=== PATIENT | female | born 1970 | race Caucasian/White ===

== ENCOUNTER 2023-02-22 14:06 | Outpatient (CLI) | payer BC, SELFPAY ==
[2023-02-22 14:36] LABS: PHA INR Fingerstick 6.2 (0.9-1.1)
== END 2023-02-22 14:38 ==
LOC: ACC 14:08
PROVIDERS: PCP Emergency Medicine; Visit Provider Emergency Medicine
DX: Z51.81 Encounter for therapeutic drug level monitoring (principal); Z79.01 Long term (current) use of anticoagulants; Z95.2 Presence of prosthetic heart valve
CPT/HCPCS: 85610; G0463

== ENCOUNTER 2023-03-03 15:40 | Outpatient (CLI) | payer BC, SELFPAY ==
[2023-03-03 16:12] LABS: PHA INR Fingerstick 2.3 (0.9-1.1)
== END 2023-03-03 16:17 ==
LOC: ACC 15:41
PROVIDERS: PCP Emergency Medicine; Visit Provider Emergency Medicine
DX: Z79.01 Long term (current) use of anticoagulants (principal)
CPT/HCPCS: 85610; 99211; G0463

== ENCOUNTER 2023-03-04 02:46 | Inpatient (IN) | payer BC, SELFPAY ==
[2023-03-04] VITALS (7 sets, daily range): BP systolic 122–154; BP diastolic 76–105; PULSE 87–100; RESP 14–18; TEMP 36.4–37; O2SAT 97–100; BMI 36.1; BMI 28.3
--- NOTE | 2023-03-04 03:06 | XR_ITS ---
PROCEDURE INFORMATION: Exam: XR Chest Exam date and time: 03/04/2023 3:16 AM Age: 52 years old Clinical indication: Shortness of breath; Prior surgery; Surgery date: 6+ months; Surgery type: Open heart/defibrillator; Additional info: SOA, volume overload TECHNIQUE: Imaging protocol: Radiologic exam of the chest. Views: 1 view. COMPARISON: No relevant prior studies available. FINDINGS: Tubes, catheters and devices: Left-sided single lead AICD. Overlying monitoring leads. Lungs: Lungs clear. Pleural spaces: No pleural thickening. Heart/Mediastinum: Valvular annuloplasty ring. Cardiac silhouette prominent but probably within normal range given the radiographic projection. Bones/joints: Sternotomy wires. Bony demineralization. IMPRESSION: No acute findings.
--- NOTE | 2023-03-04 03:17 | ECG_ITS ---
APPROVED REPORT Exam: Resting ECG HR:87 bpm ECG Measurements Heart Rate 87 AXES CA 156 P 70 QRSd 126 QRS 28 QT 393 T 83 QTc 438 Conclusion SINUS RHYTHM Incomplete LBBB Late R wave progression ABNORMAL ECG UNCONFIRMED REPORT Electronically signed by : Tommy John MD 03/04/2023 06:38:04
[2023-03-04 03:27] LABS: Basophils # 0.1 K/mm3 (0-0.2); Basophils % 0.6 % (0.1-2.0); Eosinophils # 0.1 K/mm3 (0.0-0.4); Eosinophils % 1.3 % (0.1-12.0); Hematocrit 37.2 % (37.0-47.0); Hemoglobin 11.7 g/dL (12.2-16.2); Mean Corpuscular HGB Conc 31.5 g/dL (31.8-35.4); Mean Corpuscular Hemoglobin 27.4 pg (27.0-31.2); Mean Corpuscular Volume 87.2 fl (81-99); Mean Platelet Volume 10.1 fl (7.4-10.4); Monocytes # 0.5 K/mm3 (0.1-1.0); Monocytes % 4.8 % (1.7-9.3); Neutrophils # 7.8 K/mm3 (1.8-7.8); Neutrophils % 82.4 % (37.0-80.0); Platelet Count 224 K/mm3 (142-424); Red Blood Count 4.26 M/mm3 (4.20-5.40); Red Cell Distribution Width 20.4 % (11.5-17.5); White Blood Count 9.4 K/mm3 (4.8-10.8)
[2023-03-04 03:32] LABS: Alanine Aminotransferase 87 U/L (12-78); Albumin Level 3.5 g/dl (3.5-5.0); Albumin/Globulin Ratio 1.1 (1.1-1.8); Alkaline Phosphatase 141 U/L (38-126); Anion Gap 17.3 mEq/L (5-15); Aspartate Amino Transferase 133 U/L (14-36); Bilirubin,Total 1.5 mg/dl (0.2-1.3); Blood Urea Nitrogen 77 mg/dl (7-17); Carbon Dioxide 24 mmol/L (22.0-30.0); Chloride 94 mmol/L (98-107); Creatinine Clearance Estimated 26 mL/min (50-200); Estimated Glomerular Filt Rate 12 ml/min (>60); GFR (African American) 14 ML/MIN (>60); Globulin 3.2 g/dL (1.3-3.2); Glucose 126 mg/dl (74-100); Potassium 5.3 mmoL/L (3.5-5.1); Prothrombin Time 18.7 seconds (10.1-12.5); Sodium 130 mmol/L (136-145); Total Protein,Serum 6.7 g/dl (6.3-8.2)
--- NOTE | 2023-03-04 03:32 | HMH.EDGENADL ---
Discharge Plan Disposition Chief Complaint: Shortness of Breath/Dyspnea Discharge ED Provider: Danial Wolf General Adult HPI General Chief complaint: Shortness of Breath/Dyspnea Stated complaint: soa, swollen Time Seen by Provider: 03/04/23 02:50 Mode of Arrival: Wheelchair Source of Information: Patient Limitations: No Limitations Description of Symptoms (Recalled from ER Triage Doc. by RN): pt reports feeling like she can not breathe. pt c/o shortness of breathe due to her CHF and kidney failure. pt reports that she is unable to sleep and just cant take it anymore. History of Present Illness HPI narrative: 52-year-old female history of COPD, ESRD, CHF with reported ejection fraction 20%, prior mechanical mitral valve replacement on warfarin presents with worsening shortness of breath and edema. Patient reports she was seen at [place] 1 week ago and diagnosed with a right-sided pneumonia for which she has been taking doxycycline as prescribed. Patient had a right upper extremity AV fistula procedure on Wednesday at [facility]. She is unsure what her baseline creatinine is. She reports that she has had tens of pounds of weight gain over the last week. She is still having urine output. Denies fevers chills or chest pain. Has been taking Bumex as prescribed. Related Data Home Medications Medication Instructions Recorded Confirmed albuterol sulfate 90 mcg/actuation inhalation 02/17/23 03/03/23 aerosol inhaler (Ventolin HFA) amiodarone 200 mg tablet 200 mg PO 02/17/23 03/03/23 aspirin 81 mg tablet,delayed 81 mg PO 02/17/23 03/03/23 release atorvastatin 40 mg tablet 40 mg PO 02/17/23 03/03/23 bumetanide 1 mg tablet 1 mg PO 02/17/23 03/03/23 fluticasone propionate 50 intranasal 02/17/23 03/03/23 mcg/actuation nasal spray,suspension metolazone 2.5 mg tablet 2.5 mg PO 02/17/23 03/03/23 metoprolol succinate 25 mg mg PO 02/17/23 03/03/23 tablet,extended release 24 hr pantoprazole 40 mg tablet,delayed mg PO 02/17/23 03/03/23 release ropinirole 4 mg tablet 4 mg PO 02/17/23 03/03/23 spironolactone 25 mg tablet 25 mg PO 02/17/23 03/03/23 trazodone 150 mg tablet 150 mg PO 02/17/23 03/03/23 warfarin 5 mg tablet 5 mg PO 02/17/23 03/03/23 bumetanide 2 mg tablet 2 mg PO .COMPLEX 03/03/23 03/03/23 doxycycline hyclate 100 mg capsule 100 mg PO BID 03/03/23 03/03/23 hydrocodone 5 mg-acetaminophen 325 1 tab PO Q8H 03/03/23 03/03/23 mg tablet magnesium oxide 400 mg (241.3 mg 400 mg PO DAILY 03/03/23 03/03/23 magnesium) tablet potassium chloride 20 mEq 20 meq PO DAILY PRN 03/03/23 03/03/23 tablet,extended release(part/cryst) spironolactone 50 mg tablet 50 mg PO DAILY 03/03/23 03/03/23 Previous Rx's Medication Instructions Recorded enoxaparin 80 mg/0.8 mL 75 mg (0.75 mL) SQ BID 4 days #6 mL 02/17/23 subcutaneous syringe (Lovenox) Allergies Allergy/AdvReac Type Severity Reaction Status Date / Time Codeine Allergy Unknown Uncoded 02/17/23 14:44 [facility] Disclaimer: The information contained in this section may have been updated after the patient was seen, as this information can be updated by other users. Medical History Asthma COPD (chronic obstructive pulmonary disease) Disorder of kidney Heart disease Restless leg syndrome Surgical History H/O: hysterectomy History of cardiac defibrillator placement History of open heart surgery pt has had 2 of these - 2020 Mechanical heart valve present Social History Smoking Status: Former smoker alcohol intake: never substance use type: marijuana current occupational status: employed Travel in the last 8 weeks: None ROS Obtained: Yes All systems reviewed & no additional complaints except as documented Physical Exam General General appearance: alert and in no apparent distress Head He
--- NOTE | 2023-03-04 03:37 | PC.NURSE ---
Critical lab results call to Dr. Wolf by lab staff. Critical result repeated back for confirmation
[2023-03-04 03:41] LABS: NT Pro Brain Natriuretic Pep. > 30000 pg/mL (0-125)
--- NOTE | 2023-03-04 03:42 | PC.NURSE ---
ED doctor on phone with hospitalist at this time
--- NOTE | 2023-03-04 03:43 | PC.NURSE ---
on phone with hospitalist
--- NOTE | 2023-03-04 05:09 | CA_ITS ---
APPROVED REPORT EXAM: Comprehensive 2D, Doppler, and color-flow Echocardiogram [facility] Consultant: Heather Sanchez CRT Ht: 5 ft 6 in Wt: 224lbs BSA: 2.10 BP: 126/95 mmHg Indications: COPD, Shortness of Breath, Peripheral Edema, Aug 2019 mv repair,October 2019 MVR, AICD 2020. ESRD, marijuana use, gained 10 lb in a week, EF 20% per pt on prev echo 2D Dimensions LVOT 1.95 cm (M/F) 1.5-2.5 LA Volume 75.90 mL LA Volume Index 36.14 mL/m2 (M/F) 16-34 M-Mode Dimensions RVDd 2.13 cm (0.9-2.6) LA Diam 5.09 cm (1.9-4.0) LVDd 6.57 cm (3.5-5.7) Ao Diam 3.77 cm (2.0-3.7) LVDs 5.92 cm (3.5-5.7) IVSd 1.71 cm (0.6-1.1) PWd 0.91 cm (0.6-1.1) EF (Teich) 21.10% FS 9.90% EDV (Teich) 221.30 mL TAPSE 1.13 (<1.7) ESV (Teich) 174.60 mL LV Diastology E Decel Time 150.00 (160-240 msec) E/A Ratio 2.6 MED E' 3.40 (< 7 cm/sec) MED A' 7.30 cm/s E'/MED E' Ratio 42.15 (>14) LAT E' 3.90 (<10 cm/sec) LAT A' 5.10 cm/s E/LAT E' Ratio 36.74 (>14) Aortic Valve AI PHT 570.00 ms AO Peak GR. 4.90 mmHg Mitral Valve MV E Max Sebastien. 143.00 (40-130 cm/s) MV A Velocity 55.00 (40-130 cm/s) E/A Ratio 2.63 MV Decel. Time 150.00 (160-240 ms) MV Mean Gr. 6.10 (<2mmHg) MV PHT 44.00 ms Pulmonary Valve PV Peak Velocity 197.00 (50-150 cm/s) Tricuspid Valve TR P. Velocity 315.00 cm/s RAP Estimate 10.00 mmHg RVSP 49.80 mmHg Left Ventricle Left ventricle is severely dilated. Left ventricular systolic function is severely decreased. There is normal left ventricular wall thickness. There is severe global hypokinesis present. There is grade III diastolic dysfunction. LVEF is 15-20%. Right Ventricle Right ventricle is mildly dilated. Right ventricle is mildly hypokinetic. There is a device lead in the RV. Atria Left atrium is mildly dilated. The right atrium size is mildly dilated. There is no Doppler evidence of interatrial shunt. Aortic Valve The aortic valve is normal in structure. There is no aortic valvular stenosis. No aortic regurgitation is present. Mitral Valve s/p mechanical mitral valve replacement. The mechanical valve is well-seated. The leaflets of the MV are difficult to visualize due to significant artifact, cannot conclusively evaluate leaflet mobility or thrombi/masses. There is mild mitral stenosis (mean MV gradient 6 mmHg at HR=90 bpm). Max E velocity 1.5 m/s. PHT=65 ms. Trace mitral regurgitation. Tricuspid Valve The tricuspid valve leaflets are thin and pliable. Mild tricuspid regurgitation. RVSP is 50-55 mmHg. Pulmonic Valve The pulmonary valve is normal in structure. Mild pulmonic regurgitation. Great Vessels The aortic root is normal in size. The ascending aorta is not wel visualized. The IVC is normal size but < 50% with respirophasic variation. RA pressure is estimated at 8 mmHg. Pericardium There is no pericardial effusion. Other Information Study Quality: Fair Conclusion Severe reduction in LV systolic function (LVEF 15%) Grade III diastolic dysfunction. Mild RV dilation with mild reduction in RV function. s/p mechanical MVR, difficult to evaluate MVR leaflet mobility or r/o masses or thrombi due to artifact. Mild MS. Trace MR. Mild TR Elevated RVSP 50-55 mmHg. Electronically signed by : Uzma Orellana, 03/04/2023 19:21:28
--- NOTE | 2023-03-04 05:13 | EXP.HP ---
History of Present Illness *Admission Date: 03/04/23 *Reason for visit:: chf exacerbation *History of present illness: 52 year old female presented to the ED for c/o lower extremity edema PMHX of COPD, ESRD, CHF with reported ejection fraction 20%, prior mechanical mitral valve replacement on warfarin presents with worsening shortness of breath and edema. Patient reports she was seen at [facility] 1 week ago and diagnosed with a right-sided pneumonia for which she has been taking doxycycline as prescribed. Patient had a right upper extremity AV fistula procedure on Wednesday at [facility]. Pt currently does not do dialysis. She states fistula was placed incase dialysis needed to be started. Creatinine is 4 upon admission. Pt states that is normal for [place] [address]. She is still having urine output with px bumex. Is to see Dr. Irizarry this morning for outpatient visit. She received 80 of lasix in the ED and had over 400 mL output. The ED physician spoke with the hospitalist team for further medical management. The patient was admitted to the medical floor in no acute distress. She has + 3 pitting edema. She has an echo pending and will have cardiology consult placed. [facility] Disclaimer: The information contained in this section may have been updated after the patient was seen, as this information can be updated by other users. Medical History Asthma COPD (chronic obstructive pulmonary disease) Disorder of kidney Heart disease Restless leg syndrome Surgical History H/O: hysterectomy History of cardiac defibrillator placement History of open heart surgery pt has had 2 of these - 2020 Mechanical heart valve present Social History (Updated 03/04/23 @ 05:34 by Zaira Woodward RN) Smoking Status: Former smoker alcohol intake: never substance use type: marijuana current occupational status: employed Travel in the last 8 weeks: None Review of Systems *Cardiovascular Cardiovascular: Reports system reviewed and no additional complaints, except as documented and Reports leg edema *Respiratory Respiratory: Reports system reviewed and no additional complaints, except as documented *Gastrointestinal Gastrointestinal: Reports system reviewed and no additional complaints, except as documented *Genitourinary Genitourinary: Reports system reviewed and no additional complaints, except as documented *Musculoskeletal Musculoskeletal: Reports limited range of motion and Reports myalgias *Neurologic Neurologic: Reports system reviewed and no additional complaints, except as documented Meds Home Medications and Allergies Home Medications Medication Instructions Recorded Confirmed Type albuterol sulfate 90 mcg/actuation 1 puff inhalation Q4-6H PRN 02/17/23 03/04/23 History aerosol inhaler (Ventolin HFA) Shortness Of Breath Or Wheezing amiodarone 200 mg tablet 200 mg PO DAILY Heart Rhythm 02/17/23 03/04/23 History aspirin 81 mg tablet,delayed 81 mg PO DAILY Blood Thinner 02/17/23 03/04/23 History release atorvastatin 40 mg tablet 40 mg PO DAILY Cholesterol 02/17/23 03/04/23 History fluticasone propionate 50 1 spray intranasal DAILY Allergies 02/17/23 03/04/23 History mcg/actuation nasal spray,suspension metolazone 2.5 mg tablet 2.5 mg PO DAILY Fluid / Swelling 02/17/23 03/04/23 History metoprolol succinate 25 mg 12.5 mg PO DAILY Heart Rate 02/17/23 03/04/23 History tablet,extended release 24 hr pantoprazole 40 mg tablet,delayed 40 mg PO DAILY Acid Reflux 02/17/23 03/04/23 History release ropinirole 4 mg tablet 4 mg PO HS Restless Leg Syndrome 02/17/23 03/04/23 History trazodone 150 mg tablet 150 mg PO HS Sleep 02/17/23 03/04/23 History warfarin 5 mg tablet 2.5 mg PO MOWEFR Blood 02/17/23 03/04/23 History Thinner/Mechanical Valve bumetanide 2 mg tablet 2 mg PO .COMPLEX Fluid / Swelling 08
--- NOTE | 2023-03-04 05:38 | PC.NURSE ---
Pt states she is unsure of her home medications and dosages, family member in room states he will go get home med list that is at their home this am.
--- NOTE | 2023-03-04 07:46 | HMH.PHAINT1 ---
Pharmacy Intervention Comments: Medication history complete, medications were verified with fill history. - Kelly Reese, PharmD candidate 2023
[2023-03-04 09:29] LABS: Chloride 93 mmol/L (98-107); Potassium 4.6 mmoL/L (3.5-5.1); Sodium 128 mmol/L (136-145)
[2023-03-04 09:32] LABS: Anion Gap 23.6 mEq/L (5-15); Blood Urea Nitrogen 78 mg/dl (7-17); Calcium 8.9 mg/dl (8.4-10.2); Carbon Dioxide 16 mmol/L (22.0-30.0); Creatinine Clearance Estimated 20 mL/min (50-200); Estimated Glomerular Filt Rate 11 ml/min (>60); GFR (African American) 14 ML/MIN (>60); Glucose 171 mg/dl (74-100)
[2023-03-04 10:08] LABS: NT Pro Brain Natriuretic Pep. 47100 pg/mL (0-125)
--- NOTE | 2023-03-04 10:22 | PC.NURSE ---
Medical records requested from [facility]
--- NOTE | 2023-03-04 10:38 | CA_ITS ---
FINAL REPORT CLINICAL HISTORY: S/P AV FISTULA PLACEMENT RUE WEDNESDAY,BRUISING AND PAIN RUE,PT HAS REDUCED EF COMPARISON: None FINDINGS: Spectral and Doppler waveform evaluations of the right arm was performed. Spectral analysis was performed. There is diminished flow within the fistula concerning for partial or complete thrombus. There is visualized thrombus within the fistula. IMPRESSION: Findings concerning for partial or complete thrombus with partly visualized thrombus within the fistula. Angiography recommended for further evaluation. Reviewed, Interpreted and Dictated by Lucio Fairchild MD Transcribed by Viry Hernandez Authenticated and [facility]
--- NOTE | 2023-03-04 10:59 | EXP.CARD.CON ---
History of Present Illness History of Present Illness Consult date: 03/04/23 Requesting physician: Nolan Colon Consult reason: shortness of breath Chief complaint: Volume overload, chf, esrd History of present illness: 52 year old female with past medical hx of of COPD, CAD, ESRD, HFrEF of 20%, prior mechanical mitral valve replacement on warfarin presented to [facility] hospital with complaint of with worsening shortness of breath and edema. Patient reports she was seen at [place] 1 week ago and diagnosed with a right-sided pneumonia for which she has been taking doxycycline as prescribed. Patient had a right upper extremity AV fistula procedure on Wednesday at [place]. Pt currently does not do dialysis. She states fistula was placed incase dialysis needed to be started. Creatinine is 4 upon admission. Pt states that is normal for [place] [address]. She is still having urine output with px bumex. Is to see Dr. Irizarry this morning for outpatient visit. She received 80 of lasix in the ED and had over 400 mL output. The ED physician spoke with the hospitalist team for further medical management. [facility] Disclaimer: The information contained in this section may have been updated after the patient was seen, as this information can be updated by other users. Medical History Asthma COPD (chronic obstructive pulmonary disease) Disorder of kidney Heart disease Restless leg syndrome Surgical History H/O: hysterectomy History of cardiac defibrillator placement History of open heart surgery pt has had 2 of these - 2020 Mechanical heart valve present Social History (Updated 03/04/23 @ 05:34 by Zaira Woodward RN) Smoking Status: Former smoker alcohol intake: never substance use type: marijuana current occupational status: employed Travel in the last 8 weeks: None Review of Systems Review of Systems Review of systems:: pertinent systems reviewed and negative unless documented below *Cardiovascular Cardiovascular: Reports dyspnea *Respiratory Respiratory: Reports dyspnea *Musculoskeletal Comments: weakness *Neurologic Neurologic: Reports system reviewed and no additional complaints, except as documented Exam Data for Last 24 hours Vital signs and Labs for Last 24 Hours: Temp Pulse Resp BP Pulse Ox O2 Del Method 98.4 F 94 H 18 154/100 H 98 Room Air 03/04/23 08:00 03/04/23 08:00 03/04/23 08:00 03/04/23 08:00 03/04/23 08:00 03/04/23 10:01 Laboratory Results - last 24 hr 03/04/23 03:02: WBC 9.4, RBC 4.26, Hgb 11.7 L, Hct 37.2, MCV 87.2, MCH 27.4, MCHC 31.5 L, RDW 20.4 H, Plt Count 224, MPV 10.1, Neut % (Auto) 82.4 H, Lymph % (Auto) 11.0, Cavalier % (Auto) 4.8, Eos % (Auto) 1.3, Baso % (Auto) 0.6, Neut # (Auto) 7.8, Lymph # (Auto) 1.0, Cavalier # (Auto) 0.5, Eos # (Auto) 0.1, Baso # (Auto) 0.1, PT 18.7 H, INR 1.80 H, Sodium 130 L, Potassium 5.3 H, Chloride 94 L, Carbon Dioxide 24, Anion Gap 17.3 H, BUN 77 H, Creatinine 4.00 H, Estimated Creat Clear 26, Estimated GFR 12 L*, Est GFR ( Amer) 14 L*, Glucose 126 H, Calcium 9.0, Total Bilirubin 1.5 H, AST 133 H, ALT 87 H, Alkaline Phosphatase 141 H, NT-Pro-B Natriuret Pep > 27724 H, Total Protein 6.7, Albumin 3.5, Globulin 3.2, Albumin/Globulin Ratio 1.1 03/04/23 08:55: Sodium 128 L, Potassium 4.6, Chloride 93 L, Carbon Dioxide 16 L, Anion Gap 23.6 H, BUN 78 H, Creatinine 4.10 H, Estimated Creat Clear 20, Estimated GFR 11 L*, Est GFR ( Amer) 14 L*, Glucose 171 H D, Calcium 8.9, NT-Pro-B Natriuret Pep 66608 H I & O for Last 24 hours: Intake & Output 03/01/23 03/02/23 03/03/23 03/04/23 23:59 23:59 23:59 23:59 Weight 176 lb 5 oz Constitutional Constitutional: no acute distress *Routine Respiratory Exam Respiratory: Present CTA bilaterally and symmetric chest movement *Routine Cardiovascular Exam Cardiovascular: Present RRR, N
[2023-03-04 11:42] LABS: Basophils % 0.4 % (0.1-2.0); Eosinophils # 0.1 K/mm3 (0.0-0.4); Eosinophils % 0.7 % (0.1-12.0); Hemoglobin 12.3 g/dL (12.2-16.2); Lymphocytes # 0.8 K/mm3 (0.7-4.5); Lymphocytes % 8.3 % (10-50); Mean Corpuscular HGB Conc 32.3 g/dL (31.8-35.4); Mean Corpuscular Hemoglobin 28.6 pg (27.0-31.2); Mean Corpuscular Volume 88.5 fl (81-99); Mean Platelet Volume 8.8 fl (7.4-10.4); Monocytes # 0.6 K/mm3 (0.1-1.0); Monocytes % 5.8 % (1.7-9.3); Neutrophils # 8.3 K/mm3 (1.8-7.8); Platelet Count 190 K/mm3 (142-424); Red Blood Count 4.29 M/mm3 (4.20-5.40); White Blood Count 9.8 K/mm3 (4.8-10.8)
[2023-03-04 11:45] LABS: MANUAL DIFFERENTIAL MANUAL DIFFERENTIAL (MANUAL DIFF)
[2023-03-04 12:03] LABS: Lymphocytes % 12 % (10-50); Monocytes % 1 % (2-9); Neutrophils % 87 % (42-76); Platelet Estimate Normal; RBC Morphology Normal; Total Cells Counted 100
--- NOTE | 2023-03-04 16:04 | EXP.DC.SUM ---
General Admission date:: 03/04/23 Discharge date: 03/04/23 HPI HPI HPI: 52 year old female presented to the ED for c/o lower extremity edema PMHX of COPD, ESRD, CHF with reported ejection fraction 20%, prior mechanical mitral valve replacement on warfarin presents with worsening shortness of breath and edema. Patient reports she was seen at [place] 1 week ago and diagnosed with a right-sided pneumonia for which she has been taking doxycycline as prescribed. Patient had a right upper extremity AV fistula procedure on Wednesday at [place]. Pt currently does not do dialysis. She states fistula was placed incase dialysis needed to be started. Creatinine is 4 upon admission. Pt states that is normal for [place] [address]. She is still having urine output with px bumex. Is to see Dr. Irizarry this morning for outpatient visit. She received 80 of lasix in the ED and had over 400 mL output. The ED physician spoke with the hospitalist team for further medical management. The patient was admitted to the medical floor in no acute distress. She has + 3 pitting edema. She has an echo pending and will have cardiology consult placed. Hospital Course Hospital Course Hospital Course: 52 year old female presented to the ED for c/o lower extremity edema. Patient reports she was seen at [place] 1 week ago and diagnosed with a right-sided pneumonia for which she has been taking doxycycline as prescribed. Patient had a right upper extremity AV fistula procedure on Wednesday at [place]. Pt currently does not do dialysis. She states fistula was placed incase dialysis needed to be started. Creatinine is 4 upon admission. Pt states that is normal for [place] [address]. She is still having urine output with px bumex. Was initiated on diuresis during admission. Had good response with over 800 cc of output. Subjectively feeling somewhat better. Ultrasound of right upper extremity performed showing thrombus in cephalic vein. Concern for thrombosis of AV fistula. Given complexity of patient's medical condition including her heart failure, mechanical valve, thrombosed AV fistula, volume overload, renal failure, [facility] was contacted for assistance in care and transfer. Patient graciously excepted. Will be transferred for further management. Problems addressed as follows: Acute on chronic HFrEF NYHA III Hx of MVR on Coumadin Moderate TR Grade III Diastolic Dysfunction -Presented with dyspnea on exertion and orthopnea. BNP severely elevated at 47,000. Found to have 3+ pitting edema on exam. Started on IV Lasix with 80 mg IV once followed by 40 mg twice daily. Patient had greater than 800 cc of urine output since admission. Echo obtained from [facility] as well as performed again at our institution. EF 15%. Preliminary at our facility showing EF approximately the same. Official read still pending. No comment at this time of thrombus on mechanical mitral valve. Cardiology was consulted and assisted with care during admission. Strict I's and O's monitored. No IVA or ARB at this time for blood pressure due to end-stage renal disease. Was started on isosorbide dinitrate 20 mg 3 times a day and hydralazine 25 mg 3 times a day for her hypertension. Her Aldactone is on hold due to her hyperkalemia. Jardiance is contraindicated due to her end-stage renal disease. Additionally held her beta-evan due to acute CHF exacerbation. Coumadin was resumed at 5 mg with 1 dose given. Initiated on Lovenox 80 mg x 1. INR this morning of 1.8. Hx of CAD -Reports history of stents, awaiting medical records from [facility]. EKG normal sinus rhythm with incomplete left bundle branch block. No chest pain. Continued aspirin 81 mg daily. Beta-evan and statin on hold. ESRD Hyperkalemia Hyponatremia -Fistula placed on Wednesday by Dr. Arrington at [place]. Not currently receiving dialysis. Right upper extremity AV fistula is warm and firm. Concern for
--- NOTE | 2023-03-04 16:45 | PC.NURSE ---
[facility] called and the stated they would return my phone call to get report on Corrie Stiles.
--- NOTE | 2023-03-04 17:32 | PC.NURSE ---
report called to Danyelle Velasquez RN [facility].
[2023-03-04 17:34] LABS: Chloride 91 mmol/L (98-107); Sodium 132 mmol/L (136-145)
[2023-03-04 17:37] LABS: Calcium 9.5 mg/dl (8.4-10.2); Carbon Dioxide 25 mmol/L (22.0-30.0); Creatinine Clearance Estimated 19 mL/min (50-200); Estimated Glomerular Filt Rate 11 ml/min (>60); GFR (African American) 13 ML/MIN (>60); Glucose 86 mg/dl (74-100)
[2023-03-04 17:51] LABS: Blood Urea Nitrogen 80 mg/dl (7-17)
== END 2023-03-04 18:40 | disposition short-term general hospital (02) | DRG 291 ==
LOC: ER 02:59 → 2ND 04:09
PROVIDERS: Nurse Practitioner Critical Care Medicine; Admitting Provider Internal Medicine Adolescent Medicine; Emergency Provider Emergency Medicine; PCP Emergency Medicine; Visit Provider Internal Medicine Adolescent Medicine
DX: I50.43 Acute on chronic combined systolic (congestive) and diastolic (congestive) heart failure (principal); N18.6 End stage renal disease; T82.868A Thrombosis due to vascular prosthetic devices, implants and grafts, initial encounter; J44.9 Chronic obstructive pulmonary disease, unspecified; Z79.01 Long term (current) use of anticoagulants; Z95.2 Presence of prosthetic heart valve; Z79.899 Other long term (current) drug therapy; I13.2 Hypertensive heart and chronic kidney disease with heart failure and with stage 5 chronic kidney disease, or end stage renal disease; E87.5 Hyperkalemia; Z95.810 Presence of automatic (implantable) cardiac defibrillator; Z87.891 Personal history of nicotine dependence; Y83.1 Surgical operation with implant of artificial internal device as the cause of abnormal reaction of the patient, or of later complication, without mention of misadventure at the time of the procedure; Z95.1 Presence of aortocoronary bypass graft
CPT/HCPCS: 36415; 71045; 80048; 80053; 83880; 85007; 85025; 85610; 93005; 93306; 93931; 99211; 99291; G0463

== ENCOUNTER → 2023-03-16 16:10 | Outpatient (CLI) | payer BC, SELFPAY ==
[2023-03-16 17:35] LABS: Iron 39 ug/dL (37-170)
[2023-03-16 17:46] LABS: Total Iron Binding Capacity 386 ug/dL (265-497)
[2023-03-16 17:47] LABS: NT Pro Brain Natriuretic Pep. 27800 pg/mL (0-125)
[2023-03-16 18:08] LABS: Thyroid Stimulating Hormone 8.54 uIU/mL (0.465-4.68)
[2023-03-16 18:12] LABS: Ferritin 28.1 ng/ml (11.1-264)
[2023-03-17 15:14] LABS: Free T4 (Free Thyroxine) 2.26 ng/dl (0.78-2.19)
[2023-03-18 10:44] LABS: HBsAg Screen Negative (Negative); HCV Ab Non Reactive (Non Reactive); HIV Screen 4th Generation wRfx Non Reactive (Non Reactive); Hep A Ab, IGM Negative (Negative); Hep B Core Ab, IgM Negative (Negative)
[2023-03-18 12:14] LABS: Anti-Centromere B Antibodies <0.2 AI (0.0-0.9); Anti-DNA (DS) Ab Qn 1 IU/mL (0-9); Anti-Jo-1 <0.2 AI (0.0-0.9); Anti-Smith Antibody <0.2 AI (0.0-0.9); Antichromatin Antibodies <0.2 AI (0.0-0.9); Antiscleroderma-70 Antibodies <0.2 AI (0.0-0.9); RNP Antibodies <0.2 AI (0.0-0.9); Sjogren's Anti-SS-A <0.2 AI (0.0-0.9); Sjogren's Anti-SS-B <0.2 AI (0.0-0.9)
== END ==
PROVIDERS: Nurse Practitioner; PCP Emergency Medicine; Visit Provider Internal Medicine
DX: I25.10 Atherosclerotic heart disease of native coronary artery without angina pectoris (principal); I11.0 Hypertensive heart disease with heart failure; I50.20 Unspecified systolic (congestive) heart failure; E78.5 Hyperlipidemia, unspecified; J44.9 Chronic obstructive pulmonary disease, unspecified; N18.6 End stage renal disease; D50.9 Iron deficiency anemia, unspecified; R79.89 Other specified abnormal findings of blood chemistry; Z11.4 Encounter for screening for human immunodeficiency virus [HIV]
CPT/HCPCS: 36415; 80074; 82728; 83540; 83550; 83880; 84439; 84443; 86225; 86235; 86703; G0432

== ENCOUNTER → 2023-03-22 10:56 | Outpatient (CLI) | payer BC, SELFPAY ==
[2023-03-22 11:33] LABS: Basophils % 0.2 % (0.1-2.0); Eosinophils # 0.2 K/mm3 (0.0-0.4); Eosinophils % 1.9 % (0.1-12.0); Hematocrit 35.1 % (37.0-47.0); Hemoglobin 10.6 g/dL (12.2-16.2); Lymphocytes # 0.7 K/mm3 (0.7-4.5); Lymphocytes % 8.4 % (10-50); Mean Corpuscular HGB Conc 30.1 g/dL (31.8-35.4); Mean Corpuscular Hemoglobin 25.8 pg (27.0-31.2); Mean Corpuscular Volume 85.7 fl (81-99); Mean Platelet Volume 10.1 fl (7.4-10.4); Monocytes # 0.3 K/mm3 (0.1-1.0); Monocytes % 3.9 % (1.7-9.3); Neutrophils # 7.3 K/mm3 (1.8-7.8); Neutrophils % 85.6 % (37.0-80.0); Platelet Count 160 K/mm3 (142-424); Red Blood Count 4.09 M/mm3 (4.20-5.40); Red Cell Distribution Width 20.4 % (11.5-17.5); White Blood Count 8.5 K/mm3 (4.8-10.8)
[2023-03-22 11:51] LABS: Alanine Aminotransferase 20 U/L (12-78); Albumin Level 3.2 g/dl (3.5-5.0); Alkaline Phosphatase 115 U/L (38-126); Anion Gap 13.4 mEq/L (5-15); Aspartate Amino Transferase 26 U/L (14-36); Bilirubin,Direct 0.6 mg/dl (0.0-0.4); Bilirubin,Indirect 0.8 mg/dL (0.0-0.9); Bilirubin,Total 1.4 mg/dl (0.2-1.3); Bilirubin,Unconjugated 0.8 mg/dL (0.0-1.1); Blood Urea Nitrogen 57 mg/dl (7-17); Calcium 8.1 mg/dl (8.4-10.2); Carbon Dioxide 31 mmol/L (22.0-30.0); Chloride 92 mmol/L (98-107); Chol/HDL Ratio 2.2 (1-3.5); Cholesterol 138 mg/dl (140-200); Estimated Glomerular Filt Rate 16 ml/min (>60); GFR (African American) 20 ML/MIN (>60); Glucose 97 mg/dl (74-100); HDL Cholesterol 64 mg/dl (40-60); Magnesium 1.3 mg/dl (1.6-2.3); Sodium 134 mmol/L (136-145); Total Protein,Serum 6.1 g/dl (6.3-8.2); Triglycerides 83 mg/dl (30-150); VLDL Cholesterol 17 mg/dL (0-40)
[2023-03-22 11:59] LABS: MANUAL DIFFERENTIAL MANUAL DIFFERENTIAL (MANUAL DIFF)
[2023-03-22 12:01] LABS: Potassium 2.4 mmoL/L (3.5-5.1)
[2023-03-22 12:02] LABS: Direct LDL Cholesterol 54.73 mg/dL (100-129)
[2023-03-22 12:07] LABS: Free T4 (Free Thyroxine) 1.81 ng/dl (0.78-2.19)
[2023-03-22 12:22] LABS: Thyroid Stimulating Hormone 9.07 uIU/mL (0.465-4.68)
[2023-03-22 16:00] LABS: Hypochromasia 1+; Lymphocytes % 5 % (10-50); Monocytes % 1 % (2-9); Neutrophils % 94 % (42-76); Platelet Estimate Normal; Total Cells Counted 100
== END ==
PROVIDERS: PCP Emergency Medicine; Visit Provider Internal Medicine
DX: I25.10 Atherosclerotic heart disease of native coronary artery without angina pectoris (principal); I10 Essential (primary) hypertension; I50.20 Unspecified systolic (congestive) heart failure; E78.5 Hyperlipidemia, unspecified; J44.9 Chronic obstructive pulmonary disease, unspecified; N18.6 End stage renal disease; Z95.2 Presence of prosthetic heart valve; Z95.810 Presence of automatic (implantable) cardiac defibrillator
CPT/HCPCS: 36415; 80048; 80061; 80076; 83735; 84439; 84443; 85007; 85025

== ENCOUNTER 2025-04-11 10:33 | Outpatient (CLI) | payer MEDICARE, SELFPAY ==
--- OUTSIDE RECORDS SUMMARY | 2025-02-23 07:51 | XMS_ITS | Encounter Summary ---
Author Organization Healthcare Address [address] [id number] Care Team Providers Care Can Filling And Closing Machine Tender Name Role Phone Az David MD Primary Care Provider + [phone] Reason for Referral * Consultation (Routine) - Authorized Specialty Diagnoses / Procedures Referred By Contac t Referred To Contact Pharmacy / Cardiology Diagnoses Acute decompensated heart failure Jocy Kennedy APRN, DNP [address] [place] [address] Phone: tel: fax: [facility] [address] [facility] [address] [place] [address] Phone: tel: fax: Referral ID Status Reason Start Date Expiration Date Visits Requested Visits Authorized [id number] Authorized Specialty Services Required 03/06/2025 09/05/2026 1 1 Reason for Visit * Reason Comments Shortness of Breath * Auth/Cert (Routine) Specialty Diagnoses / Procedures Referred By Contac t Referred To Contact Diagnoses Acute on chronic diastolic heart failure ESRD needing dialysis ([facility]/HCC) Acute decompensated heart failure Oneal Green MD [address] [place] [address] Phone: tel: fax: [facility] [address] [place] [address] Phone: tel: Referral ID Status Reason Start Date Expiration Date Visits Re quested Visits Authorized [id number] 1 1 Encounter Details Date Type Department Care Team (Latest Contact Info) Description 02/23/2025 7:51 AM EDT - 03/01/2025 4:36 PM EDT Hospital Encounter [facility] [address] [place] [address] German Richardson MD [address] [place] [address] Oneal Green MD [address] [place] [address] Nancy Brambila MD [address] [place] [address] ESRD needing dialysis ([facility]) (Primary Dx); Acute on chronic diastolic heart failure ([facility]); Acute decompensated heart failure ([facility]) Discharge Disposition: Home or Self Care Social History Tobacco Use Types Packs/Day Years Used Date Smoking Tobacco: Former Cigarettes Q uit: 2020 Smokeless Tobacco: Never Alcohol Use Standard Drinks/Week Comments Not Currently 0 (1 standard drink = 0.6 oz pur e alcohol) Overall Financial Resource Strain (CARDIA) Answe r Date Recorded How hard is it for you to pa y for the very basics like food, housing, medical care, and heating? Somewhat hard 11/16/2024 PHQ-2 Answer Date Recorded Patient Health Questionnaire-2 Score 0 02/01/2025 PHQ-9 Answer Date Recorded Patient Health Questionnaire-9 Score 5 06/15/2024 Humiliation, Afraid, Rape, and Kick questionnair e Answer Date Recorded Within the last year, have y ou been afraid of your partner or ex-partner? No 02/26/2025 Within the last year, have y ou been humiliated or emotionally abused in other ways by your partner or ex-partner? No Within the last year, have y ou been kicked, hit, slapped, or otherwise physically hurt by your partner or ex-partner? No 02/26/2025 Within the last year, have y ou been raped or forced to have any kind of sexual activity by your partner or ex-partner? No 02/26/2025 Hunger Vital Sign Answer Date Recorded Within the past 12 months, y ou worried that your food would run out before you got the money to buy more. Sometimes true Within the past 12 months, t he food you bought just didn't last and you didn't have money to get more. Sometimes true PRAPARE - Transportation Answer Date Re corded In the past 12 months, has l ack of transportation kept you from medical appointments or from getting medications? No 02/09 In the past 12 months, has l ack of transportation kept you from meetings, work, or from getting things needed for daily living? No 02/26/2025 Housing Stability Vital Sign Answer [place] e Recorded In the last 12 months, was t here a time when you were not able to pay the mortgage or rent on time? No 02/26/2025 In the past 12 months, how m any times have you moved where you were living? 0 02/26/2025 At any time in the past 12 m [facility], were you homeless or living in a [place] facility (including now)? No 02/26/2025 CAGE ASSESSMENT Answer Date Recorded Cage unable to access Not on file 03/23/2023 Cage max number of drinks Not on file 2022 Cage Beverages a week Not on file 03/23/2023 Have you ever felt you should CUT down on your d rinking? 0 03/23/2023 Have you been ANNOYED by people criticizing your drinking? 0 03/23/2023 Have you felt GUILTY about your drinking? 0 03/23/2023 Have you had a drink first t mohamud in the morning ([employer]) to steady your nerves or to get rid of a hangover? 0 03/23/2023 CAGE Questionnaire Score 0 023 Utilities Answer Date Recorded In the past 12 months has th e electric, gas, oil, or water company threatened to shut off services in your home? No 02/26/2025 Comments No Sex and Gender Information Value Date Recorded Sex Assigned at Not on file Legal Sex Female 8:12 PM EDT Gender Identity Not on file Sexual Orientation Not on file documented as of this encounter Last Filed Vital Signs Vital Sign Reading Time Taken Comments Blood Pressure 104/69 03/01/2025 4:08 PM EDT Pulse 80 03/01/2025 4:08 PM EDT Temperature 36.5 C (97.7 F) 03/01/2025 4:08 PM EDT Respiratory Rate 21 03/01/2025 4:08 PM EDT Oxygen Saturation 96% 03/01/2025 4:08 PM EDT Inhaled Oxygen Concentration - - Weight 76.5 kg (168 lb 10.4 oz) 025 11:43 AM EDT Height 167.6 cm (5' 5.98 ) 02/23/2025 1 0:29 PM EDT Body Mass Index 27.23 02/23/2025 10:29 PM EDT documented in this encounter Functional Status * Does this person have serious difficulty walking or climbing stairs? Answer Date of Assessment Author No 07/15/2023 4:16 PM EST * Calculated C-SSRS Risk Score (Lifetime/Recent) Answer Date of Assessment Author No Risk Indicated 02/28/2025 8:01 PM EDT Roman Tamez RN * Question Answer Date of Assessment Author 1. Wish to be (Past 1 Month) No 025 8:01 PM EDT Roman Tamez RN 2. Non-Specific Active Suici leidy Thoughts (Past 1 Month) No 02/28/2025 8:01 PM EDT Henrik Tamez RN 6. Suicidal Behavior (Lifetime) No 8:01 PM EDT Roman Tamez RN documented as of this encounter Medications at Time of Discharge Acetaminophen Extra Strength 500 MG tablet Take 1 tablet by mouth every 6 hours as needed. 08/25/2022 aMILoride (Midamor) 5 MG tablet Take 1 tablet (5 mg) by mouth 1 (one) time each day. 30 tablet 1 05/29/2024 Aspirin Low Dose 81 MG EC tablet Take 1 tablet by mouth daily. 02/10/2023 atorvastatin (Lipitor) 40 MG tablet Take 1 tablet (40 mg) by mouth every night. 30 tablet 3 05/29/2024 bumetanide (Bumex) 1 MG tablet Take 3 tablets by mouth 2 times a day. Please take 3 mg twice daily on your NON dialysis days (Wednesday/ y/Wednesday/ y) 180 tablet 11 03/01/2025 calcitriol (Rocaltrol) 0.5 MCG capsule Take 1 capsule by mouth 3 times a week. cetirizine (ZyrTEC) 10 MG tablet Take 1 tablet (10 mg) by mouth every night. 30 tablet 11 04/07/2023 fluticasone (Flonase) 50 MCG/ACT nasal spray Administer 2 sprays into each nostril daily as needed for allergies. iron sucrose 200 mg in sodium chloride 0.9 % 90 mL IVPB Infuse 200 mg into a venous catheter. 10/26/2024 magnesium oxide (Mag-Ox) 400 (240 Mg) MG tablet Take 1 tablet by mouth daily. 30 tablet 11 03/02/2025 methIMAzole (Tapazole) 10 MG tablet Take 1 tablet (10 mg) by mouth 1 (one) time each day. 30 tablet 06/06/2024 metoprolol succinate XL (Toprol-XL) 50 MG 24 hr tablet Take 1 tablet by mouth 2 times a day. Do not crush or chew. 60 tablet 11 03/01/2025 pantoprazole (Protonix) 40 MG EC tablet Take 1 tablet by mouth daily before breakfast. Do not crush, chew, or split. polyethylene glycol (Miralax) 17 g packet Take 17 g by mouth 2 times a day. 180 packet 3 11/24/2024 senna (Senokot) 8.6 MG tablet Take 2 tablets by mouth nightly. 180 tablet 3 11/24/2024 sodium bicarbonate 650 MG tablet Take 2 tablets (1,300 mg) by mouth 1 (one) time each day. 30 tablet 3 05/30/2024 Velphoro 500 MG chewable tablet Chew 1 tablet 3 (three) times a day. 04/20/2024 warfarin (Coumadin) 4 MG tablet Take 1 tablet by mouth daily. Please take 4 mg every day starting Wednesday03/02/2025 30 tablet 11 03/01/2025 08/21/202 6 isosorbide-hydrAL AZINE (BiDil) 20-37.5 MG tablet Take 1 tablet by mouth 3 times a day. 90 tablet 03/01/2025 5 potassium chloride CR (Klor-Con M20) 20 MEQ ER tablet Take 1 tablet by mouth daily as needed (take with bumex on NON dialysis days). Do not crush or chew. Please only take on Wednesday/ /Wednesday/Wednesday on your NON Dialysis days 30 tablet 03/01/2025 5 documented as of this encounter Miscellaneous Notes * Discharge Summary - Jocy Kennedy APRN, DNP - 03/01/2025 4:17 PM EDT Hospitalization Admit Date/Time: 02/23/2025 7:51 AM Admitting Attending: Oneal Green Discharge Date: 03/01/2025 Discharge Attending Physician: Nancy Brambila MD PCP name and Address: Az David MD (Inactive) [address] [place] [address] / [address] [address] Referring provider name and address: No referring provider defined for this encounter. Chief Concern, Brief History of Present Illness Awais Smith is a 54 y.o. female with a PMH to include: HFrEF s/t NICM, severe MR s/p MV repair(2019), followed by mechanical MV replacement (2019), CAD s/p RUBEN to LAD (2020), ICD in place (2020), PAF, and ESRD previously on PD recently transitioned to iHD. Patient presents to ED today 02/23/25 for OBRIEN, shortness of breath, and orthopnea. Patient was recently admitted 11/15-11/24 for progressively worsening abdominal pain in setting of herPD catheter being non-functional for 4-[address] scans demonstrated multiple intra-abdominal and pelvic abscesses for which she completed a 14 day course of antibiotics. Nephrology was consulted in setting of non functioning PD catheter it was subsequently removed and an tunneled HD catheter was placed. Patient was set up with iHD chair prior to discharge. Also notable during hospitalization waspatients subtherapeutic INR for which she was briefly on a heparin gtt to bridge warfarin. Patient was seen in clinic on 7/24 by Hollie Rodriguez APRN. Patient reported OBRIEN and LE edema with weight gain every few months. She did not note shortness of breath but did express concern about abdominal swelling. At time of clinci vist patient reports that her iHD sessions had been stopped early the day before s/t cramping.. Patient presented to the ED today after 2-3 weeks of progressive shortness of breath, dyspnea on exertion, abdominal swelling. Patient reports that her worsening symptomology correlates with decreased fluid removal during iHD session. Patient was getting 3L fluid removal in beginning of her iHD session; however 3 weeks ago she started to experience cramping that limited toleration of more than 2L. Patient was set to get iHD today however she chose to present to the ED instead due to her symptoms. Patient denies missing any dialysis sessions. She denies fever, chill, chest/abdominal pain. She denies any recent sick contacts. Notable labs on admission: Na 133, Scr 2.94, nt probnp 41K. Patient will admitted to [facility] for further workup and evaluation. -sob, obrien, dyspneic with convo, worsening orthpopnea -about 2-3 week ago bad cramping so decrease fluid removal from 3L to 2L. That's around the time symptoms worsened -tried to increase removal on Wednesday but cramping was too bad. Never had issues with bp -supposed to have hd today but symptoms worse so cam to ed - no cp/bp, no issues with bm, no fever chills -2mg bid on non hd days - Patient switched to regular home iHD schedule of MWF and will take po diuretic on her NON Dialysis days. Hospital Course Inpatient Plan: Ms. Smith is sitting up in bed. ORA. Tolerating HD. Denies any issues overnight. Continues to report improvement in symptomology, she denies shortness of breath, OBRIEN; resolved conversational dyspnea. INR 2.7; remains on warfarin with heparin gtt bridge now off. Patient is agreeable to go home - She is scheduled to have iHD on MWF - which is her home regimen. Order sent to re-refer to coumadin clinic. Patient INR goal 2.5-3.5, for valve, currently on 4 mg daily. Patient will be called with appointment. Acute on Chronic HFrEF s/t NICM NYHA IV Stage C -Significantly fluid volume overloaded -Home GDMT: toprol 100mg BID -Bumex 2mg BID daily though patient reports she is only taking it on non HD days -No IVA/ARB/ARNI/SGLT2i s/t ESRD -Bidil 20mg-37.5 2 pills TID -RIA- LVED 20-25%, RV dilated, RVSF moderately reduced, no thrombus seen, mechanical MV well seated, echogenic mass extending along the MV prosthetic ring, small mobile echogenic are consistent with thrombus, mild TR, trace HI, -TTE 02/01/25- no mass or thrombus seen, LVEF 22%, global hypokinesis of LV, RV dilated, RVSF reduced, LV size severely increased, trace AR, mechanical MV well seated, MR present, severe TR, mild HI, LVIDd 5.8 -Patient is not a candidate for renal txp as her heart function is too poor. Nor is she a dual organ heart/kidney txp candidate as she has has 2 prior sternotomies as well as compliance issues -NT probnp 41K on admission -Patient received 1mg IV bumex in ED Plan: -Toprol started at 25mg BID (home dose 100mg BID); increased to 50mg BID today -Bidil not on formulary- started isordil 20mg TID, and hydralazine 37.5mg TID -TTE- LV severely dilated, LVEF 23%, RV moderately dilated, RVSF reduced, RVSP moderately elevated,mild AR, mechanical MV well seated, MR severely cannot be assessed, Severe TR, mild HI, LVIDd 6.6 -2mg IV BID bumex on nondialysis days - currently scheduled for [facility] but on wednesday inpatient but changed to Wednesday, , Wednesday, Wednesday on dc -Patient has a Wednesday, Wednesday, Wednesday chair outpatient for HD; but will be getting HD Wednesday, , Wednesday inpatient (placed back on home schedule when discharged) ESRD -Was on PD but developed abscess -Transitioned to HD -Per patient she has not missed any iHD appointments -Was getting 3L removed at [facility] HD however patient reports that she was nolonger tolerating that (she was having ramping) so fluid removal was decreased to 2L -She started having increase fluid retention right after fluid removal was reduced -Bumex 2mg 2mg BID non HD days -No IVA/ARB/ARNI/SGLT2i s/t ESRD Plan: -Nephrology consulted -[facility] dialysis -Avoid nephrotoxic medications -Renally dose medications -Resumed sodium bicarb and calcitrol -Low phos diet for hyperphosphatemia; patient does not appear to be on phos binder at home -Received HD on Wednesday and Wednesday -Patient has a Wednesday, Wednesday, Wednesday chair outpatient for HD; but will be getting HD Wednesday, , Wednesday inpatient -return to [facility] outpatient Severe MR -S/p MV repair (2019) followed by mechanical valve replacement (2019) -Well seated per RIA 05/2024 -Mitral valve thrombus note on RIA 05/2024 -Supposed to be anticoagulated on warfarin. Referral has been sent to [facility] whohave been trying to contact patient for multiple months with no response. Therefore, patient has not had any recent INRs drawn outpatient -Patient does report current warfarin use; stating she is on 4mg daily Plan: -INR 1.3 on admission; goal 2.5-3.5 d/t Mechanical valve -Started warfarin at 4mg -Full dose heparin gtt started CAD -S/P RUBEN to LAD (2020) -ASA and statin resumed PAF -S/p BiV ICD with AV yared ablation with MD Ramirez 05/2024 -H/O amio thyrotoxicosis -Follow with MD Ramirez Plan: -Toprol started at 25mg BID (home dose 100mg BID) HTN HLD -Statin resumed -Bidil not on formulary- started hydralazine 37.5mg TID and isosorbide 20mg TID Hyperthyroidism -In the setting of amiodarone thyrotoxicosis -Continue home methimazole Hypocalcemia Hypokalemia Hypomagnesemia -Replace as needed -Amiloride for hypokalemia Dispo plan: pending FEN: reg cardiac 2g NA, 1800 FR low phos Ppx: warfarin, PPI The above plan of care was discussed in detail with the attending, MD Brambila. Surgeries and Procedures Procedures performed in this encounter Procedures POC Ultrasound - Bedside Medication List .. acetaminophen 500 MG tablet Commonly known as: Tylenol Take 1 tablet by mouth every 6 hours as needed. aMILoride 5 MG tablet Commonly known as: Midamor Take 1 tablet (5 mg) by mouth 1 (one) time each day. Aspirin Low Dose 81 MG EC tablet Generic drug: aspirin Take 1 tablet by mouth daily. atorvastatin 40 MG tablet Commonly known as: Lipitor Take 1 tablet (40 mg) by mouth every night. bumetanide 1 MG tablet Commonly known as: Bumex Take 3 tablets by mouth 2 times a day. Please take 3 mg twice daily on your NON dialysis days (Wednesday//Wednesday/Wednesday) calcitriol 0.5 MCG capsule Commonly known as: Rocaltrol Take 1 capsule by mouth 3 times a week. cetirizine 10 MG tablet Commonly known as: ZyrTEC Take 1 tablet (10 mg) by mouth every night. fluticasone 50 MCG/ACT nasal spray Commonly known as: Flonase Administer 2 sprays into each nostril daily as needed for allergies. iron sucrose 200 mg in sodium chloride 0.9 % 90 mL IVPB Infuse 200 mg into a venous catheter. isosorbide-hydrALAZINE 20-37.5 MG tablet Commonly known as: BiDil Take 1 tablet by mouth 3 times a day. magnesium oxide 400 (240 Mg) MG tablet Commonly known as: Mag-Ox Take 1 tablet by mouth daily. Start taking on: March 02, 2025 methIMAzole 10 MG tablet Commonly known as: Tapazole Take 1 tablet (10 mg) by mouth 1 (one) time each day. metoprolol succinate XL 50 MG 24 hr tablet Commonly known as: Toprol-XL Take 1 tablet by mouth 2 times a day. Do not crush or chew. pantoprazole 40 MG EC tablet Commonly known as: Protonix Take 1 tablet by mouth daily before breakfast. Do not crush, chew, or split. potassium chloride CR 20 MEQ ER tablet Commonly known as: Klor-Con M20 Take 1 tablet by mouth daily as needed (take with bumex on NON dialysis days). Do not crush or chew. Please only take on Wednesday//Wednesday/Wednesday on your NON Dialysis days senna 8.6 MG tablet Commonly known as: Senokot Take 2 tablets by mouth nightly. sodium bicarbonate 650 MG tablet Take 2 tablets (1,300 mg) by mouth 1 (one) time each day. Velphoro 500 MG chewable tablet Generic drug: Sucroferric Oxyhydroxide Chew 1 tablet 3 (three) times a day. warfarin 4 MG tablet Commonly known as: Coumadin Take 1 tablet by mouth daily. Please take 4 mg every day starting Wednesday03/02/2025 . polyethylene glycol 17 g packet Commonly known as: Miralax Take 17 g by mouth 2 times a day. Where to Get Your Medications These medications were sent to [facility] [place], [place] - [address] [facility] [address] bumetanide 1 MG tablet isosorbide-hydrALAZINE 20-37.5 MG tablet magnesium oxide 400 (240 Mg) MG tablet metoprolol succinate XL 50 MG 24 hr tablet potassium chloride CR 20 MEQ ER tablet warfarin 4 MG tablet Discharge Diagnosis Medical Problems Active and Resolved Hospital Problems Hospital * (Principal) Acute decompensated heart failure (CMS/HCC) Post Discharge Instructions Detailed Instruction Provided to Patient Outpatient Follow-Up Future Appointments Date Time Provider Department Center 03/08/2025 3:20 PM Lenore Cosme MD [facility] 08/02/2025 1:40 PM Lenore Cosme MD [facility] Test Results Pending At Discharge none, patient will need labs at her next clinic visit on 03/08 Pertinent Physical Exam At Time of Discharge Constitutional: Appearance: Normal appearance. Resting in bed HENT: Head: Normocephalic and atraumatic. Neck: none Cardiovascular: Rate and Rhythm: Normal rate and paced rhythm. Heart sounds: Normal heart sounds. Edema: none Pulmonary: Effort: Pulmonary effort is normal (improved from yesterday). ORA Breath sounds: Normal breath sounds. Abdominal: General: Abdomen is rounded. Palpations: Abdomen is firm. NT, no guarding or rigidity Skin: General: Skin is warm and dry. Right chest tunneled dialysis catheter Neurological: General: No focal deficit present. Mental Status: The patient is alert and oriented to person, place, and time. Psychiatric: Mood and Affect: Mood normal. Behavior: Behavior normal. Discharge Disposition/Condition Disposition: Home with Home Health Condition: Stable (s/sx potential problems absent or manageable) I spent >30 minutes of patient care and instruction time in preparation for this discharge. * Progress Notes - Kaesy Carnes, PharmD - 03/01/2025 2:05 PM EDT Antithrombosis Monitoring: Warfarin Awais Smith is a 54 y.o. female who has been continued on warfarin. Warfarin Indication & Goal Anticoagulation Indication/Goal Warfarin Indication: Mechanical mitral valve;Atrial fibrillation Reason DOAC not prescribed: Other ( Comment) Other Reason: mechanical valve Duration of Anticoagulation: Indefinite Target INR: 2.5-3.5 Warfarin Prior to Admission: Yes Prior to Admission Daily Warfarin Regimen: 4 mg daily per patient but last filled 3 mg daily #30 in11/2024 Prior to Admission Weekly Warfarin Dose: 28 mg (reported) Assessment Warfarin Drug Interactions Inhibitors of Warfarin Metabolism: HMG Co-A Inhibitors (Statins);Other (comment) Other Inhibitor: Methimazole Increased Bleeding Risk: Unfractionated Heparin Interacting medications started/stopped in past 72 hours?: No Any warfarin reversal given?: No Anticoagulation Assessment Warfarin Sensitivity Risk Factors: Acute decompensated heart failure;Chronic liver, renal, or thyroid disease;Drug interaction: Inhibitors of warfarin metabolism Warfarin Sensitivity Score: High (1 or more Warfarin Sensitivity Risk Factors) Nutritional Intake: Normal PO Intake Today's INR : Therapeutic;Trending up Warfarin INR & Dose Trends Date INR Warfarin Dose (mg) Comments 02/23 1.3 4 mg Full dose heparin bridge protocol 02/24 1.5 4 mg Full dose heparin bridge protocol 02/25 1.6 5 mg Full dose heparin bridge protocol 02/26 1.8 5 mg Full dose heparin bridge protocol 02/27 2.1 5 mg Full dose heparin bridge protocol 02/28 2.3 5 mg Full dose heparin bridge protocol 03/01 3.4 HOLD UFH gtt discontinued Plan Anticoagulation Plan Warfarin Pharmacist Managed?: Yes Warfarin Plan: Hold Specify Warfarin Dose: Hold today [facility] Warfarin Dosing Protocol Followed?: No Reason for Protocol Departure: CA4 service Bridging Agent in Conjunction With Warfarin? : No INR Monitoring Frequency: Monitor INR daily Patient Education : Complete and documented Transitions of Care Outpatient provider managing warfarin after [facility] discharge: Plan to referr to [facility] Recommended date for outpatient INR assessment: 03/05/25 Will continue to follow patient's clinical progress daily. Kasey Carnes, PharmD, [facility] Cardiology Clinical Pharmacist, Heart Failure Contact: [employer] * Progress Notes - Tamara Rose MD - 03/01/2025 9:29 AM EDT Nephrology Progress Note Patient: Awais Smith Admit Date: 02/23/2025 Reason for Consult: ESRD on dialysis Subjective Patient seen and examined. Reviewed interval events, flowsheets, labs and notes. Patient seen this morning, resting comfortably in bed while receiving hemodialysis. Had no complaints. Looking forward to going home today. Objective Visit Vitals BP 112/74 Pulse 80 Temp 36.3 ??C (97.4 ??F) (Oral) Resp 16 Ht 1.676 m (5' 5.98 ) Wt 81.1 kg (178 lb 12.7 oz) SpO2 99% BMI 28.87 kg/m?? OB Status Hysterectomy Smoking Status Former BSA 1.94 m?? Temp: [36.2 ??C (97.2 ??F)-36.7 ??C (98.1 ??F)] 36.3 ??C (97.4 ??F) Heart Rate: [78-80] 80 Resp: [14-24] 16 BP: (95-119)/(57-78) 112/74 Physical Exam: GEN: Alert and oriented, no acute distress EYES: Clear conjunctivae bilaterally, EOMI NECK: Supple, trachea midline CV: Normal rate PULM: Nml resp rate, no resp distress SKIN: Warm and dry, no rashes NEURO: A&OX3, no gross focal deficit PSYCH: Normal mood and affect Access: [facility] Problem List Principal Problem: Acute decompensated heart failure (CMS/HCC) Medications: Current Medications: Current Scheduled Medications[1] Current Continuous Medications[2] Laboratory: LAB RESULTS Renal Panel: Lab Results Component Value Date NA 136 03/01/2025 K 4.3 03/01/2025 CL 99 03/01/2025 CO2 22 03/01/2025 BUN 41 (H) 03/01/2025 CREATININE 3.84 (H) 03/01/2025 EGFR 13.3 03/01/2025 CA ORDERED ERRONEOUSLY BY LAB. [facility]. 09/03/2017 PHOS 5.2 (H) 03/01/2025 ALBUMIN 3.6 02/23/2025 MBD: Lab Results Component Value Date PTH 553 (H) 03/24/2023 CA ORDERED ERRONEOUSLY BY LAB. [facility]. 09/03/2017 CALCIUM 9.0 03/01/2025 PHOS 5.2 (H) 03/01/2025 MG 1.9 03/01/2025 VITAMIN D 25 Lab Results Component Value Date VITD25 27.8 03/24/2023 PTHRP No results found for: PLASMA Urine studies: Lab Results Component Value Date CREATUR 45 11/18/2024 CBC: Lab Results Component Value Date WBC 5.65 03/01/2025 RBC 3.41 (L) 03/01/2025 HGB 10.1 (L) 03/01/2025 HCT 32.6 (L) 03/01/2025 PLT 166 03/01/2025 MCV 96 03/01/2025 MCH 29.6 03/01/2025 MCHC 31.0 03/01/2025 RDW 17.7 (H) 03/01/2025 NRBC 0.0 03/01/2025 Iron studies: Lab Results Component Value Date FERRITIN 81 03/24/2023 IRON 32 03/24/2023 TIBC 319 03/24/2023 Impression & Plan: 54 y.o. female with a historyof HFrEF due to NICM, severe MR s/p MV repair (2019) followed by mechanical MV replacement (2019) on warfarin, CAD s/p RUBEN to LAD (2020), ICD-in place (2020), PAF and ESRD on home HD. Patient presents to [facility] on 02/23/2025 w/ worsening shortness of breath. Nephrology consulted for ESRD management. #ESRD on HD Outpatient HD: - Outpatient Behavior Management Specialist: Dr. Hawkins - Residual renal functions: yes - EDW 74.5kg (02/21/25) - Access: [facility] - MWF HD . [facility] Assessment and Plan: #Metabolic acidosis #Hypokalemia #Hyperphosphatemia #Hypervolemia in renal insufficiency #Disorders of electrolytes #constipation #intraabdominal abscess?/fluid collections #Acute on Chronic HFrEF EF 22% #Non-ischemic cardiomyopathy #A flutter #Mechanical Mitral valve on Warfarin - Continue TTS HD while inpt (okay for her to resume MWF HD when she dc's). - She is still above her EDW of 74.5kg, will attempt 3L UF today - Okay to continue home Bumex 2mg BID on non-HD days - Home phos binder is Velphoro (not on hospital formulary), can continue Renvela 800 mg TID while inpatient but on discharge can resume her home phos binder. - Continue home NaHCO3 650mg BID - Recommend low phos diet - Please follow strict I/O's - Continue counseling regarding dietary restrictions. Dialysis Medications sodium citrate anticoagulant 4 % flush 6 mL 6 mL, Intracatheter, Every visit, As needed alteplase (Cathflo Activase) injection 4 mg 4 mg, Intracatheter, Every visit, As needed Dialysis Treatment Hemodialysis inpatient 3 hr (180 min); Revaclear 400; 36; 3; 2.5; 138; 35; 2-3; Remove UF as tolerated; 300-400; 2X Blood Flow Rate; Adult; HD Catheter; Right Once Every visit, Once Duration of Treatment: 3 hr (180 min) Dialyzer: Revaclear 400 Dialysate Temperature (Centigrade): 36 Dialysate: Potassium (mEq/L): 3 Dialysate: Calcium (mEq/L): 2.5 Dialysate: Sodium (mEq/L): 138 Dialysate: Bicarb (mEq/L): 35 Net fluid removal (Ultrafiltration) (L): 2-3 As tolerated: Remove UF as tolerated BFR (mL/min): 300-400 Dialysate Flow Rate (mL/min): 2X Blood Flow Rate Tubing: Adult Access Site: HD Catheter Location: Right Nursing general assessments and interventions Every visit, Once Labs Hepatitis B Surface Antibody, Quantitative Every 28 days, Once [facility] Immediate Hepatitis panel, acute Every 28 days, Once Release to patient in MyChart: Immediate Nephrology will continue to follow. Please call or page with any questions. Tamara Rose MD Nephrology/Critical Care Medicine Fellow Pager: [phone] [1] aMILoride, 5 mg, Oral, Daily aspirin, 81 mg, Oral, Daily atorvastatin, 40 mg, Oral, Nightly bumetanide, 2 mg, Oral, 2 times per day on Wednesday calcitriol, 0.5 mcg, Oral, Once per day on Wednesday cetirizine, 10 mg, Oral, Nightly hydrALAZINE, 37.5 mg, Oral, q8h JOANIE isosorbide dinitrate, 20 mg, Oral, q8h JOANIE magnesium oxide, 400 mg, Oral, Daily methIMAzole, 10 mg, Oral, Daily metoprolol succinate XL, 50 mg, Oral, BID pantoprazole, 40 mg, Oral, Daily before breakfast sevelamer carbonate, 800 mg, Oral, TID with meals sodium bicarbonate, 1,300 mg, Oral, Daily sodium chloride, 10 mL, Intravenous, q12h warfarin (Coumadin) intermittent dosing, 1 each, Oral, See admin instructions [2] heparin - COM Adult Full Dose Protocol - MAR calculator by anti-Xa, 0-35 Units/kg/hr, Last Rate: 22 Units/kg/hr (03/01/25 0516) Cosigned by Duane Li MD at 03/01/2025 12:04 PM EDT Associated attestation - Duane Li MD - 03/01/2025 12:04 PM EDT I saw and evaluated the patient with the resident/fellow. I discussed the case with the resident/fellow and agree with the findings and plan as documented. Patient seen and examined during hemodialysis. Tolerating dialysis well. No complaints from patientor concerns from dialysis staff. See dialysis flowsheet for further details. * Care Plan - Roman Tamez RN - 02/28/2025 9:59 PM EDT Problem: Hemodialysis Goal: Safe, Effective Therapy Delivery Outcome: Ongoing, Progressing Goal: Effective Tissue Perfusion Outcome: Met Goal: Absence of Infection Signs and Symptoms Outcome: Ongoing, Progressing Problem: Adult Inpatient Plan of Care Goal: Plan of Care Review Outcome: Ongoing, Progressing Flowsheets Taken 02/28/2025 1020 by Felicitas Weber RN Progress: improving Taken 02/26/2025 1134 by Dena Tolbert RN Plan of Care Reviewed With: patient Taken 02/24/2025 2249 by René Zapata RN Outcome Evaluation: pt to have adequate ventilation and limit fluid intake to minimize overload Goal: Patient-Specific Goal (Individualized) Outcome: Ongoing, Progressing Flowsheets (Taken 02/28/20252000) Patient/Family-Specific Goals (Include Timeframe): Patient will report pain less than 6 this shift Individualized Care Needs: I&O measurement Anxieties, Fears or Concerns: INR Goal: Absence of Hospital-Acquired Illness or Injury Outcome: Ongoing, Progressing Goal: Optimal Comfort and Wellbeing Outcome: Ongoing, Progressing Problem: Fall Injury Risk Goal: Absence of Fall and Fall-Related Injury Outcome: Ongoing, Progressing Problem: Heart Failure Goal: Optimal Coping Outcome: Met Goal: Optimal Cardiac Output and Blood Flow Outcome: Met Goal: Stable Heart Rate and Rhythm Outcome: Met Goal: Fluid and Electrolyte Balance Outcome: Met Goal: Optimal Functional Ability Outcome: Met Goal: Improved Oral Intake Outcome: Met Goal: Effective Oxygenation and Ventilation Outcome: Met Goal: Effective Breathing Pattern During Sleep Outcome: Met * Consults - Svitlana Hazel RD - 02/28/2025 4:21 PM EDTAssociated Order(s): IP CONSULT TO NUTRITION SERVICES Nutrition Education Consult Met with pt to provide HF nutrition teaching, per consult: 2 gram Na, 1800 mL fluid per day, or as otherwise instructed by MD/team. Pt is a chronic dialysis patient as well. Pt had fair base knowledge of low sodium meal planning, was receptive to discussion. Discussed food/beverage selection, cooking/preparation techniques, label reading, and proper portioning. Pt reported that her serum potassium is typically low, and that her dialysis team is always encouraging her to eat high potassium foods. Answered pt's questions and provided NCM's HF handouts, Sodium tear sheet, and RD contact information for further questions, should they arise. Pt verbalized understanding with teach back. Svitlana Hazel RD * Progress Notes - Jocy Kennedy, MICHAEL, DNP - 02/28/2025 4:11 PM EDT Images from the original note were not included. Subjective: Ms. Smith is sitting up in bed. ORA. HD tomorrow. Denies any issues overnight. Continues to report improvement in symptomology, she denies shortness of breath, OBRIEN; resolved conversational dyspnea. INR 2.3; remains on warfarin with heparin gtt bridge. Will repeat INR this evening. Review of symptoms Constitutional: Negative for decreased appetite and + weight gain. Cardiovascular: Negative for chest pain, +dyspnea on exertion, +leg swelling, near-syncope, +orthopnea, palpitations, +paroxysmal nocturnal dyspnea and syncope. Respiratory: Negative for cough, +shortness of breath and sleep disturbances due to breathing. Gastrointestinal: Negative for bloating. 02/27/2025 11:30 PM 02/28/2025 4:08 AM 02/28/2025 5:34 AM 02/28/2025 5:35 AM 02/28/2025 8:17 AM 02/28/2025 11:54 AM 02/28/2025 3:19 PM Vitals Systolic 103 118 109 109 93 102 95 Diastolic 64 72 64 64 60 61 57 Heart Rate 80 80 80 80 80 80 79 Temp 36.7 C 36.4 C 36.7 C 36.6 C 36.2 C Resp 17 Weight (kg) 80.6 kg BMI 28.69 kg/m2 BSA (m2) 1.94 m2 Physical Exam Constitutional: Appearance: Normal appearance. Resting in bed HENT: Head: Normocephalic and atraumatic. Neck: none Cardiovascular: Rate and Rhythm: Normal rate and paced rhythm. Heart sounds: Normal heart sounds. Edema: none Pulmonary: Effort: Pulmonary effort is normal (improved from yesterday). ORA Breath sounds: Normal breath sounds. Abdominal: General: Abdomen is rounded. Palpations: Abdomen is firm. NT, no guarding or rigidity Skin: General: Skin is warm and dry. Right chest tunneled dialysis catheter Neurological: General: No focal deficit present. Mental Status: The patient is alert and oriented to person, place, and time. Psychiatric: Mood and Affect: Mood normal. Behavior: Behavior normal. Cardiac Testing -RIA- LVED 20-25%, RV dilated, RVSF moderately reduced, no thrombus seen, mechanical MV well seated, echogenic mass extending along the MV prosthetic ring, small mobile echogenic are consistent with thrombus, mild TR, trace HI, -TTE 02/01/25- no mass or thrombus seen, LVEF 22%, global hypokinesis of LV, RV dilated, RVSF reduced, LV size severely increased, trace AR, mechanical MV well seated, MR present, severe TR, mild HI, LVIDd 5.8 -TTE02/24/25- LV severely dilated, LVEF 23%, RV moderately dilated, RVSF reduced, RVSP moderately elevated, mild AR, mechanical MV well seated, MR severely cannot be assessed, Severe TR, mild HI, LVIDd 6.6 Imaging Echo, Adult Transthoracic Complete Result Date: 02/24/2025 Left Ventricle: The left ventricular systolic function is severely reduced. The LVEF as measured bybiplane volume is 23%. Right Ventricle: The right ventricle is moderately dilated. The right ventricular systolic function is reduced. There is regional wall motion abnormalities. There is right ventricular free wall akinesis. There is right ventricular apical akinesis. The estimated right ventricular systolic pressure is 51 mmHg. Right ventricular systolic pressure is moderately elevated (50-70mmHg). Mitral Valve: There is a bileaflet mechanical mitral valve (35/25 mm ON-X) that is well seated. The mean mitral valve pressure gradient is estimated to be 4 mmHg at a heart rate of 78 bpm. The gradient is normal for this prosthetic valve. Tricuspid Valve: There is severe tricuspid regurgitation. There is systolic flow reversal of the hepatic veins consistent with significant tricuspid valve regurgitation. Pericardium: No pericardial effusion. Compared to the most recently available prior study, and allowing for differences in image quality and technique, there is no significant interval c hange noted. Echo, Adult Transthoracic Complete Result Date: 02/01/2025 Left Ventricle: The left ventricle is dilated. There is eccentric hypertrophy. No left ventricular mass or thrombus is seen. The LVEF as measured by biplane volume is 22%. The calculated cardiac index based on LVOT Doppler technique is normal. Unable to assess diastolic function due to mitral valvesurgery. There is global hypokinesis of the left ventricle. See diagram below for wall motion findings. Right Ventricle: The right ventricle is dilated. A catheter/lead is present in the right ventricle. The right ventricular systolic function is reduced. Mitral Valve: There is a bileaflet mechanical mitral valve (35/25 mm ON-X) that is well seated. Mitral regurgitation is present; however, its se verity cannot be assessed due to shielding from the prosthesis. There is no mitral stenosis. The mean mitral valve pressure gradient is estimated to be 5 mmHg at a heart rate of 80 bpm. Tricuspid Valve: There is severe tricuspid regurgitation. IVC/SVC: Based on the IVC size and respiratory variation, the estimated right atrial pressure is 15mmHg. Compared to the most recently available prior study, and allowing for differences in image quality and technique, there is no significant interval change noted. Echo, Adult Transthoracic (TTE) Limited Result Date: 05/25/2024 Compared to the most recently available prior study, and allowing for differences in image quality and technique, there is no significant interval change noted. Echo, Adult Transthoracic Complete Result Date: 04/24/2024 Left Ventricle: Based on the linear dimension and/or 2D volumes, the left ventricle is severely dilated in size. There is severe eccentric hypertrophy. The left ventricular systolic function is severely reduced. The LVEF as measured by biplane volume is 21%. Unable to assess diastolic function due to mitral valve surgery. There is global hypokinesis of the left ventricle. Right Ventricle: The right ventricle is mildly dilated. The right ventricular systolic function is mildly reduced. Right ventricular systolic pressure is moderately elevated (50-70mmHg). The estimated right ventricular systolic pressure is 56 mmHg. Mitral Valve: There is a bileaflet mechanical mitral valve (35/25 mm On-X) that is well seated. Mitral regurgitation is present; however, its severity cannot be assessed due to shielding from the prosthesis. The mean mitral valve pressure gradient is estimated to be 14 mmHg at a heart rate of 84 bpm. The gradient is abnormally high for this prosthetic valve due to combination of regurgitation and stenosis. Tricuspid Valve: There is moderate tricuspid regurgitation. Compared to the most recently available prior study, and allowing for differences in image quality and technique, LV systolic function is worse. The mechanical mitral mean gradient is now significantly elevated. Labs Lab Results Component Value Date HGB 10.2 (L) 02/28/2025 HCT 32.5 (L) 02/28/2025 PLT 171 02/28/2025 CHOL ORDERED ERRONEOUSLY BY LAB. [facility]. 09/03/2017 TRIG ORDERED ERRONEOUSLY BY LAB. [facility]. 09/03/2017 HDL ORDERED ERRONEOUSLY BY LAB. [facility]. 09/03/2017 LDLCALC ORDERED ERRONEOUSLY BY LAB. [facility]. 09/03/2017 ALT 12 02/23/2025 AST 18 02/23/2025 NA 134 (L) 02/28/2025 K 3.8 02/28/2025 CREATININE 3.10 (H) 02/28/2025 BUN 34 (H) 02/28/2025 CO2 24 02/28/2025 TSH 18.70 (H) 11/16/2024 INR 2.3 (H) 02/28/2025 HGBA1C 6.2 (H) 03/23/2023 Assessment and Plan Acute on Chronic HFrEF s/t NICM NYHA IV Stage C -Significantly fluid volume overloaded -Home GDMT: toprol 100mg BID -Bumex 2mg BID daily though patient reports she is only taking it on non HD days -No IVA/ARB/ARNI/SGLT2i s/t ESRD -Bidil 20mg-37.5 2 pills TID -RIA- LVED 20-25%, RV dilated, RVSF moderately reduced, no thrombus seen, mechanical MV well seated, echogenic mass extending along the MV prosthetic ring, small mobile echogenic are consistent with thrombus, mild TR, trace HI, -TTE 02/01/25- no mass or thrombus seen, LVEF 22%, global hypokinesis of LV, RV dilated, RVSF reduced, LV size severely increased, trace AR, mechanical MV well seated, MR present, severe TR, mild HI, LVIDd 5.8 -Patient is not a candidate for renal txp as her heart function is too poor. Nor is she a dual organ heart/kidney txp candidate as she has has 2 prior sternotomies as well as compliance issues -NT probnp 41K on admission -Patient received 1mg IV bumex in ED Plan: -Toprol started at 25mg BID (home dose 100mg BID); increased to 50mg BID today -Bidil not on formulary- started isordil 20mg TID, and hydralazine 37.5mg TID -TTE- LV severely dilated, LVEF 23%, RV moderately dilated, RVSF reduced, RVSP moderately elevated,mild AR, mechanical MV well seated, MR severely cannot be assessed, Severe TR, mild HI, LVIDd 6.6 -2mg IV BID bumex on nondialysis days - [facility] [place] [facility] [place] but will needto be changed to Wednesday, , Wednesday, Wednesday on dc -Patient has a Wednesday, Wednesday, Wednesday chair outpatient for HD; but will be getting HD Wednesday, , Wednesday inpatient ESRD -Was on PD but developed abscess -Transitioned to HD -Per patient she has not missed any iHD appointments -Was getting 3L removed at [facility] HD however patient reports that she was nolonger tolerating that (she was having ramping) so fluid removal was decreased to 2L -She started having increase fluid retention right after fluid removal was reduced -Bumex 2mg 2mg BID non HD days -No IVA/ARB/ARNI/SGLT2i s/t ESRD Plan: -Nephrology consulted -[facility] dialysis -Avoid nephrotoxic medications -Renally dose medications -Resumed sodium bicarb and calcitrol -Low phos diet for hyperphosphatemia; patient does not appear to be on phos binder at home -Received HD on Wednesday and Wednesday -Patient has a Wednesday, Wednesday, Wednesday chair outpatient for HD; but will be getting HD Wednesday, , Wednesday inpatient Severe MR -S/p MV repair (2019) followed by mechanical valve replacement (2019) -Well seated per RIA 05/2024 -Mitral valve thrombus note on RIA 05/2024 -Supposed to be anticoagulated on warfarin. Referral has been sent to [facility] whohave been trying to contact patient for multiple months with no response. Therefore, patient has not had any recent INRs drawn outpatient -Patient does report current warfarin use; stating she is on 4mg daily Plan: -INR 1.3 on admission; goal 2.5-3.5 d/t Mechanical valve -Started warfarin at 4mg -Full dose heparin gtt started CAD -S/P RUBEN to LAD (2020) -ASA and statin resumed PAF -S/p BiV ICD with AV yared ablation with MD Raimrez 05/2024 -H/O amio thyrotoxicosis -Follow with MD Ramirez Plan: -Toprol started at 25mg BID (home dose 100mg BID) HTN HLD -Statin resumed -Bidil not on formulary- started hydralazine 37.5mg TID and isosorbide 20mg TID Hyperthyroidism -In the setting of amiodarone thyrotoxicosis -Continue home methimazole Hypocalcemia Hypokalemia Hypomagnesemia -Replace as needed -Amiloride for hypokalemia Dispo plan: pending FEN: reg cardiac 2g NA, 1800 FR low phos Ppx: warfarin, PPI The above plan of care was discussed in detail with the attending, MD Brambila. Jocy Kennedy APRN, DNP * Progress Notes - Kasey Carnes, PharmD - 02/28/2025 11:44 AM EDT Antithrombosis Monitoring: Warfarin Awais Smith is a 54 y.o. female who has been continued on warfarin. Warfarin Indication & Goal Anticoagulation Indication/Goal Warfarin Indication: Mechanical mitral valve;Atrial fibrillation Reason DOAC not prescribed: Other ( Comment) Other Reason: mechanical valve Duration of Anticoagulation: Indefinite Target INR: 2.5-3.5 Warfarin Prior to Admission: Yes Prior to Admission Daily Warfarin Regimen: 4 mg daily per patient but last filled 3 mg daily #30 in11/2024 Prior to Admission Weekly Warfarin Dose: 28 mg (reported) Assessment Warfarin Drug Interactions Inhibitors of Warfarin Metabolism: HMG Co-A Inhibitors (Statins);Other (comment) Other Inhibitor: methimazole Increased Bleeding Risk: Unfractionated Heparin Interacting medications started/stopped in past 72 hours?: No Any warfarin reversal given?: No Anticoagulation Assessment Warfarin Sensitivity Risk Factors: Acute decompensated heart failure;Chronic liver, renal, or thyroid disease;Drug interaction: Inhibitors of warfarin metabolism Warfarin Sensitivity Score: High (1 or more Warfarin Sensitivity Risk Factors) Nutritional Intake: Normal PO Intake Today's INR : Subtherapeutic Warfarin INR & Dose Trends Date INR Warfarin Dose (mg) Comments 02/23 1.3 4 mg Full dose heparin bridge protocol 02/24 1.5 4 mg Full dose heparin bridge protocol 02/25 1.6 5 mg Full dose heparin bridge protocol 02/26 1.8 5 mg Full dose heparin bridge protocol 02/27 2.1 5 mg Full dose heparin bridge protocol 02/28 2.3 5 mg Full dose heparin bridge protocol Plan Anticoagulation Plan Warfarin Pharmacist Managed?: Yes Warfarin Plan: Continue current dose Specify Warfarin Dose: 5 mg po daily [facility] Warfarin Dosing Protocol Followed?: No Reason for Protocol Departure: CA4 patient Bridging Agent in Conjunction With Warfarin? : Yes Ordered Agents: Unfractionated heparin INR Monitoring Frequency: Monitor INR daily Patient Education : Incomplete Transitions of Care Outpatient provider managing warfarin after [facility] discharge: [facility], will need new referral Recommended date for outpatient INR assessment: TBD Will continue to follow patient's clinical progress daily. Kasey Carnes, JackD, [facility] Cardiology Clinical Pharmacist, Heart Failure Contact: [place] [employer] * Care Plan - Felicitas Weber RN - 02/28/2025 10:21 AM EDT Problem: Hemodialysis Goal: Safe, Effective Therapy Delivery Outcome: Ongoing, Progressing Intervention: Optimize Device Care and Function Flowsheets (Taken 02/26/20252238 by Crystal Durán) Medication Review/Management: medications reviewed Goal: Effective Tissue Perfusion Outcome: Ongoing, Progressing Intervention: Optimize Blood Flow Flowsheets (Taken 02/27/2025 1709) Stabilization Measures: verbal stimulation provided Goal: Absence of Infection Signs and Symptoms Outcome: Ongoing, Progressing Intervention: Prevent or Manage Infection Flowsheets Taken 02/28/2025 1020 by Felicitas Weber RN Fever Reduction/Comfort Measures: lightweight bedding lightweight clothing Taken 02/26/20252238 by Crystal Durán Infection Prevention: environmental surveillance performed hand hygiene promoted rest/sleep promoted single patient room provided Problem: Adult Inpatient Plan of Care Goal: Plan of Care Review Outcome: Ongoing, Progressing Flowsheets Taken 02/28/2025 1020 by Felicitas Weber RN Progress: improving Taken 02/26/2025 1134 by Didi, Dena E, RN Plan of Care Reviewed With: patient Goal: Patient-Specific Goal (Individualized) Outcome: Ongoing, Progressing Goal: Absence of Hospital-Acquired Illness or Injury Outcome: Ongoing, Progressing Goal: Optimal Comfort and Wellbeing Outcome: Ongoing, Progressing Problem: Fall Injury Risk Goal: Absence of Fall and Fall-Related Injury Outcome: Ongoing, Progressing Problem: Heart Failure Goal: Optimal Coping Outcome: Ongoing, Progressing Goal: Optimal Cardiac Output and Blood Flow Outcome: Ongoing, Progressing Goal: Stable Heart Rate and Rhythm Outcome: Ongoing, Progressing Goal: Fluid and Electrolyte Balance Outcome: Ongoing, Progressing Goal: Optimal Functional Ability Outcome: Ongoing, Progressing Goal: Improved Oral Intake Outcome: Ongoing, Progressing Goal: Effective Oxygenation and Ventilation Outcome: Ongoing, Progressing Goal: Effective Breathing Pattern During Sleep Outcome: Ongoing, Progressing * Progress Notes - Kita Restrepo - 02/28/2025 10:20 AM EDT Physical Therapy Evaluation Patient Name: Awais Smith Today's Date: 02/28/2025 PT Discharge Recommendations: Home Equipment Recommended: None History Awais Smith is 54 y.o. female admitted 02/23/2025 for work-up of Acute decompensated heart failure ([facility]). Problem List Active Hospital Problems Diagnosis Date Noted Acute decompensated heart failure (CMS/HCC) 02/23/2025 Procedures Past Medical History Patient has a past medical history of CHF (congestive heart failure) (CMS/[facility]), Chronic kidney disease, COPD (chronic obstructive pulmonary disease) (CMS/[facility]), Coronary artery disease, ESRD (end stage renal disease) (CMS/[facility]), Hyperlipidemia, Hypertension, and Myocardial infarction (CMS/[facility]). Past Surgical History Patient has a past surgical history that includes Mitral valve replacement; Cardiac defibrillator placement; Hysterectomy; AV fistula placement (Right); Coronary angioplasty; Cardiac catheterization;Coronary stent placement; Cardiac valve replacement; and Insert / replace / remove pacemaker. Precautions Subjective Pt states being bored in her room. Participants in Care Family/Caregiver Present: No Presentation Pre-Session: Supine, Head of bed elevated, Lines intact Post-Session: Supine, Head of bed elevated, Lines intact Home Living/Set-up Lives With: Spouse (16 y/o grandson) Home Adaptive Equipment: None Home Layout: One level (ramp to enter) Prior Level of Function Receives Help From: No assist required prior to admission Level of Mobility: Ambulatory- community (x2 months prior to admission, since that time pt has [facility] amb) Mobility [place]: Independent gait without device History of Falls: No ADL Performance: Independent Patient/Family Goals Patient states she wants to be able to walk up the [place] on her [place]. Objective Vital Signs Pre-Session During- and/or Post-Session Heart Rate (BPM) 81 81 O2 Saturation (%) 98 96 Blood Pressure (mmHg) Resp Rate (BPM) Pain Pt states no complaints of pain throughout session. Delirium Screening RASS: Alert and calm Confusion Assessment Method-ICU (CAM-ICU/PCAM-ICU) Feature 3: Altered Level of Consciousness: Negative Cognition Overall Cognitive Status: Within Functional Limits Arousal/Alertness: Appropriate responses to stimuli Orientation Level: Oriented X4 Single Step Commands: Consistently Multi-Step Commands: Consistently Method of Communication: Verbal Right Upper Extremity Examination RUE Assessment: Within Functional Limits Manual Muscle Testing - RUE: Within functional limits Sensation Light Touch: Right Upper Extremity: Intact Left Upper Extremity Examination LUE ROM Assessment LUE Assessment: Within Functional Limits Manual Muscle Testing - LUE Manual Muscle Testing - LUE: Within functional limits Sensation Light Touch: Left Upper Extremity: Intact Right Lower Extremity Examination RLE ROM Assessment RLE Assessment: Within Functional Limits Sensation Light Touch: Right Lower Extremity: Intact Left Lower Extremity Examination LLE Assessment: Within Functional Limits Sensation Light Touch: Left Lower Extremity: Intact Bed Mobility Bed Mobility Exam: Supine to Sit Level of [place]: Independent Bed Mobility Exam: Sit to Supine Level of [place]: Independent Transfers Transfer Exam: Sit to stand Level of [place]: Independent Transfer Exam: Stand to Sit Level of [place]: Independent Ambulation Device: No device Assistance: Standby assist Distance : x400 feet Balance Postural Appearance Posture: Within Functional Limits Static Sitting Balance Static Sitting-Level of Assistance: Independent Dynamic Sitting Balance Level of Assistance: Independent Static Standing Balance Static Standing-Level of Assistance: Independent Dynamic Standing Balance Dynamic Standing Level of Assistance: Independent Standardized Assessments [facility] 6-Clicks Mobility Assessment Difficulty patient has turning over in bed (including adjusting bedclothes, sheets, and blankets)?:None Difficulty patient has sitting down on and standing up from a chair with arms (wheelchair, bedside commode, etc.)?: None Difficulty patient has moving from lying on back to sitting on the side of the bed?: None How much help does the patient need moving to and from a bed to a chair (including a wheelchair)?: None How much help does the patient need to walk in hospital room?: None How much help does the patient need climbing 3-5 steps with a railing?: A little [facility] 6-Clicks Mobility Assessment Total : 23 No data recorded Assessment Impairments: Decreased endurance, ventilation, and/or gas exchange, Decreased strength, Impaired gait dynamics/performance Participation Restrictions: Community leisure Activity Tolerance: Tolerates 10 - 20 min activity with multiple rests Evaluation/Treatment Tolerance: Patient limited by fatigue Rehab Potential: Good, to achieve stated therapy goals Eval Complexity History Profile: 1 - 2 personal factors and/or comorbidities Clinical Presentation: Evolving clinical presentation with changing characteristics Clinical Decision Making: Moderate complexity PT Recommendations Discharge Destination: Home Discharge Equipment: None Plan Planned PT Interventions Balance training, Strengthening, Stretching, Gait training PT Frequency 2 - 5 times per week PT Duration 2 weeks Goals PT GOAL DETAILS Time Frame PT Goal 1: Pt will be complaint with HEP and walking program 2 weeks PT Goal 2: Pt will walk 800 feet without a rest break or use of an assistive device 2 weeks PT Goal 3: Pt will have 4/5 hip flexion MMT 2 weeks Written by Kita Restrepo on 02/28/25 at 3:40 PM. Cosigned by Kraig Olea at 02/28/2025 4:02 PM EDT Associated attestation - Kraig Olea - 02/28/2025 4:02 PM EDT As the supervising therapist, I was present during the entire PT treatment and have reviewed and agree with this document written by the student therapist for this patient on this date/time. Lucio Olea, PT * Progress Notes - Tamara Rose MD - 02/28/2025 9:30 AM EDT Nephrology Progress Note Patient: Awais Smith Admit Date: 02/23/2025 Reason for Consult: ESRD on dialysis Subjective Patient seen and examined. Reviewed interval events, flowsheets, labs and notes. Patient seen this morning, sitting in bed and eating breakfast. Reports she feels much better and she is no longer having any issues with shortness of air. Hoping to go home today or tomorrow. Tolerated HD yesterday with 2 L UF. Objective Visit Vitals BP 93/60 Pulse 80 Temp 36.7 ??C (98.1 ??F) Resp 17 Ht 1.676 m (5' 5.98 ) Wt 80.6 kg (177 lb 11.1 oz) SpO2 95% BMI 28.69 kg/m?? OB Status Hysterectomy Smoking Status Former BSA 1.94 m?? Temp: [36.2 ??C (97.2 ??F)-36.7 ??C (98.1 ??F)] 36.7 ??C (98.1 ??F) Heart Rate: [80-83] 80 Resp: [16-18] 17 BP: (93-118)/(56-81) 93/60 Physical Exam: GEN: Alert and oriented, no acute distress EYES: Clear conjunctivae bilaterally, EOMI NECK: Supple, trachea midline CV: Normal rate PULM: Nml resp rate, no resp distress SKIN: Warm and dry, no rashes NEURO: A&OX3, no gross focal deficit PSYCH: Normal mood and affect Access: [facility] Problem List Principal Problem: Acute decompensated heart failure ([facility]) Medications: Current Medications: Current Scheduled Medications[1] Current Continuous Medications[2] Laboratory: LAB RESULTS Renal Panel: Lab Results Component Value Date NA 134 (L) 02/28/2025 K 3.8 02/28/2025 CL 96 (L) 02/28/2025 CO2 24 02/28/2025 BUN 34 (H) 02/28/2025 CREATININE 3.10 (H) 02/28/2025 EGFR 17.3 02/28/2025 CA ORDERED ERRONEOUSLY BY LAB. CREDITED. 09/03/2017 PHOS 4.3 02/28/2025 ALBUMIN 3.6 02/23/2025 MBD: Lab Results Component Value Date PTH 553 (H) 03/24/2023 CA ORDERED ERRONEOUSLY BY LAB. CREDITED. 09/03/2017 CALCIUM 8.5 (L) 02/28/2025 PHOS 4.3 02/28/2025 MG 1.8 (L) 02/28/2025 VITAMIN D 25 Lab Results Component Value Date VITD25 27.8 03/24/2023 PTHRP No results found for: PLASMA Urine studies: Lab Results Component Value Date CREATUR 45 11/18/2024 CBC: Lab Results Component Value Date WBC 6.26 02/28/2025 RBC 3.44 (L) 02/28/2025 HGB 10.2 (L) 02/28/2025 HCT 32.5 (L) 02/28/2025 PLT 171 02/28/2025 MCV 95 02/28/2025 MCH 29.7 02/28/2025 MCHC 31.4 02/28/2025 RDW 18.0 (H) 02/28/2025 NRBC 0.0 02/28/2025 Iron studies: Lab Results Component Value Date FERRITIN 81 03/24/2023 IRON 32 03/24/2023 TIBC 319 03/24/2023 Impression & Plan: 54 y.o. female with a historyof HFrEF due to NICM, severe MR s/p MV repair (2019) followed by mechanical MV replacement (2019) on warfarin, CAD s/p RUBEN to LAD (2020), ICD-in place (2020), PAF and ESRD on home HD. Patient presents to [facility] on 02/23/2025 w/ worsening shortness of breath. Nephrology consulted for ESRD management. #ESRD on HD Outpatient HD: - Outpatient Behavior Management Specialist: Dr. Hawkins - Residual renal functions: yes - Access: [facility] - MWF HD . [facility] Assessment and Plan: #Metabolic acidosis #Hypokalemia #Hyperphosphatemia #Hypervolemia in renal insufficiency #Disorders of electrolytes #constipation #intraabdominal abscess?/fluid collections #Acute on Chronic HFrEF EF 22% #Non-ischemic cardiomyopathy #A flutter #Mechanical Mitral valve on Warfarin - Continue TTS HD while inpt (okay for her to resume MWF HD when she dc's). - Okay to continue home Bumex 2mg BID on non-HD days - Continue home phos binders - Recommend low phos diet - Please follow strict I/O's - Continue counseling regarding dietary restrictions. Nephrology will continue to follow. Please call or page with any questions. Tamara Rose MD Nephrology/Critical Care Medicine Fellow Pager: [phone] [1] aMILoride, 5 mg, Oral, Daily aspirin, 81 mg, Oral, Daily atorvastatin, 40 mg, Oral, Nightly bumetanide, 2 mg, Oral, 2 times per day on Wednesday calcitriol, 0.5 mcg, Oral, Once per day on Wednesday cetirizine, 10 mg, Oral, Nightly hydrALAZINE, 37.5 mg, Oral, q8h JOANIE isosorbide dinitrate, 20 mg, Oral, q8h JOANIE magnesium oxide, 400 mg, Oral, Daily methIMAzole, 10 mg, Oral, Daily metoprolol succinate XL, 50 mg, Oral, BID pantoprazole, 40 mg, Oral, Daily before breakfast sevelamer carbonate, 800 mg, Oral, TID with meals sodium bicarbonate, 1,300 mg, Oral, Daily sodium chloride, 10 mL, Intravenous, q12h warfarin, 5 mg, Oral, Daily [2] heparin - COM Adult Full Dose Protocol - MAR calculator by anti-Xa, 0-35 Units/kg/hr, Last Rate: 22 Units/kg/hr (02/27/252219) Cosigned by Duane Li MD at 02/28/2025 10:14 AM EDT Associated attestation - Duane Li MD - 02/28/2025 10:14 AM EDT I saw and evaluated the patient with the resident/fellow. I discussed the case with the resident/fellow and agree with the findings and plan as documented. * Care Plan - Roman Tamez RN - 02/27/2025 11:01 PM EDT Problem: Hemodialysis Goal: Safe, Effective Therapy Delivery Outcome: Ongoing, Progressing Goal: Effective Tissue Perfusion Outcome: Ongoing, Progressing Goal: Absence of Infection Signs and Symptoms Outcome: Ongoing, Progressing Problem: Adult Inpatient Plan of Care Goal: Plan of Care Review Outcome: Ongoing, Progressing Flowsheets Taken 02/26/20252238 by Crystal Durán Progress: improving Taken 02/26/2025 1134 by Dena Tolbert RN Plan of Care Reviewed With: patient Taken 02/24/20252248 by René Zapata RN Outcome Evaluation: pt to have adequate ventilation and limit fluid intake to minimize overload Goal: Patient-Specific Goal (Individualized) Outcome: Ongoing, Progressing Flowsheets (Taken 02/27/20252000) Patient/Family-Specific Goals (Include Timeframe): Patient will remain free of falls/injury this shift Individualized Care Needs: CHG Anxieties, Fears or Concerns: INR Goal: Absence of Hospital-Acquired Illness or Injury Outcome: Ongoing, Progressing Goal: Optimal Comfort and Wellbeing Outcome: Ongoing, Progressing Problem: Fall Injury Risk Goal: Absence of Fall and Fall-Related Injury Outcome: Ongoing, Progressing Problem: Heart Failure Goal: Optimal Coping Outcome: Ongoing, Progressing Goal: Optimal Cardiac Output and Blood Flow Outcome: Ongoing, Progressing Goal: Stable Heart Rate and Rhythm Outcome: Ongoing, Progressing Goal: Fluid and Electrolyte Balance Outcome: Ongoing, Progressing Goal: Optimal Functional Ability Outcome: Ongoing, Progressing Goal: Improved Oral Intake Outcome: Ongoing, Progressing Goal: Effective Oxygenation and Ventilation Outcome: Ongoing, Progressing Goal: Effective Breathing Pattern During Sleep Outcome: Ongoing, Progressing * Care Plan - Felicitas Weber RN - 02/27/2025 5:11 PM EDT Problem: Hemodialysis Goal: Safe, Effective Therapy Delivery Outcome: Ongoing, Progressing Intervention: Optimize Device Care and Function Flowsheets (Taken 02/26/20252238 by Crystal Durán) Medication Review/Management: medications reviewed Goal: Effective Tissue Perfusion Outcome: Ongoing, Progressing Intervention: Optimize Blood Flow Flowsheets (Taken 02/27/2025 170) Stabilization Measures: verbal stimulation provided Goal: Absence of Infection Signs and Symptoms Outcome: Ongoing, Progressing Intervention: Prevent or Manage Infection Flowsheets Taken 02/26/20252238 by Crystal Durán Infection Prevention: environmental surveillance performed hand hygiene promoted rest/sleep promoted single patient room provided Taken 02/26/2025 1134 by Dena Tolbert RN Infection Management: aseptic technique maintained Problem: Adult Inpatient Plan of Care Goal: Plan of Care Review Outcome: Ongoing, Progressing Flowsheets Taken 02/26/20252238 by Crystal Durán Progress: improving Taken 02/26/2025 1134 by Dena Tolbert RN Plan of Care Reviewed With: patient Goal: Patient-Specific Goal (Individualized) Outcome: Ongoing, Progressing Flowsheets (Taken 02/27/2025 1704) Patient/Family-Specific Goals (Include Timeframe): Patient's antiXa will remain therapeutic throughout this shift. Individualized Care Needs: heparin drip Anxieties, Fears or Concerns: none Goal: Absence of Hospital-Acquired Illness or Injury Outcome: Ongoing, Progressing Intervention: Identify and Manage Fall Risk Flowsheets (Taken 02/27/2025 0600 by Crystal Durán) Safety Promotion/Fall Prevention: activity supervised assistive device/personal items within reach clutter-free environment maintained lighting adjusted nonskid shoes/slippers when out of bed room organization consistent safety round/check completed Intervention: Prevent Skin Injury Flowsheets (Taken 02/23/20252238 by Crystal Durán) Skin Protection: incontinence pads utilized pulse oximeter probe site changed Intervention: Prevent and Manage VTE (Venous Thromboembolism) Risk Flowsheets (Taken 02/27/2025 1505) VTE Prevention/Management: medication Intervention: Prevent Infection Flowsheets (Taken 02/26/20252238 by Crystal Durán) Infection Prevention: environmental surveillance performed hand hygiene promoted rest/sleep promoted single patient room provided Goal: Optimal Comfort and Wellbeing Outcome: Ongoing, Progressing Intervention: Provide Person-Centered Care Flowsheets (Taken 02/26/20252238 by Crystal Durán) Trust Relationship/Rapport: care explained emotional support provided empathic listening provided questions answered questions encouraged thoughts/feelings acknowledged reassurance provided Problem: Fall Injury Risk Goal: Absence of Fall and Fall-Related Injury Outcome: Ongoing, Progressing Intervention: Identify and Manage Contributors Flowsheets Taken 02/26/20252238 by Crystal Durán Medication Review/Management: medications reviewed Taken 02/25/20252231 by Crystal Durán Self-Care Promotion: independence encouraged BADL personal objects within reach Intervention: Promote Injury-Free Environment Flowsheets (Taken 02/27/2025 0600 by Crystal Durán) Safety Promotion/Fall Prevention: activity supervised assistive device/personal items within reach clutter-free environment maintained lighting adjusted nonskid shoes/slippers when out of bed room organization consistent safety round/check completed Problem: Heart Failure Goal: Optimal Coping Outcome: Ongoing, Progressing Intervention: Support Psychosocial Response Flowsheets (Taken 02/26/20252238 by Crystal Durán) Supportive Measures: active listening utilized decision-making supported relaxation techniques promoted verbalization of feelings encouraged self-care encouraged Goal: Optimal Cardiac Output and Blood Flow Outcome: Ongoing, Progressing Intervention: Optimize Cardiac Output Flowsheets Taken 02/27/20251708 by Felicitas Weber RN Stabilization Measures: verbal stimulation provided Taken 02/26/20252238 by Crystal Durán Environmental Support: calm environment promoted caregiver consistency promoted rest periods encouraged environmental consistency promoted Goal: Stable Heart Rate and Rhythm Outcome: Ongoing, Progressing Intervention: Monitor and Manage Cardiac Rhythm Effect Flowsheets (Taken 02/27/20251708) Dysrhythmia Management: (telemetry monitoring) other (see comments) Goal: Fluid and Electrolyte Balance Outcome: Ongoing, Progressing Intervention: Monitor and Manage Fluid and Electrolyte Balance Flowsheets (Taken 02/26/20252238 by Crystal Durán) Fluid/Electrolyte Management: fluids adjusted Goal: Optimal Functional Ability Outcome: Ongoing, Progressing Intervention: Optimize Functional Ability Flowsheets (Taken 02/25/20252231 by Crystal Durán) Self-Care Promotion: independence encouraged BADL personal objects within reach Goal: Improved Oral Intake Outcome: Ongoing, Progressing Intervention: Promote and Optimize Nutrition Intake Flowsheets (Taken 02/25/20252231 by Crystal Durán) Oral Nutrition Promotion: rest periods promoted social interaction promoted Goal: Effective Oxygenation and Ventilation Outcome: Ongoing, Progressing Intervention: Promote Airway Secretion Clearance Flowsheets (Taken 02/25/20252231 by Crystal Durán) Breathing Techniques/Airway Clearance: deep/controlled cough encouraged Intervention: Optimize Oxygenation and Ventilation Flowsheets (Taken 02/25/20252231 by Crystal Durán) Airway/Ventilation Management: oxygen therapy provided position adjusted Goal: Effective Breathing Pattern During Sleep Outcome: Ongoing, Progressing Intervention: Monitor and Manage Obstructive Sleep Apnea Flowsheets (Taken 02/26/20252238 by Crystal Durán) Medication Review/Management: medications reviewed * Progress Notes - Kasey Carnes, PharmD - 02/27/2025 3:51 PM EDT Antithrombosis Monitoring: Warfarin Awais Smith is a 54 y.o. female who has been continued on warfarin. Warfarin Indication & Goal Anticoagulation Indication/Goal Warfarin Indication: Mechanical mitral valve;Atrial fibrillation Reason DOAC not prescribed: Other ( Comment) Other Reason: mechanical valve Duration of Anticoagulation: Indefinite Target INR: 2.5-3.5 Warfarin Prior to Admission: Yes Prior to Admission Daily Warfarin Regimen: 4 mg daily per patient but last filled 3 mg daily #30 in11/2024 Prior to Admission Weekly Warfarin Dose: 28 mg (reported) Assessment Warfarin Drug Interactions Inhibitors of Warfarin Metabolism: HMG Co-A Inhibitors (Statins);Other (comment) Other Inhibitor: methimazole Increased Bleeding Risk: Unfractionated Heparin Interacting medications started/stopped in past 72 hours?: No Any warfarin reversal given?: No Anticoagulation Assessment Warfarin Sensitivity Risk Factors: Acute decompensated heart failure;Chronic liver, renal, or thyroid disease;Drug interaction: Inhibitors of warfarin metabolism Warfarin Sensitivity Score: High (1 or more Warfarin Sensitivity Risk Factors) Nutritional Intake: Normal PO Intake Today's INR : Subtherapeutic Warfarin INR & Dose Trends Date INR Warfarin Dose (mg) Comments 02/23 1.3 4 mg Full dose heparin bridge protocol 02/24 1.5 4 mg Full dose heparin bridge protocol 02/25 1.6 5 mg Full dose heparin bridge protocol 02/26 1.8 5 mg Full dose heparin bridge protocol 02/27 2.1 5 mg Full dose heparin bridge protocol Plan Anticoagulation Plan Warfarin Pharmacist Managed?: Yes Warfarin Plan: Continue current dose Specify Warfarin Dose: 5mg po daily [facility] Warfarin Dosing Protocol Followed?: No Reason for Protocol Departure: VAD Bridging Agent in Conjunction With Warfarin? : Yes Ordered Agents: Unfractionated heparin INR Monitoring Frequency: Monitor INR daily Patient Education : Incomplete Transitions of Care Outpatient provider managing warfarin after [facility] discharge: [facility], will need new referral Recommended date for outpatient INR assessment: TBD Will continue to follow patient's clinical progress daily. Kasey Carnes, PharmD, [facility] Cardiology Clinical Pharmacist, Heart Failure Contact: Epic Chat * Progress Notes - Ro Toro, NET APPLICATION ARCHITECT, DNP - 02/27/2025 11:57 AM EDT Subjective: Ms. Smith is sitting up in bed. ORA. Currently receiving HD. Denies any issues overnight. Continues to report improvement in symptomology, she denies shortness of breath, OBRIEN; resolved conversational dyspnea. Documented 775ml uop yesterday, Scr 4.29. INR 2.1; remains on warfarin with heparin gttbridge. Review of symptoms Constitutional: Negative for decreased appetite and + weight gain. Cardiovascular: Negative for chest pain, +dyspnea on exertion, +leg swelling, near-syncope, +orthopnea, palpitations, +paroxysmal nocturnal dyspnea and syncope. Respiratory: Negative for cough, +shortness of breath and sleep disturbances due to breathing. Gastrointestinal: Negative for bloating. 02/27/2025 8:05 AM 02/27/2025 8:31 AM 02/27/2025 8:46 AM 02/27/2025 9:16 AM 02/27/2025 9:46 AM 02/27/2025 10:16 AM 02/27/2025 10:46 AM Vitals Systolic 106 97 106 109 112 111 104 Diastolic 66 64 64 68 68 66 68 Heart Rate 80 82 78 82 82 81 81 Temp 36.3 C 36.4 C Resp 16 16 Physical Exam Constitutional: Appearance: Normal appearance. Resting in bed HENT: Head: Normocephalic and atraumatic. Neck: none Cardiovascular: Rate and Rhythm: Normal rate and paced rhythm. Heart sounds: Normal heart sounds. Edema: none Pulmonary: Effort: Pulmonary effort is normal (improved from yesterday). ORA Breath sounds: Normal breath sounds. Abdominal: General: Abdomen is rounded. Palpations: Abdomen is firm. NT, no guarding or rigidity Skin: General: Skin is warm and dry. Right chest tunneled dialysis catheter Neurological: General: No focal deficit present. Mental Status: The patient is alert and oriented to person, place, and time. Psychiatric: Mood and Affect: Mood normal. Behavior: Behavior normal. Cardiac Testing -RIA- LVED 20-25%, RV dilated, RVSF moderately reduced, no thrombus seen, mechanical MV well seated, echogenic mass extending along the MV prosthetic ring, small mobile echogenic are consistent with thrombus, mild TR, trace HI, -TTE 02/01/25- no mass or thrombus seen, LVEF 22%, global hypokinesis of LV, RV dilated, RVSF reduced, LV size severely increased, trace AR, mechanical MV well seated, MR present, severe TR, mild HI, LVIDd 5.8 -TTE02/24/25- LV severely dilated, LVEF 23%, RV moderately dilated, RVSF reduced, RVSP moderately elevated, mild AR, mechanical MV well seated, MR severely cannot be assessed, Severe TR, mild HI, LVIDd 6.6 Imaging Echo, Adult Transthoracic Complete Result Date: 02/24/2025 Left Ventricle: The left ventricular systolic function is severely reduced. The LVEF as measured bybiplane volume is 23%. Right Ventricle: The right ventricle is moderately dilated. The right ventricular systolic function is reduced. There is regional wall motion abnormalities. There is right ventricular free wall akinesis. There is right ventricular apical akinesis. The estimated right ventricular systolic pressure is 51 mmHg. Right ventricular systolic pressure is moderately elevated (50-70mmHg). Mitral Valve: There is a bileaflet mechanical mitral valve (35/25 mm ON-X) that is well seated. The mean mitral valve pressure gradient is estimated to be 4 mmHg at a heart rate of 78 bpm. The gradient is normal for this prosthetic valve. Tricuspid Valve: There is severe tricuspid regurgitation. There is systolic flow reversal of the hepatic veins consistent with significant tricuspid valve regurgitation. Pericardium: No pericardial effusion. Compared to the most recently available prior study, and allowing for differences in image quality and technique, there is no significant interval c hange noted. Echo, Adult Transthoracic Complete Result Date: 02/01/2025 Left Ventricle: The left ventricle is dilated. There is eccentric hypertrophy. No left ventricular mass or thrombus is seen. The LVEF as measured by biplane volume is 22%. The calculated cardiac index based on LVOT Doppler technique is normal. Unable to assess diastolic function due to mitral valvesurgery. There is global hypokinesis of the left ventricle. See diagram below for wall motion findings. Right Ventricle: The right ventricle is dilated. A catheter/lead is present in the right ventricle. The right ventricular systolic function is reduced. Mitral Valve: There is a bileaflet mechanical mitral valve (35/25 mm ON-X) that is well seated. Mitral regurgitation is present; however, its se verity cannot be assessed due to shielding from the prosthesis. There is no mitral stenosis. The mean mitral valve pressure gradient is estimated to be 5 mmHg at a heart rate of 80 bpm. Tricuspid Valve: There is severe tricuspid regurgitation. IVC/SVC: Based on the IVC size and respiratory variation, the estimated right atrial pressure is 15mmHg. Compared to the most recently available prior study, and allowing for differences in image quality and technique, there is no significant interval change noted. Echo, Adult Transthoracic (TTE) Limited Result Date: 05/25/2024 Compared to the most recently available prior study, and allowing for differences in image quality and technique, there is no significant interval change noted. Echo, Adult Transthoracic Complete Result Date: 04/24/2024 Left Ventricle: Based on the linear dimension and/or 2D volumes, the left ventricle is severely dilated in size. There is severe eccentric hypertrophy. The left ventricular systolic function is severely reduced. The LVEF as measured by biplane volume is 21%. Unable to assess diastolic function due to mitral valve surgery. There is global hypokinesis of the left ventricle. Right Ventricle: The right ventricle is mildly dilated. The right ventricular systolic function is mildly reduced. Right ventricular systolic pressure is moderately elevated (50-70mmHg). The estimated right ventricular systolic pressure is 56 mmHg. Mitral Valve: There is a bileaflet mechanical mitral valve (35/25 mm On-X) that is well seated. Mitral regurgitation is present; however, its severity cannot be assessed due to shielding from the prosthesis. The mean mitral valve pressure gradient is estimated to be 14 mmHg at a heart rate of 84 bpm. The gradient is abnormally high for this prosthetic valve due to combination of regurgitation and stenosis. Tricuspid Valve: There is moderate tricuspid regurgitation. Compared to the most recently available prior study, and allowing for differences in image quality and technique, LV systolic function is worse. The mechanical mitral mean gradient is now significantly elevated. Labs Lab Results Component Value Date HGB 10.4 (L) 02/27/2025 HCT 33.4 (L) 02/27/2025 PLT 166 02/27/2025 CHOL ORDERED ERRONEOUSLY BY LAB. CRED[facility]. 09/03/2017 TRIG ORDERED ERRONEOUSLY BY LAB. [facility]. 09/03/2017 HDL ORDERED ERRONEOUSLY BY LAB. [facility]. 09/03/2017 LDLCALC ORDERED ERRONEOUSLY BY LAB. [facility]. 09/03/2017 ALT 12 02/23/2025 AST 18 02/23/2025 NA 136 02/27/2025 K 4.4 02/27/2025 CREATININE 4.29 (H) 02/27/2025 BUN 53 (H) 02/27/2025 CO2 19 (L) 02/27/2025 TSH 18.70 (H) 11/16/2024 INR 2.1 (H) 02/27/2025 HGBA1C 6.2 (H) 03/23/2023 Assessment and Plan Acute on Chronic HFrEF s/t NICM NYHA IV Stage C -Significantly fluid volume overloaded -Home GDMT: toprol 100mg BID -Bumex 2mg BID daily though patient reports she is only taking it on non HD days -No IVA/ARB/ARNI/SGLT2i s/t ESRD -Bidil 20mg-37.5 2 pills TID -RIA- LVED 20-25%, RV dilated, RVSF moderately reduced, no thrombus seen, mechanical MV well seated, echogenic mass extending along the MV prosthetic ring, small mobile echogenic are consistent with thrombus, mild TR, trace HI, -TTE 02/01/25- no mass or thrombus seen, LVEF 22%, global hypokinesis of LV, RV dilated, RVSF reduced, LV size severely increased, trace AR, mechanical MV well seated, MR present, severe TR, mild HI, LVIDd 5.8 -Patient is not a candidate for renal txp as her heart function is too poor. Nor is she a dual organ heart/kidney txp candidate as she has has 2 prior sternotomies as well as compliance issues -NT probnp 41K on admission -Patient received 1mg IV bumex in ED Plan: -Toprol started at 25mg BID (home dose 100mg BID); increased to 50mg BID today -Bidil not on formulary- started isordil 20mg TID, and hydralazine 37.5mg TID -TTE- LV severely dilated, LVEF 23%, RV moderately dilated, RVSF reduced, RVSP moderately elevated,mild AR, mechanical MV well seated, MR severely cannot be assessed, Severe TR, mild HI, LVIDd 6.6 -2mg IV BID bumex on nondialysis days - currently scheduled [place] [facility] [place] but will needto be changed to Wednesday, , Wednesday, Wednesday on dc -Patient has a Wednesday, Wednesday, Wednesday chair outpatient for HD; but will be getting HD Wednesday, , Wednesday inpatient ESRD -Was on PD but developed abscess -Transitioned to HD -Per patient she has not missed any iHD appointments -Was getting 3L removed at [facility] HD however patient reports that she was nolonger tolerating that (she was having ramping) so fluid removal was decreased to 2L -She started having increase fluid retention right after fluid removal was reduced -Bumex 2mg 2mg BID non HD days -No IVA/ARB/ARNI/SGLT2i s/t ESRD Plan: -Nephrology consulted -[facility] dialysis -Avoid nephrotoxic medications -Renally dose medications -Resumed sodium bicarb and calcitrol -Low phos diet for hyperphosphatemia; patient does not appear to be on phos binder at home -Received HD on Wednesday and Wednesday -Patient has a Wednesday, Wednesday, Wednesday chair outpatient for HD; but will be getting HD Wednesday, , Wednesday inpatient Severe MR -S/p MV repair (2019) followed by mechanical valve replacement (2019) -Well seated per RIA 05/2024 -Mitral valve thrombus note on RIA 05/2024 -Supposed to be anticoagulated on warfarin. Referral has been sent to [facility] whohave been trying to contact patient for multiple months with no response. Therefore, patient has not had any recent INRs drawn outpatient -Patient does report current warfarin use; stating she is on 4mg daily Plan: -INR 1.3 on admission; goal 2.5-3.5 d/t Mechanical valve -Started warfarin at 4mg -Full dose heparin gtt started CAD -S/P RUBEN to LAD (2020) -ASA and statin resumed PAF -S/p BiV ICD with AV yared ablation with MD Ramirez 05/2024 -H/O amio thyrotoxicosis -Follow with MD Ramirez Plan: -Toprol started at 25mg BID (home dose 100mg BID) HTN HLD -Statin resumed -Bidil not on formulary- started hydralazine 37.5mg TID and isosorbide 20mg TID Hyperthyroidism -In the setting of amiodarone thyrotoxicosis -Continue home methimazole Hypocalcemia Hypokalemia Hypomagnesemia -Replace as needed -Amiloride for hypokalemia Dispo plan: pending FEN: reg cardiac 2g NA, 1800 FR low phos Ppx: warfarin, PPI The above plan of care was discussed in detail with the attending, MD Brambila. Ro Toro APRN, DNP * Progress Notes - Tamara Rose MD - 02/27/2025 10:21 AM EDT Nephrology Progress Note Patient: Awais Smith Admit Date: 02/23/2025 Reason for Consult: ESRD on dialysis Subjective Patient seen and examined. Reviewed interval events, flowsheets, labs and notes. Patient seen this morning, resting comfortably in bed reports she feels better. Urine output yesterday was 1.1 L and she was net-808 this is with Bumex 2 mg given once. She is on room air. Objective Visit Vitals BP 112/68 Pulse 82 Temp 36.4 ??C (97.6 ??F) (Oral) Resp 16 Ht 1.676 m (5' 5.98 ) Wt 80.1 kg (176 lb 9.4 oz) SpO2 96% BMI 28.52 kg/m?? OB Status Hysterectomy Smoking Status Former BSA 1.93 m?? Temp: [35.8 ??C (96.5 ??F)-36.7 ??C (98 ??F)] 36.4 ??C (97.6 ??F) Heart Rate: [78-87] 82 Resp: [13-30] 16 BP: (97-123)/(64-78) 112/68 Physical Exam: GEN: Alert and oriented, no acute distress EYES: Clear conjunctivae bilaterally, EOMI NECK: Supple, trachea midline CV: Normal rate PULM: Nml resp rate, no resp distress SKIN: Warm and dry, no rashes NEURO: A&OX3, no gross focal deficit PSYCH: Normal mood and affect Access: [facility] Problem List Principal Problem: Acute decompensated heart failure (CMS/HCC) Medications: Current Medications: Current Scheduled Medications[1] Current Continuous Medications[2] Laboratory: LAB RESULTS Renal Panel: Lab Results Component Value Date NA 136 02/27/2025 K 4.4 02/27/2025 CL 99 02/27/2025 CO2 19 (L) 02/27/2025 BUN 53 (H) 02/27/2025 CREATININE 4.29 (H) 02/27/2025 EGFR 11.7 02/27/2025 CA ORDERED ERRONEOUSLY BY LAB. CREDITED. 09/03/2017 PHOS 6.6 (H) 02/27/2025 ALBUMIN 3.6 02/23/2025 MBD: Lab Results Component Value Date PTH 553 (H) 03/24/2023 CA ORDERED ERRONEOUSLY BY LAB. CRED[facility]. 09/03/2017 CALCIUM 8.9 02/27/2025 PHOS 6.6 (H) 02/27/2025 MG 2.1 02/27/2025 VITAMIN D 25 Lab Results Component Value Date VITD25 27.8 03/24/2023 PTHRP No results found for: PLASMA Urine studies: Lab Results Component Value Date CREATUR 45 11/18/2024 CBC: Lab Results Component Value Date WBC 6.63 02/27/2025 RBC 3.51 (L) 02/27/2025 HGB 10.4 (L) 02/27/2025 HCT 33.4 (L) 02/27/2025 PLT 166 02/27/2025 MCV 95 02/27/2025 MCH 29.6 02/27/2025 MCHC 31.1 02/27/2025 RDW 17.9 (H) 02/27/2025 NRBC 0.0 02/27/2025 Iron studies: Lab Results Component Value Date FERRITIN 81 03/24/2023 IRON 32 03/24/2023 TIBC 319 03/24/2023 Impression & Plan: 54 y.o. female with a historyof HFrEF due to NICM, severe MR s/p MV repair (2019) followed by mechanical MV replacement (2019) on warfarin, CAD s/p RUBEN to LAD (2020), ICD-in place (2020), PAF and ESRD on home HD. Patient presents to [facility] on 02/23/2025 w/ worsening shortness of breath. Nephrology consulted for ESRD management. #ESRD on HD Outpatient HD: - Outpatient Behavior Management Specialist: Dr. Hawkins - Residual renal functions: yes - Access: [facility] - MWF [facility] . [facility] Assessment and Plan: #Metabolic acidosis #Hypokalemia #Hyperphosphatemia #Hypervolemia in renal insufficiency #Disorders of electrolytes #constipation #intraabdominal abscess?/fluid collections #Acute on Chronic HFrEF EF 22% #Non-ischemic cardiomyopathy #A flutter #Mechanical Mitral valve on Warfarin - HD today, will plan to continue TTS HD while inpt (okay for her to resume MWF HD when she dc's). - Okay to continue home Bumex 2mg BID - Continue home phos binders - Recommend low phos diet - Please follow strict I/O's - Continue counseling regarding dietary restrictions. Dialysis Medications sodium citrate anticoagulant 4 % flush 6 mL 6 mL, Intracatheter, Every visit, As needed alteplase (Cathflo Activase) injection 4 mg 4 mg, Intracatheter, Every visit, As needed Dialysis Treatment Hemodialysis inpatient 3 hr (180 min); Revaclear 400; 36; 3; 2.5; 138; 35; 1-2; Remove UF as tolerated; 300-400; 2X Blood Flow Rate; Adult; HD Catheter; Right Once Every visit, Once Duration of Treatment: 3 hr (180 min) Dialyzer: Revaclear 400 Dialysate Temperature (Centigrade): 36 Dialysate: Potassium (mEq/L): 3 Dialysate: Calcium (mEq/L): 2.5 Dialysate: Sodium (mEq/L): 138 Dialysate: Bicarb (mEq/L): 35 Net fluid removal (Ultrafiltration) (L): 1-2 As tolerated: Remove UF as tolerated BFR (mL/min): 300-400 Dialysate Flow Rate (mL/min): 2X Blood Flow Rate Tubing: Adult Access Site: HD Catheter Location: Right Nursing general assessments and interventions Every visit, Once Labs Hepatitis B Surface Antibody, Quantitative Every 28 days, [facility] Hepatitis panel, acute Every 28 days, Once [facility] Nephrology will continue to follow. Please call or page with any questions. Tamara Rose MD Nephrology/Critical Care Medicine Fellow Pager: [phone] [1] aMILoride, 5 mg, Oral, Daily aspirin, 81 mg, Oral, Daily atorvastatin, 40 mg, Oral, Nightly bumetanide, 2 mg, Oral, 2 times per day on Wednesday calcitriol, 0.5 mcg, Oral, Once per day on Wednesday cetirizine, 10 mg, Oral, Nightly hydrALAZINE, 37.5 mg, Oral, q8h JOANIE isosorbide dinitrate, 20 mg, Oral, q8h JOANIE magnesium oxide, 400 mg, Oral, Daily methIMAzole, 10 mg, Oral, Daily metoprolol succinate XL, 50 mg, Oral, BID mupirocin, 1 Application, Each Nostril, BID pantoprazole, 40 mg, Oral, Daily before breakfast sodium bicarbonate, 1,300 mg, Oral, Daily sodium chloride, 10 mL, Intravenous, q12h warfarin, 5 mg, Oral, Daily [2] heparin - COM Adult Full Dose Protocol - MAR calculator by anti-Xa, 0-35 Units/kg/hr, Last Rate: 22 Units/kg/hr (02/27/25 0800) Cosigned by Duane Li MD at 02/28/2025 10:12 AM EDT Associated attestation - Duane Li MD - 02/28/2025 10:12 AM EDT I saw and evaluated the patient with the resident/fellow. I discussed the case with the resident/fellow and agree with the findings and plan as documented. * Care Plan - Crystal Durán - 02/26/2025 10:42 PM EDT Problem: Hemodialysis Goal: Safe, Effective Therapy Delivery Outcome: Ongoing, Progressing Goal: Effective Tissue Perfusion Outcome: Ongoing, Progressing Goal: Absence of Infection Signs and Symptoms Outcome: Ongoing, Progressing Problem: Adult Inpatient Plan of Care Goal: Plan of Care Review Outcome: Ongoing, Progressing Flowsheets Taken 02/26/20252238 by Crystal Durán Progress: improving Taken 02/26/2025 1134 by Dena Tolbert RN Plan of Care Reviewed With: patient Goal: Patient-Specific Goal (Individualized) Outcome: Ongoing, Progressing Flowsheets (Taken 02/26/20252022) Patient/Family-Specific Goals (Include Timeframe): Heparin level will remain therapeutic throughoutthis shift Individualized Care Needs: Heparin drip Anxieties, Fears or Concerns: none stated Goal: Absence of Hospital-Acquired Illness or Injury Outcome: Ongoing, Progressing Intervention: Identify and Manage Fall Risk Flowsheets (Taken 02/26/20252199) Safety Promotion/Fall Prevention: activity supervised assistive device/personal items within reach clutter-free environment maintained lighting adjusted nonskid shoes/slippers when out of bed room organization consistent safety round/check completed Intervention: Prevent Skin Injury Flowsheets Taken 02/26/20252199 Body Position: supine, legs elevated Taken 02/23/20252238 Skin Protection: incontinence pads utilized pulse oximeter probe site changed Intervention: Prevent and Manage VTE (Venous Thromboembolism) Risk Flowsheets (Taken 02/26/20252199) VTE Prevention/Management: SCDs (sequential compression devices) off previous patient education reinforced Intervention: Prevent Infection Flowsheets (Taken 02/26/20252238) Infection Prevention: environmental surveillance performed hand hygiene promoted rest/sleep promoted single patient room provided Goal: Optimal Comfort and Wellbeing Outcome: Ongoing, Progressing Intervention: Monitor Pain and Promote Comfort Flowsheets (Taken 02/26/20252238) Pain Management Interventions: medication (see MAR) care clustered emotional support rest quiet environment facilitated Intervention: Provide Person-Centered Care Flowsheets (Taken 02/26/20252238) Trust Relationship/Rapport: care explained emotional support provided empathic listening provided questions answered questions encouraged thoughts/feelings acknowledged reassurance provided Problem: Fall Injury Risk Goal: Absence of Fall and Fall-Related Injury Outcome: Ongoing, Progressing Intervention: Identify and Manage Contributors Flowsheets Taken 02/26/20252238 Medication Review/Management: medications reviewed Taken 02/25/20252231 Self-Care Promotion: independence encouraged BADL personal objects within reach Intervention: Promote Injury-Free Environment Flowsheets (Taken 02/26/20252199) Safety Promotion/Fall Prevention: activity supervised assistive device/personal items within reach clutter-free environment maintained lighting adjusted nonskid shoes/slippers when out of bed room organization consistent safety round/check completed Problem: Heart Failure Goal: Optimal Coping Outcome: Ongoing, Progressing Intervention: Support Psychosocial Response Flowsheets Taken 02/26/20252238 Supportive Measures: active listening utilized decision-making supported relaxation techniques promoted verbalization of feelings encouraged self-care encouraged Taken 02/25/20252231 Life Transition/Adjustment: decision-making facilitated Family/Support System Care: self-care encouraged support provided Goal: Optimal Cardiac Output and Blood Flow Outcome: Ongoing, Progressing Intervention: Optimize Cardiac Output Flowsheets (Taken 02/26/20252238) Stabilization Measures: legs elevated Environmental Support: calm environment promoted caregiver consistency promoted rest periods encouraged environmental consistency promoted Goal: Stable Heart Rate and Rhythm Outcome: Ongoing, Progressing Intervention: Monitor and Manage Cardiac Rhythm Effect Flowsheets (Taken 02/26/2025 1134 by Dena Tolbert RN) Dysrhythmia Management: other (see comments) Goal: Fluid and Electrolyte Balance Outcome: Ongoing, Progressing Intervention: Monitor and Manage Fluid and Electrolyte Balance Flowsheets (Taken 02/26/20252238) Fluid/Electrolyte Management: fluids adjusted Goal: Optimal Functional Ability Outcome: Ongoing, Progressing Intervention: Optimize Functional Ability Flowsheets Taken 02/26/20252199 Activity Management: activity adjusted per tolerance Taken 02/25/20252231 Self-Care Promotion: independence encouraged BADL personal objects within reach Goal: Improved Oral Intake Outcome: Ongoing, Progressing Intervention: Promote and Optimize Nutrition Intake Flowsheets Taken 02/26/20252238 Nutrition Interventions: food preferences provided Taken 02/25/20252231 Oral Nutrition Promotion: rest periods promoted social interaction promoted Goal: Effective Oxygenation and Ventilation Outcome: Ongoing, Progressing Intervention: Promote Airway Secretion Clearance Flowsheets Taken 02/26/20252199 Activity Management: activity adjusted per tolerance Taken 02/26/20251999 Cough And Deep Breathing: done independently per patient Taken 02/25/20252231 Breathing Techniques/Airway Clearance: deep/controlled cough encouraged Intervention: Optimize Oxygenation and Ventilation Flowsheets Taken 02/26/20252199 Head of Bed (HOB) Positioning: HOB lowered Taken 02/25/20252 Airway/Ventilation Management: oxygen therapy provided position adjusted Goal: Effective Breathing Pattern During Sleep Outcome: Ongoing, Progressing Intervention: Monitor and Manage Obstructive Sleep Apnea Flowsheets (Taken 02/26/2025 223) Medication Review/Management: medications reviewed * Progress Notes - Kasey Carnes, PharmD - 02/26/2025 4:00 PM EDT Antithrombosis Monitoring: Warfarin Awais Smith is a 54 y.o. female who has been continued on warfarin. Warfarin Indication & Goal Anticoagulation Indication/Goal Warfarin Indication: Mechanical mitral valve;Atrial fibrillation Reason DOAC not prescribed: Other ( Comment) Other Reason: mechanical valve Duration of Anticoagulation: Indefinite Target INR: 2.5-3.5 Warfarin Prior to Admission: Yes Prior to Admission Daily Warfarin Regimen: 4 mg daily per patient but last filled 3 mg daily #30 in11/2024 Prior to Admission Weekly Warfarin Dose: 28 mg (reported) Assessment Warfarin Drug Interactions Inhibitors of Warfarin Metabolism: HMG Co-A Inhibitors (Statins);Other (comment) Other Inhibitor: methimazole Increased Bleeding Risk: Unfractionated Heparin Interacting medications started/stopped in past 72 hours?: Yes Medication started/stopped in past 72 hours: Heparin full dose protocol Any warfarin reversal given?: No Anticoagulation Assessment Warfarin Sensitivity Risk Factors: Acute decompensated heart failure;Chronic liver, renal, or thyroid disease;Drug interaction: Inhibitors of warfarin metabolism Warfarin Sensitivity Score: High (1 or more Warfarin Sensitivity Risk Factors) Nutritional Intake: Normal PO Intake Today's INR : Subtherapeutic Warfarin INR & Dose Trends Date INR Warfarin Dose (mg) Comments 02/23 1.3 4 mg Full dose heparin bridge protocol 02/24 1.5 4 mg Full dose heparin bridge protocol 02/25 1.6 5 mg Full dose heparin bridge protocol 02/26 1.8 5 mg Full dose heparin bridge protocol Plan Anticoagulation Plan Warfarin Pharmacist Managed?: Yes Warfarin Plan: Continue current dose Specify Warfarin Dose: 5 mg po daily [facility] Warfarin Dosing Protocol Followed?: No Reason for Protocol Departure: VAD Bridging Agent in Conjunction With Warfarin? : Yes Ordered Agents: Unfractionated heparin INR Monitoring Frequency: Monitor INR daily Patient Education : Incomplete Transitions of Care Outpatient provider managing warfarin after [facility] discharge: [facility], will need new referral Recommended date for outpatient INR assessment: TBD Will continue to follow patient's clinical progress daily. Kasey Carnes PharmD, [facility] Cardiology Clinical Pharmacist, Heart Failure Contact: [facility] Chat * Progress Notes - Yg Henderson RN - 02/26/2025 11:54 AM EDT Case Management Adult Initial Progress Note Awais Smith 54 y.o. female CSN: [id number] Admission: 02/23/2025 7:51 AM Primary Problem: Acute decompensated heart failure (CMS/HCC) [employer] Blind Mechanic reviewed chart and spoke with patient to complete this Initial Case Management Assessment. PCP: Az David MD (Inactive) Emergency Contact: Extended Emergency Contact Information Primary Emergency Contact: BuchananZoë Mobile Relation: Mother Preferred language: Kiswahili Filler Operator needed? No Secondary Emergency Contact: Bola Smith Mobile Relation: Spouse Insurance: Primary Visit Coverage Payer Plan Sponsor Code Group Number Group Name [employer] GOLD PLUS [id number] Primary Visit Coverage Subscriber Subscriber ID Subscriber Name Subscriber SSN Subscriber Address [id number] AWAIS SMITH [id number] [place] [id number] Patient information: Primary Caregiver: Self Support System: Immediate family Daily Living Activities: Functional Status: Independent Living Arrangements: Family Type of Residence: Private residence, Single Level [address] [facility] [address] Smoker in the Home?: Yes Current DME: Equipment Currently Used at Home: none Anticipated Discharge Date: tbd Patient's Discharge Goal: return home Assistance Available at Discharge: self, family Discharge Transport: family Follow Up Transport: family Home Health / Home Infusion / Outpatient Dialysis Services: [facility]-- 12-3 for dialysis Additional Comments: Discussed poc with pt. Daughter will provide transport at time of d/c. Following for cm d/c needs. Yg Henderson RN Case Campus President 4 * Care Plan - Dena Tolbert RN - 02/26/2025 11:37 AM EDT Problem: Hemodialysis Goal: Safe, Effective Therapy Delivery Outcome: Ongoing, Progressing Intervention: Optimize Device Care and Function Flowsheets (Taken 02/26/2025 1134) Medication Review/Management: medications reviewed Goal: Effective Tissue Perfusion Outcome: Ongoing, Progressing Goal: Absence of Infection Signs and Symptoms Outcome: Ongoing, Progressing Intervention: Prevent or Manage Infection Flowsheets (Taken 02/26/2025 1134) Infection Management: aseptic technique maintained Infection Prevention: environmental surveillance performed hand hygiene promoted Problem: Adult Inpatient Plan of Care Goal: Plan of Care Review 02/26/2025 1137 by Dena Tolbert RN Outcome: Ongoing, Progressing 02/26/2025 1134 by Dena Tolbert RN Flowsheets (Taken 02/26/2025 1134) Progress: improving Plan of Care Reviewed With: patient Goal: Patient-Specific Goal (Individualized) 02/26/2025 1137 by Dena Tolbert RN Outcome: Ongoing, Progressing 02/26/2025 1134 by Dena Tolbert RN Flowsheets (Taken 02/26/2025 0800) Patient/Family-Specific Goals (Include Timeframe): Heparin level will remain therapeutic throughoutthis shift. Individualized Care Needs: Heparin Drip Anxieties, Fears or Concerns: None stated Goal: Absence of Hospital-Acquired Illness or Injury Outcome: Ongoing, Progressing Intervention: Identify and Manage Fall Risk Flowsheets (Taken 02/26/2025 1134) Safety Promotion/Fall Prevention: activity supervised Intervention: Prevent Infection Flowsheets (Taken 02/26/2025 1134) Infection Prevention: environmental surveillance performed hand hygiene promoted Goal: Optimal Comfort and Wellbeing Outcome: Ongoing, Progressing Intervention: Provide Person-Centered Care Flowsheets (Taken 02/26/2025 1134) Trust Relationship/Rapport: care explained emotional support provided Problem: Fall Injury Risk Goal: Absence of Fall and Fall-Related Injury Outcome: Ongoing, Progressing Intervention: Identify and Manage Contributors Flowsheets (Taken 02/26/2025 1134) Medication Review/Management: medications reviewed Intervention: Promote Injury-Free Environment Flowsheets (Taken 02/26/2025 1134) Safety Promotion/Fall Prevention: activity supervised Problem: Heart Failure Goal: Optimal Coping Outcome: Ongoing, Progressing Intervention: Support Psychosocial Response Flowsheets (Taken 02/26/2025 1134) Supportive Measures: active listening utilized counseling provided decision-making supported Goal: Optimal Cardiac Output and Blood Flow Outcome: Ongoing, Progressing Intervention: Optimize Cardiac Output Flowsheets (Taken 02/26/2025 1134) Environmental Support: calm environment promoted Goal: Stable Heart Rate and Rhythm Outcome: Ongoing, Progressing Intervention: Monitor and Manage Cardiac Rhythm Effect Flowsheets (Taken 02/26/2025 1134) Dysrhythmia Management: other (see comments) Note: Monitored via tele Goal: Fluid and Electrolyte Balance Outcome: Ongoing, Progressing Intervention: Monitor and Manage Fluid and Electrolyte Balance Flowsheets (Taken 02/26/2025 1134) Fluid/Electrolyte Management: fluids adjusted Goal: Optimal Functional Ability Outcome: Ongoing, Progressing Intervention: Optimize Functional Ability Flowsheets (Taken 02/26/2025 1000) Activity Management: ambulated to bathroom back to bed Goal: Improved Oral Intake Outcome: Ongoing, Progressing Intervention: Promote and Optimize Nutrition Intake Flowsheets (Taken 02/26/2025 1134) Nutrition Interventions: food preferences provided Goal: Effective Oxygenation and Ventilation Outcome: Ongoing, Progressing Intervention: Promote Airway Secretion Clearance Flowsheets (Taken 02/26/2025 1000) Activity Management: ambulated to bathroom back to bed Goal: Effective Breathing Pattern During Sleep Outcome: Ongoing, Progressing Intervention: Monitor and Manage Obstructive Sleep Apnea Flowsheets (Taken 02/26/2025 1134) Medication Review/Management: medications reviewed * Progress Notes - Tamara Rose MD - 02/26/2025 11:03 AM EDT Nephrology Progress Note Patient: Awais Smith Admit Date: 02/23/2025 Reason for Consult: ESRD on dialysis Subjective Patient seen and examined. Reviewed interval events, flowsheets, labs and notes. Patient seen this morning, resting comfortably in bed reports she feels better. Urine output yesterday was 1.1 L and she was net-808 this is with Bumex 2 mg given once. She is on room air. Objective Visit Vitals BP 109/69 Pulse 80 Temp 36.4 ??C (97.5 ??F) (Oral) Resp 16 Ht 1.676 m (5' 5.98 ) Wt 80.1 kg (176 lb 9.4 oz) SpO2 97% BMI 28.52 kg/m?? OB Status Hysterectomy Smoking Status Former BSA 1.93 m?? Temp: [36.4 ??C (97.5 ??F)-37.1 ??C (98.8 ??F)] 36.4 ??C (97.5 ??F) Heart Rate: [79-81] 80 Resp: [15-23] 16 BP: (106-130)/(57-76) 109/69 Physical Exam: GEN: Alert and oriented, no acute distress HENT: Normocephalic, atraumatic, moist mucus membranes EYES: Clear conjunctivae bilaterally, EOMI NECK: Supple, trachea midline CV: Normal rate GI: Soft, nontender, non-distended, BS + EXT: + 1 + edema SKIN: Warm and dry, no rashes NEURO: A&OX3, moving all 4 extremities spontaneously, no gross focal deficit PSYCH: Normal mood and affect Access: [facility] Problem List Principal Problem: Acute decompensated heart failure ([facility]) Medications: Current Medications: Current Scheduled Medications[1] Current Continuous Medications[2] Laboratory: LAB RESULTS Renal Panel: Lab Results Component Value Date NA 135 (L) 02/26/2025 K 4.0 02/26/2025 CL 101 02/26/2025 CO2 19 (L) 02/26/2025 BUN 41 (H) 02/26/2025 CREATININE 3.78 (H) 02/26/2025 EGFR 13.6 02/26/2025 CA ORDERED ERRONEOUSLY BY LAB. [facility]. 09/03/2017 PHOS 5.4 (H) 02/26/2025 ALBUMIN 3.6 02/23/2025 MBD: Lab Results Component Value Date PTH 553 (H) 03/24/2023 CA ORDERED ERRONEOUSLY BY LAB. [facility]. 09/03/2017 CALCIUM 8.2 (L) 02/26/2025 PHOS 5.4 (H) 02/26/2025 MG 1.5 (L) 02/26/2025 VITAMIN D 25 Lab Results Component Value Date VITD25 27.8 03/24/2023 PTHRP No results found for: PLASMA Urine studies: Lab Results Component Value Date CREATUR 45 11/18/2024 CBC: Lab Results Component Value Date WBC 7.41 02/26/2025 RBC 3.32 (L) 02/26/2025 HGB 9.9 (L) 02/26/2025 HCT 31.2 (L) 02/26/2025 PLT 145 (L) 02/26/2025 MCV 94 02/26/2025 MCH 29.8 02/26/2025 MCHC 31.7 02/26/2025 RDW 18.1 (H) 02/26/2025 NRBC 0.0 02/26/2025 Iron studies: Lab Results Component Value Date FERRITIN 81 03/24/2023 IRON 32 03/24/2023 TIBC 319 03/24/2023 Impression & Plan: 54 y.o. female with a historyof HFrEF due to NICM, severe MR s/p MV repair (2019) followed by mechanical MV replacement (2019) on warfarin, CAD s/p RUBEN to LAD (2020), ICD-in place (2020), PAF and ESRD on home HD. Patient presents to [facility] on 02/23/2025 w/ worsening shortness of breath. Nephrology consulted for ESRD management. #ESRD on HD Outpatient HD: - Outpatient Behavior Management Specialist: Dr. Hawkins - Residual renal functions: yes - Access: [facility] - MWF HD . [facility] Assessment and Plan: #Metabolic acidosis #Hypokalemia #Hyperphosphatemia #Hypervolemia in renal insufficiency #Disorders of electrolytes #constipation #intraabdominal abscess?/fluid collections #Acute on Chronic HFrEF EF 22% #Non-ischemic cardiomyopathy #A flutter #Mechanical Mitral valve on Warfarin - No indication for HD today, will plan to continue TTS HD while inpt (okay for her to resume MWF HD when she dc's). - Okay to continue home Bumex 2mg BID - Continue home phos binders - Recommend low phos diet - Please follow strict I/O's - Avoid potential nephrotoxins, including NSAIDs, IV contrast - Continue counseling regarding dietary restrictions. Nephrology will continue to follow. Please call or page with any questions. Duane Li MD Nephrology [1] aMILoride, 5 mg, Oral, Daily aspirin, 81 mg, Oral, Daily atorvastatin, 40 mg, Oral, Nightly bumetanide, 2 mg, Oral, 2 times per day on Wednesday calcitriol, 0.5 mcg, Oral, Once per day on Wednesday cetirizine, 10 mg, Oral, Nightly hydrALAZINE, 37.5 mg, Oral, q8h JOANIE isosorbide dinitrate, 20 mg, Oral, q8h JOANIE magnesium oxide, 400 mg, Oral, Daily magnesium sulfate, 2 g, Intravenous, Once methIMAzole, 10 mg, Oral, Daily metoprolol succinate XL, 25 mg, Oral, BID mupirocin, 1 Application, Each Nostril, BID pantoprazole, 40 mg, Oral, Daily before breakfast sodium bicarbonate, 1,300 mg, Oral, Daily sodium chloride, 10 mL, Intravenous, q12h warfarin, 5 mg, Oral, Daily [2] heparin - COM Adult Full Dose Protocol - MAR calculator by anti-Xa, 0-35 Units/kg/hr, Last Rate: 22 Units/kg/hr (02/26/25 1000) Cosigned by Duane Li MD at 02/26/2025 2:18 PM EDT Associated attestation - Duane Li MD - 02/26/2025 2:18 PM EDT I saw and evaluated the patient. I discussed the case with the resident/fellow and agree with the findings and plan as documented. * Progress Notes - Ro Toro, MICHAEL, DNP - 02/26/2025 9:27 AM EDT Subjective: Ms. Smith is sitting up in bed. ORA. Denies any issues overnight. Patient reports that she feelsbetter daily. She denies shortness of breath, chest pain, abdominal pain, fever/chills. She did nothave HD yesterday. Patient received 1x dose IV bumex 2mg yesterday, documented 1.3L uop yesterday, NN 780ml; Scr 3.78. She will not receive HD today, plan is for tomorrow. Will order bumex po 2mg BID today. INR 1.8, she remains on warfarin and heparin gtt to get to INR goal of 2.5-3.5. increase metop to 50mg bid. Review of symptoms Constitutional: Negative for decreased appetite and + weight gain. Cardiovascular: Negative for chest pain, +dyspnea on exertion, +leg swelling, near-syncope, +orthopnea, palpitations, +paroxysmal nocturnal dyspnea and syncope. Respiratory: Negative for cough, +shortness of breath and sleep disturbances due to breathing. Gastrointestinal: Negative for bloating. 02/25/2025 11:54 PM 02/26/2025 12:00 AM 02/26/2025 3:34 AM 02/26/2025 4:00 AM 02/26/2025 5:00 AM 02/26/2025 7:48 AM 02/26/2025 8:14 AM Vitals Systolic 110 124 108 109 Diastolic 57 74 63 69 Heart Rate 80 80 79 80 81 80 80 Temp 36.8 C 36.4 C 36.4 C Resp 18 15 23 16 Weight (kg) 80.1 kg BMI 28.52 kg/m2 BSA (m2) 1.93 m2 Physical Exam Constitutional: Appearance: Normal appearance. Resting in bed HENT: Head: Normocephalic and atraumatic. Neck: + JVD (improved) Cardiovascular: Rate and Rhythm: Normal rate and paced rhythm. Heart sounds: Normal heart sounds. Edema: trace Pulmonary: Effort: Pulmonary effort is normal (improved from yesterday). ORA Breath sounds: Normal breath sounds. Abdominal: General: Abdomen is rounded. Palpations: Abdomen is firm. NT, no guarding or rigidity Skin: General: Skin is warm and dry. Right chest tunneled dialysis catheter Neurological: General: No focal deficit present. Mental Status: The patient is alert and oriented to person, place, and time. Psychiatric: Mood and Affect: Mood normal. Behavior: Behavior normal. Cardiac Testing -RIA- LVED 20-25%, RV dilated, RVSF moderately reduced, no thrombus seen, mechanical MV well seated, echogenic mass extending along the MV prosthetic ring, small mobile echogenic are consistent with thrombus, mild TR, trace HI, -TTE 02/01/25- no mass or thrombus seen, LVEF 22%, global hypokinesis of LV, RV dilated, RVSF reduced, LV size severely increased, trace AR, mechanical MV well seated, MR present, severe TR, mild HI, LVIDd 5.8 -TTE02/24/25- LV severely dilated, LVEF 23%, RV moderately dilated, RVSF reduced, RVSP moderately elevated, mild AR, mechanical MV well seated, MR severely cannot be assessed, Severe TR, mild HI, LVIDd 6.6 Imaging Echo, Adult Transthoracic Complete Result Date: 02/24/2025 Left Ventricle: The left ventricular systolic function is severely reduced. The LVEF as measured bybiplane volume is 23%. Right Ventricle: The right ventricle is moderately dilated. The right ventricular systolic function is reduced. There is regional wall motion abnormalities. There is right ventricular free wall akinesis. There is right ventricular apical akinesis. The estimated right ventricular systolic pressure is 51 mmHg. Right ventricular systolic pressure is moderately elevated (50-70mmHg). Mitral Valve: There is a bileaflet mechanical mitral valve (35/25 mm ON-X) that is well seated. The mean mitral valve pressure gradient is estimated to be 4 mmHg at a heart rate of 78 bpm. The gradient is normal for this prosthetic valve. Tricuspid Valve: There is severe tricuspid regurgitation. There is systolic flow reversal of the hepatic veins consistent with significant tricuspid valve regurgitation. Pericardium: No pericardial effusion. Compared to the most recently available prior study, and allowing for differences in image quality and technique, there is no significant interval change noted. Echo, Adult Transthoracic Complete Result Date: 02/01/2025 Left Ventricle: The left ventricle is dilated. There is eccentric hypertrophy. No left ventricular mass or thrombus is seen. The LVEF as measured by biplane volume is 22%. The calculated cardiac index based on LVOT Doppler technique is normal. Unable to assess diastolic function due to mitral valvesurgery. There is global hypokinesis of the left ventricle. See diagram below for wall motion findings. Right Ventricle: The right ventricle is dilated. A catheter/lead is present in the right ventricle. The right ventricular systolic function is reduced. Mitral Valve: There is a bileaflet mechanical mitral valve (35/25 mm ON-X) that is well seated. Mitral regurgitation is present; however, its se verity cannot be assessed due to shielding from the prosthesis. There is no mitral stenosis. The mean mitral valve pressure gradient is estimated to be 5 mmHg at a heart rate of 80 bpm. Tricuspid Valve: There is severe tricuspid regurgitation. IVC/SVC: Based on the IVC size and respiratory variation, the estimated right atrial pressure is 15mmHg. Compared to the most recently available prior study, and allowing for differences in image quality and technique, there is no significant interval change noted. Echo, Adult Transthoracic (TTE) Limited Result Date: 05/25/2024 Compared to the most recently available prior study, and allowing for differences in image quality and technique, there is no significant interval change noted. Echo, Adult Transthoracic Complete Result Date: 04/24/2024 Left Ventricle: Based on the linear dimension and/or 2D volumes, the left ventricle is severely dilated in size. There is severe eccentric hypertrophy. The left ventricular systolic function is severely reduced. The LVEF as measured by biplane volume is 21%. Unable to assess diastolic function due to mitral valve surgery. There is global hypokinesis of the left ventricle. Right Ventricle: The right ventricle is mildly dilated. The right ventricular systolic function is mildly reduced. Right ventricular systolic pressure is moderately elevated (50-70mmHg). The estimated right ventricular systolic pressure is 56 mmHg. Mitral Valve: There is a bileaflet mechanical mitral valve (35/25 mm On-X) that is well seated. Mitral regurgitation is present; however, its severity cannot be assessed due to shielding from the prosthesis. The mean mitral valve pressure gradient is estimated to be 14 mmHg at a heart rate of 84 bpm. The gradient is abnormally high for this prosthetic valve due to combination of regurgitation and stenosis. Tricuspid Valve: There is moderate tricuspid regurgitation. Compared to the most recently available prior study, and allowing for differences in image quality and technique, LV systolic function is worse. The mechanical mitral mean gradient is now significantly elevated. Labs Lab Results Component Value Date HGB 9.9 (L) 02/26/2025 HCT 31.2 (L) 02/26/2025 PLT 145 (L) 02/26/2025 CHOL ORDERED ERRONEOUSLY BY LAB. [facility]. 09/03/2017 TRIG ORDERED ERRONEOUSLY BY LAB. [facility]. 09/03/2017 HDL ORDERED ERRONEOUSLY BY LAB. [facility]. 09/03/2017 LDLCALC ORDERED ERRONEOUSLY BY LAB. [facility]. 09/03/2017 ALT 12 02/23/2025 AST 18 02/23/2025 NA 135 (L) 02/26/2025 K 4.0 02/26/2025 CREATININE 3.78 (H) 02/26/2025 BUN 41 (H) 02/26/2025 CO2 19 (L) 02/26/2025 TSH 18.70 (H) 11/16/2024 INR 1.8 (H) 02/26/2025 HGBA1C 6.2 (H) 03/23/2023 Assessment and Plan Acute on Chronic HFrEF s/t NICM NYHA IV Stage C -Significantly fluid volume overloaded -Home GDMT: toprol 100mg BID -Bumex 2mg BID daily though patient reports she is only taking it on non HD days -No IVA/ARB/ARNI/SGLT2i s/t ESRD -Bidil 20mg-37.5 2 pills TID -RIA- LVED 20-25%, RV dilated, RVSF moderately reduced, no thrombus seen, mechanical MV well seated, echogenic mass extending along the MV prosthetic ring, small mobile echogenic are consistent with thrombus, mild TR, trace HI, -TTE 02/01/25- no mass or thrombus seen, LVEF 22%, global hypokinesis of LV, RV dilated, RVSF reduced, LV size severely increased, trace AR, mechanical MV well seated, MR present, severe TR, mild HI, LVIDd 5.8 -Patient is not a candidate for renal txp as her heart function is too poor. Nor is she a dual organ heart/kidney txp candidate as she has has 2 prior sternotomies as well as compliance issues -NT probnp 41K on admission -Patient received 1mg IV bumex in ED Plan: -Toprol started at 25mg BID (home dose 100mg BID); increased to 50mg BID today -Bidil not on formulary- started isordil 20mg TID, and hydralazine 37.5mg TID -TTE- LV severely dilated, LVEF 23%, RV moderately dilated, RVSF reduced, RVSP moderately elevated,mild AR, mechanical MV well seated, MR severely cannot be assessed, Severe TR, mild HI, LVIDd 6.6 -2mg IV BID bumex on nondialysis days - [facility] scheduled [facility] [place] but will needto be changed to Wednesday, , Wednesday, Wednesday on dc -Patient has a Wednesday, Wednesday, Wednesday chair outpatient for HD; but will be getting HD Wednesday, , Wednesday inpatient ESRD -Was on PD but developed abscess -Transitioned to HD -Per patient she has not missed any iHD appointments -Was getting 3L removed at [facility] HD however patient reports that she was nolonger tolerating that (she was having ramping) so fluid removal was decreased to 2L -She started having increase fluid retention right after fluid removal was reduced -Bumex 2mg 2mg BID non HD days -No IVA/ARB/ARNI/SGLT2i s/t ESRD Plan: -Nephrology consulted -[facility] dialysis -Avoid nephrotoxic medications -Renally dose medications -Resumed sodium bicarb and calcitrol -Low phos diet for hyperphosphatemia; patient does not appear to be on phos binder at home -Received HD on Wednesday and Wednesday -Patient has a Wednesday, Wednesday, Wednesday chair outpatient for HD; but will be getting HD Wednesday, , Wednesday inpatient Severe MR -S/p MV repair (2019) followed by mechanical valve replacement (2019) -Well seated per RIA 05/2024 -Mitral valve thrombus note on RIA 05/2024 -Supposed to be anticoagulated on warfarin. Referral has been sent to [facility] whohave been trying to contact patient for multiple months with no response. Therefore, patient has not had any recent INRs drawn outpatient -Patient does report current warfarin use; stating she is on 4mg daily Plan: -INR 1.3 on admission; goal 2.5-3.5 d/t Mechanical valve -Started warfarin at 4mg -Full dose heparin gtt started CAD -S/P RUBEN to LAD (2020) -ASA and statin resumed PAF -S/p BiV ICD with AV yared ablation with MD Ramirez 05/2024 -H/O amio thyrotoxicosis -Follow with MD Ramirez Plan: -Toprol started at 25mg BID (home dose 100mg BID) HTN HLD -Statin resumed -Bidil not on formulary- started hydralazine 37.5mg TID and isosorbide 20mg TID Hyperthyroidism -In the setting of amiodarone thyrotoxicosis -Continue home methimazole Hypocalcemia Hypokalemia Hypomagnesemia -Replace as needed -Amiloride for hypokalemia Dispo plan: pending FEN: reg cardiac 2g NA, 1800 FR low phos Ppx: warfarin, PPI The above plan of care was discussed in detail with the attending, MD Brambila. Ro Toro APRN, DNP * Care Plan - Crystal Durán - 02/25/2025 10:35 PM EDT Problem: Hemodialysis Goal: Safe, Effective Therapy Delivery Outcome: Ongoing, Progressing Goal: Effective Tissue Perfusion Outcome: Ongoing, Progressing Goal: Absence of Infection Signs and Symptoms Outcome: Ongoing, Progressing Problem: Adult Inpatient Plan of Care Goal: Plan of Care Review Outcome: Ongoing, Progressing Flowsheets (Taken 02/25/20252231) Progress: improving Plan of Care Reviewed With: patient Goal: Patient-Specific Goal (Individualized) Outcome: Ongoing, Progressing Flowsheets (Taken 02/25/20251999) Patient/Family-Specific Goals (Include Timeframe): Pt will remain free from falls or injury during this shift Individualized Care Needs: safety Anxieties, Fears or Concerns: none stated Goal: Absence of Hospital-Acquired Illness or Injury Outcome: Ongoing, Progressing Intervention: Identify and Manage Fall Risk Flowsheets (Taken 02/25/20251999) Safety Promotion/Fall Prevention: activity supervised assistive device/personal items within reach clutter-free environment maintained lighting adjusted nonskid shoes/slippers when out of bed room organization consistent safety round/check completed Intervention: Prevent Skin Injury Flowsheets Taken 02/25/20252157 by Porsha Townsend Body Position: weight shifting Taken 02/23/20252238 by Crystal Durán Skin Protection: incontinence pads utilized pulse oximeter probe site changed Intervention: Prevent and Manage VTE (Venous Thromboembolism) Risk Flowsheets (Taken 02/25/20251999) VTE Prevention/Management: SCDs (sequential compression devices) off Intervention: Prevent Infection Flowsheets (Taken 02/25/20252231) Infection Prevention: cohorting utilized environmental surveillance performed hand hygiene promoted rest/sleep promoted single patient room provided Goal: Optimal Comfort and Wellbeing Outcome: Ongoing, Progressing Intervention: Monitor Pain and Promote Comfort Flowsheets (Taken 02/23/20252238) Pain Management Interventions: care clustered rest quiet environment facilitated medication offered but refused emotional support Intervention: Provide Person-Centered Care Flowsheets (Taken 02/23/20252238) Trust Relationship/Rapport: care explained choices provided emotional support provided questions encouraged thoughts/feelings acknowledged empathic listening provided reassurance provided questions answered Problem: Fall Injury Risk Goal: Absence of Fall and Fall-Related Injury Outcome: Ongoing, Progressing Intervention: Identify and Manage Contributors Flowsheets (Taken 02/25/20252231) Medication Review/Management: medications reviewed Self-Care Promotion: independence encouraged BADL personal objects within reach Intervention: Promote Injury-Free Environment Flowsheets (Taken 02/25/20251999) Safety Promotion/Fall Prevention: activity supervised assistive device/personal items within reach clutter-free environment maintained lighting adjusted nonskid shoes/slippers when out of bed room organization consistent safety round/check completed Problem: Heart Failure Goal: Optimal Coping Outcome: Ongoing, Progressing Intervention: Support Psychosocial Response Flowsheets (Taken 02/25/20252231) Life Transition/Adjustment: decision-making facilitated Supportive Measures: active listening utilized decision-making supported positive reinforcement provided self-care encouraged verbalization of feelings encouraged Family/Support System Care: self-care encouraged support provided Goal: Optimal Cardiac Output and Blood Flow Outcome: Ongoing, Progressing Intervention: Optimize Cardiac Output Flowsheets (Taken 02/25/20252231) Stabilization Measures: legs elevated Environmental Support: calm environment promoted caregiver consistency promoted comfort object encouraged distractions minimized environmental consistency promoted rest periods encouraged personal routine supported Goal: Stable Heart Rate and Rhythm Outcome: Ongoing, Progressing Intervention: Monitor and Manage Cardiac Rhythm Effect Flowsheets (Taken 02/25/20252231) Dysrhythmia Management: (monitored) -- Goal: Fluid and Electrolyte Balance Outcome: Ongoing, Progressing Intervention: Monitor and Manage Fluid and Electrolyte Balance Flowsheets (Taken 02/25/20252231) Fluid/Electrolyte Management: fluids restricted Goal: Optimal Functional Ability Outcome: Ongoing, Progressing Intervention: Optimize Functional Ability Flowsheets Taken 02/25/20252231 Self-Care Promotion: independence encouraged BADL personal objects within reach Taken 02/25/20251999 Activity Management: activity adjusted per tolerance Goal: Improved Oral Intake Outcome: Ongoing, Progressing Intervention: Promote and Optimize Nutrition Intake Flowsheets (Taken 02/25/20252231) Oral Nutrition Promotion: rest periods promoted social interaction promoted Nutrition Interventions: food preferences provided Goal: Effective Oxygenation and Ventilation Outcome: Ongoing, Progressing Intervention: Promote Airway Secretion Clearance Flowsheets Taken 02/25/20252231 Breathing Techniques/Airway Clearance: deep/controlled cough encouraged Taken 02/25/20251999 Activity Management: activity adjusted per tolerance Cough And Deep Breathing: done independently per patient Intervention: Optimize Oxygenation and Ventilation Flowsheets (Taken 02/25/20252231) Airway/Ventilation Management: oxygen therapy provided position adjusted Head of Bed (HOB) Positioning: HOB elevated Goal: Effective Breathing Pattern During Sleep Outcome: Ongoing, Progressing Intervention: Monitor and Manage Obstructive Sleep Apnea Flowsheets (Taken 02/25/20252231) Medication Review/Management: medications reviewed * Progress Notes - Kinga Bolton, PharmD - 02/25/2025 3:38 PM EDT Antithrombosis Monitoring: Warfarin Awais Smith is a 54 y.o. female who has been continued on warfarin. Warfarin Indication & Goal Anticoagulation Indication/Goal Warfarin Indication: Mechanical mitral valve;Atrial fibrillation Reason DOAC not prescribed: Other ( Comment) Other Reason: mechanical valve Duration of Anticoagulation: Indefinite Target INR: 2.5-3.5 Warfarin Prior to Admission: Yes Prior to Admission Daily Warfarin Regimen: 4 mg daily per patient but last filled 3 mg daily #30 Prior to Admission Weekly Warfarin Dose: 28 mg (reported) Assessment Warfarin Drug Interactions Inhibitors of Warfarin Metabolism: HMG Co-A Inhibitors (Statins) Inducers of Warfarin Metabolism: Other (comment) Other Inducer: methimazole Increased Bleeding Risk: Aspirin;Unfractionated Heparin Interacting medications started/stopped in past 72 hours?: Yes Medication started/stopped in past 72 hours: Heparin drip full dose protocol started 02/23 Any warfarin reversal given?: No Anticoagulation Assessment Warfarin Sensitivity Risk Factors: Chronic liver, renal, or thyroid disease;Drug interaction: Inhibitors of warfarin metabolism Warfarin Sensitivity Score: High (1 or more Warfarin Sensitivity Risk Factors) Nutritional Intake: Normal PO Intake Today's INR : Subtherapeutic;Trending up Warfarin INR & Dose Trends Date INR Warfarin Dose (mg) Comments 02/23 1.3 4 mg Full dose heparin bridge protocol 02/24 1.5 4 mg Full dose heparin bridge protocol 02/25 1.6 5 mg Full dose heparin bridge protocol Plan Anticoagulation Plan Warfarin Pharmacist Managed?: Yes Warfarin Plan: Increase dose Specify Warfarin Dose: 5 mg [facility] Warfarin Dosing Protocol Followed?: Yes Bridging Agent in Conjunction With Warfarin? : Yes Ordered Agents: Unfractionated heparin Bridging Agent Dose: Full dose heparin protocol Goal PTT/anti-Xa: anti-Xa 0.3-0.7 INR Monitoring Frequency: Monitor INR daily Patient Education : Incomplete Transitions of Care Outpatient provider managing warfarin after [facility] discharge: [facility], will need new referral Recommended date for outpatient INR assessment: TBD Will continue to follow patient's clinical progress daily. Kinga Bolton, PharmD, BCPS, BCCP Cardiology Clinical Pharmacist Contact: [employer] * Progress Notes - Ro Toro, NET APPLICATION ARCHITECT, LOLY - 02/25/2025 12:02 PM EDT Subjective: Ms. Smith is sitting up in bed. Family at bedside. ORA. Denies any issues overnight. Patient reports that she can carry a conversation without struggling to breath, she reports significant improvement in shortness of breath with exertion. HD yesterday with 2.3L FR, NN 1.7L; Scr 3.13. Will continued bumex 2mg IV BID on non dialysis days. INR 1.6; continue warfarin and heparin gtt. Review of symptoms Constitutional: Negative for decreased appetite and + weight gain. Cardiovascular: Negative for chest pain, +dyspnea on exertion, +leg swelling, near-syncope, +orthopnea, palpitations, +paroxysmal nocturnal dyspnea and syncope. Respiratory: Negative for cough, +shortness of breath and sleep disturbances due to breathing. Gastrointestinal: Negative for bloating. 02/24/2025 7:47 PM 02/24/2025 11:17 PM 02/25/2025 12:00 AM 02/25/2025 4:15 AM 02/25/2025 5:55 AM 02/25/2025 7:21 AM 02/25/2025 11:14 AM Vitals Systolic 120 108 113 119 109 118 Diastolic 71 63 71 82 67 75 Heart Rate 80 80 80 80 80 80 Temp 36.7 C 36.6 C 36.3 C 36.4 C 36.6 C Resp 18 18 16 12 Weight (kg) 78.3 kg BMI 27.88 kg/m2 BSA (m2) 1.91 m2 Physical Exam Constitutional: Appearance: Normal appearance. Resting in bed HENT: Head: Normocephalic and atraumatic. Neck: + JVD (improved) Cardiovascular: Rate and Rhythm: Normal rate and paced rhythm. Heart sounds: Normal heart sounds. Edema: trace Pulmonary: Effort: Pulmonary effort is normal (improved from yesterday). ORA Breath sounds: Normal breath sounds. Abdominal: General: Abdomen is rounded. Palpations: Abdomen is firm. NT, no guarding or rigidity Skin: General: Skin is warm and dry. Right chest tunneled dialysis catheter Neurological: General: No focal deficit present. Mental Status: The patient is alert and oriented to person, place, and time. Psychiatric: Mood and Affect: Mood normal. Behavior: Behavior normal. Cardiac Testing -RIA- LVED 20-25%, RV dilated, RVSF moderately reduced, no thrombus seen, mechanical MV well seated, echogenic mass extending along the MV prosthetic ring, small mobile echogenic are consistent with thrombus, mild TR, trace HI, -TTE 02/01/25- no mass or thrombus seen, LVEF 22%, global hypokinesis of LV, RV dilated, RVSF reduced, LV size severely increased, trace AR, mechanical MV well seated, MR present, severe TR, mild HI, LVIDd 5.8 -TTE02/24/25- LV severely dilated, LVEF 23%, RV moderately dilated, RVSF reduced, RVSP moderately elevated, mild AR, mechanical MV well seated, MR severely cannot be assessed, Severe TR, mild HI, LVIDd 6.6 Imaging Echo, Adult Transthoracic Complete Result Date: 02/24/2025 Left Ventricle: The left ventricular systolic function is severely reduced. The LVEF as measured bybiplane volume is 23%. Right Ventricle: The right ventricle is moderately dilated. The right ventricular systolic function is reduced. There is regional wall motion abnormalities. There is right ventricular free wall akinesis. There is right ventricular apical akinesis. The estimated right ventricular systolic pressure is 51 mmHg. Right ventricular systolic pressure is moderately elevated (50-70mmHg). Mitral Valve: There is a bileaflet mechanical mitral valve (35/25 mm ON-X) that is well seated. The mean mitral valve pressure gradient is estimated to be 4 mmHg at a heart rate of 78 bpm. The gradient is normal for this prosthetic valve. Tricuspid Valve: There is severe tricuspid regurgitation. There is systolic flow reversal of the hepatic veins consistent with significant tricuspid valve regurgitation. Pericardium: No pericardial effusion. Compared to the most recently available prior study, and allowing for differences in image quality and technique, there is no significant interval c hange noted. Echo, Adult Transthoracic Complete Result Date: 02/01/2025 Left Ventricle: The left ventricle is dilated. There is eccentric hypertrophy. No left ventricular mass or thrombus is seen. The LVEF as measured by biplane volume is 22%. The calculated cardiac index based on LVOT Doppler technique is normal. Unable to assess diastolic function due to mitral valvesurgery. There is global hypokinesis of the left ventricle. See diagram below for wall motion findings. Right Ventricle: The right ventricle is dilated. A catheter/lead is present in the right ventricle. The right ventricular systolic function is reduced. Mitral Valve: There is a bileaflet mechanical mitral valve (35/25 mm ON-X) that is well seated. Mitral regurgitation is present; however, its se verity cannot be assessed due to shielding from the prosthesis. There is no mitral stenosis. The mean mitral valve pressure gradient is estimated to be 5 mmHg at a heart rate of 80 bpm. Tricuspid Valve: There is severe tricuspid regurgitation. IVC/SVC: Based on the IVC size and respiratory variation, the estimated right atrial pressure is 15mmHg. Compared to the most recently available prior study, and allowing for differences in image quality and technique, there is no significant interval change noted. Echo, Adult Transthoracic (TTE) Limited Result Date: 05/25/2024 Compared to the most recently available prior study, and allowing for differences in image quality and technique, there is no significant interval change noted. Echo, Adult Transthoracic Complete Result Date: 04/24/2024 Left Ventricle: Based on the linear dimension and/or 2D volumes, the left ventricle is severely dilated in size. There is severe eccentric hypertrophy. The left ventricular systolic function is severely reduced. The LVEF as measured by biplane volume is 21%. Unable to assess diastolic function due to mitral valve surgery. There is global hypokinesis of the left ventricle. Right Ventricle: The right ventricle is mildly dilated. The right ventricular systolic function is mildly reduced. Right ventricular systolic pressure is moderately elevated (50-70mmHg). The estimated right ventricular systolic pressure is 56 mmHg. Mitral Valve: There is a bileaflet mechanical mitral valve (35/25 mm On-X) that is well seated. Mitral regurgitation is present; however, its severity cannot be assessed due to shielding from the prosthesis. The mean mitral valve pressure gradient is estimated to be 14 mmHg at a heart rate of 84 bpm. The gradient is abnormally high for this prosthetic valve due to combination of regurgitation and stenosis. Tricuspid Valve: There is moderate tricuspid regurgitation. Compared to the most recently available prior study, and allowing for differences in image quality and technique, LV systolic function is worse. The mechanical mitral mean gradient is now significantly elevated. Labs Lab Results Component Value Date HGB 10.0 (L) 02/25/2025 HCT 32.7 (L) 02/25/2025 PLT 134 (L) 02/25/2025 CHOL ORDERED ERRONEOUSLY BY LAB. [facility]. 09/03/2017 TRIG ORDERED ERRONEOUSLY BY LAB. [facility]. 09/03/2017 HDL ORDERED ERRONEOUSLY BY LAB. [facility]. 09/03/2017 LDLCALC ORDERED ERRONEOUSLY BY LAB. [facility]. 09/03/2017 ALT 12 02/23/2025 AST 18 02/23/2025 NA 135 (L) 02/25/2025 K 3.8 02/25/2025 CREATININE 3.13 (H) 02/25/2025 BUN 32 (H) 02/25/2025 CO2 21 (L) 02/25/2025 TSH 18.70 (H) 11/16/2024 INR 1.6 (H) 02/25/2025 HGBA1C 6.2 (H) 03/23/2023 Assessment and Plan Acute on Chronic HFrEF s/t NICM NYHA IV Stage C -Significantly fluid volume overloaded -Home GDMT: toprol 100mg BID -Bumex 2mg BID daily though patient reports she is only taking it on non HD days -No IVA/ARB/ARNI/SGLT2i s/t ESRD -Bidil 20mg-37.5 2 pills TID -RIA- LVED 20-25%, RV dilated, RVSF moderately reduced, no thrombus seen, mechanical MV well seated, echogenic mass extending along the MV prosthetic ring, small mobile echogenic are consistent with thrombus, mild TR, trace HI, -TTE 02/01/25- no mass or thrombus seen, LVEF 22%, global hypokinesis of LV, RV dilated, RVSF reduced, LV size severely increased, trace AR, mechanical MV well seated, MR present, severe TR, mild HI, LVIDd 5.8 -Patient is not a candidate for renal txp as her heart function is too poor. Nor is she a dual organ heart/kidney txp candidate as she has has 2 prior sternotomies as well as compliance issues -NT probnp 41K on admission -Patient received 1mg IV bumex in ED Plan: -Toprol started at 25mg BID (home dose 100mg BID) -Bidil not on formulary- started isordil 20mg TID, and hydralazine 37.5mg TID -TTE- LV severely dilated, LVEF 23%, RV moderately dilated, RVSF reduced, RVSP moderately elevated,mild AR, mechanical MV well seated, MR severely cannot be assessed, Severe TR, mild HI, LVIDd 6.6 -2mg IV BID bumex on nondialysis days (not currently scheduled as unsure of when she will have dialysis next) ESRD -Was on PD but developed abscess -Transitioned to HD -Per patient she has not missed any iHD appointments -Was getting 3L removed at [facility] HD however patient reports that she was nolonger tolerating that (she was having ramping) so fluid removal was decreased to 2L -She started having increase fluid retention right after fluid removal was reduced -Bumex 2mg 2mg BID non HD days -No IVA/ARB/ARNI/SGLT2i s/t ESRD Plan: -Nephrology consulted -[facility] dialysis -Avoid nephrotoxic medications -Renally dose medications -Resumed sodium bicarb and calcitrol -Low phos diet for hyperphosphatemia; patient does not appear to be on phos binder at home -Received HD on Wednesday and wednesday Severe MR -S/p MV repair (2019) followed by mechanical valve replacement (2019) -Well seated per RIA 05/2024 -Mitral valve thrombus note on RIA 05/2024 -Supposed to be anticoagulated on warfarin. Referral has been sent to [facility] whohave been trying to contact patient for multiple months with no response. 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 Ro Toro APRN, DNP * Care Plan - Shanika De Leon RN - 02/25/2025 9:57 AM EDT Problem: Hemodialysis Goal: Safe, Effective Therapy Delivery Outcome: Ongoing, Progressing Goal: Effective Tissue Perfusion Outcome: Ongoing, Progressing Goal: Absence of Infection Signs and Symptoms Outcome: Ongoing, Progressing Problem: Adult Inpatient Plan of Care Goal: Plan of Care Review Outcome: Ongoing, Progressing Flowsheets (Taken 02/24/2025 0866 by René Zapata RN) Progress: improving Outcome Evaluation: pt to have adequate ventilation and limit fluid intake to minimize overload Plan of Care Reviewed With: patient caregiver Goal: Patient-Specific Goal (Individualized) Outcome: Ongoing, Progressing Flowsheets (Taken 02/24/20251999 by René Zapata, RN) Patient/Family-Specific Goals (Include Timeframe): to be comfortable in bed within 12 hours Individualized Care Needs: restrict sodim , monitor resp cardiac functions Anxieties, Fears or Concerns: none Goal: Absence of Hospital-Acquired Illness or Injury Outcome: Ongoing, Progressing Intervention: Identify and Manage Fall Risk Flowsheets (Taken 02/25/2025 08) Safety Promotion/Fall Prevention: activity supervised lighting adjusted nonskid shoes/slippers when out of bed safety round/check completed assistive device/personal items within reach clutter-free environment maintained fall prevention program maintained mobility aid in reach room organization consistent Intervention: Prevent Skin Injury Flowsheets Taken 02/25/2025799 by Shanika De Leon RN Body Position: weight shifting Taken 02/23/20252238 by Crystal Durán Skin Protection: incontinence pads utilized pulse oximeter probe site changed Intervention: Prevent and Manage VTE (Venous Thromboembolism) Risk Flowsheets (Taken 02/25/2025 08) VTE Prevention/Management: SCDs (sequential compression devices) off Intervention: Prevent Infection Flowsheets (Taken 02/24/20252257 by René Zapata, CROW) Infection Prevention: cohorting utilized environmental surveillance performed hand hygiene promoted Goal: Optimal Comfort and Wellbeing Outcome: Ongoing, Progressing Intervention: Monitor Pain and Promote Comfort Flowsheets (Taken 02/23/20252238 by Crystal Durán) Pain Management Interventions: care clustered rest quiet environment facilitated medication offered but refused emotional support Intervention: Provide Person-Centered Care Flowsheets (Taken 02/23/20252238 by Crystal Durán) Trust Relationship/Rapport: care explained choices provided emotional support provided questions encouraged thoughts/feelings acknowledged empathic listening provided reassurance provided questions answered Problem: Fall Injury Risk Goal: Absence of Fall and Fall-Related Injury Outcome: Ongoing, Progressing Intervention: Identify and Manage Contributors Flowsheets (Taken 02/24/20252257 by René Zapata, CROW) Medication Review/Management: medications reviewed Self-Care Promotion: independence encouraged BADL personal objects within reach BADL personal routines maintained Intervention: Promote Injury-Free Environment Flowsheets (Taken 02/25/2025 08) Safety Promotion/Fall Prevention: activity supervised lighting adjusted nonskid shoes/slippers when out of bed safety round/check completed assistive device/personal items within reach clutter-free environment maintained fall prevention program maintained mobility aid in reach room organization consistent Problem: Heart Failure Goal: Optimal Coping Outcome: Ongoing, Progressing Intervention: Support Psychosocial Response Flowsheets (Taken 02/24/20252257 by René Zapata RN) Supportive Measures: active listening utilized self-responsibility promoted Family/Support System Care: involvement promoted Goal: Optimal Cardiac Output and Blood Flow Outcome: Ongoing, Progressing Goal: Stable Heart Rate and Rhythm Outcome: Ongoing, Progressing Goal: Fluid and Electrolyte Balance Outcome: Ongoing, Progressing Intervention: Monitor and Manage Fluid and Electrolyte Balance Flowsheets (Taken 02/24/20252257 by René Zapata RN) Fluid/Electrolyte Management: oral rehydration therapy initiated Goal: Optimal Functional Ability Outcome: Ongoing, Progressing Intervention: Optimize Functional Ability Flowsheets Taken 02/25/2025799 by Loida Fraire Activity Management: activity adjusted per tolerance Taken 02/24/20252257 by René Zapata RN Self-Care Promotion: independence encouraged [facility] personal objects within [facility] personal routines maintained Goal: Improved Oral Intake Outcome: Ongoing, Progressing Goal: Effective Oxygenation and Ventilation Outcome: Ongoing, Progressing Intervention: Promote Airway Secretion Clearance Flowsheets Taken 02/25/2025 08 by Loida Fraire Activity Management: activity adjusted per tolerance Taken 02/25/2025799 by Shanika De Leon RN Cough And Deep Breathing: done independently per patient Intervention: Optimize Oxygenation and Ventilation Flowsheets (Taken 02/25/2025799 by Loida Fraire) Head of Bed (HOB) Positioning: HOB elevated Goal: Effective Breathing Pattern During Sleep Outcome: Ongoing, Progressing * Care Plan - René Zapata RN - 02/24/2025 11:03 PM EDT Problem: Adult Inpatient Plan of Care Goal: Plan of Care Review Flowsheets (Taken 02/24/20252248) Progress: improving Outcome Evaluation: pt to have adequate ventilation and limit fluid intake to minimize overload Plan of Care Reviewed With: patient caregiver Goal: Patient-Specific Goal (Individualized) Outcome: Ongoing, Progressing Flowsheets (Taken 02/24/20251999) Patient/Family-Specific Goals (Include Timeframe): to be comfortable in bed within 12 hours Individualized Care Needs: restrict sodim , monitor resp cardiac functions Anxieties, Fears or Concerns: none Goal: Absence of Hospital-Acquired Illness or Injury Outcome: Ongoing, Progressing Intervention: Identify and Manage Fall Risk Flowsheets (Taken 02/24/20252257) Safety Promotion/Fall Prevention: activity supervised clutter-free environment maintained Intervention: Prevent Skin Injury Flowsheets (Taken 02/24/20252257) Body Position: weight shifting Note: Self turning Intervention: Prevent and Manage VTE (Venous Thromboembolism) Risk Flowsheets (Taken 02/24/20251999) VTE Prevention/Management: SCDs (sequential compression devices) on Intervention: Prevent Infection Flowsheets (Taken 02/24/20252257) Infection Prevention: cohorting utilized environmental surveillance performed hand hygiene promoted Goal: Optimal Comfort and Wellbeing Outcome: Ongoing, Progressing Problem: Adult Inpatient Plan of Care Goal: Patient-Specific Goal (Individualized) Outcome: Ongoing, Progressing Flowsheets (Taken 02/24/20251999) Patient/Family-Specific Goals (Include Timeframe): to be comfortable in bed within 12 hours Individualized Care Needs: restrict sodim , monitor resp cardiac functions Anxieties, Fears or Concerns: none Problem: Adult Inpatient Plan of Care Goal: Absence of Hospital-Acquired Illness or Injury Outcome: Ongoing, Progressing Intervention: Identify and Manage Fall Risk Flowsheets (Taken 02/24/20252257) Safety Promotion/Fall Prevention: activity supervised clutter-free environment maintained Intervention: Prevent Skin Injury Flowsheets (Taken 02/24/20252257) Body Position: weight shifting Note: Self turning Intervention: Prevent and Manage VTE (Venous Thromboembolism) Risk Flowsheets (Taken 02/24/20251999) VTE Prevention/Management: SCDs (sequential compression devices) on Intervention: Prevent Infection Flowsheets (Taken 02/24/20252257) Infection Prevention: cohorting utilized environmental surveillance performed hand hygiene promoted Problem: Adult Inpatient Plan of Care Goal: Absence of Hospital-Acquired Illness or Injury Intervention: Prevent Skin Injury Flowsheets (Taken 02/24/20252257) Body Position: weight shifting Note: Self turning Problem: Adult Inpatient Plan of Care Goal: Absence of Hospital-Acquired Illness or Injury Intervention: Identify and Manage Fall Risk Flowsheets (Taken 02/24/20252257) Safety Promotion/Fall Prevention: activity supervised clutter-free environment maintained Problem: Adult Inpatient Plan of Care Goal: Absence of Hospital-Acquired Illness or Injury Intervention: Prevent Skin Injury Flowsheets (Taken 02/24/20252257) Body Position: weight shifting Note: Self turning Problem: Adult Inpatient Plan of Care Goal: Absence of Hospital-Acquired Illness or Injury Intervention: Prevent Skin Injury Flowsheets (Taken 02/24/20252257) Body Position: weight shifting Note: Self turning Problem: Adult Inpatient Plan of Care Goal: Absence of Hospital-Acquired Illness or Injury Intervention: Prevent and Manage VTE (Venous Thromboembolism) Risk Flowsheets (Taken 02/24/20251999) VTE Prevention/Management: SCDs (sequential compression devices) on Problem: Adult Inpatient Plan of Care Goal: Absence of Hospital-Acquired Illness or Injury Intervention: Prevent Infection Flowsheets (Taken 02/24/20252257) Infection Prevention: cohorting utilized environmental surveillance performed hand hygiene promoted Problem: Fall Injury Risk Goal: Absence of Fall and Fall-Related Injury Outcome: Ongoing, Progressing Intervention: Identify and Manage Contributors Flowsheets (Taken 02/24/20252257) Medication Review/Management: medications reviewed Self-Care Promotion: independence encouraged BADL personal objects within reach BADL personal routines maintained Problem: Heart Failure Goal: Optimal Coping Outcome: Ongoing, Progressing Intervention: Support Psychosocial Response Flowsheets (Taken 02/24/20252257) Supportive Measures: active listening utilized self-responsibility promoted Family/Support System Care: involvement promoted Goal: Optimal Cardiac Output and Blood Flow Outcome: Ongoing, Progressing Goal: Stable Heart Rate and Rhythm Outcome: Ongoing, Progressing Intervention: Monitor and Manage Cardiac Rhythm Effect Note: Monitor the cardiac activities, rhythm Goal: Fluid and Electrolyte Balance Outcome: Ongoing, Progressing Intervention: Monitor and Manage Fluid and Electrolyte Balance Flowsheets (Taken 02/24/20252257) Fluid/Electrolyte Management: oral rehydration therapy initiated Goal: Optimal Functional Ability Outcome: Ongoing, Progressing Intervention: Optimize Functional Ability Flowsheets (Taken 02/24/20252257) Self-Care Promotion: independence encouraged BADL personal objects within reach BADL personal routines maintained Goal: Improved Oral Intake Outcome: Ongoing, Progressing Goal: Effective Oxygenation and Ventilation Outcome: Ongoing, Progressing Intervention: Optimize Oxygenation and Ventilation Flowsheets (Taken 02/24/20252257) Head of Bed (HOB) Positioning: HOB at 30-45 degrees Goal: Effective Breathing Pattern During Sleep Outcome: Ongoing, Progressing Intervention: Monitor and Manage Obstructive Sleep Apnea Flowsheets (Taken 02/24/20252257) Medication Review/Management: medications reviewed Note: Administer oxygen 2l/ min Monitor spo2 Regular auscaltation Problem: Hemodialysis Goal: Safe, Effective Therapy Delivery Outcome: Ongoing, Progressing Goal: Effective Tissue Perfusion Outcome: Ongoing, Progressing Goal: Absence of Infection Signs and Symptoms Outcome: Ongoing, Progressing * Progress Notes - Tesha Carballo PharmD - 02/24/2025 3:34 PM EDT Antithrombosis Monitoring: Warfarin Awais Smith is a 54 y.o. female who has been continued on warfarin. Warfarin Indication & Goal Anticoagulation Indication/Goal Warfarin Indication: Mechanical mitral valve;Atrial fibrillation Reason DOAC not prescribed: Other ( Comment) Other Reason: mechanical valve Duration of Anticoagulation: Indefinite Target INR: 2.5-3.5 Warfarin Prior to Admission: Yes Prior to Admission Daily Warfarin Regimen: 4 mg daily per patient but last filled warfarin 3 mg daily #30 in 11/2024 Prior to Admission Weekly Warfarin Dose: 28 mg Assessment Warfarin Drug Interactions Inhibitors of Warfarin Metabolism: HMG Co-A Inhibitors (Statins) Inducers of Warfarin Metabolism: Other (comment) Other Inducer: Methimazole Increased Bleeding Risk: Aspirin;Unfractionated Heparin Interacting medications started/stopped in past 72 hours?: Yes Medication started/stopped in past 72 hours: Heparin drip full dose protocol started 02/23 Any warfarin reversal given?: No Anticoagulation Assessment Warfarin Sensitivity Risk Factors: Chronic liver, renal, or thyroid disease;Drug interaction: Inhibitors of warfarin metabolism Warfarin Sensitivity Score: High (1 or more Warfarin Sensitivity Risk Factors) Nutritional Intake: Not Documented Today's INR : Subtherapeutic Warfarin INR & Dose Trends Date INR Warfarin Dose (mg) Comments 02/23 1.3 4 mg Full dose heparin bridge protocol 02/24 1.5 4 mg Full dose heparin bridge protocol Plan Anticoagulation Plan Warfarin Pharmacist Managed?: Yes Warfarin Plan: Continue current dose Specify Warfarin Dose: 4 mg [facility] Warfarin Dosing Protocol Followed?: Yes Bridging Agent in Conjunction With Warfarin? : Yes Ordered Agents: Unfractionated heparin Bridging Agent Dose: Full dose heparin protocol Goal PTT/anti-Xa: anti-Xa 0.3-0.7 INR Monitoring Frequency: Monitor INR daily Patient Education : Incomplete Transitions of Care Outpatient provider managing warfarin after [facility] discharge: [facility], will need new referral Recommended date for outpatient INR assessment: TBD Will continue to follow patient's clinical progress daily. Tesha Carballo PharmD, [facility] Card[facility] Clinical Pharmacist Available via secure chat * Care Plan - Shanika De Leon RN - 02/24/2025 3:30 PM EDT Problem: Hemodialysis Goal: Safe, Effective Therapy Delivery Outcome: Ongoing, Progressing Goal: Effective Tissue Perfusion Outcome: Ongoing, Progressing Goal: Absence of Infection Signs and Symptoms Outcome: Ongoing, Progressing Problem: Adult Inpatient Plan of Care Goal: Plan of Care Review Outcome: Ongoing, Progressing Flowsheets (Taken 02/23/20252238 by Crystal Durán) Progress: no change Plan of Care Reviewed With: patient Goal: Patient-Specific Goal (Individualized) Outcome: Ongoing, Progressing Flowsheets (Taken 02/23/20251999 by Crystal Durán) Patient/Family-Specific Goals (Include Timeframe): Pt will be free from falls or injury during thisshift Individualized Care Needs: safety Anxieties, Fears or Concerns: none expressed Goal: Absence of Hospital-Acquired Illness or Injury Outcome: Ongoing, Progressing Intervention: Identify and Manage Fall Risk Flowsheets (Taken 02/24/2025 1200) Safety Promotion/Fall Prevention: activity supervised assistive device/personal items within reach clutter-free environment maintained fall prevention program maintained lighting adjusted mobility aid in reach nonskid shoes/slippers when out of bed room organization consistent safety round/check completed Intervention: Prevent Skin Injury Flowsheets Taken 02/24/2025 1200 by Shanika De Leon RN Body Position: weight shifting Taken 02/23/20252238 by Crystal Durán Skin Protection: incontinence pads utilized pulse oximeter probe site changed Intervention: Prevent and Manage VTE (Venous Thromboembolism) Risk Flowsheets (Taken 02/24/2025 1200) VTE Prevention/Management: SCDs (sequential compression devices) on Intervention: Prevent Infection Flowsheets (Taken 02/23/20252238 by Crystal Durán) Infection Prevention: environmental surveillance performed hand hygiene promoted rest/sleep promoted single patient room provided Goal: Optimal Comfort and Wellbeing Outcome: Ongoing, Progressing Intervention: Monitor Pain and Promote Comfort Flowsheets (Taken 02/23/20252238 by Crystal Durán) Pain Management Interventions: care clustered rest quiet environment facilitated medication offered but refused emotional support Intervention: Provide Person-Centered Care Flowsheets (Taken 02/23/20252238 by Crystal Durán) Trust Relationship/Rapport: care explained choices provided emotional support provided questions encouraged thoughts/feelings acknowledged empathic listening provided reassurance provided questions answered * Progress Notes - Ro Toro APRN, LOLY - 02/24/2025 1:31 PM EDT Images from the original note were not included. Subjective: Ms. Smith is sitting up in bed. Family at bedside. 2LNC. Still reports shortness of breath though states its improved since admission yesterday. She had HD session last night, 2.3L removed; she made 400ml urine. Patient given 2mg IV bumex this AM, will hold PM dose in setting of another HD session today. Scr 2.27 this morning. Hydralazine 37.5mg and Isordil 20mg TID order for HTN. ECHO pendingto evaluate EF and evaluate for clot in setting of subtherapeutic INR (1.5 today) with mechanical valve. Heparin gtt and warfarin continued. Review of symptoms Constitutional: Negative for decreased appetite and + weight gain. Cardiovascular: Negative for chest pain, +dyspnea on exertion, +leg swelling, near-syncope, +orthopnea, palpitations, +paroxysmal nocturnal dyspnea and syncope. Respiratory: Negative for cough, +shortness of breath and sleep disturbances due to breathing. Gastrointestinal: Negative for bloating. 02/23/2025 10:29 PM 02/23/2025 11:49 PM 02/24/2025 12:00 AM 02/24/2025 4:00 AM 02/24/2025 5:05 AM 02/24/2025 8:23 AM 02/24/2025 12:04 PM Vitals Systolic 150 148 152 137 Diastolic 102 103 103 84 Heart Rate 80 81 81 81 80 Temp 36.4 C 36.7 C 36.7 C 36.3 C Resp 19 22 16 18 20 Height (cm) 167.6 cm Weight (kg) 79.3 kg BMI 27.59 kg/m2 28.23 kg/m2 BSA (m2) 1.9 m2 1.92 m2 Physical Exam Constitutional: Appearance: Normal appearance. Resting in bed HENT: Head: Normocephalic and atraumatic. Neck: + JVD Cardiovascular: Rate and Rhythm: Normal rate and paced rhythm. Heart sounds: Normal heart sounds. Edema: trace Pulmonary: Effort: Pulmonary effort is labored (improved from yesterday). 2LNC Breath sounds: Normal breath sounds. Abdominal: General: Abdomen is rounded. Palpations: Abdomen is firm. NT, no guarding or rigidity Skin: General: Skin is warm and dry. Right chest tunneled dialysis catheter Neurological: General: No focal deficit present. Mental Status: The patient is alert and oriented to person, place, and time. Psychiatric: Mood and Affect: Mood normal. Behavior: Behavior normal. Cardiac Testing -RIA- LVED 20-25%, RV dilated, RVSF moderately reduced, no thrombus seen, mechanical MV well seated, echogenic mass extending along the MV prosthetic ring, small mobile echogenic are consistent with thrombus, mild TR, trace HI, -TTE 02/01/25- no mass or thrombus seen, LVEF 22%, global hypokinesis of LV, RV dilated, RVSF reduced, LV size severely increased, trace AR, mechanical MV well seated, MR present, severe TR, mild HI, LVIDd 5.8 -TTE02/24/25- LV severely dilated, LVEF 23%, RV moderately dilated, RVSF reduced, RVSP moderately elevated, mild AR, mechanical MV well seated, MR severely cannot be assessed, Severe TR, mild HI, LVIDd 6.6 Imaging Echo, Adult Transthoracic Complete Result Date: 02/24/2025 Left Ventricle: The left ventricular systolic function is severely reduced. The LVEF as measured bybiplane volume is 23%. Right Ventricle: The right ventricle is moderately dilated. The right ventricular systolic function is reduced. There is regional wall motion abnormalities. There is right ventricular free wall akinesis. There is right ventricular apical akinesis. The estimated right ventricular systolic pressure is 51 mmHg. Right ventricular systolic pressure is moderately elevated (50-70mmHg). Mitral Valve: There is a bileaflet mechanical mitral valve (35/25 mm ON-X) that is well seated. The mean mitral valve pressure gradient is estimated to be 4 mmHg at a heart rate of 78 bpm. The gradient is normal for this prosthetic valve. Tricuspid Valve: There is severe tricuspid regurgitation. There is systolic flow reversal of the hepatic veins consistent with significant tricuspid valve regurgitation. Pericardium: No pericardial effusion. Compared to the most recently available prior study, and allowing for differences in image quality and technique, there is no significant interval c hange noted. Echo, Adult Transthoracic Complete Result Date: 02/01/2025 Left Ventricle: The left ventricle is dilated. There is eccentric hypertrophy. No left ventricular mass or thrombus is seen. The LVEF as measured by biplane volume is 22%. The calculated cardiac index based on LVOT Doppler technique is normal. Unable to assess diastolic function due to mitral valvesurgery. There is global hypokinesis of the left ventricle. See diagram below for wall motion findings. Right Ventricle: The right ventricle is dilated. A catheter/lead is present in the right ventricle. The right ventricular systolic function is reduced. Mitral Valve: There is a bileaflet mechanical mitral valve (35/25 mm ON-X) that is well seated. Mitral regurgitation is present; however, its se verity cannot be assessed due to shielding from the prosthesis. There is no mitral stenosis. The mean mitral valve pressure gradient is estimated to be 5 mmHg at a heart rate of 80 bpm. Tricuspid Valve: There is severe tricuspid regurgitation. IVC/SVC: Based on the IVC size and respiratory variation, the estimated right atrial pressure is 15mmHg. Compared to the most recently available prior study, and allowing for differences in image quality and technique, there is no significant interval change noted. Echo, Adult Transthoracic (TTE) Limited Result Date: 05/25/2024 Compared to the most recently available prior study, and allowing for differences in image quality and technique, there is no significant interval change noted. Echo, Adult Transthoracic Complete Result Date: 04/24/2024 Left Ventricle: Based on the linear dimension and/or 2D volumes, the left ventricle is severely dilated in size. There is severe eccentric hypertrophy. The left ventricular systolic function is severely reduced. The LVEF as measured by biplane volume is 21%. Unable to assess diastolic function due to mitral valve surgery. There is global hypokinesis of the left ventricle. Right Ventricle: The right ventricle is mildly dilated. The right ventricular systolic function is mildly reduced. Right ventricular systolic pressure is moderately elevated (50-70mmHg). The estimated right ventricular systolic pressure is 56 mmHg. Mitral Valve: There is a bileaflet mechanical mitral valve (35/25 mm On-X) that is well seated. Mitral regurgitation is present; however, its severity cannot be assessed due to shielding from the prosthesis. The mean mitral valve pressure gradient is estimated to be 14 mmHg at a heart rate of 84 bpm. The gradient is abnormally high for this prosthetic valve due to combination of regurgitation and stenosis. Tricuspid Valve: There is moderate tricuspid regurgitation. Compared to the most recently available prior study, and allowing for differences in image quality and technique, LV systolic function is worse. The mechanical mitral mean gradient is now significantly elevated. Labs Lab Results Component Value Date HGB 11.2 02/24/2025 HCT 35.6 02/24/2025 PLT 131 (L) 02/24/2025 CHOL ORDERED ERRONEOUSLY BY [facility]. [facility]. 09/03/2017 TRIG ORDERED ERRONEOUSLY BY [facility]. [facility]. 09/03/2017 HDL ORDERED ERRONEOUSLY BY [facility]. [facility]. 09/03/2017 LDLCALC ORDERED ERRONEOUSLY BY [facility]. [facility]. 09/03/2017 ALT 12 02/23/2025 AST 18 02/23/2025 NA 131 (L) 02/24/2025 K 3.3 (L) 02/24/2025 CREATININE 2.27 (H) 02/24/2025 BUN 21 02/24/2025 CO2 22 02/24/2025 TSH 18.70 (H) 11/16/2024 INR 1.5 (H) 02/24/2025 HGBA1C 6.2 (H) 03/23/2023 Assessment and Plan Acute on Chronic HFrEF s/t NICM NYHA IV Stage C -Significantly fluid volume overloaded -Home GDMT: toprol 100mg BID -Bumex 2mg BID daily though patient reports she is only taking it on non HD days -No IVA/ARB/ARNI/SGLT2i s/t ESRD -Bidil 20mg-37.5 2 pills TID -RIA- LVED 20-25%, RV dilated, RVSF moderately reduced, no thrombus seen, mechanical MV well seated, echogenic mass extending along the MV prosthetic ring, small mobile echogenic are consistent with thrombus, mild TR, trace HI, -TTE 02/01/25- no mass or thrombus seen, LVEF 22%, global hypokinesis of LV, RV dilated, RVSF reduced, LV size severely increased, trace AR, mechanical MV well seated, MR present, severe TR, mild HI, LVIDd 5.8 -Patient is not a candidate for renal txp as her heart function is too poor. Nor is she a dual organ heart/kidney txp candidate as she has has 2 prior sternotomies as well as compliance issues -NT probnp 41K on admission -Patient received 1mg IV bumex in ED Plan: -Toprol started at 25mg BID (home dose 100mg BID) -Bidil not on formulary- started isordil 20mg TID, and hydralazine 37.5mg TID -TTE- LV severely dilated, LVEF 23%, RV moderately dilated, RVSF reduced, RVSP moderately elevated,mild AR, mechanical MV well seated, MR severely cannot be assessed, Severe TR, mild HI, LVIDd 6.6 ESRD -Was on PD but developed abscess -Transitioned to HD -Per patient she has not missed any iHD appointments -Was getting 3L removed at [facility] HD however patient reports that she was nolonger tolerating that (she was having ramping) so fluid removal was decreased to 2L -She started having increase fluid retention right after fluid removal was reduced -Bumex 2mg 2mg BID non HD days -No IVA/ARB/ARNI/SGLT2i s/t ESRD Plan: -Nephrology consulted -[facility] dialysis -Avoid nephrotoxic medications -Renally dose medications -Resumed sodium bicarb and calcitrol -Low phos diet for hyperphosphatemia; patient does not appear to be on phos binder at home -Received HD on Wednesday and will receive it again today Severe MR -S/p MV repair (2019) followed by mechanical valve replacement (2019) -Well seated per RIA 05/2024 -Mitral valve thrombus note on RIA 05/2024 -Supposed to be anticoagulated on warfarin. Referral has been sent to [facility] whohave been trying to contact patient for multiple months with no response. 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 Ro Toro APRN, DNP * Progress Notes - Duane Li MD - 02/24/2025 12:19 PM EDT Nephrology Progress Note Patient: Awais Smith Admit Date: 02/23/2025 Reason for Consult: ESRD on dialysis Subjective Patient seen and examined. Reviewed interval events, flowsheets, labs and notes. Family at bedside today. Patient complaining of Shortness of breath/smothering. Objective Visit Vitals BP 137/84 Pulse 80 Temp 36.3 ??C (97.3 ??F) Resp 20 Ht 1.676 m (5' 5.98 ) Wt 79.3 kg (174 lb 13.2 oz) SpO2 99% BMI 28.23 kg/m?? OB Status Hysterectomy Smoking Status Former BSA 1.92 m?? Temp: [36.3 ??C (97.3 ??F)-36.7 ??C (98.1 ??F)] 36.3 ??C (97.3 ??F) Heart Rate: [80-83] 80 Resp: [16-30] 20 BP: (137-177)/(84-112) 137/84 Physical Exam: GEN: Alert and oriented, no acute distress HENT: Normocephalic, atraumatic, moist mucus membranes EYES: Clear conjunctivae bilaterally, EOMI NECK: Supple, trachea midline CV: Normal rate GI: Soft, nontender, non-distended, BS + EXT: + 1 + edema SKIN: Warm and dry, no rashes NEURO: A&OX3, moving all 4 extremities spontaneously, no gross focal deficit PSYCH: Normal mood and affect Access: [facility] Problem List Principal Problem: Acute decompensated heart failure (CMS/HCC) Medications: Current Medications: Current Scheduled Medications[1] Current Continuous Medications[2] Laboratory: LAB RESULTS Renal Panel: Lab Results Component Value Date NA 131 (L) 02/24/2025 K 3.3 (L) 02/24/2025 CL 95 (L) 02/24/2025 CO2 22 02/24/2025 BUN 21 02/24/2025 CREATININE 2.27 (H) 02/24/2025 EGFR 25.1 02/24/2025 CA ORDERED ERRONEOUSLY BY [facility]. [facility]. 09/03/2017 PHOS 4.4 02/24/2025 ALBUMIN 3.6 02/23/2025 MBD: Lab Results Component Value Date PTH 553 (H) 03/24/2023 CA ORDERED ERRONEOUSLY BY [facility]. [facility]. 09/03/2017 CALCIUM 8.8 (L) 02/24/2025 PHOS 4.4 02/24/2025 MG 1.8 (L) 02/24/2025 VITAMIN D 25 Lab Results Component Value Date VITD25 27.8 03/24/2023 PTHRP No results found for: PLASMA Urine studies: Lab Results Component Value Date CREATUR 45 11/18/2024 CBC: Lab Results Component Value Date WBC 7.30 02/24/2025 RBC 3.77 (L) 02/24/2025 HGB 11.2 02/24/2025 HCT 35.6 02/24/2025 PLT 131 (L) 02/24/2025 MCV 94 02/24/2025 MCH 29.7 02/24/2025 MCHC 31.5 02/24/2025 RDW 18.2 (H) 02/24/2025 NRBC 0.0 02/24/2025 Iron studies: Lab Results Component Value Date FERRITIN 81 03/24/2023 IRON 32 03/24/2023 TIBC 319 03/24/2023 Impression & Plan: 54 y.o. female with a historyof HFrEF due to NICM, severe MR s/p MV repair (2019) followed by mechanical MV replacement (2019) on warfarin, CAD s/p RUBEN to LAD (2020), ICD-in place (2020), PAF and ESRD on home HD. Patient presents to [facility] on 02/23/2025 w/ worsening shortness of breath. Nephrology consulted for ESRD management. #ESRD on HD Outpatient HD: - Outpatient Behavior Management Specialist: Dr. Hawkins - Residual renal functions: yes - Access: [facility] HD . [facility] Assessment and Plan: #Metabolic acidosis #Hypokalemia #Hyperphosphatemia #Hypervolemia in renal insufficiency #Disorders of electrolytes #constipation #intraabdominal abscess?/fluid collections #Acute on Chronic HFrEF EF 22% #Non-ischemic cardiomyopathy #A flutter #Mechanical Mitral valve on Warfarin - ISOLATED ULTRAFILTRATION 2-3 L today. - Check Serum Phos levels prior to resuming phos binders. - Recommend low phos diet - Please follow strict I/O's - Avoid potential nephrotoxins, including NSAIDs, IV contrast - Continue counseling regarding dietary restrictions. Nephrology will continue to follow. Please call or page with any questions. Duane Li MD Nephrology [1] aMILoride, 5 mg, Oral, Daily aspirin, 81 mg, Oral, Daily atorvastatin, 40 mg, Oral, Nightly calcitriol, 0.5 mcg, Oral, Once per day on Wednesday cetirizine, 10 mg, Oral, Nightly hydrALAZINE, 37.5 mg, Oral, q8h JOANIE isosorbide dinitrate, 20 mg, Oral, q8h JOANIE methIMAzole, 10 mg, Oral, Daily metoprolol succinate XL, 25 mg, Oral, BID mupirocin, 1 Application, Each Nostril, BID pantoprazole, 40 mg, Oral, Daily before breakfast sodium bicarbonate, 1,300 mg, Oral, Daily sodium chloride, 10 mL, Intravenous, q12h warfarin, 4 mg, Oral, Daily [2] heparin - COM Adult Full Dose Protocol - MAR calculator by anti-Xa, 0-35 Units/kg/hr, Last Rate: 20 Units/kg/hr (02/24/25 1056) * Care Plan - Luis Armando Crystal M - 02/23/2025 10:41 PM EDT Problem: Hemodialysis Goal: Safe, Effective Therapy Delivery Outcome: Ongoing, Progressing Goal: Effective Tissue Perfusion Outcome: Ongoing, Progressing Goal: Absence of Infection Signs and Symptoms Outcome: Ongoing, Progressing Problem: Adult Inpatient Plan of Care Goal: Plan of Care Review Outcome: Ongoing, Progressing Flowsheets (Taken 02/23/20252238) Progress: no change Plan of Care Reviewed With: patient Goal: Patient-Specific Goal (Individualized) Outcome: Ongoing, Progressing Flowsheets (Taken 02/23/20251999) Patient/Family-Specific Goals (Include Timeframe): Pt will be free from falls or injury during thisshift Individualized Care Needs: safety Anxieties, Fears or Concerns: none expressed Goal: Absence of Hospital-Acquired Illness or Injury Outcome: Ongoing, Progressing Intervention: Identify and Manage Fall Risk Flowsheets (Taken 02/23/20252238) Safety Promotion/Fall Prevention: activity supervised assistive device/personal items within reach clutter-free environment maintained fall prevention program maintained lighting adjusted nonskid shoes/slippers when out of bed room organization consistent safety round/check completed Intervention: Prevent Skin Injury Flowsheets Taken 02/23/20252238 Skin Protection: incontinence pads utilized pulse oximeter probe site changed Taken 02/23/20252199 Body Position: side-lying Intervention: Prevent and Manage VTE (Venous Thromboembolism) Risk Flowsheets (Taken 02/23/20252199) VTE Prevention/Management: SCDs (sequential compression devices) off Intervention: Prevent Infection Flowsheets (Taken 02/23/20252238) Infection Prevention: environmental surveillance performed hand hygiene promoted rest/sleep promoted single patient room provided Goal: Optimal Comfort and Wellbeing Outcome: Ongoing, Progressing Intervention: Monitor Pain and Promote Comfort Flowsheets (Taken 02/23/20252238) Pain Management Interventions: care clustered rest quiet environment facilitated medication offered but refused emotional support Intervention: Provide Person-Centered Care Flowsheets (Taken 02/23/20252238) Trust Relationship/Rapport: care explained choices provided emotional support provided questions encouraged thoughts/feelings acknowledged empathic listening provided reassurance provided questions answered * Nursing Note - Felicitas Weber RN - 02/23/2025 7:47 PM EDT Patient arrived to room 681 at 1828. Patient is stable and is requesting a dinner tray. Patient's call light is within reach. * Progress Notes - Corinne Oliva, PharmD - 02/23/2025 3:28 PM EDT Antithrombosis Monitoring: Warfarin Awais Smith is a 54 y.o. female who has been continued on warfarin. Warfarin Indication & Goal Anticoagulation Indication/Goal Warfarin Indication: Mechanical mitral valve;Atrial fibrillation Duration of Anticoagulation: Indefinite Target INR: 2.5-3.5 Warfarin Prior to Admission: Yes Prior to Admission Daily Warfarin Regimen: 4 mg daily per patient but last filled warfarin 3 mg daily #30 in 11/2024 Prior to Admission Weekly Warfarin Dose: 28 mg Assessment Warfarin Drug Interactions Inhibitors of Warfarin Metabolism: HMG Co-A Inhibitors (Statins) Inducers of Warfarin Metabolism: Other (comment) Other Inducer: Methimazole Increased Bleeding Risk: Aspirin;Unfractionated Heparin Interacting medications started/stopped in past 72 hours?: Yes Medication started/stopped in past 72 hours: Heparin drip full dose protocol started 02/23 Any warfarin reversal given?: No Anticoagulation Assessment Warfarin Sensitivity Risk Factors: Chronic liver, renal, or thyroid disease;Drug interaction: Inhibitors of warfarin metabolism Warfarin Sensitivity Score: High (1 or more Warfarin Sensitivity Risk Factors) Nutritional Intake: Not Documented Today's INR : Subtherapeutic Warfarin INR & Dose Trends Date INR Warfarin Dose (mg) Comments 02/23 1.3 4 mg Full dose heparin bridge protocol Plan Anticoagulation Plan Warfarin Pharmacist Managed?: Yes Warfarin Plan: Continue current dose Specify Warfarin Dose: 4 mg Bridging Agent in Conjunction With Warfarin? : Yes Ordered Agents: Unfractionated heparin Bridging Agent Dose: Full dose heparin protocol Goal PTT/anti-Xa: anti-Xa 0.30-0.70 INR Monitoring Frequency: Monitor INR daily Patient Education : Incomplete Transitions of Care Outpatient provider managing warfarin after [facility] discharge: Anticoagulation Clinic, will need new referral Recommended date for outpatient INR assessment: To be determined Will continue to follow patient's clinical progress daily. Corinne Oliva, PharmD Transplant Clinical Pharmacist * Consults - Svitlana Hazel RD - 02/23/2025 3:10 PM EDT Received HF nutrition education consult while pt being assessed/treated in ED. Will follow for TTF and will offer instruction when appropriate. Svitlana Hazel RD * H&P - Ro Toro APRN, DNP - 02/23/2025 1:47 PM EDT Advanced Heart Failure Admission Chief Complaint Patient presents with Shortness of Breath Awais Smith is a 54 y.o. female with a PMH to include: HFrEF s/t NICM, severe MR s/p MV repair(2019), followed by mechanical MV replacement (2019), CAD s/p RUBEN to LAD (2020), ICD in place (2020), PAF, and ESRD previously on PD recently transitioned to iHD. Patient presents to ED today 02/23/25 for OBRIEN, shortness of breath, and orthopnea. Patient was recently admitted 11/15-11/24 for progressively worsening abdominal pain in setting of herPD catheter being non-functional for 4-[address] scans demonstrated multiple intra-abdominal and pelvic abscesses for which she completed a 14 day course of antibiotics. Nephrology was consulted in setting of non functioning PD catheter it was subsequently removed and an tunneled HD catheter was placed. Patient was set up with iHD chair prior to discharge. Also notable during hospitalization waspatients subtherapeutic INR for which she was briefly on a heparin gtt to bridge warfarin. Patient was seen in clinic on 02/01 by Hollie Rodriguez APRN. Patient reported OBRIEN and LE edema with weight gain every few months. She did not note shortness of breath but did express concern about abdominal swelling. At time of clinci vist patient reports that her iHD sessions had been stopped early the day before s/t cramping.. Patient presented to the ED today after 2-3 weeks of progressive shortness of breath, dyspnea on exertion, abdominal swelling. Patient reports that her worsening symptomology correlates with decreased fluid removal during iHD session. Patient was getting 3L fluid removal in beginning of her iHD session; however 3 weeks ago she started to experience cramping that limited toleration of more than 2L. Patient was set to get iHD today however she chose to present to the ED instead due to her symptoms. Patient denies missing any dialysis sessions. She denies fever, chill, chest/abdominal pain. She denies any recent sick contacts. Notable labs on admission: Na 133, Scr 2.94, nt probnp 41K. Patient will admitted to [facility] for further workup and evaluation. Review of symptoms Constitutional: Negative for decreased appetite and + weight gain. Denies any fever, chills, or sweats Cardiovascular: Negative for chest pain, + dyspnea on exertion, leg swelling, near-syncope, + orthopnea, palpitations, +paroxysmal nocturnal dyspnea and syncope. Respiratory: Negative for cough, +shortness of breath and sleep disturbances due to breathing. Gastrointestinal: + bloating. : denies dysuria Skin: denies rash or lesions MSK: denies any joint pain Psych: denies depression or anxiety Endo: denies any heat or cold intolerance Neuro: denies any MCELROY, visual changes, or motor changes Hematology: denies any bleeding 14 Point ROS reviewed and is otherwise negative except as per HPI. Past Medical History Past Medical History[1] Surgical History Surgical History[2] Family History family history includes Kidney cancer in her mother; Kidney disease in her brother. Social History reports that she quit smoking about 5 years ago. Her smoking use included cigarettes. She has neverused smokeless tobacco. She reports that she does not currently use alcohol. She reports that she does not currently use drugs after having used the following drugs: Marijuana. Medications Current Medications[3] Physical Exam Constitutional: Appearance: ill appearing, sitting up in bed HENT: Head: Normocephalic and atraumatic. Neck: + JVD Cardiovascular: Rate and Rhythm: Normal rate and paced rhythm. Heart sounds: Normal heart sounds. Pulmonary: Effort: labored breathing; 2LNC Breath sounds: rhonchi, diminished in the based Abdominal: General: Abdomen is rounded/bloated Palpations: Abdomen is firm, non-tender, no guarding or rigidity Extremities: Trace Skin: General: Skin is warm and dry. Neurological: General: No focal deficit present. Mental Status: The patient is alert and oriented to person, place, and time. Psychiatric: Mood and Affect: Mood normal. Behavior: Behavior normal. Visit Vitals BP (!) 158/105 Pulse 80 Temp 36.6 ??C (97.8 ??F) Wt 77.5 kg (170 lb 13.7 oz) SpO2 99% BMI 27.58 kg/m?? Imaging Echo, Adult Transthoracic Complete Result Date: 02/01/2025 Left Ventricle: The left ventricle is dilated. There is eccentric hypertrophy. No left ventricular mass or thrombus is seen. The LVEF as measured by biplane volume is 22%. The calculated cardiac index based on LVOT Doppler technique is normal. Unable to assess diastolic function due to mitral valvesurgery. There is global hypokinesis of the left ventricle. See diagram below for wall motion findings. Right Ventricle: The right ventricle is dilated. A catheter/lead is present in the right ventricle. The right ventricular systolic function is reduced. Mitral Valve: There is a bileaflet mechanical mitral valve (35/25 mm ON-X) that is well seated. Mitral regurgitation is present; however, its se verity cannot be assessed due to shielding from the prosthesis. There is no mitral stenosis. The mean mitral valve pressure gradient is estimated to be 5 mmHg at a heart rate of 80 bpm. Tricuspid Valve: There is severe tricuspid regurgitation. IVC/SVC: Based on the IVC size and respiratory variation, the estimated right atrial pressure is 15mmHg. Compared to the most recently available prior study, and allowing for differences in image quality and technique, there is no significant interval change noted. Echo, Adult Transthoracic (TTE) Limited Result Date: 05/25/2024 Compared to the most recently available prior study, and allowing for differences in image quality and technique, there is no significant interval change noted. Echo, Adult Transthoracic Complete Result Date: 04/24/2024 Left Ventricle: Based on the linear dimension and/or 2D volumes, the left ventricle is severely dilated in size. There is severe eccentric hypertrophy. The left ventricular systolic function is severely reduced. The LVEF as measured by biplane volume is 21%. Unable to assess diastolic function due to mitral valve surgery. There is global hypokinesis of the left ventricle. Right Ventricle: The right ventricle is mildly dilated. The right ventricular systolic function is mildly reduced. Right ventricular systolic pressure is moderately elevated (50-70mmHg). The estimated right ventricular systolic pressure is 56 mmHg. Mitral Valve: There is a bileaflet mechanical mitral valve (35/25 mm On-X) that is well seated. Mitral regurgitation is present; however, its severity cannot be assessed due to shielding from the prosthesis. The mean mitral valve pressure gradient is estimated to be 14 mmHg at a heart rate of 84 bpm. The gradient is abnormally high for this prosthetic valve due to combination of regurgitation and stenosis. Tricuspid Valve: There is moderate tricuspid regurgitation. Compared to the most recently available prior study, and allowing for differences in image quality and technique, LV systolic function is worse. The mechanical mitral mean gradient is now significantly elevated. Labs Lab Results Component Value Date HGB 11.2 02/23/2025 HCT 35.8 02/23/2025 PLT 124 (L) 02/23/2025 CHOL ORDERED ERRONEOUSLY BY LAB. [facility]. 09/03/2017 TRIG ORDERED ERRONEOUSLY BY [facility]. [facility]. 09/03/2017 HDL ORDERED ERRONEOUSLY BY LAB. [facility]. 09/03/2017 LDLCALC ORDERED ERRONEOUSLY BY LAB. [facility]. 09/03/2017 ALT 12 02/23/2025 AST 18 02/23/2025 NA 133 (L) 02/23/2025 K 3.3 (L) 02/23/2025 CREATININE 2.94 (H) 02/23/2025 BUN 32 (H) 02/23/2025 CO2 16 (L) 02/23/2025 TSH 18.70 (H) 11/16/2024 INR 2.9 (H) 11/24/2024 HGBA1C 6.2 (H) 03/23/2023 Assessment and Plan Acute on Chronic HFrEF s/t NICM NYHA IV Stage C -Significantly fluid volume overloaded -Home GDMT: toprol 100mg BID -Bumex 2mg BID daily though patient reports she is only taking it on non HD days -No IVA/ARB/ARNI/SGLT2i s/t ESRD -Bidil 20mg-37.5 2 pills TID -RIA- LVED 20-25%, RV dilated, RVSF moderately reduced, no thrombus seen, mechanical MV well seated, echogenic mass extending along the MV prosthetic ring, small mobile echogenic are consistent with thrombus, mild TR, trace HI, -TTE 02/01/25- no mass or thrombus seen, LVEF 22%, global hypokinesis of LV, RV dilated, RVSF reduced, LV size severely increased, trace AR, mechanical MV well seated, MR present, severe TR, mild HI, LVIDd 5.8 -Patient is not a candidate for renal txp as her heart function is too poor. Nor is she a dual organ heart/kidney txp candidate as she has has 2 prior sternotomies as well as compliance issues -NT probnp 41K on admission -Patient received 1mg IV bumex in ED Plan: -Toprol held -Bidil held while inpatient because not on formulary- will start hydral and isosorbide if BP remains high post iHD -Stat ECHO ordered to evaluate EF and evaluate for clot 2/2 INR 1.3 on admission ESRD -Was on PD but developed abscess -Transitioned to HD -Per patient she has not missed any iHD appointments -Was getting 3L removed at [facility] HD however patient reports that she was nolonger tolerating that (she was having ramping) so fluid removal was decreased to 2L -She started having increase fluid retention right after fluid removal was reduced -Bumex 2mg 2mg BID daily though patient reports she is only taking it on non HD days -No IVA/ARB/ARNI/SGLT2i s/t ESRD Plan: -Nephrology consulted -[facility] dialysis -Avoid nephrotoxic medications -Renally dose medications -Resumed sodium bicarb and calcitrol -Low phos diet for hyperphosphatemia; patient does not appear to be on phos binder at home Severe MR -S/p MV repair (2019) followed by mechanical valve replacement (2019) -Well seated per RIA 05/2024 -Mitral valve thrombus note on RIA 05/2024 -Supposed to be anticoagulated on warfarin. Referral has been sent to [facility] whohave been trying to contact patient for multiple months with no response. Therefore, patient has not had any recent INRs drawn outpatient -Patient does report current warfarin use; stating she is on 4mg daily Plan: -INR 1.3 on admission -Started warfarin at 4mg -Full dose heparin gtt started CAD -S/P RUBEN to LAD (2020) -ASA and statin resumed PAF -S/p BiV ICD with AV yared ablation with MD Ramirez 05/2024 -H/O amio thyrotoxicosis -Follow with MD Ramirez Plan: -Toprol held at this time HTN HLD -Statin resumed -Bidil held at this time Hyperthyroidism -In the setting of amiodarone thyrotoxicosis -Continue home methimazole Hypocalcemia Hypokalemia Hypomagnesemia -Replace as needed -Amiloride for hypokalemia The following cardiovascular risk factors and co-morbidities complicates the management of these conditions: Fluid & Electrolyte Disorders - needs improvement with the following disturbances: volume overload, hyponatremia, hypokalemia, hypomagnesemia, and hyperphosphatemia Coagulation Defect - with a last coagulation profile of: INR: 2.9, Xa: 0.31, PLT: 124 Chronic Kidney Disease (CKD) - needs further observation with a last eGFR of: 18.4mL/min/1.73 sq meters Calcium Disorder - needs improvement with last calcium of: 8.7g/dL Dispo plan: pending FEN: reg cardiac 2g NA, 1800 FR low phos Ppx: warfarin, PPI Patient was seen and assessed in collaboration with Dr. Green who agrees with the above plan of care. Ro Toro APRN, DNP [1] Past Medical History: Diagnosis Date CHF (congestive heart failure) ([facility]/HCC) Chronic kidney disease COPD (chronic obstructive pulmonary disease) (CMS/HCC) Coronary artery disease ESRD (end stage renal disease) (CMS/HCC) Hyperlipidemia Hypertension Myocardial infarction ([facility]/HCC) [2] Past Surgical History: Procedure Laterality Date AV FISTULA PLACEMENT Right CARDIAC CATHETERIZATION CARDIAC DEFIBRILLATOR PLACEMENT CARDIAC VALVE REPLACEMENT CORONARY ANGIOPLASTY CORONARY STENT PLACEMENT HYSTERECTOMY INSERT / REPLACE / REMOVE PACEMAKER MITRAL VALVE REPLACEMENT [3] Current Facility-Administered Medications Medication Dose Route Frequency Provider Last Rate Last Admin aMILoride (Midamor) tablet 5 mg 5 mg Oral Daily Ro Toro APRN, DNP aspirin chewable tablet 81 mg 81 mg Oral Daily Ro Toro APRN, DNP atorvastatin (Lipitor) tablet 40 mg 40 mg Oral Nightly Ro Toro APRN, DNP calcitriol (Rocaltrol) capsule 0.5 mcg 0.5 mcg Oral Once per day on Wednesday Ro Toro APRN, DNP cetirizine (ZyrTEC) tablet 10 mg 10 mg Oral Nightly Ro Toro APRN, DNP fluticasone (Flonase) nasal spray 2 spray 2 spray Each Nostril Daily PRN oR Toro APRN, DNP methIMAzole (Tapazole) tablet 10 mg 10 mg Oral Daily Ro Toro APRN, DNP [START ON 02/24/2025] pantoprazole (Protonix) EC tablet 40 mg 40 mg Oral Daily before breakfast Ro Toro APRN, DNP sodium bicarbonate tablet 1,300 mg 1,300 mg Oral Daily Ro Toro APRN, DNP sodium chloride 0.9 % flush 10 mL 10 mL Intravenous q12h Ro Toro APRN, DNP And sodium chloride 0.9 % flush 10 mL 10 mL Intravenous PRN Ro Toro APRN, DNP Current Outpatient Medications Medication Sig Dispense Refill Acetaminophen Extra Strength 500 MG tablet Take 1 tablet by mouth every 6 hours as needed. aMILoride (Midamor) 5 MG tablet Take 1 tablet (5 mg) by mouth 1 (one) time each day. 30 tablet 1 Aspirin Low Dose 81 MG EC tablet Take 1 tablet by mouth daily. atorvastatin (Lipitor) 40 MG tablet Take 1 tablet (40 mg) by mouth every night. 30 tablet 3 bumetanide (Bumex) 2 MG tablet Take 1 tablet by mouth 2 times a day. calcitriol (Rocaltrol) 0.5 MCG capsule Take 1 capsule by mouth 3 times a week. cetirizine (ZyrTEC) 10 MG tablet Take 1 tablet (10 mg) by mouth every night. 30 tablet 11 fluticasone (Flonase) 50 MCG/ACT nasal spray Administer 2 sprays into each nostril daily as needed for allergies. iron sucrose 200 mg in sodium chloride 0.9 % 90 mL IVPB Infuse 200 mg into a venous catheter. isosorbide-hydrALAZINE (BiDil) 20-37.5 MG tablet Take 1 tablet by mouth in the morning and 1 tabletin the evening and 1 tablet before bedtime. 90 tablet 11 methIMAzole (Tapazole) 10 MG tablet Take 1 tablet (10 mg) by mouth 1 (one) time each day. 30 tablet0 metoprolol succinate XL (Toprol-XL) 100 MG 24 hr tablet Take 1 tablet (100 mg) by mouth 2 (two) times a day. Do not crush or chew. 60 tablet 3 pantoprazole (Protonix) 40 MG EC tablet Take 1 tablet by mouth daily before breakfast. Do not crush, chew, or split. polyethylene glycol (Miralax) 17 g packet Take 17 g by mouth 2 times a day. 180 packet 3 potassium chloride CR (Klor-Con M20) 20 MEQ ER tablet Take 2 tablets by mouth 2 times a day. Do notcrush or chew. 120 tablet 1 senna (Senokot) 8.6 MG tablet Take 2 tablets by mouth nightly. 180 tablet 3 sodium bicarbonate 650 MG tablet Take 2 tablets (1,300 mg) by mouth 1 (one) time each day. 30 tablet 3 Velphoro 500 MG chewable tablet Chew 1 tablet 3 (three) times a day. warfarin (Coumadin) 3 MG tablet Take 1 tablet by mouth daily. Please take 3mg every day EXCEPT Mondays where you will take 1.5mg only (half tablet) 30 tablet 11 * Hospital Course - Ro Toro APRN, DNP - 02/23/2025 1:16 PM EDT -sob, obrien, dyspneic with convo, worsening orthpopnea -about 2-3 week ago bad cramping so decrease fluid removal from 3L to 2L. That's around the time symptoms worsened -tried to increase removal on Wednesday but cramping was too bad. Never had issues with bp -supposed to have hd today but symptoms worse so cam to ed - no cp/bp, no issues with bm, no fever chills -2mg bid on non hd days - * Consults - Mirtha Garcia MD - 02/23/2025 12:45 PM EDTAssociated Order(s): IP CONSULT TO NEPHROLOGY Nephrology Dialysis Consult Note Patient: Awais Smith Admit Date: 02/23/2025 Date of Consult: 02/23/2025 Time of Consult: 12:45 PM Requesting Attending: German Richardson MD Reason for Consult: ESRD management HPI: 54 y.o. female with a historyof HFrEF due to NICM, severe MR s/p MV repair (2019) followed by mechanical MV replacement (2019) on warfarin, CAD s/p RUBEN to LAD (2020), ICD-in place (2020), PAF and ESRD on home HD. Patient presents to [facility] on 02/23/2025 w/ worsening shortness of breath. Nephrology consulted for ESRD management. Patient has been drinking fluids in excess of 64 oz per day along with eating a lot of burgers. She's not able to maintain a low salt, fluid restricted diet at home thus far. ROS: ROS was obtained in 14 points and is negative except otherwise as noted in the HPI. History: Past Medical History[1] Problem List[2] Surgical History[3] Family History[4] Social History Socioeconomic History Marital status: Spouse name: Not on file Number of children: Not on file Years of education: Not on file Highest education level: Not on file Occupational History Not on file Tobacco Use Smoking status: Former Current packs/day: 0.00 Types: Cigarettes Quit date: 2019 Years since quittin.6 Smokeless tobacco: Never Vaping Use Vaping status: Never Used Substance and Sexual Activity Alcohol use: Not Currently Drug use: Not Currently Types: Marijuana Sexual activity: Not on file Other Topics Concern Not on file Social History Narrative Not on file Social Drivers of Health Financial Resource Strain: Medium Risk (11/16/2024) Overall Financial Resource Strain (CARDIA) Difficulty of Paying Living Expenses: Somewhat hard Food Insecurity: Food Insecurity Present (11/29/2024) Hunger Vital Sign Worried About Running Out of Food in the Last Year: Sometimes true Ran Out of Food in the Last Year: Sometimes true Transportation Needs: No Transportation Needs (11/29/2024) PRAPARE - Transportation Lack of Transportation (Medical): No Lack of Transportation (Non-Medical): No Physical Activity: Not on file Stress: Not on file Social Connections: Low Risk (07/30/2023) Received from [employer] ([place], [place], [place], [place]) Family and Community Support Help with Day to Day Activities: Not on file Feeling Lonely or Isolated: Not on file Intimate Partner Violence: Not At Risk (11/16/2024) Humiliation, Afraid, Rape, and Kick questionnaire Fear of Current or Ex-Partner: No Emotionally Abused: No Physically Abused: No Sexually Abused: No Housing Stability: Low Risk (11/29/2024) Housing Stability Vital Sign Unable to Pay for Housing in the Last Year: No Number of Times Moved in the Last Year: 0 Homeless in the Last Year: No Allergies[5] Medications: Home Medications: Current Medications[6] Current Medications: Current Scheduled Medications[7] Current Continuous Medications[8] Physical Exam: Visit Vitals BP (!) 158/105 Pulse 80 Temp 36.6 ??C (97.8 ??F) Resp (!) 35 Wt 77.5 kg (170 lb 13.7 oz) SpO2 99% BMI 27.58 kg/m?? OB Status Hysterectomy Smoking Status Former BSA 1.9 m?? Constitutional: No acute distress, well-nourished Respiratory: No Resp distress noted. Lungs CTAB Cardiovascular: Regular rate, JVD Gastrointestinal: Soft, non-tender, non-distended Ext: Trace LE edema Neurologic: Alert and oriented Access: RIJ tunneled dialys catheter Laboratory: CBC: Results from last 7 days Lab Units 02/23/25 1015 WBC 10*3/uL 8.53 HEMOGLOBIN g/dL 11.2 HEMATOCRIT % 35.8 PLATELETS 10*3/uL 124* CMP: Results from last 7 days Lab Units 02/23/25 1015 SODIUM mmol/L 133* POTASSIUM mmol/L 3.3* CHLORIDE mmol/L 101 CO2 mmol/L 16* BUN mg/dL 32* CREATININE mg/dL 2.94* CALCIUM mg/dL 8.7* BILIRUBIN TOTAL mg/dL 1.1 ALKALINE PHOSPHATASE U/L 106* ALT U/L 12 AST U/L 18 GLUCOSE mg/dL 100* Impression & Plan: 54 y.o. female with a historyof HFrEF due to NICM, severe MR s/p MV repair (2019) followed by mechanical MV replacement (2019) on warfarin, CAD s/p RUBEN to LAD (2020), ICD-in place (2020), PAF and ESRD on home HD. Patient presents to [facility] on 02/23/2025 w/ worsening shortness of breath. Nephrology consulted for ESRD management. #ESRD on HD Outpatient HD: - Outpatient Behavior Management Specialist: Dr. Hawkins - Residual renal functions: yes - Access: [facility] HD . [facility] Assessment and Plan: #Metabolic acidosis #Hypokalemia #Hyperphosphatemia #Hypervolemia in renal insufficiency #Disorders of electrolytes #constipation #intraabdominal abscess?/fluid collections #Acute on Chronic HFrEF EF 22% #Non-ischemic cardiomyopathy #A flutter #Mechanical Mitral valve on Warfarin - 3hrs, BFR 300-400 mL/min, DFR 600-800 mL/min, 3.5K, 2.5Ca, 35HCO3, 136Na, UF 1.5-2L - Check Serum Phos levels prior to resuming phos binders. - Recommend low phos diet - Please follow strict I/O's - Avoid potential nephrotoxins, including NSAIDs, IV contrast - Continue counseling regarding dietary restrictions. Nephrology will continue to follow. Please call or page with any questions. Mirtha Garcia MD. FACP. Nephrology and Critical Care Medicine Fellow Pager: [phone] or [employer] secure chat [1] Past Medical History: Diagnosis Date CHF (congestive heart failure) ([facility]/HCC) Chronic kidney disease COPD (chronic obstructive pulmonary disease) ([facility]/HCC) Coronary artery disease ESRD (end stage renal disease) ([facility]) Hyperlipidemia Hypertension Myocardial infarction ([facility]) [2] Patient Active Problem List Diagnosis ESRD needing dialysis ([facility]) H/O mitral valve replacement Hyperchylomicronemia Essential hypertension NICM (nonischemic cardiomyopathy) ([facility]/HCC) ICD (implantable cardioverter-defibrillator) in place HFrEF (heart failure with reduced ejection fraction) ([facility]) Chronic anticoagulation Persistent atrial fibrillation ([facility]/HCC) track watchman (current) use of anticoagulants Acute on chronic systolic heart failure (CMS/HCC) Anaphylactic reaction due to adverse effect of correct drug or medicament properly administered, initial encounter Anemia, chronic disease Basal cell carcinoma of nose Chronic obstructive pulmonary disease ([facility]/HCC) CKD (chronic kidney disease) Dependence on renal dialysis ([facility]) Diverticulosis of large intestine without perforation or abscess without bleeding Elevated serum creatinine Elevated troponin Gastroesophageal reflux disease Hypertensive heart and chronic kidney disease with heart failure and with stage 5 chronic kidney disease, or end stage renal disease ([facility]/HCC) Hypervolemia associated with renal insufficiency Hypokalemia Intracardiac thrombosis, not elsewhere classified Iron deficiency anemia, unspecified NSTEMI (non-ST elevated myocardial infarction) ([facility]) Other disorders of phosphorus metabolism Proteinuria, unspecified RLS (restless legs syndrome) Secondary hyperparathyroidism of renal origin ([facility]) Shortness of breath Stage 3b chronic kidney disease ([facility]) Unspecified atrial flutter ([facility]) Unspecified protein-calorie malnutrition ([facility]) Intra-abdominal infection [3] Past Surgical History: Procedure Laterality Date AV FISTULA PLACEMENT Right CARDIAC CATHETERIZATION CARDIAC DEFIBRILLATOR PLACEMENT CARDIAC VALVE REPLACEMENT CORONARY ANGIOPLASTY CORONARY STENT PLACEMENT HYSTERECTOMY INSERT / REPLACE / REMOVE PACEMAKER MITRAL VALVE REPLACEMENT [4] Family History Problem Relation Name Age of Onset Kidney cancer Mother Kidney disease Brother [5] Allergies Allergen Reactions Chlorhexidine Hives Codeine Hives and Unknown - Patient states they do not know rxn details [6] No current facility-administered medications for this encounter. Current Outpatient Medications: Acetaminophen Extra Strength 500 MG tablet, Take 1 tablet by mouth every 6 hours as needed., Disp: , Rfl: aMILoride (Midamor) 5 MG tablet, Take 1 tablet (5 mg) by mouth 1 (one) time each day., Disp: 30 tablet, Rfl: 1 Aspirin Low Dose 81 MG EC tablet, Take 1 tablet by mouth daily., Disp: , Rfl: atorvastatin (Lipitor) 40 MG tablet, Take 1 tablet (40 mg) by mouth every night., Disp: 30 tablet, Rfl: 3 bumetanide (Bumex) 2 MG tablet, Take 1 tablet by mouth 2 times a day., Disp: , Rfl: calcitriol (Rocaltrol) 0.5 MCG capsule, Take 1 capsule by mouth 3 times a week., Disp: , Rfl: cetirizine (ZyrTEC) 10 MG tablet, Take 1 tablet (10 mg) by mouth every night., Disp: 30 tablet, Rfl: 11 fluticasone (Flonase) 50 MCG/ACT nasal spray, Administer 2 sprays into each nostril daily as neededfor allergies., Disp: , Rfl: iron sucrose 200 mg in sodium chloride 0.9 % 90 mL IVPB, Infuse 200 mg into a venous catheter., Disp: , Rfl: isosorbide-hydrALAZINE (BiDil) 20-37.5 MG tablet, Take 1 tablet by mouth in the morning and 1 tablet in the evening and 1 tablet before bedtime., Disp: 90 tablet, Rfl: 11 methIMAzole (Tapazole) 10 MG tablet, Take 1 tablet (10 mg) by mouth 1 (one) time each day., Disp: 30 tablet, Rfl: 0 metoprolol succinate XL (Toprol-XL) 100 MG 24 hr tablet, Take 1 tablet (100 mg) by mouth 2 (two) times a day. Do not crush or chew., Disp: 60 tablet, Rfl: 3 pantoprazole (Protonix) 40 MG EC tablet, Take 1 tablet by mouth daily before breakfast. Do not crush, chew, or split., Disp: , Rfl: polyethylene glycol (Miralax) 17 g packet, Take 17 g by mouth 2 times a day., Disp: 180 packet, Rfl: 3 potassium chloride CR (Klor-Con M20) 20 MEQ ER tablet, Take 2 tablets by mouth 2 times a day. Do not crush or chew., Disp: 120 tablet, Rfl: 1 senna (Senokot) 8.6 MG tablet, Take 2 tablets by mouth nightly., Disp: 180 tablet, Rfl: 3 sodium bicarbonate 650 MG tablet, Take 2 tablets (1,300 mg) by mouth 1 (one) time each day., Disp: 30 tablet, Rfl: 3 Velphoro 500 MG chewable tablet, Chew 1 tablet 3 (three) times a day., Disp: , Rfl: warfarin (Coumadin) 3 MG tablet, Take 1 tablet by mouth daily. Please take 3mg every day EXCEPT Mondays where you will take 1.5mg only (half tablet), Disp: 30 tablet, Rfl: 11 [7] [8] Cosigned by Duane Li MD at 02/24/2025 9:20 AM EDT Associated attestation - Duane Li MD - 02/24/2025 9:20 AM EDT I saw and evaluated the patient with the resident/fellow. I discussed the case with the resident/fellow and agree with the findings and plan as documented. * ED Procedure Note - Loida Chirinos MD - 02/23/2025 7:42 AM EDTAssociated Order(s): POC Ultrasound - Bedside Procedure Reason: SOB POC Ultrasound - Bedside Performed by: Loida Chirinos MD Authorized by: German Richardson MD Procedure specific details: Limited Cardiac Ultrasound A focused ultrasound of the heart was performed to evaluate for pericardial effusion, tamponade, severe hypovolemia, or gross abnormalities of cardiac anatomy or function in this patient. The ultrasound was performed with the following indications, as noted in the H&P: Dyspnea Identified structures: The pericardial sac, myocardium, and 4 chambers were identified using the following views: Parasternal long axis and Parasternal short axis Findings Exam of the above structures revealed the following findings: Pericardial Effusion: Absent Pericardial tamponade: absent Visual estimation of LV function: Severely depressed Visual estimation of RV size: less than 1:1 RV/LV ratio Other: B-lines visualized in bilateral lungs Impression: Diminished LV function The images were Saved in [employer] - E. The study was technically adequate. Comments: B-lines visualized in bilateral lungs, could be suggestive of CHF exacerbation Loida Chirinos MD Resident 02/23/25 1114 Cosigned by German Richardson MD at 02/25/2025 7:04 AM EDT Associated attestation - German Richardson MD - 02/25/2025 7:04 AM EDT Ultrasound images not reviewed by attending; ultrasound not billable. * Care Plan - Jane Macias RN - 02/23/2025 7:42 AM EDT Problem: Hemodialysis Goal: Safe, Effective Therapy Delivery Outcome: Ongoing, Progressing Goal: Effective Tissue Perfusion Outcome: Ongoing, Progressing Goal: Absence of Infection Signs and Symptoms Outcome: Ongoing, Progressing Problem: Adult Inpatient Plan of Care Goal: Plan of Care Review Outcome: Ongoing, Progressing Goal: Patient-Specific Goal (Individualized) Outcome: Ongoing, Progressing Flowsheets (Taken 02/23/2025 1017) Patient/Family-Specific Goals (Include Timeframe): Patient will remain free from falls during hospitalization, with safety measures in place and verbalization of understanding fall prevention strategies within 72 hours. Individualized Care Needs: Patient requires fall prevention strategies including frequent rounding,assistance with ambulation, clear pathways, and education on use of call light and mobility aids toreduce risk of injury due to impaired mobility and/or medications. Anxieties, Fears or Concerns: none specified Goal: Absence of Hospital-Acquired Illness or Injury Outcome: Ongoing, Progressing Goal: Optimal Comfort and Wellbeing Outcome: Ongoing, Progressing * ED Provider Notes - Pao Chacon MD - 02/23/2025 7:42 AM EDT - HPI Chief Complaint Patient presents with ??? Shortness of Breath HPI Patient is a 54 yo F with HFrEF due to NICM, severe MR s/p MV repair (2019) followed by mechanical MV replacement (2019), CAD s/p RUBEN to LAD (2020), ICD-in place (2020), PAF and ESRD on home PD. She is presenting to the ED due to acute on chronic dyspnea and tachypnea for the past couple weeks. Shestates she had planned to get outpatient paracentesis but could not tolerate her symptoms any longer. She had previously been undergoing home peritoneal dialysis but was hospitalized in November due to anabscess and had her catheter removed. She has since been going to clinic for dialysis Mon, Wed, Fri, and was scheduled to go today but her symptoms were intolerable. Denies chest pain, n/v, abdominalpain. Patient History Past Medical History[1] Surgical History[2] Family History[3] Social History[4] Allergies: Allergies[5] Physical Exam ED Triage Vitals [02/23/25 0750] Temp Heart Rate Resp BP 36.6 ??C (97.8 ??F) 83 21 (!) 144/98 SpO2 Temp src Heart Rate Source Patient Position 99 % -- -- -- BP Location FiO2 (%) -- -- Physical Exam Vitals and nursing note reviewed. Constitutional: General: She is not in acute distress. Appearance: She is well-developed. HENT: Head: Normocephalic and atraumatic. Eyes: Conjunctiva/sclera: Conjunctivae normal. Cardiovascular: Rate and Rhythm: Normal rate and regular rhythm. Heart sounds: No murmur heard. Pulmonary: Effort: Tachypnea present. Breath sounds: Decreased breath sounds present. Abdominal: Palpations: Abdomen is soft. Tenderness: There is no abdominal tenderness. Musculoskeletal: General: No swelling. Cervical back: Neck supple. Skin: General: Skin is warm and dry. Capillary Refill: Capillary refill takes less than 2 seconds. Neurological: Mental Status: She is alert. Psychiatric: Mood and Affect: Mood normal. No data recorded ED Course & MDM - Assessment: 54 y.o. female presents to ED with complaint of acute on chronic dyspnea and tachypnea for the pastcouple weeks. She was supposed to get dialysis today around lunch time. It should be noted that thechronic conditions includes HFrEF due to NICM, severe MR s/p MV repair (2019) followed by mechanical MV replacement (2019), CAD s/p RUBEN to LAD (2020), ICD-in place (2020), PAF and ESRD on home PD, which currently is not at goal therapy. This complicates the clinical picture because it Comorbidities: may be exacerbating symptoms and complicates the clinical workup Differential Diagnosis: CHF exacerbation, COPD exacerbation, PE, asthma In order to fully explore the differential diagnosis the following treatments and tests were ordered: All Other Orders Ordered Status Ordering Provider 02/23/25 1114 POC Ultrasound - Bedside Once Comments: This order was created via procedure documentation Preliminary result LOIDA CHIRINOS 02/23/25 1112 Once Comments: This order was created via procedure documentation Canceled LOIDA CHIRINOS 02/23/25 1001 Blood gas panel, venous STAT Final result PAO CHACON 02/23/25 1001 CBC w/diff STAT Final result PAO CHACON 02/23/25 1001 CMP STAT Final result PAO CHACON 02/23/25 1001 XR Chest 2 Views Once In process PAO CHACON 02/23/25 1001 Magnesium STAT Final result PAO CHACON 02/23/25 1001 Phosphorus STAT Final result PAO CHACON 02/23/25 1001 Procalcitonin STAT Final result PAO CHACON 02/23/25 1001 BNP STAT Final result PAO CHACON 02/23/25 0749 EKG now - STAT (adult) Once Preliminary result NANCY NGUYEN ED Course as of 02/23/25 1557 WedFeb 23, 2025 0914 Vitals upon arrival with BP of 144/98, heart rate of 83, normal respiratory rate and O2 saturation on room air. Afebrile. [JG] 1316 Potassium(!): 3.3 [JG] 1316 Sodium(!): 133 [JG] 1316 Creatinine(!): 2.94 At baseline [JG] 1317 N-Terminal, PROBNP, Plasma(!): 41,068 Acute on chronic elevation [JG] 1317 pH, Venous(!): 7.44 Metabolic alkalosis [JG] ED Course User Index [JG] Pao Chacon MD Clinical Impressions as of 02/23/25 1557 Acute on chronic diastolic heart failure (CMS/HCC) Social Determinates of Health Risks (including Economic Stability, Education and level of understanding, Healthcare access and quality and concerning social factors): None identified on this visit This patient is a 54 yo f with complex cardiac medical history and ESRD on dialysis is presenting due to acute on chronic SOB and tachypnea. She has been saturating 99% since arrival, but has increased WOB. She was scheduled to get dialysis today around lunch time. POC US did not show a large pocket for para. CT PE showed Ultimately, this patient was Was admitted (Admission) There were no encounter diagnoses.. Patient believed to require admission for the listed diagnoses. The Cardiology service was consulted for admission and was agreeable to admit to Acute Floor (Med/Surg). ED Prescriptions None I Dr. Chacon saw and evaluated the patient with the medical student. I discussed the case with the medical student and agree with the findings and plan as documented. I personally performed the Exam and Medical Decision Making. - [1] Past Medical History: Diagnosis Date ??? CHF (congestive heart failure) ([facility]) ??? Chronic kidney disease ??? COPD (chronic obstructive pulmonary disease) (CMS/[facility]) ??? Coronary artery disease ??? ESRD (end stage renal disease) ([facility]) ??? Hyperlipidemia ??? Hypertension ??? Myocardial infarction ([facility]) [2] Past Surgical History: Procedure Laterality Date ??? AV FISTULA PLACEMENT Right ??? CARDIAC CATHETERIZATION ??? CARDIAC DEFIBRILLATOR PLACEMENT ??? CARDIAC VALVE REPLACEMENT ??? CORONARY ANGIOPLASTY ??? CORONARY STENT PLACEMENT ??? HYSTERECTOMY ??? INSERT / REPLACE / REMOVE PACEMAKER ??? MITRAL VALVE REPLACEMENT [3] Family History Problem Relation Name Age of Onset ??? Kidney cancer Mother ??? Kidney disease Brother [4] Tobacco Use ??? Smoking status: Former Current packs/day: 0.00 Types: Cigarettes Quit date: 2020 Years since quittin.6 ??? Smokeless tobacco: Never Vaping Use ??? Vaping status: Never Used Substance Use Topics ??? Alcohol use: Not Currently ??? Drug use: Not Currently Types: Marijuana [5] Allergies Allergen Reactions ??? Chlorhexidine Hives ??? Codeine Hives and Unknown - Patient states they do not know rxn details Pao Chacon MD Resident 02/23/25 9597 Cosigned by German Richardson MD at 02/25/2025 7:05 AM EDT Associated attestation - German Richardson MD - 02/25/2025 7:05 AM EDT IGerman MD, personally verified the history, examined the patient, discussed with the student and resident and performed the medical decision making. I agree with the documentation and plan of care. * ED Triage Notes - Doreen Mcfadden RN - 02/23/2025 7:42 AM EDT Patient has a hx of CKD and CHF, presents today with increase shortness of air , concerns for a CHFexacerbation and also states that she needs a para. documented in this encounter Plan of Treatment Upcoming Encounters Date Type Department Care Team (Late st Contact Info) Description 05/24/2025 1:40 PM EST Office Visit [facility] [address] [address] Lenore Cosme MD [address] [place] [address] 08/02/2025 1:40 PM EST Office Visit [facility] [address] [address] Lenore Cosme MD [address] [place] [address] Scheduled Referrals Name Type Priority Associated Diagnoses Orde r Schedule Discharge Ambulatory referral to Anticoagulation - Warfarin Monitoring Outpatient Referral Routine Acute decompensated heart failure (CMS/HCC) Ordered: 03/06/2025 documented as of this encounter Procedures Procedure Name Priority Date/Time Associated Diagnosis Comments US ABDOMEN FOCUSED REGION STAT 03/01/2025 1:22 PM EDT HEMODIALYSIS INPATIENT Routine 7:34 AM EDT ESRD needing dialysis (CMS/[facility]) PROTHROMBIN TIME(PT) / INR Routine 03/01/2025 3:27 AM EDT ANTI XA LEVEL UNFRACTIONATED HEPARIN Routine 03/01/2025 3:27 AM EDT CBC W/O DIFFERENTIAL Routine 03/01/2025 3:27 AM EDT PHOSPHORUS, PLASMA Routine 03/01/2025 3: 27 AM EDT MAGNESIUM, PLASMA Routine 03/01/2025 3:2 7 AM EDT BASIC METABOLIC PANEL, PLASMA Routine 03/01/2025 3:27 AM EDT PROTHROMBIN TIME(PT) / INR Routine 02/28/2025 4:45 PM EDT OXYGEN THERAPY Routine 02/28/2025 8:00 AM EDT PROTHROMBIN TIME(PT) / INR Routine 02/28/2025 3:52 AM EDT ANTI XA LEVEL UNFRACTIONATED HEPARIN Timed 02/28/2025 3:52 AM EDT CBC W/O DIFFERENTIAL Routine 02/28/2025 3:52 AM EDT PHOSPHORUS, PLASMA Routine 02/28/2025 3: 52 AM EDT MAGNESIUM, PLASMA Routine 02/28/2025 3:5 2 AM EDT BASIC METABOLIC PANEL, PLASMA Routine 02/28/2025 3:52 AM EDT OXYGEN THERAPY Routine 02/27/2025 8:00 PM EDT HEMODIALYSIS INPATIENT Routine 8:50 AM EDT OXYGEN THERAPY Routine 02/27/2025 8:00 AM EDT PROTHROMBIN TIME(PT) / INR Routine 02/27/2025 3:11 AM EDT ANTI XA LEVEL UNFRACTIONATED HEPARIN Timed 02/27/2025 3:11 AM EDT CBC W/O DIFFERENTIAL Routine 02/27/2025 3:11 AM EDT PHOSPHORUS, PLASMA Routine 02/27/2025 3: 11 AM EDT MAGNESIUM, PLASMA Routine 02/27/2025 3:1 1 AM EDT BASIC METABOLIC PANEL, PLASMA Routine 02/27/2025 3:11 AM EDT OXYGEN THERAPY Routine 02/26/2025 8:00 PM EDT ANTI XA LEVEL UNFRACTIONATED HEPARIN Pending Discharge 02/26/2025 8:46 AM EDT OXYGEN THERAPY Routine 02/26/2025 8:00 AM EDT PROTHROMBIN TIME(PT) / INR Routine 02/26/2025 1:59 AM EDT ANTI XA LEVEL UNFRACTIONATED HEPARIN Routine 02/26/2025 1:59 AM EDT CBC W/O DIFFERENTIAL Routine 02/26/2025 1:59 AM EDT PHOSPHORUS, PLASMA Routine 02/26/2025 1: 59 AM EDT MAGNESIUM, PLASMA Routine 02/26/2025 1:5 9 AM EDT BASIC METABOLIC PANEL, PLASMA Routine 02/26/2025 1:59 AM EDT OXYGEN THERAPY Routine 02/25/2025 8:00 PM EDT ANTI XA LEVEL UNFRACTIONATED HEPARIN Routine 02/25/2025 6:57 PM EDT OXYGEN THERAPY Routine 02/25/2025 8:00 AM EDT ANTI XA LEVEL UNFRACTIONATED HEPARIN Routine 02/25/2025 6:08 AM EDT EXTRA TUBE LAVENDER TOP Routine 02/25/2025 4:45 AM EDT EXTRA TUBES Routine 02/25/2025 4:45 AM EDT PROTHROMBIN TIME(PT) / INR Routine 02/25/2025 4:09 AM EDT CBC W/O DIFFERENTIAL Routine 02/25/2025 4:09 AM EDT PHOSPHORUS, PLASMA Routine 02/25/2025 4: 09 AM EDT MAGNESIUM, PLASMA Routine 02/25/2025 4:0 9 AM EDT BASIC METABOLIC PANEL, PLASMA Routine 02/25/2025 4:09 AM EDT OXYGEN THERAPY Routine 02/24/2025 8:00 PM EDT PHOSPHORUS, PLASMA Routine 02/24/2025 6: 49 PM EDT MAGNESIUM, PLASMA Routine 02/24/2025 6:4 9 PM EDT BASIC METABOLIC PANEL, PLASMA Routine 02/24/2025 6:49 PM EDT HEPATITIS B SURFACE ANTIBODY, QUANTITATIVE Routine 02/24/2025 3:55 PM EDT HEPATITIS B SURFACE ANTIGEN Routine 02/24/2025 3:55 PM EDT ANTI XA LEVEL UNFRACTIONATED HEPARIN Timed 02/24/2025 3:55 PM EDT [facility] DIALYSIS ULTRAFILTRATION ORDER Routine 02/24/2025 1:21 PM EDT ECHO, ADULT TRANSTHORACIC COMPLETE STAT 02/24/2025 10:25 AM EDT OXYGEN THERAPY Routine 02/24/2025 8:00 AM EDT PROTHROMBIN TIME(PT) / INR Add-On 02/24/2025 7:27 AM EDT ANTI XA LEVEL UNFRACTIONATED HEPARIN Timed 02/24/2025 7:27 AM EDT CBC W/O DIFFERENTIAL Routine 02/24/2025 7:27 AM EDT PHOSPHORUS, PLASMA Routine 02/24/2025 7: 27 AM EDT MAGNESIUM, PLASMA Routine 02/24/2025 7:2 7 AM EDT BASIC METABOLIC PANEL, PLASMA Routine 02/24/2025 7:27 AM EDT ANTI XA LEVEL UNFRACTIONATED HEPARIN Timed 02/24/2025 12:55 AM EDT OXYGEN THERAPY Routine 02/23/2025 8:00 PM EDT PROTHROMBIN TIME(PT) / INR STAT 02/23/2025 7:28 PM EDT ANTI XA LEVEL UNFRACTIONATED HEPARIN Timed 02/23/2025 7:28 PM EDT CBC W/O DIFFERENTIAL STAT 02/23/2025 7:28 PM EDT PHOSPHORUS, PLASMA Routine 02/23/2025 7: 28 PM EDT MAGNESIUM, PLASMA Routine 02/23/2025 7:2 8 PM EDT BASIC METABOLIC PANEL, PLASMA Routine 02/23/2025 7:28 PM EDT HEMODIALYSIS INPATIENT Routine 3:07 PM EDT PROTHROMBIN TIME(PT) / INR STAT 02/23/2025 2:10 PM EDT OXYGEN THERAPY Routine 02/23/2025 1:11 PM EDT OXYGEN THERAPY Routine 02/23/2025 1:11 PM EDT OXYGEN THERAPY Routine 02/23/2025 1:11 PM EDT XR CHEST 2 VIEWS STAT 02/23/2025 10:44 AM EDT PROCALCITONIN, PLASMA STAT 02/23/2025 10:15 AM EDT N-TERMINAL PROBNP, PLASMA STAT 02/23/2025 10:15 AM EDT CBC WITH AUTO DIFFERENTIAL STAT 02/23/2025 10:15 AM EDT PHOSPHORUS, PLASMA STAT 02/23/2025 10:15 AM EDT MAGNESIUM, PLASMA STAT 02/23/2025 10:15 AM EDT BLOOD GAS PANEL, VENOUS STAT 02/23/2025 10:15 AM EDT COMPREHENSIVE METABOLIC PANEL, PLASMA STAT 02/23/2025 10:15 AM EDT ECG ADULT STAT 02/23/2025 7:56 AM EDT [facility] ED POCUS PROCDOC Routine 02/23/2025 7:42 AM EDT documented in this encounter Results * US Abdomen Focused Region Other (03/01/2025 1:22 PM EDT) Anatomical Region Laterality Modality Abdomen Ultrasound Impressions 03/01/2025 5:22 PM EDT Minimal ascites is seen in the right abdomen. CRITICAL RESULT: No. COMMUNICATION: Per this written report. By electronically signing this report, I, the attending physician, attest that I have personally reviewed the images/data for the above examination(s) and agree with the final edited report. Drafted by Kishore Reyes MD on 03/01/2025 2:29 PM Final report signed by Renetta Rodriguez MD on 03/01/2025 5:22 PM Narrative 03/01/2025 5:22 PM EDT CLINICAL INDICATION: ascites TECHNIQUE: Multiplanar static and cine salamanca scale ultrasound images of the abdomen were obtained, accompanied by selective color Doppler ultrasound images. COMPARISON: CT abdomen and pelvis 02/02/2025 FINDINGS: Grayscale: Free Fluid: Minimal volume ascites is seen in the right flank region and right lower quadrant. The left ovary is incidentally visualized in the left lower quadrant. Procedure Note Renetta Rodriguez MD - 03/01/2025 CLINICAL INDICATION: ascites TECHNIQUE: Multiplanar static and cine salamanca scale ultrasound images of the abdomenwere obtained, accompanied by selective color Doppler ultrasound images. COMPARISON: CT abdomen and pelvis 02/02/2025 FINDINGS: Grayscale: Free Fluid: Minimal volume ascites is seen in the right flank region andright lower quadrant. The left ovary is incidentally visualized in theleft lower quadrant. IMPRESSION: Minimal ascites is seen in the right abdomen. CRITICAL RESULT: No. COMMUNICATION: Per this written report. By electronically signing this report, I, the attending physician, attestthat I have personally reviewed the images/data for the aboveexamination(s) and agree with the final edited report. Drafted by Kishore Reyes MD on 03/01/2025 2:29 PM Final report signed by Renetta Rodriguez MD on 03/01/2025 5:22 PM us Jocy Kennedy APRN, DNP IMG US PROCEDURES Final Re sult * (ABNORMAL) Prothrombin Time/INR (03/01/2025 3:27 AM EDT) Prothrombin Time 34.8(H) 12.0 - 14.3 sec LAB COAGULATION METHOD 03/01/2025 3:49 AM EDT [facility] INR 3.4(H) 0.9 - 1.1 LAB COAGULATION METHOD 03/01/2025 3:49 AM EDT [facility] Blood Venous blood specimen / Unknown Venipuncture / Unknown 03/01/2025 3:27 AM EDT 03/01/2025 3:31 AM EDT Narrative [facility] - 03/01/2025 3:49 AM EDT OPTIMAL INR RANGES FOR PATIENT ON ORAL ANTICOAGULANT THERAPY Prevention of venous thromboembolism INR 2.0 to 3.0 In patients with heart disease: Atrial fibrillation INR 2.0 to 3.0 Valvular heart disease INR 2.0 to 3.0 Tissue heart valves INR 2.0 to 3.0 Mechanical prosthetic valves INR 2.5 to 3.5 Prevention of recurrent IA INR 2.5 to 3.5 us Ro Toro APRN, DNP LAB BLOOD ORDERABLES Fi nal Result [facility] [address] [place] [address] * (ABNORMAL) CBC W/O Differential (03/01/2025 3:27 AM EDT) WBC Count 5.65 3.70 - 10.30 10*3/uL LAB HEMATOLOGY METHOD 03/01/2025 3:39 AM EDT [facility] RBC Count 3.41(L) 3.90 - 5.20 10*6/uL LAB HEMATOLOGY METHOD 03/01/2025 3:39 AM EDT [facility] HGB 10.1(L) 11.2 - 15.7 g/dL LAB HEMATOLOGY METHOD 03/01/2025 3:39 AM EDT [facility] HCT 32.6(L) 34.0 - 45.0 % LAB HEMATOLOGY METHOD 03/01/2025 3:39 AM EDT [facility] Platelet Count 166 155 - 369 10*3/uL LAB HEMATOLOGY METHOD 03/01/2025 3:39 AM EDT [facility] MCV 96 79 - 98 fL LAB HEMATOLOGY METHOD 03/01/2025 3:39 AM EDT [facility] MCH 29.6 26.0 - 32.0 pg LAB HEMATOLOGY METHOD 03/01/2025 3:39 AM EDT [facility] MCHC 31.0 30.7 - 35.5 g/dL LAB HEMATOLOGY METHOD 03/01/2025 3:39 AM EDT [facility] RDW 17.7(H) 11.5 - 14.5 % LAB HEMATOLOGY METHOD 03/01/2025 3:39 AM EDT [facility] MPV 11.8 8.8 - 12.5 fL LAB HEMATOLOGY METHOD 03/01/2025 3:39 AM EDT [facility] nRBC 0.0 <=0.0 per 100 WBCs LAB HEMATOLOGY METHOD 03/01/2025 3:39 AM EDT [facility] Blood Venous blood specimen / Unknown Venipuncture / Unknown 03/01/2025 3:27 AM EDT 03/01/2025 3:31 AM EDT us Ro Toro NET APPLICATION ARCHITECT, DNP LAB BLOOD ORDERABLES Fi nal Result [facility] [address] [place] [address] * (ABNORMAL) Phosphorus (03/01/2025 3:27 AM EDT) Phosphorus, Plasma 5.2(H) 2.5 - 4.5 mg/dL 03/01/2025 4:00 AM EDT [facility] Blood Venous blood specimen / Unknown Venipuncture / Unknown 03/01/2025 3:27 AM EDT 03/01/2025 3:31 AM EDT us Ro Toro APRN, DNP LAB BLOOD ORDERABLES Fi nal Result Performing Organization Address City/[facility] Co de Phone Number [facility] [address] [place] [address] * Magnesium (03/01/2025 3:27 AM EDT) Magnesium, Plasma 1.9 1.9 - 2.4 mg/dL 03/01/2025 4:00 AM EDT [facility] Blood Venous blood specimen / Unknown Venipuncture / Unknown 03/01/2025 3:27 AM EDT 03/01/2025 3:31 AM EDT us Ro Toro APRN, DNP LAB BLOOD ORDERABLES Fi nal Result Performing Organization Address [facility] de Phone Number [facility] [address] [place] [address] * (ABNORMAL) Basic metabolic panel (03/01/2025 3:27 AM EDT) Glucose, Plasma 103(H) 74 - 99 mg/dL 03/01/2025 4:00 AM EDT [facility] BUN, Plasma 41(H) 7 - 21 mg/dL 03/01/2025 4:00 AM EDT [facility] Creatinine, Plasma 3.84(H) 0.60 - 1.10 mg/dL 03/01/2025 4:00 AM EDT [facility] BUN/Creatinine Ratio 11 03/01/2025 4:00 AM EDT [facility] Sodium, Plasma 136 136 - 145 mmol/L 03/01/2025 4:00 AM EDT [facility] Potassium, Plasma 4.3 3.6 - 4.9 mmol/L 03/01/2025 4:00 AM EDT [facility] Chloride, Plasma 99 97 - 107 mmol/L 03/01/2025 4:00 AM EDT [facility] CO2, Plasma 22 22 - 29 mmol/L 03/01/2025 4:00 AM EDT [facility] Anion Gap 15 6 - 16 mmol/L 03/01/2025 4:00 AM EDT [facility] Total Calcium, Plasma 9.0 8.9 - 10.2 mg/dL 03/01/2025 4:00 AM EDT [facility] eGFRcr 13.3 mL/min/1.7 3m*2 03/01/2025 4:00 AM EDT [facility] Comment:Reported eGFRcr in m L/min/1.73m2 is based the CKD-EPI 2020 equation that does not use a race coefficient. Blood Venous blood specimen / Unknown Venipuncture / Unknown 03/01/2025 3:27 AM EDT 03/01/2025 3:31 AM EDT us Ro Toro NET APPLICATION ARCHITECT, DNP LAB BLOOD ORDERABLES Fi nal Result [facility] [address] [place] [address] * Anti Xa Level Unfractionated Heparin (03/01/2025 3:27 AM EDT) Anti Xa Level Unfractionated Heparin 0.36 <1.00 IU/mL LAB COAGULATION METHOD 03/01/2025 3:49 AM EDT [facility] Blood Venous blood specimen / Unknown Venipuncture / Unknown 03/01/2025 3:27 AM EDT 03/01/2025 3:31 AM EDT Narrative [facility] [facility] 03/01/2025 3:49 AM EDT Therapeutic Range: UFH Full Dose and ACS/IA protocols*: 0.30 - 0.70 IU/mL UFH Low Dose protocol*: 0.25 - 0.50 IU/mL UFH prophylaxis: Not established us Nancy Brambila MD LAB BLOOD ORDERABLES Final Result [facility] [address] [place] [address] * (ABNORMAL) Protime-INR (02/28/2025 4:45 PM EDT) Prothrombin Time 28.7(H) 12.0 - 14.3 sec LAB COAGULATION METHOD 02/28/2025 5:38 PM EDT [facility] INR 2.7(H) 0.9 - 1.1 LAB COAGULATION METHOD 02/28/2025 5:38 PM EDT [facility] Blood Venous blood specimen / Unknown Venipuncture / Unknown 02/28/2025 4:45 PM EDT 02/28/2025 5:15 PM EDT Narrative [facility] - 02/28/2025 5:38 PM EDT OPTIMAL INR RANGES FOR PATIENT ON ORAL ANTICOAGULANT THERAPY Prevention of venous thromboembolism INR 2.0 to 3.0 In patients with heart disease: Atrial fibrillation INR 2.0 to 3.0 Valvular heart disease INR 2.0 to 3.0 Tissue heart valves INR 2.0 to 3.0 Mechanical prosthetic valves INR 2.5 to 3.5 Prevention of recurrent IA INR 2.5 to 3.5 Jocy Kennedy APRN, DNP LAB BLOOD ORDERABLES Final Result Performing Organization Address City/[facility]/ZIP Co de Phone Number [facility] [address] [place] [address] * (ABNORMAL) Prothrombin Time/INR (02/28/2025 3:52 AM EDT) Prothrombin Time 25.1(H) 12.0 - 14.3 sec LAB COAGULATION METHOD 02/28/2025 4:29 AM EDT [facility] INR 2.3(H) 0.9 - 1.1 LAB COAGULATION METHOD 02/28/2025 4:29 AM EDT [facility] Blood Venous blood specimen / Unknown Venipuncture / Unknown 02/28/2025 3:52 AM EDT 02/28/2025 4:05 AM EDT Narrative [facility] - 02/28/2025 4:29 AM EDT OPTIMAL INR RANGES FOR PATIENT ON ORAL ANTICOAGULANT THERAPY Prevention of venous thromboembolism INR 2.0 to 3.0 In patients with heart disease: Atrial fibrillation INR 2.0 to 3.0 Valvular heart disease INR 2.0 to 3.0 Tissue heart valves INR 2.0 to 3.0 Mechanical prosthetic valves INR 2.5 to 3.5 Prevention of recurrent IA INR 2.5 to 3.5 us Ro Toro NET APPLICATION ARCHITECT, DNP LAB BLOOD ORDERABLES Fi nal Result [facility] [address] [place] [address] * (ABNORMAL) CBC W/O Differential (02/28/2025 3:52 AM EDT) Pathologist [facility] WBC Count 6.26 3.70 - 10.30 10*3/uL LAB HEMATOLOGY METHOD 02/28/2025 4:17 AM EDT [facility] RBC Count 3.44(L) 3.90 - 5.20 10*6/uL LAB HEMATOLOGY METHOD 02/28/2025 4:17 AM EDT [facility] HGB 10.2(L) 11.2 - 15.7 g/dL LAB HEMATOLOGY METHOD 02/28/2025 4:17 AM EDT [facility] HCT 32.5(L) 34.0 - 45.0 % LAB HEMATOLOGY METHOD 02/28/2025 4:17 AM EDT [facility] Platelet Count 171 155 - 369 10*3/uL LAB HEMATOLOGY METHOD 02/28/2025 4:17 AM EDT [facility] MCV 95 79 - 98 fL LAB HEMATOLOGY METHOD 02/28/2025 4:17 AM EDT [facility] MCH 29.7 26.0 - 32.0 pg LAB HEMATOLOGY METHOD 02/28/2025 4:17 AM EDT [facility] MCHC 31.4 30.7 - 35.5 g/dL LAB HEMATOLOGY METHOD 02/28/2025 4:17 AM EDT [facility] RDW 18.0(H) 11.5 - 14.5 % LAB HEMATOLOGY METHOD 02/28/2025 4:17 AM EDT [facility] MPV 12.6(H) 8.8 - 12.5 fL LAB HEMATOLOGY METHOD 02/28/2025 4:17 AM EDT [facility] nRBC 0.0 <=0.0 per 100 WBCs LAB HEMATOLOGY METHOD 02/28/2025 4:17 AM EDT [facility] Blood Venous blood specimen / Unknown Venipuncture / Unknown 02/28/2025 3:52 AM EDT 02/28/2025 4:08 AM EDT us Ro Toro APRN, LOLY LAB BLOOD ORDERABLES Fi nal Result Performing Organization Address City/[facility]/ZIP Co de Phone Number [facility] [address] [place] [address] * Phosphorus (02/28/2025 3:52 AM EDT) Phosphorus, Plasma 4.3 2.5 - 4.5 mg/dL 02/28/2025 4:38 AM EDT [facility] Blood Venous blood specimen / Unknown Venipuncture / Unknown 02/28/2025 3:52 AM EDT 02/28/2025 4:05 AM EDT us Ro Toro APRN, LOLY LAB BLOOD ORDERABLES Fi nal Result Performing Organization Address City/[facility]/[place] [address] * (ABNORMAL) Magnesium (02/28/2025 3:52 AM EDT) Magnesium, Plasma 1.8(L) 1.9 - 2.4 mg/dL 02/28/2025 4:38 AM EDT [facility] Blood Venous blood specimen / Unknown Venipuncture / Unknown 02/28/2025 3:52 AM EDT 02/28/2025 4:05 AM EDT us Ro Toro APRN, DNP LAB BLOOD ORDERABLES Fi nal Result Performing Organization Address City/[facility]/ZIP Co de Phone Number [facility] [address] [place] [address] * (ABNORMAL) Basic metabolic panel (02/28/2025 3:52 AM EDT) Glucose, Plasma 110(H) 74 - 99 mg/dL 02/28/2025 4:38 AM EDT [facility] BUN, Plasma 34(H) 7 - 21 mg/dL 02/28/2025 4:38 AM EDT [facility] Creatinine, Plasma 3.10(H) 0.60 - 1.10 mg/dL 02/28/2025 4:38 AM EDT [facility] BUN/Creatinine Ratio 11 02/28/2025 4:38 AM EDT [facility] Sodium, Plasma 134(L) 136 - 145 mmol/L 02/28/2025 4:38 AM EDT [facility] Potassium, Plasma 3.8 3.6 - 4.9 mmol/L 02/28/2025 4:38 AM EDT [facility] Chloride, Plasma 96(L) 97 - 107 mmol/L 02/28/2025 4:38 AM EDT [facility] CO2, Plasma 24 22 - 29 mmol/L 02/28/2025 4:38 AM EDT [facility] Anion Gap 14 6 - 16 mmol/L 02/28/2025 4:38 AM EDT [facility] Total Calcium, Plasma 8.5(L) 8.9 - 10.2 mg/dL 02/28/2025 4:38 AM EDT [facility] eGFRcr 17.3 mL/min/1.7 3m*2 02/28/2025 4:38 AM EDT [facility] Comment:Reported eGFRcr in m L/min/1.73m2 is based the CKD-EPI 2020 equation that does not use a race coefficient. Blood Venous blood specimen / Unknown Venipuncture / Unknown 02/28/2025 3:52 AM EDT 02/28/2025 4:05 AM EDT us Ro Toro NET APPLICATION ARCHITECT, DNP LAB BLOOD ORDERABLES Fi nal Result [facility] [address] [place] [address] * Anti Xa Level Unfractionated Heparin - Heparin Drip Titration (02/28/2025 3:52 AM EDT) Anti Xa Level Unfractionated Heparin 0.32 <1.00 IU/mL LAB COAGULATION METHOD 02/28/2025 4:29 AM EDT [facility] Blood Venous blood specimen / Unknown Venipuncture / Unknown 02/28/2025 3:52 AM EDT 02/28/2025 4:05 AM EDT Narrative [facility] - 02/28/2025 4:29 AM EDT Therapeutic Range: UFH Full Dose and ACS/IA protocols*: 0.30 - 0.70 IU/mL UFH Low Dose protocol*: 0.25 - 0.50 IU/mL UFH prophylaxis: Not established us Oneal Green MD LAB BLOOD ORDERABLES Final Res ult Performing Organization Address [facility] de Phone Number [facility] [address] [place] [address] * Anti Xa Level Unfractionated Heparin - Heparin Drip Titration (02/27/2025 3:11 AM EDT) Anti Xa Level Unfractionated Heparin 0.35 <1.00 IU/mL LAB COAGULATION METHOD 02/27/2025 3:44 AM EDT [facility] Blood Venous blood specimen / Unknown Venipuncture / Unknown 02/27/2025 3:11 AM EDT 02/27/2025 3:17 AM EDT Narrative [facility] - 02/27/2025 3:44 AM EDT Therapeutic Range: UFH Full Dose and ACS/IA protocols*: 0.30 - 0.70 IU/mL UFH Low Dose protocol*: 0.25 - 0.50 IU/mL UFH prophylaxis: Not established us Oneal Green MD LAB BLOOD ORDERABLES Final Res ult Performing Organization Address City/[facility]/ZIP Co de Phone Number [facility] [address] [place] [address] * (ABNORMAL) Prothrombin Time/INR (02/27/2025 3:11 AM EDT) Prothrombin Time 23.8(H) 12.0 - 14.3 sec LAB COAGULATION METHOD 02/27/2025 3:44 AM EDT [facility] INR 2.1(H) 0.9 - 1.1 LAB COAGULATION METHOD 02/27/2025 3:44 AM EDT [facility] Blood Venous blood specimen / Unknown Venipuncture / Unknown 02/27/2025 3:11 AM EDT 02/27/2025 3:17 AM EDT Narrative [facility] - 02/27/2025 3:44 AM EDT OPTIMAL INR RANGES FOR PATIENT ON ORAL ANTICOAGULANT THERAPY Prevention of venous thromboembolism INR 2.0 to 3.0 In patients with heart disease: Atrial fibrillation INR 2.0 to 3.0 Valvular heart disease INR 2.0 to 3.0 Tissue heart valves INR 2.0 to 3.0 Mechanical prosthetic valves INR 2.5 to 3.5 Prevention of recurrent IA INR 2.5 to 3.5 us Ro Toro NET APPLICATION ARCHITECT, DNP LAB BLOOD ORDERABLES Fi nal Result [facility] [address] [place] [address] * (ABNORMAL) CBC W/O Differential (02/27/2025 3:11 AM EDT) Pathologist [facility] WBC Count 6.63 3.70 - 10.30 10*3/uL LAB HEMATOLOGY METHOD 02/27/2025 3:30 AM EDT [facility] RBC Count 3.51(L) 3.90 - 5.20 10*6/uL LAB HEMATOLOGY METHOD 02/27/2025 3:30 AM EDT [facility] HGB 10.4(L) 11.2 - 15.7 g/dL LAB HEMATOLOGY METHOD 02/27/2025 3:30 AM EDT [facility] HCT 33.4(L) 34.0 - 45.0 % LAB HEMATOLOGY METHOD 02/27/2025 3:30 AM EDT [facility] Platelet Count 166 155 - 369 10*3/uL LAB HEMATOLOGY METHOD 02/27/2025 3:30 AM EDT [facility] MCV 95 79 - 98 fL LAB HEMATOLOGY METHOD 02/27/2025 3:30 AM EDT [facility] MCH 29.6 26.0 - 32.0 pg LAB HEMATOLOGY METHOD 02/27/2025 3:30 AM EDT [facility] MCHC 31.1 30.7 - 35.5 g/dL LAB HEMATOLOGY METHOD 02/27/2025 3:30 AM EDT [facility] RDW 17.9(H) 11.5 - 14.5 % LAB HEMATOLOGY METHOD 02/27/2025 3:30 AM EDT [facility] MPV 12.7(H) 8.8 - 12.5 fL LAB HEMATOLOGY METHOD 02/27/2025 3:30 AM EDT [facility] nRBC 0.0 <=0.0 per 100 WBCs LAB HEMATOLOGY METHOD 02/27/2025 3:30 AM EDT [facility] Blood Venous blood specimen / Unknown Venipuncture / Unknown 02/27/2025 3:11 AM EDT 02/27/2025 3:17 AM EDT us Ro Toro APRN, DNP LAB BLOOD ORDERABLES Fi nal Result Performing Organization Address City/[facility]/ZIP Co de Phone Number [facility] [address] [place] [address] * (ABNORMAL) Phosphorus (02/27/2025 3:11 AM EDT) Phosphorus, Plasma 6.6(H) 2.5 - 4.5 mg/dL 02/27/2025 3:46 AM EDT [facility] Blood Venous blood specimen / Unknown Venipuncture / Unknown 02/27/2025 3:11 AM EDT 02/27/2025 3:17 AM EDT us Ro Toro APRN, DNP LAB BLOOD ORDERABLES Fi nal Result [facility] [address] [place] [address] * Magnesium (02/27/2025 3:11 AM EDT) Magnesium, Plasma 2.1 1.9 - 2.4 mg/dL 02/27/2025 3:46 AM EDT [facility] Blood Venous blood specimen / Unknown Venipuncture / Unknown 02/27/2025 3:11 AM EDT 02/27/2025 3:17 AM EDT us Ro Toro NET APPLICATION ARCHITECT, DNP LAB BLOOD ORDERABLES Fi nal Result [facility] [address] [place] [address] * (ABNORMAL) Basic metabolic panel (02/27/2025 3:11 AM EDT) Glucose, Plasma 109(H) 74 - 99 mg/dL 02/27/2025 3:46 AM EDT [facility] BUN, Plasma 53(H) 7 - 21 mg/dL 02/27/2025 3:46 AM EDT [facility] Creatinine, Plasma 4.29(H) 0.60 - 1.10 mg/dL 02/27/2025 3:46 AM EDT [facility] BUN/Creatinine Ratio 12 02/27/2025 3:46 AM EDT [facility] Sodium, Plasma 136 136 - 145 mmol/L 02/27/2025 3:46 AM EDT [facility] Potassium, Plasma 4.4 3.6 - 4.9 mmol/L 02/27/2025 3:46 AM EDT [facility] Chloride, Plasma 99 97 - 107 mmol/L 02/27/2025 3:46 AM EDT [facility] CO2, Plasma 19(L) 22 - 29 mmol/L 02/27/2025 3:46 AM EDT [facility] Anion Gap 18(H) 6 - 16 mmol/L 02/27/2025 3:46 AM EDT [facility] Total Calcium, Plasma 8.9 8.9 - 10.2 mg/dL 02/27/2025 3:46 AM EDT [facility] eGFRcr 11.7 mL/min/1.7 3m*2 02/27/2025 3:46 AM EDT [facility] Comment:Reported eGFRcr in m L/min/1.73m2 is based the CKD-EPI 2020 equation that does not use a race coefficient. Blood Venous blood specimen / Unknown Venipuncture / Unknown 02/27/2025 3:11 AM EDT 02/27/2025 3:17 AM EDT us Ro Toro NET APPLICATION ARCHITECT, DNP LAB BLOOD ORDERABLES Fi nal Result Performing Organization Address City/[facility]/ZIP Co de Phone Number [facility] [address] [place] [address] * Anti Xa Level Unfractionated Heparin - Heparin Drip Titration (02/26/2025 8:46 AM EDT) Anti Xa Level Unfractionated Heparin 0.44 <1.00 IU/mL LAB COAGULATION METHOD 02/26/2025 9:23 AM EDT [facility] Blood Venous blood specimen / Unknown Venipuncture / Unknown 02/26/2025 8:46 AM EDT 02/26/2025 9:01 AM EDT Narrative [facility] - 02/26/2025 9:23 AM EDT Therapeutic Range: UFH Full Dose and ACS/IA protocols*: 0.30 - 0.70 IU/mL UFH Low Dose protocol*: 0.25 - 0.50 IU/mL UFH prophylaxis: Not established us Oneal Green MD LAB BLOOD ORDERABLES Final Res ult [facility] [address] [place] [address] * Anti Xa Level Unfractionated Heparin (02/26/2025 1:59 AM EDT) Anti Xa Level Unfractionated Heparin 0.33 <1.00 IU/mL LAB COAGULATION METHOD 02/26/2025 2:21 AM EDT [facility] Blood Venous blood specimen / Unknown Venipuncture / Unknown 02/26/2025 1:59 AM EDT 02/26/2025 2:03 AM EDT Narrative [facility] - 02/26/2025 2:21 AM EDT Therapeutic Range: UFH Full Dose and ACS/IA protocols*: 0.30 - 0.70 IU/mL UFH Low Dose protocol*: 0.25 - 0.50 IU/mL UFH prophylaxis: Not established us Oneal Green MD LAB BLOOD ORDERABLES Final Res ult Performing Organization Address [facility] Co de Phone Number [facility] [address] [place] [address] * (ABNORMAL) Prothrombin Time/INR (02/26/2025 1:59 AM EDT) Prothrombin Time 20.9(H) 12.0 - 14.3 sec LAB COAGULATION METHOD 02/26/2025 2:21 AM EDT [facility] INR 1.8(H) 0.9 - 1.1 LAB COAGULATION METHOD 02/26/2025 2:21 AM EDT [facility] Blood Venous blood specimen / Unknown Venipuncture / Unknown 02/26/2025 1:59 AM EDT 02/26/2025 2:03 AM EDT Narrative [facility] - 02/26/2025 2:21 AM EDT OPTIMAL INR RANGES FOR PATIENT ON ORAL ANTICOAGULANT THERAPY Prevention of venous thromboembolism INR 2.0 to 3.0 In patients with heart disease: Atrial fibrillation INR 2.0 to 3.0 Valvular heart disease INR 2.0 to 3.0 Tissue heart valves INR 2.0 to 3.0 Mechanical prosthetic valves INR 2.5 to 3.5 Prevention of recurrent IA INR 2.5 to 3.5 us Ro Toro NET APPLICATION ARCHITECT, DNP LAB BLOOD ORDERABLES Fi nal Result Performing Organization Address [facility] Co de Phone Number [facility] [address] [place] [address] * (ABNORMAL) CBC W/O Differential (02/26/2025 1:59 AM EDT) WBC Count 7.41 3.70 - 10.30 10*3/uL LAB HEMATOLOGY METHOD 02/26/2025 2:11 AM EDT [facility] RBC Count 3.32(L) 3.90 - 5.20 10*6/uL LAB HEMATOLOGY METHOD 02/26/2025 2:11 AM EDT [facility] HGB 9.9(L) 11.2 - 15.7 g/dL LAB HEMATOLOGY METHOD 02/26/2025 2:11 AM EDT [facility] HCT 31.2(L) 34.0 - 45.0 % LAB HEMATOLOGY METHOD 02/26/2025 2:11 AM EDT [facility] Platelet Count 145(L) 155 - 369 10*3/uL LAB HEMATOLOGY METHOD 02/26/2025 2:11 AM EDT [facility] MCV 94 79 - 98 fL LAB HEMATOLOGY METHOD 02/26/2025 2:11 AM EDT [facility] MCH 29.8 26.0 - 32.0 pg LAB HEMATOLOGY METHOD 02/26/2025 2:11 AM EDT [facility] MCHC 31.7 30.7 - 35.5 g/dL LAB HEMATOLOGY METHOD 02/26/2025 2:11 AM EDT [facility] RDW 18.1(H) 11.5 - 14.5 % LAB HEMATOLOGY METHOD 02/26/2025 2:11 AM EDT [facility] MPV 12.2 8.8 - 12.5 fL LAB HEMATOLOGY METHOD 02/26/2025 2:11 AM EDT [facility] nRBC 0.0 <=0.0 per 100 WBCs LAB HEMATOLOGY METHOD 02/26/2025 2:11 AM EDT [facility] Blood Venous blood specimen / Unknown Venipuncture / Unknown 02/26/2025 1:59 AM EDT 02/26/2025 2:03 AM EDT us Ro Toro NET APPLICATION ARCHITECT, DNP LAB BLOOD ORDERABLES Fi nal Result [facility] [address] [place] [address] * (ABNORMAL) Phosphorus (02/26/2025 1:59 AM EDT) Pathologist [facility] Phosphorus, Plasma 5.4(H) 2.5 - 4.5 mg/dL 02/26/2025 2:31 AM EDT [facility] Blood Venous blood specimen / Unknown Venipuncture / Unknown 02/26/2025 1:59 AM EDT 02/26/2025 2:03 AM EDT us Ro Toro APRN, LOLY LAB BLOOD ORDERABLES Fi nal Result Performing Organization Address [facility] Co de Phone Number [facility] [address] [place] [address] * (ABNORMAL) Magnesium (02/26/2025 1:59 AM EDT) Magnesium, Plasma 1.5(L) 1.9 - 2.4 mg/dL 02/26/2025 2:31 AM EDT [facility] Blood Venous blood specimen / Unknown Venipuncture / Unknown 02/26/2025 1:59 AM EDT 02/26/2025 2:03 AM EDT us Ro Toro APRN, LOLY LAB BLOOD ORDERABLES Fi nal Result Performing Organization Address [facility] Phone Number [facility] [address] [place] [address] * (ABNORMAL) Basic metabolic panel (02/26/2025 1:59 AM EDT) Glucose, Plasma 107(H) 74 - 99 mg/dL 02/26/2025 2:31 AM EDT [facility] BUN, Plasma 41(H) 7 - 21 mg/dL 02/26/2025 2:31 AM EDT [facility] Creatinine, Plasma 3.78(H) 0.60 - 1.10 mg/dL 02/26/2025 2:31 AM EDT [facility] BUN/Creatinine Ratio 11 02/26/2025 2:31 AM EDT [facility] Sodium, Plasma 135(L) 136 - 145 mmol/L 02/26/2025 2:31 AM EDT [facility] Potassium, Plasma 4.0 3.6 - 4.9 mmol/L 02/26/2025 2:31 AM EDT [facility] Chloride, Plasma 101 97 - 107 mmol/L 02/26/2025 2:31 AM EDT [facility] CO2, Plasma 19(L) 22 - 29 mmol/L 02/26/2025 2:31 AM EDT [facility] Anion Gap 15 6 - 16 mmol/L 02/26/2025 2:31 AM EDT [facility] Total Calcium, Plasma 8.2(L) 8.9 - 10.2 mg/dL 02/26/2025 2:31 AM EDT [facility] eGFRcr 13.6 mL/min/1.7 3m*2 02/26/2025 2:31 AM EDT [facility] Comment:Reported eGFRcr in m L/min/1.73m2 is based the CKD-EPI 2020 equation that does not use a race coefficient. Blood Venous blood specimen / Unknown Venipuncture / Unknown 02/26/2025 1:59 AM EDT 02/26/2025 2:03 AM EDT us Ro Toro APRN, LOLY LAB BLOOD ORDERABLES Fi nal Result Performing Organization Address [facility] Co de Phone Number [facility] [address] [place] [address] * Anti Xa Level Unfractionated Heparin (02/25/2025 6:57 PM EDT) Anti Xa Level Unfractionated Heparin 0.27 <1.00 IU/mL LAB COAGULATION METHOD 02/25/2025 7:37 PM EDT [facility] Blood Venous blood specimen / Unknown Venipuncture / Unknown 02/25/2025 6:57 PM EDT 02/25/2025 7:05 PM EDT Narrative [facility] - 02/25/2025 7:37 PM EDT Therapeutic Range: UFH Full Dose and ACS/IA protocols*: 0.30 - 0.70 IU/mL UFH Low Dose protocol*: 0.25 - 0.50 IU/mL UFH prophylaxis: Not established us Oneal Green MD LAB BLOOD ORDERABLES Final Res ult Performing Organization Address City/[facility]/ZIP Co de Phone Number [facility] [address] [place] [address] * Anti Xa Level Unfractionated Heparin (02/25/2025 6:08 AM EDT) Anti Xa Level Unfractionated Heparin 0.29 <1.00 IU/mL LAB COAGULATION METHOD 02/25/2025 6:39 AM EDT [facility] Blood Venous blood specimen / Unknown Venipuncture / Unknown 02/25/2025 6:08 AM EDT 02/25/2025 6:14 AM EDT Narrative [facility] - 02/25/2025 6:39 AM EDT Therapeutic Range: UFH Full Dose and ACS/IA protocols*: 0.30 - 0.70 IU/mL UFH Low Dose protocol*: 0.25 - 0.50 IU/mL UFH prophylaxis: Not established us Oneal Green MD LAB BLOOD ORDERABLES Final Res ult Performing Organization Address [facility]/ZIP Co de Phone Number [facility] [address] [place] [address] * Lavender Top (02/25/2025 4:45 AM EDT) Extra Hold for add-ons 02/25/2025 7:01 AM EDT [facility] Comment:Auto resulted. Blood Venous blood specimen / Unknown 02/25/2025 4:45 AM EDT 02/25/2025 4:45 AM EDT us Oneal Green MD LAB BLOOD ORDERABLES Final Res ult [facility] [address] [place] [address] * (ABNORMAL) Protime-INR (02/25/2025 4:09 AM EDT) Prothrombin Time 19.8(H) 12.0 - 14.3 sec LAB COAGULATION METHOD 02/25/2025 5:06 AM EDT [facility] INR 1.6(H) 0.9 - 1.1 LAB COAGULATION METHOD 02/25/2025 5:06 AM EDT [facility] Blood Venous blood specimen / Unknown Venipuncture / Unknown 02/25/2025 4:09 AM EDT 02/25/2025 4:46 AM EDT Narrative [facility] - 02/25/2025 5:06 AM EDT OPTIMAL INR RANGES FOR PATIENT ON ORAL ANTICOAGULANT THERAPY Prevention of venous thromboembolism INR 2.0 to 3.0 In patients with heart disease: Atrial fibrillation INR 2.0 to 3.0 Valvular heart disease INR 2.0 to 3.0 Tissue heart valves INR 2.0 to 3.0 Mechanical prosthetic valves INR 2.5 to 3.5 Prevention of recurrent IA INR 2.5 to 3.5 us Ro Toro NET APPLICATION ARCHITECT, DNP LAB BLOOD ORDERABLES Fi nal Result [facility] [address] [place] [address] * (ABNORMAL) CBC W/O Differential (02/25/2025 4:09 AM EDT) WBC Count 6.69 3.70 - 10.30 10*3/uL LAB HEMATOLOGY METHOD 02/25/2025 4:56 AM EDT [facility] RBC Count 3.41(L) 3.90 - 5.20 10*6/uL LAB HEMATOLOGY METHOD 02/25/2025 4:56 AM EDT [facility] HGB 10.0(L) 11.2 - 15.7 g/dL LAB HEMATOLOGY METHOD 02/25/2025 4:56 AM EDT [facility] HCT 32.7(L) 34.0 - 45.0 % LAB HEMATOLOGY METHOD 02/25/2025 4:56 AM EDT [facility] Platelet Count 134(L) 155 - 369 10*3/uL LAB HEMATOLOGY METHOD 02/25/2025 4:56 AM EDT [facility] MCV 96 79 - 98 fL LAB HEMATOLOGY METHOD 02/25/2025 4:56 AM EDT [facility] MCH 29.3 26.0 - 32.0 pg LAB HEMATOLOGY METHOD 02/25/2025 4:56 AM EDT [facility] MCHC 30.6(L) 30.7 - 35.5 g/dL LAB HEMATOLOGY METHOD 02/25/2025 4:56 AM EDT [facility] RDW 18.2(H) 11.5 - 14.5 % LAB HEMATOLOGY METHOD 02/25/2025 4:56 AM EDT [facility] MPV 12.9(H) 8.8 - 12.5 fL LAB HEMATOLOGY METHOD 02/25/2025 4:56 AM EDT [facility] nRBC 0.0 <=0.0 per 100 WBCs LAB HEMATOLOGY METHOD 02/25/2025 4:56 AM EDT [facility] Blood Venous blood specimen / Unknown Venipuncture / Unknown 02/25/2025 4:09 AM EDT 02/25/2025 4:48 AM EDT us Ro Toro APRN, DNP LAB BLOOD ORDERABLES Fi nal Result Performing Organization Address [facility]/ZIP Co de Phone Number [facility] [address] [place] [address] * Phosphorus (02/25/2025 4:09 AM EDT) Phosphorus, Plasma 4.2 2.5 - 4.5 mg/dL 02/25/2025 5:14 AM EDT [facility] Blood Venous blood specimen / Unknown Venipuncture / Unknown 02/25/2025 4:09 AM EDT 02/25/2025 4:45 AM EDT us Ro Toro APRN, DNP LAB BLOOD ORDERABLES Fi nal Result Performing Organization Address City/[facility]/ZIP Co de Phone Number [facility] [address] [place] [address] * (ABNORMAL) Magnesium (02/25/2025 4:09 AM EDT) Magnesium, Plasma 1.6(L) 1.9 - 2.4 mg/dL 02/25/2025 5:14 AM EDT [facility] Blood Venous blood specimen / Unknown Venipuncture / Unknown 02/25/2025 4:09 AM EDT 02/25/2025 4:45 AM EDT us Ro Toro NET APPLICATION ARCHITECT, DNP LAB BLOOD ORDERABLES Fi nal Result [facility] [address] [place] [address] * (ABNORMAL) Basic metabolic panel (02/25/2025 4:09 AM EDT) Glucose, Plasma 102(H) 74 - 99 mg/dL 02/25/2025 5:13 AM EDT [facility] BUN, Plasma 32(H) 7 - 21 mg/dL 02/25/2025 5:13 AM EDT [facility] Creatinine, Plasma 3.13(H) 0.60 - 1.10 mg/dL 02/25/2025 5:13 AM EDT [facility] BUN/Creatinine Ratio 10 02/25/2025 5:13 AM EDT [facility] Sodium, Plasma 135(L) 136 - 145 mmol/L 02/25/2025 5:13 AM EDT [facility] Potassium, Plasma 3.8 3.6 - 4.9 mmol/L 02/25/2025 5:13 AM EDT [facility] Chloride, Plasma 100 97 - 107 mmol/L 02/25/2025 5:13 AM EDT [facility] CO2, Plasma 21(L) 22 - 29 mmol/L 02/25/2025 5:13 AM EDT [facility] Anion Gap 14 6 - 16 mmol/L 02/25/2025 5:13 AM EDT [facility] Total Calcium, Plasma 8.2(L) 8.9 - 10.2 mg/dL 02/25/2025 5:13 AM EDT [facility] eGFRcr 17.1 mL/min/1.7 3m*2 02/25/2025 5:13 AM EDT [facility] Comment:Reported eGFRcr in m L/min/1.73m2 is based the CKD-EPI 2020 equation that does not use a race coefficient. Blood Venous blood specimen / Unknown Venipuncture / Unknown 02/25/2025 4:09 AM EDT 02/25/2025 4:45 AM EDT us Ro Toro APRN, LOLY LAB BLOOD ORDERABLES Fi nal Result Performing Organization Address City/[facility]/ZIP Co de Phone Number [facility] [address] [place] [address] * Phosphorus (02/24/2025 6:49 PM EDT) Phosphorus, Plasma 3.9 2.5 - 4.5 mg/dL 02/24/2025 7:21 PM EDT [facility] Blood Venous blood specimen / Unknown Venipuncture / Unknown 02/24/2025 6:49 PM EDT 02/24/2025 6:51 PM EDT us Ro Toro APRN, LOLY LAB BLOOD ORDERABLES Fi nal Result Performing Organization Address [facility] Co de Phone Number [facility] [address] [place] [address] * (ABNORMAL) Magnesium (02/24/2025 6:49 PM EDT) [facility] Magnesium, Plasma 1.6(L) 1.9 - 2.4 mg/dL 02/24/2025 7:21 PM EDT [facility] Blood Venous blood specimen / Unknown Venipuncture / Unknown 02/24/2025 6:49 PM EDT 02/24/2025 6:51 PM EDT us Ro Toro APRN, LOLY LAB BLOOD ORDERABLES Fi nal Result Performing Organization Address City/[facility]/ZIP Co de Phone Number [facility] [address] [place] [address] * (ABNORMAL) Basic metabolic panel (02/24/2025 6:49 PM EDT) Glucose, Plasma 131(H) 74 - 99 mg/dL 02/24/2025 7:21 PM EDT [facility] BUN, Plasma 27(H) 7 - 21 mg/dL 02/24/2025 7:21 PM EDT [facility] Creatinine, Plasma 2.67(H) 0.60 - 1.10 mg/dL 02/24/2025 7:21 PM EDT [facility] BUN/Creatinine Ratio 10 02/24/2025 7:21 PM EDT [facility] Sodium, Plasma 135(L) 136 - 145 mmol/L 02/24/2025 7:21 PM EDT [facility] Potassium, Plasma 4.1 3.6 - 4.9 mmol/L 02/24/2025 7:21 PM EDT [facility] Comment:Hemolyzed, result ma y be falsely increased. Chloride, Plasma 100 97 - 107 mmol/L 02/24/2025 7:21 PM EDT [facility] CO2, Plasma 21(L) 22 - 29 mmol/L 02/24/2025 7:21 PM EDT [facility] Anion Gap 14 6 - 16 mmol/L 02/24/2025 7:21 PM EDT [facility] Total Calcium, Plasma 8.0(L) 8.9 - 10.2 mg/dL 02/24/2025 7:21 PM EDT [facility] eGFRcr 20.6 mL/min/1.7 3m*2 02/24/2025 7:21 PM EDT [facility] Comment:Reported eGFRcr in m L/min/1.73m2 is based the CKD-EPI 2020 equation that does not use a race coefficient. Blood Venous blood specimen / Unknown Venipuncture / Unknown 02/24/2025 6:49 PM EDT 02/24/2025 6:51 PM EDT us Ro Toro NET APPLICATION ARCHITECT, DNP LAB BLOOD ORDERABLES Fi nal Result [facility] [address] [place] [address] * (ABNORMAL) Hepatitis B Surface Antibody, Quantitative (02/24/2025 3:55 PM EDT) Hepatitis B Surface Antibody, Quantitative 238.80(H) NonReacti ve: <8, Grayzone: 8 - <12, Reactive: >= 12 mIU/mL 02/24/2025 5:32 PM EDT [facility] Comment: Reactive. Individual is considered immune to HBV infection. Blood Venous blood specimen / Unknown Venipuncture / Unknown 02/24/2025 3:55 PM EDT 02/24/2025 4:24 PM EDT us Oneal Green MD LAB BLOOD ORDERABLES Final Res ult Performing Organization Address [facility]/ZIP Co de Phone Number [facility] [address] [place] [address] * Hepatitis B Surface Antigen (02/24/2025 3:55 PM EDT) Hepatitis B Surf Antigen Negative Negative 02/24/2025 6:34 PM EDT [facility] Blood Venous blood specimen / Unknown Venipuncture / Unknown 02/24/2025 3:55 PM EDT 02/24/2025 4:24 PM EDT us Oneal Green MD LAB BLOOD ORDERABLES Final Res ult Performing Organization Address [facility] de Phone Number [facility] [address] [place] [address] * Anti Xa Level Unfractionated Heparin - Heparin Drip Titration (02/24/2025 3:55 PM EDT) Anti Xa Level Unfractionated Heparin 0.33 <1.00 IU/mL LAB COAGULATION METHOD 02/24/2025 4:53 PM EDT [facility] Blood Venous blood specimen / Unknown Venipuncture / Unknown 02/24/2025 3:55 PM EDT 02/24/2025 4:24 PM EDT Narrative [facility] - 02/24/2025 4:53 PM EDT Therapeutic Range: UFH Full Dose and ACS/IA protocols*: 0.30 - 0.70 IU/mL UFH Low Dose protocol*: 0.25 - 0.50 IU/mL UFH prophylaxis: Not established us Oneal Green MD LAB BLOOD ORDERABLES Final Res ult Performing Organization Address [facility] Co de Phone Number [facility] [address] [place] [address] * ECHO, ADULT TRANSTHORACIC COMPLETE (02/24/2025 10:25 AM EDT) BSA 1.89 m2 LOGAN ISCV Height 167.6 LOGAN ISCV Weight 78.9 LOGAN ISCV TR Vmax 298.0 cm/s LOGAN ISCV TR Max PG 36 mmHG LOGAN ISCV MV V2 VTI 29.0 cm LOGAN ISCV MV MG 4 mmHg LOGAN ISCV MV V2 max 191.3 cm/s LOGAN ISCV MV max PG 15 mmHg LOGAN ISCV RVSP 51 mmHg LOGAN ISCV RAP systole 15 mmHg LOGAN ISCV LV EDV(MOD-4ch) 304 mL LOGAN ISCV LV ESV(MOD4ch) 252 mL LOGAN ISCV EF(MOD-sp4) 17 % LOGAN ISCV TAPSE 15 mm LOGAN ISCV LV EDV(MOD-2ch) 270 mL LOGAN ISCV EDV(MOD-bp) 287 mL LOGAN ISCV LV ESV(MOD2ch) 190 mL LOGAN ISCV EF(MOD-sp2) 30 % LOGAN ISCV ESV(MOD-bp) 221 mL LOGAN ISCV EF(MOD-bp) 23 % LOGAN ISCV LVLs ap2 9.9 mm LOGAN ISCV LVIDd 66 mm LOGAN ISCV IVSd 11 mm LOGAN ISCV LVPWd 11 mm LOGAN ISCV LV MASS(C)D 328 g LOGAN ISCV [facility] CV ECHO LV MASS INDEX 173 g/m2 LOGAN ISCV LV RWT 0.33 mm LOGAN ISCV LVIDs 56 mm LOGAN ISCV Ao Root Diam 32 mm LOGAN ISCV RV base 48 mm LOGAN ISCV IVC Max Size 20 mm LOGAN ISCV Anatomical Region Laterality Modality Echocardiography Narrative 02/24/2025 11:03 AM EDT Left Ventricle: The left ventricular systolic function is severely reduced. The LVEF as measured by biplane volume is 23%. Right Ventricle: The right ventricle is moderately dilated. The right ventricular systolic function is reduced. There is regional wall motion abnormalities. There is right ventricular free wall akinesis. There is right ventricular apical akinesis. The estimated right ventricular systolic pressure is 51 mmHg. Right ventricular systolic pressure is moderately elevated (50-70mmHg). Mitral Valve: There is a bileaflet mechanical mitral valve (35/25 mm ON-X) that is well seated. The mean mitral valve pressure gradient is estimated to be 4 mmHg at a heart rate of 78 bpm. The gradient is normal for this prosthetic valve. Tricuspid Valve: There is severe tricuspid regurgitation. There is systolic flow reversal of the hepatic veins consistent with significant tricuspid valve regurgitation. Pericardium: No pericardial effusion. Compared to the most recently available prior study, and allowing for differences in image quality and technique, there is no significant interval change noted. Left Ventricle Based on the linear dimension and/or 2D volumes, the left ventricle is severely dilated in size. There is eccentric hypertrophy. No left ventricular mass or thrombus is seen. The left ventricular systolic function is severely reduced. The LVEF as measured by biplane volume is 23%. See diagram below for wall motion findings. Right Ventricle The right ventricle is moderately dilated. A catheter/lead is present in the right ventricle. The right ventricular systolic function is reduced. There is regional wall motion abnormalities. There is right ventricular free wall akinesis. There is right ventricular apical akinesis. The estimated right ventricular systolic pressure is 51 mmHg. Right ventricular systolic pressure is moderately elevated (50-70mmHg). Right Atrium There is a catheter/lead present in the right atrium. IVC/SVC Based on the IVC size and respiratory variation, the estimated right atrial pressure is 15mmHg. 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 Mitral regurgitation is present; however, its severity cannot be assessed due to shielding from the prosthesis. The mean mitral valve pressure gradient is estimated to be 4 mmHg at a heart rate of 78 bpm. The gradient is normal for this prosthetic valve. Tricuspid Valve There is malcoaptation of the tricuspid valve leaflets due to annular dilation. There is severe tricuspid regurgitation. There is systolic flow reversal of the hepatic veins consistent with significant tricuspid valve regurgitation. There is no tricuspid stenosis. Aortic Valve The aortic valve appears to be trileaflet. There is mild aortic valve regurgitation. There is no hemodynamically significant valvular aortic stenosis. Pulmonic Valve The pulmonic valve is grossly normal. There is mild pulmonic regurgitation. There is no pulmonic stenosis. Pericardium No pericardial effusion. Great Vessels The aortic root is normal in size. The sinus of Valsalva (aortic root) diameter is 32 mm by leading edge to leading edge method. Study Details A limited transthoracic echocardiogram using limited 2D, color flow Doppler and limited spectral Doppler imaging was performed. During the study the apical, parasternal and subcostal view was captured. Overall the study quality was adequate. Heart rate was normal. Height: 167.6 cm. Weight: 78.9 kg. BSA: 1.89 m2. The heart rhythm during this exam was most suggestive of a sinus rhythm. Unable to use Definity due to lack of IV access. Only line present had heparin running in it. Study Recommendation Compared to the most recently available prior study, and allowing for differences in image quality and technique, there is no significant interval change noted. Wall Scoring Baseline Score Index: 2.35 The following segments are akinetic: mid anterior, mid anteroseptal, mid inferoseptal, apical anterior, apical septal, apical inferior, apical lateral and apex. The following segments are hypokinetic: basal anterior, basal anteroseptal, basal inferoseptal, basal inferior, mid inferior, mid inferolateral and mid anterolateral. All other segments are normal. us Ro Toro APRN, DNP CV ECHO PROCEDURES Soraya l Result * (ABNORMAL) Protime-INR (02/24/2025 7:27 AM EDT) Pathologist [facility] Prothrombin Time 18.3(H) 12.0 - 14.3 sec LAB COAGULATION METHOD 02/24/2025 8:46 AM EDT [facility] INR 1.5(H) 0.9 - 1.1 LAB COAGULATION METHOD 02/24/2025 8:46 AM EDT [facility] Blood Venous blood specimen / Unknown Venipuncture / Unknown 02/24/2025 7:27 AM EDT 02/24/2025 7:38 AM EDT Narrative [facility] - 02/24/2025 8:46 AM EDT OPTIMAL INR RANGES FOR PATIENT ON ORAL ANTICOAGULANT THERAPY Prevention of venous thromboembolism INR 2.0 to 3.0 In patients with heart disease: Atrial fibrillation INR 2.0 to 3.0 Valvular heart disease INR 2.0 to 3.0 Tissue heart valves INR 2.0 to 3.0 Mechanical prosthetic valves INR 2.5 to 3.5 Prevention of recurrent IA INR 2.5 to 3.5 us Ro Toro APRN, DNP LAB BLOOD ORDERABLES Fi nal Result Performing Organization Address City/State/[facility] Co de Phone Number [facility] [address] [place] [address] * Anti Xa Level Unfractionated Heparin - Heparin Drip Titration (02/24/2025 7:27 AM EDT) Pathologist [facility] Anti Xa Level Unfractionated Heparin 0.47 <1.00 IU/mL LAB COAGULATION METHOD 02/24/2025 8:02 AM EDT [facility] Blood Venous blood specimen / Unknown Venipuncture / Unknown 02/24/2025 7:27 AM EDT 02/24/2025 7:38 AM EDT Narrative [facility] - 02/24/2025 8:02 AM EDT Therapeutic Range: UFH Full Dose and ACS/IA protocols*: 0.30 - 0.70 IU/mL UFH Low Dose protocol*: 0.25 - 0.50 IU/mL UFH prophylaxis: Not established Ro Toro NET APPLICATION ARCHITECT, DNP LAB BLOOD ORDERABLES Fi nal Result Performing Organization Address [facility] Co de Phone Number [facility] [address] [place] [address] * (ABNORMAL) CBC W/O Differential (02/24/2025 7:27 AM EDT) Pathologist [facility] WBC Count 7.30 3.70 - 10.30 10*3/uL LAB HEMATOLOGY METHOD 02/24/2025 7:45 AM EDT [facility] RBC Count 3.77(L) 3.90 - 5.20 10*6/uL LAB HEMATOLOGY METHOD 02/24/2025 7:45 AM EDT [facility] HGB 11.2 11.2 - 15.7 g/dL LAB HEMATOLOGY METHOD 02/24/2025 7:45 AM EDT [facility] HCT 35.6 34.0 - 45.0 % LAB HEMATOLOGY METHOD 02/24/2025 7:45 AM EDT [facility] Platelet Count 131(L) 155 - 369 10*3/uL LAB HEMATOLOGY METHOD 02/24/2025 7:45 AM EDT [facility] MCV 94 79 - 98 fL LAB HEMATOLOGY METHOD 02/24/2025 7:45 AM EDT [facility] MCH 29.7 26.0 - 32.0 pg LAB HEMATOLOGY METHOD 02/24/2025 7:45 AM EDT [facility] MCHC 31.5 30.7 - 35.5 g/dL LAB HEMATOLOGY METHOD 02/24/2025 7:45 AM EDT [facility] RDW 18.2(H) 11.5 - 14.5 % LAB HEMATOLOGY METHOD 02/24/2025 7:45 AM EDT [facility] MPV 12.3 8.8 - 12.5 fL LAB HEMATOLOGY METHOD 02/24/2025 7:45 AM EDT [facility] nRBC 0.0 <=0.0 per 100 WBCs LAB HEMATOLOGY METHOD 02/24/2025 7:45 AM EDT [facility] Blood Venous blood specimen / Unknown Venipuncture / Unknown 02/24/2025 7:27 AM EDT 02/24/2025 7:38 AM EDT Oneal Green MD LAB BLOOD ORDERABLES Final Res ult [facility] [address] [place] [address] * Phosphorus (02/24/2025 7:27 AM EDT) Phosphorus, Plasma 4.4 2.5 - 4.5 mg/dL 02/24/2025 8:06 AM EDT [facility] Blood Venous blood specimen / Unknown Venipuncture / Unknown 02/24/2025 7:27 AM EDT 02/24/2025 7:38 AM EDT us Oneal Green MD LAB BLOOD ORDERABLES Final Res ult [facility] [address] [place] [address] * (ABNORMAL) Magnesium (02/24/2025 7:27 AM EDT) Magnesium, Plasma 1.8(L) 1.9 - 2.4 mg/dL 02/24/2025 8:06 AM EDT [facility] Blood Venous blood specimen / Unknown Venipuncture / Unknown 02/24/2025 7:27 AM EDT 02/24/2025 7:38 AM EDT us Oneal Green MD LAB BLOOD ORDERABLES Final Res ult [facility] [address] [place] [address] * (ABNORMAL) Basic metabolic panel (02/24/2025 7:27 AM EDT) Glucose, Plasma 127(H) 74 - 99 mg/dL 02/24/2025 8:06 AM EDT [facility] BUN, Plasma 21 7 - 21 mg/dL 02/24/2025 8:06 AM EDT [facility] Creatinine, Plasma 2.27(H) 0.60 - 1.10 mg/dL 02/24/2025 8:06 AM EDT [facility] BUN/Creatinine Ratio 9 02/24/2025 8:06 AM EDT [facility] Sodium, Plasma 131(L) 136 - 145 mmol/L 02/24/2025 8:06 AM EDT [facility] Potassium, Plasma 3.3(L) 3.6 - 4.9 mmol/L 02/24/2025 8:06 AM EDT [facility] Chloride, Plasma 95(L) 97 - 107 mmol/L 02/24/2025 8:06 AM EDT [facility] CO2, Plasma 22 22 - 29 mmol/L 02/24/2025 8:06 AM EDT [facility] Anion Gap 14 6 - 16 mmol/L 02/24/2025 8:06 AM EDT [facility] Total Calcium, Plasma 8.8(L) 8.9 - 10.2 mg/dL 02/24/2025 8:06 AM EDT [facility] eGFRcr 25.1 mL/min/1.7 3m*2 02/24/2025 8:06 AM EDT [facility] Comment:Reported eGFRcr in m L/min/1.73m2 is based the CKD-EPI 2020 equation that does not use a race coefficient. Blood Venous blood specimen / Unknown Venipuncture / Unknown 02/24/2025 7:27 AM EDT 02/24/2025 7:38 AM EDT us Oneal Green MD LAB BLOOD ORDERABLES Final Res ult Performing Organization Address [facility]/ZIP Co de Phone Number [facility] [address] [place] [address] * Anti Xa Level Unfractionated Heparin - Heparin Drip Titration (02/24/2025 12:55 AM EDT) Anti Xa Level Unfractionated Heparin <0.11 <1.00 IU/mL LAB COAGULATION METHOD 02/24/2025 1:38 AM EDT [facility] Blood Venous blood specimen / Unknown Venipuncture / Unknown 02/24/2025 12:55 AM EDT 02/24/2025 1:08 AM EDT Narrative [facility] - 02/24/2025 1:38 AM EDT Therapeutic Range: UFH Full Dose and ACS/IA protocols*: 0.30 - 0.70 IU/mL UFH Low Dose protocol*: 0.25 - 0.50 IU/mL UFH prophylaxis: Not established us Ro Toro APRN, LOLY LAB BLOOD ORDERABLES Fi nal Result Performing Organization Address [facility] Co de Phone Number [facility] [address] [place] [address] * Phosphorus (02/23/2025 7:28 PM EDT) Phosphorus, Plasma 3.0 2.5 - 4.5 mg/dL 02/23/2025 8:27 PM EDT [facility] Blood Venous blood specimen / Unknown Venipuncture / Unknown 02/23/2025 7:28 PM EDT 02/23/2025 7:37 PM EDT us Ro Toro APRN, DNP LAB BLOOD ORDERABLES Fi nal Result Performing Organization Address City/[facility]/ZIP Co de Phone Number [facility] [address] [place] [address] * (ABNORMAL) Magnesium (02/23/2025 7:28 PM EDT) Magnesium, Plasma 1.7(L) 1.9 - 2.4 mg/dL 02/23/2025 8:27 PM EDT [facility] Blood Venous blood specimen / Unknown Venipuncture / Unknown 02/23/2025 7:28 PM EDT 02/23/2025 7:37 PM EDT us Ro Toro NET APPLICATION ARCHITECT, DNP LAB BLOOD ORDERABLES Fi nal Result [facility] [address] [place] [address] * (ABNORMAL) Basic metabolic panel (02/23/2025 7:28 PM EDT) Glucose, Plasma 84 74 - 99 mg/dL 02/23/2025 8:27 PM EDT [facility] BUN, Plasma 15 7 - 21 mg/dL 02/23/2025 8:27 PM EDT [facility] Creatinine, Plasma 1.72(H) 0.60 - 1.10 mg/dL 02/23/2025 8:27 PM EDT [facility] BUN/Creatinine Ratio 9 02/23/2025 8:27 PM EDT [facility] Sodium, Plasma 134(L) 136 - 145 mmol/L 02/23/2025 8:27 PM EDT [facility] Potassium, Plasma 3.3(L) 3.6 - 4.9 mmol/L 02/23/2025 8:27 PM EDT [facility] Chloride, Plasma 97 97 - 107 mmol/L 02/23/2025 8:27 PM EDT [facility] CO2, Plasma 21(L) 22 - 29 mmol/L 02/23/2025 8:27 PM EDT [facility] Anion Gap 16 6 - 16 mmol/L 02/23/2025 8:27 PM EDT [facility] Total Calcium, Plasma 8.9 8.9 - 10.2 mg/dL 02/23/2025 8:27 PM EDT [facility] eGFRcr 35.0 mL/min/1.7 3m*2 02/23/2025 8:27 PM EDT [facility] Comment:Reported eGFRcr in m L/min/1.73m2 is based the CKD-EPI 2020 equation that does not use a race coefficient. Blood Venous blood specimen / Unknown Venipuncture / Unknown 02/23/2025 7:28 PM EDT 02/23/2025 7:37 PM EDT us Ro Toro APRN, LOLY LAB BLOOD ORDERABLES Fi nal Result Performing Organization Address [facility] Co de Phone Number [facility] [address] [place] [address] * (ABNORMAL) Protime-INR (02/23/2025 7:28 PM EDT) Prothrombin Time 15.9(H) 12.0 - 14.3 sec LAB COAGULATION METHOD 02/23/2025 8:11 PM EDT [facility] INR 1.3(H) 0.9 - 1.1 LAB COAGULATION METHOD 02/23/2025 8:11 PM EDT [facility] Blood Venous blood specimen / Unknown Venipuncture / Unknown 02/23/2025 7:28 PM EDT 02/23/2025 7:38 PM EDT Narrative [facility] - 02/23/2025 8:11 PM EDT OPTIMAL INR RANGES FOR PATIENT ON ORAL ANTICOAGULANT THERAPY Prevention of venous thromboembolism INR 2.0 to 3.0 In patients with heart disease: Atrial fibrillation INR 2.0 to 3.0 Valvular heart disease INR 2.0 to 3.0 Tissue heart valves INR 2.0 to 3.0 Mechanical prosthetic valves INR 2.5 to 3.5 Prevention of recurrent IA INR 2.5 to 3.5 us Ro Toro APRN, LOLY LAB BLOOD ORDERABLES Fi nal Result Performing Organization Address City/[facility] Co de Phone Number [facility] [address] [place] [address] * (ABNORMAL) CBC W/O Differential - Baseline (02/23/2025 7:28 PM EDT) WBC Count 8.11 3.70 - 10.30 10*3/uL LAB HEMATOLOGY METHOD 02/23/2025 7:50 PM EDT [facility] RBC Count 4.02 3.90 - 5.20 10*6/uL LAB HEMATOLOGY METHOD 02/23/2025 7:50 PM EDT [facility] HGB 11.7 11.2 - 15.7 g/dL LAB HEMATOLOGY METHOD 02/23/2025 7:50 PM EDT [facility] HCT 37.5 34.0 - 45.0 % LAB HEMATOLOGY METHOD 02/23/2025 7:50 PM EDT [facility] Platelet Count 124(L) 155 - 369 10*3/uL LAB HEMATOLOGY METHOD 02/23/2025 7:50 PM EDT [facility] MCV 93 79 - 98 fL LAB HEMATOLOGY METHOD 02/23/2025 7:50 PM EDT [facility] MCH 29.1 26.0 - 32.0 pg LAB HEMATOLOGY METHOD 02/23/2025 7:50 PM EDT [facility] MCHC 31.2 30.7 - 35.5 g/dL LAB HEMATOLOGY METHOD 02/23/2025 7:50 PM EDT [facility] RDW 18.5(H) 11.5 - 14.5 % LAB HEMATOLOGY METHOD 02/23/2025 7:50 PM EDT [facility] MPV 12.3 8.8 - 12.5 fL LAB HEMATOLOGY METHOD 02/23/2025 7:50 PM EDT [facility] nRBC 0.0 <=0.0 per 100 WBCs LAB HEMATOLOGY METHOD 02/23/2025 7:50 PM EDT [facility] Blood Venous blood specimen / Unknown Venipuncture / Unknown 02/23/2025 7:28 PM EDT 02/23/2025 7:41 PM EDT us Ro Toro NET APPLICATION ARCHITECT, DNP LAB BLOOD ORDERABLES Fi nal Result [facility] [address] [place] [address] * Anti Xa Level Unfractionated Heparin - Baseline (02/23/2025 7:28 PM EDT) Anti Xa Level Unfractionated Heparin <0.11 <1.00 IU/mL LAB COAGULATION METHOD 02/23/2025 8:11 PM EDT [facility] Blood Venous blood specimen / Unknown Venipuncture / Unknown 02/23/2025 7:28 PM EDT 02/23/2025 7:38 PM EDT Narrative [facility] - 02/23/2025 8:11 PM EDT Therapeutic Range: UFH Full Dose and ACS/IA protocols*: 0.30 - 0.70 IU/mL UFH Low Dose protocol*: 0.25 - 0.50 IU/mL UFH prophylaxis: Not established us Ro Toro APRN, DNP LAB BLOOD ORDERABLES Fi nal Result Performing Organization Address City/[facility] de Phone Number [facility] [address] [place] [address] * (ABNORMAL) Protime-INR (02/23/2025 2:10 PM EDT) Prothrombin Time 16.1(H) 12.0 - 14.3 sec 02/23/2025 3:05 PM EDT [facility] INR 1.3(H) 0.9 - 1.1 02/23/2025 3:05 PM EDT [facility] Blood Venous blood specimen / Unknown Venipuncture / Unknown 02/23/2025 2:10 PM EDT 02/23/2025 2:13 PM EDT Narrative [facility] - 02/23/2025 3:05 PM EDT OPTIMAL INR RANGES FOR PATIENT ON ORAL ANTICOAGULANT THERAPY Prevention of venous thromboembolism INR 2.0 to 3.0 In patients with heart disease: Atrial fibrillation INR 2.0 to 3.0 Valvular heart disease INR 2.0 to 3.0 Tissue heart valves INR 2.0 to 3.0 Mechanical prosthetic valves INR 2.5 to 3.5 Prevention of recurrent IA INR 2.5 to 3.5 us Ro Toro APRN, DNP LAB BLOOD ORDERABLES Fi nal Result [facility] [address] [place] [address] * XR Chest 2 Views (02/23/2025 10:44 AM EDT) Anatomical Region Laterality Modality Chest Computed Radiogr aphy Impressions 02/23/2025 11:57 AM EDT Lower lobe predominant airspace and interstitial opacities could relate to mild pulmonary edema. Mild cardiomegaly. CRITICAL RESULT: No. COMMUNICATION: Per this written report. By electronically signing this report, I, the attending physician, attest that I have personally reviewed the images/data for the above examination(s) and agree with the final edited report. Drafted by Juno Helton MD on 02/23/2025 10:58 AM Final report signed by Rosey Sofia MD on 02/23/2025 11:57 AM Narrative 02/23/2025 11:57 AM EDT CLINICAL INDICATION: HFrEF TECHNIQUE: XR CHEST 2 VIEWS COMPARISON: Chest radiograph May 2024 FINDINGS: Mild cardiomegaly is similar to comparison. Left chest wall Port-A-Cath with dual cardiac leads project in similar position to comparison. Mitral valve replacement. Median sternotomy wires are intact. Calcific atherosclerosis of the thoracic aorta. Right chest wall central venous access catheter terminates in the right atrium. Right lower lobe hazy airspace and interstitial opacities. No pneumothorax. No acute osseous findings. Degenerative changes of bilateral shoulders. Procedure Note Rosey Sofia MD - 02/23/2025 CLINICAL INDICATION: HFrEF TECHNIQUE: XR CHEST 2 VIEWS COMPARISON: Chest radiograph May 2024 FINDINGS: Mild cardiomegaly is similar to comparison. Left chest wall [id number] dual cardiac leads project in similar position to comparison. Mitralvalve replacement. Median sternotomy wires are intact. Calcificatherosclerosis of the thoracic aorta. Right chest wall central venousaccess catheter terminates in the right atrium. Right lower lobe hazyairspace and interstitial opacities. No pneumothorax. No acute osseousfindings. Degenerative changes of bilateral shoulders. IMPRESSION: Lower lobe predominant airspace and interstitial opacities could relate tomild pulmonary edema. Mild cardiomegaly. CRITICAL RESULT: No. COMMUNICATION: Per this written report. By electronically signing this report, I, the attending physician, attclydeat I have personally reviewed the images/data for the aboveexamination(s) and agree with the final edited report. Drafted by Juno Helton MD on 02/23/2025 10:58 AM Final report signed by Rosey Sofia MD on 02/23/2025 11:57 AM German Richardson MD IMG XR PROCEDURES Final Resul t * (ABNORMAL) Blood gas panel, venous (02/23/2025 10:15 AM EDT) pH, Venous 7.44(H) 7.32 - 7.43 LAB HEMATOLOGY METHOD 02/23/2025 10:24 AM EDT [facility] pCO2, Venous 27(L) 37 - 52 mmHg LAB HEMATOLOGY METHOD 02/23/2025 10:24 AM EDT [facility] pO2, Venous 69(H) 25 - 40 mmHg LAB HEMATOLOGY METHOD 02/23/2025 10:24 AM EDT [facility] SO2, Measured, Venous 95(H) 65 - 80 % LAB HEMATOLOGY METHOD 02/23/2025 10:24 AM EDT [facility] Base Excess, Venous -4.2(L) -2.0 - 3.0 mmol/L LAB HEMATOLOGY METHOD 02/23/2025 10:24 AM EDT [facility] Bicarbonate, Calculated, Venous 19(L) 22 - 26 mmol/L LAB HEMATOLOGY METHOD 02/23/2025 10:24 AM EDT [facility] Hematocrit, Whole Blood 35.2 34.0 - 45.0 % LAB HEMATOLOGY METHOD 02/23/2025 10:24 AM EDT [facility] Sodium, Whole Blood 134(L) 136 - 145 mmol/L LAB HEMATOLOGY METHOD 02/23/2025 10:24 AM EDT [facility] Potassium, Whole Blood 3.2(L) 3.6 - 4.9 mmol/L LAB HEMATOLOGY METHOD 02/23/2025 10:24 AM EDT [facility] Chloride, Whole Blood 103 97 - 107 mmol/L LAB HEMATOLOGY METHOD 02/23/2025 10:24 AM EDT [facility] Glucose, Whole Blood 101(H) 74 - 99 mg/dL LAB HEMATOLOGY METHOD 02/23/2025 10:24 AM EDT [facility] Lactate, Venous, Whole Blood 1.3 0.5 - 2.2 mmol/L LAB HEMATOLOGY METHOD 02/23/2025 10:24 AM EDT [facility] Ionized Calcium, Whole Blood 4.2(L) 4.6 - 5.1 mg/dL LAB HEMATOLOGY METHOD 02/23/2025 10:24 AM EDT [facility] Blood Venous blood specimen / Unknown Venipuncture / Unknown 02/23/2025 10:15 AM EDT 02/23/2025 10:19 AM EDT German Richardson MD LAB BLOOD ORDERABLES Final Re sult Performing Organization Address [facility] Co de Phone Number [facility] [address] [place] [address] * (ABNORMAL) BNP (02/23/2025 10:15 AM EDT) N-Terminal, PROBNP, Plasma 41,068(H) 0 - 899 pg/mL 02/23/2025 11:04 AM EDT [facility] Blood Venous blood specimen / Unknown Venipuncture / Unknown 02/23/2025 10:15 AM EDT 02/23/2025 10:19 AM EDT German Richardson MD LAB BLOOD ORDERABLES Final Re sult Performing Organization Address [facility]/ZIP Co de Phone Number [facility] [address] [place] [address] * (ABNORMAL) Procalcitonin (02/23/2025 10:15 AM EDT) Procalcitonin, Plasma 0.33(H) <0.09 ng/mL 02/23/2025 11:04 AM EDT [facility] Blood Venous blood specimen / Unknown Venipuncture / Unknown 02/23/2025 10:15 AM EDT 02/23/2025 10:19 AM EDT Narrative [facility] - 02/23/2025 11:04 AM EDT Procalcitonin concentrations in healthy individuals are <0.09 ng/mL. Published data support the following interpretive risk assessment: An elevated procalcitonin result does not always indicate sepsis. Various non-infectious conditions are known to increase procalcitonin. Results should be considered in the context of clinical symptoms and other laboratory tests. Procalcitonin >2.0 ng/mL: Concentrations >2.0 ng/mL on the first day of ICU admission are associated with a higher risk of progression to severe sepsis and/or septic shock. The change in PCT over time may help predict 28 day mortality risk. Please consult [email or web address] for more information. Test performed at [facility], [facility]. German Richardson MD LAB BLOOD ORDERABLES Final Re sult Performing Organization Address [facility] Co de Phone Number [facility] [address] [place] [address] * (ABNORMAL) Phosphorus (02/23/2025 10:15 AM EDT) Phosphorus, Plasma 5.4(H) 2.5 - 4.5 mg/dL 02/23/2025 11:04 AM EDT [facility] Blood Venous blood specimen / Unknown Venipuncture / Unknown 02/23/2025 10:15 AM EDT 02/23/2025 10:19 AM EDT German Richardson MD LAB BLOOD ORDERABLES Final Re sult Performing Organization Address [facility] Co de Phone Number [facility] [address] [place] [address] * (ABNORMAL) Magnesium (02/23/2025 10:15 AM EDT) Magnesium, Plasma 1.7(L) 1.9 - 2.4 mg/dL 02/23/2025 11:04 AM EDT [facility] Blood Venous blood specimen / Unknown Venipuncture / Unknown 02/23/2025 10:15 AM EDT 02/23/2025 10:19 AM EDT us German Richardson MD LAB BLOOD ORDERABLES Final Re sult [facility] [address] [place] [address] * (ABNORMAL) CMP (02/23/2025 10:15 AM EDT) Glucose, Plasma 100(H) 74 - 99 mg/dL 02/23/2025 11:04 AM EDT [facility] BUN, Plasma 32(H) 7 - 21 mg/dL 02/23/2025 11:04 AM EDT [facility] Creatinine, Plasma 2.94(H) 0.60 - 1.10 mg/dL 02/23/2025 11:04 AM EDT [facility] BUN/Creatinine Ratio 11 02/23/2025 11:04 AM EDT [facility] Sodium, Plasma 133(L) 136 - 145 mmol/L 02/23/2025 11:04 AM EDT [facility] Potassium, Plasma 3.3(L) 3.6 - 4.9 mmol/L 02/23/2025 11:04 AM EDT [facility] Chloride, Plasma 101 97 - 107 mmol/L 02/23/2025 11:04 AM EDT [facility] CO2, Plasma 16(L) 22 - 29 mmol/L 02/23/2025 11:04 AM EDT [facility] Anion Gap 16 6 - 16 mmol/L 02/23/2025 11:04 AM EDT [facility] Total Calcium, Plasma 8.7(L) 8.9 - 10.2 mg/dL 02/23/2025 11:04 AM EDT [facility] Total Protein 6.5 6.3 - 7.9 g/dL 02/23/2025 11:04 AM EDT [facility] Albumin, Plasma 3.6 3.5 - 5.2 g/dL 02/23/2025 11:04 AM EDT [facility] AST, Plasma 18 10 - 35 U/L 02/23/2025 11:04 AM EDT [facility] ALT, Plasma 12 10 - 35 U/L 02/23/2025 11:04 AM EDT [facility] Alkaline Phosphatase, Plasma 106(H) 35 - 104 U/L 02/23/2025 11:04 AM EDT [facility] Total Bilirubin, Plasma 1.1 0.2 - 1.1 mg/dL 02/23/2025 11:04 AM EDT [facility] eGFRcr 18.4 mL/min/1.7 3m*2 02/23/2025 11:04 AM EDT [facility] Comment:Reported eGFRcr in m L/min/1.73m2 is based the CKD-EPI 2020 equation that does not use a race coefficient. Blood Venous blood specimen / Unknown Venipuncture / Unknown 02/23/2025 10:15 AM EDT 02/23/2025 10:19 AM EDT us German Richardson MD LAB BLOOD ORDERABLES Final Re sult [facility] [address] [place] [address] * (ABNORMAL) CBC w/diff (02/23/2025 10:15 AM EDT) WBC Count 8.53 3.70 - 10.30 10*3/uL LAB HEMATOLOGY METHOD 02/23/2025 10:25 AM EDT [facility] RBC Count 3.83(L) 3.90 - 5.20 10*6/uL LAB HEMATOLOGY METHOD 02/23/2025 10:25 AM EDT [facility] HGB 11.2 11.2 - 15.7 g/dL LAB HEMATOLOGY METHOD 02/23/2025 10:25 AM EDT [facility] HCT 35.8 34.0 - 45.0 % LAB HEMATOLOGY METHOD 02/23/2025 10:25 AM EDT [facility] Platelet Count 124(L) 155 - 369 10*3/uL LAB HEMATOLOGY METHOD 02/23/2025 10:25 AM EDT [facility] MCV 94 79 - 98 fL LAB HEMATOLOGY METHOD 02/23/2025 10:25 AM EDT [facility] MCH 29.2 26.0 - 32.0 pg LAB HEMATOLOGY METHOD 02/23/2025 10:25 AM EDT [facility] MCHC 31.3 30.7 - 35.5 g/dL LAB HEMATOLOGY METHOD 02/23/2025 10:25 AM EDT [facility] RDW 18.4(H) 11.5 - 14.5 % LAB HEMATOLOGY METHOD 02/23/2025 10:25 AM EDT [facility] MPV 11.8 8.8 - 12.5 fL LAB HEMATOLOGY METHOD 02/23/2025 10:25 AM EDT [facility] nRBC 0.0 <=0.0 per 100 WBCs LAB HEMATOLOGY METHOD 02/23/2025 10:25 AM EDT [facility] Differential Type Automated LAB HEMATOLOGY METHOD 02/23/2025 10:25 AM EDT [facility] Neutrophils % 88 % LAB HEMATOLOGY METHOD 02/23/2025 10:25 AM EDT [facility] Lymphocytes % 6 % LAB HEMATOLOGY METHOD 02/23/2025 10:25 AM EDT [facility] Monocytes % 5 % LAB HEMATOLOGY METHOD 02/23/2025 10:25 AM EDT [facility] Eosinophils % 1 % LAB HEMATOLOGY METHOD 02/23/2025 10:25 AM EDT [facility] Basophils % 0 % LAB HEMATOLOGY METHOD 02/23/2025 10:25 AM EDT [facility] Immature Granulocytes % 0 % LAB HEMATOLOGY METHOD 02/23/2025 10:25 AM EDT [facility] Neutrophils Absolute 7.50(H) 1.60 - 6.10 10*3/uL LAB HEMATOLOGY METHOD 02/23/2025 10:25 AM EDT [facility] Lymphocytes Absolute 0.51(L) 1.20 - 3.90 10*3/uL LAB HEMATOLOGY METHOD 02/23/2025 10:25 AM EDT [facility] Monocytes Absolute 0.42 0.30 - 0.90 10*3/uL LAB HEMATOLOGY METHOD 02/23/2025 10:25 AM EDT [facility] Eosinophils Absolute 0.04 0.00 - 0.50 10*3/uL LAB HEMATOLOGY METHOD 02/23/2025 10:25 AM EDT [facility] Basophils Absolute 0.03 0.00 - 0.10 10*3/uL LAB HEMATOLOGY METHOD 02/23/2025 10:25 AM EDT [facility] Immature Granulocytes Absolute 0.03 0.00 - 0.06 10*3/uL LAB HEMATOLOGY METHOD 02/23/2025 10:25 AM EDT [facility] Blood Venous blood specimen / Unknown Venipuncture / Unknown 02/23/2025 10:15 AM EDT 02/23/2025 10:19 AM EDT Narrative [facility] - 02/23/2025 10:25 AM EDT Therapeutic decision making should be based on absolute values, rather than percentages. us German Richardson MD LAB BLOOD ORDERABLES Final Re sult [facility] [address] [place] [address] * EKG now - STAT (adult) (02/23/2025 7:56 AM EDT) EKG DIAGNOSIS CLASS Abnormal MUSE ECG Ventricular Rate 80 BPM MUSE ECG Atrial Rate 79 BPM MUSE ECG QRSD Interval 160 ms MUSE ECG QT Interval 482 ms MUSE ECG QTC Interval 555 ms MUSE ECG R Naylor 178 degrees MUSE ECG T Wave Naylor 4 degrees MUSE ECG Diagnosis Ventricular-pace d rhythm MUSE ECG Diagnosis Biventricular pacemaker detected MUSE ECG Diagnosis Abnormal ECG MUSE ECG Diagnosis MUSE ECG Diagnosis Confirmed by Mj Sheffield ([id number]) on 02/23/2025 11:38:11 AM MUSE ECG 02/23/2025 7:56 AM EDT 02/23/2025 11:38 AM EDT us German Richardson MD ECG ORDERABLES Final Result MUSE ECG * [facility] ED POCUS PROCDOC (02/23/2025 7:42 AM EDT) Narrative German Richardson MD - 02/23/2025 7:42 AM EDT German Richardson MD 02/25/2025 7:04 AM POC Ultrasound - Bedside Performed by: Loida Chirinos MD Authorized by: German Richardson MD Procedure specific details: Limited Cardiac Ultrasound A focused ultrasound of the heart was performed to evaluate for pericardial effusion, tamponade, severe hypovolemia, or gross abnormalities of cardiac anatomy or function in this patient. The ultrasound was performed with the following indications, as noted in the H&P: Dyspnea Identified structures: The pericardial sac, myocardium, and 4 chambers were identified using the following views: Parasternal long axis and Parasternal short axis Findings Exam of the above structures revealed the following findings: Pericardial Effusion: Absent Pericardial tamponade: absent Visual estimation of LV function: Severely depressed Visual estimation of RV size: less than 1:1 RV/LV ratio Other: B-lines visualized in bilateral lungs Impression: Diminished LV function The images were Saved in [employer]. The study was technically adequate. Comments: B-lines visualized in bilateral lungs, could be suggestive of CHF exacerbation us German Richardson MD IN CLINIC/BEDSIDE ORDERABLES Final Result documented in this encounter Visit Diagnoses Diagnosis Acute decompensated heart failure- Primary ESRD needing dialysis ([facility]) Acute on chronic diastolic heart failure Acute decompensated heart failure documented in this encounter Admitting Diagnoses Diagnosis Acute decompensated heart failure documented in this encounter Administered Medications Inactive Administered Medications - up to 3 most recent administrations Medication Order MAR Action Action Date Dose Rate Site aMILoride (Midamor) tablet 5 mg 5 mg, Oral, Daily, First dose on Wed02/23/25 at 1350, Until Discontinued, Routine Given 03/01/2025 11:57 AM EDT 5 mg Given 02/28/2025 8:38 AM EDT 5 mg Given 02/27/2025 1:02 PM EDT 5 mg aspirin chewable tablet 81 mg 81 mg, Oral, Daily, First dose on Wed02/23/25 at 1350, Until Discontinued Given 03/01/2025 11:56 AM EDT 81 mg Given 02/28/2025 8:38 AM EDT 81 mg Given 02/27/2025 1:00 PM EDT 81 mg atorvastatin (Lipitor) tablet 40 mg 40 mg, Oral, Nightly, First dose on Wed02/23/25 at 2100, Until Discontinued, Routine Given 02/28/2025 8:38 PM EDT 40 mg Given 02/27/2025 8:56 PM EDT 40 mg Given 02/26/2025 8:15 PM EDT 40 mg bumetanide (Bumex) injection 1 mg 1 mg, Intravenous, Once, 1 dose, On Wed02/23/25 at 1155, Routine Given 02/23/2025 12:11 PM EDT 1 mg bumetanide (Bumex) injection 2 mg 2 mg, Intravenous, Once, 1 dose, On 02/24/25 at 1015, Routine Given 02/24/2025 10:43 AM EDT 2 mg bumetanide (Bumex) injection 2 mg 2 mg, Intravenous, Once, 1 dose, On 02/25/25 at 1430, Routine Given 02/25/2025 1:52 PM EDT 2 mg bumetanide (Bumex) tablet 2 mg 2 mg, Oral, User specified (2 times per day on Wednesday), First dose on Wed02/26/25 at 1000, Until Discontinued, Routine Given 02/28/2025 2:41 PM EDT 2 mg Given 02/28/2025 8:38 AM EDT 2 mg Given 02/26/2025 3:02 PM EDT 2 mg calcitriol (Rocaltrol) capsule 0.5 mcg 0.5 mcg, Oral, 3 times weekly (Once per day on Wednesday), First dose on Wed02/23/25 at 1350, Until Discontinued, Routine Given 02/28/2025 8:38 AM EDT 0.5 mcg Given 02/26/2025 8:15 AM EDT 0.5 mcg Given 02/23/2025 8:28 PM EDT 0.5 mcg cetirizine (ZyrTEC) tablet 10 mg 10 mg, Oral, Nightly, First dose on Wed02/23/25 at 2100, Until Discontinued, Routine Given 02/28/2025 8:37 PM EDT 10 mg Given 02/27/2025 8:56 PM EDT 10 mg Given 02/26/2025 8:15 PM EDT 10 mg heparin (porcine) - [facility] Adult Full Dose Protocol - SEP Re-bolus Calculator injection 0-4,700 Units 0-4,700 Units (rounded from 0-4,650 Units = 0-60 Units/kg 77.5 kg), Intravenous, Every 6 hours PRN, Starting on Wed02/23/25 at 2118, Until Wed03/01/25 at 1047, Routine, other, Anti-Xa Level Given 02/25/2025 8:05 PM EDT 2,300 Units Given 02/24/2025 1:52 AM EDT 4,700 Units heparin (porcine) injection 6,000 Units 6,000 Units (rounded from 6,200 Units = 80 Units/kg 77.5 kg), Intravenous, Once, 1 dose, On Wed02/23/25 at 1525, Routine Given 02/23/2025 7:39 PM EDT 6,000 Units heparin 25,000 units/250 mL (100 unit/mL) infusion - Adult Full Dose Protocol 0-35 Units/kg/hr 77.5 kg (0-27.125 mL/hr, rounded to 0-27.1 mL/hr), Intravenous, Titrated, Starting on Wed02/23/25 at 1525, Until Marisa 03/01/25 at 1047, Routine New Bag 03/01/2025 5:16 AM EDT 22 Units/kg/hr 17.1 mL/hr New Bag 02/28/2025 1:13 PM EDT 22 Units/kg/hr 17.1 mL/h r New Bag 02/27/2025 10:20 PM EDT 22 Units/kg/hr 17.1 mL/ hr hydrALAZINE (Apresoline) tablet 37.5 mg 37.5 mg, Oral, Every 8 hours scheduled, First dose on 02/24/25 at 0915, Until Discontinued, Routine Given 03/01/2025 2:04 PM EDT 37.5 mg Given 03/01/2025 5:15 AM EDT 37.5 mg Given 02/28/2025 10:59 PM EDT 37.5 mg isosorbide dinitrate (Isordil) tablet 20 mg 20 mg, Oral, Every 8 hours scheduled, First dose on 02/24/25 at 0915, Until Discontinued, Routine Given 03/01/2025 2:04 PM EDT 20 mg Given 03/01/2025 5:15 AM EDT 20 mg Given 02/28/2025 9:26 PM EDT 20 mg magnesium oxide (Mag-Ox) tablet 400 mg 400 mg, Oral, Daily, First dose on 02/26/25 at 0900, Until Discontinued, Routine Given 03/01/2025 11:5 6 AM EDT 400 mg Given 02/28/2025 8:39 AM EDT 400 mg Given 02/27/2025 1:00 PM EDT 400 mg magnesium sulfate IVPB 2 g 2 g, Intravenous, Once, 1 dose, On Wed02/26/25 at 0830, Routine Rate/Dose Verify 02/26/2025 11:00 AM EDT 25 mL/hr Rate/Dose Verify 02/26/2025 10:00 AM EDT 25 mL/ hr New Bag 02/26/2025 9:41 AM EDT 2 g 25 mL/hr methIMAzole (Tapazole) tablet 10 mg 10 mg, Oral, Daily, First dose on Wed02/23/25 at 1350, Until Discontinued, Routine Given 03/01/2025 11:57 AM EDT 10 mg Given 02/28/2025 8:38 AM EDT 10 mg Given 02/27/2025 1:02 PM EDT 10 mg methocarbamol (Robaxin) tablet 500 mg 500 mg, Oral, Once, 1 dose, On Wed02/26/25 at 2130, Routine Given 02/26/2025 9:19 PM EDT 500 mg metoprolol succinate XL (Toprol-XL) 24 hr tablet 25 mg 25 mg, Oral, 2 times daily, First dose on Wed02/24/25 at 1100, Until Discontinued, Routine Given 02/26/2025 8:14 AM EDT 25 mg Given 02/25/2025 8:45 PM EDT 25 mg Given 02/25/2025 8:36 AM EDT 25 mg metoprolol succinate XL (Toprol-XL) 24 hr tablet 50 mg 50 mg, Oral, 2 times daily, First dose (after last modification) on Wed02/26/25 at 2100, Until Discontinued, Routine Given 03/01/2025 11:57 AM EDT 50 mg Given 02/28/2025 8:38 PM EDT 50 mg Given 02/28/2025 8:38 AM EDT 50 mg mupirocin (Bactroban) 2 % ointment 1 Application Each Nostril, 2 times daily, 10 doses, First dose on Wed02/23/25 at 2100, Last dose on Wed02/28/25 at 0900, Routine Given 02/28/2025 8:39 AM EDT 1 Application Given 02/27/2025 8:55 PM EDT 1 Application Given 02/27/2025 1:00 PM EDT 1 Application pantoprazole (Protonix) EC tablet 40 mg 40 mg, Oral, Daily before breakfast, First dose on Wed02/24/25 at 0730, Until Discontinued, Routine Given 03/01/2025 11:57 AM EDT 40 mg Given 02/28/2025 8:38 AM EDT 40 mg Given 02/27/2025 1:00 PM EDT 40 mg potassium chloride CR (Klor-Con) ER tablet 40 mEq 40 mEq, Oral, Once, 1 dose, On Wed02/24/25 at 1100, Routine Given 02/24/2025 10:43 AM EDT 40 mEq prochlorperazine (Compazine) injection 2.5 mg 2.5 mg, Intravenous, Every 6 hours PRN, Starting on Wed02/26/25 at 1018, Until Wed03/01/25 at 1836, Routine, nausea, vomiting prochlorperazine (Compazine) injection 5 mg 5 mg, Intramuscular, Every 6 hours PRN, Starting on Wed02/26/25 at 1018, Until Wed03/01/25 at 1836, Routine, nausea, vomiting prochlorperazine (Compazine) suppository 25 mg 25 mg, Rectal, Every 12 hours PRN, Starting on Wed02/26/25 at 1018, Until Wed03/01/25 at 1836, Routine, nausea, vomiting prochlorperazine (Compazine) tablet 5 mg 5 mg, Oral, Every 6 hours PRN, Starting on Wed02/26/25 at 1018, Until Wed03/01/25 at 1836, Routine, nausea, vomiting sevelamer carbonate (Renvela) tablet 800 mg 800 mg, Oral, 3 times daily with meals, First dose on Wed02/27/25 at 1300, Until Discontinued, RoutineIndications:ESRD on Dialysis,Hyperphosphatemia Given 03/01/2025 11:59 AM EDT 800 mg Given 02/28/2025 5:22 PM EDT 800 mg Given 02/28/2025 12:27 PM EDT 800 mg sodium bicarbonate tablet 1,300 mg 1,300 mg, Oral, Daily, First dose on Wed02/23/25 at 1350, Until Discontinued, Routine Given 03/01/2025 11:56 AM EDT 1,300 mg Given 02/28/2025 8:38 AM EDT 1,300 mg Given 02/27/2025 1:00 PM EDT 1,300 mg sodium chloride 0.9 % flush 10 mL 10 mL, Intravenous, Every 12 hours, First dose on Wed02/23/25 at 1315, Until Discontinued, Routine Given 03/01/2025 1:01 PM EDT 10 mL Given 02/28/2025 1:04 PM EDT 10 mL Given 02/27/2025 1:02 PM EDT 10 mL sodium chloride 0.9 % flush 10 mL 10 mL, Intravenous, As needed, Starting on Wed02/23/25 at 1309, Until Wed03/01/25 at 1836, Routine, line care sodium citrate anticoagulant 4 % flush 6 mL 6 mL, Intracatheter, As needed, Starting on Wed02/24/25 at 1321, Until 02/24/25 at 1756, STAT, Dialysis, line care, Line care for occlusion DIALYSIS NURSE ONLY Given 02/24/2025 3:55 PM EDT 6 mL sodium citrate anticoagulant 4 % flush 6 mL 6 mL, Intracatheter, As needed, Starting on Wed02/27/25 at 0850, Until Wed02/27/25 at 1215, STAT, Dialysis, line care, Line care for occlusion DIALYSIS NURSE ONLY Given 02/27/2025 11:19 AM EDT 6 mL sodium citrate anticoagulant 4 % flush 6 mL 6 mL, Intracatheter, As needed, Starting on Wed03/01/25 at 0734, Until Wed03/01/25 at 1115, Routine, Dialysis, line care, Line care for occlusion DIALYSIS NURSE ONLYIndications:ESRD needing dialysis ([facility]) Given 03/01/2025 11:00 AM EDT 6 mL warfarin (Coumadin) intermittent dosing 1 each Oral, See admin instructions, Starting on Wed03/01/25 at 0916, Until Wed03/01/25 at 1836, Routine warfarin (Coumadin) tablet 4 mg 4 mg, Oral, Daily, First dose on Wed02/23/25 at 1700, Until Discontinued, Routine Given 02/24/2025 5:18 PM EDT 4 mg Given 02/23/2025 7:18 PM EDT 4 mg warfarin (Coumadin) tablet 5 mg 5 mg, Oral, Daily, First dose (after last modification) on Wed02/25/25 at 1700, Until Discontinued, Routine Given 02/28/2025 5:22 PM EDT 5 mg Given 02/27/2025 5:25 PM EDT 5 mg Given 02/26/2025 4:48 PM EDT 5 mg documented in this encounter Active and Recently Administered Medications Times are shown in EDT. Scheduled Medication Order 02/27/2025 02/28/2025 03/01/2025 aMILoride (Midamor) tablet 5 mg 5 mg, Oral, Daily, First dose on Wed02/23/25 at 1350, Until Discontinued, Routine 1302 (Given - Provider: Felicitas Webre RN) 0838 (Given - Provider: Felicitas Weber RN) 1157 (Given - Provider: Amber Manning RN) aspirin chewable tablet 81 mg 81 mg, Oral, Daily, First dose on Wed02/23/25 at 1350, Until Discontinued 1300 (Given - Provider: Felicitas Weber RN) 0838 (Given - Provider: Felicitas Weber RN) 1156 (Given - Provider: Amber Manning, CROW) atorvastatin (Lipitor) tablet 40 mg 40 mg, Oral, Nightly, First dose on Wed02/23/25 at 2100, Until Discontinued, Routine 2055 (Given - Provider: Roman Tamez RN) 2037 (Given - Provider: Roman Tamez RN) bumetanide (Bumex) tablet 2 mg 2 mg, Oral, User specified (2 times per day on Wednesday), First dose on Wed02/26/25 at 1000, Until Discontinued, Routine 0838 (Given - Provider: Felicitas Weber RN)1441 (Given - Provider: Felicitas Weber RN) calcitriol (Rocaltrol) capsule 0.5 mcg 0.5 mcg, Oral, 3 times weekly (Once per day on Wednesday), First dose on Wed02/23/25 at 1350, Until Discontinued, Routine 0838 (Given - Provider: Felicitas Weber RN) cetirizine (ZyrTEC) tablet 10 mg 10 mg, Oral, Nightly, First dose on Wed02/23/25 at 2100, Until Discontinued, Routine 2055 (Given - Provider: Roman Tamez RN) 2036 (Given - Provider: Roman Tamez RN) hydrALAZINE (Apresoline) tablet 37.5 mg 37.5 mg, Oral, Every 8 hours scheduled, First dose on Wed02/24/25 at 0915, Until Discontinued, Routine 0622 (Given - Provider: Crystal Durán)1434 (Given - Provider: Felicitas Weber RN)2100 (Given - Provider: Roman Tamez RN) 0534 (Given - Provider: Roman Tamez RN)1440 (Given - Provider: Felicitas Weber RN)2259 (Given - Provider: Roman Tamez RN) 0515 (Given - Provider: Roman Tamez RN)1404 (Given - Provider: Amber Manning RN) isosorbide dinitrate (Isordil) tablet 20 mg 20 mg, Oral, Every 8 hours scheduled, First dose on 02/24/25 at 0915, Until Discontinued, Routine 0622 (Given - Provider: Crystal Durán)1434 (Given - Provider: Felicitas Weber RN)2100 (Given - Provider: Roman Tamez RN) 0534 (Given - Provider: Roman Tamez RN)1441 (Given - Provider: Felicitas Weber RN)2126 (Given - Provider: Roman Tamez RN) 0515 (Given - Provider: Roman Tamez RN)1404 (Given - Provider: Amber Manning RN) magnesium oxide (Mag-Ox) tablet 400 mg 400 mg, Oral, Daily, First dose on Wed02/26/25 at 0900, Until Discontinued, Routine 1300 (Given - Provider: Felicitas Weber RN) 0839 (Given - Provider: Felicitas Weber RN) 1156 (Given - Provider: Amber Manning RN) methIMAzole (Tapazole) tablet 10 mg 10 mg, Oral, Daily, First dose on Wed02/23/25 at 1350, Until Discontinued, Routine 1302 (Given - Provider: Felicitas Weber RN) 0838 (Given - Provider: Felicitas Weber RN) 1157 (Given - Provider: Amber Manning, CROW) metoprolol succinate XL (Toprol-XL) 24 hr tablet 50 mg 50 mg, Oral, 2 times daily, First dose (after last modification) on Wed02/26/25 at 2100, Until Discontinued, Routine 1300 (Given - Provider: Felicitas Weber RN)2055 (Given - Provider: Roman Tamez RN) 0838 (Given - Provider: Felicitas Weber RN)203 (Given - Provider: Roman Tamez RN) 1157 (Given - Provider: Amber Manning, CROW) mupirocin (Bactroban) 2 % ointment 1 Application (COMPLETED) Each Nostril, 2 times daily, 10 doses, First dose on Wed02/23/25 at 2100, Last dose on Wed02/28/25 at 0900, Routine 1300 (Given - Provider: Felicitas Weber RN)205 (Given - Provider: Roman Tamez RN) 0839 (Given - Provider: Felicitas Weber RN) pantoprazole (Protonix) EC tablet 40 mg 40 mg, Oral, Daily before breakfast, First dose on Wed02/24/25 at 0730, Until Discontinued, Routine 1300 (Given - Provider: Felicitas Weber RN) 0838 (Given - Provider: Felicitas Weber RN) 1157 (Given - Provider: Amber Manning, CROW) sevelamer carbonate (Renvela) tablet 800 mg 800 mg, Oral, 3 times daily with meals, First dose on Wed02/27/25 at 1300, Until Discontinued, Routine 1300 (Given - Provider: Felicitas Weber RN)1725 (Given - Provider: Felicitas Weber RN) 0839 (Given - Provider: Felicitas Weber RN)1227 (Given - Provider: Felicitas Weber, CROW)1722 (Given - Provider: Felicitas Weber RN) 0800 (Not Given - Provider: Amber Manning RN - Reason: Patient in procedure)1159 (Given - Provider: Amber Manning, CROW)1730 (Canceled Entry - Provider: Automatic Discharge Provider - Comment: Automatically canceled at discontinue of medication order) sodium bicarbonate tablet 1,300 mg 1,300 mg, Oral, Daily, First dose on Wed02/23/25 at 1350, Until Discontinued, Routine 1300 (Given - Provider: Felicitas Weber RN) 0838 (Given - Provider: Felicitas Weber RN) 1156 (Given - Provider: Amber Manning RN) sodium chloride 0.9 % flush 10 mL(Linked Group 1) 10 mL, Intravenous, Every 12 hours, First dose on Wed02/23/25 at 1315, Until Discontinued, Routine 0024 (Given - Provider: Crystal Durán)1302 (Given - Provider: Felicitas Weber RN) 0115 (Canceled Entry - Provider: Roman Tamez RN)1304 (Given - Provider: Felicitas Weber RN) 0115 (Canceled Entry - Provider: Roman Tamez RN)1301 (Given - Provider: Amber Manning RN) warfarin (Coumadin) intermittent dosing 1 each Oral, See admin instructions, Starting on Wed03/01/25 at 0916, Until Wed03/01/25 at 1836, Routine warfarin (Coumadin) tablet 5 mg (CANCELED) 5 mg, Oral, Daily, First dose (after last modification) on Wed02/25/25 at 1700, Until Discontinued, Routine 1725 (Given - Provider: Felicitas Weber RN) 1722 (Given - Provider: Felicitas Weber RN) Continuous Medication Order 02/27/2025 02/28/2025 03/01/2025 heparin 25,000 units/250 mL (100 unit/mL) infusion - Adult Full Dose Protocol (CANCELED) 0-35 Units/kg/hr 77.5 kg (0-27.125 mL/hr, rounded to 0-27.1 mL/hr), Intravenous, Titrated, Starting on Wed02/23/25 at 1525, Until Wed03/01/25 at 1047, Routine 0000 (Rate/Dose Verify - Provider: Crystal Durán)0100 (Rate/Dose Verify - Provider: Crystal Durán)0200 (Rate/Dose Verify - Provider: Crystal Durán)0300 (Rate/Dose Verify - Provider: Crystal Durán)0318 (Canceled Entry - Provider: Crystal Durán)0400 (Rate/Dose Verify - Provider: Crystal Durán)0500 (Rate/Dose Verify - Provider: Crystal Durán)0600 (Rate/Dose Verify - Provider: Crystal Durán)0708 (New Bag - Provider: Crystal Durán)0709 (Handoff - Provider: Crystal Durán)0800 (Rate/Dose Verify - Provider: Felicitas Weber RN)1300 (Rate/Dose Verify - Provider: Felicitas Weber RN)1849 (Handoff - Provider: Roman Tamez RN)2220 (New Bag - Provider: Roman Tamez RN) 0706 (Handoff - Provider: Roman Tamez RN)1313 (New Bag - Provider: Thuy Buchanan)1904 (Handoff - Provider: Felicitas Weber RN) 0516 (New Bag - Provider: Roman Tamez RN)0719 (Handoff - Provider: Roman Tamez RN) PRN Medication Order 02/27/2025 02/28/2025 03/01/2025 fluticasone (Flonase) nasal spray 2 spray 2 spray, Each Nostril, Daily PRN, Starting on Wed02/23/25 at 1325, Until Wed03/01/25 at 1836, Routine, allergies prochlorperazine (Compazine) injection 2.5 mg(Linked Group 2) 2.5 mg, Intravenous, Every 6 hours PRN, Starting on Wed02/26/25 at 1018, Until Wed03/01/25 at 1836, Routine, nausea, vomiting prochlorperazine (Compazine) injection 5 mg(Linked Group 2) 5 mg, Intramuscular, Every 6 hours PRN, Starting on Wed02/26/25 at 1018, Until Wed03/01/25 at 1836, Routine, nausea, vomiting prochlorperazine (Compazine) suppository 25 mg(Linked Group 2) 25 mg, Rectal, Every 12 hours PRN, Starting on Wed02/26/25 at 1018, Until Wed03/01/25 at 1836, Routine, nausea, vomiting prochlorperazine (Compazine) tablet 5 mg(Linked Group 2) 5 mg, Oral, Every 6 hours PRN, Starting on Wed02/26/25 at 1018, Until Wed03/01/25 at 1836, Routine, nausea, vomiting sodium chloride 0.9 % flush 10 mL(Linked Group 1) 10 mL, Intravenous, As needed, Starting on Wed02/23/25 at 1309, Until Wed03/01/25 at 1836, Routine, line care sodium citrate anticoagulant 4 % flush 6 mL (CANCELED) 6 mL, Intracatheter, As needed, Starting on Wed02/27/25 at 0850, Until Wed02/27/25 at 1215, STAT, Dialysis, line care, Line care for occlusion DIALYSIS NURSE ONLY 1119 (Given - Provider: Sonia Lucas RN) sodium citrate anticoagulant 4 % flush 6 mL (CANCELED) 6 mL, Intracatheter, As needed, Starting on Wed03/01/25 at 0734, Until Wed03/01/25 at 1115, Routine, Dialysis, line care, Line care for occlusion DIALYSIS NURSE ONLY 1100 (Given - Provid er: Juan Grayson RN) Linked Groups Order Group 1: Insert peripheral IV (COMPLETED) Once, On Wed02/23/25 at 1310, For 1 occurrence And Saline lock IV (COMPLETED) Once, On Wed02/23/25 at 1310, For 1 occurrence And sodium chloride 0.9 % flush 10 mLJump to med 10 mL, Intravenous, Every 12 hours, First dose on Wed02/23/25 at 1315, Until Discontinued, Routine And sodium chloride 0.9 % flush 10 mLJump to med 10 mL, Intravenous, As needed, Starting on Wed02/23/25 at 1309, Until Wed03/01/25 at 1836, Routine, line care Group 2: prochlorperazine (Compazine) tablet 5 mgJump to med 5 mg, Oral, Every 6 hours PRN, Starting on Wed02/26/25 at 1018, Until 03/01/25 at 1836, Routine, nausea, vomiting Or prochlorperazine (Compazine) suppository 25 mgJump to med 25 mg, Rectal, Every 12 hours PRN, Starting on Wed02/26/25 at 1018, Until Marisa 03/01/25 at 1836, Routine, nausea, vomiting Or prochlorperazine (Compazine) injection 2.5 mgJump to med 2.5 mg, Intravenous, Every 6 hours PRN, Starting on Wed02/26/25 at 1018, Until Marisa 03/01/25 at 1836, Routine, nausea, vomiting Or prochlorperazine (Compazine) injection 5 mgJump to med 5 mg, Intramuscular, Every 6 hours PRN, Starting on Wed02/26/25 at 1018, Until Marisa 03/01/25 at 1836, Routine, nausea, vomiting documented in this encounter Additional Health Concerns Assessment Noted Time PHQ-9 Depression Total Score: 5 06/15/20 2:55 PM EST A fall risk assessment has been complete d for the patient 02/01/2025 2:01 PM EDT A Body Mass Index follow-up plan has been documented for the patient 03/01/2025 4:12 PM EDT documented as of this encounter Care Teams Can Filling And Closing Machine Tender Relationship Specialty Start Date End Date Az David MD [address] [phone] PCP - General 03/22/23 documented as of this encounter
--- OUTSIDE RECORDS SUMMARY | 2025-03-08 15:20 | XMS_ITS | Encounter Summary ---
Author Organization Healthcare Address [address] [place] [address] Care Team Providers Care Decision Science Analyst Name Role Phone Az David MD Primary Care Provider + [phone] Reason for Referral * Consultation (Routine) - Authorized Specialty Diagnoses / Procedures Referred By Adalgisa hutchins Referred To Contact Diagnoses NICM (nonischemic cardiomyopathy) (CMS/HCC) Hollie Arroyo APRN [address] [place] [address] Phone: tel: fax: Referral ID Status Reason Start Date Expiration Date V isits Requested Visits Authorized [id number] Authorized 03/08/2025 09/07/2026 1 1 Encounter Details Date Type Department Care Team (Late st Contact Info) Description 03/08/2025 3:20 PM EDT Office Visit [facility] Jorge A [address] [facility] [place] [address] Lenore Cosme MD [address] [place] [address] NICM (nonischemic cardiomyopathy) (CMS/HCC) (Primary Dx) Social History Tobacco Use Types Packs/Day Years Used Date Smoking Tobacco: Former Cigarettes Q uit: 2020 Smokeless Tobacco: Never Tobacco Cessation:Counseling Given: Not Answered Alcohol Use Standard Drinks/Week Comments Not Currently [...] any time in the past 12 m [facility], were you homeless or living in a usp (including now)? 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 0 03/23/2023 CAGE Questionnaire Score 0 023 Utilities Answer Date Recorded In the past 12 months has th demandmart, gas, oil, or water company threatened to shut off services in your home? No 02/26/2025 Comments No Sex and Gender Information Value Date Recorded Sex Assigned at Not on file Legal Sex Female 8:12 PM EDT Gender Identity Not on file Sexual Orientation Not on file documented as of this encounter Last Filed Vital Signs Vital Sign Reading Time Taken Comments Blood Pressure 151/99 03/08/2025 4:07 PM EDT rep eat bp Pulse 80 03/08/2025 4:07 PM EDT Temperature - - Respiratory Rate - - Oxygen Saturation 98% 03/08/2025 4:07 PM EDT Inhaled Oxygen Concentration - - Weight 80.6 kg (177 lb 11.1 oz) 03/08/2025 3:59 PM EDT Height 167.6 cm (5' 6 ) 03/08/2025 3:59 PM EDT Body Mass Index 28.68 03/08/2025 3:59 PM EDT documented in this encounter Functional Status * Does this person have serious difficulty walking or climbing stairs? Answer Date of Assessment Author No 07/15/2023 4:16 PM EST * Over the past 2 weeks, how often have you been bothered by any of the following problems? Question Answer Date of Assessment Author Little interest or pleasure in doing things Not at all 03/08/2025 4:06 PM EDT Zaira Hogue, SUPERVISOR PHOTOENGRAVING * Question Answer Date of Assessment Author Trouble falling or staying asleep, or sleeping too much Not at all 03/08/2025 4:06 PM EDZaira Mirza CNA Feeling tired or having little energy Not at all 03/08/2025 4:06 PM EDT Zaira Hogue CNA Poor appetite or overeating Not at all 03/08/2025 4: 06 PM SONDRAT Zaira Hogue CNA Feeling bad about yourself - or that you are a failure or have let yourself or your family down Not at all 03/08/2025 4:06 PM EDT Zaira Hogue CNA Trouble concentrating on things, such as reading the newspaper or watching television Not at all 03/08/2025 4:06 PM EDT Zaira Hogue CNA Moving or speaking so slowly that other people could have noticed? Or the opposite - being so fidgety or restless that you have been moving around a lot more than usual. Not at all 03/08/2025 4:06 PM EDT Zaira Hogue CNA Thoughts that you would be better off or hurting yourself in some way Not at all 03/08/2025 4:06 PM SONDRAT Zaira Hogue CNA * How difficult have these problems made it for you to do your work, take care of things at home, or get along with other people? Answer Date of Assessment Author Not difficult at all 03/08/2025 4:06 PM EDT Zaira Spring CNA documented as of this encounter Miscellaneous Notes * Patient Instructions - Anh Murray RN - 03/08/2025 3:20 PM EDT Please call Anh at [phone] with any questions or concerns. Please double your bidil and please call if using Metolazone does not help with your swelling. We will keep your upcoming appointment. * Progress Notes - Hollie Arroyo, MOTION STUDY ANALYST - 03/08/2025 3:20 PM EDT Images from the original note were not included. Advanced Heart Failure Follow Up Corrie Stiles is a 54 y.o. female who presents for hospital discharge follow- up of HFrEF due to NICM. Prior Cardiac and Medical History The patient's past cardiac and medical history is notable for HFrEF due to NICM, severe MR s/p MV repair (2019) followed by mechanical MV replacement (2019), CAD s/p RUBEN to LAD (2020), ICD-in place (2020), PAF and ESRD transitioned from PD to HD. PD was discontinued due to abscess. During her initial visit in the heart failure clinic, Ms. Stiles was markedly volume overloaded and was directly admitted to CA4 service. She was diuresed and initiated on HD and medical therapy was optimized with significant improvement in functional status. With optimization of medical therapy,LV size had improved (30-35%). During re-evaluation for potential renal transplant candidacy she was found to have abnormal function of mechanical mitral valve with elevated gradients, MR, severely reduced LVEF at ~20% and new development of RV dilation/dysfunction, mod TR and PH. A RIA was scheduled for better visualization of her mitral valve but prior to this she began having worsening dyspneachest pressure. She presented to the ED 05/24/2024 and was admitted for chronic HF exacerbation in the setting of uncontrolled a-fib/flutter with rates as high as 140 bpm. A TTE was performed with hopes of DCCV however a thrombus was visualized on her mitral valve and the procedure ws aborted. Prior to her admission she mentioned not being able to tolerate her medications including her warfarin secondary to nausea. She remained in atrial fibrillation with RVR despite beta evan therapy. EP evaluated her and decided to pursue BIV upgrade and AV yared ablation, Interval She presented to ED 02/23/25 for BARNES, shortness of breath, and orthopnea . Prior to admission HD stopped early due to cramping. worsening symptoms with decreased fluid removal during iHD session. Patient was getting 3L fluid removal in beginning of her iHD session; however she started to experience cramping that limited toleration of more than 2L. -Patient has a Wednesday, Wednesday, Wednesday chair outpatient for HD . Since her discharge she feels like she is still retaining fluid and is not getting enough off with dialysis.. she is taking po diuretics, Bumex 3mg bID on non dialysis days. 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 Her labs are followed closely by nephrology., k 4.3 at discharge. Potassium supplement was d/c'd by dialysis clinic. Denies chest pain, palpitations, lightheadedness, dizziness, syncope, and orthopnea. Follows with the coumadin clinic Review of symptoms 14 Point ROS reviewed and is otherwise [...] Medications Current Medications[3] Physical Exam Constitutional: Appearance: Normal appearance. Cardiovascular: Rate and Rhythm: Normal rate and regular rhythm. Heart sounds: +MVR click Neck: + JVD Pulmonary: Effort: Pulmonary effort is normal. Breath sounds: Normal breath sounds. Abdominal: Palpations: Abdomen is distended Skin: General: Skin is warm and dry. Neurological: General: No focal deficit present. Mental Status: Alert and oriented to person, place, and time. Psychiatric: Mood and Affect: Mood normal. Behavior: Behavior normal. Extremities: tr edema Fistula in RUE, no thrill or bruit noted Has HD port in R CW Visit Vitals BP (!) 151/99 Comment: repeat bp Pulse 80 Ht 1.676 m (5' 6 ) Wt 80.6 kg (177 lb 11.1 oz) SpO2 98% BMI 28.68 kg/m?? DIAGNOSTIC STUDIES - EKG (04/16/2023): NSR, nonspecific TWI Echocardiograms TTE 02/01/25 Left Ventricle: The left ventricle is dilated. There is eccentric hypertrophy. No leftventricular mass or thrombus is seen. The LVEF as measured by biplane volume is 22%. The calculatedcardiac index based on LVOT Doppler technique is normal. Unable to assess diastolic function due tomitral valve surgery. There is global hypokinesis of the left ventricle. See diagram below for wallmotion findings. Right Ventricle: The right ventricle is dilated. A catheter/lead is present in the right ventricle.The right ventricular systolic function is reduced. Mitral [...] Tricuspid Valve: There is severe tricuspid regurgitation. - RIA (May 2024): LVEF 20-25%, Dilated RV. Moderately reduced RV function. Echogenic mass extending along the mitral valve prosthetic ring consistent with a thrombus. - TTE (Sep 2023): LVEDD 5.5 cm, LVEF 30-35%, RV: Normal size, normal function, tilting disc mechanical MV valve with 3 mmHg gradient, mild TR - TTE (March 2023): LVEDD 6.7 cm, LVEF <20%, RV: Moderately dilated, moderately reduced function, unable to assess MR due to mechanical valve, severe TR - TTE (January 2023): LVEDD 6.9 cm, LVEF 15-20%, RV: Mildly dilated with reduced systolic function , bileaflet, tilting-disc MVR with normal leaflet motion and moderate pannus formation. Peak PG 18 mmHg; Mean PG 8 mmHg. Inflow velocity is elevated suggesting possible significant regurgitation and/or stenosis, severe TR -TTE (04/24/24): Cardiac catheterizations - [facility] (02/2021): LMCA: LAD: mild plaque proximal LAD, severe fibrous mid LAD (90% stenosis). Tx w/ 3.5 x 28 Xience RUBEN LCx: No angiographic atherosclerosis RCA: Mild luminal irregularities only Labs Lab Results Component Value Date HGB 10.1 (L) 03/01/2025 HCT 32.6 (L) 03/01/2025 PLT 166 03/01/2025 CHOL ORDERED ERRONEOUSLY BY LAB. [facility]. 09/03/2017 TRIG ORDERED ERRONEOUSLY BY LAB. [facility]. 09/03/2017 HDL ORDERED ERRONEOUSLY BY LAB. [facility]. 09/03/2017 LDLCALC ORDERED ERRONEOUSLY BY LAB. [facility]. 09/03/2017 ALT 12 02/23/2025 AST 18 02/23/2025 NA 136 03/01/2025 K 4.3 03/01/2025 CREATININE 3.84 (H) 03/01/2025 BUN 41 (H) 03/01/2025 CO2 22 03/01/2025 TSH 18.70 (H) 11/16/2024 INR 2.20 (A) 03/08/2025 HGBA1C 6.2 (H) 03/23/2023 BNP 41,068 (H) 02/23/2025 Assessment and Plan HFrEF due to NICM -NYHA Class II -appears compensated on exam, but has some excess volume , continue with the bUmex 3mg BID and HD MWF -s/p ICD (2020), upgrade to BIV ICD 05/2024 -GDMT: toprol 100 mg BID -No IVA/ARB/ARNI/SGLT2 d/t ESRD -Will increase Bidil 20-37.5 mg 2 pills TID, add Metolazone 5 mg tonight and on days when abdomen is distended and shortness of breath increased. Aware to not take on dialysis days. -re-evaluation of LVEF 20%. RVEF depressed , severe TR , needs to be diuresed more efficiently but not tolerating due to cramping Severe MR -s/p MV repair (2019) followed by mechanical MV replacement (2019) -well seated per RIA 05/2024 -mitral valve thrombus noted on RIA 05/2024 -anticoagulated on warfarin, following with [facility], Advised re the importance ofclose follow up of her INR. -denies s/s of bleeding CAD -s/p RUBEN to LAD (2020) -denies recurrent angina -on ASA and statin PAF -s/p BiV ICD with AV yared ablation with 05/2024 -h/o amiodarone thyrotoxicosis -following with Dr. Ramirez, still having afib noted on device but BiV pacing is > 92% ESRD on HD now as she developed an abscess with the PD A total time of 40 minutes was spent by MD and CASSIDY addressing the current illness, reviewing records (prior imaging, lab work, etc), and formulating a plan. The patient is agreeable to the plan and all pertinent questions were answered. Patient was seen and assessed in collaboration with Dr. Cosme who agrees with the above plan of care. Previously Dr Cosme discussed with Mrs Stiles she is not a candidate for renal Txp as her heart function is too poor. Nor for H/K transplant, she has had 2 sternotomies, as well as some compliance issues. She stated she understood. Follow up in 6 months Hollie Arroyo, MOTION STUDY ANALYST 03/08/25 [1] Past Medical History: Diagnosis Date CHF (congestive heart failure) ([facility]) Chronic kidney disease COPD (chronic obstructive pulmonary disease) (CMS/HCC) Coronary artery disease ESRD (end stage renal disease) ([facility]) Hyperlipidemia Hypertension Myocardial infarction ([facility]) [2] Past Surgical History: Procedure Laterality Date AV FISTULA PLACEMENT Right CARDIAC CATHETERIZATION CARDIAC DEFIBRILLATOR PLACEMENT CARDIAC VALVE REPLACEMENT CORONARY ANGIOPLASTY CORONARY STENT PLACEMENT HYSTERECTOMY INSERT / REPLACE / REMOVE PACEMAKER MITRAL VALVE REPLACEMENT [3] Current Outpatient Medications Medication Sig Dispense Refill [...] every night. 30 tablet 3 bumetanide (Bumex) 1 MG tablet Take 3 tablets by mouth 2 times a day. Please take 3 mg twice daily on your NON dialysis days (Wednesday//Wednesday/Wednesday) 180 tablet 11 calcitriol (Rocaltrol) 0.5 MCG capsule Take 1 [...] mouth 3 times a day. 90 tablet 11 magnesium oxide (Mag-Ox) 400 (240 Mg) MG tablet Take 1 tablet by mouth daily. 30 tablet 11 methIMAzole (Tapazole) 10 MG tablet Take 1 tablet (10 mg) by mouth 1 (one) time each day. 30 tablet0 metoprolol succinate XL (Toprol-XL) 50 MG 24 hr tablet Take 1 tablet by mouth 2 times a day. Do notcrush or chew. 60 tablet 11 pantoprazole (Protonix) 40 MG EC tablet Take 1 tablet by mouth daily before breakfast. Do not crush, chew, or split. potassium chloride CR (Klor-Con M20) 20 MEQ ER tablet Take 1 tablet by mouth daily as needed (take with bumex on NON dialysis days). Do not crush or chew. Please only take on Wednesday//Wednesday/Wednesday on your NON Dialysis days 30 tablet 11 senna (Senokot) 8.6 MG tablet Take 2 tablets by mouth nightly. 180 tablet 3 sodium bicarbonate 650 MG tablet Take 2 tablets (1,300 mg) by mouth 1 (one) time each day. 30 tablet 3 Velphoro 500 MG chewable tablet Chew 1 tablet 3 (three) times a day. warfarin (Coumadin) 4 MG tablet Take 1 tablet by mouth daily. Please take 4 mg every day starting Wednesday03/02/2025 30 tablet 11 polyethylene glycol (Miralax) 17 g packet Take 17 g by mouth 2 times a day. (Patient not taking: Reported on 03/08/2025) 180 packet 3 No current facility-administered medications for this visit. documented in this encounter Plan of Treatment Upcoming Encounters Date Type Department Care Team (Late st Contact Info) Description 05/24/2025 1:40 PM EST Office Visit [facility] [place] [address] [facility] [id number] Lenore Cosme MD [address] [place] [address] 08/02/2025 1:40 PM EST Office Visit [facility] [place] [address] [facility] [phone] Lenore Cosme MD [address] [place] [address] Scheduled Referrals Name Type Priority Associated Diagnoses Order Schedule Follow Up Cardiology Outpatient Referral Routine NICM (nonischemic cardiomyopathy) (CMS/HCC) Expected: 06/08/2025, Expires: 09/08/2026 documented as of this encounter Visit Diagnoses Diagnosis NICM (nonischemic cardiomyopathy) (CMS/HCC)- Primary documented in this encounter Additional Health Concerns Assessment Noted Time PHQ-9 Depression Total Score: 5 06/15/20 24 2:55 PM EST A fall risk assessment has been complete d for the patient 03/08/2025 4:06 PM EDT A Body Mass Index follow-up plan has been documented for the patient 03/08/2025 4:53 PM EDT documented as of this encounter Care Teams Decision Science Analyst Relationship Specialty Start Date End Date Az David MD [address] [place] [address] PCP - General 03/22/23 documented as of this encounter
--- OUTSIDE RECORDS SUMMARY | 2025-03-14 11:00 | XMS_ITS | Encounter Summary ---
Author Organization [employer] ([place], [place], [place], [place]) Address [address] [place] [address] Care Team Providers Care Data Librarian Name Role Phone MonroeFélix APRN Primary Care Provider [phone] Reason for Visit * Reason Comments Establish Care Consult abdominal di alysis was removed due to abscess Encounter Details Date Type Department Care Team (Late st Contact Info) Description 03/14/2025 11:00 AM EDT Office Visit [facility] [address] [place] [address] [place], [place] [address] [place] [address] [place] [address] [address] [place] [address] ESRF (end stage renal failure) (HCC) (Primary Dx); Cardiomyopathy, dilated (HCC) Social History Tobacco Use Types Packs/Day Years Used Date Smoking Tobacco: Former Cigarettes Q uit: 08/29/2019 Smokeless Tobacco: Never Alcohol Use Standard Drinks/Week Comments Never 0 (1 standard drink = 0.6 oz pur e alcohol) PRAPARE - Transportation Answer Date Re corded In the past 12 months, has l ack of transportation kept you from medical appointments or from getting medications? No 03/05/2023 Lack of Transportation (Non-Medical) Not on file 03/05/2023 Family and Community Support Answer [place] e Recorded Help with Day to Day Activities Not on file 07/30/2023 Feeling Lonely or Isolated Not on file 07/30 Educational Attainment Answer Date Josias rded Speak language other than Kuwaiti at home Not on file 07/30/2023 Want help with school or training Not on file 07/30/2023 Substance Use Answer Date Recorded Used prescription meds for non-medical reasons N ot on file 07/30/2023 Used illegal drugs past 12 months Not on file 07/30/2023 Comments Unknown Sex and Gender Information Value Date Recorded Sex Assigned at Not on file Legal Sex Female 6:53 PM CDT Gender Identity Not on file Sexual Orientation Not on file documented as of this encounter Last Filed Vital Signs Vital Sign Reading Time Taken Comments Blood Pressure 125/66 03/14/2025 11:24 AM EDT Pulse 81 03/14/2025 11:24 AM EDT Temperature - - Respiratory Rate - - Oxygen Saturation 95% 03/14/2025 11:24 AM EDT Inhaled Oxygen Concentration - - Weight 74.8 kg (165 lb) 03/14/2025 11:24 AM EDT Height 167.6 cm (5' 6 ) 03/14/2025 11:24 AM EDT Body Mass Index 26.63 03/14/2025 11:24 AM EDT documented in this encounter Progress Notes * Bill Graham MD - 03/14/2025 11:00 AM EDT Subjective: No chief complaint on file. Corrie Stiles is a 54 y.o. female referred by nephrology for PD catheter placement. Was previously on peritoneal dialysis for 2 years but developed extensive intra-abdominal abscess patient intermittently requiring removal of her catheter and extensive antibiotic therapy. Currently on hemod ialysis through right chest wall catheter. Prior failed AV fistulas. Review of Systems Constitutional: Positive for fatigue. Respiratory: Positive for shortness of breath. \ Objective: BP 125/66 (BP Location: Right arm, Patient Position: Sitting, Cuff Size: Adult) Pulse 81 Ht 1.676 m (5' 6 ) Wt 74.8 kg (165 lb) SpO2 95% BMI 26.63 kg/m?? Physical Exam Abdomen soft. [place] for a lap band situated in the right upper abdominal wall. Scarring from prior PD catheter in the left lateral abdominal wall. Assessment: Assessment 1. ESRF (end stage renal failure) (HCC) 2. Cardiomyopathy, dilated (HCC) Patient referred for placement of a PD catheter. I reviewed records from [facility]. A few months ago she had multiple intra-abdominal abscesses related to her prior PD catheter whichwas subsequently removed. A follow-up CT scan in January showed some resolution of this process. Will need to repeat a CT scan for further evaluation, but it seems unlikely that she will have a peritoneal cavity suitable for peritoneal dialysis given the degree of infection she had just a few months ago. She also has a significant cardiomyopathy with an EF of only 20%. Plan: Will arrange for an outpatient CT of the abdomen and pelvis with oral contrast only. After review of outside records, it seems unlikely she will be a suitable candidate for peritoneal dialysis in the near future. documented in this encounter Plan of Treatment Upcoming Encounters Date Type Department Care Team (Late st Contact Info) Description 04/12/2025 7:30 AM EDT Hospital Encounter [facility] Operating Room [address] [place] [address] Bill Graham MD [address] [place] [address] [address] 04/12/2025 7:30 AM EDT Anesthesia Event [facility] Operating Room 1 [place] [address] Lucio Szymanski MD [address] [place] [address] 04/12/2025 7:30 AM EDT - 04/12/2025 8:55 AM EDT Surgery [facility] Operating Room 1 [place] [address] Bill Graham MD [address] [place] [address] [address] (LAPAROSCOPIC PERITONEAL DIALYSIS CATHETER INSERTION) Scheduled Procedures Name Priority Associated Diagnoses Date/Ti me LAPAROSCOPY, WITH PERITONEAL DIALYSIS CATHETER INSERTION Chronic kidney disease, stage V (HCC) 04/12/2025 7:30 AM EDT documented as of this encounter Visit Diagnoses Diagnosis ESRF (end stage renal failure) (HCC)- Primary End stage renal disease Cardiomyopathy, dilated (HCC) Chronic kidney disease, stage V (HCC) Chronic kidney disease, Stage V documented in this encounter Care Teams Data Librarian Relationship Specialty Start Date End Date Félix Monroe, GLAZE MIXER [address] [place] [address] PCP - General Nurse Practitioner 08/25/22 documented as of this encounter
--- OUTSIDE RECORDS SUMMARY | 2025-03-20 07:44 | XMS_ITS | Encounter Summary ---
Author Organization Healthcare Address [address] [place] [address] Care Team Providers Care Retail Route Supervisor Name Role Phone Az David MD Primary Care Provider [phone] Encounter Details Date Type Department Care Team (Latest Contact Info) Description 03/20/2025 7:44 AM EDT - 03/20/2025 11:59 PM EDT Hospital Encounter [facility] [address] [place] [address] Biventricular ICD (implantable cardioverter-defibril lator) in place Discharge Disposition: Home or Self Care Social [...] any time in the past 12 m [facility], were you homeless or living in a care home (including now)? 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 Answer Date of Assessment Author No 07/15/2023 4:16 PM EST documented as of this encounter Medications at [...] dialysis days (Wednesday/ y/Wednesday/ y) 180 tablet 03/01/2025 calcitriol (Rocaltrol) 0.5 MCG capsule Take [...] 200 mg into a venous catheter. 10/26/2024 isosorbide-hydrAL AZINE (BiDil) 20-37.5 MG tablet Take 2 tablets by mouth 3 times a day. 180 tablet 03/08/2025 magnesium oxide (Mag-Ox) 400 (240 Mg) MG tablet Take 1 tablet by mouth daily. 30 tablet 11 03/02/2025 metOLazone (Zaroxolyn) 5 MG tablet Take 1 tablet by mouth as needed (for increased weight, abdominal swelling, on non dialysis days). 20 tablet 03/08/2025 metoprolol succinate XL (Toprol-XL) 50 MG 24 [...] day starting Wednesday03/02/2025 30 tablet 11 03/01/2025 6 documented as of this encounter Plan of Treatment Upcoming Encounters Date Type Department Care Team (Late st Contact Info) Description 05/24/2025 1:40 PM EST Office Visit [facility] [address] [address] Lenore Cosme MD [address] [place] [phone] 08/02/2025 1:40 PM EST Office Visit [facility] [address] [address] Lenore Cosme MD [address] [place] [id number] documented as of this encounter Procedures Procedure Name Priority Date/Time Associated Diagnosis Comments CARDIAC DEVICE CHECK - REMOTE - ICD Routine 03/20/2025 7:46 AM EDT Biventricular ICD (implantable cardioverter-defibr illator) in place documented in this encounter Results * CARDIAC DEVICE CHECK - REMOTE - ICD (03/20/2025 7:46 AM EDT) Anatomical Region Laterality Modality Other Narrative 03/20/2025 12:30 PM EDT [facility] - [facility] Remote CIED Report Name: Corrie Stiles Date: 03/20/2025 : 1970 Age: 54 y.o. Viewing Cardiology Provider: Connor Iverson APRN, DNP Reporting period: Reporting period is the last 91 days, with at least 30 days of remote monitoring. Interim reports, if any, reviewed and addressed previously; see remote alert entries for more details. 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 See full report in media Pacing Percentage: RA 0 % RV 93 % BIV 93 % Battery: ANTHONY Presenting rhythm: AF with BiV pacing. Known AF, on Warfarin. Evaluation: Demonstrates appropriate sensing: Yes Demonstrates pacing capture: Yes Arrhythmias: No new arrhythmia of significance since last CIED evaluation. Summary: CIED functioning as expected, with given programming and data. See full report in Media. Marilyn Pedro Pablo Iverson APRN CV IMPLANTABLE CARDIAC DEV ICE PROCEDURES Final Result documented in this encounter Visit Diagnoses Diagnosis Biventricular ICD (implantable cardioverter-defibrillator) in place documented in this encounter Additional Health Concerns Assessment Noted Time PHQ-9 Depression Total Score: 5 06/15/20 24 2:55 PM EST A fall risk assessment has been complete d for the patient 03/08/2025 4:06 PM EDT A Body Mass Index follow-up plan has been documented for the patient 03/20/2025 11:26 AM EDT documented as of this encounter Care Teams Retail Route Supervisor Relationship Specialty Start Date End Date Az David MD [address] [place] [address] PCP - General 03/22/23 documented as of this encounter
--- OUTSIDE RECORDS SUMMARY | 2025-03-20 13:37 | XMS_ITS | Encounter Summary ---
Author Organization [employer] ([place], [place], [place], [place]) Address [address] [place] [address] Care Team Providers Care Industrial Pharmacist Name Role Phone Félix Monroe APRN Primary Care Provider [phone] Reason for Referral * CAT Scan (Routine) - Closed Specialty Diagnoses / Procedures Referred By Contac t Referred To Contact Radiology Diagnoses Other infectious disease Procedures CT ABDOMEN/PELVIS WITHOUT IV CONTRAST Standard Protocol Bill Graham MD [address] [place] [address] [place] [address] Phone: tel: fax: [facility] [address] [place] [address] [address] Phone: tel: fax: Referral ID Status Reason Start Date Expiration Date Visits Re quested Visits Authorized [id number] Closed 03/19/2025 03/19/2026 1 1 Reason for Visit * CAT Scan (Routine) - Closed Specialty Diagnoses / Procedures Referred By Contac t Referred To Contact Radiology Diagnoses Other infectious disease Procedures CT ABDOMEN/PELVIS WITHOUT IV CONTRAST Standard Protocol Bill Graham MD [address] [place] [address] [address] [place] [address] Phone: tel: fax: [facility] [address] [place] [address] [address] Phone: tel: fax: Referral ID Status Reason Start Date Expiration Date Visits Re quested Visits Authorized [id number] Closed 03/19/2025 03/19/2026 1 1 Encounter Details Date Type Department Care Team (Late st Contact Info) Description 03/20/2025 1:37 PM EDT - 03/20/2025 11:59 PM EDT Hospital Encounter [facility] [address] [facility] [address] [place] [address] Bill Graham MD [address] [facility] [address] [place] [address] Other infectious disease Discharge Disposition: Home or Self Care Social [...] Date Josias rded Speak language other than Gabonese at home Not on file 07/30/2023 Want [...] on file documented as of this encounter Medications at Time of Discharge acetaminophen (TYLENOL) 500 MG tablet Take 2 tablets (1,000 mg total) by mouth every 6 (six) hours as needed for pain or fever. albuterol HFA (VENTOLIN HFA) 90 mcg/actuation inhaler Inhale 2 puffs by mouth every 6 (six) hours as needed for wheezing. 06/25/2022 aMILoride (MIDAMOR) 5 MG tablet Take 1 tablet (5 mg total) by mouth daily. aspirin 81 MG EC tablet Take 1 tablet (81 mg total) by mouth daily. atorvastatin (LIPITOR) 40 MG tablet Take 1 tablet (40 mg total) by mouth nightly. bumetanide (BUMEX) 1 MG tablet Take 1 tablet (1 mg total) by mouth daily as needed (edema). 02/27/2023 calcitRIOL (ROCALTROL) 0.5 MCG capsule Take 1 capsule (0.5 mcg total) by mouth 3 (three) times a week WED/WED/WED. cetirizine (ZyrTEC) 10 MG tablet Take 1 tablet (10 mg total) by mouth daily. fluticasone propionate (FLONASE) 50 mcg/actuation nasal spray Administer 2 sprays into affected nostril(s) daily as needed for rhinitis. 06/25/2022 iron sucrose complex (IRON SUCROSE IV) Infuse 200 mg into a venous catheter Wed//Wed during dialysis. isosorbide-hydrala zine (BIDIL) 20-37.5 mg per tablet Take 1 tablet by mouth 3 (three) times daily. magnesium oxide (MAG-OX) 400 mg (241.3 mg magnesium) tablet Take 1 tablet (400 mg total) by mouth 2 (two) times daily F/u with nephrology for refills. 60 tablet 02/27/2023 metOLazone (ZAROXOLYN) 5 MG tablet Take 1 tablet (5 mg total) by mouth daily as needed ///Wednesday. metoprolol succinate (TOPROL-XL) 50 MG 24 hr tablet Take 1 tablet (50 mg total) by mouth 2 (two) times daily. pantoprazole (PROTONIX) 40 MG tablet Take 1 tablet (40 mg total) by mouth Daily (0600). rOPINIRole (REQUIP) 4 MG tablet Take 1 tablet (4 mg total) by mouth nightly. 07/23/2022 sodium bicarbonate 650 mg tablet Take 2 tablets (1,300 mg total) by mouth 2 (two) times daily. sucroferric oxyhydroxide (Velphoro) 500 mg chewable tablet Take 1 tablet (500 mg total) by mouth 3 (three) times daily as needed. warfarin (COUMADIN) 4 MG tablet Take 1 tablet (4 mg total) by mouth daily. methIMAzole (TAPAZOLE) 10 MG tablet Take 1 tablet (10 mg total) by mouth daily. 5 sennosides (SENOKOT) 8.6 mg tablet Take 2 tablets (17.2 mg total) by mouth nightly. 5 documented as of this encounter Plan of Treatment Upcoming Encounters Date Type Department Care Team (Late st Contact Info) Description 04/12/2025 7:30 AM EDT Hospital Encounter [facility] Operating Room [address] [place] [address] Bill Graham MD [address] [place] [address] 04/12/2025 7:30 AM EDT Anesthesia Event [facility] Operating Room [address] [place] [address] Lucio Szymanski MD [address] [place] [address] 04/12/2025 7:30 AM EDT - 04/12/2025 8:55 AM EDT Surgery [facility] Operating Room [address] [place] [address] Bill rGaham MD [address] [place] [address] (LAPAROSCOPIC PERITONEAL DIALYSIS CATHETER INSERTION) Scheduled Procedures Name Priority Associated Diagnoses Date/Ti me LAPAROSCOPY, WITH PERITONEAL DIALYSIS CATHETER INSERTION Chronic kidney disease, stage V (HCC) 04/12/2025 7:30 AM EDT documented as of this encounter Procedures Procedure Name Priority Date/Time Associated Diagnosis Comments CT ABDOMEN/PELVIS WITHOUT IV CONTRAST Routine 03/20/2025 2:29 PM EDT Other infectious disease documented in this encounter Results * CT ABDOMEN/PELVIS WITHOUT IV CONTRAST Standard Protocol (03/20/2025 2:29 PM EDT) Anatomical Region Laterality Modality Abdomen, Pelvis Computed Tomogra phy (CT) 03/20/2025 3:28 PM EDT Impressions 03/20/2025 4:34 PM EDT 1. No evidence of intra-abdominal or abdominal wall abscess. 2. Left lower quadrant mass, probably corresponding to the ovary. Follow-up ultrasound or contrast-enhanced CT is recommended. Images reviewed, interpreted, and dictated by Dr. Ramy Andino. Transcribed by Chauncey Cosby PA-C. Narrative 03/20/2025 4:[address] SCAN OF ABDOMEN AND PELVIS WITHOUT CONTRAST HISTORY: Abdominal abscess. PROCEDURE: Axial images were obtained from the lung bases to the pubic symphysis by computed tomography. This study was performed with techniques to keep radiation doses as low as reasonably achievable, (ALARA). Individualized dose reduction techniques using automated exposure control or adjustment of mA and/or kV according to the patient size were employed. FINDINGS: ABDOMEN: The lung bases are clear. The heart size is normal. The limited noncontrast images of the liver are normal. There are postoperative changes of gastric banding surgery. There is no bowel obstruction. The spleen is normal. No adrenal masses are seen. There is severe calcific plaque disease of the aorta and branch vessels. There is no significant free fluid or adenopathy. There is no nephrolithiasis or hydronephrosis. There are no fluid collections of the abdominal manzo, as described on outside CT reports. PELVIS: The appendix is not identified. There is a low-density mass in the left adnexa adjacent to the sigmoid colon. This is best seen on axial images 75 through 77. This is likely corresponding to an enlarged left ovary, measuring up to 41 x 25 mm. The patient is status post hysterectomy. The urinary bladder is unremarkable. There is no significant fluid or adenopathy. Procedure Note Ramy Andino MD - 03/20/2025 CT SCAN OF ABDOMEN AND PELVIS WITHOUT CONTRAST HISTORY: Abdominal abscess. PROCEDURE: Axial images were obtained from the lung bases to the pubic symphysis by computed tomography. This study was performed with techniques to keep radiation doses as low as reasonably achievable, (ALARA). Individualized dose reduction techniques using automated exposure control or adjustment of mA and/or kV according to the patient size were employed. FINDINGS: ABDOMEN: The lung bases are clear. The heart size is normal. The limited noncontrast images of the liver are normal. There are postoperative changes of gastric banding surgery. There is no bowel obstruction. The spleen is normal. No adrenal masses are seen. There is severe calcific plaque disease of the aorta and branch vessels. There is no significant free fluid or adenopathy. There is no nephrolithiasis or hydronephrosis. There are no fluid collections of the abdominal manzo, as described on outside CT reports. PELVIS: The appendix is not identified. There is a low-density mass in the left adnexa adjacent to the sigmoid colon. This is best seen on axial images 75 through 77. This is likely corresponding to an enlarged left ovary, measuring up to 41 x 25 mm. The patient is status post hysterectomy. The urinary bladder is unremarkable. There is no significant fluid or adenopathy. IMPRESSION: 1. No evidence of intra-abdominal or abdominal wall abscess. 2. Left lower quadrant mass, probably corresponding to the ovary. Follow-up ultrasound or contrast-enhanced CT is recommended. Images reviewed, interpreted, and dictated by Dr. Ramy Andino. Transcribed by Chauncey Cosby PA-C. Bill Graham MD [facility] ORDERABLES Final Result documented in this encounter Visit Diagnoses Diagnosis Other infectious disease Chronic kidney disease, stage V (HCC) Chronic kidney disease, Stage V documented in this encounter Care Teams Industrial Pharmacist Relationship Specialty Start Date End Date Félix Monroe, COMMERCIAL PEST CONTROL TECHNICIAN [address] [place] [address] PCP - General Nurse Practitioner 08/25/22 documented as of this encounter
--- OUTSIDE RECORDS SUMMARY | 2025-03-30 08:48 | XMS_ITS | Encounter Summary ---
Author Organization [facility] ([place], [place], [place], [place]) Address [address] [place] [address] Care Team Providers Care Change Coordinator Name Role Phone Félix Monroe APRN Primary Care Provider [phone] Reason for Referral * Diagnostic X-Ray (Routine) - New Request Specialty Diagnoses / Procedures Referred By Adalgisa hutchins Referred To Contact Radiology Diagnoses Preop testing Procedures X-ray chest PA and lateral Bill Graham MD [address] [place] [address] [address] [place] [address] Phone: tel: fax: Referral ID Status Reason Start Date Expiration Date V isits Requested Visits Authorized [id number] New Request 03/30/2025 03/30/2026 1 1 Reason for Visit * Auth/Cert (Routine) Specialty Diagnoses / Procedures Referred By Adalgisa hutchins Referred To Contact Diagnoses Chronic kidney disease, stage V (HCC) Chronic kidney disease, stage V (HCC) Procedures HI LAPS INSERTION TUNNELED INTRAPERITONEAL CATHETER LAPAROSCOPY, WITH PERITONEAL DIALYSIS [place] [address] [place] [address] [address] [place] [address] Phone: tel: fax: Referral ID Status Reason Start Date Expiration Date Visits Re quested Visits Authorized [id number] 03/29/2025 1 1 Encounter Details Date Type Department Care Team (Late st Contact Info) Description 03/30/2025 8:48 AM EDT - 03/30/2025 11:14 AM EDT Hospital Encounter [facility] Preadmission Testing [address] [place] [address] Bill Graham MD [address] [place] [address] [address] [place] [address] Preoperative evaluation to rule out surgical contraindication (Primary Dx); Preop testing Discharge Disposition: Home or Self Care Anesthesia Record Procedure Summary Procedure Name Responsible Anesthesiologist Anesthesia Start Time Anesthesia Stop Time (LAPAROSCOPIC PERITONEAL DIALYSIS CATHETER INSERTION) (Abdomen) Events No events on file. Meds * Agents No agents on file. * Blood No blood administrations on file. Lines, Drains, and Airways Type Details Placement Removal Wound 03/01/23; 1055; Inci aldair; Arm; Right 03/01/23 1055 by Gerri Amador RN Pacemaker / AICD (Jun 2021 (per patie nt)); ICD; Left; Subclavian 03/01/23 1206 by Kita Henao RN documented in this encounter Social History Tobacco Use Types Packs/Day Years Used Date Smoking Tobacco: Former Cigarettes Q uit: 08/29/2019 Smokeless Tobacco: Never Tobacco Cessation:Counseling Given: Not Answered Alcohol Use Standard Drinks/Week Comments Never 0 [...] Date Josias rded Speak language other than Mosotho at home Not on file 07/30/2023 Want help with school or training Not on file 07/30/2023 Substance Use Answer Date Recorded Used prescription meds for non-medical reasons N ot on file 07/30/2023 Used illegal drugs past 12 months Not on file 07/30/2023 Comments No Sex and Gender Information Value Date Recorded Sex Assigned at Not on file Legal Sex Female 6:53 PM CDT Gender Identity Not on file Sexual Orientation Not on file documented as of this encounter Last Filed Vital Signs Vital Sign Reading Time Taken Comments Blood Pressure 116/84 03/30/2025 9:39 AM EDT Pulse 79 03/30/2025 9:39 AM EDT Temperature 36.5 C (97.7 F) 03/30/2025 9:39 AM EDT Respiratory Rate 20 03/30/2025 9:39 AM EDT Oxygen Saturation 98% 03/30/2025 9:39 AM EDT Inhaled Oxygen Concentration - - Weight 72.4 kg (159 lb 9.6 oz) 03/30/2025 9:39 A M EDT Height 167.6 cm (5' 6 ) 03/30/2025 9:39 AM EDT Body Mass Index 25.76 03/30/2025 9:39 AM EDT documented in this encounter Discharge Instructions * Discharge Instructions* Noemi Pearce RN - 03/29/2025 4:30 PM EDT Please arrive to the hospital on: 04-12-25 Please arrive by: To be notified Please bring Albuterol Inhaler to the hospital on day of surgery Day of Surgery Instructions: Please arrive at the hospital on time. If you are unable to arrive at your designated time, call the Outpatient Surgery Department at [phone] or ext [phone] Arrive at the hospital at your designated time, and park in the main visitor parking area. GO TO ADMITTING TO REGISTER FOR SURGERY. You will be notified by outpatient surgery staff, the afternoon before surgery, regarding the time of your arrival the morning of surgery. If you have any questions, please call the above phone number. If you are going home the same day as your surgery, you MUST have a responsible adult over the age of [address] you home, and REMAIN with you 24 hours after surgery. PLEASE NOTE: If you do not have a responsible adult with you the day of surgery, your surgery may be cancelled. DO NOT EAT OR DRINK ANYTHING AFTER MIDNIGHT: the night before your surgery unless otherwise indicated. This includes water, coffee, gum, mints, tobacco, etc. You may brush your teeth the morning of surgery. Try not to smoke for 2 weeks prior to surgery. DO NOT chew tobacco or use any form of tobacco 24 hours before surgery. DO NOT drink alcohol or take illicit drugs 24 hours before surgery. On the day of surgery, please take only the medications you are instructed to take. Please bring inhalers with you on the day of surgery. Please DO NOT take any NSAIDS (Ibuprofen, Blood thinners, Aspirin, Motrin, Aleve, Celebrex, etc) unless approved by your physician. DO NOT wear any jewelry (including rings and body piercings), hair pins, makeup or nail yi on fingers or toes on the day of surgery. If you wear contact lenses, please bring a case and solution to put them in. If you wear glasses orhearing aids, please bring a case to put those in. DIABETICS: please check your blood sugar the morning of surgery. Follow instructions given to you by the nurse. If your blood sugar is high, do what you would normally do. If you are admitted, please leave belongings in the car and have family bring them to your room later. Leave valuables such as money, credit cards or jewelry at home. Please contact your surgeon for any physical changes such as cold, flu, fever, or if you're unable to come for surgery. If you suspect you may be , please notify your physician. Bring a copy of any healthcare directives, and legal documents such as a living will, healthcare surrogate, power of automatic i threading machine feeder, or legal guardianship verification to the hospital on the day of surgery. GENERAL INSTRUCTIONS FOR POST OP CARE: -For the next 24 hours: Have a responsible adult (over the age of 18) with you for your safety and protection Do NOT drive, work around machines, or use any type of power equipment Do NOT smoke Do NOT drink alcohol or while on pain medication Do NOT make any important decisions, or sign any important paperwork -After surgery, you may have a sore throat, muscle aches, dizziness, and feel tired or sleepy - You may resume medications unless directed not to by your doctor. - Your first meal after surgery should be light, and gradually increase your diet to what is normalfor you. In case of nausea, avoid solid food and take only clear liquids as tolerated. - After surgery, please plan to spend a quiet, relaxed evening at home. Resume your normal activityas prescribed by your doctor, and as tolerated. * Attachments The following attachments cannot be sent through Care Everywhere. * General Anesthesia Adult (Mosotho) documented in this encounter Medications at Time of Discharge [...] by mouth 3 (three) times a week MON/WED/WED. cetirizine (ZyrTEC) 10 MG tablet Take 1 tablet (10 mg total) by mouth daily. fluticasone propionate (FLONASE) 50 mcg/actuation nasal spray Administer 2 sprays into affected nostril(s) daily as needed for rhinitis. 06/25/2022 iron sucrose complex (IRON SUCROSE IV) Infuse 200 mg into a venous catheter Wed/Weds/Wed during dialysis. isosorbide-hydrala zine (BIDIL) 20-37.5 mg [...] (40 mg total) by mouth Daily (0600). potassium chloride (KLOR-CON) 20 MEQ tablet Take 1 tablet (20 mEq total) by mouth daily ///Wednesday. rOPINIRole (REQUIP) 4 MG tablet Take 1 [...] tablet (4 mg total) by mouth daily. documented as of this encounter H&P Notes * Lynn Leblanc PA-C - 03/30/2025 9:00 AM EDTSummary: MALIA CC: Renal failure History Of Present Illness Corrie Stiles is a 54 y.o. female presenting for perioperative clearance for laparoscopic peritoneal dialysis catheter insertion with Dr. Graham in setting of CKD stage V/ESRD. Patient is currently on hemodialysis that she does at home Wednesday. Previously she had a peritoneal catheter that had complications with intra-abdominal and pelvic abscesses in November 2024. She transitioned to hemodialysis at that time via tunneled dialysis catheter. Pertinent history: CAD s/p RUBEN to LAD in 2020 PAF HFrEF s/t NICM s/p ICD 2020 VHD and long-term anticoagulation-s/p MV replacement (2019) on Coumadin -pt follows with cardiology at Prior complications with peritoneal catheter -History of multiple IA and pelvic abscesses in November 2024 received 14 days of antibiotics. Patient had tunnel catheter placed at that time. She has been doing home hemodialysis Wednesday and Wednesday. Pertinent negatives: no hx of PE or DVT. No personal or family hx of malignant hyperthermia. No difficult intubation. Past Medical History She has a past medical history of AICD (automatic cardioverter/defibrillator) present, Arrhythmia, Basal cell carcinoma of nose, Cardiomyopathy (HCC), CHF (congestive heart failure) (), Chronic anticoagulation, CKD (chronic kidney disease- not on dialysis, COPD (chronic obstructive pulmonary disease) (), Edema, Fluid overload, GERD (gastroesophageal reflux disease), H/O mitral valve replacement with mechanical valve (2019), Heart murmur, Hyperchylomicronemia, Hypertension, Hypertensive heart and chronic kidney disease without heart failure, with stage 5 chronic kidney disease, or end stage renal disease (), Hypervolemia associated with renal insufficiency, Hypokalemia, Migraines, My ocardial infarction (), NICM (nonischemic cardiomyopathy) ([facility]), RENETTA (obstructive sleep apnea) no cpap, Persistent atrial fibrillation (), repair cystocele, Restless leg syndrome, RLS (restlesslegs syndrome), Shortness of breath, TIA (transient ischemic attack), and Valvular heart disease. She has no past medical history of Type II diabetes mellitus ([facility]). Surgical History She has a past surgical history that includes Mitral valve replacement; Mitral valve repair; Hysterectomy; Bladder suspension; Repair knee ligament (Right); Knee arthroscopy; Laparoscopic gastric banding; Cardiac defibrillator placement; Coronary angioplasty with stent; TRANSPOSITION,VEIN (Right, 09/07/2022); CREATION,A-V FISTULA (Right, 02/26/2023); CREATION,A-V FISTULA (Right, 03/01/2023); and Cardiac pacemaker placement. Social History She reports that she quit smoking about 5 years ago. Her smoking use included cigarettes. She has never used smokeless tobacco. She reports current drug use. Frequency: 3.00 times per week. Drug: Marijuana. She reports that she does not drink alcohol. Family History Her family history includes Kidney cancer in her mother; Kidney disease in her brother. Allergies Codeine Medications Current Outpatient Medications Medication Instructions acetaminophen (TYLENOL) 1,000 mg, Every 6 hours PRN albuterol HFA (VENTOLIN HFA) 90 mcg/actuation inhaler 2 puffs, Every 6 hours PRN aMILoride (MIDAMOR) 5 mg, Daily aspirin 81 mg, Daily atorvastatin (LIPITOR) 40 mg, Every Night bumetanide (BUMEX) 1 mg, oral, Daily as needed calcitRIOL (ROCALTROL) 0.5 mcg, MWF cetirizine (ZYRTEC) 10 mg, Daily fluticasone propionate (FLONASE) 50 mcg/actuation nasal spray 2 sprays, Daily as needed iron sucrose complex (IRON SUCROSE IV) 200 mg isosorbide-hydralazine (BIDIL) 20-37.5 mg per tablet 1 tablet, 3 times daily magnesium oxide (MAG-OX) 400 mg, oral, 2 times daily, F/u with nephrology for refills metOLazone (ZAROXOLYN) 5 mg, Daily as needed metoprolol succinate (TOPROL-XL) 50 mg, 2 times daily pantoprazole (PROTONIX) 40 mg, Daily (0600) potassium chloride (KLOR-CON) 20 MEQ tablet 20 mEq, Daily rOPINIRole (REQUIP) 4 mg, Every Night sodium bicarbonate 1,300 mg, 2 times daily Velphoro 500 mg, 3 times daily PRN warfarin (COUMADIN) 4 mg, Daily@1600 Review of Systems 14 point ROS completed and non-contributory except as listed above Physical Exam Blood pressure 116/84, pulse 79, temperature 97.7 ??F (36.5 ??C), resp. rate 20, height 1.676 m (5'6 ), weight 72.4 kg (159 lb 9.6 oz), SpO2 98%. GEN: Alert, awake, NAD HEENT: NCAT, no icterus, no thrush, nares patent, CV: S1S2, no murmur. No LE edema Resp: CTAB, NL Abd: Soft, NT, ND +BS Skin: right lateral lower leg, dark area that looks like skin tear with mild redness and warmth around site Ext: No LE edema. No joint edema, erythema. Neuro: A&O x 3, CN grossly intact Diagnostic Results Hospital Outpatient Visit on 03/30/2025 Component Date Value Ref Range Status WBC 03/30/2025 8.1 4.0 - 10.0 K/??L Final RBC 03/30/2025 3.94 3.93 - 5.22 M/??L Final Hemoglobin 03/30/2025 11.3 11.2 - 15.7 GM/DL Final Hematocrit 03/30/2025 34.9 34.1 - 44.9 % Final MCV 03/30/2025 89 79 - 95 fL Final MCH 03/30/2025 28.7 25.6 - 32.2 pg Final MCHC 03/30/2025 32.4 32.2 - 35.5 GM/DL Final RDW 03/30/2025 17.2 (H) 11.7 - 14.4 % Final Platelets 03/30/2025 234 140 - 375 K/CU MM Final MPV 03/30/2025 11.4 9.4 - 12.3 fL Final aPTT 03/30/2025 42.6 (H) 22.0 - 32.0 seconds Final Protime 03/30/2025 14.0 (H) 9.0 - 12.0 seconds Final INR 03/30/2025 1.28 (H) 0.80 - 1.10 Final Sodium 03/30/2025 134 (L) 136 - 145 meq/L Final Potassium 03/30/2025 3.7 3.4 - 5.1 meq/L Final CO2 03/30/2025 20 (L) 22 - 29 meq/L Final Chloride 03/30/2025 99 98 - 112 meq/L Final Glucose 03/30/2025 94 74 - 100 mg/dL Final BUN 03/30/2025 51.1 (H) 9.8 - 20.1 mg/dL Final Creatinine 03/30/2025 3.61 (H) 0.57 - 1.11 mg/dL Final BUN/Creatinine 03/30/2025 14 8 - 20 Final Calcium 03/30/2025 9.2 8.4 - 10.2 mg/dL Final Anion Gap 03/30/2025 19 (H) 4 - 12 Final eGFR (mL/min/1.73m2) 03/30/2025 14 (L) >=60 mL/min/1.73m2 Final Osmolality Calc 03/30/2025 281.7 mOsm/kg Final VENTRICULAR RATE EKG/MIN 03/30/2025 80 BPM Incomplete ATRIAL RATE (MCT) 03/30/2025 340 BPM Incomplete QRS-INTERVAL (MSEC) 03/30/2025 156 ms Incomplete QT Interval 03/30/2025 498 ms Incomplete QTC Interval 03/30/2025 574 ms Incomplete R AXIS (MCT) 03/30/2025 130 degrees Incomplete T Wave [place] 03/30/2025 29 degrees Incomplete [place] Diagnosis 03/30/2025 Incomplete Value:Ventricular-paced rhythm Biventricular pacemaker detected Abnormal ECG When compared with ECG of 12-MAR-2023 09:42, Electronic ventricular pacemaker has replaced Sinus rhythm CXR 03/30/25 FINDINGS: The heart is mildly enlarged. The mediastinum is unremarkable . The lungs are clear . There is no pneumothorax . The osseous structures are unremarkable . There is a dialysis catheter with the tip in the right atrium. There is a left subclavian biventricular pacer noted. IMPRESSION: No acute cardiopulmonary process . Echo 02/24/25 from Left Ventricle: The left ventricular systolic function [...] there is no significant interval change noted. Assessment & Plan Principal Problem: Preoperative evaluation to rule out surgical contraindication Active Problems: Decompensated heart failure (HCC) Chronic anticoagulation Anemia, chronic disease Chronic obstructive pulmonary disease (HCC) Coronary artery disease involving qagan tayagungin coronary artery Gastroesophageal reflux disease History of obstructive sleep apnea Mixed hyperlipidemia S/P MVR (mitral valve replacement) Hypertension Presence of cardiac defibrillator ESRD (end stage renal disease) (HCC) Cardiomyopathy (HCC) Chronic kidney disease, stage V (HCC) Preop evaluation: Patient underwent preoperative laboratory workup and diagnostic studies as above.Continue home meds per PCP recommendations. Medication preop holds reviewed with pt by nursing. Mitral valve replacement - On Coumadin, hold parameters per cardiology Right lateral lower leg small lesion -pt has seen PCP and has been placed on Bactrim and Keflex. She doesn't know how long area has beenthere or if injury occurred. Does have some burning and pain. Recommended continuing abx as orderedby PCP office. If worsens or fails to improve she needs to f/u with PCP and may need further workup, pt voiced understanding. Anesthesia to see patient today. Proceed with surgery as scheduled on 04/12/[address] Graham. documented in this encounter Procedure Notes * Noemi Pearce RN - 03/30/2025 9:00 AM EDT Spoke to [place] with [employer] and he stated that magnet placement will deactivate icd function but keep pacing. Magnet removal will return icd function. Dr Szymanski with anesthesia notified. documented in this encounter Plan of Treatment Upcoming Encounters Date Type Department Care Team (Late st Contact Info) Description 04/12/2025 7:30 AM EDT Hospital Encounter [facility] Operating Room [address] [place] [address] Bill Graham MD [address] [place] [address] [address] [place] [id number] 04/12/2025 7:30 AM EDT Anesthesia Event [facility] Operating Room [address] [place] [address] Lucio Szymanski MD [address] [place] [id number] 04/12/2025 7:30 AM EDT - 04/12/2025 8:55 AM EDT Surgery [facility] Operating Room 1 [place] [id number] Bill Graham MD [address] [facility] [address] [place] [address] (LAPAROSCOPIC PERITONEAL DIALYSIS CATHETER INSERTION) Scheduled Procedures Name Priority Associated Diagnoses Date/Ti me LAPAROSCOPY, WITH PERITONEAL DIALYSIS CATHETER INSERTION Chronic kidney disease, stage V (HCC) 04/12/2025 7:30 AM EDT documented as of this encounter Procedures Procedure Name Priority Date/Time Associated Diagnosis Comments CBC HEMOGRAM (SJ-BKR) STAT 03/30/2025 10:29 AM EDT Preop testing PT/INR, PTT STAT 03/30/2025 10:29 AM EDT Preop testing BASIC METABOLIC PANEL STAT 03/30/2025 10:29 AM EDT Preop testing [id number] 12-LEAD Routine 03/30/2025 9:20 AM EDT Preop testing documented in this encounter Results * X-ray chest PA and lateral (03/30/2025 11:25 AM EDT) Anatomical Region Laterality Modality Chest X-Ray 03/30/2025 12:4 2 PM EDT Impressions 03/30/2025 12:53 PM EDT No acute cardiopulmonary process . Images reviewed, interpreted, and dictated by Dr. Lucio Fairchild. Transcribed by Adelaida Sparrow PA-C. Narrative 03/30/2025 12:53 PM EDT TWO VIEW CHEST 03/30/2025 11:25 AM HISTORY: Preoperative evaluation. COMPARISON: 03/12/2023. FINDINGS: The heart is mildly enlarged. The mediastinum is unremarkable . The lungs are clear . There is no pneumothorax . The osseous structures are unremarkable . There is a dialysis catheter with the tip in the right atrium. There is a left subclavian biventricular pacer noted. Procedure Note Lucio Fairchild MD - 03/30/2025 TWO VIEW CHEST 03/30/2025 11:25 AM HISTORY: Preoperative evaluation. COMPARISON: 03/12/2023. FINDINGS: The heart is mildly enlarged. The mediastinum is unremarkable . The lungs are clear . There is no pneumothorax . The osseous structures are unremarkable . There is a dialysis catheter with the tip in the right atrium. There is a left subclavian biventricular pacer noted. IMPRESSION: No acute cardiopulmonary process . Images reviewed, interpreted, and dictated by Dr. Lucio Fairchild. Transcribed by Adelaida Sparrow PA-C. Bill Graham MD IMG DIAGNOSTIC IMAGING ORDERABLE S Final Result * (ABNORMAL) Basic Metabolic Panel (03/30/2025 10:29 AM EDT) Sodium 134(L) 136 - 145 meq/L 03/30/2025 11:16 AM [facility] Potassium 3.7 3.4 - 5.1 meq/L 03/30/2025 11:16 AM [facility] CO2 20(L) 22 - 29 meq/L 03/30/2025 11:16 AM [facility] Chloride 99 98 - 112 meq/L 03/30/2025 11:16 AM [facility] Glucose 94 74 - 100 mg/dL 03/30/2025 11:16 AM [facility] BUN 51.1(H) 9.8 - 20.1 mg/dL 03/30/2025 11:16 AM [facility] Creatinine 3.61(H) 0.57 - 1.11 mg/dL 03/30/2025 11:16 AM [facility] BUN/Creatinine 14 8 - 20 03/30/2025 11:16 AM [facility] Calcium 9.2 8.4 - 10.2 mg/dL 03/30/2025 11:16 AM [facility] Anion Gap 19(H) 4 - 12 03/30/2025 11:16 AM [facility] eGFR (mL/min/1.73m2) 14(L) >=60 mL/min/1.7 3m2 03/30/2025 11:16 AM [facility] Comment:ESTIMATED GFR IS NOT ACCURATE CREATININE CLEARANCE IN PREDICTING GLOMERULAR FILTRATION RATE. ESTIMATED GFR IS NOT APPLICABLE FOR DIALYSIS PATIENTS. Osmolality Calc 281.7 mOsm/kg 11:16 AM EDT [facility] Blood Venipuncture / Unknown 03/30/2025 10:29 AM EDT 03/30/2025 10:46 AM EDT us Bill Graham MD LAB BLOOD ORDERABLES Final Resul t Performing Organization Address [facility] de Phone Number [facility] [address] [phone] * (ABNORMAL) PT/INR, PTT (03/30/2025 10:29 AM EDT) aPTT 42.6(H) 22.0 - 32.0 seconds 03/30/2025 11:02 AM EDT [facility] Protime 14.0(H) 9.0 - 12.0 seconds 03/30/2025 11:02 AM EDT [facility] INR 1.28(H) 0.80 - 1.10 03/30/2025 11:02 AM EDT [facility] Blood Venipuncture / Unknown 03/30/2025 10:29 AM EDT 03/30/2025 10:46 AM EDT us Bill Graham MD LAB BLOOD ORDERABLES Final Resul t Performing Organization Address [facility] de Phone Number [facility] [address] [phone] * (ABNORMAL) CBC - Hemogram (SJ-BKR) (03/30/2025 10:29 AM EDT) WBC 8.1 4.0 - 10.0 K/ L 03/30/2025 10:50 AM EDT [facility] RBC 3.94 3.93 - 5.22 M/ L 03/30/2025 10:50 AM EDT [facility] Hemoglobin 11.3 11.2 - 15.7 GM/DL 03/30/2025 10:50 AM EDT [facility] Hematocrit 34.9 34.1 - 44.9 % 03/30/2025 10:50 AM EDT [facility] MCV 89 79 - 95 fL 03/30/2025 10:50 AM EDT [facility] MCH 28.7 25.6 - 32.2 pg 03/30/2025 10:50 AM EDT [facility] MCHC 32.4 32.2 - 35.5 GM/DL 03/30/2025 10:50 AM EDT [facility] RDW 17.2(H) 11.7 - 14.4 % 03/30/2025 10:50 AM EDT [facility] Platelets 234 140 - 375 K/CU MM 03/30/2025 10:50 AM EDT [facility] MPV 11.4 9.4 - 12.3 fL 03/30/2025 10:50 AM EDT [facility] Blood Venipuncture / Unknown 03/30/2025 10:29 AM EDT 03/30/2025 10:46 AM EDT us Bill Graham MD LAB BLOOD ORDERABLES Final Resul t [facility] [address] [place] [address] * ECG 12 lead (03/30/2025 9:20 AM EDT) VENTRICULAR RATE EKG/MIN 80 BPM GE MUSE ATRIAL RATE (MCT) 340 BPM GE MUSE QRS-INTERVAL (MSEC) 156 ms GE MUSE QT Interval 498 ms GE MUSE QTC Interval 574 ms GE MUSE R AXIS (MCT) 130 degrees GE MUSE T Wave [place] 29 degrees GE MUSE [place] Diagnosis Ventricular-pa ashley rhythm Abnormal ECG When compared with ECG of 12-MAR-2023 09:42, Electronic ventricular pacemaker has replaced Sinus rhythm Confirmed by Carlos Castillo ([id number]) on 03/30/2025 8:54:44 PM GE MUSE 03/30/2025 9:20 AM EDT 03/30/2025 8:54 PM EDT us Bill Graham MD ECG ORDERABLES Final Result BERNA CHAWLA documented in this encounter Visit Diagnoses Diagnosis Preoperative evaluation to rule out surgical contraindication- Primary Preoperative evaluation to rule out surgical contraindication Preop testing Unspecified pre-operative examination Chronic kidney disease, stage V (HCC) Chronic kidney disease, Stage V Anemia, chronic disease Anemia of other chronic disease Cardiomyopathy (HCC) Other primary cardiomyopathies Chronic anticoagulation Encounter for long-term (current) use of anticoagulants Chronic obstructive pulmonary disease (HCC) Coronary artery disease involving qagan tayagungin coronary artery Decompensated heart failure (HCC) ESRD (end stage renal disease) (HCC) End stage renal disease Gastroesophageal reflux disease Esophageal reflux H/O mitral valve repair Hypertension Unspecified essential hypertension History of obstructive sleep apnea Mixed hyperlipidemia Presence of cardiac defibrillator S/P MVR (mitral valve replacement) Heart valve replaced by other means Preop testing Unspecified pre-operative examination Chronic kidney disease, stage V (HCC) Chronic kidney disease, Stage V documented in this encounter Care Teams Change Coordinator Relationship Specialty Start Date End Date Félix Monroe, NATURAL REMEDY CONSULTANT [address] [place] [address] PCP - General Nurse Practitioner 08/25/22 documented as of this encounter
--- OUTSIDE RECORDS SUMMARY | 2025-03-30 11:15 | XMS_ITS | Encounter Summary ---
Author Organization [employer] ([place], [place], [place], [place]) Address [address] [place] [address] Care Team Providers Care Senior Electrical Engineer Name Role Phone Félix Monroe APRN Primary Care Provider [phone] Reason for Referral * Diagnostic X-Ray (Routine) - New Request Specialty Diagnoses / Procedures Referred By Adalgisa hutchins Referred To Contact Radiology Diagnoses Preop testing Procedures X-ray chest PA and lateral Bill Graham MD [address] [place] [address] [address] [place] [address] Phone: tel: fax: Referral ID Status Reason Start Date Expiration Date V isits Requested Visits Authorized [id number] New Request 03/30/2025 03/30/2026 1 1 Reason for Visit * Auth/Cert (Routine) Specialty Diagnoses / Procedures Referred By Adalgisa hutchins Referred To Contact Diagnoses Chronic kidney disease, stage V (HCC) Chronic kidney disease, stage V (HCC) Procedures [place] LAPS INSERTION TUNNELED INTRAPERITONEAL CATHETER LAPAROSCOPY, WITH PERITONEAL DIALYSIS [place] [address] [place] [address] [address] [place] [address] Phone: tel: fax: Referral ID Status Reason Start Date Expiration Date Visits Re quested Visits Authorized [id number] 03/29/2025 1 1 Encounter Details Date Type Department Care Team (Late st Contact Info) Description 03/30/2025 11:15 AM EDT - 03/30/2025 11:59 PM EDT Hospital Encounter [facility] [address] [place] [address] Bill Graham MD [address] [place] [address] [address] [place] [id number] Preop testing Discharge Disposition: Home or Self Care Social [...] Date Josias rded Speak language other than Italian at home Not on file 07/30/2023 Want [...] mouth daily. documented as of this encounter Plan of Treatment Upcoming Encounters Date Type Department Care Team (Late st Contact Info) Description 04/12/2025 7:30 AM EDT Hospital Encounter [facility] Operating Room [address] [place] [address] [place] [address] [place] [address] [address] [place] [id number] 04/12/2025 7:30 AM EDT Anesthesia Event [facility] Operating Room [address] [place] [address] Lucio Szymanski MD [address] [place] [phone] 04/12/2025 7:30 AM EDT - 04/12/2025 8:55 AM EDT Surgery [facility] Operating Room [address] [place] [address] Bill Graham MD [address] [place] [address] [address] [place] [id number] (LAPAROSCOPIC PERITONEAL DIALYSIS CATHETER INSERTION) Scheduled Procedures Name Priority Associated Diagnoses Date/Ti me LAPAROSCOPY, WITH PERITONEAL DIALYSIS CATHETER INSERTION Chronic kidney disease, stage V (HCC) 04/12/2025 7:30 AM EDT documented as of this encounter Procedures Procedure Name Priority Date/Time Associated Diagnosis Comments XR CHEST PA AND LATERAL Routine 03/30/2025 11:25 AM EDT Preop testing documented in this [...] IMG DIAGNOSTIC IMAGING ORDERABLE S Final Result documented in this encounter Visit Diagnoses Diagnosis Preop testing Unspecified pre-operative examination Chronic kidney disease, stage V (HCC) Chronic kidney disease, Stage V documented in this encounter Care Teams Senior Electrical Engineer Relationship Specialty Start Date End Date Félix Monroe, PLATFORM MATERIAL HANDLER MANAGER [address] [address] PCP - General Nurse Practitioner 08/25/22 documented as of this encounter
--- NOTE | 2025-04-11 10:34 | XR_ITS ---
FINAL REPORT CLINICAL HISTORY: pain/swelling COMPARISON: None FINDINGS: Two views of the right tibia and fibula were obtained. There is no acute fracture or dislocation. The joint spaces are intact. There is no soft tissue abnormality. IMPRESSION: No acute bony abnormality. Reviewed, Interpreted and Dictated by Lucio Fairchild MD Transcribed by Chapis Godoy Authenticated and [facility]
--- OUTSIDE RECORDS SUMMARY | 2025-04-11 10:59 | XMS_ITS | Encounter Summary ---
Author Organization [employer] ([place], [place], [place], [place]) Address [address] [address] Care Team Providers Care Metallurgical Engineering Technician Name Role Phone Félix Monroe APRN Primary Care Provider [phone] Encounter Details Date Type Department Care Team (Late st Contact Info) Description 09/01/2019 Transcribed Document [facility] [place] [address] [place] [address] ProviderMaria Esther MD [address] [place], [place] [address] Social History Tobacco Use Types Packs/Day Years Used Date Smoking Tobacco: Never Assessed Comments Unknown Sex and Gender Information Value Date Recorded Sex Assigned at Not on file Legal Sex Female 6:53 PM CDT Gender Identity Not on file Sexual Orientation Not on file documented as of this encounter Miscellaneous Notes * Cerner Conversion Note - Maria Esther Reyes MD - 09/01/2019 11:38 AM FEEDER TENDER Patient: CORRIE SMITH Age: 49 years Sex: Female : 1970 Associated Diagnoses: Chronic renal failure, stage 4 (severe); COPD (chronic obstructive pulmonary disease); History of Pulmonary edema; Chronic systolic, valvular congestive heart failure, NYHA class 3; Systemic hypertension; GERD (gastroesophageal reflux disease); Nicotine dependence with withdrawal; Severe mitral insufficiency; History of Obesity S/P Laparoscopic gastric banding; RLS (restless legs syndrome); Thrombocytopenia; History of TIA (transient ischemic attack) Author: SHANNAN CASTILLO PA Basic Information This 49-year-old female has been admitted for severe mitral regurgitation with congestive heart failure, requiring hospitalization. She gradually deteriorated and has had class III congestive heart failure in spite of medical management. She is put forth at this time for mitral valve repair. She has known normal coronary arteries with a right-dominant system. 08/29/19: 1. Mitral valve repair using a 28 mm CG annuloplasty band. 2. Ligation and excision of left atrial appendage. 3. Intraoperative transesophageal echocardiography. 08/30/19: POD#1 The pt is OOB in a chair, she complains of incisional pain. She is paced at 90 and C.I. is 2.0 but SBP 160s. C.I. drops with decrease in HR. 08/31/19: POD#2 The pt is OOB in a chair. She is off cardene. She is paced at 90 and C.I. tolerated turning rate down to 80. C.I. is maintaining at 2.9 09/01/19 POD #3 stable, without without SOB or other complaints O2???5 L, PW/paced???80 as backup NSR???80 Health Status Allergies: Allergies (1) Active Reaction codeine Weltatum Physical Examination Intake and Output 24 hour intake: Total 1,347 ml 24 hour output: Urinary catheter 1,285 ml, Total 1,295 ml ERWIN 10ml / 24 hours General: Alert and oriented, No acute distress. HENT: Normocephalic. Neck: Supple. Respiratory: Respirations are non-labored. Breath sounds: Diminished. Cardiovascular: Normal rate, Regular rhythm, No edema, Paced at 80. Integumentary: Warm, Dry, [place], Aquacel dressing is C/D/I. Neurologic: Alert, Oriented. Psychiatric: Cooperative, Appropriate mood & affect. Review / Management Results review: SEP 01 04:51 136 104 H 25 / 104 3.5 29 H 1.90 \ SEP 01 04:51 \ L 8.8 / 9.9 L 100 / L 26.8 \ Blood Gases (Current Encounter/Past 24 Hours) No Blood Gas Results Found (Past 24 Hours) Coagulation Results (Current Encounter/Past 24 Hours) PT 48.3 Second(s) [place] 09/01/2019 05:59 INR 4.6 [place] 09/01/2019 05:59 . Impression and Plan Plan: 08/30/19 POD#1 Daily PT/INR Coumadin 5mg PO Daily MT D/C without any immediate complications Probable D/C Mediastinal ERWIN tomorrow. Improvement in right apical ptx when ERWIN returned to wall suction Paced 90 C.I. 2.0 D/C NG 08/31/19 POD#2 INR 1.6 Paced 80 C.I. >2.9 ERWIN drain D/C without any immediate complications and the pt tolerated well [facility] 09/01/19 NSR???80, PW/paced 80 backup INR???4.6 today up from 1.6 yesterday, with Coumadin 5 mg Hold Coumadin today, come back in at lower dose Nephrology: CKD4 Cr- 1.9, probably her baseline O2???5 L weaning EF 50-55% per echo 07/21/19 DVT Prophylaxis: SCDs, Coumadin Diagnosis Chronic renal failure, stage 4 (severe) - Pre-Op Diagnosis, Medical. COPD (chronic obstructive pulmonary disease) - Pre-Op Diagnosis, Medical. History of Pulmonary edema - Pre-Op Diagnosis, Medical. Chronic systolic, valvular congestive heart failure, NYHA class 3 - Pre-Op Diagnosis, Medical. Systemic hypertension - Pre-Op Diagnosis, Medical. GERD (gastroesophageal reflux disease) - Pre-Op Diagnosis, Medical. Nicotine dependence with withdrawal - Pre-Op Diagnosis, Medical. Severe mitral insufficiency - Discharge, Medical. Severe mitral insufficiency - Admitting, Medical. History of Obesity S/P Laparoscopic gastric banding - Pre-Op Diagnosis, Medical. RLS (restless legs syndrome) - Pre-Op Diagnosis, Medical. Thrombocytopenia - Pre-Op Diagnosis, Medical. History of TIA (transient ischemic attack) - Pre-Op Diagnosis, Medical. documented in this encounter Plan of Treatment Upcoming Encounters Date Type Department Care Team (Late st Contact Info) Description 04/12/2025 7:30 AM EDT Hospital Encounter [facility] Operating Room 1 [place] [address] Bill Graham MD [address] [place] [address] [address] [place], [place] [id number] 04/12/2025 7:30 AM EDT Anesthesia Event [facility] Operating Room [address] [place] [id number] Lucio Szymanski MD [address] [place] [address] 04/12/2025 7:30 AM EDT - 04/12/2025 8:55 AM EDT Surgery [facility] Operating Room [address] [place] [address] Bill Graham MD [address] [facility] [address] [place], [place] [id number] (LAPAROSCOPIC PERITONEAL DIALYSIS CATHETER INSERTION) Scheduled Procedures Name Priority Associated Diagnoses Date/Ti me LAPAROSCOPY, WITH PERITONEAL DIALYSIS CATHETER INSERTION Chronic kidney disease, stage V (HCC) 04/12/2025 7:30 AM EDT documented as of this encounter Visit Diagnoses Not on filedocumented in this encounter Care Teams Metallurgical Engineering Technician Relationship Specialty Start Date End Date Félix Monroe, CREDIT UNION TELLER [address] [facility] [address] [place] [address] PCP - General Nurse Practitioner 08/25/22 documented as of this encounter
--- OUTSIDE RECORDS SUMMARY | 2025-04-11 10:59 | XMS_ITS | Encounter Summary ---
Author Organization [employer] ([place], [place], [place], [place]) Address [address] [place] [address] Care Team Providers Care Hat Mender Name Role Phone Félix Monroe APRN Primary Care Provider [phone] Encounter Details Date Type Department Care Team (Late st Contact Info) Description 08/31/2019 Transcribed Document [facility] [place] Medicine [facility] [place] [address] ProviderMaria Esther MD [address] [place], [place] [phone] Social History Tobacco Use Types Packs/Day Years Used Date Smoking Tobacco: Never Assessed Comments Unknown Sex and Gender Information Value Date Recorded Sex Assigned at Not on file Legal Sex Female 6:53 PM CDT Gender Identity Not on file Sexual Orientation Not on file documented as of this encounter Miscellaneous Notes * Cerner Conversion Note - Maria Esther Reyes MD - 08/31/2019 9:01 AM ADHESIVE BANDAGE MACHINE OPERATOR Patient: CORRIE SMITH Age: 49 years Sex: [...] History of TIA (transient ischemic attack) Author: TARSHA CALVILLO PA Basic Information This 49-year-old female has [...] to 80. C.I. is maintaining at 2.9 Health Status Allergies: Allergies (1) Active Reaction codeine Nickie Physical Examination Intake and Output 24 hour intake: Total 1347 ml 24 hour output: Urinary catheter 1285 ml, Total 1295 ml ERWIN 10ml / 24 hours VS/Measurements Vital Measurements 08/31/2019 8:53 EST Oxygen Saturation 89 % LOW Oxygen Therapy Mode Nasal cannula Oxygen Flow Rate 6 Liter/Min 08/31/2019 7:00 EST Systolic Blood Pressure 106 mmHg Diastolic Blood Pressure 73 mmHg Mean Arterial Pressure (MAP)-BMDI 86 Systolic BP, Arterial Line 1 124 mmHg Diastolic BP, Arterial Line 1 64 mmHg Mean Arterial Pressure, Line 1 84 mmHg Heart Rate Monitored 91 bpm Oxygen Saturation 98 % Oxygen Therapy Mode High flow nasal cannula Oxygen Flow Rate 6 Liter/Min 08/31/2019 5:00 EST Temperature, Celsius 37.3 Deg C Clinical Temperature, F 99.1 Deg F General: Alert and oriented, No acute distress. HENT: Normocephalic. Neck: Supple. Respiratory: Respirations are non-labored. Breath sounds: Diminished. Cardiovascular: Normal rate, Regular rhythm, No edema, Paced at 80. Integumentary: Warm, Dry, [place], Aquacel dressing is C/D/I. Neurologic: Alert, Oriented. Psychiatric: Cooperative, Appropriate mood & affect. Review / Management Results review: AUG 31 04:23 L 135 106 H 23 / H 129 3.8 24 H 1.80 \ AUG 31 04:23 \ L 8.7 / H 11.4 L 97 / L 26.7 \ Blood Gases (Current Encounter/Past 24 Hours) No Blood Gas Results Found (Past 24 Hours) Coagulation Results (Current Encounter/Past 24 Hours) PT 16.8 Second(s) [place] 08/31/2019 04:58 INR 1.6 [place] 08/31/2019 04:58 . Impression and Plan Plan: 08/30/19 POD#1 Daily PT/INR Coumadin 5mg PO Daily MT D/C without any immediate complications Probable D/C Mediastinal ERWIN tomorrow. Improvement in right apical ptx when ERWIN returned to wall suction Paced 90 C.I. 2.0 D/C NG 08/31/19 POD#2 INR 1.6 Paced 80 C.I. >2.9 ERWIN drain D/C without any immediate complications and the pt tolerated well Transfer to [facility] EF 50-55% per echo 07/21/19 DVT Prophylaxis: [...] Description 04/12/2025 7:30 AM EDT Hospital Encounter [facility] Operating Room 1 [place] [address] Bill Graham MD [address] [facility] [address] [place] [address] 04/12/2025 7:30 AM EDT Anesthesia Event [facility] Operating Room 1 [place] [phone] Lucio Szymanski MD [address] [place] [address] 04/12/2025 7:30 AM EDT - 04/12/2025 8:55 AM EDT Surgery [facility] Operating Room [address] [place] [phone] Bill Graham MD [address] [facility] [address] [place] [address] (LAPAROSCOPIC PERITONEAL DIALYSIS CATHETER INSERTION) Scheduled Procedures Name Priority Associated Diagnoses Date/Ti me LAPAROSCOPY, WITH PERITONEAL DIALYSIS CATHETER INSERTION Chronic kidney disease, stage V (HCC) 04/12/2025 7:30 AM EDT documented as of this encounter Visit Diagnoses Not on filedocumented in this encounter Care Teams Hat Mender Relationship Specialty Start Date End Date Félix Monroe, COMPLIANCE OFFICER [address] [facility] [address] [place] [address] PCP - General Nurse Practitioner 08/25/22 documented as of this encounter
--- OUTSIDE RECORDS SUMMARY | 2025-04-11 10:59 | XMS_ITS | Encounter Summary ---
Author Organization [employer] ([place], [place], [place], [place]) Address [address] [place] [address] Care Team Providers Care Cement Tile Maker Name Role Phone Monroe Félix Francisco RODRIGUEZ Primary Care Provider [phone] Encounter Details Date Type Department Care Team (Late st Contact Info) Description 08/31/2019 Transcribed Document [facility] Family Medicine [address] [place] [address] ProviderMaria Esther MD [address] [place], [place] [id number] Social History Tobacco Use Types Packs/Day Years Used Date Smoking Tobacco: Never Assessed Comments Unknown Sex and Gender Information Value Date Recorded Sex Assigned at Not on file Legal Sex Female 6:53 PM CDT Gender Identity Not on file Sexual Orientation Not on file documented as of this encounter Miscellaneous Notes * Cerner Conversion Note - Maria Esther Reyes MD - 08/31/2019 9:03 AM MASTER BLACK BELT Patient: CORRIE SMITH Age: 49 Years Sex: Female : 1970 Subjective She is feeling much better. She is no longer on a Cardene drip. She is breathing comfortably. She is sitting up in a chair. She reports that she is using her incentive spirometer and drinking nutritional health supplements. She denies fever, sweats, chills, worsening shortness of breath. Her chest pain is controlled with when necessary medicines. She is doing much better. Vital Signs HR: 91(Monitored) RR: 18 BP: 106/73 BP: 124/64(Line) SpO2: 89% Oxygen Settings (Last) Oxygen Therapy Mode: Nasal cannula (08/31/19 08:53:00) Oxygen Flow Rate: 6 Liter/Min (08/31/19 08:53:00) Intake & Output Totals Last 24 Hours (7a-7a) Input Total: 1347.73 mL Output Total: 1295 mL Balance: 52.73 mL Physical Exam Gen.: Alert, chronically ill-appearing, sitting up in a chair, conversant no acute distress HEENT: No temporal wasting, no scleral icterus, no conjunctival erythema, edentulous Neck: Supple no masses, left IJ Portia-Siddharth catheter Cardiovascular: Normal S1-S2, regular rhythm, normal rate no rub no gallop, midline sternotomy incision with dressing in place Pulmonary: Clear to auscultation bilaterally coarse breath sounds, oxygen per nasal cannula Gastrointestinal: Abdomen is soft, nontender, nondistended, no guarding Genitourinary: No CVA tenderness Musculoskeletal poor muscle tone, no lower extremity edema Neuro/psych: Mood and affect are appropriate, thoughts are fluent, moves all extremities spontaneously, no focal deficits Skin: No lesions, rashes or ecchymoses, I did not examine the sacral area Assessment and plan: Acute kidney injury on chronic kidney disease stage IV Valvular heart disease status post cardiovascular surgery Hypertension Tobacco use disorder Acute kidney injury on chronic kidney disease stage IV: She has good urine output and her serum creatinine is improving after fluid resuscitation and valvular heart surgery. She is seeming dynamically stable. Her blood pressure is mildly elevated and she is not on vasopressors or antihypertensive IV medications. She is tolerating oral nutrition. She seems to be globally improving. -From a nephrology standpoint she is okay to leave the critical care setting. I'm reassured that her clearance is stabilized and I do not think she will require dialysis. Valvular heart disease: Plans per cardiovascular surgery. I'm reassured by her hemodynamic stability. She is currently on spironolactone, amlodipine, carvedilol and furosemide. She does not have edema. I'm reassured by her improved blood pressure control. -If her blood pressure remains elevated, consider hydralazine and long-acting nitrate. Tobacco use disorder: She is receiving supplemental nicotine. She reports that she will be smoke free after this intervention. From a nephrology standpoint she is okay to leave the ICU. We will continue to monitor her clearance, urine output, electrolytes. I'm reassured by her global improvement. Mendoza Gallardo M.D. Nephrology Partner with , Dr. Pantoja and Dr. Lopez Note dictated with Corepair recognition system Medications acetaminophen-HYDROcodone 325 mg-5 mg oral tablet, 2 Tab, Oral, Q4H, PRN albumin human 5% intravenous solution, 12.5 Gram= 250 mL, IV Piggyback, Q1H, PRN amLODIPine, 10 mg= 1 Tab, Oral, Daily ascorbic acid, 500 mg= 1 Tab, Oral, BID aspirin, 81 mg= 1 Tab, Oral, Daily Bactroban 2% nasal ointment, 1 Application, Nostrils Both, BID calcium gluconate carvedilol, 25 mg= 1 Tab, Oral, BID Coumadin, 5 mg= 1 Tab, Oral, Daily dexmedetomidine injection 400 mcg + NaCl 0.9% for drip 100 mL Dextrose, 25 Gram= 50 mL, IV Push, 1-Time, PRN Dextrose 5% with 0.2% NaCl intravenous solution 1,000 mL, 1000 mL, IntraVENous DuoNeb 0.5 mg-2.5 mg/3 mL inhalation solution, 3 mL, Nebulized Inhalation , RT_Q4H, PRN fluocinonide 0.05% topical cream, 1 Application, Topical, QID, PRN Lactated Ringers Injection intravenous solution 1,000 mL, 1000 mL, IntraVENous Lasix, 40 mg= 1 Tab, Oral, Daily lidocaine 1% preservative-free injectable solution, 0.5 mL, IntraDermal, 1-Time magnesium sulfate + Dextrose 5% in Water intravenous solution 50 mL Milk of Magnesia 8% oral suspension, 30 mL, Oral, Q8H, PRN morphine, 2 mg= 1 mL, IV Push, Q10Min, PRN niCARdipine injection 25 mg + Sodium Chloride 0.9% intravenous solution 250 mL nicotine 21 mg/24 hr transdermal film, extended release, 1 Patch, TransDermal, Daily Normal Saline Flush, 10 mL, IV Push, See Comment, PRN Normal Saline Flush, 10 mL, IV Push, See Comment, PRN Normal Saline Flush, 10 mL, IV Push, Q12H oxyCODONE, 5 mg= 1 Tab, Oral, Q6H, PRN potassium chloride 10 mEq/50 mL intravenous solution, 10 mEq= 50 mL, IV Piggyback, Q1H, PRN Protonix, 40 mg= 1 Tab, Oral, Daily Reglan, 5 mg= 1 mL, IV Push, Q6H, PRN Requip, 1 mg= 1 Tab, Oral, At Bedtime Senokot, 17.2 mg= 2 Tab, Oral, BID sodium bicarbonate 50 mEq per amp (adult), 50 mEq= 50 mL, IV Push, 1-Time, PRN sodium bicarbonate 50 mEq per amp (adult), 100 mEq= 100 mL, IV Push, 1-Time, PRN spironolactone, 25 mg= 1 Tab, Oral, Daily Tylenol, 650 mg= 2 Tab, Oral, Q6H, PRN Tylenol, 650 mg= 2 Tab, Oral, Q4H, PRN Zofran, 4 mg= 2 mL, IV Push, Q4H, PRN Lab Results Test Name Test Result Date/Time Sodium Level 135 mmol/L (Low) 08/31/2019 04:23 EST Potassium Level 3.8 mmol/L 08/31/2019 04:23 EST Potassium Level 4.3 mmol/L 08/30/2019 16:59 EST Chloride Level 106 mmol/L 08/31/2019 04:23 EST Carbon Dioxide Level 24 mmol/L 08/31/2019 04:23 EST Anion Gap 9 08/31/2019 04:23 EST Glucose Level 129 mg/dL (High) 08/31/2019 04:23 EST Blood Urea Nitrogen 23 mg/dL (High) 08/31/2019 04:23 EST Creatinine Level 1.80 mg/dL (High) 08/31/2019 04:23 EST eGFR 36 mL/min/1.73m2 (Low) 08/31/2019 04:23 EST eGFR NonAfrican 30 mL/min/1.73m2 (Low) 08/31/2019 04:23 EST Bun/Creatinine 12.8 08/31/2019 04:23 EST Calcium Level 8.3 mg/dL (Low) 08/31/2019 04:23 EST Device Comment 1 Protocols Followed 08/31/2019 05:12 EST Device Comment 1 Protocols Followed 08/31/2019 00:18 EST Device Comment 1 Protocols Followed 08/30/2019 20:49 EST Device Comment 1 Protocols Followed 08/30/2019 11:43 EST Glucose POC2 129 mg/dL (High) 08/31/2019 05:12 EST Glucose POC2 142 mg/dL (High) 08/31/2019 00:18 EST Glucose POC2 119 mg/dL (High) 08/30/2019 20:49 EST Glucose POC2 149 mg/dL (High) 08/30/2019 11:43 EST WBC 11.4 K/uL (High) 08/31/2019 04:23 EST WBC 21.9 K/uL (High) 08/30/2019 16:59 EST RBC 2.89 Million/uL (Low) 08/31/2019 04:23 EST RBC 3.36 Million/uL (Low) 08/30/2019 16:59 EST Hgb 8.7 g/dL (Low) 08/31/2019 04:23 EST Hgb 10.5 g/dL (Low) 08/30/2019 16:59 EST Hct 26.7 % (Low) 08/31/2019 04:23 EST Hct 30.8 % (Low) 08/30/2019 16:59 EST MCV 92.4 fL 08/31/2019 04:23 EST MCV 91.7 fL 08/30/2019 16:59 EST MCH 30.1 pg 08/31/2019 04:23 EST MCH 31.3 pg 08/30/2019 16:59 EST MCHC 32.6 Gram/dL 08/31/2019 04:23 EST MCHC 34.1 Gram/dL 08/30/2019 16:59 EST Platelet Count 97 K/uL (Low) 08/31/2019 04:23 EST Platelet Count 133 K/uL (Low) 08/30/2019 16:59 EST MPV 14.1 fL (High) 08/31/2019 04:23 EST MPV 13.7 fL (High) 08/30/2019 16:59 EST RDW 14.4 % 08/31/2019 04:23 EST RDW 14.3 % 08/30/2019 16:59 EST Neut % 85.5 % (High) 08/31/2019 04:23 EST Neut # 9.73 K/uL (High) 08/31/2019 04:23 EST Lymph % 7.2 % (Low) 08/31/2019 04:23 EST Lymph # 0.82 x10(3)/uL (Low) 08/31/2019 04:23 EST Cherokee % 6.4 % 08/31/2019 04:23 EST Cherokee # 0.73 K/uL 08/31/2019 04:23 EST Eos % 0.3 % 08/31/2019 04:23 EST Eos # 0.03 x10(3)/uL 08/31/2019 04:23 EST Baso % 0.2 % 08/31/2019 04:23 EST Baso # 0.02 x10(3)/uL 08/31/2019 04:23 EST RBC Morphology Abnormal 08/31/2019 04:23 EST Anisocytosis 1+ (Abnormal) 08/31/2019 04:[address] Estimate Decreased (Abnormal) 08/31/2019 04:23 EST Slide Review Technologist 08/31/2019 04:23 EST Slide Review No 08/30/2019 16:59 EST IG# 0.05 x10(3)/uL 08/31/2019 04:23 EST IG% 0.40 % 08/31/2019 04:23 EST PT 16.8 Second(s) (High) 08/31/2019 04:23 EST PT 11.9 Second(s) 08/30/2019 11:43 EST INR 1.6 (High) 08/31/2019 04:23 EST INR 1.1 08/30/2019 11:43 EST Electronically signed by [facility], [facility] Conversion Exterior Interior Specialist Cerner at 10/28/2022 7:09 PM CDT documented in this encounter Plan of Treatment Upcoming Encounters Date Type Department Care Team (Late st Contact Info) Description 04/12/2025 7:30 AM EDT Hospital Encounter [facility] Operating Room [address] [place] [address] Bill Graham MD [address] [place] [address] [address] [place] [address] 04/12/2025 7:30 AM EDT Anesthesia Event [facility] Operating Room [address] [place] [address] Lucio Szymanski MD [address] [place] [address] 04/12/2025 7:30 AM EDT - 04/12/2025 8:55 AM EDT Surgery [facility] Operating Room [address] [place] [address] Bill Graham MD [address] [facility] [address] [place] [address] (LAPAROSCOPIC PERITONEAL DIALYSIS CATHETER INSERTION) Scheduled Procedures Name Priority Associated Diagnoses Date/Ti me LAPAROSCOPY, WITH PERITONEAL DIALYSIS CATHETER INSERTION Chronic kidney disease, stage V (HCC) 04/12/2025 7:30 AM EDT documented as of this encounter Visit Diagnoses Not on filedocumented in this encounter Care Teams Cement Tile Maker Relationship Specialty Start Date End Date Félix Monroe, HOUSING INSTALLER [address] [facility] [address] [place] [address] PCP - General Nurse Practitioner 08/25/22 documented as of this encounter
--- OUTSIDE RECORDS SUMMARY | 2025-04-11 10:59 | XMS_ITS | Encounter Summary ---
Author Organization [employer] ([place], [place], [place], [place]) Address [address] [address] Care Team Providers Care School Child Care Attendant Name Role Phone Fer Félix Francisco RODRIGUEZ Primary Care Provider [phone] Encounter Details Date Type Department Care Team (Late st Contact Info) Description 08/30/2019 Transcribed Document [facility] [place] [address] [place] [address] ProviderMaria Esther MD [address], [place] [address] Social History Tobacco Use Types Packs/Day Years Used Date Smoking Tobacco: Never Assessed Comments Unknown Sex and Gender Information Value Date Recorded Sex Assigned at Not on file Legal Sex Female 6:53 PM CDT Gender Identity Not on file Sexual Orientation Not on file documented as of this encounter Miscellaneous Notes * Cerner Conversion Note - Maria Esther Reyes MD - 08/30/2019 12:38 PM SUPERVISOR GRINDING On Going Discharge Planning Entered On: 08/30/2019 12:41 EST Performed On: 08/30/2019 12:38 EST by SIMRAN RANDALL, RN-Senior Production SupervisorRam Press Operator Progress Note Discharge Arrangements : Patient Post-Acute Information Patient Name: CORRIE SMITH Gender: Female : [birth year] Age: 49 Years No Post-Acute Placement(s) Listed No Post-Acute Service(s) Listed No [place] Referral(s) Listed Discharge Options Discussed with Patient : Discharge transportation, DME, Home Health, Outpatient services Barriers to Discharge Identified : Clinical Condition of Patient Barriers to Discharge Unresolved : Clinical Condition of Patient Patient Offered Choice/Affiliations Explained : Yes List/Info Provided Pt/Fam/Support Person : Other: OP Cardiac Rehab SIMRAN RANDALL, RN-Senior Production Supervisor - 08/30/2019 12:38 EST Narrative Progress Note Narrative Progress Note : CM met w/pt and mother @ BS. NGT, MVR POD 2. for PCP ref - pt would like Dr Zelaya for PCP in [facility] Historical Progress Note : CM note 08/29/19 Day 1 - Mitral Valve Repair Hx Htn, Mitral Insufficiency, Pul Edema, RENETTA, COPD, Tobacco Use Moderate Readmission Risk CTS/PT Pt on vent; spouse Bola @ bedside. 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 OP Cardiac Rehab discussed and he says he knows she needs it but it will be up to her to do it. SIMRAN RANDALL RN-Senior Production Supervisor - 08/30/19 12:38:15 OP Cardiac Rehab referral placed to [facility]; DCP - likely home with spouse pending therapy recommendation. ZAINA GUERRERO Rn-Senior Production Supervisor - 08/29/19 15:30:00 SIMRAN RANDALL RN-Senior Production Supervisor - 08/30/2019 12:38 EST documented in this encounter Plan of Treatment Upcoming Encounters Date Type Department Care Team (Late st Contact Info) Description 04/12/2025 7:30 AM EDT Hospital Encounter [facility] Operating Room [address] [place] [id number] [place] [address] [place] [address] [address] [place] [address] 04/12/2025 7:30 AM EDT Anesthesia Event [facility] Operating Room [address] [place] [phone] Lucio Szymanski MD [address] [place], [place] [id number] 04/12/2025 7:30 AM EDT - 04/12/2025 8:55 AM EDT Surgery [facility] Operating Room [address] [place] [id number] Bill Graham MD [address] [facility] [address] [place] [address] (LAPAROSCOPIC PERITONEAL DIALYSIS CATHETER INSERTION) Scheduled Procedures Name Priority Associated Diagnoses Date/Ti me LAPAROSCOPY, WITH PERITONEAL DIALYSIS CATHETER INSERTION Chronic kidney disease, stage V (HCC) 04/12/2025 7:30 AM EDT documented as of this encounter Visit Diagnoses Not on filedocumented in this encounter Care Teams School Child Care Attendant Relationship Specialty Start Date End Date Félix Monroe, WINE MERCHANT [address] [facility] [address] [place] [address] PCP - General Nurse Practitioner 08/25/22 documented as of this encounter
--- OUTSIDE RECORDS SUMMARY | 2025-04-11 10:59 | XMS_ITS | Clinical Summary ---
Author Organization [facility] Address [address] [place] [address] Care Team Providers Care Career Development Specialist Name Role Phone Az David MD Primary Care Provider [phone] Allergies Active Allergy Reactions Criticality Noted Date Comments Codeine Hives Low 02/18/2021 Medications carvedilol (COREG) 12.5 MG tablet Take 1 tablet by mouth 2 (Two) Times a Day With Meals for 60 days. 60 tablet 1 06/22/2022 Active warfarin (Coumadin) 5 MG tablet Start 03/23/21: Take 1 tablet by mouth Daily. 30 tablet 06/22/2022 Active midodrine (PROAMATINE) 5 MG tablet Take 1 tablet by mouth Every 8 (Eight) Hours As Needed (low bp systolic <100) for up to 60 days. 30 tablet 1 06/22/2022 Active atorvastatin (LIPITOR) 40 MG tablet Take 1 tablet by mouth Every Night. 90 tablet 1 06/25/2022 Active albuterol sulfate HFA 108 (90 Base) MCG/ACT inhaler Inhale 2 puffs Every 4 (Four) Hours As Needed for Wheezing. 18 g 5 06/25/2022 Active Enoxaparin Sodium (LOVENOX) 80 MG/0.8ML solution prefilled syringe syringe 08/25/2022 Act tianna amiodarone (PACERONE) 200 MG tablet Take 1 tablet by mouth Daily. Active bumetanide (BUMEX) 2 MG tablet Take 1 tablet by mouth 2 (Two) Times a Week for 60 days. 8 tablet 5 11/26/2022 Active potassium chloride 10 MEQ CR tablet TAKE ONE TABLET BY MOUTH 2 TIMES A DAY 30 tablet 11/30/2022 Active metOLazone (ZAROXOLYN) 2.5 MG tablet TAKE ONE TABLET BY MOUTH EVERY DAY 30 tablet 2 03/16/2023 Active rOPINIRole (REQUIP) 4 MG tablet TAKE ONE TABLET BY MOUTH EVERY NIGHT AT BEDTIME 30 tablet 5 03/16/2023 Active fluticasone (FLONASE) 50 MCG/ACT nasal spray USE 2 SPRAYS IN EACH NOSTRIL EVERY DAY 16 g 5 03/16/2023 Active pantoprazole (PROTONIX) 40 MG EC tablet TAKE ONE TABLET BY MOUTH EVERY DAY 30 tablet 5 03/16/2023 Active traZODone (DESYREL) 150 MG tablet TAKE ONE TABLET BY MOUTH EVERY NIGHT AT BEDTIME NEEDED FOR SLEEP 30 tablet 5 03/16/2023 Active spironolactone (ALDACTONE) 25 MG tablet TAKE ONE TABLET BY MOUTH EVERY DAY 30 tablet 2 03/16/2023 Active Active Problems Problem Noted Date Diagnosed Date Acute on chronic systolic congestive heart failu re 06/18/2022 Acute on chronic HFrEF (hear t failure with reduced ejection fraction) 06/17/2022 Hypokalemia 06/17/2022 Elevated serum creatinine 06/17/2022 Elevated troponin 06/17/2022 Cardiomyopathy, dilated 06/03/2021 COPD (chronic obstructive pulmonary disease) 04/2021 Stage 3b chronic kidney disease 03/19/2021 Essential hypertension 03/19/2021 Mixed hyperlipidemia 03/19/2021 RLS (restless legs syndrome) 03/19/2021 Coronary artery disease (stent to LAD 02/18/21) 0 03/19/2021 Anemia, chronic disease 03/19/2021 NSTEMI (non-ST elevated myocardial infarction) 0 02/18/2021 S/P MVR (mitral valve replacement) 07/12/2019 Resolved Problems Problem Noted Date Diagnosed Date Resolved Date Anticoagulated on Coumadin 06/25/2022 0 09/01/2024 Pseudoaneurysm 03/19/2021 03/21/2021 Immunizations Immunization Administration Dates Next Due COVID-19 (MODERNA) 1st,2nd,3 rd Dose Monovalent 12/10/2020,10/10/2020,09/09/2020 COVID-19 (MODERNA) Monovalen t Original Booster 07/11/2021,10/25/2020,09/27/2020 Fluzone (or Fluarix & Flulav al for VFC) >6mos 09/04/2019 Family History Medical History Relation Name Comments Other Father Jc Buchanan Sepsis Heart attack Maternal Grandfather Elvin Stover Stroke Maternal Grandfather Elvin Stover Cancer Maternal Grandmother Haydee Stover liver cancer Liver cancer Maternal Grandmother Haydee Stover COPD Mother Zoë Buhcanan Copd Kidney cancer Mother Zoë Buchanan Kidney disease Mother Zoë Buchanan Breast cancer Neg Hx Ovarian cancer Neg Hx Relation Name Status Comments Brother 1 Alive Brother 2 Alive Brother 3 Father Jc Buchanan Maternal Grandfather Elvin Stover Maternal Grandmother Haydee Stover Mother Zoë Buchanan Alive Social History Tobacco Use Types Packs/Day Years Used Date Smoking Tobacco: Former Cigarettes 2 30 0 08/29/1989 - 08/29/2019 Smokeless Tobacco: Never Tobacco Cessation:Counseling Given: Not Answered Alcohol Use Standard Drinks/Week Comments Never 0 (1 standard drink = 0.6 oz pur e alcohol) AUDIT-C Answer Date Recorded Q1: How often do you have a drink containing alcohol? Never 06/18/2022 Q2: How many drinks containi ng alcohol do you have on a typical day when you are drinking? Patient does not drink Q3: How often do you have si x or more drinks on one occasion? Never 06/18/2022 PHQ-2 Answer Date Recorded Retired PHQ-9: Brief Depression Severity Measure Score 0 10/15/2022 Abuse Screen Answer Date Recorded Feels Unsafe at Home or Work/School no 06/18/2022 Feels Threatened by Someone no 02/2022 Does Anyone Try to Keep You From Having Contact with Others or Doing Things Outside Your Home? no 06/18/2022 Physical Signs of Abuse Present no 06/18/2022 Housing Stability Answer Date Recorded Current Living Arrangements home 02/2022 Potentially Unsafe Housing Conditions Not on yesenia e 06/18/2022 Disabilities Answer Date Recorded Difficulty Concentrating, Remembering or Making Decisions no 06/18/2022 Difficulty Managing Errands Independently no 06/18/2022 PHQ-2 Answer Date Recorded Retired PHQ-9: Brief Depression Severity Measure Score 0 10/15/2022 Comments No Sex and Gender Information Value Date Recorded Sex Assigned at Not on file Legal Sex Female 11:57 AM EDT Gender Identity Not on file Sexual Orientation Not on file Last Filed Vital Signs Vital Sign Reading Time Taken Comments Blood Pressure 118/76 10/15/2022 10:40 AM EDT Pulse 68 10/15/2022 10:40 AM EDT Temperature 36.9 C (98.5 F) 10/15/2022 10:40 AM EDT Respiratory Rate 16 06/22/2022 11:20 AM EST Oxygen Saturation 99% 10/15/2022 10:40 AM EDT Inhaled Oxygen Concentration - - Weight 65.8 kg (145 lb) 10/15/2022 10:40 AM EDT Height 167.6 cm (5' 6 ) 10/15/2022 10:40 AM EDT Body Mass Index 23.4 10/15/2022 10:40 AM EDT Plan of Treatment Health Maintenance Due Date Last Done Comments Annual Gynecologic Pelvic an d Breast Exam 1970 TDAP/TD VACCINES (1 - Tdap) 1989 COLON CANCER SCREENING 5 YEA R SIGMOIDOSCOPY [address] COLONOGRAPHY 2015 FECAL OCCULT BLOOD TEST 2015 FIT Testing (1 year) 2015 ZOSTER VACCINE (1 of 2) 2020 ANNUAL WELLNESS VISIT 02/21/2021 LIPID PANEL 02/19/2022 02/19/2021 MAMMOGRAM 10/01/2024 10/01/2022, 09/10, 10/01/2022, Additional history exists INFLUENZA VACCINE 02/09/2025 04/23/2023, 09/04/2019 COLOGUARD 06/30/2025 06/30/2022 COLORECTAL CANCER SCREENING 06/30/2025 LUNG CANCER SCREENING Discontinued 10/13/2019 Pneumococcal Vaccine 50+ Completed 03/23/2023 HEPATITIS C SCREENING Completed 11/15/2024 , 04/16/2023, 04/06/2023 Medical Devices Implanted Type Area Sheet Rock Taper Helper Device Identifier Shelf Expiration Date Model / Serial / Lot Icd Acticor 7 Vrt Dx - [id number] - [id number] Implanted:Qty: 1 on 06/30/2021 by Wili Alba MD at [facility] ICD [employer] 03/11/2023 [id number] / [id number] / Ld Icd Plexa Promri Sgl Coil S Dx 65/15 - [id number] - [id number] Implanted:Qty: 1 on 06/30/2021 by Wili Alba MD at [facility] Lead [employer] 04/10/2022 [id number] / [id number] / [id number] Stnt Xience Deb Everolimus Jake 3.5x28mm - [id number] Implanted:Qty: 1 on 02/18/[address] MD at [facility] [employer] 06/25/2021 [id number] / / [id number] Procedures Procedure Name Priority Date/Time Associated Diagnosis Comments MAMMO OUTSIDE FILMS Routine 10/01/2022 2 :12 PM EDT H/O mammogram COLOGUARD Routine 06/30/2022 10:30 PM EST Screening for colon cancer LIPID PANEL Routine 02/19/2021 4:06 AM EDT from Last 3 Months or Most Recently Relevant to Health Maintenance Results * MAMMO Outside Films (10/01/2022 2:12 PM EDT) Narrative SYSTEMGENERATED, DOCUMENTATION - 10/01/2022 2:12 PM EDT This procedure was auto-finalized with no dictation required. Félix Monroe APRN IMG MAMMOGRAPHY ORDERABL ES Final Result * Cologuard - Stool, Per Rectum (06/30/2022 10:30 PM EST) Cologuard Negative Negative 07/16/2022 12:40 AM EST [facility] (CLIA #:[id number]) Comment: NEGATIVE TEST RESULT. A negative Cologuard result indicates a low likelihood that a colorectal cancer (CRC) or advanced adenoma (adenomatous polyps with more advanced pre-malignant features) is present. The chance that a person with a negative Cologuard test has a colorectal cancer is less than 1 in 1500 (negative predictive value >99.9%) or has an advanced adenoma is less than 5.3% (negative predictive value 94.7%). These data are based on a prospective cross-sectional study of 10,000 individuals at average risk for colorectal cancer who were screened with both Cologuard and colonoscopy. (Aleksandr Johnsno et al, N Engl J Med 2014;370(14):6786-0382) The normal value (reference range) for this assay is negative. COLOGUARD RE-SCREENING RECOMMENDATION: Periodic colorectal cancer screening is an important part of preventive healthcare for asymptomatic individuals at average risk for colorectal cancer. Following a negative Cologuard result, the [place] [employer] and U.S. Multi-Society Task Force screening guidelines recommend a Cologuard re-screening interval of 3 years. References: [place] [employer] Guideline for Colorectal Cancer Screening: https://www.cancer.org/cancer/lgwuo-iwutbw-jzjcdd/ilookojvr-jboydadnc-itoqvxj/ac s-rec ommendations.html.; Jonathan DK, Pily CR, Tami GuzmanK, Colorectal Cancer Screening: Recommendations for Physicians and Patients from the U.S. Multi-Society Task Force on Colorectal Cancer Screening , Am J Gastroenterology 2017; 112:2694-8350. TEST DESCRIPTION: Composite algorithmic analysis of stool DNA-biomarkers with hemoglobin immunoassay. Quantitative values of individual biomarkers are not reportable and are not associated with individual biomarker result reference ranges. Cologuard is intended for colorectal cancer screening of adults of either sex, 45 years or older, who are at average-risk for colorectal cancer (CRC). Cologuard has been approved for use by the U.S. FDA. The performance of Cologuard was established in a cross sectional study of average-risk adults aged 50-84. Cologuard performance in patients ages 45 to 49 years was estimated by sub-group analysis of near-age groups. Colonoscopies performed for a positive result may find as the most clinically significant lesion: colorectal cancer [4.0%], advanced adenoma (including sessile serrated polyps greater than or equal to 1cm diameter) [20%] or non- advanced adenoma [31%]; or no colorectal neoplasia [45%]. These estimates are derived from a prospective cross-sectional screening study of 10,000 individuals at average risk for colorectal cancer who were screened with both Cologuard and colonoscopy. (Aleksandr Lazar al, N Engl J Med 2014;370(14):0341-2601.) Cologuard may produce a false negative or false positive result (no colorectal cancer or precancerous polyp present at colonoscopy follow up). A negative Cologuard test result does not guarantee the absence of CRC or advanced adenoma (pre-cancer). The current Cologuard screening interval is every 3 years. ([place] [employer] and U.S. Multi-Society Task Force). Cologuard performance data in a 10,000 patient pivotal study using colonoscopy as the reference method can be accessed at the following location: www.Linekong.Findersfee/results. Additional description of the Cologuard test process, warnings and precautions can be found at [email or web address] Networkrd.com. Stool specimen (specimen) Specimen from rectum / Unknown 06/30/2022 10:30 PM EST 07/02/2022 12:43 PM EST Félix Monroe APRN BODY FLUIDS AND STOOLS O RDERABLES Final Result [facility] (CLIA #:[id number]) [address] [place] [address], * Lipid Panel (02/19/2021 4:06 AM EDT) Total Cholesterol 146 0 - 200 mg/dL 02/19/2021 4:42 AM EDT [facility] Triglycerides 76 0 - 150 mg/dL 02/19/2021 4:42 AM EDT [facility] HDL Cholesterol 55 40 - 60 mg/dL 02/19/2021 4:42 AM EDT [facility] LDL Cholesterol 76 0 - 100 mg/dL 02/19/2021 4:42 AM EDT [facility] VLDL Cholesterol 15 5 - 40 mg/dL 02/19/2021 4:42 AM EDT [facility] LDL/HDL Ratio 1.38 02/19/2021 4:42 AM EDT [facility] Blood Line / Unknown 02/19/2021 4: 06 AM EDT 02/19/2021 4:16 AM EDT Narrative [facility] - 02/19/2021 4:42 AM EDT Cholesterol Reference Ranges (U.S. Department of Health and Human Services ATP III Classifications) Desirable <200 mg/dL Borderline High 200-239 mg/dL High Risk >240 mg/dL Triglyceride Reference Ranges (U.S. Department of Health and Human Services ATP III Classifications) Normal <150 mg/dL Borderline High 150-199 mg/dL High 200-499 mg/dL Very High >500 mg/dL HDL Reference Ranges (U.S. Department of Health and Human Services ATP III Classifcations) Low <40 mg/dl (major risk factor for CHD) High >60 mg/dl ('negative' risk factor for CHD) LDL Reference Ranges (U.S. Department of Health and Human Services ATP III Classifcations) Optimal <100 mg/dL Near Optimal 100-129 mg/dL Borderline High 130-159 mg/dL High 160-189 mg/dL Very High >189 mg/dL Noah St MD LAB BLOOD ORDERABLES Final Res ult [facility]
[address] [place] [address], from Last 3 Months or Most Recently Relevant to Health Maintenance Insurance MEDICARE A & B Advance Directives * CPR (Attempt to Resuscitate) (Latest Code Status on File) Date Activated Date Inactivated Comments 06/18/2022 12:10 AM 06/22/2022 4:23 PM Question Answer Comments Code Status (Patient has no pulse and is not breathing): CPR (Attempt to Resuscitate) Medical Interventions (Patie nt has pulse or is breathing): Full Support Care Teams Career Development Specialist Relationship Specialty Start Date End Date Az David MD [address] [phone] PCP - General Emergency Medicine 11/28/24
--- OUTSIDE RECORDS SUMMARY | 2025-04-11 10:59 | XMS_ITS | Encounter Summary ---
Author Organization [employer] ([place], [place], [place], [place]) Address [address] [place] [address] Care Team Providers Care Screen Tacker Name Role Phone Félix Monroe APRN Primary Care Provider [phone] Encounter Details Date Type Department Care Team (Late st Contact Info) Description 08/30/2019 Transcribed Document [facility] [place] [address] ProviderMaria Esther MD [address] [place], [place] [id number] Social History Tobacco Use Types Packs/Day Years Used Date Smoking Tobacco: Never Assessed Comments Unknown Sex and Gender Information Value Date Recorded Sex Assigned at Not on file Legal Sex Female 6:53 PM CDT Gender Identity Not on file Sexual Orientation Not on file documented as of this encounter Miscellaneous Notes * Cerner Conversion Note - Maria Esther Reyes MD - 08/30/2019 12:01 PM ACCESS SERVICES REPRESENTATIVE Patient: CORRIE SMITH Age: 49 Years Sex: Female : 1970 Chief Complaint Valvular heart surgery Reason for Consultation CKD stage 4 History of Present Illness Ms. Smith is a 49-year-old woman with a past medical history significant for mitral valve disease, hypertension and chronic kidney disease stage IV who is well-known to me from previous hospitalization in outpatient nephrology follow-up. She is undergone valvular heart surgery. Her baseline serum creatinine is approximately 2.1 mg/dL. In the immediate perioperative period, her serum creatinine was initially 2.6 g/dL. However, with postoperative medical management her creatinine has improved down to 2.1 mg which is her baseline. She is interested in smoking cessation. Currently, she is receiving a Cardene drip for blood pressure control. Her postoperative course has been otherwise uncomplicated. She is breathing comfortably. She denies fever, sweats, chills, nausea or vomiting. She has a poor appetite but she denies abdominal pain or diarrhea. She is tolerating some oral nutrition. She reports that her postoperative pain is well-controlled on her current pain medicines. She has no new or worsening physical complaints. Review of Systems A 10 point review of systems was collected and was negative except as mentioned in history of present illness Vital Signs Oxygen Settings (Last) Oxygen Therapy Mode: High flow nasal cannula (08/30/19 08:00:00) Oxygen Flow Rate: 8 Liter/Min (08/30/19 08:00:00) Physical Exam Gen.: Alert, no acute distress, conversant, thin, chronically ill-appearing HEENT: No temporal wasting, no scleral icterus, no conjunctival erythema Neck: Supple no masses Cardiovascular: Dressing over midline sternotomy incision, Normal S1-S2, regular rhythm, normal rate no rub no gallop Pulmonary: Clear to auscultation bilaterally no wheezes or rhonchi, fair air movement, on oxygen per nasal cannula, chest tube in place Gastrointestinal: Abdomen is soft, nontender, nondistended, no guarding Genitourinary: Allison catheter draining clear fabiana urine Musculoskeletal fair muscle tone no significant lower extremity edema Neuro/psych: Mood and affect are appropriate, thoughts are fluent, moves all extremities spontaneously, no focal deficits Skin: No lesions, rashes or ecchymoses, I did not examine the sacral area Assessment/Plan Chronic kidney disease stage IV Valvular heart disease, status post surgery Hypertension Tobacco use disorder Chronic kidney disease stage IV: Her clearance has returned to her previous baseline. She has some postoperative hypertension which is being managed with a Cardene infusion. She has good urine output. Her volume status is stable. She has a poor appetite but she is tolerating oral nutrition. -We will continue to monitor her clearance, urine output, electrolytes and the metabolic sequelae of chronic kidney disease. I'm reassured that she is recovering very well from her cardiovascular surgery Hypertension: She does not seem volume overloaded. She continues to have a [place] catheter. I'll defer to cardiology/cardiac vascular surgery/critical care for adjustments to her antihypertensive medication regimen. I recommend avoiding IVA inhibitor/ARB until she has clinically stabilized. Tobacco use disorder: I have reminded the patient that she must quit using tobacco. She reports that she is energetic and smoking cessation. Mendoza Gallardo M.D. Nephrology Partner with , Dr. Pantoja and Dr. Lopez Note dictated with XTWIP recognition system Problem List/Past Medical History Ongoing CHF, acute on chronic COPD (chronic obstructive pulmonary disease) GERD - Gastro-esophageal reflux disease H/O: TIA History of obstructive sleep apnea HTN - Hypertension Mitral regurgitation NSTEMI, initial episode of care Prolonged QT interval Pulmonary edema Restless legs syndrome RF - Renal failure, Stage 4 Sleep apnea-before weight loss surgery Procedure/Surgical History FLUOROSCOPY OF LEFT HEART USING LOW OSMOLAR CONTRAST (07/21/2019), FLUOROSCOPY OF MULT COR ART USING L OSM CONTRAST (07/21/2019), MEASURE CARDIAC SAMPL & PRESSURE, BILATERAL, PERC (07/21/2019), ULTRASONOGRAPHY OF HEART WITH AORTA (07/21/2019), lap band (2008), ACL Repair right and left knees, bladder tack/sling, hysterectomy. SN - Proc - Procedure: Mitral Valve Repair (08/29/19 10:35:25) Medications Inpatient acetaminophen-HYDROcodone 325 mg-5 mg oral tablet, 2 Tab, Oral, Q4H, PRN albumin human 5% intravenous solution, 12.5 Gram= 250 mL, IV Piggyback, Q1H, PRN amLODIPine, 10 mg= 1 Tab, Oral, Daily ascorbic acid, 500 mg= 1 Tab, Oral, BID aspirin, 81 mg= 1 Tab, Oral, Daily Bactroban 2% nasal ointment, 1 Application, Nostrils Both, BID calcium gluconate Coumadin, 5 mg= 1 Tab, Oral, Daily dexmedetomidine injection 400 mcg + NaCl 0.9% for drip 100 mL Dextrose, 25 Gram= 50 mL, IV Push, 1-Time, PRN Dextrose 5% with 0.2% NaCl intravenous solution 1,000 mL, 1000 mL, IntraVENous DuoNeb 0.5 mg-2.5 mg/3 mL inhalation solution, 3 mL, Nebulized Inhalation , RT_Q4H, PRN fluocinonide 0.05% topical cream, 1 Application, Topical, QID, PRN Insulin regular injection 100 Units + Sodium Chloride 0.9% intravenous solution 100 mL Lactated Ringers Injection intravenous solution 1,000 mL, [...] Sodium Chloride 0.9% intravenous solution 250 mL nitroglycerin injection 25 mg + D5W Premix Diluent for Drip 250 mL Nitrostat, 0.4 mg= 1 Tab, SubLINgual, Q5Min, PRN Normal Saline Flush, 10 mL, IV [...] 650 mg= 2 Tab, Oral, Q6H, PRN Zofran, 4 mg= 2 mL, IV Push, Q4H, PRN Home amLODIPine, 10 mg, Oral, Daily aspirin 81 mg oral delayed release tablet, 81 mg= 1 Tab, Oral, Daily carvedilol, 25 mg, Oral, BID isosorbide mononitrate, 20 mg, Oral, BID nicotine 21 mg/24 hr transdermal film, extended release, 1 Patch, TransDermal, Daily pantoprazole, 40 mg, Oral, Daily Requip 1 mg oral tablet, Oral, At Bedtime Tylenol 325 mg oral tablet, 650 mg= 2 Tab, Oral, Q4H, PRN Allergies codeine (Nausea, Hives, Welts) Social History Alcohol Alcohol Use History Yes. Date/Time of Last Drink: once a year. Substance Abuse Drug Use Hx: Yes. Use in Last 12 Months: Yes. Marijuana/Hashish Recreational Drug Type. Frequency: Daily. Years of Use: 30. Drug Route: Inhaled. Tobacco 10 or more cigarettes (1/2 pack or more)/day in last 30 days Smoking Status. Smokeless tobacco user within last 30 days Smokeless Tobacco Status. Years of Use: 30. Packs/Tins Daily: 2. Last Used: . Years of Use: 30. Second Hand Smoke Exposure: Yes. 10 or more cigarettes (1/2 pack or more)/day in last 30 days Smoking Status. Never Smokeless Tobacco Status. Family History No known family history of kidney disease, kidney transplant or dialysis. Family history is otherwise noncontributory. Diagnostic Results Chest x-ray report reviewed: FINDINGS: A portable view of the chest was obtained. Comparison is made to a prior exam dated 08/29/2019. The endotracheal tube has been removed. There is no other change in support tubes or lines. The patient is status post median sternotomy. Mild cardiomegaly is noted. There has been interval worsening of right basilar opacity and a right pleural effusion. There is likely a very small right pneumothorax, improved from prior. IMPRESSION: 1. Improved right pneumothorax. 2. Worsening right basilar opacity and effusion. Lab Results Test Name Test Result Date/Time pH Art 7.39 08/29/2019 14:58 EST pCO2 Art 39.6 mmHg 08/29/2019 14:58 EST pO2 Art 119.0 mmHg (High) 08/29/2019 14:58 EST HCO3 Art 24.2 mmol/L 08/29/2019 14:58 EST BE Art -0.6 mmol/L 08/29/2019 14:58 EST sO2 Art 99.0 % 08/29/2019 14:58 EST tHb Art 9.1 Gram/dL (Low) 08/29/2019 14:58 EST FHHb <2.4 % 08/29/2019 14:58 EST ctO2 12.6 mmol/L 08/29/2019 14:58 EST FIO2 Art 50 08/29/2019 14:58 EST Delivery Device Type Art Ventilator 08/29/2019 14:58 EST Temperature, F Art 98.6 Deg F 08/29/2019 14:58 EST Art Blood Gas (ABG) Site Arterial Line 08/29/2019 14:58 EST Acceptable Ilir's Test Art Non-Applicable 08/29/2019 14:58 EST Ventilator Mode Art Spontaneous 08/29/2019 14:58 EST Respiratory Rate Art 22.0 08/29/2019 14:58 EST CPAP/PEEP Art 5.0 cmH2O 08/29/2019 14:58 EST Pressure Support Art 8.0 cmH2O 08/29/2019 14:58 EST ABG Num of Draw Attempts 1 08/29/2019 14:58 EST Sodium Level 138 mmol/L 08/30/2019 03:30 EST Potassium Level 3.8 mmol/L 08/30/2019 03:30 EST Potassium Level 3.9 mmol/L 08/29/2019 21:58 EST Potassium Level 4.2 mmol/L 08/29/2019 15:54 EST Chloride Level 109 mmol/L 08/30/2019 03:30 EST Carbon Dioxide Level 25 mmol/L 08/30/2019 03:30 EST Anion Gap 8 (Low) 08/30/2019 03:30 EST Glucose Level 132 mg/dL (High) 08/30/2019 03:30 EST Blood Urea Nitrogen 24 mg/dL (High) 08/30/2019 03:30 EST Creatinine Level 2.10 mg/dL (High) 08/30/2019 03:30 EST eGFR 30 mL/min/1.73m2 (Low) 08/30/2019 03:30 EST eGFR NonAfrican 25 mL/min/1.73m2 (Low) 08/30/2019 03:30 EST Bun/Creatinine 11.4 08/30/2019 03:30 EST Calcium Level 8.8 mg/dL 08/30/2019 03:30 EST Protein Total 5.9 Gram/dL (Low) 08/30/2019 03:30 EST Albumin Level 3.2 Gram/dL (Low) 08/30/2019 03:30 EST Globulin 2.7 Gram/dL 08/30/2019 03:30 EST A/G Ratio 1.2 08/30/2019 03:30 EST Bilirubin Total 0.4 mg/dL 08/30/2019 03:30 EST Bilirubin Direct 0.2 mg/dL 08/30/2019 03:30 EST Alk Phos 78 Units/Liter 08/30/2019 03:30 EST AST 81 Units/Liter (High) 08/30/2019 03:30 EST ALT 26 Units/Liter 08/30/2019 03:30 EST Magnesium Level 2.9 mg/dL (High) 08/30/2019 03:30 EST Device Comment 1 Protocols Followed 08/30/2019 11:43 EST Device Comment 1 Protocols Followed 08/30/2019 06:26 EST Device Comment 1 Protocols Followed 08/30/2019 02:03 EST Device Comment 1 Protocols Followed 08/30/2019 00:17 EST Glucose POC2 149 mg/dL (High) 08/30/2019 11:43 EST Glucose POC2 121 mg/dL (High) 08/30/2019 06:26 EST Glucose POC2 140 mg/dL (High) 08/30/2019 04:03 EST Glucose POC2 138 mg/dL (High) 08/30/2019 02:03 EST Glucose POC2 117 mg/dL (High) 08/30/2019 00:17 EST Glucose POC2 137 mg/dL (High) 08/29/2019 21:57 EST Glucose POC2 147 mg/dL (High) 08/29/2019 21:09 EST Glucose POC2 151 mg/dL (High) 08/29/2019 20:05 EST Glucose POC2 154 mg/dL (High) 08/29/2019 19:02 EST Glucose POC2 147 mg/dL (High) 08/29/2019 18:14 EST Glucose POC2 157 mg/dL (High) 08/29/2019 17:14 EST Glucose POC2 152 mg/dL (High) 08/29/2019 15:53 EST Glucose POC2 133 mg/dL (High) 08/29/2019 14:57 EST Glucose POC2 102 mg/dL 08/29/2019 13:51 EST Glucose POC2 122 mg/dL (High) 08/29/2019 12:58 EST Glucose POC2 145 mg/dL (High) 08/29/2019 12:11 EST WBC 14.9 K/uL (High) 08/30/2019 03:30 EST WBC 13.4 K/uL (High) 08/29/2019 21:58 EST WBC 14.1 K/uL (High) 08/29/2019 15:54 EST RBC 3.24 Million/uL (Low) 08/30/2019 03:30 EST RBC 3.13 Million/uL (Low) 08/29/2019 21:58 EST RBC 2.85 Million/uL (Low) 08/29/2019 15:54 EST Hgb 9.9 g/dL (Low) 08/30/2019 03:30 EST Hgb 9.5 g/dL (Low) 08/29/2019 21:58 EST Hgb 8.7 g/dL (Low) 08/29/2019 15:54 EST Hct 29.9 % (Low) 08/30/2019 03:30 EST Hct 28.9 % (Low) 08/29/2019 21:58 EST Hct 26.0 % (Low) 08/29/2019 15:54 EST MCV 92.3 fL 08/30/2019 03:30 EST MCV 92.3 fL 08/29/2019 21:58 EST MCV 91.2 fL 08/29/2019 15:54 EST MCH 30.6 pg 08/30/2019 03:30 EST MCH 30.4 pg 08/29/2019 21:58 EST MCH 30.5 pg 08/29/2019 15:54 EST MCHC 33.1 Gram/dL 08/30/2019 03:30 EST MCHC 32.9 Gram/dL 08/29/2019 21:58 EST MCHC 33.5 Gram/dL 08/29/2019 15:54 EST Platelet Count 103 K/uL (Low) 08/30/2019 03:30 EST Platelet Count 103 K/uL (Low) 08/29/2019 21:58 EST Platelet Count 118 K/uL (Low) 08/29/2019 15:54 EST MPV 13.6 fL (High) 08/30/2019 03:30 EST MPV 13.1 fL (High) 08/29/2019 21:58 EST MPV 13.2 fL (High) 08/29/2019 15:54 EST RDW 13.8 % 08/30/2019 03:30 EST RDW 13.6 % 08/29/2019 21:58 EST RDW 13.6 % 08/29/2019 15:54 EST Neut % 89.0 % (High) 08/30/2019 03:30 EST Neut # 13.28 K/uL (High) 08/30/2019 03:30 EST Lymph % 5.6 % (Low) 08/30/2019 03:30 EST Lymph # 0.83 x10(3)/uL (Low) 08/30/2019 03:30 EST [place] % 4.7 % 08/30/2019 03:30 EST [place] # 0.70 K/uL 08/30/2019 03:30 EST Eos % 0.0 % 08/30/2019 03:30 EST Eos # 0.00 x10(3)/uL 08/30/2019 03:30 EST Baso % 0.1 % 08/30/2019 03:30 EST Baso # 0.02 x10(3)/uL 08/30/2019 03:30 EST Slide Review No 08/30/2019 03:30 EST Slide Review No 08/29/2019 21:58 EST Slide Review No 08/29/2019 15:54 EST IG# 0.09 x10(3)/uL (High) 08/30/2019 03:30 EST IG% 0.60 % 08/30/2019 03:30 EST Electronically signed by Nir, [facility] Conversion Bank Note Designer Cerner at 10/28/2022 7:19 PM CDT documented in this encounter Plan of Treatment Upcoming Encounters Date Type Department Care Team (Late st Contact Info) Description 04/12/2025 7:30 AM EDT Hospital Encounter [facility] Operating Room [address] [place] [id number] Bill Graham MD [address] [place], [place] [id number] 04/12/2025 7:30 AM EDT Anesthesia Event [facility] Operating Room [address] [place] [address] Lucio Szymanski MD [address] [place] [address] 04/12/2025 7:30 AM EDT - 04/12/2025 8:[address] [facility] Operating Room 1 [place] [address] Bill Graham MD [address] [place] [address] (LAPAROSCOPIC PERITONEAL DIALYSIS CATHETER INSERTION) Scheduled Procedures Name Priority Associated Diagnoses Date/Ti me LAPAROSCOPY, WITH PERITONEAL DIALYSIS CATHETER INSERTION Chronic kidney disease, stage V (HCC) 04/12/2025 7:30 AM EDT documented as of this encounter Visit Diagnoses Not on filedocumented in this encounter Care Teams Screen Tacker Relationship Specialty Start Date End Date Félix Monroe, POULTRY HATCHERY MANAGER [address] [facility] [address] [place] [address] PCP - General Nurse Practitioner 08/25/22 documented as of this encounter
--- OUTSIDE RECORDS SUMMARY | 2025-04-11 10:59 | XMS_ITS | Encounter Summary ---
Author Organization [employer] ([place], [place], [place], [place]) Address [address] [place] [address] Care Team Providers Care Bilingual Receptionist Name Role Phone Monroe Félixterence Singh APRN Primary Care Provider [phone] Encounter Details Date Type Department Care Team (Late st Contact Info) Description 08/30/2019 Transcribed Document [facility] [place] Family Medicine [address] [place] [address] ProviderMaria Esther MD [address] [place], [place] [address] Social History Tobacco Use Types Packs/Day Years Used Date Smoking Tobacco: Never Assessed Comments Unknown Sex and Gender Information Value Date Recorded Sex Assigned at Not on file Legal Sex Female 6:53 PM CDT Gender Identity Not on file Sexual Orientation Not on file documented as of this encounter Miscellaneous Notes * Cerner Conversion Note - Maria Esther Reyes MD - 08/30/2019 3:39 PM DOOR OPENER DATE OF SERVICE: 08/28/2019 RACE: . HEIGHT: 66 inches. WEIGHT: 130 pounds. Body mass index 20.94. SPIROMETRY: FVC is 2.82 L, 74% predicted, impaired. FEV1 is 1.81 L, 60% predicted, impaired. FEV1/FVC 64% predicted, correlates with obstructive pattern. FEF 25%-75% is 36% predicted, impaired, suggestive of mid flow obstruction. Peak flow meter, PEF is 263 L, 62% predicted, impaired. LUNG VOLUMES/PLETHYSMOGRAPHY: The test was not done. DIFFUSION CAPACITY: DLCO adjusted is 16.6 L, 70% predicted, mildly impaired. Flow volume curve was done, showed reproducible shape with accepted criteria. The curve is showing early scoping suggestive of obstructive pattern. Overall, pulmonary function test shows: 1-Moderate obstructive pattern. 2-Bronchodilator test was not done. 3-Lung volume test was not done. 4-Mild impaired DLCO. /[id number] di MD Young MA/AQ / MA / MODL /[id number] Electronically signed by Nir, [facility] Conversion Industrial Green Systems Designer Cerner at 10/28/2022 7:13 PM CDT documented in this encounter Plan of Treatment Upcoming Encounters Date Type Department Care Team (Late st Contact Info) Description 04/12/2025 7:30 AM EDT Hospital Encounter [facility] Operating Room [address] [place] [address] Bill Graham MD [address] [place] [address] 04/12/2025 7:30 AM EDT Anesthesia Event [facility] Operating Room [address] [place] [address] Lucio Szymanski MD [address] [place] [address] 04/12/2025 7:30 AM EDT - 04/12/2025 8:55 AM EDT Surgery [facility] Operating Room [address] [place] [address] Bill Graham MD [address] [place] [address] (LAPAROSCOPIC PERITONEAL DIALYSIS CATHETER INSERTION) Scheduled Procedures Name Priority Associated Diagnoses Date/Ti me LAPAROSCOPY, WITH PERITONEAL DIALYSIS CATHETER INSERTION Chronic kidney disease, stage V (HCC) 04/12/2025 7:30 AM EDT documented as of this encounter Visit Diagnoses Not on filedocumented in this encounter Care Teams Bilingual Receptionist Relationship Specialty Start Date End Date Félix Monroe, OYSTER BUYER [address] [facility] [address] [place] [address] PCP - General Nurse Practitioner 08/25/22 documented as of this encounter
--- OUTSIDE RECORDS SUMMARY | 2025-04-11 10:59 | XMS_ITS | Encounter Summary ---
Author Organization [employer] ([place], [place], [place], [place]) Address [address] [address] Care Team Providers Care Inside Sales Manager Name Role Phone Félix Monroe APRN Primary Care Provider [phone] Encounter Details Date Type Department Care Team (Late st Contact Info) Description 08/31/2019 Transcribed Document [facility] [place] [address] [place] [address] ProviderMaria Esther MD [address] [place] [address] Social History Tobacco Use Types Packs/Day Years Used Date Smoking Tobacco: Never Assessed Comments Unknown Sex and Gender Information Value Date Recorded Sex Assigned at Not on file Legal Sex Female 6:53 PM CDT Gender Identity Not on file Sexual Orientation Not on file documented as of this encounter Miscellaneous Notes * Cerner Conversion Note - Historical ProviderMD - 08/31/2019 5:00 PM TAX EXAMINER Chart Check - Review Order Profile Entered On: 08/31/2019 14:12 EST Performed On: 08/31/2019 15:00 EST by GRECIA FOLEY RN Chart Check Powerplans Initiated/Discontinued as Appropriate : Yes All Active Orders Reviewed : Yes GRECIA FOLEY RN - 08/31/2019 14:12 EST Electronically signed by Evaristo Loyola Conversion Transportation Project Manager Cerner at 10/28/2022 7:20 PM CDT documented in this encounter Plan of Treatment Upcoming Encounters Date Type Department Care Team (Late st Contact Info) Description 04/12/2025 7:30 AM EDT Hospital Encounter [facility] Operating Room [address] [place] [address] Bill Graham MD [address] [facility] [address] [place] [address] 04/12/2025 7:30 AM EDT Anesthesia Event [facility] Operating Room [address] [place] [address] Lucio Szymanski MD [address] [place] [address] 04/12/2025 7:30 AM EDT - 04/12/2025 8:55 AM EDT Surgery [facility] Operating Room [address] [place] [address] Bill Graham MD [address] [facility] [address] [place] [phone] (LAPAROSCOPIC PERITONEAL DIALYSIS CATHETER INSERTION) Scheduled Procedures Name Priority Associated Diagnoses Date/Ti me LAPAROSCOPY, WITH PERITONEAL DIALYSIS CATHETER INSERTION Chronic kidney disease, stage V (HCC) 04/12/2025 7:30 AM EDT documented as of this encounter Visit Diagnoses Not on filedocumented in this encounter Care Teams Inside Sales Manager Relationship Specialty Start Date End Date Félix Monroe, MEDICAL TRANSCRIBER [address] [facility] [address] [place] [address] PCP - General Nurse Practitioner 08/25/22 documented as of this encounter
--- OUTSIDE RECORDS SUMMARY | 2025-04-11 10:59 | XMS_ITS | Encounter Summary ---
Author Organization [employer] ([place], [place], [place], [place]) Address [address] [place] [address] Care Team Providers Care Bobbin Washer Name Role Phone eFr Félix Singh MICHAEL Primary Care Provider [phone] Encounter Details Date Type Department Care Team (Late st Contact Info) Description 09/01/2019 Transcribed Document [facility] [place] Family Medicine [address] [place] [address] ProviderMaria Esther MD [address] [place] [address] Social History Tobacco Use Types Packs/Day Years Used Date Smoking Tobacco: Never Assessed Comments Unknown Sex and Gender Information Value Date Recorded Sex Assigned at Not on file Legal Sex Female 6:53 PM CDT Gender Identity Not on file Sexual Orientation Not on file documented as of this encounter Miscellaneous Notes * Cerner Conversion Note - Historical ProviderMD - 09/01/2019 2:00 AM PRODUCT MARKETING DIRECTOR All Around Presser Details Entered On: 09/01/2019 7:46 EST Performed On: 09/01/2019 2:00 EST by Latia Gonzalez RN Order Details Transport Mode Order Detail : Wheelchair Isolation Precautions Order Detail : Standard Precautions Order Detail : 0 IV Order Detail : 1 Oxygen Order Detail : 1 Nurse Collect Order Detail : 0 Lift/Transfer : Minimal Central Line Order Detail : No Room Service : Appropriate Arterial Line : No Latia Gonzalez RN - 09/01/2019 7:46 EST documented in this encounter Plan of Treatment Upcoming Encounters Date Type Department Care Team (Late st Contact Info) Description 04/12/2025 7:30 AM EDT Hospital Encounter [facility] [place] Operating Room [address] [place] [address] Bill Graham MD [address] [facility] [address] [place] [address] 04/12/2025 7:30 AM EDT Anesthesia Event [facility] [place] Operating Room [address] [place] [address] Lucio Szymanski MD [address] [place] [address] 04/12/2025 7:30 AM EDT - 04/12/2025 8:[address] [facility] [place] Operating Room [address] [place] [address] [place] [address] [place] [address] [address] [place] [address] (LAPAROSCOPIC PERITONEAL DIALYSIS CATHETER INSERTION) Scheduled Procedures Name Priority Associated Diagnoses Date/Ti me LAPAROSCOPY, WITH PERITONEAL DIALYSIS CATHETER INSERTION Chronic kidney disease, stage V (HCC) 04/12/2025 7:30 AM EDT documented as of this encounter Visit Diagnoses Not on filedocumented in this encounter Care Teams Bobbin Washer Relationship Specialty Start Date End Date Félix Monroe, GUN WELDER [address] [facility] [address] [place] [address] PCP - General Nurse Practitioner 08/25/22 documented as of this encounter
--- OUTSIDE RECORDS SUMMARY | 2025-04-11 10:59 | XMS_ITS | Encounter Summary ---
Author Organization [employer] ([place], [place], [place], [place]) Address [address] [place] [address] Care Team Providers Care Machine Stapler Name Role Phone Fer Félix Francisco RODRIGUEZ Primary Care Provider [phone] Encounter Details Date Type Department Care Team (Late st Contact Info) Description 08/30/[address] [facility] Family Medicine [address] [place] [address] ProviderMaria Esther MD [address], [place] [id number] Social History Tobacco Use Types Packs/Day Years Used Date Smoking Tobacco: Never Assessed Comments Unknown Sex and Gender Information Value Date Recorded Sex Assigned at Not on file Legal Sex Female 6:53 PM CDT Gender Identity Not on file Sexual Orientation Not on file documented as of this encounter Miscellaneous Notes * Cerner Conversion Note - Maria Esther Reyes MD - 08/30/2019 12:37 PM TECHNICAL SOLUTIONS DIRECTOR On Going Discharge Planning Entered On: 08/30/2019 12:38 EST Performed On: 08/30/2019 12:37 EST by SIMRAN RANDALL, RN-Position Classification SpecialistBeam Worker Progress Note Discharge Arrangements : Patient Post-Acute [...] Person : Other: OP Cardiac Rehab SIMRAN RANDALL RN-Position Classification Specialist - 08/30/2019 12:37 EST Narrative Progress Note Narrative Progress Note : CM note 08/29/19 Day 1 - Mitral Valve Repair Hx Htn, Mitral Insufficiency, Pul Edema, RENETTA, COPD, Tobacco Use Moderate Readmission Risk CTS/PT Pt on vent; spouse Bola @ bedside. 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 OP Cardiac Rehab discussed and he says he knows she needs it but it will be up to her to do it. Historical Progress Note : OP Cardiac Rehab referral placed to [facility]; DCP - likely home with spouse pending therapy recommendation. ZAINA GUERRERO Rn-Position Classification Specialist - 08/29/19 15:30:00 SIMRAN RANDALL RN-Position Classification Specialist - 08/30/2019 12:37 EST Electronically signed by [facility] Conversion Tailor Women'S Garment Alteration Cerner at 10/28/2022 7:17 PM CDT documented in this encounter Plan of Treatment Upcoming Encounters Date Type Department Care Team (Late st Contact Info) Description 04/12/2025 7:30 AM EDT Hospital Encounter [facility] Operating Room 1 [place] [address] Bill Graham MD [address] [place] [address] [address] 04/12/2025 7:30 AM EDT Anesthesia Event [facility] Operating Room 1 [place] [address] Lucio Szymanski MD [address] [place] [address] 04/12/2025 7:30 AM EDT - 04/12/2025 8:55 AM EDT Surgery [facility] Operating Room 1 [place] [address] Bill Graham MD [address] [facility] [address] [place] [address] (LAPAROSCOPIC PERITONEAL DIALYSIS CATHETER INSERTION) Scheduled Procedures Name Priority Associated Diagnoses Date/Ti me LAPAROSCOPY, WITH PERITONEAL DIALYSIS CATHETER INSERTION Chronic kidney disease, stage V (HCC) 04/12/2025 7:30 AM EDT documented as of this encounter Visit Diagnoses Not on filedocumented in this encounter Care Teams Machine Stapler Relationship Specialty Start Date End Date Félix Monroe, VIDEO CAMERA OPERATOR [address] [facility] [address] [place] [address] PCP - General Nurse Practitioner 08/25/22 documented as of this encounter
--- OUTSIDE RECORDS SUMMARY | 2025-04-11 10:59 | XMS_ITS | Encounter Summary ---
Author Organization [employer] ([place], [place], [place], [place]) Address [address] [address] Care Team Providers Care Flatwork Tier Name Role Phone Fer Félix Singh APRN Primary Care Provider [phone] Encounter Details Date Type Department Care Team (Late st Contact Info) Description 08/30/2019 Transcribed Document [facility] Family Medicine [address] [place] [address] ProviderMaria Esther MD [address] [place], [place] [address] Social History Tobacco Use Types Packs/Day Years Used Date Smoking Tobacco: Never Assessed Comments Unknown Sex and Gender Information Value Date Recorded Sex Assigned at Not on file Legal Sex Female 6:53 PM CDT Gender Identity Not on file Sexual Orientation Not on file documented as of this encounter Miscellaneous Notes * Cerner Conversion Note - Maria Esther Reyes MD - 08/30/2019 9:05 AM AUXILIARY EQUIPMENT TENDER UM Authorization Entered On: 08/30/2019 9:06 EST Performed On: 08/30/2019 9:05 EST by JESSICA FAGAN RN Primary Insurance Authorization Authorization and Policy Numbers : Insurance 1 Health Plan: [employer] Policy Number: [id number] Authorization Number: [id number] Insurance Primary Name : Osvaldo SIDDIQI [id number] Authorization Status-Primary : Admit approved Reference Number-Primary : [id number] Authorization Number-Primary : auth pending per [facility] notes Number of Days Authorized-Primary : 6 Day(s) Authorized Service Begin Date-Primary : 08/29/2019 EST Authorized Service End Date-Primary : 09/04/2019 EST Authorization Comments-Primary : IP auth from 08/29 to 09/04 noted on availity Historical Authorization Comments-Primary : No Authorization Comments Found JESSICA FAGAN, RN - 08/30/2019 9:05 EST Electronically signed by [facility] Conversion Barrel Burner Cerner at 10/28/2022 7:21 PM CDT documented in this encounter Plan of Treatment Upcoming Encounters Date Type Department Care Team (Late st Contact Info) Description 04/12/2025 7:30 AM EDT Hospital Encounter [facility] Operating Room 1 [place] [address] [place] [address] [place] [address] [place] [address] 04/12/2025 7:30 AM EDT Anesthesia Event [facility] Operating Room 1 [place] [address] Lucio Szymanski MD [address] [place] [address] 04/12/2025 7:30 AM EDT - 04/12/2025 8:55 AM EDT Surgery [facility] Operating Room 1 [place] [address] Bill Graham MD [address] [place] [address] [address] (LAPAROSCOPIC PERITONEAL DIALYSIS CATHETER INSERTION) Scheduled Procedures Name Priority Associated Diagnoses Date/Ti me LAPAROSCOPY, WITH PERITONEAL DIALYSIS CATHETER INSERTION Chronic kidney disease, stage V (HCC) 04/12/2025 7:30 AM EDT documented as of this encounter Visit Diagnoses Not on filedocumented in this encounter Care Teams Flatwork Tier Relationship Specialty Start Date End Date Félix Monroe, FINGER GRIP MACHINE OPERATOR [address] [facility] [address] [place] [address] PCP - General Nurse Practitioner 08/25/22 documented as of this encounter
--- OUTSIDE RECORDS SUMMARY | 2025-04-11 10:59 | XMS_ITS | Encounter Summary ---
Author Organization [employer] ([place], [place], [place], [place]) Address [address] [place] [address] Care Team Providers Care Senior Dynamics Crm Developer Name Role Phone Fer Félix Francisco RODRIGUEZ Primary Care Provider [phone] Encounter Details Date Type Department Care Team (Late st Contact Info) Description 08/31/2019 Transcribed Document [facility] Family Medicine [address] [place] [address] ProviderMaria Esther MD [address] [place], [place] [address] Social History Tobacco Use Types Packs/Day Years Used Date Smoking Tobacco: Never Assessed Comments Unknown Sex and Gender Information Value Date Recorded Sex Assigned at Not on file Legal Sex Female 6:53 PM CDT Gender Identity Not on file Sexual Orientation Not on file documented as of this encounter Miscellaneous Notes * Cerner Conversion Note - Maria Esther Reyes MD - 08/31/2019 10:46 AM ELECTRONIC TEST TECHNICIAN On Going Discharge Planning Entered On: 08/31/2019 10:48 EST Performed On: 08/31/2019 10:46 EST by ZAINA GUERRERO Rn-Tube BlowerDividend Clerk Progress Note Discharge Arrangements : Patient Post-Acute [...] Pt/Fam/Support Person : Other: OP Cardiac Rehab Is the Patient Meeting Medical Necessity : Yes ZAINA GUERRERO Rn-Tube Blower - 08/31/2019 10:46 EST Narrative Progress Note Narrative Progress Note : Day 3/POD 3 Mitral Repair; 02=6L/91%; ERWIN d/c; INR 1.6; paced; on transfer to [facility], DCP: monitor for home oxygen need; home with spouse. Historical Progress Note : Message sent to PCP finder re: Pt request for PCP ref. pt's Mother, oZë Buchanan - [phone] @ BS SIMRAN RANDALL RN-Tube Blower - 08/30/19 12:50:38 CM met w/pt and mother @ BS. NGT, MVR POD 2. for PCP ref - pt would like Dr Zelaya for PCP in [facility] SIMRAN RANDALL RN-Tube Blower - 08/30/19 12:41:58 CM note 08/29/19 Day 1 - Mitral Valve Repair Hx Htn, Mitral Insufficiency, Pul Edema, RENETTA, COPD, Tobacco Use Moderate Readmission Risk CTS/PT Pt on vent; spouse Bola @ bedside. 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 OP Cardiac Rehab discussed and he says he knows she needs it but it will be up to her to do it. SIMRAN RANDALL RN-Tube Blower - 08/30/19 12:38:15 OP Cardiac Rehab referral placed to [facility]; DCP - likely home with spouse pending therapy recommendation. ZAINA GUERRERO Rn-Tube Blower - 08/29/19 15:30:00 ZAINA GUERRERO Rn-Tube Blower - 08/31/2019 10:46 EST documented in this encounter Plan of Treatment Upcoming Encounters Date Type Department Care Team (Late st Contact Info) Description 04/12/2025 7:30 AM EDT Hospital Encounter [facility] Operating Room 1 [place] [address] Bill Graham MD [address] [facility] [address] [place] [address] 04/12/2025 7:30 AM EDT Anesthesia Event [facility] Operating Room 1 [place] [address] Lucio Szymanski MD [address] [place] [address] 04/12/2025 7:30 AM EDT - 04/12/2025 8:55 AM EDT Surgery [facility] Operating Room 1 [place] [address] Bill Graham MD [address] [facility] [place] [address] (LAPAROSCOPIC PERITONEAL DIALYSIS CATHETER INSERTION) Scheduled Procedures Name Priority Associated Diagnoses Date/Ti me LAPAROSCOPY, WITH PERITONEAL DIALYSIS CATHETER INSERTION Chronic kidney disease, stage V (HCC) 04/12/2025 7:30 AM EDT documented as of this encounter Visit Diagnoses Not on filedocumented in this encounter Care Teams Senior Dynamics Crm Developer Relationship Specialty Start Date End Date Félix Monroe, KISS MACHINE OPERATOR [address] [facility] [address] [place] [address] PCP - General Nurse Practitioner 08/25/22 documented as of this encounter
--- OUTSIDE RECORDS SUMMARY | 2025-04-11 10:59 | XMS_ITS | Encounter Summary ---
Author Organization [employer] ([place], [place], [place], [place]) Address [address] [address] Care Team Providers Care Bar Machine Operator Multiple Spindle Name Role Phone Félix Monroe APRN Primary Care Provider [phone] Encounter Details Date Type Department Care Team (Late st Contact Info) Description 08/31/2019 Transcribed Document [facility] Family Medicine [address] [place] [address] ProviderMaria Esther MD [address] [place] [address] Social History Tobacco Use Types Packs/Day Years Used Date Smoking Tobacco: Never Assessed Comments Unknown Sex and Gender Information Value Date Recorded Sex Assigned at Not on file Legal Sex Female 6:53 PM CDT Gender Identity Not on file Sexual Orientation Not on file documented as of this encounter Miscellaneous Notes * Cerner Conversion Note - Maria Esther ProviderMD - 08/31/2019 8:29 AM PUNCH OUT CREW MEMBER Attempt to Treat, PT Entered On: 08/31/2019 8:30 EST Performed On: 08/31/2019 8:29 EST by MARKUS CARR, PT Attempt to Treat Unable to Treat Due To : Patient Refusal Inability to Treat Comment : Pt refusing PT at this time due to pain. RN and family present in room. We will check back as able. MARKUS CARR, PT - 08/31/2019 8:29 EST Electronically signed by [facility] Conversion Field Sampling Technician Cerner at 10/28/2022 7:12 PM CDT documented in this encounter Plan of Treatment Upcoming Encounters Date Type Department Care Team (Late st Contact Info) Description 04/12/2025 7:30 AM EDT Hospital Encounter [facility] Operating Room 1 [place] [address] [place] [address] [place] [address] [address] [place] [address] 04/12/2025 7:30 AM EDT Anesthesia Event [facility] Operating Room 1 [place] [address] Lucio Szymanski MD [address] [place] [address] 04/12/2025 7:30 AM EDT - 04/12/2025 8:55 AM EDT Surgery [facility] Operating Room [address] [place] [address] [place] [address] [place] [address] [address] [place] [address] (LAPAROSCOPIC PERITONEAL DIALYSIS CATHETER INSERTION) Scheduled Procedures Name Priority Associated Diagnoses Date/Ti me LAPAROSCOPY, WITH PERITONEAL DIALYSIS CATHETER INSERTION Chronic kidney disease, stage V (HCC) 04/12/2025 7:30 AM EDT documented as of this encounter Visit Diagnoses Not on filedocumented in this encounter Care Teams Bar Machine Operator Multiple Spindle Relationship Specialty Start Date End Date Félix Monroe, MEAT GRINDER [address] [facility] [address] [place] [address] PCP - General Nurse Practitioner 08/25/22 documented as of this encounter
--- OUTSIDE RECORDS SUMMARY | 2025-04-11 11:00 | XMS_ITS | Encounter Summary ---
Author Organization [employer] ([place], [place], [place], [place]) Address [address] [place] [address] Care Team Providers Care Advertisement Distributor Name Role Phone Félix Monroe APRN Primary Care Provider [phone] Encounter Details Date Type Department Care Team (Late st Contact Info) Description 07/21/2019 Transcribed Document [facility] Family Medicine [address] [place] [address] ProviderMaria Esther MD [address] [place] [address] Social History Tobacco Use Types Packs/Day Years Used Date Smoking Tobacco: Never Assessed Comments Unknown Sex and Gender Information Value Date Recorded Sex Assigned at Not on file Legal Sex Female 6:53 PM CDT Gender Identity Not on file Sexual Orientation Not on file documented as of this encounter Miscellaneous Notes * Cerner Conversion Note - Maria Esther Reyes MD - 07/21/2019 8:38 AM TITLE DEPARTMENT MANAGER Patient: [facility]: [id number] Age: 49 years Sex: Female : 1970 Associated Diagnoses: None Author: GILES BLAS MD-INT Basic Information SUBJECTIVE: Patient is seen and evaluated Review of Systems Constitutional: No fever, No chills. Eye: No recent visual problem, No icterus, No blurring, No visual disturbances. Ear/Nose/Mouth/Throat: No decreased hearing, No sore throat. Respiratory: No shortness of breath, No cough. Cardiovascular: No chest pain, No palpitations, No syncope. Gastrointestinal: No nausea, No vomiting, No hematemesis. Genitourinary: No dysuria, No hematuria. Hematology/Lymphatics: No bleeding tendency, No swollen lymph glands. Endocrine: No cold intolerance, No heat intolerance. Musculoskeletal: No joint pain, No muscle pain. Integumentary: No rash, No pruritus, No breakdown. Neurologic: No confusion, No numbness. Psychiatric: No depression, Not delusional. Health Status Allergies: Allergic Reactions (Selected) Severity Not Documented Codeine- No reactions were documented., No qualifying data available Current medications: (Selected) Inpatient Medications Ordered Ativan: 0.5 mg, Oral, Q6H, PRN: Anxiety Core.25 mg, Oral, BID MiraLax: 17 Gram, Oral, Daily, PRN: Constipation Nitrostat: 0.4 mg, SubLINgual, Q5Min, PRN: Chest Pain Tylenol: 650 mg, Oral, Q4H, PRN: Fever amLODIPine: 10 mg, Oral, Daily aspirin: 81 mg, Oral, Daily bumetanide: 1 mg, IV Push, Daily cloNIDine: 0.1 mg, Oral, Q3H, PRN: Hypertension heparin injection 25,000 Units + NaCl 0.45% Premix Diluent 250 mL: Titrate, IntraVENous hydrALAZINE: 10 mg, IV Push, Q2H, PRN: Hypertension influenza virus vaccine, inactivated: 0.5 mL, IntraMuscular, [id number] nicotine 21 mg/24 hr transdermal film, extended release: 1 Patch, TransDermal, Daily, Medications (13) Active Scheduled: (6) amLODIPine 10 mg tab 10 mg 1 Tab, Oral, Daily aspirin EC 81 mg tab 81 mg 1 Tab, Oral, Daily bumetanide 1 mg/4 mL inj 1 mg 4 mL, IV Push, Daily carvedilol 6.25 mg tab 6.25 mg 1 Tab, Oral, BID influenza vaccine, quadrivalent 0.5 mL, IntraMuscular, [id number] nicotine 21 mg/24 hr patch 1 Patch, TransDermal, Daily Continuous: (1) heparin/NaCl 0.45% 25,000 Units + Premix Diluent NaCl 0.45% 250 mL 250 mL, IntraVENous PRN: (6) acetaminophen 325 mg tab 650 mg 2 Tab, Oral, Q4H cloNIDine 0.1 mg tab 0.1 mg 1 Tab, Oral, Q3H hydrALAZINE 20 mg/1 mL inj 10 mg 0.5 mL, IV Push, Q2H LORazepam 0.5 mg tab 0.5 mg 1 Tab, Oral, Q6H nitroglycerin 0.4 mg tab # 25 btl 0.4 mg 1 Tab, SubLINgual, Q5Min polyethylene glycol 3350 pwd 17 g pkt 17 Gram 1 Packet, Oral, Daily Problem list: Medical HTN - Hypertension / SNOMED CT [id number] / Confirmed, Active Problems (2) COPD (chronic obstructive pulmonary disease) HTN - Hypertension OBJECTIVE: Physical Examination VS/Measurements Vitals Signs (last 24 hrs) Last Charted Minimum Maximum Temp 97.8 (JUL 21:16) 97.8 (JUL 21:16) 97.7 (JUL 20:12) Apical HR 75 (JUL 21:57) 75 (JUL 21:57) 75 (JUL 21:57) Mon HR 72 (JUL 21:) 72 (JUL 21:) 82 (JUL 21 02:30) Resp Rate 20 (JUL 21:) 17 (JUL 20 21:12) H 35 (JUL 21 05:40) SBP H 182 (JUL 21:) H 154 (JUL 20:12) H 191 (JUL 21 05:46) DBP H 125 (JUL 21:15) H 98 (JUL 21 04:00) H 132 (JUL 21:46) MAP 145 (JUL 21:) 101 (JUL 21 00:00) 158 (JUL 21:46) SpO2 100 (JUL 21:) L 92 (JUL 21 00:00) 100 (JUL 21:) General: Alert and oriented, No acute distress. Eye: Extraocular movements are intact, Normal conjunctiva. Sclera: Not icteric. HENT: Normocephalic, Normal hearing, Oral mucosa is moist. Neck: Supple, Non-tender, No jugular venous distention, No lymphadenopathy. Respiratory: Lungs are clear to auscultation, Respirations are non-labored, Breath sounds are equal, Symmetrical chest wall expansion. Cardiovascular: Normal rate, Regular rhythm, No murmur, No gallop, Good pulses equal in all extremities, No edema. Gastrointestinal: Soft, Non-tender, Non-distended, Normal bowel sounds, No organomegaly. Genitourinary: No costovertebral angle tenderness. Lymphatics: No lymphadenopathy neck, axilla, groin. Musculoskeletal: Normal range of motion, Normal strength, No tenderness, No swelling, No deformity. Integumentary: Warm, [place], Moist, No rash. Neurologic: Alert, Oriented, Normal sensory, Normal motor function, No focal deficits, Cranial Nerves II-XII are grossly intact, Normal deep tendon reflexes. Psychiatric: Cooperative, Appropriate mood & affect, Normal judgment. Review / Management Results review: Labs (Last four charted values) WBC 8.9 (JUL 21) 9.0 (JUL 20) HB L 10.6 (JUL 21) L 10.8 (JUL 20) HCT L 31.4 (JUL 21) L 32.5 (JUL 20) Plt L 142 (JUL 21) L 148 (JUL 20) Na 141 (JUL 21) 140 (JUL 20) K L 3.2 (JUL 21) C 2.8 (JUL 20) Cl 107 (JUL 21) 104 (JUL 20) CO2 28 (JUL 21) 29 (JUL 20) BUN H 23 (JUL 21) H 24 (JUL 20) Cr H 2.00 (JUL 21) H 2.00 (JUL 20) Glu R H 110 (JUL 21) H 118 (JUL 20) Ca 8.5 (JUL 21) 8.8 (JUL 20) PT 10.7 (JUL 20) INR 1.0 (JUL 20) AST 12 (JUL 21) 13 (JUL 20) ALT L 12 (JUL 21) 13 (JUL 20) ALK P 81 (JUL 21) 80 (JUL 20) T Bili 0.6 (JUL 21) 0.4 (JUL 20) PTN L 6.1 (JUL 21) L 6.3 (JUL 20) ALB L 2.8 (JUL 21) L 2.9 (JUL 20) Troponin H 0.064 (JUL 21) H 0.082 (JUL 20) , JUL 21 01:22 141 107 H 23 / H 110 L 3.2 28 H 2.00 \ JUL 21 01:22 \ L 10.6 / 8.9 L 142 / L 31.4 \, Radiology Results (Last 48 hours) [id number] -- 2019 19:20 CR Chest 1 Vw Portable (2019 20:30) Result: Study: Chest single viewCLINICAL HISTORY: Leaking heart valve, CHFCOMPARISON: None availableDescription: Heart size is within normal limits with mild venouscongestion. Interstitial prominence suggesting mild edema. There is noairspace consolidation or effusion.IMPRESSION: Venous congestion with mild interstitial edema . Impression and Plan Severe MR - patient reports history of valvular disease in the past ( leaky valve ), and has had 2 prior admissions for CHF over past 15 years. She has been off ACEi and BB for past 3-4 months due to lack of insurance. - proBNP 12,183 - repeat echo in the AM - start lasix 40mg iv daily - cardiology and CT surgery consulted NSTEMI - trop elevated at 0.08, cannot exclude type 1 NSTEMI. Continue to trend cardiac enzymes, will continue heparin gtt - echo in the AM - cardiology consulted - given aspirin and brilinta in ED - restart coreg Acute pulmonary edema, 2/2 severe MR Hypokalemia, K 2.8 - replete Acute kidney injury, likely prerenal. Unknown baseline Cr. - avoid nephrotoxic agents, trend renal indices - may need nephrology evaluation if plans for [facility] - check FEUrea, renal ultrasound Anemia, Hgb 10.8 - normocytic, normochromic Thrombocytopenia - Plt 148, continue to monitor while on antiplatelets and heparin gtt Prolonged QTc - 554 - avoid QT-prolonging medications Tobacco abuse, cigarettes - tobacco cessation counseling - placed on nicotine patch GI prophylaxis: Placed on Protonix DVT prophylaxis: Placed on Heparin drip and Sequential compression device Code status: Full code Time spent: 36 minutes documented in this encounter Plan of Treatment Upcoming Encounters Date Type Department Care Team (Late st Contact Info) Description 04/12/2025 7:30 AM EDT Hospital Encounter [facility] Operating Room 1 [place] [address] Bill Graham MD [address] [place] [address] [address] [place] [address] 04/12/2025 7:30 AM EDT Anesthesia Event [facility] Operating Room 1 [place] [address] Lucio Szymanski MD [address] [place] [address] 04/12/2025 7:30 AM EDT - 04/12/2025 8:55 AM EDT Surgery [facility] Operating Room 1 [place] [address] Bill Graham MD [address] [facility] [address] [place], [place] [id number] (LAPAROSCOPIC PERITONEAL DIALYSIS CATHETER INSERTION) Scheduled Procedures Name Priority Associated Diagnoses Date/Ti me LAPAROSCOPY, WITH PERITONEAL DIALYSIS CATHETER INSERTION Chronic kidney disease, stage V (HCC) 04/12/2025 7:30 AM EDT documented as of this encounter Visit Diagnoses Not on filedocumented in this encounter Care Teams Advertisement Distributor Relationship Specialty Start Date End Date Félix Monroe, BOG CUTTER [address] [facility] [address] [place] [address] PCP - General Nurse Practitioner 08/25/22 documented as of this encounter
--- OUTSIDE RECORDS SUMMARY | 2025-04-11 11:00 | XMS_ITS | Encounter Summary ---
Author Organization [employer] ([place], [place], [place], [place]) Address [address] [address] Care Team Providers Care Armored Car Guard Name Role Phone Fer Félix Singh MICHAEL Primary Care Provider [phone] Encounter Details Date Type Department Care Team (Late st Contact Info) Description 09/03/2019 Transcribed Document [facility] [place] Family Medicine [address] [place] [address] ProviderMaria Esther MD [address] [place] [address] Social History Tobacco Use Types Packs/Day Years Used Date Smoking Tobacco: Never Assessed Comments Unknown Sex and Gender Information Value Date Recorded Sex Assigned at Not on file Legal Sex Female 6:53 PM CDT Gender Identity Not on file Sexual Orientation Not on file documented as of this encounter Miscellaneous Notes * Cerner Conversion Note - Historical ProviderMD - 09/03/2019 4:00 AM SASH CLAMP OPERATOR Height and Weight, Routine Entered On: 09/03/2019 4:21 EST Performed On: 09/03/2019 4:00 EST by [facility]ili [facility] Height and Weight, Routine Routine Weight Source : Bed scale Routine Weight Entry Format : [place] Routine Weight, Pounds : 139 lb Routine Weight, Ounces : 4 oz Routine Weight Calculation : 63.3 kg Height Source : Measured Height Entry Format : [place] Height, Feet : 0 ft Height, Inches : 65 Inch Clinical Height : 165.1 cm Body Surface Area (BSA), Routine : 1.7 m2 Body Mass Index (BMI), Routine : 23.22 kg/m2 Wili Cabrera Care Asst-Health Unit Coord - 09/03/2019 4:20 EST documented in this encounter Plan of Treatment Upcoming Encounters Date Type Department Care Team (Late st Contact Info) Description 04/12/2025 7:30 AM EDT Hospital Encounter [facility] Operating Room 1 [place] [address] [place] [address] [place] [address] [address] [place] [address] 04/12/2025 7:30 AM EDT Anesthesia Event [facility] Operating Room 1 [place] [address] Lucio Szymanski MD [address] [place] [address] 04/12/2025 7:30 AM EDT - 04/12/2025 8:55 AM EDT Surgery [facility] Operating Room 1 [place] [address] Bill Graham MD [address] [place] [address] (LAPAROSCOPIC PERITONEAL DIALYSIS CATHETER INSERTION) Scheduled Procedures Name Priority Associated Diagnoses Date/Ti me LAPAROSCOPY, WITH PERITONEAL DIALYSIS CATHETER INSERTION Chronic kidney disease, stage V (HCC) 04/12/2025 7:30 AM EDT documented as of this encounter Visit Diagnoses Not on filedocumented in this encounter Care Teams Armored Car Guard Relationship Specialty Start Date End Date Félix [place], REFRIGERATOR ROOM CLERK [address] [facility] [address] [place], [place] [id number] PCP - General Nurse Practitioner 08/25/22 documented as of this encounter
--- OUTSIDE RECORDS SUMMARY | 2025-04-11 11:00 | XMS_ITS | Encounter Summary ---
Author Organization [employer] ([place], [place], [place], [place]) Address [address] [place] [address] Care Team Providers Care Overhauler Helper Name Role Phone [place] Francisco RODRIGUEZ Primary Care Provider [phone] Encounter Details Date Type Department Care Team (Late st Contact Info) Description 07/21/2019 Transcribed Document [facility] [place] [address] [place] [address] ProviderMaria [place] MD [address] [place], [place] [id number] Social History Tobacco Use Types Packs/Day Years Used Date Smoking Tobacco: Never Assessed Comments Unknown Sex and Gender Information Value Date Recorded Sex Assigned at Not on file Legal Sex Female 6:53 PM CDT Gender Identity Not on file Sexual Orientation Not on file documented as of this encounter Miscellaneous Notes * Cerner Conversion Note - Maria Esther Reyes MD - 07/21/2019 6:34 PM POLICE JUSTICE Patient: [facility]E [facility]: [id number] Age: 49 Years Sex: Female : 1970 Reason for Consultation Severe MR History of Present Illness Corrie mSith is a 49-year-old female with a known history of valvular heart disease, congestive heart failure, and tobacco abuse. She has had 2 hospital admissions for CHF over the past 15 years. She recently presented to [facility] with worsening shortness of breath. She stopped taking her cardiac medication 4 months ago he lost her insurance. At the ER at [facility] she had a transthoracic echocardiogram showed severe MR. She also had an elevated pro BNP of 31,000 as well as an elevated troponin at 0.85. The patient was given a loading dose of aspirin and Brilinta, given nitroglycerin and intravenous Lasix, and was started on a heparin drip and then was transferred to [facility] Dr. Alesha Emery has been asked to evaluate this lady for mitral valve surgery. Review of Systems Constitutional: Denies fevers, chills, night sweats Eye: Denies vision problems, HEENT: Denies sore throat or nasal congestion Respiratory: Admits to shortness of breath, orthopnea, BARNES Cardiovascular: Denies Chest pain, admits to PND, BARNES Gastrointestinal: Denies nausea, vomiting, diarrhea, constipation, hematochezia or melena Genitourinary: Denies dysuria Endocrine: Denies diabetes or thyroid problems Musculoskeletal: Denies joint pain Integumentary: Denies rash or itching Neurologic: Denies strokes or seizures Vital Signs T: 36.4 ??C TMIN: 36.3 ??C TMAX: 36.6 ??C HR: 70(Monitored) RR: 20 BP: 142/98 SpO2: 100% HT: 167.64 cm WT: 61.96 kg BMI: 21.4 Oxygen Settings (Last) Oxygen Therapy Mode: Room air (07/21/19 09:00:00) Oxygen Flow Rate: 2 Liter/Min (07/21/19 06:15:00) Physical Exam General: Well-developed well-nourished female in no acute distress Eye: PERRL, EOMI, normal conjunctiva HENT: Normocephalic, atraumatic Neck: Supple, no adenopathy, no carotid bruits no vein distention. Lungs: bilateral crackles, no wheezing Heart: Regular rhythm without gallops. There is a grade 3/6 systolic ejection murmur loudest at the apex Abdomen: Soft, non-tender, non-distended, normal bowel sounds Skin: warm, dry and pink, no rashes or lesions Neurologic: Alert and oriented, no focal deficits Assessment/Plan 49-year-old female with known history for valvular heart disease, and congestive heart failure. Transthoracic echocardiogram on 07/21/19 (today) showed an ejection fraction of 50-55%, thickening of the mitral valve leaflets appearance of rheumatic actual disease. Severe mitral regurgitation. Severely dilated left atrium. Normal 3 cusp aortic valve, and normal tricuspid valve. She had a loading dose of Brilinta at [facility]. She has not undergone coronary angiography. She will need mitral valve repair versus replacement, timing by Dr. Alesha Emery. Creatinine is 2.0. Renal is seeing Nonrheumatic mitral valve disorder, unspecified, Nonrheumatic mitral valve disorder, unspecified VTE Prophylaxis - Medical Sequential Compression Device Start: 07/20/19 20:54:00 EST, Bilateral, Length: Knee High, While patient is in bed, Continuous Order (MIKAYLA THOMAS) Provider Information Primary Care Physician - BRENT, NO PRIM Attending Physician - KISHORE IVAN, Admitting Physician - KISHORE IVAN, Consulting Physician - ALESHA EMERY MD-CAT (call in am)- Severe MR, pulmonary edema Consulting Physician - MARILUZ SHEPHERD MD-CAR - NSTEMI, ?acute MR/CHF Consulting Physician - SHAWANDA LUIS MD-NEP - RENAL FAILURE, PULMONARY EDEMA Consulting Physician - YVETTE PRATT MD-CAR Referring Physician - BRENT, NO PRIM Problem List/Past Medical History Ongoing COPD (chronic obstructive pulmonary disease) HTN - Hypertension Historical No qualifying data Medications Inpatient amLODIPine, 10 mg= 1 Tab, Oral, Daily aspirin, 81 mg= 1 Tab, Oral, Daily Ativan, 0.5 mg= 1 Tab, Oral, Q6H, PRN bumetanide, 1 mg= 1 Tab, Oral, Daily cloNIDine, 0.1 mg= 1 Tab, Oral, Q3H, PRN Coreg, 25 mg= 1 Tab, Oral, BID heparin injection 25,000 Units + NaCl 0.45% Premix Diluent 250 mL hydrALAZINE, 10 mg= 0.5 mL, IV Push, Q2H, PRN Imdur, 15 mg= 0.5 Tab, Oral, Daily MiraLax, 17 Gram= 1 Packet, Oral, Daily, PRN nicotine 21 mg/24 hr transdermal film, extended release, 1 Patch, TransDermal, Daily Protonix, 40 mg= 1 Tab, Oral, Daily Tylenol, 650 mg= 2 Tab, Oral, Q4H, PRN Home No active home medications Allergies codeine Social History Alcohol Alcohol Use History Yes. Date/Time of Last Drink: once a year. Substance Abuse Drug Use Hx: Yes. Use in Last 12 Months: Yes. Tobacco Years of Use: 30. Second Hand Smoke Exposure: Yes. 10 or more cigarettes (1/2 pack or more)/day in last 30 days Smoking Status. Never Smokeless Tobacco Status. Family History There has history of heart murmur has leaky valve Lab Results Test Name Test Result Date/Time Sodium Level 141 mmol/L 07/21/2019 01:22 EST Sodium Level 140 mmol/L 2019 19:48 EST Potassium Level 3.2 mmol/L (Low) 07/21/2019 01:22 EST Potassium Level 2.8 mmol/L (Critical) 2019 19:48 EST Chloride Level 107 mmol/L 07/21/2019 01:22 EST Chloride Level 104 mmol/L 2019 19:48 EST Carbon Dioxide Level 28 mmol/L 07/21/2019 01:22 EST Carbon Dioxide Level 29 mmol/L 2019 19:48 EST Anion Gap 9 07/21/2019 01:22 EST Anion Gap 10 2019 19:48 EST Glucose Level 110 mg/dL (High) 07/21/2019 01:22 EST Glucose Level 118 mg/dL (High) 2019 19:48 EST Blood Urea Nitrogen 23 mg/dL (High) 07/21/2019 01:22 EST Blood Urea Nitrogen 24 mg/dL (High) 2019 19:48 EST Creatinine Level 2.00 mg/dL (High) 07/21/2019 01:22 EST Creatinine Level 2.00 mg/dL (High) 2019 19:48 EST eGFR 32 mL/min/1.73m2 (Low) 07/21/2019 01:22 EST eGFR 32 mL/min/1.73m2 (Low) 2019 19:48 EST eGFR NonAfrican 26 mL/min/1.73m2 (Low) 07/21/2019 01:22 EST eGFR NonAfrican 26 mL/min/1.73m2 (Low) 2019 19:48 EST Bun/Creatinine 11.5 07/21/2019 01:22 EST Bun/Creatinine 12.0 2019 19:48 EST Calcium Level 8.5 mg/dL 07/21/2019 01:22 EST Calcium Level 8.8 mg/dL 2019 19:48 EST Protein Total 6.1 Gram/dL (Low) 07/21/2019 01:22 EST Protein Total 6.3 Gram/dL (Low) 2019 19:48 EST Albumin Level 2.8 Gram/dL (Low) 07/21/2019 01:22 EST Albumin Level 2.9 Gram/dL (Low) 2019 19:48 EST Globulin 3.3 Gram/dL 07/21/2019 01:22 EST Globulin 3.4 Gram/dL 2019 19:48 EST A/G Ratio 0.8 (Low) 07/21/2019 01:22 EST A/G Ratio 0.9 (Low) 2019 19:48 EST Bilirubin Total 0.6 mg/dL 07/21/2019 01:22 EST Bilirubin Total 0.4 mg/dL 2019 19:48 EST Alk Phos 81 Units/Liter 07/21/2019 01:22 EST Alk Phos 80 Units/Liter 2019 19:48 EST AST 12 Units/Liter 07/21/2019 01:22 EST AST 13 Units/Liter 2019 19:48 EST ALT 12 Units/Liter (Low) 07/21/2019 01:22 EST ALT 13 Units/Liter 2019 19:48 EST Magnesium Level 1.9 mg/dL 07/21/2019 01:22 EST Hgb A1C 5.5 % 07/21/2019 01:22 EST eAVG Glucose 111 mg/dL 07/21/2019 01:22 EST Creatinine Urine Random 31 mg/dL 07/21/2019 00:41 EST Urea Nitrogen Urine Random 206 mg/dL 07/21/2019 00:41 EST Troponin I Ultra 0.038 ng/mL 07/21/2019 12:04 EST Troponin I Ultra 0.064 ng/mL (High) 07/21/2019 01:22 EST Troponin I Ultra 0.082 ng/mL (High) 2019 19:48 EST ProBNP 20694 pg/mL (High) 2019 19:48 EST WBC 8.9 K/uL 07/21/2019 01:22 EST WBC 9.0 K/uL 2019 19:48 EST RBC 3.50 Million/uL (Low) 07/21/2019 01:22 EST RBC 3.56 Million/uL (Low) 2019 19:48 EST Hgb 10.6 g/dL (Low) 07/21/2019 01:22 EST Hgb 10.8 g/dL (Low) 2019 19:48 EST Hct 31.4 % (Low) 07/21/2019 01:22 EST Hct 32.5 % (Low) 2019 19:48 EST MCV 89.7 fL 07/21/2019 01:22 EST MCV 91.3 fL 2019 19:48 EST MCH 30.3 pg 07/21/2019 01:22 EST MCH 30.3 pg 2019 19:48 EST MCHC 33.8 Gram/dL 07/21/2019 01:22 EST MCHC 33.2 Gram/dL 2019 19:48 EST Platelet Count 142 K/uL (Low) 07/21/2019 01:22 EST Platelet Count 148 K/uL (Low) 2019 19:48 EST MPV 12.6 fL (High) 07/21/2019 01:22 EST MPV 12.9 fL (High) 2019 19:48 EST RDW 12.8 % 07/21/2019 01:22 EST RDW 12.7 % 2019 19:48 EST Neut % 72.0 % (High) 07/21/2019 01:22 EST Neut % 74.7 % (High) 2019 19:48 EST Neut # 6.43 K/uL (High) 07/21/2019 01:22 EST Neut # 6.68 K/uL (High) 2019 19:48 EST Lymph % 20.0 % 07/21/2019 01:22 EST Lymph % 18.1 % (Low) 2019 19:48 EST Lymph # 1.78 x10(3)/uL 07/21/2019 01:22 EST Lymph # 1.62 x10(3)/uL 2019 19:48 EST Valley % 5.2 % 07/21/2019 01:22 EST Valley % 5.0 % 2019 19:48 EST Valley # 0.46 K/uL 07/21/2019 01:22 EST Valley # 0.45 K/uL 2019 19:48 EST Eos % 1.9 % 07/21/2019 01:22 EST Eos % 1.6 % 2019 19:48 EST Eos # 0.17 x10(3)/uL 07/21/2019 01:22 EST Eos # 0.14 x10(3)/uL 2019 19:48 EST Baso % 0.6 % 07/21/2019 01:22 EST Baso % 0.4 % 2019 19:48 EST Baso # 0.05 x10(3)/uL 07/21/2019 01:22 EST Baso # 0.04 x10(3)/uL 2019 19:48 EST Slide Review No 07/21/2019 01:22 EST Slide Review No 2019 19:48 EST IG# 0.03 x10(3)/uL 07/21/2019 01:22 EST IG# 0.02 x10(3)/uL 2019 19:48 EST IG% 0.30 % 07/21/2019 01:22 EST IG% 0.20 % 2019 19:48 EST PT 10.7 Second(s) 2019 19:48 EST INR 1.0 2019 19:48 EST PTT Heparin 72.0 Second(s) 07/21/2019 17:45 EST PTT Heparin 61.3 Second(s) 07/21/2019 11:39 EST PTT Heparin 104.1 Second(s) (Critical) 07/21/2019 05:29 EST PTT Heparin 42.0 Second(s) (Low) 2019 19:54 EST TSH 1.010 mcInt Units/mL 2019 19:48 EST Electronically signed by [facility] Conversion Dredge Mechanic Cerner at 10/28/2022 7:05 PM CDT documented in this encounter Plan of Treatment Upcoming Encounters Date Type Department Care Team (Late st Contact Info) Description 04/12/2025 7:30 AM EDT Hospital Encounter [facility] Operating Room 1 [place] [address] Bill Graham MD [address] [place] [address] [address] [place] [address] 04/12/2025 7:30 AM EDT Anesthesia Event [facility] Operating Room 1 [place] [address] Lucio Szymanski MD [address] [place] [address] 04/12/2025 7:30 AM EDT - 04/12/2025 8:55 AM EDT Surgery [facility] Operating Room 1 [place] [address] Bill Graham MD [address] [facility] [address] [place] [address] (LAPAROSCOPIC PERITONEAL DIALYSIS CATHETER INSERTION) Scheduled Procedures Name Priority Associated Diagnoses Date/Ti me LAPAROSCOPY, WITH PERITONEAL DIALYSIS CATHETER INSERTION Chronic kidney disease, stage V (HCC) 04/12/2025 7:30 AM EDT documented as of this encounter Visit Diagnoses Not on filedocumented in this encounter Care Teams Overhauler Helper Relationship Specialty Start Date End Date Félix [place], GRINDER GEAR [address] [facility] [address] [place] [address] PCP - General Nurse Practitioner 08/25/22 documented as of this encounter
--- OUTSIDE RECORDS SUMMARY | 2025-04-11 11:00 | XMS_ITS | Encounter Summary ---
Author Organization [employer] ([place], [place], [place], [place]) Address [address] [address] Care Team Providers Care Leather Production Artisan Name Role Phone Félix [place] APRN Primary Care Provider [phone] Encounter Details Date Type Department Care Team (Late st Contact Info) Description 09/02/2019 Transcribed Document [facility] [place] Family Medicine [address] [place] [address] ProviderMaria [place] MD [address] [place] [address] Social History Tobacco Use Types Packs/Day Years Used Date Smoking Tobacco: Never Assessed Comments Unknown Sex and Gender Information Value Date Recorded Sex Assigned at Not on file Legal Sex Female 6:53 PM CDT Gender Identity Not on file Sexual Orientation Not on file documented as of this encounter Miscellaneous Notes * Cerner Conversion Note - Maria Esther Reyes MD - 09/02/2019 10:58 AM TOE PUNCHER Patient: CORRIE [place] Age: 49 years Sex: [...] to 80. C.I. is maintaining at 2.9 2 POD #3 stable, without without SOB or other complaints O2???5 L, PW/paced???80 as backup NSR???80 2 POD #4 steady progress, without SOB or other complaints O2???off, NSR???67 PW???intact/disconnected Health Status Allergies: Allergies (1) Active Reaction gerald Fu Physical Examination Intake and Output 24 hour intake: Total 1,347 ml 24 hour output: Urinary catheter 1,285 ml, Total 1,295 ml ERWIN 10ml / 24 hours General: Alert and oriented, No acute distress. HENT: Normocephalic. Neck: Supple. Respiratory: Respirations are non-labored. Breath sounds: Diminished. Cardiovascular: Normal rate, Regular rhythm, No edema, Paced at 80. Integumentary: Warm, Dry, Gays, Aquacel dressing is C/D/I. Neurologic: Alert, Oriented. Psychiatric: Cooperative, Appropriate mood & affect. Review / Management Results review: SEP 02 04:32 136 103 H 24 / 103 3.6 30 H 2.00 \ SEP 02 04:32 \ L 9.4 / 10.0 L 148 / L 29.5 \ Blood Gases (Current Encounter/Past 24 Hours) No Blood Gas Results Found (Past 24 Hours) Coagulation Results (Current Encounter/Past 24 Hours) PT 71.0 Second(s) HI 09/02/2019 06:02 INR 6.8 CRIT 09/02/2019 06:02 . Labs (Last four charted values) WBC 10.0 (FEB 22) 9.9 (FEB 21) H 11.4 (FEB 20) H 21.9 (FEB 19) HB L 9.4 (FEB 22) L 8.8 (FEB 21) L 8.7 (FEB 20) L 10.5 (FEB 19) HCT L 29.5 (FEB 22) L 26.8 (FEB 21) L 26.7 (FEB 20) L 30.8 (FEB 19) Plt L 148 (FEB 22) L 100 (FEB 21) L 97 (FEB 20) L 133 (FEB 19) Na 136 (FEB 22) 136 (FEB 21) L 135 (FEB 20) 138 (FEB 19) K 3.6 (FEB 22) 3.5 (FEB 21) 3.8 (FEB 20) 4.3 (FEB 19) Cl 103 (FEB 22) 104 (FEB 21) 106 (FEB 20) 109 (FEB 19) CO2 30 (FEB 22) 29 (FEB 21) 24 (FEB 20) 25 (FEB 19) BUN H 24 (FEB 22) H 25 (FEB 21) H 23 (FEB 20) H 24 (FEB 19) Cr H 2.00 (FEB 22) H 1.90 (FEB 21) H 1.80 (FEB 20) H 2.10 (FEB 19) Glu R 103 (FEB 22) 104 (FEB 21) H 129 (FEB 20) H 132 (FEB 19) Ca 9.1 (FEB 22) 8.7 (FEB 21) L 8.3 (FEB 20) 8.8 (FEB 19) PT H 71.0 (FEB 22) H 48.3 (FEB 21) H 16.8 (FEB 20) 11.9 (FEB 19) INR C 6.8 (FEB 22) H 4.6 (FEB 21) H 1.6 (FEB 20) 1.1 (FEB 19) PTT 31.7 (AUG 29) H 34.8 (AUG 28) AST H 81 (AUG 30) 10 (AUG 28) ALT 26 (AUG 30) 14 (AUG 28) ALK P 78 (AUG 30) 78 (AUG 28) T Bili 0.4 (AUG 30) 0.7 (AUG 28) PTN L 5.9 (AUG 30) 7.3 (AUG 28) ALB L 3.2 (AUG 30) 3.5 (AUG 28) Radiology Results (Last 48 hours) [id number] -- 08/29/2019 07:08 CR Chest 1 Vw Portable (09/01/2019 07:08) Result: PORTABLE CHEST 09/01/2019 4:00 AM HISTORY: Pneumothorax.COMPARISON: 1 day prior.FINDINGS: The heart is stable in size. The patient is status post mediansternotomy. The [place]-Siddharth catheter has been removed. There has been nochange in bibasilar opacities or pleural effusions. The osseousstructures are unremarkable . IMPRESSION: Stable bibasilar opacities and pleural effusions.Images reviewed, interpreted, and dictated by Dr. Corie Moncada.Transcribed by Chauncey Cosby PA-C.I have personally viewed, interpreted and dictated the examination. Ihave read and agree with the above final transcribed report. CR Chest 1 Vw Portable (09/02/2019 08:19) Result: PORTABLE CHEST SINGLE VIEWHISTORY: Shortness of breath. Pneumothorax. COMPARISON: One day earlier.FINDINGS: Bilateral pulmonary opacities are again seen compatible withatelectasis and effusions. The lungs hughes are unchanged. There is nopneumothorax. The cardiac silhouette is stable. Patient is status post mitral valve replacement. IMPRESSION: No significant change. Impression and Plan Plan: 08/30/19 POD#1 Daily PT/INR Coumadin 5mg PO Daily MT D/C without any immediate complications Probable D/C Mediastinal ERWIN tomorrow. Improvement in right apical ptx when ERWIN returned to wall suction Paced 90 C.I. 2.0 D/C NG 08/31/19 POD#2 INR 1.6 Paced 80 C.I. >2.9 ERWIN drain D/C without any immediate complications and the pt tolerated well Transfer to [facility] 09/01/19 NSR???80, PW/paced 80 backup INR???4.6 today up from 1.6 yesterday, with Coumadin 5 mg Hold Coumadin today, come back in at lower dose Nephrology: CKD4 Cr- 1.9, probably her baseline O2???5 L weaning 09/02/19 NSR???67 PW??? INTACT INR???6.8 up from or 4.6 D/C Coumadin, not a home med Nephrology:CKD4 Cr- 2.0 O2???off EF 50-55% per echo 07/21/19 DVT Prophylaxis: [...] (transient ischemic attack) - Pre-Op Diagnosis, Medical. Electronically signed by Evaristo Loyola Conversion Traffic And Transport Planner Cerner at 10/28/2022 7:21 PM CDT documented in this encounter Plan of Treatment Upcoming Encounters Date Type Department Care Team (Late st Contact Info) Description 04/12/2025 7:30 AM EDT Hospital Encounter [facility] Operating Room 1 [place] [phone] [place] [address] [place] [address] [address] [place] [address] 04/12/2025 7:30 AM EDT Anesthesia Event [facility] Operating Room 1 [place] [phone] Lucio Szymanski MD [address] [place] [address] 04/12/2025 7:30 AM EDT - 04/12/2025 8:55 AM EDT Surgery [facility] Operating Room 1 [place] [id number] Bill Graham MD [address] [facility] [address] [place] [address] (LAPAROSCOPIC PERITONEAL DIALYSIS CATHETER INSERTION) Scheduled Procedures Name Priority Associated Diagnoses Date/Ti me LAPAROSCOPY, WITH PERITONEAL DIALYSIS CATHETER INSERTION Chronic kidney disease, stage V (HCC) 04/12/2025 7:30 AM EDT documented as of this encounter Visit Diagnoses Not on filedocumented in this encounter Care Teams Leather Production Artisan Relationship Specialty Start Date End Date Félix [place], LITIGATION LEGAL SECRETARY [address] [facility] [address] [place] [address] PCP - General Nurse Practitioner 08/25/22 documented as of this encounter
--- OUTSIDE RECORDS SUMMARY | 2025-04-11 11:00 | XMS_ITS | Encounter Summary ---
Author Organization [employer] ([place], [place], [place], [place]) Address [address] [address] Care Team Providers Care Lens Coating Technician Name Role Phone Félix Monroe APRN Primary Care Provider [phone] Encounter Details Date Type Department Care Team (Late st Contact Info) Description 07/22/2019 Transcribed Document [facility] Radiology 1 [place] [address] Radha Villa MD [address] [place] [address] [place] [address] Social History Tobacco Use Types Packs/Day Years Used Date Smoking Tobacco: Never Assessed Comments Unknown Sex and Gender Information Value Date Recorded Sex Assigned at Not on file Legal Sex Female 6:53 PM CDT Gender Identity Not on file Sexual Orientation Not on file documented as of this encounter Miscellaneous Notes * Cerner Conversion Note - Radha Villa MD - 07/22/2019 10:01 PM EST Patient: CORRIE SMITH Age: 49 years Sex: Female : 1970 Associated Diagnoses: None Author: RADHA VILLA MD-[facility] NEPHROLOGY PROGRESS NOTE SUBJECTIVE ,seen earlier today. sitting up at edge of the bed. no c/o. no sob. BP acceptable. Good UOP per pt MEDICATIONS Medications by Classification Cardiovascular isosorbide mononitrate (Imdur) - 15 mg, Oral, ER Tab, Daily, Routine carvedilol (Coreg) - 25 mg, Oral, Tab, BID, Routine amLODIPine - 10 mg, Oral, Tab, Daily, Routine cloNIDine - 0.1 mg, Oral, Tab, Q3H, PRN for Hypertension, Routine GI pantoprazole (Protonix) - 40 mg, Oral, EC Tab, Daily, Routine polyethylene glycol 3350 (MiraLax) - 17 Gram, Oral, Powder, Daily, PRN for Constipation, Routine Pain Meds aspirin - 81 mg, Oral, EC Tab, Daily, Routine acetaminophen (Tylenol) - 650 mg, Oral, Tab, Q4H, PRN for Fever, Routine Sedatives LORazepam (Ativan) - 0.5 mg, Oral, Tab, Q6H, PRN for Anxiety, Routine Other nicotine (nicotine 21 mg/24 hr transdermal film, extended re - 1 Patch, TransDermal, Patch, Daily, Routine Undefined Medications bumetanide - 1 mg, Oral, Tab, Daily, Routine heparin 25,000 Units + NaCl 0.45% Premix Diluent 250 mL (hep - 250 mL, Bag Volume (mL) = 250, IntraVENous hydrALAZINE - 10 mg, IV Push, Inj, Q2H, PRN for Hypertension, Routine OBJECTIVE: GENERAL: awake, in no distress VITAL SIGNS Vitals Signs (last 24 hrs) Last Charted Minimum Maximum Temp 98 (JUL 22:38) 97.9 (JUL 22 17:47) 98 (JUL 22:38) Mon HR 76 (JUL 22:) 61 (JUL 22 02:24) 80 (JUL 22 10:05) Resp Rate 20 (JUL 22:) 20 (JUL 21 22:00) 20 (JUL 21 22:00) SBP H 154 (JUL 22:) 119 (JUL 22 10:05) H 155 (JUL 21 22:29) DBP H 102 (JUL 22:) 80 (JUL 22 14:24) H 102 (JUL 22:) MAP 117 (JUL 22:) 95 (JUL 22 14:24) 117 (JUL 22:38) SpO2 97 (JUL 22:) L 93 (JUL 22 02:24) 97 (JUL 22:38) Intake & Output Totals Last 24 Hours (7a-7a) Intake (4 Events) Medications (104 mL) Oral Intake (200 mL) Output (3 Events) Urine Voided (Volume) (1500 mL) Input Total: 304 mL Output Total: 1500 mL Balance: -1196 mL Intake & Output Totals Last 24 Hours (7a-7a) Intake (4 Events) Medications (104 mL) Oral Intake (200 mL) Output (3 Events) Urine Voided (Volume) (1500 mL) Input Total: 304 mL Output Total: 1500 mL Balance: -1196 mL HEENT: normocephalic atraumatic without lesions. EYES: PERRLA, EOMI NECK: Supple, no JVD, no bruit, no LN enlargement, no masses CHEST: diminished air entery. No crackles HEART: S1, S2 heard, no gallop or rub ABDOMEN: soft non-tender. No organomegally. +ve bowel sounds EXTREMETIES: no edema. No tender calves. Peripheral pulses not felt SKIN: no rash, no ulcers. Warm and dry NEUROLOGIC: awake. No focal weakness LABORATORY JUL 22 03:25 139 103 H 26 / H 111 L 2.9 31 H 2.10 \ JUL 22 03:25 \ 11.4 / 6.3 L 155 / 34.1 \ ASSESSMENT /PLAN 1.LETY: possibly related to attempts to diurese to control bp and CHF symptoms 2. Hypertension: variable control 3. Hypokalemia. there is concern for hyperaldosternoism (primary) Spironolactone held after first dose yesterday. Observe for now. It appears she will need significant dose of KCL to replace her potassium. 4. CHF: related severe Mitral Valve disease. For possible Angiogram Wednesday. Switched to PO Bumex and spironolactone held to avoid worsening renal functions. We'll follow and hold on diuretics Wednesday AM documented in this encounter Plan of Treatment Upcoming Encounters Date Type Department Care Team (Late st Contact Info) Description 04/12/2025 7:30 AM EDT Hospital Encounter [facility] Operating Room 1 [place] [address] Bill Graham MD [address] [facility] [address] [place] [address] 04/12/2025 7:30 AM EDT Anesthesia Event [facility] Operating Room 1 [place] [address] Lucio Szymanski MD [address] [place] [address] 04/12/2025 7:30 AM EDT - 04/12/2025 8:55 AM EDT Surgery [facility] Operating Room 1 [place] [address] Bill Graham MD [address] [facility] [address] [place] [address] (LAPAROSCOPIC PERITONEAL DIALYSIS CATHETER INSERTION) Scheduled Procedures Name Priority Associated Diagnoses Date/Ti me LAPAROSCOPY, WITH PERITONEAL DIALYSIS CATHETER INSERTION Chronic kidney disease, stage V (HCC) 04/12/2025 7:30 AM EDT documented as of this encounter Visit Diagnoses Not on filedocumented in this encounter Care Teams Lens Coating Technician Relationship Specialty Start Date End Date Félix Monroe, PAIRER ODDS [address] [facility] [address] [place] [address] PCP - General Nurse Practitioner 08/25/22 documented as of this encounter
--- OUTSIDE RECORDS SUMMARY | 2025-04-11 11:00 | XMS_ITS | Encounter Summary ---
Author Organization [employer] ([place], [place], [place], [place]) Address [address] [address] Care Team Providers Care Fashion Styling Intern Name Role Phone Félix Monroe APRN Primary Care Provider [phone] Encounter Details Date Type Department Care Team (Late st Contact Info) Description 07/22/2019 Transcribed Document [facility] Family Medicine [address] [place] [address] ProviderMaria Esther MD [address] [place] [address] Social History Tobacco Use Types Packs/Day Years Used Date Smoking Tobacco: Never Assessed Comments Unknown Sex and Gender Information Value Date Recorded Sex Assigned at Not on file Legal Sex Female 6:53 PM CDT Gender Identity Not on file Sexual Orientation Not on file documented as of this encounter Miscellaneous Notes * Cerner Conversion Note - Maria Esther ProviderMD - 07/22/2019 1:34 PM CONSULTING ENGINEER UM Authorization Entered On: 07/22/2019 13:34 EST Performed On: 07/22/2019 13:34 EST by ALETHEA MEYERS Rn-Utilization Review Primary Insurance Authorization Authorization and Policy Numbers : Insurance 1 Health Plan: SELF PAY Policy Number: Authorization Number: Insurance Primary Name : SELF PAY Authorization Comments-Primary : SELF PAY Historical Authorization Comments-Primary : No Authorization Comments Found ALETHEA MEYERS Rn-Utilization Review - 07/22/2019 13:34 EST documented in this encounter Plan of Treatment Upcoming Encounters Date Type Department Care Team (Late st Contact Info) Description 04/12/2025 7:30 AM EDT Hospital Encounter [facility] Operating Room 1 [place] [address] Bill Graham MD [address] [facility] [address] [place] [address] 04/12/2025 7:30 AM EDT Anesthesia Event [facility] Operating Room 1 [place] [address] Lucio Szymanski MD [address] [place] [address] 04/12/2025 7:30 AM EDT - 04/12/2025 8:55 AM EDT Surgery [facility] Operating Room 1 [place] [address] [place] [address] [place] [address] [address] [place] [address] (LAPAROSCOPIC PERITONEAL DIALYSIS CATHETER INSERTION) Scheduled Procedures Name Priority Associated Diagnoses Date/Ti me LAPAROSCOPY, WITH PERITONEAL DIALYSIS CATHETER INSERTION Chronic kidney disease, stage V (HCC) 04/12/2025 7:30 AM EDT documented as of this encounter Visit Diagnoses Not on filedocumented in this encounter Care Teams Fashion Styling Intern Relationship Specialty Start Date End Date Félix Monroe, ASSOCIATE JAVA DEVELOPER [address] [facility] [address] [place] [address] PCP - General Nurse Practitioner 08/25/22 documented as of this encounter
--- OUTSIDE RECORDS SUMMARY | 2025-04-11 11:00 | XMS_ITS | Encounter Summary ---
Author Organization [employer] Address [address] [place] [address] Care Team Providers Care Feature Writer Name Role Phone Az David MD Primary Care Provider [phone] Reason for Visit * Reason Comments Med Refill Encounter Details Date Type Department Care Team (Late st Contact Info) Description 03/18/2023 Refill [facility] [address] [address] Félix Monroe, MICHAEL [address] [facility] [address] [place] [address] Social History Tobacco Use Types Packs/Day Years Used Date Smoking Tobacco: Former Cigarettes 2 30 0 08/29/1989 - 08/29/2019 Smokeless Tobacco: Never Alcohol Use Standard [...] on file documented as of this encounter Plan of Treatment Not on file documented as of this encounter Visit Diagnoses Not on filedocumented in this encounter Care Teams Feature Writer Relationship Specialty Start Date End Date Az David MD [address] [place] [address] PCP - General Emergency Medicine 11/28/24 documented as of this encounter
--- OUTSIDE RECORDS SUMMARY | 2025-04-11 11:00 | XMS_ITS | Encounter Summary ---
Author Organization [employer] ([place], [place], [place], [place]) Address [address] [address] Care Team Providers Care Certified Hand Therapist Name Role Phone Félix Monroe APRN Primary Care Provider [phone] Encounter Details Date Type Department Care Team (Late st Contact Info) Description 09/01/2019 Transcribed Document [facility] [address] [place] [address] ProviderMaria Esther MD [address] [place] [address] Social History Tobacco Use Types Packs/Day Years Used Date Smoking Tobacco: Never Assessed Comments Unknown Sex and Gender Information Value Date Recorded Sex Assigned at Not on file Legal Sex Female 6:53 PM CDT Gender Identity Not on file Sexual Orientation Not on file documented as of this encounter Miscellaneous Notes * Cerner Conversion Note - Historical ProviderMD - 09/01/2019 5:00 PM GLOBAL SOURCING MANAGER Chart Check - Review Order Profile Entered On: 09/01/2019 17:18 EST Performed On: 09/01/2019 17:00 EST by GRECIA FOLEY RN Chart Check Powerplans Initiated/Discontinued as Appropriate : Yes All Active Orders Reviewed : Yes GRECIA FOLEY RN - 09/01/2019 17:18 EST documented in this encounter Plan of Treatment Upcoming Encounters Date Type Department Care Team (Late st Contact Info) Description 04/12/2025 7:30 AM EDT Hospital Encounter [facility] Operating Room 1 [place] [address] Bill Graham MD [address] [facility] [address] [place] [address] 04/12/2025 7:30 AM EDT Anesthesia Event [facility] Operating Room 1 [place] [address] Lucio Szymanski MD [address] [place] [address] 04/12/2025 7:30 AM EDT - 04/12/2025 8:55 AM EDT Surgery [facility] Operating Room 1 [place] [address] Bill Graham MD [address] [facility] [address] [place] [address] (LAPAROSCOPIC PERITONEAL DIALYSIS CATHETER INSERTION) Scheduled Procedures Name Priority Associated Diagnoses Date/Ti me LAPAROSCOPY, WITH PERITONEAL DIALYSIS CATHETER INSERTION Chronic kidney disease, stage V (HCC) 04/12/2025 7:30 AM EDT documented as of this encounter Visit Diagnoses Not on filedocumented in this encounter Care Teams Certified Hand Therapist Relationship Specialty Start Date End Date Félix Monroe, COILED COIL INSPECTOR [address] [facility] [address] [place] [address] PCP - General Nurse Practitioner 08/25/22 documented as of this encounter
--- OUTSIDE RECORDS SUMMARY | 2025-04-11 11:00 | XMS_ITS | Encounter Summary ---
Author Organization [facility] ([place], [place], [place], [place]) Address [address] [place] [address] Care Team Providers Care Quality Assurance Auditor Name Role Phone Félix Monroe APRN Primary Care Provider Encounter Details Date Type Department Care Team (Late st Contact Info) Description 07/21/2019 Transcribed Document [facility] Family Medicine [address] [place] [address] ProviderMaria Esther MD [address] [place], [place] [address] Social History Tobacco Use Types Packs/Day Years Used Date Smoking Tobacco: Never Assessed Comments Unknown Sex and Gender Information Value Date Recorded Sex Assigned at Not on file Legal Sex Female 6:53 PM CDT Gender Identity Not on file Sexual Orientation Not on file documented as of this encounter Miscellaneous Notes * Cerner Conversion Note - Maria Esther ProviderMD - 07/21/2019 8:34 AM ASSET PROTECTION SPECIALIST Consult Phone Call Documentation Entered On: 07/21/2019 8:49 EST Performed On: 07/21/2019 8:34 EST by Garth Townsend Care Asst-Health Unit Coord Phone Call for Consults Consult Phone Call/Page Attempt : First call Consult Reason : renal failure, pulmonary edema Physician Requesting Consult : MIKAYLA THOMAS DO Physician Requested for Consult : SHAWANDA LUIS MD-NEP Provider Service Notified Name : Nephrology Date and Time Call Returned : 07/21/2019 8:49 EST Garth Townsend Care Asst-Health Unit Coord - 07/21/2019 8:46 EST Electronically signed by Nir [facility] Conversion Nougat Candy Maker Helper Cerner at 10/28/2022 7:00 PM CDT documented in this encounter Plan of Treatment Upcoming Encounters Date Type Department Care Team (Late st Contact Info) Description 04/12/2025 7:30 AM EDT Hospital Encounter [facility] Operating Room 1 [place] [address] [place] [address] [place] [address] [address] [place] [address] 04/12/2025 7:30 AM EDT Anesthesia Event [facility] Operating Room 1 [place] [address] Lucio Szymanski MD [address] [place] [address] 04/12/2025 7:30 AM EDT - 04/12/2025 8:55 AM EDT Surgery [facility] Operating Room 1 [place] [address] [place] [address] [place] [address] [address] [place] [address] (LAPAROSCOPIC PERITONEAL DIALYSIS CATHETER INSERTION) Scheduled Procedures Name Priority Associated Diagnoses Date/Ti me LAPAROSCOPY, WITH PERITONEAL DIALYSIS CATHETER INSERTION Chronic kidney disease, stage V (HCC) 04/12/2025 7:30 AM EDT documented as of this encounter Visit Diagnoses Not on filedocumented in this encounter Care Teams Quality Assurance Auditor Relationship Specialty Start Date End Date Félix Monroe, ELEVATOR REPAIRER APPRENTICE [address] [facility] [address] [place] [address] PCP - General Nurse Practitioner 08/25/22 documented as of this encounter
--- OUTSIDE RECORDS SUMMARY | 2025-04-11 11:00 | XMS_ITS | Encounter Summary ---
Author Organization [employer] ([place], [place], [place], [place]) Address [address] [place] [address] Care Team Providers Care Principal Data Architect Name Role Phone Félix Monroe APRN Primary Care Provider [phone] Encounter Details Date Type Department Care Team (Late st Contact Info) Description 09/03/2019 Transcribed Document [facility] [place] [address] [place] [address] ProviderMaria Esther MD [address] [place] [address] Social History Tobacco Use Types Packs/Day Years Used Date Smoking Tobacco: Never Assessed Comments Unknown Sex and Gender Information Value Date Recorded Sex Assigned at Not on file Legal Sex Female 6:53 PM CDT Gender Identity Not on file Sexual Orientation Not on file documented as of this encounter Miscellaneous Notes * Cerner Conversion Note - Historical ProviderMD - 09/03/2019 2:42 PM NO BAKE MOLDER Attempt to Treat, PT Entered On: 09/03/2019 14:43 EST Performed On: 09/03/2019 14:42 EST by GILDARDO BUNDY, PT Attempt to Treat Unable to Treat Due To : Patient Refusal Inability to Treat Comment : Patient refused P.T. Patient stated she ambulated with family. Notification : GILDARDO Bentley, PT - 09/03/2019 14:42 EST Electronically signed by Nir [facility] Conversion [address] Supervisor Cerner at 10/28/2022 7:02 PM CDT documented in this encounter Plan of Treatment Upcoming Encounters Date Type Department Care Team (Late st Contact Info) Description 04/12/2025 7:30 AM EDT Hospital Encounter [facility] Operating Room 1 [place] [address] Bill Graham MD [address] [facility] [address] [place] [address] 04/12/2025 7:30 AM EDT Anesthesia Event [facility] Operating Room 1 [place] [address] Lucio Szymanski MD [address] [place] [address] 04/12/2025 7:30 AM EDT - 04/12/2025 8:55 AM EDT Surgery [facility] Operating Room 1 [place] [address] [place] [address] [place] [address] [address] [place] [address] (LAPAROSCOPIC PERITONEAL DIALYSIS CATHETER INSERTION) Scheduled Procedures Name Priority Associated Diagnoses Date/Ti me LAPAROSCOPY, WITH PERITONEAL DIALYSIS CATHETER INSERTION Chronic kidney disease, stage V (HCC) 04/12/2025 7:30 AM EDT documented as of this encounter Visit Diagnoses Not on filedocumented in this encounter Care Teams Principal Data Architect Relationship Specialty Start Date End Date Félix Monroe, SHIPFITTER APPRENTICE [address] [facility] [address] [place] [address] PCP - General Nurse Practitioner 08/25/22 documented as of this encounter
--- OUTSIDE RECORDS SUMMARY | 2025-04-11 11:00 | XMS_ITS | Encounter Summary ---
Author Organization [employer] ([place], [place], [place], [place]) Address [address] [place] [address] Care Team Providers Care Websphere Commerce Architect Name Role Phone Félix Monroe APRN Primary Care Provider [phone] Encounter Details Date Type Department Care Team (Late st Contact Info) Description 09/03/2019 Transcribed Document [facility] Family Medicine [address] [place] [address] ProviderMaria Esther MD [address] [place] [address] Social History Tobacco Use Types Packs/Day Years Used Date Smoking Tobacco: Never Assessed Comments Unknown Sex and Gender Information Value Date Recorded Sex Assigned at Not on file Legal Sex Female 6:53 PM CDT Gender Identity Not on file Sexual Orientation Not on file documented as of this encounter Miscellaneous Notes * Cerner Conversion Note - Maria Esther Reyes MD - 09/03/2019 10:14 AM SENIOR HRIS ANALYST Patient: CORRIE SMITH Age: 49 years Sex: [...] SOB or other complaints O2???off, NSR???67 PW???intact/disconnected 2 POD #5 steady progress, without SOB or other complaints, NSR???71 PW???INTACT Health Status Allergies: Allergies (1) Active Reaction codecharles Fu Physical Examination Intake and Output 24 hour intake: Total 1,347 ml 24 hour output: Urinary catheter 1,285 ml, Total 1,295 ml ERWIN 10ml / 24 hours General: Alert and oriented, No acute distress. HENT: Normocephalic. Neck: Supple. Respiratory: Respirations are non-labored. Breath sounds: Diminished. Cardiovascular: Normal rate, Regular rhythm, No edema, Paced at 80. Integumentary: Warm, Dry, [place], Aquacel dressing is C/D/I. Neurologic: Alert, Oriented. Psychiatric: Cooperative, Appropriate mood & affect. Review / Management Results review: SEP 03 04:38 L 134 L 100 H 23 / 101 3.6 32 H 2.00 \ SEP 03 04:38 \ L 9.3 / 9.2 178 / L 28.2 \ Blood Gases (Current Encounter/Past 24 Hours) No Blood Gas Results Found (Past 24 Hours) Coagulation Results (Current Encounter/Past 24 Hours) PT 71.6 Second(s) HI 09/03/2019 05:16 INR 6.8 CRIT 09/03/2019 05:16 . Labs (Last four charted values) WBC 9.2 (FEB 23) 10.0 (FEB 22) 9.9 (FEB 21) H 11.4 (FEB 20) HB L 9.3 (FEB 23) L 9.4 (FEB 22) L 8.8 (FEB 21) L 8.7 (FEB 20) HCT L 28.2 (FEB 23) L 29.5 (FEB 22) L 26.8 (FEB 21) L 26.7 (FEB 20) Plt 178 (FEB 23) L 148 (FEB 22) L 100 (FEB 21) L 97 (FEB 20) Na L 134 (FEB 23) 136 (FEB 22) 136 (FEB 21) L 135 (FEB 20) K 3.6 (FEB 23) 3.6 (FEB 22) 3.5 (FEB 21) 3.8 (FEB 20) Cl L 100 (FEB 23) 103 (FEB 22) 104 (FEB 21) 106 (FEB 20) CO2 32 (FEB 23) 30 (FEB 22) 29 (FEB 21) 24 (FEB 20) BUN H 23 (FEB 23) H 24 (FEB 22) H 25 (FEB 21) H 23 (FEB 20) Cr H 2.00 (FEB 23) H 2.00 (FEB 22) H 1.90 (FEB 21) H 1.80 (FEB 20) Glu R 101 (FEB 23) 103 (FEB 22) 104 (FEB 21) H 129 (FEB 20) Ca 8.6 (FEB 23) 9.1 (FEB 22) 8.7 (FEB 21) L 8.3 (FEB 20) PT H 71.6 (FEB 23) H 71.0 (FEB 22) H 48.3 (FEB 21) H 16.8 (FEB 20) INR C 6.8 (SEP 03) C 6.8 (SEP 02) H 4.6 (SEP 01) H 1.6 (AUG 31) PTT 31.7 (AUG 29) H 34.8 (AUG 28) AST H 81 (AUG 30) 10 (AUG 28) ALT 26 (AUG 30) 14 (AUG 28) ALK P 78 (AUG 30) 78 (AUG 28) T Bili 0.4 (AUG 30) 0.7 (AUG 28) PTN L 5.9 (AUG 30) 7.3 (AUG 28) ALB L 3.2 (AUG 30) 3.5 (AUG 28) Radiology Results (Last 48 hours) [id number] -- 08/29/2019 07:08 CR Chest 1 Vw Portable (09/02/2019 08:19) Result: PORTABLE CHEST SINGLE VIEWHISTORY: Shortness of breath. Pneumothorax. COMPARISON: One day earlier.FINDINGS: Bilateral pulmonary opacities are again seen compatible withatelectasis and effusions. The lungs hughes are unchanged. There is nopneumothorax. The cardiac silhouette is stable. Patient is status post mitral valve replacement. IMPRESSION: No significant change. CR Chest 1 Vw Portable (09/03/2019 07:28) Result: PORTABLE CHEST SINGLE VIEWHISTORY: Shortness of breath. Pneumothorax. COMPARISON: One day earlier.FINDINGS: Right basilar airspace opacities are seen compatible witheffusions and atelectasis. Left basilar atelectasis has improved. There is no pneumothorax. The cardiac silhouette is stable. Patient is status post mitral valve replacement. IMPRESSION: 1. No evidence of pneumothorax.2. Stable moderate right basilar atelectasis and effusion with improvedleft lower lobe atelectasis. Impression and Plan Plan: 08/30/19 POD#1 Daily PT/INR Coumadin 5mg PO Daily MT D/C without any immediate complications Probable D/C Mediastinal ERWIN tomorrow. Improvement in right apical ptx when ERWIN returned to wall suction Paced 90 C.I. 2.0 D/C NG 08/31/19 POD#2 INR 1.6 Paced 80 C.I. >2.9 ERWIN drain D/C without any immediate complications and the pt tolerated well Transfer to [facility] 09/01/19 NSR???80, PW/paced 80 backup INR???4.6 today up from 1.6 yesterday, with Coumadin 5 mg Hold Coumadin today, come back in at lower dose Nephrology: CKD4 Cr- 1.9, probably her baseline O2???5 L weaning 09/02/19 NSR???67 PW??? INTACT INR???6.8 up from or 4.6 D/C Coumadin, not a home med Nephrology:CKD4 Cr- 2.0 O2???off 09/03/19 NSR???71 PW???INTACT INR???6.8 yesterday 6.8 No Coumadin at discharge per Dr. Valdez Nephrology CKD4 Cr- 2.0 EF 50-55% per echo 07/21/19 DVT Prophylaxis: [...] Description 04/12/2025 7:30 AM EDT Hospital Encounter [facility] Operating Room 1 [place] [address] [place] [address] [place] [address] [place] [address] 04/12/2025 7:30 AM EDT Anesthesia Event [facility] Operating Room 1 [place] [address] Lucio Szymanski MD [address] [place] [address] 04/12/2025 7:30 AM EDT - 04/12/2025 8:55 AM EDT Surgery [facility] Operating Room 1 [place] [address] [place] [address] [place] [address] [address] [place] [address] [id number] (LAPAROSCOPIC PERITONEAL DIALYSIS CATHETER INSERTION) Scheduled Procedures Name Priority Associated Diagnoses Date/Ti me LAPAROSCOPY, WITH PERITONEAL DIALYSIS CATHETER INSERTION Chronic kidney disease, stage V (HCC) 04/12/2025 7:30 AM EDT documented as of this encounter Visit Diagnoses Not on filedocumented in this encounter Care Teams Websphere Commerce Architect Relationship Specialty Start Date End Date Félix Monroe, WALLPAPER EMBOSSER HELPER [address] [facility] [address] [place] [address] PCP - General Nurse Practitioner 08/25/22 documented as of this encounter
--- OUTSIDE RECORDS SUMMARY | 2025-04-11 11:00 | XMS_ITS | Encounter Summary ---
Author Organization [employer] ([place], [place], [place], [place]) Address [address] [address] Care Team Providers Care Log Hauler Name Role Phone Félix Monroe APRN Primary Care Provider [phone] Encounter Details Date Type Department Care Team (Late st Contact Info) Description 09/03/2019 Transcribed Document [facility] Family Medicine [address] [place] [address] ProviderMaria Esther MD [address] [place] [address] Social History Tobacco Use Types Packs/Day Years Used Date Smoking Tobacco: Never Assessed Comments Unknown Sex and Gender Information Value Date Recorded Sex Assigned at Not on file Legal Sex Female 6:53 PM CDT Gender Identity Not on file Sexual Orientation Not on file documented as of this encounter Miscellaneous Notes * Cerner Conversion Note - Historical ProviderMD - 09/03/2019 5:00 AM AVIATION MECHANIC Chart Check - Review Order Profile Entered On: 09/03/2019 6:59 EST Performed On: 09/03/2019 5:00 EST by Latia Gonzalez RN Chart Check All Active Orders Reviewed : Yes Latia Gonzalez RN - 09/03/2019 6:59 EST Electronically signed by Evaristo Loyola Conversion Supervisor Agricultural Education Cerner at 10/28/2022 7:11 PM CDT documented in this encounter Plan of Treatment Upcoming Encounters Date Type Department Care Team (Late st Contact Info) Description 04/12/2025 7:30 AM EDT Hospital Encounter [facility] Operating Room 1 [place] [address] Bill Graham MD [address] [facility] [address] [place] [address] 04/12/2025 7:30 AM EDT Anesthesia Event [facility] Operating Room 1 [place] [address] Lucio Szymanski MD [address] [place] [address] 04/12/2025 7:30 AM EDT - 04/12/2025 8:[address] [facility] Operating Room 1 [place] [address] Bill Graham MD [address] [facility] [address] [place] [address] (LAPAROSCOPIC PERITONEAL DIALYSIS CATHETER INSERTION) Scheduled Procedures Name Priority Associated Diagnoses Date/Ti me LAPAROSCOPY, WITH PERITONEAL DIALYSIS CATHETER INSERTION Chronic kidney disease, stage V (HCC) 04/12/2025 7:30 AM EDT documented as of this encounter Visit Diagnoses Not on filedocumented in this encounter Care Teams Log Hauler Relationship Specialty Start Date End Date Félix Monroe, FINISH REPAIR WORKER [address] [facility] [address] [place] [address] PCP - General Nurse Practitioner 08/25/22 documented as of this encounter
--- OUTSIDE RECORDS SUMMARY | 2025-04-11 11:00 | XMS_ITS | Encounter Summary ---
Author Organization [employer] ([place], [place], [place], [place]) Address [address] [place] [address] Care Team Providers Care Community Midwife Name Role Phone Félix Monroe APRN Primary Care Provider [phone] Encounter Details Date Type Department Care Team (Late st Contact Info) Description 07/22/2019 Transcribed Document [facility] [place] [facility] Medicine [address] [place] [address] ProviderMaria Esther MD [address] [place] [address] Social History Tobacco Use Types Packs/Day Years Used Date Smoking Tobacco: Never Assessed Comments Unknown Sex and Gender Information Value Date Recorded Sex Assigned at Not on file Legal Sex Female 6:53 PM CDT Gender Identity Not on file Sexual Orientation Not on file documented as of this encounter Miscellaneous Notes * Cerner Conversion Note - Maria Esther Reyes MD - 07/22/2019 11:18 AM DOG CONTROL OFFICER Patient: CORRIE SMITH [facility]: [id number] Age: 49 years Sex: Female : 1970 [...] Ativan: 0.5 mg, Oral, Q6H, PRN: Anxiety Core mg, Oral, BID Imdur: 15 mg, Oral, Daily MiraLax: 17 Gram, Oral, Daily, PRN: Constipation Protonix: 40 mg, Oral, Daily Tylenol: 650 mg, Oral, Q4H, PRN: Fever amLODIPine: 10 mg, Oral, Daily aspirin: 81 mg, Oral, Daily bumetanide: 1 mg, Oral, Daily cloNIDine: 0.1 mg, Oral, Q3H, PRN: Hypertension heparin injection 25,000 Units + NaCl 0.45% Premix Diluent 250 mL: Titrate, IntraVENous hydrALAZINE: 10 mg, IV Push, Q2H, PRN: Hypertension nicotine 21 mg/24 hr transdermal film, extended release: 1 Patch, TransDermal, Daily Pending Complete influenza virus vaccine, inactivated: 0.5 mL, IntraMuscular, [id number], Medications (13) Active Scheduled: (7) amLODIPine 10 mg tab 10 mg 1 Tab, Oral, Daily aspirin EC 81 mg tab 81 mg 1 Tab, Oral, Daily bumetanide 1 mg tab 1 mg 1 Tab, Oral, Daily carvedilol 25 mg tab 25 mg 1 Tab, Oral, BID isosorbide MONOnitrate ER 30 mg tab 15 mg 0.5 Tab, Oral, Daily nicotine 21 mg/24 hr patch 1 Patch, TransDermal, Daily pantoprazole EC 40 mg tab 40 mg 1 Tab, Oral, Daily Continuous: (1) heparin/NaCl 0.45% 25,000 Units + Premix Diluent NaCl 0.45% 250 mL 250 mL, IntraVENous PRN: (5) acetaminophen 325 mg tab 650 mg 2 Tab, Oral, Q4H cloNIDine 0.1 mg tab 0.1 mg 1 Tab, Oral, Q3H hydrALAZINE 20 mg/1 mL inj 10 mg 0.5 mL, IV Push, Q2H LORazepam 0.5 mg tab 0.5 mg 1 Tab, Oral, Q6H polyethylene glycol 3350 pwd 17 g pkt 17 Gram 1 Packet, Oral, Daily Problem list: Medical HTN - Hypertension / SNOMED CT [id number] / Confirmed, Active Problems (2) COPD (chronic obstructive pulmonary disease) HTN - Hypertension OBJECTIVE: Physical Examination VS/Measurements Vitals Signs (last 24 hrs) Last Charted Minimum Maximum Temp 97.9 (JUL 22:) 97.9 (JUL 22:) 97.4 (JUL 21:) Apical HR 80 (JUL 21:55) 80 (JUL 21:55) 80 (JUL 21:55) Mon HR 80 (JUL 22:) 61 (JUL 22:24) 80 (JUL 22:) Resp Rate 20 (JUL 22 06:37) 20 (JUL 21:) 20 (JUL 21:) SBP 119 (JUL 22:) 119 (JUL 22:) H 159 (JUL 21 13:26) DBP 88 (JUL 22:) 88 (JUL 22:) H 102 (JUL 21:) MAP 100 (JUL 22:) 100 (JUL 22:) 121 (JUL 21:) SpO2 95 (JUL 22 09:00) L 93 (JUL 22:24) 95 (JUL 22:) General: Alert and oriented, No acute distress. [...] tenderness, No swelling, No deformity. Integumentary: Warm, [place], Moist, No rash. Neurologic: Alert, Oriented, Normal sensory, Normal motor function, No focal deficits, Cranial Nerves II-XII are grossly intact, Normal deep tendon reflexes. Psychiatric: Cooperative, Appropriate mood & affect, Normal judgment. Review / Management Results review: Labs (Last four charted values) WBC 6.3 (JUL 22) 8.9 (JUL 21) 9.0 (JUL 20) HB 11.4 (JUL 22) L 10.6 (JUL 21) L 10.8 (JUL 20) HCT 34.1 (JUL 22) L 31.4 (JUL 21) L 32.5 (JUL 20) Plt L 155 (JUL 22) L 142 (JUL 21) L 148 (JUL 20) Na 139 (JUL 22) 141 (JUL 21) 140 (JUL 20) K L 2.9 (JUL 22) L 3.2 (JUL 21) C 2.8 (JUL 20) Cl 103 (JUL 22) 107 (JUL 21) 104 (JUL 20) CO2 31 (JUL 22) 28 (JUL 21) 29 (JUL 20) BUN H 26 (JUL 22) H 23 (JUL 21) H 24 (JUL 20) Cr H 2.10 (JUL 22) H 2.00 (JUL 21) H 2.00 (JUL 20) Glu R H 111 (JUL 22) H 110 (JUL 21) H 118 (JUL 20) Ca 8.8 (JUL 22) 8.5 (JUL 21) 8.8 (JUL 20) PT [...] (JUL 21) L 2.9 (JUL 20) Troponin 0.038 (JUL 21) H 0.064 (JUL 21) H 0.082 (JUL 20) , JUL 22 03:25 139 103 H 26 / H 111 L 2.9 31 H 2.10 \ JUL 22 03:25 \ 11.4 / 6.3 L 155 / 34.1 \, Radiology Results (Last 48 hours) [id number] -- 2019 19:20 CR Chest 1 Vw Portable (2019 20:30) Result: Study: Chest single viewCLINICAL HISTORY: Leaking heart valve, CHFCOMPARISON: None availableDescription: Heart size is within normal limits with mild venouscongestion. Interstitial prominence suggesting mild edema. There is noairspace consolidation or effusion.IMPRESSION: Venous congestion with mild interstitial edema US Renal Comp (07/21/2019 10:56) Result: ULTRASOUND KIDNEYSHISTORY: Acute renal failure.PROCEDURE: Multiple sonographic images of the kidneys were obtained inthe longitudinal and transverse planes.COMPARISON: None.FINDINGS: The right kidney measures 9.8 cm in pole to pole length. There is no hydronephrosis, mass or stone. Cortical echogenicity andcortical thickness are within normal limits.The left kidney measures 9.2 cm in pole to pole length. There is nohydronephrosis, mass or stone. Cortical echogenicity and corticalthickness are within normal limits.IMPRESSION: Morphologically normal kidneys bilaterally. . Impression and Plan Severe MR - [...] may need nephrology evaluation if plans for [facility] - check FEUrea, renal ultrasound [...] Sequential compression device Code status: Full code PLAN: Mitral valve replacement hopefully Wednesday or Wednesday by Dr. Valdez. (Got Brilinta at [facility] >2 days ago) Creatinine 2.2 (2.0 yesterday) nephrology is following Potassium 2.9, I replaced Time spent: 35 minutes Electronically signed by Hilario Loyola Conversion Television Production Technician Cerner at 10/28/2022 7:26 PM CDT documented in this encounter Plan of Treatment Upcoming Encounters Date Type Department Care Team (Late st Contact Info) Description 04/12/2025 7:30 AM EDT Hospital Encounter [facility] Operating Room 1 [place] [address] Bill Graham MD [address] [place] [address] [address] 04/12/2025 7:30 AM EDT Anesthesia Event [facility] Operating Room 1 [place] [address] Lucio Szymanski MD [address] [place] [address] 04/12/2025 7:30 AM EDT - 04/12/2025 8:55 AM EDT Surgery [facility] Operating Room 1 [place] [address] Bill Graham MD [address] [place] [address] [address] (LAPAROSCOPIC PERITONEAL DIALYSIS CATHETER INSERTION) Scheduled Procedures Name Priority Associated Diagnoses Date/Ti me LAPAROSCOPY, WITH PERITONEAL DIALYSIS CATHETER INSERTION Chronic kidney disease, stage V (HCC) 04/12/2025 7:30 AM EDT documented as of this encounter Visit Diagnoses Not on filedocumented in this encounter Care Teams Community Midwife Relationship Specialty Start Date End Date Ramos Monroeie S, CLAY CASTER [address] [facility] [address] [place], [place] [id number] PCP - General Nurse Practitioner 08/25/22 documented as of this encounter
--- OUTSIDE RECORDS SUMMARY | 2025-04-11 11:00 | XMS_ITS | Encounter Summary ---
Author Organization [employer] ([place], [place], [place], [place]) Address [address] [place] [address] Care Team Providers Care Stain Applicator Name Role Phone Félix Monroe APRN Primary Care Provider Encounter Details Date Type Department Care Team (Late st Contact Info) Description 09/03/2019 Transcribed Document [facility] Radiology 1 [place] [address] Radha Villa MD [address] [place] [address] [place] [address] Social History Tobacco Use Types Packs/Day Years Used Date Smoking Tobacco: Never Assessed Comments Unknown Sex and Gender Information Value Date Recorded Sex Assigned at Not on file Legal Sex Female 6:53 PM CDT Gender Identity Not on file Sexual Orientation Not on file documented as of this encounter Miscellaneous Notes * Cerner Conversion Note - Radha Villa MD - 09/03/2019 5:20 PM EST Patient: CORRIE SMITH Age: 49 years Sex: Female : 1970 Associated Diagnoses: None Author: RADHA VILLA MD-[facility] NEPHROLOGY PROGRESS NOTE SUBJECTIVE ,no c/o. Hoping to go home soon MEDICATIONS Medications by Classification Cardiovascular carvedilol - 25 mg, Oral, Tab, BID, Routine amLODIPine - 10 mg, Oral, Tab, Daily, Routine furosemide (Lasix) - 40 mg, Oral, Tab, Daily, Routine spironolactone - 25 mg, Oral, Tab, Daily, Routine Respiratory albuterol-ipratropium (DuoNeb 0.5 mg-2.5 mg/3 mL inhalation - 3 mL, Nebulized Inhalation, Inh, RT_Q4H, PRN for Shortness of Breath, Routine GI ondansetron (Zofran) - 4 mg, IV Push, Inj, Q4H, PRN for Nausea, Routine pantoprazole (Protonix) - 40 mg, Oral, EC Tab, Daily, Routine magnesium hydroxide (Milk of Magnesia 8% oral suspension) - 30 mL, Oral, Liquid, Q8H, PRN for Constipation, Routine sodium bicarbonate (sodium bicarbonate 50 mEq per amp (adult - 50 mEq, IV Push, Inj, 1-Time, PRN for Other (See Comment), Routine sodium bicarbonate (sodium bicarbonate 50 mEq per amp (adult - 100 mEq, IV Push, Inj, 1-Time, PRN for Other (See Comment), Routine bisacodyl - 10 mg, Oral, EC Tab, At Bedtime, Routine bisacodyl (Dulcolax Laxative) - 10 mg, Rectal, Supp, 1-Time, PRN for Constipation, Routine docusate (Colace) - 100 mg, Oral, Cap, BID, Routine lactulose - 20 Gram, Oral, Liquid, 1-Time, NOW magnesium sulfate + Dextrose 5% in Water intravenous solutio - 1 Gram 2 mL, IV Piggyback, 1-Time, Administer over 1 Hour(s), PRN for Other (See Comment), Routine senna (Senokot) - 17.2 mg, Oral, Tab, BID, Routine metoclopramide (Reglan) - 5 mg, IV Push, Inj, Q6H, PRN for Nausea/Vomiting, Routine Neuro magnesium sulfate + Dextrose 5% in Water intravenous solutio - 1 Gram 2 mL, IV Piggyback, 1-Time, Administer over 1 Hour(s), PRN for Other (See Comment), Routine *Duplicate* rOPINIRole (Requip) - 1 mg, Oral, Tab, At Bedtime, Routine Pain Meds acetaminophen-hydrocodone (acetaminophen-HYDROcodone 325 mg- - 2 Tab, Oral, Tab, Q4H, PRN for Pain (Moderate 4-6), Routine aspirin - 81 mg, Oral, EC Tab, Daily, Routine acetaminophen (Tylenol) - 650 mg, Oral, Tab, Q4H, PRN for Fever, Routine Topical fluocinonide topical (fluocinonide 0.05% topical cream) - 1 Application, Topical, Cream, QID, PRN for Other (See Comment), Routine Vitamins ascorbic acid - 500 mg, Oral, Tab, BID, order duration: 10 Time(s), Routine calcium gluconate - 1 Gram 10 mL, IV Piggyback, 1-Time, Administer over 60 Minute(s), PRN for Other (See Comment), Routine magnesium sulfate + Dextrose 5% in Water intravenous solutio - 1 Gram 2 mL, IV Piggyback, 1-Time, Administer over 1 Hour(s), PRN for Other (See Comment), Routine *Duplicate* potassium chloride (potassium chloride 10 mEq/50 mL intraven - 10 mEq 50 mL, IV Piggyback, Inj, Q1H, Administer over 1 Hour(s), PRN for Other (See Comment), Routine sodium chloride (Normal Saline Flush) - 10 mL, IV Push, Inj, See Comment, PRN for IV Use, Routine sodium chloride (Normal Saline Flush) - 10 mL, IV Push, Inj, Q8H, Routine sodium chloride (Normal Saline Flush) - 10 mL, IV Push, Inj, See Comment, PRN for Other (See Comment), Routine Other albumin human (albumin human 5% intravenous solution) - 12.5 Gram 250 mL, IV Piggyback, Inj, Q1H, Administer over 1 Hour(s), PRN for Hypotension, Routine nicotine (nicotine 21 mg/24 hr transdermal film, extended re - 1 Patch, TransDermal, Patch, Daily, Routine OBJECTIVE: GENERAL: awake, in no distress VITAL SIGNS Vitals Signs (last 24 hrs) Last Charted Minimum Maximum Temp 99.1 (SEP 03 09:49) 98.9 (SEP 03 06:26) 99.2 (SEP 02 22:29) Mon HR 71 (SEP 03 09:49) 66 (SEP 03 02:26) 74 (SEP 02 22:29) Resp Rate 18 (SEP 03 06:26) 18 (SEP 02 22:29) 18 (SEP 02 22:29) SBP 110 (SEP 03 09:49) 106 (SEP 03 02:26) H 142 (SEP 02:29) DBP 79 (SEP 03 09:49) 68 (SEP 03 02:26) 90 (SEP 02 22:29) MAP 89 (SEP 03 09:49) 78 (SEP 03 02:) 105 (SEP 02 22:29) SpO2 L 90 (SEP 03:) L 90 (SEP 03 02:) 97 (SEP 02 22:35) Intake & Output Totals Last 24 Hours (7a-7a) Intake (4 Events) Medications (10 mL) Oral Intake (960 mL) Output (2 Events) Urine Voided (Volume) (1500 mL) Input Total: 970 mL Output Total: 1500 mL Balance: -530 mL Intake & Output Totals Last 24 Hours (7a-7a) Intake (4 Events) Medications (10 mL) Oral Intake (960 mL) Output (2 Events) Urine Voided (Volume) (1500 mL) Input Total: 970 mL Output Total: 1500 mL Balance: -530 mL HEENT: normocephalic atraumatic without lesions. EYES: [...] dry NEUROLOGIC: awake. No focal weakness LABORATORY SEP 03 04:38 L 134 L 100 H 23 / 101 3.6 32 H 2.00 \ SEP 03 04:38 \ L 9.3 / 9.2 178 / L 28.2 \ ASSESSMENT /PLAN 1.LETY: renal functions improved. Cr close to baseline. She appears a little vol depleted. We'll hold diuretics tomorrow 2. Hypertension: we'll controlled. +BP on low side. we'll dcrease Amlodipine 3. Anemia. Stable Hgb documented in this encounter Plan of Treatment Upcoming Encounters Date Type Department Care Team (Late st Contact Info) Description 04/12/2025 7:30 AM EDT Hospital Encounter [facility] Operating Room 1 [place] [address] [place] [address] [place] [address] [address] [place] [address] 04/12/2025 7:30 AM EDT Anesthesia Event [facility] Operating Room 1 [place] [address] Lucio Szymanski MD [address] [place] [address] 04/12/2025 7:30 AM EDT - 04/12/2025 8:55 AM EDT Surgery [facility] Operating Room 1 [place] [address] Bill Graham MD [address] [place] [address] (LAPAROSCOPIC PERITONEAL DIALYSIS CATHETER INSERTION) Scheduled Procedures Name Priority Associated Diagnoses Date/Ti me LAPAROSCOPY, WITH PERITONEAL DIALYSIS CATHETER INSERTION Chronic kidney disease, stage V (HCC) 04/12/2025 7:30 AM EDT documented as of this encounter Visit Diagnoses Not on filedocumented in this encounter Care Teams Stain Applicator Relationship Specialty Start Date End Date Félix Monroe, BUNGHOLE BORER [address] [facility] [address] [place] [address] PCP - General Nurse Practitioner 08/25/22 documented as of this encounter
--- OUTSIDE RECORDS SUMMARY | 2025-04-11 11:00 | XMS_ITS | Encounter Summary ---
Author Organization [employer] ([place], [place], [place], [place]) Address [address] [address] Care Team Providers Care Metal Or Wood Blocker Name Role Phone Fer Félix Singh MICHAEL Primary Care Provider [phone] Encounter Details Date Type Department Care Team (Late st Contact Info) Description 07/21/2019 Transcribed Document [facility] [place] [address] [place] [address] ProviderMaria Esther MD [address] [place], [place] [phone] Social History Tobacco Use Types Packs/Day Years Used Date Smoking Tobacco: Never Assessed Comments Unknown Sex and Gender Information Value Date Recorded Sex Assigned at Not on file Legal Sex Female 6:53 PM CDT Gender Identity Not on file Sexual Orientation Not on file documented as of this encounter Miscellaneous Notes * Cerner Conversion Note - Historical ProviderMD - 07/21/2019 9:02 AM DIRECTOR MARKETING ANALYTICS Patient: CORRIE SMITH [facility]: [id number] Age: 49 years Sex: Female : 1970 Associated Diagnoses: None Author: SHAWANDA LUIS MD-NEP Consult noted, chart reviewed, full note to follow, thank you. documented in this encounter Plan of Treatment Upcoming Encounters Date Type Department Care Team (Late st Contact Info) Description 04/12/2025 7:30 AM EDT Hospital Encounter [facility] Operating Room 1 [place] [address] Bill Graham MD [address] [facility] [address] [place] [address] 04/12/2025 7:30 AM EDT Anesthesia Event [facility] Operating Room 1 [place] [address] Lucio Szymanski MD [address] [place] [address] 04/12/2025 7:30 AM EDT - 04/12/2025 8:[address] [facility] Operating Room 1 [place] [address] Bill Graham MD [address] [facility] [address] [place] [address] (LAPAROSCOPIC PERITONEAL DIALYSIS CATHETER INSERTION) Scheduled Procedures Name Priority Associated Diagnoses Date/Ti me LAPAROSCOPY, WITH PERITONEAL DIALYSIS CATHETER INSERTION Chronic kidney disease, stage V (HCC) 04/12/2025 7:30 AM EDT documented as of this encounter Visit Diagnoses Not on filedocumented in this encounter Care Teams Metal Or Wood Blocker Relationship Specialty Start Date End Date Félix Monroe, PUMPER GAUGER [address] [facility] [address] [place] [address] PCP - General Nurse Practitioner 08/25/22 documented as of this encounter
--- OUTSIDE RECORDS SUMMARY | 2025-04-11 11:00 | XMS_ITS | Encounter Summary ---
Author Organization [employer] ([place], [place], [place], [place]) Address [address] [place] [address] Care Team Providers Care Chiseler Head Name Role Phone Fer Félix Singh APRN Primary Care Provider [phone] Encounter Details Date Type Department Care Team (Late st Contact Info) Description 2019 Transcribed Document [facility] [place] Family Medicine [address] [place] [address] ProviderMaria Esther MD [address] [place] [id number] Social History Tobacco Use Types Packs/Day Years Used Date Smoking Tobacco: Never Assessed Comments Unknown Sex and Gender Information Value Date Recorded Sex Assigned at Not on file Legal Sex Female 6:53 PM CDT Gender Identity Not on file Sexual Orientation Not on file documented as of this encounter Miscellaneous Notes * Cerner Conversion Note - Maria Esther ProviderMD - 2019 10:29 PM WEB PAGE DEVELOPER Height and Weight, Clinical Dosing Entered On: 2019 22:29 EST Performed On: 2019 22:29 EST by Regina Moran RN-Resource Height and Weight, Clinical Dosing Height Source : Chart Height Entry Format : [place] Height, Feet : 5 ft(Converted to: 152 cm, 60 Inch) Height, Inches : 6 Inch(Converted to: 0 ft 6 Inch, 15.24 cm) Clinical Height : 167.64 cm Weight Source : Standing scale Weight Entry Format : [place] Clinical Dosing Weight : 60.11 kg Weight, Pounds : 132 lb Weight, Ounces : 4 oz Body Surface Area (BSA) : 1.68 m2 Body Mass Index : 21.4 kg/m2 [place] Body Weight : 59 kg Regina Moran RN-Resource - 2019 22:29 EST documented in this encounter Plan of Treatment Upcoming Encounters Date Type Department Care Team (Late st Contact Info) Description 04/12/2025 7:30 AM EDT Hospital Encounter [facility] Operating Room 1 [place] [address] Bill Graham MD [address] [place] [address] 04/12/2025 7:30 AM EDT Anesthesia Event [facility] Operating Room 1 [place] [address] Lucio Szymanski MD [address] [place] [address] 04/12/2025 7:30 AM EDT - 04/12/2025 8:55 AM EDT Surgery [facility] Operating Room 1 [place] [address] Bill Graham MD [address] [place] [address] (LAPAROSCOPIC PERITONEAL DIALYSIS CATHETER INSERTION) Scheduled Procedures Name Priority Associated Diagnoses Date/Ti me LAPAROSCOPY, WITH PERITONEAL DIALYSIS CATHETER INSERTION Chronic kidney disease, stage V (HCC) 04/12/2025 7:30 AM EDT documented as of this encounter Visit Diagnoses Not on filedocumented in this encounter Care Teams Chiseler Head Relationship Specialty Start Date End Date Félix Monroe, SOLE CONDITIONER [address] [facility] [address] [place] [address] PCP - General Nurse Practitioner 08/25/22 documented as of this encounter
--- OUTSIDE RECORDS SUMMARY | 2025-04-11 11:00 | XMS_ITS | Encounter Summary ---
Author Organization [employer] ([place], [place], [place], [place]) Address [address] [place] [address] Care Team Providers Care Facilities Locator Name Role Phone Félix Monroe APRN Primary Care Provider [phone] Encounter Details Date Type Department Care Team (Late st Contact Info) Description 08/30/2019 Transcribed Document [facility] Family Medicine [facility] [place] [address] ProviderMaria Esther MD [address] [place], [place] [id number] Social History Tobacco Use Types Packs/Day Years Used Date Smoking Tobacco: Never Assessed Comments Unknown Sex and Gender Information Value Date Recorded Sex Assigned at Not on file Legal Sex Female 6:53 PM CDT Gender Identity Not on file Sexual Orientation Not on file documented as of this encounter Miscellaneous Notes * Cerner Conversion Note - Maria Esther Reyes MD - 08/30/2019 9:39 AM DIRECTOR EQUIPMENT Patient: CORRIE SMITH Age: 49 years Sex: [...] 160s. C.I. drops with decrease in HR. Health Status Allergies: Allergies (1) Active Reaction codeine Welts Physical Examination Intake and Output 24 hour intake: Total 6241 ml 24 hour output: Urinary catheter 2249 ml, Total 2444 ml MT 40ml and Mediastinal ERWIN 15ml / 12 hours VS/Measurements Vital Measurements 08/30/2019 8:00 EST Oxygen Saturation 96 % Oxygen Therapy Mode High flow nasal cannula Oxygen Flow Rate 8 Liter/Min 08/30/2019 6:00 EST Systolic Blood Pressure 133 mmHg Diastolic Blood Pressure 90 mmHg Mean Arterial Pressure (MAP)-BMDI 107 Systolic BP, Arterial Line 1 143 mmHg HI Diastolic BP, Arterial Line 1 79 mmHg Mean Arterial Pressure, Line 1 100 mmHg Temperature, Celsius 36.6 Deg C Clinical Temperature, F 97.9 Deg F Heart Rate Monitored 91 bpm General: Alert and oriented, No acute distress. HENT: Normocephalic. Neck: Supple. Respiratory: Respirations are non-labored. Breath sounds: Diminished. Cardiovascular: Normal rate, Regular rhythm, No edema, Paced at 90. Integumentary: Warm, Dry, [place], Aquacel dressing is C/D/I. Neurologic: Alert, Oriented. Psychiatric: Cooperative, Appropriate mood & affect. Review / Management Results review: AUG 30 03:30 138 109 H 24 / H 132 3.8 25 H 2.10 \ AUG 30 03:30 \ L 9.9 / H 14.9 L 103 / L 29.9 \ Blood Gases (Current Encounter/Past 24 Hours) pH Art 7.39 08/29/2019 15:02 pCO2 Art 39.6 08/29/2019 15:02 pO2 Art 119.0 HI 08/29/2019 22:06 HCO3 Art 24.2 08/29/2019 15:02 BE Art -.6 08/29/2019 15:02 sO2 Art 99.0 08/29/2019 15:02 tHb Art 9.1 LOW 08/29/2019 22:06 FHHb <2.4 NA 08/29/2019 15:02 ctO2 12.6 NA 08/29/2019 15:02 FIO2 Art 50 NA 08/29/2019 15:02 Delivery Device Type Art Ventilator NA 08/29/2019 15:02 Temperature, F Art 98.6 NA 08/29/2019 15:02 Art Blood Gas (ABG) Site Arterial Line NA 08/29/2019 15:02 Acceptable Ilir's Test Art Non-Applicable NA 08/29/2019 15:02 Ventilator Mode Art Spontaneous NA 08/29/2019 15:02 Tidal Volume Set Art 500.0 NA 08/29/2019 11:24 Set Rate Art 14.0 NA 08/29/2019 11:24 Respiratory Rate Art 22.0 NA 08/29/2019 15:02 CPAP/PEEP Art 5.0 NA 08/29/2019 15:02 Pressure Support Art 8.0 NA 08/29/2019 15:02 pH Art POC 7.467 AK 08/29/2019 22:06 pCO2 Art POC 37.0 08/29/2019 11:01 pO2 Art POC 223.0 AK 08/29/2019 22:06 HCO3 Art POC 26.8 AK 08/29/2019 22:06 tCO2 Art POC 28.0 AK 08/29/2019 22:06 BE Art POC 3.0 08/29/2019 11:01 sO2 Art POC >99.9 AK 08/29/2019 22:06 ABG Num of Draw Attempts 1 NA 08/29/2019 15:02 Coagulation Results (Current Encounter/Past 24 Hours) PT 12.8 Second(s) AK 08/29/2019 11:53 PTT 31.7 Second(s) 08/29/2019 11:53 INR 1.2 AK 08/29/2019 11:53 . Impression and Plan Plan: 08/30/19 POD#1 Daily PT/INR Coumadin 5mg PO Daily MT D/C without any immediate complications Probable D/C Mediastinal ERWIN tomorrow. Improvement in right apical ptx when ERWIN returned to wall suction Paced 90 C.I. 2.0 D/C NG EF 50-55% per echo 07/21/19 DVT Prophylaxis: [...] Description 04/12/2025 7:30 AM EDT Hospital Encounter [facility] Operating Room [address] [place] [phone] Bill Graham MD [address] [place] [address] 04/12/2025 7:30 AM EDT Anesthesia Event [facility] Operating Room [address] [place] [address] Lucio Szymanski MD [address] [place] [address] 04/12/2025 7:30 AM EDT - 04/12/2025 8:55 AM EDT Surgery [facility] Operating Room 1 [place] [address] Bill Graham MD [address] [place] [address] (LAPAROSCOPIC PERITONEAL DIALYSIS CATHETER INSERTION) Scheduled Procedures Name Priority Associated Diagnoses Date/Ti me LAPAROSCOPY, WITH PERITONEAL DIALYSIS CATHETER INSERTION Chronic kidney disease, stage V (HCC) 04/12/2025 7:30 AM EDT documented as of this encounter Visit Diagnoses Not on filedocumented in this encounter Care Teams Facilities Locator Relationship Specialty Start Date End Date Félix Monroe, STEEL FITTER [address] [facility] [address] [place] [address] PCP - General Nurse Practitioner 08/25/22 documented as of this encounter
--- OUTSIDE RECORDS SUMMARY | 2025-04-11 11:00 | XMS_ITS | Encounter Summary ---
Author Organization [employer] ([place], [place], [place], [place]) Address [address] [address] Care Team Providers Care Manager Client Service Name Role Phone Félix Monroe APRN Primary Care Provider [phone] Encounter Details Date Type Department Care Team (Late st Contact Info) Description 07/22/2019 Transcribed Document [facility] [place] Family Medicine [address] [place] [address] ProviderMaria Esther MD [address] [place] [address] Social History Tobacco Use Types Packs/Day Years Used Date Smoking Tobacco: Never Assessed Comments Unknown Sex and Gender Information Value Date Recorded Sex Assigned at Not on file Legal Sex Female 6:53 PM CDT Gender Identity Not on file Sexual Orientation Not on file documented as of this encounter Miscellaneous Notes * Cerner Conversion Note - Maria Esther ProviderMD - 07/22/2019 7:43 AM CARE CLINICIAN Initial Discharge Planning Entered On: 07/22/2019 7:47 EST Performed On: 07/22/2019 7:43 EST by KAREL CAMPBELL RN-Logistics Program Manager Initial Assessment I Previously Documented Living Environment : No qualifying data available. Living Situation : Home Patient Lives With : Spouse Emergency Contact #1 : Bola Stiles Emergency Contact #1 Phone Number : Emergency Contact #1 Relationship : [phone] Emergency Contact #2 : - Emergency Contact #2 Phone Number : - Emergency Contact #2 Relationship : - KAREL CAMPBELL RN-Logistics Program Manager - 07/22/2019 7:43 EST Initial Assessment II Sensory and Motor Deficits : None Current Home Treatments and Equipment : None KAREL CAMPBELL RN-Logistics Program Manager - 07/22/2019 7:43 EST Narrative Note Narrative Note : CM reviewed chart. CM round with MD and RN. CM met pt and pt spouse Bola [phone]. CM introduced self and explained role of cm. Pt states she lives at home with family. Stated she is independent with ADLs and talkes care of her own needs. Pt stated that unfortunately she did not have health insurance the past couple of mths. Denies DME of HH. Denies need for HH. Pt stated her DCP is to discharge home with spouse when medically ready. Pt had Echo. HX CHF and leaky valve. CM will continue to follow for d/c needs. KAREL CAMPBELL RN-Logistics Program Manager - 07/22/2019 7:43 EST documented in this encounter Plan of Treatment Upcoming Encounters Date Type Department Care Team (Late st Contact Info) Description 04/12/2025 7:30 AM EDT Hospital Encounter [facility] Operating Room 1 [place] [phone] Bill Graham MD [address] [place] [address] 04/12/2025 7:30 AM EDT Anesthesia Event [facility] Operating Room 1 [place] [address] Lucio Szymanski MD [address] [place] [address] 04/12/2025 7:30 AM EDT - 04/12/2025 8:55 AM EDT Surgery [facility] Operating Room [address] [place] [address] Bill Graham MD [address] [place] [address]312 (LAPAROSCOPIC PERITONEAL DIALYSIS CATHETER INSERTION) Scheduled Procedures Name Priority Associated Diagnoses Date/Ti me LAPAROSCOPY, WITH PERITONEAL DIALYSIS CATHETER INSERTION Chronic kidney disease, stage V (HCC) 04/12/2025 7:30 AM EDT documented as of this encounter Visit Diagnoses Not on filedocumented in this encounter Care Teams Manager Client Service Relationship Specialty Start Date End Date Félix Monroe, PEDIATRIC SPEECH LANGUAGE PATHOLOGIST [address] [place] [address] PCP - General Nurse Practitioner 08/25/22 documented as of this encounter
--- OUTSIDE RECORDS SUMMARY | 2025-04-11 11:00 | XMS_ITS | Clinical Summary ---
Author Organization [facility] Address [address] [place] [address] Care Team Providers Care Mop Man Name Role Phone Rodri Hazel MD Primary Care Provider Social History Tobacco Use Types Packs/Day Years Used Date Smoking Tobacco: Never Assessed Comments Unknown Sex and Gender Information Value Date Recorded Sex Assigned at Not on file Legal Sex Female 4:38 PM EST Gender Identity Not on file Sexual Orientation Not on file Plan of Treatment Health Maintenance Due Date Last Done Comments Breast Cancer Screening 1970 CT Colonography 1970 Colonoscopy 1970 Colorectal Cancer Screening 1970 FIT-DNA 1970 FIT 1970 FOBT 1970 Sigmoidoscopy 1970 Hepatitis B (HepB) Vaccine ( 1 of 3 - 19+ 3-dose series) 1989 Tdap/Td Vaccine >11 yo (1 - Tdap) 1989 Cervical Cancer Screening 1991 Pneumococcal Vaccines >50 yo (1 of 1 - PCV) 2020 Shingles (Shingrix) (1 of 2) 2020 Annual SDOH Screening 07/12/2024 Influenza Vaccine (#1) 2025 RSV 50+ and (1 - 1 -dose 75+ series) 2045 Haemophilus Influenzae Type B (Hib) Vaccine Aged Out No longer eligible b ased on patient's age to complete this topic Hepatitis A (HepA) Vaccine Aged Out N o longer eligible based on patient's age to complete this topic Meningococcal ACWY Aged Out No longer eligible based on patient's age to complete this topic Polio (IPV) Aged Out No longer eligi ble based on patient's age to complete this topic Rotavirus (RV) Vaccine Aged Out No lo nger eligible based on patient's age to complete this topic Care Teams Mop Man Relationship Specialty Start Date End Date Rodri Hazel MD [address] [place] [address] PCP - General 02/15/09
--- OUTSIDE RECORDS SUMMARY | 2025-04-11 11:00 | XMS_ITS | Encounter Summary ---
Author Organization [employer] ([place], [place], [place], [place]) Address [address] [address] Care Team Providers Care Aerospace Engineer Name Role Phone Félix Monroe APRN Primary Care Provider Encounter Details Date Type Department Care Team (Late st Contact Info) Description 07/22/2019 Transcribed Document [facility] [place] [address] [place] [address] ProviderMaria Esther MD [address] [place] [address] Social History Tobacco Use Types Packs/Day Years Used Date Smoking Tobacco: Never Assessed Comments Unknown Sex and Gender Information Value Date Recorded Sex Assigned at Not on file Legal Sex Female 6:53 PM CDT Gender Identity Not on file Sexual Orientation Not on file documented as of this encounter Miscellaneous Notes * Cerner Conversion Note - Historical ProviderMD - 07/22/2019 5:00 PM BARREL RIFLER HOOK Chart Check - Review Order Profile Entered On: 07/22/2019 16:53 EST Performed On: 07/22/2019 17:00 EST by DAYSI PACHECO RN Chart Check All Active Orders Reviewed : Yes DAYSI PACHECO RN - 07/22/2019 16:52 EST documented in this encounter Plan of Treatment Upcoming Encounters Date Type Department Care Team (Late st Contact Info) Description 04/12/2025 7:30 AM EDT Hospital Encounter [facility] Operating Room 1 [place] [address] Bill Graham MD [address] [facility] [address] [place] [address] 04/12/2025 7:30 AM EDT Anesthesia Event [facility] Operating Room 1 [place] [address] Lucio Szymanski MD [address] [place] [address] 04/12/2025 7:30 AM EDT - 04/12/2025 8:55 AM EDT Surgery [facility] Operating Room 1 [place] [address] Bill Graham MD [address] [facility] [address] [place] [address] (LAPAROSCOPIC PERITONEAL DIALYSIS CATHETER INSERTION) Scheduled Procedures Name Priority Associated Diagnoses Date/Ti me LAPAROSCOPY, WITH PERITONEAL DIALYSIS CATHETER INSERTION Chronic kidney disease, stage V (HCC) 04/12/2025 7:30 AM EDT documented as of this encounter Visit Diagnoses Not on filedocumented in this encounter Care Teams Aerospace Engineer Relationship Specialty Start Date End Date Félix Monroe, BILINGUAL SECRETARY [address] [facility] [address] [place] [address] PCP - General Nurse Practitioner 08/25/22 documented as of this encounter
--- OUTSIDE RECORDS SUMMARY | 2025-04-11 11:00 | XMS_ITS | Encounter Summary ---
Author Organization [employer] ([place], [place], [place], [place]) Address [address] [place] [address] Care Team Providers Care Leather Shaver Name Role Phone Félix Monroe APRN Primary Care Provider [phone] Encounter Details Date Type Department Care Team (Late st Contact Info) Description 09/02/2019 Transcribed Document [facility] [place] [address] [place] [address] ProviderMaria Esther MD [address] [place] [address] Social History Tobacco Use Types Packs/Day Years Used Date Smoking Tobacco: Never Assessed Comments Unknown Sex and Gender Information Value Date Recorded Sex Assigned at Not on file Legal Sex Female 6:53 PM CDT Gender Identity Not on file Sexual Orientation Not on file documented as of this encounter Miscellaneous Notes * Cerner Conversion Note - Historical ProviderMD - 09/02/2019 5:00 AM CHILD DAY CARE TEACHER Chart Check - Review Order Profile Entered On: 09/02/2019 6:46 EST Performed On: 09/02/2019 5:00 EST by Latia Gonzalez RN Chart Check All Active Orders Reviewed : Yes Latia Gonzalez RN - 09/02/2019 6:46 EST documented in this encounter Plan of Treatment Upcoming Encounters Date Type Department Care Team (Late st Contact Info) Description 04/12/2025 7:30 AM EDT Hospital Encounter [facility] Operating Room 1 [place] [address] Bill Graham MD [address] [facility] [address] [place] [address] 04/12/2025 7:30 AM EDT Anesthesia Event [facility] Operating Room 1 [place] [address] Lucio Szymanski MD [address] [place] [address] 04/12/2025 7:30 AM EDT - 04/12/2025 8:55 AM EDT Surgery [facility] Operating Room 1 [place] [address] Bill Graham MD [address] [facility] [address] [place] [address] (LAPAROSCOPIC PERITONEAL DIALYSIS CATHETER INSERTION) Scheduled Procedures Name Priority Associated Diagnoses Date/Ti me LAPAROSCOPY, WITH PERITONEAL DIALYSIS CATHETER INSERTION Chronic kidney disease, stage V (HCC) 04/12/2025 7:30 AM EDT documented as of this encounter Visit Diagnoses Not on filedocumented in this encounter Care Teams Leather Shaver Relationship Specialty Start Date End Date Félix Monroe, WELFARE SUPERVISOR [address] [facility] [address] [place] [address] PCP - General Nurse Practitioner 08/25/22 documented as of this encounter
--- OUTSIDE RECORDS SUMMARY | 2025-04-11 11:00 | XMS_ITS | Encounter Summary ---
Author Organization [employer] ([place], [place], [place], [place]) Address [address] [address] Care Team Providers Care Content Architect Name Role Phone Félix Monroe APRN Primary Care Provider [phone] Encounter Details Date Type Department Care Team (Late st Contact Info) Description 09/03/2019 Transcribed Document [facility] [place] [address] [place] [address] ProviderMaria Esther MD [address] [place] [address] Social History Tobacco Use Types Packs/Day Years Used Date Smoking Tobacco: Never Assessed Comments Unknown Sex and Gender Information Value Date Recorded Sex Assigned at Not on file Legal Sex Female 6:53 PM CDT Gender Identity Not on file Sexual Orientation Not on file documented as of this encounter Miscellaneous Notes * Cerner Conversion Note - Historical ProviderMD - 09/03/2019 5:00 PM DISPATCHER AUTOMOBILE RENTAL Chart Check - Review Order Profile Entered On: 09/03/2019 12:50 EST Performed On: 09/03/2019 13:00 EST by GRECIA FOLEY RN Chart Check Powerplans Initiated/Discontinued as Appropriate : Yes All Active Orders Reviewed : Yes GRECIA FOLEY RN - 09/03/2019 12:50 EST documented in this encounter Plan of Treatment Upcoming Encounters Date Type Department Care Team (Late st Contact Info) Description 04/12/2025 7:30 AM EDT Hospital Encounter [facility] Operating Room [address] [place] [address] Bill Graham MD [address] [facility] [address] [place] [address] 04/12/2025 7:30 AM EDT Anesthesia Event [facility] Operating Room 1 [place] [address] Lucio Szymanski MD [address] [place] [address] 04/12/2025 7:30 AM EDT - 04/12/2025 8:55 AM EDT Surgery [facility] Operating Room [address] [place] [address] Bill Graham MD [address] [facility] [address] [place] [address] (LAPAROSCOPIC PERITONEAL DIALYSIS CATHETER INSERTION) Scheduled Procedures Name Priority Associated Diagnoses Date/Ti me LAPAROSCOPY, WITH PERITONEAL DIALYSIS CATHETER INSERTION Chronic kidney disease, stage V (HCC) 04/12/2025 7:30 AM EDT documented as of this encounter Visit Diagnoses Not on filedocumented in this encounter Care Teams Content Architect Relationship Specialty Start Date End Date Félix Monroe, TREASURY ASSISTANT [address] [facility] [address] [place] [address] PCP - General Nurse Practitioner 08/25/22 documented as of this encounter
--- OUTSIDE RECORDS SUMMARY | 2025-04-11 11:00 | XMS_ITS | Encounter Summary ---
Author Organization [id number] ([place], [place], [place], [place]) Address [address] [place] [address] Care Team Providers Care Business Area Manager Name Role Phone Fer Félix Singh MICHAEL Primary Care Provider [phone] Encounter Details Date Type Department Care Team (Late st Contact Info) Description 09/02/2019 Transcribed Document [facility] [place] [address] [place] [address] ProviderMaria Esther MD [address] [place] [address] Social History Tobacco Use Types Packs/Day Years Used Date Smoking Tobacco: Never Assessed Comments Unknown Sex and Gender Information Value Date Recorded Sex Assigned at Not on file Legal Sex Female 6:53 PM CDT Gender Identity Not on file Sexual Orientation Not on file documented as of this encounter Miscellaneous Notes * Cerner Conversion Note - Historical ProviderMD - 09/02/2019 2:00 AM RADIUS GRINDER Panel Lay Up Worker Details Entered On: 09/02/2019 2:20 EST Performed On: 09/02/2019 2:00 EST by Latia Gonzalez RN Order Details Transport Mode Order Detail : Wheelchair Isolation Precautions Order Detail : Standard Precautions Order Detail : 0 IV Order Detail : 1 Oxygen Order Detail : 1 Nurse Collect Order Detail : 0 Lift/Transfer : Independent Central Line Order Detail : No Room Service : Appropriate Arterial Line : No Latia Gonzalez RN - 09/02/2019 2:19 EST documented in this encounter Plan of Treatment Upcoming Encounters Date Type Department Care Team (Late st Contact Info) Description 04/12/2025 7:30 AM EDT Hospital Encounter [facility] Operating Room 1 [place] [address] Bill Graham MD [address] [facility] [address] [place] [address] 04/12/2025 7:30 AM EDT Anesthesia Event [facility] Operating Room 1 [place] [address] Lucio Szymanski MD [address] [place] [address] 04/12/2025 7:30 AM EDT - 04/12/2025 8:55 AM EDT Surgery [facility] Operating Room [address] [place] [address] [place] [address] [place] [address] [address] [place] [address] (LAPAROSCOPIC PERITONEAL DIALYSIS CATHETER INSERTION) Scheduled Procedures Name Priority Associated Diagnoses Date/Ti me LAPAROSCOPY, WITH PERITONEAL DIALYSIS CATHETER INSERTION Chronic kidney disease, stage V (HCC) 04/12/2025 7:30 AM EDT documented as of this encounter Visit Diagnoses Not on filedocumented in this encounter Care Teams Business Area Manager Relationship Specialty Start Date End Date Félix Monroe, SOLAR PHOTOVOLTAIC INSTALLER [address] [facility] [address] [place] [address] PCP - General Nurse Practitioner 08/25/22 documented as of this encounter
--- OUTSIDE RECORDS SUMMARY | 2025-04-11 11:00 | XMS_ITS | Encounter Summary ---
Author Organization [employer] ([place], [place], [place], [place]) Address [address] [address] Care Team Providers Care Electroneurodiagnostic Technologist Name Role Phone Fer Félix Francisco RODRIGUEZ Primary Care Provider Encounter Details Date Type Department Care Team (Late st Contact Info) Description 09/01/2019 Transcribed Document [facility] [place] Family Medicine [address] [place] [address] ProviderMaria Esther MD [address] [place], [place] [address] Social History Tobacco Use Types Packs/Day Years Used Date Smoking Tobacco: Never Assessed Comments Unknown Sex and Gender Information Value Date Recorded Sex Assigned at Not on file Legal Sex Female 6:53 PM CDT Gender Identity Not on file Sexual Orientation Not on file documented as of this encounter Miscellaneous Notes * Cerner Conversion Note - Maria Esther ProviderMD - 09/01/2019 5:40 PM MANAGER BANK On Going Discharge Planning Entered On: 09/01/2019 17:41 EST Performed On: 09/01/2019 17:40 EST by Yolanda Ramsey, RN-Swim CoachTrack Inspecting Supervisor Progress Note Discharge Arrangements : Patient Post-Acute Information Patient Name: CORRIE SMITH Gender: Female : [birth year] Age: 49 Years No Post-Acute Placement(s) Listed No Post-Acute Service(s) Listed No [place] Referral(s) Listed Yolanda Ramsey, RN-Swim Coach - 09/01/2019 17:42 EST Discharge Options Discussed with Patient : Discharge transportation, DME, Home Health, Outpatient services Barriers to Discharge Identified : Clinical Condition of Patient Barriers to Discharge Unresolved : Clinical Condition of Patient Patient Offered Choice/Affiliations Explained : Yes List/Info Provided Pt/Fam/Support Person : Other: OP Cardiac Rehab Is the Patient Meeting Medical Necessity : Yes Did you Attend Multidisciplinary Rounds? : Yes Yolanda Ramsey RN-Swim Coach - 09/01/2019 17:40 EST Narrative Progress Note Narrative Progress Note : Patient is a high readmission risk. ELOS: 6 days HD#3 POD#3 MVR; telemetry NSR, PW/Temp Pacer, INR 4.6 - Hold Coumadin, CKD4 cr 1.9, O2 sat 96% on 5 liters. DCP: Anticipate patient will discharge home with family. Monitor for home Oxygen needs. CM will continue to follow. Historical Progress Note : Day 3/POD 3 Mitral Repair; 02=6L/91%; ERWIN d/c; INR 1.6; paced; on transfer to [facility], DCP: monitor for home oxygen need; home with spouse. ZAINA GUERRERO Rn-Swim Coach - 08/31/19 10:48:17 Message sent to PCP finder re: Pt request for PCP ref. pt's Mother, Zoë Buchanan - [phone] @ BS SIMRAN RANDALL RN-Swim Coach - 08/30/19 12:50:38 CM met w/pt and mother @ BS. NGT, MVR POD 2. for PCP ref - pt would like Dr Zelaya for PCP in [facility] SIMRAN RANDALL RN-Swim Coach - 08/30/19 12:41:58 CM note 08/29/19 Day 1 - Mitral Valve Repair Hx Htn, Mitral Insufficiency, Pul Edema, RENETTA, COPD, Tobacco Use Moderate Readmission Risk CTS/PT Pt on vent; spouse Bola @ bedside. 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 OP Cardiac Rehab discussed and he says he knows she needs it but it will be up to her to do it. SIMRAN RANDALL, RN-Swim Coach - 08/30/19 12:38:15 OP Cardiac Rehab referral placed to [facility]; DCP - likely home with spouse pending therapy recommendation. ZAINA GUERRERO, Rn-Swim Coach - 08/29/19 15:30:00 Yolanda Ramsey RN-Swim Coach - 09/01/2019 17:42 EST Electronically signed by [facility], [facility] Conversion Geology Professor Cerner at 10/28/2022 7:05 PM CDT documented in this encounter Plan of Treatment Upcoming Encounters Date Type Department Care Team (Late st Contact Info) Description 04/12/2025 7:30 AM EDT Hospital Encounter [facility] Operating Room [address] [place] [address] Bill Graham MD [address] [place] [address] [address] 04/12/2025 7:30 AM EDT Anesthesia Event [facility] Operating Room [address] [place] [address] Lucio Szymanski MD [address] [place] [address] 04/12/2025 7:30 AM EDT - 04/12/2025 8:55 AM EDT Surgery [facility] Operating Room [address] [place] [address] Bill Graham MD [address] [place] [address] [address] (LAPAROSCOPIC PERITONEAL DIALYSIS CATHETER INSERTION) Scheduled Procedures Name Priority Associated Diagnoses Date/Ti me LAPAROSCOPY, WITH PERITONEAL DIALYSIS CATHETER INSERTION Chronic kidney disease, stage V (HCC) 04/12/2025 7:30 AM EDT documented as of this encounter Visit Diagnoses Not on filedocumented in this encounter Care Teams Electroneurodiagnostic Technologist Relationship Specialty Start Date End Date Félix Monroe, WILLOW MACHINE TENDER [address] [facility] [address] [place] [address] PCP - General Nurse Practitioner 08/25/22 documented as of this encounter
--- OUTSIDE RECORDS SUMMARY | 2025-04-11 11:00 | XMS_ITS | Encounter Summary ---
Author Organization [employer] ([place], [place], [place], [place]) Address [address] [place] [address] Care Team Providers Care Family Law Attorney Name Role Phone Fer Félix Francisco RODRIGUEZ Primary Care Provider [phone] Encounter Details Date Type Department Care Team (Late st Contact Info) Description 08/30/2019 Transcribed Document [facility] Family Medicine [address] [place] [address] ProviderMaria Esther MD [address] [place] [address] Social History Tobacco Use Types Packs/Day Years Used Date Smoking Tobacco: Never Assessed Comments Unknown Sex and Gender Information Value Date Recorded Sex Assigned at Not on file Legal Sex Female 6:53 PM CDT Gender Identity Not on file Sexual Orientation Not on file documented as of this encounter Miscellaneous Notes * Cerner Conversion Note - Maria Esther ProviderMD - 08/30/2019 9:47 AM FIELD ORGANIZER Consult Phone Call Documentation Entered On: 08/30/2019 12:14 EST Performed On: 08/30/2019 9:47 EST by [facility] Coord Phone Call for Consults Consult Phone Call/Page Attempt : First call Consult Reason : s/p mv repair Physician Requested for Consult : SHAWANDA LUIS MD-NEP Provider Service Notified Name : Nephrology Physician Covering for Consult : SHAWANDA LUIS MD-NEP Date and Time Call Returned : 08/29/2019 12:13 EST Consult, Additional Information : spoke to Mahi Morgan, [facility] Coord - 08/30/2019 12:13 EST documented in this encounter Plan of Treatment Upcoming Encounters Date Type Department Care Team (Late st Contact Info) Description 04/12/2025 7:30 AM EDT Hospital Encounter [facility] Operating Room 1 [place] [address] [place] [address] [place] [address] [address] [place] [address] 04/12/2025 7:30 AM EDT Anesthesia Event [facility] Operating Room 1 [place] [address] Lucio Szymanski MD [address] [place] [address] 04/12/2025 7:30 AM EDT - 04/12/2025 8:55 AM EDT Surgery [facility] Operating Room 1 [place] [address] [place] [address] [place] [address] [address] (LAPAROSCOPIC PERITONEAL DIALYSIS CATHETER INSERTION) Scheduled Procedures Name Priority Associated Diagnoses Date/Ti me LAPAROSCOPY, WITH PERITONEAL DIALYSIS CATHETER INSERTION Chronic kidney disease, stage V (HCC) 04/12/2025 7:30 AM EDT documented as of this encounter Visit Diagnoses Not on filedocumented in this encounter Care Teams Family Law Attorney Relationship Specialty Start Date End Date Félix Monroe, PIPE TESTER [address] [facility] [address] [place] [address] PCP - General Nurse Practitioner 08/25/22 documented as of this encounter
--- OUTSIDE RECORDS SUMMARY | 2025-04-11 11:00 | XMS_ITS | Encounter Summary ---
Author Organization [employer] ([place], [place], [place], [place]) Address [address] [address] Care Team Providers Care Press Tender Incendiary Grenade Name Role Phone MonroeRamosie Francisco RODRIGUEZ Primary Care Provider [phone] Encounter Details Date Type Department Care Team (Late st Contact Info) Description 09/01/2019 Transcribed Document [facility] [place] Family Medicine [address] [place] [address] ProviderMaria Esther MD [address] [place], [place] [address] Social History Tobacco Use Types Packs/Day Years Used Date Smoking Tobacco: Never Assessed Comments Unknown Sex and Gender Information Value Date Recorded Sex Assigned at Not on file Legal Sex Female 6:53 PM CDT Gender Identity Not on file Sexual Orientation Not on file documented as of this encounter Miscellaneous Notes * Cerner Conversion Note - Maria Esther Reyes MD - 09/01/2019 5:22 PM ENGINE BUILDUP MECHANIC Patient: CORRIE SMITH Age: 49 Years Sex: Female : 1970 Subjective She is feeling much better. She reports good appetite. She denies fever, sweats, chills, nausea or vomiting. Her breathing is comfortable. She does not have uncontrolled pain. She denies cough. She is in good spirits. Vital Signs T: 36.9 ??C TMIN: 36.7 ??C TMAX: 37.3 ??C HR: 66(Monitored) RR: 18 BP: 108/73 SpO2: 96% Oxygen Settings (Last) Oxygen Therapy Mode: Nasal cannula (09/01/19 20:11:00) Oxygen Flow Rate: 3 Liter/Min (09/01/19 20:11:00) Intake & Output Totals Last 24 Hours (7a-7a) Input Total: 171.83 mL Output Total: 2350 mL Balance: -2178.17 mL Physical Exam General: Alert, Thin, chronically ill-appearing, conversant Cardiovascular: S1-S2, regular rhythm, normal rate, Midline sternotomy incision with dressing in place Pulmonary: Lungs clear to auscultation bilaterally, no wheezes rales or rhonchi, On oxygen per nasal cannula Gastrointestinal: Abdomen is soft, nontender, no guarding, nondistended Genitourinary: No CVA tenderness Musculoskeletal:Poor muscle tone, no lower extremity edema Neuro/psych: Moves all extremities spontaneously, alert and oriented, thoughts are fluent and appropriate Skin: No lesions, rashes or ecchymoses Assessment and plan: Acute kidney injury on chronic kidney disease stage IV Mitral valve disease, status post surgery Tobacco use disorder Acute kidney injury on chronic kidney disease stage IV: Her serum creatinine has plateaued at 1.8-1.9 mg/dL. I think this is near her previous baseline. She is feeling better. It's possible that if her valvular heart surgery improve her cardiac output that her renal perfusion may continue to improve. However, her clearance has been previously stable preoperatively. -I have challenged the patient to have good nutrition. I'm reassured that her urine output is excellent. She does not seem volume overloaded. I do not think she needs aggressive diuresis.She is currently on furosemide and spironolactone. -We will continue to monitor her clearance, urine output and electrolytes. I'm reassured by her clinical stability. She has routine outpatient nephrology clinic follow-up already arranged. Mendoza Gallardo MD -Nephrology Note dictated with [employer] voice recognition system Partner with Dr. Howell, Dr. Pantoja and Dr. Muniz Medications acetaminophen-HYDROcodone 325 mg-5 mg oral tablet, 2 Tab, Oral, Q4H, PRN albumin human 5% intravenous solution, 12.5 Gram= 250 mL, IV Piggyback, Q1H, PRN amLODIPine, 10 mg= 1 Tab, Oral, Daily ascorbic acid, 500 mg= 1 Tab, Oral, BID aspirin, 81 mg= 1 Tab, Oral, Daily bisacodyl, 10 mg= 2 Tab, Oral, At Bedtime calcium gluconate carvedilol, 25 mg= 1 Tab, Oral, BID Colace, 100 mg= 1 Cap, Oral, BID Dulcolax Laxative, 10 mg= 1 Supp, Rectal, 1-Time, PRN DuoNeb 0.5 mg-2.5 mg/3 mL inhalation solution, 3 mL, Nebulized Inhalation , RT_Q4H, PRN fluocinonide 0.05% topical cream, 1 Application, Topical, QID, PRN Lasix, 40 mg= 1 Tab, Oral, Daily magnesium sulfate + Dextrose 5% in Water intravenous solution 50 mL Milk of Magnesia 8% oral suspension, 30 mL, Oral, Q8H, PRN nicotine 21 mg/24 hr transdermal film, extended release, 1 Patch, TransDermal, Daily Normal Saline Flush, 10 mL, IV Push, Q8H Normal Saline Flush, 10 mL, IV Push, See Comment, PRN Normal Saline Flush, 10 mL, IV Push, See Comment, PRN potassium chloride 10 mEq/50 mL intravenous [...] Test Name Test Result Date/Time Sodium Level 136 mmol/L 09/01/2019 04:51 EST Potassium Level 3.5 mmol/L 09/01/2019 04:51 EST Chloride Level 104 mmol/L 09/01/2019 04:51 EST Carbon Dioxide Level 29 mmol/L 09/01/2019 04:51 EST Anion Gap 6 (Low) 09/01/2019 04:51 EST Glucose Level 104 mg/dL 09/01/2019 04:51 EST Blood Urea Nitrogen 25 mg/dL (High) 09/01/2019 04:51 EST Creatinine Level 1.90 mg/dL (High) 09/01/2019 04:51 EST eGFR 34 mL/min/1.73m2 (Low) 09/01/2019 04:51 EST eGFR NonAfrican 28 mL/min/1.73m2 (Low) 09/01/2019 04:51 EST Bun/Creatinine 13.2 09/01/2019 04:51 EST Calcium Level 8.7 mg/dL 09/01/2019 04:51 EST Device Comment 1 Notified Nurse RBV 09/01/2019 20:39 EST Device Comment 1 Notified MD RBV 09/01/2019 05:19 EST Glucose POC2 102 mg/dL 09/01/2019 20:39 EST Glucose POC2 109 mg/dL 09/01/2019 05:19 EST WBC 9.9 K/uL 09/01/2019 04:51 EST RBC 2.89 Million/uL (Low) 09/01/2019 04:51 EST Hgb 8.8 g/dL (Low) 09/01/2019 04:51 EST Hct 26.8 % (Low) 09/01/2019 04:51 EST MCV 92.7 fL 09/01/2019 04:51 EST MCH 30.4 pg 09/01/2019 04:51 EST MCHC 32.8 Gram/dL 09/01/2019 04:51 EST Platelet Count 100 K/uL (Low) 09/01/2019 04:51 EST MPV 13.4 fL (High) 09/01/2019 04:51 EST RDW 14.6 % 09/01/2019 04:51 EST Neut % 77.9 % (High) 09/01/2019 04:51 EST Neut # 7.74 K/uL (High) 09/01/2019 04:51 EST Lymph % 12.5 % (Low) 09/01/2019 04:51 EST Lymph # 1.24 x10(3)/uL 09/01/2019 04:51 EST [place] % 7.5 % 09/01/2019 04:51 EST [place] # 0.74 K/uL 09/01/2019 04:51 EST Eos % 1.5 % 09/01/2019 04:51 EST Eos # 0.15 x10(3)/uL 09/01/2019 04:51 EST Baso % 0.2 % 09/01/2019 04:51 EST Baso # 0.02 x10(3)/uL 09/01/2019 04:51 EST Slide Review No 09/01/2019 04:51 EST IG# 0.04 x10(3)/uL 09/01/2019 04:51 EST IG% 0.40 % 09/01/2019 04:51 EST PT 48.3 Second(s) (High) 09/01/2019 05:30 EST INR 4.6 (High) 09/01/2019 05:30 EST Electronically signed by [facility], [facility] Conversion Clinical Statistics Manager Cerner at 10/28/2022 7:05 PM CDT documented in this encounter Plan of Treatment Upcoming Encounters Date Type Department Care Team (Late st Contact Info) Description 04/12/2025 7:30 AM EDT Hospital Encounter [facility] Operating Room 1 [place] [address] Bill Graham MD [address] [place] [address] [address] 04/12/2025 7:30 AM EDT Anesthesia Event [facility] Operating Room 1 [place] [address] Lucio Szymanski MD [address] [place] [address] 04/12/2025 7:30 AM EDT - 04/12/2025 8:55 AM EDT Surgery [facility] Operating Room 1 [place] [address] Bill Graham MD [address] [place] [address] (LAPAROSCOPIC PERITONEAL DIALYSIS CATHETER INSERTION) Scheduled Procedures Name Priority Associated Diagnoses Date/Ti me LAPAROSCOPY, WITH PERITONEAL DIALYSIS CATHETER INSERTION Chronic kidney disease, stage V (HCC) 04/12/2025 7:30 AM EDT documented as of this encounter Visit Diagnoses Not on filedocumented in this encounter Care Teams Press Tender Incendiary Grenade Relationship Specialty Start Date End Date Félix Monroe, APPRAISER TIMBER [address] [facility] [address] [place] [address] PCP - General Nurse Practitioner 08/25/22 documented as of this encounter
--- OUTSIDE RECORDS SUMMARY | 2025-04-11 11:00 | XMS_ITS | Encounter Summary ---
Author Organization [employer] ([place], [place], [place], [place]) Address [address] [address] Care Team Providers Care Supervisor Taping Name Role Phone Monroe Félix Francisco RODRIGUEZ Primary Care Provider [phone] Encounter Details Date Type Department Care Team (Late st Contact Info) Description 07/22/2019 Transcribed Document [facility] [place] Family Medicine [address] [place] [address] ProviderMaria Esther MD [address] [place] [address] Social History Tobacco Use Types Packs/Day Years Used Date Smoking Tobacco: Never Assessed Comments Unknown Sex and Gender Information Value Date Recorded Sex Assigned at Not on file Legal Sex Female 6:53 PM CDT Gender Identity Not on file Sexual Orientation Not on file documented as of this encounter Miscellaneous Notes * Cerner Conversion Note - Maria Esther Reyes MD - 07/22/2019 10:58 AM DOG LICENSE OFFICER SUPERVISOR Patient: [facility]: [id number] Age: 49 years Sex: Female : 1970 Associated Diagnoses: None Author: SABRINA CONLEY PA Basic Information Corrie Smith is a 49-year-old female with a known history of valvular heart disease, congestive heart failure, and tobacco abuse. She has had 2 hospital admissions for CHF over the past 15 years. She recently presented to [facility] with worsening shortness of breath. She stopped taking her cardiac medication 4 months ago when she lost her insurance. At [facility] she had a transthoracic echocardiogram which showed severe MR. She also had an elevated pro BNP of 31,000 as well as an elevated troponin at 0.85. The patient was given a loading dose of aspirin and Brilinta, given nitroglycerin and intravenous Lasix, and was started on a heparin drip and then was transferred to [facility]. Dr. Александр Valdez has been asked to evaluate this lady for mitral valve surgery. Physical Examination General: Alert and oriented. Respiratory: Lungs are clear to auscultation. Cardiovascular: Normal rate, Regular rhythm, No gallop, Good pulses equal in all extremities, No edema, 3/6 systolic ejection murmur loudest at the apex. Review / Management Results review: JUL 22 03:25 139 103 H 26 / H 111 L 2.9 31 H 2.10 \ JUL 22 03:25 \ 11.4 / 6.3 L 155 / 34.1 \. Chest x-ray results Casting Wheel Operator Helper: Reveals a Normal sinus rhythm. Impression and Plan 07/21/19 Mitral valve replacement hopefully Wednesday or Wednesday by Dr. Valdez. (Got Brilinta at [facility] >2 days ago) Creatinine 2.2 (2.0 yesterday) renal following Potassium 2.9, getting replacement Diagnosis documented in this encounter Plan of Treatment Upcoming Encounters Date Type Department Care Team (Late st Contact Info) Description 04/12/2025 7:30 AM EDT Hospital Encounter [facility] Operating Room 1 [place] [address] [place] [address] [place] [address] [address] [place] [address] 04/12/2025 7:30 AM EDT Anesthesia Event [facility] Operating Room 1 [place] [address] Lucio Szymanski MD [address] [place] [address] 04/12/2025 7:30 AM EDT - 04/12/2025 8:55 AM EDT Surgery [facility] Operating Room 1 [place] [address] [place] [address] [place] [address] [address] [place] [address] (LAPAROSCOPIC PERITONEAL DIALYSIS CATHETER INSERTION) Scheduled Procedures Name Priority Associated Diagnoses Date/Ti me LAPAROSCOPY, WITH PERITONEAL DIALYSIS CATHETER INSERTION Chronic kidney disease, stage V (HCC) 04/12/2025 7:30 AM EDT documented as of this encounter Visit Diagnoses Not on filedocumented in this encounter Care Teams Supervisor Taping Relationship Specialty Start Date End Date Félix Monroe, SCANNER OPERATOR [address] [facility] [address] [place] [address] PCP - General Nurse Practitioner 08/25/22 documented as of this encounter
--- OUTSIDE RECORDS SUMMARY | 2025-04-11 11:00 | XMS_ITS | Encounter Summary ---
Author Organization [employer] ([place], [place], [place], [place]) Address [address] [address] Care Team Providers Care Toy Parts Former Supervisor Name Role Phone Fer Félix Francisco RODRIGUEZ Primary Care Provider [phone] Encounter Details Date Type Department Care Team (Late st Contact Info) Description 07/22/2019 Transcribed Document [facility] [place] Family Medicine [address] [place] [address] ProviderMaria Esther MD [address] [place] [address] Social History Tobacco Use Types Packs/Day Years Used Date Smoking Tobacco: Never Assessed Comments Unknown Sex and Gender Information Value Date Recorded Sex Assigned at Not on file Legal Sex Female 6:53 PM CDT Gender Identity Not on file Sexual Orientation Not on file documented as of this encounter Miscellaneous Notes * Cerner Conversion Note - Historical ProviderMD - 07/22/2019 4:00 AM FOLDER HAND Height and Weight, Routine Entered On: 07/22/2019 5:21 EST Performed On: 07/22/2019 4:00 EST by [facility]ili Cabrera [facility] Height and Weight, Routine Routine Weight Source : Bed scale Routine Weight Entry Format : [place] Routine Weight, Pounds : 131 lb Routine Weight, Ounces : 7 oz Routine Weight Calculation : 59.74 kg Height Source : Chart Height Entry Format : [place] Height, Feet : 5 ft Height, Inches : 6 Inch Clinical Height : 167.64 cm Body Surface Area (BSA), Routine : 1.67 m2 Body Mass Index (BMI), Routine : 21.26 kg/m2 Wili Cabrera Care Asst-Health Unit Coord - 07/22/2019 5:21 EST documented in this encounter Plan of Treatment Upcoming Encounters Date Type Department Care Team (Late st Contact Info) Description 04/12/2025 7:30 AM EDT Hospital Encounter [facility] Operating Room 1 [place] [address] [place] [address] [place] [address] [address] [place] [address] 04/12/2025 7:30 AM EDT Anesthesia Event [facility] Operating Room 1 [place] [address] Lucio Szymanski MD [address] [place] [address] 04/12/2025 7:30 AM EDT - 04/12/2025 8:55 AM EDT Surgery [facility] Operating Room 1 [place] [address] Bill Graham MD [address] [place] [address] (LAPAROSCOPIC PERITONEAL DIALYSIS CATHETER INSERTION) Scheduled Procedures Name Priority Associated Diagnoses Date/Ti me LAPAROSCOPY, WITH PERITONEAL DIALYSIS CATHETER INSERTION Chronic kidney disease, stage V (HCC) 04/12/2025 7:30 AM EDT documented as of this encounter Visit Diagnoses Not on filedocumented in this encounter Care Teams Toy Parts Former Supervisor Relationship Specialty Start Date End Date Félix Monroe, PIPEMAN [address] [facility] [address] [place], [place] [id number] PCP - General Nurse Practitioner 08/25/22 documented as of this encounter
--- OUTSIDE RECORDS SUMMARY | 2025-04-11 11:00 | XMS_ITS | Encounter Summary ---
Author Organization [employer] ([place], [place], [place], [place]) Address [address] [place] [address] Care Team Providers Care Cyber Systems Engineer Name Role Phone Monroe Félix Francisco RODRIGUEZ Primary Care Provider [phone] Encounter Details Date Type Department Care Team (Late st Contact Info) Description 07/21/2019 Transcribed Document [facility] Family Medicine [address] [place] [address] ProviderMaria Esther MD [address], [place] [id number] Social History Tobacco Use Types Packs/Day Years Used Date Smoking Tobacco: Never Assessed Comments Unknown Sex and Gender Information Value Date Recorded Sex Assigned at Not on file Legal Sex Female 6:53 PM CDT Gender Identity Not on file Sexual Orientation Not on file documented as of this encounter Miscellaneous Notes * Cerner Conversion Note - Maria Esther Reyes MD - 07/21/2019 12:29 PM AQUARIUM SPECIALIST Patient: CORRIE SMITH [facility]: [id number] Age: 49 years Sex: Female : 1970 Associated Diagnoses: None Author: SHAWANDA LUIS MD-NEP Basic Information Time Seen: Date & Time 07/21/2019 12:29:00. Source of history: Nurse, Medical personnel, Medical record, Patient. History limitation: None. History of Present Illness [ Corrie Smith is a 49-year-old female with a history of valvular heart disease, congestive heart failure, and tobacco abuse presented to [facility] with a 2-month history of worsening shortness of breath. Patient reports that over the past 15 years she has had 2 admissions for decompensated heart failure, during which time she has been told that she had a leaky valve. She most recently was hospitalized but 7 years ago. She had been on lisinopril, Coreg, simvastatin, and a low-dose aspirin, but she stopped taking these about 4 months ago when she lost her insurance. She reports that since around , she has been having worsening shortness of breath, particularly dyspnea on exertion. She reports orthopnea, sleeping with 4-5 pillows at night, as well as intermittent paroxysmal nocturnal dyspnea for the last 3 nights. The PND prompted her to come to the ER for evaluation. At the ER at [facility], she had a chest x-ray which showed mild CHF. A CTA of her chest demonstrated pulmonary edema consistent with heart failure. She had a bedside echo done by the ED physician, which showed a mildly reduced ejection fraction and findings concerning for mitral regurgitation. Cardiology was consulted, formal echocardiogram was done, which did show severe mitral regurgitation per report. I am unable to pull up the echo that was sent on the disc at this time. She also reportedly had a normal left ventricular ejection fraction. She was found to have an elevated pro BNP of 31,000 as well as an elevated troponin at 0.85. The patient was given a loading dose of aspirin and Brilinta, given nitroglycerin and intravenous Lasix, was started on a heparin drip, and was transferred to our facility for higher level of care. ] Dr Cooney As above patient has a history of chronic kidney disease, she was told to 3 months ago that her kidney functions are low. Over the last 3 months patient is having problems taking her medications due to lack of insurance. She has a long history of hypertension and valvular heart disease. She did receive a CT angiography before her transfer to our facility. Her serum creatinine was elevated and I was asked to see her in consultation. She admits to taking ibuprofen as needed every now and then. She denies any urinary symptoms no hematuria or passing kidney stones. She stopped taking her IVA inhibitor's and beta blockers over the last 3 month period Review of Systems ROS reviewed as documented in chart Health Status Allergies: Allergic Reactions (Selected) Severity [...] 10 mg, IV Push, Q2H, PRN: Hypertension magnesium sulfate: 1 Gram, 100 mL, 100 mL/Hr, IV Piggyback, 1-Time nicotine 21 mg/24 hr transdermal film, extended release: 1 Patch, TransDermal, Daily spironolactone: 50 mg, Oral, Daily Pending Complete influenza virus vaccine, inactivated: 0.5 mL, IntraMuscular, [id number], Medications (15) Active Scheduled: (9) amLODIPine 10 mg tab 10 mg 1 Tab, Oral, Daily aspirin EC 81 mg tab 81 mg 1 Tab, Oral, Daily bumetanide 1 mg/4 mL inj 1 mg 4 mL, IV Push, Daily carvedilol 25 mg tab 25 mg 1 Tab, Oral, BID isosorbide MONOnitrate ER 30 mg tab 15 mg 0.5 Tab, Oral, Daily magnesium sulfate 1 Gram 100 mL, IV Piggyback, 1-Time nicotine 21 mg/24 hr patch 1 Patch, TransDermal, Daily pantoprazole EC 40 mg tab 40 mg 1 Tab, Oral, Daily spironolactone 25 mg tab 50 mg 2 Tab, Oral, Daily Continuous: (1) heparin/NaCl 0.45% [...] Medical HTN - Hypertension / SNOMED CT [id number] / Confirmed, Active Problems (2) COPD (chronic obstructive pulmonary disease) HTN - Hypertension Histories Past Medical History: Active HTN - Hypertension ([id number]) Family History: No family history items have been selected or recorded. Procedure history: No active procedure history items have been selected or recorded. Social History Social & Psychosocial Habits Alcohol 2019 Alcohol Use History, Social Habits Yes Date/Time of Last Drink once a year Substance Abuse 2019 Recreational Drug Use History Yes Recreational Drug Use Last 12 Months Yes Tobacco 2019 Smoking Status 10 or more cigarettes (1/ Smokeless Tobacco Status Never 2019 Years of Tobacco Use 30 Second Hand Smoke Exposure Yes . Physical Examination VS/Measurements Vitals Signs (last 24 hrs) Last Charted Minimum Maximum Temp 97.4 (JUL 21:) 97.4 (JUL 21) 97.7 (JUL 20:12) Apical HR 80 (JUL 21 11:55) 75 (JUL 21 06:57) 80 (JUL 21 11:55) Mon HR 83 (JUL 21:) 72 (JUL 21:15) 83 (JUL 21:) Resp Rate 20 (JUL 21) 17 (JUL 20 21:12) H 35 (JUL 21 05:40) SBP H 189 (JUL 21:) H 154 (JUL 20:12) H 191 (JUL 21 05:46) DBP H 113 (JUL 21:) H 98 (JUL 21 04:00) H 132 (JUL 21 05:46) MAP 133 (JUL 21:) 101 (JUL 21 00:00) 158 (JUL 21 05:46) SpO2 100 (JUL 21:15) L 92 (JUL 21 00:00) 100 (JUL 21:15) General: Alert and oriented, No acute distress. Eye: Normal conjunctiva, Vision unchanged. HENT: Normocephalic, Normal hearing. Neck: Supple, Non-tender, No carotid bruit, No jugular venous distention, No lymphadenopathy, No thyromegaly. Respiratory: Lungs are clear to auscultation, Respirations are non-labored, Breath sounds are equal, Symmetrical chest wall expansion, No chest wall tenderness. Cardiovascular: No gallop. Gastrointestinal: Soft, Non-tender, Non-distended, Normal bowel sounds, No organomegaly. Lymphatics: No lymphadenopathy neck, axilla, groin. Musculoskeletal: No swelling. Neurologic: Alert, Oriented, No focal deficits, Cranial Nerves II-XII are grossly intact. Cognition and Speech: Oriented, Speech clear and coherent, Functional cognition intact. Psychiatric: Cooperative, Appropriate mood & affect, Normal judgment, Non-suicidal. Review / Management Results review: Labs (Last [...] 0.064 (JUL 21) H 0.082 (JUL 20) . Radiology Results (Last 48 hours) [id number] -- 2019 19:20 CR Chest 1 Vw [...] within normal limits.IMPRESSION: Morphologically normal kidneys bilaterally. Impression and Plan 1. Chronic kidney disease stage III most probably secondary to hypertensive nephrosclerosis, baseline serum creatinine is not known to me. 2. Risk of contrast-induced nephropathy, serum creatinine plateaued at 2 mg/dL today, we will continue watching. 3. Severe mitral regurgitation, cardiology consultation is appreciated. 4. Severe hypertension with hypokalemia, I will check the aldosterone level and PRA ratio to rule out primary hyperaldosteronism, patient would benefit from spironolactone therapy. Blood pressure is uncontrolled and will need to restart the IVA inhibitor's when her serum creatinine is stable. documented in this encounter Plan of Treatment Upcoming Encounters Date Type Department Care Team (Late st Contact Info) Description 04/12/2025 7:30 AM EDT Hospital Encounter [facility] Operating Room [address] [place] [id number] [place] [address] [place] [address] [address] [place] [id number] 04/12/2025 7:30 AM EDT Anesthesia Event [facility] Operating [address] [place] [phone] Lucio Szymanski MD [address] [place] [id number] 04/12/2025 7:30 AM EDT - 04/12/2025 8:55 AM EDT Surgery [facility] Operating [address] [place] [address] Bill Graham MD [address] [facility] [address] [place] [address] (LAPAROSCOPIC PERITONEAL DIALYSIS CATHETER INSERTION) Scheduled Procedures Name Priority Associated Diagnoses Date/Ti me LAPAROSCOPY, WITH PERITONEAL DIALYSIS CATHETER INSERTION Chronic kidney disease, stage V (HCC) 04/12/2025 7:30 AM EDT documented as of this encounter Visit Diagnoses Not on filedocumented in this encounter Care Teams Cyber Systems Engineer Relationship Specialty Start Date End Date Félix Monroe, CITY COUNCILMAN [address] [facility] [address] [place] [address] PCP - General Nurse Practitioner 08/25/22 documented as of this encounter
--- OUTSIDE RECORDS SUMMARY | 2025-04-11 11:00 | XMS_ITS | Encounter Summary ---
Author Organization [facility] ([place], [place], [place], [place]) Address [address] [address] Care Team Providers Care Animal Rides Manager Name Role Phone Monroe Félix Francisco RODRIGUEZ Primary Care Provider [phone] Encounter Details Date Type Department Care Team (Late st Contact Info) Description 09/04/2019 Transcribed Document [facility] Family Medicine [address] [place] [address] ProviderMaria Esther MD [address], [place] [id number] Social History Tobacco Use Types Packs/Day Years Used Date Smoking Tobacco: Never Assessed Comments Unknown Sex and Gender Information Value Date Recorded Sex Assigned at Not on file Legal Sex Female 6:53 PM CDT Gender Identity Not on file Sexual Orientation Not on file documented as of this encounter Miscellaneous Notes * Cerner Conversion Note - Maria Esther Reyes MD - 09/04/2019 12:41 PM DETENTION ATTENDANT Patient Education Materials Follows: Steps to Quit Smoking Smoking tobacco can be bad for your health. It can also affect almost every organ in your body. Smoking puts you and people around you at risk for many serious long-lasting (chronic) diseases. Quitting smoking is hard, but it is one of the best things that you can do for your health. It is never too late to quit. What are the benefits of quitting smoking? When you quit smoking, you lower your risk for getting serious diseases and conditions. They can include: ??? Lung cancer or lung disease. ??? Heart disease. ??? Stroke. ??? Heart attack. ??? Not being able to have children (infertility). ??? Weak bones (osteoporosis) and broken bones (fractures). If you have coughing, wheezing, and shortness of breath, those symptoms may get better when you quit. You may also get sick less often. If you are , quitting smoking can help to lower your chances of having a baby of low weight. What can I do to help me quit smoking? Talk with your doctor about what can help you quit smoking. Some things you can do (strategies) include: ??? Quitting smoking totally, instead of slowly cutting back how much you smoke over a period of time. ??? Going to in-person counseling. You are more likely to quit if you go to many counseling sessions. ??? Using resources and support systems, such as: ? Online chats with a counselor. ? Phone quitlines. ? Printed self-help materials. ? Support groups or group counseling. ? Text messaging programs. ? Mobile phone apps or applications. ??? Taking medicines. Some of these medicines may have nicotine in them. If you are or , do not take any medicines to quit smoking unless your doctor says it is okay. Talk with your doctor about counseling or other things that can help you. Talk with your doctor about using more than one strategy at the same time, such as taking medicines while you are also going to in-person counseling. This can help make quitting easier. What things can I do to make it easier to quit? Quitting smoking might feel very hard at first, but there is a lot that you can do to make it easier. Take these steps: ??? Talk to your family and friends. Ask them to support and encourage you. ??? Call phone quitlines, reach out to support groups, or work with a counselor. ??? Ask people who smoke to not smoke around you. ??? Avoid places that make you want (trigger) to smoke, such as: ? Bars. ? Parties. ? Smoke-break areas at work. ??? Spend time with people who do not smoke. ??? Lower the stress in your life. Stress can make you want to smoke. Try these things to help your stress: ? Getting regular exercise. ? Deep-breathing exercises. ? Yoga. ? Meditating. ? Doing a body scan. To do this, close your eyes, focus on one area of your body at a time from head to toe, and notice which parts of your body are tense. Try to relax the muscles in those areas. ??? Download or buy apps on your mobile phone or tablet that can help you stick to your quit plan. There are many free apps, such as QuitGuide from the CDC (Centers for Disease Control and Prevention). You can find more support from smokefree.gov and other websites. This information is not intended to replace advice given to you by your health care provider. Make sure you discuss any questions you have with your health care provider. Document Released: 04/24/2010 Document Revised: 02/23/2017 Document Reviewed: 11/12/2015 [employer] Interactive Patient Education ? 2019 [employer]. Smoking Hazards Smoking cigarettes is extremely bad for your health. Tobacco smoke has over 200 known poisons in it. It contains the poisonous gases nitrogen oxide and carbon monoxide. There are over 60 chemicals in tobacco smoke that cause cancer. Some of the chemicals found in cigarette smoke include: ??? Cyanide. ? Benzene. ? Formaldehyde. ? Methanol (wood alcohol). ? Acetylene (fuel used in welding torches). ? Ammonia. ? Even smoking lightly shortens your life expectancy by several years. You can greatly reduce the risk of medical problems for you and your family by stopping now. Smoking is the most preventable cause of and disease in our society. Within days of quitting smoking, your circulation improves, you decrease the risk of having a heart attack, and your lung capacity improves. There may be some increased phlegm in the first few days after quitting, and it may take months for your lungs to clear up completely. Quitting for 10 years reduces your risk of developing lung cancer to almost that of a nonsmoker. WHAT ARE THE RISKS OF SMOKING? Cigarette smokers have an increased risk of many serious medical problems, including: ??? Lung cancer. ? Lung disease (such as pneumonia, bronchitis, and emphysema). ? Heart attack and chest pain due to the heart not getting enough oxygen (angina). ? Heart disease and peripheral blood vessel disease. ? Hypertension. ? Stroke. ? Oral cancer (cancer of the lip, mouth, or voice box). ? Bladder cancer. ? Pancreatic cancer. ? Cervical cancer. ? complications, including premature . ? Stillbirths and smaller babies, defects, and genetic damage to sperm. ? Early menopause. ? Lower estrogen level for women. ? Infertility. ? Facial wrinkles. ? Blindness. ? Increased risk of broken bones (fractures). ? Senile dementia. ? Stomach ulcers and internal bleeding. ? Delayed wound healing and increased risk of complications during surgery. Because of secondhand smoke exposure, children of smokers have an increased risk of the following: ??? Sudden infant syndrome (SIDS). ? Respiratory infections. ? Lung cancer. ? Heart disease. ? Ear infections. ? WHY IS SMOKING ADDICTIVE? Nicotine is the chemical agent in tobacco that is capable of causing addiction or dependence. When you smoke and inhale, nicotine is absorbed rapidly into the bloodstream through your lungs. Both inhaled and noninhaled nicotine may be addictive. WHAT ARE THE BENEFITS OF QUITTING? There are many health benefits to quitting smoking. Some are: ??? The likelihood of developing cancer and heart disease decreases. Health improvements are seen almost immediately. ? Blood pressure, pulse rate, and breathing patterns start returning to normal soon after quitting. ? People who quit may see an improvement in their overall quality of life. ? HOW DO YOU QUIT SMOKING? Smoking is an addiction with both physical and psychological effects, and longtime habits can be hard to change. Your health care provider can recommend: ??? Programs and community resources, which may include group support, education, or therapy. ??? Replacement products, such as patches, gum, and nasal sprays. Use these products only as directed. Do not replace cigarette smoking with electronic cigarettes (commonly called e-cigarettes). The safety of e-cigarettes is unknown, and some may contain harmful chemicals. FOR MORE INFORMATION ??? [place] [employer]: www.lung.org ??? [place] [employer]: www.cancer.org This information is not intended to replace advice given to you by your health care provider. Make sure you discuss any questions you have with your health care provider. Document Released: 08/05/2005 Document Revised: 10/19/2016 Document Reviewed: 12/18/2013 [employer] Interactive Patient Education ? 2017 [employer] Inc. Preventing Constipation After Surgery Constipation is a common problem after surgery. Many things can make constipation more likely after a surgery, including: ??? Certain medicines, especially numbing medicines (anesthetics) and very strong pain medicines called opioids. ??? Feeling stressed because of the surgery. ??? Eating different foods than normal. ??? Being less active. Symptoms of constipation include: ??? Having fewer than three bowel movements a week. ??? Straining to have a bowel movement. ??? Having hard, dry, or zhtlkd-[id number] stools. ??? Feeling full or bloated. ??? Having pain in the lower abdomen. ??? Not feeling relief after having a bowel movement. You can take steps to help prevent constipation after surgery. Follow these instructions at home: Eating and drinking ??? Eat foods that have a lot of fiber in them. These include fresh fruits and vegetables, whole grains, and beans. ??? Limit foods that are high in fat and processed sugars, such as fried and sweet foods. These include portuguese fries, hamburgers, cookies, and candy. ??? Take a fiber supplement as told by your health care provider. If you are not taking a fiber supplement and you think you are not getting enough fiber from foods, talk to your health care provider about adding a fiber supplement to your diet. ??? Drink enough fluid to keep your urine pale yellow. ??? Drink clear fluids, especially water. Avoid drinking alcohol, caffeine, and soda. These can make constipation worse. Activity ??? After surgery, return to your normal activities slowly, or when your health care provider says it is okay. ??? Start walking as soon as you can. Try to go a little farther each day. ??? Once your health care provider approves, do some sort of regular exercise. This helps prevent constipation. Bowel movements ??? Go to the restroom when you have the urge to go. Do not hold it in. ??? Try drinking something hot to get a bowel movement started. ??? Keep track of how often you use the restroom. Medicine ??? Take rjhh-ice-svpgkqx and prescription medicines only as told by your health care provider. ??? Talk to your health care provider about medicines that may help prevent constipation, particularly if you have a history of constipation. Your health care provider may suggest a stool softener, laxative, or fiber supplement. ??? Do not take any medicines without talking to your health care provider first. Contact a health care provider if: ??? You used stool softeners or laxatives and still have not had a bowel movement within 24?48 hours after using them. ??? You have not had a bowel movement in 3 days. ??? You have a fever. Get help right away if: ??? Your constipation lasts for more than 4 days or gets worse. ??? You have bright red blood in your stool. ??? You have pain in the abdomen or rectum. ??? You have very bad cramping. ??? You have thin, pencil-like stools. ??? You have unexplained weight loss. Summary ??? Constipation is a common problem after surgery. Many things can make constipation more likely after a surgery, including certain medicines, eating different foods than normal, and being less active. ??? Symptoms of constipation include having fewer than three bowel movements a week, straining to have a bowel movement, pain in the lower abdomen, and feeling full or bloated. ??? A diet rich in high-fiber foods, fluids, physical activity, and medicines, such as stool softeners and laxatives, can help prevent constipation. This information is not intended to replace advice given to you by your health care provider. Make sure you discuss any questions you have with your health care provider. Document Released: 10/23/2013 Document Revised: 09/27/2017 Document Reviewed: 09/27/2017 [employer] Interactive Patient Education ? 2019 [employer] Inc. Incentive Spirometer An incentive spirometer is a tool that measures how well you are filling your lungs with each breath. This tool can help keep your lungs clear and active. Taking long, deep breaths may help reverse or decrease the chance of developing breathing (pulmonary) problems, especially infection, following: ??? Surgery of the chest or abdomen. ??? Surgery if you have a history of smoking or a lung problem. ??? A long period of time when you are unable to move or be active. If the spirometer includes an indicator to show your best effort, your health care provider or respiratory therapist will help you set a goal. Keep a log of your progress if directed by your health care provider. What are the risks? Breathing too quickly may cause dizziness or cause you to pass out. Take your time so you do not get dizzy or lightheaded. ??? If you are in pain, you may need to take or ask for pain medicine before doing incentive spirometry. It is harder to take a deep breath if you are having pain. How to use your incentive spirometer 1. Sit on the edge of your bed if possible, or sit up as far as you can in bed or on a chair. 2. Hold the incentive spirometer in an upright position. 3. Breathe out normally. 4. Place the mouthpiece in your mouth and seal your lips tightly around it. 5. Breathe in slowly and as deeply as possible, raising the piston or the ball toward the top of the column. 6. Hold your breath for 3?5 seconds or for as long as possible. Allow the piston or ball to fall to the bottom of the column. 7. Remove the mouthpiece from your mouth and breathe out normally. 8. The spirometer may include an indicator to show your best effort. Use the indicator as a goal to work toward during each repetition. 9. Rest for a few seconds and repeat this at least 10 times, every 1?2 hours when you are awake. Take your time and take a few normal breaths between deep breaths. Breathing too quickly may cause dizziness or cause you to pass out. Take your time so you do not get dizzy or lightheaded. 10. After each set of 10 deep breaths, practice coughing to be sure your lungs are clear. If you had a surgical cut (incision) made during surgery, support your incision when coughing by placing a pillow or rolled-up towel firmly against it. Once you are able to get out of bed, walk around indoors and cough well. You may stop using the incentive spirometer when instructed by your health care provider. Contact a health care provider if: ??? You are having difficulty using the spirometer. ??? You have trouble using the spirometer as often as instructed. ??? Your pain medicine is not giving enough relief while using the spirometer. ??? You have a fever. ??? You develop shortness of breath. Get help right away if: ??? You develop a cough with bloody sputum. ??? You develop worsening pain, redness, or discharge at or near the incision site. This information is not intended to replace advice given to you by your health care provider. Make sure you discuss any questions you have with your health care provider. Document Released: 11/08/2007 Document Revised: 03/22/2017 Document Reviewed: 02/04/2015 [employer] Interactive Patient Education ? 2018 [employer] Inc. How to Take Your Blood Pressure You can take your blood pressure at home with a machine. You may need to check your blood pressure at home: ??? To check if you have high blood pressure (hypertension). ??? To check your blood pressure over time. ??? To make sure your blood pressure medicine is working. Supplies needed: You will need a blood pressure machine, or monitor. You can buy one at a [employer] or online. When choosing one: ??? Choose one with an arm cuff. ??? Choose one that wraps around your upper arm. Only one finger should fit between your arm and the cuff. ??? Do not choose one that measures your blood pressure from your wrist or finger. Your doctor can suggest a monitor. How to prepare Avoid these things for 30 minutes before checking your blood pressure: ??? Drinking caffeine. ??? Drinking alcohol. ??? Eating. ??? Smoking. ??? Exercising. Five minutes before checking your blood pressure: ??? Pee. ??? Sit in a dining chair. Avoid sitting in a soft couch or armchair. ??? Be quiet. Do not talk. How to take your blood pressure Follow the instructions that came with your machine. If you have a digital blood pressure monitor, these may be the instructions: 1. Sit up straight. 2. Place your feet on the floor. Do not cross your ankles or legs. 3. Rest your left arm at the level of your heart. You may rest it on a table, desk, or chair. 4. Pull up your shirt sleeve. 5. Wrap the blood pressure cuff around the upper part of your left arm. The cuff should be 1 inch (2.5 cm) above your elbow. It is best to wrap the cuff around bare skin. 6. Fit the cuff snugly around your arm. You should be able to place only one finger between the cuff and your arm. 7. Put the cord inside the groove of your elbow. 8. Press the power button. 9. Sit quietly while the cuff fills with air and loses air. 10. Write down the numbers on the screen. 11. Wait 2?3 minutes and then repeat steps 1?10. What do the numbers mean? Two numbers make up your blood pressure. The first number is called systolic pressure. The second is called diastolic pressure. An example of a blood pressure reading is 120 over 80 (or 120/80). If you are an adult and do not have a medical condition, use this guide to find out if your blood pressure is normal: Normal ??? First number: below 120. ??? Second number: below 80. Elevated ??? First number: 120?129. ??? Second number: below 80. Hypertension stage 1 ??? First number: 130?139. ??? Second number: 80?89. Hypertension stage 2 ??? First number: 140 or above. ??? Second number: 90 or above. Your blood pressure is above normal even if only the top or bottom number is above normal. Follow these instructions at home: ??? Check your blood pressure as often as your doctor tells you to. ??? Take your monitor to your next doctor's appointment. Your doctor will: ? Make sure you are using it correctly. ? Make sure it is working right. ??? Make sure you understand what your blood pressure numbers should be. ??? Tell your doctor if your medicines are causing side effects. Contact a doctor if: ??? Your blood pressure keeps being high. Get help right away if: ??? Your first blood pressure number is higher than 180. ??? Your second blood pressure number is higher than 120. This information is not intended to replace advice given to you by your health care provider. Make sure you discuss any questions you have with your health care provider. Document Released: 06/10/2009 Document Revised: 05/26/2017 Document Reviewed: 12/04/2016 [email or web address] Interactive Patient Education ? 2019 [employer] How to Take a Pulse Your pulse is the increase in pressure inside the blood vessels that carry blood from your heart to the rest of your body (arteries). Every time your heart beats, you can feel your pulse in an artery near the surface of your skin. You can easily feel your pulse in the artery in your wrist (radial artery) and in the artery in your neck (carotid artery). Taking your pulse can tell you how fast your heart is beating and whether it has a normal rhythm. You can also tell whether your heart is beating strongly or weakly. What you need to know about pulse rates Your pulse is the same as your heart rate. Both are measured in beats per minute (bpm). A normal resting heart rate varies depending on a person's age. ??? Infants under 1 year of age: Normal heart rate of 100?160 bpm. ??? Children 1?2 years of age: Normal heart rate of 90?150 bpm. ??? Children 2?5 years of age: Normal heart rate of 80?140 bpm. ??? Children 6?12 years of age: Normal heart rate of 70?120 bpm. ??? Everyone over 12 years of age: Normal heart rate of 60?100 bpm. There can be a lot of variation in your pulse. It can be different depending on the time of day or the amount of exercise that you get. It changes with your fitness level. Many things can change the speed and regularity of your pulse. These include: ??? Exercise. ??? Fever. ??? Stress. ??? Heart problems. ??? Poor circulation. ??? Medicines. How to take your pulse To take your pulse, all you need is a digital stopwatch or a clock or watch that has a second hand. The best time to measure your resting pulse is in the morning before you start moving around. Take it as soon as you wake up or after resting for about 10 minutes. There are no firm rules about how often to check your pulse. In general, it is a good idea to check your pulse at least once a month. Measuring your pulse is a good way to check your heart health. Checking your pulse before and after exercise can tell you if you are getting the right amount of exercise. This is called finding your target heart rate. Your target heart rate depends on your age, fitness, and health. Ask your health care provider what would be a safe target heart rate for you during exercise. Radial Pulse To check the pulse in your radial artery: 1. Turn one hand palm-up and relax your arm. 2. Place the first two fingers of your other hand gently over your wrist, just below the base of your thumb. 3. Place your fingertips just inside the bone that runs along the outside of your arm. 4. Slowly increase pressure until you feel a pulsing beneath your fingers. You may need to move your fingers slightly. 5. Do not press too hard. Too much pressure may cut off blood supply. 6. Count how many pulse beats you feel in 1 minute. Or, count how many pulse beats you feel in 30 seconds and double that number. 7. Pay attention to the rhythm of the pulse. It should be steady and even. Carotid Pulse To check the pulse in your carotid artery: 1. Place two fingers just to one side of your Melo?s apple so that you feel a pulsing beneath your fingers. 2. Do not press too hard. Too much pressure may cut off blood supply and can make you dizzy. 3. Count how many pulse beats you feel in 1 minute. Or, count how many pulse beats you feel in 30 seconds and double that number. 4. Pay attention to the rhythm of the pulse. It should be steady and even. Contact a health care provider if: ??? Your pulse is too slow or too fast. ??? Your pulse is weak or hard to find. ??? You have skipped beats or extra beats. ??? Your pulse has an irregular rhythm. ??? You have an abnormal pulse along with dizziness, fatigue, or shortness of breath. This information is not intended to replace advice given to you by your health care provider. Make sure you discuss any questions you have with your health care provider. Document Released: 01/02/2004 Document Revised: 01/15/2017 Document Reviewed: 12/01/2016 [employer] Interactive Patient Education ? 2019 [employer] Inc[employer] Fluid Restriction With some health conditions, you must restrict your fluid intake. This means that you need to limit the amount of fluid that you drink each day (fluid restriction). When you have a fluid restriction, you must carefully measure and keep track of the amount of fluid that you drink. Your health care provider will identify the specific amount of fluid you are allowed each day (fluid allowance). This amount may depend on several things, such as: ??? How well your kidneys function. ??? How much fluid you are keeping (retaining) in your body tissues. ??? Your blood pressure. ??? Your heart function. ??? Your blood sodium level. What is my plan? Your health care provider recommends that you limit your fluid intake to per day. What counts toward my fluid intake? Your fluid intake includes all liquids that you drink, as well as any foods that become liquid at room temperature. The following are examples of some fluids that you will have to restrict: ??? Tea, coffee, soda, lemonade, milk, water, juice, sports drinks, and nutritional supplement beverages. ??? Alcoholic beverages. ??? Cream. ??? Gravy. ??? Ice cubes. ??? Soup and broth. The following are examples of foods that become liquid at room temperature. These foods will also count toward your fluid intake. ??? Ice cream and ice milk. ??? Frozen yogurt and sherbet. ??? Frozen ice pops. ??? Flavored gelatin. How do I keep track of my fluid intake? Each morning, fill a jug with the amount of water that is equal to your daily fluid allowance. You can use this water as a guideline for fluid allowance. Each time you take in any form of fluid (including ice cubes and foods that become liquid at room temperature), pour an equal amount of water out of the container. This helps you to see how much fluid you are taking in. It also helps you to see how much more fluid you can take in during the rest of the day. The following conversions may also be helpful in measuring your fluid intake: ??? 1 cup equals 8 oz (240 mL). ? cup equals 6 oz (180 mL). ? cup equals 5? oz (160 mL). ? cup equals 4 oz (120 mL). ? cup equals 2? oz (80 mL). ? cup equals 2 oz (60 mL). ??? 2 Tbsp equals 1 oz (30 mL). What are tips for following this plan? General instructions ??? Make sure that you stay within your recommended fluid allowance each day. Always measure and keep track of your fluids (including ice cubes and foods that become liquid at room temperature). ??? Use small cups and glasses and learn to sip fluids slowly. ??? Try frozen fruits between meals, such as grapes or strawberries. These can satisfy thirst without adding to your fluid intake. ??? Swallow your pills along with meals or soft foods such as applesauce or mashed potatoes, instead of with liquids. Doing this helps you to save your fluid allowance for something that you enjoy. Weigh yourself each day Weigh yourself every day. Keeping track of your daily weight can help you and your health care provider to notice as soon as possible if you are retaining too much fluid in your body. ??? Follow this sequence every mornin. Urinate. 2. Weigh yourself. 3. Eat breakfast. ??? Wear the same amount of clothing each time you weigh yourself. ??? Write down your daily weight. Give this weight record to your health care provider. If your weight is going up, you may be retaining too much fluid. Every 1 lb (0.45 kg) of body weight that you gain is a sign that your body is retaining 2 cups (480 mL) of fluid. Manage your thirst ??? Add lemon juice or a slice of fresh lemon to water or ice. Doing this helps to satisfy your thirst. ??? Freeze fruit juice or water in an ice cube tray. Use this as part of your fluid allowance. These cubes are useful for quenching your thirst. Before you freeze the juice or water, measure how much liquid you use to fill a cube section of the ice tray. Subtract this amount from your day's allowance each time you consume a frozen cube. ??? Avoid salty (high-sodium) foods. These foods make you thirsty and make it more difficult to stay within your daily fluid allowance. ??? Keep the temperature in your home at a cooler level. ??? Keep the air in your home as humid as possible. Dry air increases thirst. ??? Avoid being out in the hot sun, which can cause you to sweat and become thirsty. ??? To help avoid dry mouth, brush your teeth often or rinse out your mouth with mouthwash. Lemon wedges, hard sour candies, chewing gum, or breath spray may also help to moisten your mouth. What are some signs that I may be taking in too much fluid? You may be taking in too much fluid if: ??? Your weight increases. Contact your health care provider if you gain weight rapidly. ??? Your face, hands, legs, feet, and abdomen start to swell. ??? You have trouble breathing. Summary ??? With some health conditions, you must limit (restrict) your fluid intake. This means that you need to limit the amount of fluid you drink each day (fluid restriction). Your health care provider will identify the specific amount of fluid that you are allowed each day. ??? When you have a fluid restriction, you must carefully measure and keep track of the amount of fluid that you drink. ??? Your fluid intake includes all liquids that you drink, as well as any foods that become liquid at room temperature (such as ice cream and gelatin). ??? You may be taking in too much fluid if your weight increases, your body starts to swell, or you have trouble breathing. This information is not intended to replace advice given to you by your health care provider. Make sure you discuss any questions you have with your health care provider. Document Released: 04/24/2008 Document Revised: 03/02/2018 Document Reviewed: 03/02/2018 [employer] Interactive Patient Education ? 2019 [employer] Fall Prevention in the Home Introduction Falls can cause injuries. They can happen to people of all ages. There are many things you can do to make your home safe and to help prevent falls. What can I do on the outside of my home? Regularly fix the edges of walkways and driveways and fix any cracks. ??? Remove anything that might make you trip as you walk through a door, such as a raised step or threshold. ??? Trim any bushes or trees on the path to your home. ??? Use bright outdoor lighting. ??? Clear any walking paths of anything that might make someone trip, such as rocks or tools. ??? Regularly check to see if handrails are loose or broken. Make sure that both sides of any steps have handrails. ??? Any raised decks and porches should have guardrails on the edges. ??? Have any leaves, snow, or ice cleared regularly. ??? Use sand or salt on walking paths during winter. ??? Clean up any spills in your garage right away. This includes oil or grease spills. What can I do in the bathroom? Use night lights. ??? Install grab bars by the toilet and in the tub and shower. Do not use towel bars as grab bars. ??? Use non-skid mats or decals in the tub or shower. ??? If you need to sit down in the shower, use a plastic, non-slip stool. ??? Keep the floor dry. Clean up any water that spills on the floor as soon as it happens. ??? Remove soap buildup in the tub or shower regularly. ??? Attach bath mats securely with double-sided non-slip rug tape. ??? Do nothave throw rugs and other things on the floor that can make you trip. What can I do in the bedroom? Use night lights. ??? Make sure that you have a light by your bed that is easy to reach. ??? Do notuse any sheets or blankets that are too big for your bed. They should not hang down onto the floor. ??? Have a firm chair that has side arms. You can use this for support while you get dressed. ??? Do nothave throw rugs and other things on the floor that can make you trip. What can I do in the kitchen? Clean up any spills right away. ??? Avoid walking on wet floors. ??? Keep items that you use a lot in [id number]-kqsij places. ??? If you need to reach something above you, use a strong step stool that has a grab bar. ??? Keep electrical cords out of the way. ??? Do notuse floor stateless or wax that makes floors slippery. If you must use wax, use non-skid floor wax. ??? Do nothave throw rugs and other things on the floor that can make you trip. What can I do with my stairs? Do notleave any items on the stairs. ??? Make sure that there are handrails on both sides of the stairs and use them. Fix handrails that are broken or loose. Make sure that handrails are as long as the stairways. ??? Check any carpeting to make sure that it is firmly attached to the stairs. Fix any carpet that is loose or worn. ??? Avoid having throw rugs at the top or bottom of the stairs. If you do have throw rugs, attach them to the floor with carpet tape. ??? Make sure that you have a light switch at the top of the stairs and the bottom of the stairs. If you do not have them, ask someone to add them for you. What else can I do to help prevent falls? Wear shoes that:? Do nothave high heels. ? Have rubber bottoms. ? Are comfortable and fit you well. ? Are closed at the toe. Do not wear sandals. ??? If you use a stepladder:? Make sure that it is fully opened. Do not climb a closed stepladder. ? Make sure that both sides of the stepladder are locked into place. ? Ask someone to hold it for you, if possible. ??? Clearly cathie and make sure that you can see:? Any grab bars or handrails. ? First and last steps. ? Where the edge of each step is. ??? Use tools that help you move around (mobility aids) if they are needed. These include:? Canes. ? Walkers. ? Scooters. ? Crutches. ??? Turn on the lights when you go into a dark area. Replace any light bulbs as soon as they burn out. ??? Set up your furniture so you have a clear path. Avoid moving your furniture around. ??? If any of your floors are uneven, fix them. ??? If there are any pets around you, be aware of where they are. ??? Review your medicines with your doctor. Some medicines can make you feel dizzy. This can increase your chance of falling. Ask your doctor what other things that you can do to help prevent falls. This information is not intended to replace advice given to you by your health care provider. Make sure you discuss any questions you have with your health care provider. Document Released: 04/24/2010 Document Revised: 12/03/2016 Document Reviewed: 08/02/2015 ? 2017 [employer] Daily Weight Record It is important to weigh yourself daily. Keep this daily weight chart near your scale. Weigh yourself each morning at the same time. Weigh yourself without shoes, and wear the same amount of clothing each day. Compare today's weight to yesterday's weight. Bring this form with you to your follow-up appointments. Call your health care provider if you have concerns about your weight, including rapid weight gain or rapid weight loss. Date: Weight: Date: Weight: Date: Weight: Date: Weight: Date: Weight: Date: Weight: Date: Weight: Date: Weight: Date: Weight: Date: Weight: Date: Weight: Date: Weight: Date: Weight: Date: Weight: Date: Weight: Date: Weight: Date: Weight: Date: Weight: Date: Weight: Date: Weight: Date: Weight: Date: Weight: Date: Weight: Date: Weight: Date: Weight: Date: Weight: Date: Weight: Date: Weight: Date: Weight: Date: Weight: Date: Weight: Date: Weight: Date: Weight: Date: Weight: Date: Weight: Date: Weight: Date: Weight: Date: Weight: Date: Weight: Date: Weight: Date: Weight: Date: Weight: Date: Weight: Date: Weight: Date: Weight: Date: Weight: Date: Weight: Date: Weight: Date: Weight: Date: Weight: This information is not intended to replace advice given to you by your health care provider. Make sure you discuss any questions you have with your health care provider. Document Released: 09/09/2007 Document Revised: 06/11/2017 Document Reviewed: 01/25/2015 [employer] Interactive Patient Education ? 2019 [employer] Diabetes Mellitus and Sick Day Management Blood sugar (glucose) can be difficult to control when you are sick. Common illnesses that can cause problems for people with diabetes (diabetes mellitus) include colds, fever, flu (influenza), nausea, vomiting, and diarrhea. These illnesses can cause stress and loss of body fluids (dehydration), and those issues can cause blood glucose levels to increase. Because of this, it is very important to take your insulin and diabetes medicines and eat some form of carbohydrate when you are sick. You should make a plan for days when you are sick (sick day plan) as part of your diabetes management plan. You and your health care provider should make this plan in advance. The following guidelines are intended to help you manage an illness that lasts for about 24 hours or less. Your health care provider may also give you more specific instructions. What do I need to do to manage my blood glucose? Check your blood glucose every 2?4 hours, or as often as told by your health care provider. ??? Know your sick day treatment goals. Your target blood glucose levels may be different when you are sick. ??? If you use insulin, take your usual dose. ? If your blood glucose continues to be too high, you may need to take an additional insulin dose as told by your health care provider. ??? If you use oral diabetes medicine, you may need to stop taking it if you are not able to eat or drink normally. Ask your health care provider about whether you need to stop taking these medicines while you are sick. ??? If you use injectable hormone medicines other than insulin to control your diabetes, ask your health care provider about whether you need to stop taking these medicines while you are sick. What else can I do to manage my diabetes when I am sick? Check your ketones ??? If you have type 1 diabetes, check your urine ketones every 4 hours. ??? If you have type 2 diabetes, check your urine ketones as often as told by your health care provider. Drink fluids ??? Drink enough fluid to keep your urine clear or pale yellow. This is especially important if you have a fever, vomiting, or diarrhea. Those symptoms can lead to dehydration. ??? Follow any instructions from your health care provider about beverages to avoid. ? Do not drink alcohol, caffeine, or drinks that contain a lot of sugar. Take medicines as directed ??? Dozh-trtq-fhi-counter and prescription medicines only as told by your health care provider. ??? Check medicine labels for added sugars. Some medicines may contain sugar or types of sugars that can raise your blood glucose level. What foods can I eat when I am sick? You need to eat some form of carbohydrates when you are sick. You should eat 45?50 grams (45?50 g) of carbohydrates every 3?4 hours until you feel better. All of the food choices below contain about 15 g of carbohydrates. Plan ahead and keep some of these foods around so you have them if you get sick. ??? 4?6 oz (120?177 mL) carbonated beverage that contains sugar, such as regular (not diet) soda. You may be able to drink carbonated beverages more easily if you open the beverage and let it sit at room temperature for a few minutes before drinking. ? of a twin frozen ice pop. ??? 4 oz (120 g) regular gelatin. ??? 4 oz (120 mL) fruit juice. ??? 4 oz (120 g) ice cream or frozen yogurt. ??? 2 oz (60 g) sherbet. ??? 8 oz (240 mL) clear broth or soup. ??? 4 oz (120 g) regular custard. ??? 4 oz (120 g) regular pudding. ??? 8 oz (240 g) plain yogurt. ??? 1 slice bread or toast. ??? 6 saltine crackers. ??? 5 vanilla wafers. Questions to ask your health care provider Consider asking the following questions so you know what to do on days when you are sick: ??? Should I adjust my diabetes medicines? How often do I need to check my blood glucose? What supplies do I need to manage my diabetes at home when I am sick? What number can I call if I have questions? What foods and drinks should I avoid? Contact a health care provider if: ??? You develop symptoms of diabetic ketoacidosis, such as: ? Fatigue. ? Weight loss. ? Excessive thirst. ? Light-headedness. ? Fruity or sweet-smelling breath. ? Excessive urination. ? Vision changes. ? Confusion or irritability. ? Nausea. ? Vomiting. ? Rapid breathing. ? Pain in the abdomen. ? Feeling flushed. ??? You are unable to drink fluids without vomiting. ??? You have any of the following for more than 6 hours: ? Nausea. ? Vomiting. ? Diarrhea. ??? Your blood glucose is at or above 240 mg/dL (13.3 mmol/L), even after you take an additional insulin dose. ??? You have a change in how you think, feel, or act (mental status). ??? You develop another serious illness. ??? You have been sick or have had a fever for 2 days or longer and you are not getting better. Get help right away if: ??? Your blood glucose is lower than 54 mg/dL (3.0 mmol/L). ??? You have difficulty breathing. ??? You have moderate or high ketone levels in your urine. ??? You used emergency glucagon to treat low blood glucose. Summary ??? Blood sugar (glucose) can be difficult to control when you are sick. Common illnesses that can cause problems for people with diabetes (diabetes mellitus) include colds, fever, flu (influenza), nausea, vomiting, and diarrhea. ??? Illnesses can cause stress and loss of body fluids (dehydration), and those issues can cause blood glucose levels to increase. ??? Make a plan for days when you are sick (sick day plan) as part of your diabetes management plan. You and your health care provider should make this plan in advance. ??? It is very important to take your insulin and diabetes medicines and to eat some form of carbohydrate when you are sick. ??? Contact your health care provider if have problems managing your blood glucose levels when you are sick, or if you have been sick or had a fever for 2 days or longer and are not getting better. This information is not intended to replace advice given to you by your health care provider. Make sure you discuss any questions you have with your health care provider. Document Released: 06/30/2004 Document Revised: 03/26/2017 Document Reviewed: 03/26/2017 [employer] Interactive Patient Education ? 2019 [employer]. Atrial Fibrillation Atrial fibrillation is a type of heartbeat that is irregular or fast (rapid). If you have this condition, your heart keeps quivering in a weird (chaotic) way. This condition can make it so your heart cannot pump blood normally. Having this condition gives a person more risk for stroke, heart failure, and other heart problems. There are different types of atrial fibrillation. Talk with your doctor to learn about the type that you have. Follow these instructions at home: ??? Take rhdm-mwl-escwnkn and prescription medicines only as told by your doctor. ??? If your doctor prescribed a blood-thinning medicine, take it exactly as told. Taking too much of it can cause bleeding. If you do not take enough of it, you will not have the protection that you need against stroke and other problems. ??? Do not use any tobacco products. These include cigarettes, chewing tobacco, and e-cigarettes. If you need help quitting, ask your doctor. ??? If you have apnea (obstructive sleep apnea), manage it as told by your doctor. ??? Do not drink alcohol. ??? Do not drink beverages that have caffeine. These include coffee, soda, and tea. ??? Maintain a healthy weight. Do not use diet pills unless your doctor says they are safe for you. Diet pills may make heart problems worse. ??? Follow diet instructions as told by your doctor. ??? Exercise regularly as told by your doctor. ??? Keep all follow-up visits as told by your doctor. This is important. Contact a doctor if: ??? You notice a change in the speed, rhythm, or strength of your heartbeat. ??? You are taking a blood-thinning medicine and you notice more bruising. ??? You get tired more easily when you move or exercise. Get help right away if: ??? You have pain in your chest or your belly (abdomen). ??? You have sweating or weakness. ??? You feel sick to your stomach (nauseous). ??? You notice blood in your throw up (vomit), poop (stool), or pee (urine). ??? You are short of breath. ??? You suddenly have swollen feet and ankles. ??? You feel dizzy. ??? Your suddenly get weak or numb in your face, arms, or legs, especially if it happens on one side of your body. ??? You have trouble talking, trouble understanding, or both. ??? Your face or your eyelid droops on one side. These symptoms may be an emergency. Do not wait to see if the symptoms will go away. Get medical help right away. Call your local emergency services (911 in the [place] Do not drive yourself to the hospital. This information is not intended to replace advice given to you by your health care provider. Make sure you discuss any questions you have with your health care provider. Document Released: 04/06/2009 Document Revised: 12/03/2016 Document Reviewed: 10/23/2015 [email or web address] Interactive Patient Education ? 2019 [employer] Aortic Valve Replacement, Care After Refer to this sheet in the next few weeks. These instructions provide you with information about caring for yourself after your procedure. Your health care provider may also give you more specific instructions. Your treatment has been planned according to current medical practices, but problems sometimes occur. Call your health care provider if you have any problems or questions after your procedure. What can I expect after the procedure? After the procedure, it is common to have: ??? Pain around your incision area. ??? A small amount of blood or clear fluid coming from your incision. Follow these instructions at home: Eating and drinking ??? Follow instructions from your health care provider about eating or drinking restrictions. ? Limit alcohol intake to no more than 1 drink per day for non women and 2 drinks per day for men. One drink equals 12 oz of beer, 5 oz of wine, or 1? oz of hard liquor. ? Limit how much caffeine you drink. Caffeine can affect your heart's rate and rhythm. ??? Drink enough fluid to keep your urine clear or pale yellow. ??? Eat a heart-healthy diet. This should include plenty of fresh fruits and vegetables. If you eat meat, it should be lean cuts. Avoid foods that are: ? High in salt, saturated fat, or sugar. ? Canned or highly processed. ? Fried. Activity ??? Return to your normal activities as told by your health care provider. Ask your health care provider what activities are safe for you. ??? Exercise regularly once you have recovered, as told by your health care provider. ??? Avoid sitting for more than 2 hours at a time without moving. Get up and move around at least once every 1?2 hours. This helps to prevent blood clots in the legs. ??? Do not lift anything that is heavier than 10 lb (4.5 kg) until your health care provider approves. ??? Avoid pushing or pulling things with your arms until your health care provider approves. This includes pulling on handrails to help you climb stairs. Incision care ??? Follow instructions from your health care provider about how to take care of your incision. Make sure you: ? Wash your hands with soap and water before you change your bandage (dressing). If soap and water are not available, use hand sack filler. ? Change your dressing as told by your health care provider. ? Leave stitches (sutures), skin glue, or adhesive strips in place. These skin closures may need to stay in place for 2 weeks or longer. If adhesive strip edges start to loosen and curl up, you may trim the loose edges. Do not remove adhesive strips completely unless your health care provider tells you to do that. ??? Check your incision area every day for signs of infection. Check for: ? More redness, swelling, or pain. ? More fluid or blood. ? Warmth. ? Pus or a bad smell. Medicines ??? Take tbwk-voz-cebsadn and prescription medicines only as told by your health care provider. ??? If you were prescribed an antibiotic medicine, take it as told by your health care provider. Do not stop taking the antibiotic even if you start to feel better. Travel ??? Avoid airplane travel for as long as told by your health care provider. ??? When you travel, bring a list of your medicines and a record of your medical history with you. Carry your medicines with you. Driving ??? Ask your health care provider when it is safe for you to drive. Do not drive until your health care provider approves. ??? Do not drive or operate heavy machinery while taking prescription pain medicine. Lifestyle ??? Do not use any tobacco products, such as cigarettes, chewing tobacco, or e-cigarettes. If you need help quitting, ask your health care provider. ??? Resume sexual activity as told by your health care provider. Do not use medicines for erectile dysfunction unless your health care provider approves, if this applies. ??? Work with your health care provider to keep your blood pressure and cholesterol under control, and to manage any other heart conditions that you have. ??? Maintain a healthy weight. General instructions ??? Do not take baths, swim, or use a hot tub until your health care provider approves. ??? Do not strain to have a bowel movement. ??? Avoid crossing your legs while sitting down. ??? Check your temperature every day for a fever. A fever may be a sign of infection. ??? If you are a woman and you plan to become , talk with your health care provider before you become . ??? Wear compression stockings if your health care provider instructs you to do this. These stockings help to prevent blood clots and reduce swelling in your legs. ??? Tell all health care providers who care for you that you have an artificial (prosthetic) aortic valve. If you have or have had heart disease or endocarditis, tell all health care providers about these conditions as well. ??? Keep all follow-up visits as told by your health care provider. This is important. Contact a health care provider if: ??? You develop a skin rash. ??? You experience sudden, unexplained changes in your weight. ??? You have more redness, swelling, or pain around your incision. ??? You have more fluid or blood coming from your incision. ??? Your incision feels warm to the touch. ??? You have pus or a bad smell coming from your incision. ??? You have a fever. Get help right away if: ??? You develop chest pain that is different from the pain coming from your incision. ??? You develop shortness of breath or difficulty breathing. ??? You start to feel light-headed. These symptoms may represent a serious problem that is an emergency. Do not wait to see if the symptoms will go away. Get medical help right away. Call your local emergency services (911 in the [place] Do not drive yourself to the hospital. This information is not intended to replace advice given to you by your health care provider. Make sure you discuss any questions you have with your health care provider. Document Released: 01/14/2006 Document Revised: 10/28/2017 Document Reviewed: 05/31/2016 [employer] Interactive Patient Education ? 2019 [employer] Aortic Valve Replacement, Care After Refer to this sheet in the next few weeks. These instructions provide you with information about caring for yourself after your procedure. Your health care provider may also give you more specific instructions. Your treatment has been planned according to current medical practices, but problems sometimes occur. Call your health care provider if you have any problems or questions after your procedure. What can I expect after the procedure? After the procedure, it is common to have: ??? Pain around your incision area. ??? A small amount of blood or clear fluid coming from your incision. Follow these instructions at home: Eating and drinking ??? Follow instructions from your health care provider about eating or drinking restrictions. ? Limit alcohol intake to no more than 1 drink per day for non women and 2 drinks per day for men. One drink equals 12 oz of beer, 5 oz of wine, or 1? oz of hard liquor. ? Limit how much caffeine you drink. Caffeine can affect your heart's rate and rhythm. ??? Drink enough fluid to keep your urine clear or pale yellow. ??? Eat a heart-healthy diet. This should include plenty of fresh fruits and vegetables. If you eat meat, it should be lean cuts. Avoid foods that are: ? High in salt, saturated fat, or sugar. ? Canned or highly processed. ? Fried. Activity ??? Return to your normal activities as told by your health care provider. Ask your health care provider what activities are safe for you. ??? Exercise regularly once you have recovered, as told by your health care provider. ??? Avoid sitting for more than 2 hours at a time without moving. Get up and move around at least once every 1?2 hours. This helps to prevent blood clots in the legs. ??? Do not lift anything that is heavier than 10 lb (4.5 kg) until your health care provider approves. ??? Avoid pushing or pulling things with your arms until your health care provider approves. This includes pulling on handrails to help you climb stairs. Incision care ??? Follow instructions from your health care provider about how to take care of your incision. Make sure you: ? Wash your hands with soap and water before you change your bandage (dressing). If soap and water are not available, use hand sack filler. ? Change your dressing as told by your health care provider. ? Leave stitches (sutures), skin glue, or adhesive strips in place. These skin closures may need to stay in place for 2 weeks or longer. If adhesive strip edges start to loosen and curl up, you may trim the loose edges. Do not remove adhesive strips completely unless your health care provider tells you to do that. ??? Check your incision area every day for signs of infection. Check for: ? More redness, swelling, or pain. ? More fluid or blood. ? Warmth. ? Pus or a bad smell. Medicines ??? Take irjv-mdz-hqbckuq and prescription medicines only as told by your health care provider. ??? If you were prescribed an antibiotic medicine, take it as told by your health care provider. Do not stop taking the antibiotic even if you start to feel better. Travel ??? Avoid airplane travel for as long as told by your health care provider. ??? When you travel, bring a list of your medicines and a record of your medical history with you. Carry your medicines with you. Driving ??? Ask your health care provider when it is safe for you to drive. Do not drive until your health care provider approves. ??? Do not drive or operate heavy machinery while taking prescription pain medicine. Lifestyle ??? Do not use any tobacco products, such as cigarettes, chewing tobacco, or e-cigarettes. If you need help quitting, ask your health care provider. ??? Resume sexual activity as told by your health care provider. Do not use medicines for erectile dysfunction unless your health care provider approves, if this applies. ??? Work with your health care provider to keep your blood pressure and cholesterol under control, and to manage any other heart conditions that you have. ??? Maintain a healthy weight. General instructions ??? Do not take baths, swim, or use a hot tub until your health care provider approves. ??? Do not strain to have a bowel movement. ??? Avoid crossing your legs while sitting down. ??? Check your temperature every day for a fever. A fever may be a sign of infection. ??? If you are a woman and you plan to become , talk with your health care provider before you become . ??? Wear compression stockings if your health care provider instructs you to do this. These stockings help to prevent blood clots and reduce swelling in your legs. ??? Tell all health care providers who care for you that you have an artificial (prosthetic) aortic valve. If you have or have had heart disease or endocarditis, tell all health care providers about these conditions as well. ??? Keep all follow-up visits as told by your health care provider. This is important. Contact a health care provider if: ??? You develop a skin rash. ??? You experience sudden, unexplained changes in your weight. ??? You have more redness, swelling, or pain around your incision. ??? You have more fluid or blood coming from your incision. ??? Your incision feels warm to the touch. ??? You have pus or a bad smell coming from your incision. ??? You have a fever. Get help right away if: ??? You develop chest pain that is different from the pain coming from your incision. ??? You develop shortness of breath or difficulty breathing. ??? You start to feel light-headed. These symptoms may represent a serious problem that is an emergency. Do not wait to see if the symptoms will go away. Get medical help right away. Call your local emergency services (911 in the [place] Do not drive yourself to the hospital. This information is not intended to replace advice given to you by your health care provider. Make sure you discuss any questions you have with your health care provider. Document Released: 01/14/2006 Document Revised: 10/28/2017 Document Reviewed: 05/31/2016 [employer] Interactive Patient Education ? 2019 [employer] documented in this encounter Plan of Treatment Upcoming Encounters Date Type Department Care Team (Late st Contact Info) Description 04/12/2025 7:30 AM EDT Hospital Encounter [facility] Operating Room 1 [place] [address] Bill Graham MD [address] [place] [address] 04/12/2025 7:30 AM EDT Anesthesia Event [facility] Operating Room 1 [place] [address] Lucio Szymanski MD [address] [place], [place] [id number] 04/12/2025 7:30 AM EDT - 04/12/2025 8:55 AM EDT Surgery [facility] Operating Room 1 [place] [address] Bill Graham MD [address] [place] [address] (LAPAROSCOPIC PERITONEAL DIALYSIS CATHETER INSERTION) Scheduled Procedures Name Priority Associated Diagnoses Date/Ti me LAPAROSCOPY, WITH PERITONEAL DIALYSIS CATHETER INSERTION Chronic kidney disease, stage V (HCC) 04/12/2025 7:30 AM EDT documented as of this encounter Visit Diagnoses Not on filedocumented in this encounter Care Teams Animal Rides Manager Relationship Specialty Start Date End Date Félix Monroe, ACADEMIC GUIDANCE SPECIALIST [address] [place] [address] PCP - General Nurse Practitioner 08/25/22 documented as of this encounter
--- OUTSIDE RECORDS SUMMARY | 2025-04-11 11:00 | XMS_ITS | Encounter Summary ---
Author Organization [employer] ([place], [place], [place], [place]) Address [address] [address] Care Team Providers Care Top Lift Nailer Name Role Phone Félix Monroe APRN Primary Care Provider Encounter Details Date Type Department Care Team (Late st Contact Info) Description 07/21/2019 Transcribed Document [facility] [place] [address] [place] [address] ProviderMaria Esther MD [address] [place] [address] Social History Tobacco Use Types Packs/Day Years Used Date Smoking Tobacco: Never Assessed Comments Unknown Sex and Gender Information Value Date Recorded Sex Assigned at Not on file Legal Sex Female 6:53 PM CDT Gender Identity Not on file Sexual Orientation Not on file documented as of this encounter Miscellaneous Notes * Cerner Conversion Note - Historical ProviderMD - 07/21/2019 5:00 PM TEXTILE ENGINEER Chart Check - Review Order Profile Entered On: 07/21/2019 18:31 EST Performed On: 07/21/2019 17:00 EST by DAYSI PACHECO RN Chart Check All Active Orders Reviewed : Yes DAYSI PACHECO RN - 07/21/2019 18:31 EST documented in this encounter Plan of Treatment Upcoming Encounters Date Type Department Care Team (Late st Contact Info) Description 04/12/2025 7:30 AM EDT Hospital Encounter [facility] Operating Room [address] [place] [address] Bill Graham MD [address] [facility] [address] [place] [address] 04/12/2025 7:30 AM EDT Anesthesia Event [facility] Operating Room [address] [place] [address] Lucio Szymanski MD [address] [place] [address] 04/12/2025 7:30 AM EDT - 04/12/2025 8:[address] [facility] Operating Room [address] [place] [address] Bill Graham MD [address] [facility] [address] [place] [address] (LAPAROSCOPIC PERITONEAL DIALYSIS CATHETER INSERTION) Scheduled Procedures Name Priority Associated Diagnoses Date/Ti me LAPAROSCOPY, WITH PERITONEAL DIALYSIS CATHETER INSERTION Chronic kidney disease, stage V (HCC) 04/12/2025 7:30 AM EDT documented as of this encounter Visit Diagnoses Not on filedocumented in this encounter Care Teams Top Lift Nailer Relationship Specialty Start Date End Date Félix Monroe, SUPERVISOR WEAVING [address] [facility] [address] [place] [address] PCP - General Nurse Practitioner 08/25/22 documented as of this encounter
--- OUTSIDE RECORDS SUMMARY | 2025-04-11 11:00 | XMS_ITS | Encounter Summary ---
Author Organization [employer] ([place], [place], [place], [place]) Address [address] [place] [address] Care Team Providers Care Nuclear Medicine Technician Name Role Phone Félix Monroe APRN Primary Care Provider [phone] Encounter Details Date Type Department Care Team (Late st Contact Info) Description 09/02/[address] [facility] [place] Medicine [address] [place] [address] ProviderMaria Esther MD [address] [place] [address] Social History Tobacco Use Types Packs/Day Years Used Date Smoking Tobacco: Never Assessed Comments Unknown Sex and Gender Information Value Date Recorded Sex Assigned at Not on file Legal Sex Female 6:53 PM CDT Gender Identity Not on file Sexual Orientation Not on file documented as of this encounter Miscellaneous Notes * Cerner Conversion Note - Maria Esther ProviderMD - 09/02/2019 5:00 PM BENDING ROLL HAND Chart Check - Review Order Profile Entered On: 09/02/2019 7:27 EST Performed On: 09/02/2019 9:00 EST by GRECIA FOLEY RN Chart Check Powerplans Initiated/Discontinued as Appropriate : Yes All Active Orders Reviewed : Yes GRECIA FOLEY RN - 09/02/2019 7:27 EST documented in this encounter Plan of Treatment Upcoming Encounters Date Type Department Care Team (Late st Contact Info) Description 04/12/2025 7:30 AM EDT Hospital Encounter [facility] Operating Room 1 [place] [address] Bill Graham MD [address] [facility] [address] [place] [address] 04/12/2025 7:30 AM EDT Anesthesia Event [facility] Operating Room 1 [place] [address] Lucio Szymanski MD [address] [place] [address] 04/12/2025 7:30 AM EDT - 04/12/2025 8:55 AM EDT Surgery [facility] Operating Room [address] [place] [address] Bill Graham MD [address] [facility] [address] [place] [address] (LAPAROSCOPIC PERITONEAL DIALYSIS CATHETER INSERTION) Scheduled Procedures Name Priority Associated Diagnoses Date/Ti me LAPAROSCOPY, WITH PERITONEAL DIALYSIS CATHETER INSERTION Chronic kidney disease, stage V (HCC) 04/12/2025 7:30 AM EDT documented as of this encounter Visit Diagnoses Not on filedocumented in this encounter Care Teams Nuclear Medicine Technician Relationship Specialty Start Date End Date Félix Monroe, RURAL ROUTE MAIL CARRIER [address] [facility] [address] [place] [address] PCP - General Nurse Practitioner 08/25/22 documented as of this encounter
--- OUTSIDE RECORDS SUMMARY | 2025-04-11 11:00 | XMS_ITS | Encounter Summary ---
Author Organization [employer] ([place], [place], [place], [place]) Address [address] [place] [address] Care Team Providers Care Appointment Manager Name Role Phone Félix Monroe APRN Primary Care Provider [phone] Encounter Details Date Type Department Care Team (Late st Contact Info) Description 07/21/2019 Transcribed Document [facility] Radiology 1 [place] [address] Emanuel Pratt MD [address] [place] [address] Social History Tobacco Use Types Packs/Day Years Used Date Smoking Tobacco: Never Assessed Comments Unknown Sex and Gender Information Value Date Recorded Sex Assigned at Not on file Legal Sex Female 6:53 PM CDT Gender Identity Not on file Sexual Orientation Not on file documented as of this encounter Miscellaneous Notes * Cerner Conversion Note - Emanuel Pratt MD - 07/21/2019 7:54 AM EST Patient: CORRIE SMITH Age: 49 years Sex: Female : 1970 Associated Diagnoses: None Author: EMANUEL PRATT MD-CAR Basic Information PCP: None Roping Tender: None Chief Complaint Worsening shortness of breath History of Present Illness 49 year-old female with a history of valvular heart disease, congestive heart failure, and COPD with ongoing tobacco abuse presented to [facility] with a 2-month history of worsening [...] ER for evaluation. At the ER at [facility], she had a chest x-ray which showed [...] our facility for higher level of care. Patient denied any active chest pain. No palpitation dizziness falling down or passing out. No orthopnea PND or leg swelling. No fever no chills. Chronic productive cough no hemoptysis. Review of Systems Constitutional: Negative except as documented in history of present illness. Eye: Negative except as documented in history of present illness. Ear/Nose/Mouth/Throat: Negative except as documented in history of present illness. Respiratory: Negative except as documented in history of present illness. Cardiovascular: Negative except as documented in history of present illness. Gastrointestinal: Negative except as documented in history of present illness. Genitourinary: Negative except as documented in history of present illness. Hematology/Lymphatics: Negative except as documented in history of present illness. Endocrine: Negative except as documented in history of present illness. Immunologic: Negative except as documented in history of present illness. Musculoskeletal: Negative except as documented in history of present illness. Integumentary: Negative except as documented in history of present illness. Neurologic: Negative except as documented in history of present illness. Psychiatric: Negative except as documented in history of present illness. Health Status Current medications: Medications (10) Active Scheduled: (5) aspirin EC 81 mg tab 81 mg 1 Tab, Oral, Daily carvedilol 3.125 mg tab 3.125 mg 1 Tab, Oral, BID furosemide 40 mg/4 mL inj 40 mg 4 mL, IV Push, Daily influenza vaccine, quadrivalent 0.5 mL, IntraMuscular, [id number] nicotine 21 mg/24 hr patch 1 Patch, TransDermal, Daily Continuous: (1) heparin/NaCl 0.45% 25,000 Units + Premix Diluent NaCl 0.45% 250 mL 250 mL, IntraVENous PRN: (4) acetaminophen 325 mg tab 650 mg 2 Tab, Oral, Q4H hydrALAZINE 20 mg/1 mL inj 10 mg 0.5 mL, IV Push, Q6H LORazepam 0.5 mg tab 0.5 mg 1 Tab, Oral, Q6H polyethylene glycol 3350 pwd 17 g pkt 17 Gram 1 Packet, Oral, Daily Problem list: Active Problems (1) COPD (chronic obstructive pulmonary disease) Histories No education data available. Social & Psychosocial Habits Alcohol 2019 Alcohol Use History, Social Habits Yes Date/Time of Last Drink once a year Substance Abuse 2019 Recreational Drug Use History Yes Recreational Drug Use Last 12 Months Yes Tobacco 2019 Smoking Status 10 or more cigarettes (1/ Smokeless Tobacco Status Never 2019 Years of Tobacco Use 30 Second Hand Smoke Exposure Yes Past Medical History: Active HTN - Hypertension ([id number]) Family History: Non-contributory Procedure history: None Physical Examination VS/Measurements Vitals Signs (last 24 hrs) Last Charted Minimum Maximum Temp 97.8 (JUL 21 06:16) 97.8 (JUL 21 06:16) 97.7 (JUL 20 21:12) Mon HR 72 (JUL 21 06:15) 72 (JUL 21 06:15) 82 (JUL 21 02:30) Resp Rate 20 (JUL 21 06:15) 17 (JUL 20 21:12) H 35 (JUL 21 05:40) SBP H 182 (JUL 21:15) H 154 (JUL 20 21:12) H 191 (JUL 21 05:46) DBP H 125 (JUL 21:15) H 98 (JUL 21 04:00) H 132 (JUL 21:46) MAP 145 (JUL 21:15) 101 (JUL 21 00:00) 158 (JUL 21 05:46) SpO2 100 (JUL 21:) L 92 (JUL 21 00:00) 100 (JUL 21:) General: Alert and oriented, No acute distress. Eye: Pupils are equal, round and reactive to light. HENT: Normocephalic. Neck: Supple, Non-tender, No carotid bruit, No jugular venous distention. Respiratory: Respirations are non-labored, Breath sounds are equal, Symmetrical chest wall expansion. Breath sounds: Bilateral, Wheezes present. Cardiovascular: Normal rate, Regular rhythm, No gallop, Systolic murmur, Good pulses equal in all extremities, 2/6 DEYSI . Gastrointestinal: Soft, Non-tender, Non-distended, Normal bowel sounds. Musculoskeletal: Normal range of motion, Normal strength. Integumentary: Warm, Dry, [place]. Neurologic: Alert, Oriented. Psychiatric: Cooperative, Appropriate mood & affect. Review / Management JUL 21 01:22 141 107 H 23 / H 110 L 3.2 28 H 2.00 \ JUL 21 01:22 \ L 10.6 / 8.9 L 142 / L 31.4 \ Cardiac Markers (Current Encounter/Past 24 Hours) ProBNP 64578 pg/mL [place] 2019 20:26 Radiology Results (Last 48 hours) [id number] -- 2019 19:20 CR Chest 1 Vw Portable (2019 20:30) Result: Study: Chest single viewCLINICAL HISTORY: Leaking heart valve, CHFCOMPARISON: None availableDescription: Heart size is within normal limits with mild venouscongestion. Interstitial prominence suggesting mild edema. There is noairspace consolidation or effusion.IMPRESSION: Venous congestion with mild interstitial edema Results review: Labs (Last four charted values) [...] (JUL 21) H 0.082 (JUL 20) . Impression and Plan IMPRESSION: Mildly elevated troponin in setting of borderline anemia. No chest pain Troponin 0.082, 0.064 CHF type unknown orthopnea Elevated ProBNP > 12,000 Prolonged QT 554 LETY Cr 2.0 ?? MR per Outside report ECHO pending COPD Ongoing tobacco abuse PLAN; Mild elevation in cardiac biomarkers likely secondary to renal impairment. No chest pain. History of congestive heart failure clinically the patient not to congestive heart failure. Follow-up 2-D echo results. Continue IVUFH. 1 g IV Mag x 1. Repeat EKG. Trend troponin. Echo pending. Increase Coreg to 25 mg BID, add Imdur 15 mg daily. Monitor BP. Avoid QT prolonging drugs. Smoking cessation emphasized. Further decisions pending clinical course. documented in this encounter Plan of Treatment Upcoming Encounters Date Type Department Care Team (Late st Contact Info) Description 04/12/2025 7:30 AM EDT Hospital Encounter [facility] Operating Room 1 [place] [address] Bill Graham MD [address] [facility] [address] [place] [address] 04/12/2025 7:30 AM EDT Anesthesia Event [facility] Operating Room 1 [place] [address] Lucio Szymanski MD [address] [place] [address] 04/12/2025 7:30 AM EDT - 04/12/2025 8:55 AM EDT Surgery [facility] Operating Room 1 [place] [address] Bill Graham MD [address] [facility] [place] [address] (LAPAROSCOPIC PERITONEAL DIALYSIS CATHETER INSERTION) Scheduled Procedures Name Priority Associated Diagnoses Date/Ti me LAPAROSCOPY, WITH PERITONEAL DIALYSIS CATHETER INSERTION Chronic kidney disease, stage V (HCC) 04/12/2025 7:30 AM EDT documented as of this encounter Visit Diagnoses Not on filedocumented in this encounter Care Teams Appointment Manager Relationship Specialty Start Date End Date Félix Monroe, TRAIN CALLER [address] [facility] [address] [place] [address] PCP - General Nurse Practitioner 08/25/22 documented as of this encounter
--- OUTSIDE RECORDS SUMMARY | 2025-04-11 11:00 | XMS_ITS | Encounter Summary ---
Author Organization [employer] ([place], [place], [place], [place]) Address [address] [place] [address] Care Team Providers Care Photography Professor Name Role Phone Fer Félix Singh MICHAEL Primary Care Provider [phone] Encounter Details Date Type Department Care Team (Late st Contact Info) Description 09/03/2019 Transcribed Document [facility] [place] [address] [place] [address] ProviderMaria Esther MD [address] [place] [address] Social History Tobacco Use Types Packs/Day Years Used Date Smoking Tobacco: Never Assessed Comments Unknown Sex and Gender Information Value Date Recorded Sex Assigned at Not on file Legal Sex Female 6:53 PM CDT Gender Identity Not on file Sexual Orientation Not on file documented as of this encounter Miscellaneous Notes * Cerner Conversion Note - Historical ProviderMD - 09/03/2019 2:00 AM ACCOUNT SUPERVISOR Wire Machine Operator Details Entered On: 09/03/2019 6:59 EST Performed On: 09/03/2019 2:00 EST by Latia Gonzalez RN Order Details Transport Mode Order Detail : Wheelchair Isolation Precautions Order Detail : Standard Precautions Order Detail : 0 IV Order Detail : 1 Oxygen Order Detail : 0 Nurse Collect Order Detail : 0 Lift/Transfer : Independent Central Line Order Detail : No Room Service : Appropriate Arterial Line : No Latia Gonzalez RN - 09/03/2019 6:59 EST documented in this encounter Plan of Treatment Upcoming Encounters Date Type Department Care Team (Late st Contact Info) Description 04/12/2025 7:30 AM EDT Hospital Encounter [facility] Operating Room 1 [place] [address] Bill Graham MD [address] [facility] [address] [place] [address] 04/12/2025 7:30 AM EDT Anesthesia Event [facility] Operating Room 1 [place] [address] Lucio Szymanski MD [address] [place] [address] 04/12/2025 7:30 AM EDT - 04/12/2025 8:[address] [facility] Operating Room 1 [place] [address] [place] [address] [place] [address] [address] [place] [address] (LAPAROSCOPIC PERITONEAL DIALYSIS CATHETER INSERTION) Scheduled Procedures Name Priority Associated Diagnoses Date/Ti me LAPAROSCOPY, WITH PERITONEAL DIALYSIS CATHETER INSERTION Chronic kidney disease, stage V (HCC) 04/12/2025 7:30 AM EDT documented as of this encounter Visit Diagnoses Not on filedocumented in this encounter Care Teams Photography Professor Relationship Specialty Start Date End Date Félix Monroe, HEALTH CARE / MEDICAL JOB TITLES [address] [facility] [address] [place] [address] PCP - General Nurse Practitioner 08/25/22 documented as of this encounter
--- OUTSIDE RECORDS SUMMARY | 2025-04-11 11:00 | XMS_ITS | Encounter Summary ---
Author Organization [employer] ([place], [place], [place], [place]) Address [address] [address] Care Team Providers Care Travel Ticketing Reviewer Name Role Phone Félix Monroe APRN Primary Care Provider Encounter Details Date Type Department Care Team (Late st Contact Info) Description 09/01/2019 Transcribed Document [facility] [place] [address] [place] [address] ProviderMaria Esther MD [address] [place], [place] [id number] Social History Tobacco Use Types Packs/Day Years Used Date Smoking Tobacco: Never Assessed Comments Unknown Sex and Gender Information Value Date Recorded Sex Assigned at Not on file Legal Sex Female 6:53 PM CDT Gender Identity Not on file Sexual Orientation Not on file documented as of this encounter Miscellaneous Notes * Cerner Conversion Note - Maria Esther ProviderMD - 09/01/2019 11:08 AM WIRELESS WATCHER Spiritual Care Short Form Entered On: 09/01/2019 14:18 EST Performed On: 09/01/2019 11:08 EST by MISBAH CHOI General Information, Spiritual Care Spiritual Care Referred by : Cage Maker Machine initiated Reason for Visit : Initial Ministry Provided to : Patient, Family/Significant other Intervention/Comment/Summary Points : Spiritual Care volunteer visit by Chauncey Mantilla. Bahai Preference : Restorationist MISBAH CHOI - 09/01/2019 14:17 EST documented in this encounter Plan of Treatment Upcoming Encounters Date Type Department Care Team (Late st Contact Info) Description 04/12/2025 7:30 AM EDT Hospital Encounter [facility] [place] Operating Room 1 [place] [address] Bill Graham MD [address] [facility] [address] [place] [address] 04/12/2025 7:30 AM EDT Anesthesia Event [facility] [place] Operating Room 1 [place] [address] Lucio Szymanski MD [address] [place] [address] 04/12/2025 7:30 AM EDT - 04/12/2025 8:[address] [facility] [place] Operating Room 1 [place] [address] [place] [address] [place] [address] [address] [place] [address] (LAPAROSCOPIC PERITONEAL DIALYSIS CATHETER INSERTION) Scheduled Procedures Name Priority Associated Diagnoses Date/Ti me LAPAROSCOPY, WITH PERITONEAL DIALYSIS CATHETER INSERTION Chronic kidney disease, stage V (HCC) 04/12/2025 7:30 AM EDT documented as of this encounter Visit Diagnoses Not on filedocumented in this encounter Care Teams Travel Ticketing Reviewer Relationship Specialty Start Date End Date Félix Monroe, METAL ROASTER [address] [facility] [address] [place] [address] PCP - General Nurse Practitioner 08/25/22 documented as of this encounter
--- OUTSIDE RECORDS SUMMARY | 2025-04-11 11:00 | XMS_ITS | Encounter Summary ---
Author Organization [employer] ([place], [place], [place], [place]) Address [address] [address] Care Team Providers Care American Sign Language Interpreter Name Role Phone Félix Monroe APRN Primary Care Provider [phone] Encounter Details Date Type Department Care Team (Late st Contact Info) Description 09/04/2019 Transcribed Document [facility] [place] [address] [place] [address] ProviderMaria Esther MD [address] [place] [address] Social History Tobacco Use Types [...] - Maria Esther Reyes MD - 09/04/2019 12:47 PM AUTOBODY TECHNICIAN [facility] [place] [id number] CORRIE SMITH :1970 Visit Time:08/29/2019 Your Visit Summary Your Care Team Admitting Physician - ALESHA EMERY MD-CAT Attending Physician - ALESHA EMERY MD-CAT Primary Care Physician - NICOLE KENNEDY DR Referring Physician - ALESHA EMERY MD-CAT Your Diagnosis Chronic renal failure, stage 4 (severe) Chronic systolic, valvular congestive heart failure, NYHA class 3 COPD (chronic obstructive pulmonary disease) GERD (gastroesophageal reflux disease) History of Obesity S/P Laparoscopic gastric banding History of Pulmonary edema History of TIA (transient ischemic attack) Nicotine dependence with withdrawal RLS (restless legs syndrome) Severe mitral insufficiency, Severe mitral insufficiency Systemic hypertension Thrombocytopenia Discharge Vitals Heart Rate (Monitored) 72 Blood Pressure 107/72 What to do next Instructions From Your Care Team STOP the following medications: STOP Isosorbide Mononitrate (imdur) STOP Tylenol (acetaminophen) Cleanse your incision daily. You may shower when you get home. DO NOT soak in water. Keep your back facing the shower head and only face it when you are ready to rinse. You may use shampoo. Wash your body first then wash your incision last with a separate wash cloth. Use antibacterial soap (Dial or the generic) and water until all the scabs have fallen off and you are left with a pink scar. Any remaining stitches will be removed at the follow-up with your surgeon. DO NOT apply antibiotic ointments or any lotions until this time. IF you notice any signs of infection such as redness, temperature greater than 101.5, thick foul smelling drainage, swelling, increased pain or edges that no longer touch then call your surgeon. Apply dressings only if there is drainage. Otherwise leave the incision open to air. DO NOT lift anything that weighs more than 10 pounds for 10 weeks. This is approximately what a gallon of milk weighs. No driving for 6-8 weeks or operating any heavy machinery. Make sure while taking narcotic pain medication that you are having a bowel movement at least every 3 days. The office number is . During weekday office hours ask for Florinda MARIA. After hours and weekend calls will be directed to the [facility]. Ask to page your MD. Discharge Activity: no pushing or pulling, Discharge Activity: No heavy lifting over 10 lbs Diet: Discharge Diet: Heart healthy diet Showering/Bathing Instructions: May shower Driving Restriction: Do Not Drive until seen by Dr. Emery Follow-Up Appointments Follow Up with LEONARDO MADISON When 10/13/2019 08:45 AM EDT Where: [address] [facility] [address] [place] [address]- Business (1) Follow Up with ALESHA EMERY When 09/21/2019 09:00 AM EDT Where: [address] [facility] [address] [place] [address] Business (1) Follow Up with NIALL LIVINGSTON When 09/12/2019 02:30 PM EST Where: [address] [facility]. [address] [place], [place] [id number]- Follow Up with WINSTON GREEN When 09/07/2019 02:20 PM EST Comments Appointment has been made. Please arrive 30 minutes before appointment. Bring photo ID, proof of insurance, and your discharge summary. Please confirm appointment with office prior to your arrival date. Any questions, please call the Patient Resource Center at . Where: [address] [place] [place] [address]- Business (1) Follow Up with [facility] When Within 6 weeks Comments Office to call with appoint/instructions Where: [address] [place] [address]- Medications What How Much When Instructions Next Dose acetaminophen-hydrocodone (acetaminophen-HYDROcodone 325 mg-5 mg oral tablet) 1 Tablet(s) Oral Every 4 Hours as needed for Pain (Moderate 4-6) as needed senna (Senokot 8.6 mg oral tablet) 2 Tablet(s) Oral Two Times A Day Available OTC 09/04 amLODIPine (amLODIPine 5 mg oral tablet) 1 Tablet(s) Oral Every Day NEW DOSE. Cut your 10 mg tablets in half to = 5 mg dose. 09/05 aspirin (aspirin 81 mg oral delayed release tablet) 1 Tablet(s) Oral Every Day 09/05 carvedilol 25 Milligram(s) Oral Two Times A Day 09/04 nicotine (nicotine 21 mg/ 24 hr transdermal film, extended release) 1 Patch(es) TransDermal Every Day 09/05 pantoprazole 40 Milligram(s) Oral Every Day 09/05 rOPINIRole (Requip 1 mg oral tablet) Oral At Bedtime 09/04 Take your medications faithfully. Do NOT skip medication. Do NOT stop taking medications without the direction of a physician. Carry a list of your medications with you at all times, and take this medication list with you to your first follow up visit. Report any side effects. Avoid herbal remedies unless discussed with your physician. As part of your treatment plan, your physician may have prescribed a limited course of a controlled substance. This medication may be given to help people with moderate or severe pain or for other medical conditions, but there are risks involved with treatment. Common side effects may include nausea, constipation, drowsiness, sweating, itching, dry mouth, and rash. More serious side effects may include cognitive and motor impairment, like problems with thinking, concentrating, alertness, and movement (e.g. slowed reflexes), and driving and operating heavy machinery can be dangerous. It is important for you to talk to your physician if you have these side effects or questions. These controlled substances can produce physical dependence and be habit-forming if taken for an extended period of time, which means that the body has gotten used to them and may experience withdrawal symptoms if they are abruptly stopped. Withdrawal symptoms can include runny nose, sweating, goose bumps, diarrhea, abdominal cramping, rapid heartbeat, difficulty sleeping, and nervousness. Please dispose of unused and medications per your retail pharmacy guidance. Allergies codeine (Nausea, Hives, Welts) Immunizations This Visit influenza virus vaccine, inactivated 09/04/2019 Education Materials Steps to Quit Smoking Smoking tobacco can [...] 04/24/2010 Document Revised: 02/23/2017 Document Reviewed: 11/12/2015 [employer] Interactive Patient Education ?? 2019 [employer] Smoking Hazards Smoking cigarettes is extremely bad for your health. Tobacco smoke has over 200 known poisons in it. It contains the poisonous gases nitrogen oxide and carbon monoxide. There are over 60 chemicals in tobacco smoke that cause cancer. Some of the chemicals found in cigarette smoke include: ??? Cyanide. ??? Benzene. ??? Formaldehyde. ??? Methanol (wood alcohol). ??? Acetylene (fuel used in welding torches). ??? Ammonia. Even smoking lightly shortens your life expectancy [...] serious medical problems, including: ??? Lung cancer. ??? Lung disease (such as pneumonia, bronchitis, and emphysema). ??? Heart attack and chest pain due to the heart not getting enough oxygen (angina). ??? Heart disease and peripheral blood vessel disease. ??? Hypertension. ??? Stroke. ??? Oral cancer (cancer of the lip, mouth, or voice box). ??? Bladder cancer. ??? Pancreatic cancer. ??? Cervical cancer. ??? complications, including premature . ??? Stillbirths and smaller babies, defects, and genetic damage to sperm. ??? Early menopause. ??? Lower estrogen level for women. ??? Infertility. ??? Facial wrinkles. ??? Blindness. ??? Increased risk of broken bones (fractures). ??? Senile dementia. ??? Stomach ulcers and internal bleeding. ??? Delayed wound healing and increased risk of complications during surgery. Because of secondhand smoke exposure, children of smokers have an increased risk of the following: ??? Sudden infant syndrome (SIDS). ??? Respiratory infections. ??? Lung cancer. ??? Heart disease. ??? Ear infections. WHY IS SMOKING ADDICTIVE? Nicotine is the [...] decreases. Health improvements are seen almost immediately. ??? Blood pressure, pulse rate, and breathing patterns start returning to normal soon after quitting. ??? People who quit may see an improvement in their overall quality of life. HOW DO YOU QUIT SMOKING? Smoking is [...] contain harmful chemicals. FOR MORE INFORMATION ??? [place] [employer]: www.lung.org ??? [place] [employer]: www.cancer.org This information is not intended to replace advice given to you by your health care provider. Make sure you discuss any questions you have with your health care provider. Document Released: 08/05/2005 Document Revised: 10/19/2016 Document Reviewed: 12/18/2013 [employer] Interactive Patient Education ?? 2017 [employer] Preventing Constipation After Surgery Constipation is [...] bowel movement. ??? Having hard, dry, or gdntyb-puke-fpeovi stools. ??? Feeling full or bloated. ??? [...] as fried and sweet foods. These include bruneian fries, hamburgers, cookies, and candy. ??? Take [...] you use the restroom. Medicine ??? Take lifb-uia-nazyata and prescription medicines only as told by [...] have not had a bowel movement within 24???48 hours after using them. ??? You have [...] 10/23/2013 Document Revised: 09/27/2017 Document Reviewed: 09/27/2017 [employer] Interactive Patient Education ?? 2019 [employer]. Incentive Spirometer An incentive spirometer is a [...] the column. 6. Hold your breath for 3???5 seconds or for as long as possible. [...] repeat this at least 10 times, every 1???2 hours when you are awake. Take your [...] 11/08/2007 Document Revised: 03/22/2017 Document Reviewed: 02/04/2015 Handy Interactive Patient Education ?? 2018 [employer]. How to Take Your Blood Pressure [...] monitor. You can buy one at a [employer] or online. When choosing one: ??? Choose [...] the numbers on the screen. 11. Wait 2???3 minutes and then repeat steps 1???10. What do the numbers mean? Two numbers [...] number: below 80. Elevated ??? First number: 120???129. ??? Second number: below 80. Hypertension stage 1 ??? First number: 130???139. ??? Second number: 80???89. Hypertension stage 2 ??? First number: 140 [...] 06/10/2009 Document Revised: 05/26/2017 Document Reviewed: 12/04/2016 [employer] Interactive Patient Education ?? 2019 [employer]. How to Take a Pulse Your [...] year of age: Normal heart rate of 100???160 bpm. ??? Children 1???2 years of age: Normal heart rate of 90???150 bpm. ??? Children 2???5 years of age: Normal heart rate of 80???140 bpm. ??? Children 6???12 years of age: Normal heart rate of 70???120 bpm. ??? Everyone over 12 years of age: Normal heart rate of 60???100 bpm. There can be a lot of [...] fingers just to one side of your Melo???s apple so that you feel a pulsing [...] 01/02/2004 Document Revised: 01/15/2017 Document Reviewed: 12/01/2016 [employer] Interactive Patient Education ?? 2019 [employer] Fluid Restriction With some health conditions, [...] 04/24/2008 Document Revised: 03/02/2018 Document Reviewed: 03/02/2018 [employer]y Interactive Patient Education ?? 2019 [employer] Fall Prevention in the Home Introduction [...] items that you use a lot in ovzi-hn-fqkft places. ??? If you need to reach something above you, use a strong step stool that has a grab bar. ??? Keep electrical cords out of the way. ??? Do notuse floor namibian or wax that makes floors slippery. If [...] do to help prevent falls? Wear shoes that: ? Do nothave high heels. ? Have rubber bottoms. ? Are comfortable and fit you well. ? Are closed at the toe. Do not wear sandals. ??? If you use a stepladder: ? Make sure that it is fully opened. Do not climb a closed stepladder. ? Make sure that both sides of the stepladder are locked into place. ? Ask someone to hold it for you, if possible. ??? Clearly cathie and make sure that you can see: ? Any grab bars or handrails. ? First [...] 04/24/2010 Document Revised: 12/03/2016 Document Reviewed: 08/02/2015 ?? 2017 Elsevier Daily Weight Record It is [...] 09/09/2007 Document Revised: 06/11/2017 Document Reviewed: 01/25/2015 [employer]y Interactive Patient Education ?? 2019 [employer]. Diabetes Mellitus and Sick Day Management Blood [...] blood glucose? Check your blood glucose every 2???4 hours, or as often as told by [...] of sugar. Take medicines as directed ??? Uour-vdio-xbx-counter and prescription medicines only as told by your health care provider. ??? Check medicine labels for added sugars. Some medicines may contain sugar or types of sugars that can raise your blood glucose level. What foods can I eat when I am sick? You need to eat some form of carbohydrates when you are sick. You should eat 45???50 grams (45???50 g) of carbohydrates every 3???4 hours until you feel better. All of the food choices below contain about 15 g of carbohydrates. Plan ahead and keep some of these foods around so you have them if you get sick. ??? 4???6 oz (120???177 mL) carbonated beverage that contains sugar, such [...] 06/30/2004 Document Revised: 03/26/2017 Document Reviewed: 03/26/2017 Handy Interactive Patient Education ?? 2019 [employer]. Atrial Fibrillation Atrial fibrillation is a type [...] Follow these instructions at home: ??? Take jkug-tla-vjzzkyn and prescription medicines only as told by [...] 04/06/2009 Document Revised: 12/03/2016 Document Reviewed: 10/23/2015 Handy Interactive Patient Education ?? 2019 [employer]. Aortic Valve Replacement, Care After Refer [...] of beer, 5 oz of wine, or 1?? oz of hard liquor. ? Limit how [...] and move around at least once every 1???2 hours. This helps to prevent blood clots [...] and water are not available, use hand order packer. ? Change your dressing as told by [...] or a bad smell. Medicines ??? Take ywhy-gnj-arcqjss and prescription medicines only as told by [...] Do not drive yourself to the hospital. documented in this encounter Plan of Treatment Upcoming Encounters Date Type Department Care Team (Late st Contact Info) Description 04/12/2025 7:30 AM EDT Hospital Encounter [facility] Operating Room 1 [place] [address] Bill Graham MD [address] [place] [address] [address] 04/12/2025 7:30 AM EDT Anesthesia Event [facility] Operating Room 1 [place] [address] Lucio Szymanski MD [address] [place] [address] 04/12/2025 7:30 AM EDT - 04/12/2025 8:55 AM EDT Surgery [facility] Operating Room 1 [place] [address] Bill Graham MD [address] [place] [address] [address] [place] [address] (LAPAROSCOPIC PERITONEAL DIALYSIS CATHETER INSERTION) Scheduled Procedures Name Priority Associated Diagnoses Date/Ti me LAPAROSCOPY, WITH PERITONEAL DIALYSIS CATHETER INSERTION Chronic kidney disease, stage V (HCC) 04/12/2025 7:30 AM EDT documented as of this encounter Visit Diagnoses Not on filedocumented in this encounter Care Teams American Sign Language Interpreter Relationship Specialty Start Date End Date Félix Monroe, OUTSOLES CHANNEL OPENER [address] [facility] [address] [place] [address] PCP - General Nurse Practitioner 08/25/22 documented as of this encounter
--- OUTSIDE RECORDS SUMMARY | 2025-04-11 11:00 | XMS_ITS | Encounter Summary ---
Author Organization [employer] ([place], [place], [place], [place]) Address [address] [place] [address] Care Team Providers Care Pavilion Cutter Name Role Phone Félix Monroe APRN Primary Care Provider [phone] Encounter Details Date Type Department Care Team (Late st Contact Info) Description 09/01/2019 Transcribed Document [facility] [place] Family Medicine [address] [place] [address] ProviderMaria Esther MD [address] [place] [address] Social History Tobacco Use Types Packs/Day Years Used Date Smoking Tobacco: Never Assessed Comments Unknown Sex and Gender Information Value Date Recorded Sex Assigned at Not on file Legal Sex Female 6:53 PM CDT Gender Identity Not on file Sexual Orientation Not on file documented as of this encounter Miscellaneous Notes * Cerner Conversion Note - Historical ProviderMD - 09/01/2019 5:00 AM GLASS INSTALLER Chart Check - Review Order Profile Entered On: 09/01/2019 7:46 EST Performed On: 09/01/2019 5:00 EST by Latia Gonzalez RN Chart Check All Active Orders Reviewed : Yes Latia Gonzalez RN - 09/01/2019 7:46 EST documented in this encounter Plan of Treatment Upcoming Encounters Date Type Department Care Team (Late st Contact Info) Description 04/12/2025 7:30 AM EDT Hospital Encounter [facility] Operating Room 1 [place] [address] Bill Graham MD [address] [facility] [address] [place] [address] 04/12/2025 7:30 AM EDT Anesthesia Event [facility] Operating Room 1 [place] [address] Lucio Szymanski MD [address] [place] [address] 04/12/2025 7:30 AM EDT - 04/12/2025 8:55 AM EDT Surgery [facility] Operating Room 1 [place] [address] Bill Graham MD [address] [facility] [address] [place] [address] (LAPAROSCOPIC PERITONEAL DIALYSIS CATHETER INSERTION) Scheduled Procedures Name Priority Associated Diagnoses Date/Ti me LAPAROSCOPY, WITH PERITONEAL DIALYSIS CATHETER INSERTION Chronic kidney disease, stage V (HCC) 04/12/2025 7:30 AM EDT documented as of this encounter Visit Diagnoses Not on filedocumented in this encounter Care Teams Pavilion Cutter Relationship Specialty Start Date End Date Félix Monroe, RETAIL LEASING AGENT [address] [facility] [address] [place] [address] PCP - General Nurse Practitioner 08/25/22 documented as of this encounter
--- OUTSIDE RECORDS SUMMARY | 2025-04-11 11:01 | XMS_ITS ---
Author Organization Healthcare Address [address] 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 2023 Persistent atrial fibrillation 06/02/2024 Intracardiac thrombosis, not elsewhere classifie d 06/01/2024 Unspecified atrial flutter 06/01/2024 Chronic anticoagulation 05/29/2024 HFrEF (heart failure with reduced ejection fract ion) 08/20/2023 Proteinuria, unspecified 08/19/2023 Other disorders of phosphorus metabolism 024 Unspecified protein-calorie malnutrition 024 Secondary hyperparathyroidism of renal origin Iron deficiency anemia, unspecified 04/14/2023 Anaphylactic reaction due to adverse effect of correct drug or medicament properly administered, initial encounter 04/07/2023 Dependence on renal dialysis 04/07/2023 Hypertensive heart and chron ic kidney disease with heart failure and with stage 5 chronic kidney disease, or end stage renal disease 04/07/2023 ICD (implantable cardioverter-defibrillator) in place 03/23/2023 Overview (03/23/2023): Single-chamber ESRD needing dialysis 03/22/2023 H/O mitral valve replacement 03/22/2023 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 Essential hypertension 03/22/2023 NICM (nonischemic cardiomyopathy) 03/22/2023 CKD (chronic kidney disease) 03/04/2023 Shortness of breath 03/04/2023 Hypervolemia associated with renal insufficiency 02/07/2023 Acute on chronic systolic heart failure 06/17/20 Elevated serum creatinine 06/17/2022 Elevated troponin 06/17/2022 Hypokalemia 06/17/2022 Anemia, chronic disease 03/19/2021 RLS (restless legs syndrome) 03/19/2021 Stage 3b chronic kidney disease 03/19/2021 NSTEMI (non-ST elevated myocardial infarction) 0 02/18/2021 Chronic obstructive pulmonary disease 12/23/2020 Gastroesophageal reflux disease 09/01/2019 Basal cell carcinoma of nose 04/16/2016 Current Treatment and Therapy Plans No current plan information found. Other Current Plans NITH[facility] IP - Hemodialysis* Plan Start Date:03/01/2025 Plan Provider:Duane Li MD Linked Problems ESRD needing dialysis ([facility]) Treatment Medications No medications scheduled. Past Treatment and Therapy Plans Lifetime Dose Tracking * Chemical Lifetime Dose Automatic Entry Manual Entr y Fluoro Time 74.1 minutes 2.1 minutes 72 minutes Air Kerma 393 mGy 24 mGy 369 mGy Air Kerma Area Product 54.9 Gy-cm2 0 Gy-cm2 54.9 Gy-cm2 Air Kerma Area Product 912.05 Gym 912.05 Gym 0 Gym
--- OUTSIDE RECORDS SUMMARY | 2025-04-11 11:01 | XMS_ITS | Encounter Summary ---
Author Organization [employer] ([place], [place], [place], [place]) Address [address] [address] Care Team Providers Care Employer Relations Representative Name Role Phone Félix Monroe APRN Primary Care Provider [phone] Encounter Details Date Type Department Care Team (Late st Contact Info) Description 07/23/2019 Transcribed Document [facility] Radiology [address] [place] [address] Radha Villa MD [address] [place] [address] Social History Tobacco Use Types Packs/Day Years Used Date Smoking Tobacco: Never Assessed Comments Unknown Sex and Gender Information Value Date Recorded Sex Assigned at Not on file Legal Sex Female 6:53 PM CDT Gender Identity Not on file Sexual Orientation Not on file documented as of this encounter Miscellaneous Notes * Cerner Conversion Note - Radha Villa MD - 07/23/2019 1:13 PM EST Patient: CORRIE SMITH Age: 49 years Sex: Female : 1970 Associated Diagnoses: None Author: RADHA VILLA MD-[facility] NEPHROLOGY PROGRESS NOTE SUBJECTIVE ,no c/o MEDICATIONS Medications by Classification Cardiovascular isosorbide mononitrate [...] Last Charted Minimum Maximum Temp 97.8 (JUL 23 09:43) 97.8 (JUL 23 09:43) 98 (JUL 22 20:38) Mon HR 75 (JUL 23 09:43) 72 (JUL 23 02:28) 81 (JUL 23 08:12) Resp Rate 16 (JUL 23 08:12) 16 (JUL 23 06:21) 20 (JUL 22 20:38) SBP 125 (JUL 23 09:43) 120 (JUL 22 22:15) H 154 (JUL 22:38) DBP 85 (JUL 23 09:43) 80 (JUL 22 14:24) H 102 (JUL 22 20:38) MAP 101 (JUL 23 09:43) 95 (JUL 22 14:24) 117 (JUL 22 20:38) SpO2 97 (JUL 23 08:12) 97 (JUL 22 20:38) 97 (JUL 22 20:38) Intake & Output Totals Last 24 Hours (7a-7a) Intake (1 Events) Oral Intake (350 mL) Output (1 Events) Urine Voided (Volume) (350 mL) Input Total: 350 mL Output Total: 350 mL Balance: 0 mL Intake & Output Totals Last 24 Hours (7a-7a) Intake (1 Events) Oral Intake (350 mL) Output (1 Events) Urine Voided (Volume) (350 mL) Input Total: 350 mL Output Total: 350 mL Balance: 0 mL HEENT: normocephalic atraumatic without lesions. EYES: [...] NEUROLOGIC: awake. No focal weakness LABORATORY JUL 23 03:59 137 104 H 28 / 104 L 3.4 31 H 2.40 \ JUL 23 03:59 \ L 11.1 / 6.4 164 / L 33.2 \ ASSESSMENT /PLAN 1.LETY: possibly related to attempts to diurese to control bp and CHF symptoms. Unfortunately serum creatinine is worsening. 2. CKD3: unknown baseline. She has had stable Cr around 2 2. Hypertension: ok control 3. Hypokalemia. there is concern for hyperaldosternoism (primary) Spironolactone held after first dose yesterday. replace KCL. 4. CHF: related severe Mitral Valve disease. currently appears volume depleted Plan to hold further diuresis. Give 1L NS over 24 hrs (50 ml/hr). Check urine studies now. check renal functions in AM. If Creatinine is improving towards her stable level of 2, would be ok to proceed with angiogram. If creatinine is worsneing further, we'll have to wait on angiogram and monitor for renal recovery. I discussed the increased risk for contrast nephropathy with the patient today. documented in this encounter Plan of Treatment Upcoming Encounters Date Type Department Care Team (Late st Contact Info) Description 04/12/2025 7:30 AM EDT Hospital Encounter [facility] Operating Room [address] [place] [address] Bill Graham MD [address] [facility] [address] [place] [id number] 04/12/2025 7:30 AM EDT Anesthesia Event [facility] Operating Room [address] [place] [address] Lucio Szymanski MD [address] [place] [address] 04/12/2025 7:30 AM EDT - 04/12/2025 8:55 AM EDT Surgery [facility] Operating Room [address] [place] [address] [place] [address] [place] [address] [address] [place] [address] (LAPAROSCOPIC PERITONEAL DIALYSIS CATHETER INSERTION) Scheduled Procedures Name Priority Associated Diagnoses Date/Ti me LAPAROSCOPY, WITH PERITONEAL DIALYSIS CATHETER INSERTION Chronic kidney disease, stage V (HCC) 04/12/2025 7:30 AM EDT documented as of this encounter Visit Diagnoses Not on filedocumented in this encounter Care Teams Employer Relations Representative Relationship Specialty Start Date End Date Félix Monroe, GRAIN DRIER OPERATOR [address] [facility] [address] [place] [address] PCP - General Nurse Practitioner 08/25/22 documented as of this encounter
--- OUTSIDE RECORDS SUMMARY | 2025-04-11 11:01 | XMS_ITS | Encounter Summary ---
Author Organization [employer] ([place], [place], [place], [place]) Address [address] [place] [address] Care Team Providers Care Merchandise Distributor Name Role Phone Félix Monroe APRN Primary Care Provider [phone] Encounter Details Date Type Department Care Team (Late st Contact Info) Description 09/04/2019 Transcribed Document [facility] [address] [place] [address] ProviderMaria Esther MD [address] [place], [place] [id number] Social History Tobacco Use Types Packs/Day Years Used Date Smoking Tobacco: Never Assessed Comments Unknown Sex and Gender Information Value Date Recorded Sex Assigned at Not on file Legal Sex Female 6:53 PM CDT Gender Identity Not on file Sexual Orientation Not on file documented as of this encounter Miscellaneous Notes * Cerner Conversion Note - Maria Esther ProviderMD - 09/04/2019 2:06 PM RECRUITING INTERN UM Authorization Entered On: 09/04/2019 14:06 EST Performed On: 09/04/2019 14:06 EST by Deborah Toro, Quiller Hand Primary Insurance Authorization Authorization and Policy Numbers : Insurance 1 Health Plan: [employer] Policy Number: [id number] Authorization Number: [id number] Insurance Primary Name : Osvaldo [id number] Authorization Status-Primary : Admit approved Auth/Referral Contact Name-Primary : DC Reference Number-Primary : [id number] Authorization Number-Primary : auth pending per [facility] notes Number of Days Authorized-Primary : 6 Day(s) Authorized Service Begin Date-Primary : 08/29/2019 EST Authorized Service End Date-Primary : 09/04/2019 EST Authorization Comments-Primary : Discharge date and summary faxed. Historical Authorization Comments-Primary : Comment 1: IP auth from 08/29 to 09/04 noted on availity (JESSICA FAGAN RN 08/30/2019 09:05) Deborah Toro, Quiller Hand - 09/04/2019 14:06 EST Electronically signed by Nir [facility] Conversion Perforator Cerner at 10/28/2022 7:16 PM CDT documented in this encounter Plan of Treatment Upcoming Encounters Date Type Department Care Team (Late st Contact Info) Description 04/12/2025 7:30 AM EDT Hospital Encounter [facility] Operating Room 1 [place] [address] Bill Graham MD [address] [place] [address] [place] [phone] 04/12/2025 7:30 AM EDT Anesthesia Event [facility] Operating Room [address] [place] [address] Lucio Szymanski MD [address] [place] [address] 04/12/2025 7:30 AM EDT - 04/12/2025 8:55 AM EDT Surgery [facility] Operating Room [address] [place] [address] Bill Graham MD [address] [place] [address] [address] [place] [address] (LAPAROSCOPIC PERITONEAL DIALYSIS CATHETER INSERTION) Scheduled Procedures Name Priority Associated Diagnoses Date/Ti me LAPAROSCOPY, WITH PERITONEAL DIALYSIS CATHETER INSERTION Chronic kidney disease, stage V (HCC) 04/12/2025 7:30 AM EDT documented as of this encounter Visit Diagnoses Not on filedocumented in this encounter Care Teams Merchandise Distributor Relationship Specialty Start Date End Date Félix Monroe, BUSINESS MANAGEMENT ANALYST [address] [facility] [address] [place] [address] PCP - General Nurse Practitioner 08/25/22 documented as of this encounter
--- OUTSIDE RECORDS SUMMARY | 2025-04-11 11:01 | XMS_ITS | Encounter Summary ---
Author Organization [employer] ([place], [place], [place], [place]) Address [address] [place] [address] Care Team Providers Care Search Engine Optimization Strategist Name Role Phone Monroe Félix Francisco RODRIGUEZ Primary Care Provider [phone] Encounter Details Date Type Department Care Team (Late st Contact Info) Description 09/04/2019 Transcribed Document [facility] [place] [address] [place] [address] ProviderMaria Esther MD [address] [place], [place] [address] Social History Tobacco Use Types Packs/Day Years Used Date Smoking Tobacco: Never Assessed Comments Unknown Sex and Gender Information Value Date Recorded Sex Assigned at Not on file Legal Sex Female 6:53 PM CDT Gender Identity Not on file Sexual Orientation Not on file documented as of this encounter Miscellaneous Notes * Cerner Conversion Note - Maria Esther Reyes MD - 09/04/2019 1:21 PM PRESS SMITH HELPER Patient: CORRIE SMITH Age: 49 years Sex: Female : 1970 Associated Diagnoses: None Author: SHAWANDA LUIS MD-[facility] NEPHROLOGY PROGRESS NOTE SUBJECTIVE She will be going home today, feeling fine, MEDICATIONS Medications by Classification Cardiovascular carvedilol - 25 mg, Oral, Tab, BID, Routine amLODIPine - 5 mg, Oral, Tab, Daily, Routine Respiratory albuterol-ipratropium [...] - 100 mg, Oral, Cap, BID, Routine magnesium sulfate + Dextrose 5% in [...] PRN for Other (See Comment), Routine Vitamins calcium gluconate - 1 Gram 10 mL, [...] 24 hrs) Last Charted Minimum Maximum Temp 98.4 (SEP 04 06:47) 98.0 (SEP 03 15:26) 99.2 (SEP 03 22:38) Mon HR 72 (SEP 04 09:10) 67 (SEP 04 02:02) 72 (SEP 04 09:10) Resp Rate 16 (SEP 04 06:47) 16 (SEP 04 06:47) 18 (SEP 03 22:38) SBP 107 (SEP 04 09:10) 107 (SEP 03 15:26) 125 (SEP 03 22:38) DBP 72 (SEP 04 09:10) 71 (SEP 03 15:26) 80 (SEP 03 22:38) MAP 85 (SEP 04 09:10) 80 (SEP 03 15:26) 92 (SEP 03 22:38) SpO2 96 (SEP 04 09:10) 94 (SEP 03 22:38) 96 (SEP 04 09:10) Intake & Output Totals Last 24 Hours (7a-7a) Intake (5 Events) Medications (30 mL) Oral Intake (480 mL) Output (0 Events) No output events found in the last 24 hours. Input Total: 510 mL Output Total: 0 mL Balance: 510 mL Intake & Output Totals Last 24 Hours (7a-7a) Intake (5 Events) Medications (30 mL) Oral Intake (480 mL) Output (0 Events) No output events found in the last 24 hours. Input Total: 510 mL Output Total: 0 mL Balance: 510 mL HEENT: normocephalic atraumatic without lesions. EYES: [...] NEUROLOGIC: awake. No focal weakness LABORATORY SEP 04 03:12 137 L 100 21 / 106 L 3.3 H 33 H 2.10 \ SEP 04 03:12 \ L 9.7 / 8.3 206 / L 29.3 \ ASSESSMENT /PLAN 1.LETY: renal functions improved. Cr close to baseline. We'll hold diuretics tomorrow. Follow-up with Dr. Gallardo in 2 weeks. 2. Hypertension: well controlled. +BP on low side. decreased Amlodipine 3. Anemia. Stable Hgb\ Okay for discharge home and follow up with Dr. Gallardo in 2 weeks documented in this encounter Plan of Treatment Upcoming Encounters Date Type Department Care Team (Late st Contact Info) Description 04/12/2025 7:30 AM EDT Hospital Encounter [facility] Operating Room 1 [place] [address] Bill Graham MD [address] [place] [address] [address] [place] [address] 04/12/2025 7:30 AM EDT Anesthesia Event [facility] Operating Room [address] [place] [address] Lucio Szymanski MD [address] [place] [address] 04/12/2025 7:30 AM EDT - 04/12/2025 8:55 AM EDT Surgery [facility] Operating Room [address] [place] [address] Bill Graham MD [address] [facility] [address] [place] [address] (LAPAROSCOPIC PERITONEAL DIALYSIS CATHETER INSERTION) Scheduled Procedures Name Priority Associated Diagnoses Date/Ti me LAPAROSCOPY, WITH PERITONEAL DIALYSIS CATHETER INSERTION Chronic kidney disease, stage V (HCC) 04/12/2025 7:30 AM EDT documented as of this encounter Visit Diagnoses Not on filedocumented in this encounter Care Teams Search Engine Optimization Strategist Relationship Specialty Start Date End Date Félix Monroe, HELPER MAINTENANCE CLEANING [address] [facility] [address] [place] [address] PCP - General Nurse Practitioner 08/25/22 documented as of this encounter
--- OUTSIDE RECORDS SUMMARY | 2025-04-11 11:01 | XMS_ITS | Encounter Summary ---
Author Organization [employer] ([place], [place], [place], [place]) Address [address] [address] Care Team Providers Care Crime Scene Investigator Name Role Phone Félix Monroe APRN Primary Care Provider [phone] Encounter Details Date Type Department Care Team (Late st Contact Info) Description 2019 Transcribed Document [facility] [place] [address] [place] [address] ProviderMaria Esther MD [address] [place], [place] [address] Social History Tobacco Use Types Packs/Day Years Used Date Smoking Tobacco: Never Assessed Comments Unknown Sex and Gender Information Value Date Recorded Sex Assigned at Not on file Legal Sex Female 6:53 PM CDT Gender Identity Not on file Sexual Orientation Not on file documented as of this encounter Miscellaneous Notes * Cerner Conversion Note - Maria Esther Reyes MD - 2019 8:57 PM DELI CUTTER SLICER Patient: CORRIE SMITH [facility]: [id number] Age: 49 Years Sex: Female : 1970 Chief Complaint shortness of breath Primary Care Provider NICOLE KENNEDY PRIM DR History of Present Illness Corrie Smith is a 49-year-old female with a history of valvular heart disease, congestive heart failure, and tobacco abuse presented to [facility] with a 2-month history of worsening [...] ER for evaluation. At the ER at [facility], she had a chest x-ray which showed [...] and Brilinta, given nitroglycerin and intravenous Lasix, awas started on a heparin drip, and was transferred to our facility for higher level of care. Review of Systems Constitutional: No fevers, chills Eye: No blurry vision, no discharge HEENT: No sore throat, no nasal congestion Respiratory: reports shortness of breath, orthopnea, BARNES Cardiovascular: No Chest pain, reports PND, BARNES Gastrointestinal: No nausea, vomiting, diarrhea, constipation Genitourinary: No hematuria, no dysuria Bereket/Lymph: Negative for bruising tendency, no nosebleeds Endocrine: Negative for excessive thirst, no excessive urination Musculoskeletal: No back pain, no leg pain Integumentary: No rash, no pruritus Neurologic: No weakness, no numbness Psychiatric: No anxiety, depression Vital Signs HT: 167.64 cm WT: 59.09 kg BMI: 21 Oxygen Settings (Last) No qualifying data available. Physical Exam General: Alert and oriented, no acute distress Neurologic: Awake, alert, and oriented X3, no apparent focal deficits Eye: PERRL, EOMI, normal conjunctiva HENT: Normocephalic, atraumatic Neck: Supple, non-tender, no carotid bruits, no JVD Lungs: bilateral crackles, no wheezing Heart: Normal rate, regular rhythm, systolic murmur Abdomen: Soft, non-tender, non-distended, normal bowel sounds Musculoskeletal: Normal range of motion and strength, no tenderness or swelling Skin: Skin is warm, dry and pink, no rashes or lesions Psychiatric: Cooperative, appropriate mood and affect Assessment/Plan Severe MR - patient reports history of [...] may need nephrology evaluation if plans for [facility] - check FEUrea, renal ultrasound Anemia, Hgb 10.8 - normocytic, normochromic Thrombocytopenia - Plt 148, continue to monitor while on antiplatelets and heparin gtt Prolonged QTc - 554 - avoid QT-prolonging medications Tobacco abuse, cigarettes - tobacco cessation counseling - patient offered nicotine patch DVT ppx: SCDs, heparin gtt GI ppx: not indicated Diet: heart healthy, NPO after midnight Code status: full code Medications, labs, imaging, and available medical records reviewed. Time spent: 45 minutes Dictated using [employer] Speech Recognition software - unidentified cloth stretcher errors may be present. Orders: acetaminophen, 650 mg, Oral, Tab, Q4H, PRN for Fever, Routine, Start 07/20/19 20:54:00 EST aspirin, 81 mg, Oral, EC Tab, Daily, Routine, Start 07/21/19 9:00:00 EST carvedilol, 3.125 mg, Oral, Tab, BID, Routine, Start 07/20/19 21:00:00 EST citric acid-potassium bicarbonate, 60 mEq, Oral, Tab, 1-Time, Routine, Start 07/20/19 21:00:00 EST, Stop 07/20/19 21:00:00 EST furosemide, 40 mg, IV Push, Inj, Daily, Routine, Start 07/21/19 9:00:00 EST heparin 25,000 Units + NaCl 0.45% Premix Diluent 250 mL, 250 mL, Bag Volume (mL) = 250, IntraVENous, start date 07/20/19 19:54:00 EST, Routine, Titrate, 1.66, m2 polyethylene glycol 3350, 17 Gram, Oral, Powder, Daily, PRN for Constipation, Routine, Start 07/20/19 20:54:00 EST Bleeding Precautions CBC w/ Auto Diff CBC w/ Auto Diff CBC w/ Auto Diff CMP Comprehensive Metabolic Panel Consult to Physician Consult to Physician Creatinine Urine Random Diabetes Education (Nursing) DVT VTE Prophylaxis Education EC Echo Complete ECG Facility Protocol Intake and Output Medication Discontinuation Instructions Notify Provider Intake and Output Notify Provider Laboratory Results Notify Provider of Change in Patient Condition Notify Provider of Change in Patient Condition Notify Provider of Change in Patient Condition Notify Provider Vital Signs NPO after Midnight PTT Heparin Protocol Pulse Oximetry Spot Check (Nursing) Resuscitation Status Sequential Compression Device Up Ad Chery US Renal Comp UUN Urea Nitrogen Urine Random Vital Signs VTE Prophylaxis - Medical Sequential Compression Device Start: 07/20/19 20:54:00 EST, Bilateral, Length: Knee High, While patient is in bed, Continuous Order (MIKAYLA THOMAS) Problem List/Past Medical History CHF Procedure/Surgical History Lap band, bladder tack, bilateral knee, wrist surgery Allergies codeine Social History Alcohol Alcohol Use History Yes. Date/Time of Last Drink: once a year. Substance Abuse Drug Use Hx: Yes. Use in Last 12 Months: Yes. Tobacco Years of Use: 30. Second Hand Smoke Exposure: Yes. 10 or more cigarettes (1/2 pack or more)/day in last 30 days Smoking Status. Never Smokeless Tobacco Status. Family History Brother with leaky valve , Mother with murmur Denies cancer history Lab Results Test Name Test Result Date/Time Sodium Level 140 mmol/L 2019 19:48 EST Potassium Level 2.8 mmol/L (Critical) 2019 19:48 EST Chloride Level 104 mmol/L 2019 19:48 EST Carbon Dioxide Level 29 mmol/L 2019 19:48 EST Anion Gap 10 2019 19:48 EST Glucose Level 118 mg/dL (High) 2019 19:48 EST Blood Urea Nitrogen 24 mg/dL (High) 2019 19:48 EST Creatinine Level 2.00 mg/dL (High) 2019 19:48 EST eGFR 32 mL/min/1.73m2 (Low) 2019 19:48 EST eGFR NonAfrican 26 mL/min/1.73m2 (Low) 2019 19:48 EST Bun/Creatinine 12.0 2019 19:48 EST Calcium Level 8.8 mg/dL 2019 19:48 EST Protein Total 6.3 Gram/dL (Low) 2019 19:48 EST Albumin Level 2.9 Gram/dL (Low) 2019 19:48 EST Globulin 3.4 Gram/dL 2019 19:48 EST A/G Ratio 0.9 (Low) 2019 19:48 EST Bilirubin Total 0.4 mg/dL 2019 19:48 EST Alk Phos 80 Units/Liter 2019 19:48 EST AST 13 Units/Liter 2019 19:48 EST ALT 13 Units/Liter 2019 19:48 EST Troponin I Ultra 0.082 ng/mL (High) 2019 19:48 EST ProBNP 26317 pg/mL (High) 2019 19:48 EST WBC 9.0 K/uL 2019 19:48 EST RBC 3.56 Million/uL (Low) 2019 19:48 EST Hgb 10.8 g/dL (Low) 2019 19:48 EST Hct 32.5 % (Low) 2019 19:48 EST MCV 91.3 fL 2019 19:48 EST MCH 30.3 pg 2019 19:48 EST MCHC 33.2 Gram/dL 2019 19:48 EST Platelet Count 148 K/uL (Low) 2019 19:48 EST MPV 12.9 fL (High) 2019 19:48 EST RDW 12.7 % 2019 19:48 EST Neut % 74.7 % (High) 2019 19:48 EST Neut # 6.68 K/uL (High) 2019 19:48 EST Lymph % 18.1 % (Low) 2019 19:48 EST Lymph # 1.62 x10(3)/uL 2019 19:48 EST Roosevelt % 5.0 % 2019 19:48 EST Roosevelt # 0.45 K/uL 2019 19:48 EST Eos % 1.6 % 2019 19:48 EST Eos # 0.14 x10(3)/uL 2019 19:48 EST Baso % 0.4 % 2019 19:48 EST Baso # 0.04 x10(3)/uL 2019 19:48 EST Slide Review No 2019 19:48 EST IG# 0.02 x10(3)/uL 2019 19:48 EST IG% 0.20 % 2019 19:48 EST PT 10.7 Second(s) 2019 19:48 EST INR 1.0 2019 19:48 EST PTT Heparin 42.0 Second(s) (Low) 2019 19:54 EST TSH 1.010 mcInt Units/mL 2019 19:48 EST Additional Documentation Code Status Start: 07/20/19 20:54:00 EST, Full Code, Continuous Order Electronically signed by [facility] Conversion Game Author Cerner at 10/28/2022 7:08 PM CDT documented in this encounter Plan of Treatment Upcoming Encounters Date Type Department Care Team (Late st Contact Info) Description 04/12/2025 7:30 AM EDT Hospital Encounter [facility] Operating Room [address] [place] [address] [place] [address] [place] [address] [address] [place] [address] 04/12/2025 7:30 AM EDT Anesthesia Event [facility] Operating Room [address] [place] [id number] Lucio Szymanski MD [address] [place], [place] [id number] 04/12/2025 7:30 AM EDT - 04/12/2025 8:55 AM EDT Surgery [facility] Operating Room [address] [place] [address] Bill Graham MD [address] [facility] [address] [place] [address] (LAPAROSCOPIC PERITONEAL DIALYSIS CATHETER INSERTION) Scheduled Procedures Name Priority Associated Diagnoses Date/Ti me LAPAROSCOPY, WITH PERITONEAL DIALYSIS CATHETER INSERTION Chronic kidney disease, stage V (HCC) 04/12/2025 7:30 AM EDT documented as of this encounter Visit Diagnoses Not on filedocumented in this encounter Care Teams Crime Scene Investigator Relationship Specialty Start Date End Date Félix Monroe, CLINICAL DERMATOLOGIST [address] [facility] [address] [place] [address] PCP - General Nurse Practitioner 08/25/22 documented as of this encounter
--- OUTSIDE RECORDS SUMMARY | 2025-04-11 11:01 | XMS_ITS | Encounter Summary ---
Author Organization [employer] ([place], [place], [place], [place]) Address [address] [address] Care Team Providers Care Game Manager Name Role Phone Félix Monroe Francisco RODRIGUEZ Primary Care Provider [phone] Encounter Details Date Type Department Care Team (Latest Contact Info) Description 03/14/2025 Travel Social History Tobacco Use Types Packs/Day Years [...] Date Josias rded Speak language other than Maltese at home Not on file 07/30/2023 Want [...] Description 04/12/2025 7:30 AM EDT Hospital Encounter [facility] Operating Room [address] [place] [address] Bill Graham MD [address] [facility] [address] [place] [address] 04/12/2025 7:30 AM EDT Anesthesia Event [facility] Operating Room [address] [place] [address] Lucio Szymanski MD [address] [place] [address] 04/12/2025 7:30 AM EDT - 04/12/2025 8:55 AM EDT Surgery [facility] Operating Room [address] [place] [address] [place] [address] [place] [address] (LAPAROSCOPIC PERITONEAL DIALYSIS CATHETER INSERTION) Scheduled Procedures Name Priority Associated Diagnoses Date/Ti me LAPAROSCOPY, WITH PERITONEAL DIALYSIS CATHETER INSERTION Chronic kidney disease, stage V (HCC) 04/12/2025 7:30 AM EDT documented as of this encounter Visit Diagnoses Not on filedocumented in this encounter Care Teams Game Manager Relationship Specialty Start Date End Date Félix Monroe, SPEEDER HAND [address] [facility] [address] [place] [address] PCP - General Nurse Practitioner 08/25/22 documented as of this encounter
--- OUTSIDE RECORDS SUMMARY | 2025-04-11 11:01 | XMS_ITS | Encounter Summary ---
Author Organization [employer] ([place], [place], [place], [place]) Address [address] [address] Care Team Providers Care Postal Inspector Name Role Phone Monroe Félix Francisco RODRIGUEZ Primary Care Provider [phone] Encounter Details Date Type Department Care Team (Late st Contact Info) Description 09/04/2019 Transcribed Document [facility] [place] Family Medicine [address] [place] [address] ProviderMaria Esther MD [address] [place], [place] [address] Social History Tobacco Use Types Packs/Day Years Used Date Smoking Tobacco: Never Assessed Comments Unknown Sex and Gender Information Value Date Recorded Sex Assigned at Not on file Legal Sex Female 6:53 PM CDT Gender Identity Not on file Sexual Orientation Not on file documented as of this encounter Miscellaneous Notes * Cerner Conversion Note - Historical ProviderMD - 09/04/2019 1:10 PM CASINO CAGE MANAGER Discharge Summary, PT Entered On: 09/04/2019 13:11 EST Performed On: 09/04/2019 13:10 EST by KAYLEE WRIGHT, PT Discharge Summary Discharge Summary Provider Notified : Physical Therapy Reason for Discharge : Discharge order Discharged to, Therapy : Home, with family care Discharge Summary Comment, PT : 6/7 goals met. Pt mod I sit to/from stand and amb x 395 ft supevision with a RWx during last assessment. KAYLEE WRIGHT, PT - 09/04/2019 13:10 EST Short Term Goals Mobility/Bed Mobility STG PT Grid Goal #1 Goal #2 Activity : Supine to sit Sit to stand Assist : Supervision or set-up Supervision or set-up Date to Meet : 09/07/2019 EST 09/06/2019 EST Goal Status : Goal met Goal met Date Met : 09/02/2019 EST 09/01/2019 EST KAYLEE WRIGHT, PT - 09/04/2019 13:10 EST KAYLEE WRIGHT, PT - 09/04/2019 13:10 EST Ambulation STG Grid Goal #1 Device : Walker, front wheel Distance : 200' Assist : Supervision or set-up Date to Meet : 09/09/2019 EST Goal Status : Goal met Date Met : 09/01/2019 EST KAYLEE WRIGHT, PT - 09/04/2019 13:10 EST Jail Goals Mobility/Bed Mobility LTG PT Grid Goal #1 Goal #2 Activity : Supine to sit Sit to stand Assist : Independent, modified Independent, modified Date to Meet : 09/14/2019 EST 09/13/2019 EST Goal Status : Goal met Goal met Date Met : 09/02/2019 EST 09/02/2019 EST KAYLEE WRIGHT, PT - 09/04/2019 13:10 EST KAYLEE WRIGHT, PT - 09/04/2019 13:10 EST Ambulation LTG Grid Goal #1 Goal #2 Device : Walker, front wheel None Distance : 375' 405' Assist : Independent, modified Independent, complete Date to Meet : 09/14/2019 EST 09/14/2019 EST Goal Status : Goal met Not met Date Met : 09/02/2019 EST Comment : Revised 09/02 KAYLEE HIDALGO, PT - 09/04/2019 13:10 EST KAYLEE WRIGHT, PT - 09/04/2019 13:10 EST Electronically signed by Nir [facility] Conversion Protective Services Social Worker Cerner at 10/28/2022 7:03 PM CDT documented in this encounter Plan of Treatment Upcoming Encounters Date Type Department Care Team (Late st Contact Info) Description 04/12/2025 7:30 AM EDT Hospital Encounter [facility] Operating Room [address] [place] [address] Bill Graham MD [address] [place] [address] [place] [address] 04/12/2025 7:30 AM EDT Anesthesia Event [facility] Operating Room [address] [place] [address] Lucio Szymanski MD [address] [place] [address] 04/12/2025 7:30 AM EDT - 04/12/2025 8:55 AM EDT Surgery [facility] Operating Room [address] [place] [phone] Bill Graham MD [address] [facility] [address] [place] [address] (LAPAROSCOPIC PERITONEAL DIALYSIS CATHETER INSERTION) Scheduled Procedures Name Priority Associated Diagnoses Date/Ti me LAPAROSCOPY, WITH PERITONEAL DIALYSIS CATHETER INSERTION Chronic kidney disease, stage V (HCC) 04/12/2025 7:30 AM EDT documented as of this encounter Visit Diagnoses Not on filedocumented in this encounter Care Teams Postal Inspector Relationship Specialty Start Date End Date Félix Monroe, SENIOR ENVIRONMENTAL TECHNICIAN [address] [facility] [address] [place] [address] PCP - General Nurse Practitioner 08/25/22 documented as of this encounter
--- OUTSIDE RECORDS SUMMARY | 2025-04-11 11:01 | XMS_ITS | Encounter Summary ---
Author Organization [employer] ([place], [place], [place], [place]) Address [address] [address] Care Team Providers Care Assembler Convertible Top Name Role Phone Félix Monroe APRN Primary Care Provider [phone] Encounter Details Date Type Department Care Team (Late st Contact Info) Description 09/04/2019 Transcribed Document [facility] Family Medicine [address] [place] [address] ProviderMaria Esther MD [address] [place] [address] Social History Tobacco Use Types Packs/Day Years Used Date Smoking Tobacco: Never Assessed Comments Unknown Sex and Gender Information Value Date Recorded Sex Assigned at Not on file Legal Sex Female 6:53 PM CDT Gender Identity Not on file Sexual Orientation Not on file documented as of this encounter Miscellaneous Notes * Cerner Conversion Note - Historical ProviderMD - 09/04/2019 5:00 AM HAND BUNCH MAKER Chart Check - Review Order Profile Entered On: 09/04/2019 3:28 EST Performed On: 09/04/2019 5:00 EST by Latia Gonzalez RN Chart Check All Active Orders Reviewed : Yes Latia Gonzalez RN - 09/04/2019 3:28 EST documented in this encounter Plan of Treatment Upcoming Encounters Date Type Department Care Team (Late st Contact Info) Description 04/12/2025 7:30 AM EDT Hospital Encounter [facility] Operating Room [address] [place] [address] Bill Graham MD [address] [facility] [address] [place] [address] 04/12/2025 7:30 AM EDT Anesthesia Event [facility] Operating Room [address] [place] [address] Lucio Szymanski MD [address] [place] [address] 04/12/2025 7:30 AM EDT - 04/12/2025 8:55 AM EDT Surgery [facility] Operating Room [address] [place] [address] Bill Graham MD [address] [facility] [address] [place] [address] (LAPAROSCOPIC PERITONEAL DIALYSIS CATHETER INSERTION) Scheduled Procedures Name Priority Associated Diagnoses Date/Ti me LAPAROSCOPY, WITH PERITONEAL DIALYSIS CATHETER INSERTION Chronic kidney disease, stage V (HCC) 04/12/2025 7:30 AM EDT documented as of this encounter Visit Diagnoses Not on filedocumented in this encounter Care Teams Assembler Convertible Top Relationship Specialty Start Date End Date Félix Monroe, PHARMACISTS [address] [facility] [address] [place] [address] PCP - General Nurse Practitioner 08/25/22 documented as of this encounter
--- OUTSIDE RECORDS SUMMARY | 2025-04-11 11:01 | XMS_ITS | Encounter Summary ---
Author Organization [employer] ([place], [place], [place], [place]) Address [address] [place] [address] Care Team Providers Care Certified Residential Medication Aide Name Role Phone Félix Monroe APRN Primary Care Provider [phone] Encounter Details Date Type Department Care Team (Late st Contact Info) Description 09/04/2019 Transcribed Document [facility] [place] [facility] [place] [address] ProviderMaria Esther MD [address] [place], [place] [address] Social History Tobacco Use Types Packs/Day Years Used Date Smoking Tobacco: Never Assessed Comments Unknown Sex and Gender Information Value Date Recorded Sex Assigned at Not on file Legal Sex Female 6:53 PM CDT Gender Identity Not on file Sexual Orientation Not on file documented as of this encounter Miscellaneous Notes * Cerner Conversion Note - Maria Esther Reyes MD - 09/04/2019 3:59 PM DIGITAL FORENSIC EXAMINER Patient: AWAIS SMITH Age: 49 years Sex: Female : 1970 Associated Diagnoses: None Author: DARRIUS TOUSSAINT APRN-CTS DISCHARGE SUMMARY Admission Date: Discharge Date: Attending: Dr. Alesha Valdez, CT Surgery PCP: Dr. Winston García CARD: Dr. Leonardo Madison Consultants: Dr. Mendoza Gallardo, Nephrology Brief History:This 49-year-old female has been admitted for severe mitral regurgitation with congestive heart failure, requiring hospitalization. She gradually deteriorated and has had class III congestive heart failure in spite of medical management. She is put forth at this time for mitral valve repair. She has known normal coronary arteries with a right-dominant system. PROCEDURE: \20>>1. Mitral valve repair. a. 28 mm CG annuloplasty band. 2. Ligation and excision of left atrial appendage. 3. Intraoperative transesophageal echocardiography. DX(Present on admission): 1. Severe mitral insufficiency. 2. Congestive heart failure, class III, systolic valvular ( Acute\chronic) 3. Chronic kidney disease, stage 4 ( pre-admission Creatinine 2.6) 4. Severe gastroesophageal reflux. 5. History of laparoscopic cardiac banding. 6. History of pulmonary edema. 7. Obstructive sleep apnea. 8. Systemic hypertension. 9. Chronic obstructive pulmonary disease. 10. Chronic ongoing tobacco abuse with nicotine dependency\withdrawal 11. Hx of Thrombocytopenia 12. RLS 13. Past Hx of TIA EF 50-55% per intraop RIA POSTOP DX: Bradycardia requiring temporary pacing Overcoagulation ( suspect coumadin sensitivity) Subjective 08/30/19: POD#1 The pt is OOB in [...] complaints O2???5 L, PW/paced???80 as backup NSR???80 09/02/19 POD #4 steady progress, without SOB or other complaints O2???off, NSR???67 PW???intact/disconnected 09/03/19 POD #5 steady progress, without SOB or other complaints, NSR???71 PW???INTACT 09/04/19 POD #6 no complaints wants to go home today Health Status Allergies: Allergic Reactions (Selected) Severity Not Documented Codeine- Welts, nausea and hives. Current medications.Problem list. Objective VS/Measurements Vital Measurements 09/04/2019 9:10 EST Systolic Blood Pressure 107 mmHg Diastolic Blood Pressure 72 mmHg Heart Rate Monitored 72 bpm Oxygen Saturation 96 % Oxygen Therapy Mode Room air General: Alert and oriented. Respiratory: Lungs are clear to auscultation. Cardiovascular: Normal rate, Regular rhythm. Gastrointestinal: Soft, Non-tender, Non-distended. Sternal incision>>C D I Tolerates PO Voiding Last BM>> 2\23\20 Ambulates independently Results Review General results Today's results 09/04/2019 3:12 EST Sodium Level 137 mmol/L Potassium Level 3.3 mmol/L LOW Chloride Level 100 mmol/L LOW Carbon Dioxide Level 33 mmol/L HI Anion Gap 7 LOW Glucose Level 106 mg/dL Blood Urea Nitrogen 21 mg/dL Creatinine Level 2.10 mg/dL HI eGFR 30 mL/min/1.73m2 LOW eGFR NonAfrican 25 mL/min/1.73m2 LOW Bun/Creatinine 10.0 Calcium Level 8.7 mg/dL WBC 8.3 K/uL RBC 3.19 Million/uL LOW Hgb 9.7 g/dL LOW Hct 29.3 % LOW MCV 91.8 fL MCH 30.4 pg MCHC 33.1 Gram/dL Platelet Count 206 K/uL MPV 13.0 fL HI RDW 14.3 % Neut % 66.3 % Neut # 5.52 K/uL Lymph % 21.8 % Lymph # 1.81 x10(3)/uL York % 8.3 % York # 0.69 K/uL Eos % 2.6 % Eos # 0.22 x10(3)/uL Baso % 0.5 % Baso # 0.04 x10(3)/uL Slide Review No IG# 0.04 x10(3)/uL IG% 0.50 % PT 49.8 Second(s) HI INR 4.7 HI Interpretation: Radiology Results (Last 48 hours) [id number] -- 08/29/2019 07:08 CR Chest 1 Vw Portable (09/03/2019 07:28) [...] and effusion with improvedleft lower lobe atelectasis. CR Chest 1 Vw Portable (09/04/2019 06:50) Result: ONE VIEW CHEST:INDICATION: Pneumothorax.COMPARISON: 09/03/2019FINDINGS: Right basilar pleural-parenchymal disease is unchanged. There is noevidence of pneumothorax.IMPRESSION: No significant interval change. Impression and Plan VTE STATUS>>SCDS TOBACCO CESSATION discuused with patient HOSPITAL COURSE Admission Mitral Valve Repair ( see above) 08/30/19 POD#1 Daily PT/INR Coumadin 5mg PO Daily MT D/C without any immediate complications Probable D/C Mediastinal ERWIN tomorrow. Improvement in right apical ptx when ERWIN returned to wall suction Paced 90 C.I. 2.0 D/C NG 08/31/19 POD#2 INR 1.6 Paced 80 C.I. >2.9 ERWIN drain D/C without any immediate complications and the pt tolerated well Transfer to [facility] 09/01/19 NSR???80, PW/paced 80 backup INR???4.6 [...] per Dr. Valdez Nephrology CKD4 Cr- 2.0 09/04/19 Telemetry>> sinus O2 sat 94% on RA INR 4.7 ( 6.8 yesterday) Creatinine 2.2 ( 2.6 on pre-admission); F\U with Dr. Gallardo in 2 weeks K+ 3.3>> pt given KDur 40 meq Pt discussed with Dr. Howell>> agrees with discharge plan Pacing wire retracted and clipped withour problems Pt seen and evaluated by Dr. Valdez>> stable discharge to home today No coumadin secondaryt to sensitivity Stop Lasix and spiralactone now and at discharge DISCHARGE SUMMARY 1) Discharge to home 2) Diet: Healthy Heart 3) Acitivity: Light ( no lifting greater than 10 lbs; no pushing or pulling) 4) Cardiac Rehab: [facility] 5) Discharge Follow Up WINSTON GARCÍA - 02:20 PM MENDOZA GALLARDO - 02:30 PM [facility] - Within 6 weeks ALESHA VALDEZ - 09:00 AM LEONARDO MADISON - 08:45 AM 6) Discharge Medications (8) Active acetaminophen-HYDROcodone 325 mg-5 mg oral tablet 1 Tab, PRN, Oral, Q4H amLODIPine 5 mg oral tablet 5 mg = 1 Tab, Oral, Daily aspirin 81 mg oral delayed release tablet 81 mg = 1 Tab, Oral, Daily carvedilol 25 mg, Oral, BID nicotine 21 mg/24 hr transdermal film, extended release 1 Patch, TransDermal, Daily pantoprazole 40 mg, Oral, Daily Requip 1 mg oral tablet , Oral, At Bedtime Senokot 8.6 mg oral tablet 17.2 mg = 2 Tab, Oral, BID Above Fax'd to Dr. García, Dr. Madison, and Dr. Gallardo Addendum: pt called back after discharge that she was out of home meds, and needed prescriptions Rx for above Amlodipine, Carvedilol, Nicotine patch, panatoprazole, and requip called to [facility] [phone] documented in this encounter Plan of Treatment Upcoming Encounters Date Type Department Care Team (Late st Contact Info) Description 04/12/2025 7:30 AM EDT Hospital Encounter [facility] Operating Room [address] [place] [address] Bill Graham MD [address] [place] [address] [address] [place] [id number] 04/12/2025 7:30 AM EDT Anesthesia Event [facility] Operating Room [address] [place] [address] Lucio Szymanski MD [address] [place] [phone] 04/12/2025 7:30 AM EDT - 04/12/2025 8:55 AM EDT Surgery [facility] Operating Room [address] [place] [id number] [place] [address] [place] [address] [address] [place] [id number] (LAPAROSCOPIC PERITONEAL DIALYSIS CATHETER INSERTION) Scheduled Procedures Name Priority Associated Diagnoses Date/Ti me LAPAROSCOPY, WITH PERITONEAL DIALYSIS CATHETER INSERTION Chronic kidney disease, stage V (HCC) 04/12/2025 7:30 AM EDT documented as of this encounter Visit Diagnoses Not on filedocumented in this encounter Care Teams Certified Residential Medication Aide Relationship Specialty Start Date End Date Félix Monroe, [employer] [address] [facility] [address] [place] [address] PCP - General Nurse Practitioner 08/25/22 documented as of this encounter
--- OUTSIDE RECORDS SUMMARY | 2025-04-11 11:01 | XMS_ITS | Clinical Summary ---
Author Organization Healthcare Address [address] [place] [address] Care Team Providers Care Car Wash Attendant Automatic Name Role Phone Az David MD Primary Care Provider + [phone] Allergies Active Allergy Reactions Criticality Noted Date Comments Codeine Hives,Unknown - Cassie ent states they do not know rxn details Medium 04/16/2016 Medications Acetaminophen Extra Strength 500 MG tablet Take 1 tablet by mouth every 6 hours as needed. 3 Active Aspirin Low Dose 81 MG EC tablet Take 1 tablet by mouth daily. 3 Active fluticasone (Flonase) 50 MCG/ACT nasal spray Administer 2 sprays into each nostril daily as needed for allergies. Active cetirizine (ZyrTEC) 10 MG tablet Take 1 tablet (10 mg) by mouth every night. 30 tablet 11 3 Active Velphoro 500 MG chewable tablet Chew 1 tablet 3 (three) times a day. 4 Active calcitriol (Rocaltrol) 0.5 MCG capsule Take 1 capsule by mouth 3 times a week. Active aMILoride (Midamor) 5 MG tablet Take 1 tablet (5 mg) by mouth 1 (one) time each day. 30 tablet 1 4 Active atorvastatin (Lipitor) 40 MG tablet Take 1 tablet (40 mg) by mouth every night. 30 tablet 3 4 Active sodium bicarbonate 650 MG tablet Take 2 tablets (1,300 mg) by mouth 1 (one) time each day. 30 tablet 3 4 Active pantoprazole (Protonix) 40 MG EC tablet Take 1 tablet by mouth daily before breakfast. Do not crush, chew, or split. Active methIMAzole (Tapazole) 10 MG tablet Take 1 tablet (10 mg) by mouth 1 (one) time each day. 30 tablet 4 Active polyethylene glycol (Miralax) 17 g packet Take 17 g by mouth 2 times a day. 180 packet 3 5 Active Additional Information Patient not taking.Reported on 03/08/2025 senna (Senokot) 8.6 MG tablet Take 2 tablets by mouth nightly. 180 tablet 3 5 Active iron sucrose 200 mg in sodium chloride 0.9 % 90 mL IVPB Infuse 200 mg into a venous catheter. 5 10/26/19 26 Active bumetanide (Bumex) 1 MG tablet Take 3 tablets by mouth 2 times a day. Please take 3 mg twice daily on your NON dialysis days (Wednesday//Wednesday/Wed) 180 tablet 5 03/01/20 26 Active metoprolol succinate XL (Toprol-XL) 50 MG 24 hr tablet Take 1 tablet by mouth 2 times a day. Do not crush or chew. 60 tablet 5 03/01/20 26 Active warfarin (Coumadin) 4 MG tablet Take 1 tablet by mouth daily. Please take 4 mg every day starting Wednesday03/02/2025 30 tablet 5 03/01/20 26 Active magnesium oxide (Mag-Ox) 400 (240 Mg) MG tablet Take 1 tablet by mouth daily. 30 tablet 5 Active isosorbide-hydrA LAZINE (BiDil) 20-37.5 MG tablet Take 2 tablets by mouth 3 times a day. 180 tablet 5 Active metOLazone (Zaroxolyn) 5 MG tablet Take 1 tablet by mouth as needed (for increased weight, abdominal swelling, on non dialysis days). 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 Persistent atrial fibrillation 06/02/2024 Intracardiac thrombosis, not elsewhere classifie d 06/01/2024 Unspecified atrial flutter 06/01/2024 Chronic anticoagulation 05/29/2024 HFrEF (heart failure with reduced ejection fract ion) 08/20/2023 Proteinuria, unspecified 08/19/2023 Other disorders of phosphorus metabolism Unspecified protein-calorie malnutrition 024 Secondary hyperparathyroidism of [...] Acute on chronic systolic heart failure 06/17/20 22 Elevated serum creatinine 06/17/2022 Elevated troponin 06/17/2022 Hypokalemia 06/17/2022 Anemia, chronic disease 03/19/2021 RLS (restless legs syndrome) 03/19/2021 Stage 3b chronic kidney disease 03/19/2021 NSTEMI (non-ST elevated myocardial infarction) 0 02/18/2021 Chronic obstructive pulmonary disease 12/23/2020 Gastroesophageal reflux disease 09/01/2019 Basal cell carcinoma of nose 04/16/2016 Encounters Date Type Department Care Team Description 04/05/2025 Telephone [facility] 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; Anticoagulation management encounter 03/20/2025 7:44 AM EDT - 03/20/2025 11:59 PM EDT Hospital Encounter Cardiac Imaging [address] [place] [address] Biventricular ICD (implantable cardioverter-defibril lator) in place Discharge Disposition: Home or Self Care 03/20/2025 Anticoagulation - Warfarin Visit [address] [phone] Sarai Irizarry, PharmD H/O mitral valve replacement (Primary Dx); correction (current) use of anticoagulants; Anticoagulation management encounter 03/20/2025 Travel 03/15/[address] [phone] Jocelynn Patel, PharmD 03/08/2025 3:20 PM EDT Office Visit [address] [phone] Lenore Cosme MD NICM (nonischemic cardiomyopathy) (CMS/HCC) (Primary Dx) 03/08/2025 Anticoagulation - Warfarin Visit [address] [place] [phone] Sarai Irizarry, PharmD Acute decompensated heart failure (CMS/HCC) (Primary Dx); Anticoagulation management encounter; correction (current) use of anticoagulants; H/O mitral valve replacement 03/08/2025 Travel 03/05/2025 Telephone [facility] [address] [place] [address] Stephany Leblanc 03/01/2025 Travel 02/27/2025 Travel 02/24/2025 Travel 02/23/2025 7:51 AM EDT - 03/01/2025 4:36 PM EDT Hospital Encounter [facility] [address] [place] [phone] German Richardson MD Abraham, Sonu S, MD Kolodziej, Andrew R, MD ESRD needing dialysis (CMS/HCC) (Primary Dx); Acute on chronic diastolic heart failure (CMS/HCC); Acute decompensated heart failure (CMS/HCC) Discharge Disposition: Home or Self Care 02/23/2025 Travel 02/02/2025 2:38 PM EDT - 02/02/2025 11:59 PM EDT Hospital Encounter [facility] [address] [place] [phone] Intra-abdominal infection Discharge Disposition: Home or Self Care 02/02/2025 Travel 02/01/2025 2:20 PM EDT Office Visit [facility] [address] [facility] [address] [place] [phone] Lenore Cosme MD HFrEF (heart failure with reduced ejection fraction) (CMS/HCC) (Primary Dx); Essential hypertension; ESRD needing dialysis (CMS/HCC) 02/01/2025 12:51 PM EDT - 02/01/2025 11:59 PM EDT Hospital Encounter Cardiac Imaging [address] [place] [phone] Discharge Disposition: Home or Self Care 02/01/2025 Travel from Last 3 Months Immunizations Immunization Administration Dates Next Due Influenza, injectable, quadr ivalent, preservative free 09/04/2019 Influenza, seasonal, injectable 06/01/2024 Moderna COVID-19 Vaccine (Re d Cap) 12+ years 12/10/2020,10/25/2020,10/10/2020,2020,09/09/2020 Pneumococcal 20-stef Conj Vaccine 06/29/2024,03/12 Family History Medical History Relation Name Comments Kidney disease Brother Kidney cancer Mother Relation Name Status Comments Brother Mother Social History Tobacco Use Types Packs/Day Years [...] any time in the past 12 m [facility], were you homeless or living in a fpc (including now)? No 02/26/2025 CAGE ASSESSMENT Answer [...] drink first t mohamud in the morning ([employer] OFFICER) to steady your nerves or to get [...] Pulse 80 03/08/2025 4:07 PM EDT Temperature 36.5 C (97.7 F) 03/01/2025 4:08 PM EDT Respiratory Rate 21 03/01/2025 4:08 PM EDT Oxygen Saturation 98% 03/08/2025 4:07 PM EDT Inhaled Oxygen Concentration - - Weight 80.6 kg (177 lb 11.1 oz) 03/08/2025 3:59 PM EDT Height 167.6 cm (5' 6 ) 03/08/2025 3:59 PM EDT Body Mass Index 28.68 03/08/2025 3:59 PM EDT Plan of Treatment Upcoming Encounters Date Type Department Care Team (Late st Contact Info) Description 05/24/2025 1:40 PM EST Office Visit [facility] [place] [address] [facility] [place] [phone] Lenore Cosme MD [address] [place] [phone] 08/02/2025 1:40 PM EST Office Visit [facility] [address] [facility] [place] [phone] Lenore Cosme MD [address] [place] [address] Health Maintenance Due Date Last Done Comments [facility]-Medicare Annual Wellness (AWV) 1970 [facility]-/Child/Adol SDOH Screenings 1970 [facility]-DTaP,Tdap,and Td Vaccines (1 - Tdap) 1989 [facility]-Zoster Vaccines (1 of 2) 1989 [facility]-Hepatitis B Vaccines (1 of 3 - Risk Dialysis 4-dose series) 1990 CT Colonography 2015 Colonoscopy 2015 FIT 2015 FOBT 2015 Sigmoidoscopy 2015 [facility]-Breast Cancer Screening 09/29/2024 09/29/2022, 0 09/29/2022 [facility]-OMOAM-42 Vaccine ( season) 2025 07/11/2021, 12/10/2020, 10/25/2020, Additional history exists [facility]-Influenza Vaccine (#1) 2025 06/01/2024, FIT-DNA 06/30/2025 06/30/2022 [facility]-Colorectal Cancer Screening 06/30/2025 [facility]- SDOH Screenings 08/29/2025 [facility]-Adult SDOH Screenings 08/29/2025 02/26/2025 [facility]-Depression Screening 02/01/2026 02/01/2025, 11/2023 [facility]-Cervical Cancer Screening Discontinued [facility]-HPV/Cotest Discontinued 03/04/1998 [facility]-Pap Smear Discontinued 03/04/1998 [facility]-Diabetes: Hemoglobin A1C Discontinued 03/23/2023, 06/27/2021, 02/19/2021 [facility]-Pneumococcal Vaccine: 50+ Years Completed 06/29/2024, 03/23/2023 [facility]-HIV Screening Completed 11/15/2024, 04/16/2023 [facility]-Hepatitis C Screening Completed 2024, 11/15/2024, 04/16/2023, Additional history exists [facility]-Obesity Intervention Completed 025, 03/20/2025, 03/08/2025, Additional history exists HPV Vaccines Aged Out No longer eligi ble based on patient's age to complete this topic [facility]-HIB Vaccines Aged Out No longer e ligible based on patient's age to complete this topic [facility]-Hepatitis A Vaccines Aged Out No longer eligible based on patient's age to complete this topic [facility]-IPV Vaccines Aged Out No longer e ligible based on patient's age to complete this topic [facility]-Rotavirus Vaccines Aged Out No lo nger eligible based on patient's age to complete this topic Medical Devices Implanted Type Area Cement Mason Device Identifier Shelf Expiration Date Model / Serial / Lot Acticor 7 Hf-T Qp Press Technician-Dx Defibrillator Implanted:Qty: 1 on 06/05/2024 by Robert Ramirez MD at [facility] Implant 09/08/2025 [id number] / [id number] / [id number] Envelope Tyrx Icd Large - [id number] Implanted:Qty: 1 on 06/05/2024 by Robert Ramirez MD at [facility] [id number] 03/05/2025 [id number] / / [id number] Lead Sentus L85 Lv Mri Lead - [id number] - [id number] Implanted:Qty: 1 on 06/05/2024 by Robert Ramirez MD at [facility] [id number] 01/08/2026 [id number] / [id number] / [id number] Procedures Procedure Name Priority Date/Time Associated Diagnosis Comments EXTERNAL PROTHROMBIN TIME (PT)/INR Routine 03/28/2025 CARDIAC DEVICE CHECK - REMOTE - ICD Routine 03/20/2025 7:46 AM EDT Biventricular ICD (implantable cardioverter-defibr illator) in place EXTERNAL PROTHROMBIN TIME (PT)/INR Routine 03/19/2025 POCT INR Routine 03/08/2025 4:24 PM EDT Acute decompensated heart failure (CMS/HCC) Anticoagulation management encounter correction (current) use of anticoagulants H/O mitral valve replacement POCT INR Routine 03/08/2025 3:15 PM EDT Acute decompensated heart failure (CMS/HCC) US ABDOMEN FOCUSED REGION STAT 03/01/2025 1:22 PM EDT HEMODIALYSIS INPATIENT Routine 03/01/2025 7:34 AM EDT ESRD needing dialysis ([facility]) ANTI XA LEVEL UNFRACTIONATED HEPARIN Routine 03/01/2025 3:27 AM EDT PROTHROMBIN TIME(PT) / INR Routine 03/01/2025 3:27 AM EDT CBC W/O DIFFERENTIAL Routine 03/01/2025 3:27 AM EDT PHOSPHORUS, PLASMA Routine 03/01/2025 3: 27 AM EDT MAGNESIUM, PLASMA Routine 03/01/2025 3:2 7 AM EDT BASIC METABOLIC PANEL, PLASMA Routine 03/01/2025 3:27 AM EDT PROTHROMBIN TIME(PT) / INR Routine 02/28/2025 4:45 PM EDT OXYGEN THERAPY Routine 02/28/2025 8:00 AM EDT PROTHROMBIN TIME(PT) / INR Routine 02/28/2025 3:52 AM EDT CBC W/O DIFFERENTIAL Routine 02/28/2025 3:52 AM EDT PHOSPHORUS, PLASMA Routine 02/28/2025 3: 52 AM EDT MAGNESIUM, PLASMA Routine 02/28/2025 3:5 2 AM EDT BASIC METABOLIC PANEL, PLASMA Routine 02/28/2025 3:52 AM EDT ANTI XA LEVEL UNFRACTIONATED HEPARIN Timed 02/28/2025 3:52 AM EDT OXYGEN THERAPY Routine 02/27/2025 8:00 PM EDT HEMODIALYSIS INPATIENT Routine 02/27/2025 8:50 AM EDT OXYGEN THERAPY Routine 02/27/2025 8:00 AM EDT ANTI XA LEVEL UNFRACTIONATED HEPARIN Timed 02/27/2025 3:11 AM EDT PROTHROMBIN TIME(PT) / INR Routine 02/27/2025 3:11 AM EDT CBC W/O DIFFERENTIAL Routine 02/27/2025 3:11 AM EDT PHOSPHORUS, PLASMA Routine 02/27/2025 3: 11 AM EDT MAGNESIUM, PLASMA Routine 02/27/2025 3:1 1 AM EDT BASIC METABOLIC PANEL, PLASMA Routine 02/27/2025 3:11 AM EDT OXYGEN THERAPY Routine 02/26/2025 8:00 PM EDT ANTI XA LEVEL UNFRACTIONATED HEPARIN Pending Discharge 02/26/2025 8:46 AM EDT OXYGEN THERAPY Routine 02/26/2025 8:00 AM EDT ANTI XA LEVEL UNFRACTIONATED HEPARIN Routine 02/26/2025 1:59 AM EDT PROTHROMBIN TIME(PT) / INR Routine 02/26/2025 1:59 AM EDT CBC W/O DIFFERENTIAL Routine 02/26/2025 1:59 AM EDT PHOSPHORUS, PLASMA Routine 02/26/2025 1:59 AM EDT MAGNESIUM, PLASMA Routine 02/26/2025 1:5 [...] UNFRACTIONATED HEPARIN Timed 02/24/2025 3:55 PM EDT [facility] DIALYSIS ULTRAFILTRATION ORDER Routine 02/24/2025 1:21 PM [...] OXYGEN THERAPY Routine 02/23/2025 8:00 PM EDT PHOSPHORUS, PLASMA Routine 02/23/2025 7: 28 PM EDT MAGNESIUM, PLASMA Routine 02/23/2025 7:2 8 PM EDT BASIC METABOLIC PANEL, PLASMA Routine 02/23/2025 7:28 PM EDT PROTHROMBIN TIME(PT) / INR STAT 02/23/2025 7:28 PM EDT CBC W/O DIFFERENTIAL STAT 02/23/2025 7:28 PM EDT ANTI XA LEVEL UNFRACTIONATED HEPARIN Timed 02/23/2025 7:28 PM EDT HEMODIALYSIS INPATIENT Routine 02/23/2025 3:07 PM EDT PROTHROMBIN TIME(PT) / INR STAT 02/23/2025 2:10 PM EDT OXYGEN THERAPY Routine 02/23/2025 1:11 PM EDT OXYGEN THERAPY Routine 02/23/2025 1:11 PM EDT OXYGEN THERAPY Routine 02/23/2025 1:11 PM EDT XR CHEST 2 VIEWS STAT 02/23/2025 10:44 AM EDT BLOOD GAS PANEL, VENOUS STAT 02/23/2025 10:15 AM EDT N-TERMINAL PROBNP, PLASMA STAT 02/23/2025 10:15 AM EDT PROCALCITONIN, PLASMA STAT 02/23/2025 10:15 AM EDT PHOSPHORUS, PLASMA STAT 02/23/2025 10:15 AM EDT MAGNESIUM, PLASMA STAT 02/23/2025 10:15 AM EDT COMPREHENSIVE METABOLIC PANEL, PLASMA STAT 02/23/2025 10:15 AM EDT CBC WITH AUTO DIFFERENTIAL STAT 02/23/2025 10:15 AM EDT ECG ADULT STAT 02/23/2025 7:56 AM EDT [facility] ED POCUS PROCDOC Routine 02/23/2025 7:[address] ABDOMEN PELVIS W IV CONTRAST Routine 02/02/2025 3:21 PM EDT Intra-abdominal infection ECHO, ADULT TRANSTHORACIC COMPLETE W/ CONTRAST Routine 02/01/2025 1:54 PM EDT ACUTE HEPATITIS PANEL Routine 11/22/2024 10:53 AM EDT ED HIV 1/2 ANTIBODY/ANTIGEN SCREEN WITH REFLEX TO HIV I/II DIFFERENTIATION STAT 11/15/2024 2:51 PM EDT HEMOGLOBIN A1C Add-On 03/23/2023 9:02 AM EDT CYTO DATA CONVERSION Routine 03/04/1998 12:00 AM EDT from Last 3 Months or Most Recently Relevant to Health Maintenance Results * External Prothrombin Time (PT)/INR (03/28/2025) Only the most recent of2 resultswithin the time period is included. External INR - Internormal Ratio 1.7 EXTERNAL LAB External Prothrombin Time (PT) EXTERNAL LAB Blood Venous blood specimen / Unknown 03/28/2025 us Historical Provider POINT OF CARE TEST ENTER/PADDY T ORDERABLES Final Result EXTERNAL LAB * CARDIAC DEVICE CHECK - REMOTE - ICD (03/20/2025 7:46 AM EDT) Anatomical Region Laterality Modality Other Narrative 03/20/2025 12:30 PM EDT [facility] - Device Clinic Remote CIED Report Name: Awais Smith Date: 03/20/2025 : 1970 Age: 54 y.o. Viewing Cardiology Provider: Connor Iverson APRN, DNP Reporting period: Reporting period is the last 91 days, with at least 30 days of remote monitoring. Interim reports, if any, reviewed and addressed previously; see remote alert entries for more details. 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 See full report in Media. Marilyn Chamorro Zayra RODRIGUEZ CV IMPLANTABLE CARDIAC DEV ICE PROCEDURES Final Result * (ABNORMAL) POCT INR (03/08/2025 4:24 PM EDT) Only the most recent of2 resultswithin the time period is included. Prothrombin Time POCT INR 2.20(A) 0.90 - 1.10 Blood Venous blood specimen / Unknown 03/08/2025 4:24 PM EDT [facility] Provider POINT OF CARE TEST ENTER/PADDY T ORDERABLES Final Result * US Abdomen Focused Region Other (03/01/2025 [...] signing this report, I, the attending physician, wenceslao I have personally reviewed the images/data for the aboveexamination(s) and agree with the final edited report. Drafted by Kishore Reyes MD on 03/01/2025 2:29 PM Final report signed by Renetta Rodriguez MD on 03/01/2025 5:22 PM us Jocy Kennedy APRN, DNP IMG US PROCEDURES Final Re sult * (ABNORMAL) Prothrombin Time/INR (03/01/2025 3:27 AM EDT) Only the most recent of9 resultswithin the time period is included. Prothrombin Time 34.8(H) 12.0 - 14.3 sec LAB COAGULATION METHOD 03/01/2025 3:[address] [facility] INR 3.4(H) 0.9 - 1.1 LAB COAGULATION METHOD 03/01/2025 3:[address] [facility] Blood Venous blood specimen / Unknown Venipuncture / Unknown 03/01/2025 3:27 AM EDT 03/01/2025 3:[address] [facility] - 03/01/2025 3:49 AM EDT OPTIMAL INR RANGES FOR PATIENT ON ORAL ANTICOAGULANT THERAPY Prevention of venous thromboembolism INR 2.0 to 3.0 In patients with heart disease: Atrial fibrillation INR 2.0 to 3.0 Valvular heart disease INR 2.0 to 3.0 Tissue heart valves INR 2.0 to 3.0 Mechanical prosthetic valves INR 2.5 to 3.5 Prevention of recurrent CA INR 2.5 to 3.5 Ro Toro ANSWERING SERVICE AGENT, DNP LAB BLOOD ORDERABLES Fi nal Result Performing Organization Address [facility] Co de Phone Number [facility] [address] [place] [address] * Anti Xa Level Unfractionated Heparin (03/01/2025 3:27 AM EDT) Only the most recent of11 resultswithin the time period is included. Anti Xa Level Unfractionated Heparin 0.36 <1.00 IU/mL LAB COAGULATION METHOD 03/01/2025 3:[address] [facility] Blood Venous blood specimen / Unknown Venipuncture / Unknown 03/01/2025 3:27 AM EDT 03/01/2025 3:[address] [facility] - 03/01/2025 3:49 AM EDT Therapeutic Range: UFH Full Dose and ACS/CA protocols*: 0.30 - 0.70 IU/mL UFH Low Dose protocol*: 0.25 - 0.50 IU/mL UFH prophylaxis: Not established Edy Brambila MD LAB BLOOD ORDERABLES Final Result Performing Organization Address [facility] de Phone Number [facility] [address] [place] [address] * (ABNORMAL) CBC W/O Differential (03/01/2025 3:27 AM EDT) Only the most recent of7 resultswithin the time period is included. WBC Count 5.65 3.70 - 10.30 10*3/uL LAB HEMATOLOGY METHOD 03/01/2025 3:[address] [facility] RBC Count 3.41(L) 3.90 - 5.20 10*6/uL LAB HEMATOLOGY METHOD 03/01/2025 3:[address] [facility] HGB 10.1(L) 11.2 - 15.7 g/dL LAB HEMATOLOGY METHOD 03/01/2025 3:[address] [facility] HCT 32.6(L) 34.0 - 45.0 % LAB HEMATOLOGY METHOD 03/01/2025 3:[address] [facility] Platelet Count 166 155 - 369 10*3/uL LAB HEMATOLOGY METHOD 03/01/2025 3:[address] [facility] MCV 96 79 - 98 fL LAB HEMATOLOGY METHOD 03/01/2025 3:[address] [facility] MCH 29.6 26.0 - 32.0 pg LAB HEMATOLOGY METHOD 03/01/2025 3:[address] [facility] MCHC 31.0 30.7 - 35.5 g/dL LAB HEMATOLOGY METHOD 03/01/2025 3:[address] [facility] RDW 17.7(H) 11.5 - 14.5 % LAB HEMATOLOGY METHOD 03/01/2025 3:[address] [facility] MPV 11.8 8.8 - 12.5 fL LAB HEMATOLOGY METHOD 03/01/2025 3:[address] [facility] nRBC 0.0 <=0.0 per 100 WBCs LAB HEMATOLOGY METHOD 03/01/2025 3:[address] [facility] Blood Venous blood specimen / Unknown Venipuncture / Unknown 03/01/2025 3:27 AM EDT 03/01/2025 3:31 AM EDT us Ro Toro ANSWERING SERVICE AGENT, DNP LAB BLOOD ORDERABLES Fi nal Result [facility] [address] [place] [address] * (ABNORMAL) Phosphorus (03/01/2025 3:27 AM EDT) Only the most recent of9 resultswithin the time period is included. Phosphorus, Plasma 5.2(H) 2.5 - 4.5 mg/dL 03/01/2025 4:[address] [facility] Blood Venous blood specimen / Unknown Venipuncture / Unknown 03/01/2025 3:27 AM EDT 03/01/2025 3:31 AM EDT us Ro Toro APRN, LOLY LAB BLOOD ORDERABLES Fi nal Result Performing Organization Address City/[facility] Co de Phone Number [facility] [address] [place] [address] * Magnesium (03/01/2025 3:27 AM EDT) Only the most recent of9 resultswithin the time period is included. [facility] Magnesium, Plasma 1.9 1.9 - 2.4 mg/dL 03/01/2025 4:[address] [facility] Blood Venous blood specimen / Unknown Venipuncture / Unknown 03/01/2025 3:27 AM EDT 03/01/2025 3:31 AM EDT us Ro Toro APRN, LOLY LAB BLOOD ORDERABLES [facility] Result Performing Organization Address [facility] de Phone Number [facility] [address] [place] [address] * (ABNORMAL) Basic metabolic panel (03/01/2025 3:27 AM EDT) Only the most recent of8 resultswithin the time period is included. [facility] Glucose, Plasma 103(H) 74 - 99 mg/dL 03/01/2025 4:[address] [facility] BUN, Plasma 41(H) 7 - 21 mg/dL 03/01/2025 4:[address] [facility] Creatinine, Plasma 3.84(H) 0.60 - 1.10 mg/dL 03/01/2025 4:[address] [facility] BUN/Creatinine Ratio 11 03/01/2025 4:[address] [facility] Sodium, Plasma 136 136 - 145 mmol/L 03/01/2025 4:[address] [facility] Potassium, Plasma 4.3 3.6 - 4.9 mmol/L 03/01/2025 4:[address] [facility] Chloride, Plasma 99 97 - 107 mmol/L 03/01/2025 4:[address] [facility] CO2, Plasma 22 22 - 29 mmol/L 03/01/2025 4:[address] [facility] Anion Gap 15 6 - 16 mmol/L 03/01/2025 4:[address] [facility] Total Calcium, Plasma 9.0 8.9 - 10.2 mg/dL 03/01/2025 4:[address] [facility] eGFRcr 13.3 mL/min/1.7 3m*2 03/01/2025 4:[address] [facility] Comment:Reported eGFRcr in m L/min/1.73m2 is based the CKD-EPI 2020 equation that does not use a race coefficient. Blood Venous blood specimen / Unknown Venipuncture / Unknown 03/01/2025 3:27 AM EDT 03/01/2025 3:31 AM EDT us Ro Toro APRN, LOLY LAB BLOOD ORDERABLES Fi nal Result Performing Organization Address City/[facility]/ZIP Co de Phone Number [facility] [address] [place] [address] * Lavender Top (02/25/2025 4:45 AM EDT) Extra Hold for add-ons 02/25/2025 7:[address] [facility] Comment:Auto resulted. Blood Venous blood specimen / Unknown 02/25/2025 4:45 AM EDT 02/25/2025 4:45 AM EDT us Oneal Green MD LAB BLOOD ORDERABLES Final Res ult [facility] [address] [place] [address] * (ABNORMAL) Hepatitis B Surface Antibody, Quantitative (02/24/2025 3:55 PM EDT) Hepatitis B Surface Antibody, Quantitative 238.80(H) NonReacti ve: <8, Grayzone: 8 - <12, Reactive: >= 12 mIU/mL 02/24/2025 5:[address] [facility] Comment: Reactive. Individual is considered immune to HBV infection. Blood Venous blood specimen / Unknown Venipuncture / Unknown 02/24/2025 3:55 PM EDT 02/24/2025 4:24 PM EDT us Oneal Green MD LAB BLOOD ORDERABLES Final Res ult Performing Organization Address [facility] [facility] Co de Phone Number [facility] [address] [place] [address] * Hepatitis B Surface Antigen (02/24/2025 3:55 PM EDT) Pathologist [facility] Hepatitis B Surf Antigen Negative Negative 02/24/2025 6:[address] [facility] Blood Venous blood specimen / Unknown Venipuncture / Unknown 02/24/2025 3:55 PM EDT 02/24/2025 4:24 PM EDT us Oneal rGeen MD LAB BLOOD ORDERABLES Final Res ult Performing Organization Address [facility] Co de Phone Number [facility] [address] [place] [address] * ECHO, ADULT TRANSTHORACIC COMPLETE (02/24/2025 10:25 AM EDT) Pathologist [facility] BSA 1.89 m2 LOGAN ISCV Height 167.6 [...] other segments are normal. us Ro Toro ANSWERING SERVICE AGENT, DNP CV ECHO PROCEDURES Soraya walker Result * XR Chest 2 Views (02/23/2025 10:44 [...] is similar to comparison. Left chest wall [id number] dual cardiac leads project in similar position [...] XR PROCEDURES Final Resul t * (ABNORMAL) Procalcitonin (02/23/2025 10:15 AM EDT) Procalcitonin, Plasma 0.33(H) <0.09 ng/mL 02/23/2025 11:[address] [facility] Blood Venous blood specimen / Unknown Venipuncture / Unknown 02/23/2025 10:15 AM EDT 02/23/2025 10:[address] [facility] - 02/23/2025 11:04 AM EDT Procalcitonin [...] predict 28 day mortality risk. Please consult [email or web address] for more information. Test performed at [facility], Core Laboratory. German Richardson MD LAB BLOOD ORDERABLES Final Re sult [facility] [address] [place] [address] * (ABNORMAL) BNP (02/23/2025 10:15 AM EDT) N-Terminal, PROBNP, Plasma 41,068(H) 0 - 899 pg/mL 02/23/2025 11:[address] [facility] Blood Venous blood specimen / Unknown Venipuncture / Unknown 02/23/2025 10:15 AM EDT 02/23/2025 10:19 AM EDT us German Richardson MD LAB BLOOD ORDERABLES Final Re sult [facility] [address] [place] [address] * (ABNORMAL) CBC w/diff (02/23/2025 10:15 AM EDT) WBC Count 8.53 3.70 - 10.30 10*3/uL LAB HEMATOLOGY METHOD 02/23/2025 10:[address] [facility] RBC Count 3.83(L) 3.90 - 5.20 10*6/uL LAB HEMATOLOGY METHOD 02/23/2025 10:[address] [facility] HGB 11.2 11.2 - 15.7 g/dL LAB HEMATOLOGY METHOD 02/23/2025 10:[address] [facility] HCT 35.8 34.0 - 45.0 % LAB HEMATOLOGY METHOD 02/23/2025 10:[address] [facility] Platelet Count 124(L) 155 - 369 10*3/uL LAB HEMATOLOGY METHOD 02/23/2025 10:[address] [facility] MCV 94 79 - 98 fL LAB HEMATOLOGY METHOD 02/23/2025 10:[address] [facility] MCH 29.2 26.0 - 32.0 pg LAB HEMATOLOGY METHOD 02/23/2025 10:[address] [facility] MCHC 31.3 30.7 - 35.5 g/dL LAB HEMATOLOGY METHOD 02/23/2025 10:[address] [facility] RDW 18.4(H) 11.5 - 14.5 % LAB HEMATOLOGY METHOD 02/23/2025 10:[address] [facility] MPV 11.8 8.8 - 12.5 fL LAB HEMATOLOGY METHOD 02/23/2025 10:[address] [facility] nRBC 0.0 <=0.0 per 100 WBCs LAB HEMATOLOGY METHOD 02/23/2025 10:[address] [facility] Differential Type Automated LAB HEMATOLOGY METHOD 02/23/2025 10:[address] [facility] Neutrophils % 88 % LAB HEMATOLOGY METHOD 02/23/2025 10:[address] [facility] Lymphocytes % 6 % LAB HEMATOLOGY METHOD 02/23/2025 10:[address] [facility] Monocytes % 5 % LAB HEMATOLOGY METHOD 02/23/2025 10:[address] [facility] Eosinophils % 1 % LAB HEMATOLOGY METHOD 02/23/2025 10:[address] [facility] Basophils % 0 % LAB HEMATOLOGY METHOD 02/23/2025 10:[address] [facility] Immature Granulocytes % 0 % LAB HEMATOLOGY METHOD 02/23/2025 10:[address] [facility] Neutrophils Absolute 7.50(H) 1.60 - 6.10 10*3/uL LAB HEMATOLOGY METHOD 02/23/2025 10:[address] [facility] Lymphocytes Absolute 0.51(L) 1.20 - 3.90 10*3/uL LAB HEMATOLOGY METHOD 02/23/2025 10:[address] [facility] Monocytes Absolute 0.42 0.30 - 0.90 10*3/uL LAB HEMATOLOGY METHOD 02/23/2025 10:[address] [facility] Eosinophils Absolute 0.04 0.00 - 0.50 10*3/uL LAB HEMATOLOGY METHOD 02/23/2025 10:[address] [facility] Basophils Absolute 0.03 0.00 - 0.10 10*3/uL LAB HEMATOLOGY METHOD 02/23/2025 10:[address] [facility] Immature Granulocytes Absolute 0.03 0.00 - 0.06 10*3/uL LAB HEMATOLOGY METHOD 02/23/2025 10:[address] [facility] Blood Venous blood specimen / Unknown Venipuncture / Unknown 02/23/2025 10:15 AM EDT 02/23/2025 10:19 AM EDT [facility] - 02/23/2025 10:25 AM EDT Therapeutic decision making should be based on absolute values, rather than percentages. us German Richardson MD LAB BLOOD ORDERABLES Final Re sult [facility] [address] [place] [address] * (ABNORMAL) Blood gas panel, venous (02/23/2025 10:15 AM EDT) pH, Venous 7.44(H) 7.32 - 7.43 LAB HEMATOLOGY METHOD 02/23/2025 10:[address] [facility] pCO2, Venous 27(L) 37 - 52 mmHg LAB HEMATOLOGY METHOD 02/23/2025 10:[address] [facility] pO2, Venous 69(H) 25 - 40 mmHg LAB HEMATOLOGY METHOD 02/23/2025 10:[address] [facility] SO2, Measured, Venous 95(H) 65 - 80 % LAB HEMATOLOGY METHOD 02/23/2025 10:[address] [facility] Base Excess, Venous -4.2(L) -2.0 - 3.0 mmol/L LAB HEMATOLOGY METHOD 02/23/2025 10:[address] [facility] Bicarbonate, Calculated, Venous 19(L) 22 - 26 mmol/L LAB HEMATOLOGY METHOD 02/23/2025 10:[address] [facility] Hematocrit, Whole Blood 35.2 34.0 - 45.0 % LAB HEMATOLOGY METHOD 02/23/2025 10:[address] [facility] Sodium, Whole Blood 134(L) 136 - 145 mmol/L LAB HEMATOLOGY METHOD 02/23/2025 10:[address] [facility] Potassium, Whole Blood 3.2(L) 3.6 - 4.9 mmol/L LAB HEMATOLOGY METHOD 02/23/2025 10:[address] [facility] Chloride, Whole Blood 103 97 - 107 mmol/L LAB HEMATOLOGY METHOD 02/23/2025 10:[address] [facility] Glucose, Whole Blood 101(H) 74 - 99 mg/dL LAB HEMATOLOGY METHOD 02/23/2025 10:[address] [facility] Lactate, Venous, Whole Blood 1.3 0.5 - 2.2 mmol/L LAB HEMATOLOGY METHOD 02/23/2025 10:[address] [facility] Ionized Calcium, Whole Blood 4.2(L) 4.6 - 5.1 mg/dL LAB HEMATOLOGY METHOD 02/23/2025 10:[address] [facility] Blood Venous blood specimen / Unknown Venipuncture / Unknown 02/23/2025 10:15 AM EDT 02/23/2025 10:19 AM EDT us German Richardson MD LAB BLOOD ORDERABLES Final Re sult [facility] [address] [place] [address] * (ABNORMAL) CMP (02/23/2025 10:15 AM EDT) Glucose, Plasma 100(H) 74 - 99 mg/dL 02/23/2025 11:[address] [facility] BUN, Plasma 32(H) 7 - 21 mg/dL 02/23/2025 11:[address] [facility] Creatinine, Plasma 2.94(H) 0.60 - 1.10 mg/dL 02/23/2025 11:[address] [facility] BUN/Creatinine Ratio 11 02/23/2025 11:[address] [facility] Sodium, Plasma 133(L) 136 - 145 mmol/L 02/23/2025 11:[address] [facility] Potassium, Plasma 3.3(L) 3.6 - 4.9 mmol/L 02/23/2025 11:[address] [facility] Chloride, Plasma 101 97 - 107 mmol/L 02/23/2025 11:[address] [facility] CO2, Plasma 16(L) 22 - 29 mmol/L 02/23/2025 11:[address] [facility] Anion Gap 16 6 - 16 mmol/L 02/23/2025 11:[address] [facility] Total Calcium, Plasma 8.7(L) 8.9 - 10.2 mg/dL 02/23/2025 11:[address] [facility] Total Protein 6.5 6.3 - 7.9 g/dL 02/23/2025 11:[address] [facility] Albumin, Plasma 3.6 3.5 - 5.2 g/dL 02/23/2025 11:[address] [facility] AST, Plasma 18 10 - 35 U/L 02/23/2025 11:[address] [facility] ALT, Plasma 12 10 - 35 U/L 02/23/2025 11:[address] [facility] Alkaline Phosphatase, Plasma 106(H) 35 - 104 U/L 02/23/2025 11:[address] [facility] Total Bilirubin, Plasma 1.1 0.2 - 1.1 mg/dL 02/23/2025 11:[address] [facility] eGFRcr 18.4 mL/min/1.7 3m*2 02/23/2025 11:[address] [facility] Comment:Reported eGFRcr in m L/min/1.73m2 is based the CKD-EPI 2020 equation that does not use a race coefficient. Blood Venous blood specimen / Unknown Venipuncture / Unknown 02/23/2025 10:15 AM EDT 02/23/2025 10:19 AM EDT us German Richardson MD LAB BLOOD ORDERABLES Final Re sult [facility] [address] [place] [address] * EKG now - STAT (adult) (02/23/2025 7:56 AM EDT) EKG DIAGNOSIS CLASS Abnormal MUSE ECG Ventricular Rate 80 BPM MUSE ECG Atrial Rate 79 BPM MUSE ECG QRSD Interval 160 ms MUSE ECG QT Interval 482 ms MUSE ECG QTC Interval 555 ms MUSE ECG R [employer] 178 degrees MUSE ECG T Wave [employer] 4 degrees MUSE ECG Diagnosis Ventricular-pace d rhythm MUSE ECG Diagnosis Biventricular pacemaker detected MUSE ECG Diagnosis Abnormal ECG MUSE ECG Diagnosis MUSE ECG Diagnosis Confirmed by Mj Sheffield ([id number]) on 02/23/2025 11:38:11 AM MUSE ECG 02/23/2025 7:56 AM EDT 02/23/2025 11:38 AM EDT us German Richardson MD ECG ORDERABLES Final Result MUSE ECG * [facility] ED POCUS PROCDOC (02/23/2025 7:42 AM EDT) Narrative German Richardson MD - 02/23/2025 7:42 AM EDT German Richardson MD 02/25/2025 7:04 AM POC Ultrasound - Bedside Performed by: Sarai Chin MD Authorized by: German Richardson MD Procedure [...] LV function The images were Saved in [employer]. The study was technically adequate. Comments: B-lines visualized in bilateral lungs, could be suggestive of CHF exacerbation German Richardson MD IN CLINIC/BEDSIDE ORDERABLES Final Result * CT Abdomen Pelvis w IV Contrast (02/02/2025 3:21 PM EDT) Anatomical Region Laterality Modality Abdomen, Pelvis Computed Tomogra phy Impressions 02/02/2025 5:17 PM EDT Significant interval decrease in size of the previously demonstrated collection in the right lower quadrant. Near complete interval resolution of the previously demonstrated collections in the left lower quadrant and in the pelvis. No new fluid collections or abscesses. CRITICAL RESULT: No. COMMUNICATION: Per this written report. By electronically signing this report, I, the attending physician, attest that I have personally reviewed the images/data for the above examination(s) and agree with the final edited report. Drafted by Jet Fishman MD on 02/02/2025 3:54 PM Final report signed by Minna Morris MD on 02/02/2025 5:17 PM Narrative 02/02/2025 5:17 PM EDT CLINICAL INDICATION: Intra-abdominal abscess TECHNIQUE: Multiple axial CT images were obtained from lung bases through pubic symphysis following administration of IV contrast, Omnipaque 300, 100 mL. Reformatted images in the coronal and sagittal planes were generated from the axial data set to facilitate diagnostic accuracy. Total DLP (Dose-Length Product): 364.54 mGy.cm. Please note: The reported value represents the total of one or more individual components during the CT acquisition on this date and at this time, and as such, the same value may appear in more than one CT report depending on the interpreting/reporting physicians. COMPARISON: CT abdomen pelvis performed November 15, 2024 FINDINGS: Lower Chest: Basilar atelectasis. No suspicious nodules. Solid Abdominal Organs: Diffuse hepatic steatosis. Unremarkable gallbladder. No suspicious pancreatic findings. Normal sized spleen with homogeneous enhancement, accessory splenule. Unremarkable adrenal glands bilaterally. Kidneys demonstrate symmetric nephrogram, with small size likely secondary to parenchymal atrophy. GI Tract/Mesentery/Peritoneum: The large and small bowel appear normal in caliber. Adjustable gastric band in place, with similar position compared to prior study . No evidence of inflammatory change. No suspicious peritoneal/mesenteric findings. The previously described mesenteric fluid collections substantially decreased in size or resolved, for example right lower quadrant collection measures approximately 3 x 1.6 cm, previously 6.4 x 2.0 cm (series 3 image 198). Near-complete interval resolution of the previously demonstrated fluid collections in the left lower quadrant and in the pelvis. No new fluid collections or abscesses. Pelvic Viscera: Surgically absent uterus. No suspicious pelvic mass or lesion. Lymph Nodes/Vasculature: No lymphadenopathy by CT size criteria. The aortoiliac vasculature is patent and normal in caliber. Calcific atherosclerosis of the abdominal aorta, and bilateral common iliac arteries. Free Fluid: Small volume ascites. Musculoskeletal and Body Wall: No suspicious or aggressive osseous lesions. Mild body wall edema. Procedure Note Minna Morris MD - 02/02/2025 CLINICAL INDICATION: Intra-abdominal abscess TECHNIQUE: Multiple axial CT images were obtained from lung bases through pubicsymphysis following administration of IV contrast, Omnipaque 300, 100 mL.Reformatted images in the coronal and sagittal planes were generated fromthe axial data set to facilitate diagnostic accuracy. Total DLP (Dose-Length Product): 364.54 mGy.cm. Please note: The reportedvalue represents the total of one or more individual components during theCT acquisition on this date and at this time, and as such, the same valuemay appear in more than one CT report depending on theinterpreting/reporting physicians. COMPARISON: CT abdomen pelvis performed November 15, 2024 FINDINGS: Lower Chest: Basilar atelectasis. No suspicious nodules. Solid Abdominal Organs: Diffuse hepatic steatosis. Unremarkablegallbladder. No suspicious pancreatic findings. Normal sized spleen withhomogeneous enhancement, accessory splenule. Unremarkable adrenal glandsbilaterally. Kidneys demonstrate symmetric nephrogram, with small sizelikely secondary to parenchymal atrophy. GI Tract/Mesentery/Peritoneum: The large and small bowel appear normal incaliber. Adjustable gastric band in place, with similar position comparedto prior study . No evidence of inflammatory change. No suspiciousperitoneal/mesenteric findings. The previously described mesenteric fluidcollections substantially decreased in size or resolved, for example rightlower quadrant collection measures approximately 3 x 1.6 cm, previously6.4 x 2.0 cm (series 3 image 198). Near-complete interval resolution ofthe previously demonstrated fluid collections in the left lower quadrantand in the pelvis. No new fluid collections or abscesses. Pelvic Viscera: Surgically absent uterus. No suspicious pelvic mass orlesion. Lymph Nodes/Vasculature: No lymphadenopathy by CT size criteria. Theaortoiliac vasculature is patent and normal in caliber. Calcificatherosclerosis of the abdominal aorta, and bilateral common iliacarteries. Free Fluid: Small volume ascites. Musculoskeletal and Body Wall: No suspicious or aggressive osseouslesions. Mild body wall edema. IMPRESSION: Significant interval decrease in size of the previously demonstratedcollection in the right lower quadrant. Near complete interval resolutionof the previously demonstrated collections in the left lower quadrant andin the pelvis. No new fluid collections or abscesses. CRITICAL RESULT: No. COMMUNICATION: Per this written report. By electronically signing this report, I, the attending physician, wenceslao I have personally reviewed the images/data for the aboveexamination(s) and agree with the final edited report. Drafted by Jet Fishman MD on 02/02/2025 3:54 PM Final report signed by Minna Morris MD on 02/02/2025 5:17 PM Jimmie Baker MD IMG CT PROCEDURES Final Result * ECHO, ADULT TRANSTHORACIC COMPLETE W/ CONTRAST (02/01/2025 1:54 PM EDT) Height 167.6 LOGAN ISCV Weight 72.6 LOGAN ISCV IVSd 9 mm LOGAN ISCV LVIDd 58 mm LOGAN ISCV LVPWd 11 mm LOGAN ISCV LV MASS(C)D 232 g LOGAN ISCV LV RWT 0.34 mm LOGAN ISCV LVIDs 48 mm LOGAN ISCV LA dimension 47 mm LOGAN ISCV Ao Root Diam 31 mm LOGAN ISCV LVOT diam 21 mm LOGAN ISCV LVOT AREA 3.5 cm2 LOGAN ISCV BSA 1.82 m2 LOGAN ISCV [facility] CV ECHO LV MASS INDEX 128 g/m2 LOGAN ISCV TR Vmax 301.0 cm/s LOGAN ISCV TR Max PG 36 mmHG LOGAN ISCV MV V2 VTI 28.2 cm LOGAN ISCV MV MG 5 mmHg LOGAN ISCV MV V2 max 197.9 cm/s LOGAN ISCV MV max PG 16 mmHg LOGAN ISCV RVSP 51 mmHg LOGAN ISCV RAP systole 15 mmHg LOGAN ISCV RA MOD 4Ch 83 mL LOGAN ISCV DANII 46 mL/m2 LOGAN ISCV RV base 54 mm LOGAN ISCV TAPSE 16 mm LOGAN ISCV LAV(MOD-2ch) 101 mL LOGAN ISCV RV s' Sebastien 8.1 cm/s LOGAN ISCV LAV(MOD-bp) Indexed 61 mL/m2 LOGAN ISCV LAV(MOD-4ch) 122 mL LOGAN ISCV Asc Ao Diam 35 mm LOGAN ISCV MPA diam 28 mm LOGAN ISCV MPA area 6.2 cm2 LOGAN ISCV LV V1 VTI 15.3 cm LOGAN ISCV SV(LVOT) 53 mL LOGAN ISCV LV V1 Vmax 134.0 cm/s LOGAN ISCV LV mean PG 2.8 mmHG LOGAN ISCV LV V1 mean 74.7 cm/sec LOGAN ISCV LV max PG 7.2 mmHg LOGAN ISCV Aortic R-R 750 ms LOGAN ISCV CO(LVOT) 4.2 L/min LOGAN ISCV CO(LVOT) 232.8 L/min LOGAN ISCV LV EDV(MOD-2ch) 296 mL LOGAN ISCV LV ESV(MOD2ch) 213 mL LOGAN ISCV EF(MOD-sp2) 28 % LOGAN ISCV LVLs ap2 9.2 mm LOGAN ISCV LV EDV(MOD-4ch) 262 mL LOGAN ISCV EDV(MOD-bp) 279 mL LOGAN ISCV LV ESV(MOD4ch) 225 mL LOGAN ISCV EF(MOD-sp4) 14 % LOGAN ISCV ESV(MOD-bp) 219 mL LOGAN ISCV EF(MOD-bp) 22 % LOGAN ISCV Anatomical Region Laterality Modality Echocardiography Narrative 02/01/2025 4:40 PM EDT Left Ventricle: The left ventricle is dilated. [...] no significant interval change noted. Left Ventricle The left ventricle is dilated. There is [...] findings. Right Ventricle The right ventricle is dilated. A catheter/lead is present in the right ventricle. The right ventricular systolic function is reduced. Unable to estimate the right ventricular systolic pressure (RVSP) due to severe tricuspid regurgitation. Left Atrium The left atrial size is severely increased with an indexed volume of >48 mL/m2. The interatrial septum is intact with no evidence for an atrial septal defect. Right Atrium The right atrial volume index is severely increased (>46mL/m2). There is a catheter/lead present in the [...] a heart rate of 80 bpm. Tricuspid Valve The tricuspid valve is grossly normal in appearance. There is severe tricuspid regurgitation. There is no tricuspid stenosis. Aortic Valve The aortic valve appears to be trileaflet. There is aortic annular calcification present. There is trace aortic valve regurgitation. There is no hemodynamically significant valvular aortic stenosis. Pulmonic Valve The pulmonic valve is normal in appearance. There is mild pulmonic regurgitation. There is no pulmonic stenosis. Pericardium No pericardial effusion. Great Vessels The aortic root is normal in size. In the maximally visualized portion, the ascending aorta appears normal in size. The main pulmonary artery is dilated. Study Details A complete transthoracic echocardiogram using two-dimensional (2D), m-mode, color and spectral flow Doppler imaging was performed. During the study the apical, parasternal, subcostal and suprasternal view was captured. Definity contrast was used during the study. Overall the study quality was adequate. Height: 167.6 cm. Weight: 72.6 kg. BSA: 1.82 m2. Study Recommendation Compared to the most recently available prior study, and allowing for differences in image quality and technique, there is no significant interval change noted. Wall Scoring Baseline Score Index: 2.47 The following segments are akinetic: basal anteroseptal, basal inferoseptal, mid anteroseptal, mid inferoseptal, apical anterior, apical septal, apical inferior, apical lateral and apex. The following segments are hypokinetic: basal anterior, basal inferior, basal anterolateral, mid anterior, mid inferior, mid inferolateral and mid anterolateral. All other segments are normal. Lenore Cosme MD CV ECHO PROCEDURES Final R esult * Acute Hepatitis Panel (11/22/2024 10:53 AM EDT) [facility] Hepatitis B Surf Antigen Negative Negative 11/22/2024 2:[address] [facility] Hepatitis C Antibody Negative Negative 11/22/2024 2:[address] [facility] Hepatitis A Antibody IgM Negative Negative 11/22/2024 2:[address] [facility] Hepatitis B Core Antibody IgM Negative Negative 11/22/2024 2:[address] [facility] Blood Venous blood specimen / Unknown Venipuncture / Unknown 11/22/2024 10:53 AM EDT 11/22/2024 11:07 AM EDT Jimmie Baker MD LAB BLOOD ORDERABLES Final Resul t [facility] [address] [place] [address] * ED HIV 1/2 Antibody/Antigen Screen w/Reflex to HIV 1/2 Differentiation (11/15/2024 2:51 PM EDT) [facility] HIV 1 & 2 Antibody/Antigen Screen Non Reactive Non Reactive 11/15/2024 4:[address] [facility] Comment:Screening for HIV 1 & 2 antibodies, and P24 antigen is NONREACTIVE. No confirmatory testing is required. Blood Venous blood specimen / Unknown Venipuncture / Unknown 11/15/2024 2:51 PM EDT 11/15/2024 3:33 PM EDT Az England MD LAB BLOOD ORDERABLES Final Result [facility] [address] [place] [address] * (ABNORMAL) Hemoglobin A1c (03/23/2023 9:02 AM EDT) [facility] Hemoglobin A1c 6.2(H) <5.7 % 03/23/2023 1:25 PM EDT [facility] Blood Venous blood specimen / Unknown Venipuncture / Unknown 03/23/2023 9:02 AM EDT 03/23/2023 9:50 AM EDT Narrative [facility] - 03/23/2023 1:25 PM EDT HA1C Interpretive Data: Diagnosis of Diabetes: Diabetic > or = 6.5% Pre-diabetic 5.7 to 6.4% Non-diabetic < or = 5.6% Glycemic Targets for Type I and Type II Diabetics: Non- Adults <7.0% Adults <6.0% Children and Adolescents <7.5% Source: [place] [employer]. Standards of medical care in diabetes,2017. Diabetes Care.2017:40 (suppl 1):S1-S135. HbA1c assay performed by an ion-exchange chromatography method that is certified traceable to the DCCT. us Tracie Godoy ANSWERING SERVICE AGENT LAB BLOOD ORDERABLES Final Result [facility] [address] [place] [address] * (ABNORMAL) Cytology (03/04/1998 12:00 AM EDT) 03/04/1998 03/05/1998 Narrative [facility] - 03/12/1998 12:00 AM EDT [facility] MR #: [id number] [facility] [place] [place], [place] [address] 1970 (Age: 27) FW Collect Date: 03/04/1998 00:00 Receipt Date: 03/05/1998 00:00 Page 1 DEPARTMENT OF PATHOLOGY AND LABORATORY MEDICINE CYTOPATHOLOGY REPORT Email: [email or web address] * Converted Case * This report may not match the original report format ATTENDING MD/Practitioner: Desmond Dawson MD Service: [facility] [place]: Reported: 03/12/1998 00:00 Collected: 03/04/1998 00:00 INTERPRETATION THIN PREP(CERVICAL/ENDOCERVICAL) LOW GRADE SQUAMOUS INTRAEPITHELIAL LESION. SATISFACTORY FOR INTERPRETATION. Electronically Signed Out JOHAN Pike (ASCP) Bryanna Plaza MD Cervical cytology is a screening test primarily for squamous cancers and precursors and has associated false negative and positive results. New technologies such as liquid based sampling may decrease but will not eliminate all false negative results. Regular screening and follow-up of unexplained clinical signs and symptoms are recommended to minimize false negative results. Please see the ASCCP website (www.asccp.org) for followup recommendations. If HPV testing was requested, correlation with the results is suggested (please call Microbiology at [phone] for results). CLINICAL INFORMATION: Menstrual History: {Not Provided} Date of Last Menstrual Period: {Not Provided} SPECIMEN DESCRIPTION: A: [id number] (Unrecognized part code), THIN PREP PAP ICD: F: {Not Entered} SNOMED CODES: 1; S6E302.3 [id number] In cases where a pathologist has signed out the report, the service has been rendered in part by a resident. The signing pathologist has performed and is responsible for the reported pathologic evaluation. Historical Provider LAB PATHOLOGY ORDERABLES Fin al Result [facility] from Last 3 Months or Most Recently Relevant to Health Maintenance Insurance [facility] MEDICARE [employer] MEDICARE Advance Directives * DNR/DNI (Latest Code Status on File) Date Activated Date Inactivated Comments 02/23/2025 1:11 PM 03/01/2025 6:41 PM Question Answer Comments DNR determined on/before admission date? Yes I have reviewed the capacity from the link above and, if needed, have updated to appropriate status: Yes * Full Code Date Activated Date Inactivated Comments 11/15/2024 3:38 PM 11/24/2024 3:02 PM Question Answer Comments I have reviewed the capacity from the link above and, if needed, have updated to appropriate status: Yes * Full Code Date Activated Date Inactivated Comments 06/05/2024 7:37 PM 06/06/2024 7:09 PM Question Answer Comments Patient has decision-making capacity? Yes * Full Code Date Activated Date Inactivated Comments 05/24/2024 9:40 PM 05/29/2024 4:34 PM Question Answer Comments Patient has decision-making capacity? Yes * Full Code Date Activated Date Inactivated Comments 03/22/2023 4:05 PM 04/07/2023 5:52 PM Question Answer Comments Patient has decision-making capacity? Yes Care Teams Car Wash Attendant Automatic Relationship Specialty Start Date End Date Az David MD [address] [place] [address] PCP - General 03/22/23
--- OUTSIDE RECORDS SUMMARY | 2025-04-11 11:01 | XMS_ITS | Encounter Summary ---
Author Organization [employer] ([place], [place], [place], [place]) Address [address] [address] Care Team Providers Care Lead Applications Developer Name Role Phone Fer Félix Francisco RODRIGUEZ Primary Care Provider [phone] Encounter Details Date Type Department Care Team (Late st Contact Info) Description 07/23/2019 Transcribed Document [facility] [address] [place] [address] ProviderMaria Esther MD [address] [place] [address] Social History Tobacco Use Types Packs/Day Years Used Date Smoking Tobacco: Never Assessed Comments Unknown Sex and Gender Information Value Date Recorded Sex Assigned at Not on file Legal Sex Female 6:53 PM CDT Gender Identity Not on file Sexual Orientation Not on file documented as of this encounter Miscellaneous Notes * Cerner Conversion Note - Historical ProviderMD - 07/23/2019 4:00 AM HEADING SAW OPERATOR Height and Weight, Routine Entered On: 07/23/2019 6:25 EST Performed On: 07/23/2019 4:00 EST by [facility]ili Cabrera [facility] Height and Weight, Routine Routine Weight Source : Bed scale Routine Weight Entry Format : Rail Road Flat Routine Weight, Pounds : 139 lb Routine Weight, Ounces : 7 oz Routine Weight Calculation : 63.38 kg Height Source : Chart Height Entry Format : Rail Road Flat Height, Feet : 5 ft Height, Inches : 6 Inch Clinical Height : 167.64 cm Body Surface Area (BSA), Routine : 1.72 m2 Body Mass Index (BMI), Routine : 22.55 kg/m2 Wili Cabrera Care Asst-Health Unit Coord - 07/23/2019 6:24 EST documented in this encounter Plan of Treatment Upcoming Encounters Date Type Department Care Team (Late st Contact Info) Description 04/12/2025 7:30 AM EDT Hospital Encounter [facility] Operating Room 1 [place] [address] [place] [address] [place] [address] [address] [place] [address] 04/12/2025 7:30 AM EDT Anesthesia Event [facility] Operating Room 1 [place] [address] Lucio Szymanski MD [address] [place] [address] 04/12/2025 7:30 AM EDT - 04/12/2025 8:55 AM EDT Surgery [facility] Operating Room 1 [place] [address] Bill Graham MD [address] [place] [address] (LAPAROSCOPIC PERITONEAL DIALYSIS CATHETER INSERTION) Scheduled Procedures Name Priority Associated Diagnoses Date/Ti me LAPAROSCOPY, WITH PERITONEAL DIALYSIS CATHETER INSERTION Chronic kidney disease, stage V (HCC) 04/12/2025 7:30 AM EDT documented as of this encounter Visit Diagnoses Not on filedocumented in this encounter Care Teams Lead Applications Developer Relationship Specialty Start Date End Date Félix Monroe, ACTUARIAL DIRECTOR [address] [facility] [address] [place], [place] [address] PCP - General Nurse Practitioner 08/25/22 documented as of this encounter
--- OUTSIDE RECORDS SUMMARY | 2025-04-11 11:01 | XMS_ITS | Encounter Summary ---
Author Organization Healthcare Address [address] [place] [address] Care Team Providers Care Presser Cotton Ginning Name Role Phone Az David MD Primary Care Provider [phone] Reason for Visit * Reason Onset Date Comments Anticoagulation 04/05/2025 Encounter Details Date Type Department Care Team (Late st Contact Info) Description 04/05/2025 Telephone [facility] Jorge A [address] [place] [address] Svitlana West, nut dehydrator operator Anticoagulation Social History Tobacco Use Types Packs/Day Years [...] any time in the past 12 m [facility], were you homeless or living in a skilled nursing (including now)? 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 Clinic contacted the patient on 04/03 to remind her of the upcoming INR check at the lab on 04/04 andshe stated she would go to the lab. Clinic attempted to contact patient on 04/05 to notify the patient of the missed INR check. Patient did not answer, so a voicemail was left notifying the patient of the missed INR check and instructedthe patient to contact the clinic. The Anticoagulation Clinic will continue to attempt to contact patient to check INR. Svitlana BRO, [facility] documented in this encounter Plan of Treatment Upcoming Encounters Date Type Department Care Team (Late st Contact Info) Description 05/24/2025 1:40 PM EST Office Visit [facility] [address] [facility] [address] Lenore Cosme MD [address] [place] [address] 08/02/2025 1:40 PM EST Office Visit [facility] [address] [facility]. [address] [address] Lenore Cosme MD [address] [place] [id number] documented as of this encounter Visit Diagnoses Not on filedocumented in this encounter Additional Health Concerns Assessment Noted Time PHQ-9 Depression Total Score: 5 06/15/20 24 2:55 PM EST A fall risk assessment has been complete d for the patient 03/08/2025 4:06 PM EDT A Body Mass Index follow-up plan has been documented for the patient 03/28/2025 4:40 PM EDT documented as of this encounter Care Teams Presser Cotton Ginning Relationship Specialty Start Date End Date Az David MD [address] [place] [address] PCP - General 03/22/23 documented as of this encounter
--- OUTSIDE RECORDS SUMMARY | 2025-04-11 11:01 | XMS_ITS | Encounter Summary ---
Author Organization [employer] ([place], [place], [place], [place]) Address [address] [address] Care Team Providers Care Railroad Watchman Name Role Phone Félix Monroe APRN Primary Care Provider [phone] Encounter Details Date Type Department Care Team (Late st Contact Info) Description 07/23/2019 Transcribed Document [facility] Medicine [address] [place] [address] ProviderMaria Esther MD [address] [place] [address] Social History Tobacco Use Types Packs/Day Years Used Date Smoking Tobacco: Never Assessed Comments Unknown Sex and Gender Information Value Date Recorded Sex Assigned at Not on file Legal Sex Female 6:53 PM CDT Gender Identity Not on file Sexual Orientation Not on file documented as of this encounter Miscellaneous Notes * Cerner Conversion Note - Historical ProviderMD - 07/23/2019 5:00 AM PRODUCTION CONTROL SCHEDULER Chart Check - Review Order Profile Entered On: 07/25/2019 3:56 EST Performed On: 07/23/2019 5:00 EST by QUINCY LOVE, RN Chart Check Powerplans Initiated/Discontinued as Appropriate : Yes All Active Orders Reviewed : Yes QUINCY LOVE RN - 07/25/2019 3:56 EST documented in this encounter Plan of Treatment Upcoming Encounters Date Type Department Care Team (Late st Contact Info) Description 04/12/2025 7:30 AM EDT Hospital Encounter [facility] Operating Room 1 [place] [address] Bill Graham MD [address] [facility] [address] [place] [address] 04/12/2025 7:30 AM EDT Anesthesia Event [facility] Operating Room 1 [place] [address] Lucio Szymanski MD [address] [place] [address] 04/12/2025 7:30 AM EDT - 04/12/2025 8:55 AM EDT Surgery [facility] Operating Room 1 [place] [address] Bill Graham MD [address] [facility] [address] [place] [address] (LAPAROSCOPIC PERITONEAL DIALYSIS CATHETER INSERTION) Scheduled Procedures Name Priority Associated Diagnoses Date/Ti me LAPAROSCOPY, WITH PERITONEAL DIALYSIS CATHETER INSERTION Chronic kidney disease, stage V (HCC) 04/12/2025 7:30 AM EDT documented as of this encounter Visit Diagnoses Not on filedocumented in this encounter Care Teams Railroad Watchman Relationship Specialty Start Date End Date Féilx Monroe, SHOW GIRL [address] [facility] [address] [place] [address] PCP - General Nurse Practitioner 08/25/22 documented as of this encounter
--- OUTSIDE RECORDS SUMMARY | 2025-04-11 11:01 | XMS_ITS | Encounter Summary ---
Author Organization [employer] ([place], [place], [place], [place]) Address [address] [place] [address] Care Team Providers Care Senior Medical Transcriptionist Name Role Phone Monroe Félix Francisco RODRIGUEZ Primary Care Provider [phone] Encounter Details Date Type Department Care Team (Late st Contact Info) Description 2019 Transcribed Document [facility] Family Medicine [address] [place] [address] ProviderMariaE sther MD [address] [place] [address] Social History Tobacco Use Types Packs/Day Years Used Date Smoking Tobacco: Never Assessed Comments Unknown Sex and Gender Information Value Date Recorded Sex Assigned at Not on file Legal Sex Female 6:53 PM CDT Gender Identity Not on file Sexual Orientation Not on file documented as of this encounter Miscellaneous Notes * Cerner Conversion Note - Maria Esther ProviderMD - 2019 7:34 PM OTR FLATBED DRIVER Nutrition Assessment Entered On: 07/21/2019 12:57 EST Performed On: 07/21/2019 12:55 EST by ORIN GRIMALDO RD, KUMAR Nutrition Assessment Nutrition Assessment Reason : Automatic referral ORIN GRIMALDO RD, KUMAR - 07/21/2019 12:55 EST Current Nutrition Regimen Comment : 07/21: Rec'd consult for MST >2 (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 Visited pt x 3- was sound asleep each visit, did not awaken to name being called. No weight history in chart to go by. Dx: severe MR, NSTEMI, LETY, Acute pulmonary edema, anemia PMH: CHF Med: MG sulfate, spironolactone, protonix Labs: K 3.2, BUN 23, Cr 2.0, Alb 2.8 Skin: no breakdown noted GI: no bm noted Diet: NPO Ht: 66 in Wt: 130# (07/20) BMI: 20.9 IBW: 130# ORIN GRIMALDO RD, - 07/21/2019 15:41 EST Nutrition Diagnoses Oral or Nutrition Support Intake : Inadequate oral intake Oral or Nutr Support Intake Related To : Clinical condition Oral or Nutr Support Intake Evidenced by : NPO Oral or Nutrition Support Intake Status : Active Weight : Unintended weight loss Weight Related to : decreased appetite per pt screening Weight As Evidenced by : 14-23# 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 As medically able, recommend Low sodium diet. Will add Ensure BID Goal: PO intake >50% of meals and supplements 2. Weigh pt 2x weekly Goal: no significant weight changes High Risk ORIN GRIMALDO RD, - 07/21/2019 15:41 EST Electronically signed by Hilario Loyola Conversion Rubber Production Machine Operator Cerner at 10/28/2022 7:10 PM CDT documented in this encounter Plan of Treatment Upcoming Encounters Date Type Department Care Team (Late st Contact Info) Description 04/12/2025 7:30 AM EDT Hospital Encounter [facility] Operating Room 1 [place] [address] Bill Graham MD [address] [place] [address] [place] [address] 04/12/2025 7:30 AM EDT Anesthesia Event [facility] Operating Room 1 [place] [phone] Lucio Szymanski MD [address] [place] [address] 04/12/2025 7:30 AM EDT - 04/12/2025 8:55 AM EDT Surgery [facility] Operating Room 1 [place] [address] Bill Graham MD [address] [facility] [address] [place] [address] (LAPAROSCOPIC PERITONEAL DIALYSIS CATHETER INSERTION) Scheduled Procedures Name Priority Associated Diagnoses Date/Ti me LAPAROSCOPY, WITH PERITONEAL DIALYSIS CATHETER INSERTION Chronic kidney disease, stage V (HCC) 04/12/2025 7:30 AM EDT documented as of this encounter Visit Diagnoses Not on filedocumented in this encounter Care Teams Senior Medical Transcriptionist Relationship Specialty Start Date End Date Félix Monroe, POTATO PANCAKE FRIER [address] [facility] [address] [place] [address] PCP - General Nurse Practitioner 08/25/22 documented as of this encounter
--- OUTSIDE RECORDS SUMMARY | 2025-04-11 11:01 | XMS_ITS | Encounter Summary ---
Author Organization [employer] ([place], [place], [place], [place]) Address [address] [place] [address] Care Team Providers Care Interactive Designer Name Role Phone Félix Monroe APRN Primary Care Provider [phone] Encounter Details Date Type Department Care Team (Late st Contact Info) Description 07/23/2019 Transcribed Document [facility] Family Medicine [address] [place] [address] ProviderMaria Esther MD [address] [place] [address] Social History Tobacco Use Types Packs/Day Years Used Date Smoking Tobacco: Never Assessed Comments Unknown Sex and Gender Information Value Date Recorded Sex Assigned at Not on file Legal Sex Female 6:53 PM CDT Gender Identity Not on file Sexual Orientation Not on file documented as of this encounter Miscellaneous Notes * Cerner Conversion Note - Maria Esther Reyes MD - 07/23/2019 12:17 PM COLLECTOR OF PORT Patient: CORRIE SMITH [facility]: [id number] Age: 49 years Sex: Female : 1970 Associated Diagnoses: None Author: GILES BLAS MD-INT Basic Information SUBJECTIVE: Patient is seen and evaluated Breathing better No CP No palpitations Review of Systems Constitutional: No fever, No [...] influenza virus vaccine, inactivated: 0.5 mL, IntraMuscular, [id number], Medications (13) Active Scheduled: (7) amLODIPine 10 [...] Medical HTN - Hypertension / SNOMED CT [id number] / Confirmed, Active Problems (2) COPD (chronic obstructive pulmonary disease) HTN - Hypertension OBJECTIVE: Physical Examination VS/Measurements Vitals Signs (last 24 hrs) Last Charted Minimum Maximum Temp 97.8 (JUL 23:43) 97.8 (JUL 23:43) 98 (JUL 22:38) Mon HR 75 (JUL 23:43) 72 (JUL 23 02:28) 81 (JUL 23 08:12) Resp Rate 16 (JUL 23 08:12) 16 (JUL 23 06:21) 20 (JUL 22:38) SBP 125 (JUL 23 09:43) 120 (JUL 22 22:15) H 154 (JUL 22:38) DBP 85 (JUL 23 09:43) 80 (JUL 22 14:24) H 102 (JUL 22:38) MAP 101 (JUL 23 09:43) 95 (JUL 22 14:24) 117 (JUL 22:38) SpO2 97 (JUL 23 08:12) 97 (JUL 22:38) 97 (JUL 22:38) General: Alert and oriented, No acute distress. [...] tenderness, No swelling, No deformity. Integumentary: Warm, [place], Moist, No rash. Neurologic: Alert, Oriented, Normal sensory, Normal motor function, No focal deficits, Cranial Nerves II-XII are grossly intact, Normal deep tendon reflexes. Psychiatric: Cooperative, Appropriate mood & affect, Normal judgment. Review / Management Results review: Labs (Last four charted values) WBC 6.4 (JUL 23) 6.3 (JUL 22) 8.9 (JUL 21) 9.0 (JUL 20) HB L 11.1 (JUL 23) 11.4 (JUL 22) L 10.6 (JUL 21) L 10.8 (JUL 20) HCT L 33.2 (JUL 23) 34.1 (JUL 22) L 31.4 (JUL 21) L 32.5 (JUL 20) Plt 164 (JUL 23) L 155 (JUL 22) L 142 (JUL 21) L 148 (JUL 20) Na 137 (JUL 23) 139 (JUL 22) 141 (JUL 21) 140 (JUL 20) K L 3.4 (JUL 23) L 2.9 (JUL 22) L 3.2 (JUL 21) C 2.8 (JUL 20) Cl 104 (JUL 23) 103 (JUL 22) 107 (JUL 21) 104 (JUL 20) CO2 31 (JUL 23) 31 (JUL 22) 28 (JUL 21) 29 (JUL 20) BUN H 28 (JUL 23) H 26 (JUL 22) H 23 (JUL 21) H 24 (JUL 20) Cr H 2.40 (JUL 23) H 2.10 (JUL 22) H 2.00 (JUL 21) H 2.00 (JUL 20) Glu R 104 (JUL 23) H 111 (JUL 22) H 110 (JUL 21) H 118 (JUL 20) Ca 9.1 (JUL 23) 8.8 (JUL 22) 8.5 (JUL 21) 8.8 [...] 21) H 0.082 (JUL 20) , JUL 23 03:59 137 104 H 28 / 104 L 3.4 31 H 2.40 \ JUL 23 03:59 \ L 11.1 / 6.4 164 / L 33.2 \, No Radiology Results Found. Impression and Plan Severe MR - patient [...] brilinta in ED - restart coreg Acute Diastolic Congestive Heart Failure POA LVEF = 50 % Was not placed on ACEI or ARB due to renal failure Acute pulmonary edema, 2/2 severe MR Hypokalemia, K 2.8 - replete Acute kidney injury, likely prerenal. Unknown baseline Cr. - avoid nephrotoxic agents, trend renal indices - may need nephrology evaluation if plans for [facility] - check FEUrea, renal ultrasound Anemia, Hgb [...] compression device Code status: Full code PLAN: for Mitral valve replacement hopefully Wednesday or Wednesday by Dr. Valdez. Creatinine stable , nephrology is following Replaced potassium Time spent: 20 minutes documented in this encounter Plan of Treatment Upcoming Encounters Date Type Department Care Team (Late st Contact Info) Description 04/12/2025 7:30 AM EDT Hospital Encounter [facility] Operating Room 1 [place] [address] Bill Graham MD [address] [facility] [address] [place] [address] 04/12/2025 7:30 AM EDT Anesthesia Event [facility] Operating Room 1 [place] [address] Lucio Szymanski MD [address] [place] [address] 04/12/2025 7:30 AM EDT - 04/12/2025 8:55 AM EDT Surgery [facility] Operating Room [address] [place] [address] [place] [address] [place] [address] [address] [place] [address] (LAPAROSCOPIC PERITONEAL DIALYSIS CATHETER INSERTION) Scheduled Procedures Name Priority Associated Diagnoses Date/Ti me LAPAROSCOPY, WITH PERITONEAL DIALYSIS CATHETER INSERTION Chronic kidney disease, stage V (HCC) 04/12/2025 7:30 AM EDT documented as of this encounter Visit Diagnoses Not on filedocumented in this encounter Care Teams Interactive Designer Relationship Specialty Start Date End Date Félix Monroe, MIXER TENDER [address] [facility] [address] [place] [address] PCP - General Nurse Practitioner 08/25/22 documented as of this encounter
--- OUTSIDE RECORDS SUMMARY | 2025-04-11 11:01 | XMS_ITS | Encounter Summary ---
Author Organization [employer] ([place], [place], [place], [place]) Address [address] [place] [address] Care Team Providers Care Carpenter Assistant Name Role Phone Félix Monroe APRN Primary Care Provider [phone] Encounter Details Date Type Department Care Team (Late st Contact Info) Description 09/04/2019 Transcribed Document [facility] [place] Family Medicine [address] [place] [address] ProviderMaria Esther MD [address] [place], [place] [address] Social History Tobacco Use Types Packs/Day Years Used Date Smoking Tobacco: Never Assessed Comments Unknown Sex and Gender Information Value Date Recorded Sex Assigned at Not on file Legal Sex Female 6:53 PM CDT Gender Identity Not on file Sexual Orientation Not on file documented as of this encounter Miscellaneous Notes * Cerner Conversion Note - Maria Esther Reyes MD - 09/04/2019 4:08 PM GERIATRIC NURSE [place]ACTITION[place] [address] Chava Lockett MD; Preston Howell M.D. Re: CORRIE SMITH Date of Visit: 08/29/2019 Dear Susu García Thank you for allowing Dr. Valdez to participate in your patient's care. Please see the accompanying information that I would like to share with you regarding your patient. This Document is confidential and intended solely for the use of the individual or entity to which it is addressed. If you are not the named addressee, please disregard and do not disseminate, distribute or copy this information. If you are the intended recipient any disclosure of this information and its contents is strictly prohibited. Sincerely, DARRIUS TOUSSAINT [address] [place] [id number] The following document(s) were included in the letter: September 04, 2019 15:59:00 EST - (09/04/2019) DISCHARGE SUMMARY Electronically signed by Evaristo Loyola Conversion Product Development Manager Cerner at 10/28/2022 7:18 PM CDT documented in this encounter Plan of Treatment Upcoming Encounters Date Type Department Care Team (Late st Contact Info) Description 04/12/2025 7:30 AM EDT Hospital Encounter [facility] Operating Room 1 [place] [address] Bill Graham MD [address] [place] [address] 04/12/2025 7:30 AM EDT Anesthesia Event [facility] Operating Room 1 [place] [address] Lucio Szymanski MD [address] [place] [address] 04/12/2025 7:30 AM EDT - 04/12/2025 8:55 AM EDT Surgery [facility] Operating Room 1 [place] [address] Bill Graham MD [address] [place] [address] (LAPAROSCOPIC PERITONEAL DIALYSIS CATHETER INSERTION) Scheduled Procedures Name Priority Associated Diagnoses Date/Ti me LAPAROSCOPY, WITH PERITONEAL DIALYSIS CATHETER INSERTION Chronic kidney disease, stage V (HCC) 04/12/2025 7:30 AM EDT documented as of this encounter Visit Diagnoses Not on filedocumented in this encounter Care Teams Carpenter Assistant Relationship Specialty Start Date End Date Félix Monroe APRN [address] [facility] [address] [place] [address] PCP - General Nurse Practitioner 08/25/22 documented as of this encounter
--- OUTSIDE RECORDS SUMMARY | 2025-04-11 11:01 | XMS_ITS | Encounter Summary ---
Author Organization [employer] ([place], [place], [place], [place]) Address [address] [place] [address] Care Team Providers Care Hoe Runner Name Role Phone Félix Monroe APRN Primary Care Provider [phone] Encounter Details Date Type Department Care Team (Late st Contact Info) Description 07/23/2019 Transcribed Document [facility] [place] [place] Family Medicine [address] [place] [address] ProviderMaria Esther MD [address] [place] [address] Social History Tobacco Use Types Packs/Day Years Used Date Smoking Tobacco: Never Assessed Comments Unknown Sex and Gender Information Value Date Recorded Sex Assigned at Not on file Legal Sex Female 6:53 PM CDT Gender Identity Not on file Sexual Orientation Not on file documented as of this encounter Miscellaneous Notes * Cerner Conversion Note - Historical ProviderMD - 07/23/2019 5:00 PM WOUND CARE SPECIALIST Chart Check - Review Order Profile Entered On: 07/23/2019 17:26 EST Performed On: 07/23/2019 17:00 EST by SANTIAGO SHETTY RN Chart Check All Active Orders Reviewed : Yes SANTIAGO SHETTY RN - 07/23/2019 17:26 EST Electronically signed by Nir [facility] Conversion Payroll Services Analyst Cerner at 10/28/2022 7:24 PM CDT documented in this encounter Plan of Treatment Upcoming Encounters Date Type Department Care Team (Late st Contact Info) Description 04/12/2025 7:30 AM EDT Hospital Encounter [facility] Operating Room 1 [place] [address] Bill Graham MD [address] [facility] [address] [place] [address] 04/12/2025 7:30 AM EDT Anesthesia Event [facility] Operating Room 1 [place] [address] Lucio Szymanski MD [address] [place] [address] 04/12/2025 7:30 AM EDT - 04/12/2025 8:55 AM EDT Surgery [facility] Operating Room 1 [place] [address] Bill Graham MD [address] [facility] [address] [place] [address] (LAPAROSCOPIC PERITONEAL DIALYSIS CATHETER INSERTION) Scheduled Procedures Name Priority Associated Diagnoses Date/Ti me LAPAROSCOPY, WITH PERITONEAL DIALYSIS CATHETER INSERTION Chronic kidney disease, stage V (HCC) 04/12/2025 7:30 AM EDT documented as of this encounter Visit Diagnoses Not on filedocumented in this encounter Care Teams Hoe Runner Relationship Specialty Start Date End Date Félix Monroe, CUSTOMER CONTACT SPECIALIST [address] [facility] [address] [place] [address] PCP - General Nurse Practitioner 08/25/22 documented as of this encounter
--- OUTSIDE RECORDS SUMMARY | 2025-04-11 11:01 | XMS_ITS | Encounter Summary ---
Author Organization [employer] ([place], [place], [place], [place]) Address [address] [address] Care Team Providers Care Travel Med Surg Rn Name Role Phone Félix Monroe MICHAEL Primary Care Provider [phone] Encounter Details Date Type Department Care Team (Late st Contact Info) Description 07/23/2019 Transcribed Document [facility] [place] [facility] [place] [address] ProviderMaria Esther MD [address] [place] [address] Social History Tobacco Use Types Packs/Day Years Used Date Smoking Tobacco: Never Assessed Comments Unknown Sex and Gender Information Value Date Recorded Sex Assigned at Not on file Legal Sex Female 6:53 PM CDT Gender Identity Not on file Sexual Orientation Not on file documented as of this encounter Miscellaneous Notes * Cerner Conversion Note - Maria Esther ProviderMD - 07/23/2019 2:00 AM PRODUCT DEVELOPMENT ECOLOGIST Industrial Refrigeration Mechanic Details Entered On: 07/25/2019 3:56 EST Performed On: 07/23/2019 2:00 EST by QUINCY LOVE RN Order Details Transport Mode Order Detail : Ambulatory Isolation Precautions Order Detail : Standard Precautions Order Detail : 0 IV Order Detail : 1 Nurse Collect Order Detail : 0 Lift/Transfer : Independent Central Line Order Detail : No Room Service : Appropriate Arterial Line : No QUINCY LOVE, CROW - 07/25/2019 3:56 EST Electronically signed by Nir [facility] Conversion Shellfish Farming Supervisor Cerner at 10/28/2022 7:26 PM CDT documented in this encounter Plan of Treatment Upcoming Encounters Date Type Department Care Team (Late st Contact Info) Description 04/12/2025 7:30 AM EDT Hospital Encounter [facility] Operating Room 1 [place] [address] Bill Graham MD [address] [facility] [address] [place] [address] 04/12/2025 7:30 AM EDT Anesthesia Event [facility] Operating Room 1 [place] [address] Lucio Szymanski MD [address] [place] [address] 04/12/2025 7:30 AM EDT - 04/12/2025 8:55 AM EDT Surgery [facility] Operating Room 1 [place] [address] [place] [address] [place] [address] [address] [place] [address] (LAPAROSCOPIC PERITONEAL DIALYSIS CATHETER INSERTION) Scheduled Procedures Name Priority Associated Diagnoses Date/Ti me LAPAROSCOPY, WITH PERITONEAL DIALYSIS CATHETER INSERTION Chronic kidney disease, stage V (HCC) 04/12/2025 7:30 AM EDT documented as of this encounter Visit Diagnoses Not on filedocumented in this encounter Care Teams Travel Med Surg Rn Relationship Specialty Start Date End Date Félix Monroe, GERIATRIC PHYSICAL THERAPIST [address] [facility] [address] [place] [address] PCP - General Nurse Practitioner 08/25/22 documented as of this encounter
--- OUTSIDE RECORDS SUMMARY | 2025-04-11 11:01 | XMS_ITS | Encounter Summary ---
Author Organization [employer] ([place], [place], [place], [place]) Address [address] [address] Care Team Providers Care Trimmer And Borer Machine Operator Name Role Phone Monroe Félix Francisco RODRIGUEZ Primary Care Provider [phone] Encounter Details Date Type Department Care Team (Late st Contact Info) Description 07/23/2019 Transcribed Document [facility] [place] Family Medicine [address] [place] [address] ProviderMaria Esther MD [address] [place], [place] [id number] Social History Tobacco Use Types Packs/Day Years Used Date Smoking Tobacco: Never Assessed Comments Unknown Sex and Gender Information Value Date Recorded Sex Assigned at Not on file Legal Sex Female 6:53 PM CDT Gender Identity Not on file Sexual Orientation Not on file documented as of this encounter Miscellaneous Notes * Cerner Conversion Note - Maria Esther Reyes MD - 07/23/2019 2:52 PM AIR BREAKER OPERATOR Patient: CORRIE SMITH [facility]: [id number] Age: 49 years Sex: Female : 1970 Associated Diagnoses: None Author: SABRINA CONLEY PA Basic Information Corrie Smith is a 49-year-old female with a known history of valvular heart disease, congestive heart failure, and tobacco abuse. She has had 2 hospital admissions for CHF over the past 15 years. She recently presented to [facility] with worsening shortness of breath. She stopped taking her cardiac medication 4 months ago when she lost her insurance. At [facility] she had a transthoracic echocardiogram which showed severe MR. She also had an elevated pro BNP of 31,000 as well as an elevated troponin at 0.85. The patient was given a loading dose of aspirin and Brilinta, given nitroglycerin and intravenous Lasix, and was started on a heparin drip and then was transferred to [facility]. Dr. Александр Valdez has been asked to evaluate this lady for mitral valve surgery. Physical Examination VS/Measurements Vital Measurements 07/23/2019 13:46 EST Systolic Blood Pressure 138 mmHg Diastolic Blood Pressure 86 mmHg Temperature, Fahrenheit 97.9 Deg F Heart Rate Monitored 79 bpm 07/23/2019 8:12 EST Oxygen Saturation 97 % Oxygen Therapy Mode Room air General: Alert and oriented. Respiratory: Lungs are clear to auscultation. Cardiovascular: Normal rate, Regular rhythm, No gallop, Good pulses equal in all extremities, No edema, 3/6 systolic ejection murmur loudest at the apex. Review / Management Results review: JUL 23 03:59 137 104 H 28 / 104 L 3.4 31 H 2.40 \ JUL 23 03:59 \ L 11.1 / 6.4 164 / L 33.2 \. Chest x-ray results Filling Carrier: Reveals a Normal sinus rhythm. Impression and Plan 07/22/19 Mitral valve replacement hopefully Wednesday or Wednesday by Dr. Valdez. (Got Brilinta at [facility] >2 days ago) Creatinine 2.2 (2.0 yesterday) renal following Potassium 2.9, getting replacement 07/23/19 Mitral valve replacement Wednesday or Wednesday per Dr. Valdez. Creatinine 2.4 (2.2 yesterday) renal following Diagnosis documented in this encounter Plan of Treatment Upcoming Encounters Date Type Department Care Team (Late st Contact Info) Description 04/12/2025 7:30 AM EDT Hospital Encounter [facility] Operating Room 1 [place] [address] Bill Graham MD [address] [place] [address] [place] [address] 04/12/2025 7:30 AM EDT Anesthesia Event [facility] Operating Room 1 [place] [address] Lucio Szymanski MD [address] [place] [address] 04/12/2025 7:30 AM EDT - 04/12/2025 8:55 AM EDT Surgery [facility] Operating Room 1 [place] [address] Bill Graham MD [address] [facility] [address] [place] [address] (LAPAROSCOPIC PERITONEAL DIALYSIS CATHETER INSERTION) Scheduled Procedures Name Priority Associated Diagnoses Date/Ti me LAPAROSCOPY, WITH PERITONEAL DIALYSIS CATHETER INSERTION Chronic kidney disease, stage V (HCC) 04/12/2025 7:30 AM EDT documented as of this encounter Visit Diagnoses Not on filedocumented in this encounter Care Teams Trimmer And Borer Machine Operator Relationship Specialty Start Date End Date Félix Monroe, GARMENT ALTERATION EXAMINER [address] [facility] [address] [place] [address] PCP - General Nurse Practitioner 08/25/22 documented as of this encounter
--- OUTSIDE RECORDS SUMMARY | 2025-04-11 11:01 | XMS_ITS | Encounter Summary ---
Author Organization [employer] ([place], [place], [place], [place]) Address [address] [address] Care Team Providers Care Psychiatric Clinical Nurse Specialist Name Role Phone Monroe Félix Francisco RODRIGUEZ Primary Care Provider [phone] Encounter Details Date Type Department Care Team (Late st Contact Info) Description 2019 Transcribed Document [facility] [place] Family Medicine [address] [place] [address] ProviderMaria Esther MD [address] [place], [place] [address] Social History Tobacco Use Types Packs/Day Years Used Date Smoking Tobacco: Never Assessed Comments Unknown Sex and Gender Information Value Date Recorded Sex Assigned at Not on file Legal Sex Female 6:53 PM CDT Gender Identity Not on file Sexual Orientation Not on file documented as of this encounter Miscellaneous Notes * Cerner Conversion Note - Maria Esther ProviderMD - 2019 7:25 PM CINDER CRANE OPERATOR Admission History, Adult Entered On: 2019 19:34 EST Performed On: 2019 19:25 EST by HINA SALGADO RN Advance Directive Patient has Advance Directive *Q : Yes, Advance Directive not with the patient Advance Directive Type : Living will Copy Advance Directive Verified/on Chart : No HINA SALGADO RN - 2019 19:25 EST Anesthesia/Transfusion History Family History of Anesthesia Reaction : No prior transfusion(s) Blood Transfusion Acceptable to Patient : Yes Transfusion History : Prior anesthesia without reaction Family History of Anesthesia Reaction : None HINA SALGADO RN - 2019 19:25 EST Anticipated Discharge Needs Discharge To, Anticipated : Home HINA SALGADO RN - 2019 19:25 EST Education Topics, Admission Orientation DCP GENERIC CODE Advance Directives : Verbalizes understanding Allergy Band Applied : Verbalizes understanding Assessment/Vital Signs : Verbalizes understanding Bed Control : Verbalizes understanding Call Light : Verbalizes understanding Confidentiality : Verbalizes understanding Diet/Room Service : Verbalizes understanding Fall Prevention : Verbalizes understanding Hand Hygiene : Verbalizes understanding Healthcare Provider Visit : Verbalizes understanding ID Band Applied : Verbalizes understanding Isolation Precautions : Verbalizes understanding Orientation to Room/Bathroom : Verbalizes understanding Patient Bill of Rights : Verbalizes understanding Patient Rights/Responsibilities : Verbalizes understanding Patient Safety : Verbalizes understanding Personal Privacy Code : Verbalizes understanding Rapid Response Initiated by Patient/Family : Verbalizes understanding Rounding : Verbalizes understanding Siderails use/risks : Verbalizes understanding Skin Precautions : Verbalizes understanding Smoking Policy : Verbalizes understanding Telemetry Monitoring : Verbalizes understanding Television/Phone : Verbalizes understanding Visiting Policy : Verbalizes understanding HINA SALGADO RN - 2019 19:25 EST Functional Assessment Living Situation : Home Current Home Treatments : None HINA SALGADO RN - 2019 19:25 EST General Info Primary Language : Gabonese Communication Barrier : None HINA SALGADO RN - 2019 19:43 EST Want Family/Rep/Phys Notified of Admit : No Emergency Contact #1 : Bola Stiles Emergency Contact #1 Phone Number : Emergency Contact #1 Relationship : [phone] Emergency Contact #2 : - Emergency Contact #2 Phone Number : - Emergency Contact #2 Relationship : - HINA SALGADO RN - 2019 19:25 EST Fall Risk Scales ABCs Fall Injury Risk Identification : None Injury Moderate to High Risk Interventions : Specialty low bed ECHEVARRIA Hx Falls Immediate/Within 3 Months : No Echevarria Secondary Diagnosis : Yes ECHEVARRIA Use of Ambulatory Aid : None ECHEVARRIA IV Therapy or IV Access : No Echevarria Gait/Transferring : Normal, bedrest, immobile Echevarria Mental Status : Oriented to own ability Echevarria Fall Risk Score : 15 ECHEVARRIA Fall Scale Risk Level : 0-24 Low Risk [place] Fall Interventions : Adequate lighting, Assistive devices within reach, Bed in low position, Call device within reach, Fall prevention handout/education per facility policy, Frequent orientation to call device, Frequent orientation to surroundings, Hourly comfort/safety rounds, Non-slip footwear, Personal items within reach, Reinforced to call for assistance before getting out of bed, Room free of clutter/spills, Upper side-rails up, Wheels locked, Wires/Cords secured Fall Risk Scale Calc Temp : 0 HINA SALGADO RN - 2019 19:25 EST Health Histories Smoking Status : Other: 2 packs per day Smokeless Tobacco Status : Never HINA SALGADO RN - 2019 19:25 EST Social History (As Of: 2019 19:34:12 EST) Tobacco: 10 or more cigarettes (1/2 pack or more)/day in last 30 days Smoking Status. Never Smokeless Tobacco Status. (Last Updated: 2019 19:29:19 EST by HINA SALGADO RN) Years of Use: 30. Second Hand Smoke Exposure: Yes. (Last Updated: 2019 19:30:20 EST by HINA SALGADO RN) Alcohol: Alcohol Use History Yes. Date/Time of Last Drink: once a year. (Last Updated: 2019 19:30:20 EST by HINA SALGADO RN) Substance Abuse: Drug Use Hx: Yes. Use in Last 12 Months: Yes. (Last Updated: 2019 19:30:43 EST by HINA SALGADO RN) Height and Weight, Clinical Dosing Height Source : Chart Height Entry Format : [place] Height, Feet : 5 ft(Converted to: 152 cm, 60 Inch) Height, Inches : 6 Inch(Converted to: 0 ft 6 Inch, 15.24 cm) Clinical Height : 167.64 cm Weight Source : Standing scale Weight Entry Format : [place] Clinical Dosing Weight : 59.09 kg Weight, Pounds : 130 lb Body Surface Area (BSA) : 1.67 m2 Body Mass Index : 21 kg/m2 [place] Body Weight : 59 kg HINA SALGADO RN - 2019 19:25 EST Infectious Disease History Active Surveillance Screen Assessment : Patient transferred from another hospital/ED Active Surveillance Screen Positive : Yes Isolation Needed : Contact Regina Moran RN-Resource - 07/21/2019 1:20 EST Contact With Traveler to Advisory Region : No Tuberculosis Symptoms : None HINA SALGADO RN - 2019 19:39 EST Infectious Disease History : None Fever/Chills Last 48 Hours : No Travel To Regions with Travel Advisories : No Travel Outside [place] Within Last 30 Days : No HINA SALGADO RN - 2019 19:25 EST Tetanus Immunization Status Previous Tetanus Immunizations : No qualifying data available. Tetanus Immunization : Greater than 5 years HINA SALGADO RN - 2019 19:25 EST Influenza Vaccine Asmt, Adult Previous Vaccines from Immunization Schedule : No qualifying data available. Influenza Immunization, Current Season : No Inactivated Flu Vaccine Contraindications : No contraindications to inactivated influenza vaccine Transplant Workup/Recent Transplant : No Order for Influenza Vaccine : Order for influenza vaccine sent to pharmacy HINA SALGADO RN - 2019 19:25 EST Pneumococcal Vaccine Previous Vaccines from Immunization Schedule : No qualifying data available. Pneumonia Immunization Received : No Pneumococcal Risk Assessment < Age 65 : None HINA SALGADO RN - 2019 19:25 EST Order Details Transport Mode Order Detail : Ambulatory Order Detail : 0 IV Order Detail : 1 Oxygen Order Detail : 1 Nurse Collect Order Detail : 0 Lift/Transfer : Independent Central Line Order Detail : No Room Service : Appropriate Arterial Line : No HINA SALGADO RN - 2019 19:25 EST Nutrition History Feeding Ability : Independent Eating Poorly Due to Decreased Appetite : Yes Unplanned Weight Loss in Past 3-6 Months : Yes Unplanned Weight Loss Amount : 14-23 lbs/6.4-10.5 kg Malnutrition Screening Tool Total(mal) : 3 Malnutrition Screening Tool Risk Level : Patient at risk HINA SALGADO RN - 2019 19:25 EST [place] Suicide Severity Rating Scale (C-SSRS) CSSRS Past Month Wish to be : No CSSRS Past Month Suicidal Thoughts : No CSSRS Lifetime Suicide Behavior : No Suicide Severity Rating Score : 0 Suicide Severity Rating : No Additional Care Required at this time HINA SALGADO RN - 2019 19:25 EST Psychosocial History Currently in Unsafe Situation : No HINA SALGADO RN - 2019 19:25 EST Sleep Apnea Risk Assmt Hx of Obstructive Sleep Apnea Diagnosis : No Snore Loudly : No Tired, Fatigued, or Sleepy During Day : No Observed Stopping Breathing During Sleep : No Have/Are Being Treated for Hypertension : No BMI Greater Than 35 kg/m2 : No Age over 50 Years Old : No Neck Circumference Greater Than 40 cm : No Gender Male : No STOP-BANG Sleep Apnea Risk Level Score : 0 HINA SALGADO RN - 2019 19:25 EST Spiritual/Cultural Needs Zoroastrianism Preference : Advent HINA SALGADO RN - 2019 19:25 EST Valuables and Belongings Valuables and Belongings : Jewelry, Personal devices, Personal items, No comfort items, No personal items, No assistive devices, No respiratory devices, No medications Personal Device Disposition : With patient Jewelry : Ring Jewelry Disposition : Other: 6 rings Personal Devices : Dentures, upper, Dentures, lower Personal Items : Cell phone Personal Items Disposition : With patient HINA SALGADO RN - 2019 19:25 EST documented in this encounter Plan of Treatment Upcoming Encounters Date Type Department Care Team (Late st Contact Info) Description 04/12/2025 7:30 AM EDT Hospital Encounter [facility] Operating Room 1 [place] [address] Bill Graham MD [address] [place] [address] 04/12/2025 7:30 AM EDT Anesthesia Event [facility] Operating Room 1 [place] [address] Lucio Szymanski MD [address] [place] [address] 04/12/2025 7:30 AM EDT - 04/12/2025 8:55 AM EDT Surgery [facility] Operating Room 1 [place] [address] Bill Graham MD [address] [place] [address] (LAPAROSCOPIC PERITONEAL DIALYSIS CATHETER INSERTION) Scheduled Procedures Name Priority Associated Diagnoses Date/Ti me LAPAROSCOPY, WITH PERITONEAL DIALYSIS CATHETER INSERTION Chronic kidney disease, stage V (HCC) 04/12/2025 7:30 AM EDT documented as of this encounter Visit Diagnoses Not on filedocumented in this encounter Care Teams Psychiatric Clinical Nurse Specialist Relationship Specialty Start Date End Date Félix Monroe, CLOTH EXAMINER MACHINE [address] [facility] [address] [place] [address] PCP - General Nurse Practitioner 08/25/22 documented as of this encounter
--- OUTSIDE RECORDS SUMMARY | 2025-04-11 11:01 | XMS_ITS | Encounter Summary ---
Author Organization [employer] ([place], [place], [place], [place]) Address [address] [place] [address] Care Team Providers Care Senior Financial Accountant Name Role Phone Félix Monroe APRN Primary Care Provider [phone] Encounter Details Date Type Department Care Team (Late st Contact Info) Description 09/04/2019 Transcribed Document [facility] [place] [address] ProviderMaria Esther MD [address] [place] [address] Social History Tobacco Use Types Packs/Day Years Used Date Smoking Tobacco: Never Assessed Comments Unknown Sex and Gender Information Value Date Recorded Sex Assigned at Not on file Legal Sex Female 6:53 PM CDT Gender Identity Not on file Sexual Orientation Not on file documented as of this encounter Miscellaneous Notes * Cerner Conversion Note - Maria Esther Reyes MD - 09/04/2019 10:07 AM RESPIRATORY THERAPY TECHNICIAN Patient: CORRIE SMITH Age: 49 years Sex: Female : 1970 Associated Diagnoses: None Author: DARRIUS TOUSSAINT APRN-CTS Admission Date: Discharge Date: Attending: Dr. Александр Valdez, CT Surgery PCP: Dr. Susu García CARD: Dr. Chava Lockett Consultants: Dr. Mendoza Gallardo, Nephrology Brief History:This [...] 96 % Oxygen Therapy Mode Room air 09/04/2019 6:47 EST Heart Rate Monitored 71 bpm General: Alert and oriented. Respiratory: Lungs are [...] % 21.8 % Lymph # 1.81 x10(3)/uL Rice % 8.3 % Rice # 0.69 K/uL Eos % 2.6 % Eos # 0.22 x10(3)/uL Baso % 0.5 % Baso # 0.04 x10(3)/uL Slide Review No IG# 0.04 x10(3)/uL IG% 0.50 % PT 49.8 Second(s) HI INR 4.7 HI Interpretation: Radiology Results (Last 48 hours) [id number] -- 08/29/2019 07:08 CR Chest 1 Vw [...] and the pt tolerated well Transfer to [facility] 09/01/19 NSR???80, PW/paced 80 backup INR???4.6 today [...] Lasix and spiralactone now and at discharge Electronically signed by Nir, [facility] Conversion Edge Runner Cerner at 10/28/2022 7:14 PM CDT documented in this encounter Plan of Treatment Upcoming Encounters Date Type Department Care Team (Late st Contact Info) Description 04/12/2025 7:30 AM EDT Hospital Encounter [facility] Operating Room 1 [place] [address] [place] [address] [place] [address] [address] [place] [address] 04/12/2025 7:30 AM EDT Anesthesia Event [facility] Operating Room [address] [place] [address] Lucio Szymanski MD [address] [place] [address] 04/12/2025 7:30 AM EDT - 04/12/2025 8:55 AM EDT Surgery [facility] Operating Room [address] [place] [address] [place] [address] [place] [address] [place] [address] (LAPAROSCOPIC PERITONEAL DIALYSIS CATHETER INSERTION) Scheduled Procedures Name Priority Associated Diagnoses Date/Ti me LAPAROSCOPY, WITH PERITONEAL DIALYSIS CATHETER INSERTION Chronic kidney disease, stage V (HCC) 04/12/2025 7:30 AM EDT documented as of this encounter Visit Diagnoses Not on filedocumented in this encounter Care Teams Senior Financial Accountant Relationship Specialty Start Date End Date Félix Monroe, LABORATORY ASSISTANT [address] [facility] [address] [place] [address] PCP - General Nurse Practitioner 08/25/22 documented as of this encounter
--- OUTSIDE RECORDS SUMMARY | 2025-04-11 11:01 | XMS_ITS | Encounter Summary ---
Author Organization Healthcare Address [address] [place] [address] Care Team Providers Care Inventory Transcriber Name Role Phone Az David MD Primary Care Provider [phone] Reason for Visit * Reason Onset Date Comments HCN - Patient Message 04/03/2025 Encounter Details Date Type Department Care Team (Late st Contact Info) Description 04/03/2025 Telephone [facility] Jorge A [address] [place] [address] Lenore Cosme MD [address] [place] [address] HCN - Patient Message Social History Tobacco Use Types Packs/Day Years [...] any time in the past 12 m [address] [place], were you homeless or living in a assisted (including now)? No 02/26/2025 CAGE ASSESSMENT Answer [...] drink first t mohamud in the morning (EYE-BUILDING CLEANING SUPERVISOR) to steady your nerves or to get rid of a hangover? 0 03/23/2023 CAGE Questionnaire Score 0 023 Utilities Answer Date Recorded In the past 12 months has th e electric, gas, oil, or water [employer] threatened to shut off services in your [...] encounter Miscellaneous Notes * Telephone Encounter - Rosa Mar RN - 04/04/2025 11:16 AM EDT Updated letter faxed. Also sent to coumadin clinic to update for warfarin management * Telephone Encounter - Joan Atkins - 04/03/2025 2:41 PM EDT Clinical Concern/Question Reason for Call: Dr. Bill Graham's office (General Surgery) calling to get cardiac clearance for PDcath placement Surgery is 04/12 Best contact number: Dr. Bill Graham's office [phone]- Angelica Optimal time of day to reach caller: ANYTIME Additional comments/information from caller: Note: Please do not reply to this message. Follow-up communication and further actions as a result of this message need to be communicated with the patient directly, if the patient is not active onMyChart. If the patient is active on MyChart, they will receive notification of the communication/outcome via MyChart. documented in this encounter Plan of Treatment Upcoming Encounters Date Type Department Care Team (Late st Contact Info) Description 05/24/2025 1:40 PM EST Office Visit [facility] Jorge A [address] [facility] [place] [address] Lenore Cosme MD [address] [place] [address] 08/02/2025 1:40 PM EST Office Visit [facility] Jorge A [address] [place] [address] Lenore Cosme MD [address] [place] [address] documented as of this encounter Visit Diagnoses [...] documented as of this encounter Care Teams Inventory Transcriber Relationship Specialty Start Date End Date Az David MD [address] [place] [address] PCP - General 03/22/23 documented as of this encounter
--- OUTSIDE RECORDS SUMMARY | 2025-04-11 11:01 | XMS_ITS | Encounter Summary ---
Author Organization [employer] ([place], [place], [place], [place]) Address [address] [address] Care Team Providers Care Newspaper Managing Editor Name Role Phone Félix Monroe APRN Primary Care Provider [phone] Encounter Details Date Type Department Care Team (Late st Contact Info) Description 07/23/2019 Transcribed Document [facility] [address] [place] [address] Emanuel Pratt MD [address] [place] [address] Social History Tobacco Use Types Packs/Day Years Used Date Smoking Tobacco: Never Assessed Comments Unknown Sex and Gender Information Value Date Recorded Sex Assigned at Not on file Legal Sex Female 6:53 PM CDT Gender Identity Not on file Sexual Orientation Not on file documented as of this encounter Miscellaneous Notes * Cerner Conversion Note - Emanuel Pratt MD - 07/23/2019 9:16 AM EST Patient: CORRIE SMITH Age: 49 years Sex: Female : 1970 Associated Diagnoses: None Author: EMANUEL PRATT MD-CAR Subjective NAD Patient seen and examined at the bedside. I explained to her that she has mitral regurgitations and had a NSTEMI. and she will need ischemic work up but waiting for improvement in renal function. Health Status Allergies: Allergic Reactions (Selected) Severity [...] influenza virus vaccine, inactivated: 0.5 mL, IntraMuscular, [id number], No qualifying data available , Medications (13) Active Scheduled: (7) amLODIPine 10 [...] Gram 1 Packet, Oral, Daily Problem list: All Problems COPD (chronic obstructive pulmonary disease) / SNOMED CT 66826696 / Confirmed HTN - Hypertension / SNOMED CT 1940847430 / Confirmed, Active Problems (2) COPD (chronic obstructive pulmonary disease) HTN - Hypertension Objective VS/Measurements Vitals Signs (last 24 hrs) Last Charted Minimum Maximum Temp 97.9 (JUL 23 08:12) 97.9 (JUL 23 08:12) 98 (JUL 22 20:38) Mon HR 81 (JUL 23 08:12) 72 (JUL 23 02:28) 81 (JUL 23 08:12) Resp Rate 16 (JUL 23 08:12) 16 (JUL 23 06:21) 20 (JUL 22 20:38) SBP 130 (JUL 23 08:12) 119 (JUL 22 10:05) H 154 (JUL 22:38) DBP 88 (JUL 23 08:12) 80 (JUL 22 14:24) H 102 (JUL 22:38) MAP 97 (JUL 23 08:12) 95 (JUL 22 14:24) 117 (JUL 22 20:38) SpO2 97 (JUL 23:12) 95 (JUL 22 09:00) 97 (JUL 22 20:38) General: Alert and oriented, No acute distress. Eye: Pupils are equal, round and reactive to light, Extraocular movements are intact. HENT: Normocephalic, Oral mucosa is moist. Neck: Supple, Non-tender, No carotid bruit, No jugular venous distention. Respiratory: Lungs are clear to auscultation, Respirations are non-labored, Breath sounds are equal, Symmetrical chest wall expansion. Cardiovascular: Normal rate, Regular rhythm, No gallop, Good pulses equal in all extremities, Normal peripheral perfusion, Grade II/ DEYSI. Gastrointestinal: Soft, Non-tender, Non-distended, Normal bowel sounds. Genitourinary: Exam deferred. Musculoskeletal: Normal range of motion, Normal strength, No deformity. Integumentary: Warm, Dry, No rash. Neurologic: Alert, Oriented, No focal deficits. Psychiatric: Cooperative, Appropriate mood & affect. Results Review JUL 23 03:59 137 104 H 28 / 104 L 3.4 31 H 2.40 \ JUL 23 03:59 \ L 11.1 / 6.4 164 / L 33.2 \ Cardiac Markers (Current Encounter/Past 24 Hours) ProBNP 6814 pg/mL HI 07/22/2019 10:56 Radiology Results (Last 48 hours) [id number] -- 07/22/2019 13:33 US Renal Comp (07/21/2019 10:56) Result: ULTRASOUND [...] within normal limits.IMPRESSION: Morphologically normal kidneys bilaterally. 07/21/2019 Impression: Normal sized left ventricle. Moderate left ventricular hypertrophy. Visually estimated ejection fraction 50-55%. Abnormal systolic strain pattern. Abnormal diastolic function. Thickened mitral valve leaflets with appearance of rheumatic mitral disease. Severe mitral regurgitation. Mild mitral stenosis. Mild pulmonic stenosis. Severely Dilated left atrium. No masses or thrombi are seen. Impression and Plan IMPRESSION: Mildly elevated troponin in setting of borderline anemia. No chest pain Troponin 0.082, 0.064 CHF type unknown orthopnea Elevated ProBNP > 12,000 Prolonged QT 554 LETY Cr 2.0 ?? MR per Outside report ECHO pending COPD Ongoing tobacco abuse PLAN: 07/23/2019 S/P mild elevation of cardiac biomarkers, trended down on medical treatment. patient denied any chest pain. Patient will need left heart cath for her NSTEMI and valvular heart disease pending improvement in renal function. 07/22/2019 Mild elevation of cardiac biomarkers. Patient has valvular heart disease will need ischemic workup. Will Schedule patient for left heart catheterization on Wednesday if her renal function improves. Severe mitral regurgitation with mildly reduced ejection fraction. Dependence on the finding on coronary angiogram further management will be planned. 07/21/2019 Mild elevation in cardiac biomarkers likely secondary [...] Encounter [facility] Operating Room 1 [place] [address] [place] [address] [place] [address] 04/12/2025 7:30 AM EDT Anesthesia Event [facility] Operating Room 1 [place] [address] Lucio Szymanski MD [address] [place] [address] 04/12/2025 7:30 AM EDT - 04/12/2025 8:55 AM EDT Surgery [facility] Operating Room [address] [place] [address] Bill Graham MD [address] [place] [address] (LAPAROSCOPIC PERITONEAL DIALYSIS CATHETER INSERTION) Scheduled Procedures Name Priority Associated Diagnoses Date/Ti me LAPAROSCOPY, WITH PERITONEAL DIALYSIS CATHETER INSERTION Chronic kidney disease, stage V (HCC) 04/12/2025 7:30 AM EDT documented as of this encounter Visit Diagnoses Not on filedocumented in this encounter Care Teams Newspaper Managing Editor Relationship Specialty Start Date End Date Félix Monroe, PROGRAMMING EQUIPMENT OPERATOR [address] [facility] [address] [place], [place] [id number] PCP - General Nurse Practitioner 08/25/22 documented as of this encounter
--- OUTSIDE RECORDS SUMMARY | 2025-04-11 11:01 | XMS_ITS | Encounter Summary ---
Author Organization [employer] ([place], [place], [place], [place]) Address [address] [address] Care Team Providers Care Car Seat Upholsterer Name Role Phone Félix Monroe APRN Primary Care Provider Encounter Details Date Type Department Care Team (Late st Contact Info) Description 2019 Transcribed Document [facility] Family Medicine [address] [place] [address] ProviderMaria Esther MD [address] [place], [place] [address] Social History Tobacco Use Types Packs/Day Years Used Date Smoking Tobacco: Never Assessed Comments Unknown Sex and Gender Information Value Date Recorded Sex Assigned at Not on file Legal Sex Female 6:53 PM CDT Gender Identity Not on file Sexual Orientation Not on file documented as of this encounter Miscellaneous Notes * Cerner Conversion Note - Maria Esther ProviderMD - 2019 7:51 PM MACHINE CLOTHING REPLACER Consult Phone Call Documentation Entered On: 07/21/2019 8:43 EST Performed On: 07/21/2019 8:00 EST by Garth Townsend Marketing Underwriter-Health Unit Coord Phone Call for Consults Consult Phone Call/Page Attempt : First call Garth Townsend Marketing Underwriter-Health Unit Coord - 07/21/2019 8:40 EST Consult Reason : SEVERE MR, Pulmonary edema Garth Townsend Marketing Underwriter-Health Unit Coord - 07/21/2019 8:44 EST Physician Requesting Consult : MIKAYLA THOMAS DO Physician Requested for Consult : FELIZ WILSON MD-CAT Provider Service Notified Name : Cardio surgery Date and Time Call Returned : 07/21/2019 8:15 EST Garth Townsend Care Asst-Health Unit Coord - 07/21/2019 8:40 EST documented in this encounter Plan of Treatment Upcoming Encounters Date Type Department Care Team (Late st Contact Info) Description 04/12/2025 7:30 AM EDT Hospital Encounter [facility] Operating Room 1 [place] [address] [place] [address] [place] [address] [address] [place] [address] 04/12/2025 7:30 AM EDT Anesthesia Event [facility] Operating Room [address] [place] [address] Lucio Szymanski MD [address] [place] [address] 04/12/2025 7:30 AM EDT - 04/12/2025 8:55 AM EDT Surgery [facility] Operating Room [address] [place] [address] Bill Graham MD [address] [place] [address] (LAPAROSCOPIC PERITONEAL DIALYSIS CATHETER INSERTION) Scheduled Procedures Name Priority Associated Diagnoses Date/Ti me LAPAROSCOPY, WITH PERITONEAL DIALYSIS CATHETER INSERTION Chronic kidney disease, stage V (HCC) 04/12/2025 7:30 AM EDT documented as of this encounter Visit Diagnoses Not on filedocumented in this encounter Care Teams Car Seat Upholsterer Relationship Specialty Start Date End Date Félix Monroe, UTILIZATION MANAGEMENT NURSE [address] [facility] [address] [place] [address] PCP - General Nurse Practitioner 08/25/22 documented as of this encounter
--- OUTSIDE RECORDS SUMMARY | 2025-04-11 11:01 | XMS_ITS | Encounter Summary ---
Author Organization [employer] ([place], [place], [place], [place]) Address [address] [address] Care Team Providers Care Power And Recovery Shift Engineer Name Role Phone Monroe Félix Francisco RODRIGUEZ Primary Care Provider [phone] Encounter Details Date Type Department Care Team (Late st Contact Info) Description 09/04/2019 Transcribed Document [facility] Family [place] [address] ProviderMaria Esther MD [address] [place], [place] [address] Social History Tobacco Use Types Packs/Day Years Used Date Smoking Tobacco: Never Assessed Comments Unknown Sex and Gender Information Value Date Recorded Sex Assigned at Not on file Legal Sex Female 6:53 PM CDT Gender Identity Not on file Sexual Orientation Not on file documented as of this encounter Miscellaneous Notes * Cerner Conversion Note - Maria Esther Reyes MD - 09/04/2019 11:47 AM SLAB DEPILER OPERATOR Final Discharge Planning Entered On: 09/04/2019 11:48 EST Performed On: 09/04/2019 11:47 EST by Yolanda Ramsey RN-Tank Hoop Bender Final Discharge Planning Discharge Arrangements : Patient Post-Acute Information Patient Name: CORRIE SMITH Gender: Female : [birth year] Age: 49 Years No Post-Acute Placement(s) Listed No Post-Acute Service(s) Listed No [place] Referral(s) Listed Patient Offered Choice/Affiliations Explained : Yes Transportation Needs : Family/Friend Follow Up Appointment Scheduled : Yes Is Patient High/Moderate Readmission Risk? : Yes High Readmission Risk - Home, no Home Health : Make post-discharge physician appointment within 72 hours of discharge Patient/Family Notified of Plan : Yes Support Person/Pt Rep Notified of Plan : Yes Patient/Family Notified : Patient/ Is Patient Ready for Discharge? : Yes Physician Notified Patient is Ready for Discharge? : Yes Discharge To Care Management : Home/Residential/Jail or Self Care -01 Yolanda Ramsey RN-Tank Hoop Bender - 09/04/2019 11:47 EST Final Narrative Note Final Narrative Note : Patient is a high readmission risk. ELOS: 6 days POD#6 Patient discharged home with . Yolanda Ramsey RN-Tank Hoop Bender - 09/04/2019 11:47 EST Electronically signed by Evaristo Loyola Conversion Production Manufacturing Worker Cerner at 10/28/2022 7:11 PM CDT documented in this encounter Plan of Treatment Upcoming Encounters Date Type Department Care Team (Late st Contact Info) Description 04/12/2025 7:30 AM EDT Hospital Encounter [facility] Operating Room 1 [place] [address] Bill Graham MD [address] [place] [address] 04/12/2025 7:30 AM EDT Anesthesia Event [facility] Operating Room 1 [place] [address] Lucio Szymanski MD [address] [place] [address] 04/12/2025 7:30 AM EDT - 04/12/2025 8:55 AM EDT Surgery [facility] Operating Room 1 [place] [address] Bill Graham MD [address] [place] [address] (LAPAROSCOPIC PERITONEAL DIALYSIS CATHETER INSERTION) Scheduled Procedures Name Priority Associated Diagnoses Date/Ti me LAPAROSCOPY, WITH PERITONEAL DIALYSIS CATHETER INSERTION Chronic kidney disease, stage V (HCC) 04/12/2025 7:30 AM EDT documented as of this encounter Visit Diagnoses Not on filedocumented in this encounter Care Teams Power And Recovery Shift Engineer Relationship Specialty Start Date End Date Félix Monroe, CONFERENCE PLANNER [address] [facility] [address] [place], [place] [id number] PCP - General Nurse Practitioner 08/25/22 documented as of this encounter
--- OUTSIDE RECORDS SUMMARY | 2025-04-11 11:01 | XMS_ITS | Encounter Summary ---
Author Organization [employer] ([place], [place], [place], [place]) Address [address] [place] [address] Care Team Providers Care Customs Inspector Name Role Phone Félix Monroe APRN Primary Care Provider [phone] Reason for Referral * CAT Scan (Routine) - Closed Specialty Diagnoses / Procedures Referred By Contac t Referred To Contact Radiology Diagnoses Other infectious disease Procedures CT ABDOMEN/PELVIS WITHOUT IV [place] [address] [place] [address] [address] [place] [address] Phone: tel: fax: [facility] [place] [address] [place] [address] [address] [place] [address] Phone: tel: fax: Referral ID Status Reason Start Date Expiration Date Visits Re quested Visits Authorized [id number] Closed 03/19/2025 03/19/2026 1 1 Encounter Details Date Type Department Care Team (Late st Contact Info) Description 03/14/2025 Orders Only [facility] [address] [place] [address] [place] [address] Bill Graham MD [address] [place] [address] [address] [place] [address] Other infectious disease (Primary Dx) Social History Tobacco Use Types [...] Date Josias rded Speak language other than Portuguese at home Not on file 07/30/2023 Want [...] Description 04/12/2025 7:30 AM EDT Hospital Encounter [facility] Operating Room 1 [place] [address] Bill Graham MD [address] [place] [address] 04/12/2025 7:30 AM EDT Anesthesia Event [facility] Operating Room 1 [place] [address] Lucio Szymanski MD [address] [place] [address] 04/12/2025 7:30 AM EDT - 04/12/2025 8:55 AM EDT Surgery [facility] Operating Room 1 [place] [address] Bill Graham MD [address] [place] [address] (LAPAROSCOPIC PERITONEAL DIALYSIS CATHETER INSERTION) Scheduled Procedures Name Priority Associated Diagnoses Date/Ti mt LAPAROSCOPY, WITH PERITONEAL DIALYSIS CATHETER INSERTION Chronic kidney disease, stage V (HCC) 04/12/2025 7:30 AM EDT documented as of this encounter Results * CT ABDOMEN/PELVIS WITHOUT [...] by Chauncey Cosby PA-C. Bill Graham MD IMG CT ORDERABLES Final Result documented in this encounter Visit Diagnoses Diagnosis Other infectious disease- Primary Other infectious disease Chronic kidney disease, stage V (HCC) Chronic kidney disease, Stage V documented in this encounter Care Teams Customs Inspector Relationship Specialty Start Date End Date Félix Monroe, MARITIME ENGINEER [address] [address] PCP - General Nurse Practitioner 08/25/22 documented as of this encounter
--- OUTSIDE RECORDS SUMMARY | 2025-04-11 11:01 | XMS_ITS | Encounter Summary ---
Author Organization [employer] ([place], [place], [place], [place]) Address [address] [address] Care Team Providers Care Analyst Geochemical Prospecting Name Role Phone Félix Monroe APRN Primary Care Provider [phone] Encounter Details Date Type Department Care Team (Late st Contact Info) Description 07/22/2019 Transcribed Document [address] [address] Emanuel Pratt MD [address] [place] [address] Social History Tobacco Use Types Packs/Day Years Used Date Smoking Tobacco: Never Assessed Comments Unknown Sex and Gender Information Value Date Recorded Sex Assigned at Not on file Legal Sex Female 6:53 PM CDT Gender Identity Not on file Sexual Orientation Not on file documented as of this encounter Miscellaneous Notes * Cerner Conversion Note - Emanuel Pratt MD - 07/22/2019 8:53 AM EST Patient: CORRIE SMITH Age: 49 years Sex: Female : 1970 Associated Diagnoses: None Author: EMANUEL PRATT MD-CAR Subjective NAD Patient seen and examined at the bedside. Awake alert oriented ??3 not visible to pain no events overnight. No recurrence of her chest pain discussed with her the results on her 2-D echo. If her renal function improved will plan for left heart catheterization. We recommend evaluation of the mitral valve by [facility]. Health Status Problem list: Active Problems (2) COPD (chronic obstructive pulmonary disease) HTN - Hypertension Objective VS/Measurements Measurements from flowsheet : Measurements 07/22/2019 4:00 EST Height/Length, TAJIK (ft) 5 ft Height/Length TAJIK 6 Inch CLINICALHEIGHT 167.64 cm Routine Weight, Pounds 131 lb Routine Weight, Ounces 7 oz Routine Weight Calculation 59.74 kg Body Mass Index (BMI), Routine 21.26 kg/m2 Body Surface Area (BSA), Routine 1.67 m2 , Vitals Signs (last 24 hrs) Last Charted Minimum Maximum Temp 97.5 (JUL 22:37) 97.5 (JUL 22:) 97.4 (JUL 21) Apical HR 80 (JUL 21:55) 80 (JUL 21:55) 80 (JUL 21:55) Mon HR 70 (JUL 22:) 61 (JUL 22:24) 83 (JUL 21) Resp Rate 20 (JUL 22:) 20 (JUL 21:) 20 (JUL 21:) SBP H 141 (JUL 22:) 138 (JUL 22:24) H 189 (JUL 21:) DBP H 92 (JUL 22:) H 91 (JUL 22:24) H 113 (JUL 21:) MAP 107 (JUL 22:) 105 (JUL 22:24) 133 (JUL 21:) SpO2 94 (JUL 22:) L 93 (JUL 22:24) 100 (JUL 21 09:00) General: Alert and oriented, No acute distress. [...] all extremities, Normal peripheral perfusion, Grade II/ DEYIS. Gastrointestinal: Soft, Non-tender, Non-distended, Normal bowel sounds. Genitourinary: Exam deferred. Musculoskeletal: Normal range of motion, Normal strength, No deformity. Integumentary: Warm, Dry, No rash. Neurologic: Alert, Oriented, No focal deficits. Psychiatric: Cooperative, Appropriate mood & affect. Results Review JUL 22 03:25 139 103 H 26 / H 111 L 2.9 31 H 2.10 \ JUL 22 03:25 \ 11.4 / 6.3 L 155 / 34.1 \ Cardiac Markers (Current Encounter/Past 24 Hours) ProBNP 6814 pg/mL HI 07/22/2019 04:09 Radiology Results (Last 48 hours) [id number] -- 2019 19:20 CR Chest 1 Vw [...] ECHO pending COPD Ongoing tobacco abuse PLAN: 07/22/2019 Mild elevation of cardiac biomarkers. Patient [...] Description 04/12/2025 7:30 AM EDT Hospital Encounter [facility] Operating Room 1 [place] [address] Bill Graham MD [address] [place] [address] 04/12/2025 7:30 AM EDT Anesthesia Event [facility] Operating Room 1 [place] [address] Lucio Szymanski MD [address] [place] [address] 04/12/2025 7:30 AM EDT - 04/12/2025 8:55 AM EDT Surgery [facility] Operating Room 1 [place] [address] Bill Graham MD [address] [place] [address] (LAPAROSCOPIC PERITONEAL DIALYSIS CATHETER INSERTION) Scheduled Procedures Name Priority Associated Diagnoses Date/Ti me LAPAROSCOPY, WITH PERITONEAL DIALYSIS CATHETER INSERTION Chronic kidney disease, stage V (HCC) 04/12/2025 7:30 AM EDT documented as of this encounter Visit Diagnoses Not on filedocumented in this encounter Care Teams Analyst Geochemical Prospecting Relationship Specialty Start Date End Date Félix Monroe, SAMPLE PREPARATION SUPERVISOR [address] [facility] [address] [place] [address] PCP - General Nurse Practitioner 08/25/22 documented as of this encounter
--- OUTSIDE RECORDS SUMMARY | 2025-04-11 11:01 | XMS_ITS | Encounter Summary ---
Author Organization [employer] ([place], [place], [place], [place]) Address [address] [place] [address] Care Team Providers Care Animal Care Worker Name Role Phone Félix [place] MICHAEL Primary Care Provider [phone] Encounter Details Date Type Department Care Team (Late st Contact Info) Description 09/04/2019 Transcribed Document [facility] [place] Family Medicine [address] [place] [address] ProviderMaria Esther MD [address] [place], [place] [address] Social History Tobacco Use Types Packs/Day Years Used Date Smoking Tobacco: Never Assessed Comments Unknown Sex and Gender Information Value Date Recorded Sex Assigned at Not on file Legal Sex Female 6:53 PM CDT Gender Identity Not on file Sexual Orientation Not on file documented as of this encounter Miscellaneous Notes * Cerner Conversion Note - Maria Esther ProviderMD - 09/04/2019 12:42 PM LOCOMOTIVE OPERATOR HELPER Nursing Discharge Summary Entered On: 09/04/2019 12:42 EST Performed On: 09/04/2019 12:42 EST by NIRAV SALCEDO, health care sanitary technician Documentation Discharge Date/Time : 09/04/2019 13:05 EST Silva He RN - 09/04/2019 13:07 EST Patient Disposition, General : Discharge Discharge To : Home with ambulatory/outpatient follow-up Mode Of Departure, General Discharge : Private vehicle Accompanied By, Discharge : Spouse IV Discontinued : Yes Medications Given to Patient : No Personal Belongings With Patient : Yes Pt's Own Supply of Medications Returned : No Prescriptions Given to Patient : Yes Discharge Instructions Reviewed With, Opportunity For Questions Given : Patient Patient Education Completed : Yes Number of Prescriptions Given : 1 Teaching Method : Explanation, Printed materials, Teach back method Teaching Evaluation : Verbalizes understanding Education Comment : family educated on upcoming POC and visitor policy Worker's Compensation Paperwork Completed : NIRAV Lopez, RN - 09/04/2019 12:42 EST Electronically signed by [facility] Conversion Black Powder Glazing Operator Cerner at 10/28/2022 7:13 PM CDT documented in this encounter Plan of Treatment Upcoming Encounters Date Type Department Care Team (Late st Contact Info) Description 04/12/2025 7:30 AM EDT Hospital Encounter [facility] Operating Room [address] [place] [address] [place] [address] [place] [address] [address] 04/12/2025 7:30 AM EDT Anesthesia Event [facility] Operating Room [address] [place] [address] Lucio Szymanski MD [address] [place] [address] 04/12/2025 7:30 AM EDT - 04/12/2025 8:55 AM EDT Surgery [facility] Operating Room [address] [place] [address] Bill Graham MD [address] [place] [address] (LAPAROSCOPIC PERITONEAL DIALYSIS CATHETER INSERTION) Scheduled Procedures Name Priority Associated Diagnoses Date/Ti me LAPAROSCOPY, WITH PERITONEAL DIALYSIS CATHETER INSERTION Chronic kidney disease, stage V (HCC) 04/12/2025 7:30 AM EDT documented as of this encounter Visit Diagnoses Not on filedocumented in this encounter Care Teams Animal Care Worker Relationship Specialty Start Date End Date Félix [place], WHARF BUILDER [address] [facility] [address] [place] [address] PCP - General Nurse Practitioner 08/25/22 documented as of this encounter
--- OUTSIDE RECORDS SUMMARY | 2025-04-11 11:01 | XMS_ITS | Encounter Summary ---
Author Organization [employer] ([place], [place], [place], [place]) Address [address] [place] [address] Care Team Providers Care Children'S Aide Name Role Phone Fer Félix Singh MICHAEL Primary Care Provider [phone] Encounter Details Date Type Department Care Team (Late st Contact Info) Description 07/24/2019 Transcribed Document [facility] [place] [address] [place] [address] ProviderMaria Esther MD [address] [place] [address] Social History Tobacco Use Types Packs/Day Years Used Date Smoking Tobacco: Never Assessed Comments Unknown Sex and Gender Information Value Date Recorded Sex Assigned at Not on file Legal Sex Female 6:53 PM CDT Gender Identity Not on file Sexual Orientation Not on file documented as of this encounter Miscellaneous Notes * Cerner Conversion Note - Maria Esther ProviderMD - 07/24/2019 2:00 AM FIELD IDENTIFICATION SPECIALIST Hospice Art Therapist Details Entered On: 07/25/2019 3:56 EST Performed On: 07/24/2019 2:00 EST by QUINCY LOVE, RN Order Details Transport Mode Order Detail : Ambulatory Isolation Precautions Order Detail : Standard Precautions Order Detail : 0 IV Order Detail : 1 Oxygen Order Detail : 0 Nurse Collect Order Detail : 0 Lift/Transfer : Independent Central Line Order Detail : No Room Service : Appropriate Arterial Line : No QUINCY LOVE, RN - 07/25/2019 3:56 EST Electronically signed by [facility] Conversion Spring Floor Service Worker Cerner at 10/28/2022 7:02 PM CDT documented in this encounter Plan of Treatment Upcoming Encounters Date Type Department Care Team (Late st Contact Info) Description 04/12/2025 7:30 AM EDT Hospital Encounter [facility] Operating Room 1 [place] [address] Bill Graham MD [address] [facility] [address] [place] [address] 04/12/2025 7:30 AM EDT Anesthesia Event [facility] Operating Room 1 [place] [address] Lucio Szymanski MD [address] [place] [address] 04/12/2025 7:30 AM EDT - 04/12/2025 8:55 AM EDT Surgery [facility] Operating Room 1 [place] [address] [place] [address] [place] [address] [address] [place] [address] (LAPAROSCOPIC PERITONEAL DIALYSIS CATHETER INSERTION) Scheduled Procedures Name Priority Associated Diagnoses Date/Ti me LAPAROSCOPY, WITH PERITONEAL DIALYSIS CATHETER INSERTION Chronic kidney disease, stage V (HCC) 04/12/2025 7:30 AM EDT documented as of this encounter Visit Diagnoses Not on filedocumented in this encounter Care Teams Children'S Aide Relationship Specialty Start Date End Date Félix [place], CERTIFIED MARINE MECHANIC [address] [facility] [address] [place] [address] PCP - General Nurse Practitioner 08/25/22 documented as of this encounter
--- OUTSIDE RECORDS SUMMARY | 2025-04-11 11:01 | XMS_ITS | Encounter Summary ---
Author Organization [employer] ([place], [place], [place], [place]) Address [address] [address] Care Team Providers Care Traffic Worker Name Role Phone Félix [place] MICHAEL Primary Care Provider [phone] Encounter Details Date Type Department Care Team (Late st Contact Info) Description 09/04/2019 Transcribed Document [facility] [place] [address] [place] [address] ProviderMaria Esther MD [address] [place] [address] Social History Tobacco Use Types Packs/Day Years Used Date Smoking Tobacco: Never Assessed Comments Unknown Sex and Gender Information Value Date Recorded Sex Assigned at Not on file Legal Sex Female 6:53 PM CDT Gender Identity Not on file Sexual Orientation Not on file documented as of this encounter Miscellaneous Notes * Cerner Conversion Note - Historical ProviderMD - 09/04/2019 12:42 PM RECEIVING TEAM MEMBER Stroke/Warfarin Instructions Entered On: 09/04/2019 12:42 EST Performed On: 09/04/2019 12:42 EST by NIRAV SALCEDO RN Stroke/Warfarin Instructions Stroke/TIA Discharge Ins : N/A Warfarin Discharge Ins : N/A NIRAV SALCEDO RN - 09/04/2019 12:42 EST documented in this encounter Plan of Treatment Upcoming Encounters Date Type Department Care Team (Late st Contact Info) Description 04/12/2025 7:30 AM EDT Hospital Encounter [facility] Operating Room 1 [place] [address] Bill Graham MD [address] [facility] [address] [place] [address] 04/12/2025 7:30 AM EDT Anesthesia Event [facility] Operating Room 1 [place] [address] Lucio Szymanski MD [address] [place] [address] 04/12/2025 7:30 AM EDT - 04/12/2025 8:55 AM EDT Surgery [facility] Operating Room 1 [place] [address] Bill Graham MD [address] [facility] [address] [place] [address] (LAPAROSCOPIC PERITONEAL DIALYSIS CATHETER INSERTION) Scheduled Procedures Name Priority Associated Diagnoses Date/Ti me LAPAROSCOPY, WITH PERITONEAL DIALYSIS CATHETER INSERTION Chronic kidney disease, stage V (HCC) 04/12/2025 7:30 AM EDT documented as of this encounter Visit Diagnoses Not on filedocumented in this encounter Care Teams Traffic Worker Relationship Specialty Start Date End Date Félix [place], URBAN RENEWAL MANAGER [address] [facility] [address] [place] [address] PCP - General Nurse Practitioner 08/25/22 documented as of this encounter
--- OUTSIDE RECORDS SUMMARY | 2025-04-11 11:02 | XMS_ITS | Encounter Summary ---
Author Organization [employer] ([place], [place], [place], [place]) Address [address] [place] [address] Care Team Providers Care Machine Setter And Repairer Name Role Phone [place] Félix Francisco RODRIGUEZ Primary Care Provider [phone] Encounter Details Date Type Department Care Team (Late st Contact Info) Description 10/13/2019 Transcribed Document [facility] [address] [place] [address] ProviderMaria Esther MD [address] [place], [place] [address] Social History Tobacco Use Types Packs/Day Years Used Date Smoking Tobacco: Never Assessed Comments Unknown Sex and Gender Information Value Date Recorded Sex Assigned at Not on file Legal Sex Female 6:53 PM CDT Gender Identity Not on file Sexual Orientation Not on file documented as of this encounter Miscellaneous Notes * Cerner Conversion Note - Maria Esther Reyes MD - 10/13/2019 7:24 AM CDT Patient: CORRIE SMITH Age: 49 years Sex: Female : 1970 Associated Diagnoses: None Author: MISBAH YODER MD-ONC Attachments: None Subjective Chief complaint Chief complaint No new c/o. Not dyspneic. Health Status Allergies Allergies (1) Active Reaction codeine Welts Objective General Alert and oriented No acute distress Eye Pupils are equal, round and reactive to light HENT Normocephalic Neck Supple Respiratory Lungs are clear to auscultation Cardiovascular Normal rate Gastrointestinal Soft Non-tender Impression and Plan Assessment and Plan Diagnosis Anemia perhaps as result of hemolysis from valve and poor compensation due to renal insuffiency. Perhaps other causes. Course Progressing as expected Orders I was not overwhelmed by degree of schistocytes on peripheral smear. Willl transfuse with sx or if hgb less than 7. No other recoemndations. Electronically signed by Evaristo Loyola Conversion Director Of Exhibit Development Cerner at 10/28/2022 7:19 PM CDT documented in this encounter Plan of Treatment Upcoming Encounters Date Type Department Care Team (Late st Contact Info) Description 04/12/2025 7:30 AM EDT Hospital Encounter [facility] Operating Room 1 [place] [address] Bill Graham MD [address] [place] [address] [address] [place] [address] 04/12/2025 7:30 AM EDT Anesthesia Event [facility] Operating Room 1 [place] [address] Lucio Szymanski MD [address] [place] [address] 04/12/2025 7:30 AM EDT - 04/12/2025 8:55 AM EDT Surgery [facility] Operating Room 1 [place] [address] Bill Graham MD [address] [place] [address] (LAPAROSCOPIC PERITONEAL DIALYSIS CATHETER INSERTION) Scheduled Procedures Name Priority Associated Diagnoses Date/Ti me LAPAROSCOPY, WITH PERITONEAL DIALYSIS CATHETER INSERTION Chronic kidney disease, stage V (HCC) 04/12/2025 7:30 AM EDT documented as of this encounter Visit Diagnoses Not on filedocumented in this encounter Care Teams Machine Setter And Repairer Relationship Specialty Start Date End Date Félix [place], REGULATORY TECHNICIAN [address] [facility] [address] [place] [address] PCP - General Nurse Practitioner 08/25/22 documented as of this encounter
--- OUTSIDE RECORDS SUMMARY | 2025-04-11 11:02 | XMS_ITS | Encounter Summary ---
Author Organization [employer] ([place], [place], [place], [place]) Address [address] [address] Care Team Providers Care Spinneret Cleaner Name Role Phone Félix [place] APRN Primary Care Provider [phone] Encounter Details Date Type Department Care Team (Late st Contact Info) Description 10/12/2019 Transcribed Document [facility] [place] Family Medicine [address] [place] [address] ProviderMaria Esther MD [address] [place] [address] Social History Tobacco Use Types Packs/Day Years Used Date Smoking Tobacco: Never Assessed Comments Unknown Sex and Gender Information Value Date Recorded Sex Assigned at Not on file Legal Sex Female 6:53 PM CDT Gender Identity Not on file Sexual Orientation Not on file documented as of this encounter Miscellaneous Notes * Cerner Conversion Note - Maria Esther ProviderMD - 10/12/2019 5:00 AM CDT Chart Check - Review Order Profile Entered On: 10/13/2019 5:10 EDT Performed On: 10/12/2019 5:00 EDT by MARICARMEN GARCIA RN Chart Check Powerplans Initiated/Discontinued as Appropriate : Yes All Active Orders Reviewed : Yes MARICARMEN GARCIA RN - 10/13/2019 5:10 EDT documented in this encounter Plan of Treatment Upcoming Encounters Date Type Department Care Team (Late st Contact Info) Description 04/12/2025 7:30 AM EDT Hospital Encounter [facility] Operating Room 1 [place] [address] Bill Graham MD [address] [facility] [address] [place] [address] 04/12/2025 7:30 AM EDT Anesthesia Event [facility] Operating Room 1 [place] [address] Lucio Szymanski MD [address] [place] [address] 04/12/2025 7:30 AM EDT - 04/12/2025 8:55 AM EDT Surgery [facility] Operating Room [address] [place] [address] Bill Graham MD [address] [facility] [address] [place] [address] (LAPAROSCOPIC PERITONEAL DIALYSIS CATHETER INSERTION) Scheduled Procedures Name Priority Associated Diagnoses Date/Ti me LAPAROSCOPY, WITH PERITONEAL DIALYSIS CATHETER INSERTION Chronic kidney disease, stage V (HCC) 04/12/2025 7:30 AM EDT documented as of this encounter Visit Diagnoses Not on filedocumented in this encounter Care Teams Spinneret Cleaner Relationship Specialty Start Date End Date Félix [place], PASSENGER SERVICE MANAGER [address] [facility] [address] [place] [address] PCP - General Nurse Practitioner 08/25/22 documented as of this encounter
--- OUTSIDE RECORDS SUMMARY | 2025-04-11 11:02 | XMS_ITS | Encounter Summary ---
Author Organization [employer] ([place], [place], [place], [place]) Address [address] [address] Care Team Providers Care School Psychology Specialist Name Role Phone MonroeRamosie Francisco RODRIGUEZ Primary Care Provider [phone] Encounter Details Date Type Department Care Team (Late st Contact Info) Description 03/29/2025 Orders Only [facility] [address] [facility] [address] [place] [address] [place] [address] [place] [address] [address] [place], [place] [id number] Chronic kidney disease, stage V (HCC) (Primary Dx) Social History Tobacco Use Types [...] Date Josias rded Speak language other than Andorran at home Not on file 07/30/2023 Want [...] Hospital Encounter [facility] Operating Room 1 [place] [address] [place] [address] [place] [address] [address] [place] [address] 04/12/2025 7:30 AM EDT Anesthesia Event [facility] Operating Room 1 [place] [address] Lucio Szymanski MD [address] [place] [address] 04/12/2025 7:30 AM EDT - 04/12/2025 8:55 AM EDT Surgery [facility] Operating Room 1 [place] [address] Bill Graham MD [address] [place] [address] (LAPAROSCOPIC PERITONEAL DIALYSIS CATHETER INSERTION) Scheduled Procedures Name Priority Associated Diagnoses Date/Ti me LAPAROSCOPY, WITH PERITONEAL DIALYSIS CATHETER INSERTION Chronic kidney disease, stage V (HCC) 04/12/2025 7:30 AM EDT documented as of this encounter Visit Diagnoses Diagnosis Chronic kidney disease, stage V (HCC)- Primary Chronic kidney disease, Stage V Chronic kidney disease, stage V (HCC)- Primary Chronic kidney disease, Stage V Chronic kidney disease, stage V (HCC) Chronic kidney disease, Stage V documented in this encounter Care Teams School Psychology Specialist Relationship Specialty Start Date End Date Félix [place] APRN [address] [facility] [address] [place] [address] PCP - General Nurse Practitioner 08/25/22 documented as of this encounter
--- OUTSIDE RECORDS SUMMARY | 2025-04-11 11:02 | XMS_ITS | Encounter Summary ---
Author Organization Healthcare Address [address] [place] [address] Care Team Providers Care Returned Case Inspector Name Role Phone Az David MD Primary Care Provider [phone] Encounter Details Date Type Department Care Team (Latest Contact Info) Description 03/28/2025 Anticoagulation - Warfarin Visit [facility] [address] 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 No 02/26/2025 CAGE ASSESSMENT Answer [...] drink first t mohamud in the morning (EYE-DRAFTER SEISMOGRAPH) to steady your nerves or to get rid of a hangover? 0 03/23/2023 CAGE Questionnaire Score 0 023 Utilities Answer Date Recorded In the past 12 months has th e electric, gas, oil, or water [employer] threatened to shut off services in your [...] as of this encounter Miscellaneous Notes * Progress Notes - Markos Anglin, PharmD - 03/28/2025 3:58 PM EDT Images from the original note were not included. 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 [Z79.01] Anticoagulation Episode Summary INR check location: Outside Lab Preferred lab: EXTERNAL LAB Send INR reminders to: [facility] Comments: -- Anticoagulation Care Providers Provider Role Specialty Phone number Jocy Kennedy, CONTAINER WASHER MACHINE, DNP Referring Cardiology [phone] Additional History: 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; 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), Afib [id number] Stroke Risk Points: 4 Values used to calculate this score: Points Metrics 1 Has Congestive Heart Failure: Yes 1 Has Hypertension: Yes 0 Age: 54 0 Has Diabetes: No 0 Had Stroke: No Had TIA: No Had Thromboembolism: No 1 Has Vascular Disease: Yes 1 Clinically Relevant Sex: Female Rational for warfarin > DOAC: presence of mechanical valve Bridging required (per referral): No Bleeding history: No DDIs: -aspirin: may enhance the anticoagulant effect of warfarin and increase bleeding risk -methimazole: may diminish the anticoagulant effect of warfarin Dietary vitamin K intake: Yes, eats various sources. Patient reports history of inconsistency. EtOH use: No Smoking/recreational drug use: No; former smoker Managing Provider: Dr. Lenore Cosme - Last office visit: 03/08/2025 - Upcoming office visit: 08/02/2025 Subjective Bruising: No Bleeding signs/symptoms: No Major bleeding event: No Thrombosis signs/symptoms: No Thromboembolic event: No Missed doses: Yes Holding warfarin since Sunday 03/25 per OSH MD instruction Extra doses: No Medication changes: No Dietary changes: No Alcohol changes: No Daily activity changes: No Health changes: No ED visit: No Hospital admission: No Upcoming dental procedure: No Upcoming invasive procedure: Yes 03/30- exploratory procedure for PD cath placement at [facility] Laboratory test error suspected: No Other concerns: No Additional comments: The following portions of the chart were reviewed this encounter and updated as appropriate: Meds Objective INR: Lab Results Component Value Date INR 1.7 03/28/2025 INR 3.2 03/19/2025 INR 2.20 (A) 03/08/2025 PROTIME 29.3 08/24/2024 PROTIME 18.4 08/04/2024 Renal function: Lab Results Component Value Date CREATININE 3.84 (H) 03/01/2025 CREATININE 3.10 (H) 02/28/2025 CREATININE 4.29 (H) 02/27/2025 EGFR 13.3 03/01/2025 EGFR 17.3 02/28/2025 EGFR 11.7 02/27/2025 CBC: Lab Results Component Value Date HGB 10.1 (L) 03/01/2025 HGB 10.2 (L) 02/28/2025 HGB 10.4 (L) 02/27/2025 HCT 32.6 (L) 03/01/2025 HCT 32.5 (L) 02/28/2025 HCT 33.4 (L) 02/27/2025 MCV 96 03/01/2025 MCV 95 02/28/2025 MCV 95 02/27/2025 PLT 166 03/01/2025 PLT 171 02/28/2025 PLT 166 02/27/2025 Liver function: Lab Results Component Value Date ALT 12 02/23/2025 ALT 12 11/16/2024 ALT 11 11/15/2024 AST 18 02/23/2025 AST 15 11/16/2024 AST 25 11/15/2024 ALKPHOS 106 (H) 02/23/2025 ALKPHOS 114 (H) 11/16/2024 ALKPHOS 121 (H) 11/15/2024 BILITOT 1.1 02/23/2025 BILITOT 0.5 11/16/2024 BILITOT 0.6 11/15/2024 Weight: Wt Readings from Last 1 Encounters: 03/08/25 80.6 kg (177 lb 11.1 oz) BMI: Estimated body mass index is 28.68 kg/m?? as calculated from the following: Height as of 03/08/25: 1.676 m (5' 6 ). Weight as of 03/08/25: 80.6 kg (177 lb 11.1 oz). Assessment and Plan Current warfarin dose: HOLDING since Sunday 03/25 per OSH MD instruction (previously on 4 mg daily) Subtherapeutic INR for goal of 2.5-3.5. INR is subtherapeutic due to procedural hold. Insturcted patient to notify clinic in the future of any upcoming procedures and/or if outside providers give instruction on warfarin. Patient expressed understanding. New warfarin dose: CONTINUE to HOLD warfarin at this time. RESUME warfarin on Friday 03/30 after procedure (or as instructed by operating provider) with a BOOST dose of 6 mg x 1 then resume maintenance dose of warfarin 4 mg daily Follow Up Check INR at [facility] lab 5 days after resumption. Patient Education Unable to bridge in outpatient setting d/t ESRD on HD, so reviewed s/sx of DVT/PE/stroke and if present to report to the ED immediately. Patient repeated above instruction back to clinic PharmD correctly. Notify clinic of any medication changes including missed or extra doses of warfarin prior to next planned INR check so that warfarin dose and/or follow up can be adjusted accordingly. Contact the Anticoagulation Clinic at [phone] with any questions or concerns regarding yourwarfarin. Patient verbalized understanding of above care plan: YES Markos Anglin, PharmD, BCACP, CACP [facility] [address] [facility] [phone] documented in this encounter Plan of Treatment Upcoming Encounters Date Type Department Care Team (Late st Contact Info) Description 05/24/2025 1:40 PM EST Office Visit [facility] [address] [facility] [place] [phone] Lenore Cosme MD [address] [place] [address] 08/02/2025 1:40 PM EST Office Visit [facility] [address] [facility] [phone] Lenore Cosme MD [address] [place] [address] documented as of this encounter Procedures Procedure Name Priority Date/Time Associated Diagnosis Comments EXTERNAL PROTHROMBIN TIME (PT)/INR Routine 03/28/2025 documented in this encounter Results * External Prothrombin Time (PT)/INR (03/28/2025) External INR - Internormal Ratio 1.7 EXTERNAL LAB External Prothrombin Time (PT) EXTERNAL LAB Blood Venous blood specimen / Unknown 03/28/2025 Historical Provider POINT OF CARE TEST ENTER/PADDY T ORDERABLES Final Result EXTERNAL LAB documented in this encounter Visit Diagnoses Diagnosis H/O mitral valve replacement- Primary retirement (current) use of anticoagulants Long-term (current) use of anticoagulants Anticoagulation management encounter Encounter for therapeutic drug monitoring documented in this encounter Additional Health Concerns Assessment Noted Time PHQ-9 Depression Total Score: 5 06/15/20 24 2:55 PM EST A fall risk assessment has been complete d for the patient 03/08/2025 4:06 PM EDT A Body Mass Index follow-up plan has been documented for the patient 03/28/2025 4:40 PM EDT documented as of this encounter Care Teams Returned Case Inspector Relationship Specialty Start Date End Date Az David MD [address] [place] [address] PCP - General 03/22/23 documented as of this encounter
--- OUTSIDE RECORDS SUMMARY | 2025-04-11 11:02 | XMS_ITS | Encounter Summary ---
Author Organization [employer] ([place], [place], [place], [place]) Address [address] [address] Care Team Providers Care Speaker Mounter Name Role Phone Félix Monroe MICHAEL Primary Care Provider [phone] Encounter Details Date Type Department Care Team (Late st Contact Info) Description 10/12/2019 Transcribed Document [facility] [address] [place] [address] ProviderMaria Esther MD [address] [place] [phone] Social History Tobacco Use Types Packs/Day Years Used Date Smoking Tobacco: Never Assessed Comments Unknown Sex and Gender Information Value Date Recorded Sex Assigned at Not on file Legal Sex Female 6:53 PM CDT Gender Identity Not on file Sexual Orientation Not on file documented as of this encounter Miscellaneous Notes * Cerner Conversion Note - Historical ProviderMD - 10/12/2019 9:00 AM CDT Consult Phone Call Documentation Entered On: 10/12/2019 8:54 EDT Performed On: 10/12/2019 9:00 EDT by Bernice Louis, Personal Clothing Laundry Aide-Health Unit Coord Phone Call for Consults Consult Phone Call/Page Attempt : First call Consult Reason : aware Bernice Louis, Personal Clothing Laundry Aide-Health Unit Coord - 10/12/2019 8:54 EDT Consult, Additional Information : Office aware, spoke to [place] who referred to [facility]. Tamar at [facility] office took consult, will notify Shawna Woodard, Personal Clothing Laundry Aide-Health Unit Coord - 10/12/2019 10:04 EDT documented in this encounter Plan of Treatment Upcoming Encounters Date Type Department Care Team (Late st Contact Info) Description 04/12/2025 7:30 AM EDT Hospital Encounter [facility] Operating Room [address] [place] [address] [place] [address] [place] [address] [address] [place] [address] 04/12/2025 7:30 AM EDT An[address]hesia Event [facility] Operating Room [address] [place] [address] Lucio Szymanski MD [address] [place] [address] 04/12/2025 7:30 AM EDT - 04/12/2025 8:[address] [facility] Operating Room [address] [place] [address] Bill Graham MD [address] [place] [address] [address] (LAPAROSCOPIC PERITONEAL DIALYSIS CATHETER INSERTION) Scheduled Procedures Name Priority Associated Diagnoses Date/Ti me LAPAROSCOPY, WITH PERITONEAL DIALYSIS CATHETER INSERTION Chronic kidney disease, stage V (HCC) 04/12/2025 7:30 AM EDT documented as of this encounter Visit Diagnoses Not on filedocumented in this encounter Care Teams Speaker Mounter Relationship Specialty Start Date End Date Félix Monroe, HAND TAPPER [address] [facility] [address] [place] [address] PCP - General Nurse Practitioner 08/25/22 documented as of this encounter
--- OUTSIDE RECORDS SUMMARY | 2025-04-11 11:02 | XMS_ITS | Encounter Summary ---
Author Organization [employer] ([place], [place], [place], [place]) Address [address] [address] Care Team Providers Care Yard Warehouse Worker Name Role Phone Félix Monroe APRN Primary Care Provider [phone] Encounter Details Date Type Department Care Team (Late st Contact Info) Description 10/13/2019 Transcribed Document [facility] Family Medicine [address] [place] [address] ProviderMaria Esther MD [address] [place], [place] [address] Social History Tobacco Use Types Packs/Day Years Used Date Smoking Tobacco: Never Assessed Comments Unknown Sex and Gender Information Value Date Recorded Sex Assigned at Not on file Legal Sex Female 6:53 PM CDT Gender Identity Not on file Sexual Orientation Not on file documented as of this encounter Miscellaneous Notes * Cerner Conversion Note - Maria Esther Reyes MD - 10/13/2019 7:31 AM CDT UM Authorization Entered On: 10/13/2019 7:33 EDT Performed On: 10/13/2019 7:31 EDT by Deborah Toro, Motorboat Mechanic Inboard Primary Insurance Authorization Authorization and Policy Numbers : Insurance 1 Health Plan: [employer] Policy Number: [id number] Authorization Number: Insurance Primary Name : [employer] Policy Number: [id number] Authorization Status-Primary : Admit approved Reference Number-Primary : [id number] Number of Days Authorized-Primary : 6 Day(s) Authorized Service Begin Date-Primary : 10/11/2019 EDT Authorized Service End Date-Primary : 10/17/2019 EDT Authorization Comments-Primary : Authorized per fax 10/12/2019 @ 1825. Approved x7 days, 10/11/2019 - 10/17/2019. Next review due: 10/17/2019. Historical Authorization Comments-Primary : Comment 1: submitted on availity for IP auth w/ clinicals attached (JESSICA GUIDO, RN-Utilization Review 10/12/2019 10:36) Deborah Toro, Motorboat Mechanic Inboard - 10/13/2019 7:31 EDT documented in this encounter Plan of Treatment Upcoming Encounters Date Type Department Care Team (Late st Contact Info) Description 04/12/2025 7:30 AM EDT Hospital Encounter [facility] Operating Room [address] [place] [address] Bill Graham MD [address] [place] [address] [place] [phone] 04/12/2025 7:30 AM EDT Anesthesia Event [facility] Operating Room [address] [place] [address] Lucio Szymanski MD [address] [place], [place] [phone] 04/12/2025 7:30 AM EDT - 04/12/2025 8:55 AM EDT Surgery [facility] Operating Room [address] [place] [address] Bill Graham MD [address] [place] [address] [address] [place] [address] (LAPAROSCOPIC PERITONEAL DIALYSIS CATHETER INSERTION) Scheduled Procedures Name Priority Associated Diagnoses Date/Ti me LAPAROSCOPY, WITH PERITONEAL DIALYSIS CATHETER INSERTION Chronic kidney disease, stage V (HCC) 04/12/2025 7:30 AM EDT documented as of this encounter Visit Diagnoses Not on filedocumented in this encounter Care Teams Yard Warehouse Worker Relationship Specialty Start Date End Date Félix Monroe, ALL SOURCE INTELLIGENCE TECHNICIAN [address] [place] [address] PCP - General Nurse Practitioner 08/25/22 documented as of this encounter
--- OUTSIDE RECORDS SUMMARY | 2025-04-11 11:02 | XMS_ITS | Encounter Summary ---
Author Organization [employer] ([place], [place], [place], [place]) Address [address] [place] [address] Care Team Providers Care Fixed Income Trading Vice President Name Role Phone Félix Monroe APRN Primary Care Provider [phone] Encounter Details Date Type Department Care Team (Late st Contact Info) Description 10/13/2019 Transcribed Document [facility] Family Medicine [address] [place] [address] ProviderMaria Esther MD [address] [place] [address] Social History Tobacco Use Types Packs/Day Years Used Date Smoking Tobacco: Never Assessed Comments Unknown Sex and Gender Information Value Date Recorded Sex Assigned at Not on file Legal Sex Female 6:53 PM CDT Gender Identity Not on file Sexual Orientation Not on file documented as of this encounter Miscellaneous Notes * Cerner Conversion Note - Maria Esther Reyes MD - 10/13/2019 10:48 AM CDT Patient: CORRIE SMITH Age: 49 years Sex: Female : 1970 Associated Diagnoses: None Author: SHAWANDA LUIS MD-VANESSA Basic Information Feels much better, however serum creatinine continues to rise, she denies any shortness of fair or orthopnea, the urine is clearing. History of Present Illness [ Corrie Smith is a 49-year-old female with a history of valvular heart disease, congestive heart failure, and tobacco abuse presented to outside hospital with severe anemia and dark colored urine turning red later on. Patient is well known to our service from previous hospitalizations, she has chronic kidney disease stage IV with a baseline serum creatinine around 2 mg/dL. She underwent mitral valve repair in August of this year to treat severe mitral regurgitation. She presented with a picture of hemolytic anemia assumed to be secondary to the valvular heart disease. Her serum creatinine increased up to 3.1 today and I was asked to see her in consultation to help in the management of her kidney failure. Her hemoglobin on presentation was 6 g and she received multiple transfusions. Review of Systems ROS reviewed as documented in chart Health Status Allergies: Allergic Reactions (Selected) Severity Not Documented Codeine- Welts, nausea and hives., Allergies (1) Active Reaction codeine Welts Current medications: (Selected) Inpatient Medications Ordered Core.5 mg, Oral, BID DuoNeb 0.5 mg-2.5 mg/3 mL inhalation solution: 3 mL, Nebulized Inhalation, Q6H, PRN: Shortness of Breath Normal Saline Flush: 10 mL, IV Push, Q8H Normal Saline Flush: 10 mL, IV Push, See Comment, PRN: Other (See Comment) Phenergan: 6.25 mg, IntraVENous, Q6H, PRN: Nausea Protonix: 40 mg, Oral, Daily Senna S: 1 Tab, Oral, BID Sodium Chloride 0.9% intravenous solution 1,000 mL: 100 mL/Hr, IntraVENous, Stop: 10/14/19 10:06:00 EDT Tylenol: 650 mg, Oral, Q4H, PRN: Other (See Comment) Zofran: 4 mg, IV Push, Q4H, PRN: Nausea amLODIPine: 5 mg, Oral, Daily aspirin: 81 mg, Oral, Daily cloNIDine: 0.1 mg, Oral, Q4H, PRN: Hypertension hydrALAZINE: 10 mg, IV Push, Q6H, PRN: Hypertension morphine: 2 mg, IV Push, Q2H, PRN: Pain (Severe 7-10) nicotine 21 mg/24 hr transdermal film, extended release: 1 Patch, TransDermal, Daily potassium chloride 10 mEq oral tablet, extended release: 20 mEq, 2 Tab, Oral, 1-Time rOPINIRole: 1 mg, Oral, At Bedtime Documented Medications Documented Coreg 25 mg oral tablet: 1 Tab, Oral, BID, 60 Tab, 0 Refill(s) Protonix 40 mg oral delayed release tablet: 1 Tab, Oral, Daily, 30 Tab, 0 Refill(s) amLODIPine 5 mg oral tablet: 1 Tab, Oral, Daily, 0 Refill(s) aspirin 81 mg oral delayed release tablet: 1 Tab, Oral, Daily, 0 Refill(s) nicotine 21 mg/24 hr transdermal film, extended release: 1 Patch, TransDermal, Daily, 0 Refill(s) rOPINIRole 1 mg oral tablet: 1 Tab, Oral, At Bedtime, 90 Tab, 0 Refill(s), Medications (18) Active Scheduled: (9) #NaCl 0.9% *FLUSH* inj 10 mL 10 mL, IV Push, Q8H amLODIPine 5 mg tab 5 mg 1 Tab, Oral, Daily aspirin EC 81 mg tab 81 mg 1 Tab, Oral, Daily carvedilol 12.5 mg tab 12.5 mg 1 Tab, Oral, BID nicotine 21 mg/24 hr patch 1 Patch, TransDermal, Daily pantoprazole EC 40 mg tab 40 mg 1 Tab, Oral, Daily potassium chloride CR 10 mEq tab 20 mEq 2 Tab, Oral, 1-Time rOPINIRole 1 mg tab 1 mg 1 Tab, Oral, At Bedtime senna/docusate 8.6/50 mg tab 1 Tab, Oral, BID Continuous: (1) NaCl 0.9% 1,000 mL 1,000 mL, IntraVENous, 100 mL/Hr PRN: (8) #NaCl 0.9% *FLUSH* inj 10 mL 10 mL, IV Push, See Comment acetaminophen 325 mg tab 650 mg 2 Tab, Oral, Q4H albuterol-ipratropium inh 3 mL 3 mL, Nebulized Inhalation, Q6H cloNIDine 0.1 mg tab 0.1 mg 1 Tab, Oral, Q4H hydrALAZINE 20 mg/1 mL inj 10 mg 0.5 mL, IV Push, Q6H morphine 2 mg/1 ml inj 2 mg 1 mL, IV Push, Q2H ondansetron 4 mg/2 mL inj 4 mg 2 mL, IV Push, Q4H promethazine 25 mg/1 mL inj 6.25 mg 0.25 mL, IntraVENous, Q6H Problem list: Medical NSTEMI, initial episode of care / SNOMED CT 6827548479 / Confirmed At risk for sleep apnea / IMO [id number] / Confirmed CHF, acute on chronic / SNOMED CT 05076045 / Confirmed Class 3 Systolic GERD - Gastro-esophageal reflux disease / SNOMED CT 2805269858 / Confirmed H/O: TIA / SNOMED CT 177813920 / Confirmed History of laparoscopic adjustable gastric banding / SNOMED CT 4386806602 / Confirmed History of obstructive sleep apnea / IMO [id number] / Confirmed HTN - Hypertension / SNOMED CT 7910136504 / Confirmed Mitral regurgitation / SNOMED CT 79634814 / Confirmed Prolonged QT interval / SNOMED CT 890166000 / Confirmed Pulmonary edema / SNOMED CT 09856271 / Confirmed Restless legs syndrome / SNOMED CT 21901741 / Confirmed RF - Renal failure, Stage 4 / SNOMED CT 4079543618 / Confirmed Sleep apnea-before weight loss surgery / SNOMED CT 884471999 / Confirmed, Active Problems (15) At risk for sleep apnea CHF, acute on chronic COPD (chronic obstructive pulmonary disease) GERD - Gastro-esophageal reflux disease H/O: TIA History of laparoscopic adjustable gastric banding History of obstructive sleep apnea HTN - Hypertension Mitral regurgitation NSTEMI, initial episode of care Prolonged QT interval Pulmonary edema Restless legs syndrome RF - Renal failure, Stage 4 Sleep apnea-before weight loss surgery Histories Past Medical History: Active HTN - Hypertension (4879932438) Family History: No family history items have been selected or recorded. Procedure history: lap band in 2009 at 38 Years. bladder tack/sling. hysterectomy. ACL Repair right and left knees. Social History Social & Psychosocial Habits Alcohol 2019 Alcohol Use History, Social Habits Yes Date/Time of Last Drink once a year Substance Abuse 08/28/2019 Recreational Drug Use History Yes Recreational Drug Use Last 12 Months Yes Recreational Drug Type Marijuana/Hashish Recreational Drug Use Frequency Daily Years of Recreational Drug Use 30 Recreational Drug Route Inhaled Tobacco 2019 Smoking Status 10 or more cigarettes (1/ Smokeless Tobacco Status Never 2019 Years of Tobacco Use 30 Second Hand Smoke Exposure Yes 08/28/2019 Smoking Status 10 or more cigarettes (1/ Smokeless Tobacco Status Smokeless tobacco user wi Years of Tobacco Use 30 Packs/Tins Daily 2 Month Tobacco Last Used . Physical Examination VS/Measurements Vitals Signs (last 24 hrs) Last Charted Minimum Maximum Temp 97.9 (OCT 12 08:00) 97.9 (OCT 12 08:00) 98.3 (OCT 11 12:00) Apical HR 94 (OCT 12 08:41) 80 (OCT 12 03:27) 94 (OCT 12 06:37) Mon HR 93 (OCT 12 09:00) 80 (OCT 12 03:00) 93 (OCT 12 09:00) Resp Rate H 38 (OCT 12 09:00) L 13 (OCT 11 11:00) H 38 (OCT 12 09:00) SBP H 166 (OCT 12 09:00) 136 (OCT 11 12:00) H 173 (OCT 12 04:00) DBP H 93 (OCT 12 09:00) 82 (OCT 11 12:00) H 108 (OCT 12 06:00) MAP 122 (OCT 12:00) 104 (OCT 11 12:00) 134 (OCT 12 06:00) SpO2 98 (OCT 12 09:00) 97 (OCT 11 13:00) 100 (OCT 11 12:00) General: Alert and oriented, No acute distress. [...] review: Labs (Last four charted values) WBC 10.2 (OCT 12) 10.2 (OCT 11) H 13.0 (OCT 10) HB L 8.1 (OCT 12) L 8.9 (OCT 11) L 8.4 (OCT 11) L 8.8 (OCT 10) HCT L 24.8 (OCT 12) L 26.9 (OCT 11) L 25.0 (OCT 11) L 25.9 (OCT 10) Plt L 160 (OCT 12) 164 (OCT 11) 178 (OCT 10) Na 138 (OCT 12) 137 (OCT 11) L 135 (OCT 10) K 3.5 (OCT 12) 3.7 (OCT 11) 3.5 (OCT 10) Cl 109 (OCT 12) 105 (OCT 11) 105 (OCT 10) CO2 22 (OCT 12) 24 (OCT 11) 22 (OCT 10) BUN H 31 (OCT 12) H 27 (OCT 11) H 24 (OCT 10) Cr H 4.00 (OCT 12) H 3.10 (OCT 11) H 2.70 (OCT 10) Glu R 94 (OCT 12) H 115 (OCT 11) H 136 (OCT 10) Ca L 8.2 (OCT 12) 9.2 (OCT 11) 9.1 (OCT 10) Lactic 1.2 (OCT 10) PT 11.7 (OCT 12) 11.2 (OCT 10) INR 1.1 (OCT 12) 1.1 (OCT 10) PTT 27.0 (OCT 12) AST H 90 (OCT 11) H 145 (OCT 10) ALT 21 (OCT 11) 22 (OCT 10) ALK P 80 (OCT 11) 95 (OCT 10) T Bili H 1.8 (OCT 11) H 1.8 (OCT 11) H 3.0 (OCT 10) PTN 7.1 (OCT 11) 8.0 (OCT 10) ALB L 2.9 (OCT 12) 3.4 (OCT 11) 3.9 (OCT 10) Lipase 147 (OCT 10) Troponin H 0.054 (OCT 11) H 0.091 (OCT 10) . Radiology Results (Last 48 hours) [id number] -- 10/11/2019 15:38 CR Chest 1 Vw Portable (10/11/2019 19:33) Result: PORTABLE CHESTHISTORY: Mitral valve repair.COMPARISON: 09/21/2019.FINDINGS: The heart is normal in size. The patient's undergone previousvalve replacement surgery. The patient is status post median sternotomy. The lungs are clear. There is no pneumothorax. The osseous structuresare unremarkable. IMPRESSION: No acute cardiopulmonary process.Images reviewed, interpreted, and dictated by Dr. Victor Manuel Hu.Transcribed by Chauncey Cosby PA-C.I have personally viewed, interpreted and dictated the examination. Ihave read and agree with the above final transcribed report. CT Abdomen Pelvis WO (10/11/2019 20:45) Result: CT OF THE ABDOMEN AND PELVIS WITHOUT CONTRASTHISTORY: Hematuria..PROCEDURE: Routine axial images were obtained from the lung bases tothe pubic symphysis. No contrast was given. This study was performedwith techniques to keep radiation doses as low as reasonably achievable,(ALARA). Individualized dose reduction techniques using automatedexposure control or adjustment of mA and/or kV according to the patientsize were employed.COMPARISON: None.FINDINGS: Abdomen: The gallbladder is unremarkable. Mild increased density of theliver may be due to hemachromatosis or amiodarone therapy (ifapplicable. The solid abdominal organs and ureters are otherwiseunremarkable. A lap band is appropriately positioned around the gastriccardia. The GI tract is otherwise unremarkable, including the appendix.Pelvis: The urinary bladder is normal. The uterus and ovaries areabsent. There is no pelvic or abdominal ascites, adenopathy, or acuteosseous abnormality.IMPRESSION: No acute abnormality. CT Chest WO (10/13/2019 09:11) Result: CT CHEST WITHOUT IV CONTRASTHISTORY: Shortness of breath.FINDINGS: There are no prior CT chest exams for comparison. The exam wasperformed without IV contrast. This study was performed with techniquesto keep radiation doses as low as reasonably achievable (ALARA).Individualized dose reduction techniques using automated exposurecontrol or adjustment of mA and/or kV according to the patient's sizewere employed.There is mild scar or linear atelectasis in the left lower lobe andlingula. There is old granulomatous disease. There are no noncalcifiedlung nodules or masses. The right lung is clear. There are sternalsuture wires. There are coronary calcifications. There is moderatecardiomegaly. There is a minimal pericardial effusion. There are noenlarged mediastinal nodes. There are calcified left hilar nodes. Theascending thoracic aorta measures up to 4 cm transversely. Thedescending thoracic aorta measures 2.7 cm transversely. There is aminimal left pleural effusion. A gastric band is noted.IMPRESSION: Minimal left pleural effusion with mild atelectasis in theleft lung base. Ascending thoracic aorta at the upper limits of normalin size. Mild cardiomegaly. Postsurgical changes. Intake & Output Totals Last 24 Hours (7a-7a) Intake (19 Events) Continuous Infusions (1000 mL) Medications (80.18 mL) Oral Intake (300 mL) Output (4 Events) Urine Voided (Volume) (1300 mL) Input Total: 1380.18 mL Output Total: 1300 mL Balance: 80.18 mL Impression and Plan 1. Chronic kidney disease stage IV, most probably secondary to hypertensive nephrosclerosis, baseline serum creatinine is 2 mg/dl 2. Risk of contrast-induced nephropathy, 3. Severe mitral regurgitation, status post repair in August of this year, complicated with hemolytic anemia, patient will be scheduled for mitral valve replacement next week. 4. Acute kidney injury most probably secondary to volume depletion and possibly acute tubular necrosis from hemolytic anemia, I would continue normal saline 100 ML per hour to keep the patient's well-hydrated during this period. Serum creatinine continues to increase up to 4 mg/dL. We will continue to monitor closely. There is no indication for hemodialysis at this point however if the serum creatinine continues to rise she may require hemodialysis before surgery. 5. Severe hemolytic anemia, most probably secondary to mitral valve disease, I will keep the patient's well-hydrated at this point, RIA was requested, hematology consultation is reviewed and appreciated. She would benefit from adding erythropoietin therapy. documented in this encounter Plan of Treatment Upcoming Encounters Date Type Department Care Team (Late st Contact Info) Description 04/12/2025 7:30 AM EDT Hospital Encounter [facility] Operating Room [address] [place] [address] Bill Graham MD [address] [place] [address] [address] 04/12/2025 7:30 AM EDT Anesthesia Event [facility] Operating Room [address] [place] [id number] Lucio Szymanski MD [address] [place] [address] 04/12/2025 7:30 AM EDT - 04/12/2025 8:55 AM EDT Surgery [facility] Operating Room [address] [place] [address] Bill Graham MD [address] [facility] [address] [place] [address] (LAPAROSCOPIC PERITONEAL DIALYSIS CATHETER INSERTION) Scheduled Procedures Name Priority Associated Diagnoses Date/Ti me LAPAROSCOPY, WITH PERITONEAL DIALYSIS CATHETER INSERTION Chronic kidney disease, stage V (HCC) 04/12/2025 7:30 AM EDT documented as of this encounter Visit Diagnoses Not on filedocumented in this encounter Care Teams Fixed Income Trading Vice President Relationship Specialty Start Date End Date Félix Monroe, INSIDE SALES ASSOCIATE [address] [facility] [address] [place] [address] PCP - General Nurse Practitioner 08/25/22 documented as of this encounter
--- OUTSIDE RECORDS SUMMARY | 2025-04-11 11:02 | XMS_ITS | Encounter Summary ---
Author Organization [email or web address] ([place], [place], [place], [place]) Address [address] [place] [address] Care Team Providers Care Bin Filler Name Role Phone Félix Monroe APRN Primary Care Provider [phone] Encounter Details Date Type Department Care Team (Late st Contact Info) Description 10/13/[address] [facility] Radiology [address] [place] [address] Emanuel Pratt MD [address] [place] [address] Social History Tobacco Use Types Packs/Day Years Used Date Smoking Tobacco: Never Assessed Comments Unknown Sex and Gender Information Value Date Recorded Sex Assigned at Not on file Legal Sex Female 6:53 PM CDT Gender Identity Not on file Sexual Orientation Not on file documented as of this encounter Miscellaneous Notes * Cerner Conversion Note - Emanuel Pratt MD - 10/13/2019 7:08 AM EDT Patient: CORRIE SMITH Age: 49 years Sex: Female : 1970 Associated Diagnoses: None Author: EMANUEL PRATT MD-CAR Basic Information PCP: WINSTON GREEN MD-INT [place] Conservation Laborer: None Subjective Stable this morning without complaints. CTS note reviewed. Plans for surgery Wednesday. Health Status Current medications: (Selected) Inpatient Medications Ordered Core.5 mg, Oral, BID DuoNeb 0.5 mg-2.5 mg/3 mL inhalation solution: 3 mL, Nebulized Inhalation, Q6H, PRN: Shortness of Breath Phenergan: 6.25 mg, IntraVENous, Q6H, PRN: Nausea Protonix: 40 mg, Oral, Daily Senna S: 1 Tab, Oral, BID Sodium Chloride 0.9% intravenous solution 1,000 mL: 100 mL/Hr, IntraVENous Tylenol: 650 mg, Oral, Q4H, PRN: Other (See Comment) Zofran: 4 mg, IV Push, Q4H, PRN: Nausea amLODIPine: 5 mg, Oral, Daily cloNIDine: 0.1 mg, Oral, Q4H, PRN: Hypertension hydrALAZINE: 10 mg, IV Push, 1-Time hydrALAZINE: 10 mg, IV Push, Q6H, PRN: Hypertension morphine: 2 mg, IV Push, Q2H, PRN: Pain (Severe 7-10) niCARdipine injection 25 mg + NaCl 0.9% for drip 250 mL: TITRATE, IntraVENous rOPINIRole: 1 mg, Oral, At Bedtime, Home Medications (6) Active amLODIPine 5 mg oral tablet 5 mg = 1 Tab, Oral, Daily aspirin 81 mg oral delayed release tablet 81 mg = 1 Tab, Oral, Daily Coreg 25 mg oral tablet 25 mg = 1 Tab, Oral, BID nicotine 21 mg/24 hr transdermal film, extended release 1 Patch, TransDermal, Daily Protonix 40 mg oral delayed release tablet 40 mg = 1 Tab, Oral, Daily rOPINIRole 1 mg oral tablet 1 mg = 1 Tab, Oral, At Bedtime Problem list: Active Problems (15) At risk for sleep [...] Stage 4 Sleep apnea-before weight loss surgery Objective Intake and Output 24 hour intake: Total 1,380 ml 24 hour output: Total 1,300 ml VS/Measurements Vitals Signs (last 24 hrs) Last Charted Minimum Maximum Temp 97.8 (OCT 12 04:00) 97.8 (OCT 12 04:00) 98.5 (OCT 11 08:00) Apical HR 80 (OCT 12 03:27) 80 (OCT 12 03:27) 88 (OCT 12 00:01) Mon HR 90 (OCT 12 06:00) 80 (OCT 12 03:00) 92 (OCT 11 07:00) Resp Rate 16 (OCT 12 06:00) L 13 (OCT 11 07:00) H 37 (OCT 12 00:00) SBP H 172 (OCT 12 06:00) 136 (OCT 11 12:00) H 173 (OCT 12 04:00) DBP H 108 (OCT 12 06:00) 81 (OCT 11 07:00) H 108 (OCT 12 06:00) MAP 134 (OCT 12:00) 104 (OCT 11 12:00) 134 (OCT 12 06:00) SpO2 100 (OCT 12:00) 97 (OCT 11 13:00) 100 (OCT 11 07:00) General: Alert and oriented, No acute distress. Eye: Pupils are equal, round and reactive to light, Normal conjunctiva, Vision unchanged. HENT: Normocephalic. Neck: Supple, Non-tender, No carotid bruit, No jugular venous distention. Respiratory: Lungs are clear to auscultation, Respirations are non-labored, Breath sounds are equal, Symmetrical chest wall expansion. Cardiovascular: Normal rate, Regular rhythm, No murmur, Good pulses equal in all extremities. Gastrointestinal: Soft, Non-distended, Normal bowel sounds. Musculoskeletal: Normal range of motion, Normal strength. Integumentary: Warm, Dry, [place]. Neurologic: Alert, Oriented. Psychiatric: Cooperative, Appropriate mood & affect. Results Review OCT 12 03:47 138 109 H 31 / 94 3.5 22 H 4.00 \ Cardiac Markers (Current Encounter/Past 24 Hours) ProBNP 47592 pg/mL IL 10/12/2019 04:25 Radiology Results (Last 48 hours) [id number] -- 10/11/2019 15:38 CR Chest 1 Vw [...] adenopathy, or acuteosseous abnormality.IMPRESSION: No acute abnormality. ECHO 10/12/2019 Impression: Normal sized left ventricle. Mild left ventricular hypertrophy. Visually estimated ejection fraction 50% +/- 5%. Abnormal left ventricular systolic function; abnormal systolic strain pattern. Mitral valve ring. Moderate to severe mitral regurgitation. Tethering of the posterior mitral leaflet. Eccentric, anteriorly directed regurgitant mitral jet. Thickened anterior mitral valve leaflet. No mitral stenosis. Moderately dilated left atrium. Measurements Summary: LVEDd: 5.07 cm LVESd: 3.61 cm IVSEd: 1 cm AO Root:2.87 cm LVPWd: 1.08 cm RIA 10/12/2019 Impression: Normal sized left ventricle. Normal left ventricular wall thickness. Normal left ventricular systolic function. No left ventricular masses or thrombi. S/p mitral ring repair. Tethering of the posterior mitral leaflet. Severe mitral regurgitation (4+) is present. Eccentric, anteriorly directed regurgitant mitral jet. No vegetations. Mild aortic regurgitation. Mild tricuspid regurgitation. Mildly dilated left atrium. Left atrial appendage well visualized, no thrombus. Agitated saline injection (bubble study) through an IV shows no right to left shunt. Impression and Plan IMPRESSION: VHD s/p MV Annuloplasty 08/29/2019 -severe MR with tethering of posterior leaflet RIA 10/12/2019 Marked Anemia Hgb 5 at OSH improved to 9 overnight s/p 2 units PRBC Prolonged QTc on admission 552 CKD Cr 2.10 HTN HLD Elevated LFT AST 124 Hx of TIA Smoker PLAN; 10/13/2019 Plan for redo MVR Wednesday per CTS. Continue Amlodipine and Coreg for BP control. 10/12/2019 Peripheral smear for schistocytes. RIA later this morning. Status post mitral valve ring repair. Severe mitral regurgitation. And hemolytic anemia. 10/11/2019 Wean Cardene as appropriate. Start home Coreg 12.5 mg BID. Monitor BP. Eventually restart amlodipine. 1 g IV Mag x 1. Repeat EKG in AM. Avoid QT prolonging drugs. Check proBNP in the AM. Anemia per IM. CTS to see and evaluate MV. documented in this encounter Plan of Treatment Upcoming Encounters Date Type Department Care Team (Late st Contact Info) Description 04/12/2025 7:30 AM EDT Hospital Encounter [facility] Operating Room [address] [place] [address] Bill Graham MD [address] [place] [address] [address] [place] [address] 04/12/2025 7:30 AM EDT Anesthesia Event [facility] Operating Room [address] [place] [address] Lucio Szymanski MD [address] [place] [address] 04/12/2025 7:30 AM EDT - 04/12/2025 8:55 AM EDT Surgery [facility] Operating Room [address] [place] [phone] Bill Graham MD [address] [facility] [address] [place] [address] (LAPAROSCOPIC PERITONEAL DIALYSIS CATHETER INSERTION) Scheduled Procedures Name Priority Associated Diagnoses Date/Ti me LAPAROSCOPY, WITH PERITONEAL DIALYSIS CATHETER INSERTION Chronic kidney disease, stage V (HCC) 04/12/2025 7:30 AM EDT documented as of this encounter Visit Diagnoses Not on filedocumented in this encounter Care Teams Bin Filler Relationship Specialty Start Date End Date Félix Monroe, CHOCOLATE PACKER [address] [facility] [address] [place] [address] PCP - General Nurse Practitioner 08/25/22 documented as of this encounter
--- OUTSIDE RECORDS SUMMARY | 2025-04-11 11:02 | XMS_ITS | Encounter Summary ---
Author Organization Healthcare Address [address] [place] [address] Care Team Providers Care Weight Control Lecturer Name Role Phone Az David MD Primary Care Provider [phone] Encounter Details Date Type Department Care Team (Late st Contact Info) Description 03/30/2025 Telephone [facility] [place] Jorge A [address] [place] [address] Lenore Cosme MD [address] [place] [address] Social History Tobacco Use Types Packs/Day Years [...] any time in the past 12 m [facility], were you homeless or living in a snf (including now)? No 02/26/2025 CAGE ASSESSMENT Answer [...] drink first t mohamud in the morning (EYE-PRESCRIPTION CLERK LENSES) to steady your nerves or to get [...] PM EST documented as of this encounter Plan of Treatment Upcoming Encounters Date Type Department Care Team (Late st Contact Info) Description 05/24/2025 1:40 PM EST Office Visit [facility] [address] [address] Lenore Cosme MD [address] [place] [id number] 08/02/2025 1:40 PM EST Office Visit [facility] [address] [address] Lenore Cosme MD [address] [place] [address] documented as of this encounter Visit Diagnoses [...] documented as of this encounter Care Teams Weight Control Lecturer Relationship Specialty Start Date End Date Az David MD [address] [place] [address] PCP - General 03/22/23 documented as of this encounter
--- OUTSIDE RECORDS SUMMARY | 2025-04-11 11:02 | XMS_ITS | Encounter Summary ---
Author Organization [employer] ([place], [place], [place], [place]) Address [address] [place] [address] Care Team Providers Care Wind Operations Manager Name Role Phone Félix Monroe APRN Primary Care Provider [phone] Encounter Details Date Type Department Care Team (Late st Contact Info) Description 10/13/2019 Transcribed Document [facility] Family Medicine [address] [place] [address] ProviderMaria Esther MD [address] [place] [address] Social History Tobacco Use Types Packs/Day Years Used Date Smoking Tobacco: Never Assessed Comments Unknown Sex and Gender Information Value Date Recorded Sex Assigned at Not on file Legal Sex Female 6:53 PM CDT Gender Identity Not on file Sexual Orientation Not on file documented as of this encounter Miscellaneous Notes * Cerner Conversion Note - Maria Esther Reyes MD - 10/13/2019 8:26 AM CDT Patient: CORRIE SMITH Age: 49 years Sex: Female : 1970 Associated Diagnoses: Marijuana daily smoker; Chronic renal failure, stage 4 (severe); COPD (chronic obstructive pulmonary disease); Chronic systolic, valvular congestive heart failure, NYHA class 3; Systemic hypertension; Severe GERD (gastroesophageal reflux disease); Nicotine dependence in remission since Aug 2019; History of NSTEMI (non-ST elevated myocardial infarction); History of Obesity S/P Lap band surgery and BMI is now 20.4; Restless leg syndrome; History of Sleep apnea; History of TIA (transient ischemic attack) Author: TARSHA CALVILLO PA Basic Information This is a 49y/o female who underwent MV repair 08/29/[address] Valdez and had an uneventful hospital course and was discharged on 09/04/19. She initially presented to [facility] with a two day history of dark colored urine. She also states that she hadbeen feeling fatigued during those two days as well having difficulty walking up the stairs at work without feeling winded. At the outside facility the pt was found to be anemic and was transfused 2UPRBCs. She also underwent and echo which showed a leaky mitral valve per her medical records. The echo report is not in her chart. Therefore she was transferred to [facility] for further work up and evaluation. The pt is scheduled to have a RIA today. Her H/H today are stable at 8.4/25.0. She does have a history of Chronic stage IV renal failure and Creatinine today is 3.1. Her baseline range is 2.0-2.[address] Howell has been consulted as they were following her during her last hospitalization. 10/13/19: The pt states I feel much better. Health Status Allergies: Allergies (1) Active Reaction codeine Welts Physical Examination Intake and Output 24 hour intake: Total 1380 ml 24 hour output: Total 1300 ml VS/Measurements Vital Measurements 10/13/2019 7:59 EDT Oxygen Saturation 99 % Oxygen Therapy Mode Room air 10/13/2019 6:37 EDT Heart Rate, Apical 94 bpm 10/13/2019 5:00 EDT Systolic Blood Pressure 145 mmHg HI Diastolic Blood Pressure 88 mmHg Mean Arterial Pressure (MAP)-BMDI 112 10/13/2019 4:00 EDT Temperature, Fahrenheit 97.8 Deg F Clinical Temperature, C 36.6 Deg C General: Alert and oriented, No acute distress. HENT: Normocephalic. Neck: Supple. Respiratory: Respirations are non-labored. Cardiovascular: Normal rate, 94 beats per minute, Regular rhythm, No edema. Neurologic: Alert, Oriented. Psychiatric: Cooperative, Appropriate mood & affect. Review / Management Results review: OCT 12 03:47 138 109 H 31 / 94 3.5 22 H 4.00 \ Blood Gases (Current Encounter/Past 24 Hours) No Blood Gas Results Found (Past 24 Hours) Coagulation Results (Current Encounter/Past 24 Hours) PT 11.7 Second(s) 10/13/2019 04:01 PTT 27.0 Second(s) 10/13/2019 04:01 INR 1.1 10/13/2019 04:01 . Impression and Plan Plan: 10/12/19 Awaiting results of RIA Possible surgery tomorrow vs Wednesday I discussed pt with Surface Supervisor, Dr. Howell and he is okay with proceeding with surgical plan at any time. 10/13/19 RIA: S/p mitral ring repair. Tethering of the posterior mitral leaflet. Severe mitral regurgitation (4+) is present. Eccentric, anteriorly directed regurgitant mitral jet. No vegetations. Redo MVR on Wednesday by Dr. [facility] Marijuana daily smoker - Pre-Op Diagnosis, Medical. Chronic renal failure, stage 4 (severe) - Pre-Op Diagnosis, Medical. COPD (chronic obstructive pulmonary disease) - Pre-Op Diagnosis, Medical. Chronic systolic, valvular congestive heart failure, NYHA class 3 - Pre-Op Diagnosis, Medical. Systemic hypertension - Pre-Op Diagnosis, Medical. Severe GERD (gastroesophageal reflux disease) - Pre-Op Diagnosis, Medical. Nicotine dependence in remission since Aug 2019 - Pre-Op Diagnosis, Medical. History of NSTEMI (non-ST elevated myocardial infarction) - Pre-Op Diagnosis, Medical. History of Obesity S/P Lap band surgery and BMI is now 20.4 - Pre-Op Diagnosis, Medical. Restless leg syndrome - Pre-Op Diagnosis, Medical. History of Sleep apnea - Pre-Op Diagnosis, Medical. History of TIA (transient ischemic attack) - Pre-Op Diagnosis, Medical. Electronically signed by Evaristo Loyola Conversion Maintenance Worker Swimming Pool Cerner at 10/28/2022 7:08 PM CDT documented in this encounter Plan of Treatment Upcoming Encounters Date Type Department Care Team (Late st Contact Info) Description 04/12/2025 7:30 AM EDT Hospital Encounter [facility] Operating Room [address] [place] [address] Bill Graham MD [address] [place] [address] [place] [address] 04/12/2025 7:30 AM EDT Anesthesia Event [facility] Operating Room [address] [place] [address] Lucio Szymanski MD [address] [place] [address] 04/12/2025 7:30 AM EDT - 04/12/2025 8:55 AM EDT Surgery [facility] Operating Room [address] [place] [address] Bill Graham MD [address] [facility] [address] [place] [address] (LAPAROSCOPIC PERITONEAL DIALYSIS CATHETER INSERTION) Scheduled Procedures Name Priority Associated Diagnoses Date/Ti me LAPAROSCOPY, WITH PERITONEAL DIALYSIS CATHETER INSERTION Chronic kidney disease, stage V (HCC) 04/12/2025 7:30 AM EDT documented as of this encounter Visit Diagnoses Not on filedocumented in this encounter Care Teams Wind Operations Manager Relationship Specialty Start Date End Date Félix Monroe, BLOOD BANK WORKER [address] [facility] [address] [place] [address] PCP - General Nurse Practitioner 08/25/22 documented as of this encounter
--- OUTSIDE RECORDS SUMMARY | 2025-04-11 11:02 | XMS_ITS | Encounter Summary ---
Author Organization Healthcare Address [address] [place] [address] Care Team Providers Care Breakfast Supervisor Name Role Phone Az David MD Primary Care Provider [phone] Encounter Details Date Type Department Care Team (Late st Contact Info) Description 03/30/2025 Telephone [facility] Jorge A [address] [facility] [place] [address] Jocelynn Patel, PharmD [address] [place] [address] Social History Tobacco Use Types [...] any time in the past 12 [facility], were you homeless or living in a penitentiary (including now)? No 02/26/2025 CAGE ASSESSMENT Answer [...] drink first t mohamud in the morning (EYE-VENDOR ANALYST) to steady your nerves or to get rid of a hangover? 0 03/23/2023 CAGE Questionnaire Score 0 023 Utilities Answer Date Recorded In the past 12 months has th e Fro[employer], gas, oil, or water company threatened to [...] encounter Miscellaneous Notes * Progress Notes - Jocelynn Patel, PharmD - 03/30/2025 12:25 PM EDT Clinic received a call from Dr. Bill Graham's office in regards to needing cardiac clearance for the patient for an upcoming PD catheter placement scheduled for 04/12. Discussed with office that the cardiac clearance will need to come from the patient's outsole skiver. Clinic spoke with patient earlier this week and was told that the patient would be undergoing the procedure today, Friday 03/30 so the patient had been holding warfarin since Sunday 03/25. Discussed with patient to resume warfarin with the previous instructions of RESUME warfarin on Friday 03/30 afterprocedure with a BOOST dose of 6 mg x 1 then resume maintenance dose of warfarin 4 mg daily. Patient to check INR in 5 days on Wednesday 04/04. Reviewed s/sx of DVT/PE/stroke, such as, swelling, warm skin, SOB, chest pain, slurred speech, or droopy face, and to report to the ED if any of these are present. Patient verbalized understanding and did not have any additional questions or concerns. Jocelynn Patel, JackD, [facility] Anticoagulation Clinic documented in this encounter Plan of Treatment Upcoming Encounters Date Type Department Care Team (Late st Contact Info) Description 05/24/2025 1:40 PM EST Office Visit [facility] Jorge A [address] [place] [address] Lenore Cosme MD [address] [place] [address] 08/02/2025 1:40 PM EST Office Visit [facility] Jorge A [address] [place] [address] Lenore Cosme MD [address] [place] [address] documented as of this encounter Visit Diagnoses [...] documented as of this encounter Care Teams Breakfast Supervisor Relationship Specialty Start Date End Date Az David MD [address] [place] [address] PCP - General 03/22/23 documented as of this encounter
--- OUTSIDE RECORDS SUMMARY | 2025-04-11 11:02 | XMS_ITS | Encounter Summary ---
Author Organization [employer] ([place], [place], [place], [place]) Address [address] [address] Care Team Providers Care Canopy Stringer Name Role Phone Ramos Monroeie Francisco RODRIGUEZ Primary Care Provider [phone] Encounter Details Date Type Department Care Team (Late st Contact Info) Description 10/14/2019 Transcribed Document [facility] Family Medicine [address] [place] [address] ProviderMaria Esther MD [address] [place] [address] Social History Tobacco Use Types Packs/Day Years Used Date Smoking Tobacco: Never Assessed Comments Unknown Sex and Gender Information Value Date Recorded Sex Assigned at Not on file Legal Sex Female 6:53 PM CDT Gender Identity Not on file Sexual Orientation Not on file documented as of this encounter Miscellaneous Notes * Cerner Conversion Note - Maria Esther Reyes MD - 10/14/2019 6:11 AM CDT Patient: CORRIE SMITH Age: 49 years Sex: Female : 1970 Associated Diagnoses: None Author: CHLOE LIM MD-ONC Subjective chart check for labs at Dr Bowser's request, patient not seen Health Status Problem list: Medical NSTEMI, initial episode of care / SNOMED CT 2552471613 / Confirmed At risk for sleep apnea / IMO [id number] / Confirmed CHF, acute on chronic / SNOMED CT 97919254 / Confirmed Class 3 Systolic GERD - Gastro-esophageal reflux disease / SNOMED CT 8373190931 / Confirmed H/O: TIA / SNOMED CT 511021641 / Confirmed History of laparoscopic adjustable gastric banding / SNOMED CT 2860611117 / Confirmed History of obstructive sleep apnea / IMO 45522592 / Confirmed HTN - Hypertension / SNOMED CT 6759765389 / Confirmed Mitral regurgitation / SNOMED CT 51450042 / Confirmed Prolonged QT interval / SNOMED CT 417679662 / Confirmed Pulmonary edema / SNOMED CT 71376654 / Confirmed Restless legs syndrome / SNOMED CT 65465552 / Confirmed RF - Renal failure, Stage 4 / SNOMED CT 8298908625 / Confirmed Sleep apnea-before weight loss surgery / SNOMED CT 119548884 / Confirmed, Active Problems (15) At risk [...] 4 Sleep apnea-before weight loss surgery Objective VS/Measurements Vitals Signs (last 24 hrs) Last Charted Minimum Maximum Temp 97.7 (OCT 12 14:12) 97.7 (OCT 12 14:12) 97.9 (OCT 12 08:00) Apical HR 94 (OCT 12 08:41) 94 (OCT 12 06:37) 94 (OCT 12 06:37) Mon HR 88 (OCT 13 02:30) 88 (OCT 13 02:30) 94 (OCT 12 13:10) Resp Rate H 38 (OCT 12 09:00) 14 (OCT 12 07:00) H 38 (OCT 12 09:00) SBP 135 (OCT 13 02:30) 127 (OCT 12 10:19) H 173 (OCT 12 22:45) DBP H 98 (OCT 13 02:30) 77 (OCT 12 10:19) H 114 (OCT 12 18:12) MAP 111 (OCT 13 02:30) 105 (OCT 12 13:10) 129 (OCT 12 18:12) SpO2 100 (OCT 12 21:29) 98 (OCT 12 09:00) 100 (OCT 12 08:00) Impression and Plan Chart check for labs at Dr Bowser's request, patient not seen. Hemoglobin 7.5 today, would transfuse if drops below 7. No other recs.Covering for Dr Ronan Bowser Electronically signed by [facility] Conversion Linux Support Engineer Certristen at 10/28/2022 7:02 PM CDT documented in this encounter Plan of Treatment Upcoming Encounters Date Type Department Care Team (Late st Contact Info) Description 04/12/2025 7:30 AM EDT Hospital Encounter [facility] Operating Room [address] [place] [address] [place] [address] [place] [address] [address] 04/12/2025 7:30 AM EDT Anesthesia Event [facility] Operating Room [address] [place] [address] Lucio Szymanski MD [address] [place] [address] 04/12/2025 7:30 AM EDT - 04/12/2025 8:55 AM EDT Surgery [facility] Operating Room [address] [place] [address] Bill Graham MD [address] [place] [address] (LAPAROSCOPIC PERITONEAL DIALYSIS CATHETER INSERTION) Scheduled Procedures Name Priority Associated Diagnoses Date/Ti me LAPAROSCOPY, WITH PERITONEAL DIALYSIS CATHETER INSERTION Chronic kidney disease, stage V (HCC) 04/12/2025 7:30 AM EDT documented as of this encounter Visit Diagnoses Not on filedocumented in this encounter Care Teams Canopy Stringer Relationship Specialty Start Date End Date Félix Monroe, HIGH SCHOOL BUSINESS TEACHER [address] [facility] [address] [place], [place] [id number] PCP - General Nurse Practitioner 08/25/22 documented as of this encounter
--- OUTSIDE RECORDS SUMMARY | 2025-04-11 11:02 | XMS_ITS | Encounter Summary ---
Author Organization [employer] ([place], [place], [place], [place]) Address [address] [place] [address] Care Team Providers Care Geriatric Assistant Name Role Phone Fer Félix Francisco RODRIGUEZ Primary Care Provider [phone] Encounter Details Date Type Department Care Team (Late st Contact Info) Description 10/13/2019 Transcribed Document [facility] Family Medicine [facility] [place] [address] ProviderMaria Esther MD [address] [place] [address] Social History Tobacco Use Types Packs/Day Years Used Date Smoking Tobacco: Never Assessed Comments Unknown Sex and Gender Information Value Date Recorded Sex Assigned at Not on file Legal Sex Female 6:53 PM CDT Gender Identity Not on file Sexual Orientation Not on file documented as of this encounter Miscellaneous Notes * Cerner Conversion Note - Maria Esther Reyes MD - 10/13/2019 3:05 PM CDT Patient: CORRIE SMITH Age: 49 years Sex: Female : 1970 Associated Diagnoses: None Author: CHRISTIANO KITCHEN MD-INT Basic Information Time of exam 1115 The patient was sitting up on the bedside at the time of exam and in no acute distress. She was feeling improved today. She was able to take a shower this morning. She is aware of the plan for valve surgery Wednesday. She is also aware her renal function has been worsening. She had no specific complaints today. Review of Systems Respiratory: No shortness of breath, No cough. Cardiovascular: No chest pain, No palpitations. Health Status Allergies: Allergies (1) Active Reaction gerald Fu Current medications: (Selected) Inpatient Medications Ordered Core.5 [...] cloNIDine: 0.1 mg, Oral, Q4H, PRN: Hypertension epoetin mayra: 20,000 Units, SubCutaneous, 1-Time hydrALAZINE: 10 mg, IV Push, Q6H, [...] Tab, Oral, At Bedtime, 90 Tab, 0 Refill(s) Problem list: Medical NSTEMI, initial episode of care / SNOMED CT 0794791251 / Confirmed At risk for sleep apnea / IMO 39414871 / Confirmed CHF, acute on chronic / SNOMED CT 79425075 / Confirmed Class 3 Systolic GERD - Gastro-esophageal reflux disease / SNOMED CT 7394969545 / Confirmed H/O: TIA / SNOMED CT 840453898 / Confirmed History of laparoscopic adjustable gastric banding / SNOMED CT 2073126828 / Confirmed History of obstructive sleep apnea / IMO 43923811 / Confirmed HTN - Hypertension / SNOMED CT 0046263259 / Confirmed Mitral regurgitation / SNOMED CT 11571157 / Confirmed Prolonged QT interval / SNOMED CT 327619466 / Confirmed Pulmonary edema / SNOMED CT 10837169 / Confirmed Restless legs syndrome / SNOMED CT 53379332 / Confirmed RF - Renal failure, Stage 4 / SNOMED CT 6526463693 / Confirmed Sleep apnea-before weight loss surgery / SNOMED CT 631887105 / Confirmed, Active Problems (15) At risk [...] Stage 4 Sleep apnea-before weight loss surgery Physical Examination VS/Measurements Vitals Signs (last 24 hrs) Last Charted Minimum Maximum Temp 97.8 (OCT 12 13:10) 97.8 (OCT 12 13:10) 98.2 (OCT 12 00:00) Apical HR 94 (OCT 12 08:41) 80 (OCT 12 03:27) 94 (OCT 12 06:37) Mon HR 94 (OCT 12 13:10) 80 (OCT 12 03:00) 94 (OCT 12 13:10) Resp Rate H 38 (OCT 12 09:00) 14 (OCT 12 02:00) H 38 (OCT 12 09:00) SBP 134 (OCT 12 13:10) 127 (OCT 12 10:19) H 173 (OCT 12 04:00) DBP 89 (OCT 12 13:10) 77 (OCT 12 10:19) H 108 (OCT 12 06:00) MAP 105 (OCT 12 13:10) 105 (OCT 12 13:10) 134 (OCT 12 06:00) SpO2 98 (OCT 12 09:00) 98 (OCT 12 09:00) 100 (OCT 11 16:00) General: Alert and oriented, No acute distress. Eye: Pupils are equal, round and reactive to light, Extraocular movements are intact, Normal conjunctiva. HENT: Normocephalic, Oral mucosa is moist. Neck: Supple, Non-tender. Respiratory: Lungs are clear to auscultation, Respirations are non-labored, Breath sounds are equal, Symmetrical chest wall expansion, No chest wall tenderness. Cardiovascular: Normal rate, Regular rhythm, No murmur, No gallop, Good pulses equal in all extremities, Normal peripheral perfusion, No edema. Gastrointestinal: Soft, Non-tender, Non-distended, Normal bowel sounds. Musculoskeletal: Normal range of motion, Normal strength, No tenderness, No swelling, No deformity. Integumentary: Warm, Dry, Intact, No rash. Neurologic: Alert, Oriented, Normal sensory, Normal motor function, No focal deficits, Cranial Nerves II-XII are grossly intact, Gag reflex normal, Normal deep tendon reflexes. Psychiatric: Cooperative, Appropriate mood & affect. Review / Management Results review: Labs (Last [...] (OCT 11) H 0.091 (OCT 10) . Impression and Plan 1. Acute blood loss anemia: Suspect hemolysis, likely secondary to valve. Hematology input appreciated. Hemoglobin stable today. 2. Mitral valve insufficiency s/p recent annuloplasty: CT Surgery following. RIA noted. Planning for mitral valve re-do on Wednesday. 3. Hypertensive urgency: Improved, off cardene. Continue coreg, norvasc. 4. Prolonged QT: Cardiology following. 5. LETY on CKD stage IV: Worsening. Nephrology recommending continuation of IV fluids. 6. Hyperbilirubinemia: May be secondary to hemolytic process. 7. Chronic systolic CHF: Continue cardiac meds as able. Disposition: Uncertain at this time but hopefully home once medically improved. documented in this encounter Plan of Treatment Upcoming Encounters Date Type Department Care Team (Late st Contact Info) Description 04/12/2025 7:30 AM EDT Hospital Encounter [facility] Operating Room [address] [place] [address] Bill Graham MD [address] [place] [address] [address] [place] [address] 04/12/2025 7:30 AM EDT Anesthesia Event [facility] Operating Room [address] [place] [address] Lucio Szymanski MD [address] [place] [address] 04/12/2025 7:30 AM EDT - 04/12/2025 8:[address] [facility] Operating Room [address] [place] [address] Bill Graham MD [address] [facility] [address] [place] [address] (LAPAROSCOPIC PERITONEAL DIALYSIS CATHETER INSERTION) Scheduled Procedures Name Priority Associated Diagnoses Date/Ti me LAPAROSCOPY, WITH PERITONEAL DIALYSIS CATHETER INSERTION Chronic kidney disease, stage V (HCC) 04/12/2025 7:30 AM EDT documented as of this encounter Visit Diagnoses Not on filedocumented in this encounter Care Teams Geriatric Assistant Relationship Specialty Start Date End Date Félix Monroe, LOCKSTITCHER [address] [facility] [address] [place] [address] PCP - General Nurse Practitioner 08/25/22 documented as of this encounter
--- OUTSIDE RECORDS SUMMARY | 2025-04-11 11:02 | XMS_ITS | Encounter Summary ---
Author Organization [employer] ([place], [place], [place], [place]) Address [address] [address] Care Team Providers Care Cafeteria Supervisor Name Role Phone Félix Monroe Francisco RODRIGUEZ Primary Care Provider [phone] Encounter Details Date Type Department Care Team (Latest Contact Info) Description 03/30/2025 Travel Social History Tobacco Use Types Packs/Day [...] Date Josias rded Speak language other than Guamanian at home Not on file 07/30/2023 Want [...] Encounter [facility] Operating Room [address] [place] [address] Bill Graham MD [address] [facility] [address] [place] [address] 04/12/2025 7:30 AM EDT Anesthesia Event [facility] Operating Room [address] [place] [address] Lucio Szymanski MD [address] [place] [address] 04/12/2025 7:30 AM EDT - 04/12/2025 8:55 AM EDT Surgery [facility] Operating Room [address] [place] [address] [place] [address] [place] [address] (LAPAROSCOPIC PERITONEAL DIALYSIS CATHETER INSERTION) Scheduled Procedures Name Priority Associated Diagnoses Date/Ti me LAPAROSCOPY, WITH PERITONEAL DIALYSIS CATHETER INSERTION Chronic kidney disease, stage V (HCC) 04/12/2025 7:30 AM EDT documented as of this encounter Visit Diagnoses Not on filedocumented in this encounter Care Teams Cafeteria Supervisor Relationship Specialty Start Date End Date Félix Monroe, VETERINARY PATHOLOGIST [address] [facility] [address] [place] [address] PCP - General Nurse Practitioner 08/25/22 documented as of this encounter
--- OUTSIDE RECORDS SUMMARY | 2025-04-11 11:02 | XMS_ITS | Encounter Summary ---
Author Organization [employer] ([place], [place], [place], [place]) Address [address] [place] [address] Care Team Providers Care J2Ee Application Developer Name Role Phone Félix Monroe APRN Primary Care Provider [phone] Encounter Details Date Type Department Care Team (Late st Contact Info) Description 10/14/2019 Transcribed Document [facility] Family Medicine [address] [place] [address] ProviderMaria Esther MD [address] [place] [address] Social History Tobacco Use Types Packs/Day Years Used Date Smoking Tobacco: Never Assessed Comments Unknown Sex and Gender Information Value Date Recorded Sex Assigned at Not on file Legal Sex Female 6:53 PM CDT Gender Identity Not on file Sexual Orientation Not on file documented as of this encounter Miscellaneous Notes * Cerner Conversion Note - Maria Esther Reyes MD - 10/14/2019 9:01 AM CDT Patient: CORRIE SMITH Age: 49 [...] History of TIA (transient ischemic attack) Author: SABRINA CONLEY PA Basic Information This is a 49y/o female who underwent MV repair 08/29/[address] Valdez and had an uneventful hospital course and was discharged on 09/04/19. She initially presented to [facility] with a two day history of dark [...] her chart. Therefore she was transferred to [facility] for further work up and evaluation. The pt is scheduled to have a RIA today. Her H/H today are stable at 8.4/25.0. She does have a history of Chronic stage IV renal failure and Creatinine today is 3.1. Her baseline range is 2.0-2.[address] Howell has been consulted as they were following her during her last hospitalization. 10/13/19: The pt states I feel much better. 10/14/19: Nervous, but looking forward to getting problem fixed Health Status Allergies: Allergies (1) Active Reaction codeine Nickie Physical Examination VS/Measurements Vital Measurements 10/14/2019 8:10 EDT Oxygen Saturation 98 % Oxygen Therapy Mode Room air 10/14/2019 2:30 EDT Systolic Blood Pressure 135 mmHg Diastolic Blood Pressure 98 mmHg HI Heart Rate Monitored 88 bpm 10/13/2019 14:12 EDT Temperature, Fahrenheit 97.7 Deg F General: No acute distress. Respiratory: Respirations are non-labored. Cardiovascular: Normal rate, 94 beats per minute, Regular rhythm, No edema. Neurologic: Alert, Oriented. Psychiatric: Cooperative, Appropriate mood & affect. Review / Management Results review: OCT 13 03:16 139 110 H 29 / 94 L 3.4 L 19 H 3.80 \ Blood Gases (Current Encounter/Past 24 Hours) No Blood Gas Results Found (Past 24 Hours) Coagulation Results (Current Encounter/Past 24 Hours) PT 11.7 Second(s) 10/13/2019 04:01 PTT 27.0 Second(s) 10/13/2019 04:01 INR 1.1 10/13/2019 04:01 . Impression and Plan Plan: 10/12/19 Awaiting results of RIA Possible surgery tomorrow vs Wednesday I discussed pt with Consulting Sme, Dr. Howell and he is okay with proceeding with surgical plan at any time. 10/13/19 RIA: S/p mitral ring repair. Tethering of the posterior mitral leaflet. Severe mitral regurgitation (4+) is present. Eccentric, anteriorly directed regurgitant mitral jet. No vegetations. Redo MVR on Wednesday by Dr. Valdez Transfer to [facility] 10/14/19 Reentry sternotomy for MVR Wednesday by Dr. Valdez Creatinine 3.8 (4.0 yesterday) nephrology following Hemolytic anemia with Hematocrit 23.0 (24.8 yesterday). Hematology following History of prolonged QT. Will DC Zofran. Diagnosis Marijuana daily smoker - Pre-Op Diagnosis, [...] Medical. Electronically signed by Evaristo Loyola Conversion Director Of Mechanical Engineering Cerner at 10/28/2022 7:02 PM CDT documented in this encounter Plan of Treatment Upcoming Encounters Date Type Department Care Team (Late st Contact Info) Description 04/12/2025 7:30 AM EDT Hospital Encounter [facility] Operating Room 1 [place] [address] Bill Graham MD [address] [place] [address] [address] [place], [place] [id number] 04/12/2025 7:30 AM EDT Anesthesia Event [facility] Operating Room 1 [place] [address] Lucio Szymanski MD [address] [place] [address] 04/12/2025 7:30 AM EDT - 04/12/2025 8:[address] [facility] Operating Room 1 [place] [address] Bill Graham MD [address] [facility] [address] [place], [place] [id number] (LAPAROSCOPIC PERITONEAL DIALYSIS CATHETER INSERTION) Scheduled Procedures Name Priority Associated Diagnoses Date/Ti me LAPAROSCOPY, WITH PERITONEAL DIALYSIS CATHETER INSERTION Chronic kidney disease, stage V (HCC) 04/12/2025 7:30 AM EDT documented as of this encounter Visit Diagnoses Not on filedocumented in this encounter Care Teams J2Ee Application Developer Relationship Specialty Start Date End Date Félix Monroe, NURSING SERVICES MANAGER [address] [facility] [address] [place], [place] [id number] PCP - General Nurse Practitioner 08/25/22 documented as of this encounter
--- OUTSIDE RECORDS SUMMARY | 2025-04-11 11:02 | XMS_ITS | Encounter Summary ---
Author Organization [employer] ([place], [place], [place], [place]) Address [address] [place] [address] Care Team Providers Care Stage Builder Name Role Phone Félix Monroe APRN Primary Care Provider [phone] Encounter Details Date Type Department Care Team (Late st Contact Info) Description 10/13/2019 Transcribed Document [facility] Family Medicine [address] [place] [address] ProviderMaria Esther MD [address] [place] [address] Social History Tobacco Use Types Packs/Day Years Used Date Smoking Tobacco: Never Assessed Comments Unknown Sex and Gender Information Value Date Recorded Sex Assigned at Not on file Legal Sex Female 6:53 PM CDT Gender Identity Not on file Sexual Orientation Not on file documented as of this encounter Miscellaneous Notes * Cerner Conversion Note - Historical ProviderMD - 10/13/2019 5:00 PM CDT Chart Check - Review Order Profile Entered On: 10/13/2019 16:51 EDT Performed On: 10/13/2019 17:00 EDT by DAYSI PACHECO, RN Chart Check All Active Orders Reviewed : Yes DAYSI PACHECO, RN - 10/13/2019 16:51 EDT documented in this encounter Plan of Treatment Upcoming Encounters Date Type Department Care Team (Late st Contact Info) Description 04/12/2025 7:30 AM EDT Hospital Encounter [facility] Operating Room 1 [place] [address] Bill Graham MD [address] [facility] [address] [place] [address] 04/12/2025 7:30 AM EDT Anesthesia Event [facility] Operating Room [address] [place] [address] Lucio Szymanski MD [address] [place] [address] 04/12/2025 7:30 AM EDT - 04/12/2025 8:55 AM EDT Surgery [facility] Operating Room 1 [place] [address] Bill Graham MD [address] [facility] [address] [place] [address] (LAPAROSCOPIC PERITONEAL DIALYSIS CATHETER INSERTION) Scheduled Procedures Name Priority Associated Diagnoses Date/Ti me LAPAROSCOPY, WITH PERITONEAL DIALYSIS CATHETER INSERTION Chronic kidney disease, stage V (HCC) 04/12/2025 7:30 AM EDT documented as of this encounter Visit Diagnoses Not on filedocumented in this encounter Care Teams Stage Builder Relationship Specialty Start Date End Date Félix Monroe, CRM SPECIALIST [address] [facility] [address] [place] [address] PCP - General Nurse Practitioner 08/25/22 documented as of this encounter
--- OUTSIDE RECORDS SUMMARY | 2025-04-11 11:02 | XMS_ITS | Encounter Summary ---
Author Organization [employer] ([place], [place], [place], [place]) Address [address] [place] [address] Care Team Providers Care Resolution Specialist Name Role Phone Félix Monroe APRN Primary Care Provider [phone] Encounter Details Date Type Department Care Team (Late st Contact Info) Description 10/13/2019 Transcribed Document [facility] Family Medicine [address] [place] [address] ProviderMaria Esther MD [address] [place] [address] Social History Tobacco Use Types Packs/Day Years Used Date Smoking Tobacco: Never Assessed Comments Unknown Sex and Gender Information Value Date Recorded Sex Assigned at Not on file Legal Sex Female 6:53 PM CDT Gender Identity Not on file Sexual Orientation Not on file documented as of this encounter Miscellaneous Notes * Cerner Conversion Note - Maria Esther ProviderMD - 10/13/2019 5:00 AM CDT Chart Check - Review Order Profile Entered On: 10/13/2019 5:11 EDT Performed On: 10/13/2019 5:00 EDT by MARICARMEN GARCIA RN Chart Check Powerplans Initiated/Discontinued as Appropriate : Yes All Active Orders Reviewed : Yes MARICARMEN GARCIA RN - 10/13/2019 5:11 EDT documented in this encounter Plan of Treatment Upcoming Encounters Date Type Department Care Team (Late st Contact Info) Description 04/12/2025 7:30 AM EDT Hospital Encounter [facility] Operating Room 1 [place] [address] Bill Graham MD [address] [facility] [address] [place] [address] 04/12/2025 7:30 AM EDT Anesthesia Event [facility] Operating Room 1 [place] [address] Lucio Szymanski MD [address] [place] [address] 04/12/2025 7:30 AM EDT - 04/12/2025 8:55 AM EDT Surgery [facility] Operating Room [address] [place] [address] Bill Graham MD [address] [facility] [address] [place] [address] (LAPAROSCOPIC PERITONEAL DIALYSIS CATHETER INSERTION) Scheduled Procedures Name Priority Associated Diagnoses Date/Ti me LAPAROSCOPY, WITH PERITONEAL DIALYSIS CATHETER INSERTION Chronic kidney disease, stage V (HCC) 04/12/2025 7:30 AM EDT documented as of this encounter Visit Diagnoses Not on filedocumented in this encounter Care Teams Resolution Specialist Relationship Specialty Start Date End Date Félix Monroe, LINEN SORTER [address] [facility] [address] [place] [address] PCP - General Nurse Practitioner 08/25/22 documented as of this encounter
--- OUTSIDE RECORDS SUMMARY | 2025-04-11 11:02 | XMS_ITS | Encounter Summary ---
Author Organization [employer] ([place], [place], [place], [place]) Address [address] [address] Care Team Providers Care Radiotelegraph Operator Servicer Name Role Phone Félix Monroe Francisco RODRIGUEZ Primary Care Provider [phone] Encounter Details Date Type Department Care Team (Late st Contact Info) Description 10/13/2019 Transcribed Document [facility] [place] Family Medicine [address] [place] [address] ProviderMaria Esther MD [address] [place] [address] Social History Tobacco Use Types Packs/Day Years Used Date Smoking Tobacco: Never Assessed Comments Unknown Sex and Gender Information Value Date Recorded Sex Assigned at Not on file Legal Sex Female 6:53 PM CDT Gender Identity Not on file Sexual Orientation Not on file documented as of this encounter Miscellaneous Notes * Cerner Conversion Note - Maria Esther Reyes MD - 10/13/2019 10:11 AM CDT On Going Discharge Planning Entered On: 10/13/2019 10:19 EDT Performed On: 10/13/2019 10:11 EDT by RAKESH PARRA, RN-Obstetrics TeacherFoiling Machine Adjuster Progress Note Discharge Arrangements : Patient Post-Acute Information Patient Name: CORRIE SMITH Gender: Female : [birth year] Age: 49 Years No Post-Acute Placement(s) Listed No Post-Acute Service(s) Listed No [place] Referral(s) Listed RAKESH PARRA RN-Obstetrics Teacher - 10/13/2019 10:22 EDT Is the Patient Meeting Medical Necessity : Yes RAKESH PARRA RN-Obstetrics Teacher - 10/13/2019 10:11 EDT Narrative Progress Note Historical Progress Note : Cm received information from [facility]. ??m recieved letter and called for verification and spoke to radha. michael allows these [facility] health companies [facility], and [facility]. RAKESH PARRA RN-Obstetrics Teacher - 10/13/19 10:19:59 Narrative Progress Note : Cm received information from [facility]. Cm recieved letter and called for verification and spoke to radha. anthem allows these home health companies : [facility], [facility], and [facility]. Patient is normally independent . patient still denies need for hh and dme. cm will arrange for any needs at discharge. DCP: home vs hh RAKESH PARRA RN-Obstetrics Teacher - 10/13/2019 10:22 EDT documented in this encounter Plan of Treatment Upcoming Encounters Date Type Department Care Team (Late st Contact Info) Description 04/12/2025 7:30 AM EDT Hospital Encounter [facility] Operating Room 1 [place] [address] Bill Graham MD [address] [place] [address] 04/12/2025 7:30 AM EDT Anesthesia Event [facility] Operating Room 1 [place] [address] Lucio Szymanski MD [address] [place], [place] [phone] 04/12/2025 7:30 AM EDT - 04/12/2025 8:55 AM EDT Surgery [facility] Operating Room 1 [place] [address] Bill Graham MD [address] [place] [address] (LAPAROSCOPIC PERITONEAL DIALYSIS CATHETER INSERTION) Scheduled Procedures Name Priority Associated Diagnoses Date/Ti me LAPAROSCOPY, WITH PERITONEAL DIALYSIS CATHETER INSERTION Chronic kidney disease, stage V (HCC) 04/12/2025 7:30 AM EDT documented as of this encounter Visit Diagnoses Not on filedocumented in this encounter Care Teams Radiotelegraph Operator Servicer Relationship Specialty Start Date End Date Félix Monroe, STROBOROMA OPERATOR [address] [facility] [address] [place] [address] PCP - General Nurse Practitioner 08/25/22 documented as of this encounter
--- OUTSIDE RECORDS SUMMARY | 2025-04-11 11:02 | XMS_ITS | Encounter Summary ---
Author Organization [employer] ([employer] in 2014) ([place], [place], [place], [place]) Address [address] [address] Care Team Providers Care Sap Business Intelligence Consultant Name Role Phone Fer Félix Singh APRN Primary Care Provider [phone] Encounter Details Date Type Department Care Team (Late st Contact Info) Description 10/13/2019 Transcribed Document [facility] [place] Family Medicine [address] [place] [address] ProviderMaria Esther MD [address] [place], [place] [address] Social History Tobacco Use Types Packs/Day Years Used Date Smoking Tobacco: Never Assessed Comments Unknown Sex and Gender Information Value Date Recorded Sex Assigned at Not on file Legal Sex Female 6:53 PM CDT Gender Identity Not on file Sexual Orientation Not on file documented as of this encounter Miscellaneous Notes * Cerner Conversion Note - Maria Esther Reyes MD - 10/13/2019 12:13 PM CDT UM Authorization Entered On: 10/13/2019 12:13 EDT Performed On: 10/13/2019 12:13 EDT by DOUGLAS JEREZ RN-Utilization Review Primary Insurance Authorization Authorization and Policy Numbers : Insurance 1 Health Plan: [place] [employer] Policy Number: [id number] Authorization Number: Insurance Primary Name : [place] [employer] Policy Number: [id number] Authorization Status-Primary : Admit approved Reference Number-Primary : [id number] Authorization Number-Primary : [id number] Number of Days Authorized-Primary : 6 Day(s) Authorized Service Begin Date-Primary : 10/11/2019 EDT Authorized Service End Date-Primary : 10/17/2019 EDT Historical Authorization Comments-Primary : Comment 1: Authorized per fax 10/12/2019 @ 1825. Approved x7 days, 10/11/2019 - 10/17/2019. Next review due: 10/17/2019. (Deborah Toro, Superior Court Justice 10/13/2019 07:31) Comment 2: submitted on availity for IP auth w/ clinicals attached (JESSICA GUIDO, RN-Utilization Review 10/12/2019 10:36) DOUGLAS JEREZ RN-Utilization Review - 10/13/2019 12:13 EDT Electronically signed by [facility], [facility] Conversion Surface Grinding Machine Hand Cerner at 10/28/2022 7:24 PM CDT documented in this encounter Plan of Treatment Upcoming Encounters Date Type Department Care Team (Late st Contact Info) Description 04/12/2025 7:30 AM EDT Hospital Encounter [facility] Operating Room 1 [place] [address] Bill Graham MD [address] [place] [address] 04/12/2025 7:30 AM EDT Anesthesia Event [facility] Operating Room 1 [place] [address] Lucio Szymanski MD [address] [place] [address] 04/12/2025 7:30 AM EDT - 04/12/2025 8:55 AM EDT Surgery [facility] Operating Room 1 [place] [address] Bill Graham MD [address] [place] [address] (LAPAROSCOPIC PERITONEAL DIALYSIS CATHETER INSERTION) Scheduled Procedures Name Priority Associated Diagnoses Date/Ti me LAPAROSCOPY, WITH PERITONEAL DIALYSIS CATHETER INSERTION Chronic kidney disease, stage V (HCC) 04/12/2025 7:30 AM EDT documented as of this encounter Visit Diagnoses Not on filedocumented in this encounter Care Teams Sap Business Intelligence Consultant Relationship Specialty Start Date End Date Félix Monroe, SPORTS ANALYST [address] [facility] [address] [place] [address] PCP - General Nurse Practitioner 08/25/22 documented as of this encounter
--- OUTSIDE RECORDS SUMMARY | 2025-04-11 11:02 | XMS_ITS | Encounter Summary ---
Author Organization [employer] ([place], [place], [place], [place]) Address [address] [address] Care Team Providers Care Medicaid Billing Clerk Name Role Phone Monroe Félix Francisco RODRIGUEZ Primary Care Provider [phone] Encounter Details Date Type Department Care Team (Late st Contact Info) Description 10/12/2019 Transcribed Document [facility] [place] [address] [place] [address] ProviderMaria Esther MD [address] [place] [address] Social History Tobacco Use Types Packs/Day Years Used Date Smoking Tobacco: Never Assessed Comments Unknown Sex and Gender Information Value Date Recorded Sex Assigned at Not on file Legal Sex Female 6:53 PM CDT Gender Identity Not on file Sexual Orientation Not on file documented as of this encounter Miscellaneous Notes * Cerner Conversion Note - Maria Esther Reyes MD - 10/12/2019 12:03 PM CDT Patient: CORRIE SMITH Age: 49 years Sex: Female : 1970 Associated Diagnoses: None Author: SHAWANDA LUIS MD-NEP Basic Information Time Seen: Date & Time 10/12/2019 12:04:00. Source of history: Nurse, Medical personnel, Medical [...] 4 mg, IV Push, Q4H, PRN: Nausea Zosyn + Sodium Chloride 0.9% intravenous solution 50 mL: 2.25 Gram, 16.67 mL/Hr, IV Piggyback, Q6HInt amLODIPine: 5 mg, Oral, Daily cloNIDine: 0.1 mg, Oral, Q4H, PRN: Hypertension doxycycline + Sodium Chloride 0.9% intravenous solution 100 mL: 100 mg, 50 mL/Hr, IV Piggyback, Q12H hydrALAZINE: 10 mg, IV Push, Q6H, PRN: Hypertension morphine: 2 mg, IV Push, Q2H, PRN: Pain (Severe 7-10) niCARdipine injection 25 mg + NaCl 0.9% for drip 250 mL: TITRATE, IntraVENous rOPINIRole: 1 mg, Oral, At Bedtime Documented [...] At Bedtime, 90 Tab, 0 Refill(s), Medications (16) Active Scheduled: (7) amLODIPine 5 mg tab 5 mg 1 Tab, Oral, Daily carvedilol 12.5 mg tab 12.5 mg 1 Tab, Oral, BID doxycycline hyclate + NaCl 0.9% 100 mL 100 mg, IV Piggyback, Q12H pantoprazole EC 40 mg tab 40 mg 1 Tab, Oral, Daily piperacillin-tazobactam + NaCl 0.9% 50 mL 2.25 Gram, IV Piggyback, Q6HInt rOPINIRole 1 mg tab 1 mg 1 Tab, Oral, At Bedtime senna/docusate 8.6/50 mg tab 1 Tab, Oral, BID Continuous: (2) NaCl 0.9% 1,000 mL 1,000 mL, IntraVENous, 100 mL/Hr niCARdipine 25 mg + NaCl 0.9% T ITRATE 250 mL 250 mL, IntraVENous PRN: (7) acetaminophen 325 mg tab 650 mg 2 [...] initial episode of care / SNOMED CT 2396247691 / Confirmed At risk for sleep apnea / IMO 91873466 / Confirmed CHF, acute on chronic / SNOMED CT 23141821 / Confirmed Class 3 Systolic GERD - Gastro-esophageal reflux disease / SNOMED CT 9913021461 / Confirmed H/O: TIA / SNOMED CT 049769766 / Confirmed History of laparoscopic adjustable gastric banding / SNOMED CT 5967477098 / Confirmed History of obstructive sleep apnea / IMO 01704113 / Confirmed HTN - Hypertension / SNOMED CT 1644004686 / Confirmed Mitral regurgitation / SNOMED CT 96568425 / Confirmed Prolonged QT interval / SNOMED CT 016656609 / Confirmed Pulmonary edema / SNOMED CT 92085309 / Confirmed Restless legs syndrome / SNOMED CT 78457981 / Confirmed RF - Renal failure, Stage 4 / SNOMED CT 9737676511 / Confirmed Sleep apnea-before weight loss surgery / SNOMED CT 493581957 / Confirmed, Active Problems (15) At risk [...] Past Medical History: Active HTN - Hypertension ([id number]) Family History: No family history items have [...] 24 hrs) Last Charted Minimum Maximum Temp 98.5 (OCT 11 08:00) 98.5 (OCT 11 08:00) 98.6 (OCT 10 15:45) Apical HR 93 (OCT 10 16:20) 93 (OCT 10 16:20) 93 (OCT 10 16:20) Mon HR 86 (OCT 11 11:00) 86 (OCT 11 05:00) 103 (OCT 10 17:15) Resp Rate L 13 (OCT 11 11:00) L 13 (OCT 11 05:00) H 52 (OCT 10 17:45) SBP H 148 (OCT 11 11:00) 122 (OCT 10 20:45) H 160 (OCT 11 03:00) DBP 88 (OCT 11 11:00) 62 (OCT 10 21:15) H 97 (OCT 11 09:00) MAP 112 (OCT 11 11:00) 88 (OCT 10 21:15) 122 (OCT 11 09:00) SpO2 99 (OCT 11 11:00) 98 (OCT 10 15:45) 100 (OCT 10 17:00) General: Alert and oriented, No acute distress. [...] (Last four charted values) WBC 10.2 (OCT 11) H 13.0 (OCT 10) HB L 8.9 (OCT 11) L 8.4 (OCT 11) L 8.8 (OCT 10) L 10.1 (OCT 10) HCT L 26.9 (OCT 11) L 25.0 (OCT 11) L 25.9 (OCT 10) L 29.4 (OCT 10) Plt 164 (OCT 11) 178 (OCT 10) Na 137 (OCT 11) L 135 (OCT 10) K 3.7 (OCT 11) 3.5 (OCT 10) Cl 105 (OCT 11) 105 (OCT 10) CO2 24 (OCT 11) 22 (OCT 10) BUN H 27 (OCT 11) H 24 (OCT 10) Cr H 3.10 (OCT 11) H 2.70 (OCT 10) Glu R H 115 (OCT 11) H 136 (OCT 10) Ca 9.2 (OCT 11) 9.1 (OCT 10) Lactic 1.2 (OCT 10) PT 11.2 (OCT 10) INR 1.1 (OCT 10) AST H 90 (OCT 11) H 145 (OCT 10) ALT 21 (OCT 11) 22 (OCT 10) ALK P 80 (OCT 11) 95 (OCT 10) T Bili H 1.8 (OCT 11) H 1.8 (OCT 11) H 3.0 (OCT 10) PTN 7.1 (OCT 11) 8.0 (OCT 10) ALB 3.4 (OCT 11) 3.9 (OCT 10) Lipase 147 (OCT 10) Troponin H 0.054 (OCT 11) H 0.091 (OCT 10) . Radiology Results (Last 48 hours) [id number] -- 10/11/2019 15:38 CR Chest 1 Vw [...] adenopathy, or acuteosseous abnormality.IMPRESSION: No acute abnormality. Impression and Plan 1. Chronic kidney disease stage IV, most probably secondary to hypertensive nephrosclerosis, baseline serum creatinine is 2 mg/dl 2. Risk of contrast-induced nephropathy, 3. Severe mitral regurgitation, status post repair in August of this year, complete dictated with hemolytic anemia, patient will be scheduled for mitral valve replacement this week. 4. Acute kidney injury most probably secondary to volume depletion and possibly acute tubular necrosis from hemolytic anemia, I would add normal saline 100 ML per hour to keep the patient's well-hydrated during this period. 5. Severe hemolytic anemia, most probably secondary to mitral valve disease, I will keep the patient's well-hydrated at this point, RIA was requested, hematology consultation is reviewed and appreciated. Electronically signed by Evaristo Loyola Conversion Typing Element Machine Operator Cerner at 10/28/2022 7:20 PM CDT documented in this encounter Plan of Treatment Upcoming Encounters Date Type Department Care Team (Late st Contact Info) Description 04/12/2025 7:30 AM EDT Hospital Encounter [facility] Operating Room 1 [place] [address] Bill Graham MD [address] [place] [address] [address] [place] [address] 04/12/2025 7:30 AM EDT Anesthesia Event [facility] Operating Room 1 [place] [address] Lucio Szymanski MD [address] [place] [address] 04/12/2025 7:30 AM EDT - 04/12/2025 8:55 AM EDT Surgery [facility] Operating Room 1 [place] [address] Bill Graham MD [address] [facility] [address] [place] [address] (LAPAROSCOPIC PERITONEAL DIALYSIS CATHETER INSERTION) Scheduled Procedures Name Priority Associated Diagnoses Date/Ti me LAPAROSCOPY, WITH PERITONEAL DIALYSIS CATHETER INSERTION Chronic kidney disease, stage V (HCC) 04/12/2025 7:30 AM EDT documented as of this encounter Visit Diagnoses Not on filedocumented in this encounter Care Teams Medicaid Billing Clerk Relationship Specialty Start Date End Date Félix Monroe, CLINICAL QUALITY MANAGER [address] [facility] [address] [place] [address] PCP - General Nurse Practitioner 08/25/22 documented as of this encounter
--- OUTSIDE RECORDS SUMMARY | 2025-04-11 11:02 | XMS_ITS | Encounter Summary ---
Author Organization [employer] ([place], [place], [place], [place]) Address [address] [address] Care Team Providers Care Handbag Finisher Name Role Phone Félix Monroe APRN Primary Care Provider [phone] Encounter Details Date Type Department Care Team (Late st Contact Info) Description 10/14/2019 Transcribed Document [facility] Radiology 1 [place] [address] Radha Villa MD [address] [place] [address] [address] [place] [address] Social History Tobacco Use Types Packs/Day Years Used Date Smoking Tobacco: Never Assessed Comments Unknown Sex and Gender Information Value Date Recorded Sex Assigned at Not on file Legal Sex Female 6:53 PM CDT Gender Identity Not on file Sexual Orientation Not on file documented as of this encounter Miscellaneous Notes * Cerner Conversion Note - Radha Villa MD - 10/14/2019 5:30 PM EDT Patient: CORRIE SMITH Age: 49 years Sex: Female : 1970 Associated Diagnoses: None Author: RADHA VILLA MD-NEP Basic Information Seen earlier today. Uncontrolled hypertension but with minimal symptoms. denies any shortness of breath or orthopnea with IV fluids. Health Status Allergies: Allergic Reactions (Selected) Severity Not Documented Codeine- Welts, nausea and hives. Current medications: (Selected) Inpatient Medications Ordered Core.5 [...] Daily Senna S: 1 Tab, Oral, BID Tylenol: 650 mg, Oral, Q4H, PRN: Other (See Comment) Xanax: 0.25 mg, Oral, BID, PRN: Anxiety amLODIPine: 10 mg, Oral, Daily aspirin: 81 mg, Oral, Daily cloNIDine: 0.1 mg, Oral, Q4H, PRN: Hypertension hydrALAZINE: 10 mg, IV Push, Q6H, PRN: Hypertension hydrALAZINE: 25 mg, Oral, TID morphine: 2 mg, IV Push, Q2H, PRN: Pain (Severe 7-10) nicotine 21 mg/24 hr transdermal film, extended release: 1 Patch, TransDermal, Daily rOPINIRole: 1 mg, Oral, At Bedtime Documented [...] initial episode of care / SNOMED CT 7439315738 / Confirmed At risk for sleep apnea / IMO 41569790 / Confirmed CHF, acute on chronic / SNOMED CT 19141735 / Confirmed Class 3 Systolic GERD - Gastro-esophageal reflux disease / SNOMED CT 8793182436 / Confirmed H/O: TIA / SNOMED CT 095919265 / Confirmed History of laparoscopic adjustable gastric banding / SNOMED CT 1806236395 / Confirmed History of obstructive sleep apnea / IMO 39141068 / Confirmed HTN - Hypertension / SNOMED CT 1295664794 / Confirmed Mitral regurgitation / SNOMED CT 84868007 / Confirmed Prolonged QT interval / SNOMED CT 629136128 / Confirmed Pulmonary edema / SNOMED CT 37147747 / Confirmed Restless legs syndrome / SNOMED CT 10139231 / Confirmed RF - Renal failure, Stage 4 / SNOMED CT 4955514975 / Confirmed Sleep apnea-before weight loss surgery / SNOMED CT 066790646 / Confirmed Histories Social History Social & Psychosocial Habits Alcohol [...] 24 hrs) Last Charted Minimum Maximum Temp 98.1 (OCT 13 14:30) 98.1 (OCT 13 14:30) 98.2 (OCT 13 09:00) Apical HR 76 (OCT 13 13:03) 76 (OCT 13 13:03) 76 (OCT 13 13:03) Mon HR 96 (OCT 13 14:30) 88 (OCT 13 02:30) 96 (OCT 13 13:05) SBP H 173 (OCT 13 14:30) 135 (OCT 13 02:30) H 194 (OCT 13 09:04) DBP H 116 (OCT 13 14:30) H 98 (OCT 13 02:30) H 122 (OCT 13 09:04) MAP 143 (OCT 13 14:30) 111 (OCT 13 02:30) 156 (OCT 13 09:04) SpO2 98 (OCT 13 08:10) 98 (OCT 12 18:12) 100 (OCT 12 21:29) General: Alert and oriented, No acute distress. [...] review: Labs (Last four charted values) WBC 7.0 (OCT 13) 10.2 (OCT 12) 10.2 (OCT 11) H 13.0 (OCT 10) HB L 7.5 (OCT 13) L 8.1 (OCT 12) L 8.9 (OCT 11) L 8.4 (OCT 11) HCT L 23.0 (OCT 13) L 24.8 (OCT 12) L 26.9 (OCT 11) L 25.0 (OCT 11) Plt L 144 (OCT 13) L 160 (OCT 12) 164 (OCT 11) 178 (OCT 10) Na 139 (OCT 13) 138 (OCT 12) 137 (OCT 11) L 135 (OCT 10) K L 3.4 (OCT 13) 3.5 (OCT 12) 3.7 (OCT 11) 3.5 (OCT 10) Cl 110 (OCT 13) 109 (OCT 12) 105 (OCT 11) 105 (OCT 10) CO2 L 19 (OCT 13) 22 (OCT 12) 24 (OCT 11) 22 (OCT 10) BUN H 29 (OCT 13) H 31 (OCT 12) H 27 (OCT 11) H 24 (OCT 10) Cr H 3.80 (OCT 13) H 4.00 (OCT 12) H 3.10 (OCT 11) H 2.70 (OCT 10) Glu R 94 (OCT 13) 94 (OCT 12) H 115 (OCT 11) H 136 (OCT 10) Ca L 8.1 (OCT 13) L 8.2 (OCT 12) 9.2 (OCT 11) [...] (OCT 10) . Impression and Plan 1. Chronic kidney disease stage IV, most probably secondary to renal vascular disease versus hypertensive nephrosclerosis, baseline serum creatinine is 2 mg/dl 2. uncontrolled hypertension: ? Renovascular disease. Will add nifedipine, increase carvedilol and discontinue IV fluids after the current bag is in 3. Severe mitral regurgitation, status post repair in August of this year, complicated with hemolytic anemia, patient will be scheduled for mitral valve replacement next week. 4. Acute kidney injury most probably secondary to volume depletion and possibly acute tubular necrosis from severe anemia, serum creatinine seems to be a little better. Will continue current bag of IV fluids and reassess renal functions and volume status in a.m.. 5. Severe hemolytic anemia, most probably secondary to mitral valve disease, hematology are following documented in this encounter Plan of Treatment Upcoming Encounters Date Type Department Care Team (Late st Contact Info) Description 04/12/2025 7:30 AM EDT Hospital Encounter [facility] Operating Room 1 [place] [address] Bill Graham MD [address] [place] [address] [address] [place], [place] [id number] 04/12/2025 7:30 AM EDT Anesthesia Event [facility] Operating Room 1 [place] [address] Lucio Szymanski MD [address] [place] [address] 04/12/2025 7:30 AM EDT - 04/12/2025 8:55 AM EDT Surgery [facility] Operating Room 1 [place] [address] Bill Graham MD [address] [facility] [address] [place], [place] [id number] (LAPAROSCOPIC PERITONEAL DIALYSIS CATHETER INSERTION) Scheduled Procedures Name Priority Associated Diagnoses Date/Ti me LAPAROSCOPY, WITH PERITONEAL DIALYSIS CATHETER INSERTION Chronic kidney disease, stage V (HCC) 04/12/2025 7:30 AM EDT documented as of this encounter Visit Diagnoses Not on filedocumented in this encounter Care Teams Handbag Finisher Relationship Specialty Start Date End Date Félix Monroe, APPRAISER ART [address] [facility] [address] [place], [place] [id number] PCP - General Nurse Practitioner 08/25/22 documented as of this encounter
--- OUTSIDE RECORDS SUMMARY | 2025-04-11 11:02 | XMS_ITS | Encounter Summary ---
Author Organization [employer] ([place], [place], [place], [place]) Address [address] [address] Care Team Providers Care Client Support Associate Name Role Phone Félix Monroe MICHAEL Primary Care Provider [phone] Encounter Details Date Type Department Care Team (Late st Contact Info) Description 10/12/2019 Transcribed Document [facility] [place] [address] [place] [address] ProviderMaria Esther MD [address] [place], [place] [address] Social History Tobacco Use Types Packs/Day Years [...] Consult Phone Call Documentation Entered On: 10/12/2019 9:00 EDT Performed On: 10/12/2019 9:00 EDT by Bernice Louis, Cosmetic Account Coordinator-Health Unit Coord Phone Call for Consults Consult Phone Call/Page Attempt : First call Consult Reason : Spoke to Lesa Dominguez assembler semiconductor and aware Consult, Additional Information : assembler semiconductor aware Bernice Louis, Cosmetic Account Coordinator-Health Unit Coord - 10/12/2019 8:59 EDT documented in this encounter Plan of Treatment Upcoming Encounters Date Type Department Care Team (Late st Contact Info) Description 04/12/2025 7:30 AM EDT Hospital Encounter [facility] Operating Room 1 [place] [address] Bill Graham MD [address] [facility] [address] [place] [address] 04/12/2025 7:30 AM EDT Anesthesia Event [facility] Operating Room 1 [place] [address] Lucio Szymanski MD [address] [place] [address] 04/12/2025 7:30 AM EDT - 04/12/2025 8:55 AM EDT Surgery [facility] Operating Room 1 [place] [address] [place] [address] [place] [address] [address] [place] [address] (LAPAROSCOPIC PERITONEAL DIALYSIS CATHETER INSERTION) Scheduled Procedures Name Priority Associated Diagnoses Date/Ti me LAPAROSCOPY, WITH PERITONEAL DIALYSIS CATHETER INSERTION Chronic kidney disease, stage V (HCC) 04/12/2025 7:30 AM EDT documented as of this encounter Visit Diagnoses Not on filedocumented in this encounter Care Teams Client Support Associate Relationship Specialty Start Date End Date Félix Monroe, PREFINISH OPERATOR [address] [facility] [address] [place] [address] PCP - General Nurse Practitioner 08/25/22 documented as of this encounter
--- OUTSIDE RECORDS SUMMARY | 2025-04-11 11:02 | XMS_ITS | Encounter Summary ---
Author Organization [employer] ([place], [place], [place], [place]) Address [address] [address] Care Team Providers Care Orthopaedic Surgeon Name Role Phone Félix Monroe APRN Primary Care Provider [phone] Encounter Details Date Type Department Care Team (Late st Contact Info) Description 10/12/2019 Transcribed Document [facility] [place] [address] [place] [address] ProviderMaria Esther MD [address] [place] [address] Social History Tobacco Use Types Packs/Day Years Used Date Smoking Tobacco: Never Assessed Comments Unknown Sex and Gender Information Value Date Recorded Sex Assigned at Not on file Legal Sex Female 6:53 PM CDT Gender Identity Not on file Sexual Orientation Not on file documented as of this encounter Miscellaneous Notes * Cerner Conversion Note - Maria Esther Reyes MD - 10/12/2019 10:36 AM CDT UM Authorization Entered On: 10/12/2019 10:37 EDT Performed On: 10/12/2019 10:36 EDT by JESSICA GUIDO RN-Utilization Review Primary Insurance Authorization Authorization and Policy Numbers : Insurance 1 Health Plan: [place] Policy Number: [id number] Authorization Number: Insurance Primary Name : [place] Policy Number: [id number] Authorization Status-Primary : Awaiting callback Reference Number-Primary : [id number] Authorized Service Begin Date-Primary : 10/11/2019 EDT Authorization Comments-Primary : submitted on availity for IP auth w/ clinicals attached Historical Authorization Comments-Primary : No Authorization Comments Found JESSICA GUIDO, RN-Utilization Review - 10/12/2019 10:36 EDT Electronically signed by Evaristo Loyola Conversion Network Security Administrator Cerner at 10/28/2022 7:19 PM CDT documented in this encounter Plan of Treatment Upcoming Encounters Date Type Department Care Team (Late st Contact Info) Description 04/12/2025 7:30 AM EDT Hospital Encounter [facility] Operating Room [address] [place] [address] [place] [address] [place] [address] [address] [place] [address] 04/12/2025 7:30 AM EDT Anesthesia Event [facility] Operating Room [address] [place] [address] Lucio Szymanski MD [address] [place] [address] 04/12/2025 7:30 AM EDT - 04/12/2025 8:55 AM EDT Surgery [facility] Operating Room [address] [place] [address] Bill Graham MD [address] [place] [address] [place] [address] (LAPAROSCOPIC PERITONEAL DIALYSIS CATHETER INSERTION) Scheduled Procedures Name Priority Associated Diagnoses Date/Ti me LAPAROSCOPY, WITH PERITONEAL DIALYSIS CATHETER INSERTION Chronic kidney disease, stage V (HCC) 04/12/2025 7:30 AM EDT documented as of this encounter Visit Diagnoses Not on filedocumented in this encounter Care Teams Orthopaedic Surgeon Relationship Specialty Start Date End Date Félix Monroe, DIAL MAKER [address] [facility] [address] [place], [place] [phone] PCP - General Nurse Practitioner 08/25/22 documented as of this encounter
--- OUTSIDE RECORDS SUMMARY | 2025-04-11 11:02 | XMS_ITS | Encounter Summary ---
Author Organization [employer] ([place], [place], [place], [place]) Address [address] [address] Care Team Providers Care Manager Academic Name Role Phone Félix Monroe APRN Primary Care Provider [phone] Encounter Details Date Type Department Care Team (Late st Contact Info) Description 10/14/2019 Transcribed Document [facility] [place] Family Medicine [address] [place] [address] ProviderMaria Esther MD [address] [place] [address] Social History Tobacco Use Types Packs/Day Years Used Date Smoking Tobacco: Never Assessed Comments Unknown Sex and Gender Information Value Date Recorded Sex Assigned at Not on file Legal Sex Female 6:53 PM CDT Gender Identity Not on file Sexual Orientation Not on file documented as of this encounter Miscellaneous Notes * Cerner Conversion Note - Historical ProviderMD - 10/14/2019 5:00 PM CDT Chart Check - Review Order Profile Entered On: 10/14/2019 17:15 EDT Performed On: 10/14/2019 17:00 EDT by DAYSI PACEHCO, RN Chart Check All Active Orders Reviewed : Yes DAYSI PACHECO, RN - 10/14/2019 17:15 EDT Electronically signed by Evaristo Loyola Conversion Boil Off Machine Operator Cloth Cerner at 10/28/2022 7:08 PM CDT documented in this encounter Plan of Treatment Upcoming Encounters Date Type Department Care Team (Late st Contact Info) Description 04/12/2025 7:30 AM EDT Hospital Encounter [facility] Operating Room 1 [place] [address] Bill Graham MD [address] [facility] [address] [place] [address] 04/12/2025 7:30 AM EDT Anesthesia Event [facility] Operating Room 1 [place] [address] Lucio Szymanski MD [address] [place] [address] 04/12/2025 7:30 AM EDT - 04/12/2025 8:[address] [facility] Operating Room 1 [place] [address] Bill Graham MD [address] [facility] [address] [place] [address] (LAPAROSCOPIC PERITONEAL DIALYSIS CATHETER INSERTION) Scheduled Procedures Name Priority Associated Diagnoses Date/Ti me LAPAROSCOPY, WITH PERITONEAL DIALYSIS CATHETER INSERTION Chronic kidney disease, stage V (HCC) 04/12/2025 7:30 AM EDT documented as of this encounter Visit Diagnoses Not on filedocumented in this encounter Care Teams Manager Academic Relationship Specialty Start Date End Date Félix Monroe, TALEND ETL DEVELOPER [address] [facility] [address] [place] [address] PCP - General Nurse Practitioner 08/25/22 documented as of this encounter
--- OUTSIDE RECORDS SUMMARY | 2025-04-11 11:03 | XMS_ITS | Encounter Summary ---
Author Organization [employer] ([place], [place], [place], [place]) Address [address] [place] [address] Care Team Providers Care Shoe Repairer Name Role Phone Félix Monroe APRN Primary Care Provider [phone] Encounter Details Date Type Department Care Team (Late st Contact Info) Description 10/12/[address] [facility] [place] Family Medicine [address] [place] [address] ProviderMaria Esther MD [address] [place], [place] [id number] Social History Tobacco Use Types Packs/Day Years Used Date Smoking Tobacco: Never Assessed Comments Unknown Sex and Gender Information Value Date Recorded Sex Assigned at Not on file Legal Sex Female 6:53 PM CDT Gender Identity Not on file Sexual Orientation Not on file documented as of this encounter Miscellaneous Notes * Cerner Conversion Note - Maria Esther ProviderMD - 10/12/2019 9:00 AM CDT Consult Phone Call Documentation Entered On: 10/12/2019 8:32 EDT Performed On: 10/12/2019 9:00 EDT by Zahra Tovar, Entry WriterHealth Unit Coord Phone Call for Consults Consult Phone Call/Page Attempt : Other: Verbal consult Consult Reason : Possible MVR repair Consult, Additional Information : Daily ANDERSON notified of consult in person Zahra Tovar, Entry Writer-Health Unit Coord - 10/12/2019 8:31 EDT documented in this encounter Plan of Treatment Upcoming Encounters Date Type Department Care Team (Late st Contact Info) Description 04/12/2025 7:30 AM EDT Hospital Encounter [facility] Operating Room 1 [place] [address] [place] [address] [place] [address] [address] [place] [address] 04/12/2025 7:30 AM EDT Anesthesia Event [facility] Operating Room 1 [place] [address] Lucio Szymanski MD [address] [place] [address] 04/12/2025 7:30 AM EDT - 04/12/2025 8:55 AM EDT Surgery [facility] Operating Room 1 [place] [address] Bill Graham MD [address] [place] [address] [place] [address] (LAPAROSCOPIC PERITONEAL DIALYSIS CATHETER INSERTION) Scheduled Procedures Name Priority Associated Diagnoses Date/Ti me LAPAROSCOPY, WITH PERITONEAL DIALYSIS CATHETER INSERTION Chronic kidney disease, stage V (HCC) 04/12/2025 7:30 AM EDT documented as of this encounter Visit Diagnoses Not on filedocumented in this encounter Care Teams Shoe Repairer Relationship Specialty Start Date End Date Félix Monroe, SALES FLOOR MANAGER [address] [facility] [address] [place] [address] PCP - General Nurse Practitioner 08/25/22 documented as of this encounter
--- OUTSIDE RECORDS SUMMARY | 2025-04-11 11:03 | XMS_ITS | Encounter Summary ---
Author Organization [employer] ([place], [place], [place], [place]) Address [address] [place] [address] Care Team Providers Care Head Mva Reactor Operator Name Role Phone Monroe Félix Francisco RODRIGUEZ Primary Care Provider [phone] Encounter Details Date Type Department Care Team (Late st Contact Info) Description 10/11/2019 Transcribed Document [facility] [address] [place] [address] ProviderMaria Esther MD [address], [place] [address] Social History Tobacco Use Types Packs/Day Years Used Date Smoking Tobacco: Never Assessed Comments Unknown Sex and Gender Information Value Date Recorded Sex Assigned at Not on file Legal Sex Female 6:53 PM CDT Gender Identity Not on file Sexual Orientation Not on file documented as of this encounter Miscellaneous Notes * Cerner Conversion Note - Maria Esther ProviderMD - 10/11/2019 3:34 PM CDT Admission History, Adult Entered On: 10/11/2019 15:56 EDT Performed On: 10/11/2019 15:34 EDT by Kinga Talley RN Advance Directive Patient has Advance Directive *Q : Yes, Advance Directive not with the patient Advance Directive Type : Living will Copy Advance Directive Verified/on Chart : No Kinga Talley RN - 10/11/2019 15:48 EDT Anesthesia/Transfusion History Family History of Anesthesia Reaction : No prior transfusion(s) Transfusion History : Prior anesthesia without reaction Family History of Anesthesia Reaction : None Kinga Talley RN - 10/11/2019 15:48 EDT Functional Assessment Living Situation : Home Patient Lives With : Spouse Current Home Treatments : None Kinga Talley RN - 10/11/2019 15:48 EDT General Info Legal Guardian : No Support Person/Patient Accounting Teacher : Yes Support Person/Pt Rep Name : Bola Stiles, spouse Contact Password : MERI Support Person/Pt Rep Contact Information : [phone] cell Want Family/Rep/Phys Notified of Admit : No Emergency Contact #1 : Bola Emergency Contact #1 Phone Number : [phone] Emergency Contact #1 Relationship : spouse Emergency Contact #2 : . Emergency Contact #2 Phone Number : . Emergency Contact #2 Relationship : . Primary Language : Peruvian Preferred Communication Mode : Verbal Communication Barrier : None Kinga Talley RN - 10/11/2019 15:48 EDT Fall Risk Scales ABCs Fall Injury Risk Identification : Coagulation ABC Fall Injury Risk : Moderate to high injury risk ECHEVARRIA Hx Falls Immediate/Within 3 Months : No Echevarria Secondary Diagnosis : Yes ECHEVARRIA Use of Ambulatory Aid : Bed rest/Nurse assist ECHEVARRIA IV Therapy or IV Access : Yes Sim Gait/Transferring : Normal, bedrest, immobile Echevarria Mental Status : Oriented to own ability Echevarria Fall Risk Score : 35 ECHEVARRIA Fall Scale Risk Level : 25-45 Medium Risk [place] Fall Interventions : Adequate lighting, Bed in low position, Call device within reach, Frequent orientation to call device, Frequent orientation to surroundings, Hourly comfort/safety rounds, Non-slip footwear, Personal items within reach, Reinforced to call for assistance before getting out of bed, Room free of clutter/spills, Upper side-rails up, Wheels locked, Wires/Cords secured Fall Moderate to High Risk Interventions : Patient room close to nurses station Fall Risk Scale Calc Temp : 0 Kinga Talley RN - 10/11/2019 15:48 EDT Health Histories Smoking Status : Cigars or pipes daily within last 30 days, Former smoker, quit more than 30 days ago Smokeless Tobacco Status : Never Desires Tobacco Cessation Medication : Yes Kinga Talley RN - 10/11/2019 15:48 EDT Social History (As Of: 10/11/2019 15:56:10 EDT) Tobacco: 10 or more cigarettes (1/2 pack or more)/day in last 30 days Smoking Status. Never Smokeless Tobacco Status. (Last Updated: 2019 19:29:19 EST by HINA SALGADO RN) Years of Use: 30. Second Hand Smoke Exposure: Yes. (Last Updated: 2019 19:30:20 EST by HINA SALGADO RN) 10 or more cigarettes (1/2 pack or more)/day in last 30 days Smoking Status. Smokeless tobacco user within last 30 days Smokeless Tobacco Status. Years of Use: 30. Packs/Tins Daily: 2. Last Used: . (Last Updated: 08/28/2019 15:06:05 EST by CARLOS ALBERTO WHITAKER RN) Alcohol: Alcohol Use History Yes. Date/Time of Last Drink: once a year. (Last Updated: 2019 19:30:20 EST by HINA SALGADO RN) Substance Abuse: Drug Use Hx: Yes. Use in Last 12 Months: Yes. Marijuana/Hashish Recreational Drug Type. Frequency: Daily. Years of Use: 30. Drug Route: Inhaled. (Last Updated: 08/28/2019 14:22:57 EST by CARLOS ALBERTO WHITAKER RN) Height and Weight, Clinical Dosing Weight, Kilograms : 57.2 kg(Converted to: 126 lb 2 oz) Clinical Dosing Weight : 57.2 kg Body Surface Area (BSA) : 1.64 m2 Body Mass Index : 20.4 kg/m2 Kinga Talley RN - 10/11/2019 16:15 EDT Height Source : Chart Height Entry Format : [place] Height, Feet : 5 ft(Converted to: 152 cm, 60 Inch) Height, Inches : 6 Inch(Converted to: 0 ft 6 Inch, 15.24 cm) Clinical Height : 167.64 cm Weight Source : Bed scale Weight Entry Format : Metric, kilograms [place] Body Weight : 59 kg Kinga Talley RN - 10/11/2019 15:48 EDT Infectious Disease History COVID19 Screening : No Experiencing Infectious Disease Symptoms : Weakness/Fatigue, Bleeding, unexplained Physical contact outside [place] in the last 30 days : No Infectious Disease History : None Tuberculosis Symptoms : None Kinga Talley RN - 10/11/2019 15:48 EDT Influenza Vaccine Asmt, Adult Previous Vaccines from Immunization Schedule : Previous Vaccines and Immunizations influenza virus vaccine, inactivated: 0.5 mL (09/04/19 11:32:00) Influenza Immunization, Current Season : Yes Kinga Talley RN - 10/11/2019 15:48 EDT Pneumococcal Vaccine Previous Vaccines from Immunization Schedule : Previous Vaccines and Immunizations influenza virus vaccine, inactivated: 0.5 mL (09/04/19 11:32:00) Pneumonia Immunization Received : No Pneumococcal Risk Assessment < Age 65 : None Kinga Talley RN - 10/11/2019 15:48 EDT Nutrition History Eating Poorly Due to Decreased Appetite : No Unplanned Weight Loss in Past 3-6 Months : No Malnutrition Screening Tool Total(mal) : 0 Malnutrition Screening Tool Risk Level : Patient not at risk Kinga Talley RN - 10/11/2019 16:15 EDT [place] Suicide Severity Rating Scale (C-SSRS) CSSRS Past Month Wish to be : No CSSRS Past Month Suicidal Thoughts : No CSSRS Lifetime Suicide Behavior : No Suicide Severity Rating Score : 0 Suicide Severity Rating : No Additional Care Required at this time Kinga Talley RN - 10/11/2019 16:15 EDT Psychosocial History Currently in Unsafe Situation : No Kinga Talley RN - 10/11/2019 16:15 EDT Sleep Apnea Risk Assmt Hx of Obstructive Sleep Apnea Diagnosis : No Snore Loudly : No Tired, Fatigued, or Sleepy During Day : Yes Observed Stopping Breathing During Sleep : No Have/Are Being Treated for Hypertension : Yes BMI Greater Than 35 kg/m2 : No Age over 50 Years Old : No Neck Circumference Greater Than 40 cm : No Gender Male : No STOP-BANG Sleep Apnea Risk Level Score : 2 Kinga Talley RN - 10/11/2019 16:15 EDT Valuables and Belongings Valuables and Belongings : Clothing, Personal devices, Personal items Clothing : Common streetwear Clothing Disposition : With family Personal Device Disposition : With family Personal Devices : Dentures, upper, Dentures, lower Personal Items : Purse Personal Items Disposition : With family Kinga Talley RN - 10/11/2019 16:15 EDT documented in this encounter Plan of Treatment Upcoming Encounters Date Type Department Care Team (Late st Contact Info) Description 04/12/2025 7:30 AM EDT Hospital Encounter [facility] Operating Room 1 [place] [address] Bill Graham MD [address] [facility] [address] [place] [address] 04/12/2025 7:30 AM EDT Anesthesia Event [facility] Operating Room 1 [place] [address] Lucio Szymanski MD [address] [place] [address] 04/12/2025 7:30 AM EDT - 04/12/2025 8:55 AM EDT Surgery [facility] Operating Room 1 [place] [address] Bill Graham MD [address] [facility] [address] [place] [address] (LAPAROSCOPIC PERITONEAL DIALYSIS CATHETER INSERTION) Scheduled Procedures Name Priority Associated Diagnoses Date/Ti me LAPAROSCOPY, WITH PERITONEAL DIALYSIS CATHETER INSERTION Chronic kidney disease, stage V (HCC) 04/12/2025 7:30 AM EDT documented as of this encounter Visit Diagnoses Not on filedocumented in this encounter Care Teams Head Mva Reactor Operator Relationship Specialty Start Date End Date Félix Monroe, SYRUP MIXER [address] [facility] [address] [place] [address] PCP - General Nurse Practitioner 08/25/22 documented as of this encounter
--- OUTSIDE RECORDS SUMMARY | 2025-04-11 11:03 | XMS_ITS | Encounter Summary ---
Author Organization [employer] ([place], [place], [place], [place]) Address [address] [address] Care Team Providers Care Latin Teacher Name Role Phone Félix Monroe APRN Primary Care Provider [phone] Encounter Details Date Type Department Care Team (Late st Contact Info) Description 10/12/2019 Transcribed Document [facility] Radiology 1 [place] [address] Emanuel Pratt MD [address] [place] [address] Social History Tobacco Use Types Packs/Day Years Used Date Smoking Tobacco: Never Assessed Comments Unknown Sex and Gender Information Value Date Recorded Sex Assigned at Not on file Legal Sex Female 6:53 PM CDT Gender Identity Not on file Sexual Orientation Not on file documented as of this encounter Miscellaneous Notes * Cerner Conversion Note - Emanuel Pratt MD - 10/12/2019 6:55 AM EDT Patient: CORRIE SMITH Age: 49 years Sex: Female : 1970 Associated Diagnoses: None Author: EMANUEL PRATT MD-CAR Basic Information PCP: WINSTON GREEN MD-INT Industrial Gas Servicer Helper: None Subjective NAD, no complaints. Awaiting RIA. Patient seen and examined at the bedside. Awake alert oriented ??3 not dyspneic not in pain. Patient looks jaundiced. Discussed with her the plan for transesophageal echocardiogram and the patient agreed. Health Status Current medications: (Selected) Inpatient Medications [...] 1 mg, Oral, At Bedtime, Home Medications (8) Active acetaminophen-HYDROcodone 325 mg-5 mg [...] 17.2 mg = 2 Tab, Oral, BID Problem list: Active Problems (15) At risk [...] Intake and Output 24 hour intake: Total 910 ml 24 hour output: Total 350 ml VS/Measurements Vitals Signs (last 24 hrs) Last Charted Minimum Maximum Temp 98.8 (OCT 11 04:00) 98.8 (OCT 11 04:00) 98.6 (OCT 10 15:45) Apical HR 93 (OCT 10 16:20) 93 (OCT 10 16:20) 93 (OCT 10 16:20) Mon HR 86 (OCT 11 05:00) 86 (OCT 11 05:00) 103 (OCT 10 17:15) Resp Rate L 13 (OCT 11 05:00) L 13 (OCT 11 05:00) H 52 (OCT 10 17:45) SBP 132 (OCT 11 05:00) 129 (OCT 10 18:30) H 160 (OCT 11 03:00) DBP 69 (OCT 11 05:00) 69 (OCT 10 18:45) H 91 (OCT 10 15:45) MAP 93 (OCT 11 05:00) 92 (OCT 10 18:45) 115 (OCT 11 03:00) SpO2 99 (OCT 11 05:00) 98 (OCT 10 15:45) 100 (OCT 10 [...] of motion, Normal strength. Integumentary: Warm, Dry, Plainedge. Neurologic: Alert, Oriented. Psychiatric: Cooperative, Appropriate mood & affect. Results Review OCT 11 03:44 137 105 H 27 / H 115 3.7 24 H 3.10 \ Cardiac Markers (Current Encounter/Past 24 Hours) ProBNP 69420 pg/mL HI 10/12/2019 04:25 Radiology Results (Last 48 hours) [id number] -- 10/11/2019 15:38 CT Abdomen Pelvis WO (10/11/2019 20:45) Result: [...] abnormality.IMPRESSION: No acute abnormality. Impression and Plan IMPRESSION: Marked Anemia and Fatigue in setting of hematuria s/p recent MV Annuloplasty 08/29/2019. Stable. HTN Urgency at OSH (improved). Mild Tachycardia low 100s. Hgb 5 at OSH improved to 9 overnight s/p 2 units PRBC Mild Troponin elevation 0.1 x 4 EKG: sinus tach 100, PAC's, prolonged QTc 552 EF 50%, abnormal diastolic function by echo 07/21/2019 VHD s/p MV Annuloplasty 08/29/2019 (Echo at OSH in chart; disc in chart, no report found) Prolonged QTc 552 CKD Cr 2.10 HTN Urgency Improved on Cardene gtt HLD Elevated LFT AST 124 Hx of TIA Smoker PLAN; 10/12/2019 Peripheral smear for schistocytes. RIA later [...] Encounter [facility] Operating Room 1 [place] [address] [place] [address] [place] [address] [address] 04/12/2025 7:30 AM EDT Anesthesia Event [facility] Operating Room 1 [place] [address] Lucio Szymanski MD [address] [place] [address] 04/12/2025 7:30 AM EDT - 04/12/2025 8:55 AM EDT Surgery [facility] Operating Room 1 [place] [address] Bill Graham MD [address] [place] [address] (LAPAROSCOPIC PERITONEAL DIALYSIS CATHETER INSERTION) Scheduled Procedures Name Priority Associated Diagnoses Date/Ti me LAPAROSCOPY, WITH PERITONEAL DIALYSIS CATHETER INSERTION Chronic kidney disease, stage V (HCC) 04/12/2025 7:30 AM EDT documented as of this encounter Visit Diagnoses Not on filedocumented in this encounter Care Teams Latin Teacher Relationship Specialty Start Date End Date Félix Monroe, LOSS CONTROL REPRESENTATIVE [address] [facility] [address] [place] [address] PCP - General Nurse Practitioner 08/25/22 documented as of this encounter
--- OUTSIDE RECORDS SUMMARY | 2025-04-11 11:03 | XMS_ITS | Encounter Summary ---
Author Organization [employer] ([place], [place], [place], [place]) Address [address] [address] Care Team Providers Care Agronomy Instructor Name Role Phone Fer Félix Singh MICHAEL Primary Care Provider Encounter Details Date Type Department Care Team (Late st Contact Info) Description 09/04/2019 Transcribed Document [facility] Family Medicine [address] [place] [address] ProviderMaria Esther MD [address] [place] [address] Social History Tobacco Use Types Packs/Day Years Used Date Smoking Tobacco: Never Assessed Comments Unknown Sex and Gender Information Value Date Recorded Sex Assigned at Not on file Legal Sex Female 6:53 PM CDT Gender Identity Not on file Sexual Orientation Not on file documented as of this encounter Miscellaneous Notes * Cerner Conversion Note - Historical ProviderMD - 09/04/2019 2:00 AM DRAFTER APPRENTICE Metal Punch Press Operator Details Entered On: 09/04/2019 2:59 EST Performed On: 09/04/2019 2:00 EST by Latia Gonzalez RN Order Details Transport Mode Order Detail : Wheelchair Isolation Precautions Order Detail : Standard Precautions Order Detail : 0 IV Order Detail : 1 Oxygen Order Detail : 0 Nurse Collect Order Detail : 0 Lift/Transfer : Independent Central Line Order Detail : No Room Service : Appropriate Arterial Line : No Latia Gonzalez RN - 09/04/2019 2:59 EST Electronically signed by Evaristo Loyola Conversion Assisted Living Care Manager Cerner at 10/28/2022 7:23 PM CDT documented in this encounter Plan of Treatment Upcoming Encounters Date Type Department Care Team (Late st Contact Info) Description 04/12/2025 7:30 AM EDT Hospital Encounter [facility] Operating Room 1 [place] [address] Bill Graham MD [address] [facility] [address] [place] [address] 04/12/2025 7:30 AM EDT Anesthesia Event [facility] Operating Room 1 [place] [address] Lcuio Szymanski MD [address] [place] [address] 04/12/2025 7:30 AM EDT - 04/12/2025 8:55 AM EDT Surgery [facility] Operating Room 1 [place] [address] [place] [address] [place] [address] [address] [place] [address] (LAPAROSCOPIC PERITONEAL DIALYSIS CATHETER INSERTION) Scheduled Procedures Name Priority Associated Diagnoses Date/Ti me LAPAROSCOPY, WITH PERITONEAL DIALYSIS CATHETER INSERTION Chronic kidney disease, stage V (HCC) 04/12/2025 7:30 AM EDT documented as of this encounter Visit Diagnoses Not on filedocumented in this encounter Care Teams Agronomy Instructor Relationship Specialty Start Date End Date Félix Monroe, CHOPPED STRAND OPERATOR [address] [facility] [address] [place] [address] PCP - General Nurse Practitioner 08/25/22 documented as of this encounter
--- OUTSIDE RECORDS SUMMARY | 2025-04-11 11:03 | XMS_ITS | Encounter Summary ---
Author Organization [employer] ([place], [place], [place], [place]) Address [address] [address] Care Team Providers Care Wastewater Treatment Plant Attendant Name Role Phone Monroe Félix Francisco RODRIGUEZ Primary Care Provider [phone] Encounter Details Date Type Department Care Team (Late st Contact Info) Description 10/12/2019 Transcribed Document [facility] [place] [facility] [place] [address] ProviderMaria Esther MD [address] [place] [address] Social History Tobacco Use Types Packs/Day Years Used Date Smoking Tobacco: Never Assessed Comments Unknown Sex and Gender Information Value Date Recorded Sex Assigned at Not on file Legal Sex Female 6:53 PM CDT Gender Identity Not on file Sexual Orientation Not on file documented as of this encounter Miscellaneous Notes * Cerner Conversion Note - Maria Esther Reyes MD - 10/12/2019 7:51 AM CDT DATE OF CONSULTATION: REASON FOR CONSULTATION: Anemia. CONSULTING PHYSICIAN: Dr. Martínez. HISTORY: Ms. Stiles is a young female from [facility]. She presented to the hospital because of significant shortness of breath. She had some dark urine. She was noted to have a hemoglobin of 6. She had a very high LDH there. She was transfused two units of packed red blood cells and transferred here because of recent cardiac surgery. She states that she has never seen a manager vehicle before. She has never had a blood transfusion. She has never been told she had anemia before. She feels better now since the transfusion. She has had no left upper quadrant fullness or pain, sweats or fevers, new weight loss, or other additional concerns. ALLERGIES: She is intolerant to codeine. MEDICATIONS: Her medications that she is on right now she is on, 1. Amlodipine 5 mg daily. 2. Carvedilol 12.5 mg twice a day. 3. Doxycycline intravenously at this point. 4. Protonix 40 mg daily. 5. Ropinirole 1 mg at bedtime. 6. She has also been placed on Zosyn for unknown reasons. PAST MEDICAL HISTORY: Significant for bilateral knee surgery. She had anterior cruciate ligament repair on the one side and arthroscopy on the other. She has had a total abdominal hysterectomy for prolapse, has one ovary remaining. The patient has had a mitral valve repair that was done on August 29 and apparently that went without complication. She has had additional medical problems including obesity and underwent a lap band procedure 12 years ago and has lost a considerable amount of weight. She has history of hypertension. She has had apparently congestive heart failure, restless legs syndrome, stage IV chronic renal disease, and she has had a history apparently of a transient ischemic attack. She has had a onr-BM-dfnsonua myocardial infarction in the past. Apparently history of sleep apnea. FAMILY HISTORY: Her father five years ago of sepsis. Mother is living. She has siblings in good health. One with kidney disease, one with heart disease her brothers. SOCIAL HISTORY: She has been for 26 years. She has three adult children. She has five grandchildren. She has smoked until August of this year, so she has approximately a 35 pack-year smoking history. 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 She does not drink alcohol. REVIEW OF SYSTEMS: A 14-point review is otherwise unremarkable. PHYSICAL EXAMINATION: GENERAL: Today demonstrates a pleasant young female, who appears about her stated age. VITAL SIGNS: Her blood pressure is 143/80, her heart rate is 92, respiratory rate 13. Her oxygen saturation on room air is 100%. HEENT: Normocephalic head. Eyes react to light and accommodation. Nares patent. Oropharynx, she is dentulous. NECK: Supple with no cervical, supraclavicular, or axillary adenopathy. LUNGS: Clear anteriorly. She has a regular heart rhythm and rate. She does have a slight murmur. ABDOMEN: With no splenomegaly or abdominal masses. You can feel her lap band apparatus in the right upper quadrant. EXTREMITIES: Without edema. MUSCULOSKELETAL: Without bone pain. NEUROLOGIC: Without deficits. DIAGNOSTIC STUDIES: LABORATORY RESULTS: Her creatinine today is 3.1 and she has elevated globulin at 3.7. Total bilirubin is 1.6 and 1.3 of that is indirect. Liver function tests show slight elevation of AST. Troponin of 0.054, which is elevated. Pro-BNP is 18,281, of course when she arrived. She had already been transfused. Her hemoglobin was 10, white count 13, platelet count 178,000. Her hemoglobin today is 8.4, MCV of 92. There has been no differential done. Coagulation studies are normal. She does have significant proteinuria in her urine. She also has some blood in her urine on dipstick. Iron studies have been done and she has a normal iron saturation. She had a LDH done that was super high at 2647. Iron saturation was 22%, which is normal. IMAGING STUDIES: She had an EGD at the outside hospital, which was nondiagnostic. She has had a CT of the abdomen, which also demonstrated no pathologic abnormalities. IMPRESSION: The patient with anemia, possible causes would include hemolysis from cardiac valvular disease that is not compensated because of renal insufficiency, less likely would be an autoimmune hemolysis from unknown causes. PLAN: My plan at this point initially is to do some laboratory studies as far as look at her peripheral smear, also check a reticulocyte count, erythropoietin level, folate, B12, and we will not recommend a bone marrow biopsy at this time and we may have an explanation for this anemia without that. I have discussed this with Ms. Stiles, answered her questions. /[id number] Ronan Bowser MD STP/AQ / STP / MODL /[id number] CC: MD Dr. Susu Interiano MD Yasser Zohary, MD Steve S Lin, MD Electronically signed by Nir [facility] Rama Food And Beverage Controller Cerner at 10/28/2022 7:05 PM CDT documented in this encounter Plan of Treatment Upcoming Encounters Date Type Department Care Team (Late st Contact Info) Description 04/12/2025 7:30 AM EDT Hospital Encounter [facility] Operating Room [address] [place] [address] Bill Graham MD [address] [facility] [address] [place] [address] 04/12/2025 7:30 AM EDT Anesthesia Event [facility] Operating Room [address] [place] [address] Lucio Szymanski MD [address] [place] [address] 04/12/2025 7:30 AM EDT - 04/12/2025 8:55 AM EDT Surgery [facility] Operating Room [address] [place] [address] Bill Graham MD [address] [place] [address] [address] [place] [address] (LAPAROSCOPIC PERITONEAL DIALYSIS CATHETER INSERTION) Scheduled Procedures Name Priority Associated Diagnoses Date/Ti me LAPAROSCOPY, WITH PERITONEAL DIALYSIS CATHETER INSERTION Chronic kidney disease, stage V (HCC) 04/12/2025 7:30 AM EDT documented as of this encounter Visit Diagnoses Not on filedocumented in this encounter Care Teams Wastewater Treatment Plant Attendant Relationship Specialty Start Date End Date Félix Monroe, WHEEL PRESSER [address] [facility] [address] [place] [address] PCP - General Nurse Practitioner 08/25/22 documented as of this encounter
--- OUTSIDE RECORDS SUMMARY | 2025-04-11 11:03 | XMS_ITS | Encounter Summary ---
Author Organization [employer] ([place], [place], [place], [place]) Address [address] [address] Care Team Providers Care Straight Cutter Machine Name Role Phone Fer Félix Francisco RODRIGUEZ Primary Care Provider [phone] Encounter Details Date Type Department Care Team (Late st Contact Info) Description 10/17/2019 Transcribed Document [facility] [place] [facility] [place] [address] ProviderMaria Esther MD [address] [place] [address] Social History Tobacco Use Types Packs/Day Years Used Date Smoking Tobacco: Never Assessed Comments Unknown Sex and Gender Information Value Date Recorded Sex Assigned at Not on file Legal Sex Female 6:53 PM CDT Gender Identity Not on file Sexual Orientation Not on file documented as of this encounter Miscellaneous Notes * Cerner Conversion Note - Maria Esther Reyes MD - 10/17/2019 11:57 AM CDT Patient: CORRIE SMITH Age: 49 years Sex: Female : 1970 Associated Diagnoses: None Author: SHAWANDA LUIS MD-NEP Basic Information Feeling better, had her mitral valve replaced without complications Health Status Allergies: Allergic Reactions (Selected) Severity Not Documented Codeine- Welts, nausea and hives., Allergies (1) Active Reaction codeine Welts Current medications: (Selected) Inpatient Medications Ordered Ativan: 1 mg, IV Push, Q4H, PRN: Agitation Bactroban 2% nasal ointment: 1 Application, Nostrils Both, BID Coumadin: 3 mg, Oral, Daily Dulcolax Laxative: 10 mg, Rectal, 1-Time, PRN: Constipation DuoNeb 0.5 mg-2.5 mg/3 mL inhalation solution: 3 mL, Nebulized Inhalation, RT_Q4H, PRN: Shortness of Breath NIFEdipine: 60 mg, Oral, Daily Normal Saline Flush: 10 mL, IV Push, Q12H Normal Saline Flush: 10 mL, IV Push, Q8H Normal Saline Flush: 10 mL, IV Push, See Comment, PRN: IV Use Normal Saline Flush: 10 mL, IV Push, See Comment, PRN: Other (See Comment) Percocet 5/325 oral tablet: 2 Tab, Oral, Q4H, PRN: Pain (Moderate 4-6) Phenergan: 6.25 mg, IntraVENous, Q6H, PRN: Nausea Procrit: 40,000 Units, SubCutaneous, Weekly Protonix: 40 mg, Oral, Daily Senna S: 1 Tab, Oral, BID Senokot: 17.2 mg, Oral, BID Tylenol: 650 mg, Oral, Q6H, PRN: Pain (Mild 1-3) Xanax: 0.25 mg, Oral, BID, PRN: Anxiety Zofran: 4 mg, IV Push, Q4H, PRN: Nausea albumin human 5% intravenous solution: 25 Gram, 500 mL, IV Piggyback, Q1H, PRN: Hypotension aspirin: 81 mg, Oral, Daily cloNIDine: 0.1 mg, Oral, Q4H, PRN: Hypertension hydrALAZINE: 10 mg, IV Push, Q6H, PRN: Hypertension hydrALAZINE: 25 mg, Oral, TID magnesium sulfate + Sodium Chloride 0.9% intravenous solution 50 mL: 1 Gram, 2 mL, 100 mL/Hr, IV Piggyback, 1-Time, PRN: Other (See Comment) nicotine 21 mg/24 hr transdermal film, extended release: 1 Patch, TransDermal, Daily oxyCODONE: 5 mg, Oral, Q6H, PRN: Pain (Moderate 4-6) potassium chloride 10 mEq/50 mL intravenous solution: 10 mEq, 50 mL, 50 mL/Hr, IV Piggyback, Q1H, PRN: Other (See Comment) rOPINIRole: 1 mg, Oral, At Bedtime Documented [...] At Bedtime, 90 Tab, 0 Refill(s), Medications (29) Active Scheduled: (13) #NaCl 0.9% *FLUSH* inj 10 mL 10 mL, IV Push, Q12H #NaCl 0.9% *FLUSH* inj 10 mL 10 mL, IV Push, Q8H aspirin EC 81 mg tab 81 mg 1 Tab, Oral, Daily epoetin mayra epbx 40,000 units/mL inj 40,000 Units 1 mL, SubCutaneous, Weekly hydrALAZINE 25 mg tab 25 mg 1 Tab, Oral, TID mupirocin 2% nasal oint 1 g 1 Application, Nostrils Both, BID nicotine 21 mg/24 hr patch 1 Patch, TransDermal, Daily NIFEdipine ER 60 mg tab 60 mg 1 Tab, Oral, Daily pantoprazole EC 40 mg tab 40 mg 1 Tab, Oral, Daily rOPINIRole 1 mg tab 1 mg 1 Tab, Oral, At Bedtime senna 8.6 mg tab 17.2 mg 2 Tab, Oral, BID senna/docusate 8.6/50 mg tab 1 Tab, Oral, BID warfarin 3 mg tab 3 mg 1 Tab, Oral, Daily Continuous: (0) PRN: (16) #NaCl 0.9% *FLUSH* inj 10 mL 10 mL, IV Push, See Comment #NaCl 0.9% *FLUSH* inj 10 mL 10 mL, IV Push, See Comment acetaminophen 325 mg tab 650 mg 2 Tab, Oral, Q6H acetaminophen/oxyCODONE 325/5 mg tab 2 Tab, Oral, Q4H albumin human 5% 25 g/500 mL inj 25 Gram 500 mL, IV Piggyback, Q1H albuterol-ipratropium inh 3 mL 3 mL, Nebulized Inhalation, RT_Q4H ALPRAZolam 0.25 mg tab 0.25 mg 1 Tab, Oral, BID bisacodyl 10 mg supp 10 mg 1 Supp, Rectal, 1-Time cloNIDine 0.1 mg tab 0.1 mg 1 Tab, Oral, Q4H hydrALAZINE 20 mg/1 mL inj 10 mg 0.5 mL, IV Push, Q6H LORazepam 2 mg/mL inj 1 mg 0.5 mL, IV Push, Q4H magnesium sulfate 50% + NaCl 0.9% 50 mL 1 Gram 2 mL, IV Piggyback, 1-Time ondansetron 4 mg/2 mL inj 4 mg 2 mL, IV Push, Q4H oxyCODONE 5 mg tab 5 mg 1 Tab, Oral, Q6H potassium chloride 10 mEq 50 mL, IV Piggyback, Q1H promethazine 25 mg/1 mL inj 6.25 mg 0.25 mL, IntraVENous, Q6H Problem list: Medical NSTEMI, initial episode of care / SNOMED CT 5481990554 / Confirmed At risk for sleep apnea / IMO 58258011 / Confirmed CHF, acute on chronic / SNOMED CT 98313029 / Confirmed Class 3 Systolic GERD - Gastro-esophageal reflux disease / SNOMED CT 1908986354 / Confirmed H/O: TIA / SNOMED CT 398066045 / Confirmed History of laparoscopic adjustable gastric banding / SNOMED CT 8892743714 / Confirmed History of obstructive sleep apnea / IMO 86157706 / Confirmed HTN - Hypertension / SNOMED CT 7091630647 / Confirmed Mitral regurgitation / SNOMED CT 35736683 / Confirmed Prolonged QT interval / SNOMED CT 176756870 / Confirmed 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 047654167 / Confirmed Pulmonary edema / SNOMED CT 06419884 / Confirmed Restless legs syndrome / SNOMED CT 41127683 / Confirmed RF - Renal failure, Stage 4 / SNOMED CT 5730906084 / Confirmed Sleep apnea-before weight loss surgery / SNOMED CT 200635346 / Confirmed, Active Problems (16) At risk for sleep apnea CHF, acute on chronic COPD (chronic obstructive pulmonary disease) GERD - Gastro-esophageal reflux disease H/O: TIA History of laparoscopic adjustable gastric banding History of obstructive sleep apnea HTN - Hypertension Mitral regurgitation NSTEMI, initial episode of care Prolonged QT interval Prosthetic mitral valve regurgitation Pulmonary edema Restless legs syndrome RF - Renal failure, Stage 4 Sleep apnea-before weight loss surgery Histories Past Medical History: Active HTN - Hypertension (4914195659) Family History: No family history items have [...] 24 hrs) Last Charted Minimum Maximum Temp 97.6 (OCT 16 06:00) 97.0 (OCT 15 16:00) 98.2 (OCT 15 14:15) Mon HR 89 (OCT 16 10:00) 78 (OCT 15 15:00) 90 (OCT 15 14:15) Resp Rate L 13 (OCT 16 10:00) L 10 (OCT 15 21:30) H 66 (OCT 16 09:00) MAP 63 (OCT 16 10:00) 63 (OCT 16 10:00) 115 (OCT 15 16:00) SpO2 95 (OCT 16 10:00) 95 (OCT 16 10:00) 100 (OCT 15 14:15) General: Alert and oriented, No acute distress. [...] review: Labs (Last four charted values) WBC H 12.8 (OCT 16) H 16.0 (OCT 15) H 16.6 (OCT 15) H 23.2 (OCT 15) HB L 7.8 (OCT 16) L 8.3 (OCT 15) L 8.3 (OCT 15) L 10.3 (OCT 15) HCT L 23.1 (OCT 16) L 24.3 (OCT 15) L 24.5 (OCT 15) L 30.5 (OCT 15) Plt L 116 (OCT 16) L 123 (OCT 15) L 121 (OCT 15) L 125 (OCT 15) Na 138 (OCT 16) 140 (OCT 15) 140 (OCT 15) 140 (OCT 14) K 3.9 (OCT 16) 3.6 (OCT 15) 3.7 (OCT 15) L 3.4 (OCT 15) Cl 107 (OCT 16) 112 (OCT 15) 108 (OCT 15) 111 (OCT 14) CO2 21 (OCT 16) L 20 (OCT 15) 23 (OCT 15) 22 (OCT 14) BUN H 31 (OCT 16) H 27 (OCT 15) H 30 (OCT 15) H 29 (OCT 14) Cr H 3.40 (OCT 16) H 3.61 (OCT 15) H 3.80 (OCT 15) H 3.70 (OCT 14) Glu R H 119 (OCT 16) 106 (OCT 06) 96 (OCT 15) H 112 (OCT 14) Ca L 7.9 (OCT 16) 8.4 (OCT 15) 8.6 (OCT 15) L 8.2 (OCT 14) Lactic 1.2 (OCT 10) PT 11.6 (OCT 16) 12.0 (OCT 15) 11.4 (OCT 14) 11.7 (OCT 12) INR 1.1 (OCT 16) 1.1 (OCT 15) 1.1 (OCT 14) 1.1 (OCT 12) PTT 25.7 (OCT 15) 29.1 (OCT 14) 27.0 (OCT 12) AST H 90 (OCT [...] creatinine is 2 mg/dl 2. uncontrolled hypertension: Blood pressure appears to be better controlled. 3. Severe mitral regurgitation, status post repair in August of this year, complicated with hemolytic anemia, patient is status post successful Explantation of 28 mm CG annuloplasty band and Placement, 35/25 On-X mechanical mitral prosthesis / Salvage and reimplantation of all anterior and posterior chordae. 4. Acute kidney injury most probably secondary to volume depletion and possibly acute tubular necrosis from severe anemia, serum creatinine seems to be a little better. with stable blood pressure and stable hemoglobin renal functions continue improving. 5. Severe hemolytic anemia, most probably secondary to mitral valve disease, hematology are following. Hemoglobin stable Electronically signed by Hilario Loyola Conversion Carbon Paper Machine Operator Cerner at 10/28/2022 7:20 PM CDT documented in this encounter Plan of Treatment Upcoming Encounters Date Type Department Care Team (Late st Contact Info) Description 04/12/2025 7:30 AM EDT Hospital Encounter [facility] Operating Room [address] [place] [address] [place] [address] [place] [address] [address] [place], [place] [id number] 04/12/2025 7:30 AM EDT Anesthesia Event [facility] Operating Room [address] [place] [id number] Lucio Szymanski MD [address] [place] [address] 04/12/2025 7:30 AM EDT - 04/12/2025 8:55 AM EDT Surgery [facility] Operating Room [address] [place] [address] Bill Graham MD [address] [facility] [address] [place], [place] [id number] (LAPAROSCOPIC PERITONEAL DIALYSIS CATHETER INSERTION) Scheduled Procedures Name Priority Associated Diagnoses Date/Ti me LAPAROSCOPY, WITH PERITONEAL DIALYSIS CATHETER INSERTION Chronic kidney disease, stage V (HCC) 04/12/2025 7:30 AM EDT documented as of this encounter Visit Diagnoses Not on filedocumented in this encounter Care Teams Straight Cutter Machine Relationship Specialty Start Date End Date Félix Monroe, BABY FORMULA MIXER [address] [facility] [address] [place] [address] PCP - General Nurse Practitioner 08/25/22 documented as of this encounter
--- OUTSIDE RECORDS SUMMARY | 2025-04-11 11:03 | XMS_ITS | Encounter Summary ---
Author Organization [employer] ([place], [place], [place], [place]) Address [address] [place] [address] Care Team Providers Care Hand Reamer Name Role Phone Félix Monroe APRN Primary Care Provider Encounter Details Date Type Department Care Team (Late st Contact Info) Description 10/16/2019 Transcribed Document [facility] Radiology 1 [place] [address] Provider, cassi Mayo MD Social History Tobacco Use Types Packs/Day Years Used Date Smoking Tobacco: Never Assessed Comments Unknown Sex and Gender Information Value Date Recorded Sex Assigned at Not on file Legal Sex Female 6:53 PM CDT Gender Identity Not on file Sexual Orientation Not on file documented as of this encounter Miscellaneous Notes * Cerner Conversion Note - [facility] Maria Esther Reyes MD - 10/16/2019 8:30 AM EDT [facility] Main OR Preop Summary Primary Physician: ALESHA EMERY MD-CAT Finalized Date/Time: 10/16/19 07:30:30 Pt. Name: LUIS CORRIERamsey WELSH /Sex: 1970 Female Med Rec #: [id number] Physician: ANA BLAS MD-[facility] Financial #: [id number] Pt. Type: I Room/Bed: 313/1 Admit/Disch: 10/11/19 15:38:00 - Institution: [facility] PreOp Case Times Entry 1 In Preop 10/16/19 07:05:00 Ready for Holding n/a Room Patient Ready for 10/16/19 07:19:00 Surgery Patient Out of Preop 10/16/19 07:28:00 Patient Out of n/a Holding Room Last Modified By: CHI Grullon RN 10/16/19 07:30:02 [facility] PreOp Case Times Audit 10/16/19 07:30:02 Hydroelectric Plant Operator: WILSONDL Modifier: WILSONDL <+> 1 Patient Out of Preop 10/16/19 07:25:05 Hydroelectric Plant Operator: CRYSTAL Modifier: WILSONDL <+> 1 Patient Ready for Surgery Finalized By: CHI Grullon, RN Document Signatures Signed By: CHI Grullon RN 10/16/19 07:30 Electronically signed by Nir [facility] Conversion Cross Country And Track And Field Coach Cerner at 12/08/2022 2:00 PM CDT documented in this encounter Plan of Treatment Upcoming Encounters Date Type Department Care Team (Late st Contact Info) Description 04/12/2025 7:30 AM EDT Hospital Encounter [facility] Operating Room [address] [place] [address] Bill Graham MD [address] [place] [address] 04/12/2025 7:30 AM EDT Anesthesia Event [facility] Operating Room [address] [place] [address] Lucio Szymanski MD [address] [place] [address] 04/12/2025 7:30 AM EDT - 04/12/2025 8:[address] [facility] Operating Room [address] [place] [address] Bill Graham MD [address] [place] [address] (LAPAROSCOPIC PERITONEAL DIALYSIS CATHETER INSERTION) Scheduled Procedures Name Priority Associated Diagnoses Date/Ti me LAPAROSCOPY, WITH PERITONEAL DIALYSIS CATHETER INSERTION Chronic kidney disease, stage V (HCC) 04/12/2025 7:30 AM EDT documented as of this encounter Visit Diagnoses Not on filedocumented in this encounter Care Teams Hand Reamer Relationship Specialty Start Date End Date Félix Monroe, BRIDGE WORKER APPRENTICE [address] [facility] [address] [place] [address] PCP - General Nurse Practitioner 08/25/22 documented as of this encounter
--- OUTSIDE RECORDS SUMMARY | 2025-04-11 11:03 | XMS_ITS | Encounter Summary ---
Author Organization [employer] ([place], [place], [place], [place]) Address [address] [place] [address] Care Team Providers Care Nuclear Operations Specialist Name Role Phone Félix Monroe APRN Primary Care Provider [phone] Encounter Details Date Type Department Care Team (Late st Contact Info) Description 10/17/2019 Transcribed Document [facility] Family Medicine [address] [place] [address] ProviderMaria Esther MD [address] [place] [address] Social History Tobacco Use Types Packs/Day Years Used Date Smoking Tobacco: Never Assessed Comments Unknown Sex and Gender Information Value Date Recorded Sex Assigned at Not on file Legal Sex Female 6:53 PM CDT Gender Identity Not on file Sexual Orientation Not on file documented as of this encounter Miscellaneous Notes * Cerner Conversion Note - Maria Esther Reyes MD - 10/17/2019 8:52 AM CDT Patient: CORRIE SMITH Age: 49 [...] discharged on 09/04/19. She initially presented to [facility] with a two day history of dark [...] her chart. Therefore she was transferred to [facility] for further work up and evaluation. The pt is scheduled to have a RIA today. Her H/H today are stable at 8.4/25.0. She does have a history of Chronic stage IV renal failure and Creatinine today is 3.1. Her baseline range is 2.0-2.[address] Howell has been consulted as they were following her during her last hospitalization. 10/13/19: The pt states I feel much better. 10/14/19: Nervous, but looking forward to getting problem fixed 10/15/19: Anxious, just got some Xanax. 10/16/19: Redo MVR (Operative report is pending) 10/17/19: POD#1 The pt complains of incisional pain. She is paced with underlying NSR 59. Health Status Allergies: Allergies (1) Active Reaction codeine Welts Physical Examination Intake and Output 24 hour intake: Total 2,258 ml 24 hour output: Urinary catheter 855 ml, Total 1,320 ml MT 90ml / 12 hrs (160ml/24hrs) Mediastinal ERWIN 150ml/12 hrs (305ml/24hrs) VS/Measurements Vital Measurements 10/17/2019 8:36 EDT Oxygen Saturation 100 % Oxygen Flow Rate 3 Liter/Min 10/17/2019 7:00 EDT Systolic BP, Arterial Line 1 95 mmHg Diastolic BP, Arterial Line 1 59 mmHg LOW Mean Arterial Pressure, Line 1 71 mmHg Temperature, Celsius 35.7 Deg C Clinical Temperature, F 96.3 Deg F Heart Rate Monitored 89 bpm Oxygen Therapy Mode Nasal cannula General: Alert and oriented, No acute distress. HENT: Normocephalic. Neck: Supple. Respiratory: Respirations are non-labored. Breath sounds: Diminished, No rhonchi present, No wheezes present. Cardiovascular: Normal rate, 90 beats per minute, Regular rhythm, S1, S2, No edema, paced at 90 with underlying NSR 59. Integumentary: Warm, Dry, [place], Aquacel dressing is C/D/I. Neurologic: Alert, Oriented. Psychiatric: Cooperative, Appropriate mood & affect. Review / Management Results review: OCT 16 03:32 138 107 H 31 / H 119 3.9 21 H 3.40 \ OCT 16 03:32 \ L 7.8 / H 12.8 L 116 / L 23.1 \ Blood Gases (Current Encounter/Past 24 Hours) pH Art 7.40 10/16/2019 17:21 pCO2 Art 40.5 10/16/2019 17:21 pO2 Art 137.0 HI 10/17/2019 03:01 HCO3 Art 24.8 10/16/2019 17:21 BE Art .0 10/17/2019 06:30 sO2 Art 99.8 10/16/2019 17:21 tHb Art 9.0 LOW 10/17/2019 03:01 FHHb <2.4 NA 10/16/2019 17:21 ctO2 12.6 NA 10/16/2019 17:21 FIO2 Art 40 NA 10/16/2019 17:21 Delivery Device Type Art Ventilator 10/16/2019 17:21 Temperature, F Art 98.6 NA 10/16/2019 17:21 Art Blood Gas (ABG) Site Arterial Line NA 10/16/2019 17:21 Acceptable Ilir's Test Art Non-Applicable NA 10/16/2019 17:21 Ventilator Mode Art spont NA 10/16/2019 17:21 Tidal Volume Set Art 450.0 NA 10/16/2019 16:50 Set Rate Art 14.0 NA 10/16/2019 16:50 Respiratory Rate Art 20.0 NA 10/16/2019 17:21 CPAP/PEEP Art 5.0 NA 10/16/2019 17:21 Pressure Support Art 8.0 NA 10/16/2019 17:21 pH Art POC 7.330 LOW 10/16/2019 14:31 pCO2 Art POC 39.5 10/16/2019 14:31 pO2 Art POC 444.0 HI 10/16/2019 14:31 HCO3 Art POC 20.8 LOW 10/16/2019 14:31 tCO2 Art POC 22.0 LOW 10/16/2019 14:31 BE Art POC -5.0 LOW 10/16/2019 14:31 sO2 Art POC >99.9 HI 10/16/2019 14:31 ABG Num of Draw Attempts 1 NA 10/16/2019 17:21 Coagulation Results (Current Encounter/Past 24 Hours) PT 12.0 Second(s) 10/16/2019 16:45 PTT 25.7 Second(s) 10/16/2019 16:45 INR 1.1 10/16/2019 16:45 . Impression and Plan Plan: 10/12/19 Awaiting results of RIA Possible surgery tomorrow vs Wednesday I discussed pt with Academic Administrator, Dr. Howell and he is okay with proceeding with surgical plan at any time. 10/13/19 RIA: S/p mitral ring repair. Tethering of the posterior mitral leaflet. Severe mitral regurgitation (4+) is present. Eccentric, anteriorly directed regurgitant mitral jet. No vegetations. Redo MVR on Wednesday by Dr. Valdez Transfer to [facility] 10/14/19 Reentry sternotomy for MVR Wednesday by Dr. Valdez Creatinine 3.8 (4.0 yesterday) nephrology following Hemolytic anemia with Hematocrit 23.0 (24.8 yesterday). Hematology following History of prolonged QT. Will DC Zofran. 10/15/19 Reentry sternotomy for mitral valve replacement, prior MVV, tomorrow per Dr. Valdez Creatinine 3.7 (3.8 yesterday, 4.0 the day prior) Hematocrit: 23.3 (23.0 yesterday) Type and crossed for 4 units. 10/16/19 Redo MVR 10/17/19 POD#1 Paced 90 Daily PT/INR Coumadin 3mg PO Daily Transfer to [facility] Diagnosis Marijuana daily smoker - Pre-Op [...] - Pre-Op Diagnosis, Medical. Electronically signed by [facility] Conversion Stage Electrician Helper Cerner at 10/28/2022 7:06 PM CDT documented in this encounter Plan of Treatment Upcoming Encounters Date Type Department Care Team (Late st Contact Info) Description 04/12/2025 7:30 AM EDT Hospital Encounter [facility] Operating Room [address] [place] [address] Bill Graham MD [address] [place] [address] 04/12/2025 7:30 AM EDT Anesthesia Event [facility] Operating Room [address] [place] [address] Lucio Szymanski MD [address] [place] [address] 04/12/2025 7:30 AM EDT - 04/12/2025 8:55 AM EDT Surgery [facility] Operating Room [address] [place] [address] Bill Graham MD [address] [place] [address] [address] (LAPAROSCOPIC PERITONEAL DIALYSIS CATHETER INSERTION) Scheduled Procedures Name Priority Associated Diagnoses Date/Ti me LAPAROSCOPY, WITH PERITONEAL DIALYSIS CATHETER INSERTION Chronic kidney disease, stage V (HCC) 04/12/2025 7:30 AM EDT documented as of this encounter Visit Diagnoses Not on filedocumented in this encounter Care Teams Nuclear Operations Specialist Relationship Specialty Start Date End Date Félix Monroe, TUBE MILL OPERATOR [address] [id number] PCP - General Nurse Practitioner 08/25/22 documented as of this encounter
--- OUTSIDE RECORDS SUMMARY | 2025-04-11 11:03 | XMS_ITS | Encounter Summary ---
Author Organization [employer] ([place], [place], [place], [place]) Address [address] [address] Care Team Providers Care Fur Trapper Name Role Phone Félix Monroe APRN Primary Care Provider [phone] Encounter Details Date Type Department Care Team (Late st Contact Info) Description 10/18/2019 Transcribed Document [facility] [place] [facility] [place] [address] ProviderMaria Esther MD [address] [place] [address] Social History Tobacco Use Types Packs/Day Years Used Date Smoking Tobacco: Never Assessed Comments Unknown Sex and Gender Information Value Date Recorded Sex Assigned at Not on file Legal Sex Female 6:53 PM CDT Gender Identity Not on file Sexual Orientation Not on file documented as of this encounter Miscellaneous Notes * Cerner Conversion Note - Maria Esther Reyes MD - 10/18/2019 11:34 AM CDT Patient: AWAIS SMITH Age: 49 years Sex: Female : 1970 Associated Diagnoses: None Author: DARRIUS TOUSSAINT APRN-CTS Admission Date: Attending: Dr. Александр Valdez, CT Surgery PCP: Dr. Susu García CARD: Dr. Chava Lockett Neph: Dr. Mendoza Gallardo Consultants: Dr. Emanuel Brody, Cardiology Dr. Ronan Bowser, Hematology Dr. Александр Valdez, CT Surgery Dr. Preston Howell Brief History:This 49-year-old female in August of this year underwent a mitral valve repair for severe mitral regurgitation. The patient had only trivial mitral regurgitation at the conclusion of that procedure and had an uneventful postoperative course. On followup, the patient was presented with acute pulmonary insufficiency and edema and was found to have evidence of severe mitral regurgitation with hemolysis and severe persistent anemia secondary to hemolysis. It is presumed that hemolysis was from the mitral regurgitation and the regurgitant jet hitting the mitral annuloplasty ring causing hemolysis. The patient is put forth at this time for redo mitral valve surgery. PROCEDURE: 10/13/19>> RIA 10/16/19>>1. Re-entry median sternotomy. 2. Explantation of 28 mm CG annuloplasty band. 3. Placement, 35 On-X mechanical mitral prosthesis. a. Salvage and reimplantation of all anterior and posterior chordae. 4. Intraoperative transesophageal echocardiography. 5. Placement of left common femoral arterial line (Seldinger technique). DX(Present on admission): 1. Severe mitral regurgitation. 2. Status post tricuspid valve repair (08/29/2019, 28 mm CG annuloplasty band, Dr. Valdez). 3. Severe hemolysis secondary to mitral annuloplasty ring and severe mitral regurgitation >> acute anemia requiring PRBC 4. Severe left ventricular hypertrophy. 5. Near-normal coronary arteries. 6. Acute Kidney Injury onChronic class 3 to 4 kidney disease (creatinine 3.1); baseline creatinine 2 7. Chronic persistent tobacco abuse, stopped 8. History of acute congestive heart failure, on chronic congestive heart failure, class 3, systolic valvular. 9. History of laparoscopic gastric banding for treatment of morbid obesity. 10. Gastroesophageal reflux disease,severe 11. Chronic obstructive pulmonary disease. 12. Past History of transient ischemic attack. 13. Prolonged QTc on admission 14. Hyperalbuminia, suspect secondary to mitral valve disease 15. Systemic HTN 16. RLS 17. Sleep apnea 18. Daily marijuana use EF 40 % per intraop RIA POSTOP DX: Bibasilar atelectasis Subjective 10/13/19: The pt states I feel much better. 10/14/19: Nervous, but looking forward to getting problem fixed 10/15/19: Anxious, just got some Xanax. 10/16/19: Redo MVR (Operative report is pending) 10/17/19: POD#1 The pt complains of incisional pain. She is paced with underlying NSR 59. 10/18/19: POD#2 coughing, secretions too thick to get out Health Status Allergies: Allergic Reactions (Selected) Severity Not Documented Codeine- Welts, nausea and hives. Current medications.Problem list. Objective VS/Measurements Vital Measurements 10/18/2019 10:23 EDT Systolic Blood Pressure 117 mmHg Diastolic Blood Pressure 87 mmHg Temperature, Fahrenheit 98.1 Deg F Heart Rate Monitored 90 bpm 10/18/2019 9:07 EDT Oxygen Saturation 97 % Oxygen Therapy Mode Room air General: Alert and oriented. Respiratory: Lungs are clear to auscultation. Cardiovascular: Normal rate, Regular rhythm. Gastrointestinal: Soft, Non-tender, Non-distended. sternal incision>> Aquacell dressing Tolerates PO Voiding Last BM >> 4\5 Ambulates Results Review General results Today's results 10/18/2019 5:58 EDT PT 18.3 Second(s) HI INR 1.7 HI 10/18/2019 3:37 EDT Sodium Level 133 mmol/L LOW Potassium Level 4.1 mmol/L Chloride Level 102 mmol/L Carbon Dioxide Level 19 mmol/L LOW Anion Gap 16 Glucose Level 122 mg/dL HI Blood Urea Nitrogen 36 mg/dL HI Creatinine Level 3.90 mg/dL HI eGFR 15 mL/min/1.73m2 LOW eGFR NonAfrican 12 mL/min/1.73m2 LOW Bun/Creatinine 9.2 Calcium Level 8.8 mg/dL Interpretation: Radiology Results (Last 48 hours) [id number] -- 10/11/2019 15:38 CR Chest 1 Vw Portable (10/16/2019 16:26) Result: PORTABLE CHESTHISTORY: Respiratory failure., Postop valve replacementCOMPARISON: 10/15/2019.FINDINGS: A single portable radiograph of the chest was performed. Thepatient is status post sternotomy for valve replacement. The patient isstatus post sternotomy. An endotracheal tube is seen within the midthoracic trachea. A nasogastric tube is seen below the diaphragm.Mediastinal drain is present. A Sumner catheter is seen with the tip inthe main pulmonary outflow tract. There is decreased lung volume withleft base atelectasis. There is no pneumothorax. There are some mildvascular congestion with mild interstitial edema.IMPRESSION:1. Postop changes with life-support lines in good position.2. Mild vascular congestion and interstitial edema.3. No pneumothorax.Images reviewed, interpreted, and dictated by Jeremias Wells MD CR Chest 1 Vw Portable (10/17/2019 04:00) Result: PORTABLE CHEST 10/17/2019 2:56 AMHISTORY: PostoperativeCOMPARISON: 11 hours priorFINDINGS: The patient is status post sternotomy for valve replacement.The cardiac silhouette is normal in size. The mediastinal and hilarcontours are unremarkable. There are small bilateral pleural effusionswith left base airspace disease. There is mild stable edema. There is nopneumothorax. The visualized osseous structures demonstrate no acuteabnormalities.IMPRESSION: Left base airspace disease with small bilateral pleuraleffusions and mild stable edema. Images reviewed, interpreted, and dictated by Dr. Jeremias Wells.Transcribed by Nadine Meier (R).I have personally viewed, interpreted and dictated the examination. Ihave read and agree with the above final transcribed report. CR Chest 1 Vw Portable (10/18/2019 06:48) Result: PORTABLE CHEST X-RAYINDICATION: Pleural effusion.FINDINGS: A portable view of the chest was obtained. Comparison ismade to a prior exam dated 10/17/2019. The NG tube and right IJ Sumner-Ganzcatheter have been removed. Pleural and mediastinal drains areunchanged. The heart is mildly enlarged. There is left greater thanright basilar opacity with small pleural effusions. Favor atelectasis.There is no pneumothorax.IMPRESSION: Bibasilar opacities and bilateral pleural effusions, favoratelectasis.Images reviewed, interpreted, and dictated by Corie Moncada MD Impression and Plan VTE STATUS>>SCDS 10/13/19 RIA: S/p mitral ring repair. Tethering of the posterior mitral leaflet. Severe mitral regurgitation (4+) is present. Eccentric, anteriorly directed regurgitant mitral jet. No vegetations. Redo MVR on Wednesday by Dr. Valdez Transfer to [facility] 10/14/19 Reentry sternotomy for MVR Wednesday [...] PT/INR Coumadin 3mg PO Daily Transfer to [facility] 10/18/19 Telemetry>> AV paced at 89 O2 sat: 97% on RA Re-ordered CBC>> H\H stable at 8.2\25 Creatinine 3.9 ( 3.4 yesterday); managed by Dr. Howell INR 1.7 after one dose coumadin 1 mg< Dr. Valdez has decreased dose to 0.5 mg MT output: 6p to 6a 40 ml; 6a to 12n:minimal>>removed without problems Mid ERWIN output: 6p to 6a none; 6a to 12n:minimal>>removed without problems Mucinex for thick secretions Laxatives ordered ( Lactulose\Dulcolax supp) Pt discussed with Dr. Valdez>> continue Temporary pacing to improve Cardiac output Pain Rx of chart for Dr. Valdez's signature COUMADIN DIARY Goal INR: Coumadin to be managed by [facility] ( [facility]) [phone] First INR appt tenatively scheduled for Wednesday, at 11:30a ( dependent on when pt is discharged) Date: 10/16 10/17 10/18 10/19 10/20 10/21 10/22 INR 1.1 1.7 Coumadin: 1 mg 0.5mg documented in this encounter Plan of Treatment Upcoming Encounters Date Type Department Care Team (Late st Contact Info) Description 04/12/2025 7:30 AM EDT Hospital Encounter [facility] Operating Room [address] [place] [address] Bill Graham MD [address] [place] [address] [address] [phone] 04/12/2025 7:30 AM EDT Anesthesia Event [facility] Operating Room [address] [place] [address] Lucio Szymanski MD [address] [place] [address] 04/12/2025 7:30 AM EDT - 04/12/2025 8:55 AM EDT Surgery [facility] Operating Room [address] [place] [id number] Bill Graham MD [address] [facility] [address] [place] [phone] (LAPAROSCOPIC PERITONEAL DIALYSIS CATHETER INSERTION) Scheduled Procedures Name Priority Associated Diagnoses Date/Ti me LAPAROSCOPY, WITH PERITONEAL DIALYSIS CATHETER INSERTION Chronic kidney disease, stage V (HCC) 04/12/2025 7:30 AM EDT documented as of this encounter Visit Diagnoses Not on filedocumented in this encounter Care Teams Fur Trapper Relationship Specialty Start Date End Date Félix Monroe, EGG PACKER [address] [facility] [address] [place] [address] PCP - General Nurse Practitioner 08/25/22 documented as of this encounter
--- OUTSIDE RECORDS SUMMARY | 2025-04-11 11:03 | XMS_ITS | Encounter Summary ---
Author Organization [employer] ([place], [place], [place], [place]) Address [address] [address] Care Team Providers Care Revival Clerk Name Role Phone Félix Monroe APRN Primary Care Provider [phone] Encounter Details Date Type Department Care Team (Late st Contact Info) Description 10/13/2019 Transcribed Document [facility] [place] [address] [place] [address] ProviderMaria Esther MD [address] [place], [place] [phone] Social History Tobacco Use Types Packs/Day Years Used Date Smoking Tobacco: Never Assessed Comments Unknown Sex and Gender Information Value Date Recorded Sex Assigned at Not on file Legal Sex Female 6:53 PM CDT Gender Identity Not on file Sexual Orientation Not on file documented as of this encounter Miscellaneous Notes * Cerner Conversion Note - Maria Esther ProviderMD - 10/13/2019 2:00 AM CDT Plate Sensitizer Details Entered On: 10/13/2019 5:11 EDT Performed On: 10/13/2019 2:00 EDT by MARICARMEN GARCIA RN Order Details Order Detail : 0 Lift/Transfer : Independent Central Line Order Detail : No Room Service : Appropriate Arterial Line : No MARICARMEN GARCIA RN - 10/13/2019 5:11 EDT documented in this encounter Plan of Treatment Upcoming Encounters Date Type Department Care Team (Late st Contact Info) Description 04/12/2025 7:30 AM EDT Hospital Encounter [facility] Operating Room [address] [place] [address] Bill Graham MD [address] [facility] [address] [place] [address] 04/12/2025 7:30 AM EDT Anesthesia Event [facility] Operating Room [address] [place] [address] Lucio Szymanski MD [address] [place] [address] 04/12/2025 7:30 AM EDT - 04/12/2025 8:55 AM EDT Surgery [facility] Operating Room [address] [place] [address] Bill Graham MD [address] [facility] [place] [phone] (LAPAROSCOPIC PERITONEAL DIALYSIS CATHETER INSERTION) Scheduled Procedures Name Priority Associated Diagnoses Date/Ti me LAPAROSCOPY, WITH PERITONEAL DIALYSIS CATHETER INSERTION Chronic kidney disease, stage V (HCC) 04/12/2025 7:30 AM EDT documented as of this encounter Visit Diagnoses Not on filedocumented in this encounter Care Teams Revival Clerk Relationship Specialty Start Date End Date Félix Monroe, TALEND ETL DEVELOPER [address] [facility] [address] [place] [address] PCP - General Nurse Practitioner 08/25/22 documented as of this encounter
--- OUTSIDE RECORDS SUMMARY | 2025-04-11 11:03 | XMS_ITS | Encounter Summary ---
Author Organization [facility] ([place], [place], [place], [place]) Address [address] [place] [address] Care Team Providers Care Gemologist Name Role Phone Félix Monroe APRN Primary Care Provider [phone] Encounter Details Date Type Department Care Team (Late st Contact Info) Description 10/17/2019 Transcribed Document [facility] [place] [facility] [place] [address] ProviderMaria Esther MD [address] [place] [id number] Social History Tobacco Use Types Packs/Day Years Used Date Smoking Tobacco: Never Assessed Comments Unknown Sex and Gender Information Value Date Recorded Sex Assigned at Not on file Legal Sex Female 6:53 PM CDT Gender Identity Not on file Sexual Orientation Not on file documented as of this encounter Miscellaneous Notes * Cerner Conversion Note - Maria Esther Reyes MD - 10/17/2019 11:15 AM CDT Patient: CORRIE SMITH Age: 49 years Sex: Female : 1970 Associated Diagnoses: None Author: GILES BLAS MD-INT DATE OF SERVICE [ DOS ]: 10-17-2019 Basic Information SUBJECTIVE: Patient is seen and [...] ointment: 1 Application, Nostrils Both, BID Coumadin: 1 mg, Oral, Daily Dulcolax Laxative: 10 mg, [...] mg tab 1 Tab, Oral, BID warfarin 1 mg tab 1 mg 1 Tab, Oral, Daily Continuous: (0) [...] initial episode of care / SNOMED CT 7823342431 / Confirmed At risk for sleep apnea / IMO 91361501 / Confirmed CHF, acute on chronic / SNOMED CT 15514601 / Confirmed Class 3 Systolic GERD - Gastro-esophageal reflux disease / SNOMED CT 5283506331 / Confirmed H/O: TIA / SNOMED CT 859035840 / Confirmed History of laparoscopic adjustable gastric banding / SNOMED CT 3854564934 / Confirmed History of obstructive sleep apnea / IMO 10793134 / Confirmed HTN - Hypertension / SNOMED CT 9079890433 / Confirmed Mitral regurgitation / SNOMED CT 64555428 / Confirmed Prolonged QT interval / SNOMED CT 013032111 / Confirmed 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 154063028 / Confirmed Pulmonary edema / SNOMED CT 10628604 / Confirmed Restless legs syndrome / SNOMED CT 28136419 / Confirmed RF - Renal failure, Stage 4 / SNOMED CT 3079504486 / Confirmed Sleep apnea-before weight loss surgery / SNOMED CT 751098578 / Confirmed, Active Problems (16) At risk [...] Stage 4 Sleep apnea-before weight loss surgery OBJECTIVE: Physical Examination General: Alert and oriented, No acute distress. [...] tenderness, No swelling, No deformity. Integumentary: Warm, [place], Moist, No rash. Neurologic: Alert, Oriented, Normal sensory, Normal motor function, No focal deficits, Cranial Nerves II-XII are grossly intact, Normal deep tendon reflexes. Psychiatric: Cooperative, Appropriate mood & affect, Normal judgment. Review / Management Results review: Labs (Last four charted values) WBC H 12.8 (OCT 16) H 16.0 (OCT 15) H 16.6 (OCT 15) H 23.2 (OCT 15) HB L 8.0 (OCT 16) L 7.8 (OCT 16) L 8.3 (OCT 15) L 8.3 (OCT 15) HCT L 25.1 (OCT 16) L 23.1 (OCT 16) L 24.3 (OCT 15) L 24.5 (OCT 15) Plt L 116 (OCT 16) L 123 (OCT 15) L 121 (OCT 15) L 125 (OCT 15) Lactic 1.2 (OCT 10) PT 11.6 (OCT [...] 0.054 (OCT 11) H 0.091 (OCT 10) , , Radiology Results (Last 48 hours) [id number] -- 10/11/2019 15:38 CR Chest 1 Vw Portable (10/16/2019 16:26) Result: PORTABLE CHESTHISTORY: Respiratory failure., Postop valve replacementCOMPARISON: 10/15/2019.FINDINGS: A single portable radiograph of the chest was performed. Thepatient is status post sternotomy for valve replacement. The patient isstatus post sternotomy. An endotracheal tube is seen within the midthoracic trachea. A nasogastric tube is seen below the diaphragm.Mediastinal drain is present. A [place] catheter is seen with the tip inthe [...] agree with the above final transcribed report. . Impression and Plan S/P Mitral Valve replacement on 10-16-2019 Acute Postoperative hypoxic respiratory Failure S/P Intubation on 10-16-2019 Remains on Vent Sedated 1. Acute blood loss anemia: Suspect hemolysis, [...] systolic CHF: Continue cardiac meds as able. GI prophylaxis: Placed on Protonix DVT prophylaxis: Placed on Coumadin and Sequential compression device Code status: Full code I saw and evaluated the patient in the intensive care Extubated Still has chest tube in Started on Coumadin for Mechanical valve IV Insulin drip I D/W interventional technologist I D/W patient TIME SPENT: 38 minutes Critical care time documented in this encounter Plan of Treatment Upcoming Encounters Date Type Department Care Team (Late st Contact Info) Description 04/12/2025 7:30 AM EDT Hospital Encounter [facility] Operating Room 1 [place] [address] Bill Graham MD [address] [facility] [address] [place] [id number] 04/12/2025 7:30 AM EDT Anesthesia Event [facility] Operating Room 1 [place] [address] Lucio Szymanski MD [address] [place] [address] 04/12/2025 7:30 AM EDT - 04/12/2025 8:55 AM EDT Surgery [facility] Operating Room 1 [place] [address] Bill Graham MD [address] [facility] [address] [place] [address] (LAPAROSCOPIC PERITONEAL DIALYSIS CATHETER INSERTION) Scheduled Procedures Name Priority Associated Diagnoses Date/Ti me LAPAROSCOPY, WITH PERITONEAL DIALYSIS CATHETER INSERTION Chronic kidney disease, stage V (HCC) 04/12/2025 7:30 AM EDT documented as of this encounter Visit Diagnoses Not on filedocumented in this encounter Care Teams Gemologist Relationship Specialty Start Date End Date Félix Monroe, APPEALS RN [address] [facility] [address] [place] [address] PCP - General Nurse Practitioner 08/25/22 documented as of this encounter
--- OUTSIDE RECORDS SUMMARY | 2025-04-11 11:03 | XMS_ITS | Encounter Summary ---
Author Organization [employer] ([place], [place], [place], [place]) Address [address] [place] [address] Care Team Providers Care Programs Manager Name Role Phone MonroeFélix APRN Primary Care Provider [phone] Encounter Details Date Type Department Care Team (Late st Contact Info) Description 10/16/2019 Transcribed Document [facility] [place] [facility] [address] [place] [address] ProviderMaria Esther MD [address] [place], [place] [address] Social History Tobacco Use Types Packs/Day Years Used Date Smoking Tobacco: Never Assessed Comments Unknown Sex and Gender Information Value Date Recorded Sex Assigned at Not on file Legal Sex Female 6:53 PM CDT Gender Identity Not on file Sexual Orientation Not on file documented as of this encounter Miscellaneous Notes * Cerner Conversion Note - Maria Esther Reyes MD - 10/16/2019 7:14 PM CDT Patient: CORRIE SMITH Age: 49 Years Sex: Female : 1970 Subjective At the time of afternoon nephrology rounds, the patient has completed her valvular heart surgery. She is on multiple vasoactive medications. She is anticipating transfusion. Nursing staff report that she has aroused to loud voice and responded to commands appropriately. She is intubated and unresponsive at the time of my exam. Vital Signs T: 36.1 ??C TMIN: 36.1 ??C TMAX: 36.8 ??C HR: 89(Monitored) RR: 43 BP: 124/86 BP: 109/67(Line) SpO2: 100% Oxygen Settings (Last) Oxygen Therapy Mode: Nasal cannula (10/16/19 18:30:00) Oxygen Flow Rate: 4 Liter/Min (10/16/19 18:30:00) Intake & Output Totals Last 24 Hours (7a-7a) Input Total: 1000 mL Output Total: 0 mL Balance: 1000 mL Physical Exam General: Critically ill, intubated, sedated Neck: [place] catheter Cardiovascular: Midline sternotomy with dressing in place, Irregular rhythm, Multiple postsurgical drains in place Pulmonary: Intubated, breathing with the ventilator, fair air movement Gastrointestinal: Abdomen is soft, nontender, no guarding, nondistended Genitourinary:Allison catheter draining clear Breanne urine Musculoskeletal:Poormuscle tone, no lower extremity edema Assessment and plan: Acute kidney injury on chronic kidney disease stage IV: Mitral valve surgery Respiratory failure on the ventilator Hypokalemia, mild Chronic kidney disease stage IV: Postoperatively, she has good urine output. Her hemodynamics are being maintained with vasoactive medicines. I've discussed the case with the bedside nursing staff and she is okay for her to get potassium per protocol in order to maintain her electrolytes in the setting of her cardiovascular surgery. She will continue with routine frequent laboratory monitoring in order to assess her electrolytes, clearance and acid-base status. -We will continue to monitor for worsening kidney function after valvular surgery. She is okay for potassium electrolyte replacement protocol. I'm reassured that her urine output is stable. Mendoza Gallardo MD -Nephrology Note dictated with [employer] voice recognition system Partner with Dr. Howell, Dr. Pantoja and Dr. Muniz Medications Ancef, 2 Gram= 50 mL, IV Piggyback, PREOP aspirin, 81 mg= 1 Tab, Oral, Daily Bactroban 2% nasal ointment, 1 Application, Nostrils Both, BID Benadryl, 12.5 mg= 0.5 Tab, Oral, At Bedtime, PRN cloNIDine, 0.1 mg= 1 Tab, Oral, Q4H, PRN Coreg, 25 mg= 1 Tab, Oral, BID dexmedetomidine injection 400 mcg + NaCl 0.9% for drip 100 mL DuoNeb 0.5 mg-2.5 mg/3 mL inhalation solution, 3 mL, Nebulized Inhalation , Q6H, PRN EPINEPHrine injection 5 mg + NaCl 0.9% for drip 250 mL hydrALAZINE, 10 mg= 0.5 mL, IV Push, Q6H, PRN hydrALAZINE, 25 mg= 1 Tab, Oral, TID Lactated Ringers Injection intravenous solution 1,000 mL, 1000 mL, IntraVENous lidocaine 1% preservative-free injectable solution, 0.5 mL, IntraDermal, 1-Time morphine, 2 mg= 1 mL, IV Push, Q2H, PRN nicotine 21 mg/24 hr transdermal film, extended release, 1 Patch, TransDermal, Daily NIFEdipine, 60 mg= 1 Tab, Oral, Daily Nitrostat, 0.4 mg= 1 Tab, SubLINgual, Q5Min, PRN Normal Saline Flush, 10 mL, IV Push, See Comment, PRN Normal Saline Flush, 10 mL, IV Push, Q8H Normal Saline Flush, 10 mL, IV Push, See Comment, PRN Phenergan, 6.25 mg= 0.25 mL, IntraVENous, Q6H, PRN Protonix, 40 mg= 1 Tab, Oral, Daily rOPINIRole, 1 mg= 1 Tab, Oral, At Bedtime Senna S, 1 Tab, Oral, BID sodium bicarbonate 50 mEq per amp (adult), 50 mEq= 50 mL, IV Push, 1-Time Tenormin, 12.5 mg= 0.5 Tab, Oral, QAM Tylenol, 650 mg= 2 Tab, Oral, Q4H, PRN vasopressin injection 20 Units + NaCl 0.9% for drip 100 mL Xanax, 0.25 mg= 1 Tab, Oral, BID, PRN Lab Results Test Name Test Result Date/Time pH Art 7.40 10/16/2019 17:18 EDT pH Art 7.49 (High) 10/16/2019 16:44 EDT pH Art 7.34 (Low) 10/16/2019 14:44 EDT pCO2 Art 40.5 mmHg 10/16/2019 17:18 EDT pCO2 Art 31.8 mmHg (Low) 10/16/2019 16:44 EDT pCO2 Art 36.6 mmHg 10/16/2019 14:44 EDT pO2 Art 137.0 mmHg (High) 10/16/2019 17:18 EDT pO2 Art 168.0 mmHg (High) 10/16/2019 16:44 EDT pO2 Art 138.0 mmHg (High) 10/16/2019 14:44 EDT HCO3 Art 24.8 mmol/L 10/16/2019 17:18 EDT HCO3 Art 24.1 mmol/L 10/16/2019 16:44 EDT HCO3 Art 19.9 mmol/L (Low) 10/16/2019 14:44 EDT BE Art 1.0 mmol/L 10/16/2019 16:44 EDT BE Art -5.3 mmol/L (Low) 10/16/2019 14:44 EDT sO2 Art 99.8 % 10/16/2019 17:18 EDT sO2 Art >100.0 % 10/16/2019 16:44 EDT sO2 Art 99.7 % 10/16/2019 14:44 EDT tHb Art 9.0 Gram/dL (Low) 10/16/2019 17:18 EDT tHb Art 9.0 Gram/dL (Low) 10/16/2019 16:44 EDT tHb Art 9.9 Gram/dL (Low) 10/16/2019 14:44 EDT FHHb <2.4 % 10/16/2019 17:18 EDT FHHb <2.4 % 10/16/2019 16:44 EDT FHHb <2.4 % 10/16/2019 14:44 EDT ctO2 12.6 mmol/L 10/16/2019 17:18 EDT ctO2 13.7 mmol/L 10/16/2019 14:44 EDT FIO2 Art 40 10/16/2019 17:18 EDT FIO2 Art 50 10/16/2019 16:44 EDT FIO2 Art 50 10/16/2019 14:44 EDT Delivery Device Type Art Ventilator 10/16/2019 17:18 EDT Delivery Device Type Art Ventilator 10/16/2019 16:44 EDT Delivery Device Type Art Ventilator 10/16/2019 14:44 EDT Temperature, F Art 98.6 Deg F 10/16/2019 17:18 EDT Temperature, F Art 98.6 Deg F 10/16/2019 16:44 EDT Temperature, F Art 98.6 Deg F 10/16/2019 14:44 EDT Art Blood Gas (ABG) Site Arterial Line 10/16/2019 17:18 EDT Art Blood Gas (ABG) Site Arterial Line 10/16/2019 16:44 EDT Art Blood Gas (ABG) Site Arterial Line 10/16/2019 14:44 EDT Acceptable Ilir's Test Art Non-Applicable 10/16/2019 17:18 EDT Acceptable Ilir's Test Art Non-Applicable 10/16/2019 16:44 EDT Acceptable Ilir's Test Art Non-Applicable 10/16/2019 14:44 EDT Ventilator Mode Art spont 10/16/2019 17:18 EDT Ventilator Mode Art AC 10/16/2019 16:44 EDT Ventilator Mode Art Ac 10/16/2019 14:44 EDT Tidal Volume Set Art 450.0 mL 10/16/2019 16:44 EDT Tidal Volume Set Art 450.0 mL 10/16/2019 14:44 EDT Set Rate Art 14.0 10/16/2019 16:44 EDT Set Rate Art 14.0 10/16/2019 14:44 EDT Respiratory Rate Art 20.0 10/16/2019 17:18 EDT Respiratory Rate Art 19.0 10/16/2019 16:44 EDT Respiratory Rate Art 14.0 10/16/2019 14:44 EDT CPAP/PEEP Art 5.0 cmH2O 10/16/2019 17:18 EDT CPAP/PEEP Art 5.0 cmH2O 10/16/2019 16:44 EDT CPAP/PEEP Art 5.0 cmH2O 10/16/2019 14:44 EDT Pressure Support Art 8.0 cmH2O 10/16/2019 17:18 EDT pH Art POC 7.330 (Low) 10/16/2019 13:17 EDT pH Art POC 7.569 (High) 10/16/2019 12:33 EDT pH Art POC 7.369 10/16/2019 11:32 EDT pH Art POC 7.370 10/16/2019 08:50 EDT pCO2 Art POC 39.5 mmHg 10/16/2019 13:17 EDT pCO2 Art POC 23.3 mmHg (Low) 10/16/2019 12:33 EDT pCO2 Art POC 37.1 mmHg 10/16/2019 11:32 EDT pCO2 Art POC 43.0 mmHg 10/16/2019 08:50 EDT pO2 Art POC 444.0 mmHg (High) 10/16/2019 13:17 EDT pO2 Art POC 441.0 mmHg (High) 10/16/2019 12:33 EDT pO2 Art POC 356.0 mmHg (High) 10/16/2019 11:32 EDT pO2 Art POC 486.0 mmHg (High) 10/16/2019 08:50 EDT HCO3 Art POC 20.8 mmol/L (Low) 10/16/2019 13:17 EDT HCO3 Art POC 21.3 mmol/L (Low) 10/16/2019 12:33 EDT HCO3 Art POC 21.4 mmol/L (Low) 10/16/2019 11:32 EDT HCO3 Art POC 24.9 mmol/L 10/16/2019 08:50 EDT tCO2 Art POC 22.0 mmol/L (Low) 10/16/2019 13:17 EDT tCO2 Art POC 22.0 mmol/L (Low) 10/16/2019 12:33 EDT tCO2 Art POC 23.0 mmol/L 10/16/2019 11:32 EDT tCO2 Art POC 26.0 mmol/L 10/16/2019 08:50 EDT BE Art POC -5.0 mmol/L (Low) 10/16/2019 13:17 EDT BE Art POC -1.0 mmol/L 10/16/2019 12:33 EDT BE Art POC -4.0 mmol/L (Low) 10/16/2019 11:32 EDT BE Art POC 0.0 mmol/L 10/16/2019 08:50 EDT sO2 Art POC >99.9 % (High) 10/16/2019 13:17 EDT sO2 Art POC >99.9 % (High) 10/16/2019 12:33 EDT sO2 Art POC >99.9 % (High) 10/16/2019 11:32 EDT sO2 Art POC >99.9 % (High) 10/16/2019 08:50 EDT ABG Num of Draw Attempts 1 10/16/2019 17:18 EDT ABG Num of Draw Attempts 1 10/16/2019 16:44 EDT ABG Num of Draw Attempts 1 10/16/2019 14:44 EDT Sodium Level 140 mmol/L 10/16/2019 14:24 EDT Sodium Level 140 mmol/L 10/16/2019 03:31 EDT Potassium Level 3.7 mmol/L 10/16/2019 14:24 EDT Potassium Level 3.4 mmol/L (Low) 10/16/2019 03:31 EDT Chloride Level 112 mmol/L 10/16/2019 14:24 EDT Chloride Level 108 mmol/L 10/16/2019 03:31 EDT Carbon Dioxide Level 20 mmol/L (Low) 10/16/2019 14:24 EDT Carbon Dioxide Level 23 mmol/L 10/16/2019 03:31 EDT Anion Gap 8 (Low) 10/16/2019 14:24 EDT Anion Gap 12 10/16/2019 03:31 EDT Glucose Level 106 mg/dL 10/16/2019 14:24 EDT Glucose Level 96 mg/dL 10/16/2019 03:31 EDT Blood Urea Nitrogen 27 mg/dL (High) 10/16/2019 14:24 EDT Blood Urea Nitrogen 30 mg/dL (High) 10/16/2019 03:31 EDT Creatinine Level 3.61 mg/dL (High) 10/16/2019 14:24 EDT Creatinine Level 3.80 mg/dL (High) 10/16/2019 03:31 EDT eGFR 16 mL/min/1.73m2 (Low) 10/16/2019 14:24 EDT eGFR 15 mL/min/1.73m2 (Low) 10/16/2019 03:31 EDT eGFR NonAfrican 13 mL/min/1.73m2 (Low) 10/16/2019 14:24 EDT eGFR NonAfrican 13 mL/min/1.73m2 (Low) 10/16/2019 03:31 EDT Bun/Creatinine 7.5 (Low) 10/16/2019 14:24 EDT Bun/Creatinine 7.9 (Low) 10/16/2019 03:31 EDT Calcium Level 8.4 mg/dL 10/16/2019 14:24 EDT Calcium Level 8.6 mg/dL 10/16/2019 03:31 EDT Sodium POC 137 mmol/L (Low) 10/16/2019 13:17 EDT Sodium POC 135 mmol/L (Low) 10/16/2019 12:33 EDT Sodium POC 134 mmol/L (Low) 10/16/2019 11:32 EDT Sodium POC 140 mmol/L 10/16/2019 08:50 EDT Potassium POC 3.9 mmol/L 10/16/2019 13:17 EDT Potassium POC 4.4 mmol/L 10/16/2019 12:33 EDT Potassium POC 4.6 mmol/L 10/16/2019 11:32 EDT Potassium POC 3.6 mmol/L 10/16/2019 08:50 EDT Glucose POC 194 mg/dL (High) 10/16/2019 13:17 EDT Glucose POC 230 mg/dL (High) 10/16/2019 12:33 EDT Glucose POC 178 mg/dL (High) 10/16/2019 11:32 EDT Glucose POC 108 mg/dL (High) 10/16/2019 08:50 EDT Ca Ioniz POC 1.29 mmol/L 10/16/2019 13:17 EDT Ca Ioniz POC 1.08 mmol/L (Low) 10/16/2019 12:33 EDT Ca Ioniz POC 1.14 mmol/L 10/16/2019 11:32 EDT Ca Ioniz POC 1.25 mmol/L 10/16/2019 08:50 EDT Calcium Ionized 1.24 mmol/L 10/16/2019 14:24 EDT WBC 16.6 K/uL (High) 10/16/2019 16:25 EDT WBC 23.2 K/uL (High) 10/16/2019 14:24 EDT WBC 9.5 K/uL 10/16/2019 03:31 EDT RBC 2.73 Million/uL (Low) 10/16/2019 16:25 EDT RBC 3.30 Million/uL (Low) 10/16/2019 14:24 EDT RBC 2.46 Million/uL (Low) 10/16/2019 03:31 EDT Hgb 8.3 g/dL (Low) 10/16/2019 16:25 EDT Hgb 10.3 g/dL (Low) 10/16/2019 14:24 EDT Hgb 7.8 g/dL (Low) 10/16/2019 03:31 EDT Hct 24.5 % (Low) 10/16/2019 16:25 EDT Hct 30.5 % (Low) 10/16/2019 14:24 EDT Hct 23.8 % (Low) 10/16/2019 03:31 EDT MCV 89.7 fL 10/16/2019 16:25 EDT MCV 92.4 fL 10/16/2019 14:24 EDT MCV 96.7 fL (High) 10/16/2019 03:31 EDT MCH 30.4 pg 10/16/2019 16:25 EDT MCH 31.2 pg 10/16/2019 14:24 EDT MCH 31.7 pg 10/16/2019 03:31 EDT MCHC 33.9 Gram/dL 10/16/2019 16:25 EDT MCHC 33.8 Gram/dL 10/16/2019 14:24 EDT MCHC 32.8 Gram/dL 10/16/2019 03:31 EDT Platelet Count 121 K/uL (Low) 10/16/2019 16:25 EDT Platelet Count 125 K/uL (Low) 10/16/2019 14:24 EDT Platelet Count 166 K/uL 10/16/2019 03:31 EDT MPV 12.4 fL 10/16/2019 16:25 EDT MPV 13.6 fL (High) 10/16/2019 14:24 EDT MPV 14.7 fL (High) 10/16/2019 03:31 EDT RDW 19.2 % (High) 10/16/2019 16:25 EDT RDW 19.5 % (High) 10/16/2019 14:24 EDT RDW 20.0 % (High) 10/16/2019 03:31 EDT Neut % 85.2 % (High) 10/16/2019 16:25 EDT Neut % 89.6 % (High) 10/16/2019 14:24 EDT Neut # 14.16 K/uL (High) 10/16/2019 16:25 EDT Neut # 20.78 K/uL (High) 10/16/2019 14:24 EDT Lymph % 5.7 % (Low) 10/16/2019 16:25 EDT Lymph % 5.6 % (Low) 10/16/2019 14:24 EDT Lymph # 0.95 x10(3)/uL (Low) 10/16/2019 16:25 EDT Lymph # 1.31 x10(3)/uL 10/16/2019 14:24 EDT Pike % 7.0 % 10/16/2019 16:25 EDT Pike % 1.6 % (Low) 10/16/2019 14:24 EDT Pike # 1.16 K/uL (High) 10/16/2019 16:25 EDT Pike # 0.37 K/uL 10/16/2019 14:24 EDT Eos % 0.2 % 10/16/2019 16:25 EDT Eos % 0.7 % 10/16/2019 14:24 EDT Eos # 0.04 x10(3)/uL 10/16/2019 16:25 EDT Eos # 0.17 x10(3)/uL 10/16/2019 14:24 EDT Baso % 0.2 % 10/16/2019 16:25 EDT Baso % 0.4 % 10/16/2019 14:24 EDT Baso # 0.04 x10(3)/uL 10/16/2019 16:25 EDT Baso # 0.10 x10(3)/uL 10/16/2019 14:24 EDT nRBC 0.040 (High) 10/16/2019 16:25 EDT nRBC 0.070 (High) 10/16/2019 14:24 EDT nRBC 0.020 (High) 10/16/2019 03:31 EDT Hematocrit POC 25.0 % (Low) 10/16/2019 13:17 EDT Hematocrit POC 19.0 % (Low) 10/16/2019 12:33 EDT Hematocrit POC 17.0 % (Low) 10/16/2019 11:32 EDT Hematocrit POC 20.0 % (Low) 10/16/2019 08:50 EDT Hemoglobin POC 8.5 Gram/dL (Low) 10/16/2019 13:17 EDT Hemoglobin POC 6.5 Gram/dL (Low) 10/16/2019 12:33 EDT Hemoglobin POC 5.8 Gram/dL (Low) 10/16/2019 11:32 EDT Hemoglobin POC 6.8 Gram/dL (Low) 10/16/2019 08:50 EDT Slide Review No 10/16/2019 16:25 EDT Slide Review No 10/16/2019 14:24 EDT Slide Review No 10/16/2019 03:31 EDT IG# 0.28 x10(3)/uL (High) 10/16/2019 16:25 EDT IG# 0.48 x10(3)/uL (High) 10/16/2019 14:24 EDT IG% 1.70 % (High) 10/16/2019 16:25 EDT IG% 2.10 % (High) 10/16/2019 14:24 EDT PT 12.0 Second(s) 10/16/2019 16:25 EDT INR 1.1 10/16/2019 16:25 EDT PTT 25.7 Second(s) 10/16/2019 16:25 EDT ACT POC 114 Second(s) 10/16/2019 13:16 EDT ACT POC 621 Second(s) (High) 10/16/2019 12:33 EDT ACT POC 703 Second(s) (High) 10/16/2019 12:11 EDT ACT POC 940 Second(s) (High) 10/16/2019 11:32 EDT ACT POC 929 Second(s) (High) 10/16/2019 11:00 EDT ACT POC 466 Second(s) (High) 10/16/2019 10:27 EDT ACT POC 125 Second(s) 10/16/2019 08:49 EDT Fibrin Degradation Products <5 10/16/2019 16:25 EDT Fibrinogen Level 216 mg/dL (Low) 10/16/2019 16:25 EDT FFP Product Ready FFP Ready 10/16/2019 13:25 EDT Plt Product Ready Platelet Ready 10/16/2019 13:25 EDT # of Units 2 10/16/2019 13:25 EDT # of Units 1 10/16/2019 13:25 EDT Electronically signed by Evaristo Loyola Conversion Assembler [employer] at 10/28/2022 7:25 PM CDT documented in this encounter Plan of Treatment Upcoming Encounters Date Type Department Care Team (Late st Contact Info) Description 04/12/2025 7:30 AM EDT Hospital Encounter [facility] Operating Room 1 [place] [id number] Bill Graham MD [address] [place] [address] [address] [place] [address] 04/12/2025 7:30 AM EDT Anesthesia Event [facility] Operating Room [address] [place] [phone] Lucio Szymanski MD [address] [place] [address] 04/12/2025 7:30 AM EDT - 04/12/2025 8:[address] [facility] Operating Room [address] [place] [address] Bill Graham MD [address] [facility] [address] [place] [address] (LAPAROSCOPIC PERITONEAL DIALYSIS CATHETER INSERTION) Scheduled Procedures Name Priority Associated Diagnoses Date/Ti me LAPAROSCOPY, WITH PERITONEAL DIALYSIS CATHETER INSERTION Chronic kidney disease, stage V (HCC) 04/12/2025 7:30 AM EDT documented as of this encounter Visit Diagnoses Not on filedocumented in this encounter Care Teams Programs Manager Relationship Specialty Start Date End Date Félix Monroe, BLUNGER LOADER [address] [facility] [address] [place], [place] [id number] PCP - General Nurse Practitioner 08/25/22 documented as of this encounter
--- OUTSIDE RECORDS SUMMARY | 2025-04-11 11:03 | XMS_ITS | Encounter Summary ---
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 Name Role Phone Félix Monroe APRN Primary Care Provider [phone] Encounter Details Date Type Department Care Team (Late st Contact Info) Description 10/16/2019 Transcribed Document [facility] Family Medicine [address] [place] [address] ProviderMaria Esther MD [address] [place], [place] [id number] Social History Tobacco Use Types Packs/Day Years Used Date Smoking Tobacco: Never Assessed Comments Unknown Sex and Gender Information Value Date Recorded Sex Assigned at Not on file Legal Sex Female 6:53 PM CDT Gender Identity Not on file Sexual Orientation Not on file documented as of this encounter Miscellaneous Notes * Cerner Conversion Note - Maria Esther Reyes MD - 10/16/2019 9:01 AM CDT [facility] Main OR IntraOp Summary Primary Physician: ALESHA EMERY MD-[facility] Finalized Date/Time: 02/08/20 14:45:31 Pt. Name: AWAIS SMITH D.O.B./Sex: 1970 Female Med Rec #: [id number] Physician: ANA BLAS MD-[facility] Financial #: [id number] Pt. Type: I Room/Bed: [facility] [place]/1 Admit/Disch: 10/11/19 15:38:00 - 10/22/19 13:03:00 Institution: [facility] IntraOp Case Attendance Entry 1 Entry 2 Entry 3 Case Attendee ALESHA EMERY MD-CAT HELIO, SISI FELIZ, HORSE GROOMER Role Performed Surgeon/Proceduralist, Scrub, First Scrub, Second First Time In 10/16/19 07:31:00 10/16/19 07:31:00 10/16/19 07:31:00 Time Out 10/16/19 14:09:00 10/16/19 10:19:00 10/16/19 07:44:00 Procedure Mitral Valve Mitral Valve Mitral Valve Replacement Redo, Replacement Redo, Replacement Redo, Transesophageal Transesophageal Transesophageal Echocardiogram Echocardiogram Echocardiogram Other Attendee Superficial Wound Closed By: Last Modified By: Florinda Urban RN Proffitt, Debbie, Florinda Reyna RN 10/16/19 14:08:30 10/16/19 14:08:30 10/16/19 14:08:30 Entry 4 Entry 5 Entry 6 Case Attendee Florinda Urban RN ALTIZER, LISA E, SHIRA ARAGON MD-ANS Role Performed Hris Specialist, First Hris Specialist, Second Anesthesiologist Time In 10/16/19 07:31:00 10/16/19 07:31:00 10/16/19 07:31:00 Time Out 10/16/19 09:46:00 10/16/19 08:50:00 10/16/19 11:35:00 Procedure Mitral Valve Mitral Valve Mitral Valve Replacement Redo, Replacement Redo, Replacement Redo, Transesophageal Transesophageal Transesophageal Echocardiogram Echocardiogram Echocardiogram Other Attendee Superficial Wound Closed By: Last Modified By: Florinda Urban RN Proffitt, Debbie, RN Proffitt, Debbie, RN 10/16/19 14:08:30 10/16/19 14:08:30 10/16/19 14:08:30 Entry 7 Entry 8 Entry 9 Case Attendee SHANNAN CASTILLO PA-UNK Irwin, Tom, agricultural produce packer MARRY LUU, RN Role Performed Physician produce assistant Poultry Culler Hris Specialist, Second Time In 10/16/19 07:31:00 10/16/19 07:31:00 10/16/19 09:46:00 Time Out 10/16/19 08:45:00 10/16/19 13:07:00 10/16/19 10:06:00 Procedure Mitral Valve Mitral Valve Mitral Valve Replacement Redo, Replacement Redo, Replacement Redo, Transesophageal Transesophageal Transesophageal Echocardiogram Echocardiogram Echocardiogram Other Attendee Superficial Wound Closed By: Last Modified By: Florinda Urban RN Proffitt, Debbie, RN Proffitt, Debbie, RN 10/16/19 14:08:30 10/16/19 14:08:30 10/16/19 14:08:30 Entry 10 Entry 11 Entry 12 Case Attendee Florinda Urban RN YORK, CAMELIA, CORIUB SHANNAN CASTILLO PA-UNK TECH Role Performed Hris Specialist, First Scrub, First Physician produce assistant Time In 10/16/19 10:06:00 10/16/19 10:16:00 10/16/19 10:40:00 Time Out 10/16/19 11:22:00 10/16/19 14:09:00 10/16/19 13:45:00 Procedure Mitral Valve Mitral Valve Mitral Valve Replacement Redo, Replacement Redo, Replacement Redo, Transesophageal Transesophageal Transesophageal Echocardiogram Echocardiogram Echocardiogram Other Attendee Superficial Wound Closed By: Last Modified By: Florinda Urban RN Proffitt, Debbie, RN Proffitt, Debbie, RN 10/16/19 14:08:30 10/16/19 14:08:30 10/16/19 14:08:30 Entry 13 Entry 14 Entry 15 Case Attendee JOSEFA CADET LISA E, RN SANTR[place], DALE ALAN, MD-ANS Role Performed Scrub, First Hris Specialist, Second Anesthesiologist Time In 10/16/19 10:49:00 10/16/19 11:09:00 10/16/19 11:35:00 Time Out 10/16/19 11:53:00 10/16/19 12:12:00 10/16/19 11:52:00 Procedure Mitral Valve Mitral Valve Mitral Valve Replacement Redo, Replacement Redo, Replacement Redo, Transesophageal Transesophageal Transesophageal Echocardiogram Echocardiogram Echocardiogram Other Attendee Superficial Wound Closed By: Last Modified By: Florinda Urban RN Proffitt, Debbie, RN Proffitt, Florinda, RN 10/16/19 14:08:30 10/16/19 14:08:30 10/16/19 14:08:30 Entry 16 Entry 17 Entry 18 Case Attendee SHIRA HAILE MD-ANS YORK, CAMELIA, SCRUB Florinda Urban RN TECH Role Performed Anesthesiologist Scrub, First Hris Specialist, First Time In 10/16/19 11:49:00 10/16/19 11:52:00 10/16/19 12:00:00 Time Out 10/16/19 12:58:00 10/16/19 12:58:00 10/16/19 14:09:00 Procedure Mitral Valve Mitral Valve Mitral Valve Replacement Redo, Replacement Redo, Replacement Redo, Transesophageal Transesophageal Transesophageal Echocardiogram Echocardiogram Echocardiogram Other Attendee BREAK Superficial Wound Closed By: Last Modified By: Florinda Urban RN Proffitt, Debbie, RN Proffitt, Debbie, RN 10/16/19 14:08:30 10/16/19 14:08:30 10/16/19 14:08:30 Entry 19 Entry 20 Entry 21 Case Attendee SHARON SETHI SKIDMORE, ROY BURBERRY, KEITH, MD-ANS Poultry Culler Role Performed Poultry Culler Scrub, First Anesthesiologist Time In 10/16/19 12:45:00 10/16/19 12:45:00 10/16/19 12:46:00 Time Out 10/16/19 14:09:00 10/16/19 14:09:00 10/16/19 14:09:00 Procedure Mitral Valve Mitral Valve Mitral Valve Replacement Redo, Replacement Redo, Replacement Redo, Transesophageal Transesophageal Transesophageal Echocardiogram Echocardiogram Echocardiogram Other Attendee Superficial Wound Closed By: Last Modified By: Florinda Urban RN Proffitt, Debbie, RN Proffitt, Debbie, RN 10/16/19 14:08:30 10/16/19 14:08:30 10/16/19 14:08:30 Entry 22 Entry 23 Entry 24 Case Attendee MARRY LUU RN YORK, CAMELIA, SCRUB MANUEL CRAWLEY PA TECH Role Performed Hris Specialist, Second Scrub, Second Physician produce assistant Time In 10/16/19 12:56:00 10/16/19 13:31:00 10/16/19 13:45:00 Time Out 10/16/19 14:09:00 10/16/19 14:09:00 10/16/19 14:09:00 Procedure Mitral Valve Mitral Valve Mitral Valve Replacement Redo, Replacement Redo, Replacement Redo, Transesophageal Transesophageal Transesophageal Echocardiogram Echocardiogram Echocardiogram Other Attendee Superficial Wound Closed By: Last Modified By: Florinda Urban, Florinda Reyna, RN Florinda Urban, CROW 10/16/19 14:08:30 10/16/19 14:08:30 10/16/19 14:09:15 [facility] IntraOp Case Attendance Audit 10/16/19 14:09:15 Information Broker: PROFITDE Modifier: PROFITDE <+> 9 Procedure 10/16/19 14:08:30 Information Broker: PROFITDE Modifier: PROFITDE 1 <+> Time Out 1 <*> Procedure Mitral Valve Replacement Redo, Transesophageal Echocardiogram 2 <*> Procedure Mitral Valve Replacement Redo, Transesophageal Echocardiogram 3 <*> Procedure Mitral Valve Replacement Redo, Transesophageal Echocardiogram 4 <*> Procedure Mitral Valve Replacement Redo, Transesophageal Echocardiogram 5 <*> Procedure Mitral Valve Replacement Redo, Transesophageal Echocardiogram 6 <*> Procedure Mitral Valve Replacement Redo, Transesophageal Echocardiogram 7 <*> Procedure Mitral Valve Replacement Redo, Transesophageal Echocardiogram 8 <*> Procedure Mitral Valve Replacement Redo, Transesophageal Echocardiogram 10 <*> Procedure Mitral Valve Replacement Redo, Transesophageal Echocardiogram 11 <+> Time Out 11 <*> Procedure Mitral Valve Replacement Redo, Transesophageal Echocardiogram 12 <*> Procedure Mitral Valve Replacement Redo, Transesophageal Echocardiogram 13 <*> Procedure Mitral Valve Replacement Redo, Transesophageal Echocardiogram 14 <*> Procedure Mitral Valve Replacement Redo, Transesophageal Echocardiogram 15 <*> Procedure Mitral Valve Replacement Redo, Transesophageal Echocardiogram 16 <*> Procedure Mitral Valve Replacement Redo, Transesophageal Echocardiogram 17 <*> Procedure Mitral Valve Replacement Redo, Transesophageal Echocardiogram 18 <+> Time Out 18 <*> Procedure Mitral Valve Replacement Redo, Transesophageal Echocardiogram 19 <+> Time Out 19 <*> Procedure Mitral Valve Replacement Redo, Transesophageal Echocardiogram 20 <+> Time Out 20 <*> Procedure Mitral Valve Replacement Redo, Transesophageal Echocardiogram 21 <+> Time Out 21 <*> Procedure Mitral Valve Replacement Redo, Transesophageal Echocardiogram 22 <+> Time Out 22 <*> Procedure Mitral Valve Replacement Redo, Transesophageal Echocardiogram 23 <+> Time Out 23 <*> Procedure Mitral Valve Replacement Redo, Transesophageal Echocardiogram 24 <+> Time Out 24 <*> Procedure Mitral Valve Replacement Redo, Transesophageal Echocardiogram 10/16/19 13:54:07 Information Broker: PROFITDE Modifier: PROFITDE 12 <+> Time Out 12 <*> Procedure Mitral Valve Replacement Redo, Transesophageal Echocardiogram <+> 23 Case Attendee <+> 23 Role Performed <+> 23 Time In <+> 23 Procedure <+> 24 Case Attendee <+> 24 Role Performed <+> 24 Time In <+> 24 Procedure 10/16/19 13:07:44 Information Broker: PROFITDE Modifier: PROFITDE 8 <+> Time Out 8 <*> Procedure Mitral Valve Replacement Redo, Transesophageal Echocardiogram 10/16/19 13:00:26 Information Broker: PROFITDE Modifier: PROFITDE <+> 22 Case Attendee <+> 22 Role Performed <+> 22 Time In <+> 22 Procedure 10/16/19 12:58:58 Information Broker: PROFITDE Modifier: PROFITDE 16 <+> Time Out 16 <*> Procedure Mitral Valve Replacement Redo, Transesophageal Echocardiogram 17 <+> Time Out 17 <*> Procedure Mitral Valve Replacement Redo, Transesophageal Echocardiogram 10/16/19 12:55:00 Information Broker: PROFITDE Modifier: PROFITDE 16 <*> Procedure Mitral Valve Replacement Redo, Transesophageal Echocardiogram <+> 19 Case Attendee <+> 19 Role Performed <+> 19 Time In <+> 19 Procedure <+> 20 Case Attendee <+> 20 Role Performed <+> 20 Time In <+> 20 Procedure <+> 21 Case Attendee <+> 21 Role Performed <+> 21 Time In <+> 21 Procedure 10/16/19 12:16:05 Information Broker: PROFITDE Modifier: PROFITDE 6 <+> Time Out 6 <*> Procedure Mitral Valve Replacement Redo, Transesophageal Echocardiogram 10 <+> Time Out 10 <*> Procedure Mitral Valve Replacement Redo, Transesophageal Echocardiogram 13 <+> Time Out 13 <*> Procedure Mitral Valve Replacement Redo, Transesophageal Echocardiogram 14 <+> Time Out 14 <*> Procedure Mitral Valve Replacement Redo, Transesophageal Echocardiogram <+> 15 Case Attendee <+> 15 Role Performed <+> 15 Time In <+> 15 Time Out <+> 15 Procedure <+> 16 Case Attendee <+> 16 Role Performed <+> 16 Time In <+> 16 Procedure <+> 17 Case Attendee <+> 17 Role Performed <+> 17 Time In <+> 17 Procedure <+> 17 Other Attendee <+> 18 Case Attendee <+> 18 Role Performed <+> 18 Time In <+> 18 Procedure 10/16/19 11:09:36 Information Broker: PROFITDE Modifier: PROFITDE <+> 14 Case Attendee <+> 14 Role Performed <+> 14 Time In <+> 14 Procedure 10/16/19 11:09:12 Information Broker: PROFITDE Modifier: PROFITDE <+> 13 Case Attendee <+> 13 Role Performed <+> 13 Time In <+> 13 Procedure 10/16/19 10:42:02 Information Broker: PROFITDE Modifier: PROFITDE <+> 12 Case Attendee <+> 12 Role Performed <+> 12 Time In <+> 12 Procedure 10/16/19 10:19:46 Information Broker: PROFITDE Modifier: PROFITDE 2 <+> Time Out 2 <*> Procedure Mitral Valve Replacement Redo, Transesophageal Echocardiogram 10/16/19 10:17:50 Information Broker: PROFITDE Modifier: PROFITDE <+> 11 Case Attendee <+> 11 Role Performed <+> 11 Time In <+> 11 Procedure 10/16/19 10:09:19 Information Broker: PROFITDE Modifier: PROFITDE 4 <+> Time Out 4 <*> Procedure Mitral Valve Replacement Redo, Transesophageal Echocardiogram <+> 9 Case Attendee <+> 9 Role Performed <+> 9 Time In <+> 9 Time Out <+> 10 Case Attendee <+> 10 Role Performed <+> 10 Time In <+> 10 Procedure 10/16/19 09:26:05 Information Broker: PROFITDE Modifier: PROFITDE <+> 1 Procedure <+> 3 Procedure <+> 5 Time Out <+> 5 Procedure <+> 7 Time Out <+> 7 Procedure <+> 8 Procedure [facility] IntraOp Case Times Entry 1 Patient In Room Time 10/16/19 07:31:00 Out Room Time 10/16/19 14:09:00 Anesthesia Start Time 10/16/19 07:31:00 Stop Time 10/16/19 14:09:00 Anesthesia Ready 10/16/19 07:31:00 Surgery / Procedure Times Start Time 10/16/19 09:01:00 Stop Time 10/16/19 14:01:00 Last Modified By: Florinda Urban RN 10/16/19 14:08:17 [facility] IntraOp Case Times Audit 10/16/19 14:08:17 Information Broker: PROFITDE Modifier: PROFITDE <+> 1 Out Room Time <+> 1 Stop Time <+> 1 Stop Time 10/16/19 09:06:41 Information Broker: PROFITDE Modifier: PROFITDE <+> 1 Start Time [facility] IntraOp Cautery Entry 1 ESU Identification Cautery Type Monopolar ESU Cautery Type SURGEON OPERATES Comments SETTINGS ID Number [id number] ID Type Hospital Number Cautery Settings Cut Setting 1 Coag Setting 30 ESU Grounding Pad Ground Pad Type Adult Grounding Pad Site Left buttock Grounding Pad Florinda Urban RN Applied By Grounding Pad Site Warm, Dry, Intact Skin Condition Before Cautery Site Skin Condition WDL Before Comment Grounding Pad Site Unchanged Skin Condition After Cautery Site Skin Condition WDL After Comment Last Modified By: Florinda Urban RN 10/16/19 09:05:03 [facility] IntraOp Communication Entry 1 Entry 2 Entry 3 Communication To Family/Significant other Other Other Comment notified of KAYLYN IN CTVU INFORMED KYRA IN CTVU INFORMED incision, phone # [phone] OF INCISION TIME ON PUMP [phone] Communication By Florinda Urban RN Proffitt, Debbie, RN Proffitt, Debbie, RN Date and Time 10/16/19 09:06:00 10/16/19 09:07:00 10/16/19 10:40:00 Last Modified By: Florinda Urban RN Proffitt, Debbie, RN Proffitt, Debbie, RN 10/16/19 09:08:12 10/16/19 09:08:12 10/16/19 10:48:37 Entry 4 Entry 5 Entry 6 Communication To Other Other Family/Significant other Comment CTVU INFORMED TO DEION IN CTVU UPDATED PATIENT'S MOTHER LEAVE/KEEP RESCUE PADS INFORMED OFF PUMP ON PATIENT Communication By MARRY LUU RN Proffitt, Debbie, RN Proffitt, Debbie, RN Date and Time 10/16/19 12:10:00 10/16/19 12:44:00 10/16/19 13:34:00 Last Modified By: Florinda Urban RN Proffitt, Debbie, RN Proffitt, Debbie, RN 10/16/19 12:24:55 10/16/19 12:45:25 10/16/19 13:35:19 Entry 7 Communication To Comment BLOOD COMPONENTS SENT TO CTVU PER DR. TURNER'S INSTRUCTION Communication By Date and Time Last Modified By: Florinda Urban RN 10/16/19 14:15:04 [facility] IntraOp Communication Audit 10/16/19 14:15:04 Information Broker: PROFITDE Modifier: PROFITDE <+> 7 Comment 10/16/19 13:35:19 Information Broker: PROFITDE Modifier: PROFITDE <+> 6 Communication By <+> 6 Date and Time <+> 6 Communication To <+> 6 Comment 10/16/19 12:45:25 Information Broker: PROFITDE Modifier: PROFITDE <+> 5 Communication By <+> 5 Date and Time <+> 5 Communication To <+> 5 Comment 10/16/19 12:24:55 Information Broker: PROFITDE Modifier: PROFITDE <+> 4 Communication By <+> 4 Date and Time <+> 4 Communication To <+> 4 Comment 10/16/19 10:48:37 Information Broker: PROFITDE Modifier: PROFITDE <+> 3 Communication By <+> 3 Date and Time <+> 3 Communication To <+> 3 Comment [facility] IntraOp Counts Verification Entry 1 Entry 2 Entry 3 Procedure Mitral Valve Mitral Valve Mitral Valve Replacement Redo Replacement Redo Replacement Redo Count Info Count Type Sponge, Sharps, Instrument Sponge, Sharps, Miscellaneous Instrument, Miscellaneous Counts Verification Baseline/pre-procedure Baseline/pre-procedure Before wound closure Sequence Count Results Not Applicable Not Applicable Correct, surgeon notified If Incorrect or Waived complete the Counts Action Taken form: If Intentional Retention, complete the Intential Retention form: Counts Performed By Count Performed By JOSEFA CADET ROY SKIDMORE, ROY (Scrub) Count Performed By MARRY LUU RN Proffitt, Debbie, RN Proffitt, Debbie, RN (RN) Last Modified By: Florinda Urban RN Proffitt, Debbie, RN Proffitt, Debbie, RN 10/16/19 07:59:56 10/16/19 07:59:56 10/16/19 12:58:35 [facility] IntraOp Counts Verification Audit 10/16/19 12:58:35 Information Broker: PROFITDE Modifier: PROFITDE <+> 3 Procedure <+> 3 Count Type <+> 3 Counts Verification Sequence <+> 3 Count Results <+> 3 Count Performed By (Scrub) <+> 3 Count Performed By (RN) [facility] IntraOp Counts Final Entry 1 Procedure Mitral Valve Replacement Redo Final Count Info Count Type Sponge, Sharps, Miscellaneous Counts Verification Skin Closure/end of Sequence procedure Count Results Correct, surgeon notified Counts Performed By Count Performed By JOSEFA CADET (Scrub) Count Performed By Florinda Urban RN (RN) Last Modified By: Florinda Urban RN 10/16/19 13:44:57 [facility] IntraOp Cultures and Spec Summary Entry 1 Cultrures and Specimens Specimen Ordered: Yes Test(s) Routine/Path-Lab Requested/Final Disposition Last Modified By: Florinda Urban RN 10/16/19 12:16:24 [facility] IntraOp Delays Entry 1 Delay Reason Ancillary department delay Duration 31 Minute(s) Comment PATIENT LOCATION HAD CHANGED OVER THE WEEKEND, NO LONGER IN INTENSIVE CARE Last Modified By: Florinda Urban RN 10/16/19 08:02:55 [facility] IntraOp Departure from OR Entry 1 Integumentary Assessment Integumentary WDL with patient Assessment WDL specific variances Patient's Normal SURGICAL SITES Integumentary Variance(s) Transfer/Handoff Transfer to ICU - Cardiovascular Post-op Transport Bed (including Via specialty) Patient Transport SHARON SETHI, Accompanied by Poultry Culler, ARMANI TURNER MD-REJI, MANUEL CRAWLEY, PA Last Modified By: Florinda Urban RN 10/16/19 14:05:39 [facility] IntraOp Departure from OR Audit 10/16/19 14:05:39 Information Broker: PROFITDE Modifier: PROFITDE 1 <*> Patient Transport Accompanied by SHIRA HAILE MD-ANS [facility] IntraOp Drains and Tubes Entry 1 Entry 2 Device Type Chest Tube Luke Drain Size 36 Fr. straight 10 MM Drain/Tube Activity Tube Tube secured/stabilized secured/stabilized, Inserted Drain/Tube Suction Drain/Tube Drainage Device Location Mediastinum Mediastinum Method of Drainage Continuous suction Compression Chest Tubes Water-Seal 20 cm suction Connectivity Tube Dressing Dry, Intact Dry, Intact Condition Surgical Drains and Tubes Irrigation Comment Last Modified By: Florinda Urban RN Proffitt, Debbie, RN 10/16/19 10:27:52 10/16/19 10:27:52 [facility] IntraOp Dressing and Packing Entry 1 Type Dressing Location Chest Wound Dressing Item Occlusive dressing Applied By SHANNAN CASTILLO PA-UNK Other Comments AQUACEL Last Modified By: Florinda Urban RN 10/16/19 10:28:14 [facility] IntraOp Fire Risk Assessment Entry 1 Fire Info Surgical Site or 1- Yes Incision Above the Xyphoid Open O2 Source 1- Yes (Mask or Cannula) Available Ignition 1- Yes (ESU, Laser, Light Source) Fire Risk 3 Assessment Score Fire Score Fire Risk Yes Assessment Complete Fire Risk Florinda Urban RN Assessment Verified By Fire Risk 10/16/19 08:03:00 Assessment Verified Date/Time Fire Risk High Risk Protocol Yes Implemented Last Modified By: Florinda Urban RN 10/16/19 09:26:41 [facility] IntraOp Fire Risk Assessment Audit 10/16/19 09:26:41 Information Broker: PROFITDE Modifier: PROFITDE <+> 1 Fire Risk Assessment Complete [facility] IntraOp General Case Product Development Technician 1 Case Information OR OR 15 [facility] Case Level 2 Room Verified Yes Wound Class I - Clean Specialty SN Cardio Thoracic Anesthesia Type General ASA Class 4 Diagnosis Preop Diagnosis MITRAL VALVE DISEASE, S/P REPAIR Postop Same As Preop No Postop Diagnosis SEE SURGEON'S POSTOP NOTES Last Modified By: Florinda Urban RN 10/16/19 10:37:38 [facility] IntraOp General Case Data Audit 10/16/19 10:37:38 Information Broker: PROFITDE Modifier: PROFITDE <+> 1 Preop Diagnosis 10/16/19 10:07:36 Information Broker: PROFITDE Modifier: PROFITDE <+> 1 ASA Class <+> 1 Anesthesia Type <+> 1 Postop Same As Preop <+> 1 Postop Diagnosis <+> 1 Room Verified [facility] IntraOp Implant Log Entry 1 Type Implant (Synthetic) Implant Log Implant Type Valve(s) Implant VLV MITRAL ON-X Identification [id number] Description Implant Quantity 1 Implant Site MITRAL Implant [id number] Identification Serial Number Implant [employer] Identification Sanitation Truck Driver Name: Implant ONX- Identification Catalog Number Implant Size MITRAL Implant Has an Yes Expiration Date Implant Expiration 06/22/25 Date Tissue Implant Last Modified By: Florinda Urban RN 10/16/19 11:34:50 [facility] IntraOp Intraoperative Assessment Entry 1 Handoff Report CHI Grullon RN Received from Handoff Reported to Florinda Urban RN Handoff Method Bedside/Face to face, Online nursing summary Valid History / Yes Physical in Chart Preoperative Yes Checklist Reviewed/Evaluated Allergies Reviewed Yes Patient is Latex No Sensitive Isolation Not applicable Precautions Noted Level of WDL Consciousness (WDL = Alert, Oriented to Person, Place, and Time) Patient's Normal WDL Level of Consciousness Variance(s) Skin Assessment Yes Verified Present Upon IVs Arrival to OR Last Modified By: Florinda Urban RN 10/16/19 09:26:34 [facility] IntraOp Intraoperative Equipment Entry 1 Equipment Intraop Monitoring Electrocardiogram Five lead placement (ECG) Electrode Placement Blood Pressure Arterial Pressure Line Source Blood Pressure Arterial Location Pulse Oximeter Hand, left Probe Site Antiembolic Devices Scopes Photo/Video Documentation Last Modified By: Florinda Urban RN 10/16/19 10:17:24 [facility] IntraOp Medication Admin Entry 1 Entry 2 Entry 3 Medication/Irrigant Lactated Ringers 1000ml lidocaine 1% 30ml vial NS 0.9% 50ml injection irrigation bag - - [id number] - [id number] Combo Med List Time Administered Route of IRRIGATIO/SL.RUST LOCAL FLUSH Administration Dose Dose 6 30 Unit of Measure ml ml Volume Administered By ALESHA EMERY MD-CAT SHANNAN CASTILLO PA-UNK SHANNAN CASTILLO PA-UNK Procedure Irrigation Irrigant Volume In Irrigant Volume Out Last Modified By: Florinda Urban RN Proffitt, Debbie, RN Proffitt, Debbie, RN 10/16/19 10:27:28 10/16/19 10:27:28 10/16/19 10:27:28 Entry 4 Entry 5 Medication/Irrigant thrombin 5000units Gelfoam 1Gm absorbable topical kit powder - [id number] (recombinant) - [id number] Combo Med List 1 - Combo Med 1 - Combo Med Time Administered Route of TOPICAL TOPICAL Administration Dose Dose 5000 1 Unit of Measure units gram Volume Administered By ALESHA EMERY MD-CAT ALESHA EMERY MD-CAT Procedure Irrigation Irrigant Volume In Irrigant Volume Out Last Modified By: Florinda Urban RN Proffitt, Debbie, RN 10/16/19 10:27:28 10/16/19 10:27:28 [facility] IntraOp Patient Positioning Entry 1 Procedure Mitral Valve Replacement Redo Body Position Supine Left Arm Position Tucked and padded at side Right Arm Position Tucked and padded at side Left Leg Position Uncrossed, parallel Right Leg Position Uncrossed, parallel Feet Uncrossed Yes Pressure Points Yes Checked Device Position Tempurpedic mattress pad, foam cui headrest, foam ulnar nerve protectors, wedge leg positioner, safety belt pre-prep, Positioned By Florinda Urban RN, SHIRA HAILE MD-ANS, MARRY LUU RN, ALESHA EMERY MD-CAT Position Verified Positioning Yes Verified by Anesthesia Positioning Yes Verified by Surgeon Last Modified By: Florinda Urban RN 10/16/19 07:59:20 [facility] IntraOp Sign In Entry 1 Patient, Site, Yes Procedure Identified Surgical Consent Yes Confirmed Relevant Surgical Yes Documents Available Surgical Site N/A Marked by person performing procedure Anesthesia Machine Yes Check Completed Medication Checks Yes Completed Allergies Yes Airway Difficult Yes Airway/Aspiration Risk Difficult Yes Airway/Aspiration Intervention Equipment Available Blood Loss Risk Yes Blood Loss Yes Intervention Equipment Prepared and Ready Blood Identifiers Yes Verified Per Policy Hypothermia Risk Yes Warming Measures Yes Taken Last Modified By: Florinda Urban RN 10/16/19 10:18:04 [facility] IntraOp Sign Out Entry 1 RN Confirmation Surgical Yes Procedure(s) Identified Instrument, Sponge Yes and Sharps Counts Correct/Documented Equipment Problems N/A Documented Specimen Labeled Yes Correctly Urinary Catheter Yes Documented in IView Wood[place] Patient Yes Recovery Concerns Reviewed with Anesthesia Provider, Surgeon and RN [place] Patient Yes Management Concerns Reviewed with Anesthesia Provider, Surgeon and RN Safety Checklist Yes Elements Complete? RN Sign Out Florinda Urban RN Signature RN Sign Out 10/16/19 14:08:00 Signature Date/Time Plan of Care Outcome - Fire Risk OUTCOME STATEMENT: Goal met Patient is free from injury related to surgical fire Plan of Care Outcome - Pt Positioning OUTCOME STATEMENT: Goal met Absence of signs and symptoms of positioning injury. Plan of Care Outcome - Skin Prep OUTCOME STATEMENT: Goal met Intraoperative care is consistent with measures to prevent infection Plan of Care Outcome - Xray/Images OUTCOME STATEMENT: Goal met Absence of observable signs or symptoms of radiation injury Plan of Care Outcome - Counts OUTCOME STATEMENT: Goal met Absence of signs and symptoms of injury related to extraneous objects Last Modified By: Florinda Urban RN 10/16/19 14:08:52 [facility] IntraOp Skin Prep Entry 1 Entry 2 Procedure Mitral Valve Mitral Valve Replacement Redo Replacement Redo Prescribed Yes Yes Pre-Surgical Prep Completed Prep Area CHEST, ROINS THIGHS Chin to toes, legs circumferentially Intraop Prep Integumentary WDL WDL Assessment WDL WDL Patient Exceptions Patients Normal WDL WDL Integumentary Variance(s) Integumentary Assessment Comment Prep Agents Iodine Iodine Prep by ALESHA EMERY MD-CAT ALTIZER, LISA E, RN Skin Prep Comment Marie URBAN RN Hair Removal Methods Hair Removal Site Hair Removal By Last Modified By: Florinda Urban RN Proffitt, Debbie, RN 10/16/19 10:19:31 10/16/19 10:19:31 [facility] IntraOp Surgical Procedures Entry 1 Entry 2 Procedure Mitral Valve Transesophageal Replacement Redo Echocardiogram Modifiers Additional (REDO MITRAL VALVE PER DR. HAILE Procedure REPLACEMENT, RIA) Description Primary Procedure Yes No Primary Surgeon ALESHA EMERY MD-ALESHA RAINEY MD-NUZHAT Start 10/16/19 09:01:00 10/16/19 09:01:00 Stop 10/16/19 14:01:00 10/16/19 14:01:00 Physician States Cecum Reached Anesthesia Type General General Specialty SN Cardio Thoracic SN Cardio Thoracic Wound Class I - Clean II - Clean-Contaminated Last Modified By: Florinda Urban RN Proffitt, Debbie, RN 10/16/19 14:08:24 10/16/19 14:08:24 [facility] IntraOp Surgical Procedures Audit 10/16/19 14:08:24 Information Broker: PROFITDE Modifier: PROFITDE <+> 1 Stop <+> 2 Stop 10/16/19 12:18:20 Information Broker: PROFITDE Modifier: PROFITDE 1 <*> Procedure Mitral Valve Replacement Redo 2 <*> Procedure Transesophageal Echocardiogram 2 <*> Wound Class II - Clean-Contaminated 2 <+> Additional Procedure Description [facility] IntraOp Temp Regulation Devices Entry 1 Entry 2 Temp Regulation Temperature Forced Air Warming Warm blankets Regulation Device device Temperature 506916 Regulation Device Serial/Unit Number Temperature Lower body Full body Regulation Site Temperature Device 43 DEGREES C Setting Temperature Florinda Urban RN Proffitt, Debbie, RN Regulation Device Applied by Temperature ON WHEN WARMING PATIENT ON ARRIVAL AND Regulation Comment DEPARTURE FROM THE O.R. Last Modified By: Florinda Urban RN Proffitt, Debbie, RN 10/16/19 10:30:37 10/16/19 10:30:37 [facility] IntraOP Time Out Entry 1 Procedure to be Mitral Valve Performed Replacement Redo, Transesophageal Echocardiogram Time Out Time Out Pause Time 10/16/19 09:00:00 All activity Yes suspended (unless life threatening emergency) Team Verbally Correct patient Confirms Information identity, Consent form is present and accurate, Agreement on the procedure to be done, Correct patient position, Relevant images/results properly labeled/appropriately displayed, Confirm antibiotics have been administered, Confirm the skin prep has dried, Confirm prosthesis/implant/devic e is present, Performed in location of procedure after prepped/draped, Performed before each procedure if multiple procedures, Reconcile problems if responses among team members differ Time Out Comment CEFAZOLIN 2 GRAMS IV GIVEN AT [address] HAILE Antibiotic Yes Prophylaxis Administered Or In Progress Within the Last 60 Minutes Beta Que Yes Administered Venous Yes Thromboembolism Prophylaxis Required Anticipated Critical Events Surgeon None expected Anesthesia Provider Patient specific concerns Nursing Assures Sterility of instruments Essential Imaging N/A Labeled and Displayed Last Modified By: Florinda Urban RN 10/16/19 10:25:43 [facility] IntraOP Time Out Audit 10/16/19 10:25:43 Information Broker: PROFITDE Modifier: PROFITDE <+> 1 Beta Que Administered <+> 1 All activity suspended (unless life threatening emergency) <+> 1 Venous Thromboembolism Prophylaxis Required <+> 1 Antibiotic Prophylaxis Administered Or In Progress Within the Last 60 Minutes <+> 1 Time Out Pause Time <+> 1 Procedure to be Performed <+> 1 Time Out Comment <+> 1 Team Verbally Confirms Information Case Comments <None> Finalized By: MARRY LUU RN Document Signatures Signed By: Florinda Urbna RN 10/16/19 14:15 [facility] 10/18/19 09:25 [facility] CRUMP 10/18/19 11:39 MARRY LUU RN 02/08/20 14:45 Unfinalized History Date/Time Username Reason for Unfinalizing Freetext Reason for Unfinalizing 10/18/19 09:24 WATTSDR Correct Billing 10/18/19 11:37 WATTSDR Correct Billing 02/08/20 14:44 ALTIZEL Correct Documentation documented in this encounter Plan of Treatment Upcoming Encounters Date Type Department Care Team (Late st Contact Info) Description 04/12/2025 7:30 AM EDT Hospital Encounter [facility] Operating Room 1 [place] [phone] Bill Graham MD [address] [place] [address] [address] [place] [address] 04/12/2025 7:30 AM EDT Anesthesia Event [facility] Operating Room 1 [place] [phone] Shira Haile MD [address] [place] [address] 04/12/2025 7:30 AM EDT - 04/12/2025 8:55 AM EDT Surgery [facility] Operating Room 1 [place] [address] Bill Graham MD [address] [facility] [address] [place] [address] (LAPAROSCOPIC PERITONEAL DIALYSIS CATHETER INSERTION) Scheduled Procedures Name Priority Associated Diagnoses Date/Ti me LAPAROSCOPY, WITH PERITONEAL DIALYSIS CATHETER INSERTION Chronic kidney disease, stage V (HCC) 04/12/2025 7:30 AM EDT documented as of this encounter Visit Diagnoses Not on filedocumented in this encounter Care Teams Gasoline Engine Assembler Relationship Specialty Start Date End Date Félix Monroe, FILTER SCREEN CLEANER [address] [facility] [address] [place] [address] PCP - General Nurse Practitioner 08/25/22 documented as of this encounter
--- OUTSIDE RECORDS SUMMARY | 2025-04-11 11:03 | XMS_ITS | Encounter Summary ---
Author Organization [employer] ([place], [place], [place], [place]) Address [address] [address] Care Team Providers Care Remote Sensing Research Scientist Name Role Phone Félix Monroe APRN Primary Care Provider [phone] Encounter Details Date Type Department Care Team (Late st Contact Info) Description 10/12/2019 Transcribed Document [facility] Family Medicine [address] [place] [address] ProviderMaria Esther MD [address] [place] [address] Social History Tobacco Use Types Packs/Day Years Used Date Smoking Tobacco: Never Assessed Comments Unknown Sex and Gender Information Value Date Recorded Sex Assigned at Not on file Legal Sex Female 6:53 PM CDT Gender Identity Not on file Sexual Orientation Not on file documented as of this encounter Miscellaneous Notes * Cerner Conversion Note - Maria Esther ProviderMD - 10/12/2019 10:25 AM CDT UM Authorization Entered On: 10/12/2019 10:25 EDT Performed On: 10/12/2019 10:25 EDT by JESSICA GUIDO RN-Utilization Review Primary Insurance Authorization Authorization and Policy Numbers : Insurance 1 Health Plan: [place] [employer] Policy Number: [id number] Authorization Number: Insurance Primary Name : [place] [employer] Policy Number: [id number] Authorization Status-Primary : Awaiting callback Authorized Service Begin Date-Primary : 10/11/2019 EDT Historical Authorization Comments-Primary : No Authorization Comments Found JESSICA GUIDO RN-Utilization Review - 10/12/2019 10:25 EDT Electronically signed by Nir, Hilario Conversion Electronic Instrument Trades Worker Cerner at 10/28/2022 6:59 PM CDT documented in this encounter Plan of Treatment Upcoming Encounters Date Type Department Care Team (Late st Contact Info) Description 04/12/2025 7:30 AM EDT Hospital Encounter [facility] Operating Room 1 [place] [address] [place] [address] [place] [address] [address] [place] [address] 04/12/2025 7:30 AM EDT Anesthesia Event [facility] Operating Room 1 [place] [address] Lucio Szymanski MD [address] [place] [address] 04/12/2025 7:30 AM EDT - 04/12/2025 8:55 AM EDT Surgery [facility] Operating Room 1 [place] [address] [place] [address] [place] [address] [address] (LAPAROSCOPIC PERITONEAL DIALYSIS CATHETER INSERTION) Scheduled Procedures Name Priority Associated Diagnoses Date/Ti me LAPAROSCOPY, WITH PERITONEAL DIALYSIS CATHETER INSERTION Chronic kidney disease, stage V (HCC) 04/12/2025 7:30 AM EDT documented as of this encounter Visit Diagnoses Not on filedocumented in this encounter Care Teams Remote Sensing Research Scientist Relationship Specialty Start Date End Date Félix Monroe, MANAGED CARE MANAGER [address] [facility] [address] [place] [address] PCP - General Nurse Practitioner 08/25/22 documented as of this encounter
--- OUTSIDE RECORDS SUMMARY | 2025-04-11 11:03 | XMS_ITS | Encounter Summary ---
Author Organization [employer] ([place], [place], [place], [place]) Address [address] [address] Care Team Providers Care Billing Spec Name Role Phone Félix Monroe APRN Primary Care Provider [phone] Encounter Details Date Type Department Care Team (Late st Contact Info) Description 10/12/2019 Transcribed Document [facility] Family Medicine [address] [place] [address] ProviderMaria Esther MD [address] [place] [address] Social History Tobacco Use Types Packs/Day Years Used Date Smoking Tobacco: Never Assessed Comments Unknown Sex and Gender Information Value Date Recorded Sex Assigned at Not on file Legal Sex Female 6:53 PM CDT Gender Identity Not on file Sexual Orientation Not on file documented as of this encounter Miscellaneous Notes * Cerner Conversion Note - Maria Esther Reyes MD - 10/12/2019 10:39 AM CDT Initial Discharge Planning Entered On: 10/12/2019 10:42 EDT Performed On: 10/12/2019 10:39 EDT by FAISAL HINSON, RN-Communications Project Lead Initial Assessment I Previously Documented Living Environment : No qualifying data available. Living Situation : Home Patient Lives With : Spouse Is the Patient a Caregiver at Home? 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 Emergency Contact #2 Phone Number : . Emergency Contact #2 Relationship : . Enter Doctors Name : Susu García Does Patient have PCP Listed? : Yes Medical Durable Power of Premium Auditor Name : None Legal Guardian : No Is Guardianship Needed : No FAISAL HINSON RN-Communications Project Lead - 10/12/2019 10:39 EDT Initial Assessment II Sensory and Motor Deficits : None Current Home Treatments and Equipment : None FAISAL HINSON RN-Communications Project Lead - 10/12/2019 10:39 EDT Discharge Needs I Anticipated Discharge Date : 10/14/2019 EDT Anticipated Discharge To, CM : Home independently, Home with family care Current Home Treatment/Equipment : Current Home Treatment/Equipment No qualifying data available. Post Acute/Home Treatments : None Documentation Status Complete : Yes FAISAL HINSON RN-Communications Project Lead - 10/12/2019 10:39 EDT Discharge Needs II Professional Skilled Services : Professional Skilled Services No qualifying data available. Needs Assistance with Transportation : No FAISAL HINSON RN-Communications Project Lead - 10/12/2019 10:39 EDT Narrative Note Narrative Note : Discharged from [facility] on 09/[address] Beyer r/t MV annuloplasty. Transferred from [facility] r/t bld in her urine and hgb of 5 and extensive cardiac hx. Cards/onc consulted Spoke to pt at and informed of cm role. Pt is employed FT in [employer], lives with and denies use of dme/outpt services. NOK is , Bola Stiles DCP-home with . FAISAL HINSON RN-Communications Project Lead - 10/12/2019 10:39 EDT Electronically signed by [facility] Conversion Zyglo Inspector Cerner at 10/28/2022 7:15 PM CDT documented in this encounter Plan of Treatment Upcoming Encounters Date Type Department Care Team (Late st Contact Info) Description 04/12/2025 7:30 AM EDT Hospital Encounter [facility] Operating Room 1 [place] [address] Bill Graham MD [address] [place] [address] [address] [place] [address] 04/12/2025 7:30 AM EDT Anesthesia Event [facility] Operating Room 1 [place] [phone] Lucio Szymanski MD [address] [place], [place] [id number] 04/12/2025 7:30 AM EDT - 04/12/2025 8:55 AM EDT Surgery [facility] Operating Room 1 [place] [address] [place] [address] [place] [address] [address] [place] [id number] (LAPAROSCOPIC PERITONEAL DIALYSIS CATHETER INSERTION) Scheduled Procedures Name Priority Associated Diagnoses Date/Ti me LAPAROSCOPY, WITH PERITONEAL DIALYSIS CATHETER INSERTION Chronic kidney disease, stage V (HCC) 04/12/2025 7:30 AM EDT documented as of this encounter Visit Diagnoses Not on filedocumented in this encounter Care Teams Billing Spec Relationship Specialty Start Date End Date Félix Monroe, MATH TUTOR [address] [facility] [address] [place] [address] PCP - General Nurse Practitioner 08/25/22 documented as of this encounter
--- OUTSIDE RECORDS SUMMARY | 2025-04-11 11:03 | XMS_ITS | Encounter Summary ---
Author Organization [employer] ([place], [place], [place], [place]) Address [address] [place] [address] Care Team Providers Care Galvanometer Assembler Name Role Phone Monroe Félix Francisco RODRIGUEZ Primary Care Provider [phone] Encounter Details Date Type Department Care Team (Late st Contact Info) Description 10/17/2019 Transcribed Document [facility] Family Medicine [address] [place] [address] ProviderMaria Esther MD [address] [place], [place] [address] Social History Tobacco Use Types Packs/Day Years Used Date Smoking Tobacco: Never Assessed Comments Unknown Sex and Gender Information Value Date Recorded Sex Assigned at Not on file Legal Sex Female 6:53 PM CDT Gender Identity Not on file Sexual Orientation Not on file documented as of this encounter Miscellaneous Notes * Cerner Conversion Note - Maria Esther Reyes MD - 10/17/2019 7:31 AM CDT Patient: CORRIE SMITH Age: 49 years Sex: Female : 1970 Associated Diagnoses: None Author: MISBAH YODER MD-ONC Attachments: None Subjective Chief complaint Chief complaint No new issues. Went to OR yesterday Health Status Allergies Allergies (1) Active Reaction codeine Welts Current medications Medications (48) Active Scheduled: (16) #NaCl 0.9% *FLUSH* inj 10 mL 10 mL, IV Push, Q8H #NaCl 0.9% *FLUSH* inj 10 mL 10 mL, IV Push, Q12H #NaCl 0.9% *FLUSH* inj 10 mL 10 mL, IV Push, Q12H aspirin EC 81 mg tab 81 mg 1 Tab, Oral, Daily carvedilol 25 mg tab 25 mg 1 Tab, Oral, BID epoetin mayra 40,000 units/1 mL inj 40,000 Units 1 mL, SubCutaneous, Weekly famotidine 20 mg/2 mL inj 20 mg 2 mL, IV Push, Q12H hydrALAZINE 25 mg tab 25 mg 1 Tab, Oral, TID mupirocin 2% nasal oint 1 g 1 Application, Nostrils Both, BID mupirocin 2% nasal oint 1 g 1 [...] mg tab 1 Tab, Oral, BID Continuous: (6) D5/NaCl 0.225% 1,000 mL 1,000 mL, IntraVENous, 30 mL/Hr dexmedetomidine 400 mcg + NaCl 0.9% TITRATE 100 mL 100 mL, IntraVENous EPINEPHrine 5 mg + NaCl 0.9% T ITRATE 250 mL 250 mL, IntraVENous insulin regular 100 Units + NaCl 0.9% 100 mL 100 mL, IntraVENous lactated ringers 1,000 mL 1,000 mL, IntraVENous, 20 mL/Hr vasopressin 20 Units + NaCl 0.9% TITRATE 100 mL 100 mL, IntraVENous PRN: (26) #NaCl 0.9% *FLUSH* inj 10 mL 10 mL, IV Push, See Comment #NaCl 0.9% *FLUSH* inj 10 mL 10 mL, IV Push, See Comment #NaCl 0.9% *FLUSH* inj 10 mL 10 mL, IV Push, See Comment #NaCl 0.9% *FLUSH* inj 10 mL 10 mL, IV Push, See Comment acetaminophen 325 mg tab 650 mg 2 Tab, Oral, Q4H acetaminophen 325 mg tab 650 mg 2 Tab, Oral, Q6H acetaminophen/HYDROcodone 325/5 mg tab 2 Tab, Oral, Q4H acetaminophen/oxyCODONE 325/5 mg tab 2 Tab, Oral, Q4H albumin human 5% 25 g/500 mL inj 25 Gram 500 mL, IV Piggyback, Q1H albuterol-ipratropium inh 3 mL 3 mL, Nebulized Inhalation, Q6H albuterol-ipratropium inh 3 mL 3 mL, Nebulized Inhalation, RT_Q4H ALPRAZolam 0.25 mg tab 0.25 mg 1 Tab, Oral, BID cloNIDine 0.1 mg tab 0.1 mg 1 Tab, Oral, Q4H dextrose 50% 25 g/50 mL inj syr 25 Gram 50 mL, IV Push, 1-Time diphenhydrAMINE 25 mg tab 12.5 mg 0.5 Tab, Oral, At Bedtime fluocinonide 0.05% crm 15 g 1 Application, Topical, QID hydrALAZINE 20 mg/1 mL inj 10 mg 0.5 mL, IV Push, Q6H LORazepam 2 mg/mL inj 1 mg 0.5 mL, IV Push, Q4H magnesium sulfate 50% + NaCl 0.9% 50 mL 1 Gram 2 mL, IV Piggyback, 1-Time morphine 2 mg/1 ml inj 2 mg 1 mL, IV Push, Q2H morphine 2 mg/1 ml inj 2 mg 1 mL, IV Push, Q10Min nitroglycerin 0.4 mg tab # 25 btl 0.4 mg 1 Tab, SubLINgual, Q5Min ondansetron 4 mg/2 mL inj 4 mg 2 mL, IV Push, Q4H oxyCODONE 5 mg tab 5 mg 1 Tab, Oral, Q6H potassium chloride 10 mEq 50 mL, IV Piggyback, Q1H promethazine 25 mg/1 mL inj 6.25 mg 0.25 mL, IntraVENous, Q6H Objective General Alert and oriented Eye Pupils are equal, round and reactive to light HENT Normocephalic Neck Supple Respiratory Lungs are clear to auscultation Cardiovascular Regular rhythm Gastrointestinal Soft Non-tender Impression and Plan Assessment and Plan Diagnosis Mitral valve replacemnt. CKD 4. 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 Course Progressing as expected Orders Watch Hgb and give procrit. . documented in this encounter Plan of Treatment Upcoming Encounters Date Type Department Care Team (Late st Contact Info) Description 04/12/2025 7:30 AM EDT Hospital Encounter [facility] Operating Room 1 [place] [address] Bill Graham MD [address] [facility] [address] [place] [address] 04/12/2025 7:30 AM EDT Anesthesia Event [facility] Operating Room 1 [place] [address] Lucio Szymanski MD [address] [place] [address] 04/12/2025 7:30 AM EDT - 04/12/2025 8:55 AM EDT Surgery [facility] Operating Room 1 [place] [address] [place] [address] [place] [address] [address] [place] [address] (LAPAROSCOPIC PERITONEAL DIALYSIS CATHETER INSERTION) Scheduled Procedures Name Priority Associated Diagnoses Date/Ti me LAPAROSCOPY, WITH PERITONEAL DIALYSIS CATHETER INSERTION Chronic kidney disease, stage V (HCC) 04/12/2025 7:30 AM EDT documented as of this encounter Visit Diagnoses Not on filedocumented in this encounter Care Teams Galvanometer Assembler Relationship Specialty Start Date End Date Félix Monroe, CROZE MACHINE OPERATOR [address] [facility] [address] [place] [address] PCP - General Nurse Practitioner 08/25/22 documented as of this encounter
--- OUTSIDE RECORDS SUMMARY | 2025-04-11 11:03 | XMS_ITS | Encounter Summary ---
Author Organization [employer] ([place], [place], [place], [place]) Address [address] [address] Care Team Providers Care Public Bath Attendant Name Role Phone Félix Monroe APRN Primary Care Provider [phone] Encounter Details Date Type Department Care Team (Late st Contact Info) Description 10/17/2019 Transcribed Document [facility] [place] [facility] [place] [address] ProviderMaria Esther MD [address] [place] [address] Social History Tobacco Use Types Packs/Day Years Used Date Smoking Tobacco: Never Assessed Comments Unknown Sex and Gender Information Value Date Recorded Sex Assigned at Not on file Legal Sex Female 6:53 PM CDT Gender Identity Not on file Sexual Orientation Not on file documented as of this encounter Miscellaneous Notes * Cerner Conversion Note - Maria Esther Reyes MD - 10/17/2019 1:02 PM CDT On Going Discharge Planning Entered On: 10/17/2019 13:03 EDT Performed On: 10/17/2019 13:02 EDT by REINA JOHN RN-Care Management Care Management Progress Note Discharge Arrangements : Patient Post-Acute Information Patient Name: CORRIE SMITH Gender: Female : [birth year] Age: 49 Years No Post-Acute Placement(s) Listed No Post-Acute Service(s) Listed No [place] Referral(s) Listed Barriers to Discharge Identified : Clinical Condition of Patient Barriers to Discharge Unresolved : Clinical Condition of Patient REINA JOHN, RN-Care Management - 10/17/2019 13:02 EDT Narrative Progress Note Narrative Progress Note : POD #1 MVR redo. Paced and 90. Daily PT/INR. Plans of transferring to . CM to cont following Historical Progress Note : Day 5 - Pt to OR today for MVR redo surgery requiring hemodynamic monitoring lines; DCP pending progress; anticipate home without needs; will review for OP Cardiac Rehab. ZAINA GUERRERO, Rn-Car Carder - 10/16/19 14:18:55 Cm received information from [facility]. ??m recieved letter and called for verification and spoke to radha. michael allows these home health companies : [facility], [facility], and [facility]. RAKESH PARRA RN-Car Carder - 10/13/19 10:19:59 Cm received information from [facility]. Cm recieved letter and called for verification and spoke to radha. michael allows these home health companies : [facility], [facility], and [facility]. Patient is normally independent . patient still denies need for hh and dme. cm will arrange for any needs at discharge. DCP: home vs hh RAKESH PARRA RN-Car Carder - 10/13/19 10:24:38 REINA JOHN RN-Care Management - 10/17/2019 13:02 EDT documented in this encounter Plan of Treatment Upcoming Encounters Date Type Department Care Team (Late st Contact Info) Description 04/12/2025 7:30 AM EDT Hospital Encounter [facility] Operating Room 1 [place] [address] [place] [address] [place] [address] [address] [place] [address] 04/12/2025 7:30 AM EDT Anesthesia Event [facility] Operating Room 1 [place] [address] Lucio Szymanski MD [address] [place], [place] [phone] 04/12/2025 7:30 AM EDT - 04/12/2025 8:55 AM EDT Surgery [facility] Operating Room 1 [place] [address] Bill Graham MD [address] [facility] [address] [place] [address] (LAPAROSCOPIC PERITONEAL DIALYSIS CATHETER INSERTION) Scheduled Procedures Name Priority Associated Diagnoses Date/Ti me LAPAROSCOPY, WITH PERITONEAL DIALYSIS CATHETER INSERTION Chronic kidney disease, stage V (HCC) 04/12/2025 7:30 AM EDT documented as of this encounter Visit Diagnoses Not on filedocumented in this encounter Care Teams Public Bath Attendant Relationship Specialty Start Date End Date Félix Monroe, EMG TECHNICIAN [address] [facility] [address] [place] [address] PCP - General Nurse Practitioner 08/25/22 documented as of this encounter
--- OUTSIDE RECORDS SUMMARY | 2025-04-11 11:03 | XMS_ITS | Encounter Summary ---
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 [employer] Name Role Phone Fer Félix Singh APRN Primary Care Provider [phone] Encounter Details Date Type Department Care Team (Late st Contact Info) Description 10/11/2019 Transcribed Document [facility] Family Medicine [address] [place] [address] ProviderMaria Esther MD [address], [place] [id number] Social History Tobacco Use Types Packs/Day Years Used Date Smoking Tobacco: Never Assessed Comments Unknown Sex and Gender Information Value Date Recorded Sex Assigned at Not on file Legal Sex Female 6:53 PM CDT Gender Identity Not on file Sexual Orientation Not on file documented as of this encounter Miscellaneous Notes * [employer]ner Conversion Note - Maria Esther Reyes MD - 10/11/2019 5:38 PM CDT Patient: CORRIE SMITH Age: 49 years Sex: Female : 1970 Associated Diagnoses: None Author: MELONIE LAFLEUR JR, PA-C Basic Information PCP: WINSTON GREEN MD-INT Director Of Corporate Sponsorships: None Chief Complaint Marked anemia status post mitral valve annuloplasty 08/29/2019 History of Present Illness 49-year-old female with a PMH of VHD status post mitral valve annuloplasty 2???18???2020, diastolic CHF, prolonged QT, history of TIA, CK D, HTN, HLD and smoker presents to [facility] as a transfer from [facility] for evaluation of recent marked anemia with evidence of hematuria x 2 days status post mitral valve annuloplasty x 2 months. Patient reported to [facility] for evaluation of increased fatigue on exertion in the setting of noticing blood in her urine. She denies chest pain, dizziness or syncope, palpitations, melena, hematochezia or hematemesis. Workup at outside hospital showed significantly elevated BP with SBP > 200, hemoglobin of 5 which improved to 9 overnight after receiving 2 units PRBC, mildly elevated troponin 0.1??4, elevated proBNP greater than 30,000 and creatinine of 3. Currently, patient is resting comfortably in the CTVU, in NAD on Cardene gtt. Review of Systems Constitutional: Negative except as [...] in history of present illness. Health Status Allergies (1) Active Reaction codeine Welts Home Medications (8) Active acetaminophen-HYDROcodone 325 mg-5 [...] 17.2 mg = 2 Tab, Oral, BID Allergies: Allergic Reactions (Selected) Severity Not Documented Codeine- Welts, nausea and hives., Allergies (1) Active Reaction codeine Welts Current medications: (Selected) Inpatient Medications Ordered DuoNeb 0.5 mg-2.5 mg/3 mL inhalation solution: 3 mL, Nebulized Inhalation, Q6H, PRN: Shortness of Breath Pepcid: 20 mg, Oral, Daily Phenergan: 6.25 mg, IntraVENous, Q6H, PRN: Nausea Tylenol: 650 mg, Oral, Q4H, PRN: Other (See Comment) Zofran: 4 mg, IV Push, Q4H, PRN: Nausea Zosyn: 3.375 Gram, IV Piggyback, Q6H cloNIDine: 0.1 mg, Oral, Q4H, PRN: Hypertension doxycycline + Sodium Chloride 0.9% intravenous solution 100 mL: 100 mg, 50 mL/Hr, IV Piggyback, Q12H hydrALAZINE: 10 mg, IV Push, Q6H, PRN: Hypertension morphine: 2 mg, IV Push, Q2H, PRN: Pain (Severe 7-10) niCARdipine injection 25 mg + NaCl 0.9% for drip 250 mL: TITRATE, IntraVENous Prescriptions Prescribed acetaminophen-HYDROcodone 325 mg-5 mg oral tablet: 1 Tab, Oral, Q4H, PRN: Pain (Moderate 4-6), 42 Tab, 0 Refill(s) Documented Medications Documented Requip 1 mg oral tablet: Tab, Oral, At Bedtime, 0 Refill(s) Senokot 8.6 mg oral tablet: 2 Tab, Oral, BID, 0 Refill(s) amLODIPine 5 mg oral tablet: 1 Tab, Oral, Daily, 0 Refill(s) aspirin 81 mg oral delayed release tablet: 1 Tab, Oral, Daily, 0 Refill(s) carvedilol: 25 mg, Oral, BID, 0 Refill(s) nicotine 21 mg/24 hr transdermal film, extended release: 1 Patch, TransDermal, Daily, 0 Refill(s) pantoprazole: 40 mg, Oral, Daily, 0 Refill(s), Medications (11) Active Scheduled: (3) doxycycline hyclate + NaCl 0.9% 100 mL 100 mg, IV Piggyback, Q12H famotidine 20 mg tab 20 mg 1 Tab, Oral, Daily piperacillin-tazobactam 3.375 Gram, IV Piggyback, Q6H Continuous: (1) niCARdipine 25 mg + NaCl 0.9% T [...] mg 0.25 mL, IntraVENous, Q6H Problem list: All Problems NSTEMI, initial episode of care / SNOMED CT 5103341270 / Confirmed At risk for sleep apnea / IMO 11127931 / Confirmed COPD (chronic obstructive pulmonary disease) / SNOMED CT 73362412 / Confirmed CHF, acute on chronic / SNOMED CT 37784488 / Confirmed Class 3 Systolic GERD - Gastro-esophageal reflux disease / SNOMED CT 3646519942 / Confirmed H/O: TIA / SNOMED CT 784438578 / Confirmed History of laparoscopic adjustable gastric banding / SNOMED CT 6465597013 / Confirmed History of obstructive sleep apnea / IMO 04736709 / Confirmed HTN - Hypertension / SNOMED CT 5195547278 / Confirmed Mitral regurgitation / SNOMED CT 08796508 / Confirmed Prolonged QT interval / SNOMED CT 340252254 / Confirmed Pulmonary edema / SNOMED CT 87860857 / Confirmed Restless legs syndrome / SNOMED CT 15984972 / Confirmed RF - Renal failure, Stage 4 / SNOMED CT 3412063257 / Confirmed Sleep apnea-before weight loss surgery / SNOMED CT 472496227 / Confirmed, Active Problems (15) At risk [...] 4 Sleep apnea-before weight loss surgery Histories No education data available. Social & [...] Packs/Tins Daily 2 Month Tobacco Last Used Past Medical History: Active HTN - Hypertension (2296988288) Family History: No family history items have been selected or recorded. Procedure history: lap band in 2008 at 38 Years. bladder tack/sling. hysterectomy. ACL [...] 24 hrs) Last Charted Minimum Maximum Temp 98.6 (OCT 10 15:45) 98.6 (OCT 10 15:45) 98.6 (OCT 10 15:45) Apical HR 93 (OCT 10 16:20) 93 (OCT 10 16:20) 93 (OCT 10 16:20) Mon HR 96 (OCT 10 16:30) 93 (OCT 10 16:15) 100 (OCT 10 15:45) Resp Rate 15 (OCT 10 16:30) 15 (OCT 10 16:15) 20 (OCT 10 15:45) SBP H 150 (OCT 10 16:30) H 143 (OCT 10 16:15) H 150 (OCT 10 15:45) DBP 84 (OCT 10 16:30) 84 (OCT 10 16:30) H 91 (OCT 10 15:45) MAP 110 (OCT 10 16:30) 108 (OCT 10 16:15) 113 (OCT 10 15:45) SpO2 99 (OCT 10 16:30) 98 (OCT 10 15:45) 99 (OCT 10 16:00) General: Alert and oriented, No acute distress. Eye: Pupils are equal, round and reactive to light. HENT: Normocephalic. Neck: Supple, Non-tender, No carotid bruit, No jugular venous distention. Respiratory: Lungs are clear to auscultation, Respirations are non-labored, Breath sounds are equal, Symmetrical chest wall expansion. Cardiovascular: Regular rhythm, No gallop, Tachycardia, Good pulses equal in all extremities, Not Systolic murmur. Gastrointestinal: Soft, Non-tender, Non-distended, Normal bowel sounds. Musculoskeletal: Normal range of motion, Normal strength. Integumentary: Warm, Dry, [place]. Neurologic: Alert, Oriented. Psychiatric: Cooperative, Appropriate mood & affect. Review / Management No qualifying data available Cardiac Markers (Current Encounter/Past 24 Hours) No Cardiac Marker Results Found (Past 24 Hours) Blood Gases (Current Encounter/Past 24 Hours) No Blood Gas Results Found (Past 24 Hours) No Radiology Results Found Results review: Labs (Last four charted values) WBC H 13.0 (OCT 10) HB L 10.1 (OCT 10) HCT L 29.4 (OCT 10) Plt 178 (OCT 10) Lactic 1.2 (OCT 10) PT 11.2 (OCT 10) INR 1.1 (OCT 10) . Echo 07/21/2019 Impression: Normal sized left ventricle. Moderate left ventricular hypertrophy. Visually estimated ejection fraction 50-55%. Abnormal systolic strain pattern. Abnormal diastolic function. Thickened mitral valve leaflets with appearance of rheumatic mitral disease. Severe mitral regurgitation. Mild mitral stenosis. Mild pulmonic stenosis. Severely Dilated left atrium. No masses or thrombi are seen. Impression and Plan IMPRESSION: Marked Anemia and [...] AST 124 Hx of TIA Smoker PLAN; Wean Cardene as appropriate. Start home Coreg 12.5 mg BID. Monitor BP. Eventually restart amlodipine. 1 g IV Mag x 1. Repeat EKG in AM. Avoid QT prolonging drugs. Check proBNP in the AM. Anemia per IM. CTS to see and evaluate MV. Electronically signed by [facility] Conversion Travel Freight And Passenger Agent [employer] at 10/28/2022 7:11 PM CDT documented in this encounter Plan of Treatment Upcoming Encounters Date Type Department Care Team (Late st Contact Info) Description 04/12/2025 7:30 AM EDT Hospital Encounter [facility] Operating Room [address] [place] [address] Bill Graham MD [address] [place] [address] [address] 04/12/2025 7:30 AM EDT Anesthesia Event [facility] Operating Room [address] [place] [address] Lucio Szymanski MD [address] [place] [address] 04/12/2025 7:30 AM EDT - 04/12/2025 8:55 AM EDT Surgery [facility] Operating Room [address] [place] [address] Bill Graham MD [address] [place] [address] [address] (LAPAROSCOPIC PERITONEAL DIALYSIS CATHETER INSERTION) Scheduled Procedures Name Priority Associated Diagnoses Date/Ti me LAPAROSCOPY, WITH PERITONEAL DIALYSIS CATHETER INSERTION Chronic kidney disease, stage V (HCC) 04/12/2025 7:30 AM EDT documented as of this encounter Visit Diagnoses Not on filedocumented in this encounter Care Teams Superintendent [employer] Relationship Specialty Start Date End Date Félix Monroe, SPOOLING MACHINE OPERATOR [address] [place] [address] PCP - General Nurse Practitioner 08/25/22 documented as of this encounter
--- OUTSIDE RECORDS SUMMARY | 2025-04-11 11:03 | XMS_ITS | Clinical Summary ---
Author Organization [employer] ([place], [place], [place], [place]) Address [address] [place] [address] Care Team Providers Care Nuclear Medicine Physician Name Role Phone MonroeFélix APRN Primary Care Provider [phone] Allergies Active Allergy Reactions Criticality Noted Date Comments Codeine Hives,Itching High 08/15/2022 Medications albuterol HFA (VENTOLIN HFA) 90 mcg/actuation inhaler Inhale 2 puffs by mouth every 6 (six) hours as needed for wheezing. 06/25/20 22 Active fluticasone propionate (FLONASE) 50 mcg/actuation nasal spray Administer 2 sprays into affected nostril(s) daily as needed for rhinitis. 06/25/20 22 Active rOPINIRole (REQUIP) 4 MG tablet Take 1 tablet (4 mg total) by mouth nightly. 07/23/19 23 Active acetaminophen (TYLENOL) 500 MG tablet Take 2 tablets (1,000 mg total) by mouth every 6 (six) hours as needed for pain or fever. Active bumetanide (BUMEX) 1 MG tablet Take 1 tablet (1 mg total) by mouth daily as needed (edema). 02/28/20 23 Active Additional Information Patient taking differently: 3 mgoral2 times daily, //Wednesday/Wednesday, Reported on 03/30/2025 magnesium oxide (MAG-OX) 400 mg (241.3 mg magnesium) tablet Take 1 tablet (400 mg total) by mouth 2 (two) times daily F/u with nephrology for refills. 60 tablet 02/28/20 23 Active Additional Information Patient taking differently:400 mg oralDaily, F/u with nephrology for refills, Reported on 03/30/2025 aspirin 81 MG EC tablet Take 1 tablet (81 mg total) by mouth daily. Active cetirizine (ZyrTEC) 10 MG tablet Take 1 tablet (10 mg total) by mouth daily. Active sucroferric oxyhydroxide (Velphoro) 500 mg chewable tablet Take 1 tablet (500 mg total) by mouth 3 (three) times daily as needed. Active calcitRIOL (ROCALTROL) 0.5 MCG capsule Take 1 capsule (0.5 mcg total) by mouth 3 (three) times a week WED/WED/WED. Active aMILoride (MIDAMOR) 5 MG tablet Take 1 tablet (5 mg total) by mouth daily. Active atorvastatin (LIPITOR) 40 MG tablet Take 1 tablet (40 mg total) by mouth nightly. Active sodium bicarbonate 650 mg tablet Take 2 tablets (1,300 mg total) by mouth 2 (two) times daily. Active pantoprazole (PROTONIX) 40 MG tablet Take 1 tablet (40 mg total) by mouth Daily (0600). Active iron sucrose complex (IRON SUCROSE IV) Infuse 200 mg into a venous catheter Wed//Wed during dialysis. Active metoprolol succinate (TOPROL-XL) 50 MG 24 hr tablet Take 1 tablet (50 mg total) by mouth 2 (two) times daily. Active warfarin (COUMADIN) 4 MG tablet Take 1 tablet (4 mg total) by mouth daily. Active isosorbide-hydra lazine (BIDIL) 20-37.5 mg per tablet Take 1 tablet by mouth 3 (three) times daily. Active metOLazone (ZAROXOLYN) 5 MG tablet Take 1 tablet (5 mg total) by mouth daily as needed ///Wednesday. Active potassium chloride (KLOR-CON) 20 MEQ tablet Take 1 tablet (20 mEq total) by mouth daily //Wedu /Wednesday. Active traZODone (DESYREL) 150 MG tablet Take 1 tablet (150 mg total) by mouth every night as needed for Sleep. 06/25/20 025 Discontin ued(Tabitha sen ) potassium chloride SA (K-DUR,KLOR-CON- M) 20 MEQ tablet Take 1 tablet (20 mEq total) by mouth daily as needed (Take with Bumex). 10 tablet 02/28/20 025 Discontin ued(Thera py completed ) methIMAzole (TAPAZOLE) 10 MG tablet Take 1 tablet (10 mg total) by mouth daily. 025 Discontin ued(Error ) sennosides (SENOKOT) 8.6 mg tablet Take 2 tablets (17.2 mg total) by mouth nightly. 025 Discontin ued(Error ) Active Problems Problem Noted Date Diagnosed Date Preoperative evaluation to r ule out surgical contraindication 03/30/2025 Chronic kidney disease, stage V 03/29/2025 ESRD (end stage renal disease) 03/04/2023 Shortness of breath 03/04/2023 Cardiomyopathy 03/04/2023 Hypokalemia 02/26/2023 Hypervolemia associated with renal insufficiency 02/07/2023 History of laparoscopic adjustable gastric diego ng 09/07/2022 History of obstructive sleep apnea 09/07/2022 Hypertension 09/07/2022 Presence of cardiac defibrillator 09/07/2022 Decompensated heart failure 08/19/2022 Chronic anticoagulation 08/19/2022 Anemia, chronic disease 03/19/2021 Coronary artery disease involving kake coronar y artery 03/19/2021 Mixed hyperlipidemia 03/19/2021 Chronic obstructive pulmonary disease 12/23/2020 Gastroesophageal reflux disease 09/01/2019 S/P MVR (mitral valve replacement) 07/12/2019 Resolved Problems Problem Noted Date Diagnosed Date Resolved Date CHF (congestive heart failure) 03/04/2023 03/30/2025 COPD (chronic obstructive pulmonary disease) 3 03/30/2025 CKD (chronic kidney disease- not on dialysis 3 03/30/2025 H/O mitral valve repair 08/19/202203/12 Acute on chronic renal failure 08/15/2022 03/30/2025 Cardiomyopathy, dilated 06/03/202103/12 Encounters Date Type Department Care Team Description 03/30/2025 11:15 AM EDT - 03/30/2025 11:59 PM EDT Hospital Encounter [facility] Diagnostic Imaging 1 [place] [address] Bill Graham MD Preop testing Discharge Disposition: Home or Self Care 03/30/2025 8:48 AM EDT - 03/30/2025 11:14 AM EDT Hospital Encounter [facility] Preadmission Testing 1 [place] [address] Bill Graham MD Preoperative evaluation to rule out surgical contraindication (Primary Dx); Preop testing Discharge Disposition: Home or Self Care 03/30/2025 Travel 03/29/2025 Orders Only [facility] [address] [facility] [address] [place] [address] Bill Graham MD Chronic kidney disease, stage V (HCC) (Primary Dx) 03/20/2025 1:37 PM EDT - 03/20/2025 11:59 PM EDT Hospital Encounter [facility] [address] [facility] [address] [place] [id number] Bill Graham MD Other infectious disease Discharge Disposition: Home or Self Care 03/14/2025 11:00 AM EDT Office Visit [facility] [address] [facility] [address] [place] [address] Bill Graham MD ESRF (end stage renal failure) (HCC) (Primary Dx); Cardiomyopathy, dilated (HCC) 03/14/2025 Orders Only [facility] [address] [facility] [address] [place] [phone] Bill Graham MD Other infectious disease (Primary Dx) 03/14/2025 Travel from Last 3 Months Family History Medical History Relation Name Comments [...] Date Josias rded Speak language other than Moroccan at home Not on file 07/30/2023 Want [...] Mass Index 25.76 03/30/2025 9:39 AM EDT Plan of Treatment Upcoming Encounters Date Type Department Care Team (Late st Contact Info) Description 04/12/2025 7:30 AM EDT Hospital Encounter [facility] Operating Room 1 [place] [address] [place] [address] [place] [address] [place], [place] [id number] 04/12/2025 7:30 AM EDT Anesthesia Event [facility] Operating Room 1 [place] [address] Lucio Szymanski MD [address] [place] [address] 04/12/2025 7:30 AM EDT - 04/12/2025 8:55 AM EDT Surgery [facility] Operating Room 1 [place] [address] Bill Graham MD [address] [place] [address] [address] [place] [address] (LAPAROSCOPIC PERITONEAL DIALYSIS CATHETER INSERTION) Scheduled Procedures Name Priority Associated Diagnoses Date/Ti me LAPAROSCOPY, WITH PERITONEAL DIALYSIS CATHETER INSERTION Chronic kidney disease, stage V (HCC) 04/12/2025 7:30 AM EDT Health Maintenance Due Date Last Done Comments CT Colonography 1970 Colonoscopy 1970 Colorectal Cancer Screening 1970 FOBT/FIT 1970 Fit-DNA (Cologuard) 1970 Sigmoidoscopy 1970 Depression Screening (12+) 1982 HIV Screening 1985 Hepatitis C Screening 1988 DTAP/TDAP/TD VACCINES (1 - Tdap) 1989 Pap Smear 1991 Breast Cancer Screening 2010 Shingles Vaccine (Zoster) (1 of 2) 2020 Lipid Panel 02/20/2024 02/19/2021, 08/12, 07/22/2019 Medicare IPPE (Welcome to Medicare) [id number] 08/12/2024 COVID-19 VACCINE (7 - 2024-2 6 season) 2025 07/11/2021, 12/10/2020, 10/25/2020, Additional history exists Influenza Vaccine (#1) 2025 06/01/2024, 2022 Tobacco Cessation Counseling and Screening (12+) 03/30/2026 03/30/2025 Lung cancer screening Discontinued 10/13/2019 Pneumococcal 50+ years Completed 06/29/2024, 2022 Medical Devices Implanted Type Area Transformer Repairer Device Identifier Shelf Expiration Date Model / Serial / Lot Grft Vasc Collagen [id number] - [id number] Implanted:Qty: 1 on 03/01/2023 by Gibran Melo MD at [facility] IMPLANTS Right: Arm Upper [employer]EG[employer]FT 09/08/2025 [id number] / / [id number] Procedures Procedure Name Priority Date/Time Associated Diagnosis Comments XR CHEST PA AND LATERAL Routine 03/30/2025 11:25 AM EDT Preop testing BASIC METABOLIC PANEL STAT 03/30/2025 10:29 AM EDT Preop testing PT/INR, PTT STAT 03/30/2025 10:29 AM EDT Preop testing CBC HEMOGRAM (SJ-BKR) STAT 03/30/2025 10:29 AM EDT Preop testing FS_MODEL_IP_ECG 12-LEAD Routine 03/30/2025 9:20 AM EDT Preop testing CT ABDOMEN/PELVIS WITHOUT IV CONTRAST Routine 03/20/2025 2:29 PM EDT Other infectious disease CT CHEST WITHOUT IV CONTRAST Routine 10/13/2019 10:11 AM EDT LIPID PANEL Routine 08/28/2019 2:40 PM EST from Last 3 Months or Most Recently Relevant to Health Maintenance Results * X-ray chest PA and lateral [...] IMAGING ORDERABLE S Final Result * (ABNORMAL) CBC - Hemogram (SJ-BKR) (03/30/2025 10:29 AM EDT) WBC 8.1 4.0 - 10.0 K/ L 03/30/2025 10:50 AM EDT [facility] RBC 3.94 3.93 - 5.22 M/ L 03/30/2025 10:50 AM EDT [facility] Hemoglobin 11.3 11.2 - 15.7 GM/DL 03/30/2025 10:50 AM EDT [facility] Hematocrit 34.9 34.1 - 44.9 % 03/30/2025 10:50 AM EDT [facility] MCV 89 79 - 95 fL 03/30/2025 10:50 AM EDT [facility] MCH 28.7 25.6 - 32.2 pg 03/30/2025 10:50 AM EDT [facility] MCHC 32.4 32.2 - 35.5 GM/DL 03/30/2025 10:50 AM EDT [facility] RDW 17.2(H) 11.7 - 14.4 % 03/30/2025 10:50 AM EDT [facility] Platelets 234 140 - 375 K/CU MM 03/30/2025 10:50 AM EDT [facility] MPV 11.4 9.4 - 12.3 fL 03/30/2025 10:50 AM EDT [facility] Blood Venipuncture / Unknown 03/30/2025 10:29 AM EDT 03/30/2025 10:46 AM EDT us Bill Graham MD LAB BLOOD ORDERABLES Final Resul t Performing Organization Address [facility] de Phone Number [facility] [address] [phone] * (ABNORMAL) PT/INR, PTT (03/30/2025 10:29 AM EDT) aPTT 42.6(H) 22.0 - 32.0 seconds 03/30/2025 11:02 AM EDT [facility] Protime 14.0(H) 9.0 - 12.0 seconds 03/30/2025 11:02 AM EDT [facility] INR 1.28(H) 0.80 - 1.10 03/30/2025 11:02 AM EDT [facility] Blood Venipuncture / Unknown 03/30/2025 10:29 AM EDT 03/30/2025 10:46 AM EDT us Bill Graham MD LAB BLOOD ORDERABLES Final Resul t Performing Organization Address [facility] Co de Phone Number [facility] [address] [phone] * (ABNORMAL) Basic Metabolic Panel (03/30/2025 10:29 AM EDT) Sodium 134(L) 136 - 145 meq/L 03/30/2025 11:16 AM EDT [facility] Potassium 3.7 3.4 - 5.1 meq/L 03/30/2025 11:16 AM EDT [facility] CO2 20(L) 22 - 29 meq/L 03/30/2025 11:16 AM EDT [facility] Chloride 99 98 - 112 meq/L 03/30/2025 11:16 AM EDT [facility] Glucose 94 74 - 100 mg/dL 03/30/2025 11:16 AM EDT [facility] BUN 51.1(H) 9.8 - 20.1 mg/dL 03/30/2025 11:16 AM EDT [facility] Creatinine 3.61(H) 0.57 - 1.11 mg/dL 03/30/2025 11:16 AM EDT [facility] BUN/Creatinine 14 8 - 20 03/30/2025 11:16 AM EDT [facility] Calcium 9.2 8.4 - 10.2 mg/dL 03/30/2025 11:16 AM EDT [facility] Anion Gap 19(H) 4 - 12 03/30/2025 11:16 AM EDT [facility] eGFR (mL/min/1.73m2) 14(L) >=60 mL/min/1.7 3m2 03/30/2025 11:16 AM EDT [facility] Comment:ESTIMATED GFR IS NOT ACCURATE CREATININE CLEARANCE IN PREDICTING GLOMERULAR FILTRATION RATE. ESTIMATED GFR IS NOT APPLICABLE FOR DIALYSIS PATIENTS. Osmolality Calc 281.7 mOsm/kg 11:16 AM T [facility] Blood Venipuncture / Unknown 03/30/2025 10:29 AM EDT 03/30/2025 10:46 AM EDT us Bill Graham MD LAB BLOOD ORDERABLES Final Resul t [facility] [address] [phone] * ECG 12 lead (03/30/2025 9:20 AM EDT) VENTRICULAR RATE EKG/MIN 80 BPM GE MUSE ATRIAL RATE (MCT) 340 BPM GE MUSE QRS-INTERVAL (MSEC) 156 ms GE MUSE QT Interval 498 ms GE MUSE QTC Interval 574 ms GE MUSE R AXIS (MCT) 130 degrees GE MUSE T Wave Skillman 29 degrees GE MUSE Newell Diagnosis Ventricular-pa ashley rhythm Abnormal ECG When compared with ECG of 12-MAR-2023 09:42, Electronic ventricular pacemaker has replaced Sinus rhythm Confirmed by Carlos Castillo ([id number]) on 03/30/2025 8:54:44 PM GE MUSE 03/30/2025 9:20 AM EDT 03/30/2025 8:54 PM EDT us Bill Graham MD ECG ORDERABLES Final Result GE MUSE * CT ABDOMEN/PELVIS WITHOUT IV CONTRAST Standard [...] by Chauncey Cosby PA-C. Bill Graham MD IM CT ORDERABLES Final Result * CT chest without IV contrast (10/13/2019 10:11 AM EDT) Anatomical Region Laterality Modality Chest, Lung Computed Tomogra phy 10/13/2019 10:1 1 AM EDT Narrative 10/13/2019 2:[address] CHEST WITHOUT IV CONTRAST HISTORY: Shortness of breath. FINDINGS: There are no prior CT chest exams for comparison. The exam was performed without IV contrast. This study was performed with techniques to keep radiation doses as low as reasonably achievable (ALARA). Individualized dose reduction techniques using automated exposure control or adjustment of mA and/or kV according to the patient's size were employed. There is mild scar or linear atelectasis in the left lower lobe and lingula. There is old granulomatous disease. There are no noncalcified lung nodules or masses. The right lung is clear. There are sternal suture wires. There are coronary calcifications. There is moderate cardiomegaly. There is a minimal pericardial effusion. There are no enlarged mediastinal nodes. There are calcified left hilar nodes. The ascending thoracic aorta measures up to 4 cm transversely. The descending thoracic aorta measures 2.7 cm transversely. There is a minimal left pleural effusion. A gastric band is noted. IMPRESSION: Minimal left pleural effusion with mild atelectasis in the left lung base. Ascending thoracic aorta at the upper limits of normal in size. Mild cardiomegaly. Postsurgical changes. Procedure Note Amy Alvarez MD - 10/27/2022 CT CHEST WITHOUT IV CONTRAST HISTORY: Shortness of breath. FINDINGS: There are no prior CT chest exams for comparison. The exam was performed without IV contrast. This study was performed with techniques to keep radiation doses as low as reasonably achievable (ALARA). Individualized dose reduction techniques using automated exposure control or adjustment of mA and/or kV according to the patient's size were employed. There is mild scar or linear atelectasis in the left lower lobe and lingula. There is old granulomatous disease. There are no noncalcified lung nodules or masses. The right lung is clear. There are sternal suture wires. There are coronary calcifications. There is moderate cardiomegaly. There is a minimal pericardial effusion. There are no enlarged mediastinal nodes. There are calcified left hilar nodes. The ascending thoracic aorta measures up to 4 cm transversely. The descending thoracic aorta measures 2.7 cm transversely. There is a minimal left pleural effusion. A gastric band is noted. IMPRESSION: Minimal left pleural effusion with mild atelectasis in the left lung base. Ascending thoracic aorta at the upper limits of normal in size. Mild cardiomegaly. Postsurgical changes. us Amy Alvarez MD IMG CT ORDERABLES Final Resu lt * (ABNORMAL) LIPID PANEL (08/28/2019 2:40 PM EST) Triglyceride 148 0 - 249 mg/dL 08/28/2019 8:27 PM EST Cholesterol HDL 55.0 mg/dL 0 8:27 PM EST Comment: Desirable > 60 mg/dl Increased Risk < 40 mg/dl Cholesterol Total 232(H) 0 - 199 mg/dL 08/28/2019 8:27 PM EST Comment: 200 to 239 mg/dL Moderate (borderline) >239 mg/dL High Cholesterol VLDL Calculation 29.6 5.0 - 40.0 mg/dL 08/28/2019 8:27 PM EST Cholesterol LDL Calculation 147.4(H) 0.0 - 99.0 mg/dL 08/28/2019 8:27 PM EST Comment: DESIRABLE <130 BORDERLINE 130 to 159 HIGH >=160 Cholesterol/HDL Ratio 4.2(H) 0.0 - 3.2 08/28/2019 8:27 PM EST LDL/HDL Ratio 2.7 0.0 - 3.2 08/28/2019 8:27 PM EST Blood 08/28/2019 2:40 PM EST 08/28/2019 8:04 PM EST [facility] [place] [facility] Historical Provider PATHOLOGY/CYTOLOGY BESSY BHAT Final Result [facility] [address] [phone] from Last 3 Months or Most Recently Relevant to Health Maintenance Insurance [id number] (Home) [address] [place] [id number] [facility] MED[facility] HMO Advance Directives For more information, please contact: [phone] * Full Code (Latest Code Status on File) Date Activated Date Inactivated Comments 03/04/2023 6:51 PM 03/06/2023 6:59 PM * Full Code Date Activated Date Inactivated Comments 02/26/2023 11:47 AM 02/27/2023 5:09 PM * Full Code Date Activated Date Inactivated Comments 02/07/2023 9:51 PM 02/10/2023 5:55 PM * Full Code Date Activated Date Inactivated Comments 08/15/2022 1:48 PM 08/25/2022 4:58 PM Care Teams Nuclear Medicine Physician Relationship Specialty Start Date End Date Félix Monroe, FUNERAL LOCATION MANAGER [address] [facility] [address] [place] [address] PCP - General Nurse Practitioner 08/25/22
--- OUTSIDE RECORDS SUMMARY | 2025-04-11 11:03 | XMS_ITS | Encounter Summary ---
Author Organization [employer] ([place], [place], [place], [place]) Address [address] [address] Care Team Providers Care Reproductive Endocrinologist Name Role Phone Félix Monroe APRN Primary Care Provider [phone] Encounter Details Date Type Department Care Team (Late st Contact Info) Description 10/17/2019 Transcribed Document [facility] Family Medicine [address] [place] [address] ProviderMaria Esther MD [address] [place], [place] [phone] Social History Tobacco Use Types Packs/Day Years Used Date Smoking Tobacco: Never Assessed Comments Unknown Sex and Gender Information Value Date Recorded Sex Assigned at Not on file Legal Sex Female 6:53 PM CDT Gender Identity Not on file Sexual Orientation Not on file documented as of this encounter Miscellaneous Notes * Cerner Conversion Note - Maria Esther ProviderMD - 10/17/2019 5:00 AM CDT Chart Check - Review Order Profile Entered On: 10/17/2019 6:06 EDT Performed On: 10/17/2019 5:00 EDT by Nayla Rivera, RN Chart Check Powerplans Initiated/Discontinued as Appropriate : Not applicable All Active Orders Reviewed : Yes Nayla Rivera, RN - 10/17/2019 6:06 EDT documented in this encounter Plan of Treatment Upcoming Encounters Date Type Department Care Team (Late st Contact Info) Description 04/12/2025 7:30 AM EDT Hospital Encounter [facility] Operating Room 1 [place] [address] Bill Graham MD [address] [facility] [address] [place] [address] 04/12/2025 7:30 AM EDT Anesthesia Event [facility] Operating Room 1 [place] [address] Lucio Szymanski MD [address] [place] [address] 04/12/2025 7:30 AM EDT - 04/12/2025 8:55 AM EDT Surgery [facility] Operating Room 1 [place] [address] [place] [address] [place] [address] [place] [phone] (LAPAROSCOPIC PERITONEAL DIALYSIS CATHETER INSERTION) Scheduled Procedures Name Priority Associated Diagnoses Date/Ti me LAPAROSCOPY, WITH PERITONEAL DIALYSIS CATHETER INSERTION Chronic kidney disease, stage V (HCC) 04/12/2025 7:30 AM EDT documented as of this encounter Visit Diagnoses Not on filedocumented in this encounter Care Teams Reproductive Endocrinologist Relationship Specialty Start Date End Date Félix Monroe, AIRCRAFT MAINTENANCE DIRECTOR [address] [facility] [address] [place] [address] PCP - General Nurse Practitioner 08/25/22 documented as of this encounter
--- OUTSIDE RECORDS SUMMARY | 2025-04-11 11:03 | XMS_ITS | Encounter Summary ---
Author Organization [employer] ([place], [place], [place], [place]) Address [address] [place] [address] Care Team Providers Care Medical Unit Secretary Name Role Phone Fer Félix Francisco RODRIGUEZ Primary Care Provider [phone] Encounter Details Date Type Department Care Team (Late st Contact Info) Description 10/12/2019 Transcribed Document [facility] [place] [address] [place] [address] ProviderMaria Esther MD [address] [place], [place] [address] Social History Tobacco Use Types Packs/Day Years Used Date Smoking Tobacco: Never Assessed Comments Unknown Sex and Gender Information Value Date Recorded Sex Assigned at Not on file Legal Sex Female 6:53 PM CDT Gender Identity Not on file Sexual Orientation Not on file documented as of this encounter Miscellaneous Notes * Cerner Conversion Note - Maria Esther ProviderMD - 10/12/2019 1:17 PM CDT RX Interventions Entered On: 10/12/2019 13:17 EDT Performed On: 10/12/2019 13:17 EDT by JORGE HERNANDEZ PharmD Clinical Interventions IV to PO Conversion : Yes JORGE HERNANDEZ PharmD - 10/12/2019 13:17 EDT IV to PO Conversion Doxycycline : Yes JORGE HERNANDEZ PharmD - 10/12/2019 13:17 EDT Doxycycline Doxycycline, Value : 54 Dollar Doxycycline, Time : 10 Minute(s) JORGE HERNANDEZ PharmD - 10/12/2019 13:17 EDT documented in this encounter Plan of Treatment Upcoming Encounters Date Type Department Care Team (Late st Contact Info) Description 04/12/2025 7:30 AM EDT Hospital Encounter [facility] Operating Room 1 [place] [address] [place] [address] [place] [address] [address] [place] [address] 04/12/2025 7:30 AM EDT Anesthesia Event [facility] Operating Room 1 [place] [address] Lucio Szymanski MD [address] [place] [address] 04/12/2025 7:30 AM EDT - 04/12/2025 8:55 AM EDT Surgery [facility] Operating Room 1 [place] [address] Bill Graham MD [address] [place] [address] [address] [place] [address] (LAPAROSCOPIC PERITONEAL DIALYSIS CATHETER INSERTION) Scheduled Procedures Name Priority Associated Diagnoses Date/Ti me LAPAROSCOPY, WITH PERITONEAL DIALYSIS CATHETER INSERTION Chronic kidney disease, stage V (HCC) 04/12/2025 7:30 AM EDT documented as of this encounter Visit Diagnoses Not on filedocumented in this encounter Care Teams Medical Unit Secretary Relationship Specialty Start Date End Date Félix Monroe, SURVEY METHODOLOGIST [address] [facility] [address] [place] [address] PCP - General Nurse Practitioner 08/25/22 documented as of this encounter
--- OUTSIDE RECORDS SUMMARY | 2025-04-11 11:03 | XMS_ITS | Encounter Summary ---
Author Organization [employer] ([place], [place], [place], [place]) Address [address] [place] [address] Care Team Providers Care Metal Turner Name Role Phone MonroeFélix APRN Primary Care Provider Encounter Details Date Type Department Care Team (Late st Contact Info) Description 10/12/2019 Transcribed Document [facility] Family Medicine [facility] [place] [address] ProviderMaria Esther MD [address] [place] [address] Social History Tobacco Use Types Packs/Day Years Used Date Smoking Tobacco: Never Assessed Comments Unknown Sex and Gender Information Value Date Recorded Sex Assigned at Not on file Legal Sex Female 6:53 PM CDT Gender Identity Not on file Sexual Orientation Not on file documented as of this encounter Miscellaneous Notes * Cerner Conversion Note - Maria Esther Reyes MD - 10/12/2019 2:05 PM CDT Patient: CORRIE SMITH Age: 49 years Sex: Female : 1970 Associated Diagnoses: None Author: CHRISTIANO KITCHEN MD-INT Basic Information Time of exam 1115 The patient was admitted yesterday, events reviewed. She was seen in CTVU, resting in bed and in no acute distress. She was feeling okay . She was better after getting blood transfusions and fluids yesterday. She understands that multiple consultants are involved in her care and we are still awaiting testing results. She was aware of plans for RIA today and potential for heart surgery tomorrow. Review of Systems Respiratory: No shortness of [...] cloNIDine: 0.1 mg, Oral, Q4H, PRN: Hypertension doxycycline: 100 mg, Oral, BID hydrALAZINE: 10 mg, IV Push, Q6H, PRN: [...] initial episode of care / SNOMED CT 3560302697 / Confirmed At risk for sleep apnea / IMO 21333884 / Confirmed CHF, acute on chronic / SNOMED CT 42537639 / Confirmed Class 3 Systolic GERD - Gastro-esophageal reflux disease / SNOMED CT 7230678155 / Confirmed H/O: TIA / SNOMED CT 056796625 / Confirmed History of laparoscopic adjustable gastric banding / SNOMED CT 7307614533 / Confirmed History of obstructive sleep apnea / IMO 93363750 / Confirmed HTN - Hypertension / SNOMED CT 8076703225 / Confirmed Mitral regurgitation / SNOMED CT 37779390 / Confirmed Prolonged QT interval / SNOMED CT 346644257 / Confirmed Pulmonary edema / SNOMED CT 35719868 / Confirmed Restless legs syndrome / SNOMED CT 92020724 / Confirmed RF - Renal failure, Stage 4 / SNOMED CT 0847671230 / Confirmed Sleep apnea-before weight loss surgery / SNOMED CT 212944934 / Confirmed, Active Problems (15) At risk [...] 16:20) 93 (OCT 10 16:20) Mon HR 91 (OCT 11 12:00) 86 (OCT 11 05:00) 103 (OCT 10 17:15) Resp Rate 14 (OCT 11 12:00) L 13 (OCT 11 05:00) H 52 (OCT 10 17:45) SBP 136 (OCT 11 12:00) 122 (OCT 10 20:45) H 160 (OCT 11 03:00) DBP 82 (OCT 11 12:00) 62 (OCT 10 21:15) H 97 (OCT 11 09:00) MAP 104 (OCT 11 12:00) 88 (OCT 10 21:15) 122 (OCT 11 09:00) SpO2 100 (OCT 11 12:00) 98 (OCT 10 15:45) 100 (OCT 10 [...] Soft, Non-tender, Non-distended, Normal bowel sounds. Musculoskeletal: No tenderness, No swelling, No deformity. Integumentary: Warm, Dry, Intact, No rash, Pale. Neurologic: Alert, Oriented, Normal sensory, Normal motor [...] 1. Acute blood loss anemia: Suspect hemolysis, appreciate Hematology input. Awaiting results of multiple lab tests for workup. Hemoglobin improved s/p transfusion. 2. Mitral valve insufficiency s/p recent annuloplasty: CT Surgery following, depending on results of RIA considering further surgery tomorrow. 3. Hypertensive urgency: Improved, off cardene. Continue coreg, norvasc. 4. Prolonged QT: Cardiology following. 5. LETY on CKD stage IV: Nephrology following, input appreciated. On IV fluids. 6. Hyperbilirubinemia: May be secondary to hemolytic process. 7. Chronic systolic CHF: Continue cardiac meds as able. Disposition: Uncertain at this time. The patient was on zosyn/doxy for no clear reason I could uncover, I have stopped these. Electronically signed by Evaristo Loyola Conversion Rn Document Improvement Specialist Cerner at 10/28/2022 7:01 PM CDT documented in this encounter Plan of Treatment Upcoming Encounters Date Type Department Care Team (Late st Contact Info) Description 04/12/2025 7:30 AM EDT Hospital Encounter [facility] ([place] [place] Operating Room 1 [place] [phone] Bill Graham MD [address] [place] [address] [address] [place] [address] 04/12/2025 7:30 AM EDT Anesthesia Event [facility] [place] Operating Room 1 [place] [address] Lucio Szymasnki MD [address] [place] [address] 04/12/2025 7:30 AM EDT - 04/12/2025 8:[address] [facility] ([place] [place] Operating Room 1 [place] [address] Bill Graham MD [address] [facility] [address] [place] [address] (LAPAROSCOPIC PERITONEAL DIALYSIS CATHETER INSERTION) Scheduled Procedures Name Priority Associated Diagnoses Date/Ti me LAPAROSCOPY, WITH PERITONEAL DIALYSIS CATHETER INSERTION Chronic kidney disease, stage V (HCC) 04/12/2025 7:30 AM EDT documented as of this encounter Visit Diagnoses Not on filedocumented in this encounter Care Teams Metal Turner Relationship Specialty Start Date End Date Félix Monroe, SAND WHEELER [address] [facility] [address] [place] [address] PCP - General Nurse Practitioner 08/25/22 documented as of this encounter
--- OUTSIDE RECORDS SUMMARY | 2025-04-11 11:03 | XMS_ITS | Encounter Summary ---
Author Organization [email or web address] ([place], [place], [place], [place]) Address [address] [place] [address] Care Team Providers Care Hairspring Ii Inspector Name Role Phone Félix Monroe APRN Primary Care Provider [phone] Encounter Details Date Type Department Care Team (Late st Contact Info) Description 10/12/2019 Transcribed Document [facility] [address] [place] [address] ProviderMaria Esther MD [address] [place] [address] Social History Tobacco Use Types Packs/Day Years Used Date Smoking Tobacco: Never Assessed Comments Unknown Sex and Gender Information Value Date Recorded Sex Assigned at Not on file Legal Sex Female 6:53 PM CDT Gender Identity Not on file Sexual Orientation Not on file documented as of this encounter Miscellaneous Notes * Cerner Conversion Note - Maria Esther Reyes MD - 10/12/2019 9:37 AM CDT Patient: CORRIE SMITH Age: 49 [...] discharged on 09/04/19. She initially presented to [facility] with a two day history [...] her chart. Therefore she was transferred to [facility] for further work up and evaluation. The pt is scheduled to have a RIA today. Her H/H today are stable at 8.4/25.0. She does have a history of Chronic stage IV renal failure and Creatinine today is 3.1. Her baseline range is 2.0-2.[address] Howell has been consulted as they were following her during her last hospitalization. PMH: Systemic HTN History of Obesity Chronic Systolic, valvular Class 3 CHF RLS Chronic Stage IV Renal Failure History of TIA NSTEMI Sleep Apnea Severe GERD COPD History of Pulmonary Edema PSH: Mitral Valve Repair using a 28 mm CG annuloplasty band. Ligation and excision of left atrial appendage. 08/29/[address] Valdez Bilateral Knee Surgery -Anterior Cruciate Ligament Repair on one side -Arthroscopy on the other Total Abdominal Hysterectomy for prolapse -Has one ovary remaining Lap Band Procedure 12 years ago SH: She has been for 26 years and has three adult children and five grandchildren. She is a resident of [place] [employer] and works as a [employer]. Tobacco: She quit smoking in Aug 2019. She has a 35 pack year history She has a history of smoking marijuana daily x 30 years She denies any alcohol or illicit drug abuse. FH: Her father with sepsis years ago. Her mother is living and well. She has siblings, one with renal disease and one with heart disease. Review of Systems Constitutional: No fever, No chills. Respiratory: No shortness of breath. Cardiovascular: No chest pain, No palpitations. Health Status Allergies: Allergies (1) Active Reaction gerald Fu Current medications: Home Medications: 1. Aspirin 81mg PO Daily 2. Amlodipine 5 mg PO Daily. 3. Carvedilol 25 mg PO BID 4. Protonix 40 mg PO Daily. 5. Ropinirole 1 mg PO QHS 6. Nicotine patch 7. Senna 8. Rio Physical Examination VS/Measurements Vital Measurements 10/12/2019 9:00 EDT Systolic Blood Pressure 157 mmHg HI Diastolic Blood Pressure 97 mmHg HI Mean Arterial Pressure (MAP)-BMDI 122 Heart Rate Monitored 87 bpm Oxygen Saturation 100 % Oxygen Therapy Mode Room air 10/12/2019 8:00 EDT Temperature, Fahrenheit 98.5 Deg F Clinical Temperature, C 36.9 Deg C Clinical Temperature, C 36.9 Deg C General: Alert and oriented, No acute distress. HENT: Normocephalic. Neck: Supple. Respiratory: Lungs are clear to auscultation. Cardiovascular: Normal rate, 87 beats per minute, Regular rhythm, S1, S2, No edema. Gastrointestinal: Soft, Non-tender, Non-distended, Normal bowel sounds. Musculoskeletal: Lower extremity exam: Warm bilaterally. Integumentary: Warm, Dry, Green Level, Sternal incision is well healed. Neurologic: Alert, Oriented. Psychiatric: Cooperative, Appropriate mood & affect. Review / Management Results review: OCT 11 03:44 137 105 H 27 / H 115 3.7 24 H 3.10 \ Blood Gases (Current Encounter/Past 24 Hours) No Blood Gas Results Found (Past 24 Hours) Coagulation Results (Current Encounter/Past 24 Hours) PT 11.2 Second(s) 10/11/2019 16:26 INR 1.1 10/11/2019 16:26 . Impression and Plan Plan: 10/12/19 Awaiting results of RIA Possible surgery tomorrow vs Wednesday I discussed pt with Clock Smith, Dr. Howell and he is okay with proceeding with surgical plan at any time. Diagnosis Marijuana daily smoker - Pre-Op Diagnosis, [...] Pre-Op Diagnosis, Medical. Electronically signed by Nir [facility] Conversion Top Collar Maker Cerner at 10/28/2022 7:10 PM CDT documented in this encounter Plan of Treatment Upcoming Encounters Date Type Department Care Team (Late st Contact Info) Description 04/12/2025 7:30 AM EDT Hospital Encounter [facility] Operating Room 1 [place] [address] Bill Graham MD [address] [place] [address] 04/12/2025 7:30 AM EDT Anesthesia Event [facility] Operating Room 1 [place] [address] Lucio Szymanski MD [address] [place] [address] 04/12/2025 7:30 AM EDT - 04/12/2025 8:55 AM EDT Surgery [facility] Operating Room 1 [place] [address] Bill Graham MD [address] [place] [address] [address] (LAPAROSCOPIC PERITONEAL DIALYSIS CATHETER INSERTION) Scheduled Procedures Name Priority Associated Diagnoses Date/Ti me LAPAROSCOPY, WITH PERITONEAL DIALYSIS CATHETER INSERTION Chronic kidney disease, stage V (HCC) 04/12/2025 7:30 AM EDT documented as of this encounter Visit Diagnoses Not on filedocumented in this encounter Care Teams Hairspring Ii Inspector Relationship Specialty Start Date End Date Félix Monroe, VERTICAL ROLL OPERATOR [address] [facility] [address] [place] [address] PCP - General Nurse Practitioner 08/25/22 documented as of this encounter
--- OUTSIDE RECORDS SUMMARY | 2025-04-11 11:03 | XMS_ITS | Encounter Summary ---
Author Organization [employer] ([place], [place], [place], [place]) Address [address] [address] Care Team Providers Care Director Of Product Management Name Role Phone Fer Félix Francisco RODRIGUEZ Primary Care Provider [phone] Encounter Details Date Type Department Care Team (Late st Contact Info) Description 10/17/2019 Transcribed Document [facility] Family Medicine [address] [place] [address] ProviderMaria Esther MD [address] [place], [place] [address] Social History Tobacco Use Types Packs/Day Years [...] Esther ProviderMD - 10/17/2019 5:00 AM CDT Height and Weight, Routine Entered On: 10/17/2019 6:08 EDT Performed On: 10/17/2019 5:00 EDT by Nayla Rivera, RN Height and Weight, Routine Routine Weight Source : Bed scale Routine Weight Entry Format : Metric Routine Weight, Kilograms : 71.5 kg(Converted to: 157 lb 10 oz) Routine Weight Calculation : 71.5 kg Height Source : Chart Height Entry Format : [place] Height, Feet : 5 ft Height, Inches : 6 Inch Clinical Height : 167.64 cm Body Surface Area (BSA), Routine : 1.81 m2 Body Mass Index (BMI), Routine : 25.44 kg/m2 Nayla Rivera, RN - 10/17/2019 6:07 EDT documented in this encounter Plan of Treatment Upcoming Encounters Date Type Department Care Team (Late st Contact Info) Description 04/12/2025 7:30 AM EDT Hospital Encounter [facility] Operating Room 1 [place] [address] [place] [address] [place] [address] [address] 04/12/2025 7:30 AM EDT Anesthesia Event [facility] Operating Room 1 [place] [address] Lucio Szymanski MD [address] [place] [address] 04/12/2025 7:30 AM EDT - 04/12/2025 8:55 AM EDT Surgery [facility] Operating Room 1 [place] [address] Bill Graham MD [address] [place] [address] (LAPAROSCOPIC PERITONEAL DIALYSIS CATHETER INSERTION) Scheduled Procedures Name Priority Associated Diagnoses Date/Ti me LAPAROSCOPY, WITH PERITONEAL DIALYSIS CATHETER INSERTION Chronic kidney disease, stage V (HCC) 04/12/2025 7:30 AM EDT documented as of this encounter Visit Diagnoses Not on filedocumented in this encounter Care Teams Director Of Product Management Relationship Specialty Start Date End Date Félix Monroe, ADVERTISING ACCOUNT MANAGER [address] [facility] [address] [place] [address] PCP - General Nurse Practitioner 08/25/22 documented as of this encounter
--- OUTSIDE RECORDS SUMMARY | 2025-04-11 11:03 | XMS_ITS | Encounter Summary ---
Author Organization [employer] ([place], [place], [place], [place]) Address [address] [address] Care Team Providers Care Firearms Sales Associate Name Role Phone Félix Monroe APRN Primary Care Provider [phone] Encounter Details Date Type Department Care Team (Late st Contact Info) Description 10/11/2019 Transcribed Document [facility] [place] [address] [place] [address] ProviderMaria Esther MD [address] [place], [place] [address] Social History Tobacco Use Types Packs/Day Years Used Date Smoking Tobacco: Never Assessed Comments Unknown Sex and Gender Information Value Date Recorded Sex Assigned at Not on file Legal Sex Female 6:53 PM CDT Gender Identity Not on file Sexual Orientation Not on file documented as of this encounter Miscellaneous Notes * Cerner Conversion Note - Historical ProviderMD - 10/11/2019 1:32 PM CDT Consult Phone Call Documentation Entered On: 10/11/2019 16:28 EDT Performed On: 10/11/2019 13:32 EDT by Pao Pearce, SUPERVISOR VENDOR [facility] Phone Call for Consults Consult Phone Call/Page Attempt : First call Date and Time Call Returned : 10/12/2019 16:28 EDT Consult, Additional Information : Marcin Terry Took consult Pao Pearce SUPERVISOR VENDOR [facility] - 10/11/2019 16:27 EDT documented in this encounter Plan of Treatment Upcoming Encounters Date Type Department Care Team (Late st Contact Info) Description 04/12/2025 7:30 AM EDT Hospital Encounter [facility] Operating Room 1 [place] [address] [place] [address] [place] [address] [address] [place] [address] 04/12/2025 7:30 AM EDT Anesthesia Event [facility] Operating Room 1 [place] [address] Lucio Szymanski MD [address] [place] [address] 04/12/2025 7:30 AM EDT - 04/12/2025 8:55 AM EDT Surgery [facility] Operating Room 1 [place] [address] Bill Graham MD [address] [place] [address] [address] [place] [address] (LAPAROSCOPIC PERITONEAL DIALYSIS CATHETER INSERTION) Scheduled Procedures Name Priority Associated Diagnoses Date/Ti me LAPAROSCOPY, WITH PERITONEAL DIALYSIS CATHETER INSERTION Chronic kidney disease, stage V (HCC) 04/12/2025 7:30 AM EDT documented as of this encounter Visit Diagnoses Not on filedocumented in this encounter Care Teams Firearms Sales Associate Relationship Specialty Start Date End Date Félix Monroe, HOME APPLIANCE TECH [address] [facility] [address] [place] [address] PCP - General Nurse Practitioner 08/25/22 documented as of this encounter
--- OUTSIDE RECORDS SUMMARY | 2025-04-11 11:03 | XMS_ITS | Encounter Summary ---
Author Organization [employer] ([place], [place], [place], [place]) Address [address] [place] [address] Care Team Providers Care Photograph Enlarger Name Role Phone Félix Monroe APRN Primary Care Provider [phone] Encounter Details Date Type Department Care Team (Late st Contact Info) Description 10/14/2019 Transcribed Document [facility] [place] [address] [place] [address] ProviderMaria Esther MD [address] [place] [id number] Social History Tobacco Use Types Packs/Day Years Used Date Smoking Tobacco: Never Assessed Comments Unknown Sex and Gender Information Value Date Recorded Sex Assigned at Not on file Legal Sex Female 6:53 PM CDT Gender Identity Not on file Sexual Orientation Not on file documented as of this encounter Miscellaneous Notes * Cerner Conversion Note - Historical ProviderMD - 10/14/2019 5:00 AM CDT Chart Check - Review Order Profile Entered On: 10/14/2019 3:09 EDT Performed On: 10/14/2019 5:00 EDT by Latia Gonzalez RN Chart Check All Active Orders Reviewed : Yes Latia Gonzalez RN - 10/14/2019 3:09 EDT documented in this encounter Plan of Treatment Upcoming Encounters Date Type Department Care Team (Late st Contact Info) Description 04/12/2025 7:30 AM EDT Hospital Encounter [facility] Operating Room 1 [place] [address] Bill Graham MD [address] [facility] [address] [place] [address] 04/12/2025 7:30 AM EDT Anesthesia Event [facility] Operating Room 1 [place] [address] Lucio Szymanski MD [address] [place] [address] 04/12/2025 7:30 AM EDT - 04/12/2025 8:55 AM EDT Surgery [facility] Operating Room 1 [place] [address] Bill Graham MD [address] [facility] [address] [place] [address] (LAPAROSCOPIC PERITONEAL DIALYSIS CATHETER INSERTION) Scheduled Procedures Name Priority Associated Diagnoses Date/Ti me LAPAROSCOPY, WITH PERITONEAL DIALYSIS CATHETER INSERTION Chronic kidney disease, stage V (HCC) 04/12/2025 7:30 AM EDT documented as of this encounter Visit Diagnoses Not on filedocumented in this encounter Care Teams Photograph Enlarger Relationship Specialty Start Date End Date Félix Monroe, CLINICAL BIOSTATISTICIAN [address] [facility] [address] [place] [address] PCP - General Nurse Practitioner 08/25/22 documented as of this encounter
--- OUTSIDE RECORDS SUMMARY | 2025-04-11 11:03 | XMS_ITS | Encounter Summary ---
Author Organization [employer] ([place], [place], [place], [place]) Address [address] [place] [address] Care Team Providers Care Cutter Grinder Operator Name Role Phone Monroe Félix Francisco RODRIGUEZ Primary Care Provider [phone] Encounter Details Date Type Department Care Team (Late st Contact Info) Description 10/16/2019 Transcribed Document [facility] [place] Family Medicine [address] [place] [address] ProviderMaria Esther MD [address] [place] [address] Social History Tobacco Use Types Packs/Day Years Used Date Smoking Tobacco: Never Assessed Comments Unknown Sex and Gender Information Value Date Recorded Sex Assigned at Not on file Legal Sex Female 6:53 PM CDT Gender Identity Not on file Sexual Orientation Not on file documented as of this encounter Miscellaneous Notes * Cerner Conversion Note - Maria Esther Reyes MD - 10/16/2019 2:17 PM CDT On Going Discharge Planning Entered On: 10/16/2019 14:18 EDT Performed On: 10/16/2019 14:17 EDT by ZAINA GUERRERO Rn-Analytics AssociateSoftware Product Specialist Progress Note Discharge Arrangements : Patient Post-Acute Information Patient Name: CORRIE SMITH Gender: Female : [birth year] Age: 49 Years No Post-Acute Placement(s) Listed No Post-Acute Service(s) Listed No [place] Referral(s) Listed Barriers to Discharge Identified : Clinical Condition of Patient Barriers to Discharge Unresolved : Clinical Condition of Patient Is the Patient Meeting Medical Necessity : Yes ZAINA GUERRERO Rn-Analytics Associate - 10/16/2019 14:17 EDT Narrative Progress Note Narrative Progress Note : Day 5 - Pt to OR today for MVR redo surgery requiring hemodynamic monitoring lines; DCP pending progress; anticipate home without needs; will review for OP Cardiac Rehab. Historical Progress Note : Cm received information from [facility]. ??m recieved letter and called for verification and spoke to radha. [employer] allows these home health companies : [facility], [employer], and [employer]. RAKESH PARRA RN-Analytics Associate - 10/13/19 10:19:59 Cm received information from [facility]. Cm recieved letter and called for verification and spoke to radha. [employer] allows these home health companies : [facility], [employer], and [employer]. Patient is normally independent . patient still denies need for hh and dme. cm will arrange for any needs at discharge. DCP: home vs hh RAKESH PARRA RN-Analytics Associate - 10/13/19 10:24:38 ZAINA GUERRERO Rn-Analytics Associate - 10/16/2019 14:17 EDT documented in this encounter Plan of Treatment Upcoming Encounters Date Type Department Care Team (Late st Contact Info) Description 04/12/2025 7:30 AM EDT Hospital Encounter [facility] Operating Room 1 [place] [address] Bill Graham MD [address] [place] [address] [address] [place] [address] 04/12/2025 7:30 AM EDT Anesthesia Event [facility] Operating Room 1 [place] [address] Lucio Szymanski MD [address] [place] [address] 04/12/2025 7:30 AM EDT - 04/12/2025 8:55 AM EDT Surgery [facility] Operating Room 1 [place] [address] Bill Graham MD [address] [facility] [address] [place] [address] (LAPAROSCOPIC PERITONEAL DIALYSIS CATHETER INSERTION) Scheduled Procedures Name Priority Associated Diagnoses Date/Ti me LAPAROSCOPY, WITH PERITONEAL DIALYSIS CATHETER INSERTION Chronic kidney disease, stage V (HCC) 04/12/2025 7:30 AM EDT documented as of this encounter Visit Diagnoses Not on filedocumented in this encounter Care Teams Cutter Grinder Operator Relationship Specialty Start Date End Date Félix Monroe, TALENT DIRECTOR [address] [facility] [address] [place], [place] [id number] PCP - General Nurse Practitioner 08/25/22 documented as of this encounter
--- OUTSIDE RECORDS SUMMARY | 2025-04-11 11:03 | XMS_ITS | Encounter Summary ---
Author Organization [employer] ([place], [place], [place], [place]) Address [address] [place] [address] Care Team Providers Care Obstetrician And Gynaecologist Name Role Phone Fer Félix Singh MICHAEL Primary Care Provider [phone] Encounter Details Date Type Department Care Team (Late st Contact Info) Description 10/16/[address] [facility] [place] Family Medicine [address] [place] [address] ProviderMaria Esther MD [address] [place], [place] [id number] Social History Tobacco Use Types Packs/Day Years Used Date Smoking Tobacco: Never Assessed Comments Unknown Sex and Gender Information Value Date Recorded Sex Assigned at Not on file Legal Sex Female 6:53 PM CDT Gender Identity Not on file Sexual Orientation Not on file documented as of this encounter Miscellaneous Notes * Cerner Conversion Note - Maria Esther ProviderMD - 10/16/2019 2:00 AM CDT [employer] To[employer] Former Details Entered On: 10/16/2019 1:59 EDT Performed On: 10/16/2019 2:00 EDT by Latia Gonzalez RN Order Details Transport Mode Order Detail : Wheelchair Isolation Precautions Order Detail : Standard Precautions Order Detail : 0 IV Order Detail : 1 Oxygen Order Detail : 0 Nurse Collect Order Detail : 0 Lift/Transfer : Independent Central Line Order Detail : No Room Service : Appropriate Arterial Line : No Latia Gonzalez RN - 10/16/2019 1:59 EDT documented in this encounter Plan of Treatment Upcoming Encounters Date Type Department Care Team (Late st Contact Info) Description 04/12/2025 7:30 AM EDT Hospital Encounter [facility] Operating Room 1 [place] [address] [place] [address] [place] [address] [address] [place] [address] 04/12/2025 7:30 AM EDT Anesthesia Event [facility] Operating Room 1 [place] [address] Lucio Szymanski MD [address] [place] [address] [id number] 04/12/2025 7:30 AM EDT - 04/12/2025 8:55 AM EDT Surgery [facility] Operating Room 1 [place] [address] Bill Graham MD [address] [place] [address] [address] [place] [id number] (LAPAROSCOPIC PERITONEAL DIALYSIS CATHETER INSERTION) Scheduled Procedures Name Priority Associated Diagnoses Date/Ti me LAPAROSCOPY, WITH PERITONEAL DIALYSIS CATHETER INSERTION Chronic kidney disease, stage V (HCC) 04/12/2025 7:30 AM EDT documented as of this encounter Visit Diagnoses Not on filedocumented in this encounter Care Teams Obstetrician And Gynaecologist Relationship Specialty Start Date End Date Félix Monroe, RAILROAD ENGINEER [address] [facility] [address] [place] [address] PCP - General Nurse Practitioner 08/25/22 documented as of this encounter
--- OUTSIDE RECORDS SUMMARY | 2025-04-11 11:03 | XMS_ITS | Encounter Summary ---
Author Organization [employer] ([place], [place], [place], [place]) Address [address] [place] [address] Care Team Providers Care Pasteurizer Name Role Phone Félix Monroe APRN Primary Care Provider Encounter Details Date Type Department Care Team (Late st Contact Info) Description 10/12/2019 Transcribed Document [facility] [place] [address] [place] [address] ProviderMaria Esther MD [address] [place], [place] 268181 Social History Tobacco Use Types Packs/Day Years Used Date Smoking Tobacco: Never Assessed Comments Unknown Sex and Gender Information Value Date Recorded Sex Assigned at Not on file Legal Sex Female 6:53 PM CDT Gender Identity Not on file Sexual Orientation Not on file documented as of this encounter Miscellaneous Notes * Cerner Conversion Note - Maria Esther ProviderMD - 10/12/2019 9:42 AM CDT Spiritual Care Short Form Entered On: 10/12/2019 10:22 EDT Performed On: 10/12/2019 9:42 EDT by MISBAH CHOI General Information, Spiritual Care Spiritual Care Referred by : Clothing Trades Workers initiated Reason for Visit : Initial Ministry Provided to : Patient Intervention/Comment/Summary Points : Provided supportive presence. Informed patient of Undertaker Assistant availability. Taoist Preference : Caodaism MISBAH CHOI - 10/12/2019 10:20 EDT documented in this encounter Plan of Treatment Upcoming Encounters Date Type Department Care Team (Late st Contact Info) Description 04/12/2025 7:30 AM EDT Hospital Encounter [facility] Operating Room 1 [place] [address] [place] [address] [place] [address] [address] [place] [address] 04/12/2025 7:30 AM EDT Anesthesia Event [facility] Operating Room 1 [place] [address] Lucio Szymanski MD [address] [place] [address] 04/12/2025 7:30 AM EDT - 04/12/2025 8:55 AM EDT Surgery [facility] Operating Room 1 [place] [address] [place] [address] [place] [address] [address] [place] [address] (LAPAROSCOPIC PERITONEAL DIALYSIS CATHETER INSERTION) Scheduled Procedures Name Priority Associated Diagnoses Date/Ti me LAPAROSCOPY, WITH PERITONEAL DIALYSIS CATHETER INSERTION Chronic kidney disease, stage V (HCC) 04/12/2025 7:30 AM EDT documented as of this encounter Visit Diagnoses Not on filedocumented in this encounter Care Teams Pasteurizer Relationship Specialty Start Date End Date Félix Monroe, TELETRAY OPERATOR [address] [facility] [address] [place] [address] PCP - General Nurse Practitioner 08/25/22 documented as of this encounter
--- OUTSIDE RECORDS SUMMARY | 2025-04-11 11:03 | XMS_ITS | Encounter Summary ---
Author Organization [employer] ([place], [place], [place], [place]) Address [address] [place] [address] Care Team Providers Care Clinical Resource Coordinator Name Role Phone Fer Félix Singh MICHAEL Primary Care Provider Encounter Details Date Type Department Care Team (Late st Contact Info) Description 09/04/[address] [facility] [place] Family Medicine [address] [place] [address] ProviderMaria Esther MD [address], [place] [id number] Social History Tobacco Use Types Packs/Day Years Used Date Smoking Tobacco: Never Assessed Comments Unknown Sex and Gender Information Value Date Recorded Sex Assigned at Not on file Legal Sex Female 6:53 PM CDT Gender Identity Not on file Sexual Orientation Not on file documented as of this encounter Miscellaneous Notes * Cerner Conversion Note - Historical ProviderMD - 09/04/2019 8:00 AM BEHAVIORAL MEDICAL DIRECTOR [facility]iac [facility] Pul[facility] Outpatient [facility] Entered On: 09/04/2019 8:31 EST Performed On: 09/04/2019 8:00 EST by Amber Thakkar, Jovanni-Clinical Coordinator I Cardiac and Pulmonary Outpatient [facility] Patient is scheduled for Phase 2 Cardiac rehab : Patient provided Cardiac Rehab Phase 2 facilities close to home Cardiac Outpatient Rehab Evaluation Comment : Referral for CR sent to [facility] per telephonic nurse case manager. Amber Thakkar, Jovanni-Clinical Coordinator I - 09/04/2019 8:31 EST Electronically signed by Nir [facility] Conversion Linux Server Administrator Cerner at 10/28/2022 7:26 PM CDT documented in this encounter Plan of Treatment Upcoming Encounters Date Type Department Care Team (Late st Contact Info) Description 04/12/2025 7:30 AM EDT Hospital Encounter [facility] Operating Room 1 [place] [address] Bill Graham MD [address] [facility] [address] [place] [address] 04/12/2025 7:30 AM EDT Anesthesia Event [facility] Operating Room 1 [place] [address] Lucio Szymanski MD [address] [place] [address] 04/12/2025 7:30 AM EDT - 04/12/2025 8:55 AM EDT Surgery [facility] Operating Room 1 [place] [address] [place] [address] [place] [address] [address] [place] [address] (LAPAROSCOPIC PERITONEAL DIALYSIS CATHETER INSERTION) Scheduled Procedures Name Priority Associated Diagnoses Date/Ti me LAPAROSCOPY, WITH PERITONEAL DIALYSIS CATHETER INSERTION Chronic kidney disease, stage V (HCC) 04/12/2025 7:30 AM EDT documented as of this encounter Visit Diagnoses Not on filedocumented in this encounter Care Teams Clinical Resource Coordinator Relationship Specialty Start Date End Date Félix Mnoroe, STOCK RAISER [address] [facility] [address] [place] [address] PCP - General Nurse Practitioner 08/25/22 documented as of this encounter
--- OUTSIDE RECORDS SUMMARY | 2025-04-11 11:03 | XMS_ITS | Encounter Summary ---
Author Organization [employer] ([place], [place], [place], [place]) Address [address] [place] [address] Care Team Providers Care Nutrition Services Associate Name Role Phone Félix Monroe APRN Primary Care Provider [phone] Encounter Details Date Type Department Care Team (Late st Contact Info) Description 10/12/2019 Transcribed Document [facility] [place] Family Medicine [facility] [place] [address] ProviderMaria Esther MD [address] [place], [place] [phone] Social History Tobacco Use Types Packs/Day Years Used Date Smoking Tobacco: Never Assessed Comments Unknown Sex and Gender Information Value Date Recorded Sex Assigned at Not on file Legal Sex Female 6:53 PM CDT Gender Identity Not on file Sexual Orientation Not on file documented as of this encounter Miscellaneous Notes * Cerner Conversion Note - Maria Esther ProviderMD - 10/12/2019 2:00 AM CDT Medical Service Representative Details Entered On: 10/13/2019 5:10 EDT Performed On: 10/12/2019 2:00 EDT by MARICARMEN GARCIA RN Order Details Order Detail : 0 IV Order Detail : 1 Oxygen Order Detail : 0 Nurse Collect Order Detail : 1 Lift/Transfer : Independent Central Line Order Detail : No Room Service : Appropriate Arterial Line : No MARICARMEN GARCIA, CROW - 10/13/2019 5:10 EDT documented in this encounter Plan of Treatment Upcoming Encounters Date Type Department Care Team (Late st Contact Info) Description 04/12/2025 7:30 AM EDT Hospital Encounter [facility] Operating Room 1 [place] [address] Bill Graham MD [address] [facility] [address] [place] [address] 04/12/2025 7:30 AM EDT Anesthesia Event [facility] Operating Room 1 [place] [address] Lucio Szymanski MD [address] [place] [address] 04/12/2025 7:30 AM EDT - 04/12/2025 8:55 AM EDT Surgery [facility] Operating Room 1 [place] [address] [place] [address] [place] [address] [address] [place] [address] (LAPAROSCOPIC PERITONEAL DIALYSIS CATHETER INSERTION) Scheduled Procedures Name Priority Associated Diagnoses Date/Ti me LAPAROSCOPY, WITH PERITONEAL DIALYSIS CATHETER INSERTION Chronic kidney disease, stage V (HCC) 04/12/2025 7:30 AM EDT documented as of this encounter Visit Diagnoses Not on filedocumented in this encounter Care Teams Nutrition Services Associate Relationship Specialty Start Date End Date Félix Monroe, ELECTRIC POWER SUPERINTENDENT [address] [facility] [address] [place] [address] PCP - General Nurse Practitioner 08/25/22 documented as of this encounter
--- OUTSIDE RECORDS SUMMARY | 2025-04-11 11:03 | XMS_ITS | Referral Summary ---
Author Organization [employer] ([place], [place], [place], [place]) Address [address] [address] Care Team Providers Care Director Of Photography Name Role Phone Félix Monroe MICHAEL Primary Care Provider [phone] Encounters Date Type Department Care Team Description 03/30/2025 11:15 AM EDT - 03/30/2025 11:59 PM EDT Hospital Encounter [facility] 1 [place] [address] Bill Graham MD Preop testing Discharge Disposition: Home or Self Care 03/30/2025 Travel 03/30/2025 8:48 AM EDT - 03/30/2025 11:14 AM EDT Hospital Encounter [facility] Preadmission Testing 1 [place] [address] Bill Graham MD Preoperative evaluation to rule out surgical contraindication (Primary Dx); Preop testing Discharge Disposition: Home or Self Care 03/29/2025 Orders Only [facility] [address] [place] [address] [address] [place] [address] Bill Graham MD Chronic kidney disease, stage V (HCC) (Primary Dx) 03/20/2025 1:37 PM EDT - 03/20/2025 11:59 PM EDT Hospital Encounter [facility] [address] [facility] [address] [place] [address] Bill Graham MD Other infectious disease Discharge Disposition: Home or Self Care 03/14/2025 Orders Only [facility] [address] [facility] [address] [place] [address] Bill Graham MD Other infectious disease (Primary Dx) 03/14/2025 Travel 03/14/2025 11:00 AM EDT Office Visit [facility] [address] [place] [address] [place] [address] Bill Graham MD ESRF (end stage renal failure) (HCC) (Primary Dx); Cardiomyopathy, dilated (HCC) from Last 3 Months Allergies Active Allergy Reactions Criticality Noted Date Comments Codeine Hives,Itching High 08/15/2022 Medications albuterol HFA (VENTOLIN HFA) 90 mcg/actuation inhaler Inhale 2 puffs by mouth every 6 (six) hours as needed for wheezing. 06/25/20 Active fluticasone propionate (FLONASE) 50 mcg/actuation nasal spray Administer 2 sprays into affected nostril(s) daily as needed for rhinitis. 06/25/20 Active rOPINIRole (REQUIP) 4 MG tablet Take 1 tablet (4 mg total) by mouth nightly. 07/23/19 Active acetaminophen (TYLENOL) 500 MG tablet Take 2 tablets (1,000 mg total) by mouth every 6 (six) hours as needed for pain or fever. Active bumetanide (BUMEX) 1 MG tablet Take 1 tablet (1 mg total) by mouth daily as needed (edema). 02/28/20 Active Additional Information Patient taking differently: 3 mgoral2 times daily, //Wednesday/Wednesday, Reported on 03/30/2025 magnesium oxide (MAG-OX) 400 mg (241.3 mg magnesium) tablet Take 1 tablet (400 mg total) by mouth 2 (two) times daily F/u with nephrology for refills. 60 tablet 02/28/20 Active Additional Information Patient taking differently:400 mg [...] mg total) by mouth daily as needed //Wedu /Wednesday. Active potassium chloride (KLOR-CON) 20 MEQ tablet Take 1 tablet (20 mEq total) by mouth daily ///Wednesday. Active traZODone (DESYREL) 150 MG tablet Take 1 tablet (150 mg total) by mouth every night as needed for Sleep. 06/25/20 22 025 Discontin ued(Thera py completed ) potassium chloride SA (K-DUR,KLOR-CON- M) 20 MEQ tablet Take 1 tablet (20 mEq total) by mouth daily as needed (Take with Bumex). 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 03/19/2021 Mixed hyperlipidemia 03/19/2021 [...] renal failure 08/15/2022 03/30/2025 Cardiomyopathy, dilated 06/03/202103/12 Social History Tobacco Use Types Packs/Day Years [...] Date Josias rded Speak language other than Thai at home Not on file 07/30/2023 Want [...] Description 04/12/2025 7:30 AM EDT Hospital Encounter [facility] Operating Room 1 [place] [address] [place] [address] [place] [address] [address] [place] [address] [phone] 04/12/2025 7:30 AM EDT Anesthesia Event [facility] Operating Room 1 [place] [address] Lucio Szymanski MD [address] [place], [place] [phone] 04/12/2025 7:30 AM EDT - 04/12/2025 8:55 AM EDT Surgery [facility] Operating Room 1 [place] [address] Bill Graham MD [facility] [address] [place], [place] [phone] (LAPAROSCOPIC PERITONEAL DIALYSIS CATHETER INSERTION) Scheduled Procedures Name Priority Associated Diagnoses Date/Ti me LAPAROSCOPY, WITH PERITONEAL DIALYSIS CATHETER INSERTION Chronic kidney disease, stage V (HCC) 04/12/2025 7:30 AM EDT Medical Devices Implanted Type Area Outlet Manager Device Identifier Shelf Expiration Date Model / Serial / Lot Grgee Srinivasanc Collagen [id number] - [id number] Implanted:Qty: 1 on 03/01/2023 by Gibran Melo MD at [facility] IMPLANTS Right: Arm Upper [employer] 09/08/2025 [id number] / / [id number] Procedures Procedure Name Priority Date/Time Associated [...] 10.0 K/ L 03/30/2025 10:50 AM EDT [facility] RBC 3.94 3.93 - 5.22 M/ L 03/30/2025 10:50 AM EDT [facility] Hemoglobin 11.3 11.2 - 15.7 GM/DL 03/30/2025 10:50 AM EDT [facility] Hematocrit 34.9 34.1 - 44.9 % 03/30/2025 10:50 AM EDT [facility] MCV 89 79 - 95 fL 03/30/2025 10:50 AM EDT [facility] MCH 28.7 25.6 - 32.2 pg 03/30/2025 10:50 AM EDT [facility] MCHC 32.4 32.2 - 35.5 GM/DL 03/30/2025 10:50 AM EDT [facility] RDW 17.2(H) 11.7 - 14.4 % 03/30/2025 10:50 AM EDT [facility] Platelets 234 140 - 375 K/CU MM 03/30/2025 10:50 AM EDT [facility] MPV 11.4 9.4 - 12.3 fL 03/30/2025 10:50 AM EDT [facility] Blood Venipuncture / Unknown 03/30/2025 10:29 AM EDT 03/30/2025 10:46 AM EDT us Bill Graham MD LAB BLOOD ORDERABLES Final Resul t [facility] [address] [place] [address] * (ABNORMAL) PT/INR, PTT (03/30/2025 10:29 AM EDT) aPTT 42.6(H) 22.0 - 32.0 seconds 03/30/2025 11:02 AM EDT [facility] Protime 14.0(H) 9.0 - 12.0 seconds 03/30/2025 11:02 AM EDT [facility] INR 1.28(H) 0.80 - 1.10 03/30/2025 11:02 AM EDT [facility] Blood Venipuncture / Unknown 03/30/2025 10:29 AM EDT 03/30/2025 10:46 AM EDT us Bill Graham MD LAB BLOOD ORDERABLES Final Resul t [facility] 1 [place] [address], [facility] [phone] * (ABNORMAL) Basic Metabolic Panel (03/30/2025 10:29 AM EDT) Sodium 134(L) 136 - 145 meq/L 03/30/2025 11:16 AM EDT [facility] Potassium 3.7 3.4 - 5.1 meq/L 03/30/2025 11:16 AM EDT [facility] CO2 20(L) 22 - 29 meq/L 03/30/2025 11:16 AM EDT [facility] Chloride 99 98 - 112 meq/L 03/30/2025 11:16 AM EDT [facility] Glucose 94 74 - 100 mg/dL 03/30/2025 11:16 AM EDT [facility] BUN 51.1(H) 9.8 - 20.1 mg/dL 03/30/2025 11:16 AM EDT [facility] Creatinine 3.61(H) 0.57 - 1.11 mg/dL 03/30/2025 11:16 AM EDT [facility] BUN/Creatinine 14 8 - 20 03/30/2025 11:16 AM EDT [facility] Calcium 9.2 8.4 - 10.2 mg/dL 03/30/2025 11:16 AM EDT [facility] Anion Gap 19(H) 4 - 12 03/30/2025 11:16 AM EDT [facility] eGFR (mL/min/1.73m2) 14(L) >=60 mL/min/1.7 3m2 03/30/2025 11:16 AM EDT [facility] Comment:ESTIMATED GFR IS NOT ACCURATE CREATININE CLEARANCE IN PREDICTING GLOMERULAR FILTRATION RATE. ESTIMATED GFR IS NOT APPLICABLE FOR DIALYSIS PATIENTS. Osmolality Calc 281.7 mOsm/kg 11:16 AM T [facility] Blood Venipuncture / Unknown 03/30/2025 10:29 AM EDT 03/30/2025 10:46 AM EDT us Bill Graham MD LAB BLOOD ORDERABLES Final Resul t Performing Organization Address City/[facility]/ZIP Co de Phone Number [facility] [address] [phone] * ECG 12 lead (03/30/2025 9:20 AM EDT) VENTRICULAR RATE EKG/MIN 80 BPM GE MUSE ATRIAL RATE (MCT) 340 BPM GE MUSE QRS-INTERVAL (MSEC) 156 ms GE MUSE QT Interval 498 ms GE MUSE QTC Interval 574 ms GE MUSE R AXIS (MCT) 130 degrees GE MUSE T Wave [place] 29 degrees GE MUSE [place] Diagnosis Ventricular-pa ashley rhythm Abnormal ECG When compared with ECG of 12-MAR-2023 09:42, Electronic ventricular pacemaker has replaced Sinus rhythm Confirmed by Carlos Castillo ([id number]) on 03/30/2025 8:54:44 PM GE MUSE 03/30/2025 9:20 AM EDT 03/30/2025 8:54 PM EDT us Bill Graham MD ECG ORDERABLES Final Result Performing Organization Address City/[facility] Co de Phone Number GE MUSE * CT ABDOMEN/PELVIS WITHOUT IV [...] Graham MD IMG CT ORDERABLES Final Result * CT chest [...] normal in size. Mild cardiomegaly. Postsurgical changes. Amy Alvarez MD IMG CT ORDERABLES Final [...] 2:40 PM EST 08/28/2019 8:04 PM EST [facility] Provider PATHOLOGY/CYTOLOGY ORDE RABLES Final Result [facility] [address] [place] [address], [facility] [phone] from Last 3 Months or Most Recently Relevant to Health Maintenance Insurance [facility] MEDICARE HMO Advance Directives For more information, please contact: [phone] * Full Code (Latest Code Status on File) Date Activated Date Inactivated Comments 03/04/2023 6:51 PM 03/06/2023 6:59 PM * Full Code Date Activated Date Inactivated Comments 02/26/2023 11:47 AM 02/27/2023 5:09 PM * Full Code Date Activated Date Inactivated Comments 02/07/2023 9:51 PM 02/10/2023 5:55 PM * Full Code Date Activated Date Inactivated Comments 08/15/2022 1:48 PM 08/25/2022 4:58 PM Care Teams Director Of Photography Relationship Specialty Start Date End Date Félix Monroe, COMMUNITY WORKER [address] [facility] [address] [place] [address] PCP - General Nurse Practitioner 08/25/22
--- OUTSIDE RECORDS SUMMARY | 2025-04-11 11:03 | XMS_ITS | Encounter Summary ---
Author Organization [employer] ([place], [place], [place], [place]) Address [address] [address] Care Team Providers Care Textile Science Technician Name Role Phone Félix Monroe MICHAEL Primary Care Provider [phone] Encounter Details Date Type Department Care Team (Late st Contact Info) Description 10/11/2019 Transcribed Document [facility] Family Medicine [address] [place] [address] ProviderMaria Esther MD [address] [place], [place] [address] Social History Tobacco Use Types Packs/Day Years Used Date Smoking Tobacco: Never Assessed Comments Unknown Sex and Gender Information Value Date Recorded Sex Assigned at Not on file Legal Sex Female 6:53 PM CDT Gender Identity Not on file Sexual Orientation Not on file documented as of this encounter Miscellaneous Notes * Cerner Conversion Note - Maria Esther ProviderMD - 10/11/2019 1:30 PM CDT Pain Assessment Entered On: 10/16/2019 20:44 EDT Performed On: 10/16/2019 18:08 EDT by Balwinder Leach RN Intervention Information: morphine Performed by BRYCE VANESSA RN on 10/16/2019 17:38:00 EDT morphine,2mg IV Push,Central line, distal,Pain (Severe 7-10) Pain Assessment Pain Assessment : Follow-up assessment Pain Scale Goal : 2 Pain Scale Used : 0-10 Scale Balwinder Leach RN - 10/16/2019 20:44 EDT Pain Scale Intensity : 2 Balwinder Leach RN - 10/16/2019 20:44 EDT Image 4 - Images currently included in the form version of this document have not been included in the text rendition version of the form. documented in this encounter Plan of Treatment Upcoming Encounters Date Type Department Care Team (Late st Contact Info) Description 04/12/2025 7:30 AM EDT Hospital Encounter [facility] Operating Room 1 [place] [address] [place] [address] [place] [address] [address] 04/12/2025 7:30 AM EDT Anesthesia Event [facility] Operating Room 1 [place] [address] Lucio Szymanski MD [address] [place] [address] 04/12/2025 7:30 AM EDT - 04/12/2025 8:55 AM EDT Surgery [facility] Operating Room 1 [place] [address] Bill Graham MD [address] [place] [address] (LAPAROSCOPIC PERITONEAL DIALYSIS CATHETER INSERTION) Scheduled Procedures Name Priority Associated Diagnoses Date/Ti me LAPAROSCOPY, WITH PERITONEAL DIALYSIS CATHETER INSERTION Chronic kidney disease, stage V (HCC) 04/12/2025 7:30 AM EDT documented as of this encounter Visit Diagnoses Not on filedocumented in this encounter Care Teams Textile Science Technician Relationship Specialty Start Date End Date Félix Monroe, FUR DRESSING SUPERVISOR [address] [facility] [address] [place] [address] PCP - General Nurse Practitioner 08/25/22 documented as of this encounter
--- OUTSIDE RECORDS SUMMARY | 2025-04-11 11:03 | XMS_ITS | Encounter Summary ---
Author Organization [employer] ([place], [place], [place], [place]) Address [address] [address] Care Team Providers Care Work Ticket Distributor Name Role Phone Félix Monroe APRN Primary Care Provider [phone] Encounter Details Date Type Department Care Team (Late st Contact Info) Description 10/17/[address] [facility] [place] Family Medicine [address] [place] [address] ProviderMaria Esther MD [address] [place], [place] [address] Social History Tobacco Use Types Packs/Day Years Used Date Smoking Tobacco: Never Assessed Comments Unknown Sex and Gender Information Value Date Recorded Sex Assigned at Not on file Legal Sex Female 6:53 PM CDT Gender Identity Not on file Sexual Orientation Not on file documented as of this encounter Miscellaneous Notes * Cerner Conversion Note - Maria Esther ProviderMD - 10/17/2019 10:27 AM CDT Air Conditioning Insulation Installer Details Entered On: 10/17/2019 10:27 EDT Performed On: 10/17/2019 10:27 EDT by LISA FARIAS RN Order Details Transport Mode Order Detail : Portable Isolation Precautions Order Detail : Standard Precautions Order Detail : 0 IV Order Detail : 1 Oxygen Order Detail : 1 Nurse Collect Order Detail : 1 Lift/Transfer : Minimal Central Line Order Detail : Yes Room Service : Appropriate Arterial Line : Yes LISA FARIAS RN - 10/17/2019 10:27 EDT documented in this encounter Plan of Treatment Upcoming Encounters Date Type Department Care Team (Late st Contact Info) Description 04/12/2025 7:30 AM EDT Hospital Encounter [facility] Operating Room 1 [place] [address] Bill Graham MD [address] [facility] [address] [place] [address] 04/12/2025 7:30 AM EDT Anesthesia Event [facility] Operating Room 1 [place] [phone] Lucio Szymanski MD [address] [place] [address] 04/12/2025 7:30 AM EDT - 04/12/2025 8:55 AM EDT Surgery [facility] Operating Room 1 [place] [address] [place] [address] [place] [address] [place] [address] (LAPAROSCOPIC PERITONEAL DIALYSIS CATHETER INSERTION) Scheduled Procedures Name Priority Associated Diagnoses Date/Ti me LAPAROSCOPY, WITH PERITONEAL DIALYSIS CATHETER INSERTION Chronic kidney disease, stage V (HCC) 04/12/2025 7:30 AM EDT documented as of this encounter Visit Diagnoses Not on filedocumented in this encounter Care Teams Work Ticket Distributor Relationship Specialty Start Date End Date Félix Monroe, PEDIATRIC PHYSICIAN ASSISTANT [address] [facility] [address] [place] [address] PCP - General Nurse Practitioner 08/25/22 documented as of this encounter
--- OUTSIDE RECORDS SUMMARY | 2025-04-11 11:03 | XMS_ITS | Encounter Summary ---
Author Organization [employer] ([place], [place], [place], [place]) Address [address] [address] Care Team Providers Care Sweatband Decorating Machine Operator Name Role Phone Fer Félix Singh MICHAEL Primary Care Provider [phone] Encounter Details Date Type Department Care Team (Late st Contact Info) Description 10/11/2019 Transcribed Document [facility] [place] Family Medicine [place] [address] ProviderMaria Esther MD [address] [place] [address] Social History Tobacco Use Types Packs/Day Years Used Date Smoking Tobacco: Never Assessed Comments Unknown Sex and Gender Information Value Date Recorded Sex Assigned at Not on file Legal Sex Female 6:53 PM CDT Gender Identity Not on file Sexual Orientation Not on file documented as of this encounter Miscellaneous Notes * Cerner Conversion Note - Maria Esther Reyes MD - 10/11/2019 7:24 PM CDT Patient: CORRIE SMITH Age: 49 years Sex: Female : 1970 Associated Diagnoses: None Author: GILES BLAS MD-INT Basic Information ADMISSION HISTORY AND PHYSICAL DATE OF ADMISSION: Admit Date 10/11/2019 15:38 PRIMARY CARE PROVIDER: Primary Care Provider WINSTON GREEN MD-INT Chief Complaint 1. feeling tired 2. Dark colored urine History of Present Illness TRANSFERRING FACILITY: [facility] HIITORY OF PRESENT ILLNESS: Patient is a 49-year-old white female with history of severe mitral valve insufficiency status post mitral valve annuloplasty on 08/29/[address] Александр avila at [facility] and was discharged in a stable asymptomatic condition on 09/04/2019. She has a long history of tobacco abuse , she said she last smoked in August 2019 since her heart surgery She presented yesterday to [facility] with dark colored urine then what it seemed to her as blood in urine for two days. She has been feeling tired for two days. She was admitted to [facility] yesterday. She was found to have anemia and she was given 2 units of packed red blood cells yesterday. Today she had echocardiogram and she was told that she has a leaky mitral valve. Patient was transferred to [facility] for higher level of care for evaluation of anemia and for evaluation of her mitral valve. Patient is seen and evaluated. She denies chest pain, dizziness or syncope, palpitations, melena, hematochezia or hematemesis. At [facility] her blood pressure was greater than 200 she denies a chest pain no headache no visionary changes Workup at [facility] hemoglobin of 5 which improved to 9 overnight after receiving 2 units PRBC, mildly elevated troponin 0.1??4, elevated proBNP greater than 30,000 and creatinine of 3. Review of Systems Constitutional: Weakness, Fatigue, Decreased activity, No fever, No chills. Eye: No recent visual problem, No discharge. Ear/Nose/Mouth/Throat: No decreased hearing, No nasal congestion, No sore throat. Respiratory: No shortness of breath, No cough, No sputum production, No wheezing. Cardiovascular: No chest pain, No peripheral edema. Gastrointestinal: No nausea, No vomiting, No diarrhea, No heartburn, No abdominal pain, No hematemesis. Genitourinary: Hematuria, No dysuria. Hematology/Lymphatics: No bruising tendency. Endocrine: No excessive thirst, No polyuria, No cold intolerance. Immunologic: Not immunocompromised, No recurrent fevers. Musculoskeletal: No neck pain, No muscle pain. Integumentary: No rash, No pruritus, No dryness. Neurologic: No numbness, No tingling. Psychiatric: No anxiety, No depression, Not suicidal. VASCULAR: No claudication Health Status Allergies: Allergic Reactions (Selected) Severity Not Documented Codeine- Welts, nausea and hives., Allergies (1) Active Reaction gerald Fu Current medications: (Selected) Inpatient Medications Ordered Core.5 mg, Oral, BID DuoNeb 0.5 mg-2.5 mg/3 mL inhalation solution: 3 mL, Nebulized Inhalation, Q6H, PRN: Shortness of Breath Pepcid: 20 mg, Oral, Daily Phenergan: 6.25 mg, IntraVENous, Q6H, PRN: Nausea Senna S: 1 Tab, Oral, BID Tylenol: [...] 10 mg, IV Push, Q6H, PRN: Hypertension magnesium sulfate: 1 Gram, 100 mL, 100 mL/Hr, IV Piggyback, 1-Time morphine: 2 mg, IV Push, Q2H, PRN: Pain (Severe 7-10) niCARdipine injection 25 mg + NaCl 0.9% for drip 250 mL: TITRATE, IntraVENous rOPINIRole: 1 mg, Oral, At Bedtime Incomplete Requip 1 mg oral tablet(obsolete): 1 Tab, Oral, At Bedtime Prescriptions Prescribed acetaminophen-HYDROcodone 325 mg-5 mg oral [...] 40 mg, Oral, Daily, 0 Refill(s), Medications (16) Active Scheduled: (8) amLODIPine 5 mg tab 5 mg 1 Tab, Oral, Daily carvedilol 12.5 mg tab 12.5 mg 1 Tab, Oral, BID doxycycline hyclate + NaCl 0.9% 100 mL 100 mg, IV Piggyback, Q12H famotidine 20 mg tab 20 mg 1 Tab, Oral, Daily magnesium sulfate 1 Gram 100 mL, IV Piggyback, 1-Time piperacillin-tazobactam + NaCl 0.9% 50 mL 2.25 Gram, IV Piggyback, Q6HInt rOPINIRole 1 mg tab 1 mg 1 Tab, Oral, At Bedtime senna/docusate 8.6/50 mg tab 1 Tab, Oral, BID Continuous: (1) niCARdipine 25 mg + NaCl [...] initial episode of care / SNOMED CT 8206156401 / Confirmed At risk for sleep apnea / IMO 25688049 / Confirmed CHF, acute on chronic / SNOMED CT 75490714 / Confirmed Class 3 Systolic GERD - Gastro-esophageal reflux disease / SNOMED CT 2971759470 / Confirmed H/O: TIA / SNOMED CT 472148918 / Confirmed History of laparoscopic adjustable gastric banding / SNOMED CT 2464120337 / Confirmed History of obstructive sleep apnea / IMO 15780836 / Confirmed HTN - Hypertension / SNOMED CT 0581987122 / Confirmed Mitral regurgitation / SNOMED CT 78428226 / Confirmed Prolonged QT interval / SNOMED CT 267087810 / Confirmed Pulmonary edema / SNOMED CT 50351291 / Confirmed Restless legs syndrome / SNOMED CT 91869460 / Confirmed RF - Renal failure, Stage 4 / SNOMED CT 0001499369 / Confirmed Sleep apnea-before weight loss surgery / SNOMED CT 544077563 / Confirmed, Active Problems (15) At risk [...] Past Medical History: Active HTN - Hypertension (9391850230) Family History: No family history items have been selected or recorded., Significant for hypertension Procedure history: lap band in 2008 at [...] 16:20) 93 (OCT 10 16:20) Mon HR 93 (OCT 10 18:45) 93 (OCT 10 16:15) 103 (OCT 10 17:15) Resp Rate H 30 (OCT 10 18:45) 15 (OCT 10 16:15) H 52 (OCT 10 17:45) SBP 130 (OCT 10 18:45) 129 (OCT 10 18:30) H 156 (OCT 10 17:00) DBP 69 (OCT 10 18:45) 69 (OCT 10 18:45) H 91 (OCT 10 15:45) MAP 92 (OCT 10 18:45) 92 (OCT 10 18:45) 113 (OCT 10 15:45) SpO2 99 (OCT 10 18:45) 98 (OCT 10 15:45) 100 (OCT 10 17:00) General: Alert and oriented, No acute distress. Eye: Pupils are equal, round and reactive to light, Extraocular movements are intact, Normal conjunctiva. HENT: Ear: Within normal limits. Nose: Both nostrils, Within normal limits. Neck: Supple, Non-tender, No jugular venous distention, No lymphadenopathy, No thyromegaly. Respiratory: Breath sounds are equal, Symmetrical chest wall expansion, No chest wall tenderness. Respirations: Not tachypneic. Pattern: Regular. Breath sounds: Bilateral, No rales present, No rhonchi present, No wheezes present. Breath sounds: No rales present. Cardiovascular: S1, S2, No murmur, Non-displaced PMI. Arterial pulses: Bilateral, Posterior tibial, Dorsalis pedis, 3+. Capillary refill: Within normal limits. Gastrointestinal: Soft, Non-tender, Non-distended, Normal bowel sounds, No organomegaly. Genitourinary: No costovertebral angle tenderness. Musculoskeletal: Normal range of motion, Normal strength, No tenderness, No swelling. Integumentary: Warm. Neurologic: Alert, Oriented, Normal sensory, Normal motor function, Cranial Nerves II-XII are grossly intact. Cognition and Speech: Oriented, Speech clear and coherent. Psychiatric: Cooperative, Appropriate mood & affect. Review / Management Results review: Labs (Last four charted values) WBC H 13.0 (OCT 10) HB L 10.1 (OCT 10) HCT L 29.4 (OCT 10) Plt 178 (OCT 10) Na L 135 (OCT 10) K 3.5 (OCT 10) Cl 105 (OCT 10) CO2 22 (OCT 10) BUN H 24 (OCT 10) Cr H 2.70 (OCT 10) Glu R H 136 (OCT 10) Ca 9.1 (OCT 10) Lactic 1.2 (OCT 10) PT 11.2 (OCT 10) INR 1.1 (OCT 10) AST H 145 (OCT 10) ALT 22 (OCT 10) ALK P 95 (OCT 10) T Bili H 3.0 (OCT 10) PTN 8.0 (OCT 10) ALB 3.9 (OCT 10) Lipase 147 (OCT 10) Troponin H 0.091 (OCT 10) . Radiology results OCT 10 17:32 L 135 105 H 24 / H 136 3.5 22 H 2.70 \ RADIOLOGIC IMAGING: Chest x- ray is pending EKG: sinus tach 100, PAC's, prolonged QTc 552 Impression and Plan ASSESSMENT AND PLANS: Acute blood loss anemia, with possible hemolytic anemia Presenting hemoglobin of 5 at outside facility Transfuse 2 units of packed blood cells on 10/10/2019 Hold aspirin Serial hemoglobin and hematocrit every 6 hours and transfuse as needed Possible acute hemolytic anemia with recent mitral valve surgery: A consult has been placed to hematology/oncology We'll monitor CBC Severe mitral valve insufficiency s/p recent mitral valve Annuloplasty 08/29/[address] Александр Valdez. Cardiothoracic surgery is consulted Patient is a mechanical stable Dark-colored urine [ rather than hematuria ] No active hematuria at this time No dysuria Abdominal exam admission is benign Will check CT scan of the abdomen and pelvis without contrast Hypertensive crisis/hypertensive urgency Patient has been placed on Cardene drip Resume Coreg and amlodipine Prolonged QT cc interval 552 Evaluated by cardiology. Cardiac monitoring Chronic kidney disease stage 4: No need for hydration at this time. We will consult nephrology Mild hyperbilirubinemia with isolated elevation of AST suggesting hemolytic process Will repeat CMP in a.m. Will recheck total bilirubin and direct bilirubin Chronic systolic congestive heart failure, stable, asymptomatic No IVA inhibitor or angiotensin receptor evan secondary to renal failure Resume Coreg Gastrointestinal ( GI ) prophylaxis : I started the patient on Protonix DEEP VEIN THROMBOSIS ( DVT ) prophylaxis: I placed the patient on sequential compression devices ( Compression Boots ) while in bed. CODE STATUS: FULL code. TIME SPENT : 50 minutes in evaluation documented in this encounter Plan of Treatment Upcoming Encounters Date Type Department Care Team (Late st Contact Info) Description 04/12/2025 7:30 AM EDT Hospital Encounter [facility] Operating Room 1 [place] [address] Bill Graham MD [address] [facility] [address] [place] [address] 04/12/2025 7:30 AM EDT Anesthesia Event [facility] Operating Room 1 [place] [address] Lucio Szymanski MD [address] [place] [address] 04/12/2025 7:30 AM EDT - 04/12/2025 8:55 AM EDT Surgery [facility] Operating Room 1 [place] [address] [place] [address] [place] [address] [address] [place] [address] (LAPAROSCOPIC PERITONEAL DIALYSIS CATHETER INSERTION) Scheduled Procedures Name Priority Associated Diagnoses Date/Ti me LAPAROSCOPY, WITH PERITONEAL DIALYSIS CATHETER INSERTION Chronic kidney disease, stage V (HCC) 04/12/2025 7:30 AM EDT documented as of this encounter Visit Diagnoses Not on filedocumented in this encounter Care Teams Sweatband Decorating Machine Operator Relationship Specialty Start Date End Date Félix Monroe, BALER OPERATOR [address] [facility] [address] [place] [address] PCP - General Nurse Practitioner 08/25/22 documented as of this encounter
--- OUTSIDE RECORDS SUMMARY | 2025-04-11 11:04 | XMS_ITS | Encounter Summary ---
Author Organization [employer] ([place], [place], [place], [place]) Address [address] [address] Care Team Providers Care Painter Name Role Phone Fer Félix Singh MICHAEL Primary Care Provider [phone] Encounter Details Date Type Department Care Team (Late st Contact Info) Description 10/15/2019 Transcribed Document [facility] [place] Medicine [address] [place] [address] ProviderMaria Esther MD [address], [place] [id number] Social History Tobacco Use Types Packs/Day Years Used Date Smoking Tobacco: Never Assessed Comments Unknown Sex and Gender Information Value Date Recorded Sex Assigned at Not on file Legal Sex Female 6:53 PM CDT Gender Identity Not on file Sexual Orientation Not on file documented as of this encounter Miscellaneous Notes * Cerner Conversion Note - Maria Esther ProviderMD - 10/15/2019 2:00 AM CDT [employer] Consultant Details Entered On: 10/15/2019 3:38 EDT Performed On: 10/15/2019 2:00 EDT by Latia Gonzalez RN Order Details Transport Mode Order Detail : Wheelchair Isolation Precautions Order Detail : Standard Precautions Order Detail : 0 IV Order Detail : 1 Oxygen Order Detail : 0 Nurse Collect Order Detail : 0 Lift/Transfer : Independent Central Line Order Detail : No Room Service : Appropriate Arterial Line : No Latia Gonzalez RN - 10/15/2019 3:38 EDT Electronically signed by Evaristo Loyola Conversion [employer] Media Specialist Cerner at 10/28/2022 7:02 PM CDT documented in this encounter Plan of Treatment Upcoming Encounters Date Type Department Care Team (Late st Contact Info) Description 04/12/2025 7:30 AM EDT Hospital Encounter [facility] Operating Room 1 [place] [address] [place] [address] [place] [address] [address] [place] [address] 04/12/2025 7:30 AM EDT Anesthesia Event [facility] Operating Room 1 [place] [address] Lucio Szymanski MD [address] [place] [id number] 04/12/2025 7:30 AM EDT - 04/12/2025 8:55 AM EDT Surgery [facility] Operating Room 1 [place] [address] Bill Graham MD [address] [place] [address] [address] [place] [address] (LAPAROSCOPIC PERITONEAL DIALYSIS CATHETER INSERTION) Scheduled Procedures Name Priority Associated Diagnoses Date/Ti me LAPAROSCOPY, WITH PERITONEAL DIALYSIS CATHETER INSERTION Chronic kidney disease, stage V (HCC) 04/12/2025 7:30 AM EDT documented as of this encounter Visit Diagnoses Not on filedocumented in this encounter Care Teams Painter Relationship Specialty Start Date End Date Félix Monroe, JUNIOR ARCHITECT [address] [facility] [address] [place] [address] PCP - General Nurse Practitioner 08/25/22 documented as of this encounter
--- OUTSIDE RECORDS SUMMARY | 2025-04-11 11:04 | XMS_ITS | Encounter Summary ---
Author Organization [employer] ([place], [place], [place], [place]) Address [address] [address] Care Team Providers Care Health Insurance Sales Agent Name Role Phone Félix Monroe APRN Primary Care Provider [phone] Encounter Details Date Type Department Care Team (Late st Contact Info) Description 10/16/2019 Transcribed Document [facility] Radiology 1 [place] [address] Lucio Szymanski MD [address] [place] [address] Social History Tobacco Use Types Packs/Day Years Used Date Smoking Tobacco: Never Assessed Comments Unknown Sex and Gender Information Value Date Recorded Sex Assigned at Not on file Legal Sex Female 6:53 PM CDT Gender Identity Not on file Sexual Orientation Not on file documented as of this encounter Miscellaneous Notes * Cerner Conversion Note - Lucio Szymanski MD - 10/16/2019 2:00 PM EDT DATE OF SERVICE: 10/16/2019 TRANSESOPHAGEAL ECHOCARDIOGRAM TRANSESOPHAGEAL ECHOCARDIOGRAM MACHINE: Jose #1. SURGEON: Александр Valdez MD PROCEDURES: Redo sternotomy and mitral valve replacement. CLINICAL INFORMATION AND INDICATION: The procedure was performed at the surgeon's request for valve evaluation. The procedure was carried out in the operating room with the patient under general anesthesia. The OmniPlane probe was passed easily, and images were acquired by Dr. Szymanski. The aortic valve was tricuspid with normal mobile leaflets. There was no aortic insufficiency. No aortic stenosis. Aortic valve peak and mean gradient of 7 and 3 and aortic valve area of 2.95 sq cm by planimetry. Aortic aneurysm measured 2.3 cm, sinotubular junction 2.9 cm, ascending aorta 3.3 cm. There was previous mitral valve repair. There was tethering of the posterior leaflet. There is a mitral valve ring in place. The mitral annulus is 2.8 cm. There is no stenosis. Mean valve gradient 3 and mitral valve area 3.49 sq cm by pressure half-time. There is severe mitral regurgitation and multiple regurgitant jets. The mitral valve ring acted as a lip over the mitral valve leaflets. There were regurgitant jets shooting into the mitral valve ring lip creating a ramp effect, likely the cause of the patient's hemolysis of red blood cells. The left atrium was enlarged. No clots or mass seen in the left atrial appendage. The tricuspid valve morphology was normal, and there were moderate regurgitation. Right atrium was normal in size, and there was eustachian valve present. Interatrial septum was intact. Normal intact fossa ovalis. Color-flow demonstrated no flow across the septum. Pulmonary valve demonstrated trace insufficiency. Interventricular septum was intact. Left ventricle was severely hypertrophied and demonstrated normal function with ejection fraction 60%. No segmental wall motion abnormalities. Right ventricle was of normal size and function. There is grade 3 protruding atheroma, less than 5 mm of the descending and transverse aorta, and grade 2 minimal changes of the ascending aorta. There is no aortic dissection seen. No pleural effusion. No pericardial fluid identified. Post cardiopulmonary bypass, left ventricular function impaired. Ejection fraction of 40% with septal and inferior wall hypokinesis. There is right ventricular hypokinesis. There has been replacement of mechanical mitral valve with a mean gradient of 3. No regurgitation. No stenosis. No paravalvular leak. Normal cleansing jets are identified. There is moderate tricuspid regurgitation. There is no aortic insufficiency. No aortic dissection seen. IMPRESSION: Pre-cardiopulmonary bypass, left ventricular function normal. Ejection fraction 60%. There is severe left ventricular hypertrophy. Right ventricle is of normal size and function. There is mild tricuspid regurgitation. There is severe mitral regurgitation. There is previous repaired mitral valve. There is mitral valve ring that acts as a lip over the mitral valve leaflets with a regurgitant jet shooting into the lip creating a ramp effect. Post-cardiopulmonary bypass, left ventricular function impaired, ejection fraction of 40% with inferior and septal wall hypokinesis. Right ventricle was hypokinetic. There is moderate tricuspid regurgitation. There has been replacement of mechanical mitral valve with a mean gradient of 3. No paravalvular leak. No regurgitation. No stenosis. Normal cleansing jets were identified. These findings were discussed with the surgeon, Dr. Valdez. /[id number] Lucio Szymanski MD JBB/AQ / JBB / MODL /[id number] documented in this encounter Plan of Treatment Upcoming Encounters Date Type Department Care Team (Late st Contact Info) Description 04/12/2025 7:30 AM EDT Hospital Encounter [facility] Operating Room 1 [place] [address] Bill Graham MD [address] [place] [address] 04/12/2025 7:30 AM EDT Anesthesia Event [facility] Operating Room 1 [place] [address] Lucio Szymanski MD [address] [place], [place] [id number] 04/12/2025 7:30 AM EDT - 04/12/2025 8:[address] [facility] Operating Room 1 [place] [address] Bill Graham MD [address] [place] [address] (LAPAROSCOPIC PERITONEAL DIALYSIS CATHETER INSERTION) Scheduled Procedures Name Priority Associated Diagnoses Date/Ti me LAPAROSCOPY, WITH PERITONEAL DIALYSIS CATHETER INSERTION Chronic kidney disease, stage V (HCC) 04/12/2025 7:30 AM EDT documented as of this encounter Visit Diagnoses Not on filedocumented in this encounter Care Teams Health Insurance Sales Agent Relationship Specialty Start Date End Date Félix Monroe, BOOK REPAIRER [address] [place] [address] PCP - General Nurse Practitioner 08/25/22 documented as of this encounter
--- OUTSIDE RECORDS SUMMARY | 2025-04-11 11:04 | XMS_ITS | Encounter Summary ---
Author Organization [employer] ([place], [place], [place], [place]) Address [address] [address] Care Team Providers Care Receiver Name Role Phone Monroe Félix Francisco RODRIGUEZ Primary Care Provider [phone] Encounter Details Date Type Department Care Team (Late st Contact Info) Description 10/16/2019 Transcribed Document [facility] Family Medicine [address] [place] [address] ProviderMaria Esther MD [address] [place] [address] Social History Tobacco Use Types Packs/Day Years Used Date Smoking Tobacco: Never Assessed Comments Unknown Sex and Gender Information Value Date Recorded Sex Assigned at Not on file Legal Sex Female 6:53 PM CDT Gender Identity Not on file Sexual Orientation Not on file documented as of this encounter Miscellaneous Notes * Cerner Conversion Note - Maria Esther Reyes MD - 10/16/2019 7:43 PM CDT [facility] Entered On: 10/19/2019 12:46 EDT Performed On: 10/16/2019 19:43 EDT by EMILY KWAN Cardiac and Pulmonary Outpatient [facility] Phase 2 Cardiac Rehab Criteria Met : Heart Valve Surgery Criteria Disqualifying for Phase 2 Cardiac Rehab : Other: Patient may consider Cardiac Rehabilitation in [place], which is closer to home. Cardiac Education Topics Discussed : Stress, Cardiac Rehab Phase 2 Additional Info Provided and/or Modified : Cardiac Rehab benefits and Outcomes Patient is scheduled for Phase 2 Cardiac rehab : No Cardiac Outpatient Rehab Evaluation Comment : Patient may consider Cardiac Rehabilitation close to home in [place] in the future. EMILY KWAN - 10/19/2019 12:44 EDT documented in this encounter Plan of Treatment Upcoming Encounters Date Type Department Care Team (Late st Contact Info) Description 04/12/2025 7:30 AM EDT Hospital Encounter [facility] Operating Room 1 [place] [address] [place] [address] [place] [address] [address] [place] [address] 04/12/2025 7:30 AM EDT Anesthesia Event [facility] Operating Room 1 [place] [address] Lucio Szymanski MD [address] [place] [address] 04/12/2025 7:30 AM EDT - 04/12/2025 8:[address] [facility] Operating Room 1 [place] [address] Bill Graham MD [address] [place] [address] [address] [place] [address] (LAPAROSCOPIC PERITONEAL DIALYSIS CATHETER INSERTION) Scheduled Procedures Name Priority Associated Diagnoses Date/Ti me LAPAROSCOPY, WITH PERITONEAL DIALYSIS CATHETER INSERTION Chronic kidney disease, stage V (HCC) 04/12/2025 7:30 AM EDT documented as of this encounter Visit Diagnoses Not on filedocumented in this encounter Care Teams Receiver Relationship Specialty Start Date End Date Félix Monroe, ELEMENT SETTER [address] [facility] [address] [place] [address] PCP - General Nurse Practitioner 08/25/22 documented as of this encounter
--- OUTSIDE RECORDS SUMMARY | 2025-04-11 11:04 | XMS_ITS | Encounter Summary ---
Author Organization [employer] ([place], [place], [place], [place]) Address [address] [address] Care Team Providers Care Visitor Services Information Assistant Name Role Phone Félix Monroe APRN Primary Care Provider [phone] Encounter Details Date Type Department Care Team (Late st Contact Info) Description 10/18/2019 Transcribed Document [facility] Family Medicine [address] [place] [address] ProviderMaria Esther MD [address] [place], [place] [phone] Social History Tobacco Use Types Packs/Day Years Used Date Smoking Tobacco: Never Assessed Comments Unknown Sex and Gender Information Value Date Recorded Sex Assigned at Not on file Legal Sex Female 6:53 PM CDT Gender Identity Not on file Sexual Orientation Not on file documented as of this encounter Miscellaneous Notes * Cerner Conversion Note - Maria Esther ProviderMD - 10/18/2019 5:29 PM CDT Evaluation, Occupational Therapy Entered On: 10/19/2019 10:16 EDT Performed On: 10/19/2019 9:46 EDT by RUY PAYAN OTR/Dhara General Information, OT Co-treated by, OT : Physical Therapist General Information Comment, OT : Diagnosis: chronic renal failure, COPD RUY PAYAN OTR/L - 10/19/2019 13:50 EDT Visit Type, OT : Initial evaluation RUY PAYAN OTR/L - 10/19/2019 10:16 EDT Patient Orders : Order Date Order Ordering 10/18/2019 17:29 Consult to Occupational Therapy Ordered By: FELIZ WILSON MD-CAT Active Diagnoses : 10/12/2019 12:00 Cannabis use, unspecified, uncomplicated 10/12/2019 12:00 Chronic kidney disease, stage 4 (severe) 10/12/2019 12:00 Chronic obstructive pulmonary disease, unspecified 10/12/2019 12:00 Chronic systolic (congestive) heart failure 10/12/2019 12:00 Essential (primary) hypertension 10/12/2019 12:00 Gastro-esophageal reflux disease without esophagitis 10/12/2019 12:00 Nicotine dependence, unspecified, in remission 10/12/2019 12:00 Non-ST elevation (NSTEMI) myocardial infarction 10/12/2019 12:00 Obesity, unspecified 10/12/2019 12:00 Restless legs syndrome 10/12/2019 12:00 Sleep apnea, unspecified 10/12/2019 12:00 Transient cerebral ischemic attack, unspecified Admission Date : 10/11/2019 15:38 Personal Devices : Personal Devices Dentures, upper, Dentures, lower Assistive Devices : Assistive Devices No Devices Recorded RUY PAYAN OTR/L - 10/19/2019 13:50 EDT Isolation Maintained : Contact RUY PAYAN OTR/L - 10/19/2019 10:16 EDT General Status Patient Received Status : Supine in bed Treatment Start Time : 10/19/2019 9:36 EDT Patient Left Status : Supine in bed, RN/PCT informed, All needs met and within reach Treatment End Time : 10/19/2019 9:46 EDT Treatment Time : 10 Minute(s) RUY PAYAN OTR/L - 10/19/2019 13:50 EDT History and Environment, OT Living Situation, Therapy : Home Patient Lives With : Spouse Persons Providing Information : Patient Home Equipment, Therapy : None Home Setup : One story Ramp : Yes RUY PAYAN OTR/L - 10/19/2019 13:50 EDT Prior LOF Bathing, OT : Independent Prior LOF Bed Mobility : Independent Prior LOF Upper Body Dressing, OT : Independent Prior LOF Lower Body Dressing, OT : Independent Prior LOF Toileting : Independent Prior LOF Transfer : Independent Prior LOF Grooming, OT : Independent Prior LOF for IADLs, OT : Independent RUY PAYAN OTR/L - 10/19/2019 13:50 EDT Upper Extremity Right UE Active ROM : WFL Right UE Strength : WFL Left UE Active ROM : WFL Left UE Strength : WFL RUY PAYAN OTR/Dhara - 10/19/2019 13:50 EDT Self Care/Home Management, OT Self Feeding Assist Level, OT : Independent, complete Grooming Assist Level, OT : Independent, complete Bathing Assist Level, OT : Independent, complete Upper Body Dressing Assist Level, OT : Independent, complete Lower Body Dressing Assist Level, OT : Independent, complete Toileting Assist Level : Independent, complete RUY PAYAN OTR/L - 10/19/2019 13:50 EDT Functional Mobility Mobility Grid Supine to Sit : Rehab Complete independence Sit to Stand : Rehab Complete independence Bed to Chair : Rehab Complete independence Chair to Bed : Rehab Complete independence Stand to Sit : Rehab Complete independence Sit to Supine : Rehab Complete independence RUY PAYAN OTR/L - 10/19/2019 13:50 EDT Cognition Assessment, OT Orientation : Oriented x 4 RUY PAYAN OTR/L - 10/19/2019 13:50 EDT Plan of Care, OT OT Tx Plan/Goals Established w Patient : No RUY PAYAN OTR/Dhara - 10/19/2019 13:50 EDT Treatment Note Subjective Comment : Pt agreeable Patient's Response to Treatment : Pt tolerated evaluation well Additional Objective Information : Pt supine upon arrival. Pt independent supine to sit. Pt donned socks indpendently. Pt ambulated in room and hallway, no AD. Pt returned to room, left with needs met and CL in reach. Assessment : No skilled OT needs Plan for Treatment : Eval only RUY PAYAN OTNitin/L - 10/19/2019 13:50 EDT Pain Assessment Pain Score Pre-Intervention : 0 RUY PAYAN OTR/Dhara - 10/19/2019 13:50 EDT Image 1 - Images currently included in the form version of this document have not been included in the text rendition version of the form. [facility] OT Charges OT Eval Low Complexity : 1 RUY PAYAN OTR/L - 10/19/2019 13:50 EDT documented in this encounter Plan of Treatment Upcoming Encounters Date Type Department Care Team (Late st Contact Info) Description 04/12/2025 7:30 AM EDT Hospital Encounter [facility] Operating Room 1 [place] [address] Bill Graham MD [address] [facility] [address] [place] [address] 04/12/2025 7:30 AM EDT Anesthesia Event [facility] Operating Room 1 [place] [address] Lucio Szymanski MD [address] [place] [address] 04/12/2025 7:30 AM EDT - 04/12/2025 8:55 AM EDT Surgery [facility] Operating Room 1 [place] [address] [place] [address] [place] [address] [address] [place] [address] (LAPAROSCOPIC PERITONEAL DIALYSIS CATHETER INSERTION) Scheduled Procedures Name Priority Associated Diagnoses Date/Ti me LAPAROSCOPY, WITH PERITONEAL DIALYSIS CATHETER INSERTION Chronic kidney disease, stage V (HCC) 04/12/2025 7:30 AM EDT documented as of this encounter Visit Diagnoses Not on filedocumented in this encounter Care Teams Visitor Services Information Assistant Relationship Specialty Start Date End Date Félix Monroe, TRANSLITERATOR [address] [facility] [address] [place] [address] PCP - General Nurse Practitioner 08/25/22 documented as of this encounter
--- OUTSIDE RECORDS SUMMARY | 2025-04-11 11:04 | XMS_ITS | Encounter Summary ---
Author Organization [employer] ([place], [place], [place], [place]) Address [address] [address] Care Team Providers Care Graphic Design Teacher Name Role Phone Fer Félix Singh MICHAEL Primary Care Provider [phone] Encounter Details Date Type Department Care Team (Late st Contact Info) Description 10/14/2019 Transcribed Document [facility] Family Medicine [address] [place] [address] ProviderMaria Esther MD [address] [place], [place] [phone] Social History Tobacco Use Types Packs/Day Years Used Date Smoking Tobacco: Never Assessed Comments Unknown Sex and Gender Information Value Date Recorded Sex Assigned at Not on file Legal Sex Female 6:53 PM CDT Gender Identity Not on file Sexual Orientation Not on file documented as of this encounter Miscellaneous Notes * Cerner Conversion Note - Historical ProviderMD - 10/14/2019 2:00 AM CDT Dry Cleaning Machine Operator Details Entered On: 10/14/2019 2:42 EDT Performed On: 10/14/2019 2:00 EDT by Latia Gonzalez RN Order Details Transport Mode Order Detail : Wheelchair Isolation Precautions Order Detail : Standard Precautions Order Detail : 0 IV Order Detail : 1 Oxygen Order Detail : 0 Nurse Collect Order Detail : 0 Lift/Transfer : Independent Central Line Order Detail : No Room Service : Appropriate Arterial Line : No Latia Gonzalez RN - 10/14/2019 2:42 EDT documented in this encounter Plan of Treatment Upcoming Encounters Date Type Department Care Team (Late st Contact Info) Description 04/12/2025 7:30 AM EDT Hospital Encounter [facility] Operating Room 1 [place] [address] [place] [address] [place] [address] [place] [address] 04/12/2025 7:30 AM EDT Anesthesia Event [facility] Operating Room 1 [place] [address] Lucio Szymanski MD [address] [place] [id number] 04/12/2025 7:30 AM EDT - 04/12/2025 8:55 AM EDT Surgery [facility] Operating Room 1 [place] [address] Bill Graham MD [address] [place] [address] [address] [place] [address] (LAPAROSCOPIC PERITONEAL DIALYSIS CATHETER INSERTION) Scheduled Procedures Name Priority Associated Diagnoses Date/Ti me LAPAROSCOPY, WITH PERITONEAL DIALYSIS CATHETER INSERTION Chronic kidney disease, stage V (HCC) 04/12/2025 7:30 AM EDT documented as of this encounter Visit Diagnoses Not on filedocumented in this encounter Care Teams Graphic Design Teacher Relationship Specialty Start Date End Date Félix Monroe, AUTO REPAIR SHOP MANAGER [address] [facility] [address] [place] [address] PCP - General Nurse Practitioner 08/25/22 documented as of this encounter
--- OUTSIDE RECORDS SUMMARY | 2025-04-11 11:04 | XMS_ITS | Encounter Summary ---
Author Organization [employer] ([place], [place], [place], [place]) Address [address] [address] Care Team Providers Care Route Sales Manager Name Role Phone Félix Monroe APRN Primary Care Provider [phone] Encounter Details Date Type Department Care Team (Late st Contact Info) Description 10/15/2019 Transcribed Document [facility] Family Medicine [address] [place] [address] ProviderMaria Esther MD [address] [place], [place] [id number] Social History Tobacco Use Types Packs/Day Years Used Date Smoking Tobacco: Never Assessed Comments Unknown Sex and Gender Information Value Date Recorded Sex Assigned at Not on file Legal Sex Female 6:53 PM CDT Gender Identity Not on file Sexual Orientation Not on file documented as of this encounter Miscellaneous Notes * Cerner Conversion Note - Historical ProviderMD - 10/15/2019 5:00 AM CDT Chart Check - Review Order Profile Entered On: 10/15/2019 3:51 EDT Performed On: 10/15/2019 5:00 EDT by Latia Gonzalez RN Chart Check All Active Orders Reviewed : Yes Latia Gonzalez RN - 10/15/2019 3:51 EDT Electronically signed by Evaristo Loyola Conversion Commodities Requirements Analyst Cerner at 10/28/2022 7:09 PM CDT documented in this encounter Plan of Treatment Upcoming Encounters Date Type Department Care Team (Late st Contact Info) Description 04/12/2025 7:30 AM EDT Hospital Encounter [facility] Operating Room 1 [place] [address] Bill Graham MD [address] [facility] [address] [place] [address] 04/12/2025 7:30 AM EDT Anesthesia Event [facility] Operating Room 1 [place] [address] Lucio Szymanski MD [address] [place] [address] 04/12/2025 7:30 AM EDT - 04/12/2025 8:55 AM EDT Surgery [facility] Operating Room 1 [place] [address] Bill Graham MD [address] [facility] [address] [place] [address] (LAPAROSCOPIC PERITONEAL DIALYSIS CATHETER INSERTION) Scheduled Procedures Name Priority Associated Diagnoses Date/Ti me LAPAROSCOPY, WITH PERITONEAL DIALYSIS CATHETER INSERTION Chronic kidney disease, stage V (HCC) 04/12/2025 7:30 AM EDT documented as of this encounter Visit Diagnoses Not on filedocumented in this encounter Care Teams Route Sales Manager Relationship Specialty Start Date End Date Félix Monroe, MERCHANDISING CONSULTANT [address] [facility] [address] [place] [address] PCP - General Nurse Practitioner 08/25/22 documented as of this encounter
--- OUTSIDE RECORDS SUMMARY | 2025-04-11 11:04 | XMS_ITS | Encounter Summary ---
Author Organization [employer] ([place], [place], [place], [place]) Address [address] [place] [address] Care Team Providers Care Local Combination Truck Driver Name Role Phone Félix Monroe APRN Primary Care Provider [phone] Encounter Details Date Type Department Care Team (Late st Contact Info) Description 10/16/2019 Transcribed Document [facility] Family Medicine [address] [place] [address] ProviderMaria Esther MD [address] [place], [place] [id number] Social History Tobacco Use Types Packs/Day Years Used Date Smoking Tobacco: Never Assessed Comments Unknown Sex and Gender Information Value Date Recorded Sex Assigned at Not on file Legal Sex Female 6:53 PM CDT Gender Identity Not on file Sexual Orientation Not on file documented as of this encounter Miscellaneous Notes * Cerner Conversion Note - Historical ProviderMD - 10/16/2019 5:00 AM CDT Chart Check - Review Order Profile Entered On: 10/16/2019 3:03 EDT Performed On: 10/16/2019 5:00 EDT by Latia Gonzalez RN Chart Check All Active Orders Reviewed : Yes Latia Gonzalez RN - 10/16/2019 3:03 EDT documented in this encounter Plan of Treatment Upcoming Encounters Date Type Department Care Team (Late st Contact Info) Description 04/12/2025 7:30 AM EDT Hospital Encounter [facility] Operating Room 1 [place] [address] Bill Graham MD [address] [facility] [address] [place] [address] 04/12/2025 7:30 AM EDT Anesthesia Event [facility] Operating Room 1 [place] [address] Lucio Szymanski MD [address] [place] [address] 04/12/2025 7:30 AM EDT - 04/12/2025 8:55 AM EDT Surgery [facility] Operating Room [address] [place] [address] Bill Graham MD [address] [facility] [address] [place] [address] (LAPAROSCOPIC PERITONEAL DIALYSIS CATHETER INSERTION) Scheduled Procedures Name Priority Associated Diagnoses Date/Ti me LAPAROSCOPY, WITH PERITONEAL DIALYSIS CATHETER INSERTION Chronic kidney disease, stage V (HCC) 04/12/2025 7:30 AM EDT documented as of this encounter Visit Diagnoses Not on filedocumented in this encounter Care Teams Local Combination Truck Driver Relationship Specialty Start Date End Date Félix Monroe, ROADWAY DESIGNER [address] [facility] [address] [place] [address] PCP - General Nurse Practitioner 08/25/22 documented as of this encounter
--- OUTSIDE RECORDS SUMMARY | 2025-04-11 11:04 | XMS_ITS | Encounter Summary ---
Author Organization [employer] ([place], [place], [place], [place]) Address [address] [place] [address] Care Team Providers Care Director Of Health Care Marketing Name Role Phone Félix Monroe APRN Primary Care Provider [phone] Encounter Details Date Type Department Care Team (Late st Contact Info) Description 10/18/2019 Transcribed Document [facility] Family Medicine [place] [address] ProviderMaria Esther MD [address] [place] [address] Social History Tobacco Use Types Packs/Day Years Used Date Smoking Tobacco: Never Assessed Comments Unknown Sex and Gender Information Value Date Recorded Sex Assigned at Not on file Legal Sex Female 6:53 PM CDT Gender Identity Not on file Sexual Orientation Not on file documented as of this encounter Miscellaneous Notes * Cerner Conversion Note - Maria Esther Reyes MD - 10/18/2019 4:15 PM CDT Patient: CORRIE SMITH Age: 49 years Sex: Female : 1970 Associated Diagnoses: None Author: GILES BLAS MD-INT DATE OF SERVICE [ DOS ]: 10-18-2019 Basic Information SUBJECTIVE: Patient is seen and evaluated still with chest tube Coumadin has been started no bleeding Review of Systems Constitutional: No fever, No chills. Eye: No recent visual problem, No icterus, No blurring, No visual disturbances. Ear/Nose/Mouth/Throat: No decreased hearing, No sore throat. Respiratory: No shortness of breath, No cough. Cardiovascular: Chest pain, No palpitations, No syncope. Gastrointestinal: No [...] ointment: 1 Application, Nostrils Both, BID Coumadin: 0.5 mg, Oral, Daily Dulcolax Laxative: 10 mg, Rectal, Daily, PRN: Constipation DuoNeb 0.5 mg-2.5 mg/3 mL inhalation solution: 3 mL, Nebulized Inhalation, RT_Q4H, PRN: Shortness of Breath Lactated Ringers Injection intravenous solution 1,000 mL: 100 mL/Hr, IntraVENous, Stop: 10/19/19 10:45:00 EDT Mucinex: 1,200 mg, Oral, BID NIFEdipine: 60 mg, Oral, Daily Normal Saline [...] PRN: Hypertension hydrALAZINE: 25 mg, Oral, TID lactulose: 15 Gram, Oral, Daily, PRN: Constipation magnesium sulfate + Sodium Chloride 0.9% intravenous [...] At Bedtime, 90 Tab, 0 Refill(s), Medications (32) Active Scheduled: (14) #NaCl 0.9% *FLUSH* inj 10 mL 10 mL, IV Push, Q12H #NaCl 0.9% *FLUSH* inj 10 mL 10 mL, IV Push, Q8H aspirin EC 81 mg tab 81 mg 1 Tab, Oral, Daily epoetin mayra epbx 40,000 units/mL inj 40,000 Units 1 mL, SubCutaneous, Weekly guaiFENesin 600 mg ER tab 1,200 mg 2 Tab, Oral, BID hydrALAZINE 25 mg tab 25 mg 1 [...] Tab, Oral, BID warfarin 1 mg tab 0.5 mg 0.5 Tab, Oral, Daily Continuous: (1) lactated ringers 1,000 mL 1,000 mL, IntraVENous, 100 mL/Hr PRN: (17) #NaCl 0.9% *FLUSH* inj 10 mL 10 [...] mg supp 10 mg 1 Supp, Rectal, Daily cloNIDine 0.1 mg tab 0.1 mg 1 Tab, Oral, Q4H hydrALAZINE 20 mg/1 mL inj 10 mg 0.5 mL, IV Push, Q6H lactulose 20 g/30 mL oral liq 15 Gram 22.5 mL, Oral, Daily LORazepam 2 mg/mL inj 1 mg 0.5 [...] initial episode of care / SNOMED CT 4102901661 / Confirmed At risk for sleep apnea / IMO 62274069 / Confirmed CHF, acute on chronic / SNOMED CT 06382127 / Confirmed Class 3 Systolic GERD - Gastro-esophageal reflux disease / SNOMED CT 1120688570 / Confirmed H/O: TIA / SNOMED CT 447492811 / Confirmed History of laparoscopic adjustable gastric banding / SNOMED CT 3266112389 / Confirmed History of obstructive sleep apnea / IMO 34926986 / Confirmed HTN - Hypertension / SNOMED CT 2406225715 / Confirmed Mitral regurgitation / SNOMED CT 92259423 / Confirmed Prolonged QT interval / SNOMED CT 550828659 / Confirmed 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 607908913 / Confirmed Pulmonary edema / SNOMED CT 48808341 / Confirmed Restless legs syndrome / SNOMED CT 90619387 / Confirmed RF - Renal failure, Stage 4 / SNOMED CT 7909326234 / Confirmed Sleep apnea-before weight loss surgery / SNOMED CT 895648484 / Confirmed, Active Problems (16) At risk [...] apnea-before weight loss surgery OBJECTIVE: Physical Examination VS/Measurements Vitals Signs (last 24 hrs) Last Charted Minimum Maximum Temp 98 (OCT 17 22:22) 97.8 (OCT 17 14:30) 98.1 (OCT 17 10:23) Apical HR 88 (OCT 17 14:56) 88 (OCT 17 14:56) 89 (OCT 17 08:03) Mon HR 89 (OCT 17 22:22) 88 (OCT 17 00:30) 90 (OCT 17 10:23) Resp Rate 18 (OCT 17 22:22) 18 (OCT 17 06:00) 18 (OCT 17 06:00) SBP 132 (OCT 17 22:22) 117 (OCT 17 10:23) H 144 (OCT 17 00:30) DBP H 93 (OCT 17 22:22) 80 (OCT 17 14:30) H 99 (OCT 17 00:30) MAP 106 (OCT 17 22:22) 89 (OCT 17 14:30) 113 (OCT 17 00:30) SpO2 97 (OCT 17 22:22) L 93 (OCT 17 14:30) 100 (OCT 17 06:19) General: Alert and oriented, No acute distress. [...] tenderness, No swelling, No deformity. Integumentary: Warm, [place], Moist, No rash. Neurologic: Alert, Oriented, Normal sensory, Normal motor function, No focal deficits, Cranial Nerves II-XII are grossly intact, Normal deep tendon reflexes. Psychiatric: Cooperative, Appropriate mood & affect, Normal judgment. Review / Management Results review: Labs (Last four charted values) WBC H 16.9 (OCT 17) H 12.8 (OCT 16) H 16.0 (OCT 15) H 16.6 (OCT 15) HB L 8.2 (OCT 17) L 8.0 (OCT 16) L 7.8 (OCT 16) L 8.3 (OCT 15) HCT L 25.0 (OCT 17) L 25.1 (OCT 16) L 23.1 (OCT 16) L 24.3 (OCT 15) Plt L 155 (OCT 08) L 116 (OCT 07) L 123 (OCT 06) L 121 (OCT 15) Na L 133 (OCT 08) 138 (OCT 07) 140 (OCT 15) 140 (OCT 15) K 4.1 (APR 08) 4.4 (OCT 16) 3.9 (OCT 16) 3.6 (OCT 15) Cl 102 (OCT 17) 107 (OCT 16) 112 (OCT 15) 108 (OCT 15) CO2 L 19 (OCT 17) 21 (OCT 16) L 20 (OCT 15) 23 (OCT 15) BUN H 36 (OCT 08) H 31 (OCT 16) H 27 (OCT 15) H 30 (OCT 15) Cr H 3.90 (OCT 17) H 3.40 (OCT 16) H 3.61 (OCT 15) H 3.80 (OCT 15) Glu R H 122 (OCT 17) H 119 (OCT 16) 106 (OCT 15) 96 (OCT 15) Ca 8.8 (OCT 17) L 7.9 (OCT 16) 8.4 (OCT 15) 8.6 (OCT 15) Lactic 1.2 (OCT 10) PT H 18.3 (OCT 17) 11.6 (OCT 16) 12.0 (OCT 15) 11.4 (OCT 14) INR H 1.7 (OCT 17) 1.1 (OCT 16) 1.1 (OCT 15) 1.1 (OCT 14) PTT 25.7 (OCT 15) 29.1 (OCT 14) [...] (OCT 11) H 0.091 (OCT 10) , OCT 08 03:37 L 133 102 H 36 / H 122 4.1 L 19 H 3.90 \ OCT 08 03:37 \ L 8.2 / H 16.9 L 155 / L 25.0 \ , Radiology Results (Last 48 hours) [id number] -- 10/11/2019 15:38 CR Chest 1 Vw Portable (10/17/2019 04:00) [...] 10/17/2019. The NG tube and right IJ [place]-Ganzcatheter have been removed. Pleural and mediastinal drains areunchanged. The heart is mildly enlarged. There is left greater thanright basilar opacity with small pleural effusions. Favor atelectasis.There is no pneumothorax.IMPRESSION: Bibasilar opacities and bilateral pleural effusions, favoratelectasis.Images reviewed, interpreted, and dictated by Corie Moncada MD . Impression and Plan S/P Mitral Valve [...] Sequential compression device Code status: Full code PLAN Placed on Procrit injections for anemia Monitor INR Still has chest tube in Started on Coumadin for Mechanical valve OFF IV Insulin drip Monitor Anemia Monitor Renal failure TIME SPENT: 35 minutes Electronically signed by Evaristo Loyola Conversion Flight Operations Dispatch Clerk Cerner at 10/28/2022 7:25 PM CDT documented in this encounter Plan of Treatment Upcoming Encounters Date Type Department Care Team (Late st Contact Info) Description 04/12/2025 7:30 AM EDT Hospital Encounter [facility] Operating Room 1 [place] [address] Bill Graham MD [address] [place] [address] [address] [place] [address] 04/12/2025 7:30 AM EDT Anesthesia Event [facility] Operating Room 1 [place] [address] Lucio Szymanski MD [address] [place] [address] 04/12/2025 7:30 AM EDT - 04/12/2025 8:55 AM EDT Surgery [facility] Operating Room 1 [place] [address] Bill Graham MD [address] [place] [address] [address] (LAPAROSCOPIC PERITONEAL DIALYSIS CATHETER INSERTION) Scheduled Procedures Name Priority Associated Diagnoses Date/Ti me LAPAROSCOPY, WITH PERITONEAL DIALYSIS CATHETER INSERTION Chronic kidney disease, stage V (HCC) 04/12/2025 7:30 AM EDT documented as of this encounter Visit Diagnoses Not on filedocumented in this encounter Care Teams Director Of Health Care Marketing Relationship Specialty Start Date End Date Félix Monroe, JOURNEYMAN PRESSMAN [address] [facility] [address] [place] [address] PCP - General Nurse Practitioner 08/25/22 documented as of this encounter
--- OUTSIDE RECORDS SUMMARY | 2025-04-11 11:04 | XMS_ITS | Encounter Summary ---
Author Organization [employer] ([place], [place], [place], [place]) Address [address] [address] Care Team Providers Care Steam Shovel Operator Name Role Phone Félix Monroe APRN Primary Care Provider [phone] Encounter Details Date Type Department Care Team (Late st Contact Info) Description 10/19/2019 Transcribed Document [facility] Family Medicine [address] [place] [address] ProviderMaria Esther MD [address] [place] [address] Social History Tobacco Use Types Packs/Day Years Used Date Smoking Tobacco: Never Assessed Comments Unknown Sex and Gender Information Value Date Recorded Sex Assigned at Not on file Legal Sex Female 6:53 PM CDT Gender Identity Not on file Sexual Orientation Not on file documented as of this encounter Miscellaneous Notes * Cerner Conversion Note - Maria Esther Reyes MD - 10/19/2019 10:24 PM CDT Rapid Response Team Documentation Entered On: 10/19/2019 22:25 EDT Performed On: 10/19/2019 22:24 EDT by OTTONIEL ELI RN Rapid Response Event Time Rapid Response Team Called : 10/19/2019 22:00 EDT Rapid Response Team Arrival Time : 10/19/2019 22:05 EDT Rapid Response Team Event End Time : 10/19/2019 22:24 EDT Rapid Response Event Intiated By : Hospital Staff Rapid Response Team Initiation Reason : Peripheral IV start Rapid Response Event Location Type : Other: 420 Rapid Response Team Initiation Reason Details : needs iv Rapid Response Admission Diagnosis : Cannabis use, unspecified, uncomplicated Chronic kidney disease, stage 4 (severe) Chronic obstructive pulmonary disease, unspecified Chronic systolic (congestive) heart failure Essential (primary) hypertension Gastro-esophageal reflux disease without esophagitis Nicotine dependence, unspecified, in remission Non-ST elevation (NSTEMI) myocardial infarction Obesity, unspecified Restless legs syndrome Sleep apnea, unspecified Transient cerebral ischemic attack, unspecified Rapid Response Medical Background : At risk for sleep apnea (Medical) CHF, acute on chronic (Medical) COPD (chronic obstructive pulmonary disease) (Patient Stated) GERD - Gastro-esophageal reflux disease (Medical) H/O: TIA (Medical) HTN - Hypertension (Medical) History of laparoscopic adjustable gastric banding (Medical) History of obstructive sleep apnea (Medical) Mitral regurgitation (Medical) NSTEMI, initial episode of care (Medical) Prolonged QT interval (Medical) Prosthetic mitral valve regurgitation (Medical) Pulmonary edema (Medical) RF - Renal failure, Stage 4 (Medical) Restless legs syndrome (Medical) Sleep apnea-before weight loss surgery (Medical) Rapid Response Allergies : Substance Category Reactions Severity codeine Drug Welts codeine Drug Nausea codeine Drug Hives Rapid Response Recent Vital Signs : 10/19/2019 22:24 Systolic Blood Pressure 119 10/19/2019 22:24 Diastolic Blood Pressure 81 10/19/2019 22:24 Heart Rate Monitored 82 10/19/2019 21:13 Heart Rate, Apical 69 10/19/2019 22:24 Respiratory Rate 16 10/19/2019 22:24 Temperature, Fahrenheit 98.1 10/19/2019 22:24 Oxygen Saturation 92 Rapid Response Recent Lab Results : 10/19/2019 04:05 Sodium Level LOW 132 (136-146) 10/19/2019 04:05 Potassium Level 3.7 (3.5-5.1) 10/16/2019 14:24 Calcium Ionized 1.24 (1.12-1.32) 10/19/2019 04:05 Calcium Level 8.4 (8.4-10.1) 10/17/2019 03:32 Magnesium Level HI 3.7 (1.5-2.4) 10/16/2019 13:17 Glucose POC HI 194 (70-105) 10/18/2019 15:10 Glucose POC2 HI 126 (70-110) 10/19/2019 04:05 Chloride Level 102 (102-112) 10/19/2019 04:05 Carbon Dioxide Level 22 (21-32) 10/19/2019 04:05 Blood Urea Nitrogen HI 39 (7-22) 10/19/2019 04:05 Creatinine Level HI 3.70 (0.55-1.02) 10/19/2019 04:05 PT HI 49.3 (9.6-12.0) 10/19/2019 04:05 INR HI 4.7 (0.9-1.1) 10/16/2019 16:25 PTT 25.7 (24.0-34.0) 10/19/2019 04:05 Hgb LOW 8.3 (11.2-15.7) 10/19/2019 04:05 Hct LOW 25.2 (34.1-44.9) 10/19/2019 04:05 RBC LOW 2.67 (3.93-5.22) 10/19/2019 04:05 WBC HI 15.3 (4.5-10.5) 10/19/2019 04:05 Platelet Count LOW 141 (163-369) 10/11/2019 16:00 Lactic Acid Level 1.2 (0.4-2.0) 10/12/2019 03:44 Troponin I Ultra HI 0.054 (0.015-0.045) 10/11/2019 17:32 Lipase Level 147 (73-393) 10/16/2019 17:18 pH Art 7.40 (7.35-7.45) 10/16/2019 17:18 pCO2 Art 40.5 (35.0-45.0) 10/16/2019 17:18 pO2 Art HI 137.0 (80.0-100.0) 10/16/2019 17:18 HCO3 Art 24.8 (20.0-26.0) 10/16/2019 17:18 BE Art .0 (-2.0-2.0) 10/16/2019 17:18 sO2 Art 99.8 (95.0-100.0) Weight/BMI : Clinical Weight/BMI CLINICALWEIGHT: 57.2 kg (10/11/19 15:34:00) Body Mass Index: 20.4 kg/m2 (10/11/19 15:34:00) Rapid Response Team Event Interventions : Other: 22 guage iv left hand times 2 sticks Rapid Response Team Recommendation/Response : 22 g left hand times 2 sticks Patient Condition at End of Event : No S/S of Acute Distress Patient Disposition Post Event : No change in location/level of care Rapid Response Steam Shovel Operator #1 : OTTONIEL ELI, RN OTTONIEL ELI, RN - 10/19/2019 22:24 EDT Electronically signed by Nir [facility] Conversion Rod Welder Cerner at 10/28/2022 6:58 PM CDT documented in this encounter Plan of Treatment Upcoming Encounters Date Type Department Care Team (Late st Contact Info) Description 04/12/2025 7:30 AM EDT Hospital Encounter [facility] Operating Room 1 [place] [address] [place] [address] [place] [address] [place] [address] 04/12/2025 7:30 AM EDT Anesthesia Event [facility] Operating Room 1 [place] [address] Lucio Szymanski MD [address] [place] [address] 04/12/2025 7:30 AM EDT - 04/12/2025 8:[address] [facility] Operating Room 1 [place] [address] Bill Graham MD [address] [place] [address] (LAPAROSCOPIC PERITONEAL DIALYSIS CATHETER INSERTION) Scheduled Procedures Name Priority Associated Diagnoses Date/Ti me LAPAROSCOPY, WITH PERITONEAL DIALYSIS CATHETER INSERTION Chronic kidney disease, stage V (HCC) 04/12/2025 7:30 AM EDT documented as of this encounter Visit Diagnoses Not on filedocumented in this encounter Care Teams Steam Shovel Operator Relationship Specialty Start Date End Date Félix Monroe, NUTRITIONAL SERVICES COOK [address] [facility] [address] [place] [address] PCP - General Nurse Practitioner 08/25/22 documented as of this encounter
--- OUTSIDE RECORDS SUMMARY | 2025-04-11 11:04 | XMS_ITS | Encounter Summary ---
Author Organization [employer] ([place], [place], [place], [place]) Address [address] [address] Care Team Providers Care Logistics Solution Manager Name Role Phone Félix Monroe APRN Primary Care Provider [phone] Encounter Details Date Type Department Care Team (Late st Contact Info) Description 10/14/2019 Transcribed Document [facility] Radiology 1 [place] [address] Emanuel Pratt MD [address] [place] [address] Social History Tobacco Use Types Packs/Day Years Used Date Smoking Tobacco: Never Assessed Comments Unknown Sex and Gender Information Value Date Recorded Sex Assigned at Not on file Legal Sex Female 6:53 PM CDT Gender Identity Not on file Sexual Orientation Not on file documented as of this encounter Miscellaneous Notes * Cerner Conversion Note - Emanuel Pratt MD - 10/14/2019 8:16 AM EDT Patient: CORRIE SMITH Age: 49 years Sex: Female : 1970 Associated Diagnoses: None Author: EMANUEL PRATT MD-CAR Basic Information PCP: WINSTON GREEN MD-INT Malt House Loader: None Subjective Stable this morning without complaints. CTS note reviewed. Plans for surgery Wednesday. Patient seen and examined at the bedside. Awake alert oriented ??3 not dyspnic not in pain. Health Status Current medications: (Selected) Inpatient Medications [...] TransDermal, Daily rOPINIRole: 1 mg, Oral, At Bedtime, Home [...] Intake and Output 24 hour intake: Total 730 ml 24 hour output: Total 400 ml VS/Measurements Vitals Signs (last 24 hrs) Last Charted Minimum Maximum Temp 97.7 (OCT 12 14:12) 97.7 (OCT 12 14:12) 97.9 (OCT 12 08:00) Apical HR 94 (OCT 12 08:41) 94 (OCT 12 08:41) 94 (OCT 12 08:41) Mon HR 88 (OCT 13 02:30) 88 (OCT 13 02:30) 94 (OCT 12 13:10) Resp Rate H 38 (OCT 12 09:00) 17 (OCT 12 08:00) H 38 (OCT 12 09:00) SBP 135 (OCT 13 02:30) 127 (OCT 12 10:19) H 173 (OCT 12 22:45) DBP H 98 (OCT 13 02:30) 77 (OCT 12 10:19) H 114 (OCT 12 18:12) MAP 111 (OCT 13 02:30) 105 (OCT 12 13:10) 129 (OCT 12 18:12) SpO2 100 (OCT 12 21:29) 98 (OCT 12 09:00) 100 (OCT 12 08:00) General: Alert and oriented, No acute distress. [...] of motion, Normal strength. Integumentary: Warm, Dry, [place]. Neurologic: Alert, Oriented. Psychiatric: Cooperative, Appropriate mood & affect. Results Review OCT 13 03:16 139 110 H 29 / 94 L 3.4 L 19 H 3.80 \ Radiology Results (Last 48 hours) [id number] -- 10/11/2019 15:38 CT Chest WO (10/13/2019 09:11) Result: CT [...] of normalin size. Mild cardiomegaly. Postsurgical changes. ECHO 10/12/2019 Impression: Normal sized left ventricle. [...] with tethering of posterior leaflet RIA 10/12/2019 Plans for Surgical redo Wednesday Marked Anemia Hgb 5 at OSH improved to 9 overnight s/p 2 units PRBC Prolonged QTc on admission 552 CKD Cr 2.10 HTN HLD Elevated LFT AST 124 Hx of TIA Smoker PLAN; 10/14/2019 Vitals and labs reviewed. Pt stable. Awaiting surgery wednesday. Will follow prn. 10/13/2019 Plan for redo MVR Wednesday per [...] Description 04/12/2025 7:30 AM EDT Hospital Encounter [facility] Operating Room 1 [place] [phone] [place] [address] [place] [address] [address] [place] [address] 04/12/2025 7:30 AM EDT Anesthesia Event [facility] Operating Room 1 [place] [address] Lucio Szymanski MD [address] [place] [address] 04/12/2025 7:30 AM EDT - 04/12/2025 8:55 AM EDT Surgery [facility] Operating Room 1 [place] [phone] Bill Graham MD [address] [facility] [address] [place] [address] (LAPAROSCOPIC PERITONEAL DIALYSIS CATHETER INSERTION) Scheduled Procedures Name Priority Associated Diagnoses Date/Ti me LAPAROSCOPY, WITH PERITONEAL DIALYSIS CATHETER INSERTION Chronic kidney disease, stage V (HCC) 04/12/2025 7:30 AM EDT documented as of this encounter Visit Diagnoses Not on filedocumented in this encounter Care Teams Logistics Solution Manager Relationship Specialty Start Date End Date Félix Monroe, FURNITURE FABRICATOR [address] [facility] [address] [place] [address] PCP - General Nurse Practitioner 08/25/22 documented as of this encounter
--- OUTSIDE RECORDS SUMMARY | 2025-04-11 11:04 | XMS_ITS | Encounter Summary ---
Author Organization [employer] ([place], [place], [place], [place]) Address [address] [address] Care Team Providers Care Policy Intern Name Role Phone Fer Félix Francisco RODRIGUEZ Primary Care Provider [phone] Encounter Details Date Type Department Care Team (Late st Contact Info) Description 10/19/2019 Transcribed Document [facility] [place] [address] ProviderMaria Esther MD [address] [place], [place] [address] Social History Tobacco Use Types Packs/Day Years Used Date Smoking Tobacco: Never Assessed Comments Unknown Sex and Gender Information Value Date Recorded Sex Assigned at Not on file Legal Sex Female 6:53 PM CDT Gender Identity Not on file Sexual Orientation Not on file documented as of this encounter Miscellaneous Notes * Cerner Conversion Note - Maria Esther Reyes MD - 10/19/2019 9:05 AM CDT PLEASE MODIFY BEFORE SIGNING CLINICAL DOCUMENTATION CLARIFICATION FORM: Dear : Lupe Martínez Date / Time: 10/19/2019 Please exercise your independent, professional judgment in responding to the clarification form. Clinical indicators are provided on the bottom of this form for your review Please check appropriate box(es): [ x ] Encounter for vent weaning only, no post op respiratory failure [ ] Acute respiratory insufficiency due to an existing co-morbid condition of CHF [ ] Acute respiratory insufficiency related to surgery [ ] Acute respiratory failure due to an existing co-morbid condition of CHF [ ] Acute respiratory failure related to surgery [ ] Other diagnosis [ ] Unable to determine For continuity of documentation, please document condition throughout progress notes and discharge summary. Thank You. To be completed by CDI/Coding staff for physician review: Present Clinical Indicators - Signs / Symptoms / Labs Results and Location in Medical Record [X ] Time of Ventillator 10/15- 3.5 hours on vent 10/15 1414- vitals (OUT of surgery on vent) 10/15 1744 Vitals- EXTUBATED to 4LNC [X ] Oxygen percent and modality 10/15- 1414 vitals - on vent 10/15 174 vitals- 4LNC 10/16 0900 vitals - 3LNC 10/16 1700 vitals - Room air [X ] Respiratory rate 10/15 1744 RR= 15/min 10/16 899 RR = 22/min 10/16 1699 RR= 17/min [ X ] O2 sats 10/15 1744 vitals O2 sats 100% (4LNC) 10/16 09 Vitals O2 sats 99% (3LNC) 10/16 170 vitals O2 sats 99% (room air) [X] MD documentation of post op resp failure 10/17 - Dr. Martínez note- post op respiratory failure Present Risk Factors Results and Location in Medical Record [X ] Recent surgery 10/15- op note- s/p Mitral valve replacement [ X ] History of CHF 10/10 H&P- history of CHF Present Treatments Results and Location in Medical Record [X ] Oxygen / Monitoring oxygenation status 10/15 MD orders- oxygen and o2 sat monitoring post op [ X ] No Extended mechanical ventilation 10/15 1414 vitals (out of surgery on vent) 10/15 1744 vitals - Extubated to 4LNC CDS/District Court Judge Signature: Klaudia Quintana RN Phone #: [phone] Date/Time: 10/19/2019 This is a permanent part of the Medical Record Q54 [id number] [facility] Updated: documented in this encounter Plan of Treatment Upcoming Encounters Date Type Department Care Team (Late st Contact Info) Description 04/12/2025 7:30 AM EDT Hospital Encounter [facility] Operating Room 1 [place] [address] Bill Graahm MD [address] [facility] [address] [place] [address] 04/12/2025 7:30 AM EDT Anesthesia Event [facility] Operating Room 1 [place] [address] Lucio Szymanski MD [address] [place] [address] 04/12/2025 7:30 AM EDT - 04/12/2025 8:[address] [facility] Operating Room 1 [place] [address] Bill Graham MD [address] [facility] [address] [place] [address] (LAPAROSCOPIC PERITONEAL DIALYSIS CATHETER INSERTION) Scheduled Procedures Name Priority Associated Diagnoses Date/Ti me LAPAROSCOPY, WITH PERITONEAL DIALYSIS CATHETER INSERTION Chronic kidney disease, stage V (HCC) 04/12/2025 7:30 AM EDT documented as of this encounter Visit Diagnoses Not on filedocumented in this encounter Care Teams Policy Intern Relationship Specialty Start Date End Date Félix Monroe, LINE HAUL OWNER OPERATOR [address] [facility] [address] [place] [address] PCP - General Nurse Practitioner 08/25/22 documented as of this encounter
--- OUTSIDE RECORDS SUMMARY | 2025-04-11 11:04 | XMS_ITS | Encounter Summary ---
Author Organization Healthcare Address [address] [id number] Care Team Providers Care Carpenter General Name Role Phone Az David MD Primary Care Provider + [phone] Encounter Details Date Type Department Care Team (Latest Contact Info) Description 03/20/2025 Anticoagulation - Warfarin Visit [facility] [place] [address] [facility] [address] [place] [address] Sarai Irizarry, PharmD [address] [place] [address] H/O mitral valve replacement (Primary Dx); halfway (current) use of anticoagulants; Anticoagulation management encounter [...] any time in the past 12 m [facility], were you homeless or living in a custodial (including now)? No 02/26/2025 CAGE ASSESSMENT Answer [...] drink first t mohamud in the morning (EYE-HELPER/DRIVER) to steady your nerves or to get [...] encounter Miscellaneous Notes * Progress Notes - Sarai Irizarry, PharmD - 03/20/2025 11:22 AM EDT [facility] Note History of Present Illness Anticoagulation Summary As of 03/20/2025 INR goal: 2.5-3.5 TTR: 100.0% (3 d) INR used for dosin.2 (03/19/2025) Warfarin maintenance plan: 4 mg (4 mg x 1) every day Weekly warfarin total: 28 mg No change documented: Sarai Irizarry, PharmD Plan last modified: Sarai Irizarry, PharmD (03/08/2025) Next INR check: 03/27/2025 Target end date: Indefinite Indications H/O mitral valve replacement [Z95.2] halfway (current) use of anticoagulants [Z79.01] Anticoagulation Episode Summary INR check location: Outside Lab Preferred lab: EXTERNAL LAB Send INR reminders to: [facility] Comments: -- Anticoagulation Care Providers Provider Role Specialty Phone number Jocy Kennedy, DRY JANITOR, DNP Referring Cardiology [phone] Additional History: 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 2009. ?? 2010 [employer] Rational for warfarin > DOAC: presence of [...] signs/symptoms: No Thromboembolic event: No Missed doses: No Extra doses: No Medication changes: No Dietary changes: No Alcohol changes: No Daily activity changes: No Health changes: No ED visit: No Hospital admission: No Upcoming dental procedure: No Upcoming invasive procedure: No Laboratory test error suspected: No Other concerns: No Additional comments: The following portions of the chart were reviewed this encounter and updated as appropriate: Objective INR: Lab Results Component Value Date INR 3.2 03/19/2025 INR 2.20 (A) 03/08/2025 INR 2.20 (A) 03/08/2025 PROTIME 29.3 08/24/2024 [...] oz). Assessment and Plan Current warfarin dose: 4 mg daily Therapeutic INR for goal of 2.5-3.5. New warfarin dose: no change Follow Up Check INR at [facility] in 1 week . Patient Education Notify clinic of any medication changes including missed or extra doses of warfarin prior to next planned INR check so that warfarin dose and/or follow up can be adjusted accordingly. Contact the Anticoagulation Clinic at [phone] with any questions or concerns regarding yourwarfarin. Patient verbalized understanding of above care plan: YES Sarai Irizarry PharmD [facility] Cosigned by Markos Anglin PharmD at 03/21/2025 7:58 AM EDT Associated attestation - Markos Anglin PharmD - 03/21/2025 7:58 AM EDT Attending PharmD Attestation: I saw and evaluated the patient with the pharmacy graduate intern. I discussed the case with the resident and agree with the findings and plan as documented. I personally participated in the management of the patient. Markos Anglin PharmD, BCACP, CACP [facility] documented in this encounter Plan of Treatment Upcoming Encounters Date Type Department Care Team (Late st Contact Info) Description 05/24/2025 1:40 PM EST Office Visit [facility] [place] [address] [place] [phone] Lenore Cosme MD [address] [place] [address] 08/02/2025 1:40 PM EST Office Visit [facility] [address] [place] [phone] Lenore Cosme MD [address] [place] [address] documented as of this encounter Procedures Procedure Name Priority Date/Time Associated Diagnosis Comments EXTERNAL PROTHROMBIN TIME (PT)/INR Routine 03/19/2025 documented in this encounter Results * External Prothrombin Time (PT)/INR (03/19/2025) External INR - Internormal Ratio 3.2 External Prothrombin Time (PT) Blood Venous blood specimen / Unknown 03/19/2025 [facility] Provider POINT OF CARE TEST ENTER/PADDY T ORDERABLES Final Result documented in this encounter Visit Diagnoses Diagnosis H/O mitral valve replacement- Primary halfway (current) use of anticoagulants Long-term (current) use [...] documented as of this encounter Care Teams Carpenter General Relationship Specialty Start Date End Date Az David MD [address] [place] [address] PCP - General 03/22/23 documented as of this encounter
--- OUTSIDE RECORDS SUMMARY | 2025-04-11 11:04 | XMS_ITS | Encounter Summary ---
Author Organization [employer] ([place], [place], [place], [place]) Address [address] [place] [address] Care Team Providers Care Television Reporter Name Role Phone Félix Monroe MICHAEL Primary Care Provider [phone] Encounter Details Date Type Department Care Team (Late st Contact Info) Description 10/16/2019 Transcribed Document [facility] Family Medicine [address] [place] [address] ProviderMaria Esther MD [address] [place], [place] [address] Social History Tobacco Use Types Packs/Day Years Used Date Smoking Tobacco: Never Assessed Comments Unknown Sex and Gender Information Value Date Recorded Sex Assigned at Not on file Legal Sex Female 6:53 PM CDT Gender Identity Not on file Sexual Orientation Not on file documented as of this encounter Miscellaneous Notes * Cerner Conversion Note - Maria Esther ProviderMD - 10/16/2019 7:43 PM CDT Pain Assessment Entered On: 10/16/2019 20:44 EDT Performed On: 10/16/2019 20:42 EDT by Balwinder Leach RN Intervention Information: morphine Performed by Balwinder Leach RN on 10/16/2019 20:12:00 EDT morphine,2mg IV Push,Cordis,Pain (Severe 7-10) Pain Assessment Pain Assessment : [...] the text rendition version of the form. Electronically signed by Evaristo Loyola Conversion Service Learning Coordinator Cerner at 10/28/2022 7:05 PM CDT documented in this encounter Plan of Treatment Upcoming Encounters Date Type Department Care Team (Late st Contact Info) Description 04/12/2025 7:30 AM EDT Hospital Encounter [facility] Operating Room [address] [place] [phone] [place] [address] [place] [address] 04/12/2025 7:30 AM EDT Anesthesia Event [facility] Operating Room [address] [place] [address] Lucio Szymanski MD [address] [place] [address] 04/12/2025 7:30 AM EDT - 04/12/2025 8:55 AM EDT Surgery [facility] Operating Room [address] [place] [address] Bill Graham MD [address] [place] [address] (LAPAROSCOPIC PERITONEAL DIALYSIS CATHETER INSERTION) Scheduled Procedures Name Priority Associated Diagnoses Date/Ti me LAPAROSCOPY, WITH PERITONEAL DIALYSIS CATHETER INSERTION Chronic kidney disease, stage V (HCC) 04/12/2025 7:30 AM EDT documented as of this encounter Visit Diagnoses Not on filedocumented in this encounter Care Teams Television Reporter Relationship Specialty Start Date End Date Félix Monroe, ELECTRICAL APPLIANCE REPAIRER [address] [facility] [address] [place], [place] [phone] PCP - General Nurse Practitioner 08/25/22 documented as of this encounter
--- OUTSIDE RECORDS SUMMARY | 2025-04-11 11:04 | XMS_ITS | Encounter Summary ---
Author Organization [employer] ([place], [place], [place], [place]) Address [address] [place] [address] Care Team Providers Care Sheet Metal Assembler And Riveter Name Role Phone Félix Monroe APRN Primary Care Provider [phone] Encounter Details Date Type Department Care Team (Late st Contact Info) Description 10/16/2019 Transcribed Document [facility] Family Medicine [address] [place] [address] ProviderMaria Esther MD [address] [place], [place] [address] Social History Tobacco Use Types Packs/Day Years Used Date Smoking Tobacco: Never Assessed Comments Unknown Sex and Gender Information Value Date Recorded Sex Assigned at Not on file Legal Sex Female 6:53 PM CDT Gender Identity Not on file Sexual Orientation Not on file documented as of this encounter Miscellaneous Notes * Cerner Conversion Note - Maria Esther Reyes MD - 10/16/2019 5:45 PM CDT Patient: CORRIE SMITH Age: 49 years Sex: Female : 1970 Associated Diagnoses: None Author: GILES BLAS MD-INT DATE OF SERVICE: 10-16-2019 Basic Information Patient is seen and evaluated in ICU Intubated on Mechanical Ventilator Review of Systems UNABLE TO OBTAIN SECONDARY TO INTUBATION AND CLINICAL CONDITION Health Status Allergies: Allergic Reactions (Selected) Severity Not Documented Codeine- Welts, nausea and hives., Allergies (1) Active Reaction codeine Welts Current medications: (Selected) Inpatient Medications Ordered Ativan: 1 mg, IV Push, Q4H, PRN: Agitation Bactroban 2% nasal ointment: 1 Application, Nostrils Both, BID Bactroban 2% nasal ointment: 1 Application, Nostrils Both, BID Benadryl: 12.5 mg, Oral, At Bedtime, PRN: Sleep Core mg, Oral, BID Dextrose 5% with 0.225% NaCl intravenous solution 1,000 mL: 30 mL/Hr, IntraVENous Dextrose: 25 Gram, IV Push, 1-Time, PRN: Hypoglycemia DuoNeb 0.5 mg-2.5 mg/3 mL inhalation solution: 3 mL, Nebulized Inhalation, Q6H, PRN: Shortness of Breath DuoNeb 0.5 mg-2.5 mg/3 mL inhalation solution: 3 mL, Nebulized Inhalation, RT_Q4H, PRN: Shortness of Breath EPINEPHrine injection 5 mg + NaCl 0.9% for drip 250 mL: TITRATE, IntraVENous Insulin regular injection 100 Units + Sodium Chloride 0.9% intravenous solution 100 mL: Corrective Insulin Drip, IntraVENous Lactated Ringers Injection intravenous solution 1,000 mL: 20 mL/Hr, IntraVENous NIFEdipine: 60 mg, Oral, Daily Nitrostat: 0.4 mg, SubLINgual, Q5Min, PRN: Chest Pain Normal Saline Flush: 10 mL, IV Push, [...] Push, See Comment, PRN: Other (See Comment) Pepcid: 20 mg, IV Push, Q12H Percocet 5/325 oral tablet: 2 Tab, Oral, Q4H, PRN: Pain (Moderate 4-6) Phenergan: 6.25 mg, IntraVENous, Q6H, PRN: Nausea Protonix: 40 mg, Oral, Daily Senna S: 1 Tab, Oral, BID Senokot: 17.2 mg, Oral, BID Tenormin: 12.5 mg, Oral, QAM Tylenol: 650 mg, Oral, Q4H, PRN: Other (See Comment) Tylenol: 650 mg, Oral, Q6H, PRN: Pain (Mild 1-3) Xanax: 0.25 mg, Oral, BID, PRN: Anxiety Zofran: 4 mg, IV Push, Q4H, PRN: Nausea acetaminophen-HYDROcodone 325 mg-5 mg oral tablet: 2 Tab, Oral, Q4H, PRN: Pain (Moderate 4-6) albumin human 5% intravenous solution: 25 Gram, 500 mL, IV Piggyback, Q1H, PRN: Hypotension aspirin: 81 mg, Oral, Daily cloNIDine: 0.1 mg, Oral, Q4H, PRN: Hypertension dexmedetomidine injection 400 mcg + NaCl 0.9% for drip 100 mL: Titrate, IntraVENous fluocinonide 0.05% topical cream: 1 Application, Topical, QID, PRN: Other (See Comment) hydrALAZINE: 10 mg, IV Push, Q6H, PRN: Hypertension hydrALAZINE: 25 mg, Oral, TID magnesium sulfate + Sodium Chloride 0.9% intravenous solution 50 mL: 1 Gram, 2 mL, 100 mL/Hr, IV Piggyback, 1-Time, PRN: Other (See Comment) morphine: 2 mg, IV Push, Q10Min, PRN: Pain (Severe 7-10) morphine: 2 mg, IV Push, Q2H, PRN: Pain (Severe 7-10) nicotine 21 mg/24 hr transdermal film, extended release: 1 Patch, TransDermal, Daily oxyCODONE: 5 mg, Oral, Q6H, PRN: Pain (Moderate 4-6) potassium chloride 10 mEq/50 mL intravenous solution: 10 mEq, 50 mL, 50 mL/Hr, IV Piggyback, Q1H, PRN: Other (See Comment) rOPINIRole: 1 mg, Oral, At Bedtime vasopressin injection 20 Units + NaCl 0.9% for drip 100 mL: Titrate, IntraVENous Documented Medications Documented Coreg 25 mg oral [...] At Bedtime, 90 Tab, 0 Refill(s), Medications (48) Active Scheduled: (16) #NaCl 0.9% *FLUSH* inj 10 mL 10 mL, IV Push, Q8H #NaCl 0.9% *FLUSH* inj 10 mL 10 mL, IV Push, Q12H #NaCl 0.9% *FLUSH* inj 10 mL 10 mL, IV Push, Q12H aspirin EC 81 mg tab 81 mg 1 Tab, Oral, Daily atenolol 25 mg tab 12.5 mg 0.5 Tab, Oral, QAM carvedilol 25 mg tab 25 mg 1 Tab, Oral, BID famotidine 20 mg/2 mL inj 20 mg [...] initial episode of care / SNOMED CT 9186618900 / Confirmed At risk for sleep apnea / IMO [id number] / Confirmed CHF, acute on chronic / SNOMED CT 23283714 / Confirmed Class 3 Systolic GERD - Gastro-esophageal reflux disease / SNOMED CT 6278532550 / Confirmed H/O: TIA / SNOMED CT 270166328 / Confirmed History of laparoscopic adjustable gastric banding / SNOMED CT 7753700998 / Confirmed History of obstructive sleep apnea / IMO 51005172 / Confirmed HTN - Hypertension / SNOMED CT 4180854530 / Confirmed Mitral regurgitation / SNOMED CT 89433902 / Confirmed Prolonged QT interval / SNOMED CT 152448021 / Confirmed 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 697683772 / Confirmed Pulmonary edema / SNOMED CT 28854055 / Confirmed Restless legs syndrome / SNOMED CT 00153044 / Confirmed RF - Renal failure, Stage 4 / SNOMED CT 1073303209 / Confirmed Sleep apnea-before weight loss surgery / SNOMED CT 295293906 / Confirmed, Active Problems (16) At risk [...] Sleep apnea-before weight loss surgery Physical Examination General: No acute distress, Not alert and oriented. Eye: Normal conjunctiva. Sclera: Not icteric. HENT: Normocephalic, [...] tenderness, No swelling, No deformity. Integumentary: Warm, [place], Moist, No rash. Neurologic: Not alert, Not oriented. Psychiatric: Not cooperative, Not appropriate mood & affect. Review / Management Results review: Labs (Last four charted values) Lactic 1.2 (OCT 10) PT 12.0 (OCT 15) 11.4 (OCT 14) 11.7 (OCT 12) 11.2 (OCT 10) INR 1.1 (OCT 15) 1.1 (OCT 14) 1.1 (OCT 12) 1.1 (OCT 10) PTT 25.7 (OCT 15) 29.1 (OCT 14) [...] 11) H 0.091 (OCT 10) , OCT 16 03:32 138 107 H 31 / H 119 3.9 21 H 3.40 \ OCT 16 03:32 \ L 7.8 / H 12.8 L 116 / L 23.1 \, Radiology Results (Last 48 hours) [id number] -- 10/11/2019 15:38 CR Chest 1 Vw Portable (10/15/2019 10:15) Result: PORTABLE CHEST; HISTORY: Pre-op.COMPARISON: October 11, 2019.FINDINGS: The heart is at the upper limits of normal for size. There aremultiple median sternotomy wires. The mediastinum is unremarkable.There are mild chronic changes in the left lung base. There is nopneumothorax. IMPRESSION: No acute cardiopulmonary process.Images reviewed, interpreted, and dictated by Dr. Lucio Fairchild.Transcribed by Viky Arnold PA-C.I have personally viewed, interpreted and dictated the examination. Ihave read and agree with the above final transcribed report. CR Chest 1 Vw Portable (10/16/2019 16:26) Result: PORTABLE CHESTHISTORY: Respiratory failure., Postop valve replacementCOMPARISON: 10/15/2019.FINDINGS: A single portable radiograph of the chest was performed. Thepatient is status post sternotomy for valve replacement. The patient isstatus post sternotomy. An endotracheal tube is seen within the midthoracic trachea. A nasogastric tube is seen below the diaphragm.Mediastinal drain is present. A [place] catheter is seen with the tip inthe main pulmonary outflow tract. There is decreased lung volume withleft base atelectasis. There is no pneumothorax. There are some mildvascular congestion with mild interstitial edema.IMPRESSION:1. Postop changes with life-support lines in good position.2. Mild vascular congestion and interstitial edema.3. No pneumothorax.Images reviewed, interpreted, and dictated by Jeremias Wells MD . Impression and Plan S/P Mitral [...] systolic CHF: Continue cardiac meds as able. underwent mechanical Valve placement tomorrow Intubated On Mecahnical Ventilation Monitor Anemia TIME SPENT: 40 minutes Critical care time Electronically signed by Evaristo Loyola Conversion Clinical Documentation Clerk Cerner at 10/28/2022 7:08 PM CDT documented in this encounter Plan of Treatment Upcoming Encounters Date Type Department Care Team (Late st Contact Info) Description 04/12/2025 7:30 AM EDT Hospital Encounter [facility] Operating Room 1 [place] [address] Bill Graham MD [address] [place] [address] [address] [place] [address] 04/12/2025 7:30 AM EDT Anesthesia Event [facility] Operating Room [address] [place] [address] Lucio Szymanski MD [address] [place] [address] 04/12/2025 7:30 AM EDT - 04/12/2025 8:55 AM EDT Surgery [facility] Operating Room [address] [place] [phone] Bill Graham MD [address] [facility] [address] [place], [place] [phone] (LAPAROSCOPIC PERITONEAL DIALYSIS CATHETER INSERTION) Scheduled Procedures Name Priority Associated Diagnoses Date/Ti me LAPAROSCOPY, WITH PERITONEAL DIALYSIS CATHETER INSERTION Chronic kidney disease, stage V (HCC) 04/12/2025 7:30 AM EDT documented as of this encounter Visit Diagnoses Not on filedocumented in this encounter Care Teams Sheet Metal Assembler And Riveter Relationship Specialty Start Date End Date Félix Monroe, JOINT CUTTER [address] [facility] [address] [place] [address] PCP - General Nurse Practitioner 08/25/22 documented as of this encounter
--- OUTSIDE RECORDS SUMMARY | 2025-04-11 11:04 | XMS_ITS | Encounter Summary ---
Author Organization [email or web address] ([place], [place], [place], [place]) Address [address] [place] [address] Care Team Providers Care Recreation Facility Manager Name Role Phone Félix Monroe APRN Primary Care Provider [phone] Encounter Details Date Type Department Care Team (Late st Contact Info) Description 10/15/2019 Transcribed Document [facility] Radiology [address] [place] [address] Radha Villa MD [address] [place] [address] [place] [address] Social History Tobacco Use Types Packs/Day Years Used Date Smoking Tobacco: Never Assessed Comments Unknown Sex and Gender Information Value Date Recorded Sex Assigned at Not on file Legal Sex Female 6:53 PM CDT Gender Identity Not on file Sexual Orientation Not on file documented as of this encounter Miscellaneous Notes * Cerner Conversion Note - Radha Villa MD - 10/15/2019 12:33 PM EDT Patient: CORRIE SMITH Age: 49 years Sex: Female : 1970 Associated Diagnoses: None Author: RADHA VILLA MD-NEP Basic Information Seen earlier today. Report some shortness of breath last night but currently feels okay. She reports adequate urine output on: No accurate recording. Blood pressure is better controlled. Health Status Allergies: Allergic Reactions (Selected) Severity Not Documented Codeine- Welts, nausea and hives. Current medications: (Selected) Inpatient Medications Ordered Bactroban 2% nasal ointment: 1 Application, Nostrils Both, BID Benadryl: 12.5 mg, Oral, At Bedtime, PRN: Sleep Core mg, Oral, BID DuoNeb 0.5 mg-2.5 mg/3 mL inhalation solution: 3 mL, Nebulized Inhalation, Q6H, PRN: Shortness of Breath NIFEdipine: 60 mg, Oral, Daily Nitrostat: 0.4 [...] Daily Senna S: 1 Tab, Oral, BID Tenormin: 12.5 mg, Oral, QAM Tylenol: 650 mg, Oral, Q4H, PRN: Other (See Comment) Xanax: 0.25 mg, Oral, BID, PRN: Anxiety aspirin: 81 mg, Oral, Daily cloNIDine: 0.1 mg, Oral, Q4H, PRN: Hypertension hydrALAZINE: 10 mg, IV Push, Q6H, PRN: Hypertension hydrALAZINE: 25 mg, Oral, TID morphine: 2 mg, IV Push, Q2H, PRN: Pain (Severe 7-10) nicotine 21 mg/24 hr transdermal film, extended release: 1 Patch, TransDermal, Daily rOPINIRole: 1 mg, Oral, At Bedtime vancomycin + Sodium Chloride 0.9% intravenous solution 250 mL: 1,250 mg, 250 mL/Hr, IV Piggyback, PREOP Documented Medications Documented Coreg 25 mg oral [...] initial episode of care / SNOMED CT 8764920466 / Confirmed At risk for sleep apnea / IMO 77375306 / Confirmed CHF, acute on chronic / SNOMED CT 35336641 / Confirmed Class 3 Systolic GERD - Gastro-esophageal reflux disease / SNOMED CT 9862800839 / Confirmed H/O: TIA / SNOMED CT 923159402 / Confirmed History of laparoscopic adjustable gastric banding / SNOMED CT 2422761689 / Confirmed History of obstructive sleep apnea / IMO 85917184 / Confirmed HTN - Hypertension / SNOMED CT 8582089041 / Confirmed Mitral regurgitation / SNOMED CT 33267538 / Confirmed Prolonged QT interval / SNOMED CT 076517625 / Confirmed Pulmonary edema / SNOMED CT 97304220 / Confirmed Restless legs syndrome / SNOMED CT 16662588 / Confirmed RF - Renal failure, Stage 4 / SNOMED CT 7803572128 / Confirmed Sleep apnea-before weight loss surgery / SNOMED CT 381944840 / Confirmed Histories Social History Social & [...] Last Charted Minimum Maximum Temp 97.8 (OCT 14 08:38) 97.8 (OCT 14 08:38) 98.1 (OCT 13 14:30) Apical HR 87 (OCT 14 08:39) 76 (OCT 13 13:03) 92 (OCT 13 21:25) Mon HR 90 (OCT 14 10:25) 82 (OCT 14 06:22) 102 (OCT 13 18:01) Resp Rate 16 (OCT 14 08:38) 16 (OCT 14 00:43) 18 (OCT 14 06:22) SBP 140 (OCT 14 10:25) 140 (OCT 14 10:25) H 199 (OCT 13 18:01) DBP 90 (OCT 14 10:25) 90 (OCT 14 06:22) H 127 (OCT 13 18:01) MAP 111 (OCT 14 10:25) 111 (OCT 14 00:43) 156 (OCT 13 18:01) SpO2 99 (OCT 13 21:25) 99 (OCT 13:25) 99 (OCT 13:25) General: Alert and oriented, No acute distress. [...] Labs (Last four charted values) WBC 8.9 (OCT 14) 7.0 (OCT 13) 10.2 (OCT 12) 10.2 (OCT 11) HB L 7.7 (OCT 14) L 7.5 (OCT 13) L 8.1 (OCT 12) L 8.9 (OCT 11) HCT L 23.3 (OCT 14) L 23.0 (OCT 13) L 24.8 (OCT 12) L 26.9 (OCT 11) Plt L 156 (OCT 14) L 144 (OCT 13) L 160 (OCT 12) 164 (OCT 11) Na 140 (OCT 14) 139 (OCT 13) 138 (OCT 12) 137 (OCT 11) K 3.5 (OCT 14) L 3.4 (OCT 13) 3.5 (OCT 12) 3.7 (OCT 11) Cl 111 (OCT 14) 110 (OCT 13) 109 (OCT 12) 105 (OCT 11) CO2 22 (OCT 14) L 19 (OCT 13) 22 (OCT 12) 24 (OCT 11) BUN H 29 (OCT 14) H 29 (OCT 13) H 31 (OCT 12) H 27 (OCT 11) Cr H 3.70 (OCT 14) H 3.80 (OCT 13) H 4.00 (OCT 12) H 3.10 (OCT 11) Glu R H 112 (OCT 14) 94 (OCT 13) 94 (OCT 12) H 115 (OCT 11) Ca L 8.2 (OCT 14) L 8.1 (OCT 13) L 8.2 (OCT 12) 9.2 (OCT 11) Lactic 1.2 (OCT 10) PT 11.4 (OCT 14) 11.7 (OCT 12) 11.2 (OCT 10) INR 1.1 (OCT 14) 1.1 (OCT 12) 1.1 (OCT 10) PTT 29.1 (OCT 14) 27.0 (OCT 12) AST [...] mg/dl 2. uncontrolled hypertension: ? Renovascular disease. Blood pressure appears to be better controlled. 3. Severe mitral regurgitation, status post repair in August of this year, complicated with hemolytic anemia, patient is scheduled for mitral valve replacement DM. I discussed her slowly improving renal dysfunction. Serum creatinine is still higher than her baseline which puts her at high risk for worsening renal dysfunction postoperatively to the point of requiring dialysis. 4. Acute kidney injury most probably secondary to volume depletion and possibly acute tubular necrosis from severe anemia, serum creatinine seems to be a little better. Hopefully with stable blood pressure and stable hemoglobin renal functions would continue improving. Again still a high risk for worsening renal dysfunction postoperatively to the point of requiring dialysis. She understands the risk at this point 5. Severe hemolytic anemia, most probably secondary to mitral valve disease, hematology are following. Hemoglobin stable documented in this encounter Plan of Treatment Upcoming Encounters Date Type Department Care Team (Late st Contact Info) Description 04/12/2025 7:30 AM EDT Hospital Encounter [facility] Operating Room 1 [place] [address] Bill Graham MD [address] [place] [address] 04/12/2025 7:30 AM EDT Anesthesia Event [facility] Operating Room 1 [place] [address] Lucio Szymanski MD [address] [place] [address] 04/12/2025 7:30 AM EDT - 04/12/2025 8:55 AM EDT Surgery [facility] Operating Room 1 [place] [address] Bill Graham MD [address] [place] [address] [address] (LAPAROSCOPIC PERITONEAL DIALYSIS CATHETER INSERTION) Scheduled Procedures Name Priority Associated Diagnoses Date/Ti me LAPAROSCOPY, WITH PERITONEAL DIALYSIS CATHETER INSERTION Chronic kidney disease, stage V (HCC) 04/12/2025 7:30 AM EDT documented as of this encounter Visit Diagnoses Not on filedocumented in this encounter Care Teams Recreation Facility Manager Relationship Specialty Start Date End Date Félix Monroe, TIMBER KILLER [address] [facility] [address] [place] [address] PCP - General Nurse Practitioner 08/25/22 documented as of this encounter
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
--- OUTSIDE RECORDS SUMMARY | 2025-04-11 11:04 | XMS_ITS | Encounter Summary ---
Author Organization [employer] ([place], [place], [place], [place]) Address [address] [address] Care Team Providers Care Mirror Specialist Name Role Phone Fer Félix Francisco RODRIGUEZ Primary Care Provider [phone] Encounter Details Date Type Department Care Team (Late st Contact Info) Description 10/18/[address] [facility] [place] [address] ProviderMaria Esther MD [address] [place] [address] Social History Tobacco Use Types Packs/Day Years Used Date Smoking Tobacco: Never Assessed Comments Unknown Sex and Gender Information Value Date Recorded Sex Assigned at Not on file Legal Sex Female 6:53 PM CDT Gender Identity Not on file Sexual Orientation Not on file documented as of this encounter Miscellaneous Notes * Cerner Conversion Note - Maria Esther Reyes MD - 10/18/2019 5:45 PM CDT On Going Discharge Planning Entered On: 10/18/2019 17:49 EDT Performed On: 10/18/2019 17:45 EDT by ANA MARTINEZ RN-Basket Hand WeaverMicrofiche Camera Operator Progress Note Discharge Arrangements : Patient Post-Acute Information Patient Name: CORRIE SMITH Gender: Female : [birth year] Age: 49 Years No Post-Acute Placement(s) Listed No Post-Acute Service(s) Listed No [place] Referral(s) Listed Discharge Options Discussed with Patient : Home Health Barriers to Discharge Identified : Clinical Condition of Patient Barriers to Discharge Unresolved : Clinical Condition of Patient Patient Offered Choice/Affiliations Explained : No Were Referrals Sent to Post Acute Providers : No Is the Patient Meeting Medical Necessity : Yes Physician Agreeable to Move Forward with D/C Plan? : Yes Did you Attend Multidisciplinary Rounds? : Yes ANA MARTINEZ RN-Basket Hand Weaver - 10/18/2019 17:45 EDT Narrative Progress Note Narrative Progress Note : Patient is a high readmission risk. ELOS: 6 days HD#7 POD#2 Redo MVR; Telemetry AV Paced, O2 sat 97% on RA, MTs out, mid ERWIN out. Labs: Cr 3.9, INR 1.7. PT/OT consult ordered. DCP: Anticipate patient will discharge home with family. Cardiac Rehab set up at [facility]. CM will continue to follow for discharge planning needs. Historical Progress Note : POD #1 MVR redo. Paced and 90. Daily PT/INR. Plans of transferring to . CM to cont following REINA JOHN RN-Care Management - 10/17/19 13:03:51 Day 5 - Pt to OR today for MVR redo surgery requiring hemodynamic monitoring lines; DCP pending progress; anticipate home without needs; will review for OP Cardiac Rehab. ZAINA GUERRERO Rn-Basket Hand Weaver - 10/16/19 14:18:55 Cm received information from [facility]. ??m recieved letter and called for verification and spoke to radha. michael allows these home health companies : [employer], [employer], and [facility]. RAKESH PARRA RN-Basket Hand Weaver - 10/13/19 10:19:59 Cm received information from [facility]. Cm recieved letter and called for verification and spoke to radha. [facility] allows these home health companies : [employer], [facility], and [facility]. Patient is normally independent . patient still denies need for hh and dme. cm will arrange for any needs at discharge. DCP: home vs hh RAKESH PARRA RN-Basket Hand Weaver - 10/13/19 10:24:38 ANA MARTINEZ RN-Basket Hand Weaver - 10/18/2019 17:45 EDT Electronically signed by [facility] Sjh Conversion Poacher Operator Cerner at 10/28/2022 7:26 PM CDT documented in this encounter Plan of Treatment Upcoming Encounters Date Type Department Care Team (Late st Contact Info) Description 04/12/2025 7:30 AM EDT [facility] Operating [facility] 1 [place] [address] [place] [address] [place] [address] [address] [place] [address] 04/12/2025 7:30 AM EDT Anesthesia Event [facility] Operating [facility] 1 [place] [address] Lucio Szymanski MD [address] [place] [address] 04/12/2025 7:30 AM EDT - 04/12/2025 8:55 AM EDT Surgery [facility] Operating Room 1 [place] [address] [place] [address] [place] [address] [address] [place] [address] (LAPAROSCOPIC PERITONEAL DIALYSIS CATHETER INSERTION) Scheduled Procedures Name Priority Associated Diagnoses Date/Ti me LAPAROSCOPY, WITH PERITONEAL DIALYSIS CATHETER INSERTION Chronic kidney disease, stage V (HCC) 04/12/2025 7:30 AM EDT documented as of this encounter Visit Diagnoses Not on filedocumented in this encounter Care Teams Mirror Specialist Relationship Specialty Start Date End Date Félix Monroe, BRAKESHOE REPAIRER [address] [facility] [address] [place] [address] PCP - General Nurse Practitioner 08/25/22 documented as of this encounter
--- OUTSIDE RECORDS SUMMARY | 2025-04-11 11:04 | XMS_ITS | Encounter Summary ---
Author Organization Healthcare Address [address] [place] [address] Care Team Providers Care Deputy Sheriff K9 Handler Name Role Phone Az David MD Primary Care Provider [phone] Encounter Details Date Type Department Care Team ([facility] st Contact Info) Description 03/05/2025 Telephone PAV A Inpatient [address] [place] [address] Stephany Leblanc CV TELE-PROGRESSIVE Social History Tobacco Use Types Packs/Day Years [...] any time in the past [address] [facility], were you homeless or living in a intermediate (including now)? No 02/26/2025 CAGE ASSESSMENT Answer [...] drink first t mohamud in the morning (EYE-COUNSELLORS) to steady your nerves or to get [...] Description 05/24/2025 1:40 PM EST Office Visit [facility] [address] [facility] [phone] Lenore Cosme MD [address] [place] [address] 08/02/2025 1:40 PM EST Office Visit [facility] [address] [facility] [phone] Lenore Cosme MD [address] [place] [address] documented as of this encounter Visit [...] documented as of this encounter Care Teams Deputy Sheriff K9 Handler Relationship Specialty Start Date End Date Az David MD [address] [place] [address] PCP - General 03/22/23 documented as of this encounter
--- OUTSIDE RECORDS SUMMARY | 2025-04-11 11:04 | XMS_ITS | Encounter Summary ---
Author Organization [employer] ([place], [place], [place], [place]) Address [address] [place] [address] Care Team Providers Care Binding Cutter Synthetic Cloth Name Role Phone Félix Monroe APRN Primary Care Provider [phone] Encounter Details Date Type Department Care Team (Late st Contact Info) Description 10/17/2019 Transcribed Document [facility] [place] Family Medicine [address] [place] [address] ProviderMaria Esther MD [address] [place] [address] Social History Tobacco Use Types Packs/Day Years Used Date Smoking Tobacco: Never Assessed Comments Unknown Sex and Gender Information Value Date Recorded Sex Assigned at Not on file Legal Sex Female 6:53 PM CDT Gender Identity Not on file Sexual Orientation Not on file documented as of this encounter Miscellaneous Notes * Cerner Conversion Note - Maria Esther Reyes MD - 10/17/2019 2:49 PM CDT UM Authorization Entered On: 10/17/2019 14:49 EDT Performed On: 10/17/2019 14:49 EDT by JESSICA GUIDO RN-Utilization Review Primary Insurance Authorization Authorization and Policy Numbers : Insurance 1 Health Plan: [place] [employer] Policy Number: [id number] Authorization Number: Insurance Primary Name : [place] [employer] Policy Number: [id number] Authorization Status-Primary : Awaiting callback Reference Number-Primary : [id number] Authorization Number-Primary : [id number] Number of Days Authorized-Primary : 6 Day(s) Authorized Service Begin Date-Primary : 10/11/2019 EDT Authorized Service End Date-Primary : 10/17/2019 EDT Authorization Comments-Primary : clinicals faxed via cerner for cont stay for dos 10/17/2019 Historical Authorization Comments-Primary : Comment 1: Authorized per fax 10/12/2019 @ 1825. Approved x7 days, 10/11/2019 - 10/17/2019. Next review due: 10/17/2019. (Deborah Toro, Instructional Aide 10/13/2019 07:31) Comment 2: submitted on [employer]ity for IP auth w/ clinicals attached (JESSICA GUIDO, RN-Utilization Review 10/12/2019 10:36) JESSICA GUIDO, RN-Utilization Review - 10/17/2019 14:49 EDT Electronically signed by Evaristo Loyola Conversion Entry Level Financial Analyst Cerner at 10/28/2022 7:07 PM CDT documented in this encounter Plan of Treatment Upcoming Encounters Date Type Department Care Team (Late st Contact Info) Description 04/12/2025 7:30 AM EDT Hospital Encounter [facility] Operating Room 1 [place] [address] Bill Graham MD [address] [place] [address] 04/12/2025 7:30 AM EDT Anesthesia Event [facility] Operating Room 1 [place] [address] Lucio Szymanski MD [address] [place] [address] 04/12/2025 7:30 AM EDT - 04/12/2025 8:55 AM EDT Surgery [facility] Operating Room 1 [place] [address] Bill Graham MD [address] [place] [address] (LAPAROSCOPIC PERITONEAL DIALYSIS CATHETER INSERTION) Scheduled Procedures Name Priority Associated Diagnoses Date/Ti me LAPAROSCOPY, WITH PERITONEAL DIALYSIS CATHETER INSERTION Chronic kidney disease, stage V (HCC) 04/12/2025 7:30 AM EDT documented as of this encounter Visit Diagnoses Not on filedocumented in this encounter Care Teams Binding Cutter Synthetic Cloth Relationship Specialty Start Date End Date Félix Monroe, JUNIOR SYSTEMS ENGINEER [address] [place] [address] PCP - General Nurse Practitioner 08/25/22 documented as of this encounter
--- OUTSIDE RECORDS SUMMARY | 2025-04-11 11:04 | XMS_ITS | Encounter Summary ---
Author Organization [employer] ([place], [place], [place], [place]) Address [address] [place] [address] Care Team Providers Care Piped Buttonhole Machine Operator Name Role Phone Félix Monroe APRN Primary Care Provider [phone] Encounter Details Date Type Department Care Team (Late st Contact Info) Description 10/18/2019 Transcribed Document [facility] Family Medicine [address] [place] [address] ProviderMaria Esther MD [address] [place] [address] Social History Tobacco Use Types Packs/Day Years Used Date Smoking Tobacco: Never Assessed Comments Unknown Sex and Gender Information Value Date Recorded Sex Assigned at Not on file Legal Sex Female 6:53 PM CDT Gender Identity Not on file Sexual Orientation Not on file documented as of this encounter Miscellaneous Notes * Cerner Conversion Note - Maria Esther Reyes MD - 10/18/2019 8:24 AM CDT UM Authorization Entered On: 10/18/2019 8:25 EDT Performed On: 10/18/2019 8:24 EDT by Shantal Bernal Rn-Utilization Review Primary Insurance Authorization Authorization and Policy Numbers : Insurance 1 Health Plan: [place] Policy Number: [id number] Authorization Number: Insurance Primary Name : [place] Medicaid Policy Number: [id number] Authorization Status-Primary : Awaiting callback Reference Number-Primary : [id number] Authorization Number-Primary : [id number] Number of Days Authorized-Primary : 6 Day(s) Authorized Service Begin Date-Primary : 10/11/2019 EDT Authorized Service End Date-Primary : 10/17/2019 EDT Historical Authorization Comments-Primary : Comment 1: clinicals faxed via cerner for cont stay for dos 10/17/2019 (JESSICA GUIDO, RN-Utilization Review 10/17/2019 14:49) Comment 2: Authorized per fax 10/12/2019 @ 1825. Approved x7 days, 10/11/2019 - 10/17/2019. Next review due: 10/17/2019. (Deborah Toro, Steam Cleaning Machine Operator 10/13/2019 07:31) Comment 3: submitted on [employer] for IP auth w/ clinicals attached (JESSICA GUIDO, RN-Utilization Review 10/12/2019 10:36) Shantal Bernal, Rn-Utilization Review - 10/18/2019 8:24 EDT Electronically signed by [facility] Conversion Environmental Intern Cerner at 10/28/2022 7:00 PM CDT documented in this encounter Plan of Treatment Upcoming Encounters Date Type Department Care Team (Late st Contact Info) Description 04/12/2025 7:30 AM EDT Hospital Encounter [facility] Operating Room [address] [place] [address] Bill Graham MD [address] [place] [address] [address] [id number] 04/12/2025 7:30 AM EDT Anesthesia Event [facility] Operating Room [address] [place] [address] Lucio Szymanski MD [address] [place] [address] 04/12/2025 7:30 AM EDT - 04/12/2025 8:55 AM EDT Surgery [facility] Operating Room [address] [place] [address] Bill Graham MD [address] [place] [address] [address] [place] [address] (LAPAROSCOPIC PERITONEAL DIALYSIS CATHETER INSERTION) Scheduled Procedures Name Priority Associated Diagnoses Date/Ti me LAPAROSCOPY, WITH PERITONEAL DIALYSIS CATHETER INSERTION Chronic kidney disease, stage V (HCC) 04/12/2025 7:30 AM EDT documented as of this encounter Visit Diagnoses Not on filedocumented in this encounter Care Teams Piped Buttonhole Machine Operator Relationship Specialty Start Date End Date Félix Monroe, IT QUALITY ANALYST [address] [place] [address] PCP - General Nurse Practitioner 08/25/22 documented as of this encounter
--- OUTSIDE RECORDS SUMMARY | 2025-04-11 11:04 | XMS_ITS | Encounter Summary ---
Author Organization Healthcare Address [address] [id number] Care Team Providers Care Fiberglass Laminator Name Role Phone Az David MD Primary Care Provider [phone] Encounter Details Date Type Department Care Team (Latest Contact Info) Description 03/08/2025 Anticoagulation - Warfarin Visit [facility] [address] [facility] [address] [place] [address] Sarai Irizarry, PharmD [address] [id number] Acute decompensated heart failure (CMS/HCC) (Primary Dx); Anticoagulation management encounter; assisted (current) use of anticoagulants; H/O mitral valve replacement Social History Tobacco Use Types Packs/Day Years [...] any time in the past 12 m [facility], were you homeless or living in a alf (including now)? No 02/26/2025 CAGE ASSESSMENT Answer [...] drink first t mohamud in the morning (EYE-INSPECTOR QUALITY ASSURANCE) to steady your nerves or to get rid of a hangover? 0 03/23/2023 CAGE Questionnaire Score 0 023 Utilities Answer Date Recorded In the past 12 months has [employer], [employer], oil, or water [employer]) threatened to shut off services in your [...] things Not at all 03/08/2025 4:06 PM Zaira Kirk CNA * Question Answer Date of Assessment Author Trouble falling or staying asleep, or sleeping too much Not at all 03/08/2025 4:06 PM Zaira Kirk CNA Feeling tired or having little energy Not at all 03/08/2025 4:06 PM Zaira Kirk CNA Poor appetite or overeating Not at all 03/08/2025 4: 06 PM Zaira Kirk CNA Feeling bad about yourself - or that you are a failure or have let yourself or your family down Not at all 03/08/2025 4:06 PM Zaira Kirk CNA Trouble concentrating on things, such as reading the newspaper or watching television Not at all 03/08/2025 4:06 PM Zaira Kirk CNA Moving or speaking so slowly that other people could have noticed? Or the opposite - being so fidgety or restless that you have been moving around a lot more than usual. Not at all 03/08/2025 4:06 PM Zaira Kirk CNA Thoughts that you would be better off or hurting yourself in some way Not at all 03/08/2025 4:06 PM Zaira Kirk CNA * How difficult have these problems made it for you to do your work, take care of things at home, or get along with other people? Answer Date of Assessment Author Not difficult at all 03/08/2025 4:06 PM EDT Zaira Spring CNA documented as of this encounter Miscellaneous Notes * Progress Notes - Sarai Irizarry, PharmD - 03/08/2025 3:13 PM EDT Images from the original note were not included. Anticoagulation Clinic Pharmacy Note History of Present Illness Anticoagulation Summary As of 03/08/2025 INR goal: 2.5-3.5 TTR: -- INR used for dosin.20 (03/08/2025) Warfarin maintenance plan: 4 mg (4 mg x 1) every day Weekly warfarin total: 28 mg Plan last modified: Sarai Irizarry, PharmD (03/08/2025) Next INR check: 03/14/2025 Target end date: Indefinite Indications H/O mitral valve replacement [Z95.2] assisted (current) use of anticoagulants [Z79.01] Anticoagulation Episode Summary INR check location: -- Preferred lab: -- Send INR reminders to: [facility] Comments: -- Anticoagulation Care Providers Provider Role Specialty Phone number Jocy Kennedy, PERSONAL CHEF, DNP Referring Cardiology [phone] Additional History: 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 2009. ?? 2010 [employer] Rational for warfarin [...] No Thromboembolic event: No Missed doses: Yes Patient believes she missed a dose within the last week Extra doses: No Medication changes: No Dietary [...] INR: Lab Results Component Value Date INR 2.20 (A) 03/08/2025 INR 3.4 (H) 03/01/2025 INR 2.7 (H) 02/28/2025 PROTIME 29.3 08/24/2024 PROTIME 18.4 08/04/2024 Renal [...] Weight: Wt Readings from Last 1 Encounters: 03/01/25 76.5 kg (168 lb 10.4 oz) BMI: Estimated body mass index is 27.23 kg/m?? as calculated from the following: Height as of 02/23/25: 1.676 m (5' 5.98 ). Weight as of 03/01/25: 76.5 kg (168 lb 10.4 oz). Assessment and Plan Current warfarin dose: 4 mg daily Slightly subtherapeutic INR for goal of 2.5-3.5. Patient reports that she likely missed a dose last week, but does not recall the exact date. A missed dose could explain the subtherapeutic INR. Patient does report that she will use a pill organizer. New warfarin dose: Take an INCREASED dose of warfarin 6 mg today, 03/08/25, then resume warfarin 4 mg daily. Follow Up Check INR at [facility] in 6 days . Patient Education Patient re-referred to Anticoagulation Clinic. Educated patient when to notify clinic for medication changes, changes in diet, upcoming procedures, etc. Educated patient on [facility] hours of operation and how to get in contact with Anticoagulation Clinic. Educated patient on other aspects of warfarin therapy as directed by our policies and procedures. Provided patient with warfarin education handout and [facility] contact information. Patient expressed understanding and all questions and concerns were addressed. Expressed the importance of keeping up with INR checks as directed by the [facility]. Contact the [facility] at [phone] with any questions or concerns regarding yourwarfarin. Patient verbalized understanding of above care plan: YES Sarai Irizarry, Dannielle [facility] Cosigned by Jocelynn Patel, PharmD at 03/08/2025 4:22 PM EDT Associated attestation - Jocelynn Patel PharmD - 03/08/2025 4:22 PM EDT Attending PharmD Attestation: I saw and evaluated the patient with the pharmacy technician inpatient. I discussed the case with the resident and agree with the findings and plan as documented. I personally participated in the management of the patient. Jocelynn Patel, JackD, [facility] documented in this encounter Plan of Treatment Upcoming Encounters Date Type Department Care Team (Late st Contact Info) Description 05/24/2025 1:40 PM EST Office Visit [facility] [address] [address] Lenore Cosme MD [address] [place] [address] 08/02/2025 1:40 PM EST Office Visit [facility] 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 H/O mitral valve replacement POCT INR Routine 03/08/2025 3:15 PM EDT Acute decompensated heart failure (CMS/HCC) documented in this encounter Results * (ABNORMAL) POCT INR (03/08/2025 4:24 PM EDT) Prothrombin Time POCT INR 2.20(A) 0.90 - 1.10 Blood Venous blood specimen / Unknown 03/08/2025 4:24 PM EDT [facility] Provider POINT OF CARE TEST ENTER/PADDY T ORDERABLES Final Result * (ABNORMAL) POCT INR (03/08/2025 3:15 PM EDT) Prothrombin Time POCT INR 2.20(A) 0.90 - 1.10 Blood Venous blood specimen / Unknown 03/08/2025 3:15 PM EDT [facility] Provider POINT OF CARE TEST ENTER/PADDY T ORDERABLES Final Result documented in this encounter Visit Diagnoses Diagnosis Acute decompensated heart failure- Primary Anticoagulation management encounter Encounter for therapeutic drug 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
--- OUTSIDE RECORDS SUMMARY | 2025-04-11 11:04 | XMS_ITS | Encounter Summary ---
Author Organization [employer] ([place], [place], [place], [place]) Address [address] [address] Care Team Providers Care Registered Veterinary Technician Name Role Phone Félix Monroe APRN Primary Care Provider [phone] Encounter Details Date Type Department Care Team (Late st Contact Info) Description 10/17/2019 Transcribed Document [facility] Family Medicine [address] [place] [address] ProviderMaria Esther MD [address] [place] [place], [place] [id number] Social History Tobacco Use Types Packs/Day Years Used Date Smoking Tobacco: Never Assessed Comments Unknown Sex and Gender Information Value Date Recorded Sex Assigned at Not on file Legal Sex Female 6:53 PM CDT Gender Identity Not on file Sexual Orientation Not on file documented as of this encounter Miscellaneous Notes * Cerner Conversion Note - Maria Esther ProviderMD - 10/17/2019 5:00 PM CDT Chart Check - Review Order Profile Entered On: 10/17/2019 16:31 EDT Performed On: 10/17/2019 17:00 EDT by Ema Garner, RN Chart Check Powerplans Initiated/Discontinued as Appropriate : Yes All Active Orders Reviewed : Yes Ema Garner RN - 10/17/2019 16:31 EDT Electronically signed by Evaristo Loyola Conversion Topper Press Operator Automatic Cerner at 10/28/2022 7:11 PM CDT documented in this encounter Plan of Treatment Upcoming Encounters Date Type Department Care Team (Late st Contact Info) Description 04/12/2025 7:30 AM EDT Hospital Encounter [facility] Operating Room [address] [place] [address] Bill Graham MD [address] [facility] [address] [place] [address] 04/12/2025 7:30 AM EDT Anesthesia Event [facility] Operating Room [address] [place] [address] Lucio Szymanski MD [address] [place] [address] 04/12/2025 7:30 AM EDT - 04/12/2025 8:[address] [facility] Operating Room [address] [place] [address] Bill Graham MD [address] [facility] [address] [place] [address] (LAPAROSCOPIC PERITONEAL DIALYSIS CATHETER INSERTION) Scheduled Procedures Name Priority Associated Diagnoses Date/Ti me LAPAROSCOPY, WITH PERITONEAL DIALYSIS CATHETER INSERTION Chronic kidney disease, stage V (HCC) 04/12/2025 7:30 AM EDT documented as of this encounter Visit Diagnoses Not on filedocumented in this encounter Care Teams Registered Veterinary Technician Relationship Specialty Start Date End Date Félix Monroe, CENTRAL SUPPLY NURSE [address] [facility] [address] [place] [address] PCP - General Nurse Practitioner 08/25/22 documented as of this encounter
--- OUTSIDE RECORDS SUMMARY | 2025-04-11 11:04 | XMS_ITS | Encounter Summary ---
Author Organization [employer] ([place], [place], [place], [place]) Address [address] [address] Care Team Providers Care Car Dryer Name Role Phone Félix Monroe APRN Primary Care Provider [phone] Encounter Details Date Type Department Care Team (Late st Contact Info) Description 10/14/2019 Transcribed Document [facility] Family Medicine [facility] [place] [address] ProviderMaria Esther MD [address] [place] [address] Social History Tobacco Use Types Packs/Day Years Used Date Smoking Tobacco: Never Assessed Comments Unknown Sex and Gender Information Value Date Recorded Sex Assigned at Not on file Legal Sex Female 6:53 PM CDT Gender Identity Not on file Sexual Orientation Not on file documented as of this encounter Miscellaneous Notes * Cerner Conversion Note - Maria Esther Reyes MD - 10/14/2019 11:09 AM CDT Patient: CORRIE SMITH Age: 49 years Sex: Female : 1970 Associated Diagnoses: None Author: GILES BLAS MD-INT DATE OF SERVICE: 10/14/2019 Basic Information Increase in Blood pressure She is aware of the plan for valve surgery Wednesday. She is also aware her renal function has been worsening. She had no specific complaints today. Review of Systems Constitutional: No fever, No chills. Respiratory: No shortness of breath, No cough. Cardiovascular: No chest pain, No palpitations. Gastrointestinal: No nausea, No vomiting. Genitourinary: No dysuria, No hematuria. Hematology/Lymphatics: No bruising tendency. Musculoskeletal: No back pain. Integumentary: No rash. Neurologic: Alert and oriented X4. Psychiatric: No anxiety, No depression. Health Status Allergies: Allergic Reactions (Selected) Severity [...] 0.25 mg, Oral, BID, PRN: Anxiety amLODIPine: 5 mg, Oral, Daily aspirin: 81 [...] Tab, 0 Refill(s), Medications (16) Active Scheduled: (8) #NaCl 0.9% *FLUSH* inj 10 mL [...] mg tab 1 Tab, Oral, BID Continuous: (0) PRN: (8) #NaCl 0.9% *FLUSH* inj 10 mL 10 mL, IV Push, See Comment acetaminophen 325 mg tab 650 mg 2 Tab, Oral, Q4H albuterol-ipratropium inh 3 mL 3 mL, Nebulized Inhalation, Q6H ALPRAZolam 0.25 mg tab 0.25 mg 1 Tab, Oral, BID cloNIDine 0.1 mg tab 0.1 mg 1 Tab, Oral, Q4H hydrALAZINE 20 mg/1 mL inj 10 mg 0.5 mL, IV Push, Q6H morphine 2 mg/1 ml inj 2 mg 1 mL, IV Push, Q2H promethazine 25 mg/1 mL inj 6.25 mg 0.25 mL, IntraVENous, Q6H Problem list: Medical NSTEMI, initial episode of care / SNOMED CT 6064238207 / Confirmed At risk for sleep apnea / IMO 21609404 / Confirmed CHF, acute on chronic / SNOMED CT 94555583 / Confirmed Class 3 Systolic GERD - Gastro-esophageal reflux disease / SNOMED CT 8850208138 / Confirmed H/O: TIA / SNOMED CT 567101048 / Confirmed History of laparoscopic adjustable gastric banding / SNOMED CT 4396206589 / Confirmed History of obstructive sleep apnea / IMO 11104445 / Confirmed HTN - Hypertension / SNOMED CT 8260036062 / Confirmed Mitral regurgitation / SNOMED CT 12534136 / Confirmed Prolonged QT interval / SNOMED CT 094574991 / Confirmed Pulmonary edema / SNOMED CT 96809149 / Confirmed Restless legs syndrome / SNOMED CT 20984052 / Confirmed RF - Renal failure, Stage 4 / SNOMED CT 7321480928 / Confirmed Sleep apnea-before weight loss surgery / SNOMED CT 153455716 / Confirmed, Active Problems (15) At risk [...] 24 hrs) Last Charted Minimum Maximum Temp 98.2 (OCT 13 09:00) 97.7 (OCT 12 14:12) 98.2 (OCT 13 09:00) Mon HR 95 (OCT 13 09:04) 88 (OCT 13 02:30) 95 (OCT 13 09:04) SBP H 194 (OCT 13 09:04) 134 (OCT 12 13:10) H 194 (OCT 13 09:04) DBP H 122 (OCT 13 09:04) 89 (OCT 12 13:10) H 122 (OCT 13 09:04) MAP 156 (OCT 13 09:04) 105 (OCT 12 13:10) 156 (OCT 13 09:04) SpO2 98 (OCT [...] 11) 8.0 (OCT 10) ALB L 2.9 (APR 03) 3.4 (OCT 11) 3.9 (OCT 10) Lipase [...] systolic CHF: Continue cardiac meds as able. For mechanical Valve placement on Wednesday Coreg , and norvasc for BP Monitor Anemia TIME SPENT: 33 minutes documented in this encounter Plan of Treatment Upcoming Encounters Date Type Department Care Team (Late st Contact Info) Description 04/12/2025 7:30 AM EDT Hospital Encounter [facility] Operating Room [address] [place] [address] Bill Graham MD [address] [place] [address] [address] 04/12/2025 7:30 AM EDT Anesthesia Event [facility] Operating Room [address] [place] [address] Lucio Szymanski MD [address] [place] [address] 04/12/2025 7:30 AM EDT - 04/12/2025 8:55 AM EDT Surgery [facility] Operating Room [address] [place] [address] Bill Graham MD [address] [place] [address] [address] (LAPAROSCOPIC PERITONEAL DIALYSIS CATHETER INSERTION) Scheduled Procedures Name Priority Associated Diagnoses Date/Ti me LAPAROSCOPY, WITH PERITONEAL DIALYSIS CATHETER INSERTION Chronic kidney disease, stage V (HCC) 04/12/2025 7:30 AM EDT documented as of this encounter Visit Diagnoses Not on filedocumented in this encounter Care Teams Car Dryer Relationship Specialty Start Date End Date Félix Monroe, PERL PROGRAMMER [address] [facility] [address] [place] [address] PCP - General Nurse Practitioner 08/25/22 documented as of this encounter
--- OUTSIDE RECORDS SUMMARY | 2025-04-11 11:04 | XMS_ITS | Encounter Summary ---
Author Organization [employer] ([place], [place], [place], [place]) Address [address] [address] Care Team Providers Care Cement Production Plant Operator Name Role Phone Fer Félix Singh APRN Primary Care Provider [phone] Encounter Details Date Type Department Care Team (Late st Contact Info) Description 10/16/2019 Transcribed Document [facility] [place] [facility] [place] [address] ProviderMaria Esther MD [address] [place] [address] Social History Tobacco Use Types Packs/Day Years Used Date Smoking Tobacco: Never Assessed Comments Unknown Sex and Gender Information Value Date Recorded Sex Assigned at Not on file Legal Sex Female 6:53 PM CDT Gender Identity Not on file Sexual Orientation Not on file documented as of this encounter Miscellaneous Notes * Cerner Conversion Note - Maria Esther Reyes MD - 10/16/2019 8:49 AM CDT DATE OF PROCEDURE: 10/16/2019 SURGEON: Александр Valdez MD PREOPERATIVE DIAGNOSIS: Mitral valve regurgitation. POSTOPERATIVE DIAGNOSIS: Mitral valve regurgitation. PROCEDURES PERFORMED: 1. Right radial arterial line. 2. IJ [place]-Siddharth utilizing SonoSite ultrasound. INDICATIONS: The patient is a 49-year-old female, who is being brought to the operating room today for a redo MVR, requiring hemodynamic monitoring lines. DESCRIPTION OF PROCEDURE: The patient was brought into the operating room on 10/16/2019. There, her left wrist was prepped and draped in sterile fashion. An Arrow introducer utilizing SonoSite was attempted, but unable to cannulate left radial artery due to caliber and disease. Then, went onto the right wrist, which was prepped and draped in sterile fashion. Utilizing SonoSite, was able to cannulate with Arrow introducer, receiving good blood pressure tracings. We then went to the right neck area that was prepped and draped in sterile fashion utilizing SonoSite once again, located the right IJ, inserted guidewire into that vessel and threaded a MAC introducer over guidewire. Then, [place]-Siddharth catheter was attempted to advance, but was only able to receive RV tracings. We then left the [place]-Siddharth advanced into the PA after RIA probe was placed. The patient tolerated both procedures well without any blood loss. /[id number] DICTATED BY: JUSTIN Dey for Александр Valdez MD Александр Valdez MD PM/AQ / PM / MODL /[id number] Electronically signed by Nir [facility] Conversion Music Store Manager Cerner at 10/28/2022 7:05 PM CDT documented in this encounter Plan of Treatment Upcoming Encounters Date Type Department Care Team (Late st Contact Info) Description 04/12/2025 7:30 AM EDT Hospital Encounter [facility] Operating Room 1 [place] [address] Bill Graham MD [address] [place] [address] [address] [place] [address] 04/12/2025 7:30 AM EDT Anesthesia Event [facility] Operating Room 1 [place] [address] Lucio Szymanski MD [address] [place] [address] 04/12/2025 7:30 AM EDT - 04/12/2025 8:55 AM EDT Surgery [facility] Operating Room 1 [place] [address] Bill Graham MD [address] [facility] [address] [place] [address] (LAPAROSCOPIC PERITONEAL DIALYSIS CATHETER INSERTION) Scheduled Procedures Name Priority Associated Diagnoses Date/Ti me LAPAROSCOPY, WITH PERITONEAL DIALYSIS CATHETER INSERTION Chronic kidney disease, stage V (HCC) 04/12/2025 7:30 AM EDT documented as of this encounter Visit Diagnoses Not on filedocumented in this encounter Care Teams Cement Production Plant Operator Relationship Specialty Start Date End Date Félix Monroe, EXPERIMENTAL WORKER [address] [facility] [address] [place] [address] PCP - General Nurse Practitioner 08/25/22 documented as of this encounter
--- OUTSIDE RECORDS SUMMARY | 2025-04-11 11:04 | XMS_ITS | Encounter Summary ---
Author Organization [employer] ([place], [place], [place], [place]) Address [address] [place] [address] Care Team Providers Care Cook Station Name Role Phone MonroeFélix APRN Primary Care Provider [phone] Encounter Details Date Type Department Care Team (Late st Contact Info) Description 10/15/2019 Transcribed Document [facility] [place] [facility] [place] [address] ProviderMaria Esther MD [address] [place] [address] Social History Tobacco Use Types Packs/Day Years Used Date Smoking Tobacco: Never Assessed Comments Unknown Sex and Gender Information Value Date Recorded Sex Assigned at Not on file Legal Sex Female 6:53 PM CDT Gender Identity Not on file Sexual Orientation Not on file documented as of this encounter Miscellaneous Notes * Cerner Conversion Note - Maria Esther ProviderMD - 10/15/2019 7:00 PM CDT Spiritual Care Short Form Entered On: 10/15/2019 21:56 EDT Performed On: 10/15/2019 19:00 EDT by SIMRAN BARNETT Chaplain-Non Cert General Information, Spiritual Care Reason for Visit : Initial Ministry Provided to : Patient Intervention/Comment/Summary Points : Pre-surgery visit to patient; she said this surgery is a re-do of a previous valve surgery is nervous about it; she also said she dreads the recovery phase because it is painful. Patient is hopeful that this surgery will be successful so that she can get back to life with her family and her work. She is very well supported by her family and uses humor to cope. At time of visit, patient appeared to be coping fairly well despite her concerns. Spiritual/Emotional Acuity : Low Spiritual Framework : Unknown [employer] Preference : SIMRAN Aldana, Paint Factory Worker-Non Cert - 10/15/2019 21:46 EDT Electronically signed by Nir [facility] Conversion Information Receptionist Cerner at 10/28/2022 7:22 PM CDT documented in this encounter Plan of Treatment Upcoming Encounters Date Type Department Care Team (Late st Contact Info) Description 04/12/2025 7:30 AM EDT Hospital Encounter [facility] Operating Room 1 [place] [address] [place] [address] [place] [address] [address] [place] [address] 04/12/2025 7:30 AM EDT Anesthesia Event [facility] Operating Room 1 [place] [address] Lucio Szymanski MD [address] [place] [address] 04/12/2025 7:30 AM EDT - 04/12/2025 8:55 AM EDT Surgery [facility] Operating Room 1 [place] [address] [place] [address] [place] [address] (LAPAROSCOPIC PERITONEAL DIALYSIS CATHETER INSERTION) Scheduled Procedures Name Priority Associated Diagnoses Date/Ti me LAPAROSCOPY, WITH PERITONEAL DIALYSIS CATHETER INSERTION Chronic kidney disease, stage V (HCC) 04/12/2025 7:30 AM EDT documented as of this encounter Visit Diagnoses Not on filedocumented in this encounter Care Teams Cook Station Relationship Specialty Start Date End Date Félix Monroe, TOY STUFFER [address] [facility] [address] [place] [address] PCP - General Nurse Practitioner 08/25/22 documented as of this encounter
--- OUTSIDE RECORDS SUMMARY | 2025-04-11 11:04 | XMS_ITS | Encounter Summary ---
Author Organization [employer] ([place], [place], [place], [place]) Address [address] [address] Care Team Providers Care Salesperson Pets And Pet Supplies Name Role Phone Félix Monroe APRN Primary Care Provider [phone] Encounter Details Date Type Department Care Team (Late st Contact Info) Description 10/15/2019 Transcribed Document [facility] [place] Family Medicine [address] [place] [address] ProviderMaria Esther MD [address] [place] [address] Social History Tobacco Use Types Packs/Day Years Used Date Smoking Tobacco: Never Assessed Comments Unknown Sex and Gender Information Value Date Recorded Sex Assigned at Not on file Legal Sex Female 6:53 PM CDT Gender Identity Not on file Sexual Orientation Not on file documented as of this encounter Miscellaneous Notes * Cerner Conversion Note - Maria Esther Reyes MD - 10/15/2019 5:52 PM CDT Patient: CORRIE SMITH Age: 49 years Sex: Female : 1970 Associated Diagnoses: None Author: GILES BLAS MD-INT DATE OF SERVICE: 10/15/2019 Basic Information She is aware of the plan for [...] Welts Current medications: (Selected) Inpatient Medications Ordered Bactroban [...] At Bedtime, 90 Tab, 0 Refill(s), Medications (23) Active Scheduled: (12) #NaCl 0.9% *FLUSH* inj 10 mL 10 mL, IV Push, Q8H aspirin EC 81 mg tab 81 mg 1 Tab, Oral, Daily atenolol 25 mg tab 12.5 mg 0.5 Tab, Oral, QAM carvedilol 25 mg tab 25 mg 1 Tab, Oral, BID hydrALAZINE 25 mg tab [...] 8.6/50 mg tab 1 Tab, Oral, BID vancomycin + NaCl 0.9% 250 mL 1,250 mg, IV Piggyback, PREOP Continuous: (0) PRN: (11) #NaCl 0.9% *FLUSH* inj 10 mL 10 mL, IV Push, See Comment #NaCl 0.9% *FLUSH* inj 10 mL 10 mL, IV Push, See Comment acetaminophen 325 mg tab 650 mg 2 Tab, Oral, Q4H albuterol-ipratropium inh 3 mL 3 mL, Nebulized Inhalation, Q6H ALPRAZolam 0.25 mg tab 0.25 mg 1 Tab, Oral, BID cloNIDine 0.1 mg tab 0.1 mg 1 Tab, Oral, Q4H diphenhydrAMINE 25 mg tab 12.5 mg 0.5 Tab, Oral, At Bedtime hydrALAZINE 20 mg/1 mL inj 10 mg 0.5 mL, IV Push, Q6H morphine 2 mg/1 ml inj 2 mg 1 mL, IV Push, Q2H nitroglycerin 0.4 mg tab # 25 btl 0.4 mg 1 Tab, SubLINgual, Q5Min promethazine 25 mg/1 mL inj 6.25 mg 0.25 mL, IntraVENous, Q6H Problem list: Medical NSTEMI, initial episode of care / SNOMED CT 9831494778 / Confirmed At risk for sleep apnea / IMO 42635444 / Confirmed CHF, acute on chronic / SNOMED CT 86831408 / Confirmed Class 3 Systolic GERD - Gastro-esophageal reflux disease / SNOMED CT 7981513292 / Confirmed H/O: TIA / SNOMED CT 892889053 / Confirmed History of laparoscopic adjustable gastric banding / SNOMED CT 0800966787 / Confirmed History of obstructive sleep apnea / IMO 07411272 / Confirmed HTN - Hypertension / SNOMED CT 4901524442 / Confirmed Mitral regurgitation / SNOMED CT 86271268 / Confirmed Prolonged QT interval / SNOMED CT 247324139 / Confirmed Pulmonary edema / SNOMED CT 96014831 / Confirmed Restless legs syndrome / SNOMED CT 09932747 / Confirmed RF - Renal failure, Stage 4 / SNOMED CT 9468445805 / Confirmed Sleep apnea-before weight loss surgery / SNOMED CT 723623080 / Confirmed, Active Problems (15) At risk [...] hrs) Last Charted Minimum Maximum Temp 97.5 (OCT 14 14:56) 97.5 (OCT 14 14:56) 97.8 (OCT 14 06:22) Apical HR 87 (OCT 14 16:16) 87 (OCT 14 08:39) 92 (OCT 13 21:25) Mon HR 97 (OCT 14 14:56) 82 (OCT 14 06:22) 102 (OCT 13 18:01) Resp Rate 16 (OCT 14 08:38) 16 (OCT 14 00:43) 18 (OCT 14 06:22) SBP H 153 (OCT 14 14:56) 140 (OCT 14 10:25) H 199 (OCT 13 18:01) DBP H 94 (OCT 14 14:56) 90 (OCT 14 06:22) H 127 (OCT 13 18:01) MAP 117 (OCT 14 14:56) 111 (OCT 14 00:43) 156 (OCT 13 18:01) SpO2 99 (OCT 13 21:25) 99 (OCT 13 21:25) 99 (OCT 13 21:25) General: Alert and oriented, No acute distress. [...] 26.9 (OCT 11) Plt L 156 (OCT 05) L 144 (OCT 04) L 160 (OCT 12) 164 (OCT 11) Na 140 (OCT 05) 139 (OCT 13) 138 (OCT 12) 137 [...] meds as able. For mechanical Valve placement tomorrow Continue coreg and norvasc Monitor Anemia TIME SPENT: 25 minutes documented in this encounter Plan of Treatment Upcoming Encounters Date Type Department Care Team (Late st Contact Info) Description 04/12/2025 7:30 AM EDT Hospital Encounter [facility] Operating Room 1 [place] [address] [place] [address] [place] [address] 04/12/2025 7:30 AM EDT Anesthesia Event [facility] Operating Room 1 [place] [address] Lucio Szymanski MD [address] [place] [address] 04/12/2025 7:30 AM EDT - 04/12/2025 8:55 AM EDT Surgery [facility] Operating Room 1 [place] [address] Bill Graham MD [address] [place] [address] (LAPAROSCOPIC PERITONEAL DIALYSIS CATHETER INSERTION) Scheduled Procedures Name Priority Associated Diagnoses Date/Ti me LAPAROSCOPY, WITH PERITONEAL DIALYSIS CATHETER INSERTION Chronic kidney disease, stage V (HCC) 04/12/2025 7:30 AM EDT documented as of this encounter Visit Diagnoses Not on filedocumented in this encounter Care Teams Salesperson Pets And Pet Supplies Relationship Specialty Start Date End Date Félix Monroe, LEGAL CLERK [address] [facility] [address] [place], [place] [id number] PCP - General Nurse Practitioner 08/25/22 documented as of this encounter
--- OUTSIDE RECORDS SUMMARY | 2025-04-11 11:04 | XMS_ITS | Encounter Summary ---
Author Organization [employer] ([place], [place], [place], [place]) Address [address] [address] Care Team Providers Care Building Construction Estimator Name Role Phone Fer Félix Francisco RODRIGUEZ Primary Care Provider [phone] Encounter Details Date Type Department Care Team (Late st Contact Info) Description 10/19/2019 Transcribed Document [facility] [place] [facility] [place] [address] ProviderMaria Esther MD [address] [place] [address] Social History Tobacco Use Types Packs/Day Years Used Date Smoking Tobacco: Never Assessed Comments Unknown Sex and Gender Information Value Date Recorded Sex Assigned at Not on file Legal Sex Female 6:53 PM CDT Gender Identity Not on file Sexual Orientation Not on file documented as of this encounter Miscellaneous Notes * Cerner Conversion Note - Maria Esther Reyes MD - 10/19/2019 12:17 PM CDT Patient: CORRIE SMITH Age: 49 years Sex: Female : 1970 Associated Diagnoses: None Author: SHAWANDA LUIS MD-VANESSA Basic Information Feels better today, she has no complaints Review of Systems ROS reviewed as documented in chart Health Status Allergies: Allergic Reactions (Selected) Severity Not Documented Codeine- Welts, nausea and hives., Allergies (1) Active Reaction codeine Welts Current medications: (Selected) Inpatient Medications Ordered Ativan: 1 mg, IV Push, Q4H, PRN: Agitation Coumadin: 0.5 mg, Oral, Daily Dulcolax Laxative: 10 mg, Rectal, Daily, PRN: Constipation DuoNeb 0.5 mg-2.5 mg/3 mL inhalation solution: 3 mL, Nebulized Inhalation, RT_Q4H, PRN: Shortness of Breath Mucinex: 1,200 mg, Oral, BID NIFEdipine: 60 [...] At Bedtime, 90 Tab, 0 Refill(s), Medications (30) Active Scheduled: (13) #NaCl 0.9% *FLUSH* inj [...] tab 25 mg 1 Tab, Oral, TID nicotine 21 mg/24 hr patch 1 Patch, [...] 0.5 mg 0.5 Tab, Oral, Daily Continuous: (0) PRN: (17) #NaCl 0.9% *FLUSH* inj 10 [...] initial episode of care / SNOMED CT 7898542260 / Confirmed At risk for sleep apnea / IMO 97282308 / Confirmed CHF, acute on chronic / SNOMED CT 34966514 / Confirmed Class 3 Systolic GERD - Gastro-esophageal reflux disease / SNOMED CT 1372207024 / Confirmed H/O: TIA / SNOMED CT 213054740 / Confirmed History of laparoscopic adjustable gastric banding / SNOMED CT 4011269580 / Confirmed History of obstructive sleep apnea / IMO 62839346 / Confirmed HTN - Hypertension / SNOMED CT 4109096770 / Confirmed Mitral regurgitation / SNOMED CT 70587566 / Confirmed Prolonged QT interval / SNOMED CT 621956026 / Confirmed 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 153161049 / Confirmed Pulmonary edema / SNOMED CT 29071254 / Confirmed Restless legs syndrome / SNOMED CT 78241791 / Confirmed RF - Renal failure, Stage 4 / SNOMED CT 3953508491 / Confirmed Sleep apnea-before weight loss surgery / SNOMED CT 920534832 / Confirmed, Active Problems (16) At risk [...] Past Medical History: Active HTN - Hypertension (0971047270) Family History: No family history items have [...] Last Charted Minimum Maximum Temp 98.2 (OCT 18 07:59) 97.8 (OCT 17 14:30) 98 (OCT 17 17:24) Apical HR 88 (OCT 17 14:56) 88 (OCT 17 14:56) 88 (OCT 17 14:56) Mon HR 88 (OCT 18 07:59) 81 (OCT 18 05:27) 90 (OCT 17 14:30) Resp Rate 16 (OCT 18 07:59) 16 (OCT 18 01:46) 18 (OCT 17 17:24) SBP 100 (OCT 18 07:59) 100 (OCT 18 07:59) 133 (OCT 17 17:24) DBP 68 (OCT 18 07:59) 68 (OCT 18 07:59) H 93 (OCT 17 22:22) MAP 80 (OCT 18 07:59) 80 (OCT 18 07:59) 106 (OCT 17 22:22) SpO2 97 (OCT 18 05:27) L 93 (OCT 17 14:30) 99 (OCT 17 17:24) General: Alert and oriented, No acute distress. [...] Labs (Last four charted values) WBC H 15.3 (OCT 18) H 16.9 (OCT 17) H 12.8 (OCT 16) H 16.0 (OCT 15) HB L 8.3 (OCT 18) L 8.2 (OCT 17) L 8.0 (OCT 16) L 7.8 (OCT 16) HCT L 25.2 (OCT 18) L 25.0 (OCT 08) L 25.1 (OCT 16) L 23.1 (OCT 07) Plt L 141 (OCT 18) L 155 (OCT 08) L 116 (OCT 16) L 123 (OCT 15) Na L 132 (OCT 18) L 133 (OCT 08) 138 (OCT 16) 140 (OCT 06) K 3.7 (OCT 18) 4.1 (OCT 08) 4.4 (OCT 16) 3.9 (OCT 16) Cl 102 (OCT 09) 102 (OCT 08) 107 (OCT 07) 112 (OCT 15) CO2 22 (OCT 09) L 19 (OCT 08) 21 (OCT 07) L 20 (OCT 06) BUN H 39 (OCT 09) H 36 (OCT 08) H 31 (OCT 07) H 27 (OCT 06) Cr H 3.70 (OCT 18) H 3.90 (OCT 08) H 3.40 (OCT 16) H 3.61 (OCT 15) Glu R 99 (OCT 18) H 122 (OCT 17) H 119 (OCT 16) 106 (OCT 15) Ca 8.4 (OCT 18) 8.8 (OCT 17) L 7.9 (OCT 16) 8.4 (OCT 15) Lactic 1.2 (OCT 10) PT H 49.3 (OCT 18) H 18.3 (OCT 17) 11.6 (OCT 16) 12.0 (OCT 15) INR H 4.7 (OCT 18) H 1.7 (OCT 17) 1.1 (OCT 16) 1.1 (OCT 15) PTT 25.7 (OCT 15) 29.1 (OCT 14) 27.0 (OCT 12) AST H 147 (OCT 18) H 90 (OCT 11) H 145 (OCT 10) ALT 16 (OCT 18) 21 (OCT 11) 22 (OCT 10) ALK P 75 (OCT 18) 80 (OCT 11) 95 (OCT 10) T Bili 0.5 (OCT 18) H 1.8 (OCT 11) H 1.8 (OCT 11) H 3.0 (OCT 10) PTN L 6.0 (OCT 18) 7.1 (OCT 11) 8.0 (OCT 10) ALB L 3.0 (OCT 18) L 2.9 (OCT 12) 3.4 (OCT 11) 3.9 (OCT 10) Lipase 147 (OCT 10) Troponin H 0.054 (OCT 11) H 0.091 (OCT 10) . Impression and Plan 1. Chronic kidney disease stage IV, most probably secondary to renal vascular disease versus hypertensive nephrosclerosis, baseline serum creatinine is 2 mg/dl 2. hypertension: Blood pressure appears to be better [...] severe anemia, serum creatinine seems to be plateauing between 3. 4???3 0.9 g/dL. with stable blood pressure and stable hemoglobin renal functions continue monitoring. 5. Severe hemolytic anemia, most probably secondary to mitral valve disease, hematology are following. Hemoglobin stable, will leave the management to hematology service. documented in this encounter Plan of Treatment Upcoming Encounters Date Type Department Care Team (Late st Contact Info) Description 04/12/2025 7:30 AM EDT Hospital Encounter [facility] Operating Room 1 [place] [address] [place] [address] [place] [address] [address] [place] [address] 04/12/2025 7:30 AM EDT Anesthesia Event [facility] Operating Room 1 [place] [address] Lucio Szymanski MD [address] [place] [address] 04/12/2025 7:30 AM EDT - 04/12/2025 8:55 AM EDT Surgery [facility] Operating Room 1 [place] [address] Bill Graham MD [address] [place] [address] [address] (LAPAROSCOPIC PERITONEAL DIALYSIS CATHETER INSERTION) Scheduled Procedures Name Priority Associated Diagnoses Date/Ti me LAPAROSCOPY, WITH PERITONEAL DIALYSIS CATHETER INSERTION Chronic kidney disease, stage V (HCC) 04/12/2025 7:30 AM EDT documented as of this encounter Visit Diagnoses Not on filedocumented in this encounter Care Teams Building Construction Estimator Relationship Specialty Start Date End Date Félix Monroe, OWNER [employer] [address] [facility] [address] [place] [address] PCP - General Nurse Practitioner 08/25/22 documented as of this encounter
--- OUTSIDE RECORDS SUMMARY | 2025-04-11 11:04 | XMS_ITS | Encounter Summary ---
Author Organization [employer] ([place], [place], [place], [place]) Address [address] [address] Care Team Providers Care Training And Development Officer Name Role Phone Félix Monroe APRN Primary Care Provider [phone] Encounter Details Date Type Department Care Team (Late st Contact Info) Description 10/16/2019 Transcribed Document [facility] [place] Family Medicine [address] [place] [address] ProviderMaria Esther MD [address] [place] [address] Social History Tobacco Use Types Packs/Day Years Used Date Smoking Tobacco: Never Assessed Comments Unknown Sex and Gender Information Value Date Recorded Sex Assigned at Not on file Legal Sex Female 6:53 PM CDT Gender Identity Not on file Sexual Orientation Not on file documented as of this encounter Miscellaneous Notes * Cerner Conversion Note - Maria Esther ProviderMD - 10/16/2019 5:00 PM CDT Chart Check - Review Order Profile Entered On: 10/16/2019 23:43 EDT Performed On: 10/16/2019 17:00 EDT by Balwinder Leach RN Chart Check Power[employer]ans Initiated/Discontinued as Appropriate : Yes All Active Orders Reviewed : Yes Balwinder Leach RN - 10/16/2019 23:43 EDT documented in this encounter Plan of Treatment Upcoming Encounters Date Type Department Care Team (Late st Contact Info) Description 04/12/2025 7:30 AM EDT Hospital Encounter [facility] Operating Room 1 [place] [address] Bill Graham MD [address] [facility] [address] [place] [address] 04/12/2025 7:30 AM EDT Anesthesia Event [facility] Operating Room [address] [place] [address] Lucio Szymanski MD [address] [place] [address] 04/12/2025 7:30 AM EDT - 04/12/2025 8:55 AM EDT Surgery [facility] Operating Room [address] [place] [address] Bill Graham MD [address] [facility] [address] [place] [address] (LAPAROSCOPIC PERITONEAL DIALYSIS CATHETER INSERTION) Scheduled Procedures Name Priority Associated Diagnoses Date/Ti me LAPAROSCOPY, WITH PERITONEAL DIALYSIS CATHETER INSERTION Chronic kidney disease, stage V (HCC) 04/12/2025 7:30 AM EDT documented as of this encounter Visit Diagnoses Not on filedocumented in this encounter Care Teams Training And Development Officer Relationship Specialty Start Date End Date Félix Monroe, COMPUTER FORENSIC EXAMINER [address] [facility] [address] [place] [address] PCP - General Nurse Practitioner 08/25/22 documented as of this encounter
--- OUTSIDE RECORDS SUMMARY | 2025-04-11 11:04 | XMS_ITS | Encounter Summary ---
Author Organization [employer] ([place], [place], [place], [place]) Address [address] [place] [address] Care Team Providers Care Supervisor Filtration Name Role Phone Fer Félix Singh APRN Primary Care Provider [phone] Encounter Details Date Type Department Care Team (Late st Contact Info) Description 10/19/[address] [facility] [place] [address] [place] [address] ProviderMaria Esther MD [address], [place] [address] Social History Tobacco Use Types Packs/Day Years Used Date Smoking Tobacco: Never Assessed Comments Unknown Sex and Gender Information Value Date Recorded Sex Assigned at Not on file Legal Sex Female 6:53 PM CDT Gender Identity Not on file Sexual Orientation Not on file documented as of this encounter Miscellaneous Notes * Cerner Conversion Note - Maria Esther Reyes MD - 10/19/2019 7:26 AM CDT UM Authorization Entered On: 10/19/2019 7:27 EDT Performed On: 10/19/2019 7:26 EDT by ALETHEA MEYERS Rn-Utilization Review Primary Insurance Authorization Authorization and Policy Numbers : Insurance 1 Health Plan: [place] Medicaid Policy Number: [id number] Authorization Number: Insurance Primary Name : [place] Medicaid Policy Number: [id number] Authorization Status-Primary : Admit approved Reference Number-Primary : [id number] Authorization Number-Primary : [id number] Number of Days Authorized-Primary : 8 Day(s) Authorized Service Begin Date-Primary : 10/11/2019 EDT Authorized Service End Date-Primary : 10/19/2019 EDT Authorization Comments-Primary : Per Availity, Inpt Auth approved 9 visits. NRD 10/19. Historical Authorization Comments-Primary : Comment 1: clinical faxed per cerner for c/s date 10/17 (Shantal Bernal, Rn-Utilization Review 10/18/2019 13:06) Comment 2: clinicals faxed via cerner for cont stay for dos 10/17/2019 (JESSICA GUIDO, RN-Utilization Review 10/17/2019 14:49) Comment 3: Authorized per fax 10/12/2019 @ 1825. Approved x7 days, 10/11/2019 - 10/17/2019. Next review due: 10/17/2019. (Deborah Toro, Fws Faculty Assistant 10/13/2019 07:31) Comment 4: submitted on availity for IP auth w/ clinicals attached (JESSICA GUIDO, RN-Utilization Review 10/12/2019 10:36) ALETHEA MEYERS, Rn-Utilization Review - 10/19/2019 7:26 EDT documented in this encounter Plan of Treatment Upcoming Encounters Date Type Department Care Team (Late st Contact Info) Description 04/12/2025 7:30 AM EDT Hospital Encounter [facility] Operating Room 1 [place] [phone] Bill Graham MD [address] [place] [address] [address] [place] [address] 04/12/2025 7:30 AM EDT Anesthesia Event [facility] Operating Room 1 [place] [phone] Lucio Szymanski MD [address] [place] [id number] 04/12/2025 7:30 AM EDT - 04/12/2025 8:55 AM EDT Surgery [facility] Operating Room 1 [place] [address] Bill Graham MD [address] [facility] [address] [place] [address] (LAPAROSCOPIC PERITONEAL DIALYSIS CATHETER INSERTION) Scheduled Procedures Name Priority Associated Diagnoses Date/Ti me LAPAROSCOPY, WITH PERITONEAL DIALYSIS CATHETER INSERTION Chronic kidney disease, stage V (HCC) 04/12/2025 7:30 AM EDT documented as of this encounter Visit Diagnoses Not on filedocumented in this encounter Care Teams Supervisor Filtration Relationship Specialty Start Date End Date Félix Monroe, WASH TANK TENDER [address] [facility] [address] [place] [address] PCP - General Nurse Practitioner 08/25/22 documented as of this encounter
--- OUTSIDE RECORDS SUMMARY | 2025-04-11 11:04 | XMS_ITS | Encounter Summary ---
Author Organization Healthcare Address [address] [place] [address] Care Team Providers Care Multimedia Production Assistant Name Role Phone Az David MD Primary Care Provider + [phone] Encounter Details Date Type Department Care Team (Late st Contact Info) Description 03/15/2025 Telephone [facility] Jorge A [address] [facility] [address] [place] [address] Jocelynn Patel, PharmD [address] [place] [address] Social History Tobacco Use Types [...] any time in the past 12 m [facility], were you homeless or living in a [...] drink first t mohamud in the morning (EYE-LASER MACHINE OPERATOR) to steady your nerves or to get rid of a hangover? 0 03/23/2023 CAGE Questionnaire Score 0 023 Utilities Answer Date Recorded In the past 12 months has th e [employer], gas, oil, or water company threatened to [...] as of this encounter Miscellaneous Notes * Addendum Note - Rey Anglin PharmD - 03/16/2025 4:02 PM EDTAddended by: REY ANGLIN on: 03/16/2025 04:02 PM Modules accepted: Orders * Telephone Encounter - Rey Anglin PharmD - 03/16/2025 3:52 PM EDT Patient contacted clinic to report she just got out of dialysis and is headed to the lab. Due to itbeing so late on a Wednesday, instructed patient to report to the lab on Wednesday as clinic would not get today's result prior to COB and therefore unable to address for several days. Patient agreeable. Standing PT INR order placed and faxed to [facility] lab F: [phone] and emailed to pt per pt request. Rey Anglin PharmD, ARIANA, CACP [facility] * Telephone Encounter - Rey Anglin PharmD - 03/16/2025 1:51 PM EDT No new labs at this time per lab. LM for pt asking for her to go [facility] on Monday 03/19. Rey Anglin PharmD, BCACP, CACP [facility] * Progress Notes - Jocelynn Patel PharmD - 03/15/2025 9:29 AM EDT Clinic contacted patient to remind of overdue INR check. Patient was unable to report to the lab yesterday but will go to the lab tomorrow morning and is to contact the clinic after leaving the lab. Jocelynn Patel, JackD, BCACP [facility] documented in this encounter Plan of Treatment Upcoming Encounters Date Type Department Care Team (Late st Contact Info) Description 05/24/2025 1:40 PM EST Office Visit [facility] [address] [address] Lenore Cosme MD [address] [place] [address] 08/02/2025 1:40 PM EST Office Visit [facility] [address] [facility]. [address] [address] Lenore Cosme MD [address] [place] [address] Scheduled Orders Name Type Priority Associated Diagnoses Orde r Schedule Protime-INR Lab Routine jail current use of anticoagulant therapy 52 Occurrences starting 03/16/2025 until 03/16/2026 documented as of this encounter Visit Diagnoses Diagnosis jail current use of anticoagulant therapy- Primary documented in this encounter Additional Health Concerns Assessment Noted Time PHQ-9 Depression Total Score: 5 06/15/20 24 2:55 PM EST A fall risk assessment has been complete d for the patient 03/08/2025 4:06 PM EDT A Body Mass Index follow-up plan has been documented for the patient 03/08/2025 4:53 PM EDT documented as of this encounter Care Teams Multimedia Production Assistant Relationship Specialty Start Date End Date Az David MD [address] [place] [address] PCP - General 03/22/23 documented as of this encounter
--- OUTSIDE RECORDS SUMMARY | 2025-04-11 11:04 | XMS_ITS | Encounter Summary ---
Author Organization [employer] ([place], [place], [place], [place]) Address [address] [place] [address] Care Team Providers Care Aquatics Manager Name Role Phone Félix Monroe APRN Primary Care Provider [phone] Encounter Details Date Type Department Care Team (Late st Contact Info) Description 10/18/2019 Transcribed Document [facility] [place] [address] [place] [address] ProviderMaria Esther MD [address] [place] [address] Social History Tobacco Use Types Packs/Day Years Used Date Smoking Tobacco: Never Assessed Comments Unknown Sex and Gender Information Value Date Recorded Sex Assigned at Not on file Legal Sex Female 6:53 PM CDT Gender Identity Not on file Sexual Orientation Not on file documented as of this encounter Miscellaneous Notes * Cerner Conversion Note - Maria Esther Reyes MD - 10/18/2019 1:06 PM CDT UM Authorization Entered On: 10/18/2019 13:07 EDT Performed On: 10/18/2019 13:06 EDT by Shantal Bernal Rn-Utilization Review Primary Insurance Authorization Authorization and Policy Numbers : Insurance 1 Health Plan: [place] Medicaid Policy Number: [id number] Authorization Number: Insurance Primary Name : [place] Medicaid Policy Number: [id number] Authorization Status-Primary : Awaiting callback Reference Number-Primary : [id number] Authorization Number-Primary : [id number] Number of Days Authorized-Primary : 6 Day(s) Authorized Service Begin Date-Primary : 10/11/2019 EDT Authorized Service End Date-Primary : 10/17/2019 EDT Authorization Comments-Primary : clinical faxed per cerner for c/s date 10/17 Historical Authorization Comments-Primary : Comment 1: clinicals faxed via cerner for cont stay for dos 10/17/2019 (JESSICA GUIDO, RN-Utilization Review 10/17/2019 14:49) Comment 2: Authorized per fax 10/12/2019 @ 1825. Approved x7 days, 10/11/2019 - 10/17/2019. Next review due: 10/17/2019. (Deborah Toro, Cell Efficiency Supervisor 10/13/2019 07:31) Comment 3: submitted on availity for IP auth w/ clinicals attached (JESSICA GUIDO, RN-Utilization Review 10/12/2019 10:36) Shantal Bernal, Rn-Utilization Review - 10/18/2019 13:06 EDT Electronically signed by [facility] Conversion [employer]crete [employer] Cerner at 10/28/2022 7:12 PM CDT documented in this encounter Plan of Treatment Upcoming Encounters Date Type Department Care Team (Late st Contact Info) Description 04/12/2025 7:30 AM EDT Hospital Encounter [facility] Operating Room 1 [place] [address] Bill Graham MD [address] [place] [address] 04/12/2025 7:30 AM EDT Anesthesia Event [facility] Operating Room 1 [place] [address] Lucio Szymanski MD [address] [place] [address] 04/12/2025 7:30 AM EDT - 04/12/2025 8:55 AM EDT Surgery [facility] Operating Room 1 [place] [address] Bill Graham MD [address] [place] [address] (LAPAROSCOPIC PERITONEAL DIALYSIS CATHETER INSERTION) Scheduled Procedures Name Priority Associated Diagnoses Date/Ti me LAPAROSCOPY, WITH PERITONEAL DIALYSIS CATHETER INSERTION Chronic kidney disease, stage V (HCC) 04/12/2025 7:30 AM EDT documented as of this encounter Visit Diagnoses Not on filedocumented in this encounter Care Teams Aquatics Manager Relationship Specialty Start Date End Date Félix Monroe, CREATIVE GURU [address] [facility] [address] [place] [address] PCP - General Nurse Practitioner 08/25/22 documented as of this encounter
--- OUTSIDE RECORDS SUMMARY | 2025-04-11 11:04 | XMS_ITS | Encounter Summary ---
Author Organization [employer] ([place], [place], [place], [place]) Address [address] [address] Care Team Providers Care Register Of Wills Name Role Phone Félix Monroe APRN Primary Care Provider [phone] Encounter Details Date Type Department Care Team (Late st Contact Info) Description 10/15/2019 Transcribed Document [facility] [address] [place] [address] ProviderMaria Esther MD [address] [place] [address] Social History Tobacco Use Types Packs/Day Years Used Date Smoking Tobacco: Never Assessed Comments Unknown Sex and Gender Information Value Date Recorded Sex Assigned at Not on file Legal Sex Female 6:53 PM CDT Gender Identity Not on file Sexual Orientation Not on file documented as of this encounter Miscellaneous Notes * Cerner Conversion Note - Maria Esther ProviderMD - 10/15/2019 5:00 PM CDT Chart Check - Review Order Profile Entered On: 10/15/2019 17:22 EDT Performed On: 10/15/2019 17:00 EDT by Zaira García RN Chart Check Power[employer]ans Initiated/Discontinued as Appropriate : Yes All Active Orders Reviewed : Yes Zaira García RN - 10/15/2019 17:22 EDT documented in this encounter Plan of Treatment Upcoming Encounters Date Type Department Care Team (Late st Contact Info) Description 04/12/2025 7:30 AM EDT Hospital Encounter [facility] Operating Room 1 [place] [address] Bill Graham MD [address] [facility] [address] [place] [address] 04/12/2025 7:30 AM EDT Anesthesia Event [facility] Operating Room 1 [place] [address] Lucio Szymanski MD [address] [place] [address] 04/12/2025 7:30 AM EDT - 04/12/2025 8:55 AM EDT Surgery [facility] Operating Room 1 [place] [address] Bill Graham MD [address] [facility] [address] [place] [address] (LAPAROSCOPIC PERITONEAL DIALYSIS CATHETER INSERTION) Scheduled Procedures Name Priority Associated Diagnoses Date/Ti me LAPAROSCOPY, WITH PERITONEAL DIALYSIS CATHETER INSERTION Chronic kidney disease, stage V (HCC) 04/12/2025 7:30 AM EDT documented as of this encounter Visit Diagnoses Not on filedocumented in this encounter Care Teams Register Of Wills Relationship Specialty Start Date End Date Félix Monroe, FLOORS BUFFER [address] [facility] [address] [place] [address] PCP - General Nurse Practitioner 08/25/22 documented as of this encounter
--- OUTSIDE RECORDS SUMMARY | 2025-04-11 11:04 | XMS_ITS | Encounter Summary ---
Author Organization Healthcare Address [address] 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 [address] Lenore Cosme MD [address] [place] [address] 08/02/2025 1:40 PM EST Office [facility] [address] [address] Lenore Cosme MD [address] [place] [address] documented as of this encounter [...] documented as of this encounter Care Teams Copy Camera Operator Relationship Specialty Start Date End Date Az David MD [address] [place] [address] PCP - General 03/22/23 documented as of this encounter
--- OUTSIDE RECORDS SUMMARY | 2025-04-11 11:04 | XMS_ITS | Encounter Summary ---
Author Organization [employer] ([place], [place], [place], [place]) Address [address] [address] Care Team Providers Care Head Of Precision Targeting Name Role Phone Monroe Félix Francisco RODRIGUEZ Primary Care Provider Encounter Details Date Type Department Care Team (Late st Contact Info) Description 10/18/2019 Transcribed Document [facility] Medicine [facility] [place] [address] ProviderMaria Esther MD [address] [place] [address] Social History Tobacco Use Types Packs/Day Years Used Date Smoking Tobacco: Never Assessed Comments Unknown Sex and Gender Information Value Date Recorded Sex Assigned at Not on file Legal Sex Female 6:53 PM CDT Gender Identity Not on file Sexual Orientation Not on file documented as of this encounter Miscellaneous Notes * Cerner Conversion Note - Maria Esther Reyes MD - 10/18/2019 10:41 AM CDT Patient: CORRIE SMITH Age: 49 years Sex: Female : 1970 Associated Diagnoses: None Author: SHAWANDA LUIS MD-NEP Basic Information Patient had a rough night, complains of pain at the incision line, denies shortness of air Health Status Allergies: Allergic Reactions (Selected) Severity [...] initial episode of care / SNOMED CT 4276601114 / Confirmed At risk for sleep apnea / IMO 16663641 / Confirmed CHF, acute on chronic / SNOMED CT 61964484 / Confirmed Class 3 Systolic GERD - Gastro-esophageal reflux disease / SNOMED CT 9601192852 / Confirmed H/O: TIA / SNOMED CT 752117928 / Confirmed History of laparoscopic adjustable gastric banding / SNOMED CT 6333076889 / Confirmed History of obstructive sleep apnea / IMO 74877218 / Confirmed HTN - Hypertension / SNOMED CT 5676859886 / Confirmed Mitral regurgitation / SNOMED CT 38445896 / Confirmed Prolonged QT interval / SNOMED CT 240819214 / Confirmed 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 / Confirmed Pulmonary edema / SNOMED CT 64824331 / Confirmed Restless legs syndrome / SNOMED CT 01691719 / Confirmed RF - Renal failure, Stage 4 / SNOMED CT 5232403361 / Confirmed Sleep apnea-before weight loss surgery / SNOMED CT 152616908 / Confirmed, Active Problems (16) At risk [...] Past Medical History: Active HTN - Hypertension (9605718539) Family History: No family history items have [...] 24 hrs) Last Charted Minimum Maximum Temp 97.3 (OCT 17 06:19) 97.3 (OCT 17 06:19) 97.7 (OCT 16 22:12) Apical HR 89 (OCT 17 08:03) 89 (OCT 17 08:03) 89 (OCT 17 08:03) Mon HR 89 (OCT 17:19) 88 (OCT 16 22:12) 89 (OCT 16 11:00) Resp Rate 18 (OCT 17 06:00) L 0 (OCT 16 18:00) H 54 (OCT 16 20:00) SBP 128 (OCT 17 06:19) L 87 (OCT 16 11:30) H 144 (OCT 17 00:30) DBP 89 (OCT 17 06:19) L 52 (OCT 16 11:30) H 99 (OCT 17 00:30) MAP 103 (OCT 17 06:19) 64 (OCT 16 11:30) 113 (OCT 17 00:30) SpO2 97 (OCT 17 09:07) 94 (OCT 16 12:00) 100 (OCT 17 06:19) General: Alert and [...] (OCT 15) L 125 (OCT 15) Na L 133 (OCT 17) 138 (OCT 16) 140 (OCT 15) 140 (OCT 15) K 4.1 (OCT 17) 4.4 (OCT 16) 3.9 (OCT 16) 3.6 (OCT 15) Cl 102 (OCT 08) 107 (OCT 07) 112 (OCT 06) 108 (OCT 06) CO2 L 19 (OCT 17) 21 (OCT 07) L 20 (OCT 15) 23 (OCT 06) BUN H 36 (OCT 08) H 31 (OCT 07) H 27 (OCT 06) H 30 (OCT 06) Cr H 3.90 (OCT 08) H 3.40 (OCT 07) H 3.61 (OCT 06) H 3.80 (OCT 06) Glu R H 122 (OCT 08) H 119 (APR 07) 106 (OCT 15) 96 (OCT 15) Ca [...] [facility] Operating Room 1 [place] [address] Bill Graham MD [address] [facility] [address] [place] [address] 04/12/2025 7:30 AM EDT Anesthesia Event [facility] Operating Room 1 [place] [address] Lucio Szymanski MD [address] [place] [address] 04/12/2025 7:30 AM EDT - 04/12/2025 8:55 AM EDT Surgery [facility] Operating Room 1 [place] [address] Bill Graham MD [address] [facility] [address] [place] [address] (LAPAROSCOPIC PERITONEAL DIALYSIS CATHETER INSERTION) Scheduled Procedures Name Priority Associated Diagnoses Date/Ti me LAPAROSCOPY, WITH PERITONEAL DIALYSIS CATHETER INSERTION Chronic kidney disease, stage V (HCC) 04/12/2025 7:30 AM EDT documented as of this encounter Visit Diagnoses Not on filedocumented in this encounter Care Teams Head Of Precision Targeting Relationship Specialty Start Date End Date Félix Monroe, SHELF FILLER [address] [facility] [address] [place] [address] PCP - General Nurse Practitioner 08/25/22 documented as of this encounter
--- OUTSIDE RECORDS SUMMARY | 2025-04-11 11:04 | XMS_ITS | Encounter Summary ---
Author Organization Healthcare Address [address] [place] [address] Care Team Providers Care Lining Repairer Name Role Phone Az David MD Primary Care Provider + [phone] Encounter Details Date Type Department Care Team (Latest Contact Info) Description 03/08/2025 Travel Social History Tobacco Use Types Packs/Day [...] any time in the past 12 m [facility], were you homeless or living in a jail (including now)? No 02/26/2025 CAGE ASSESSMENT Answer [...] drink first t mohamud in the morning (EYE-FIELD FOREMAN) to steady your nerves or to get [...] Not difficult at all 03/08/2025 4:06 PM Zaira Barrett CNA documented as of this encounter Plan of Treatment Upcoming Encounters Date Type Department Care Team (Late st Contact Info) Description 05/24/2025 1:40 PM EST Office Visit [facility] [address] [place] [address] Lenore Cosme MD [address] [place] [address] 08/02/2025 1:40 PM EST Office Visit [facility] [place] Jorge A [address] [place] [address] Lenore Cosme MD [address] [place] [address] documented as of this encounter [...] documented as of this encounter Care Teams Lining Repairer Relationship Specialty Start Date End Date Az David MD [address] [place] [address] PCP - General 03/22/23 documented as of this encounter
--- OUTSIDE RECORDS SUMMARY | 2025-04-11 11:04 | XMS_ITS | Encounter Summary ---
Author Organization [email or web address] ([place], [place], [place], [place]) Address [address] [place] [address] Care Team Providers Care Tower Director Name Role Phone Fer Félix Francisco RODRIGUEZ Primary Care Provider [phone] Encounter Details Date Type Department Care Team (Late st Contact Info) Description 10/19/2019 Transcribed Document [facility] Family Medicine [facility] [address] ProviderMaria Esther MD [address] [place] [address] Social History Tobacco Use Types Packs/Day Years Used Date Smoking Tobacco: Never Assessed Comments Unknown Sex and Gender Information Value Date Recorded Sex Assigned at Not on file Legal Sex Female 6:53 PM CDT Gender Identity Not on file Sexual Orientation Not on file documented as of this encounter Miscellaneous Notes * Cerner Conversion Note - Maria Esther Reyes MD - 10/19/2019 3:00 PM CDT On Going Discharge Planning Entered On: 10/19/2019 15:02 EDT Performed On: 10/19/2019 15:00 EDT by ANA MARTINEZ RN-Woodworking Machine OperatorMilitary Logistics Specialist Progress Note Discharge Arrangements : Patient Post-Acute Information Patient Name: CORRIE SMITH Gender: Female : [birth year] Age: 49 Years No Post-Acute Placement(s) Listed No Post-Acute Service(s) Listed No [place] Referral(s) Listed Barriers to Discharge Identified : Clinical Condition of Patient Barriers to Discharge Unresolved : Clinical Condition of Patient Patient Offered Choice/Affiliations Explained : No Is the Patient Meeting Medical Necessity : Yes Physician Agreeable to Move Forward with D/C Plan? : Yes Did you Attend Multidisciplinary Rounds? : Yes ANA MARTINEZ, RN-Woodworking Machine Operator - 10/19/2019 15:00 EDT Narrative Progress Note Narrative Progress Note : Patient is a high readmission risk. ELOS: 6 days HD#8 POD#2 Redo MVR; Telemetry AV Paced, O2 sat 97% on RA, MTs out, mid ERWIN out. Labs: Cr 3.7, INR 4.7. Ambulated 425 feet independently. DCP: Anticipate patient will discharge home with family. Cardiac Rehab set up at [facility]. CM will continue to follow for discharge planning needs. Historical Progress Note : Patient is a high readmission risk. ELOS: 6 days HD#7 POD#2 Redo MVR; Telemetry AV Paced, O2 sat 97% on RA, MTs out, mid ERWIN out. Labs: Cr 3.9, INR 1.7. PT/OT consult ordered. DCP: Anticipate patient will discharge home with family. Cardiac Rehab set up at [facility]. CM will continue to follow for discharge planning needs. ANA MARTINEZ, RN-Woodworking Machine Operator - 10/18/19 17:49:58 POD #1 MVR redo. Paced and 90. Daily PT/INR. Plans of transferring to . CM to cont following REINA JOHN RN-Care Management - 10/17/19 13:03:51 Day 5 - Pt to OR today for MVR redo surgery requiring hemodynamic monitoring lines; DCP pending progress; anticipate home without needs; will review for OP Cardiac Rehab. ZAINA GUERRERO Rn-Woodworking Machine Operator - 10/16/19 14:18:55 Cm received information from Rom[employer]. ??m recieved letter and called for verification and spoke to radha. romaine allows these home health companies : [facility], [employer], and [facility]. RAKESH PARRA RN-Woodworking Machine Operator - 10/13/19 10:19:59 Cm received information from [employer]. Cm recieved letter and called for verification and spoke to radha. romaine allows these home health companies : [employer], and [employer]. Patient is normally independent . patient still denies need for hh and dme. cm will arrange for any needs at discharge. DCP: home vs hh RAKESH PARRA, RN-Woodworking Machine Operator - 10/13/19 10:24:38 ANA MARTINEZ RN-Woodworking Machine Operator - 10/19/2019 15:00 EDT Electronically signed by [facility] Conversion Gas Generator Operator Cerner at 10/28/2022 7:04 PM CDT documented in this encounter Plan of Treatment Upcoming Encounters Date Type Department Care Team (Late st Contact Info) Description 04/12/2025 7:30 AM EDT Hospital Encounter [facility] Operating Room [address] [place] [address] Bill Graham MD [address] [place] [address] [address] 04/12/2025 7:30 AM EDT Anesthesia Event [facility] Operating Room [address] [place] [address] Lucio Szymanski MD [address] [place] [address] 04/12/2025 7:30 AM EDT - 04/12/2025 8:55 AM EDT Surgery [facility] Operating Room [address] [place] [address] Bill Graham MD [address] [place] [address] [address] (LAPAROSCOPIC PERITONEAL DIALYSIS CATHETER INSERTION) Scheduled Procedures Name Priority Associated Diagnoses Date/Ti me LAPAROSCOPY, WITH PERITONEAL DIALYSIS CATHETER INSERTION Chronic kidney disease, stage V (HCC) 04/12/2025 7:30 AM EDT documented as of this encounter Visit Diagnoses Not on filedocumented in this encounter Care Teams Tower Director Relationship Specialty Start Date End Date Félix Monroe, CASK MAKER [address] [facility] [address] [place] [address] PCP - General Nurse Practitioner 08/25/22 documented as of this encounter
--- OUTSIDE RECORDS SUMMARY | 2025-04-11 11:04 | XMS_ITS | Encounter Summary ---
Author Organization [employer] ([place], [place], [place], [place]) Address [address] [address] Care Team Providers Care Cemetery Keeper Name Role Phone Fer Félix Singh APRN Primary Care Provider [phone] Encounter Details Date Type Department Care Team (Late st Contact Info) Description 10/16/2019 Transcribed Document [facility] Family Medicine [facility] [address] ProviderMaria Esther MD [address] [place], [place] [address] Social History Tobacco Use Types Packs/Day Years Used Date Smoking Tobacco: Never Assessed Comments Unknown Sex and Gender Information Value Date Recorded Sex Assigned at Not on file Legal Sex Female 6:53 PM CDT Gender Identity Not on file Sexual Orientation Not on file documented as of this encounter Miscellaneous Notes * Cerner Conversion Note - Maria Esther Reyes MD - 10/16/2019 10:52 AM CDT Patient: CORRIE SMITH Age: 49 Years Sex: Female : 1970 Renal - brief note At the time of morning nephrology rounds, the patient is not available due to her valvular heart surgery. I will reevaluate the patient again later today. Review laboratory data shows that serum creatinine has been relatively stable but poor. There was no metabolic urgency to consider dialysis. We will check her labs later this afternoon and I will reevaluate the patient. Mendoza Gallardo M.D. Nephrology Partner with , Dr. Pantoja and Dr. Lopez Note dictated with [employer] voice recognition system documented in this encounter Plan of Treatment Upcoming Encounters Date Type Department Care Team (Late st Contact Info) Description 04/12/2025 7:30 AM EDT Hospital Encounter [facility] Operating Room [address] [place] [address] [place] [address] [place] [address] [address] [place] [address] 04/12/2025 7:30 AM EDT Anesthesia Event [facility] Operating Room [address] [place] [address] Lucio Szymanski MD [address] [place] [address] 04/12/2025 7:30 AM EDT - 04/12/2025 8:55 AM EDT Surgery [facility] Operating Room [address] [place] [address] [place] [address] [place] [address] (LAPAROSCOPIC PERITONEAL DIALYSIS CATHETER INSERTION) Scheduled Procedures Name Priority Associated Diagnoses Date/Ti me LAPAROSCOPY, WITH PERITONEAL DIALYSIS CATHETER INSERTION Chronic kidney disease, stage V (HCC) 04/12/2025 7:30 AM EDT documented as of this encounter Visit Diagnoses Not on filedocumented in this encounter Care Teams Cemetery Keeper Relationship Specialty Start Date End Date Félix Monroe, BLOCKING MACHINE OPERATOR SECOND [address] [facility] [address] [place] [address] PCP - General Nurse Practitioner 08/25/22 documented as of this encounter
--- OUTSIDE RECORDS SUMMARY | 2025-04-11 11:04 | XMS_ITS | Encounter Summary ---
Author Organization [employer] ([place], [place], [place], [place]) Address [address] [address] Care Team Providers Care Switch Engineer Name Role Phone Félix Monroe MICHAEL Primary Care Provider [phone] Encounter Details Date Type Department Care Team (Late st Contact Info) Description 10/17/2019 Transcribed Document [facility] [place] Medicine [address] [place] [address] ProviderMaria Esther MD [address] [place], [place] [address] Social History Tobacco Use Types Packs/Day Years Used Date Smoking Tobacco: Never Assessed Comments Unknown Sex and Gender Information Value Date Recorded Sex Assigned at Not on file Legal Sex Female 6:53 PM CDT Gender Identity Not on file Sexual Orientation Not on file documented as of this encounter Miscellaneous Notes * Cerner Conversion Note - Maria Esther ProviderMD - 10/17/2019 2:00 AM CDT Technical Programs Manager Details Entered On: 10/17/2019 6:05 EDT Performed On: 10/17/2019 2:00 EDT by Nayla Rivera, RN Order Details Transport Mode Order Detail : Wheelchair Isolation Precautions Order Detail : Standard Precautions Order Detail : 0 IV Order Detail : 1 Nurse Collect Order Detail : 1 Lift/Transfer : Independent Central Line Order Detail : Yes Room Service : Needs Assistance Arterial Line : Yes Nayla Rivera, RN - 10/17/2019 6:05 EDT documented in this encounter Plan of Treatment Upcoming Encounters Date Type Department Care Team (Late st Contact Info) Description 04/12/2025 7:30 AM EDT Hospital Encounter [facility] Operating Room [address] [place] [address] Bill Graham MD [address] [facility] [address] [place] [address] 04/12/2025 7:30 AM EDT Anesthesia Event [facility] Operating Room [address] [place] [address] Lucio Szymanski MD [address] [place] [address] 04/12/2025 7:30 AM EDT - 04/12/2025 8:55 AM EDT Surgery [facility] Operating Room [address] [place] [address] [place] [address] [place] [address] [place] [address] (LAPAROSCOPIC PERITONEAL DIALYSIS CATHETER INSERTION) Scheduled Procedures Name Priority Associated Diagnoses Date/Ti me LAPAROSCOPY, WITH PERITONEAL DIALYSIS CATHETER INSERTION Chronic kidney disease, stage V (HCC) 04/12/2025 7:30 AM EDT documented as of this encounter Visit Diagnoses Not on filedocumented in this encounter Care Teams Switch Engineer Relationship Specialty Start Date End Date Félix Monroe, OUTSIDE SALES REPRESENTATIVE [address] [facility] [address] [place] [address] PCP - General Nurse Practitioner 08/25/22 documented as of this encounter
--- OUTSIDE RECORDS SUMMARY | 2025-04-11 11:05 | XMS_ITS | Encounter Summary ---
Author Organization [email or web address] ([place], [place], [place], [place]) Address [address] [address] Care Team Providers Care Employee Relations Specialist Name Role Phone Félix Monroe APRN Primary Care Provider [phone] Encounter Details Date Type Department Care Team (Late st Contact Info) Description 07/25/2019 Transcribed Document [facility] [place] [address] [place] [address] ProviderMaria Esther MD [address] [place] [address] Social History Tobacco Use Types Packs/Day Years Used Date Smoking Tobacco: Never Assessed Comments Unknown Sex and Gender Information Value Date Recorded Sex Assigned at Not on file Legal Sex Female 6:53 PM CDT Gender Identity Not on file Sexual Orientation Not on file documented as of this encounter Miscellaneous Notes * Cerner Conversion Note - Historical ProviderMD - 07/25/2019 5:00 AM FLARE STITCHER Chart Check - Review Order Profile Entered On: 07/25/2019 5:26 EST Performed On: 07/25/2019 5:00 EST by QUINCY LOVE, RN Chart Check Powerplans Initiated/Discontinued as Appropriate : Yes All Active Orders Reviewed : Yes QUINCY LOVE RN - 07/25/2019 5:26 EST documented in this encounter Plan of Treatment Upcoming Encounters Date Type Department Care Team (Late st Contact Info) Description 04/12/2025 7:30 AM EDT Hospital Encounter [facility] Operating Room 1 [place] [address] Bill Graham MD [address] [facility] [address] [place] [address] 04/12/2025 7:30 AM EDT Anesthesia Event [facility] Operating Room 1 [place] [address] Lucio Szymanski MD [address] [place] [address] 04/12/2025 7:30 AM EDT - 04/12/2025 8:55 AM EDT Surgery [facility] Operating Room 1 [place] [address] Bill Graham MD [address] [facility] [address] [place] [address] (LAPAROSCOPIC PERITONEAL DIALYSIS CATHETER INSERTION) Scheduled Procedures Name Priority Associated Diagnoses Date/Ti me LAPAROSCOPY, WITH PERITONEAL DIALYSIS CATHETER INSERTION Chronic kidney disease, stage V (HCC) 04/12/2025 7:30 AM EDT documented as of this encounter Visit Diagnoses Not on filedocumented in this encounter Care Teams Employee Relations Specialist Relationship Specialty Start Date End Date Félix Monroe, NET DEVELOPER CONSULTANT [address] [facility] [address] [place] [address] PCP - General Nurse Practitioner 08/25/22 documented as of this encounter
--- OUTSIDE RECORDS SUMMARY | 2025-04-11 11:05 | XMS_ITS | Encounter Summary ---
Author Organization [employer] ([place], [place], [place], [place]) Address [address] [place] [address] Care Team Providers Care Diamond Picker Name Role Phone MonroeFélix APRN Primary Care Provider [phone] Encounter Details Date Type Department Care Team (Late st Contact Info) Description 07/25/2019 Transcribed Document [facility] [address] [place] [address] ProviderMaria Esther MD [address] [place], [place] [address] Social History Tobacco Use Types Packs/Day Years Used Date Smoking Tobacco: Never Assessed Comments Unknown Sex and Gender Information Value Date Recorded Sex Assigned at Not on file Legal Sex Female 6:53 PM CDT Gender Identity Not on file Sexual Orientation Not on file documented as of this encounter Miscellaneous Notes * Cerner Conversion Note - Maria Esther ProviderMD - 07/25/2019 1:31 PM ZOO DIRECTOR Patient: CORRIE SMITH [facility]: [id number] Age: 49 Years Sex: Female : 1970 Subjective No new complaints. Anxious about surgery. Not dyspneic. Vital Signs T: 36.7 ??C TMIN: 36.6 ??C TMAX: 36.7 ??C HR: 73(Monitored) RR: 17 BP: 146/95 SpO2: 93% HT: 167.64 cm WT: 63.75 kg BMI: 22.68 Oxygen Settings (Last) Oxygen Therapy Mode: Room air (07/25/19 06:39:00) Oxygen Flow Rate: 2 Liter/Min (07/21/19 06:15:00) Intake & Output Totals Last 24 Hours (7a-7a) Input Total: 2161.8 mL Output Total: 0 mL Balance: 2161.8 mL Physical Exam General: no acute distress Neurologic: Awake, alert, and oriented X3, Moves all extremities. Eye: Pupils reactive and equal bilaterally. OP clear. Neck: No carotid bruits, no JVD, no lymphadenopathy Lungs: Clear to auscultation bilaterally. No wheezes. Heart: Regular rate and rhythm. 2/6SM Abdomen: Soft, non-tender, non-distended, normal bowel sounds, no masses Extremities: No edema. Full range of motion where tested. Skin: No rashes or lesions Assessment/Plan 1. Severe MR Planning valve surgery on Wednesday. 2. NSTEMI Stable 3. Acute Diastolic Congestive Heart Failure POA LVEF = 50 % Was not placed on ACEI or ARB due to renal failure Volume stable 4. Acute pulmonary edema, 2/2 severe MR 5, Acute kidney injury, likely prerenal. Unknown baseline Cr. Not improved. Plans per Renal. 6. Anemia, - normocytic, normochromic 7. Thrombocytopenia - Plt 146, continue to monitor while on antiplatelets and heparin gtt 8. Prolonged QTc - avoid QT-prolonging medications 9. Tobacco abuse, cigarettes - tobacco cessation counseling - placed on nicotine patch VTE Prophylaxis - Medical Sequential Compression Device Start: 07/20/19 20:54:00 EST, Bilateral, Length: Knee High, While patient is in bed, Continuous Order (MIKAYLA THOMAS) Medications amLODIPine, 10 mg= 1 Tab, Oral, Daily aspirin, 81 mg= 1 Tab, Oral, Daily Ativan, 0.5 mg= 1 Tab, Oral, Q6H, PRN cloNIDine, 0.1 mg= 1 Tab, Oral, Q3H, [...] Protonix, 40 mg= 1 Tab, Oral, Daily Requip, 1 mg= 1 Tab, Oral, At Bedtime Tylenol, 650 mg= 2 Tab, Oral, Q4H, PRN Lab Results Test Name Test Result Date/Time Sodium Level 140 mmol/L 07/25/2019 04:12 EST Potassium Level 3.7 mmol/L 07/25/2019 04:12 EST Chloride Level 108 mmol/L 07/25/2019 04:12 EST Carbon Dioxide Level 27 mmol/L 07/25/2019 04:12 EST Anion Gap 9 07/25/2019 04:12 EST Glucose Level 98 mg/dL 07/25/2019 04:12 EST Blood Urea Nitrogen 25 mg/dL (High) 07/25/2019 04:12 EST Creatinine Level 2.50 mg/dL (High) 07/25/2019 04:12 EST eGFR 25 mL/min/1.73m2 (Low) 07/25/2019 04:12 EST eGFR NonAfrican 20 mL/min/1.73m2 (Low) 07/25/2019 04:12 EST Bun/Creatinine 10.0 07/25/2019 04:12 EST Calcium Level 8.8 mg/dL 07/25/2019 04:12 EST WBC 7.2 K/uL 07/25/2019 04:12 EST RBC 3.58 Million/uL (Low) 07/25/2019 04:12 EST Hgb 10.8 g/dL (Low) 07/25/2019 04:12 EST Hct 33.0 % (Low) 07/25/2019 04:12 EST MCV 92.2 fL 07/25/2019 04:12 EST MCH 30.2 pg 07/25/2019 04:12 EST MCHC 32.7 Gram/dL 07/25/2019 04:12 EST Platelet Count 146 K/uL (Low) 07/25/2019 04:12 EST MPV 13.6 fL (High) 07/25/2019 04:12 EST RDW 13.0 % 07/25/2019 04:12 EST Slide Review No 07/25/2019 04:12 EST PTT Heparin 54.2 Second(s) 07/25/2019 04:12 EST Electronically signed by [facility], [facility] Conversion Personal Insurance Advisor Cerner at 10/28/2022 7:20 PM CDT documented in this encounter Plan of Treatment Upcoming Encounters Date Type Department Care Team (Late st Contact Info) Description 04/12/2025 7:30 AM EDT Hospital Encounter [facility] Operating Room [address] [place] [address] Bill Graham MD [address] [facility] [address] [place] [address] 04/12/2025 7:30 AM EDT Anesthesia Event [facility] Operating Room [address] [place] [address] Lucio Szymanski MD [address] [place] [address] 04/12/2025 7:30 AM EDT - 04/12/2025 8:55 AM EDT Surgery [facility] Operating Room [address] [place] [address] [place] [address] [place] [address] [address] [address] (LAPAROSCOPIC PERITONEAL DIALYSIS CATHETER INSERTION) Scheduled Procedures Name Priority Associated Diagnoses Date/Ti me LAPAROSCOPY, WITH PERITONEAL DIALYSIS CATHETER INSERTION Chronic kidney disease, stage V (HCC) 04/12/2025 7:30 AM EDT documented as of this encounter Visit Diagnoses Not on filedocumented in this encounter Care Teams Diamond Picker Relationship Specialty Start Date End Date Félix Monroe, DIRECTOR LEARNING AND DEVELOPMENT [address] [facility] [address] [place] [address] PCP - General Nurse Practitioner 08/25/22 documented as of this encounter
--- OUTSIDE RECORDS SUMMARY | 2025-04-11 11:05 | XMS_ITS | Encounter Summary ---
Author Organization [employer] ([place], [place], [place], [place]) Address [address] [address] Care Team Providers Care Transportation Planning Engineer Name Role Phone Félix Monroe APRN Primary Care Provider [phone] Encounter Details Date Type Department Care Team (Late st Contact Info) Description 10/18/2019 Transcribed Document [facility] Family Medicine [address] [place] [address] ProviderMaria Esther MD [address], [place] [id number] Social History Tobacco Use Types Packs/Day Years Used Date Smoking Tobacco: Never Assessed Comments Unknown Sex and Gender Information Value Date Recorded Sex Assigned at Not on file Legal Sex Female 6:53 PM CDT Gender Identity Not on file Sexual Orientation Not on file documented as of this encounter Miscellaneous Notes * Cerner Conversion Note - Maria Esther ProviderMD - 10/18/2019 5:28 PM CDT Evaluation, Physical Therapy Entered On: 10/19/2019 11:27 EDT Performed On: 10/19/2019 9:43 EDT by WOODROW SÁNCHEZ, KEYANA General Information, PT Visit Type, PT : Initial evaluation Patient Orders : Order Date Order Ordering 10/18/2019 17:28 Consult to Physical Therapy Ordered By: FELIZ WILSON MD-CAT Active [...] 10/12/2019 12:00 Transient cerebral ischemic attack, unspecified Therapy Diagnosis, PT : PT eval requested after mitral value repair Onset of Problem, PT : 10/11/2019 EDT Admission Date : 10/11/2019 15:38 Personal Devices : Personal Devices Dentures, upper, Dentures, lower Assistive Devices : Assistive Devices No Devices Recorded Isolation Maintained : Contact General Information Comment, PT : Dx: chronic renal failure PMH: CHF, COPD, TIA, HTN, Sx: median sternotomy, mitral valve repair (10/15) WOODROW SÁNCHEZ, PT - 10/19/2019 11:24 EDT General Status Patient Received Status : Supine in bed Treatment Start Time : 10/19/2019 9:34 EDT Patient Left Status : Supine in bed, Communication board completed, All needs met and within reach RN/PCT Informed Comment : Zaira Treatment End Time : 10/19/2019 9:43 EDT Treatment Time : 9 Minute(s) WOODROW SÁNCHEZ PT - 10/19/2019 11:24 EDT History and Environment Living Situation, Therapy : Home Patient Lives With : Spouse Persons Providing Information : Patient Home Equipment Therapy, PT : None Home Setup : One story Ramp : Yes WOODROW SÁNCHEZ PT - 10/19/2019 11:24 EDT Prior Level of Function PT GRID Prior LOF Ambulation, Household : Independent Prior LOF Ambulation, Community : Independent Prior LOF Bed Mobility : Independent Prior LOF Toileting : Independent Prior LOF Transfer : Independent WOODROW SÁNCHEZ PT - 10/19/2019 11:24 EDT Functional Mobility Mobility Grid Supine to Sit : Rehab Complete independence Sit to Stand : Rehab Complete independence Bed to Chair : Rehab Complete independence Stand to Sit : Rehab Complete independence Sit to Supine : Rehab Complete independence WOODROW SÁNCHEZ PT - 10/19/2019 11:24 EDT Gait Training/Assessment, PT Gait Assistance Level : Independent, complete Walking Distance : 425' Ambulatory Devices : None, Gait belt NANETTE SÁNCHEZLYNN, PT - 10/19/2019 11:24 EDT Cognition Assessment, PT Orientation : Oriented x 4 GONZALO, WOODROW, PT - 10/19/2019 11:24 EDT Edu Topics Physical Therapy Education Grid Role of Physical Therapy : Verbalizes understanding GONZALOCARLOSWOODROW, PT - 10/19/2019 11:24 EDT Indication Assesessment, PT Physical Therapy Indicated : No Physical Therapy Not Indicated : Independent, complete, No skilled services ind., Prior level of function GONZALO, WOODROW, PT - 10/19/2019 11:24 EDT Plan of Care, PT PT Tx Plan/Goals Established w Patient : Yes WOODROW SÁNCHEZ PT - 10/19/2019 11:24 EDT Treatment Note Subjective Comment : Patient agreed to PTx. RN ok'd PTx. Additional Objective Information : Patient transfered to restroom with independence and safety awareness. Assessment : Patient demonstrates independence and safety with functional mobility, transfers and gait. Patient able to ambulate without LOB demonstrating sufficient dynamic balance. Patient also exhibits adequate activity tolerance. Patient does not indicate need for skilled PT services at this time. PT will sign off. Plan for Treatment : Discharge patient from PT. Eval only GONZALOCARLOSWOODROW, PT - 10/19/2019 11:24 EDT Pain Assessment Pain Scaled Used : 0-10 Pain scale Pain Score Pre-Intervention : 0 WOODROW SÁNCHEZ PT - 10/19/2019 11:24 EDT Image 1 - Images currently included in the form version of this document have not been included in the text rendition version of the form. Anticipated Discharge Needs, OT/PT Anticipated Discharge to : Home, with family care Recommend Continued Therapy at Discharge : No WOODROW SÁNCHEZ PT - 10/19/2019 11:24 EDT [place] PT Charges PT Eval Moderate Complexity : 1 WOODROW SÁNCHEZ PT - 10/19/2019 11:24 EDT documented in this encounter Plan of Treatment Upcoming Encounters Date Type Department Care Team (Late st Contact Info) Description 04/12/2025 7:30 AM EDT Hospital Encounter [facility] Operating Room 1 [place] [address] [place] [address] [place] [address] [address] [place] [address] 04/12/2025 7:30 AM EDT Anesthesia Event [facility] Operating Room 1 [place] [address] Lucio Szymanski MD [address] [place] [address] 04/12/2025 7:30 AM EDT - 04/12/2025 8:55 AM EDT Surgery [facility] Operating Room 1 [place] [address] [place] [address] [place] [address] [address] [place] [address] (LAPAROSCOPIC PERITONEAL DIALYSIS CATHETER INSERTION) Scheduled Procedures Name Priority Associated Diagnoses Date/Ti me LAPAROSCOPY, WITH PERITONEAL DIALYSIS CATHETER INSERTION Chronic kidney disease, stage V (HCC) 04/12/2025 7:30 AM EDT documented as of this encounter Visit Diagnoses Not on filedocumented in this encounter Care Teams Transportation Planning Engineer Relationship Specialty Start Date End Date Félix Monroe, ENGINEERING TECHNICIAN [address] [facility] [address] [place] [address] PCP - General Nurse Practitioner 08/25/22 documented as of this encounter
--- OUTSIDE RECORDS SUMMARY | 2025-04-11 11:05 | XMS_ITS | Encounter Summary ---
Author Organization [employer] ([place], [place], [place], [place]) Address [address] [address] Care Team Providers Care Chief Drafter Name Role Phone Félix Monroe MICHAEL Primary Care Provider [phone] Encounter Details Date Type Department Care Team (Late st Contact Info) Description 07/25/2019 Transcribed Document [facility] [place] [address] [place] [address] ProviderMaria Esther MD [address] [place] [address] Social History Tobacco Use Types Packs/Day Years Used Date Smoking Tobacco: Never Assessed Comments Unknown Sex and Gender Information Value Date Recorded Sex Assigned at Not on file Legal Sex Female 6:53 PM CDT Gender Identity Not on file Sexual Orientation Not on file documented as of this encounter Miscellaneous Notes * Cerner Conversion Note - Maria Esther ProviderMD - 07/25/2019 2:00 AM CHUCKING AND BORING MACHINE OPERATOR Drug Room Operator Details Entered On: 07/25/2019 3:58 EST Performed On: 07/25/2019 2:00 EST by QUINCY LOVE, RN Order Details Transport Mode Order Detail : Ambulatory Isolation Precautions Order Detail : Standard Precautions Order Detail : 0 IV Order Detail : 1 Oxygen Order Detail : 0 Nurse Collect Order Detail : 0 Lift/Transfer : Independent Central Line Order Detail : No Room Service : Appropriate Arterial Line : No QUINCY LOVE, RN - 07/25/2019 3:57 EST Electronically signed by Nir [facility] Conversion Meteorology Faculty Member Cerner at 10/28/2022 6:59 PM CDT documented in this encounter Plan of Treatment Upcoming Encounters Date Type Department Care Team (Late st Contact Info) Description 04/12/2025 7:30 AM EDT Hospital Encounter [facility] Operating Room 1 [place] [address] Bill Graham MD [address] [facility] [address] [place] [address] 04/12/2025 7:30 AM EDT Anesthesia Event [facility] Operating Room 1 [place] [address] Lucio Szymanski MD [address] [place] [address] 04/12/2025 7:30 AM EDT - 04/12/2025 8:55 AM EDT Surgery [facility] Operating Room 1 [place] [address] [place] [address] [place] [address] [address] [place] [address] (LAPAROSCOPIC PERITONEAL DIALYSIS CATHETER INSERTION) Scheduled Procedures Name Priority Associated Diagnoses Date/Ti me LAPAROSCOPY, WITH PERITONEAL DIALYSIS CATHETER INSERTION Chronic kidney disease, stage V (HCC) 04/12/2025 7:30 AM EDT documented as of this encounter Visit Diagnoses Not on filedocumented in this encounter Care Teams Chief Drafter Relationship Specialty Start Date End Date Félix Monroe, DIAL MOUNTER [address] [facility] [address] [place] [address] PCP - General Nurse Practitioner 08/25/22 documented as of this encounter
--- OUTSIDE RECORDS SUMMARY | 2025-04-11 11:05 | XMS_ITS | Encounter Summary ---
Author Organization [email or web address] ([place], [place], [place], [place]) Address [address] [address] Care Team Providers Care Oncology Rep Name Role Phone Ramos Monroeie Francisco RODRIGUEZ Primary Care Provider [phone] Encounter Details Date Type Department Care Team (Late st Contact Info) Description 07/25/2019 Transcribed Document [facility] [place] Medicine [address] [place] [address] ProviderMaria Esther MD [address] [place], [place] [address] Social History Tobacco Use Types Packs/Day Years Used Date Smoking Tobacco: Never Assessed Comments Unknown Sex and Gender Information Value Date Recorded Sex Assigned at Not on file Legal Sex Female 6:53 PM CDT Gender Identity Not on file Sexual Orientation Not on file documented as of this encounter Miscellaneous Notes * Cerner Conversion Note - Maria Esther ProviderMD - 07/25/2019 2:54 PM NON CATEGORICAL PRESCHOOL TEACHER Patient: CORRIE SMITH Age: 49 years Sex: Female : 1970 Associated Diagnoses: None Author: DARRIUS TOUSSAINT, MICHAEL-CTS Admission Date: Admitting: Dr. Yg Cooney PCP: None Consultants:Dr. Emanuel Brody, Cardiology Dr.Mostafa Howell, Nephrology Dr. Александр Valdez, CT Surgery Brief History:Corrie Smith is a 49-year-old female with a known history of valvular heart disease, congestive heart failure, and tobacco abuse. She has had 2 hospital admissions for CHF over the past 15 years. [facility]. She stopped taking her cardiac medication 4 months ago he lost her insurance. At the ER at [place] she had a transthoracic echocardiogram showed severe MR. She also had an elevated pro BNP of 31,000 as well as an elevated troponin at 0.85. The patient was given a loading dose of aspirin and Brilinta, given nitroglycerin and intravenous Lasix, and was started on a heparin drip and then was transferred to [facility] Dr. Александр Valdez has been asked to evaluate this lady for mitral valve surgery. PROCEDURE: DX(Present on admission): Severe Mitral Requrgitation Acute\chronic Valvular CHF Acute Pulmonary Edema EF 50-55% per intraop RIA Acute Kidney\Chronic CKD, Stage 3 ( unknown baseline) Hypokalemia Prolonged QT interval Thrombocytopenia Systemic HTN HLP Ongoing cigarette abuse with nicotine dependency\withdrawl Past Hx of Lap Band Procedure POSTOP DX: Subjective : worried about surgery 07/25/19: Health Status Allergies: Allergic Reactions (Selected) Severity Not Documented Codeine- No reactions were documented. Current medications.Problem list. Objective VS/Measurements Vital Measurements 07/25/2019 6:39 EST Systolic Blood Pressure 128 mmHg Diastolic Blood Pressure 81 mmHg Temperature, Fahrenheit 98 Deg F Heart Rate Monitored 77 bpm Oxygen Saturation 93 % LOW Oxygen Therapy Mode Room air General: Alert and oriented. Respiratory: Lungs are clear to auscultation. Cardiovascular: Normal rate, Regular rhythm. Gastrointestinal: Soft, Non-tender. Results Review General results Today's results 07/25/2019 4:12 EST Sodium Level 140 mmol/L Potassium Level 3.7 mmol/L Chloride Level 108 mmol/L Carbon Dioxide Level 27 mmol/L Anion Gap 9 Glucose Level 98 mg/dL Blood Urea Nitrogen 25 mg/dL HI Creatinine Level 2.50 mg/dL HI eGFR 25 mL/min/1.73m2 LOW eGFR NonAfrican 20 mL/min/1.73m2 LOW Bun/Creatinine 10.0 Calcium Level 8.8 mg/dL WBC 7.2 K/uL RBC 3.58 Million/uL LOW Hgb 10.8 g/dL LOW Hct 33.0 % LOW MCV 92.2 fL MCH 30.2 pg MCHC 32.7 Gram/dL Platelet Count 146 K/uL LOW Interpretation: No Radiology Results Found Impression and Plan VTE STATUS>>SCDS Tobacco Cessation discussed with patient on 07/22/19 Mitral valve replacement hopefully Wednesday or Wednesday by Dr. Valdez. (Got Brilinta at [facility] >2 days ago) Creatinine 2.2 (2.0 yesterday) renal following Potassium 2.9, getting replacement Card:Mild elevation of cardiac biomarkers. Patient has valvular heart disease will need ischemic workup. Will Schedule patient for left heart catheterization on Wednesday if her renal function improves. Severe mitral regurgitation with mildly reduced ejection fraction. Dependence on the finding on coronary angiogram further management will be planned. 07/23/19 Mitral valve replacement Wednesday or Wednesday per Dr. Valdez. Creatinine 2.4 (2.2 yesterday) renal following Card: S/P mild elevation of cardiac biomarkers, trended down on medical treatment. patient denied any chest pain. Patient will need left heart cath for her NSTEMI and valvular heart disease pending improvement in renal function O2 Sat 95% on RA Creatinine 2.5 ( 2.4 yesterday Brilinta loading dose on Pt seen and evaluated by Dr. Valdez>> will need Cardiac Cath when renal function will allow If renal function improves and Cardiac Cath done, pt tenatively can have surgery on Wednesday Perioperative Mitral Valve Replacement ( +/- CABG) period and procedure discussed with patient and family; questions answered; All appear to comprehend and were receptive Card:Renal function worse today. Her cardiac status is not emergent, so we have some time to optimize renal status before proceeding with C> D/W pt. and family - they understand. Neph:Her clearance remains poor. I have challenged her to have good oral nutrition. I'm reassured that her blood pressure is stable most of the time. She is clinically stable. She is undergoing scheduling with cardiovascular surgery for plans regarding her valvular heart surgery. Hopefully with simple intervention such as good nutrition, blood pressure management and supportive care her clearance will improve. However, it's possible that she had undiagnosed hypertensive nephrosclerosis. I'm reassured that she did not have hematuria on urinalysis or proteinuria on urine protein to creatinine ratio and her renal ultrasound was unremarkable. -I'm reassured that her blood pressure is relatively stable. -She is not on diuretics, IVA inhibitor or nephrotoxic agents. -I do not think she requires a kidney biopsy. -We will continue to monitor her clearance, urine output and electrolytes. Hopefully her clearance will improve. However if she needs emergent valvular heart surgery we can monitor her clearance in the perioperative setting. I have cautioned the patient that she may have some risk of perioperative acute kidney injury. -There is no urgent indication for dialysis. Telemetry>> O2 sat>> 93% on RA Creatinine 2.5 ( yesterday 2.5) Pt on Heparin drip ( ordered by Dr. Cooney) Needs Cardiac Cath prior to Mitral Valve Replacement ( Pt\ appear well-prepared) Pt seen and evaluated by Dr. Valdez>> from his standpoint, Pt may be discharged when renal status is stable; [facility] per Cardiology as outpatient, then F\U with Dr. Valdez to schedule Mitral Valve replacement +/- CABG From CT Surgery standpoint, Heparin drip may be stopped at anytime Card: 07/25/2019 Denies any symptoms. Awaiting improvement in renal function prior to C. From our standpoint this could be done as an OP. We are available any time. Electronically signed by Evaristo Loyola Conversion Order Department Supervisor Cerner at 10/28/2022 7:14 PM CDT documented in this encounter Plan of Treatment Upcoming Encounters Date Type Department Care Team (Late st Contact Info) Description 04/12/2025 7:30 AM EDT Hospital Encounter [facility] Operating Room 1 [place] [address] Bill Graham MD [address] [place] [address] [address] [place] [address] 04/12/2025 7:30 AM EDT Anesthesia Event [facility] Operating Room 1 [place] [address] Lucio Szymanski MD [address] [place] [address] 04/12/2025 7:30 AM EDT - 04/12/2025 8:55 AM EDT Surgery [facility] Operating Room 1 [place] [address] Bill Graham MD [address] [facility] [address] [place], [place] [id number] (LAPAROSCOPIC PERITONEAL DIALYSIS CATHETER INSERTION) Scheduled Procedures Name Priority Associated Diagnoses Date/Ti me LAPAROSCOPY, WITH PERITONEAL DIALYSIS CATHETER INSERTION Chronic kidney disease, stage V (HCC) 04/12/2025 7:30 AM EDT documented as of this encounter Visit Diagnoses Not on filedocumented in this encounter Care Teams Oncology Rep Relationship Specialty Start Date End Date Félix Monroe, COMMERCIAL ESTIMATOR [address] [facility] [address] [place] [address] PCP - General Nurse Practitioner 08/25/22 documented as of this encounter
--- OUTSIDE RECORDS SUMMARY | 2025-04-11 11:05 | XMS_ITS | Encounter Summary ---
Author Organization [employer] ([place], [place], [place], [place]) Address [address] [address] Care Team Providers Care Manufacturing Project Engineer Name Role Phone Monroe Félix Francisco RODRIGUEZ Primary Care Provider [phone] Encounter Details Date Type Department Care Team (Late st Contact Info) Description 07/25/2019 Transcribed Document [facility] Family Medicine [address] [place] [address] ProviderMaria Esther MD [address], [place] [address] Social History Tobacco Use Types Packs/Day Years Used Date Smoking Tobacco: Never Assessed Comments Unknown Sex and Gender Information Value Date Recorded Sex Assigned at Not on file Legal Sex Female 6:53 PM CDT Gender Identity Not on file Sexual Orientation Not on file documented as of this encounter Miscellaneous Notes * [employer]ner Conversion Note - Maria Esther Reyes MD - 07/25/2019 3:45 PM FIBREGLASS LAMINATOR On Going Discharge Planning Entered On: 07/25/2019 15:47 EST Performed On: 07/25/2019 15:45 EST by Yolanda Ramsey RN-House DetectiveForest Ranger Technician Progress Note Discharge Arrangements : Patient Post-Acute [...] Attend Multidisciplinary Rounds? : Yes Yolanda Ramsey RN-House Detective - 07/25/2019 15:45 EST Narrative Progress Note Narrative Progress Note : HD#3 Clinical chart reviewed. Waiting on nephrology clearance for LHC and probable valve replacement surgery. CM will continue to follow for discharge planning needs. Historical Progress Note : 49 year old female with PMH valvular heart disease, CHF, COPD with ongoing tobacco abuse presented to [facility] with worsening SOB. Patient hospitalized 7 years ago for leaking valve , echo - severe mitral regurg. BNP 02175. Nephrology consult: CKD stage III. Plan: LHC when renal function allows. Patient tentively scheduled for surgery on Wednesday. CM will continue to follow for discharge planning. Yolanda Ramsey RN-House Detective - 07/24/19 16:26:17 Yolanda Ramsey RN-House Detective - 07/25/2019 15:45 EST Electronically signed by [facility] Conversion After School Program Teacher Cerner at 10/28/2022 7:18 PM CDT documented in this encounter Plan of Treatment Upcoming Encounters Date Type Department Care Team (Late st Contact Info) Description 04/12/2025 7:30 AM EDT Hospital Encounter [facility] Operating Room 1 [place] [address] Bill Graham MD [address] [place] [address] 04/12/2025 7:30 AM EDT Anesthesia Event [facility] Operating Room 1 [place] [address] Lucio Szymanski MD [address] [place] [address] 04/12/2025 7:30 AM EDT - 04/12/2025 8:55 AM EDT Surgery [facility] Operating Room 1 [place] [address] Bill Graham MD [address] [place] [address] (LAPAROSCOPIC PERITONEAL DIALYSIS CATHETER INSERTION) Scheduled Procedures Name Priority Associated Diagnoses Date/Ti me LAPAROSCOPY, WITH PERITONEAL DIALYSIS CATHETER INSERTION Chronic kidney disease, stage V (HCC) 04/12/2025 7:30 AM EDT documented as of this encounter Visit Diagnoses Not on filedocumented in this encounter Care Teams Manufacturing Project Engineer Relationship Specialty Start Date End Date Félix Monroe, PORTABLE GRINDING MACHINE OPERATOR [address] [facility] [address] [place] [address] PCP - General Nurse Practitioner 08/25/22 documented as of this encounter
--- OUTSIDE RECORDS SUMMARY | 2025-04-11 11:05 | XMS_ITS | Encounter Summary ---
Author Organization [employer] ([place], [place], [place], [place]) Address [address] [place] [address] Care Team Providers Care Engineering Intern Name Role Phone Félix Monroe MICHAEL Primary Care Provider Encounter Details Date Type Department Care Team (Late st Contact Info) Description 07/25/2019 Transcribed Document [facility] [place] [facility] [address] [place] [address] ProviderMaria Esther MD [address] [place], [place] [id number] Social History Tobacco Use Types Packs/Day Years Used Date Smoking Tobacco: Never Assessed Comments Unknown Sex and Gender Information Value Date Recorded Sex Assigned at Not on file Legal Sex Female 6:53 PM CDT Gender Identity Not on file Sexual Orientation Not on file documented as of this encounter Miscellaneous Notes * Cerner Conversion Note - Maria Esther ProviderMD - 07/25/2019 11:13 AM E COMMERCE STRATEGIST UM Authorization Entered On: 07/25/2019 11:14 EST Performed On: 07/25/2019 11:13 EST by ALETHEA MEYERS Rn-Utilization Review Primary Insurance Authorization Authorization and Policy Numbers : Insurance 1 Health Plan: MEDICAID PENDING Policy Number: [id number] Authorization Number: Insurance Primary Name : MEDICAID PENDING Policy Number: [id number] Authorized Service Begin Date-Primary : 07/22/2019 EST Historical Authorization Comments-Primary : Comment 1: call to [facility] medicaid with name//ssn. patient is not active with [facility] medicaid (Shantal Bernal Rn-Utilization Review 07/24/2019 11:42) Comment 2: per star notes patient has [employer] no ins id noted (Shantal Bernal, Rn-Utilization Review 07/24/2019 11:14) Comment 3: SELF PAY (ALETHEA MEYERS, Rn-Utilization Review 07/22/2019 13:34) ALETHEA MEYERS, Rn-Utilization Review - 07/25/2019 11:13 EST Electronically signed by [facility], [facility] Conversion Plant Controls Specialist Cerner at 10/28/2022 7:21 PM CDT documented in this encounter Plan of Treatment Upcoming Encounters Date Type Department Care Team (Late st Contact Info) Description 04/12/2025 7:30 AM EDT Hospital Encounter [facility] Operating Room 1 [place] [address] Bill Graham MD [address] [place] [address] 04/12/2025 7:30 AM EDT Anesthesia Event [facility] Operating Room 1 [place] [address] Lucio Szymanski MD [address] [place] [address] 04/12/2025 7:30 AM EDT - 04/12/2025 8:55 AM EDT Surgery [facility] Operating Room 1 [place] [address] Bill Graham MD [address] [place] [address] (LAPAROSCOPIC PERITONEAL DIALYSIS CATHETER INSERTION) Scheduled Procedures Name Priority Associated Diagnoses Date/Ti me LAPAROSCOPY, WITH PERITONEAL DIALYSIS CATHETER INSERTION Chronic kidney disease, stage V (HCC) 04/12/2025 7:30 AM EDT documented as of this encounter Visit Diagnoses Not on filedocumented in this encounter Care Teams Engineering Intern Relationship Specialty Start Date End Date Félix Monroe, SCIENTIFIC ASSOCIATE [address] [facility] [address] [place] [address] PCP - General Nurse Practitioner 08/25/22 documented as of this encounter
--- OUTSIDE RECORDS SUMMARY | 2025-04-11 11:05 | XMS_ITS | Encounter Summary ---
Author Organization [employer] ([place], [place], [place], [place]) Address [address] [place] [address] Care Team Providers Care Sound Effects Technician Name Role Phone Félix Monroe APRN Primary Care Provider [phone] Encounter Details Date Type Department Care Team (Late st Contact Info) Description 10/18/2019 Transcribed Document [facility] [place] Medicine [address] [place] [address] ProviderMaria Esther MD [address], [place] [phone] Social History Tobacco Use Types Packs/Day Years Used Date Smoking Tobacco: Never Assessed Comments Unknown Sex and Gender Information Value Date Recorded Sex Assigned at Not on file Legal Sex Female 6:53 PM CDT Gender Identity Not on file Sexual Orientation Not on file documented as of this encounter Miscellaneous Notes * Cerner Conversion Note - Maria Esther ProviderMD - 10/18/2019 5:00 PM CDT Chart Check - Review Order Profile Entered On: 10/18/2019 16:01 EDT Performed On: 10/18/2019 17:00 EDT by HINA SALGADO RN Chart Check Powerplans Initiated/Discontinued as Appropriate : Yes All Active Orders Reviewed : Yes HINA SALGADO, RN - 10/18/2019 16:01 EDT documented in this encounter Plan of Treatment Upcoming Encounters Date Type Department Care Team (Late st Contact Info) Description 04/12/2025 7:30 AM EDT Hospital Encounter [facility] Operating Room 1 [place] [address] Bill Graham MD [address] [facility] [address] [place] [address] 04/12/2025 7:30 AM EDT Anesthesia Event [facility] Operating Room 1 [place] [address] Lucio Szymanski MD [address] [place] [address] 04/12/2025 7:30 AM EDT - 04/12/2025 8:55 AM EDT Surgery [facility] Operating Room 1 [place] [address] Bill Graham MD [address] [facility] [address] [place] [address] (LAPAROSCOPIC PERITONEAL DIALYSIS CATHETER INSERTION) Scheduled Procedures Name Priority Associated Diagnoses Date/Ti me LAPAROSCOPY, WITH PERITONEAL DIALYSIS CATHETER INSERTION Chronic kidney disease, stage V (HCC) 04/12/2025 7:30 AM EDT documented as of this encounter Visit Diagnoses Not on filedocumented in this encounter Care Teams Sound Effects Technician Relationship Specialty Start Date End Date Félix Monroe, PLATE GRAINER APPRENTICE [address] [facility] [address] [place] [address] PCP - General Nurse Practitioner 08/25/22 documented as of this encounter
--- OUTSIDE RECORDS SUMMARY | 2025-04-11 11:05 | XMS_ITS | Encounter Summary ---
Author Organization [employer] ([place], [place], [place], [place]) Address [address] [address] Care Team Providers Care Director Family Name Role Phone Fer Félix Singh APRN Primary Care Provider [phone] Encounter Details Date Type Department Care Team (Late st Contact Info) Description 07/25/2019 Transcribed Document [facility] [place] Family Medicine [address] [place] [address] ProviderMaria Esther MD [address] [place], [place] [address] Social History Tobacco Use Types Packs/Day Years Used Date Smoking Tobacco: Never Assessed Comments Unknown Sex and Gender Information Value Date Recorded Sex Assigned at Not on file Legal Sex Female 6:53 PM CDT Gender Identity Not on file Sexual Orientation Not on file documented as of this encounter Miscellaneous Notes * Cerner Conversion Note - Maria Esther ProviderMD - 07/25/2019 11:43 AM POTATO CHIP SORTER UM Authorization Entered On: 07/25/2019 11:44 EST Performed On: 07/25/2019 11:43 EST by ALETHEA MEYERS Rn-Utilization Review Primary Insurance Authorization Authorization and Policy Numbers : Insurance 1 Health Plan: MEDICAID PENDING Policy Number: [id number] Authorization Number: Insurance Primary Name : Osvaldo XTF:[id number] Authorization Status-Primary : Awaiting callback Reference Number-Primary : [id number] Authorized Service Begin Date-Primary : 07/22/2019 EST Authorization Comments-Primary : Per [facility] notes, patient has [employer] Medicaid, per Page Policy number is [id number]. Submitted Inpt Auth on Availity with clinicals attahed. Historical Authorization Comments-Primary : Comment 1: call to [employer] with name//ssn. patient is not active with [employer] (Shantal Bernal, Rn-Utilization Review 07/24/2019 11:42) Comment 2: per star notes patient has [employer] no ins id noted (Shantal Bernal, Rn-Utilization Review 07/24/2019 11:14) Comment 3: SELF PAY (ALETHEA MEYERS, Rn-Utilization Review 07/22/2019 13:34) ALETHEA MEYERS, Rn-Utilization Review - 07/25/2019 11:43 EST Electronically signed by [facility], [facility] Conversion Overhead Crane Inspector Cerner at 10/28/2022 7:17 PM CDT documented in this encounter Plan of Treatment Upcoming Encounters Date Type Department Care Team (Late st Contact Info) Description 04/12/2025 7:30 AM EDT Hospital Encounter [facility] Operating Room 1 [place] [address] Bill Graham MD [address] [place] [address] 04/12/2025 7:30 AM EDT Anesthesia Event [facility] Operating Room 1 [place] [address] Lucio Szymanski MD [address] [place] [address] 04/12/2025 7:30 AM EDT - 04/12/2025 8:55 AM EDT Surgery [facility] Operating Room 1 [place] [address] Bill Graham MD [address] [place] [address] (LAPAROSCOPIC PERITONEAL DIALYSIS CATHETER INSERTION) Scheduled Procedures Name Priority Associated Diagnoses Date/Ti me LAPAROSCOPY, WITH PERITONEAL DIALYSIS CATHETER INSERTION Chronic kidney disease, stage V (HCC) 04/12/2025 7:30 AM EDT documented as of this encounter Visit Diagnoses Not on filedocumented in this encounter Care Teams Director Family Relationship Specialty Start Date End Date Monroe Félix Francisco, WEIGHT COUNT OPERATOR [address] [facility] [address] [place] [address] PCP - General Nurse Practitioner 08/25/22 documented as of this encounter
--- OUTSIDE RECORDS SUMMARY | 2025-04-11 11:05 | XMS_ITS | Encounter Summary ---
Author Organization Healthcare Address [address] [place] [address] Care Team Providers Care Risk Control Specialist Name Role Phone Az David MD Primary Care Provider [phone] Encounter Details Date Type Department Care Team (Latest Contact Info) Description 02/23/2025 Travel Social History Tobacco Use Types Packs/Day Years Used Date Smoking Tobacco: Former Cigarettes Q uit: 2020 Smokeless Tobacco: Never Alcohol Use Standard Drinks/Week Comments Not Currently 0 (1 standard drink = 0.6 oz pur e alcohol) Humiliation, Afraid, Rape, and Kick questionnair e Answer Date Recorded Within the last year, have y ou been afraid of your partner or ex-partner? No 11/16/2024 Within the last year, have y ou been humiliated or emotionally abused in other ways by your partner or ex-partner? No Within the last year, have y ou been kicked, hit, slapped, or otherwise physically hurt by your partner or ex-partner? No 11/16/2024 Within the last year, have y ou been raped or forced to have any kind of sexual activity by your partner or ex-partner? No 11/16/2024 Overall Financial Resource Strain (CARDIA) Answe r Date Recorded How hard is it for you to pa y for the very basics like food, housing, medical care, and heating? Somewhat hard 11/16/2024 PHQ-2 Answer Date Recorded Patient Health Questionnaire-2 Score 0 02/01/2025 Hunger Vital Sign Answer Date Recorded Within [...] medical appointments or from getting medications? No 11/10 In the past 12 months, has l ack of transportation kept you from meetings, work, or from getting things needed for daily living? No 11/29/2024 PHQ-9 Answer Date Recorded Patient Health Questionnaire-9 Score 5 06/15/2024 Housing Stability Vital Sign Answer [place] e Recorded In the last 12 months, was t here a time when you were not able to pay the mortgage or rent on time? No 11/29/2024 In the past 12 months, how m any times have you moved where you were living? 0 11/29/2024 At any time in the past 12 m [facility], were you homeless or living in a snf (including now)? No 11/29/2024 CAGE ASSESSMENT Answer Date Recorded Cage unable [...] drink first t mohamud in the morning (EYE-MOLD FORMS BUILDER) to steady your nerves or to get rid of a hangover? 0 03/23/2023 CAGE Questionnaire Score 0 023 Utilities Answer Date Recorded In the past 12 months has th e electric, gas, oil, or water company threatened to shut off services in your home? Yes 11/29/2024 Comments No Sex and Gender Information Value [...] Date of Assessment Author No Risk Indicated 02/23/2025 8:30 AM EDT Francisco Macias RN * Question Answer Date of Assessment Author 1. Wish to be (Past 1 Month) No 025 8:30 AM EDT Jane Macias RN 2. Non-Specific Active Suici leidy Thoughts (Past 1 Month) No 02/23/2025 8:30 AM EDT Jane Macias RN 6. Suicidal Behavior (Lifetime) No 8:30 AM EDT Jane Macias RN documented as of this encounter Plan of Treatment Upcoming Encounters Date Type Department Care Team (Late st Contact Info) Description 05/24/2025 1:40 PM EST Office Visit [facility] [address] [phone] Lenore Cosme MD [address] [place] [address] 08/02/2025 1:40 PM EST Office Visit [facility] [address] [address] Lenore Cosme MD [address] [place] [phone] documented as of this encounter Visit Diagnoses [...] documented as of this encounter Care Teams Risk Control Specialist Relationship Specialty Start Date End Date Az David MD [address] [place] [address] PCP - General 03/22/23 documented as of this encounter
--- OUTSIDE RECORDS SUMMARY | 2025-04-11 11:05 | XMS_ITS | Encounter Summary ---
Author Organization Healthcare Address [address] [place] [address] Care Team Providers Care Shipsmith Name Role Phone Az David MD Primary Care Provider + [phone] Encounter Details Date Type Department Care Team (Latest Contact Info) Description 02/27/2025 Travel Social History Tobacco Use Types Packs/Day [...] were you homeless or living in a chcf (including now)? No 02/26/2025 CAGE ASSESSMENT Answer [...] drink first t mohamud in the morning (EYE-PIPE BOWL PAINT TRIMMER) to steady your nerves or to get [...] Date of Assessment Author No Risk Indicated 02/27/2025 8:01 PM EDT Roman Tamez, CROW * Question Answer Date of Assessment Author 1. Wish to be (Past 1 Month) No 025 8:01 PM EDT Roman Tamez, RN 2. Non-Specific Active Suici leidy Thoughts (Past 1 Month) No 02/27/2025 8:01 PM EDT Henrik Tamez, RN 6. Suicidal Behavior (Lifetime) No 8:01 PM EDT Roman Tamez, RN documented as of this encounter Plan of Treatment Upcoming Encounters Date Type Department Care Team (Late st Contact Info) Description 05/24/2025 1:40 PM EST Office Visit [facility] [address] [phone] Lenore Cosme MD [address] [place] [phone] 08/02/2025 1:40 PM EST Office Visit [facility] [address] [phone] Lenore Cosme MD [address] [place] [phone] documented as of this encounter Visit Diagnoses [...] documented as of this encounter Care Teams Shipsmith Relationship Specialty Start Date End Date Az David MD [address] [place] [address] PCP - General 03/22/23 documented as of this encounter
--- OUTSIDE RECORDS SUMMARY | 2025-04-11 11:05 | XMS_ITS | Encounter Summary ---
Author Organization Healthcare Address [address] [place] [address] Care Team Providers Care Foundry Molder Name Role Phone Az David MD Primary Care Provider + [phone] Encounter Details Date Type Department Care Team (Latest Contact Info) Description 02/24/2025 Travel Social History Tobacco Use Types Packs/Day [...] any time in the past 12 m [facility], were you homeless or living in a longterm (including now)? No 11/29/2024 CAGE ASSESSMENT Answer [...] drink first t mohamud in the morning (EYE-URBAN DESIGNER) to steady your nerves or to get [...] Description 05/24/2025 1:40 PM EST Office Visit [facility] [address] [address] Lenore Cosme MD [address] [place] [address] 08/02/2025 1:40 PM EST Office Visit [facility] [address] [address] Lenore Cosme MD [address] [place] [address] documented as of this encounter [...] documented as of this encounter Care Teams Foundry Molder Relationship Specialty Start Date End Date Az David MD [address] [place] [address] PCP - General 03/22/23 documented as of this encounter
--- OUTSIDE RECORDS SUMMARY | 2025-04-11 11:05 | XMS_ITS | Encounter Summary ---
Author Organization [employer] ([place], [place], [place], [place]) Address [address] [address] Care Team Providers Care Health Nurse Name Role Phone Félix Monroe APRN Primary Care Provider [phone] Encounter Details Date Type Department Care Team (Late st Contact Info) Description 07/25/2019 Transcribed Document [facility] [place] Family Medicine [address] [place] [address] ProviderMaria Esther MD [address] [place] [address] Social History Tobacco Use Types Packs/Day Years Used Date Smoking Tobacco: Never Assessed Comments Unknown Sex and Gender Information Value Date Recorded Sex Assigned at Not on file Legal Sex Female 6:53 PM CDT Gender Identity Not on file Sexual Orientation Not on file documented as of this encounter Miscellaneous Notes * Cerner Conversion Note - Historical ProviderMD - 07/25/2019 5:00 PM RESIDENTIAL RECYCLE DRIVER Chart Check - Review Order Profile Entered On: 07/25/2019 15:28 EST Performed On: 07/25/2019 17:00 EST by SENDY TOUSSAINT RN Chart Check All Active Orders Reviewed : Yes SENDY TOUSSAINT RN - 07/25/2019 15:28 EST documented in this encounter Plan of Treatment Upcoming Encounters Date Type Department Care Team (Late st Contact Info) Description 04/12/2025 7:30 AM EDT Hospital Encounter [facility] Operating Room 1 [place] [address] Bill Graham MD [address] [facility] [address] [place] [address] 04/12/2025 7:30 AM EDT Anesthesia Event [facility] Operating Room [address] [place] [address] Lucio Szymanski MD [address] [place] [address] 04/12/2025 7:30 AM EDT - 04/12/2025 8:55 AM EDT Surgery [facility] Operating Room [address] [place] [address] Bill Graham MD [address] [facility] [address] [place] [address] (LAPAROSCOPIC PERITONEAL DIALYSIS CATHETER INSERTION) Scheduled Procedures Name Priority Associated Diagnoses Date/Ti me LAPAROSCOPY, WITH PERITONEAL DIALYSIS CATHETER INSERTION Chronic kidney disease, stage V (HCC) 04/12/2025 7:30 AM EDT documented as of this encounter Visit Diagnoses Not on filedocumented in this encounter Care Teams Health Nurse Relationship Specialty Start Date End Date Félix Monroe, CONDUCTOR SYMPHONIC ORCHESTRA [address] [facility] [address] [place] [address] PCP - General Nurse Practitioner 08/25/22 documented as of this encounter
--- OUTSIDE RECORDS SUMMARY | 2025-04-11 11:05 | XMS_ITS | Encounter Summary ---
Author Organization [employer] ([place], [place], [place], [place]) Address [address] [place] [address] Care Team Providers Care Hand Zipper Trimmer Name Role Phone Félix Monroe MICHAEL Primary Care Provider [phone] Encounter Details Date Type Department Care Team (Late st Contact Info) Description 10/19/2019 Transcribed Document [facility] [place] [facility] [place] [address] ProviderMaria Esther MD [address] [place], [place] [phone] Social History Tobacco Use Types Packs/Day Years Used Date Smoking Tobacco: Never Assessed Comments Unknown Sex and Gender Information Value Date Recorded Sex Assigned at Not on file Legal Sex Female 6:53 PM CDT Gender Identity Not on file Sexual Orientation Not on file documented as of this encounter Miscellaneous Notes * Cerner Conversion Note - Maria Esther ProviderMD - 10/19/2019 2:00 AM CDT Bull Riveter Details Entered On: 10/19/2019 3:31 EDT Performed On: 10/19/2019 2:00 EDT by Lucy Duron RN Order Details Transport Mode Order Detail : Portable Isolation Precautions Order Detail : Standard Precautions Order Detail : 0 IV Order Detail : 1 Oxygen Order Detail : 0 Nurse Collect Order Detail : 0 Lift/Transfer : Minimal Central Line Order Detail : Yes Room Service : Appropriate Arterial Line : Yes Lucy Duron RN - 10/19/2019 3:31 EDT Electronically signed by Evaristo Loyola Conversion Computer Forensics Examiner Cerner at 10/28/2022 7:10 PM CDT documented in this encounter Plan of Treatment Upcoming Encounters Date Type Department Care Team (Late st Contact Info) Description 04/12/2025 7:30 AM EDT Hospital Encounter [facility] Operating Room [address] [place] [address] Bill Graham MD [address] [facility] [address] [place] [address] 04/12/2025 7:30 AM EDT Anesthesia Event [facility] Operating Room [address] [place] [address] Lucio Szymanski MD [address] [place] [address] 04/12/2025 7:30 AM EDT - 04/12/2025 8:55 AM EDT Surgery [facility] Operating Room [address] [place] [address] Bill Graham MD [address] [place] [address] [place] [address] (LAPAROSCOPIC PERITONEAL DIALYSIS CATHETER INSERTION) Scheduled Procedures Name Priority Associated Diagnoses Date/Ti me LAPAROSCOPY, WITH PERITONEAL DIALYSIS CATHETER INSERTION Chronic kidney disease, stage V (HCC) 04/12/2025 7:30 AM EDT documented as of this encounter Visit Diagnoses Not on filedocumented in this encounter Care Teams Hand Zipper Trimmer Relationship Specialty Start Date End Date Félix Monroe, INDUSTRIAL TRUCK MECHANIC [address] [facility] [address] [place] [address] PCP - General Nurse Practitioner 08/25/22 documented as of this encounter
--- OUTSIDE RECORDS SUMMARY | 2025-04-11 11:05 | XMS_ITS | Encounter Summary ---
Author Organization [employer] ([place], [place], [place], [place]) Address [address] [place] [address] Care Team Providers Care Equipment Application Specialist Name Role Phone Fer Félix Francisco RODRIGUEZ Primary Care Provider [phone] Encounter Details Date Type Department Care Team (Late st Contact Info) Description 07/25/2019 Transcribed Document [facility] [place] Family Medicine [address] [place] [address] ProviderMaria Esther MD [address] [place], [place] [address] Social History Tobacco Use Types Packs/Day Years Used Date Smoking Tobacco: Never Assessed Comments Unknown Sex and Gender Information Value Date Recorded Sex Assigned at Not on file Legal Sex Female 6:53 PM CDT Gender Identity Not on file Sexual Orientation Not on file documented as of this encounter Miscellaneous Notes * Cerner Conversion Note - Maria Esther Reyes MD - 07/25/2019 5:33 AM CLASS A REGIONAL DRIVERS Patient: CORRIE SMITH [facility]: [id number] Age: 49 years Sex: Female : 1970 Associated Diagnoses: None Author: JUAN GALVEZ MD-CAR Basic Information Building Drafting Officer: None Subjective NAD Health Status Current medications: (Selected) Inpatient Medications Ordered Ativan: [...] influenza virus vaccine, inactivated: 0.5 mL, IntraMuscular, [id number], No qualifying data available Problem list: Active Problems (2) COPD (chronic obstructive pulmonary disease) HTN - Hypertension Objective VS/Measurements Vitals Signs (last 24 hrs) Last Charted Minimum Maximum Temp 97.8 (JUL 25:) 97.8 (JUL 25:) 98 (JUL 24:42) Apical HR 82 (JUL 24:44) 82 (JUL 24:44) 82 (JUL 24:44) Mon HR 75 (JUL 25:) 71 (JUL 24 08:43) 79 (JUL 24:43) Resp Rate 18 (JUL 25:) 16 (JUL 24:22) 18 (JUL 24:42) SBP 125 (JUL 25:21) 125 (JUL 25:) H 159 (JUL 24 22:00) DBP 73 (JUL 25:) 73 (JUL 25 02:21) H 103 (JUL 24:42) MAP 86 (JUL 25:) 86 (JUL 25:21) 117 (JUL 24:22) SpO2 L 92 (JUL 25:) L 92 (JUL 24 22:00) 97 (JUL 24 08:43) General: Alert and oriented, No acute distress. [...] Appropriate mood & affect. Results Review JUL 25 04:12 140 108 H 25 / 98 3.7 27 H 2.50 \ JUL 25 04:12 \ L 10.8 / 7.2 L 146 / L 33.0 \ ECHO 07/21/2019 Impression: Normal sized left ventricle. Moderate left ventricular hypertrophy. Visually estimated ejection fraction 50-55%. Abnormal systolic strain pattern. Abnormal diastolic function. Thickened mitral valve leaflets with appearance of rheumatic mitral disease. Severe mitral regurgitation. Mild mitral stenosis. Mild pulmonic stenosis. Severely Dilated left atrium. No masses or thrombi are seen. Impression and Plan IMPRESSION: NON-ASC elevation of troponin Troponin 0.082, 0.064 Prolonged QT - 554 VHD; appearance of rheumatic mitral disease per ECHO 07/21/2019 Severe MR, Mild mitral stenosis, Mild pulmonic stenosis EF 55% per ECHO Elevated ProBNP > 12,000 LETY; worsening Cr 2.5 COPD Ongoing tobacco abuse PLAN: 07/25/2019 Denies any symptoms. Awaiting improvement in renal function prior to LHC. From our standpoint this could be done as an OP. We are available any time. 07/24/2019 Renal function worse today. Her cardiac status is not emergent, so we have some time to optimize renal status before proceeding with LHC> D/W pt. and family - they understand. 07/23/2019 S/P mild elevation of cardiac biomarkers, [...] Description 04/12/2025 7:30 AM EDT Hospital Encounter Operating Room 1 [place] [address] Bill Graham MD [address] [place] [address] 04/12/2025 7:30 AM EDT Anesthesia Event Operating Room 1 [place] [address] Lucio Szymanski MD [address] [place] [address] 04/12/2025 7:30 AM EDT - 04/12/2025 8:55 AM EDT Surgery Operating Room 1 [place] [address] Bill Graham MD [address] [place] [address] (LAPAROSCOPIC PERITONEAL DIALYSIS CATHETER INSERTION) Scheduled Procedures Name Priority Associated Diagnoses Date/Ti me LAPAROSCOPY, WITH PERITONEAL DIALYSIS CATHETER INSERTION Chronic kidney disease, stage V (HCC) 04/12/2025 7:30 AM EDT documented as of this encounter Visit Diagnoses Not on filedocumented in this encounter Care Teams Equipment Application Specialist Relationship Specialty Start Date End Date Félix Monroe, COMMERCIAL DRIVER'S LICENSE DRIVER [address] [facility] [address] [place] [address] PCP - General Nurse Practitioner 08/25/22 documented as of this encounter
--- OUTSIDE RECORDS SUMMARY | 2025-04-11 11:05 | XMS_ITS | Encounter Summary ---
Author Organization Healthcare Address [address] [place] [address] Care Team Providers Care Welder Helper Name Role Phone Az David MD Primary Care Provider [phone] Encounter Details Date Type Department Care Team (Latest Contact Info) Description 03/01/2025 Travel Social History Tobacco Use Types Packs/Day [...] time in the past 12 m [facility], were you homeless or living in [...] drink first t mohamud in the morning (EYE-DATA ADMINISTRATOR) to steady your nerves or to get [...] Description 05/24/2025 1:40 PM EST Office Visit [facility] [address] [address] Lenore Cosme MD [address] [place] [address] 08/02/2025 1:40 PM EST Office Visit [facility] [address] [address] Lenore Cosme MD [address] [place] [address] documented as of this encounter [...] documented as of this encounter Care Teams Welder Helper Relationship Specialty Start Date End Date Az David MD [address] [place] [address] PCP - General 03/22/23 documented as of this encounter
--- OUTSIDE RECORDS SUMMARY | 2025-04-11 11:05 | XMS_ITS | Encounter Summary ---
Author Organization [employer] ([place], [place], [place], [place]) Address [address] [place] [address] Care Team Providers Care Rn Liaison Name Role Phone Monroe Félix Francisco RODRIGUEZ Primary Care Provider [phone] Encounter Details Date Type Department Care Team (Late st Contact Info) Description 07/25/2019 Transcribed Document [facility] [place] Family Medicine [address] [place] [address] ProviderMaria Esther MD [address] [place], [place] [address] Social History Tobacco Use Types Packs/Day Years Used Date Smoking Tobacco: Never Assessed Comments Unknown Sex and Gender Information Value Date Recorded Sex Assigned at Not on file Legal Sex Female 6:53 PM CDT Gender Identity Not on file Sexual Orientation Not on file documented as of this encounter Miscellaneous Notes * Cerner Conversion Note - Historical ProviderMD - 07/25/2019 4:47 PM CORK INSULATOR Patient: CORRIE SMITH [facility]: [id number] Age: 49 Years Sex: Female : 1970 Subjective She has no active physical complaints. She denies chest pain, palpitations, lightheadedness, dizziness, worsening shortness of breath, nausea, vomiting, abdominal pain or diarrhea. She denies worsening lower extremity edema. She reports that she is trying to quit smoking. -Her biggest complaint is that she has restless leg syndrome and she requests Requip. She reports that she typically takes 10 mg daily at bedtime Vital Signs T: 36.6 ??C TMIN: 36.6 ??C TMAX: 36.7 ??C HR: 76(Monitored) RR: 18 BP: 153/95 SpO2: 94% Oxygen Settings (Last) Oxygen Therapy Mode: Room air (07/25/19 23:09:00) Oxygen Flow Rate: 2 Liter/Min (07/21/19 06:15:00) Intake & Output Totals Last 24 Hours (7a-7a) Input Total: 1232.54 mL Output Total: 0 mL Balance: 1232.54 mL Physical Exam General: Alert, no distress, Thin, chronically ill-appearing Cardiovascular: S1-S2, regular rhythm, normal rate, 3/6 murmur Pulmonary: Lungs clear to auscultation bilaterally, no wheezes rales or rhonchi Gastrointestinal: Abdomen is soft, nontender, no guarding, nondistended Musculoskeletal:Thin muscle tone, no lower extremity edema Neuro/psych: Moves all extremities spontaneously, alert and oriented, thoughts are fluent and appropriate Skin: No lesions, rashes or ecchymoses Assessment and plan: Acute kidney injury versus chronic kidney disease Valvular heart disease Hypertension Tobacco use disorder Acute kidney injury versus chronic kidney disease: Reports good oral nutrition. She does not have edema. Her serum creatinine seems to be plateauing. I would like to avoid aggressive volume resuscitation in the setting of her symptomatically valvular heart disease. I have challenged her to have good oral nutrition in order to maintain her volume and renal perfusion. -I wonder if she has chronic kidney disease which was previously undiagnosed. -Renal ultrasound did not show severe cortical echogenicity. -Hopefully her clearance will improve soon. If she has chronic kidney disease been we can monitor and manage her kidney function in the perioperative setting. I'm reassured that her electrolytes are stable. She does not have peripheral edema. -She is anticipating valvular heart surgery later in the week. -If her serum creatinine were to worsen, then I would recommend maintenance IV fluids. Hypertension: Avoid IVA inhibitor, ARB or aggressive diuresis. She does not seem clinically volume overloaded. I'm encouraged that she is attempting to quit smoking. Mendoza Gallardo MD -Nephrology Note dictated with markedup recognition system Partner with Dr. Howell, Dr. Pantoja and Dr. Muniz Medications amLODIPine, 10 mg= 1 Tab, Oral, [...] 650 mg= 2 Tab, Oral, Q4H, PRN Electronically signed by Nir, [facility] Conversion Emulsion Operator Cerner at 10/28/2022 7:20 PM CDT documented in this encounter Plan of Treatment Upcoming Encounters Date Type Department Care Team (Late st Contact Info) Description 04/12/2025 7:30 AM EDT Hospital Encounter [facility] Operating Room 1 [place] [address] Bill Graham MD [address] [place] [address] 04/12/2025 7:30 AM EDT Anesthesia Event [facility] Operating Room [address] [place] [address] Lucio Szymanski MD [address] [place] [address] 04/12/2025 7:30 AM EDT - 04/12/2025 8:55 AM EDT Surgery [facility] Operating Room [address] [place] [address] Bill Graham MD [address] [place] [address] (LAPAROSCOPIC PERITONEAL DIALYSIS CATHETER INSERTION) Scheduled Procedures Name Priority Associated Diagnoses Date/Ti me LAPAROSCOPY, WITH PERITONEAL DIALYSIS CATHETER INSERTION Chronic kidney disease, stage V (HCC) 04/12/2025 7:30 AM EDT documented as of this encounter Visit Diagnoses Not on filedocumented in this encounter Care Teams Rn Liaison Relationship Specialty Start Date End Date Félix Monroe, HYDROTEL OPERATOR [address] [place] [address] PCP - General Nurse Practitioner 08/25/22 documented as of this encounter
--- OUTSIDE RECORDS SUMMARY | 2025-04-11 11:06 | XMS_ITS | Encounter Summary ---
Author Organization [employer] ([place], [place], [place], [place]) Address [address] [place] [address] Care Team Providers Care Pewter Finisher Name Role Phone Monroe Félix Francisco RODRIGUEZ Primary Care Provider [phone] Encounter Details Date Type Department Care Team (Late st Contact Info) Description 07/24/2019 Transcribed Document [facility] [place] Family Medicine [address] [place] [address] ProviderMaria Esther MD [address] [place] [address] Social History Tobacco Use Types Packs/Day Years Used Date Smoking Tobacco: Never Assessed Comments Unknown Sex and Gender Information Value Date Recorded Sex Assigned at Not on file Legal Sex Female 6:53 PM CDT Gender Identity Not on file Sexual Orientation Not on file documented as of this encounter Miscellaneous Notes * Cerner Conversion Note - Maria Esther Reyes MD - 07/24/2019 11:42 AM HISTOLOGIC AIDE PLEASE MODIFY BEFORE SIGNING CLINICAL DOCUMENTATION CLARIFICATION FORM: Dear : ___Mauricio Date : _07/24/2019 Please exercise your independent, professional judgment in responding to the clarification form. Clinical indicators are provided on the bottom of this form for your review Please check appropriate box(es): HEART FAILURE: A. ACUITY B. [ x ] Acute [ ] Acute on Chronic [ ] Chronic C. TYPE: [ ] Systolic / HFrEF [ x ] Diastolic / HFpEF [ ] Combined Systolic / Diastolic [ ] Other diagnosis [ ] Unable to determine In addition, please specify: Present on Admission (POA): [ x ] Yes [ ] No [ ] Unable to determine For continuity of documentation, please document condition throughout progress notes and discharge summary. Thank You. To be completed by CDI/Coding staff for physician review: Present Clinical Indicators - Signs / Symptoms / Labs Results and Location in Medical Record [ x ] Ejection Fraction =_50-55_ % 07/21/19 ECHO: Normal sized left ventricle. Moderate left ventricular hypertrophy. Visually estimated ejection fraction 50-55%. Abnormal systolic strain pattern. Abnormal diastolic function. Thickened mitral valve leaflets with appearance of rheumatic mitral disease. Severe mitral regurgitation. Mild mitral stenosis. Mild pulmonic stenosis. Severely Dilated left atrium. No masses or thrombi are seen. [ x ] Hypoxia 07/22/19 VS: O2 sat 93% room air [ ] [ x ] Elevated BNP 07/22/19 LAB: ProBNP-6,814 [ x ] Orthopnea / SOB / dyspnea 07/22/19 H&P ( Eros) [x ] Acute pulmonary edema 07/22/19 H&P ( Eros ) Present Risk Factors Results and Location in Medical Record [x ] History of heart disease: Severe MR, Valvular disease 07/20/19 H&P [ x ] History of CHF 07/20/19 H&P [x ] Acute condition: NSTEMI / acute pulmonary edema/ acute kidney injury 07/20/19 H&P Present Treatments Results and Location in Medical Record [ ] Administration of BB 07/21/19 MAR: Coreg 6.25 mg PO [ x ] Cardiac monitoring / telemetry/ECHO 07/20/19 Physician order [ x ] IV or PO diuretics 07/21/19 MAR: Bumex 1 mg IV / Spironolactone 50 mg PO [ x ] Cardiology Consult 07/20/19 Physician order [x ] CTV surgery consult 07/20/19 Physician order [ ] CDS Signature: _Sarah Robb RN CDS Phone #: _[phone] This is a permanent part of the Medical Record 2018 [facility] Updated: 9.2019 Electronically signed by Evaristo Loyola Conversion Professional Security Officer Cerner at 10/28/2022 7:10 PM CDT documented in this encounter Plan of Treatment Upcoming Encounters Date Type Department Care Team (Late st Contact Info) Description 04/12/2025 7:30 AM EDT Hospital Encounter [facility] Operating Room [address] [place] [address] Bill Graham MD [address] [facility] [address] [place] [address] 04/12/2025 7:30 AM EDT Anesthesia Event [facility] Operating Room [address] [place] [address] Lucio Szymanski MD [address] [place] [address] 04/12/2025 7:30 AM EDT - 04/12/2025 8:55 AM EDT Surgery [facility] Operating Room [address] [place] [address] [place] [address] [place] [address] [address] [place] [address] (LAPAROSCOPIC PERITONEAL DIALYSIS CATHETER INSERTION) Scheduled Procedures Name Priority Associated Diagnoses Date/Ti me LAPAROSCOPY, WITH PERITONEAL DIALYSIS CATHETER INSERTION Chronic kidney disease, stage V (HCC) 04/12/2025 7:30 AM EDT documented as of this encounter Visit Diagnoses Not on filedocumented in this encounter Care Teams Pewter Finisher Relationship Specialty Start Date End Date Félix Monroe, UPSETTER [address] [facility] [address] [place] [address] PCP - General Nurse Practitioner 08/25/22 documented as of this encounter
--- OUTSIDE RECORDS SUMMARY | 2025-04-11 11:06 | XMS_ITS | Encounter Summary ---
Author Organization [id number] ([place], [place], [place], [place]) Address [address] [address] Care Team Providers Care Wood Experimental Mechanic Name Role Phone Félix Monroe APRN Primary Care Provider [phone] Encounter Details Date Type Department Care Team (Late st Contact Info) Description 07/26/2019 Transcribed Document [facility] [place] Family Medicine [address] [place] [address] ProviderMaria Esther MD [address] [place], [place] [address] Social History Tobacco Use Types Packs/Day Years Used Date Smoking Tobacco: Never Assessed Comments Unknown Sex and Gender Information Value Date Recorded Sex Assigned at Not on file Legal Sex Female 6:53 PM CDT Gender Identity Not on file Sexual Orientation Not on file documented as of this encounter Miscellaneous Notes * Cerner Conversion Note - Maria Esther ProviderMD - 07/26/2019 8:59 AM MANAGER PET UM Authorization Entered On: 07/26/2019 8:59 EST Performed On: 07/26/2019 8:59 EST by Shantal Bernal Rn-Utilization Review Primary Insurance Authorization Authorization and Policy Numbers : Insurance 1 Health Plan: MEDICAID PENDING Policy Number: [id number] Authorization Number: Insurance Primary Name : Osvaldo XTF:[id number] Authorization Status-Primary : Awaiting callback Reference Number-Primary : [id number] Authorized Service Begin Date-Primary : 07/22/2019 EST Historical Authorization Comments-Primary : Comment 1: Per [facility] notes, patient has [place] Medicaid, per Page Policy number is [id number]. Submitted Inpt Auth on Availity with clinicals attahed. (ALETHEA MEYERS, Rn-Utilization Review 07/25/2019 11:43) Comment 2: call to [place] [employer] with name//ssn. patient is not active with [place] [employer] (Shantal Bernal, Rn-Utilization Review 07/24/2019 11:42) Comment 3: per star notes patient has [place] [employer] no ins id noted (Shantal Bernal, Rn-Utilization Review 07/24/2019 11:14) Comment 4: SELF PAY (ALETHEA MEYERS, Rn-Utilization Review 07/22/2019 13:34) Shantal Bernal, Rn-Utilization Review - 07/26/2019 8:59 EST Electronically signed by Nir [facility] Conversion Dam Operator Cerner at 10/28/2022 7:03 PM CDT documented in this encounter Plan of Treatment Upcoming Encounters Date Type Department Care Team (Late st Contact Info) Description 04/12/2025 7:30 AM EDT Hospital Encounter [facility] Operating Room 1 [place] [address] Bill Graham MD [address] [place] [address] 04/12/2025 7:30 AM EDT Anesthesia Event [facility] Operating Room 1 [place] [address] Lucio Szymanski MD [address] [place] [address] 04/12/2025 7:30 AM EDT - 04/12/2025 8:55 AM EDT Surgery [facility] Operating Room 1 [place] [address] Bill Graham MD [address] [place] [address] (LAPAROSCOPIC PERITONEAL DIALYSIS CATHETER INSERTION) Scheduled Procedures Name Priority Associated Diagnoses Date/Ti me LAPAROSCOPY, WITH PERITONEAL DIALYSIS CATHETER INSERTION Chronic kidney disease, stage V (HCC) 04/12/2025 7:30 AM EDT documented as of this encounter Visit Diagnoses Not on filedocumented in this encounter Care Teams Wood Experimental Mechanic Relationship Specialty Start Date End Date Félix Monroe, OVERHEAD GARAGE DOOR HANGER [address] [place] [address] PCP - General Nurse Practitioner 08/25/22 documented as of this encounter
--- OUTSIDE RECORDS SUMMARY | 2025-04-11 11:06 | XMS_ITS | Encounter Summary ---
Author Organization [employer] ([place], [place], [place], [place]) Address [address] [place] [address] Care Team Providers Care Iso Coordinator Name Role Phone Fer Félix Singh APRN Primary Care Provider [phone] Encounter Details Date Type Department Care Team (Late st Contact Info) Description 07/24/2019 Transcribed Document [facility] [place] [address] [place] [address] ProviderMaria Esther MD [address] [place], [place] [address] Social History Tobacco Use Types Packs/Day Years Used Date Smoking Tobacco: Never Assessed Comments Unknown Sex and Gender Information Value Date Recorded Sex Assigned at Not on file Legal Sex Female 6:53 PM CDT Gender Identity Not on file Sexual Orientation Not on file documented as of this encounter Miscellaneous Notes * Cerner Conversion Note - Maria Esther ProviderMD - 07/24/2019 11:42 AM GASOLINE ENGINE INSPECTOR UM Authorization Entered On: 07/24/2019 11:42 EST Performed On: 07/24/2019 11:42 EST by Shantal Bernal Rn-Utilization Review Primary Insurance Authorization Authorization and Policy Numbers : Insurance 1 Health Plan: MEDICAID PENDING Policy Number: [id number] Authorization Number: Insurance Primary Name : SELF PAY Authorized Service Begin Date-Primary : 07/22/2019 EST Authorization Comments-Primary : call to [facility] medicaid with name//ssn. patient is not active with [place] [employer] Historical Authorization Comments-Primary : Comment 1: per star notes patient has [place] [employer]icaid no ins id noted (Shantal Bernal, Rn-Utilization Review 07/24/2019 11:14) Comment 2: SELF PAY (ALETHEA MEYERS, Rn-Utilization Review 07/22/2019 13:34) Shantal Bernal, Rn-Utilization Review - 07/24/2019 11:42 EST Electronically signed by [facility], [facility] Conversion Director Broadcast Cerner at 10/28/2022 7:20 PM CDT documented in this encounter Plan of Treatment Upcoming Encounters Date Type Department Care Team (Late st Contact Info) Description 04/12/2025 7:30 AM EDT Hospital Encounter [facility] Operating Room 1 [place] [address] [place] [address] [place] [address] [place] [address] 04/12/2025 7:30 AM EDT Anesthesia Event [facility] Operating Room [address] [place] [address] Lucio Szymanski MD [address] [place] [address] 04/12/2025 7:30 AM EDT - 04/12/2025 8:55 AM EDT Surgery [facility] Operating Room [address] [place] [address] Bill Graham MD [address] [place] [address] (LAPAROSCOPIC PERITONEAL DIALYSIS CATHETER INSERTION) Scheduled Procedures Name Priority Associated Diagnoses Date/Ti me LAPAROSCOPY, WITH PERITONEAL DIALYSIS CATHETER INSERTION Chronic kidney disease, stage V (HCC) 04/12/2025 7:30 AM EDT documented as of this encounter Visit Diagnoses Not on filedocumented in this encounter Care Teams Iso Coordinator Relationship Specialty Start Date End Date Félix Monroe, CARPENTER BRIDGE [address] [facility] [address] [place] [address] PCP - General Nurse Practitioner 08/25/22 documented as of this encounter
--- OUTSIDE RECORDS SUMMARY | 2025-04-11 11:06 | XMS_ITS | Encounter Summary ---
Author Organization [employer] ([place], [place], [place], [place]) Address [address] [place] [address] Care Team Providers Care Ultra Sound Technician Name Role Phone Monroe Félix Francisco RODRIGUEZ Primary Care Provider [phone] Encounter Details Date Type Department Care Team (Late st Contact Info) Description 07/27/2019 Transcribed Document [facility] [place] Medicine [address] [place] [address] ProviderMaria Esther MD [address], [place] [id number] Social History Tobacco Use Types Packs/Day Years Used Date Smoking Tobacco: Never Assessed Comments Unknown Sex and Gender Information Value Date Recorded Sex Assigned at Not on file Legal Sex Female 6:53 PM CDT Gender Identity Not on file Sexual Orientation Not on file documented as of this encounter Miscellaneous Notes * Cerner Conversion Note - Maria Esther Reyes MD - 07/27/2019 4:25 PM AUTOMOBILE MECHANIC ASSISTANT Patient Education Materials Follows: Radial Site Care Refer to this sheet in the next [...] can I expect after the procedure? After your procedure, it is typical to have the following: ??? Bruising at the radial site that usually fades within 1?2 weeks. ??? Blood collecting in the tissue (hematoma) that may be painful to the touch. It should usually decrease in size and tenderness within 1?2 weeks. Follow these instructions at home: ??? Take medicines only as directed by your health care provider. ??? You may shower 24?48 hours after the procedure or as directed by your health care provider. Remove the bandage (dressing) and gently wash the site with plain soap and water. Pat the area dry with a clean towel. Do not rub the site, because this may cause bleeding. ??? Do not take baths, swim, or use a hot tub until your health care provider approves. ??? Check your insertion site every day for redness, swelling, or drainage. ??? Do not apply powder or lotion to the site. ??? Do not flex or bend the affected arm for 24 hours or as directed by your health care provider. ??? Do not push or pull heavy objects with the affected arm for 24 hours or as directed by your health care provider. ??? Do not lift over 10 lb (4.5 kg) for 5 days after your procedure or as directed by your health care provider. ??? Ask your health care provider when it is okay to: ? Return to work or school. ? Resume usual physical activities or sports. ? Resume sexual activity. ??? Do not drive home if you are discharged the same day as the procedure. Have someone else drive you. ??? You may drive 24 hours after the procedure unless otherwise instructed by your health care provider. ??? Do not operate machinery or power tools for 24 hours after the procedure. ??? If your procedure was done as an outpatient procedure, which means that you went home the same day as your procedure, a responsible adult should be with you for the first 24 hours after you arrive home. ??? Keep all follow-up visits as directed by your health care provider. This is important. Contact a health care provider if: ??? You have a fever. ??? You have chills. ??? You have increased bleeding from the radial site. Hold pressure on the site. Get help right away if: ??? You have unusual pain at the radial site. ??? You have redness, warmth, or swelling at the radial site. ??? You have drainage (other than a small amount of blood on the dressing) from the radial site. ??? The radial site is bleeding, and the bleeding does not stop after 30 minutes of holding steady pressure on the site. ??? Your arm or hand becomes pale, cool, tingly, or numb. This information is not intended to replace advice given to you by your health care provider. Make sure you discuss any questions you have with your health care provider. Document Released: 07/31/2011 Document Revised: 12/03/2016 Document Reviewed: 01/14/2015 [employer] Patient Education ? 2019 [employer]. Coronary Angiogram A coronary angiogram is an X-ray procedure that is used to examine the arteries in the heart. In this procedure, a dye (contrast dye) is injected through a long, thin tube (catheter). The catheter is inserted through the groin, wrist, or arm. The dye is injected into each artery, then X-rays are taken to show if there is a blockage in the arteries of the heart. This procedure can also show if you have valve disease or a disease of the aorta, and it can be used to check the overall function of your heart muscle. You may have a coronary angiogram if: ??? You are having chest pain, or other symptoms of angina, and you are at risk for heart disease. ??? You have an abnormal electrocardiogram (ECG) or stress test. ??? You have chest pain and heart failure. ??? You are having irregular heart rhythms. ??? You and your health care provider determine that the benefits of the test information outweigh the risks of the procedure. Let your health care provider know about: ??? Any allergies you have, including allergies to contrast dye. ??? All medicines you are taking, including vitamins, herbs, eye drops, creams, and saiw-vux-krlwwdm medicines. ??? Any problems you or family members have had with anesthetic medicines. ??? Any blood disorders you have. ??? Any surgeries you have had. ??? History of kidney problems or kidney failure. ??? Any medical conditions you have. ??? Whether you are or may be . What are the risks? Generally, this is a safe procedure. However, problems may occur, including: ??? Infection. ??? Allergic reaction to medicines or dyes that are used. ??? Bleeding from the access site or other locations. ??? Kidney injury, especially in people with impaired kidney function. ??? Stroke (rare). ??? Heart attack (rare). ??? Damage to other structures or organs. What happens before the procedure? Staying hydrated Follow instructions from your health care provider about hydration, which may include: ??? Up to 2 hours before the procedure ? you may continue to drink clear liquids, such as water, clear fruit juice, black coffee, and plain tea. Eating and drinking restrictions Follow instructions from your health care provider about eating and drinking, which may include: ??? 8 hours before the procedure ? stop eating heavy meals or foods such as meat, fried foods, or fatty foods. ??? 6 hours before the procedure ? stop eating light meals or foods, such as toast or cereal. ??? 2 hours before the procedure ? stop drinking clear liquids. General instructions ??? Ask your health care provider about: ? Changing or stopping your regular medicines. This is especially important if you are taking diabetes medicines or blood thinners. ? Taking medicines such as ibuprofen. These medicines can thin your blood. Do not take these medicines before your procedure if your health care provider instructs you not to, though aspirin may be recommended prior to coronary angiograms. ??? Plan to have someone take you home from the hospital or clinic. ??? You may need to have blood tests or X-rays done. What happens during the procedure? An IV tube will be inserted into one of your veins. ??? You will be given one or more of the following: ? A medicine to help you relax (sedative). ? A medicine to numb the area where the catheter will be inserted into an artery (local anesthetic). ??? To reduce your risk of infection: ? Your health care team will wash or sanitize their hands. ? Your skin will be washed with soap. ? Hair may be removed from the area where the catheter will be inserted. ??? You will be connected to a continuous ECG monitor. ??? The catheter will be inserted into an artery. The location may be in your groin, in your wrist, or in the fold of your arm (near your elbow). ??? A type of X-ray (fluoroscopy) will be used to help guide the catheter to the opening of the blood vessel that is being examined. ??? A dye will be injected into the catheter, and X-rays will be taken. The dye will help to show where any narrowing or blockages are located in the heart arteries. ??? Tell your health care provider if you have any chest pain or trouble breathing during the procedure. ??? If blockages are found, your health care provider may perform another procedure, such as inserting a coronary stent. The procedure may vary among health care providers and hospitals. What happens after the procedure? After the procedure, you will need to keep the area still for a few hours, or for as long as told by your health care provider. If the procedure is done through the groin, you will be instructed to not bend and not cross your legs. ??? The insertion site will be checked frequently. ??? The pulse in your foot or wrist will be checked frequently. ??? You may have additional blood tests, X-rays, and a test that records the electrical activity of your heart (ECG). ??? Do not drive for 24 hours if you were given a sedative. Summary ??? A coronary angiogram is an X-ray procedure that is used to look into the arteries in the heart. ??? During the procedure, a dye (contrast dye) is injected through a long, thin tube (catheter). The catheter is inserted through the groin, wrist, or arm. ??? Tell your health care provider about any allergies you have, including allergies to contrast dye. ??? After the procedure, you will need to keep the area still for a few hours, or for as long as told by your health care provider. This information is not intended to replace advice given to you by your health care provider. Make sure you discuss any questions you have with your health care provider. Document Released: 01/02/2004 Document Revised: 04/09/2017 Document Reviewed: 04/09/2017 [employer] Patient Education ? 2019 [employer] Moderate Conscious Sedation, Adult, Care After These instructions provide you with information about caring for yourself after your procedure. Your health care provider may also give you more specific instructions. Your treatment has been planned according to current medical practices, but problems sometimes occur. Call your health care provider if you have any problems or questions after your procedure. What can I expect after the procedure? After your procedure, it is common: ??? To feel sleepy for several hours. ??? To feel clumsy and have poor balance for several hours. ??? To have poor judgment for several hours. ??? To vomit if you eat too soon. Follow these instructions at home: For at least 24 hours after the procedure: ??? Do not: ? Participate in activities where you could fall or become injured. ? Drive. ? Use heavy machinery. ? Drink alcohol. ? Take sleeping pills or medicines that cause drowsiness. ? Make important decisions or sign legal documents. ? Take care of children on your own. ??? Rest. Eating and drinking ??? Follow the diet recommended by your health care provider. ??? If you vomit: ? Drink water, juice, or soup when you can drink without vomiting. ? Make sure you have little or no nausea before eating solid foods. General instructions ??? Have a responsible adult stay with you until you are awake and alert. ??? Take gist-bbs-pulvhon and prescription medicines only as told by your health care provider. ??? If you smoke, do not smoke without supervision. ??? Keep all follow-up visits as told by your health care provider. This is important. Contact a health care provider if: ??? You keep feeling nauseous or you keep vomiting. ??? You feel light-headed. ??? You develop a rash. ??? You have a fever. Get help right away if: ??? You have trouble breathing. This information is not intended to replace advice given to you by your health care provider. Make sure you discuss any questions you have with your health care provider. Document Released: 04/18/2014 Document Revised: 11/30/2016 Document Reviewed: 10/17/2016 [employer] Patient Education ? 2019 [employer] documented in this encounter Plan of Treatment Upcoming Encounters Date Type Department Care Team (Late st Contact Info) Description 04/12/2025 7:30 AM EDT Hospital Encounter [facility] Operating Room [address] [place] [id number] Bill Graham MD [address] [place] [address] [place] [address] 04/12/2025 7:30 AM EDT Anesthesia Event [facility] Operating Room [address] [place] [address] Lucio Szymanski MD [address] [place] [address] 04/12/2025 7:30 AM EDT - 04/12/2025 8:55 AM EDT Surgery [facility] Operating Room [address] [place] [id number] Bill Graham MD [address] [facility] [address] [place] [address] (LAPAROSCOPIC PERITONEAL DIALYSIS CATHETER INSERTION) Scheduled Procedures Name Priority Associated Diagnoses Date/Ti me LAPAROSCOPY, WITH PERITONEAL DIALYSIS CATHETER INSERTION Chronic kidney disease, stage V (HCC) 04/12/2025 7:30 AM EDT documented as of this encounter Visit Diagnoses Not on filedocumented in this encounter Care Teams Ultra Sound Technician Relationship Specialty Start Date End Date Félix Monroe, TELEVISION STATION MANAGER [address] [facility] [address] [place] [address] PCP - General Nurse Practitioner 08/25/22 documented as of this encounter
--- OUTSIDE RECORDS SUMMARY | 2025-04-11 11:06 | XMS_ITS | Encounter Summary ---
Author Organization [employer] ([place], [place], [place], [place]) Address [address] [address] Care Team Providers Care Industrial Maintenance Electrician Name Role Phone MonroeFélix APRN Primary Care Provider [phone] Encounter Details Date Type Department Care Team (Late st Contact Info) Description 07/24/2019 Transcribed Document [facility] [place] [address] [place] [address] ProviderMaria Esther MD [address], [place] [id number] Social History Tobacco Use Types Packs/Day Years Used Date Smoking Tobacco: Never Assessed Comments Unknown Sex and Gender Information Value Date Recorded Sex Assigned at Not on file Legal Sex Female 6:53 PM CDT Gender Identity Not on file Sexual Orientation Not on file documented as of this encounter Miscellaneous Notes * Cerner Conversion Note - Maria Esther Reyes MD - 07/24/2019 9:34 PM GEOSPATIAL IMAGE ANALYST Patient: [facility]: [id number] Age: 49 Years Sex: Female : 1970 Subjective No pain or dyspnea. Understands plans for valve surgery. Family present and questions addressed. Vital Signs T: 36.6 ??C TMIN: 36.3 ??C TMAX: 36.7 ??C HR: 75(Monitored) RR: 18 BP: 159/96 SpO2: 92% Oxygen Settings (Last) Oxygen Therapy Mode: Room air (07/24/19 22:00:00) Oxygen Flow Rate: 2 Liter/Min (07/21/19 06:15:00) Intake & Output Totals Last 24 Hours (7a-7a) Input Total: 1177.99 mL Output Total: 0 mL Balance: 1177.99 mL Physical Exam General: no acute distress Neurologic: Awake, alert, and oriented X3, Moves all extremities. Eye: Pupils reactive and equal bilaterally. OP clear. Neck: No carotid bruits, no JVD, no lymphadenopathy Lungs: Clear to auscultation bilaterally. No wheezes. Heart: Regular rate and rhythm. No murmurs. Abdomen: Soft, non-tender, non-distended, normal bowel sounds, no masses Extremities: No edema. Full range of motion where tested. Skin: No rashes or lesions Assessment/Plan Severe MR Planning valve surgery on Wed. NSTEMI Stable Acute Diastolic Congestive Heart Failure POA LVEF = 50 % Was not placed on ACEI or ARB due to renal failure Acute pulmonary edema, 2/2 severe MR Acute kidney injury, likely prerenal. Unknown baseline Cr. Not improved. Plans per Renal. Anemia, - normocytic, normochromic Thrombocytopenia - Plt 145, continue to monitor while on antiplatelets and [...] Test Result Date/Time Sodium Level 140 mmol/L 07/24/2019 04:00 EST Potassium Level 3.7 mmol/L 07/24/2019 04:00 EST Chloride Level 107 mmol/L 07/24/2019 04:00 EST Carbon Dioxide Level 31 mmol/L 07/24/2019 04:00 EST Anion Gap 6 (Low) 07/24/2019 04:00 EST Glucose Level 97 mg/dL 07/24/2019 04:00 EST Blood Urea Nitrogen 27 mg/dL (High) 07/24/2019 04:00 EST Creatinine Level 2.50 mg/dL (High) 07/24/2019 04:00 EST eGFR 25 mL/min/1.73m2 (Low) 07/24/2019 04:00 EST eGFR NonAfrican 20 mL/min/1.73m2 (Low) 07/24/2019 04:00 EST Bun/Creatinine 10.8 07/24/2019 04:00 EST Calcium Level 8.9 mg/dL 07/24/2019 04:00 EST WBC 5.6 K/uL 07/24/2019 04:00 EST RBC 3.70 Million/uL (Low) 07/24/2019 04:00 EST Hgb 11.0 g/dL (Low) 07/24/2019 04:00 EST Hct 34.0 % (Low) 07/24/2019 04:00 EST MCV 91.9 fL 07/24/2019 04:00 EST MCH 29.7 pg 07/24/2019 04:00 EST MCHC 32.4 Gram/dL 07/24/2019 04:00 EST Platelet Count 145 K/uL (Low) 07/24/2019 04:00 EST MPV 13.4 fL (High) 07/24/2019 04:00 EST RDW 13.0 % 07/24/2019 04:00 EST Neut % 51.4 % 07/24/2019 04:00 EST Neut # 2.90 K/uL 07/24/2019 04:00 EST Lymph % 36.2 % 07/24/2019 04:00 EST Lymph # 2.04 x10(3)/uL 07/24/2019 04:00 EST Davidson % 8.3 % 07/24/2019 04:00 EST Davidson # 0.47 K/uL 07/24/2019 04:00 EST Eos % 3.0 % 07/24/2019 04:00 EST Eos # 0.17 x10(3)/uL 07/24/2019 04:00 EST Baso % 0.9 % 07/24/2019 04:00 EST Baso # 0.05 x10(3)/uL 07/24/2019 04:00 EST Slide Review No 07/24/2019 04:00 EST IG# 0.01 x10(3)/uL 07/24/2019 04:00 EST IG% 0.20 % 07/24/2019 04:00 EST PTT Heparin 60.5 Second(s) 07/24/2019 04:00 EST Electronically signed by Nir, [facility] Conversion Rn Camp Cerner at 10/28/2022 7:20 PM CDT documented in this encounter Plan of Treatment Upcoming Encounters Date Type Department Care Team (Late st Contact Info) Description 04/12/2025 7:30 AM EDT Hospital Encounter [facility] Operating Room 1 [place] [address] Bill Graham MD [address] [place] [address] [address] 04/12/2025 7:30 AM EDT Anesthesia Event [facility] Operating Room 1 [place] [address] Lucio Szymanski MD [address] [place] [address] 04/12/2025 7:30 AM EDT - 04/12/2025 8:55 AM EDT Surgery [facility] Operating Room 1 [place] [address] Bill Graham MD [address] [place] [address] [address] (LAPAROSCOPIC PERITONEAL DIALYSIS CATHETER INSERTION) Scheduled Procedures Name Priority Associated Diagnoses Date/Ti me LAPAROSCOPY, WITH PERITONEAL DIALYSIS CATHETER INSERTION Chronic kidney disease, stage V (HCC) 04/12/2025 7:30 AM EDT documented as of this encounter Visit Diagnoses Not on filedocumented in this encounter Care Teams Industrial Maintenance Electrician Relationship Specialty Start Date End Date Félix Monroe, MAKING LINE WORKER [address] [facility] [address] [place] [address] PCP - General Nurse Practitioner 08/25/22 documented as of this encounter
--- OUTSIDE RECORDS SUMMARY | 2025-04-11 11:06 | XMS_ITS | Encounter Summary ---
Author Organization [employer] ([place], [place], [place], [place]) Address [address] [address] Care Team Providers Care Patented Hogshead Assembler Name Role Phone Monroe Félix Francisco RODRIGUEZ Primary Care Provider [phone] Encounter Details Date Type Department Care Team (Late st Contact Info) Description 07/26/2019 Transcribed Document [facility] [place] [address] [place] [address] ProviderMaria Esther MD [address], [place] [address] Social History Tobacco Use Types Packs/Day Years Used Date Smoking Tobacco: Never Assessed Comments Unknown Sex and Gender Information Value Date Recorded Sex Assigned at Not on file Legal Sex Female 6:53 PM CDT Gender Identity Not on file Sexual Orientation Not on file documented as of this encounter Miscellaneous Notes * Cerner Conversion Note - Maria Esther ProviderMD - 07/26/2019 5:14 PM GROUP SALES REPRESENTATIVE On Going Discharge Planning Entered On: 07/26/2019 17:16 EST Performed On: 07/26/2019 17:14 EST by KAREL CAMPBELL RN-Assistant Speech Language PathologistHigh Pressure Boiler Operator Progress Note Discharge Arrangements : Patient [...] Did you Attend Multidisciplinary Rounds? : Yes KAREL CAMPBELL RN-Assistant Speech Language Pathologist - 07/26/2019 17:14 EST Narrative Progress Note Narrative Progress Note : CM reviewed chart. Pt is scheduled for a heart cath tomorrow. Cm will continue to follow for needs. Historical Progress Note : HD#3 Clinical chart reviewed. Waiting on nephrology clearance for LHC and probable valve replacement surgery. CM will continue to follow for discharge planning needs. Yolanda Ramsey RN-Flow Floor Attendant - 07/25/19 15:47:19 49 year old female with PMH valvular heart disease, CHF, COPD with ongoing tobacco abuse [facility] with worsening SOB. Patient hospitalized 7 years ago for leaking valve , echo - severe mitral regurg. BNP 78759. Nephrology consult: CKD stage III. Plan: LHC when renal function allows. Patient tentively scheduled for surgery on Wednesday. CM will continue to follow for discharge planning. Yolanda Ramsey RN-Flow Floor Attendant - 07/24/19 16:26:17 KAREL CAMPBELL RN-Assistant Speech Language Pathologist - 07/26/2019 17:14 EST Electronically signed by [facility] Conversion Clinical Education Assistant Cerner at 10/28/2022 7:26 PM CDT documented in this encounter Plan of Treatment Upcoming Encounters Date Type Department Care Team (Late st Contact Info) Description 04/12/2025 7:30 AM EDT Hospital Encounter [facility] Operating Room 1 [place] [address] Bill Graham MD [address] [place] [address] [address] [place] [address] 04/12/2025 7:30 AM EDT Anesthesia Event [facility] Operating Room [address] [place] [address] Lucio Szymanski MD [address] [place] [address] 04/12/2025 7:30 AM EDT - 04/12/2025 8:55 AM EDT Surgery [facility] Operating Room [address] [place] [address] Bill Graham MD [address] [facility] [address] [place], [place] [id number] (LAPAROSCOPIC PERITONEAL DIALYSIS CATHETER INSERTION) Scheduled Procedures Name Priority Associated Diagnoses Date/Ti me LAPAROSCOPY, WITH PERITONEAL DIALYSIS CATHETER INSERTION Chronic kidney disease, stage V (HCC) 04/12/2025 7:30 AM EDT documented as of this encounter Visit Diagnoses Not on filedocumented in this encounter Care Teams Patented Hogshead Assembler Relationship Specialty Start Date End Date Félix Monroe, SEX CRIMES DETECTIVE [address] [facility] [address] [place] [address] PCP - General Nurse Practitioner 08/25/22 documented as of this encounter
--- OUTSIDE RECORDS SUMMARY | 2025-04-11 11:06 | XMS_ITS | Encounter Summary ---
Author Organization [employer] ([place], [place], [place], [place]) Address [address] [place] [address] Care Team Providers Care Autocad Technician Name Role Phone Félix Monroe APRN Primary Care Provider [phone] Encounter Details Date Type Department Care Team (Late st Contact Info) Description 07/26/2019 Transcribed Document [facility] [place] [address] [place] [address] ProviderMaria Esther MD [address] [place], [place] [address] Social History Tobacco Use Types Packs/Day Years Used Date Smoking Tobacco: Never Assessed Comments Unknown Sex and Gender Information Value Date Recorded Sex Assigned at Not on file Legal Sex Female 6:53 PM CDT Gender Identity Not on file Sexual Orientation Not on file documented as of this encounter Miscellaneous Notes * Cerner Conversion Note - Maria Esther ProviderMD - 07/26/2019 1:36 PM BUSINESS ENGLISH INSTRUCTOR UM Authorization Entered On: 07/26/2019 13:38 EST Performed On: 07/26/2019 13:36 EST by Shantal Bernal Rn-Utilization Review Primary Insurance Authorization Authorization and Policy Numbers : Insurance 1 Health Plan: MEDICAID PENDING Policy Number: [id number] Authorization Number: Insurance Primary Name : Osvaldo LONG:[id number] Authorization Status-Primary : Admit approved Reference Number-Primary : [id number] Authorization Number-Primary : [id number] Number of Days Authorized-Primary : 6 Day(s) Authorized Service Begin Date-Primary : 2019 EST Authorized Service End Date-Primary : 07/26/2019 EST Authorization Comments-Primary : approved for ip per radha. nrd 07/27 Historical Authorization Comments-Primary : Comment 1: Per Star notes, patient has [place] Medicaid, per Page Policy number is [id number]. Submitted Inpt Auth on Availity with clinicals [...] 13:34) Shantal Bernal, Rn-Utilization Review - 07/26/2019 13:36 EST Electronically signed by Nir [facility] Conversion Bakery Manager Cerner at 10/28/2022 7:00 PM CDT documented in this encounter Plan of Treatment Upcoming Encounters Date Type Department Care Team (Late st Contact Info) Description 04/12/2025 7:30 AM EDT Hospital Encounter [facility] Operating Room 1 [place] [phone] Bill Graham MD [address] [place] [address] 04/12/2025 7:30 AM EDT Anesthesia Event [facility] Operating Room 1 [place] [phone] Lucio Szymanski MD [address] [place] [address] 04/12/2025 7:30 AM EDT - 04/12/2025 8:55 AM EDT Surgery [facility] Operating Room 1 [place] [address] Bill Graham MD [address] [place] [address] (LAPAROSCOPIC PERITONEAL DIALYSIS CATHETER INSERTION) Scheduled Procedures Name Priority Associated Diagnoses Date/Ti me LAPAROSCOPY, WITH PERITONEAL DIALYSIS CATHETER INSERTION Chronic kidney disease, stage V (HCC) 04/12/2025 7:30 AM EDT documented as of this encounter Visit Diagnoses Not on filedocumented in this encounter Care Teams Autocad Technician Relationship Specialty Start Date End Date Félix Monroe, EMPLOYEE'S REPRESENTATIVE [address] [facility] [address] [place] [address] PCP - General Nurse Practitioner 08/25/22 documented as of this encounter
--- OUTSIDE RECORDS SUMMARY | 2025-04-11 11:06 | XMS_ITS | Encounter Summary ---
Author Organization [employer] ([place], [place], [place], [place]) Address [address] [place] [address] Care Team Providers Care Family Mediator Name Role Phone Ramos Monroeie Francisco RODRIGUEZ Primary Care Provider [phone] Encounter Details Date Type Department Care Team (Late st Contact Info) Description 07/24/[address] [facility] [place] [address] [place] [address] ProviderMaria Esther MD [address] [place] [address] Social History Tobacco Use Types Packs/Day Years Used Date Smoking Tobacco: Never Assessed Comments Unknown Sex and Gender Information Value Date Recorded Sex Assigned at Not on file Legal Sex Female 6:53 PM CDT Gender Identity Not on file Sexual Orientation Not on file documented as of this encounter Miscellaneous Notes * Cerner Conversion Note - Maria Esther Reyes MD - 07/24/2019 11:38 AM CUTTING AND BONING SUPERVISOR Patient: CORRIE SMITH Age: 49 years Sex: [...] past 15 years. She recently presented to [facility] with worsening shortness of breath. She stopped taking her cardiac medication 4 months ago he lost her insurance. At the ER at [place] she had a transthoracic echocardiogram showed severe MR. She also had an elevated pro BNP of 31,000 as well as an elevated troponin at 0.85. The patient was given a loading dose of aspirin and Brilinta, given nitroglycerin and intravenous Lasix, and was started on a heparin drip and then was transferred to [facility] Dr. Александр Valdez has been asked [...] of Lap Band Procedure POSTOP DX: Subjective \: worried about surgery Health Status Allergies: Allergic Reactions (Selected) Severity Not Documented Codeine- No reactions were documented. Current medications.Problem list. Objective VS/Measurements Vital Measurements 07/24/2019 9:31 EST Systolic Blood Pressure 135 mmHg Diastolic Blood Pressure 85 mmHg Heart Rate Monitored 75 bpm 07/24/2019 8:43 EST Temperature, Fahrenheit 97.9 Deg F Oxygen Saturation 97 % Oxygen Therapy Mode Room air General: Alert and oriented. Respiratory: Lungs are clear to auscultation. Cardiovascular: Normal rate, Regular rhythm. Gastrointestinal: Soft, Non-tender. Results Review General results Today's results 07/24/2019 4:00 EST Sodium Level 140 mmol/L Potassium Level 3.7 mmol/L Chloride Level 107 mmol/L Carbon Dioxide Level 31 mmol/L Anion Gap 6 LOW Glucose Level 97 mg/dL Blood Urea Nitrogen 27 mg/dL HI Creatinine Level 2.50 mg/dL HI eGFR 25 mL/min/1.73m2 LOW eGFR NonAfrican 20 mL/min/1.73m2 LOW Bun/Creatinine 10.8 Calcium Level 8.9 mg/dL WBC 5.6 K/uL RBC 3.70 Million/uL LOW Hgb 11.0 g/dL LOW Hct 34.0 % LOW MCV 91.9 fL MCH 29.7 pg MCHC 32.4 Gram/dL Platelet Count 145 K/uL LOW Interpretation: No Radiology Results Found Impression and Plan VTE STATUS>>SCDS Tobacco Cessation discussed with patient on 07/22/19 Mitral valve replacement hopefully Wednesday or Wednesday by Dr. Valdez. (Got Brilinta at [facility] >2 days ago) Creatinine 2.2 (2.0 yesterday) [...] D/W pt. and family - they understand. documented in this encounter Plan of Treatment Upcoming Encounters Date Type Department Care Team (Late st Contact Info) Description 04/12/2025 7:30 AM EDT Hospital Encounter [facility] Operating Room 1 [place] [address] Bill Graham MD [address] [place] [address] [place] [address] 04/12/2025 7:30 AM EDT Anesthesia Event [facility] Operating Room 1 [place] [address] Lucio Szymanski MD [address] [place] [address] 04/12/2025 7:30 AM EDT - 04/12/2025 8:55 AM EDT Surgery [facility] Operating Room 1 [place] [address] Bill Graham MD [address] [facility] [address] [place] [address] (LAPAROSCOPIC PERITONEAL DIALYSIS CATHETER INSERTION) Scheduled Procedures Name Priority Associated Diagnoses Date/Ti me LAPAROSCOPY, WITH PERITONEAL DIALYSIS CATHETER INSERTION Chronic kidney disease, stage V (HCC) 04/12/2025 7:30 AM EDT documented as of this encounter Visit Diagnoses Not on filedocumented in this encounter Care Teams Family Mediator Relationship Specialty Start Date End Date Félix Monroe, LEAD REFINER [address] [facility] [address] [place] [address] PCP - General Nurse Practitioner 08/25/22 documented as of this encounter
--- OUTSIDE RECORDS SUMMARY | 2025-04-11 11:06 | XMS_ITS | Encounter Summary ---
Author Organization [employer] ([place], [place], [place], [place]) Address [address] [address] Care Team Providers Care Soap Inspector Name Role Phone Monroe Félix Francisco RODRIGUEZ Primary Care Provider [phone] Encounter Details Date Type Department Care Team (Late st Contact Info) Description 08/29/2019 Transcribed Document [facility] [place] [address] [place] [address] ProviderMaria Esther MD [address] [place], [place] [address] Social History Tobacco Use Types Packs/Day Years Used Date Smoking Tobacco: Never Assessed Comments Unknown Sex and Gender Information Value Date Recorded Sex Assigned at Not on file Legal Sex Female 6:53 PM CDT Gender Identity Not on file Sexual Orientation Not on file documented as of this encounter Miscellaneous Notes * Cerner Conversion Note - Maria Esther ProviderMD - 08/29/2019 10:17 AM WELL SERVICE DERRICK WORKER Pain Assessment Entered On: 09/04/2019 2:59 EST Performed On: 09/03/2019 22:29 EST by Latia Gonzalez RN Intervention Information: acetaminophen-HYDROcodone Performed by Latia Gonzalez RN on 09/03/2019 21:29:00 EST acetaminophen-HYDROcodone,2Tab Oral,Pain (Moderate 4-6) Pain Assessment Pain Assessment : Follow-up assessment Pain Scale Goal : 4 Pain Scale Used : 0-10 Scale Latia Gonzalez RN - 09/04/2019 2:59 EST Pain Scale Intensity : 0 Latia Gonzalez RN - 09/04/2019 2:59 EST Image 4 - Images currently included in the form version of this document have not been included in the text rendition version of the form. documented in this encounter Plan of Treatment Upcoming Encounters Date Type Department Care Team (Late st Contact Info) Description 04/12/2025 7:30 AM EDT Hospital Encounter [facility] Operating Room 1 [place] [address] Bill Graham MD [address] [place] [address] 04/12/2025 7:30 AM EDT Anesthesia Event [facility] Operating Room 1 [place] [address] Lucio Szymanski MD [address] [place] [address] 04/12/2025 7:30 AM EDT - 04/12/2025 8:[address] [facility] Operating Room 1 [place] [address] Bill Graham MD [address] [place] [address] (LAPAROSCOPIC PERITONEAL DIALYSIS CATHETER INSERTION) Scheduled Procedures Name Priority Associated Diagnoses Date/Ti me LAPAROSCOPY, WITH PERITONEAL DIALYSIS CATHETER INSERTION Chronic kidney disease, stage V (HCC) 04/12/2025 7:30 AM EDT documented as of this encounter Visit Diagnoses Not on filedocumented in this encounter Care Teams Soap Inspector Relationship Specialty Start Date End Date Félix Monreo, ALL SOURCE COLLECTION MANAGER [address] [facility] [address] [place] [address] PCP - General Nurse Practitioner 08/25/22 documented as of this encounter
--- OUTSIDE RECORDS SUMMARY | 2025-04-11 11:06 | XMS_ITS | Encounter Summary ---
Author Organization [employer] ([place], [place], [place], [place]) Address [address] [address] Care Team Providers Care Manager Of Information Name Role Phone MonroeRamosie Francisco RODRIGUEZ Primary Care Provider [phone] Encounter Details Date Type Department Care Team (Late st Contact Info) Description 07/26/2019 Transcribed Document [facility] [place] [address] [place] [address] ProviderMaria Esther MD [address] [place], [place] [address] Social History Tobacco Use Types Packs/Day Years Used Date Smoking Tobacco: Never Assessed Comments Unknown Sex and Gender Information Value Date Recorded Sex Assigned at Not on file Legal Sex Female 6:53 PM CDT Gender Identity Not on file Sexual Orientation Not on file documented as of this encounter Miscellaneous Notes * Cerner Conversion Note - Maria Esther ProviderMD - 07/26/2019 11:11 PM PRACTICE ARCHITECT Patient: CORRIE SMITH [facility]: [id number] Age: 49 Years Sex: Female : 1970 Subjective She feels fine. She would like to go home. She understands that she is scheduled to undergo cardiac catheterization. She denies difficulty with urination. She denies worsening shortness of breath or chest pain. Vital Signs T: 36.6 ??C TMIN: 36.4 ??C TMAX: 36.6 ??C HR: 83(Monitored) RR: 16 BP: 158/99 SpO2: 98% Oxygen Settings (Last) Oxygen Therapy Mode: Room air (07/26/19 22:15:00) Oxygen Flow Rate: 2 Liter/Min (07/21/19 06:15:00) Intake & Output Totals Last 24 Hours (7a-7a) Input Total: 547.22 mL Output Total: 1100 mL Balance: -552.78 mL Physical Exam General: Alert, no distress, Thin, chronically ill-appearing Cardiovascular: S1-S2, regular rhythm, normal rate Pulmonary: Lungs clear to auscultation bilaterally, no wheezes rales or rhonchi Gastrointestinal: Abdomen is soft, nontender, no guarding, nondistended Genitourinary: No CVA tenderness Musculoskeletal: Thin muscle tone, no lower extremity edema Neuro/psych: Moves all extremities spontaneously, alert and oriented, thoughts are fluent and appropriate Skin: No lesions, rashes or ecchymoses Assessment and plan: Valvular heart disease Hypertension Probable chronic kidney disease stage 4 Chronic kidney disease stage IV: I have had a Brandyn discussion with the patient regarding her lack of renal recovery despite supportive care. She is undergoing a cardiovascular evaluation for valvular heart disease and possible atherosclerotic disease. -She is scheduled to undergo cardiac catheterization to evaluate for coronary artery disease. This is part of her preoperative evaluation for her valvular heart surgery. -We have discussed risk of contrast-induced nephropathy in the setting of her probable chronic kidney disease. -We will administer IV fluids with normal saline at 60 cc/h in order to prophylax against contrast-induced nephropathy. -We will continue to monitor her clearance, urine output and electrolytes. -The patient is energetic about discharge. -If there are no immediate complications of cardiac catheterization, that she would be okay for discharge from a nephrology standpoint with close follow-up in nephrology clinic for monitoring for worsening kidney injury. She will also need monitoring for resolution of acute kidney injury versus management of chronic kidney disease. -If she is discharged, she can have a basic metabolic panel collected on WednesdayJuly 31 and follow-up in my office for management of her kidney function. Hopefully she can have some renal recovery and avoid contrast-induced nephropathy injury. I have discussed that she is at risk to have contrast-induced nephropathy and this can be associated with further acute kidney injury. She understands this. Mendoza Gallardo MD -Nephrology Note dictated with [employer] voice recognition system Partner with Dr. Howell, [...] release, 1 Patch, TransDermal, Daily Normal Saline 1,000 mL, 1000 mL, IntraVENous Normal Saline Flush, 10 mL, IV Push, Q12H Normal Saline Flush, 10 mL, IV Push, See Comment, PRN Protonix, 40 mg= 1 Tab, Oral, Daily Requip, 1 mg= 1 Tab, Oral, At Bedtime Tylenol, 650 mg= 2 Tab, Oral, Q4H, PRN Lab Results Test Name Test Result Date/Time Sodium Level 139 mmol/L 07/27/2019 02:19 EST Sodium Level 139 mmol/L 07/26/2019 06:25 EST Potassium Level 3.5 mmol/L 07/27/2019 02:19 EST Potassium Level 3.9 mmol/L 07/26/2019 06:25 EST Chloride Level 108 mmol/L 07/27/2019 02:19 EST Chloride Level 108 mmol/L 07/26/2019 06:25 EST Carbon Dioxide Level 27 mmol/L 07/27/2019 02:19 EST Carbon Dioxide Level 27 mmol/L 07/26/2019 06:25 EST Anion Gap 8 (Low) 07/27/2019 02:19 EST Anion Gap 8 (Low) 07/26/2019 06:25 EST Glucose Level 115 mg/dL (High) 07/27/2019 02:19 EST Glucose Level 99 mg/dL 07/26/2019 06:25 EST Blood Urea Nitrogen 19 mg/dL 07/27/2019 02:19 EST Blood Urea Nitrogen 20 mg/dL 07/26/2019 06:25 EST Creatinine Level 2.10 mg/dL (High) 07/27/2019 02:19 EST Creatinine Level 2.20 mg/dL (High) 07/26/2019 06:25 EST eGFR 30 mL/min/1.73m2 (Low) 07/27/2019 02:19 EST eGFR 29 mL/min/1.73m2 (Low) 07/26/2019 06:25 EST eGFR NonAfrican 25 mL/min/1.73m2 (Low) 07/27/2019 02:19 EST eGFR NonAfrican 24 mL/min/1.73m2 (Low) 07/26/2019 06:25 EST Bun/Creatinine 9.0 07/27/2019 02:19 EST Bun/Creatinine 8.7 07/26/2019 06:25 EST Calcium Level 9.0 mg/dL 07/27/2019 02:19 EST Calcium Level 9.2 mg/dL 07/26/2019 06:25 EST WBC 8.3 K/uL 07/27/2019 02:19 EST WBC 8.1 K/uL 07/26/2019 06:25 EST RBC 3.75 Million/uL (Low) 07/27/2019 02:19 EST RBC 3.92 Million/uL (Low) 07/26/2019 06:25 EST Hgb 11.4 g/dL 07/27/2019 02:19 EST Hgb 11.8 g/dL 07/26/2019 06:25 EST Hct 34.3 % 07/27/2019 02:19 EST Hct 35.7 % 07/26/2019 06:25 EST MCV 91.5 fL 07/27/2019 02:19 EST MCV 91.1 fL 07/26/2019 06:25 EST MCH 30.4 pg 07/27/2019 02:19 EST MCH 30.1 pg 07/26/2019 06:25 EST MCHC 33.2 Gram/dL 07/27/2019 02:19 EST MCHC 33.1 Gram/dL 07/26/2019 06:25 EST Platelet Count 145 K/uL (Low) 07/27/2019 02:19 EST Platelet Count 149 K/uL (Low) 07/26/2019 06:25 EST MPV 13.9 fL (High) 07/27/2019 02:19 EST MPV 14.6 fL (High) 07/26/2019 06:25 EST RDW 13.2 % 07/27/2019 02:19 EST RDW 13.1 % 07/26/2019 06:25 EST Neut % 63.5 % 07/26/2019 06:25 EST Neut # 5.13 K/uL 07/26/2019 06:25 EST Lymph % 25.7 % 07/26/2019 06:25 EST Lymph # 2.07 x10(3)/uL 07/26/2019 06:25 EST [place] % 7.1 % 07/26/2019 06:25 EST [place] # 0.57 K/uL 07/26/2019 06:25 EST Eos % 2.6 % 07/26/2019 06:25 EST Eos # 0.21 x10(3)/uL 07/26/2019 06:25 EST Baso % 0.6 % 07/26/2019 06:25 EST Baso # 0.05 x10(3)/uL 07/26/2019 06:25 EST Slide Review No 07/27/2019 02:19 EST Slide Review No 07/26/2019 06:25 EST IG# 0.04 x10(3)/uL 07/26/2019 06:25 EST IG% 0.50 % 07/26/2019 06:25 EST PTT Heparin 52.3 Second(s) 07/27/2019 02:29 EST PTT Heparin 54.4 Second(s) 07/26/2019 06:25 EST Electronically signed by [facility], [facility] Conversion Produce Department Manager Cerner at 10/28/2022 7:04 PM CDT documented in this encounter Plan of Treatment Upcoming Encounters Date Type Department Care Team (Late st Contact Info) Description 04/12/2025 7:30 AM EDT Hospital Encounter [facility] Operating Room 1 [place] [phone] Bill Graham MD [address] [place] [address] [address] [place] [address] 04/12/2025 7:30 AM EDT Anesthesia Event [facility] Operating Room 1 [place] [phone] Lucio Szymanski MD [address] [place] [address] 04/12/2025 7:30 AM EDT - 04/12/2025 8:55 AM EDT Surgery [facility] Operating Room 1 [place] [address] Bill Graham MD [address] [facility] [address] [place] [address] (LAPAROSCOPIC PERITONEAL DIALYSIS CATHETER INSERTION) Scheduled Procedures Name Priority Associated Diagnoses Date/Ti me LAPAROSCOPY, WITH PERITONEAL DIALYSIS CATHETER INSERTION Chronic kidney disease, stage V (HCC) 04/12/2025 7:30 AM EDT documented as of this encounter Visit Diagnoses Not on filedocumented in this encounter Care Teams Manager Of Information Relationship Specialty Start Date End Date Félix Monroe, INVESTIGATOR CLAIMS [address] [facility] [address] [place] [address] PCP - General Nurse Practitioner 08/25/22 documented as of this encounter
--- OUTSIDE RECORDS SUMMARY | 2025-04-11 11:06 | XMS_ITS | Encounter Summary ---
Author Organization [employer] ([place], [place], [place], [place]) Address [address] [place] [address] Care Team Providers Care Locate Technician Name Role Phone MonroeFélix APRN Primary Care Provider [phone] Encounter Details Date Type Department Care Team (Late st Contact Info) Description 07/26/2019 Transcribed Document [facility] [place] Family Medicine [address] [place] [address] ProviderMaria Esther MD [address] [place], [place] [address] Social History Tobacco Use Types Packs/Day Years Used Date Smoking Tobacco: Never Assessed Comments Unknown Sex and Gender Information Value Date Recorded Sex Assigned at Not on file Legal Sex Female 6:53 PM CDT Gender Identity Not on file Sexual Orientation Not on file documented as of this encounter Miscellaneous Notes * Cerner Conversion Note - Maria Esther Reyes MD - 07/26/2019 10:07 PM OUTSIDE MACHINIST APPRENTICE Patient: CORRIE SMITH [facility]: [id number] Age: 49 Years Sex: Female : 1970 Subjective No pain or dyspnea. Aware of plans. Vital Signs T: 36.4 ??C TMIN: 36.4 ??C TMAX: 36.6 ??C HR: 75 RR: 16 BP: 155/100 SpO2: 95% Oxygen Settings (Last) Oxygen Therapy Mode: Room air (07/26/19 08:12:00) Oxygen Flow Rate: 2 Liter/Min (07/21/19 06:15:00) Intake & Output Totals Last 24 Hours (7a-7a) Input Total: 1232.54 mL Output Total: 0 mL Balance: 1232.54 mL Physical Exam General: no acute distress Neurologic: Awake, alert, and oriented X3, Moves all extremities. Eye: Pupils reactive and equal bilaterally. OP clear. Neck: No carotid bruits, no JVD, no lymphadenopathy Lungs: Clear to auscultation bilaterally. No wheezes. Heart: Regular rate and rhythm. 2/6 SM. Abdomen: Soft, non-tender, non-distended, normal bowel sounds, no masses Extremities: No edema. Full range of motion where tested. Skin: No rashes or lesions Assessment/Plan 1. Severe MR Planning valve surgery eventually. 2. NSTEMI Stable, planning cath tomorrow. 3. Acute Diastolic Congestive Heart Failure POA LVEF = 50 % Was not placed on ACEI or ARB due to renal failure Volume stable 4. Acute pulmonary edema, 2/2 severe MR - stable now 5, Acute kidney injury, likely prerenal. Unknown baseline Cr, but suspect she has some degree of previously undiagnosed CKD. Slightly improved. Plans per Renal. 6. Anemia, - normocytic, normochromic 7. Thrombocytopenia - Plt 149, continue to monitor while on antiplatelets and [...] Test Result Date/Time Sodium Level 139 mmol/L 07/26/2019 06:25 EST Potassium Level 3.9 mmol/L 07/26/2019 06:25 EST Chloride Level 108 mmol/L 07/26/2019 06:25 EST Carbon Dioxide Level 27 mmol/L 07/26/2019 06:25 EST Anion Gap 8 (Low) 07/26/2019 06:25 EST Glucose Level 99 mg/dL 07/26/2019 06:25 EST Blood Urea Nitrogen 20 mg/dL 07/26/2019 06:25 EST Creatinine Level 2.20 mg/dL (High) 07/26/2019 06:25 EST eGFR 29 mL/min/1.73m2 (Low) 07/26/2019 06:25 EST eGFR NonAfrican 24 mL/min/1.73m2 (Low) 07/26/2019 06:25 EST Bun/Creatinine 8.7 07/26/2019 06:25 EST Calcium Level 9.2 mg/dL 07/26/2019 06:25 EST WBC 8.1 K/uL 07/26/2019 06:25 EST RBC 3.92 Million/uL (Low) 07/26/2019 06:25 EST Hgb 11.8 g/dL 07/26/2019 06:25 EST Hct 35.7 % 07/26/2019 06:25 EST MCV 91.1 fL 07/26/2019 06:25 EST MCH 30.1 pg 07/26/2019 06:25 EST MCHC 33.1 Gram/dL 07/26/2019 06:25 EST Platelet Count 149 K/uL (Low) 07/26/2019 06:25 EST MPV 14.6 fL (High) 07/26/2019 06:25 EST RDW 13.1 % 07/26/2019 06:25 EST Neut % 63.5 % 07/26/2019 06:25 EST Neut # 5.13 K/uL 07/26/2019 06:25 EST Lymph % 25.7 % 07/26/2019 06:25 EST Lymph # 2.07 x10(3)/uL 07/26/2019 06:25 EST [place] % 7.1 % 07/26/2019 06:25 EST [place] # 0.57 K/uL 07/26/2019 06:25 EST Eos % 2.6 % 07/26/2019 06:25 EST Eos # 0.21 x10(3)/uL 07/26/2019 06:25 EST Baso % 0.6 % 07/26/2019 06:25 EST Baso # 0.05 x10(3)/uL 07/26/2019 06:25 EST Slide Review No 07/26/2019 06:25 EST IG# 0.04 x10(3)/uL 07/26/2019 06:25 EST IG% 0.50 % 07/26/2019 06:25 EST PTT Heparin 54.4 Second(s) 07/26/2019 06:25 EST Electronically signed by [facility], [facility] Conversion Application Counselor Cerner at 10/28/2022 7:15 PM CDT documented in this encounter Plan of Treatment Upcoming Encounters Date Type Department Care Team (Late st Contact Info) Description 04/12/2025 7:30 AM EDT Hospital Encounter [facility] Operating Room [address] [place] [address] Bill Graham MD [address] [place] [address] 04/12/2025 7:30 AM EDT Anesthesia Event [facility] Operating Room [address] [place] [address] Lucio Szymanski MD [address] [place] [address] 04/12/2025 7:30 AM EDT - 04/12/2025 8:55 AM EDT Surgery [facility] Operating Room [address] [place] [address] Bill Graham MD [address] [place] [address] (LAPAROSCOPIC PERITONEAL DIALYSIS CATHETER INSERTION) Scheduled Procedures Name Priority Associated Diagnoses Date/Ti me LAPAROSCOPY, WITH PERITONEAL DIALYSIS CATHETER INSERTION Chronic kidney disease, stage V (HCC) 04/12/2025 7:30 AM EDT documented as of this encounter Visit Diagnoses Not on filedocumented in this encounter Care Teams Locate Technician Relationship Specialty Start Date End Date Félix Monroe, INDUSTRIAL RECRUITER [address] [facility] [address] [place] [address] PCP - General Nurse Practitioner 08/25/22 documented as of this encounter
--- OUTSIDE RECORDS SUMMARY | 2025-04-11 11:06 | XMS_ITS | Encounter Summary ---
Author Organization [employer] ([place], [place], [place], [place]) Address [address] [place] [address] Care Team Providers Care Crowning Hammer Operator Name Role Phone Ramos Monroeie Francisco RODRIGUEZ Primary Care Provider [phone] Encounter Details Date Type Department Care Team (Late st Contact Info) Description 07/26/2019 Transcribed Document [facility] [place] [address] [place] [address] ProviderMaria Esther MD [address] [place], [place] [address] Social History Tobacco Use Types Packs/Day Years Used Date Smoking Tobacco: Never Assessed Comments Unknown Sex and Gender Information Value Date Recorded Sex Assigned at Not on file Legal Sex Female 6:53 PM CDT Gender Identity Not on file Sexual Orientation Not on file documented as of this encounter Miscellaneous Notes * Cerner Conversion Note - Maria Esther Reyes MD - 07/26/2019 2:50 PM LUMBER STACKER OPERATOR Patient: AWAIS SMITH Age: 49 years Sex: Female : 1970 Associated Diagnoses: None Author: DARRIUS TOUSSAINT, MICHAEL-CTS Admission Date: Admitting: Dr. Yg Cooney PCP: None ( window caser arranging) Consultants:Dr. Emanuel Brody, Cardiology Dr.Mostafa Howell, Nephrology Dr. Александр Valdez, CT Surgery Brief History:Awais Smith is a 49-year-old female with a known history of valvular heart disease, congestive heart failure, and tobacco abuse. She has had 2 hospital admissions for CHF over the past 15 years. She recently presented to [facility] with worsening shortness of breath. She stopped taking her cardiac medication 4 months ago he lost her insurance. At the ER at [facility] she had a transthoracic echocardiogram showed severe MR. She also had an elevated pro BNP of 31,000 as well as an elevated troponin at 0.85. The patient was given a loading dose of aspirin and Brilinta, given nitroglycerin and intravenous Lasix, and was started on a heparin drip and then was transferred to [facility] Dr. Александр Valdez has been asked [...] DX: Subjective : worried about surgery 07/25/19: no complaints 07/26/19:denies chest pain\SOB; very happy she can have cardiac cath tomorrow Health Status Allergies: Allergic Reactions (Selected) Severity Not Documented Codeine- No reactions were documented. Current medications.Problem list. Objective VS/Measurements Vital Measurements 07/26/2019 10:00 EST Systolic Blood Pressure 128 mmHg Diastolic Blood Pressure 86 mmHg Temperature, Fahrenheit 97.8 Deg F Heart Rate Monitored 77 bpm 07/26/2019 8:12 EST Oxygen Saturation 95 % Oxygen Therapy Mode Room air General: Alert and oriented. Respiratory: Lungs are clear to auscultation. Cardiovascular: Normal rate, Regular rhythm. Gastrointestinal: Soft, Non-tender. Tolerates PO Voiding Last BM>> 1\15 Ambulates Results Review General results Today's results 07/26/2019 6:25 EST Sodium Level 139 mmol/L Potassium Level 3.9 mmol/L Chloride Level 108 mmol/L Carbon Dioxide Level 27 mmol/L Anion Gap 8 LOW Glucose Level 99 mg/dL Blood Urea Nitrogen 20 mg/dL Creatinine Level 2.20 mg/dL HI eGFR 29 mL/min/1.73m2 LOW eGFR NonAfrican 24 mL/min/1.73m2 LOW Bun/Creatinine 8.7 Calcium Level 9.2 mg/dL WBC 8.1 K/uL RBC 3.92 Million/uL LOW Hgb 11.8 g/dL Hct 35.7 % MCV 91.1 fL MCH 30.1 pg MCHC 33.1 Gram/dL Platelet Count 149 K/uL LOW MPV 14.6 fL HI RDW 13.1 % Neut % 63.5 % Neut # 5.13 K/uL Lymph % 25.7 % Lymph # 2.07 x10(3)/uL [place] % 7.1 % [place] # 0.57 K/uL Eos % 2.6 % Eos # 0.21 x10(3)/uL Baso % 0.6 % Baso # 0.05 x10(3)/uL Slide Review No IG# 0.04 x10(3)/uL IG% 0.50 % PTT Heparin 54.4 Second(s) Interpretation: No Radiology Results Found Impression and Plan VTE STATUS>>SCDS Tobacco Cessation discussed with patient on 07/22/19 Mitral valve replacement hopefully Wednesday or Wednesday by Dr. Valdez. (Got Brilinta at [facility] >2 days ago) Creatinine 2.2 (2.0 yesterday) [...] -There is no urgent indication for dialysis. Telemetry>>sinus O2 sat>> 93% on RA Creatinine 2.5 ( yesterday 2.5) Pt on Heparin drip ( ordered by Dr. Cooney) Needs Cardiac Cath prior to Mitral Valve Replacement ( Pt\ appear well-prepared) Pt seen and evaluated by Dr. Valdez>> from his standpoint, Pt may be discharged when renal status is stable; [facility] per Cardiology as outpatient, then F\U with Dr. Valdez to schedule Mitral Valve replacement +/- CABG From CT Surgery standpoint, Heparin drip may be stopped at anytime Card: 07/25/2019 Denies any symptoms. Awaiting improvement in renal function prior to [facility]. From our standpoint this could be done as an OP. We are available any time. Telemetry>> sinus O2 sat>>95 % on RA Cardiac Cath tomorrow afternoon Then Dr. Valdez, will review results; if stable will discuss sending pt home, with return for MV Replacement +/- CABG Cardiology; 07/26/2019 Her creatinine is on the way down. I think we can go ahead with cath tomorrow. Will plan for PM case so we can hydrate and check AM labs. \16\20 documented in this encounter Plan of Treatment Upcoming Encounters Date Type Department Care Team (Late st Contact Info) Description 04/12/2025 7:30 AM EDT Hospital Encounter [facility] Operating Room 1 [place] [address] [place] [address] [place] [address] [address] 04/12/2025 7:30 AM EDT Anesthesia Event [facility] Operating Room 1 [place] [address] Lucio Szymanski MD [address] [place] [address] 04/12/2025 7:30 AM EDT - 04/12/2025 8:55 AM EDT Surgery [facility] Operating Room 1 [place] [address] Bill Graham MD [address] [place] [address] (LAPAROSCOPIC PERITONEAL DIALYSIS CATHETER INSERTION) Scheduled Procedures Name Priority Associated Diagnoses Date/Ti me LAPAROSCOPY, WITH PERITONEAL DIALYSIS CATHETER INSERTION Chronic kidney disease, stage V (HCC) 04/12/2025 7:30 AM EDT documented as of this encounter Visit Diagnoses Not on filedocumented in this encounter Care Teams Crowning Hammer Operator Relationship Specialty Start Date End Date Félix Monroe, FREIGHT TEAM ASSOCIATE [address] [facility] [address] [place] [address] PCP - General Nurse Practitioner 08/25/22 documented as of this encounter
--- OUTSIDE RECORDS SUMMARY | 2025-04-11 11:06 | XMS_ITS | Encounter Summary ---
Author Organization [employer] ([place], [place], [place], [place]) Address [address] [address] Care Team Providers Care Delinquent Notice Machine Operator Name Role Phone Fer Félix Singh MICHAEL Primary Care Provider [phone] Encounter Details Date Type Department Care Team (Late st Contact Info) Description 07/25/2019 Transcribed Document [facility] [place] [address] [place] [address] ProviderMaria Esther MD [address] [place] [address] Social History Tobacco Use Types Packs/Day Years Used Date Smoking Tobacco: Never Assessed Comments Unknown Sex and Gender Information Value Date Recorded Sex Assigned at Not on file Legal Sex Female 6:53 PM CDT Gender Identity Not on file Sexual Orientation Not on file documented as of this encounter Miscellaneous Notes * Cerner Conversion Note - Historical ProviderMD - 07/25/2019 4:00 AM APPLICATION PROGRAMMER ANALYST Height and Weight, Routine Entered On: 07/25/2019 6:02 EST Performed On: 07/25/2019 4:00 EST by Gina Banuelos [facility] Height and Weight, Routine Routine Weight Source : Bed scale Routine Weight Entry Format : [place] Routine Weight, Pounds : 140 lb Routine Weight, Ounces : 4 oz Routine Weight Calculation : 63.75 kg Height Source : Chart Height Entry Format : [place] Height, Feet : 5 ft Height, Inches : 6 Inch Clinical Height : 167.64 cm Body Surface Area (BSA), Routine : 1.72 m2 Body Mass Index (BMI), Routine : 22.68 kg/m2 Gina Banuelos [facility] - 07/25/2019 6:02 EST documented in this encounter Plan of Treatment Upcoming Encounters Date Type Department Care Team (Late st Contact Info) Description 04/12/2025 7:30 AM EDT Hospital Encounter [facility] Operating Room 1 [place] [address] [place] [address] [place] [address] [address] [place] [address] 04/12/2025 7:30 AM EDT Anesthesia Event [facility] Operating Room 1 [place] [address] Lucio Szymanski MD [address] [place] [address] 04/12/2025 7:30 AM EDT - 04/12/2025 8:55 AM EDT Surgery [facility] Operating Room 1 [place] [address] Bill Graham MD [address] [place] [address] (LAPAROSCOPIC PERITONEAL DIALYSIS CATHETER INSERTION) Scheduled Procedures Name Priority Associated Diagnoses Date/Ti me LAPAROSCOPY, WITH PERITONEAL DIALYSIS CATHETER INSERTION Chronic kidney disease, stage V (HCC) 04/12/2025 7:30 AM EDT documented as of this encounter Visit Diagnoses Not on filedocumented in this encounter Care Teams Delinquent Notice Machine Operator Relationship Specialty Start Date End Date Félix Monroe, PERITONEAL DIALYSIS REGISTERED NURSE [address] [facility] [address] [place] [address] PCP - General Nurse Practitioner 08/25/22 documented as of this encounter
--- OUTSIDE RECORDS SUMMARY | 2025-04-11 11:06 | XMS_ITS | Encounter Summary ---
Author Organization [employer] ([place], [place], [place], [place]) Address [address] [place] [address] Care Team Providers Care Form Tamper Operator Name Role Phone Monroe Félix Francisco RODRIGUEZ Primary Care Provider [phone] Encounter Details Date Type Department Care Team (Late st Contact Info) Description 07/25/2019 Transcribed Document [facility] [place] Family Medicine [address] [place] [address] ProviderMaria Esther MD [address] [place], [place] [address] Social History Tobacco Use Types Packs/Day Years Used Date Smoking Tobacco: Never Assessed Comments Unknown Sex and Gender Information Value Date Recorded Sex Assigned at Not on file Legal Sex Female 6:53 PM CDT Gender Identity Not on file Sexual Orientation Not on file documented as of this encounter Miscellaneous Notes * Cerner Conversion Note - Historical ProviderMD - 07/25/2019 3:00 AM FOOD CONCESSION MANAGER Nutrition Assessment Entered On: 07/25/2019 9:53 EST Performed On: 07/25/2019 9:53 EST by [address] RD, KUMAR Nutrition Assessment Nutrition Learning Needs Comment : ORIN GRIMALDO RD, LD - 07/25/2019 9:54 EST Nutrition Assessment Reason : Follow Up ORIN GRIMALDO RD, LD - 07/25/2019 9:53 EST Current Nutrition Regimen Comment : 07/25: Spoke with pt, reports weight loss related to lap band surgery 10-11 years ago. No recent weight loss or changes in appetite. Does not like ensure and reports eating very well. 1/10: Rec'd consult for MST >2 (14-23# weight loss captain assistant). Visited pt x 3- was sound asleep each visit, did not awaken to name being called. No weight history in chart to go by. Dx: severe MR, NSTEMI, LETY, Acute pulmonary edema, anemia PMH: CHF Med: protonix Labs: BUN 25, Cr 2.5 Skin: no breakdown noted GI: +BM 07/23 Diet: Cardiac + Ensure BID Intake: avg 75% x 7 meals, refuses ensure Ht: 66 in Wt: 130# (07/20), 140# (07/25) BMI: 20.9 IBW: 130# ORIN GRIMALDO RD, - 07/25/2019 12:19 EST Nutrition Diagnoses No Nutrition Diagnosis : No Nutrition Diagnosis ORIN GRIMALDO RD, - 07/25/2019 12:19 EST Nutrition Interventions Meals and Snacks : General/Healthful diet ORIN GRIMALDO RD, - 07/25/2019 12:19 EST Nutrition Recommendations Dietitian Recommendations : Continue Cardiac diet. No nutrition dx at this time, FLOWER will rewscreen in 7-[address], - 07/25/2019 12:19 EST Electronically signed by Nir, cassi Conversion Building Supplies Salesperson Retail Cerner at 10/28/2022 7:21 PM CDT documented in this encounter Plan of Treatment Upcoming Encounters Date Type Department Care Team (Late st Contact Info) Description 04/12/2025 7:30 AM EDT Hospital Encounter [facility] Operating Room 1 [place] [address] Bill Graham MD [address] [place] [address] [address] [place] [address] 04/12/2025 7:30 AM EDT Anesthesia Event [facility] Operating Room 1 [place] [address] Lucio Szymanski MD [address] [place] [address] 04/12/2025 7:30 AM EDT - 04/12/2025 8:55 AM EDT Surgery [facility] Operating Room 1 [place] [address] Bill Graham MD [address] [facility] [address] [place] [address] (LAPAROSCOPIC PERITONEAL DIALYSIS CATHETER INSERTION) Scheduled Procedures Name Priority Associated Diagnoses Date/Ti me LAPAROSCOPY, WITH PERITONEAL DIALYSIS CATHETER INSERTION Chronic kidney disease, stage V (HCC) 04/12/2025 7:30 AM EDT documented as of this encounter Visit Diagnoses Not on filedocumented in this encounter Care Teams Form Tamper Operator Relationship Specialty Start Date End Date Félix Monroe, ELECTRIC SEALING MACHINE OPERATOR [address] [facility] [address] [place] [address] PCP - General Nurse Practitioner 08/25/22 documented as of this encounter
--- OUTSIDE RECORDS SUMMARY | 2025-04-11 11:06 | XMS_ITS | Encounter Summary ---
Author Organization [employer] ([place], [place], [place], [place]) Address [address] [address] Care Team Providers Care Molding Machine Operator Helper Name Role Phone Fer Félix Singh APRN Primary Care Provider [phone] Encounter Details Date Type Department Care Team (Late st Contact Info) Description 07/24/2019 Transcribed Document [facility] [place] [address] [place] [address] ProviderMaria Esther MD [address] [place], [place] [address] Social History Tobacco Use Types Packs/Day Years Used Date Smoking Tobacco: Never Assessed Comments Unknown Sex and Gender Information Value Date Recorded Sex Assigned at Not on file Legal Sex Female 6:53 PM CDT Gender Identity Not on file Sexual Orientation Not on file documented as of this encounter Miscellaneous Notes * Cerner Conversion Note - Maria Esther ProviderMD - 07/24/2019 11:14 AM SUIT MAKER UM Authorization Entered On: 07/24/2019 11:17 EST Performed On: 07/24/2019 11:14 EST by Shantal Bernal Rn-Utilization Review Primary Insurance Authorization Authorization and Policy Numbers : Insurance 1 Health Plan: MEDICAID PENDING Policy Number: [id number] Authorization Number: Insurance Primary Name : SELF PAY Authorization Comments-Primary : per star notes patient has [employer] medicaid no ins id noted Historical Authorization Comments-Primary : Comment 1: SELF PAY (ALETHEA MEYERS Rn-Utilization Review 07/22/2019 13:34) Shantal Bernal Rn-Utilization Review - 07/24/2019 11:14 EST Electronically signed by Nir, [facility] Conversion Outside Machinist Helper Cerner at 10/28/2022 7:03 PM CDT documented in this encounter Plan of Treatment Upcoming Encounters Date Type Department Care Team (Late st Contact Info) Description 04/12/2025 7:30 AM EDT Hospital Encounter [facility] Operating Room 1 [place] [address] [place] [address] [place] [address] [address] [place] [address] 04/12/2025 7:30 AM EDT Anesthesia Event [facility] Operating Room 1 [place] [address] Lucio Szymanski MD [address] [place] [address] 04/12/2025 7:30 AM EDT - 04/12/2025 8:55 AM EDT Surgery [facility] Operating Room 1 [place] [address] [place] [address] [place] [address] [address] (LAPAROSCOPIC PERITONEAL DIALYSIS CATHETER INSERTION) Scheduled Procedures Name Priority Associated Diagnoses Date/Ti me LAPAROSCOPY, WITH PERITONEAL DIALYSIS CATHETER INSERTION Chronic kidney disease, stage V (HCC) 04/12/2025 7:30 AM EDT documented as of this encounter Visit Diagnoses Not on filedocumented in this encounter Care Teams Molding Machine Operator Helper Relationship Specialty Start Date End Date Félix Monroe, SLAB TRIPPER [address] [facility] [address] [place] [address] PCP - General Nurse Practitioner 08/25/22 documented as of this encounter
--- OUTSIDE RECORDS SUMMARY | 2025-04-11 11:06 | XMS_ITS | Encounter Summary ---
Author Organization [employer] ([place], [place], [place], [place]) Address [address] [place] [address] Care Team Providers Care Auto Job Estimator Name Role Phone MonroeRamosie Francisco RODRIGUEZ Primary Care Provider [phone] Encounter Details Date Type Department Care Team (Late st Contact Info) Description 07/24/2019 Transcribed Document [facility] [place] [facility] [place] [address] ProviderMaria Esther MD [address] [place], [place] [id number] Social History Tobacco Use Types Packs/Day Years Used Date Smoking Tobacco: Never Assessed Comments Unknown Sex and Gender Information Value Date Recorded Sex Assigned at Not on file Legal Sex Female 6:53 PM CDT Gender Identity Not on file Sexual Orientation Not on file documented as of this encounter Miscellaneous Notes * Cerner Conversion Note - Maria Esther Reyes MD - 07/24/2019 6:31 PM MEDICAID COLLECTION SPECIALIST Patient: CORRIE SMITH [facility]: [id number] Age: 49 Years Sex: Female : 1970 Subjective She feels fine. She denies chest pain, shortness of breath, fever or sweats. She denies worsening lower extremity edema. She denies difficulty with urination. She has had a workup for her reduced kidney function. Her renal ultrasound was unremarkable. She did not have significant proteinuria on urine protein to craning ratio. Her urinalysis was bland. However, she had hypokalemia and slight worsening of her clearance. She reports that previously she had been told that her kidney function numbers were not normal but she does not know the severity of her outpatient kidney evaluation. She reports that she has a good appetite. She also reports that her valvular heart surgery has been put on hold until her kidney function can be stabilized. Review of her vital signs show that she has had some episodes of hypertension but most of her blood pressure readings have been near target. Vital Signs T: 36.7 ??C TMIN: 36.3 ??C TMAX: 36.7 ??C HR: 82 RR: 18 BP: 157/103 SpO2: 97% Oxygen Settings (Last) Oxygen Therapy Mode: Room air (07/24/19 08:43:00) Oxygen Flow Rate: 2 Liter/Min (07/21/19 06:15:00) Intake & Output Totals Last 24 Hours (7a-7a) Input Total: 885.08 mL Output Total: 1250 mL Balance: -364.92 mL Physical Exam Gen.: Alert, no acute distress, thin, conversant Cardiovascular: Normal S1-S2, regular rhythm, normal rate no rub no gallop, 3/6 murmur Pulmonary: Clear to auscultation bilaterally no wheezes or rhonchi, fair air movement Gastrointestinal: Abdomen is soft, nontender, nondistended, no guarding Genitourinary: No CVA tenderness Musculoskeletal thin muscle tone no significant lower extremity edema Neuro/psych: Mood and affect are appropriate, thoughts are fluent, moves all extremities spontaneously, no focal deficits Skin: No lesions, rashes or ecchymoses, I did not examine the sacral area Assessment and plan: Valvular heart disease/severe mitral valve regurgitation Hypertension Hypokalemia, resolved Acute kidney injury versus chronic kidney disease Her clearance remains poor. I have challenged her [...] -There is no urgent indication for dialysis. Mendoza Gallardo M.D. Nephrology Partner with , Dr. Pantoja and Dr. Lopez Note dictated with [facility] recognition system Medications amLODIPine, 10 mg= 1 Tab, Oral, [...] 650 mg= 2 Tab, Oral, Q4H, PRN Diagnostic Results Renal ultrasound report reviewed Normal Lab Results Test Name Test Result Date/Time [...] Lymph # 2.04 x10(3)/uL 07/24/2019 04:00 EST [place] % 8.3 % 07/24/2019 04:00 EST [place] # 0.47 K/uL 07/24/2019 04:00 EST Eos % 3.0 % 07/24/2019 04:00 EST Eos # 0.17 x10(3)/uL 07/24/2019 04:00 EST Baso % 0.9 % 07/24/2019 04:00 EST Baso # 0.05 x10(3)/uL 07/24/2019 04:00 EST Slide Review No 07/24/2019 04:00 EST IG# 0.01 x10(3)/uL 07/24/2019 04:00 EST IG% 0.20 % 07/24/2019 04:00 EST PTT Heparin 60.5 Second(s) 07/24/2019 04:00 EST documented in this encounter Plan of Treatment Upcoming Encounters Date Type Department Care Team (Late st Contact Info) Description 04/12/2025 7:30 AM EDT Hospital Encounter [facility] Operating Room 1 [place] [address] Bill Graham MD [address] [facility] [address] [place] [address] 04/12/2025 7:30 AM EDT Anesthesia Event [facility] Operating Room 1 [place] [address] Lucio Szymanski MD [address] [place] [address] 04/12/2025 7:30 AM EDT - 04/12/2025 8:55 AM EDT Surgery [facility] Operating Room 1 [place] [address] Bill Graham MD [address] [facility] [address] [place] [address] (LAPAROSCOPIC PERITONEAL DIALYSIS CATHETER INSERTION) Scheduled Procedures Name Priority Associated Diagnoses Date/Ti me LAPAROSCOPY, WITH PERITONEAL DIALYSIS CATHETER INSERTION Chronic kidney disease, stage V (HCC) 04/12/2025 7:30 AM EDT documented as of this encounter Visit Diagnoses Not on filedocumented in this encounter Care Teams Auto Job Estimator Relationship Specialty Start Date End Date Félix Monroe, PRINCIPAL EXAMINER [address] [facility] [address] [place] [address] PCP - General Nurse Practitioner 08/25/22 documented as of this encounter
--- OUTSIDE RECORDS SUMMARY | 2025-04-11 11:06 | XMS_ITS | Encounter Summary ---
Author Organization [employer] ([place], [place], [place], [place]) Address [address] [place] [address] Care Team Providers Care Transportation Refrigeration Technician Name Role Phone MonroeFélix APRN Primary Care Provider [phone] Encounter Details Date Type Department Care Team (Late st Contact Info) Description 07/26/2019 Transcribed Document [facility] [place] Family Medicine [address] [place] [address] ProviderMaria Esther MD [address] [place] [id number] Social History Tobacco Use Types Packs/Day Years Used Date Smoking Tobacco: Never Assessed Comments Unknown Sex and Gender Information Value Date Recorded Sex Assigned at Not on file Legal Sex Female 6:53 PM CDT Gender Identity Not on file Sexual Orientation Not on file documented as of this encounter Miscellaneous Notes * Cerner Conversion Note - Maria Esther Reyes MD - 07/26/2019 7:45 AM NET WEB APPLICATION DEVELOPER Patient: CORRIE SMITH Age: 49 years Sex: Female : 1970 Associated Diagnoses: None Author: JUAN GALVEZ MD-CAR Basic Information Clerk Supervisor: None Subjective NAD Health Status Problem list: Active Problems (7) CHF, acute on chronic COPD (chronic obstructive pulmonary disease) HTN - Hypertension Mitral regurgitation NSTEMI, initial episode of care Prolonged QT interval Pulmonary edema Objective VS/Measurements Vital Signs/Vital Measures 07/26/2019 6:03 EST Heart Rate, Apical 77 bpm 07/26/2019 6:00 EST Systolic Blood Pressure 171 mmHg HI Diastolic Blood Pressure 111 mmHg HI Temperature, Fahrenheit 97.9 Deg F Heart Rate Monitored 77 bpm Respiratory Rate 16 Breaths/Min 07/25/2019 23:09 EST Systolic Blood Pressure 153 mmHg HI Diastolic Blood Pressure 95 mmHg HI Temperature Source Oral , Vitals Signs (last 24 hrs) Last Charted Minimum Maximum Temp 97.9 (JUL 26 06:00) 97.9 (JUL 26:00) 98.1 (JUL 25 18:13) Apical HR 77 (JUL 26:03) 77 (JUL 26:03) 77 (JUL 26:03) Mon HR 77 (JUL 26:00) 72 (JUL 25 10:) 77 (JUL 26:) Resp Rate 16 (JUL 26:00) 16 (JUL 26:00) 18 (JUL 25:) SBP H 171 (JUL 26:) 133 (JUL 25:00) H 171 (JUL 26:) DBP H 111 (JUL 26 06:00) 87 (JUL 25 10:00) H 111 (JUL 26:) MAP 116 (JUL 25:) 102 (JUL 25 10:00) 116 (JUL 25:) SpO2 94 (JUL 25:) 94 (JUL 25:) 94 (JUL 25:) General: Alert and oriented, No acute distress. [...] Appropriate mood & affect. Results Review JUL 26 06:25 139 108 20 / 99 3.9 27 H 2.20 \ JUL 26 06:25 \ 11.8 / 8.1 L 149 / 35.7 \ ECHO 07/21/2019 Impression: Normal sized left [...] Cr 2.5 COPD Ongoing tobacco abuse PLAN: 07/26/2019 Her creatinine is on the way down. I think we can go ahead with cath tomorrow. Will plan for PM case so we can hydrate and check AM labs. 07/25/2019 Denies any symptoms. Awaiting improvement in [...] cessation emphasized. Further decisions pending clinical course. Electronically signed by Evaristo Loyola Conversion Industrial Illuminating Engineer Cerner at 10/28/2022 7:02 PM CDT documented in this encounter Plan of Treatment Upcoming Encounters Date Type Department Care Team (Late st Contact Info) Description 04/12/2025 7:30 AM EDT Hospital Encounter [facility] Operating Room 1 [place] [address] Bill Graham MD [address] [place] [address] 04/12/2025 7:30 AM EDT Anesthesia Event [facility] Operating Room 1 [place] [address] Lucio Szymanski MD [address] [place] [address] 04/12/2025 7:30 AM EDT - 04/12/2025 8:55 AM EDT Surgery [facility] Operating Room 1 [place] [address] Bill Graham MD [address] [place] [address] (LAPAROSCOPIC PERITONEAL DIALYSIS CATHETER INSERTION) Scheduled Procedures Name Priority Associated Diagnoses Date/Ti me LAPAROSCOPY, WITH PERITONEAL DIALYSIS CATHETER INSERTION Chronic kidney disease, stage V (HCC) 04/12/2025 7:30 AM EDT documented as of this encounter Visit Diagnoses Not on filedocumented in this encounter Care Teams Transportation Refrigeration Technician Relationship Specialty Start Date End Date Félix Monroe, INSPECTOR HEALTH CARE FACILITIES [address] [facility] [address] [place] [address] PCP - General Nurse Practitioner 08/25/22 documented as of this encounter
--- OUTSIDE RECORDS SUMMARY | 2025-04-11 11:06 | XMS_ITS | Encounter Summary ---
Author Organization [employer] ([place], [place], [place], [place]) Address [address] [place] [address] Care Team Providers Care Carcass Washer Name Role Phone Félix Monroe APRN Primary Care Provider [phone] Encounter Details Date Type Department Care Team (Late st Contact Info) Description 07/24/2019 Transcribed Document [facility] [place] Family Medicine [address] [place] [address] ProviderMaria Esther MD [address] [place] [address] Social History Tobacco Use Types Packs/Day Years Used Date Smoking Tobacco: Never Assessed Comments Unknown Sex and Gender Information Value Date Recorded Sex Assigned at Not on file Legal Sex Female 6:53 PM CDT Gender Identity Not on file Sexual Orientation Not on file documented as of this encounter Miscellaneous Notes * Cerner Conversion Note - Historical ProviderMD - 07/24/2019 5:00 PM TIRE FIXER Chart Check - Review Order Profile Entered On: 07/24/2019 17:48 EST Performed On: 07/24/2019 17:00 EST by SANTIAGO SHETTY RN Chart Check All Active Orders Reviewed : Yes SANTIAGO SHETTY RN - 07/24/2019 17:47 EST Electronically signed by Nir [facility] Conversion Medical Staff Coordinator Cerner at 10/28/2022 7:08 PM CDT documented in this encounter Plan of Treatment Upcoming Encounters Date Type Department Care Team (Late st Contact Info) Description 04/12/2025 7:30 AM EDT Hospital [facility] Operating Room 1 [place] [address] Bill Graham MD [address] [facility] [address] [place] [address] 04/12/2025 7:30 AM EDT Anesthesia Event [facility] Operating Room 1 [place] [address] Lucio Szymanski MD [address] [place] [address] 04/12/2025 7:30 AM EDT - 04/12/2025 8:55 AM EDT Surgery [facility] Operating Room 1 [place] [address] Bill Graham MD [address] [facility] [address] [place] [address] (LAPAROSCOPIC PERITONEAL DIALYSIS CATHETER INSERTION) Scheduled Procedures Name Priority Associated Diagnoses Date/Ti me LAPAROSCOPY, WITH PERITONEAL DIALYSIS CATHETER INSERTION Chronic kidney disease, stage V (HCC) 04/12/2025 7:30 AM EDT documented as of this encounter Visit Diagnoses Not on filedocumented in this encounter Care Teams Carcass Washer Relationship Specialty Start Date End Date Félix Monroe, CHUTE TAPPER [address] [facility] [address] [place] [address] PCP - General Nurse Practitioner 08/25/22 documented as of this encounter
--- OUTSIDE RECORDS SUMMARY | 2025-04-11 11:06 | XMS_ITS | Encounter Summary ---
Author Organization [employer] ([place], [place], [place], [place]) Address [address] [address] Care Team Providers Care Category Director Name Role Phone Fer Félix Singh APRN Primary Care Provider [phone] Encounter Details Date Type Department Care Team (Late st Contact Info) Description 07/24/2019 Transcribed Document [facility] [place] Family Medicine [address] [place] [address] ProviderMaria Esther MD [address] [place] [id number] Social History Tobacco Use Types Packs/Day Years Used Date Smoking Tobacco: Never Assessed Comments Unknown Sex and Gender Information Value Date Recorded Sex Assigned at Not on file Legal Sex Female 6:53 PM CDT Gender Identity Not on file Sexual Orientation Not on file documented as of this encounter Miscellaneous Notes * Cerner Conversion Note - Maria Esther ProviderMD - 07/24/2019 11:14 AM DUMP GRADER UM Authorization Entered On: 07/24/2019 11:14 EST Performed On: 07/24/2019 11:14 EST by Shantal Bernal Rn-Utilization Review Primary Insurance Authorization Authorization and Policy Numbers : Insurance 1 Health Plan: MEDICAID PENDING Policy Number: [id number] Authorization Number: Insurance Primary Name : SELF PAY Historical Authorization Comments-Primary : Comment 1: SELF PAY (ALETHEA MEYERS Rn-Utilization Review 07/22/2019 13:34) Shantal Bernal Rn-Utilization Review - 07/24/2019 11:14 EST Electronically signed by Hilario Loyola Conversion Configuration Release Manager Cerner at 10/28/2022 7:05 PM CDT documented in this encounter Plan of Treatment Upcoming Encounters Date Type Department Care Team (Late st Contact Info) Description 04/12/2025 7:30 AM EDT Hospital Encounter [facility] Operating Room 1 [place] [address] [place] [address] [place] [address] [address] [place] [address] 04/12/2025 7:30 AM EDT Anesthesia Event [facility] Operating Room 1 [place] [address] Lucio Szymanski MD [address] [place] [address] 04/12/2025 7:30 AM EDT - 04/12/2025 8:55 AM EDT Surgery [facility] Operating Room 1 [place] [address] Bill Graham MD [address] [place] [address] [address] [place] [address] (LAPAROSCOPIC PERITONEAL DIALYSIS CATHETER INSERTION) Scheduled Procedures Name Priority Associated Diagnoses Date/Ti me LAPAROSCOPY, WITH PERITONEAL DIALYSIS CATHETER INSERTION Chronic kidney disease, stage V (HCC) 04/12/2025 7:30 AM EDT documented as of this encounter Visit Diagnoses Not on filedocumented in this encounter Care Teams Category Director Relationship Specialty Start Date End Date Félix Monroe, BOUNTY HUNTER [address] [facility] [address] [place] [address] PCP - General Nurse Practitioner 08/25/22 documented as of this encounter
--- OUTSIDE RECORDS SUMMARY | 2025-04-11 11:06 | XMS_ITS | Encounter Summary ---
Author Organization [employer] ([place], [place], [place], [place]) Address [address] [address] Care Team Providers Care Concrete Inspector Name Role Phone Fer Félix Francisco RODRIGUEZ Primary Care Provider [phone] Encounter Details Date Type Department Care Team (Late st Contact Info) Description 07/24/2019 Transcribed Document [facility] [place] [facility] [place] [address] ProviderMaria Esther MD [address] [place], [place] [address] Social History Tobacco Use Types Packs/Day Years Used Date Smoking Tobacco: Never Assessed Comments Unknown Sex and Gender Information Value Date Recorded Sex Assigned at Not on file Legal Sex Female 6:53 PM CDT Gender Identity Not on file Sexual Orientation Not on file documented as of this encounter Miscellaneous Notes * Cerner Conversion Note - Maria Esther Reyes MD - 07/24/2019 7:04 AM BACK HANGER Patient: CORRIE SMITH [facility]: [id number] Age: 49 years Sex: Female : 1970 Associated Diagnoses: None Author: JUAN GALVEZ MD-CAR Basic Information Health Care Aide: None Subjective NAD Patient seen and examined at the bedside. I explained to her that she has mitral regurgitations and had a NSTEMI. and she will need ischemic work up but waiting for improvement in renal function. No cardiac complaints today, Health Status Current medications: (Selected) Inpatient Medications [...] influenza virus vaccine, inactivated: 0.5 mL, IntraMuscular, [id number], No qualifying data available Problem list: Active Problems (2) COPD (chronic obstructive pulmonary disease) HTN - Hypertension Objective VS/Measurements Vitals Signs (last 24 hrs) Last Charted Minimum Maximum Temp 97.6 (JUL 24:) 97.6 (JUL 24:) 97.9 (JUL 23 08:12) Apical HR 88 (JUL 23:) 88 (JUL 23:22) 88 (JUL 23:) Mon HR 77 (JUL 24:) 74 (JUL 24 02:45) 83 (JUL 23:45) Resp Rate 16 (JUL 24:) 16 (JUL 23 08:12) 18 (JUL 23:20) SBP H 145 (JUL 24:) 119 (JUL 24 02:45) H 174 (JUL 23:) DBP H 101 (JUL 24:) 80 (JUL 24 02:45) H 111 (JUL 23:) MAP 117 (JUL 24:) 92 (JUL 24 02:45) 128 (JUL 23:) SpO2 95 (JUL 24:) L 93 (JUL 23 22:45) 98 (JUL 23:) General: Alert and oriented, No acute distress. [...] Appropriate mood & affect. Results Review JUL 24 04:00 140 107 H 27 / 97 3.7 31 H 2.50 \ JUL 24 04:00 \ L 11.0 / 5.6 L 145 / L 34.0 \ ECHO 07/21/2019 Impression: Normal sized left [...] anemia. No chest pain Troponin 0.082, 0.064 Prolonged QT - 554 CHF; diastolic EF 55% per ECHO orthopnea Elevated ProBNP > 12,000 VHD; appearance of rheumatic mitral disease per ECHO 07/21/2019 Severe MR, Mild mitral stenosis, Mild pulmonic stenosis LETY; worsening Cr 2.5 COPD Ongoing tobacco abuse PLAN: 07/24/2019 Renal function worse today. Her cardiac [...] decisions pending clinical course. Electronically signed by Nir, [facility] Conversion Fire Apparatus Sprinkler Inspector Cerner at 10/28/2022 7:14 PM CDT documented in this encounter Plan of Treatment Upcoming Encounters Date Type Department Care Team (Late st Contact Info) Description 04/12/2025 7:30 AM EDT Hospital Encounter [facility] Operating Room 1 [place] [address] Bill Graham MD [address] [place] [address] 04/12/2025 7:30 AM EDT Anesthesia Event [facility] Operating Room 1 [place] [address] Lucio Szymanski MD [address] [place] [address] 04/12/2025 7:30 AM EDT - 04/12/2025 8:55 AM EDT Surgery [facility] Operating Room 1 [place] [address] Bill Graham MD [address] [place] [address] (LAPAROSCOPIC PERITONEAL DIALYSIS CATHETER INSERTION) Scheduled Procedures Name Priority Associated Diagnoses Date/Ti me LAPAROSCOPY, WITH PERITONEAL DIALYSIS CATHETER INSERTION Chronic kidney disease, stage V (HCC) 04/12/2025 7:30 AM EDT documented as of this encounter Visit Diagnoses Not on filedocumented in this encounter Care Teams Concrete Inspector Relationship Specialty Start Date End Date Félix Monroe, HIDES INSPECTOR [address] [facility] [address] [place] [address] PCP - General Nurse Practitioner 08/25/22 documented as of this encounter
--- OUTSIDE RECORDS SUMMARY | 2025-04-11 11:06 | XMS_ITS | Encounter Summary ---
Author Organization [employer] ([place], [place], [place], [place]) Address [address] [address] Care Team Providers Care Cable Television Installer Name Role Phone Fer Félix Francisco RODRIGUEZ Primary Care Provider Encounter Details Date Type Department Care Team (Late st Contact Info) Description 07/24/2019 Transcribed Document [facility] [place] [address] [place] [address] ProviderMaria Esther MD [address] [place], [place] [id number] Social History Tobacco Use Types Packs/Day Years Used Date Smoking Tobacco: Never Assessed Comments Unknown Sex and Gender Information Value Date Recorded Sex Assigned at Not on file Legal Sex Female 6:53 PM CDT Gender Identity Not on file Sexual Orientation Not on file documented as of this encounter Miscellaneous Notes * Cerner Conversion Note - Maria Esther ProviderMD - 07/24/2019 4:20 PM DIRECTOR AUTOMOTIVE On Going Discharge Planning Entered On: 07/24/2019 16:26 EST Performed On: 07/24/2019 16:20 EST by Yolanda Ramsey RN-Security RoverGlobal Program Director Progress Note Discharge Arrangements : Patient Post-Acute [...] Attend Multidisciplinary Rounds? : Yes Yolanda Ramsey RN-Security Rover - 07/24/2019 16:20 EST Narrative Progress Note Narrative Progress Note : 49 year old female with PMH valvular heart disease, CHF, COPD with ongoing tobacco abuse presented to [facility] with worsening SOB. Patient hospitalized 7 years ago for leaking valve , echo - severe mitral regurg. BNP 48490. Nephrology consult: CKD stage III. Plan: [facility] when renal function allows. Patient tentively scheduled for surgery on Wednesday. CM will continue to follow for discharge planning. Yolanda Ramsey RN-Security Rover - 07/24/2019 16:20 EST Electronically signed by [facility] Conversion Flat Lock Machine Operator Cerner at 10/28/2022 7:21 PM CDT documented in this encounter Plan of Treatment Upcoming Encounters Date Type Department Care Team (Late st Contact Info) Description 04/12/2025 7:30 AM EDT Hospital Encounter [facility] Operating Room 1 [place] [address] Bill Graham MD [address] [place] [address] 04/12/2025 7:30 AM EDT Anesthesia Event [facility] Operating Room 1 [place] [address] Lucio Szymanski MD [address] [place] [address] 04/12/2025 7:30 AM EDT - 04/12/2025 8:55 AM EDT Surgery [facility] Operating Room 1 [place] [address] Bill Graham MD [address] [place] [address] (LAPAROSCOPIC PERITONEAL DIALYSIS CATHETER INSERTION) Scheduled Procedures Name Priority Associated Diagnoses Date/Ti me LAPAROSCOPY, WITH PERITONEAL DIALYSIS CATHETER INSERTION Chronic kidney disease, stage V (HCC) 04/12/2025 7:30 AM EDT documented as of this encounter Visit Diagnoses Not on filedocumented in this encounter Care Teams Cable Television Installer Relationship Specialty Start Date End Date Félix Monroe, MARKET RESEARCH SPECIALIST [address] [place] [address] PCP - General Nurse Practitioner 08/25/22 documented as of this encounter
--- OUTSIDE RECORDS SUMMARY | 2025-04-11 11:07 | XMS_ITS | Encounter Summary ---
Author Organization [employer] ([place], [place], [place], [place]) Address [address] [address] Care Team Providers Care Cold Food Packer Name Role Phone Monroe Félix Francisco RODRIGUEZ Primary Care Provider [phone] Encounter Details Date Type Department Care Team (Late st Contact Info) Description 08/29/2019 Transcribed Document [facility] Family Medicine [address] [place] [address] ProviderMaria Esther MD [address] [place], [place] [address] Social History Tobacco Use Types Packs/Day Years Used Date Smoking Tobacco: Never Assessed Comments Unknown Sex and Gender Information Value Date Recorded Sex Assigned at Not on file Legal Sex Female 6:53 PM CDT Gender Identity Not on file Sexual Orientation Not on file documented as of this encounter Miscellaneous Notes * Cerner Conversion Note - Maria Esther ProviderMD - 08/29/2019 10:17 AM PHOTO CHECKER Pain Assessment Entered On: 08/31/2019 5:08 EST Performed On: 08/31/2019 0:05 EST by Jennifer Simon, RN Intervention Information: morphine Performed by Jennifer Simon, RN on 08/30/2019 23:35:00 EST morphine,2mg IV Push,Central line, distal,Pain (Severe 7-10) Pain Assessment Pain Assessment : Follow-up assessment Pain Scale Goal : 4 Pain Scale Used : 0-10 Scale Jennifer Simon RN - 08/31/2019 5:08 EST Pain Scale Intensity : 0 Jennifer Simon RN - 08/31/2019 5:08 EST Image 4 - Images currently included in the form version of this document have not been included in the text rendition version of the form. documented in this encounter Plan of Treatment Upcoming Encounters Date Type Department Care Team (Late st Contact Info) Description 04/12/2025 7:30 AM EDT Hospital Encounter [facility] Operating Room 1 [place] [address] [place] [address] [place] [address] [address] 04/12/2025 7:30 AM EDT Anesthesia Event [facility] Operating Room 1 [place] [address] Lucio Szymanski MD [address] [place] [address] 04/12/2025 7:30 AM EDT - 04/12/2025 8:55 AM EDT Surgery [facility] Operating Room 1 [place] [address] Bill Graham MD [address] [place] [address] (LAPAROSCOPIC PERITONEAL DIALYSIS CATHETER INSERTION) Scheduled Procedures Name Priority Associated Diagnoses Date/Ti me LAPAROSCOPY, WITH PERITONEAL DIALYSIS CATHETER INSERTION Chronic kidney disease, stage V (HCC) 04/12/2025 7:30 AM EDT documented as of this encounter Visit Diagnoses Not on filedocumented in this encounter Care Teams Cold Food Packer Relationship Specialty Start Date End Date Félix Monroe, VEGETABLE TESTER [address] [facility] [address] [place], [place] [id number] PCP - General Nurse Practitioner 08/25/22 documented as of this encounter
--- OUTSIDE RECORDS SUMMARY | 2025-04-11 11:07 | XMS_ITS | Encounter Summary ---
Author Organization [employer] ([place], [place], [place], [place]) Address [address] [address] Care Team Providers Care Field Evidence Technician Name Role Phone Fer Félix Singh MICHAEL Primary Care Provider [phone] Encounter Details Date Type Department Care Team (Late st Contact Info) Description 08/29/2019 Transcribed Document [facility] Family Medicine [address] [place] [address] ProviderMaria Esther MD [address], [place] [address] Social History Tobacco Use Types Packs/Day Years Used Date Smoking Tobacco: Never Assessed Comments Unknown Sex and Gender Information Value Date Recorded Sex Assigned at Not on file Legal Sex Female 6:53 PM CDT Gender Identity Not on file Sexual Orientation Not on file documented as of this encounter Miscellaneous Notes * Cerner Conversion Note - Maria Esther ProviderMD - 08/29/2019 10:17 AM SLITTER CUT OFF OPERATOR Pain Assessment Entered On: 08/31/2019 5:08 EST Performed On: 08/30/2019 21:53 EST by Jennifer Simon, RN Intervention Information: oxyCODONE Performed by Jennifer Simon, RN on 08/30/2019 20:53:00 EST oxyCODONE,5mg Oral,Pain (Moderate 4-6) Pain Assessment Pain Assessment : Follow-up assessment Pain Scale Goal : 4 Pain Scale Used : 0-10 Scale Jennifer Simon, RN - 08/31/2019 5:08 EST Pain Scale Intensity : 0 Jennifer Simon, RN - 08/31/2019 5:08 EST Image 4 - Images currently included in the form version of this document have not been included in the text rendition version of the form. documented in this encounter Plan of Treatment Upcoming Encounters Date Type Department Care Team (Late st Contact Info) Description 04/12/2025 7:30 AM EDT Hospital Encounter [facility] Operating Room 1 [place] [address] Bill Graham MD [address] [place] [address] [address] 04/12/2025 7:30 AM EDT Anesthesia Event [facility] Operating Room 1 [place] [address] Lucio Szymanski MD [address] [place] [address] 04/12/2025 7:30 AM EDT - 04/12/2025 8:55 AM EDT Surgery [facility] Operating Room 1 [place] [address] Bill Graham MD [address] [place] [address] (LAPAROSCOPIC PERITONEAL DIALYSIS CATHETER INSERTION) Scheduled Procedures Name Priority Associated Diagnoses Date/Ti me LAPAROSCOPY, WITH PERITONEAL DIALYSIS CATHETER INSERTION Chronic kidney disease, stage V (HCC) 04/12/2025 7:30 AM EDT documented as of this encounter Visit Diagnoses Not on filedocumented in this encounter Care Teams Field Evidence Technician Relationship Specialty Start Date End Date Félix Monroe, AIRPLANE PILOT COMMERCIAL [address] [facility] [address] [place], [place] [id number] PCP - General Nurse Practitioner 08/25/22 documented as of this encounter
--- OUTSIDE RECORDS SUMMARY | 2025-04-11 11:07 | XMS_ITS | Encounter Summary ---
Author Organization [employer] ([place], [place], [place], [place]) Address [address] [address] Care Team Providers Care Hide And Skin Classer Name Role Phone Félix Monroe APRN Primary Care Provider [phone] Encounter Details Date Type Department Care Team (Late st Contact Info) Description 07/27/2019 Transcribed Document [facility] [address] [place] [address] ProviderMaria Esther MD [address], [place] [address] Social History Tobacco Use Types Packs/Day Years Used Date Smoking Tobacco: Never Assessed Comments Unknown Sex and Gender Information Value Date Recorded Sex Assigned at Not on file Legal Sex Female 6:53 PM CDT Gender Identity Not on file Sexual Orientation Not on file documented as of this encounter Miscellaneous Notes * Cerner Conversion Note - Maria Esther ProviderMD - 07/27/2019 3:55 PM BEATER ROOM SUPERVISOR UM Authorization Entered On: 07/27/2019 15:55 EST Performed On: 07/27/2019 15:55 EST by ALETHEA MEYERS Rn-Utilization Review Primary Insurance Authorization Authorization and Policy Numbers : Insurance 1 Health Plan: MEDICAID PENDING Policy Number: [id number] Authorization Number: Insurance Primary Name : [employer] LONG:[id number] Authorization Status-Primary : Awaiting callback Reference Number-Primary : [id number] Authorization Number-Primary : [id number] Number of Days Authorized-Primary : 6 Day(s) Authorized Service Begin Date-Primary : 2019 EST Authorized Service End Date-Primary : 07/26/2019 EST Authorization Comments-Primary : Destiny with [employer] requested Cath results, not available at the moment. Will need to fax on 07/28/19. Historical Authorization Comments-Primary : Comment 1: Faxed clinicals via [facility] for 07/26-07/27. (ALETHEA MEYERS, Rn-Utilization Review 07/27/2019 14:40) Comment 2: approved for ip per [facility]. nrd 07/27 (Shantal Bernal, Rn-Utilization Review 07/26/2019 13:36) Comment 3: Per [facility] notes, patient has [place] Medicaid, per Page Policy number is [id number]. Submitted Inpt Auth on Availity with clinicals attahed. (ALETHEA MEYERS, Rn-Utilization Review 07/25/2019 11:43) Comment 4: call to [employer] with name//ssn. patient is not active with [employer] (Shantal Bernal, Rn-Utilization Review 07/24/2019 11:42) Comment 5: per [facility] notes patient has [employer] no ins id noted (Shantal Bernal, Rn-Utilization Review 07/24/2019 11:14) Comment 6: SELF PAY (ALETHEA MEYERS, Rn-Utilization Review 07/22/2019 13:34) ALETHEA MEYERS, Rn-Utilization Review - 07/27/2019 15:55 EST documented in this encounter Plan of Treatment Upcoming Encounters Date Type Department Care Team (Late st Contact Info) Description 04/12/2025 7:30 AM EDT Hospital Encounter [facility] Operating Room 1 [place] [address] [place] [address] [place] [address] [address] [place], [place] [id number] 04/12/2025 7:30 AM EDT Anesthesia Event [facility] Operating Room 1 [place] [address] Lucio Szymanski MD [address] [place] [address] 04/12/2025 7:30 AM EDT - 04/12/2025 8:55 AM EDT Surgery [facility] Operating Room 1 [place] [address] Bill Graham MD [address] [facility] [address] [place] [address] (LAPAROSCOPIC PERITONEAL DIALYSIS CATHETER INSERTION) Scheduled Procedures Name Priority Associated Diagnoses Date/Ti me LAPAROSCOPY, WITH PERITONEAL DIALYSIS CATHETER INSERTION Chronic kidney disease, stage V (HCC) 04/12/2025 7:30 AM EDT documented as of this encounter Visit Diagnoses Not on filedocumented in this encounter Care Teams Hide And Skin Classer Relationship Specialty Start Date End Date Félix Monroe, TRANSFORMER INSPECTOR [address] [facility] [address] [place] [address] PCP - General Nurse Practitioner 08/25/22 documented as of this encounter
--- OUTSIDE RECORDS SUMMARY | 2025-04-11 11:07 | XMS_ITS | Encounter Summary ---
Author Organization [employer] ([place], [place], [place], [place]) Address [address] [place] [address] Care Team Providers Care Professor Of Food Biochemistry Name Role Phone Félix Monroe APRN Primary Care Provider [phone] Encounter Details Date Type Department Care Team (Late st Contact Info) Description 08/29/2019 Transcribed Document [facility] Radiology 1 [place] [address] Jeremias Velez MD [address] [place], [place] [phone] Social History Tobacco Use Types Packs/Day Years Used Date Smoking Tobacco: Never Assessed Comments Unknown Sex and Gender Information Value Date Recorded Sex Assigned at Not on file Legal Sex Female 6:53 PM CDT Gender Identity Not on file Sexual Orientation Not on file documented as of this encounter Miscellaneous Notes * Cerner Conversion Note - Jeremias Velez MD - 08/29/2019 11:47 AM EST DATE OF SERVICE: 08/29/2019 INTRAOPERATIVE RIA REPORT PROCEDURE PERFORMED: Mitral valve repair. CLINICAL INDICATION: Severe mitral regurgitation. The procedure was carried out in the operating room with the patient under general anesthesia. The Jose Omniplane probe was passed easily and the images were acquired by Dr. Velez. The aortic valve was tricuspid with normal mobile leaflets. There was no aortic insufficiency. There was no aortic stenosis with an aortic valve area of 2.4 sq cm by planimetry. Aortic anulus measured 2.3 cm. The ascending aorta was 3.4 cm. Mitral valve leaflets showed a thickened anterior leaflet tip. There was posterior leaflet restriction with severe posteriorly-directed eccentric mitral regurgitation. Pulmonary venous flow pattern showed systolic flow reversal. Left atrium was enlarged. There were no clots noted in left atrial appendage. Tricuspid valve morphology was normal. There was trace tricuspid regurgitation. Right atrium was normal size. Interatrial septum was intact with a normal intact fossa ovalis. Color flow demonstrated no flow across the septum. Pulmonary valve was normal and the interventricular septum was intact. Left ventricle was normal size with mild left ventricular hypertrophy. There was mild septal hypokinesis with an ejection fraction of 55% to 60%. The right ventricle was normal size and function. There was minimal aortic atherosclerosis. There was no aortic dissection seen. There were no pleural effusions. No pericardial fluid. Following cardiopulmonary bypass, left ventricular function was unchanged. A mitral annular ring had been placed with trace remaining mitral regurgitation. Mean gradient across the mitral valve was 2 mmHg. There was no aortic dissection seen and there were no other significant changes following the procedure. IMPRESSION: 1. Normal left ventricular size with mild left ventricular hypertrophy. Septal hypokinesis. Ejection fraction 55% to 60%. Normal right ventricular size and function. Left atrial enlargement. 2. Dilated mitral anulus with posterior leaflet restriction and severe posteriorly-directed eccentric mitral regurgitation. 3. Following cardiopulmonary bypass, the left ventricular function was unchanged. 4. A mitral annular ring had been placed with trivial remaining mitral regurgitation and no significant gradient across the valve. These findings were discussed with surgeon, Dr. Valdez. /[id number] Jeremias Velez MD KNOTT/AQ / KNOTT / MODL /[id number] documented in this encounter Plan of Treatment Upcoming Encounters Date Type Department Care Team (Late st Contact Info) Description 04/12/2025 7:30 AM EDT Hospital Encounter [facility] Operating Room 1 [place] [address] Bill Graham MD [address] [facility] [address] [place] [address] 04/12/2025 7:30 AM EDT Anesthesia Event [facility] Operating Room 1 [place] [address] Lucio Szymanski MD [address] [place] [address] 04/12/2025 7:30 AM EDT - 04/12/2025 8:55 AM EDT Surgery [facility] Operating Room 1 [place] [address] Bill Graham MD [address] [facility] [address] [place] [address] (LAPAROSCOPIC PERITONEAL DIALYSIS CATHETER INSERTION) Scheduled Procedures Name Priority Associated Diagnoses Date/Ti me LAPAROSCOPY, WITH PERITONEAL DIALYSIS CATHETER INSERTION Chronic kidney disease, stage V (HCC) 04/12/2025 7:30 AM EDT documented as of this encounter Visit Diagnoses Not on filedocumented in this encounter Care Teams Professor Of Food Biochemistry Relationship Specialty Start Date End Date Félix Monroe, CIRCUIT COURT MAGISTRATE [address] [facility] [address] [place] [address] PCP - General Nurse Practitioner 08/25/22 documented as of this encounter
--- OUTSIDE RECORDS SUMMARY | 2025-04-11 11:07 | XMS_ITS | Encounter Summary ---
Author Organization [employer] ([place], [place], [place], [place]) Address [address] [address] Care Team Providers Care Sap Gatherer Name Role Phone Monroe Félix Francisco RODRIGUEZ Primary Care Provider [phone] Encounter Details Date Type Department Care Team (Late st Contact Info) Description 08/29/2019 Transcribed Document [facility] [place] Medicine [facility] [place] [address] ProviderMaria Esther MD [address] [place], [place] [address] Social History Tobacco Use Types Packs/Day Years Used Date Smoking Tobacco: Never Assessed Comments Unknown Sex and Gender Information Value Date Recorded Sex Assigned at Not on file Legal Sex Female 6:53 PM CDT Gender Identity Not on file Sexual Orientation Not on file documented as of this encounter Miscellaneous Notes * Cerner Conversion Note - Maria Esther ProviderMD - 08/29/2019 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 Admission History, Adult Entered On: 08/29/2019 13:11 EST Performed On: 08/29/2019 11:00 EST by Nayla Rivera, RN Advance Directive Patient has Advance Directive *Q : Yes, Advance Directive not with the patient Advance Directive Type : Living will Copy Advance Directive Verified/on Chart : No Advance Directive Comment : will bring day of surgery Nayla Rivera, RN - 08/29/2019 13:09 EST Anesthesia/Transfusion History Family History of Anesthesia Reaction : No prior transfusion(s) Blood Transfusion Acceptable to Patient : Yes Transfusion History : Prior anesthesia without reaction Family History of Anesthesia Reaction : None Nayla Rivera, RN - 08/29/2019 13:09 EST Anticipated Discharge Needs Discharge To, Anticipated : Home Nayla Rivera RN - 08/29/2019 13:09 EST Education Topics, Admission Orientation DCP GENERIC [...] Verbalizes understanding Visiting Policy : Verbalizes understanding Nayla Rivera RN - 08/29/2019 13:09 EST Functional Assessment Living Situation : Home Patient Lives With : Spouse SWATHI Hx Falls Immediate/Within 3 Months : No Current Home Treatments : None Nayla Rivera RN - 08/29/2019 13:09 EST General Info Arrived From : Home Mode of Arrival on Unit : Ambulatory Patient Arrival Date/Time : 08/29/2019 7:00 EST Legal Guardian : Spouse 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 : 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 Support Person/Pt Rep Name : Bola Stiles, spouse Contact Password : MERI Support Person/Pt Rep Contact Information : [phone] cell Want Family/Rep/Phys Notified of Admit : No Emergency Contact #1 : Bola Stiles Emergency Contact #1 cell Emergency Contact #1 Relationship : spouse Emergency Contact #2 : Zoë Buchanan Emergency Contact #2 cell Emergency Contact #2 Relationship : mother Information Obtained From : Patient Primary Language : Israeli Preferred Communication Mode : Verbal Communication Barrier : None Objects to Sharing Info w Family : No Nayla Rivera RN - 08/29/2019 13:09 EST Fall Risk Scales ABCs Fall Injury Risk Identification : Coagulation, Surgery ABC Fall Injury Risk : Moderate to high injury risk ECHEVARRIA Hx Falls Immediate/Within 3 Months : No Echevarria Secondary Diagnosis : Yes ECHEVARRIA Use of Ambulatory Aid : Bed rest/Nurse assist ECHEVARRIA IV Therapy or IV Access : Yes Echevarria Gait/Transferring : Normal, bedrest, immobile Echevarria Mental Status : Oriented to own ability Echevarria Fall Risk Score : 35 ECHEVARRIA Fall Scale Risk Level : 25-45 Medium Risk [place] Fall Interventions : Adequate lighting, Bed in low position, Call device within reach, Fall prevention handout/education per facility policy, Frequent orientation to surroundings, Hourly comfort/safety rounds, Non-slip footwear, Personal items within reach, Reinforced to call for assistance before getting out of bed, Room free of clutter/spills, Upper side-rails up, Wheels locked, Wires/Cords secured Fall Moderate to High Risk Interventions : Patient room close to nurses station, Transport methods appropriate to patient Fall Risk Scale Calc Temp : 0 Nayla Rivera RN - 08/29/2019 13:09 EST Health Histories Smoking Status : 10 or more cigarettes (1/2 pack or more)/day in last 30 days Smokeless Tobacco Status : Smokeless tobacco user within last 30 days Desires Tobacco Cessation Medication : Yes Nayla Rivera RN - 08/29/2019 13:09 EST Social History (As Of: 08/29/2019 13:11:36 EST) Tobacco: 10 or more cigarettes (1/2 [...] WHITAKER RN) Height and Weight, Clinical Dosing Height Source : Measured Height Entry Format : [place]yer Height, Feet : 0 ft(Converted to: 0 cm, 0 Inch) Height, Inches : 65 Inch(Converted to: 5 ft 5 Inch, 165.10 cm) Clinical Height : 165.1 cm Weight Source : Standing scale Weight Entry Format : Sawyer Clinical Dosing Weight : 59.41 kg Weight, Pounds : 130.7 lb Body Surface Area (BSA) : 1.65 m2 Body Mass Index : 21.8 kg/m2 [place] Body Weight : 57 kg Nayla Rivera RN - 08/29/2019 13:09 EST Infectious Disease History Physical contact outside [place] in the last 30 days : No Infectious Disease History : None Tuberculosis Symptoms : Fatigue Nayla Rivera RN - 08/29/2019 13:09 EST Tetanus Immunization Status Previous Tetanus Immunizations : No qualifying data available. Tetanus Immunization : Unknown Nayla Rivera RN - 08/29/2019 13:09 EST Influenza Vaccine Asmt, Adult Previous Vaccines from Immunization Schedule : No qualifying data available. Influenza Immunization, Current Season : No Inactivated Flu Vaccine Contraindications : No contraindications to inactivated influenza vaccine Transplant Workup/Recent Transplant : No Order for Influenza Vaccine : Order for influenza vaccine sent to pharmacy Nayla Rivera RN - 08/29/2019 13:09 EST Pneumococcal Vaccine Previous Vaccines from Immunization Schedule : No qualifying data available. Pneumonia Immunization Received : No Pneumococcal Risk Assessment < Age 65 : None Nayla Rivera RN - 08/29/2019 13:09 EST Nutrition History Eating Poorly Due to Decreased Appetite : No Unplanned Weight Loss in Past 3-6 Months : No Malnutrition Screening Tool Total(mal) : 0 Malnutrition Screening Tool Risk Level : Patient not at risk Nayla Rivera RN - 08/29/2019 13:09 EST [place] Suicide Severity Rating Scale (C-SSRS) CSSRS Past Month Wish to be : No CSSRS Past Month Suicidal Thoughts : No CSSRS Lifetime Suicide Behavior : No Suicide Severity Rating Score : 0 Suicide Severity Rating : No Additional Care Required at this time Nayla Rivera RN - 08/29/2019 13:09 EST Psychosocial History Currently in Unsafe Situation : No Nayla Rivera RN - 08/29/2019 13:09 EST Sleep Apnea Risk Assmt BiPAP/CPAP Ordered for Home Use : No Hx of Obstructive Sleep Apnea Diagnosis : Yes Age over 50 Years Old : No Gender Male : No Nayla Rivera RN - 08/29/2019 13:09 EST Spiritual/Cultural Needs Any Spiritual/Cultural Needs or Requests : No Nayla Rivera RN - 08/29/2019 13:09 EST Valuables and Belongings Valuables and Belongings : No clothing, No comfort items, No jewelry, No personal devices, No personal items, No assistive devices, No respiratory devices, No medications Nayla Rivera RN - 08/29/2019 13:09 EST Electronically signed by Evaristo Loyola Conversion Bilingual Administrative Assistant Cerner at 10/28/2022 7:15 PM CDT documented in this encounter Plan of Treatment Upcoming Encounters Date Type Department Care Team (Late st Contact Info) Description 04/12/2025 7:30 AM EDT Hospital Encounter [facility] Operating Room 1 [place] [address] [place] [address] [place] [address] [address] [place] [address] 04/12/2025 7:30 AM EDT Anesthesia Event [facility] Operating Room 1 [place] [address] Lucio Szymanski MD [address] [place], [place] [id number] 04/12/2025 7:30 AM EDT - 04/12/2025 8:55 AM EDT Surgery [facility] Operating Room 1 [place] [address] Bill Graham MD [address] [facility] [address] [place] [address] (LAPAROSCOPIC PERITONEAL DIALYSIS CATHETER INSERTION) Scheduled Procedures Name Priority Associated Diagnoses Date/Ti me LAPAROSCOPY, WITH PERITONEAL DIALYSIS CATHETER INSERTION Chronic kidney disease, stage V (HCC) 04/12/2025 7:30 AM EDT documented as of this encounter Visit Diagnoses Not on filedocumented in this encounter Care Teams Sap Gatherer Relationship Specialty Start Date End Date Félix Monroe, OPERATIONS PROCESSOR [address] [facility] [address] [place] [address] PCP - General Nurse Practitioner 08/25/22 documented as of this encounter
--- OUTSIDE RECORDS SUMMARY | 2025-04-11 11:07 | XMS_ITS | Encounter Summary ---
Author Organization [employer] ([place], [place], [place], [place]) Address [address] [place] [address] Care Team Providers Care Talent Solutions Manager Name Role Phone Félix Monroe APRN Primary Care Provider [phone] Encounter Details Date Type Department Care Team (Late st Contact Info) Description 07/27/2019 Transcribed Document [facility] [place] [address] [place] [address] ProviderMaria Esther MD [address] [place] [address] Social History Tobacco Use Types Packs/Day Years Used Date Smoking Tobacco: Never Assessed Comments Unknown Sex and Gender Information Value Date Recorded Sex Assigned at Not on file Legal Sex Female 6:53 PM CDT Gender Identity Not on file Sexual Orientation Not on file documented as of this encounter Miscellaneous Notes * Cerner Conversion Note - Maria Esther ProviderMD - 07/27/2019 4:[address] [facility] [place], [place] [id number] CORRIE SMITH :1970 Visit Time:07/22/2019 Your Visit Summary Your Care Team Admitting Physician - KISHORE IVAN DO-INT Attending Physician - KISHORE IVAN DO-ANIL Primary Care Physician - NICOLE KENNEDY DR Referring Physician - BRENT, NO DR KENNEDY, UNKNOWN Your Diagnosis Mitral valve disease Discharge Vitals Temperature 36.8 ??C Heart Rate (Monitored) 78 Respiratory Rate 32 Blood Pressure 169/101 What to do next Instructions From Your Care Team No driving for 24 hours.. Follow post radial cath instructions. Discharge Follow Up Instructions: Labs 07/31/19 ([facility])Nephrology (Dr Gallardo) 1 weekCardiology (DR. Valle) 1 weekCT Surgery (Dr. Emery) 1 week Follow Up Instructions: Cardiology 1 week, Nephrology 1 week, CT Surgery as instructed Activity: Discharge Activity: Activity as tolerated Activity: Discharge Activity: Activity as tolerated Diet: Discharge Diet: Resume usual diet as tolerated Diet: Discharge Diet: Resume usual diet as tolerated Follow-Up Appointments Follow Up with SHAWANDA LUIS MD-NEP When Comments Call for follow up appointment with Dr LUIS (kidney Doctor) . Lab work on wednesday the 31 of July. Where: [address] [facility] [address] [place] [address]- Follow Up with ALESHA EMERY When Within [address] Emery's RN, Florinda Dillard will call pt next week ( after Renal Labs are reviewed) to schedule surgery Where: [address] [facility] [address] [place] [address]- Business (1) Medications What How Much When Instructions Next Dose acetaminophen (Tylenol 325 mg oral tablet) 2 Tablet(s) Oral Every 4 Hours as needed for Fever amLODIPine (amLODIPine 10 mg oral tablet) 1 Tablet(s) Oral Every Day Pickup at [facility] aspirin (aspirin 81 mg oral delayed release tablet) 1 Tablet(s) Oral Every Day carvedilol (Coreg 25 mg oral tablet) 1 Tablet(s) Oral Two Times A Day Pickup at [facility] isosorbide mononitrate (isosorbide mononitrate 20 mg oral tablet) 1 Tablet(s) Oral Two Times A Day Pickup at [facility] nicotine (nicotine 21 mg/ 24 hr transdermal film, extended release) 1 Patch(es) TransDermal Every Day pantoprazole (Protonix 40 mg oral delayed release tablet) 1 Tablet(s) Oral Every Day Pickup at [facility] rOPINIRole (Requip 1 mg oral tablet) Oral At Bedtime Pharmacy Information [facility]: [address] [place] [address] [address] [place], [place] [id number] [phone] Take your medications faithfully. Do NOT skip [...] per your retail pharmacy guidance. Allergies codeine Immunizations This Visit No Immunizations Found Education Materials Radial Site Care Refer to this sheet [...] the radial site that usually fades within 1???2 weeks. ??? Blood collecting in the tissue (hematoma) that may be painful to the touch. It should usually decrease in size and tenderness within 1???2 weeks. Follow these instructions at home: ??? Take medicines only as directed by your health care provider. ??? You may shower 24???48 hours after the procedure or as directed [...] 07/31/2011 Document Revised: 12/03/2016 Document Reviewed: 01/14/2015 [employer] Interactive Patient Education ?? 2019 [employer] Coronary Angiogram A coronary angiogram is an [...] including vitamins, herbs, eye drops, creams, and hrgr-plw-ltiqivy medicines. ??? Any problems you or family [...] Up to 2 hours before the procedure ??? you may continue to drink clear liquids, such as water, clear fruit juice, black coffee, and plain tea. Eating and drinking restrictions Follow instructions from your health care provider about eating and drinking, which may include: ??? 8 hours before the procedure ??? stop eating heavy meals or foods such as meat, fried foods, or fatty foods. ??? 6 hours before the procedure ??? stop eating light meals or foods, such as toast or cereal. ??? 2 hours before the procedure ??? stop drinking clear liquids. General instructions ??? [...] 01/02/2004 Document Revised: 04/09/2017 Document Reviewed: 04/09/2017 [employer] Interactive Patient Education ?? 2019 [employer] Moderate Conscious Sedation, Adult, Care After [...] you are awake and alert. ??? Take xlgj-cyv-anxojcr and prescription medicines only as told by [...] 04/18/2014 Document Revised: 11/30/2016 Document Reviewed: 10/17/2016 [employer] Interactive Patient Education ?? 2019 [employer] Emergency Awareness and Preventative Care STROKE is an EMERGENCY Every Minute Counts Act FAST and Check for these signs: FACE Does the face look uneven? ARM Does one arm drift down? SPEECH Does their speech sound strange? TIME Call at any sign of stroke Stroke Risk Factors Atrial Fibrillation (irregular heartbeat) Diabetes Family history of stroke Heart Disease Heavy alcohol use High Blood Pressure High Cholesterol Physical inactivity and obesity Smoking Cigarette Smoking The facts are clear, cigarette smoking will shorten your life. Smoking can cause many illnesses along the way. As a healthcare provider, we recommend that you stop smoking. Assistance with quitting is available by contacting 7-803-JAMI-NOW. This is a free resource providing counseling, support, and referral. Or you may contact your personal physician. National Suicide Prevention Lifeline: The National Suicide Prevention Lifeline is a national network of local crisis centers that provides free and confidential emotional support to people in suicidal crisis or emotional distress 24 hours a day, 7 days a week. Don't Wait! Stop a Heart Attack Before it Starts What is a heart attack? A heart attack is damage or to a part of the heart from severely decreased or lack of blood flow to the heart. Over time, arteries can become narrow from the buildup of fat and cholesterol, which is called plaque. The plaque can rupture causing a blood clot to form. When the blood clot forms, the artery can become severely narrowed or completely blocked, causing a heart attack. Heart attack is the leading cause of in the [place]. 85% of muscle damage occurs within the first 2 hours. Delay in the recognition of heart attack symptoms increases the chances of . Know the early symptoms of a heart attack: Nausea Feeling of fullness in chest Jaw Pain Pain that travels down one or both arms Fatigue/being tired Anxiety Back Pain Chest pressure, squeezing, or discomfort Shortness of breath Sweating, or a cold sweat Feeling of impending doom There are unusual signs of a heart attack, too! Women, the elderly, and diabetics may present with atypical symptoms: Fainting/dizziness Weakness Confusion Risk Factors for a Heart Attack Some heart disease risk factors, such as age and family history, cannot be changed. Others, like smoking and lack of exercise, can be changed. Smoking High Cholesterol High Blood Pressure Family History Obesity Age Gender (Males are at higher risk) Lack of Exercise Diabetes Diet Stress Excessive Alcohol Intake If you or someone you know is experiencing the signs and symptoms of a heart attack, DON???T DELAY. Call immediately and seek help. If someone collapses, perform CPR! Do not attempt to drive if you are having symptoms of heart attack. Hands-Only CPR Why Hands-Only CPR? Hands-Only CPR has been shown to be as effective as conventional CPR for cardiac arrests that occur outside of a hospital. Survival depends on immediately receiving CPR from someone nearby. How do you perform Hands-Only CPR? There are two easy steps: Call if you see a teen or adult collapse Push hard and fast in the center of the chest at a beat of 100 beats per minute. Save a life! 4 WAYS TO GET AHEAD OF SEPSIS SEPSIS is a MEDICAL EMERGENCY. Time matters! Infections put you and your family at risk for a life-threatening condition called sepsis. Sepsis is the body's extreme response to an infection. It is life-threatening, and without timely treatment, sepsis can rapidly lead to tissue damage, organ failure, and . Sepsis happens when an infection you already have-in your skin, lungs, urinary tract or somewhere else-triggers a chain reaction throughout your body. 1 PREVENT INFECTIONS Take good care of chronic conditions. Talk to your doctor about getting the recommended vaccines. 2 PRACTICE GOOD HYGIENE Wash your hands frequently. Keep cuts or open sores clean and covered until they are healed. 3 KNOW THE SYMPTOMS Confusion or disorientation Shortness of breath High heart rate Fever, shivering, or feeling very cold Extreme pain or discomfort Clammy or sweaty skin 4 ACT FAST Get medical care IMMEDIATELY if you suspect sepsis or if you have an infection that is not getting better or is getting worse. To learn more about sepsis and how to prevent infections, visit www.cdc.gov/sepsis. Test Results Laboratory or Other Results This Visit (last charted value for your 07/22/2019 visit) Hematology 07/27/2019 2:19 AM WBC: 8.3 K/uL -- Normal range between ( 4.5 and 10.5 ) RBC: 3.75 Million/uL -- Normal range between ( 3.93 and 5.22 ) Hct: 34.3 % -- Normal range between ( 34.1 and 44.9 ) Hgb: 11.4 g/dL -- Normal range between ( 11.2 and 15.7 ) Platelet Count: 145 K/uL -- Normal range between ( 163 and 369 ) MCH: 30.4 pg -- Normal range between ( 25.6 and 32.2 ) MCHC: 33.2 Gram/dL -- Normal range between ( 32.2 and 36.5 ) MCV: 91.5 fL -- Normal range between ( 79.0 and 94.8 ) Slide Review: No RDW: 13.2 % -- Normal range between ( 11.7 and 14.9 ) MPV: 13.9 fL -- Normal range between ( 9.4 and 12.4 ) 07/26/2019 6:25 AM Eos %: 2.6 % -- Normal range between ( 0.0 and 7.0 ) Haywood #: 0.57 K/uL -- Normal range between ( 0.16 and 1.00 ) Eos #: 0.21 x10(3)/uL -- Normal range between ( 0.00 and 0.80 ) [place]wood %: 7.1 % -- Normal range between ( 3.0 and 9.0 ) Baso %: 0.6 % -- Normal range between ( 0.0 and 1.5 ) Baso #: 0.05 x10(3)/uL -- Normal range between ( 0.00 and 0.20 ) Neut %: 63.5 % -- Normal range between ( 34.0 and 71.0 ) Neut #: 5.13 K/uL -- Normal range between ( 1.56 and 6.13 ) Lymph %: 25.7 % -- Normal range between ( 19.3 and 53.1 ) Lymph #: 2.07 x10(3)/uL -- Normal range between ( 1.00 and 3.90 ) IG#: 0.04 x10(3)/uL -- Normal range between ( 0.00 and 0.05 ) IG%: 0.50 % -- Normal range between ( 0.00 and 0.60 ) Urinalysis 07/23/2019 12:44 PM Urine Nitrite: Negative Urine Leukocyte Esterase: Negative Urine Appearance: Clear Urine Glucose Dipstick: Negative Urine Blood Dipstick: Negative Urine Type: U CleanCatch Urine Urobilinogen Dipstick: 0.2 EU/dL Urine Protein Dipstick: Negative Urine Color: Yellow Urine Ketones Dipstick: Negative Urine pH Dipstick: 7.0 -- Normal range between ( 6.0 and 8.0 ) Urine Bilirubin Dipstick: Negative Urine Specific [place]: 1.008 -- Normal range between ( 1.005 and 1.030 ) Microbiology 07/21/2019 1:33 AM MRSA Surveillance: See Result Urine Chemistry 07/23/2019 12:44 PM Creatinine Urine Random: 24 mg/dL Sodium Ur [place]: 104 mMole/Liter Protein Ur [place]: 8 mg/dL 07/21/2019 0:41 AM Urea Nitrogen Urine Random: 206 mg/dL General Chemistry 07/27/2019 2:19 AM Creatinine Level: 2.10 mg/dL -- Normal range between ( 0.55 and 1.02 ) Sodium Level: 139 mmol/L -- Normal range between ( 136 and 146 ) Potassium Level: 3.5 mmol/L -- Normal range between ( 3.5 and 5.1 ) Chloride Level: 108 mmol/L -- Normal range between ( 102 and 112 ) Carbon Dioxide Level: 27 mmol/L -- Normal range between ( 21 and 32 ) Anion Gap: 8 -- Normal range between ( 9 and 20 ) Bun/Creatinine: 9.0 -- Normal range between ( 8.0 and 20.0 ) Calcium Level: 9.0 mg/dL -- Normal range between ( 8.4 and 10.1 ) eGFR : 30 mL/min/1.73m2 eGFR NonAfrican: 25 mL/min/1.73m2 Glucose Level: 115 mg/dL -- Normal range between ( 74 and 106 ) Blood Urea Nitrogen: 19 mg/dL -- Normal range between ( 7 and 22 ) 07/21/2019 1:22 AM Bilirubin Total: 0.6 mg/dL -- Normal range between ( 0.2 and 1.2 ) Hgb A1C: 5.5 % A/G Ratio: 0.8 -- Normal range between ( 1.1 and 2.5 ) ALT: 12 Units/Liter -- Normal range between ( 13 and 56 ) AST: 12 Units/Liter -- Normal range between ( 5 and 37 ) Globulin: 3.3 Gram/dL -- Normal range between ( 1.5 and 4.5 ) Alk Phos: 81 Units/Liter -- Normal range between ( 27 and 136 ) eAVG Glucose: 111 mg/dL Magnesium Level: 1.9 mg/dL -- Normal range between ( 1.5 and 2.4 ) Protein Total: 6.1 Gram/dL -- Normal range between ( 6.4 and 8.2 ) Albumin Level: 2.8 Gram/dL -- Normal range between ( 3.4 and 5.0 ) Cardiac Specific Markers 07/22/2019 3:25 AM ProBNP: 6814 pg/mL -- Normal range between ( 0 and 125 ) 07/21/2019 12:04 PM Troponin I Ultra: 0.038 ng/mL -- Normal range between ( 0.015 and 0.045 ) Coagulation 07/27/2019 2:29 AM PTT Heparin: 52.3 Second(s) -- Normal range between ( 50.0 and 75.0 ) 2019 7:48 PM INR: 1.0 -- Normal range between ( 0.9 and 1.1 ) PT: 10.7 Second(s) -- Normal range between ( 9.6 and 12.0 ) Lipid Studies 07/22/2019 3:25 AM Cholesterol Tot: 198 mg/dL -- Normal range between ( 0 and 199 ) Cholesterol HDL: 54.0 mg/dL Cholesterol LDL Calculation: 125.0 mg/dL -- Normal range between ( 0.0 and 99.0 ) Cholesterol VLDL Calculation: 19.0 mg/dL -- Normal range between ( 5.0 and 40.0 ) Cholesterol/HDL Ratio: 3.7 -- Normal range between ( 0.0 and 3.2 ) Triglyceride: 95 mg/dL -- Normal range between ( 0 and 249 ) LDL/HDL Ratio: 2.3 -- Normal range between ( 0.0 and 3.2 ) Fasting?: Yes Endocrinology 2019 7:48 PM TSH: 1.010 mcInt Units/mL -- Normal range between ( 0.358 and 3.740 ) Toxicology 07/23/2019 12:44 PM UDS Amp: NEGATIVE UDS Ilsa: NEGATIVE UDS Benzo: NEGATIVE UDS Inez: NEGATIVE UDS Opi: NEGATIVE UDS PCP: NEGATIVE UDS TCA: NEGATIVE UDS THC: POSITIVE UDS pH: 8.0 Diagnostic Radiology 2019 8:30 PM CR Chest 1 Vw Portable: CR Chest 1 Vw Portable Ultrasound 07/21/2019 10:56 AM US Renal Comp: US Renal Comp Echo 07/21/2019 9:38 AM EC Echo Complete: EC Echo Complete Patient Name:CORRIE SMITH I have received and understand this information and was given the opportunity to ask questions. Patient/Etcher Aircraft Name: Patient/Etcher Aircraft Signature: Relationship to Patient: Clinician/Hospital Etcher Aircraft Signature: Date: documented in this encounter Plan of Treatment Upcoming Encounters Date Type Department Care Team (Late st Contact Info) Description 04/12/2025 7:30 AM EDT Hospital Encounter [facility] Operating Room [address] [place] [address] Bill Graham MD [address] [place], [place] [id number] 04/12/2025 7:30 AM EDT Anesthesia Event [facility] Operating [address] [place] [phone] Lucio Szymanski MD [address] [place] [address] 04/12/2025 7:30 AM EDT - 04/12/2025 8:55 AM EDT Surgery [facility] [address] [place] [address] Bill Graham MD [address] [place] [address] [address] (LAPAROSCOPIC PERITONEAL DIALYSIS CATHETER INSERTION) Scheduled Procedures Name Priority Associated Diagnoses Date/Ti me LAPAROSCOPY, WITH PERITONEAL DIALYSIS CATHETER INSERTION Chronic kidney disease, stage V (HCC) 04/12/2025 7:30 AM EDT documented as of this encounter Visit Diagnoses Not on filedocumented in this encounter Care Teams Talent Solutions Manager Relationship Specialty Start Date End Date Félix Monroe, MANAGER LINUX [address] [facility] [address] [place] [address] PCP - General Nurse Practitioner 08/25/22 documented as of this encounter
--- OUTSIDE RECORDS SUMMARY | 2025-04-11 11:07 | XMS_ITS | Encounter Summary ---
Author Organization [employer] ([place], [place], [place], [place]) Address [address] [place] [address] Care Team Providers Care Memory Care Director Name Role Phone Félix Monroe APRN Primary Care Provider [phone] Encounter Details Date Type Department Care Team (Late st Contact Info) Description 07/27/2019 Transcribed Document [facility] [place] Medicine [address] [place] [address] ProviderMaria Esther MD [address] [place] [address] Social History Tobacco Use Types Packs/Day Years Used Date Smoking Tobacco: Never Assessed Comments Unknown Sex and Gender Information Value Date Recorded Sex Assigned at Not on file Legal Sex Female 6:53 PM CDT Gender Identity Not on file Sexual Orientation Not on file documented as of this encounter Miscellaneous Notes * Cerner Conversion Note - Maria Esther ProviderMD - 07/27/2019 2:00 AM SENIOR FORMULATION SCIENTIST Childcare Administrator Details Entered On: 07/27/2019 2:30 EST Performed On: 07/27/2019 2:00 EST by MERARY WHITAKER RN Order Details Transport Mode Order Detail : Ambulatory Isolation Precautions Order Detail : Standard Precautions Order Detail : 0 IV Order Detail : 1 Oxygen Order Detail : 0 Nurse Collect Order Detail : 0 Lift/Transfer : Independent Central Line Order Detail : No Room Service : Appropriate Arterial Line : No MERARY WHITAKER RN - 07/27/2019 2:30 EST documented in this encounter Plan of Treatment Upcoming Encounters Date Type Department Care Team (Late st Contact Info) Description 04/12/2025 7:30 AM EDT Hospital Encounter [facility] Operating Room 1 [place] [address] [place] [address] [place] [address] [address] [place] [address] 04/12/2025 7:30 AM EDT Anesthesia Event [facility] Operating Room [address] [place] [address] Lucio Szymanski MD [address] [place] [address] 04/12/2025 7:30 AM EDT - 04/12/2025 8:55 AM EDT Surgery [facility] [address] [place] [address] Bill Graham MD [address] [place] [address] [place] [address] (LAPAROSCOPIC PERITONEAL DIALYSIS CATHETER INSERTION) Scheduled Procedures Name Priority Associated Diagnoses Date/Ti me LAPAROSCOPY, WITH PERITONEAL DIALYSIS CATHETER INSERTION Chronic kidney disease, stage V (HCC) 04/12/2025 7:30 AM EDT documented as of this encounter Visit Diagnoses Not on filedocumented in this encounter Care Teams Memory Care Director Relationship Specialty Start Date End Date Félix Monroe, HORSE RACE STARTER [address] [facility] [address] [place] [address] PCP - General Nurse Practitioner 08/25/22 documented as of this encounter
--- OUTSIDE RECORDS SUMMARY | 2025-04-11 11:07 | XMS_ITS | Encounter Summary ---
Author Organization [employer] ([place], [place], [place], [place]) Address [address] [address] Care Team Providers Care Fire Apparatus Sprinkler Inspector Name Role Phone Fer Félix Francisco RODRIGUEZ Primary Care Provider Encounter Details Date Type Department Care Team (Late st Contact Info) Description 07/27/2019 Transcribed Document [facility] [place] [address] [place] [address] ProviderMaria Esther MD [address], [place] [address] Social History Tobacco Use Types Packs/Day Years Used Date Smoking Tobacco: Never Assessed Comments Unknown Sex and Gender Information Value Date Recorded Sex Assigned at Not on file Legal Sex Female 6:53 PM CDT Gender Identity Not on file Sexual Orientation Not on file documented as of this encounter Miscellaneous Notes * Cerner Conversion Note - Maria Esther ProviderMD - 07/27/2019 3:20 PM ONLINE MARKETING COORDINATOR On Going Discharge Planning Entered On: 07/27/2019 15:21 EST Performed On: 07/27/2019 15:20 EST by Yolanda Ramsey RN-Duplicator Punch Set Up OperatorInventory Assistant Progress Note Discharge Arrangements : Patient Post-Acute [...] Attend Multidisciplinary Rounds? : Yes Yolanda Ramsey RN-Duplicator Punch Set Up Operator - 07/27/2019 15:20 EST Narrative Progress Note Narrative Progress Note : Clinical chart reviewed. Plan for LHC today and possibly valve replacement pending circulation man recommendations. CM will continue to follow. Historical Progress Note : CM reviewed chart. Pt is scheduled for a heart cath tomorrow. Cm will continue to follow for needs. KAREL CAMPBELL RN-Music Arranger - 07/26/19 17:16:43 HD#3 Clinical chart reviewed. Waiting on nephrology clearance for LHC and probable valve replacement surgery. CM will continue to follow for discharge planning needs. Yolanda Ramsey RN-Duplicator Punch Set Up Operator - 07/25/19 15:47:19 49 year old female with PMH valvular heart disease, CHF, COPD with ongoing tobacco abuse presented to [facility] with worsening SOB. Patient hospitalized 7 years ago for leaking valve , echo - severe mitral regurg. BNP 12704. Nephrology consult: CKD stage III. Plan: LHC when renal function allows. Patient tentively scheduled for surgery on Wednesday. CM will continue to follow for discharge planning. Yolanda Ramsey RN-Duplicator Punch Set Up Operator - 07/24/19 16:26:17 Yolanda Ramsey RN-Duplicator Punch Set Up Operator - 07/27/2019 15:20 EST Electronically signed by Evaristo Loyola Conversion Carpenter Supervisor Wooden Ship Cerner at 10/28/2022 7:15 PM CDT documented in this encounter Plan of Treatment Upcoming Encounters Date Type Department Care Team (Late st Contact Info) Description 04/12/2025 7:30 AM EDT Hospital Encounter [facility] [address] Room [address] [place] [phone] [place] [address] [place] [address] [address] [place] [phone] 04/12/2025 7:30 AM EDT Anesthesia Event [facility] Operating Room [address] [place] [phone] Lucio Szymanski MD [address] [place] [phone] 04/12/2025 7:30 AM EDT - 04/12/2025 8:55 AM EDT Surgery [facility] Operating Room [address] [place] [address] Bill Graham MD [address] [facility] [address] [place] [address] (LAPAROSCOPIC PERITONEAL DIALYSIS CATHETER INSERTION) Scheduled Procedures Name Priority Associated Diagnoses Date/Ti me LAPAROSCOPY, WITH PERITONEAL DIALYSIS CATHETER INSERTION Chronic kidney disease, stage V (HCC) 04/12/2025 7:30 AM EDT documented as of this encounter Visit Diagnoses Not on filedocumented in this encounter Care Teams Fire Apparatus Sprinkler Inspector Relationship Specialty Start Date End Date Félix Monroe, REMOTE INPATIENT CODER [address] [facility] [address] [place] [address] PCP - General Nurse Practitioner 08/25/22 documented as of this encounter
--- OUTSIDE RECORDS SUMMARY | 2025-04-11 11:07 | XMS_ITS | Encounter Summary ---
Author Organization [facility] ([place], [place], [place], [place]) Address [address] [address] Care Team Providers Care Hooker Operator Name Role Phone Félix Monroe APRN Primary Care Provider [phone] Encounter Details Date Type Department Care Team (Late st Contact Info) Description 08/29/2019 Transcribed Document [facility] [place] Family Medicine [address] [place] [address] ProviderMaria Esther MD [address] [place] [address] Social History Tobacco Use Types Packs/Day Years Used Date Smoking Tobacco: Never Assessed Comments Unknown Sex and Gender Information Value Date Recorded Sex Assigned at Not on file Legal Sex Female 6:53 PM CDT Gender Identity Not on file Sexual Orientation Not on file documented as of this encounter Miscellaneous Notes * Cerner Conversion Note - Historical ProviderMD - 08/29/2019 10:17 AM LEAF TINNER Consult Phone Call Documentation Entered On: 08/29/2019 13:13 EST Performed On: 08/29/2019 10:17 EST by Shawna Tyler Assembler Mechanical Ordnance-Health Unit Coord Phone Call for Consults Consult Phone Call/Page Attempt : Other: Mitral Valve not CABG Consult Reason : Mitral Valve Shawna Tyler Assembler Mechanical Ordnance-Health Unit Coord - 08/29/2019 13:12 EST Electronically signed by Nir [facility] Conversion Rv Body Mechanic Cerner at 10/28/2022 7:22 PM CDT documented in this encounter Plan of Treatment Upcoming Encounters Date Type Department Care Team (Late st Contact Info) Description 04/12/2025 7:30 AM EDT Hospital Encounter [facility] Operating Room [address] [place] [address] Bill Graham MD [address] [facility] [address] [place] [address] 04/12/2025 7:30 AM EDT Anesthesia Event [facility] Operating [address] [place] [address] Lucio Szymanski MD [address] [place] [address] 04/12/2025 7:30 AM EDT - 04/12/2025 8:55 AM EDT Surgery [facility] Operating [address] [place] [address] [place] [address] [place] [address] [address] [place] [id number] (LAPAROSCOPIC PERITONEAL DIALYSIS CATHETER INSERTION) Scheduled Procedures Name Priority Associated Diagnoses Date/Ti me LAPAROSCOPY, WITH PERITONEAL DIALYSIS CATHETER INSERTION Chronic kidney disease, stage V (HCC) 04/12/2025 7:30 AM EDT documented as of this encounter Visit Diagnoses Not on filedocumented in this encounter Care Teams Hooker Operator Relationship Specialty Start Date End Date Félix Monroe, SALES ESTIMATOR [address] [facility] [address] [place] [address] PCP - General Nurse Practitioner 08/25/22 documented as of this encounter
--- OUTSIDE RECORDS SUMMARY | 2025-04-11 11:07 | XMS_ITS | Encounter Summary ---
Author Organization [employer] ([place], [place], [place], [place]) Address [address] [place] [address] Care Team Providers Care Economic Research Assistant Name Role Phone éFlix Monroe APRN Primary Care Provider [phone] Encounter Details Date Type Department Care Team (Late st Contact Info) Description 07/27/2019 Transcribed Document [facility] [place] Family Medicine [address] [place] [address] ProviderMaria Esther MD [address] [place], [place] [id number] Social History Tobacco Use Types Packs/Day Years Used Date Smoking Tobacco: Never Assessed Comments Unknown Sex and Gender Information Value Date Recorded Sex Assigned at Not on file Legal Sex Female 6:53 PM CDT Gender Identity Not on file Sexual Orientation Not on file documented as of this encounter Miscellaneous Notes * Cerner Conversion Note - Maria Esther ProviderMD - 07/27/2019 4:28 PM ASSOCIATE OF SCIENCE IN NURSING Nursing Discharge Summary Entered On: 07/27/2019 16:28 EST Performed On: 07/27/2019 16:28 EST by LATISHA BELLE, environmental health manager Documentation Discharge Date/Time : 07/27/2019 17:15 EST LATISHA BELLE, CROW - 07/27/2019 17:12 EST Patient Disposition, General : Discharge Discharge To : Home with ambulatory/outpatient follow-up Mode Of Departure, General Discharge : Private vehicle, Wheelchair Accompanied By, Discharge : Spouse IV Discontinued : Yes Personal Belongings With Patient : Yes Prescriptions Given to Patient : Electronically sent Discharge Instructions Reviewed With, Opportunity For Questions Given : Patient, Spouse Patient Education Completed : Yes Teaching Method : Explanation, Printed materials Teaching Evaluation : Returns demonstration, Verbalizes understanding LATISHA BELLE, RN - 07/27/2019 16:28 EST documented in this encounter Plan of Treatment Upcoming Encounters Date Type Department Care Team (Late st Contact Info) Description 04/12/2025 7:30 AM EDT Hospital Encounter [facility] Operating Room [address] [place] [id number] [place] [address] [place] [address] 04/12/2025 7:30 AM EDT Anesthesia Event [facility] [address] [place] [address] Lucio Szymanski MD [address] [place] [id number] 04/12/2025 7:30 AM EDT - 04/12/2025 8:55 AM EDT Surgery [facility] [address] [place] [address] Bill Graham MD [address] [place] [phone] (LAPAROSCOPIC PERITONEAL DIALYSIS CATHETER INSERTION) Scheduled Procedures Name Priority Associated Diagnoses Date/Ti me LAPAROSCOPY, WITH PERITONEAL DIALYSIS CATHETER INSERTION Chronic kidney disease, stage V (HCC) 04/12/2025 7:30 AM EDT documented as of this encounter Visit Diagnoses Not on filedocumented in this encounter Care Teams Economic Research Assistant Relationship Specialty Start Date End Date Félix Monroe, VACCINE SPECIALIST [address] [facility] [address] [place], [place] [id number] PCP - General Nurse Practitioner 08/25/22 documented as of this encounter
--- OUTSIDE RECORDS SUMMARY | 2025-04-11 11:07 | XMS_ITS | Encounter Summary ---
Author Organization [facility] ([place], [place], [place], [place]) Address [address] [place] [address] Care Team Providers Care Crosscutter Rolled Glass Name Role Phone Félix Monroe APRN Primary Care Provider [phone] Encounter Details Date Type Department Care Team (Late st Contact Info) Description 08/29/2019 Transcribed Document [facility] [place] [address] [place] [address] ProviderMaria Esther MD [address], [place] [address] Social History Tobacco Use Types Packs/Day Years Used Date Smoking Tobacco: Never Assessed Comments Unknown Sex and Gender Information Value Date Recorded Sex Assigned at Not on file Legal Sex Female 6:53 PM CDT Gender Identity Not on file Sexual Orientation Not on file documented as of this encounter Miscellaneous Notes * Cerner Conversion Note - Maria Esther Reyes MD - 08/29/2019 8:09 AM 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 Name: AWAIS SMITH D.O.B./Sex: 1970 Female Med Rec #: [id number] Physician: ALESHA EMERY MD-CAT Financial #: [id number] Pt. Type: I Room/Bed: [facility] Admit/Disch: 08/29/19 07:08:00 - Institution: [facility] IntraOp Case Attendance Entry 1 Entry 2 Entry 3 Case Attendee ALESHA EMERY MD-[facility], HELIO HUNT ROY MD-ANS Role Performed Surgeon/Proceduralist, Anesthesiologist Scrub, First First Time In 08/29/19 07:08:00 08/29/19 07:08:00 08/29/19 07:08:00 Time Out 08/29/19 10:34:00 08/29/19 08:55:00 08/29/19 09:28:00 Procedure Transesophageal Transesophageal Transesophageal Echocardiogram, Atrial Echocardiogram, Atrial Echocardiogram, Atrial Appendage Appendage Appendage Ligation(Left), Mitral Ligation(Left), Mitral Ligation(Left), Mitral Valve Repair Valve Repair Valve Repair Other Attendee Superficial Wound Closed By: Last Modified By: MARRY LUU, RN MARRY LUU, RN MARRY LUU, RN 08/29/19 10:35:33 08/29/19 10:35:33 08/29/19 10:35:33 Entry 4 Entry 5 Entry 6 Case Attendee SABRINA CONLEY PA Proffitt, Debbie, RN BELL, MARRY Mustafa, RN Role Performed Physician pest controller assistant Tank Farm Gauger, First Tank Farm Gauger, Second Time In 08/29/19 07:08:00 08/29/19 07:08:00 08/29/19 07:08:00 Time Out 08/29/19 07:40:00 08/29/19 08:35:00 08/29/19 08:15:00 Procedure Transesophageal Transesophageal Transesophageal Echocardiogram, Atrial Echocardiogram, Atrial Echocardiogram, Atrial Appendage Appendage Appendage Ligation(Left), Mitral Ligation(Left), Mitral Ligation(Left), Mitral Valve Repair Valve Repair Valve Repair Other Attendee Superficial Wound Closed By: Last Modified By: MARRY LUU, RN MARRY LUU, RN MARRY LUU, RN 08/29/19 10:35:33 08/29/19 10:35:33 08/29/19 10:35:33 Entry 7 Entry 8 Entry 9 Case Attendee SHARON SETHI PEPPER, PATRICK, PA ALTIZER, LISA E, RN Microbiology Supervisor Role Performed Microbiology Supervisor Physician pest controller assistant Tank Farm Gauger, First Time In 08/29/19 07:08:00 08/29/19 08:29:00 08/29/19 08:29:00 Time Out 08/29/19 10:34:00 08/29/19 10:34:00 08/29/19 10:34:00 Procedure Transesophageal Atrial Appendage Transesophageal Echocardiogram, Atrial Ligation(Left), Mitral Echocardiogram, Atrial Appendage Valve Repair Appendage Ligation(Left), Mitral Ligation(Left), Mitral Valve Repair Valve Repair Other Attendee Superficial Wound Closed By: Last Modified By: MARRY LUU RN MARRY LUU, RN MARRY LUU, CROW 08/29/19 10:35:33 08/29/19 10:35:33 08/29/19 10:35:33 Entry 10 Entry 11 Entry 12 Case Attendee KELTON GRIER SANTROCK, DALE ALAN, BLAIR, NATHAN, ST MD-ANS -ANS Role Performed Anesthesiologist Anesthesiologist Scrub, First Time In 08/29/19 08:55:00 08/29/19 09:08:00 08/29/19 09:26:00 Time Out 08/29/19 09:08:00 08/29/19 10:34:00 08/29/19 10:34:00 Procedure Transesophageal Transesophageal Transesophageal Echocardiogram, Atrial Echocardiogram, Atrial Echocardiogram, Atrial Appendage Appendage Appendage Ligation(Left), Mitral Ligation(Left), Mitral Ligation(Left), Mitral Valve Repair Valve Repair Valve Repair Other Attendee Superficial Wound Closed By: Last Modified By: MARRY LUU RN MARRY LUU, RN MARRY LUU, RN 08/29/19 10:35:33 08/29/19 10:35:33 08/29/19 10:35:33 Entry 13 Entry 14 Case Attendee Florinda Urban RN SKIDMORE, ROY Role Performed Tank Farm Gauger, First Scrub, First Time In 08/29/19 10:02:00 08/29/19 10:03:00 Time Out 08/29/19 10:34:00 08/29/19 10:34:00 Procedure Transesophageal Transesophageal Echocardiogram, Atrial Echocardiogram, Atrial Appendage Appendage Ligation(Left), Mitral Ligation(Left), Mitral Valve Repair Valve Repair Other Attendee Superficial Wound Closed By: Last Modified By: MARRY LUU, RN KIARRA LUUA E, RN 08/29/19 10:35:33 08/29/19 10:35:33 [facility] IntraOp Case Attendance Audit 08/29/19 10:35:33 Clinical Sociologist: ALTIZEL Modifier: ALTIZEL 1 <*> Procedure Transesophageal Echocardiogram, Atrial Appendage Ligation(Left) 2 <*> Procedure Transesophageal Echocardiogram, Atrial Appendage Ligation(Left) 3 <*> Procedure Transesophageal Echocardiogram, Atrial Appendage Ligation(Left) 4 <*> Procedure Transesophageal Echocardiogram, Atrial Appendage Ligation(Left) 5 <*> Procedure Transesophageal Echocardiogram, Atrial Appendage Ligation(Left) 6 <*> Procedure Transesophageal Echocardiogram, Atrial Appendage Ligation(Left) 7 <*> Procedure Transesophageal Echocardiogram, Atrial Appendage Ligation(Left) 8 <*> Procedure Atrial Appendage Ligation(Left) 9 <*> Procedure Transesophageal Echocardiogram, Atrial Appendage Ligation(Left) 10 <*> Procedure Transesophageal Echocardiogram, Atrial Appendage Ligation(Left) 11 <*> Procedure Transesophageal Echocardiogram, Atrial Appendage Ligation(Left) 12 <*> Procedure Transesophageal Echocardiogram, Atrial Appendage Ligation(Left) 13 <*> Procedure Transesophageal Echocardiogram, Atrial Appendage Ligation(Left) 14 <*> Procedure Transesophageal Echocardiogram, Atrial Appendage Ligation(Left) 08/29/19 10:34:54 Clinical Sociologist: ALTIZEL Modifier: ALTIZEL 1 <*> Procedure Mitral Valve Replacement, Transesophageal Echocardiogram, Atrial Appendage Ligation(Left) 2 <*> Procedure Mitral Valve Replacement, Transesophageal Echocardiogram, Atrial Appendage Ligation(Left) 3 <*> Procedure Mitral Valve Replacement, Transesophageal Echocardiogram, Atrial Appendage Ligation(Left) 4 <*> Procedure Mitral Valve Replacement, Transesophageal Echocardiogram, Atrial Appendage Ligation(Left) 5 <*> Procedure Mitral Valve Replacement, Transesophageal Echocardiogram, Atrial Appendage Ligation(Left) 6 <*> Procedure Mitral Valve Replacement, Transesophageal Echocardiogram, Atrial Appendage Ligation(Left) 7 <*> Procedure Mitral Valve Replacement, Transesophageal Echocardiogram, Atrial Appendage Ligation(Left) 8 <*> Procedure Mitral Valve Replacement, Atrial Appendage Ligation(Left) 9 <*> Procedure Mitral Valve Replacement, Transesophageal Echocardiogram, Atrial Appendage Ligation(Left) 10 <*> Procedure Mitral Valve Replacement, Transesophageal Echocardiogram, Atrial Appendage Ligation(Left) 11 <*> Procedure Mitral Valve Replacement, Transesophageal Echocardiogram, Atrial Appendage Ligation(Left) 12 <*> Procedure Mitral Valve Replacement, Transesophageal Echocardiogram, Atrial Appendage Ligation(Left) 13 <*> Procedure Mitral Valve Replacement, Transesophageal Echocardiogram, Atrial Appendage Ligation(Left) 14 <*> Procedure Mitral Valve Replacement, Transesophageal Echocardiogram, Atrial Appendage Ligation(Left) 08/29/19 10:33:57 Clinical Sociologist: ALTIZEL Modifier: ALTIZEL 1 <+> Time Out 1 <*> Procedure Mitral Valve Replacement, Transesophageal Echocardiogram, Atrial Appendage Ligation(Left) 2 <*> Procedure Mitral Valve Replacement, Transesophageal Echocardiogram, Atrial Appendage Ligation(Left) 3 <*> Procedure Mitral Valve Replacement, Transesophageal Echocardiogram, Atrial Appendage Ligation(Left) 4 <*> Procedure Mitral Valve Replacement, Transesophageal Echocardiogram, Atrial Appendage Ligation(Left) 5 <*> Procedure Mitral Valve Replacement, Transesophageal Echocardiogram, Atrial Appendage Ligation(Left) 6 <*> Procedure Mitral Valve Replacement, Transesophageal Echocardiogram, Atrial Appendage Ligation(Left) 7 <+> Time Out 7 <*> Procedure Mitral Valve Replacement, Transesophageal Echocardiogram, Atrial Appendage Ligation(Left) 8 <+> Time Out 8 <*> Procedure Mitral Valve Replacement, Atrial Appendage Ligation(Left) 9 <+> Time Out 9 <*> Procedure Mitral Valve Replacement, Transesophageal Echocardiogram, Atrial Appendage Ligation(Left) 10 <*> Procedure Mitral Valve Replacement, Transesophageal Echocardiogram, Atrial Appendage Ligation(Left) 11 <+> Time Out 11 <*> Procedure Mitral Valve Replacement, Transesophageal Echocardiogram, Atrial Appendage Ligation(Left) 12 <+> Time Out 12 <*> Procedure Mitral Valve Replacement, Transesophageal Echocardiogram, Atrial Appendage Ligation(Left) 13 <+> Time Out 13 <*> Procedure Mitral Valve Replacement, Transesophageal Echocardiogram, Atrial Appendage Ligation(Left) 14 <+> Time Out 14 <*> Procedure Mitral Valve Replacement, Transesophageal Echocardiogram, Atrial Appendage Ligation(Left) 08/29/19 10:09:39 Clinical Sociologist: ALTIZEL Modifier: ALTIZEL <+> 14 Case Attendee <+> 14 Role Performed <+> 14 Time In <+> 14 Procedure 08/29/19 10:02:23 Clinical Sociologist: ALTIZEL Modifier: ALTIZEL <+> 13 Case Attendee <+> 13 Role Performed <+> 13 Time In <+> 13 Procedure 08/29/19 10:00:40 Clinical Sociologist: ALTIZEL Modifier: ALTIZEL 3 <+> Time Out 3 <*> Procedure Mitral Valve Replacement, Transesophageal Echocardiogram, Atrial Appendage Ligation(Left) <+> 12 Case Attendee <+> 12 Role Performed <+> 12 Time In <+> 12 Procedure 08/29/19 09:12:36 Clinical Sociologist: ALTIZEL Modifier: ALTIZEL 10 <+> Time Out 10 <*> Procedure Mitral Valve Replacement, Transesophageal Echocardiogram, Atrial Appendage Ligation(Left) <+> 11 Case Attendee <+> 11 Role Performed <+> 11 Time In <+> 11 Procedure 08/29/19 09:00:50 Clinical Sociologist: ALTIZEL Modifier: ALTIZEL 2 <+> Time Out 2 <*> Procedure Mitral Valve Replacement, Transesophageal Echocardiogram, Atrial Appendage Ligation(Left) <+> 10 Case Attendee <+> 10 Role Performed <+> 10 Time In <+> 10 Procedure 08/29/19 08:46:38 Clinical Sociologist: PROFITDE Modifier: ALTIZEL 1 <*> Procedure Mitral Valve Replacement, Transesophageal Echocardiogram 2 <*> Procedure Mitral Valve Replacement, Transesophageal Echocardiogram 3 <*> Procedure Mitral Valve Replacement, Transesophageal Echocardiogram 4 <*> Procedure Mitral Valve Replacement, Transesophageal Echocardiogram 5 <*> Procedure Mitral Valve Replacement, Transesophageal Echocardiogram 6 <*> Procedure Mitral Valve Replacement, Transesophageal Echocardiogram 7 <*> Procedure Mitral Valve Replacement, Transesophageal Echocardiogram 8 <*> Procedure Mitral Valve Replacement 9 <*> Procedure Mitral Valve Replacement, Transesophageal Echocardiogram 08/29/19 08:35:25 Clinical Sociologist: PROFITDE Modifier: PROFITDE <+> 5 Procedure 08/29/19 08:35:24 Clinical Sociologist: PROFITDE Modifier: PROFITDE 5 <+> Time Out 5 <-> Procedure Mitral Valve Replacement, Transesophageal Echocardiogram 08/29/19 08:31:33 Clinical Sociologist: PROFITDE Modifier: PROFITDE 6 <+> Time Out 6 <*> Procedure Mitral Valve Replacement, Transesophageal Echocardiogram <+> 8 Case Attendee <+> 8 Role Performed <+> 8 Time In <+> 8 Procedure <+> 9 Case Attendee <+> 9 Role Performed <+> 9 Time In <+> 9 Procedure 08/29/19 08:22:04 Clinical Sociologist: PROFITDE Modifier: PROFITDE 4 <+> Time Out 4 <*> Procedure Mitral Valve Replacement, Transesophageal Echocardiogram 08/29/19 07:31:28 Clinical Sociologist: PROFITDE Modifier: PROFITDE 1 <*> Procedure Mitral Valve Replacement 2 <*> Procedure Mitral Valve Replacement 3 <*> Procedure Mitral Valve Replacement 4 <*> Procedure Mitral Valve Replacement 5 <*> Procedure Mitral Valve Replacement 6 <*> Procedure Mitral Valve Replacement 7 <*> Procedure Mitral Valve Replacement [facility] IntraOp Case Times Entry 1 Patient In Room Time 08/29/19 07:08:00 Out Room Time 08/29/19 10:34:00 Anesthesia Start Time 08/29/19 07:08:00 Stop Time 08/29/19 10:34:00 Anesthesia Ready 08/29/19 07:08:00 Surgery / Procedure Times Start Time 08/29/19 08:09:00 Stop Time 08/29/19 10:24:00 Last Modified By: MARRY LUU RN 08/29/19 10:33:53 [facility] IntraOp Case Times Audit 08/29/19 10:33:53 Clinical Sociologist: ALTIZEL Modifier: ALTIZEL <+> 1 Out Room Time <+> 1 Stop Time 08/29/19 10:24:32 Clinical Sociologist: PROFITDE Modifier: ALTIZEL <+> 1 Stop Time 08/29/19 08:10:14 Clinical Sociologist: PROFITDE Modifier: PROFITDE <+> 1 Start Time [facility] IntraOp Cautery Entry 1 Entry 2 ESU Identification Cautery Type Monopolar ESU Monopolar ESU Cautery Type SURGEON OPERATES SETTING SURGEON OPERATES SETTING Comments ID Number [id number] ID Type Hospital Number Hospital Number Cautery Settings Cut Setting 1 Coag Setting 30 Blend Setting Bipolar Setting Argon Setting Argon [place] ESU Grounding Pad Ground Pad Type Adult Adult Grounding Pad Type Comment Grounding Pad Site Right Buttock Left buttock Grounding Pad Site Comment Grounding Pad Florinda Urban RN Proffitt, Debbie, RN Applied By Grounding Pad Site Warm, Dry, Intact Warm, Dry, Intact Skin Condition Before Cautery Site Skin Condition WDL WDL Before Comment Grounding Pad Site Unchanged Unchanged Skin Condition After Cautery Site Skin Condition WDL WDL After Comment Last Modified By: Florinda Urban RN Proffitt, Debbie, RN 08/29/19 07:34:33 08/29/19 07:34:33 [facility] IntraOp Communication Entry 1 Entry 2 Entry 3 Communication To Family/Significant other Other Family/Significant other Comment INCISION JJ IN CTVU INFORMED OF on pump INCISION TIME Communication By Florinda Urban, RN Florinda Urban, RN MARRY LUU RN Date and Time 08/29/19 08:09:00 08/29/19 08:09:00 08/29/19 08:41:00 Last Modified By: Florinda Urban, Florinda Reyna, RN MARRY LUU RN 08/29/19 08:18:04 08/29/19 08:18:04 08/29/19 08:43:08 Entry 4 Entry 5 Entry 6 Communication To Other Family/Significant other Other Comment [id number] pump closing-ctvu Communication By MARRY LUU RN ALTIZER, LISA E, RN MARRY LUU RN Date and Time 08/29/19 08:41:00 08/29/19 10:00:00 08/29/19 10:02:00 Last Modified By: MARRY LUU RN MARRY LUU RN MARRY LUU RN 08/29/19 08:43:08 08/29/19 10:02:00 08/29/19 10:03:45 [facility] IntraOp Communication Audit 08/29/19 10:03:45 Clinical Sociologist: ALTIZEL Modifier: ALTIZEL <+> 6 Communication By <+> 6 Date and Time <+> 6 Communication To <+> 6 Comment 08/29/19 10:02:00 Clinical Sociologist: ALTIZEL Modifier: ALTIZEL <+> 5 Communication By <+> 5 Date and Time <+> 5 Communication To 08/29/19 08:43:08 Clinical Sociologist: PROFITDE Modifier: ALTIZEL <+> 3 Communication By <+> 3 Date and Time <+> 3 Communication To <+> 3 Comment <+> 4 Communication By <+> 4 Date and Time <+> 4 Communication To <+> 4 Comment [facility] IntraOp Counts Verification Entry 1 Entry 2 Procedure Mitral Valve Repair Transesophageal Echocardiogram, Atrial Appendage Ligation(Left), Mitral Valve Repair Count Info Count Type Sponge, Sharps, Sponge, Sharps, Instrument, Instrument, Miscellaneous Miscellaneous Counts Verification Baseline/pre-procedure Before wound closure Sequence Count Results Not Applicable Correct, surgeon notified If Incorrect or Waived complete the Counts Action Taken form: If Intentional Retention, complete the Intential Retention form: Counts Performed By Count Performed By JOSEFA CADET ROY (Scrub) Count Performed By MARRY LUU RN ALTIZER, LISA E RN (RN) Last Modified By: MARRY LUU RN ALTIZER, LISA E, RN 08/29/19 10:35:36 08/29/19 10:35:36 [facility] IntraOp Counts Verification Audit 08/29/19 10:35:36 Clinical Sociologist: ALTIZEL Modifier: ALTIZEL <+> 1 Procedure 2 <*> Procedure Transesophageal Echocardiogram, Atrial Appendage Ligation(Left) 08/29/19 10:34:56 Clinical Sociologist: ALTIZEL Modifier: ALTIZEL 1 <-> Procedure Mitral Valve Replacement 2 <*> Procedure Mitral Valve Replacement, Transesophageal Echocardiogram, Atrial Appendage Ligation(Left) 08/29/19 10:11:02 Clinical Sociologist: PROFITDE Modifier: ALTIZEL <+> 2 Procedure <+> 2 Count Type <+> 2 Counts Verification Sequence <+> 2 Count Results <+> 2 Count Performed By (Scrub) <+> 2 Count Performed By (RN) [facility] IntraOp Counts Final Entry 1 Procedure Atrial Appendage Ligation(Left), Mitral Valve Repair Final Count Info Count Type Sponge, Sharps, Miscellaneous Counts Verification Skin Closure/end of Sequence procedure Count Results Correct, surgeon notified Counts Performed By Count Performed By JOSEFA CADET (Scrub) Count Performed By MARRY LUU RN (RN) Last Modified By: MARRY LUU RN 08/29/19 10:35:37 [facility] IntraOp Counts Final Audit 08/29/19 10:35:37 Clinical Sociologist: ALTIZEL Modifier: ALTIZEL 1 <*> Procedure Atrial Appendage Ligation(Left) 08/29/19 10:34:57 Clinical Sociologist: ALTIZEL Modifier: ALTIZEL 1 <*> Procedure Mitral Valve Replacement, Atrial Appendage Ligation(Left) [facility] IntraOp Cultures and Spec Summary Entry 1 Cultrures and Specimens Specimen Ordered: Yes Test(s) Routine/Path-Lab Requested/Final Disposition Last Modified By: MARRY LUU RN 08/29/19 08:46:55 [facility] IntraOp Departure from OR Entry 1 Integumentary Assessment Integumentary WDL with patient Assessment WDL specific variances Patient's Normal incision Integumentary Variance(s) Transfer/Handoff Transfer to ICU - Cardiovascular Post-op Transport Bed (including Via specialty) Patient Transport AVERY DOERamsey CHANEL, Accompanied by NAVDEEP PURI SHARON, Microbiology Supervisor, MARRY LUU RN Last Modified By: MARRY LUU RN 08/29/19 10:36:03 [facility] IntraOp Drains and Tubes Entry 1 Entry 2 Device Type Chest Tube Dashawn Sutherland flat drain Size 36 Fr. straight 10 mm flat Drain/Tube Activity Tube Tube secured/stabilized secured/stabilized, Inserted Drain/Tube Suction Bulb Drain/Tube Drainage Device Location Mediastinum Mediastinum Method of Drainage Continuous suction Compression Chest Tubes Water-Seal 20 cm suction Bulb suction Connectivity Tube Dressing Dry, Intact Dry, Intact Condition Surgical Drains and Tubes Irrigation Comment Last Modified By: MARRY LUU RN ALTIZER, LISA E, RN 08/29/19 08:47:36 08/29/19 08:47:36 [facility] IntraOp Dressing and Packing Entry 1 Type Dressing Location Chest Wound Dressing Item Occlusive dressing Applied By SABRINA CONLEY PA Other Comments AQUACEL, 4X4'S, AND TEGADERM Last Modified By: Florinda Urban RN 08/29/19 08:23:27 [facility] IntraOp Fire Risk Assessment Entry 1 Fire Info Surgical Site or 1- Yes Incision Above the Xyphoid Open O2 Source 0- No (Mask or Cannula) Available Ignition 1- Yes (ESU, Laser, Light Source) Fire Risk 2 Assessment Score Fire Score Fire Risk Yes Assessment Complete Fire Risk Florinda Urban RN Assessment Verified By Fire Risk 08/29/19 07:32:00 Assessment Verified Date/Time Fire Risk Standard Fire Yes Safety Precautions Followed Last Modified By: Florinda Urban RN 08/29/19 07:32:54 [facility] IntraOp Fire Risk Assessment Audit 08/29/19 07:32:54 Clinical Sociologist: PROFITDE Modifier: PROFITDE <+> 1 Fire Risk Assessment Complete <+> 1 Fire Risk Assessment Verified Date/Time [facility] IntraOp General Case Operations Vocational Instructor 1 Case Information OR OR 15 [facility] Case Level 2 Room Verified Yes Wound Class I - Clean Specialty SN Cardio Thoracic Anesthesia Type General ASA Class 4 Diagnosis Preop Diagnosis MITRAL VALVE DISEASE Postop Same As Preop No Postop Diagnosis PENDING PATHOLOGY Last Modified By: Florinda Urban RN 08/29/19 07:36:13 [facility] IntraOp General Case Data Audit 08/29/19 07:36:13 Clinical Sociologist: JULIO C Modifier: PROFITDE 1 <*> OR OR 14 [facility] 1 <+> ASA Class 1 <+> Anesthesia Type 1 <+> Postop Same As Preop 1 <+> Preop Diagnosis 1 <+> Postop Diagnosis 1 <+> Room Verified [facility] IntraOp Implant Log Entry 1 Type Implant (Synthetic) Implant Log Implant Type Other Implant [facility] [id number] Identification [id number] Description Implant Quantity 1 Implant Site mitral Implant [id number] Identification Serial Number Implant Medtronic:Structural Identification Heart Library Media Assistant Name: Implant [id number] Identification Catalog Number Implant Size 28 mm Implant Has an Yes Expiration Date Implant Expiration 05/10/24 Date Tissue Implant Last Modified By: MARRY LUU RN 08/29/19 09:02:35 [facility] IntraOp Intraoperative Assessment Entry 1 Handoff Report ALETHEA MORLEY RN Received from Handoff Reported to Florinda Urban RN Handoff Method Bedside/Face to face Valid History / Yes Physical in Chart Preoperative Yes Checklist Reviewed/Evaluated Allergies Reviewed Yes Patient is Latex No Sensitive Isolation Not applicable Precautions Noted Level of WDL Consciousness (WDL = Alert, Oriented to Person, Place, and Time) Patient's Normal WDL Level of Consciousness Variance(s) Skin Assessment Yes Verified Present Upon IVs Arrival to OR Last Modified By: Florinda Urban RN 08/29/19 07:35:33 [facility] IntraOp Intraoperative Equipment Entry 1 Equipment Intraop Monitoring Electrocardiogram Five lead placement (ECG) Electrode Placement Blood Pressure Arterial Pressure Line Source Blood Pressure Arterial Location Pulse Oximeter Hand, right Probe Site Antiembolic Devices Scopes Photo/Video Documentation Last Modified By: Florinda Urban RN 08/29/19 07:36:37 [facility] IntraOp Medication Admin Entry 1 Entry 2 Entry 3 Medication/Irrigant Bacitracin 50,00units lidocaine 1% 50ml vial NS 0.9% 50ml injection powder vial - [id number] - [id number] Combo Med List Time Administered Route of IN IRRIGATION AT END OF LOCAL LINES FLUSH Administration CASE Dose Dose 41798 [id number] 30 Unit of Measure units ml ml Volume Administered By ALESHA EMERY MD-CAT PEPPER, PATRICK, PA PEPPER, PATRICK, PA Procedure Irrigation Irrigant Volume In Irrigant Volume Out Last Modified By: Florinda Urban RN Proffitt, Debbie, RN Proffitt, Debbie, RN 08/29/19 08:04:29 08/29/19 08:04:29 08/29/19 08:04:29 Entry 4 Entry 5 Medication/Irrigant SPNG SURGFOAM [id number] thrombin 5000units topical kit (recombinant) - [id number] Combo Med List Time Administered Route of TOPICAL TOPICAL Administration Dose Dose 1 5000 Unit of Measure gram units Volume Administered By ALESHA EMERY MD-CAT SALLEY, ROBERT K, MD-CAT Procedure Irrigation Irrigant Volume In Irrigant Volume Out Last Modified By: Florinda Urban RN Proffitt, Debbie, RN 08/29/19 08:06:07 08/29/19 08:06:07 [facility] IntraOp Medication Admin Audit 08/29/19 08:06:07 Clinical Sociologist: PROFITDE Modifier: PROFITDE <+> 4 Medication/Irrigant <+> 4 Route of Administration <+> 4 Administered By <+> 4 Dose <+> 4 Unit of Measure <+> 5 Medication/Irrigant <+> 5 Route of Administration <+> 5 Administered By <+> 5 Dose <+> 5 Unit of Measure [facility] IntraOp Patient Positioning Entry 1 Procedure Transesophageal Echocardiogram, Mitral Valve Repair Body Position Supine Left Arm Position Tucked and padded at side Right Arm Position Tucked and padded at side Left Leg Position Uncrossed, parallel Right Leg Position Uncrossed, parallel Feet Uncrossed Yes Pressure Points Yes Checked Device Position Tempurpedic mattress pad, foam cui headrest, foam ulnar nerve protectors, wedge leg positioner, safety belt pre-prep, Positioned By Florinda Urban RN, DOE VARELA MD-ANS, MARRY LUU RN Position Verified Positioning Yes Verified by Anesthesia Positioning Yes Verified by Surgeon Last Modified By: MARRY LUU RN 08/29/19 10:35:36 [facility] IntraOp Patient Positioning Audit 08/29/19 10:35:36 Clinical Sociologist: ALTIZEL Modifier: ALTIZEL 1 <*> Procedure Transesophageal Echocardiogram 08/29/19 10:34:56 Clinical Sociologist: PROFITDE Modifier: ALTIZEL 1 <*> Procedure Mitral Valve Replacement, Transesophageal Echocardiogram [facility] IntraOp Sign In Entry 1 Patient, Site, [...] Taken Last Modified By: Florinda Urban RN 08/29/19 07:34:40 [facility] IntraOp Sign Out Entry 1 RN Confirmation [...] Florinda Urban RN Signature RN Sign Out 08/29/19 10:36:00 Signature Date/Time Plan of Care Outcome - [...] of Care Outcome - Xray/Images OUTCOME STATEMENT: N/A Absence of observable signs or symptoms of radiation injury Plan of Care Outcome - Counts OUTCOME STATEMENT: Goal met Absence of signs and symptoms of injury related to extraneous objects Last Modified By: MARRY LUU RN 08/29/19 10:36:21 [facility] IntraOp Skin Prep Entry 1 Procedure Mitral Valve Repair Prescribed Yes Pre-Surgical Prep Completed Prep Area Chin to toes, legs circumferentially Intraop Prep Integumentary WDL Assessment WDL Patients Normal WDL Integumentary Variance(s) Prep Agents Alcohol, Iodine Prep by MARRY LUU RN Skin Prep Comment Marie URBAN RN Hair Removal Last Modified By: MARRY LUU RN 08/29/19 10:35:36 [facility] IntraOp Skin Prep Audit 08/29/19 10:35:36 Clinical Sociologist: PROFITDE Modifier: ALTIZEL <+> 1 Procedure [facility] IntraOp Surgical Procedures Entry 1 Entry 2 Entry 3 Procedure Mitral Valve Repair Transesophageal Atrial Appendage Echocardiogram Ligation Modifiers Left Additional RIA, MEDIANSTERNOTOMY, PER DR. VARELA Procedure MITRAL VALVE REPAIR, Description LIGATION OF LEFT ATRIAL APPENDAGE, ON PUMP Primary Procedure Yes No No Primary Surgeon ALESHA EMERY MD-ALESHA RAINEY MD-CAT SALLEY, ROBERT K, MD-NUZHAT Start 08/29/19 08:09:00 08/29/19 08:09:00 08/29/19 08:09:00 Stop 08/29/19 10:24:00 08/29/19 10:24:00 08/29/19 10:24:00 Physician States Cecum Reached Anesthesia Type General General General Specialty SN Cardio Thoracic SN Cardio Thoracic SN Cardio Thoracic Wound Class I - Clean II - Clean-Contaminated I - Clean Last Modified By: MARRY LUU RN ALTIZER, LISA E, RN ALTIZER, LISA E, RN 08/29/19 10:35:25 08/29/19 10:35:25 08/29/19 10:35:25 [facility] IntraOp Surgical Procedures Audit 08/29/19 10:35:25 Clinical Sociologist: ALTIZEL Modifier: ALTIZEL 1 <*> Procedure Mitral Valve Replacement 1 <*> Primary Procedure No 1 <+> Stop <+> 2 Stop <+> 3 Stop 08/29/19 10:18:28 Clinical Sociologist: ALTIZEL Modifier: ALTIZEL 1 <*> Procedure Mitral Valve Replacement 1 <*> Additional Procedure Description RIA, MEDIANSTERNOTOMY, MITRAL VALVE REPAIR,, LIGATION OF LEFT ATRIAL APPENDAGE, ON PUMP 08/29/19 09:26:37 Clinical Sociologist: ALTIZEL Modifier: ALTIZEL 1 <*> Procedure Mitral Valve Replacement 1 <*> Additional Procedure Description RIA, MEDIANSTERNOTOMY, MITRAL VALVE REPLACEMENT, ON PUMP <+> 3 Start 08/29/19 08:46:22 Clinical Sociologist: PROFITDE Modifier: ALTIZEL <+> 3 Procedure <+> 3 Primary Procedure <+> 3 Modifiers <+> 3 Primary Surgeon <+> 3 Specialty <+> 3 Wound Class <+> 3 Anesthesia Type 08/29/19 08:30:36 Clinical Sociologist: PROFITDE Modifier: PROFITDE <+> 1 Start <+> 2 Start 08/29/19 07:32:20 Clinical Sociologist: PROFITDE Modifier: PROFITDE Entry 1 was deleted. Higher numbered entries shifted one position to fill the gap. <-> 1 Procedure Mitral Valve Repair <-> 1 Primary Procedure Yes <-> 1 Primary Surgeon ALESHA EMERY MD-CAT <-> 1 Specialty <-> 1 Wound Class I - Clean <-> 1 Anesthesia Type General <-> 1 Additional Procedure Description (MITRAL VALVE REPAIR VS REPLACEMENT, RIA) 2 <*> Procedure Mitral Valve Replacement 2 <*> Primary Procedure No 2 <*> Primary Surgeon ALESHA EMERY MD-CAT 2 <*> Specialty 2 <*> Wound Class I - Clean 2 <*> Anesthesia Type General 2 <+> Additional Procedure Description [facility] IntraOp Temp Regulation Devices Entry 1 Temp Regulation Temperature Forced Air Warming Regulation Device device, Warm blankets Temperature [id number] Regulation Device Serial/Unit Number Temperature Lower body Regulation Site Temperature Device 43 degrees c Setting Temperature Florinda Urban RN Regulation Device Applied by Temperature chapo hugger turned on Regulation Comment when warming started on cpb Last Modified By: MARRY LUU RN 08/29/19 08:48:39 [facility] IntraOP Time Out Entry 1 Procedure to be Transesophageal Performed Echocardiogram, Mitral Valve Repair Time Out Time Out Pause Time 08/29/19 08:08:00 All activity Yes suspended (unless life threatening [...] problems if responses among team members differ Antibiotic Yes Prophylaxis Administered Or In Progress Within the Last 60 Minutes Beta Que Yes Administered Venous Yes Thromboembolism Prophylaxis Required Anticipated Critical Events Surgeon None expected Anesthesia Provider Patient specific concerns Nursing Assures Sterility of instruments Essential Imaging N/A Labeled and Displayed Last Modified By: MARRY LUU RN 08/29/19 10:35:37 [facility] IntraOP Time Out Audit 08/29/19 10:35:37 Clinical Sociologist: ALTIZEL Modifier: ALTIZEL 1 <*> Procedure to be Performed Transesophageal Echocardiogram 08/29/19 10:34:57 Clinical Sociologist: PROFITDE Modifier: ALTIZEL 1 <*> Procedure to be Performed Mitral Valve Replacement, Transesophageal Echocardiogram Case Comments <None> Finalized By: RAMBO WASHBURN Document Signatures Signed By: MARRY LUU RN 08/29/19 10:36 RAMBO WASHBURN 08/29/19 13:59 RAMBO WASHBURN 08/30/19 12:21 Unfinalized History Date/Time Username Reason for Unfinalizing Freetext Reason for Unfinalizing 08/29/19 13:58 WATTSDR Correct Billing 08/30/19 12:19 WATTSDR Correct Billing Electronically signed by Nir [facility] Conversion Division Commander Cerner at 10/28/2022 7:07 PM CDT documented in this encounter Plan of Treatment Upcoming Encounters Date Type Department Care Team (Late st Contact Info) Description 04/12/2025 7:30 AM EDT Hospital Encounter [facility] Operating Room 1 [place] [phone] Bill Graham MD [address] [place] [address] 04/12/2025 7:30 AM EDT Anesthesia Event [facility] Operating Room 1 [place] [phone] Lucio Szymanski MD [address] [place] [id number] 04/12/2025 7:30 AM EDT - 04/12/2025 8:55 AM EDT Surgery [facility] Operating Room 1 [place] [address] Bill Graham MD [address] [facility] [address] [place] [address] (LAPAROSCOPIC PERITONEAL DIALYSIS CATHETER INSERTION) Scheduled Procedures Name Priority Associated Diagnoses Date/Ti me LAPAROSCOPY, WITH PERITONEAL DIALYSIS CATHETER INSERTION Chronic kidney disease, stage V (HCC) 04/12/2025 7:30 AM EDT documented as of this encounter Visit Diagnoses Not on filedocumented in this encounter Care Teams Crosscutter Rolled Glass Relationship Specialty Start Date End Date Félix Monroe, PRINTING PLATE SETTER [address] [facility] [address] [place], [place] [id number] PCP - General Nurse Practitioner 08/25/22 documented as of this encounter
--- OUTSIDE RECORDS SUMMARY | 2025-04-11 11:07 | XMS_ITS | Encounter Summary ---
Author Organization [email or web address] ([place], [place], [place], [place]) Address [address] [address] Care Team Providers Care Vocational Counselor Name Role Phone Félix Monroe APRN Primary Care Provider [phone] Encounter Details Date Type Department Care Team (Late st Contact Info) Description 07/27/[address] [facility] Family Medicine [address] [place] [address] ProviderMaria Esther MD [address] [place] [address] Social History Tobacco Use Types Packs/Day Years Used Date Smoking Tobacco: Never Assessed Comments Unknown Sex and Gender Information Value Date Recorded Sex Assigned at Not on file Legal Sex Female 6:53 PM CDT Gender Identity Not on file Sexual Orientation Not on file documented as of this encounter Miscellaneous Notes * Cerner Conversion Note - Historical ProviderMD - 07/27/2019 5:00 AM SIDING INSTALLER Chart Check - Review Order Profile Entered On: 07/27/2019 5:23 EST Performed On: 07/27/2019 5:00 EST by MERARY WHITAKER RN Chart Check Powerplans Initiated/Discontinued as Appropriate : Yes All Active Orders Reviewed : Yes MERARY WHITAKER RN - 07/27/2019 5:23 EST documented in this encounter Plan of Treatment Upcoming Encounters Date Type Department Care Team (Late st Contact Info) Description 04/12/2025 7:30 AM EDT Hospital Encounter [facility] Operating Room 1 [place] [address] Bill Graham MD [address] [facility] [address] [place] [address] 04/12/2025 7:30 AM EDT Anesthesia Event [facility] Operating Room 1 [place] [address] Lucio Szymanski MD [address] [place] [address] 04/12/2025 7:30 AM EDT - 04/12/2025 8:55 AM EDT Surgery [facility] Operating Room 1 [place] [address] Bill Graham MD [address] [facility] [address] [place] [address] (LAPAROSCOPIC PERITONEAL DIALYSIS CATHETER INSERTION) Scheduled Procedures Name Priority Associated Diagnoses Date/Ti me LAPAROSCOPY, WITH PERITONEAL DIALYSIS CATHETER INSERTION Chronic kidney disease, stage V (HCC) 04/12/2025 7:30 AM EDT documented as of this encounter Visit Diagnoses Not on filedocumented in this encounter Care Teams Vocational Counselor Relationship Specialty Start Date End Date Félix Monroe, ANESTHESIA ATTENDING [address] [facility] [address] [place] [address] PCP - General Nurse Practitioner 08/25/22 documented as of this encounter
--- OUTSIDE RECORDS SUMMARY | 2025-04-11 11:07 | XMS_ITS | Encounter Summary ---
Author Organization [employer] ([place], [place], [place], [place]) Address [address] [place] [address] Care Team Providers Care Logistics Vice President Name Role Phone Félix Monroe APRN Primary Care Provider [phone] Encounter Details Date Type Department Care Team (Late st Contact Info) Description 08/29/2019 Transcribed Document [facility] [place] [address] [place] [address] ProviderMaria Esther MD [address] [place], [place] [address] Social History Tobacco Use Types Packs/Day Years Used Date Smoking Tobacco: Never Assessed Comments Unknown Sex and Gender Information Value Date Recorded Sex Assigned at Not on file Legal Sex Female 6:53 PM CDT Gender Identity Not on file Sexual Orientation Not on file documented as of this encounter Miscellaneous Notes * Cerner Conversion Note - Maria Esther Reyes MD - 08/29/2019 6:00 AM RESIDENTIAL PROPERTY CONSULTANT Patient: CORRIE SMITH Age: 49 years Sex: Female : 1970 Associated Diagnoses: None Author: NAZ VOGT APRN Chief Complaint MVI Review of Systems ROS reviewed as documented in chart no change since last seen by surgeon Health Status Allergies: Allergic Reactions (Selected) Severity Not Documented Codeine- Welts, nausea and hives., Allergies (1) Active Reaction codeine Welts Current medications: (Selected) Inpatient Medications Ordered Ancef: 2 Gram, 50 mL, 100 mL/Hr, IV Piggyback, PREOP Bactroban 2% nasal ointment: 1 Application, Nostrils Both, BID Lactated Ringers Injection intravenous solution 1,000 mL: 30 mL/Hr, IntraVENous Nitrostat: 0.4 mg, SubLINgual, Q5Min, PRN: Pain Documented Medications Documented Requip 1 mg oral tablet: Tab, Oral, At Bedtime, 0 Refill(s) Tylenol 325 mg oral tablet: 2 Tab, Oral, Q4H, PRN: Fever, 0 Refill(s) amLODIPine: 10 mg, Oral, Daily, 0 Refill(s) aspirin 81 mg oral delayed release tablet: 1 Tab, Oral, Daily, 0 Refill(s) carvedilol: 25 mg, Oral, BID, 0 Refill(s) isosorbide mononitrate: 20 mg, Oral, BID, 0 Refill(s) nicotine 21 mg/24 hr transdermal film, extended release: 1 Patch, TransDermal, Daily, 0 Refill(s) pantoprazole: 40 mg, Oral, Daily, 0 Refill(s), Home Medications (8) Active amLODIPine 10 mg, Oral, Daily aspirin 81 mg oral delayed release tablet 81 mg = 1 Tab, Oral, Daily carvedilol 25 mg, Oral, BID isosorbide mononitrate 20 mg, Oral, BID nicotine 21 mg/24 hr transdermal film, extended release 1 Patch, TransDermal, Daily pantoprazole 40 mg, Oral, Daily Requip 1 mg oral tablet , Oral, At Bedtime Tylenol 325 mg oral tablet 650 mg = 2 Tab, PRN, Oral, Q4H , Medications (4) Active Scheduled: (2) ceFAZolin/D5w 2 Gram 50 mL, IV Piggyback, PREOP mupirocin 2% nasal oint 1 g 1 Application, Nostrils Both, BID Continuous: (1) lactated ringers 1,000 mL 1,000 mL, IntraVENous, 30 mL/Hr PRN: (1) nitroglycerin 0.4 mg tab # 25 btl 0.4 mg 1 Tab, SubLINgual, Q5Min Problem list: All Problems Sleep apnea-before weight loss surgery / SNOMED CT 428850566 / Confirmed RF - Renal failure, Stage 4 / SNOMED CT 4324344149 / Confirmed Restless legs syndrome / SNOMED CT 45825836 / Confirmed Pulmonary edema / SNOMED CT 59405236 / Confirmed Prolonged QT interval / SNOMED CT 209046320 / Confirmed Mitral regurgitation / SNOMED CT 88535209 / Confirmed HTN - Hypertension / SNOMED CT 2934607219 / Confirmed History of obstructive sleep apnea / IMO 60286593 / Confirmed H/O: TIA / SNOMED CT 035736873 / Confirmed GERD - Gastro-esophageal reflux disease / SNOMED CT 7648638547 / Confirmed CHF, acute on chronic / SNOMED CT 94723255 / Confirmed COPD (chronic obstructive pulmonary disease) / SNOMED CT 61740867 / Confirmed NSTEMI, initial episode of care / SNOMED CT 4790943653 / Confirmed, Active Problems (13) CHF, acute on chronic COPD (chronic obstructive pulmonary disease) GERD - Gastro-esophageal reflux disease H/O: TIA History of obstructive sleep apnea HTN - Hypertension Mitral regurgitation NSTEMI, initial episode of care Prolonged QT interval Pulmonary edema Restless legs syndrome RF - Renal failure, Stage 4 Sleep apnea-before weight loss surgery Histories Past Medical History: Active HTN - Hypertension ([id number]) Family History: No family history items have [...] Tobacco Last Used . Physical Examination VS/Measurements Vital Signs/Vital Measures 08/29/2019 6:00 EST Systolic Blood Pressure 127 mmHg Diastolic Blood Pressure 72 mmHg Respiratory Rate 16 Breaths/Min 08/28/2019 14:59 EST Blood Pressure Location Arm, right upper Blood Pressure Source Non-Invasive BP Device Systolic Blood Pressure 170 mmHg HI Diastolic Blood Pressure 103 mmHg HI Temperature Source Temporal artery scanning Temperature Mode Fahrenheit Temperature, Fahrenheit 98.7 Deg F Clinical Temperature, C 37.1 Deg C Peripheral Pulse Rate 76 bpm Respiratory Rate 18 Breaths/Min Oxygen Saturation 99 % Oxygen Therapy Mode Room air Vital Measurements Comment Left Arm BP = 148/97 , Vitals Signs (last 24 hrs) Last Charted Minimum Maximum Temp 98.7 (AUG 28 14:59) 98.7 (AUG 28 14:59) 98.7 (AUG 28 14:59) Periph HR 76 (AUG 28 14:59) 76 (AUG 28 14:59) 76 (AUG 28 14:59) Resp Rate 16 (AUG 29 06:00) 16 (AUG 29 06:00) 18 (AUG 28 14:59) SBP 127 (AUG 29 06:00) 127 (AUG 29 06:00) H 170 (AUG 28 14:59) DBP 72 (AUG 29 06:00) 72 (AUG 29 06:00) H 103 (AUG 28 14:59) SpO2 99 (AUG 28 14:59) 99 (AUG 28 14:59) 99 (AUG 28 14:59) , Measurements from flowsheet : Measurements 08/28/2019 14:59 EST Height Source Measured Height Entry Format Joaquin Height/Length, KINYARWANDA (ft) 0 ft Height/Length KINYARWANDA 65 Inch CLINICALHEIGHT 165.1 cm [place]aks Body Weight 57 kg Weight Source Standing scale Weight Entry Format Joaquin Weight Singaporean lb 130.7 lb CLINICALWEIGHT 59.41 kg Body Surface Area (BSA) 1.65 m2 Body Mass Index 21.8 kg/m2 General: Alert and oriented, No acute distress. Eye: Pupils are equal, round and reactive to light, Extraocular movements are intact. HENT: Normocephalic, Normal hearing. Neck: Supple, Non-tender. Respiratory: Lungs are clear to auscultation, Respirations are non-labored. Cardiovascular: Normal rate, Regular rhythm, No gallop, No edema, murmur 1/6. Gastrointestinal: Soft, Non-tender, R upper abdomen lap band port . Genitourinary: No costovertebral angle tenderness. Lymphatics: No lymphadenopathy neck, axilla, groin. Musculoskeletal: Normal range of motion, Normal strength. Integumentary: Warm, Dry, [place]. Neurologic: Alert, Oriented. Psychiatric: Cooperative, Appropriate mood & affect. Review / Management Results review: Labs (Last four charted values) WBC 10.3 (AUG 28) HB 11.9 (AUG 28) HCT 36.4 (AUG 28) Plt 169 (AUG 28) Na 138 (AUG 28) K 4.1 (AUG 28) Cl 106 (AUG 28) CO2 30 (AUG 28) BUN H 27 (AUG 28) Cr H 2.60 (AUG 28) Glu R 104 (AUG 28) Ca 9.0 (AUG 28) PT 10.8 (AUG 28) INR 1.0 (AUG 28) PTT H 34.8 (AUG 28) AST 10 (AUG 28) ALT 14 (AUG 28) ALK P 78 (AUG 28) T Bili 0.7 (AUG 28) PTN 7.3 (AUG 28) ALB 3.5 (AUG 28) , Lab results 08/29/2019 6:44 EST eGFR 23 mL/min/1.73m2 LOW eGFR NonAfrican 19 mL/min/1.73m2 LOW Creatinine POC 2.7 mg/dL HI 08/28/2019 14:40 EST Sodium Level 138 mmol/L Potassium Level 4.1 mmol/L Chloride Level 106 mmol/L Carbon Dioxide Level 30 mmol/L Anion Gap 6 LOW Glucose Level 104 mg/dL Blood Urea Nitrogen 27 mg/dL HI CREATININE 2.60 mg/dL HI eGFR 24 mL/min/1.73m2 LOW eGFR NonAfrican 20 mL/min/1.73m2 LOW Bun/Creatinine 10.0 Calcium Level 9.0 mg/dL Protein Total 7.3 Gram/dL Albumin Level 3.5 Gram/dL Globulin 3.8 Gram/dL A/G Ratio 0.9 LOW Bilirubin Total 0.7 mg/dL Alk Phos 78 Units/Liter AST 10 Units/Liter ALT 14 Units/Liter Hgb A1C 5.3 % NA eAVG Glucose 105 mg/dL NA WBC 10.3 K/uL RBC 3.99 Million/uL Hgb 11.9 g/dL Hct 36.4 % MCV 91.2 fL MCH 29.8 pg MCHC 32.7 Gram/dL Platelet Count 169 K/uL MPV 13.3 fL HI RDW 14.2 % Neut % 72.5 % HI Neut # 7.46 K/uL HI Lymph % 19.0 % LOW Lymph # 1.95 K/uL [place] % 6.1 % [place] # 0.63 K/uL Eos % 2.1 % Eos # 0.22 Baso % 0.3 % Baso # 0.03 Slide Review No PT 10.8 Second(s) INR 1.0 PTT 34.8 Second(s) HI Urine Type U CleanCatch Urine Color Yellow Urine Appearance Clear Urine Specific [place] 1.019 Urine pH Dipstick 5.5 LOW Urine Leukocyte Esterase Negative Urine Nitrite Negative Urine Protein Dipstick 100 Urine Glucose Dipstick Negative Urine Ketones Dipstick Negative Urine Urobilinogen Dipstick 0.2 EU/dL Urine Bilirubin Dipstick Negative Urine Blood Dipstick Trace Cholesterol Tot 232 mg/dL HI Triglyceride 148 mg/dL Cholesterol HDL 55.0 mg/dL NA Cholesterol LDL Calculation 147.4 mg/dL HI Cholesterol/HDL Ratio 4.2 HI LDL/HDL Ratio 2.7 Cholesterol VLDL Calculation 29.6 mg/dL ABO/Rh A POS Antibody Screen Negative ABSC . Impression and Plan Condition: Stable. documented in this encounter Plan of Treatment Upcoming Encounters Date Type Department Care Team (Late st Contact Info) Description 04/12/2025 7:30 AM EDT Hospital Encounter [facility] Operating Room 1 [place] [address] Bill Graham MD [address] [place] [address] [address] 04/12/2025 7:30 AM EDT Anesthesia Event [facility] Operating Room 1 [place] [phone] Lucio Szymanski MD [address] [place] [address] 04/12/2025 7:30 AM EDT - 04/12/2025 8:55 AM EDT Surgery [facility] Operating Room 1 [place] [phone] Bill Graham MD [address] [facility] [address] [place], [place] [id number] (LAPAROSCOPIC PERITONEAL DIALYSIS CATHETER INSERTION) Scheduled Procedures Name Priority Associated Diagnoses Date/Ti me LAPAROSCOPY, WITH PERITONEAL DIALYSIS CATHETER INSERTION Chronic kidney disease, stage V (HCC) 04/12/2025 7:30 AM EDT documented as of this encounter Visit Diagnoses Not on filedocumented in this encounter Care Teams Logistics Vice President Relationship Specialty Start Date End Date Félix Monroe, RIPPLER [address] [facility] [address] [place] [address] PCP - General Nurse Practitioner 08/25/22 documented as of this encounter
--- OUTSIDE RECORDS SUMMARY | 2025-04-11 11:07 | XMS_ITS | Encounter Summary ---
Author Organization [employer] ([place], [place], [place], [place]) Address [address] [place] [address] Care Team Providers Care Vacuum Worker Name Role Phone Monroe Félixterence Singh APRN Primary Care Provider [phone] Encounter Details Date Type Department Care Team (Late st Contact Info) Description 07/27/2019 Transcribed Document [facility] Family Medicine [address] [place] [address] ProviderMaria Esther MD [address] [place], [place] [address] Social History Tobacco Use Types Packs/Day Years Used Date Smoking Tobacco: Never Assessed Comments Unknown Sex and Gender Information Value Date Recorded Sex Assigned at Not on file Legal Sex Female 6:53 PM CDT Gender Identity Not on file Sexual Orientation Not on file documented as of this encounter Miscellaneous Notes * Cerner Conversion Note - Maria Esther Reyes MD - 07/27/2019 3:18 PM ROOM ATTENDANT DATE OF SERVICE: 07/27/2019 INDICATION: Mitral regurgitation. ADDITIONAL REFERRING PHYSICIAN: Kraig Valle MD PROCEDURE: Standard left heart catheterization technique. A 5/6-Macedonian sheath placed in the right radial artery. A 5 mg verapamil, 3000 units of heparin were administered via the radial artery sheath. Bari catheter was used for selective angiography in left and right coronary arteries obtaining pressures in the left ventricle. Left ventriculogram was not performed. Following the diagnostic catheterization, the radial artery sheath was removed and the access site successfully compressed using a TR band. No complications. HEMODYNAMICS: Left ventricle 140/15 mmHg, aorta 140/60 mmHg. DIAGNOSES: 1. Mild coronary artery atherosclerosis. 2. Normal left ventricular filling pressure without gradient across the aortic valve. CORONARY ANATOMY: 1. Left main trunk: Angiographically normal. 2. LAD: Mildly calcified. Large caliber vessel, which gives rise to moderate caliber first diagonal branch, additional tiny diagonal branches before extending beyond the apex. There is calcification present in the proximal mid LAD. Mild atherosclerosis is present in the LAD and diagonal branches. 3. Circumflex artery: Large caliber vessel, which gives rise to a tiny high lateral branch, small caliber lateral branch, large caliber posterolateral branch. Mild atherosclerosis present in circumflex artery. 4. Right coronary artery: Dominant vessel. Large caliber vessel, which gives rise to a large caliber posterior descending artery, large caliber posterolateral branch. Mild atherosclerosis present in right coronary artery. Right coronary artery is calcified, has mild calcification proximally. 5. Left ventricle: Normal left ventricular filling pressure without gradient across the aortic valve. IMPRESSION: Angiographically, the patient has mild coronary artery atherosclerosis. There is normal left ventricular filling pressure without gradient across the aortic valve. There is no indication for revascularization during mitral valve surgery. /[id number] Cahva Lockett MD SSL/AQ / SSL / MODL /[id number] CC: MD Kraig Menjivar MD Electronically signed by Nir [facility] Conversion Associate Professor Of Geography Cerner at 10/28/2022 7:03 PM CDT documented in this encounter Plan of Treatment Upcoming Encounters Date Type Department Care Team (Late st Contact Info) Description 04/12/2025 7:30 AM EDT Hospital Encounter [facility] Operating Room 1 [place] [address] Bill Graham MD [address] [place] [address] [place] [address] 04/12/2025 7:30 AM EDT Anesthesia Event [facility] Operating Room 1 [place] [address] Lucio Szymanski MD [address] [place] [address] 04/12/2025 7:30 AM EDT - 04/12/2025 8:55 AM EDT Surgery [facility] Operating Room 1 [place] [phone] [place] [address] [place] [address] [address] [place] [address] (LAPAROSCOPIC PERITONEAL DIALYSIS CATHETER INSERTION) Scheduled Procedures Name Priority Associated Diagnoses Date/Ti me LAPAROSCOPY, WITH PERITONEAL DIALYSIS CATHETER INSERTION Chronic kidney disease, stage V (HCC) 04/12/2025 7:30 AM EDT documented as of this encounter Visit Diagnoses Not on filedocumented in this encounter Care Teams Vacuum Worker Relationship Specialty Start Date End Date Félix Monroe, DELIVERY RN [address] [facility] [address] [place] [address] PCP - General Nurse Practitioner 08/25/22 documented as of this encounter
--- OUTSIDE RECORDS SUMMARY | 2025-04-11 11:07 | XMS_ITS | Encounter Summary ---
Author Organization [employer] ([place], [place], [place], [place]) Address [address] [place] [address] Care Team Providers Care Statistical Developer Name Role Phone Monroe Félix Francisco RODRIGUEZ Primary Care Provider [phone] Encounter Details Date Type Department Care Team (Late st Contact Info) Description 08/29/2019 Transcribed Document [facility] Family Medicine [address] [place] [address] ProviderMaria Esther MD [address] [place], [place] [address] Social History Tobacco Use Types Packs/Day Years Used Date Smoking Tobacco: Never Assessed Comments Unknown Sex and Gender Information Value Date Recorded Sex Assigned at Not on file Legal Sex Female 6:53 PM CDT Gender Identity Not on file Sexual Orientation Not on file documented as of this encounter Miscellaneous Notes * Cerner Conversion Note - Maria Esther ProviderMD - 08/29/2019 3:29 PM RETAIL ASSET PROTECTION SPECIALIST On Going Discharge Planning Entered On: 08/29/2019 15:29 EST Performed On: 08/29/2019 15:29 EST by ZAINA GUERRERO Rn-Claim Service RepresentativeTrimming Inspector Progress Note Discharge Arrangements : Patient Post-Acute [...] Pt/Fam/Support Person : Other: OP Cardiac Rehab Were Referrals Sent to Post Acute Providers : Yes Is the Patient Meeting Medical Necessity : Yes ZAINA GUERRERO Rn-Claim Service Representative - 08/29/2019 15:29 EST Narrative Progress Note Narrative Progress Note : OP Cardiac Rehab referral placed to [facility]; DCP - likely home with spouse pending therapy recommendation. ZAINA GUERRERO Rn-Claim Service Representative - 08/29/2019 15:29 EST Electronically signed by [facility] Conversion Director Of Agronomy Cerner at 10/28/2022 7:12 PM CDT documented in this encounter Plan of Treatment Upcoming Encounters Date Type Department Care Team (Late st Contact Info) Description 04/12/2025 7:30 AM EDT Hospital Encounter [facility] Operating Room [address] [place] [address] Bill Graham MD [address] [place] [address] 04/12/2025 7:30 AM EDT Anesthesia Event [facility] Operating Room [address] [place] [address] Lucio Szymanski MD [address] [place] [address] 04/12/2025 7:30 AM EDT - 04/12/2025 8:55 AM EDT Surgery [facility] Operating Room [address] [place] [address] Bill Graham MD [address] [place] [address] (LAPAROSCOPIC PERITONEAL DIALYSIS CATHETER INSERTION) Scheduled Procedures Name Priority Associated Diagnoses Date/Ti me LAPAROSCOPY, WITH PERITONEAL DIALYSIS CATHETER INSERTION Chronic kidney disease, stage V (HCC) 04/12/2025 7:30 AM EDT documented as of this encounter Visit Diagnoses Not on filedocumented in this encounter Care Teams Statistical Developer Relationship Specialty Start Date End Date Félix Monroe, LICENSED ELECTRICIAN [address] [facility] [address] [place] [address] PCP - General Nurse Practitioner 08/25/22 documented as of this encounter
--- OUTSIDE RECORDS SUMMARY | 2025-04-11 11:07 | XMS_ITS | Encounter Summary ---
Author Organization [employer] ([place], [place], [place], [place]) Address [address] [place] [address] Care Team Providers Care Slot Host Name Role Phone MonroeFélix APRN Primary Care Provider [phone] Encounter Details Date Type Department Care Team (Late st Contact Info) Description 08/29/2019 Transcribed Document [facility] Family Medicine [facility] [place] [address] Maria Esther Reyes MD [address] [place] [address] Social History Tobacco Use Types Packs/Day Years Used Date Smoking Tobacco: Never Assessed Comments Unknown Sex and Gender Information Value Date Recorded Sex Assigned at Not on file Legal Sex Female 6:53 PM CDT Gender Identity Not on file Sexual Orientation Not on file documented as of this encounter Miscellaneous Notes * Cerner Conversion Note - Maria Esther Reyes MD - 08/29/2019 10:29 AM PHOTOGRAMMETRIC TECHNICIAN DATE OF PROCEDURE: 08/29/2019 SURGEON: Александр Valdez MD PREOPERATIVE DIAGNOSES: 1. Severe mitral insufficiency. 2. Congestive heart failure, class III, systolic valvular. 3. Chronic kidney disease, stage 4. 4. Severe gastroesophageal reflux. 5. History of laparoscopic cardiac banding. 6. History of pulmonary edema. 7. Obstructive sleep apnea. 8. Systemic hypertension. 9. Chronic obstructive pulmonary disease. 10. Chronic ongoing tobacco abuse. POSTOPERATIVE DIAGNOSES: 1. Severe mitral insufficiency. 2. Congestive heart failure, class III, systolic valvular. 3. Chronic kidney disease, stage 4. 4. Severe gastroesophageal reflux. 5. History of laparoscopic cardiac banding. 6. History of pulmonary edema. 7. Obstructive sleep apnea. 8. Systemic hypertension. 9. Chronic obstructive pulmonary disease. 10. Chronic ongoing tobacco abuse. PROCEDURES: 1. Mitral valve repair. a. 28 mm CG annuloplasty band. 2. Ligation and excision of left atrial appendage. 3. Intraoperative transesophageal echocardiography. ELECTRONIC WARFARE LINGUIST: JUSTIN Ott HISTORICAL NOTE: This 49-year-old female has been admitted for severe mitral regurgitation with congestive heart failure, requiring hospitalization. She gradually deteriorated and has had class III congestive heart failure in spite of medical management. She is put forth at this time for mitral valve repair. She has known normal coronary arteries with a right-dominant system. OPERATIVE FINDINGS: With the patient under general anesthesia, transesophageal echo confirmed the preoperative diagnoses. There was severe 4+ mitral regurgitation with a posteriorly-directed jet and what appeared to be anterior leaflet prolapse. The subchordal apparatus had no evidence of rupture. There was normal aortic valve function with no insufficiency and no tricuspid insufficiency. There was left ventricular hypertrophy with normal left ventricular function. With the patient under general anesthesia and sterile field in place, time-out was called and name was confirmed. A median sternotomy incision was performed and hemostasis was acquired as necessary with electrocautery. With heparinization, the ascending aorta was cannulated as was the right atrium with cannula into the superior and inferior vena cava. The superior and inferior vena cava were mobilized in anticipation for mitral valve exposure. The left ventricle was enlarged with hypertrophy, grade 4/6. The external appearance of the coronaries was unremarkable and there was a normal amount of epicardial fat. With the patient on extracorporeal bypass, arterial inflow temperatures were lowered. The heart was elevated and the left atrial appendage was then ligated on its epicardial surface with a heavy silk tie and excised. The patient underwent aortic cross-clamp and cardioplegia was given intermittently via the aortic root. CO2 was kept within the pericardial cavity. A cooling jacket was in place and topical ice was utilized. The left atrium was opened at the right superior pulmonary vein and exposure of the mitral valve was excellent. The left atrium was quite enlarged. The interrogation of the mitral valve suggested there were no ruptured chordae. There was in fact what appeared to be some restriction of the anterior and posterior leaflets. It appeared that the anteroposterior diameter of the valve was the principal lesion due to annular dilatation. The anulus was surrounded from [id number]-[id number] with 2-0 horizontal mattress sutures and a 28 mm CG annuloplasty band was chosen. The sutures were placed through the band and it was low in position and all sutures tied. On testing, there was no insufficiency of the valve and it appeared quite competent. The left atriotomy was closed with a running 4-0 Prolene and all air was evacuated from the left side of the heart with a needle vent in the ascending aorta, the cross-clamp was released. The patient was allowed a period of rest and was rewarmed and weaned from extracorporeal bypass. There was normal sinus mechanism with bipolar atrial pacing to increase rate. Post-bypass RIA confirmed a satisfactory result. There was no regurgitation of the mitral valve and no evidence of stenosis. Ventricular function was well preserved and aortic and tricuspid valve function were unremarkable. The heart was decannulated without episode and protamine was administered. Preparations for wound closure were made. The pericardial well received a 36-Indonesian chest tube and the substernal space received a ERWIN drain. The pericardium was closed with interrupted silk sutures. The sternum was approximated with interrupted heavy wire and the presternal fascia was closed with a running #1 PDS. The skin was closed with a subcuticular 3-0 Monocryl. Sponge and needle counts were correct. The technical aspects of the procedure were satisfactory and it is hoped the patient will have good operative result. /[id number] MD DERICK Menjivar/AQ / DERICK / MODL /[id number] CC: MD Preston Zafar MD Robert K Salley, MD Dr. Mahmoud documented in this encounter Plan of Treatment Upcoming Encounters Date Type Department Care Team (Late st Contact Info) Description 04/12/2025 7:30 AM EDT Hospital Encounter [facility] Operating Room 1 [place] [phone] Bill Graham MD [address] [place] [address] [address] [place] [address] 04/12/2025 7:30 AM EDT Anesthesia Event [facility] Operating Room 1 [place] [address] Lucio Szymanski MD [address] [place] [address] 04/12/2025 7:30 AM EDT - 04/12/2025 8:[address] [facility] Operating Room 1 [place] [address] Bill Graham MD [address] [facility] [address] [place] [address] (LAPAROSCOPIC PERITONEAL DIALYSIS CATHETER INSERTION) Scheduled Procedures Name Priority Associated Diagnoses Date/Ti me LAPAROSCOPY, WITH PERITONEAL DIALYSIS CATHETER INSERTION Chronic kidney disease, stage V (HCC) 04/12/2025 7:30 AM EDT documented as of this encounter Visit Diagnoses Not on filedocumented in this encounter Care Teams Slot Host Relationship Specialty Start Date End Date Félix Monroe, FLY WINDER [address] [facility] [address] [place] [address] PCP - General Nurse Practitioner 08/25/22 documented as of this encounter
--- OUTSIDE RECORDS SUMMARY | 2025-04-11 11:07 | XMS_ITS | Encounter Summary ---
Author Organization [employer] ([place], [place], [place], [place]) Address [address] [place] [address] Care Team Providers Care Gas Distribution Supervisor Name Role Phone Fer Félix Singh APRN Primary Care Provider [phone] Encounter Details Date Type Department Care Team (Late st Contact Info) Description 07/27/2019 Transcribed Document [facility] Family Medicine [address] [place] [address] ProviderMaria Esther MD [address] [place], [place] [address] Social History Tobacco Use Types Packs/Day Years Used Date Smoking Tobacco: Never Assessed Comments Unknown Sex and Gender Information Value Date Recorded Sex Assigned at Not on file Legal Sex Female 6:53 PM CDT Gender Identity Not on file Sexual Orientation Not on file documented as of this encounter Miscellaneous Notes * Cerner Conversion Note - Maria Esther ProviderMD - 07/27/2019 2:40 PM HOUSEMAID UM Authorization Entered On: 07/27/2019 14:40 EST Performed On: 07/27/2019 14:40 EST by ALETHEA MEYERS Rn-Utilization Review Primary Insurance Authorization Authorization and Policy Numbers : Insurance 1 Health Plan: MEDICAID PENDING Policy Number: [id number] Authorization Number: Insurance Primary Name : Osvaldo LONG:[id number] Authorization Status-Primary : Awaiting callback Reference Number-Primary : [id number] Authorization Number-Primary : [id number] Number of Days Authorized-Primary : 6 Day(s) Authorized Service Begin Date-Primary : 2019 EST Authorized Service End Date-Primary : 07/26/2019 EST Authorization Comments-Primary : Faxed clinicals via [employer] for 07/26-07/27. Historical Authorization Comments-Primary : Comment 1: approved for ip per radha. nrd 07/27 (Shantal Bernal, Rn-Utilization Review 07/26/2019 13:36) Comment 2: Per [facility] notes, patient has [place] Medicaid, per Page Policy number is [id number]. Submitted Inpt Auth on Availity with clinicals attahed. (ALETHEA MEYERS, Rn-Utilization Review 07/25/2019 11:43) Comment 3: call to [place] [employer] with name//ssn. patient is not active with [employer] (Shantal Bernal, Rn-Utilization Review 07/24/2019 11:42) Comment 4: per [facility] notes patient has [employer] no ins id noted (Shantal Bernal, Rn-Utilization Review 07/24/2019 11:14) Comment 5: SELF PAY (ALETHEA MEYERS, Rn-Utilization Review 07/22/2019 13:34) ALETHEA MEYERS, Rn-Utilization Review - 07/27/2019 14:40 EST documented in this encounter Plan of Treatment Upcoming Encounters Date Type Department Care Team (Late st Contact Info) Description 04/12/2025 7:30 AM EDT Hospital Encounter [facility] Operating Room 1 [place] [phone] Bill Grhaam MD [address] [place] [address] [address] 04/12/2025 7:30 AM EDT Anesthesia Event [facility] Operating Room 1 [place] [address] Lucio Szymanski MD [address] [place] [address] 04/12/2025 7:30 AM EDT - 04/12/2025 8:55 AM EDT Surgery [facility] Operating Room 1 [place] [address] Bill Graham MD [address] [facility] [address] [place] [address] (LAPAROSCOPIC PERITONEAL DIALYSIS CATHETER INSERTION) Scheduled Procedures Name Priority Associated Diagnoses Date/Ti me LAPAROSCOPY, WITH PERITONEAL DIALYSIS CATHETER INSERTION Chronic kidney disease, stage V (HCC) 04/12/2025 7:30 AM EDT documented as of this encounter Visit Diagnoses Not on filedocumented in this encounter Care Teams Gas Distribution Supervisor Relationship Specialty Start Date End Date Félix Monroe, BAGGAGEMASTER [address] [facility] [address] [place] [address] PCP - General Nurse Practitioner 08/25/22 documented as of this encounter
--- OUTSIDE RECORDS SUMMARY | 2025-04-11 11:07 | XMS_ITS | Encounter Summary ---
Author Organization [employer] ([place], [place], [place], [place]) Address [address] [place] [address] Care Team Providers Care Piano Case Maker Name Role Phone Ramos Monroeie Francisco RODRIGUEZ Primary Care Provider [phone] Encounter Details Date Type Department Care Team (Late st Contact Info) Description 07/27/2019 Transcribed Document [facility] [place] Medicine [address] [place] [address] ProviderMaria Esther MD [address] [place], [place] [address] Social History Tobacco Use Types Packs/Day Years Used Date Smoking Tobacco: Never Assessed Comments Unknown Sex and Gender Information Value Date Recorded Sex Assigned at Not on file Legal Sex Female 6:53 PM CDT Gender Identity Not on file Sexual Orientation Not on file documented as of this encounter Miscellaneous Notes * Cerner Conversion Note - Maria Esther Reyes MD - 07/27/2019 1:39 PM TAX SENIOR ASSOCIATE Patient: AWAIS SMITH Age: 49 years Sex: Female : 1970 Associated Diagnoses: None Author: DARRIUS TOUSSAINT, MICHAEL-CTS Admission Date: Admitting: Dr. Yg Cooney PCP: None ( machine adjuster leader case trim arranging) Consultants:Dr. Emanuel Brody, Cardiology Dr.Mostafa Howell, Nephrology Dr. Александр Valdez, CT Surgery Brief History:Awais Smith is a 49-year-old female with a known history of valvular heart disease, congestive heart failure, and tobacco abuse. She has had 2 hospital admissions for CHF over the past 15 years. She recently presented to [facility] with worsening shortness of breath. She stopped taking her cardiac medication 4 months ago he lost her insurance. At the ER at [facility] she had a transthoracic echocardiogram showed severe MR. She also had an elevated pro BNP of 31,000 as well as an elevated troponin at 0.85. The patient was given a loading dose of aspirin and Brilinta, given nitroglycerin and intravenous Lasix, and was started on a heparin drip and then was transferred to [facility] Dr. Александр Valdez has been asked to evaluate this lady for mitral valve surgery. PROCEDURE: DX(Present on admission): Severe Mitral Requrgitation Acute\chronic Valvular CHF Acute Pulmonary Edema EF 50-55% per intraop RIA Questionable Acute Kidney\Chronic CKD, Stage 4 ( unknown baseline) Hypokalemia Prolonged QT interval Thrombocytopenia Systemic HTN HLP Ongoing cigarette abuse with nicotine dependency\withdrawl Past Hx of Lap Band Procedure POSTOP DX: Subjective : worried about surgery 07/25/19: no complaints 07/26/19:denies chest pain\SOB; very happy she can have cardiac cath tomorrow 07/27/19: Health Status Allergies: Allergic Reactions (Selected) Severity Not Documented Codeine- No reactions were documented. Current medications.Problem list. Objective VS/Measurements Vital Measurements 07/27/2019 9:23 EST Systolic Blood Pressure 144 mmHg HI Diastolic Blood Pressure 99 mmHg HI Temperature, Fahrenheit 98.3 Deg F Heart Rate Monitored 84 bpm 07/26/2019 22:15 EST Oxygen Saturation 98 % Oxygen Therapy Mode Room air General: Alert and oriented. Respiratory: Lungs are clear to auscultation. Cardiovascular: Normal rate, Regular rhythm. Gastrointestinal: Soft, Non-tender. Tolerates PO Voiding Last BM>> 1\15 Ambulates Results Review General results Today's results 07/27/2019 2:19 EST Sodium Level 139 mmol/L Potassium Level 3.5 mmol/L Chloride Level 108 mmol/L Carbon Dioxide Level 27 mmol/L Anion Gap 8 LOW Glucose Level 115 mg/dL HI Blood Urea Nitrogen 19 mg/dL Creatinine Level 2.10 mg/dL HI eGFR 30 mL/min/1.73m2 LOW eGFR NonAfrican 25 mL/min/1.73m2 LOW Bun/Creatinine 9.0 Calcium Level 9.0 mg/dL WBC 8.3 K/uL RBC 3.75 Million/uL LOW Hgb 11.4 g/dL Hct 34.3 % MCV 91.5 fL MCH 30.4 pg MCHC 33.2 Gram/dL Platelet Count 145 K/uL LOW MPV 13.9 fL HI Interpretation: No Radiology Results Found Impression and Plan VTE STATUS>>SCDS Tobacco Cessation discussed with patient on 07/22/19 Mitral valve replacement hopefully Wednesday or Wednesday by Dr. Valdez. (Got Brilinta at [facility] >2 days ago) Creatinine 2.2 (2.0 [...] be discharged when renal status is stable; [facility] per Cardiology as outpatient, then F\U with Dr. Valdez to schedule Mitral Valve replacement +/- CABG From CT Surgery standpoint, Heparin drip may be stopped at anytime Card: 07/25/2019 Denies any symptoms. Awaiting improvement in renal function prior to [facility]. From our standpoint this could be done [...] we can hydrate and check AM labs. Telemetry>>sinus O2 sat>> 98% on RA Creatinine 2.1 ( 2.2 yesterday) Cardiac Cath today Pt may possibly go home after cardiac cath Dr. Valdez's office nurse, Florinda Dillard, will review renal labs ordered for , and then call pt to schedule Surgery Cardiac Cath>>Angiographically, the patient has mild coronary artery atherosclerosis. There is normal left ventricular filling pressure without gradient across the aortic valve. There is no indication for revascularization. Coronary artery bypass grafting will not be required during mitral valve surgery. Neph>> Chronic kidney disease stage IV: I have [...] with further acute kidney injury. She understands this.z \ documented in this encounter Plan of Treatment Upcoming Encounters Date Type Department Care Team (Late st Contact Info) Description 04/12/2025 7:30 AM EDT Hospital Encounter [facility] Operating Room 1 [place] [address] Bill Graham MD [address] [facility] [address] [place] [address] 04/12/2025 7:30 AM EDT Anesthesia Event [facility] Operating Room 1 [place] [address] Lucio Szymanski MD [address] [place] [address] 04/12/2025 7:30 AM EDT - 04/12/2025 8:55 AM EDT Surgery [facility] Operating Room 1 [place] [phone] Bill Graham MD [address] [facility] [address] [place] [address] (LAPAROSCOPIC PERITONEAL DIALYSIS CATHETER INSERTION) Scheduled Procedures Name Priority Associated Diagnoses Date/Ti me LAPAROSCOPY, WITH PERITONEAL DIALYSIS CATHETER INSERTION Chronic kidney disease, stage V (HCC) 04/12/2025 7:30 AM EDT documented as of this encounter Visit Diagnoses Not on filedocumented in this encounter Care Teams Piano Case Maker Relationship Specialty Start Date End Date Félix Monroe, RATTLING MACHINE TENDER [address] [facility] [address] [place] [address] PCP - General Nurse Practitioner 08/25/22 documented as of this encounter
--- OUTSIDE RECORDS SUMMARY | 2025-04-11 11:07 | XMS_ITS | Encounter Summary ---
Author Organization [employer] ([place], [place], [place], [place]) Address [address] [address] Care Team Providers Care Bottom Cementer Name Role Phone Félix Monroe APRN Primary Care Provider [phone] Encounter Details Date Type Department Care Team (Late st Contact Info) Description 08/29/2019 Transcribed Document [facility] Family Medicine [address] [place] [address] ProviderMaria Esther MD [address] [place], [place] [address] Social History Tobacco Use Types Packs/Day Years Used Date Smoking Tobacco: Never Assessed Comments Unknown Sex and Gender Information Value Date Recorded Sex Assigned at Not on file Legal Sex Female 6:53 PM CDT Gender Identity Not on file Sexual Orientation Not on file documented as of this encounter Miscellaneous Notes * Cerner Conversion Note - Maria Esther ProviderMD - 08/29/2019 7:30 AM WELLNESS AMBASSADOR [facility] Main OR Preop Summary Primary Physician: ALESHA EMERY MD-CAT Finalized Date/Time: 08/29/19 07:01:38 Pt. Name: CORRIE SMITH D.O.B./Sex: 1970 Female Med Rec #: [id number] Physician: ALESHA EMERY MD-CAT Financial #: [id number] Pt. Type: P Room/Bed: / Admit/Disch: 08/18/19 13:03:00 - Institution: [facility] PreOp Case Times Entry 1 In Preop 08/29/19 05:35:00 Ready for Holding n/a Room Patient Ready for 08/29/19 06:57:00 Surgery Patient Out of Preop 08/29/19 07:01:00 Patient Out of n/a Holding Room Last Modified By: ALETHEA MORLEY RN 08/29/19 07:01:35 [facility] PreOp Case Times Audit 08/29/19 07:01:35 Supply Assistant: KATIE Modifier: IGLESIAEMILY <+> 1 Patient Out of Preop Finalized By: ALETHEA MORLEY RN Document Signatures Signed By: ALETHEA MORLEY RN 08/29/19 07:01 Electronically signed by [facility] Conversion It Security Consulting Director Cerner at 10/28/2022 7:21 PM CDT documented in this encounter Plan of Treatment Upcoming Encounters Date Type Department Care Team (Late st Contact Info) Description 04/12/2025 7:30 AM EDT Hospital Encounter [facility] Operating Room 1 [place] [address] Bill Graham MD [address] [place] [address] 04/12/2025 7:30 AM EDT Anesthesia Event [facility] Operating Room [address] [place] [address] Lucio Szymanski MD [address] [place] [address] 04/12/2025 7:30 AM EDT - 04/12/2025 8:55 AM EDT Surgery [facility] Operating Room [address] [place] [address] Bill Graham MD [address] [place] [address] (LAPAROSCOPIC PERITONEAL DIALYSIS CATHETER INSERTION) Scheduled Procedures Name Priority Associated Diagnoses Date/Ti me LAPAROSCOPY, WITH PERITONEAL DIALYSIS CATHETER INSERTION Chronic kidney disease, stage V (HCC) 04/12/2025 7:30 AM EDT documented as of this encounter Visit Diagnoses Not on filedocumented in this encounter Care Teams Bottom Cementer Relationship Specialty Start Date End Date Félix Monroe, TEST CENTER ADMINISTRATOR [address] [facility] [address] [place] [address] PCP - General Nurse Practitioner 08/25/22 documented as of this encounter
--- OUTSIDE RECORDS SUMMARY | 2025-04-11 11:07 | XMS_ITS | Encounter Summary ---
Author Organization [employer] ([place], [place], [place], [place]) Address [address] [place] [address] Care Team Providers Care Nanoscience Technician Name Role Phone Fer Félix Francisco ASSISTANT FOOD SERVICE MANAGER Primary Care Provider [phone] Encounter Details Date Type Department Care Team (Late st Contact Info) Description 07/28/2019 Transcribed Document [facility] [place] Medicine [address] [place] [address] ProviderMaria Esther MD [address], [place] [address] Social History Tobacco Use Types Packs/Day Years Used Date Smoking Tobacco: Never Assessed Comments Unknown Sex and Gender Information Value Date Recorded Sex Assigned at Not on file Legal Sex Female 6:53 PM CDT Gender Identity Not on file Sexual Orientation Not on file documented as of this encounter Miscellaneous Notes * Cerner Conversion Note - Maria Esther ProviderMD - 07/28/2019 9:08 AM MICA LAMINATING MACHINE FEEDER UM Authorization Entered On: 07/28/2019 9:11 EST Performed On: 07/28/2019 9:08 EST by BRYCE GREEN RN Primary Insurance Authorization Authorization and Policy Numbers : Insurance 1 Health Plan: [place] [employer] Policy Number: [id number] Authorization Number: Insurance Primary Name : Osvaldo [id number] Authorization Status-Primary : Apprv contin stay Reference Number-Primary : [id number] Authorization Number-Primary : [id number] Number of Days Authorized-Primary : 7 Day(s) Authorized Service Begin Date-Primary : 2019 EST Authorized Service End Date-Primary : 07/27/2019 EST Authorization Comments-Primary : Per fax received 07/27/2019 @ 0636PM denial would have started on 07/28/2019, but patient discharged on 07/27/2019. All days that patient was in house 07/22/2019-07/27/2019 are approved. Verified per Availity that these days are approved as well. Discharge Summary/Date faxed via [employer] Historical Authorization Comments-Primary : Comment 1: [facility] with [employer] requested Cath results, not available at the moment. Will need to fax on 07/28/19. (ALETHEA MEYERS, Rn-Utilization Review 07/27/2019 15:55) Comment 2: Faxed clinicals via [employer] for 07/26-07/27. (ALETHEA MEYERS, Rn-Utilization Review 07/27/2019 14:40) Comment 3: approved for ip per destiny. nrd 07/27 (Shantal Bernal, Rn-Utilization Review 07/26/2019 13:36) Comment 4: Per Star notes, patient has [place] Medicaid, per Page Policy number is [id number]. Submitted Inpt Auth on Availity with clinicals attahed. (ALETHEA MEYERS, Rn-Utilization Review 07/25/2019 11:43) Comment 5: call to [employer] with name//ssn. patient is not active with [employer] (Shantal Bernal, Rn-Utilization Review 07/24/2019 11:42) Comment 6: per star notes patient has [place] [employer] no ins id noted (Shantal Bernal, Rn-Utilization Review 07/24/2019 11:14) Comment 7: SELF PAY (ALETHEA MEYERS, Rn-Utilization Review 07/22/2019 13:34) BRYCE GREEN RN - 07/28/2019 9:08 EST Electronically signed by Evaristo Loyola Conversion Diploma Pharmacy Technician Cerner at 10/28/2022 7:20 PM CDT documented in this encounter Plan of Treatment Upcoming Encounters Date Type Department Care Team (Late st Contact Info) Description 04/12/2025 7:30 AM EDT Hospital Encounter [facility] Operating Room 1 [place] [address] Bill Graham MD [address] [facility] [address] [place] [address] 04/12/2025 7:30 AM EDT Anesthesia Event [facility] Operating Room 1 [place] [address] Lucio Szymanski MD [address] [place] [address] 04/12/2025 7:30 AM EDT - 04/12/2025 8:55 AM EDT Surgery [facility] Operating Room 1 [place] [address] Bill Graham MD [address] [facility] [address] [place] [address] (LAPAROSCOPIC PERITONEAL DIALYSIS CATHETER INSERTION) Scheduled Procedures Name Priority Associated Diagnoses Date/Ti me LAPAROSCOPY, WITH PERITONEAL DIALYSIS CATHETER INSERTION Chronic kidney disease, stage V (HCC) 04/12/2025 7:30 AM EDT documented as of this encounter Visit Diagnoses Not on filedocumented in this encounter Care Teams Nanoscience Technician Relationship Specialty Start Date End Date Félix Monroe, ASSISTANT FOOD SERVICE MANAGER [address] [facility] [address] [place] [address] PCP - General Nurse Practitioner 08/25/22 documented as of this encounter
--- OUTSIDE RECORDS SUMMARY | 2025-04-11 11:07 | XMS_ITS | Encounter Summary ---
Author Organization [employer] ([place], [place], [place], [place]) Address [address] [address] Care Team Providers Care Resident Physician Name Role Phone Félix Monroe APRN Primary Care Provider [phone] Encounter Details Date Type Department Care Team (Late st Contact Info) Description 08/29/2019 Transcribed Document [facility] [place] Family Medicine [address] [place] [address] ProviderMaria Esther MD [address], [place] [address] Social History Tobacco Use Types Packs/Day Years Used Date Smoking Tobacco: Never Assessed Comments Unknown Sex and Gender Information Value Date Recorded Sex Assigned at Not on file Legal Sex Female 6:53 PM CDT Gender Identity Not on file Sexual Orientation Not on file documented as of this encounter Miscellaneous Notes * Cerner Conversion Note - Maria Esther ProviderMD - 08/29/2019 3:26 PM BABBITT SPINNER Initial Discharge Planning Entered On: 08/29/2019 15:28 EST Performed On: 08/29/2019 15:26 EST by ZAINA GUERRERO Rn-Vice President Of Engineering Initial Assessment I Previously Documented Living Environment : No qualifying data available. Living Situation : Home Patient Lives With : Spouse Is the Patient a Caregiver at Home? : No Emergency Contact #1 : Bola Stiles Emergency Contact #1 cell Emergency Contact #1 Relationship : spouse Emergency Contact #2 : Zoë Buchanan Emergency Contact #2 cell Emergency Contact #2 Relationship : mother Was Referral made to PCP? : Yes Does Patient have PCP Listed? : No Medical Durable Power of Microelectronics Engineer Name : None Legal Guardian : No Is Guardianship Needed : No ZAINA GUERRERO Rn-Vice President Of Engineering - 08/29/2019 15:26 EST Initial Assessment II Sensory and Motor Deficits : None Current Home Treatments and Equipment : None ZAINA GUERRERO Rn-Vice President Of Engineering - 08/29/2019 15:26 EST Discharge Needs I Anticipated Discharge Date : 09/02/2019 EST Anticipated Discharge To, CM : Home with family care, Home with home health Current Home Treatment/Equipment : Current Home Treatment/Equipment No qualifying data available. Post Acute/Home Treatments : None Documentation Status Complete : Yes ZAINA GUERRERO Rn-Vice President Of Engineering - 08/29/2019 15:26 EST Discharge Needs II Professional Skilled Services : Professional Skilled Services No qualifying data available. Services and Community Resources : Outpatient Cardiac Rehab Needs Assistance with Transportation : No Discharge Options Discussed with Patient : Discharge transportation, DME, Home Health, Outpatient services ZAINA GUERRERO Rn-Vice President Of Engineering - 08/29/2019 15:26 EST Narrative Note Narrative Note : Day 1 - Mitral Valve Repair Hx [...] be up to her to do it. ZAINA GUERRERO Rn-Vice President Of Engineering - 08/29/2019 15:26 EST documented in this encounter Plan of Treatment Upcoming Encounters Date Type Department Care Team (Late st Contact Info) Description 04/12/2025 7:30 AM EDT Hospital Encounter [facility] Operating Room 1 [place] [address] Bill Graham MD [address] [place] [address] [address] [place] [address] 04/12/2025 7:30 AM EDT Anesthesia Event [facility] Operating Room 1 [place] [id number] Lucio Szymanski MD [address] [place], [place] [id number] 04/12/2025 7:30 AM EDT - 04/12/2025 8:55 AM EDT Surgery [facility] Operating Room 1 [place] [address] [place] [address] [place] [address] [address] [place] [address] [id number] (LAPAROSCOPIC PERITONEAL DIALYSIS CATHETER INSERTION) Scheduled Procedures Name Priority Associated Diagnoses Date/Ti me LAPAROSCOPY, WITH PERITONEAL DIALYSIS CATHETER INSERTION Chronic kidney disease, stage V (HCC) 04/12/2025 7:30 AM EDT documented as of this encounter Visit Diagnoses Not on filedocumented in this encounter Care Teams Resident Physician Relationship Specialty Start Date End Date Félix Monroe, TUBE PULLER [address] [facility] [address] [place] [address] PCP - General Nurse Practitioner 08/25/22 documented as of this encounter
--- OUTSIDE RECORDS SUMMARY | 2025-04-11 11:07 | XMS_ITS | Encounter Summary ---
Author Organization [employer] ([place], [place], [place], [place]) Address [address] [place] [address] Care Team Providers Care Earrings Fabricator Name Role Phone Fer Félix Singh MICHAEL Primary Care Provider [phone] Encounter Details Date Type Department Care Team (Late st Contact Info) Description 08/29/2019 Transcribed Document [facility] [place] [address] [place] [address] ProviderMaria Esther MD [address], [place] [id number] Social History Tobacco Use Types Packs/Day Years Used Date Smoking Tobacco: Never Assessed Comments Unknown Sex and Gender Information Value Date Recorded Sex Assigned at Not on file Legal Sex Female 6:53 PM CDT Gender Identity Not on file Sexual Orientation Not on file documented as of this encounter Miscellaneous Notes * Cerner Conversion Note - Maria Esther ProviderMD - 08/29/2019 10:17 AM FORESTRY CONSULTANT Evaluation, Physical Therapy Entered On: 08/30/2019 12:37 EST Performed On: 08/30/2019 11:20 EST by QUINCY DUCKWORTH, PT General Information, PT Visit Type, PT : Initial evaluation Patient Orders : Order Date Order Ordering 08/29/2019 10:17 Consult to Physical Therapy Ordered By: ALESHA EMERY MD-CAT Active Diagnoses : 08/30/2019 12:00 Chronic kidney disease, stage 4 (severe) 08/30/2019 12:00 Chronic obstructive pulmonary disease, unspecified 08/30/2019 12:00 Chronic pulmonary edema 08/30/2019 12:00 Chronic systolic (congestive) heart failure 08/30/2019 12:00 Essential (primary) hypertension 08/30/2019 12:00 Gastro-esophageal reflux disease without esophagitis 08/30/2019 12:00 Nicotine dependence unspecified, with withdrawal 08/30/2019 12:00 Nonrheumatic mitral (valve) insufficiency 08/30/2019 12:00 Obesity, unspecified 08/30/2019 12:00 Restless legs syndrome 08/30/2019 12:00 Thrombocytopenia, unspecified 08/30/2019 12:00 Transient cerebral ischemic attack, unspecified Therapy Diagnosis, PT : impaired functional mobility s/p MVR surgery Onset of Problem, PT : 08/29/2019 EST Admission Date : 08/29/2019 07:08 Personal Devices : Personal Devices No Devices Recorded Assistive Devices : Assistive Devices No Devices Recorded General Information Comment, PT : Pt had MVR on 08/29 Hx: chronic renal failure, CHF, COPD, TIA QUINCY DUCKWORTH, PT - 08/30/2019 12:26 EST General Status Patient Received Status : Up in chair Treatment Start Time : 08/30/2019 11:00 EST Patient Left Status : Supine in bed, RN/PCT informed, All needs met and within reach RN/PCT Informed Comment : Zahra/Jason approved PT Treatment End Time : 08/30/2019 11:20 EST Treatment Time : 20 Minute(s) QUINCY DUCKWORTH, PT - 08/30/2019 12:26 EST History and Environment Living Situation, Therapy : Home Patient Lives With : Spouse Professional Skilled Services : None Persons Providing Information : Patient Home Equipment Therapy, PT : None Home Setup : One story Stairs : No Ramp : Yes QUINCY DUCKWORTH, PT - 08/30/2019 12:26 EST Prior Level of Function PT GRID Prior LOF Ambulation, Household : Independent Prior LOF Ambulation, Community : Independent Prior LOF Bed Mobility : Independent Prior LOF Toileting : Independent Prior LOF Transfer : Independent QUINCY DUCKWORTH, PT - 08/30/2019 12:26 EST Upper Extremity Right UE Active ROM : WFL Right UE Strength : WFL Left UE Active ROM : WFL Left UE Strength : WFL QUINCY DUCKWORTH, PT - 08/30/2019 12:26 EST Lower Extremity RLE Active ROM : WFL Right LE Strength : WFL LLE Active ROM : WFL Left LE Strength : WFL QUINCY DUCKWORTH, PT - 08/30/2019 12:26 EST Functional Mobility Mobility Grid Sit to Stand : Rehab Minimal assistance Chair to Bed : Rehab Minimal assistance Stand to Sit : Rehab Minimal assistance Sit to Supine : Rehab Minimal assistance QUINCY DUCKWORTH, PT - 08/30/2019 12:26 EST Functional MobilityComment : Pt with SWAN/art line-no amb per nsg Pt was min asst for sit-stand with gt belt and rwx with nsg asst for multiple lines/ext pacer/rodriguez and took 5-6 steps chair-bed and was min assty for stand-sit and return supine with pt positioned for comfort QUINCY DUCKWORTH, PT - 08/30/2019 12:26 EST Gait Training/Assessment, PT Gait Assistance Level : Unable to assess/activity not appropriate Walking Distance : see functional mobility section for details QUINCY DUCKWORTH, PT - 08/30/2019 12:26 EST Neurological/Sensory Overall Sensory Response : Intact QUINCY DUCKWORTH, PT - 08/30/2019 12:26 EST Cognition Assessment, PT Orientation : Oriented x 4 Safety/Judgment Comment : vc and min asst for safety with nsg present during transfer Follows Basic Command Assessment : yes Attention Assessment : Present QUINCY DUCKWORTH, PT - 08/30/2019 12:26 EST Edu Topics Physical Therapy Education Grid Bed Mobility Training : Verbalizes understanding, Needs reinforcement Role of Physical Therapy : Verbalizes understanding Safety : Verbalizes understanding, Needs reinforcement Therapeutic Exercises : Verbalizes understanding, Needs reinforcement Transfer Training : Verbalizes understanding, Needs reinforcement Use of Assistive Device : Verbalizes understanding, Needs reinforcement QUINCY DUCKWORTH, PT - 08/30/2019 12:26 EST Indication Assesessment, PT Physical Therapy Indicated : Yes PT Problem List : Impaired, activities daily living, Impaired, bed mobility, Impaired, endurance tolerance, Impaired, gait, Impaired, transfers, Pain limiting function Potential Barriers To Therapy : Acuity of Illness Rehabilitation Potential : Good QUINCY DUCKWORTH, PT - 08/30/2019 12:26 EST Plan of Care, PT PT Tx Plan/Goals Established w Patient : Yes PT Frequency Rehab : Daily PT Duration Rehab : Other: 14 days or goals met or discharged from hospital PT Treatments Planned : Balance training, Bed mobility training, Gait training, Safety education, Therapeutic exercises, Transfer training QUINCY DUCKWORTH, PT - 08/30/2019 12:26 EST Short Term Goals Mobility/Bed Mobility STG PT Grid Goal #1 Goal #2 Activity : Supine to sit Sit to stand Assist : Supervision or set-up Supervision or set-up Date to Meet : 09/07/2019 EST 09/06/2019 EST Goal Status : Initial goal Initial goal QUINCY DUCKWORTH, PT - 08/30/2019 12:26 EST QUINCY DUCKWORTH, PT - 08/30/2019 12:26 EST Ambulation STG Grid Goal #1 Device : Walker, front wheel Distance : 200' Assist : Supervision or set-up Date to Meet : 09/09/2019 EST Goal Status : Intial Goal QUINCY DUCKWORTH, PT - 08/30/2019 12:26 EST Jail Goals Mobility/Bed Mobility LTG PT Grid Goal #1 Goal #2 Activity : Supine to sit Sit to stand Assist : Independent, modified Independent, modified Date to Meet : 09/14/2019 EST 09/13/2019 EST Goal Status : Intial Goal Intial Goal QUINCY DUCKWORTH, PT - 08/30/2019 12:26 EST QUINCY DUCKWORTH, PT - 08/30/2019 12:26 EST Ambulation LTG Grid Goal #1 Device : Walker, front wheel Distance : 375' Assist : Independent, modified Date to Meet : 09/14/2019 EST Goal Status : Intial Goal QUINCY DUCKWORTH, PT - 08/30/2019 12:26 EST Treatment Note Subjective Comment : agreed to PT with request for back to bed with ns approval Additional Objective Information : Pt performed active knee flex/ext and AP B LE seated in chair prior transfer back to bed wtih min ast of 2 (nsg asst wtih multiple lines) Assessment : Pt will benefit from PT during LOS to asst with return to independent PLOF s/p MVR surgery Plan for Treatment : cont PT QUINCY DUCKWORTH, PT - 08/30/2019 12:26 EST Pain Assessment Pain Scaled Used : 0-10 Pain scale Pain Score Pre-Intervention : 8 Pain Score During-Intervention : 8 Pain Score Post-Intervention. : 7 Pain Comment : Pt had pain med prior PT and positioned for comfort once supine QUINCY DUCKWORTH, PT - 08/30/2019 12:26 EST Image 1 - Images currently included in the form version of this document have not been included in the text rendition version of the form. [facility] PT Charges PT Therap. Exercise 15 min : 1 PT Eval Low Complexity : 1 QUINCY DUCKWORTH, PT - 08/30/2019 12:26 EST Electronically signed by [facility], [facility] Conversion Woven Paper Hat Mender Cerner at 10/28/2022 7:08 PM CDT documented in this encounter Plan of Treatment Upcoming Encounters Date Type Department Care Team (Late st Contact Info) Description 04/12/2025 7:30 AM EDT Hospital Encounter [facility] Operating Room [address] [place] [address] Bill Graham MD [address] [place] [address] [address] 04/12/2025 7:30 AM EDT Anesthesia Event [facility] Operating Room [address] [place] [address] Lucio Szymanski MD [address] [place] [address] 04/12/2025 7:30 AM EDT - 04/12/2025 8:55 AM EDT Surgery [facility] Operating Room [address] [place] [address] Bill Graham MD [address] [place] [address] [address] (LAPAROSCOPIC PERITONEAL DIALYSIS CATHETER INSERTION) Scheduled Procedures Name Priority Associated Diagnoses Date/Ti me LAPAROSCOPY, WITH PERITONEAL DIALYSIS CATHETER INSERTION Chronic kidney disease, stage V (HCC) 04/12/2025 7:30 AM EDT documented as of this encounter Visit Diagnoses Not on filedocumented in this encounter Care Teams Earrings Fabricator Relationship Specialty Start Date End Date Félix Monroe, SCOURING MACHINE OPERATOR [address] [facility] [address] [place] [address] PCP - General Nurse Practitioner 08/25/22 documented as of this encounter
--- OUTSIDE RECORDS SUMMARY | 2025-04-11 11:08 | XMS_ITS | Encounter Summary ---
Author Organization [employer] ([place], [place], [place], [place]) Address [address] [place] [address] Care Team Providers Care Database Reporting Consultant Name Role Phone Fer Félix Francisco RODRIGUEZ Primary Care Provider [phone] Encounter Details Date Type Department Care Team (Late st Contact Info) Description 08/28/2019 Transcribed Document [facility] [place] Family Medicine [address] [place] [address] ProviderMaria Esther MD [address], [place] [id number] Social History Tobacco Use Types Packs/Day Years Used Date Smoking Tobacco: Never Assessed Comments Unknown Sex and Gender Information Value Date Recorded Sex Assigned at Not on file Legal Sex Female 6:53 PM CDT Gender Identity Not on file Sexual Orientation Not on file documented as of this encounter Miscellaneous Notes * Cerner Conversion Note - Historical ProviderMD - 08/28/2019 1:46 PM SAP BOBJ DEVELOPER UM Authorization Entered On: 08/28/2019 13:46 EST Performed On: 08/28/2019 13:46 EST by CHAO LANDIN Watch Caser Primary Insurance Authorization Authorization and Policy Numbers : Insurance 1 Health Plan: [place] Medicaid Policy Number: [id number] Authorization Number: Insurance Primary Name : Osvaldo [id number] [id number] Authorization Number-Primary : auth pending per [facility] notes Authorized Service Begin Date-Primary : 08/29/2019 EST Historical Authorization Comments-Primary : No Authorization Comments Found CHAO LANDIN, Watch Caser - 08/28/2019 13:46 EST documented in this encounter Plan of Treatment Upcoming Encounters Date Type Department Care Team (Late st Contact Info) Description 04/12/2025 7:30 AM EDT Hospital Encounter [facility] Operating Room 1 [place] [address] Bill Graham MD [address] [facility] [address] [place] [address] 04/12/2025 7:30 AM EDT Anesthesia Event [facility] Operating Room 1 [place] [address] Lucio Szymanski MD [address] [place] [address] 04/12/2025 7:30 AM EDT - 04/12/2025 8:[address] [facility] Operating Room [address] [place] [address] [place] [address] [place] [address] [address] [place] [address] (LAPAROSCOPIC PERITONEAL DIALYSIS CATHETER INSERTION) Scheduled Procedures Name Priority Associated Diagnoses Date/Ti me LAPAROSCOPY, WITH PERITONEAL DIALYSIS CATHETER INSERTION Chronic kidney disease, stage V (HCC) 04/12/2025 7:30 AM EDT documented as of this encounter Visit Diagnoses Not on filedocumented in this encounter Care Teams Database Reporting Consultant Relationship Specialty Start Date End Date Félix Monroe, REGIONAL CLINICAL RESEARCH ASSOCIATE [address] [facility] [address] [place] [address] PCP - General Nurse Practitioner 08/25/22 documented as of this encounter
--- OUTSIDE RECORDS SUMMARY | 2025-04-11 11:08 | XMS_ITS | Encounter Summary ---
Author Organization [employer] ([place], [place], [place], [place]) Address [address] [place] [address] Care Team Providers Care Sales Department Clerk Name Role Phone Monroe Félix Francisco RODRIGUEZ Primary Care Provider Encounter Details Date Type Department Care Team (Late st Contact Info) Description 08/28/2019 Transcribed Document [facility] [place] Family Medicine [address] [place] [address] ProviderMaria Esther MD [address] [place] [address] Social History Tobacco Use Types Packs/Day Years Used Date Smoking Tobacco: Never Assessed Comments Unknown Sex and Gender Information Value Date Recorded Sex Assigned at Not on file Legal Sex Female 6:53 PM CDT Gender Identity Not on file Sexual Orientation Not on file documented as of this encounter Miscellaneous Notes * Cerner Conversion Note - Maria Esther ProviderMD - 08/28/2019 2:59 PM COMMERCIAL REAL ESTATE MANAGER PAT Adult Entered On: 08/28/2019 15:02 EST Performed On: 08/28/2019 14:59 EST by CARLOS ALBERTO WHITAKER, RN Vital Measurements Temperature Source : Temporal artery scanning Temperature Mode : Fahrenheit Temperature, Fahrenheit : 98.7 Deg F Clinical Temperature, C : 37.1 Deg C Peripheral Pulse Rate : 76 bpm Respiratory Rate : 18 Breaths/Min Blood Pressure Location : Arm, right upper Blood Pressure Source : Non-Invasive BP Device Systolic Blood Pressure : 170 mmHg (HI) Diastolic Blood Pressure : 103 mmHg (HI) Vital Measurements Comment : Left Arm BP = 148/97 Oxygen Saturation : 99 % Oxygen Therapy Mode : Room air CARLOS ALBERTO WHITAKER RN - 08/28/2019 16:30 EST Pain Assessment Pain Scale Goal : 4 CARLOS ALBERTO WHITAKER RN - 08/28/2019 14:59 EST Height and Weight, Clinical Dosing Height Source : Measured Height Entry Format : [place] Height, Feet : 0 ft(Converted to: 0 cm, 0 Inch) Height, Inches : 65 Inch(Converted to: 5 ft 5 Inch, 165.10 cm) Clinical Height : 165.1 cm Weight Source : Standing scale Weight Entry Format : [place] Clinical Dosing Weight : 59.41 kg Weight, Pounds : 130.7 lb Body Surface Area (BSA) : 1.65 m2 Body Mass Index : 21.8 kg/m2 [place] Body Weight : 57 kg CARLOS ALBERTO WHITAKER RN - 08/28/2019 16:30 EST Health Histories Smoking Status : 10 or more cigarettes (1/2 pack or more)/day in last 30 days Smokeless Tobacco Status : Smokeless tobacco user within last 30 days Desires Tobacco Cessation Medication : Yes CARLOS ALBERTO WHITAKER RN - 08/28/2019 14:59 EST Social History (As Of: 08/28/2019 15:02:20 EST) Tobacco: 10 or more cigarettes (1/2 [...] 14:22:57 EST by CARLOS ALBERTO WHITAKER RN) Infectious Disease History Physical contact outside US in the last 30 days : No Infectious Disease History : None Tuberculosis Symptoms : Fatigue CARLOS ALBERTO WHITAKER RN - 08/28/2019 15:08 EST Anesthesia/Transfusion History Family History of Anesthesia Reaction : No prior transfusion(s) Blood Transfusion Acceptable to Patient : Yes Transfusion History : Prior anesthesia without reaction Family History of Anesthesia Reaction : None CARLOS ALBERTO WHITAKER RN - 08/28/2019 15:08 EST Functional Assessment Functional ADL Evaluation Index EBN Bathing : Independent (2) Dressing : Independent (2) Toileting : Independent (2) Transferring Bed or Chair : Independent (2) Continence : Independent (2) Feeding : Independent (2) CARLOS ALBERTO WHITAKER RN - 08/28/2019 15:08 EST ADL Index Score : 12 CARLOS ALBERTO WHITAKER RN - 08/28/2019 15:08 EST Advance Directive Patient has Advance Directive *Q : Yes, Advance Directive not with the patient Advance Directive Type : Living will Advance Directive Comment : will bring day of surgery CARLOS ALBERTO WHITAKER RN - 08/28/2019 15:08 EST Spiritual/Cultural Needs Any Spiritual/Cultural Needs or Requests : No CARLOS ALBERTO WHITAKER RN - 08/28/2019 15:08 EST [place] Suicide Severity Rating Scale (C-SSRS) CSSRS Past Month Wish to be : No CSSRS Past Month Suicidal Thoughts : No CSSRS Lifetime Suicide Behavior : No Suicide Severity Rating Score : 0 Suicide Severity Rating : No Additional Care Required at this time CARLOS ALBERTO WHITAKER RN - 08/28/2019 15:08 EST Psychosocial History Currently in Unsafe Situation : No CARLOS ALBERTO WHITAKER RN - 08/28/2019 15:08 EST Teaching/Learning Assessment Individuals Taught : Patient Readiness to Learn : Cooperative Readiness to Learn : Explanation, Printed materials CARLOS ALBERTO WHITAKER RN - 08/28/2019 15:08 EST Education Topics, Periop Preadmission Perioperative Education Grid Arrival Time/Place : Verbalizes understanding CHG Preoperative Bathing/Cloths : Verbalizes understanding Falls : Verbalizes understanding Incentive Spirometry : Verbalizes understanding Infection Control : Verbalizes understanding IV's : Verbalizes understanding NPO Status/Directions : Verbalizes understanding Pain Management : Verbalizes understanding Preprocedure Preparations : Verbalizes understanding Preprocedure Tests/Labs : Verbalizes understanding Remove Body Piercings : Verbalizes understanding Responsible Adult : Verbalizes understanding Take/Hold Medications Pre-Procedure : Verbalizes understanding Other : Verbalizes understanding (Comment: use of bactroban nasal ointment [CARLOS ALBERTO WHITAKER RN - 08/28/2019 15:08 EST] ) Responsible Adult Contact Information : Bola Stiles, spouse, cell CARLOS ALBERTO WHITAKER RN - 08/28/2019 15:08 EST General Info Arrived From : Home Mode of Arrival on Unit : Ambulatory Legal Guardian : Spouse Support Person/Patient Heel Shaver : Yes Support Person/Pt Rep Name : Bola Stiles, spouse Support Person/Pt Rep Contact Information : [phone] cell Want Family/Rep/Phys Notified of Admit : No Emergency Contact #1 : Bola Stiles Emergency Contact #1 cell Emergency Contact #1 Relationship : spouse Emergency Contact #2 : Zoë Nietolins Emergency Contact #2 cell Emergency Contact #2 Relationship : mother Information Obtained From : Patient Primary Language : [place] Preferred Communication Mode : Verbal Communication Barrier : None Objects to Sharing Info w Family : No CARLOS ALBERTO WHITAKER RN - 08/28/2019 15:08 EST Krish Scale Krish Sensory Perception : Slightly limited Krish Moisture : Occasionally moist Krish Activity : Walks frequently Krish Mobility : No limitation Krish Nutrition : Adequate Krish Friction and Shear : No apparent problem Krish Score : 20 CARLOS ALBERTO WHITAKER RN - 08/28/2019 15:08 EST Sleep Apnea Risk Assmt BiPAP/CPAP Ordered for Home Use : No Hx of Obstructive Sleep Apnea Diagnosis : Yes Age over 50 Years Old : No Gender Male : No CARLOS ALBERTO WHITAKER RN - 08/28/2019 15:08 EST documented in this encounter Plan of Treatment Upcoming Encounters Date Type Department Care Team (Late st Contact Info) Description 04/12/2025 7:30 AM EDT Hospital Encounter [facility] Operating Room 1 [place] [address] Bill Graham MD [address] [place] [address] [address] [place], [place] [address] 04/12/2025 7:30 AM EDT Anesthesia Event [facility] Operating Room 1 [place] [address] Lucio Szymanski MD [address] [place] [address] 04/12/2025 7:30 AM EDT - 04/12/2025 8:55 AM EDT Surgery [facility] Operating Room 1 [place] [address] Blil Graham MD [address] [place] [address] [address] [place] [address] (LAPAROSCOPIC PERITONEAL DIALYSIS CATHETER INSERTION) Scheduled Procedures Name Priority Associated Diagnoses Date/Ti me LAPAROSCOPY, WITH PERITONEAL DIALYSIS CATHETER INSERTION Chronic kidney disease, stage V (HCC) 04/12/2025 7:30 AM EDT documented as of this encounter Visit Diagnoses Not on filedocumented in this encounter Care Teams Sales Department Clerk Relationship Specialty Start Date End Date Félix Monroe, SOLDERING MACHINE SETTER [address] [facility] [address] [place] [address] PCP - General Nurse Practitioner 08/25/22 documented as of this encounter
--- OUTSIDE RECORDS SUMMARY | 2025-04-11 11:08 | XMS_ITS | Encounter Summary ---
Author Organization [employer] ([place], [place], [place], [place]) Address [address] [address] Care Team Providers Care Working Manager Name Role Phone Félix Monroe APRN Primary Care Provider [phone] Encounter Details Date Type Department Care Team (Late st Contact Info) Description 08/01/2019 Transcribed Document [facility] [place] [address] [place] [address] ProviderMaria Esther MD [address] [place], [place] [address] Social History Tobacco Use Types Packs/Day Years Used Date Smoking Tobacco: Never Assessed Comments Unknown Sex and Gender Information Value Date Recorded Sex Assigned at Not on file Legal Sex Female 6:53 PM CDT Gender Identity Not on file Sexual Orientation Not on file documented as of this encounter Miscellaneous Notes * Cerner Conversion Note - Maria Esther Reyes MD - 08/01/2019 11:20 AM CLINICAL LAB SCIENTIST Patient: CORRIE SMITH Age: 49 Years Sex: Female : 1970 Admit Date 07/22/2019 13:33 Discharge Date 07/27/2019 17:43 DOS: 07/27/19 Primary Care Provider NICOLE KENNEDY PRIM DR Discharge Diagnosis No Diagnosis on Record Hospital Course 49-year-old female with a history of valvular heart disease, congestive heart failure, and tobacco abuse presented to [facility] with a 2-month history of worsening shortness [...] ER for evaluation. At the ER at [facility], she had a chest x-ray which showed [...] our facility for higher level of care. 1. Severe MR Planning valve surgery eventually. Will follow up with CVTS to schedule. 2. NSTEMI Stable HAd cath: Angiographically, the patient has mild coronary artery atherosclerosis. There is normal left ventricular filling pressure without gradient across the aortic valve. There is no indication for revascularization during mitral valve surgery. 3. Acute Diastolic Congestive Heart Failure POA [...] - normocytic, normochromic 7. Thrombocytopenia - Plt 149 8. Prolonged QTc - avoid QT-prolonging medications 9. Tobacco abuse, cigarettes - tobacco cessation counseling - placed on nicotine patch Stable for discharge home today with follow up plans complete. Vital Signs Oxygen Settings (Last) Oxygen Therapy Mode: Room air (07/27/19 15:30:00) Oxygen Flow Rate: 2 Liter/Min (07/21/19 06:15:00) Discharge Disposition Home Discharge Follow Up SHAWANDA LUIS MD-NEP - 00:00 AM ALESHA EMERY - Within 2 to 3 days Discharge Medications (8) Active amLODIPine 10 mg, Oral, [...] mg = 2 Tab, PRN, Oral, Q4H Code Status No Code Status Order on Record Consulting Physicians No Consulting Physician on Record. Current Diet Order No qualifying data available. Pending Labs No Labs on Record Time Spent on Discharge Time for preparation of discharge was greater than 30 minutes. I personally evaluated the patient on the day of discharge. documented in this encounter Plan of Treatment Upcoming Encounters Date Type Department Care Team (Late st Contact Info) Description 04/12/2025 7:30 AM EDT Hospital Encounter [facility] Operating Room 1 [place] [phone] Bill Graham MD [address] [place] [address] 04/12/2025 7:30 AM EDT Anesthesia Event [facility] Operating Room 1 [place] [address] Lucio Szymanski MD [address] [place] [address] 04/12/2025 7:30 AM EDT - 04/12/2025 8:[address] [facility] Operating Room 1 [place] [address] Bill Graham MD [address] [place] [address] [id number] (LAPAROSCOPIC PERITONEAL DIALYSIS CATHETER INSERTION) Scheduled Procedures Name Priority Associated Diagnoses Date/Ti me LAPAROSCOPY, WITH PERITONEAL DIALYSIS CATHETER INSERTION Chronic kidney disease, stage V (HCC) 04/12/2025 7:30 AM EDT documented as of this encounter Visit Diagnoses Not on filedocumented in this encounter Care Teams Working Manager Relationship Specialty Start Date End Date Félix Monroe, BAND TEACHER [address] [facility] [address] [place], [place] [id number] PCP - General Nurse Practitioner 08/25/22 documented as of this encounter
--- OUTSIDE RECORDS SUMMARY | 2025-04-11 11:09 | XMS_ITS | Encounter Summary ---
Author Organization [employer] ([place], [place], [place], [place]) Address [address] [address] Care Team Providers Care Flooring Grader Name Role Phone Félix Monroe APRN Primary Care Provider [phone] Encounter Details Date Type Department Care Team (Late st Contact Info) Description 10/08/2020 Transcribed Document [facility] [place] [address] [place] [address] ProviderMaria Esther MD [address] [place], [place] [address] Social History Tobacco Use Types Packs/Day Years Used Date Smoking Tobacco: Never Assessed Comments Unknown Sex and Gender Information Value Date Recorded Sex Assigned at Not on file Legal Sex Female 6:53 PM CDT Gender Identity Not on file Sexual Orientation Not on file documented as of this encounter Miscellaneous Notes * Cerner Conversion Note - Maria Esther Reyes MD - 10/08/2020 6:05 AM CDT Patient: CORRIE SMITH Age: 50 years Sex: Female : 1970 Associated Diagnoses: None Author: YANE LION MD BASIC Wharf Worker: Chava Lockett MD PCP: Dr. Susu García MD Requesting MD: Dr. Estefania Martínez MD Subjective NAD. Resting in bed comfortably no acute distress. No acute overnight events. Health Status Current medications: Home Medications (8) Active aspirin 81 mg oral delayed release tablet 81 mg = 1 Tab, Oral, Daily carvedilol 12.5 mg oral tablet 12.5 mg = 1 Tab, Oral, BID hydrALAZINE 25 mg oral tablet 25 mg = 1 Tab, Oral, BID nicotine 21 mg/24 hr transdermal film, extended release 1 Patch, TransDermal, Daily Procardia XL 60 mg oral tablet, extended release 60 mg = 1 Tab, Oral, Daily Protonix 40 mg oral delayed release tablet 40 mg = 1 Tab, Oral, Daily rOPINIRole 1 mg oral tablet 1 mg = 1 Tab, Oral, At Bedtime warfarin 5 mg oral tablet , Oral, Daily , Medications (26) Active Scheduled: (9) bumetanide 1 mg/4 mL inj 1 mg 4 mL, IV Push, BID carvedilol 12.5 mg tab 12.5 mg 1 Tab, Oral, BID docusate sodium 100 mg cap 100 mg 1 Cap, Oral, BID enoxaparin 60 mg/0.6 mL inj 60 mg 0.6 mL, SubCutaneous, Y24OYlu hydrALAZINE 25 mg tab 25 mg 1 Tab, Oral, BID NIFEdipine ER 60 mg tab 60 mg 1 Tab, Oral, Daily pantoprazole EC 40 mg tab 40 mg 1 Tab, Oral, Daily rOPINIRole 1 mg tab 1 mg 1 Tab, Oral, At Bedtime warfarin 5 mg tab 5 mg 1 Tab, Oral, Daily Continuous: (0) PRN: (17) acetaminophen 325 mg tab 650 mg 2 Tab, Oral, Q4H acetaminophen 325 mg tab 650 mg 2 Tab, Oral, Q4H albuterol-ipratropium inh 3 mL 3 mL, Nebulized Inhalation, RT_Q6H calcium gluconate 1 Gram 10 mL, IV Piggyback, Daily calcium gluconate + NaCl 0.9% 50 mL 2 Gram 20 mL, IV Piggyback, Daily calcium gluconate + NaCl 0.9% 50 mL 2 Gram 20 mL, IV Piggyback, Q12H magnesium sulfate 2 Gram 50 mL, IV Piggyback, Daily magnesium sulfate 2 Gram 50 mL, IV Piggyback, Q2H nicotine 21 mg/24 hr patch 1 Patch, TransDermal, Daily ondansetron 4 mg/2 mL inj 4 mg 2 mL, IV Push, Q4H polyethylene glycol 3350 pwd 17 g pkt 17 Gram 1 Packet, Oral, Daily potassium chloride 10 mEq 50 mL, IV Piggyback, Q1H potassium chloride CR 20 mEq tab 20 mEq 1 Tab, Oral, Q2H potassium chloride CR 20 mEq tab 60 mEq 3 Tab, Oral, Q2H promethazine 25 mg/1 mL inj 6.25 mg 0.25 mL, IV Push, Q6H sodium phosphate 15 mMole 5 mL, IV Piggyback, Daily sodium phosphate 15 mMole 5 mL, IV Piggyback, Q6H Problem list: Active Problems (16) At risk for sleep [...] Intake and Output 24 hour intake: Total 1,215 ml 24 hour output: Total 2,790 ml VS/Measurements Vitals Signs (last 24 hrs) Last Charted Minimum Maximum Temp 98 (OCT 08:) 97.8 (OCT 07 15:00) 99 (OCT 07 18:22) Apical HR H 101 (OCT 07 20:23) H 101 (OCT 07 20:23) H 101 (OCT 07 20:23) Mon HR 86 (OCT 08:) 86 (OCT 08:) 101 (OCT 07:22) Resp Rate 18 (OCT 08:) 16 (OCT 07 15:00) H 26 (OCT 07 11:20) SBP 96 (OCT 08:) L 87 (OCT 08 01:58) H 145 (OCT 07 11:20) DBP 64 (OCT 08 05:27) 60 (OCT 08 01:58) H 95 (OCT 07 11:20) MAP 75 (OCT 08 05:) 70 (OCT 08 01:58) 81 (OCT 07 15:00) SpO2 94 (OCT 08:) 94 (OCT 07 20:22) 99 (OCT 07 11:20) General: Alert and oriented, No acute distress. Eye: Pupils are equal, round and reactive to light, Normal conjunctiva, Vision unchanged. HENT: Normocephalic. Neck: Supple, Non-tender, No carotid bruit, No jugular venous distention. Respiratory: Lungs are clear to auscultation, Respirations are non-labored, Breath sounds are equal, Symmetrical chest wall expansion. Cardiovascular: Normal rate, Regular rhythm, No murmur, Good pulses equal in all extremities, Mechinical Mitral Valve click.. Gastrointestinal: Soft, Non-distended, Normal bowel sounds. Musculoskeletal: Normal range of motion, Normal strength. Integumentary: Warm, Dry, [place]. Neurologic: Alert, Oriented. Psychiatric: Cooperative, Appropriate mood & affect. Results Review OCT 08 03:12 139 104 H 29 / H 110 L 3.3 29 H 2.40 \ OCT 08 03:12 \ L 10.7 / 5.2 L 153 / L 33.7 \ ECHO 10/08/19 Impression: Normal sized left ventricle. Mild left ventricular hypertrophy. Visually estimated ejection fraction 30% +/- 5%. Severe left ventricular systolic dysfunction with severely abnormal systolic strain pattern. Abnormal diastolic function. Severely LA enlargement. LANIE = ( 95.03 ml/m2). Abnormal TAPSE; abnormal right ventricular function. Status post mechanical mitral valve replacement. Peak P mmHg. Mean P mmHg. Increased gradients noted which are similar to immediate postoperative gradients. Both mechanical leaflets appear mobile with minimal restriction when compared to postoperative TTE. 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 Diuresed about 1500 mils overnight. Would continue with another day of IV diuretics and probably switch to p.o. tomorrow. Had a lengthy discussion with the patient and her regarding the importance of medication compliance as it appears she is not very compliant with her medicines. Continue with Coumadin dosing. 10/07/20 Agree with diuresis. Will consult pharmacy for Warfarin dosing and add renally dosed therapeutic Lovenox to bridge until INR is > 1.8. Will review ECHO. Further recommendations will follow pending above results. documented in this encounter Plan of Treatment Upcoming Encounters Date Type Department Care Team (Late st Contact Info) Description 04/12/2025 7:30 AM EDT Hospital Encounter [facility] Operating Room 1 [place] [address] Bill Graham MD [address] [place] [address] 04/12/2025 7:30 AM EDT Anesthesia Event [facility] Operating Room 1 [place] [address] Lucio Szymanski MD [address] [place] [address] 04/12/2025 7:30 AM EDT - 04/12/2025 8:55 AM EDT Surgery [facility] Operating Room 1 [place] [address] Bill Graham MD [address] [place] [address] (LAPAROSCOPIC PERITONEAL DIALYSIS CATHETER INSERTION) Scheduled Procedures Name Priority Associated Diagnoses Date/Ti me LAPAROSCOPY, WITH PERITONEAL DIALYSIS CATHETER INSERTION Chronic kidney disease, stage V (HCC) 04/12/2025 7:30 AM EDT documented as of this encounter Visit Diagnoses Not on filedocumented in this encounter Care Teams Flooring Grader Relationship Specialty Start Date End Date Félix Monroe APRN [address] [facility] [address] [place] [address] PCP - General Nurse Practitioner 08/25/22 documented as of this encounter
--- OUTSIDE RECORDS SUMMARY | 2025-04-11 11:09 | XMS_ITS | Encounter Summary ---
Author Organization [employer] ([place], [place], [place], [place]) Address [address] [address] Care Team Providers Care Stage Setting Painter Apprentice Name Role Phone Félix Monroe APRN Primary Care Provider [phone] Encounter Details Date Type Department Care Team (Late st Contact Info) Description 10/08/2020 Transcribed Document [facility] [place] Family Medicine [address] [place] [address] ProviderMaria Esther MD [address] [place] [address] Social History Tobacco Use Types Packs/Day Years Used Date Smoking Tobacco: Never Assessed Comments Unknown Sex and Gender Information Value Date Recorded Sex Assigned at Not on file Legal Sex Female 6:53 PM CDT Gender Identity Not on file Sexual Orientation Not on file documented as of this encounter Miscellaneous Notes * Cerner Conversion Note - Maria Esther ProviderMD - 10/08/2020 1:14 PM CDT UM Authorization Entered On: 10/08/2020 13:14 EDT Performed On: 10/08/2020 13:14 EDT by JESSICA GUIDO RN-Utilization Review Primary Insurance Authorization Authorization and Policy Numbers : Insurance 1 Health Plan: [place] [employer] Policy Number: [id number] Authorization Number: Insurance Primary Name : [place] [employer] Policy Number: [id number] Authorization Status-Primary : Awaiting callback Authorized Service Begin Date-Primary : 10/07/2020 EDT Historical Authorization Comments-Primary : No Authorization Comments Found JESSICA GUIDO RN-Utilization Review - 10/08/2020 13:14 EDT Electronically signed by Nir, Evaristo Conversion Waterworks Pump Station Operator Cerner at 10/28/2022 7:02 PM CDT documented in this encounter Plan of Treatment Upcoming Encounters Date Type Department Care Team (Late st Contact Info) Description 04/12/2025 7:30 AM EDT Hospital Encounter [facility] Operating Room [address] [place] [address] [place] [address] [place] [address] [address] [place] [address] 04/12/2025 7:30 AM EDT Anesthesia Event [facility] Operating Room [address] [place] [address] Lucio Szymanski MD [address] [place] [address] 04/12/2025 7:30 AM EDT - 04/12/2025 8:55 AM EDT Surgery [facility] Operating Room [address] [place] [address] [place] [address] [place] [address] [address] [place] [address] (LAPAROSCOPIC PERITONEAL DIALYSIS CATHETER INSERTION) Scheduled Procedures Name Priority Associated Diagnoses Date/Ti me LAPAROSCOPY, WITH PERITONEAL DIALYSIS CATHETER INSERTION Chronic kidney disease, stage V (HCC) 04/12/2025 7:30 AM EDT documented as of this encounter Visit Diagnoses Not on filedocumented in this encounter Care Teams Stage Setting Painter Apprentice Relationship Specialty Start Date End Date Félix Monroe, TRACK REPAIRER [address] [facility] [address] [place] [address] PCP - General Nurse Practitioner 08/25/22 documented as of this encounter
--- OUTSIDE RECORDS SUMMARY | 2025-04-11 11:09 | XMS_ITS | Encounter Summary ---
Author Organization [employer] ([place], [place], [place], [place]) Address [address] [address] Care Team Providers Care Soccer Coach Name Role Phone Fer Félix Francisco RODRIGUEZ Primary Care Provider [phone] Encounter Details Date Type Department Care Team (Late st Contact Info) Description 10/20/2019 Transcribed Document [facility] [place] Family [place] [address] ProviderMaria Esther MD [address] [place] [address] Social History Tobacco Use Types Packs/Day Years Used Date Smoking Tobacco: Never Assessed Comments Unknown Sex and Gender Information Value Date Recorded Sex Assigned at Not on file Legal Sex Female 6:53 PM CDT Gender Identity Not on file Sexual Orientation Not on file documented as of this encounter Miscellaneous Notes * Cerner Conversion Note - Maria Esther Reyes MD - 10/20/2019 9:15 AM CDT Patient: CORRIE SMITH Age: 49 years Sex: Female : 1970 Associated Diagnoses: None Author: SHAWANDA LUIS MD-NEP Basic Information No new complaints Review of Systems ROS reviewed as [...] initial episode of care / SNOMED CT 2400997367 / Confirmed At risk for sleep apnea / IMO 30682327 / Confirmed CHF, acute on chronic / SNOMED CT 43091285 / Confirmed Class 3 Systolic GERD - Gastro-esophageal reflux disease / SNOMED CT 2039935466 / Confirmed H/O: TIA / SNOMED CT 141724815 / Confirmed History of laparoscopic adjustable gastric banding / SNOMED CT 7987075169 / Confirmed History of obstructive sleep apnea / IMO 55838965 / Confirmed HTN - Hypertension / SNOMED CT 1372190027 / Confirmed Mitral regurgitation / SNOMED CT 18614422 / Confirmed Prolonged QT interval / SNOMED CT 791971177 / Confirmed 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 093697255 / Confirmed Pulmonary edema / SNOMED CT 28213557 / Confirmed Restless legs syndrome / SNOMED CT 22209594 / Confirmed RF - Renal failure, Stage 4 / SNOMED CT 2638276029 / Confirmed Sleep apnea-before weight loss surgery / SNOMED CT 972714975 / Confirmed, Active Problems (16) At risk [...] Past Medical History: Active HTN - Hypertension (5204907787) Family History: No family history items have [...] Last Charted Minimum Maximum Temp 97.9 (OCT 19 05:26) 97.9 (OCT 19 05:26) 98 (OCT 18 10:02) Apical HR 80 (OCT 19 08:35) 69 (OCT 18 21:13) 84 (OCT 18 15:56) Mon HR 91 (OCT 19 05:26) 69 (OCT 18 20:54) 92 (OCT 18 18:02) Resp Rate 18 (OCT 19 05:26) 16 (OCT 18 10:02) 18 (OCT 19 02:12) SBP 94 (OCT 19 05:26) 94 (OCT 19 05:26) H 142 (OCT 19 02:12) DBP 67 (OCT 19 05:26) 67 (OCT 19 05:26) H 95 (OCT 19 02:12) MAP 75 (OCT 19 05:26) 75 (OCT 19 05:26) 110 (OCT 19 02:12) SpO2 L 87 (OCT 19 05:26) L 87 (OCT 19 05:26) 94 (OCT 18 23:17) General: Alert and oriented, No acute distress. [...] Labs (Last four charted values) WBC H 14.2 (OCT 19) H 15.3 (OCT 18) H 16.9 (OCT 17) H 12.8 (OCT 16) HB L 8.5 (OCT 19) L 8.3 (OCT 18) L 8.2 (OCT 17) L 8.0 (OCT 16) HCT L 27.3 (OCT 19) L 25.2 (OCT 18) L 25.0 (OCT 08) L 25.1 (OCT 07) Plt 163 (OCT 19) L 141 (OCT 18) L 155 (OCT 17) L 116 (OCT 16) Na L 133 (OCT 19) L 132 (OCT 09) L 133 (OCT 08) 138 (OCT 07) K 3.7 (OCT 19) 3.7 (OCT 09) 4.1 (OCT 08) 4.4 (OCT 07) Cl 102 (OCT 10) 102 (OCT 09) 102 (OCT 08) 107 (OCT 07) CO2 22 (OCT 19) 22 (OCT 09) L 19 (OCT 08) 21 (OCT 07) BUN H 41 (OCT 10) H 39 (OCT 09) H 36 (OCT 08) H 31 (OCT 07) Cr H 3.30 (OCT 19) H 3.70 (OCT 09) H 3.90 (OCT 08) H 3.40 (OCT 16) Glu R 102 (OCT 19) 99 (OCT 18) H 122 (OCT 17) H 119 (OCT 16) Ca L 8.3 (OCT 19) 8.4 (OCT 18) 8.8 (OCT 17) L 7.9 (OCT 16) Lactic 1.2 (OCT 10) PT H 49.6 (OCT 19) H 49.3 (OCT 18) H 18.3 (OCT 17) 11.6 (OCT 16) INR H 4.7 (OCT 19) H 4.7 (OCT 18) H 1.7 (OCT 17) 1.1 (OCT 16) PTT 25.7 (OCT 15) 29.1 (OCT 14) [...] Blood pressure appears to be better controlled. Her blood pressure is on the low side today and I will adjust her medications 3. Severe mitral regurgitation, status post repair [...] from severe anemia, serum creatinine seems to improve down to 3.3 mg/dL. 5. Severe hemolytic anemia, most probably secondary to mitral valve disease, hematology are following. Hemoglobin stable, will leave the management to hematology service. documented in this encounter Plan of Treatment Upcoming Encounters Date Type Department Care Team (Late st Contact Info) Description 04/12/2025 7:30 AM EDT Hospital Encounter [facility] Operating Room [address] [place] [address] Bill Graham MD [address] [facility] [address] [place] [address] 04/12/2025 7:30 AM EDT Anesthesia Event [facility] Operating Room 1 [place] [address] Lucio Szymanski MD [address] [place] [address] 04/12/2025 7:30 AM EDT - 04/12/2025 8:55 AM EDT Surgery [facility] Operating Room 1 [place] [address] [place] [address] [place] [address] [address] [place] [address] (LAPAROSCOPIC PERITONEAL DIALYSIS CATHETER INSERTION) Scheduled Procedures Name Priority Associated Diagnoses Date/Ti me LAPAROSCOPY, WITH PERITONEAL DIALYSIS CATHETER INSERTION Chronic kidney disease, stage V (HCC) 04/12/2025 7:30 AM EDT documented as of this encounter Visit Diagnoses Not on filedocumented in this encounter Care Teams Soccer Coach Relationship Specialty Start Date End Date Félix Monroe, JET BLADE POLISHER [address] [facility] [address] [place] [address] PCP - General Nurse Practitioner 08/25/22 documented as of this encounter
--- OUTSIDE RECORDS SUMMARY | 2025-04-11 11:09 | XMS_ITS | Encounter Summary ---
Author Organization [employer] ([place], [place], [place], [place]) Address [address] [address] Care Team Providers Care Carpenters Name Role Phone Félix Monroe APRN Primary Care Provider [phone] Encounter Details Date Type Department Care Team (Late st Contact Info) Description 10/20/2019 Transcribed Document [facility] [place] [facility] [place] [address] ProviderMaria Esther MD [address] [place] [address] Social History Tobacco Use Types Packs/Day Years Used Date Smoking Tobacco: Never Assessed Comments Unknown Sex and Gender Information Value Date Recorded Sex Assigned at Not on file Legal Sex Female 6:53 PM CDT Gender Identity Not on file Sexual Orientation Not on file documented as of this encounter Miscellaneous Notes * Cerner Conversion Note - Maria Esther Reyes MD - 10/20/2019 9:04 AM CDT Patient: AWAIS SMITH Age: 49 [...] coughing, secretions too thick to get out 10/19/19: POD#3 Ambulating well. Denies chest pain or dyspnea. Paced at 90. 10/20/19: POD#4 Health Status Allergies: Allergic Reactions (Selected) Severity Not Documented Codeine- Welts, nausea and hives. Current medications.Problem list. Objective VS/Measurements Vital Measurements 10/20/2019 8:35 EDT Heart Rate, Apical 80 bpm 10/20/2019 5:26 EDT Systolic Blood Pressure 94 mmHg Diastolic Blood Pressure 67 mmHg Temperature, Fahrenheit 97.9 Deg F Oxygen Saturation 87 % LOW Oxygen Therapy Mode Room air General: Alert and oriented. Respiratory: Lungs are clear to auscultation. Cardiovascular: Normal rate, Regular rhythm. Gastrointestinal: Soft, Non-tender, Non-distended. sternal incision>> C D I Tolerates PO Voiding Last BM >> 4\8 Ambulates Results Review General results Today's results 10/20/2019 4:31 EDT Sodium Level 133 mmol/L LOW Potassium Level 3.7 mmol/L Chloride Level 102 mmol/L Carbon Dioxide Level 22 mmol/L Anion Gap 13 Glucose Level 102 mg/dL Blood Urea Nitrogen 41 mg/dL HI Creatinine Level 3.30 mg/dL HI eGFR 18 mL/min/1.73m2 LOW eGFR NonAfrican 15 mL/min/1.73m2 LOW Bun/Creatinine 12.4 Calcium Level 8.3 mg/dL LOW WBC 14.2 K/uL HI RBC 2.62 Million/uL LOW Hgb 8.5 g/dL LOW Hct 27.3 % LOW MCV 104.2 fL HI MCH 32.4 pg HI MCHC 31.1 Gram/dL LOW Platelet Count 163 K/uL Interpretation: Radiology Results (Last 48 hours) [id number] -- 10/11/2019 15:38 CR Chest 1 Vw Portable (10/19/2019 06:20) Result: PORTABLE CHEST 10/19/2019 4:00 AM HISTORY: Pleural effusion.COMPARISON: October 18, 2019.FINDINGS: There has been interval removal of surgical drain previouslynoted projecting over the mediastinum. The patient is status post mitralvalve replacement. The heart is proper size. The mediastinum isunremarkable. There is stable atelectasis and pleural effusions, leftgreater than right. There is no pneumothorax. IMPRESSION: Stable atelectasis and pleural effusions, left greater thanright.Images reviewed, interpreted, and dictated by Dr. Ramy Andino.Transcribed by Emerita Alejo PA-C.I have personally viewed, interpreted and dictated the examination. Ihave read and agree with the above final transcribed report. CR Chest 1 Vw Portable (10/20/2019 06:25) Result: PORTABLE CHEST 10/20/2019 4:00 AM HISTORY: Pleural effusion.FINDINGS: The heart is stable in size . There has been intervalworsening in the perihilar and bibasilar opacities . There is a stablemoderate left pleural effusion. Right upper lobe nodule likelyrepresents artifact. There is no pneumothorax . The patient is statuspost median sternotomy. IMPRESSION: Interval worsening as above. Continued follow up recommended . Images reviewed, interpreted, and dictated by Dr. Frances Ortiz.Transcribed by Juno Arciniega PA-C, R.T. (N), C N M T. PATH:>> Impression and Plan VTE STATUS>>SCDS 10/13/19 RIA: S/p mitral ring repair. Tethering of the posterior mitral leaflet. Severe mitral regurgitation (4+) is present. Eccentric, anteriorly directed regurgitant mitral jet. No vegetations. Redo MVR on Wednesday by Dr. Valdez Transfer to [facility] 10/14/19 Reentry sternotomy for MVR Wednesday [...] PT/INR Coumadin 3mg PO Daily Transfer to [facility] 10/18/19 Telemetry>> AV paced at 89 [...] Rx of chart for Dr. Valdez's signature 10/19/19: POD#3 Ambulating well. Denies chest pain or dyspnea. Paced at 90. Dr. Bowser>>Continue procrit as outpatient. (not to step on anyone's toes) but we could give weekly procrit and do INR at our office if cardiology doesn't mind instead of going to two different locations each week. . 10/20/19: POD#4 Telemetry>>AV paced ( 80 to 91); temp. pacemaker set at 80)>> disconnected>> stable sinus in 80's O2 sat : INR 4.7 ( see diary below) Creatinine 3.3 ( 3.7 yesterday) Pt seen and evaluated by Dr. Valdez>> Prob. ready for discharge tomorrow Anticipate coumadin 0.5 mg one or two times a week (Dr. Valdez will re-evaluate tomorrow) Per his order. Pacing wires retracted and clipped without problem\.br FU appts ordered Pain RX on chart ( percocet 5\325 mg q4hrs PRN for sterhal incisional Pain) Cardiac Rehab: [facility] COUMADIN DIARY Goal INR: 2 to 3 Coumadin to be managed by Dr. Ronan Bowser ( [phone]) Pt already has appt on to receive Procrit; Pt to have INR at that time Date: 10/16 10/17 10/18 10/19 10/20 10/21 10/22 INR 1.1 1.7 4.7 4.7 Coumadin: 1 mg 0.5mg none none documented in this encounter Plan of Treatment Upcoming Encounters Date Type Department Care Team (Late st Contact Info) Description 04/12/2025 7:30 AM EDT Hospital Encounter [facility] Operating Room 1 [place] [address] [place] [address] [place] [address] [place] [address] 04/12/2025 7:30 AM EDT Anesthesia Event [facility] Operating Room 1 [place] [address] Lucio Szymanski MD [address] [place] [address] 04/12/2025 7:30 AM EDT - 04/12/2025 8:55 AM EDT Surgery [facility] Operating Room 1 [place] [address] Bill Graham MD [address] [place] [address] [address] [place] [address] (LAPAROSCOPIC PERITONEAL DIALYSIS CATHETER INSERTION) Scheduled Procedures Name Priority Associated Diagnoses Date/Ti me LAPAROSCOPY, WITH PERITONEAL DIALYSIS CATHETER INSERTION Chronic kidney disease, stage V (HCC) 04/12/2025 7:30 AM EDT documented as of this encounter Visit Diagnoses Not on filedocumented in this encounter Care Teams Carpenters Relationship Specialty Start Date End Date Félix Monroe, NEWSPAPER CLIPPER [address] [facility] [address] [place] [address] PCP - General Nurse Practitioner 08/25/22 documented as of this encounter
--- OUTSIDE RECORDS SUMMARY | 2025-04-11 11:09 | XMS_ITS | Encounter Summary ---
Author Organization [employer] ([place], [place], [place], [place]) Address [address] [address] Care Team Providers Care Press And Blow Machine Tender Name Role Phone Félix Monroe MICHAEL Primary Care Provider [phone] Encounter Details Date Type Department Care Team (Late st Contact Info) Description 10/07/2020 Transcribed Document [facility] [place] [address] [place] [address] ProviderMaria Esther MD [address] [place], [place] [phone] Social History Tobacco Use Types Packs/Day Years Used Date Smoking Tobacco: Never Assessed Comments Unknown Sex and Gender Information Value Date Recorded Sex Assigned at Not on file Legal Sex Female 6:53 PM CDT Gender Identity Not on file Sexual Orientation Not on file documented as of this encounter Miscellaneous Notes * Cerner Conversion Note - Historical ProviderMD - 10/07/2020 12:35 PM CDT Evaluation, Physical Therapy Entered On: 10/08/2020 14:42 EDT Performed On: 10/08/2020 13:28 EDT by WOODROW SÁNCHEZ, KEYANA General Information, PT Visit Type, PT : Initial evaluation Patient Orders : Order Date Order Ordering 10/07/2020 12:40 PT Evaluation and Treatment Ordered By: CHRISTIANO SYED NP-FAM Active Diagnoses : No Qualifying Diagnoses Therapy Diagnosis, PT : PT eval requested after admit with SOA Onset of Problem, PT : 10/07/2020 EDT Admission Date : 10/07/2020 10:57 Personal Devices : Personal Devices No Devices Recorded Assistive Devices : Assistive Devices No Devices Recorded General Information Comment, PT : SOA PMH: HTN, COPD, CHF, WOODROW SÁNCHEZ, PT - 10/08/2020 14:39 EDT General Status Patient Received Status : Supine in bed Treatment Start Time : 10/08/2020 13:16 EDT Patient Left Status : Supine in bed, Communication board completed, All needs met and within reach RN/PCT Informed Comment : brooke Treatment End Time : 10/08/2020 13:28 EDT Treatment Time : 12 Minute(s) WOODROW SÁNCHEZ PT - 10/08/2020 14:39 EDT History and Environment Living Situation, Therapy : Home Patient Lives With : Spouse Persons Assisting Patient at Home : Alone, Spouse Professional Skilled Services : None Persons Providing Information : Patient Home Equipment Therapy, PT : None Home Setup : One story Stairs : No Ramp : Yes WOODROW SÁNCHEZ PT - 10/08/2020 14:39 EDT Prior Level of Function PT GRID Prior LOF Ambulation, Household : Independent Prior LOF Ambulation, Community : Independent Prior LOF Bed Mobility : Independent Prior LOF Toileting : Independent Prior LOF Transfer : Independent WOODROW SÁNCHEZ PT - 10/08/2020 14:39 EDT Functional Mobility Mobility Grid Supine to Sit : Rehab Complete independence Sit to Stand : Rehab Complete independence Stand to Sit : Rehab Complete independence Sit to Supine : Rehab Complete independence WOODROW SÁNCHEZ PT - 10/08/2020 14:39 EDT Gait Training/Assessment, PT Gait Assistance Level : Independent, complete Walking Distance : 425' Ambulatory Devices : None, Gait belt WOODROW SÁNCHEZ PT - 10/08/2020 14:39 EDT 4 Item Dynamic Gait Index Gait Level Surface : Normal Change in Gait Speed : Normal Gait With Horizontal Head Turns : Normal Gait With Vertical Head Turns : Normal Interpretation: 4 item DGI < 10/12 = falls risk : 12 WOODROW SÁNCHEZ PT - 10/08/2020 14:39 EDT Edu Topics Physical Therapy Education Grid Role of Physical Therapy : Verbalizes understanding WOODROW SÁNCHEZ PT - 10/08/2020 14:39 EDT Indication Assesessment, PT Physical Therapy Indicated : No Physical Therapy Not Indicated : Independent, complete, No skilled services ind., Prior level of function GONZALO, WOODROW, PT - 10/08/2020 14:39 EDT Plan of Care, PT PT Tx Plan/Goals Established w Patient : Yes GONZALOCARLOSWOODROW, PT - 10/08/2020 14:39 EDT Treatment Note Subjective Comment : Patient agreed to PTx. RN ok'd PTx. Assessment : Patient demonstrates independence and safety with functional mobility, transfers and gait. Patient able to ambulate without LOB demonstrating sufficient dynamic balance. Patient also exhibits adequate activity tolerance and normalized gait speed. Patient does not indicate need for skilled PT services at this time. PT will sign off. Plan for Treatment : Discharge patient from WOODROW SÁNCHEZ, PT - 10/08/2020 14:39 EDT Pain Assessment Pain Scaled Used : 0-10 Pain scale Pain Score Pre-Intervention : 0 WOODROW SÁNCHEZ PT - 10/08/2020 14:39 EDT Image 1 - Images currently included in the form version of this document have not been included in the text rendition version of the form. Anticipated Discharge Needs, OT/PT Anticipated Discharge to : Home, with family care Recommend Continued Therapy at Discharge : No WOODROW SÁNCHEZ PT - 10/08/2020 14:[address] [facility] PT Charges PT Eval Moderate Complexity : 1 WOODROW SÁNCHEZ PT - 10/08/2020 14:39 EDT documented in this encounter Plan of Treatment Upcoming Encounters Date Type Department Care Team (Late st Contact Info) Description 04/12/2025 7:30 AM EDT Hospital Encounter [facility] Operating Room 1 [place] [address] Bill Graham MD [address] [place] [address] [address] [place] [address] 04/12/2025 7:30 AM EDT Anesthesia Event [facility] Operating Room [address] [place] [address] Lucio Szymanski MD [address] [place] [address] 04/12/2025 7:30 AM EDT - 04/12/2025 8:55 AM EDT Surgery [facility] Operating Room [address] [place] [address] [place] [address] [place] [address] [address] [place] [address] (LAPAROSCOPIC PERITONEAL DIALYSIS CATHETER INSERTION) Scheduled Procedures Name Priority Associated Diagnoses Date/Ti me LAPAROSCOPY, WITH PERITONEAL DIALYSIS CATHETER INSERTION Chronic kidney disease, stage V (HCC) 04/12/2025 7:30 AM EDT documented as of this encounter Visit Diagnoses Not on filedocumented in this encounter Care Teams Press And Blow Machine Tender Relationship Specialty Start Date End Date Félix Monroe, SUPERVISOR PYROTECHNIC LOADING [address] [facility] [address] [place] [address] PCP - General Nurse Practitioner 08/25/22 documented as of this encounter
--- OUTSIDE RECORDS SUMMARY | 2025-04-11 11:09 | XMS_ITS | Encounter Summary ---
Author Organization [employer] ([place], [place], [place], [place]) Address [address] [place] [address] Care Team Providers Care Customs And Border Protection Inspector Name Role Phone Fer Félix Francisco RODRIGUEZ Primary Care Provider [phone] Encounter Details Date Type Department Care Team (Late st Contact Info) Description 10/21/2019 Transcribed Document [facility] [place] Family Medicine [address] [place] [address] ProviderMaria Esther MD [address] [place] [id number] Social History Tobacco Use Types Packs/Day Years Used Date Smoking Tobacco: Never Assessed Comments Unknown Sex and Gender Information Value Date Recorded Sex Assigned at Not on file Legal Sex Female 6:53 PM CDT Gender Identity Not on file Sexual Orientation Not on file documented as of this encounter Miscellaneous Notes * Cerner Conversion Note - Maria Esther ProviderMD - 10/21/2019 4:00 AM CDT Height and Weight, Routine Entered On: 10/21/2019 4:50 EDT Performed On: 10/21/2019 4:00 EDT by Wili Cabrera Care Asst-Health Unit Coord Height and Weight, Routine Routine Weight Source : Bed scale Routine Weight Entry Format : Bryant Routine Weight, Pounds : 153 lb Routine Weight, Ounces : 3 oz Routine Weight Calculation : 69.63 kg Height Source : Chart Height Entry Format : Bryant Height, Feet : 5 ft Height, Inches : 6 Inch Clinical Height : 167.64 cm Body Surface Area (BSA), Routine : 1.79 m2 Body Mass Index (BMI), Routine : 24.78 kg/m2 Wili Cabrera Care Asst-Health Unit Coord - 10/21/2019 4:50 EDT documented in this encounter Plan of Treatment Upcoming Encounters Date Type Department Care Team (Late st Contact Info) Description 04/12/2025 7:30 AM EDT Hospital Encounter [facility] Operating Room 1 [place] [address] [place] [address] [place] [address] 04/12/2025 7:30 AM EDT Anesthesia Event [facility] Operating Room [address] [place] [address] Lucio Szymanski MD [address] [place] [address] 04/12/2025 7:30 AM EDT - 04/12/2025 8:55 AM EDT Surgery [facility] Operating Room [address] [place] [address] Bill Graham MD [address] [place] [address] (LAPAROSCOPIC PERITONEAL DIALYSIS CATHETER INSERTION) Scheduled Procedures Name Priority Associated Diagnoses Date/Ti me LAPAROSCOPY, WITH PERITONEAL DIALYSIS CATHETER INSERTION Chronic kidney disease, stage V (HCC) 04/12/2025 7:30 AM EDT documented as of this encounter Visit Diagnoses Not on filedocumented in this encounter Care Teams Customs And Border Protection Inspector Relationship Specialty Start Date End Date Félix Monroe, VENEER SPLICER [address] [facility] [address] [place], [place] [id number] PCP - General Nurse Practitioner 08/25/22 documented as of this encounter
--- OUTSIDE RECORDS SUMMARY | 2025-04-11 11:09 | XMS_ITS | Encounter Summary ---
Author Organization [employer] ([place], [place], [place], [place]) Address [address] [address] Care Team Providers Care Data Analytics Developer Name Role Phone Félix Monroe APRN Primary Care Provider [phone] Encounter Details Date Type Department Care Team (Late st Contact Info) Description 10/19/2019 Transcribed Document [facility] [place] [address] ProviderMaria Esther MD [address] [place] [address] Social History Tobacco Use Types Packs/Day Years Used Date Smoking Tobacco: Never Assessed Comments Unknown Sex and Gender Information Value Date Recorded Sex Assigned at Not on file Legal Sex Female 6:53 PM CDT Gender Identity Not on file Sexual Orientation Not on file documented as of this encounter Miscellaneous Notes * Cerner Conversion Note - Maria Esther Reyes MD - 10/19/2019 10:02 AM CDT Patient: AWAIS SMITH Age: 49 years Sex: Female : 1970 Associated Diagnoses: None Author: Saurav Ferraro PA-C Admission Date: Attending: Dr. Александр Valdez, CT [...] 28 mm CG annuloplasty band. 3. Placement, On-X mechanical mitral prosthesis. a. Salvage and [...] chest pain or dyspnea. Paced at 90. Health Status Allergies: Allergic Reactions (Selected) Severity [...] Oral, At Bedtime, 90 Tab, 0 Refill(s), Home Medications (6) Active amLODIPine 5 mg [...] mg = 1 Tab, Oral, At Bedtime , Medications (31) Active Scheduled: (13) #NaCl 0.9% *FLUSH* inj [...] mL, IntraVENous, Q6H Problem list: All Problems COPD (chronic obstructive pulmonary disease) / SNOMED CT 26499851 / Confirmed HTN - Hypertension / SNOMED CT 7025035852 / Confirmed Prolonged QT interval / SNOMED CT 339240631 / Confirmed CHF, acute on chronic / SNOMED CT 34139194 / Confirmed Class 3 Systolic Pulmonary edema / SNOMED CT 28546653 / Confirmed NSTEMI, initial episode of care / SNOMED CT 1490114452 / Confirmed Mitral regurgitation / SNOMED CT 19616408 / Confirmed RF - Renal failure, Stage 4 / SNOMED CT 4472315901 / Confirmed Sleep apnea-before weight loss surgery / SNOMED CT 612157780 / Confirmed GERD - Gastro-esophageal reflux disease / SNOMED CT 7688588486 / Confirmed Restless legs syndrome / SNOMED CT 71548628 / Confirmed H/O: TIA / SNOMED CT 744287696 / Confirmed History of obstructive sleep apnea / IMO 12013519 / Confirmed History of laparoscopic adjustable gastric banding / SNOMED CT 1753007075 / Confirmed At risk for sleep apnea / IMO 21720335 / Confirmed 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 359515089 / Confirmed, Active Problems (16) At risk [...] (OCT 18 07:59) 97.8 (OCT 17 14:30) 98.1 (OCT 17 10:23) Apical HR 88 (OCT 17 14:56) 88 (OCT 17 14:56) 88 (OCT 17 14:56) Mon HR 88 (OCT 18 07:59) 81 (OCT 18 05:27) 90 (OCT 17 10:23) Resp Rate 16 (OCT 18 07:59) 16 (OCT 18 01:46) 18 (OCT 17 10:23) SBP 100 (OCT 18 07:59) 100 (OCT 18 07:59) 133 (OCT 17 17:24) DBP 68 (OCT 18 07:59) 68 (OCT 18 07:59) H 93 (OCT 17 22:22) MAP 80 (OCT 18 07:59) 80 (OCT 18 07:59) 106 (OCT 17 22:22) SpO2 97 (OCT 18 05:27) L 93 (OCT 17 14:30) 99 (OCT 17 17:24) General: Alert and oriented. Respiratory: Lungs are clear to auscultation. Cardiovascular: Normal rate, Regular rhythm. Gastrointestinal: Soft, Non-tender, Non-distended. sternal incision>> Aquacell dressing Tolerates PO Voiding Last BM >> 4\8 Ambulates Results Review General results Interpretation: Radiology Results (Last 48 hours) [id number] -- 10/11/2019 15:38 CR Chest 1 Vw Portable (10/18/2019 06:48) Result: PORTABLE CHEST X-RAYINDICATION: Pleural effusion.FINDINGS: A portable view of the chest was obtained. Comparison ismade to a prior exam dated 10/17/2019. The NG tube and right IJ [place]-Ganzcatheter have been removed. Pleural and mediastinal drains areunchanged. The heart is mildly enlarged. There is left greater thanright basilar opacity with small pleural effusions. Favor atelectasis.There is no pneumothorax.IMPRESSION: Bibasilar opacities and bilateral pleural effusions, favoratelectasis.Images reviewed, interpreted, and dictated by Corie Moncada MD CR Chest 1 Vw Portable (10/19/2019 06:20) [...] by Dr. Ramy Andino.Transcribed by Emerita Alejo PA-C. Impression and Plan VTE STATUS>>SCDS 10/13/19 RIA: S/p mitral ring repair. Tethering of the posterior mitral leaflet. Severe mitral regurgitation (4+) is present. Eccentric, anteriorly directed regurgitant mitral jet. No vegetations. Redo MVR on Wednesday by Dr. Valdez Transfer to [facility] 10/14/19 Reentry sternotomy for MVR Wednesday [...] PT/INR Coumadin 3mg PO Daily Transfer to [facility] 10/18/19 Telemetry>> AV paced at 89 [...] Rx of chart for Dr. Valdez's signature 10/19/19 Creatinine 3.7 today. H/H stable. INR up to 4.7 today. Hold coumadin today. Recheck INR tomorrow. Pacing per Dr. Valdez. COUMADIN DIARY Goal INR: Coumadin to be managed by [facility] ( [facility]) [phone] First INR appt tenatively scheduled for Wednesday, at 11:30a ( dependent on when pt is discharged) Date: 10/16 10/17 10/18 10/19 10/20 10/21 4 INR 1.1 1.7 4.7 Coumadin: 1 mg 0.5mg NONE Electronically signed by Nir, [facility] Conversion Mechanical Project Manager Cerner at 10/28/2022 7:24 PM CDT documented in this encounter Plan of Treatment Upcoming Encounters Date Type Department Care Team (Late st Contact Info) Description 04/12/2025 7:30 AM EDT Hospital Encounter [facility] Operating Room [address] [place] [address] [place] [address] [place] [address] [place] [address] 04/12/2025 7:30 AM EDT Anesthesia Event [facility] Operating Room [address] [place] [address] Lucio Szymanski MD [address] [place] [address] 04/12/2025 7:30 AM EDT - 04/12/2025 8:55 AM EDT Surgery [facility] Operating Room [address] [place] [address] Bill Graham MD [address] [place] [address] (LAPAROSCOPIC PERITONEAL DIALYSIS CATHETER INSERTION) Scheduled Procedures Name Priority Associated Diagnoses Date/Ti me LAPAROSCOPY, WITH PERITONEAL DIALYSIS CATHETER INSERTION Chronic kidney disease, stage V (HCC) 04/12/2025 7:30 AM EDT documented as of this encounter Visit Diagnoses Not on filedocumented in this encounter Care Teams Data Analytics Developer Relationship Specialty Start Date End Date Félix Monroe, SCRAP DROP ENGINEER [address] [facility] [address] [place] [address] PCP - General Nurse Practitioner 08/25/22 documented as of this encounter
--- OUTSIDE RECORDS SUMMARY | 2025-04-11 11:09 | XMS_ITS | Encounter Summary ---
Author Organization [employer] ([place], [place], [place], [place]) Address [address] [address] Care Team Providers Care Aoc Airspace Control Officer Name Role Phone Fer Félix Francisco RODRIGUEZ Primary Care Provider [phone] Encounter Details Date Type Department Care Team (Late st Contact Info) Description 10/20/2019 Transcribed Document [facility] [place] [address] [place] [address] ProviderMaria Esther MD [address] [place] [address] Social History Tobacco Use Types Packs/Day Years Used Date Smoking Tobacco: Never Assessed Comments Unknown Sex and Gender Information Value Date Recorded Sex Assigned at Not on file Legal Sex Female 6:53 PM CDT Gender Identity Not on file Sexual Orientation Not on file documented as of this encounter Miscellaneous Notes * Cerner Conversion Note - Maria Esther Reyes MD - 10/20/2019 2:57 PM CDT On Going Discharge Planning Entered On: 10/20/2019 14:59 EDT Performed On: 10/20/2019 14:57 EDT by ANA MARTINEZ RN-Switchboard InspectorChild Care Sitter Progress Note Discharge Arrangements : Patient Post-Acute Information Patient Name: AWAIS SMITH Gender: Female : [birth year] Age: 49 Years No Post-Acute Placement(s) Listed No Post-Acute Service(s) Listed No [place] Referral(s) Listed Discharge Options Discussed with Patient : Other: Home Barriers to Discharge Identified : Clinical Condition of Patient Barriers to Discharge Unresolved : Clinical Condition of Patient Designation of Choice Signed : No Patient Offered Choice/Affiliations Explained : No Is the Patient Meeting Medical Necessity : Yes Physician Agreeable to Move Forward with D/C Plan? : Yes Did you Attend Multidisciplinary Rounds? : Yes ANA MARTINEZ RN-Switchboard Inspector - 10/20/2019 14:57 EDT Narrative Progress Note Narrative Progress Note : Patient is a high readmission risk. ELOS: 6 days HD#9 POD#3 Redo MVR; Telemetry AV Paced, O2 sat 87 - 92% on RA. Labs: Cr 3.3, INR 4.7. Ambulated 425 feet independently. DCP: Anticipate patient will discharge home with family. CM will continue to follow for discharge planning needs. Historical Progress Note : Patient is a high readmission risk. ELOS: 6 days HD#8 POD#2 Redo MVR; Telemetry AV Paced, O2 sat 97% on RA, MTs out, mid ERWIN out. Labs: Cr 3.7, INR 4.7. Ambulated 425 feet independently. DCP: Anticipate patient will discharge home with family. Cardiac Rehab set up at [facility]. CM will continue to follow for discharge planning needs. ANA MARTINEZ RN-Switchboard Inspector - 10/19/19 15:02:01 Patient is a high readmission risk. ELOS: 6 days HD#7 POD#2 Redo MVR; Telemetry AV Paced, O2 sat 97% on RA, MTs out, mid ERWIN out. Labs: Cr 3.9, INR 1.7. PT/OT consult ordered. DCP: Anticipate patient will discharge home with family. Cardiac Rehab set up at [facility]. CM will continue to follow for discharge planning needs. ANA MARTINEZ RN-Switchboard Inspector - 10/18/19 17:49:58 POD #1 MVR redo. Paced and 90. Daily PT/INR. Plans of transferring to 3E. CM to cont following REINA JOHN RN-Care Management - 10/17/19 13:03:51 Day 5 - Pt to OR today for MVR redo surgery requiring hemodynamic monitoring lines; DCP pending progress; anticipate home without needs; will review for OP Cardiac Rehab. GUERRERO, ZAINA, Rn-Switchboard Inspector - 10/16/19 14:18:55 Cm received information from Romaine. ??m recieved letter and called for verification and spoke to radha. romaine allows these home health companies : [facility], [facility], and [facility]. RAKESH PARRA RN-Switchboard Inspector - 10/13/19 10:19:59 Cm received information from Rom[facility]. Cm recieved letter and called for verification and spoke to radha. romaine allows these home health companies : [facility], [facility], and [facility]. Patient is normally independent . patient still denies need for hh and dme. cm will arrange for any needs at discharge. DCP: home vs hh RAKESH PARRA RN-Switchboard Inspector - 10/13/19 10:24:38 ANA MARTINEZ RN-Switchboard Inspector - 10/20/2019 14:57 EDT documented in this encounter Plan of Treatment Upcoming Encounters Date Type Department Care Team (Late st Contact Info) Description 04/12/2025 7:30 AM EDT Hospital Encounter [facility] Operating Room [address] [place] [address] Bill Graham MD [address] [place] [address] 04/12/2025 7:30 AM EDT Anesthesia Event [facility] Operating Room 1 [place] [address] Lucio Szymanski MD [address] [place] [address] 04/12/2025 7:30 AM EDT - 04/12/2025 8:55 AM EDT Surgery [facility] Operating Room [address] [place] [address] Bill Graham MD [address] [place] [address] [address] (LAPAROSCOPIC PERITONEAL DIALYSIS CATHETER INSERTION) Scheduled Procedures Name Priority Associated Diagnoses Date/Ti me LAPAROSCOPY, WITH PERITONEAL DIALYSIS CATHETER INSERTION Chronic kidney disease, stage V (HCC) 04/12/2025 7:30 AM EDT documented as of this encounter Visit Diagnoses Not on filedocumented in this encounter Care Teams Aoc Airspace Control Officer Relationship Specialty Start Date End Date Félix Monroe, PRINTING TECHNICIAN [address] [facility] [address] [place] [address] PCP - General Nurse Practitioner 08/25/22 documented as of this encounter
--- OUTSIDE RECORDS SUMMARY | 2025-04-11 11:09 | XMS_ITS | Encounter Summary ---
Author Organization [employer] ([place], [place], [place], [place]) Address [address] [address] Care Team Providers Care Store Gift Wrap Associate Name Role Phone Monroe Félix Francisco RODRIGUEZ Primary Care Provider [phone] Encounter Details Date Type Department Care Team (Late st Contact Info) Description 10/21/2019 Transcribed Document [facility] [place] Medicine [address] [place] [address] ProviderMaria Esther MD [address] [place] [address] Social History Tobacco Use Types Packs/Day Years Used Date Smoking Tobacco: Never Assessed Comments Unknown Sex and Gender Information Value Date Recorded Sex Assigned at Not on file Legal Sex Female 6:53 PM CDT Gender Identity Not on file Sexual Orientation Not on file documented as of this encounter Miscellaneous Notes * Cerner Conversion Note - Maria Esther Reyes MD - 10/21/2019 5:41 PM CDT Patient: CORRIE SMITH Age: 49 years Sex: Female : 1970 Associated Diagnoses: None Author: CHRISTIANO KITCHEN MD-INT Basic Information Time of exam 1200 Care re-assumed from Dr. Estefania Martínez, events reviewed. The patient was sitting up in bed at the time of exam and in no acute distress. She accidentally rolled over in the bed last night and developed increased pain around the surgical incision after that. She is aware of the plan for repeat echo today and addition of steroids. She is hoping to go home soon. Review of Systems Respiratory: No shortness of breath, No cough. Cardiovascular: Chest pain, No palpitations. Health Status Allergies: Allergies (1) Active Reaction gerald Fu Current medications: (Selected) Inpatient Medications Ordered Ativan: 1 mg, IV Push, Q4H, PRN: Agitation Dulcolax Laxative: 10 mg, Rectal, Daily, PRN: [...] Q6H, PRN: Hypertension hydrALAZINE: 25 mg, Oral, BID lactulose: 15 Gram, Oral, Daily, PRN: Constipation magnesium sulfate + Sodium Chloride 0.9% intravenous solution 50 mL: 1 Gram, 2 mL, 100 mL/Hr, IV Piggyback, 1-Time, PRN: Other (See Comment) methylPREDNISolone: 4 mg, Oral, AC Breakfast methylPREDNISolone: 4 mg, Oral, At Bedtime methylPREDNISolone: 4 mg, Oral, PC Dinner methylPREDNISolone: 4 mg, Oral, PC Lunch methylPREDNISolone: 8 mg, Oral, At Bedtime nicotine 21 mg/24 hr transdermal film, extended [...] initial episode of care / SNOMED CT 2179818711 / Confirmed At risk for sleep apnea / IMO 81322875 / Confirmed CHF, acute on chronic / SNOMED CT 46175268 / Confirmed Class 3 Systolic GERD - Gastro-esophageal reflux disease / SNOMED CT 9988699406 / Confirmed H/O: TIA / SNOMED CT 024653290 / Confirmed History of laparoscopic adjustable gastric banding / SNOMED CT 4415232398 / Confirmed History of obstructive sleep apnea / IMO 67652706 / Confirmed HTN - Hypertension / SNOMED CT 2893423522 / Confirmed Mitral regurgitation / SNOMED CT 40659716 / Confirmed Prolonged QT interval / SNOMED CT 477883741 / Confirmed 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 035801614 / Confirmed Pulmonary edema / SNOMED CT 36904313 / Confirmed Restless legs syndrome / SNOMED CT 06389554 / Confirmed RF - Renal failure, Stage 4 / SNOMED CT 4202689986 / Confirmed Sleep apnea-before weight loss surgery / SNOMED CT 191580239 / Confirmed, Active Problems (16) At risk [...] Last Charted Minimum Maximum Temp 98.1 (OCT 20:) 97.8 (OCT 20:) 98 (OCT 19 19:57) Apical HR 90 (OCT 20 08:26) 90 (OCT 20 08:26) 94 (OCT 19 20:49) Mon HR 96 (OCT 20:) 85 (OCT 19 19:57) 96 (OCT 20:) Resp Rate 16 (OCT 20:) 16 (OCT 19 19:57) 20 (OCT 20:38) SBP 120 (OCT 20:) 114 (OCT 20:38) 135 (OCT 19 20:48) DBP 72 (OCT 20:) 72 (OCT 20:38) H 94 (OCT 20 10:30) MAP 86 (OCT 20:) 86 (OCT 20 15:00) 106 (OCT 20 10:30) SpO2 96 (OCT 20 09:00) L 91 (OCT 20:38) 96 (OCT 20 09:00) General: Alert and oriented, No acute [...] Labs (Last four charted values) WBC H 10.9 (OCT 20) H 14.2 (OCT 10) H 15.3 (OCT 18) H 16.9 (OCT 17) HB L 7.8 (OCT 20) L 8.5 (OCT 19) L 8.3 (OCT 18) L 8.2 (OCT 17) HCT L 24.1 (OCT 20) L 27.3 (OCT 19) L 25.2 (OCT 18) L 25.0 (OCT 17) Plt 178 (OCT 20) 163 (OCT 19) L 141 (OCT 18) L 155 (OCT 17) Na L 133 (OCT 20) L 133 (OCT 19) L 132 (OCT 18) L 133 (OCT 17) K L 3.4 (OCT 20) 3.7 (OCT 19) 3.7 (OCT 18) 4.1 (OCT 17) Cl 102 (OCT 20) 102 (OCT 19) 102 (OCT 18) 102 (OCT 08) CO2 23 (OCT 20) 22 (OCT 19) 22 (OCT 18) L 19 (OCT 08) BUN H 36 (OCT 20) H 41 (OCT 10) H 39 (OCT 09) H 36 (OCT 08) Cr H 3.00 (OCT 20) H 3.30 (OCT 10) H 3.70 (OCT 18) H 3.90 (OCT 17) Glu R 92 (OCT 20) 102 (OCT 10) 99 (OCT 09) H 122 (OCT 08) Ca L 7.9 (OCT 20) L 8.3 (OCT 19) 8.4 (OCT 18) 8.8 (OCT 08) Lactic 1.2 (OCT 10) PT H 30.6 (OCT 11) H 49.6 (OCT 10) H 49.3 (OCT 09) H 18.3 (OCT 08) INR H 2.9 (OCT 20) H 4.7 (OCT 10) H 4.7 (OCT 09) H 1.7 (OCT 08) PTT 25.7 (OCT 15) 29.1 (OCT 14) [...] 10) . Impression and Plan 1. Acute post-operative hypoxic respiratory failure: Resolved. 2. Mitral valve insufficiency s/p recent annuloplasty: Now s/p mechanical mitral valve prosthesis 10/15. Started on coumadin. CT Surgery following. 3. Acute blood loss anemia on chronic anemia: Likely secondary to hemolysis from valve. Hemoglobin stable. On procrit. 4. Hypertensive urgency: On presentation, now resolved. Continue nifedipine, hydralazine. 5. Prolonged QT interval: Cardiology signed off. 6. LETY on CKD stage IV: Improved, okay for discharge as per Nephrology. 7. Hyperbilirubinemia: Secondary to hemolytic process, resolved. 8. Chronic systolic CHF: Continue cardiac meds. 9. Possible pericarditis: Echo today, started on medrol dosepak. Disposition: Hopefully home soon. documented in this encounter Plan of Treatment Upcoming Encounters Date Type Department Care Team (Late st Contact Info) Description 04/12/2025 7:30 AM EDT Hospital Encounter [facility] Operating Room 1 [place] [address] Bill Graham MD [address] [place] [address] [address] [place] [phone] 04/12/2025 7:30 AM EDT Anesthesia Event [facility] Operating Room 1 [place] [address] Lucio Szymanski MD [address] [place] [address] 04/12/2025 7:30 AM EDT - 04/12/2025 8:55 AM EDT Surgery [facility] Operating Room [address] [place] [address] [place] [address] [place] [address] [address] [place] [address] (LAPAROSCOPIC PERITONEAL DIALYSIS CATHETER INSERTION) Scheduled Procedures Name Priority Associated Diagnoses Date/Ti me LAPAROSCOPY, WITH PERITONEAL DIALYSIS CATHETER INSERTION Chronic kidney disease, stage V (HCC) 04/12/2025 7:30 AM EDT documented as of this encounter Visit Diagnoses Not on filedocumented in this encounter Care Teams Store Gift Wrap Associate Relationship Specialty Start Date End Date Félix Monroe, EMERGENCY ROOM PHYSICIAN ASSISTANT [address] [facility] [address] [place] [address] PCP - General Nurse Practitioner 08/25/22 documented as of this encounter
--- OUTSIDE RECORDS SUMMARY | 2025-04-11 11:09 | XMS_ITS | Encounter Summary ---
Author Organization [employer] ([place], [place], [place], [place]) Address [address] [place] [address] Care Team Providers Care Vise Hand Name Role Phone Félix Monroe APRN Primary Care Provider [phone] Encounter Details Date Type Department Care Team (Late st Contact Info) Description 10/21/2019 Transcribed Document [facility] [place] [address] [place] [address] ProviderMaria Esther MD [address] [place] [id number] Social History Tobacco Use Types Packs/Day Years Used Date Smoking Tobacco: Never Assessed Comments Unknown Sex and Gender Information Value Date Recorded Sex Assigned at Not on file Legal Sex Female 6:53 PM CDT Gender Identity Not on file Sexual Orientation Not on file documented as of this encounter Miscellaneous Notes * Cerner Conversion Note - Maria Esther ProviderMD - 10/21/2019 2:43 AM CDT Event Note Entered On: 10/21/2019 2:47 EDT Performed On: 10/21/2019 2:43 EDT by FRANK FRAGA RN Event Note Event Date/Time : 10/21/2019 2:43 EDT Event Location : Assigned room Event Details : Other: EKG Description of Event : Dr. Valdez informed of the telemetry changes (ST elevation), the call to Dr. Cooney, the EKG results (ST elevation in V2-V5). Dr. Valdez informed of incisional site pain, patient placed on 2L O2 via NC but no shortness of breath. Dr. Valdez informed that Dr. Cooney at the bedside , assessing patient. Dr. Valdez states that this is to be expected, possibly pericarditis. Per MD, labs are ordered for the morning, please place order for echocardiogram in the morning. Orders verified and placed. Will continue to monitor. FRANK FRAGA, RN - 10/21/2019 2:43 EDT Electronically signed by [facility], [facility] Conversion Selvage Machine Operator Cerner at 10/28/2022 7:16 PM CDT documented in this encounter Plan of Treatment Upcoming Encounters Date Type Department Care Team (Late st Contact Info) Description 04/12/2025 7:30 AM EDT Hospital Encounter [facility] Operating Room [address] [place] [address] Bill Graham MD [address] [place] [address] 04/12/2025 7:30 AM EDT Anesthesia Event [facility] Operating Room [address] [place] [address] Lucio Szymanski MD [address] [place] [address] 04/12/2025 7:30 AM EDT - 04/12/2025 8:[address] [facility] Operating Room [address] [place] [address] Bill Graham MD [address] [place] [address] (LAPAROSCOPIC PERITONEAL DIALYSIS CATHETER INSERTION) Scheduled Procedures Name Priority Associated Diagnoses Date/Ti me LAPAROSCOPY, WITH PERITONEAL DIALYSIS CATHETER INSERTION Chronic kidney disease, stage V (HCC) 04/12/2025 7:30 AM EDT documented as of this encounter Visit Diagnoses Not on filedocumented in this encounter Care Teams Vise Hand Relationship Specialty Start Date End Date Félix Monroe, LITERACY TEACHER [address] [facility] [address] [place] [address] PCP - General Nurse Practitioner 08/25/22 documented as of this encounter
--- OUTSIDE RECORDS SUMMARY | 2025-04-11 11:09 | XMS_ITS | Encounter Summary ---
Author Organization [email or web address] ([place], [place], [place], [place]) Address [address] [place] [address] Care Team Providers Care Cnc Lathe Programmer Name Role Phone Monroe Félix Francisco RODRIGUEZ Primary Care Provider [phone] Encounter Details Date Type Department Care Team (Late st Contact Info) Description 10/19/2019 Transcribed Document [facility] [place] Family Medicine [address] [place] [address] ProviderMarai Esther MD [address] [place], [place] [id number] Social History Tobacco Use Types Packs/Day Years Used Date Smoking Tobacco: Never Assessed Comments Unknown Sex and Gender Information Value Date Recorded Sex Assigned at Not on file Legal Sex Female 6:53 PM CDT Gender Identity Not on file Sexual Orientation Not on file documented as of this encounter Miscellaneous Notes * Cerner Conversion Note - Maria Esther ProviderMD - 10/19/2019 4:00 AM CDT Height and Weight, Routine Entered On: 10/19/2019 4:42 EDT Performed On: 10/19/2019 4:00 EDT by Breann Garcia Care Asst-Health Unit Coord Height and Weight, Routine Routine Weight Entry Format : [place] Routine Weight, Pounds : 155 lb Routine Weight, Ounces : 7 oz Routine Weight Calculation : 70.65 kg Height Source : Chart Height Entry Format : [place] Height, Feet : 5 ft Height, Inches : 6 Inch Clinical Height : 167.64 cm Body Surface Area (BSA), Routine : 1.8 m2 Body Mass Index (BMI), Routine : 25.14 kg/m2 Alma Garciaty, Java J2Ee Application Developer-Health Unit Coord - 10/19/2019 4:42 EDT documented in this encounter Plan of Treatment Upcoming Encounters Date Type Department Care Team (Late st Contact Info) Description 04/12/2025 7:30 AM EDT Hospital Encounter [facility] Operating Room 1 [place] [address] [place] [address] [place] [address] [address] [place] [address] 04/12/2025 7:30 AM EDT Anesthesia Event [facility] Operating Room 1 [place] [address] Lucio Szymanski MD [address] [place] [address] 04/12/2025 7:30 AM EDT - 04/12/2025 8:55 AM EDT Surgery [facility] Operating Room 1 [place] [address] Bill Graham MD [address] [place] [address] (LAPAROSCOPIC PERITONEAL DIALYSIS CATHETER INSERTION) Scheduled Procedures Name Priority Associated Diagnoses Date/Ti me LAPAROSCOPY, WITH PERITONEAL DIALYSIS CATHETER INSERTION Chronic kidney disease, stage V (HCC) 04/12/2025 7:30 AM EDT documented as of this encounter Visit Diagnoses Not on filedocumented in this encounter Care Teams Cnc Lathe Programmer Relationship Specialty Start Date End Date Félix Monroe, HEALTH INFORMATICS ADVISOR [address] [facility] [address] [place] [address] PCP - General Nurse Practitioner 08/25/22 documented as of this encounter
--- OUTSIDE RECORDS SUMMARY | 2025-04-11 11:09 | XMS_ITS | Encounter Summary ---
Author Organization [employer] ([place], [place], [place], [place]) Address [address] [address] Care Team Providers Care Tumbler Dyeing Machine Operator Name Role Phone Félix Monroe APRN Primary Care Provider [phone] Encounter Details Date Type Department Care Team (Late st Contact Info) Description 10/07/2020 Transcribed Document [facility] [place] [facility] [address] ProviderMaria Esther MD [address] [place], [place] [id number] Social History Tobacco Use Types Packs/Day Years Used Date Smoking Tobacco: Never Assessed Comments Unknown Sex and Gender Information Value Date Recorded Sex Assigned at Not on file Legal Sex Female 6:53 PM CDT Gender Identity Not on file Sexual Orientation Not on file documented as of this encounter Miscellaneous Notes * Cerner Conversion Note - Maria Esther ProviderMD - 10/07/2020 9:00 PM CDT Event Note Entered On: 10/08/2020 4:55 EDT Performed On: 10/07/2020 21:00 EDT by Deya Chapin RN Event Note Event Date/Time : 10/07/2020 21:00 EDT Event Location : Assigned room Event Details : Other: Medication Description of Event : Lovenox administered at 2100hours. Deya Chapin RN - 10/08/2020 4:53 EDT documented in this encounter Plan of Treatment Upcoming Encounters Date Type Department Care Team (Late st Contact Info) Description 04/12/2025 7:30 AM EDT Hospital Encounter [facility] Operating Room 1 [place] [address] [place] [address] [place] [address] [address] [place] [address] 04/12/2025 7:30 AM EDT Anesthesia Event [facility] Operating Room 1 [place] [address] Lucio Szymanski MD [address] [place] [address] 04/12/2025 7:30 AM EDT - 04/12/2025 8:55 AM EDT Surgery [facility] Operating Room 1 [place] [address] Bill Graham MD [address] [place] [address] [address] [place] [address] (LAPAROSCOPIC PERITONEAL DIALYSIS CATHETER INSERTION) Scheduled Procedures Name Priority Associated Diagnoses Date/Ti me LAPAROSCOPY, WITH PERITONEAL DIALYSIS CATHETER INSERTION Chronic kidney disease, stage V (HCC) 04/12/2025 7:30 AM EDT documented as of this encounter Visit Diagnoses Not on filedocumented in this encounter Care Teams Tumbler Dyeing Machine Operator Relationship Specialty Start Date End Date Félix Monroe, ELECTRONICS SCALE TESTER [address] [facility] [address] [place] [address] PCP - General Nurse Practitioner 08/25/22 documented as of this encounter
--- OUTSIDE RECORDS SUMMARY | 2025-04-11 11:09 | XMS_ITS | Encounter Summary ---
Author Organization [employer] ([place], [place], [place], [place]) Address [address] [address] Care Team Providers Care Automotive Teacher Name Role Phone Félix Monroe APRN Primary Care Provider [phone] Encounter Details Date Type Department Care Team (Late st Contact Info) Description 10/20/2019 Transcribed Document [facility] [place] Family Medicine [address] [place] [address] ProviderMaria Esther MD [address] [place], [place] [address] Social History Tobacco Use Types Packs/Day Years Used Date Smoking Tobacco: Never Assessed Comments Unknown Sex and Gender Information Value Date Recorded Sex Assigned at Not on file Legal Sex Female 6:53 PM CDT Gender Identity Not on file Sexual Orientation Not on file documented as of this encounter Miscellaneous Notes * Cerner Conversion Note - Maria Esther ProviderMD - 10/20/2019 2:00 AM CDT Entry Level Administrative Assistant Details Entered On: 10/20/2019 8:05 EDT Performed On: 10/20/2019 2:00 EDT by Toshia Tony RN Order Details Transport Mode Order Detail : Portable Isolation Precautions Order Detail : Standard Precautions Order Detail : 0 IV Order Detail : 1 Oxygen Order Detail : 0 Nurse Collect Order Detail : 0 Lift/Transfer : Minimal Central Line Order Detail : No Room Service : Appropriate Arterial Line : No Toshia Tony RN - 10/20/2019 8:04 EDT Electronically signed by Evaristo Loyola Conversion [employer] Logistics Coordinator Cerner at 10/28/2022 7:01 PM CDT documented in this encounter Plan of Treatment Upcoming Encounters Date Type Department Care Team (Late st Contact Info) Description 04/12/2025 7:30 AM EDT Hospital Encounter [facility] Operating Room 1 [place] [address] Bill Graham MD [address] [facility] [address] [place] [address] 04/12/2025 7:30 AM EDT Anesthesia Event [facility] Operating Room 1 [place] [address] Lucio Szymanski MD [address] [place] [address] 04/12/2025 7:30 AM EDT - 04/12/2025 8:55 AM EDT Surgery [facility] Operating Room 1 [place] [address] [place] [address] [place] [address] [place] [address] (LAPAROSCOPIC PERITONEAL DIALYSIS CATHETER INSERTION) Scheduled Procedures Name Priority Associated Diagnoses Date/Ti me LAPAROSCOPY, WITH PERITONEAL DIALYSIS CATHETER INSERTION Chronic kidney disease, stage V (HCC) 04/12/2025 7:30 AM EDT documented as of this encounter Visit Diagnoses Not on filedocumented in this encounter Care Teams Automotive Teacher Relationship Specialty Start Date End Date Félix Monroe, FRENCH BINDER [address] [facility] [address] [place] [address] PCP - General Nurse Practitioner 08/25/22 documented as of this encounter
--- OUTSIDE RECORDS SUMMARY | 2025-04-11 11:09 | XMS_ITS | Encounter Summary ---
Author Organization [email or web address] ([place], [place], [place], [place]) Address [address] [address] Care Team Providers Care Field Artillery Basic Name Role Phone Félix Monroe APRN Primary Care Provider [phone] Encounter Details Date Type Department Care Team (Late st Contact Info) Description 10/20/2019 Transcribed Document [facility] [place] [address] [place] [address] ProviderMaria Esther MD [address] [place] [address] Social History Tobacco Use Types Packs/Day Years Used Date Smoking Tobacco: Never Assessed Comments Unknown Sex and Gender Information Value Date Recorded Sex Assigned at Not on file Legal Sex Female 6:53 PM CDT Gender Identity Not on file Sexual Orientation Not on file documented as of this encounter Miscellaneous Notes * Cerner Conversion Note - Maria Esther ProviderMD - 10/20/2019 5:00 AM CDT Chart Check - Review Order Profile Entered On: 10/20/2019 8:05 EDT Performed On: 10/20/2019 5:00 EDT by Toshia Tony RN Chart Check Powerplans Initiated/Discontinued as Appropriate : Yes All Active Orders Reviewed : Yes Toshia Tony RN - 10/20/2019 8:05 EDT documented in this encounter Plan of Treatment Upcoming Encounters Date Type Department Care Team (Late st Contact Info) Description 04/12/2025 7:30 AM EDT Hospital Encounter [facility] Operating Room 1 [place] [address] Bill Graham MD [address] [facility] [address] [place] [address] 04/12/2025 7:30 AM EDT Anesthesia Event [facility] Operating Room 1 [place] [address] Lucio Szymanski MD [address] [place] [address] 04/12/2025 7:30 AM EDT - 04/12/2025 8:55 AM EDT Surgery [facility] Operating Room 1 [place] [address] Bill Graham MD [address] [facility] [address] [place] [address] (LAPAROSCOPIC PERITONEAL DIALYSIS CATHETER INSERTION) Scheduled Procedures Name Priority Associated Diagnoses Date/Ti me LAPAROSCOPY, WITH PERITONEAL DIALYSIS CATHETER INSERTION Chronic kidney disease, stage V (HCC) 04/12/2025 7:30 AM EDT documented as of this encounter Visit Diagnoses Not on filedocumented in this encounter Care Teams Field Artillery Basic Relationship Specialty Start Date End Date Félix Monroe, CAP MACHINE OPERATOR [address] [facility] [address] [place] [address] PCP - General Nurse Practitioner 08/25/22 documented as of this encounter
--- OUTSIDE RECORDS SUMMARY | 2025-04-11 11:09 | XMS_ITS | Encounter Summary ---
Author Organization [employer] ([place], [place], [place], [place]) Address [address] [address] Care Team Providers Care Event Representative Name Role Phone Monroe Félix Francisco RODRIGUEZ Primary Care Provider [phone] Encounter Details Date Type Department Care Team (Late st Contact Info) Description 10/19/2019 Transcribed Document [facility] [place] [address] [place] [address] ProviderMaria Esther MD [address] [place], [place] [address] Social History Tobacco Use Types Packs/Day Years Used Date Smoking Tobacco: Never Assessed Comments Unknown Sex and Gender Information Value Date Recorded Sex Assigned at Not on file Legal Sex Female 6:53 PM CDT Gender Identity Not on file Sexual Orientation Not on file documented as of this encounter Miscellaneous Notes * Cerner Conversion Note - Maria Esther Reyes MD - 10/19/2019 7:51 AM CDT Patient: CORRIE SMITH Age: 49 years Sex: Female : 1970 Associated Diagnoses: None Author: MISBAH YODER MD-ONC Attachments: None Subjective Chief complaint Chief complaint No new issues. CT out. Breathing stable. Anxious to get home Health Status Allergies Allergies (1) Active Reaction codeine Welts Current medications Medications (32) Active Scheduled: (14) #NaCl 0.9% [...] IntraVENous, Q6H Objective General Alert and oriented No acute distress Eye Pupils are equal, round and reactive to light HENT Normocephalic Neck Supple Respiratory Lungs are clear to auscultation Cardiovascular Normal rate Regular rhythm Gastrointestinal Soft Non-tender Spme left upper quadrant post op pain Impression and Plan Assessment and Plan Diagnosis Anemia-hemolysis, CKD. Mitral valve replacemnt. Course Improving Orders Continue procrit as outpatient. (not to steo on anyone's toes) but we could give weekly procrit and do INR at our office if cardiology doesn't mind instead of going to two different locations each week. . documented in this encounter Plan of Treatment Upcoming Encounters Date Type Department Care Team (Late st Contact Info) Description 04/12/2025 7:30 AM EDT Hospital Encounter [facility] Operating Room 1 [place] [address] Bill Graham MD [address] [place] [address] [address] [place] [id number] 04/12/2025 7:30 AM EDT Anesthesia Event [facility] Operating Room 1 [place] [address] Lucio Szymanski MD [address] [place] [address] 04/12/2025 7:30 AM EDT - 04/12/2025 8:[address] [facility] Operating Room 1 [place] [address] [place] [address] [place] [address] [address] [place] [address] (LAPAROSCOPIC PERITONEAL DIALYSIS CATHETER INSERTION) Scheduled Procedures Name Priority Associated Diagnoses Date/Ti me LAPAROSCOPY, WITH PERITONEAL DIALYSIS CATHETER INSERTION Chronic kidney disease, stage V (HCC) 04/12/2025 7:30 AM EDT documented as of this encounter Visit Diagnoses Not on filedocumented in this encounter Care Teams Event Representative Relationship Specialty Start Date End Date Félix Monroe, COTTON BALER [address] [place] [address] PCP - General Nurse Practitioner 08/25/22 documented as of this encounter
--- OUTSIDE RECORDS SUMMARY | 2025-04-11 11:09 | XMS_ITS | Encounter Summary ---
Author Organization [employer] ([place], [place], [place], [place]) Address [address] [address] Care Team Providers Care Infection Control Specialist Name Role Phone Félix Monroe APRN Primary Care Provider [phone] Encounter Details Date Type Department Care Team (Late st Contact Info) Description 10/09/2020 Transcribed Document [facility] [place] [address] [place] [address] ProviderMaria Esther MD [address] [place], [place] [phone] Social History Tobacco Use Types Packs/Day Years Used Date Smoking Tobacco: Never Assessed Comments Unknown Sex and Gender Information Value Date Recorded Sex Assigned at Not on file Legal Sex Female 6:53 PM CDT Gender Identity Not on file Sexual Orientation Not on file documented as of this encounter Miscellaneous Notes * Cerner Conversion Note - Historical ProviderMD - 10/09/2020 5:00 PM CDT Chart Check - Review Order Profile Entered On: 10/09/2020 15:39 EDT Performed On: 10/09/2020 17:00 EDT by Ino Bravo, Unit Tender-Student Nurse Chart Check Powerplans Initiated/Discontinued as Appropriate : Not applicable All Active Orders Reviewed : Yes Ino Barvo, Unit Tender-Student Nurse - 10/09/2020 15:39 EDT documented in this encounter Plan of Treatment Upcoming Encounters Date Type Department Care Team (Late st Contact Info) Description 04/12/2025 7:30 AM EDT Hospital Encounter [facility] Operating Room 1 [place] [address] Bill Graham MD [address] [facility] [address] [place] [address] 04/12/2025 7:30 AM EDT Anesthesia Event [facility] Operating Room 1 [place] [address] Lucio Szymanski MD [address] [place] [address] 04/12/2025 7:30 AM EDT - 04/12/2025 8:55 AM EDT Surgery [facility] Operating Room 1 [place] [address] [place] [address] [place] [address] [address] [place] [address] (LAPAROSCOPIC PERITONEAL DIALYSIS CATHETER INSERTION) Scheduled Procedures Name Priority Associated Diagnoses Date/Ti me LAPAROSCOPY, WITH PERITONEAL DIALYSIS CATHETER INSERTION Chronic kidney disease, stage V (HCC) 04/12/2025 7:30 AM EDT documented as of this encounter Visit Diagnoses Not on filedocumented in this encounter Care Teams Infection Control Specialist Relationship Specialty Start Date End Date Félix Monroe, DEALMAKER [address] [facility] [address] [place] [address] PCP - General Nurse Practitioner 08/25/22 documented as of this encounter
--- OUTSIDE RECORDS SUMMARY | 2025-04-11 11:09 | XMS_ITS | Encounter Summary ---
Author Organization [employer] ([place], [place], [place], [place]) Address [address] [place] [address] Care Team Providers Care French Teacher Name Role Phone Félix Monroe APRN Primary Care Provider Encounter Details Date Type Department Care Team (Late st Contact Info) Description 10/20/2019 Transcribed Document [facility] [place] [facility] [place] [address] ProviderMaria Esther MD [address] [place] [address] Social History Tobacco Use Types Packs/Day Years Used Date Smoking Tobacco: Never Assessed Comments Unknown Sex and Gender Information Value Date Recorded Sex Assigned at Not on file Legal Sex Female 6:53 PM CDT Gender Identity Not on file Sexual Orientation Not on file documented as of this encounter Miscellaneous Notes * Cerner Conversion Note - Maria Esther Reyes MD - 10/20/2019 1:25 PM CDT Patient: CORRIE SMITH Age: 49 years Sex: Female : 1970 Associated Diagnoses: None Author: GILES BLAS MD-INT DATE OF SERVICE [ DOS ]: 10-20-2019 Basic Information SUBJECTIVE: Patient is seen and [...] tab 25 mg 1 Tab, Oral, BID nicotine 21 [...] initial episode of care / SNOMED CT 0788184653 / Confirmed At risk for sleep apnea / IMO 06610982 / Confirmed CHF, acute on chronic / SNOMED CT 94987099 / Confirmed Class 3 Systolic GERD - Gastro-esophageal reflux disease / SNOMED CT 9005378661 / Confirmed H/O: TIA / SNOMED CT 605180043 / Confirmed History of laparoscopic adjustable gastric banding / SNOMED CT 1466179602 / Confirmed History of obstructive sleep apnea / IMO 73634902 / Confirmed HTN - Hypertension / SNOMED CT 0916781701 / Confirmed Mitral regurgitation / SNOMED CT 46918676 / Confirmed Prolonged QT interval / SNOMED CT 269201850 / Confirmed 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 632554911 / Confirmed Pulmonary edema / SNOMED CT 80139456 / Confirmed Restless legs syndrome / SNOMED CT 80892658 / Confirmed RF - Renal failure, Stage 4 / SNOMED CT 6487533447 / Confirmed Sleep apnea-before weight loss surgery / SNOMED CT 712005296 / Confirmed, Active Problems (16) At risk [...] Last Charted Minimum Maximum Temp 97.9 (OCT 19:06) 97.9 (OCT 19:) 98.1 (OCT 18 18:02) Apical HR 80 (OCT 19 08:35) 69 (OCT 18 21:13) 84 (OCT 18 15:56) Mon HR 69 (OCT 19:06) 69 (OCT 18 20:54) 92 (OCT 18 18:02) Resp Rate 18 (OCT 19 05:26) 16 (OCT 18 18:02) 18 (OCT 19 02:12) SBP 122 (OCT 19 09:06) 94 (OCT 19 05:26) H 142 (OCT 19 02:12) DBP 83 (OCT 19 09:06) 67 (OCT 19 05:26) H 95 (OCT 19 02:12) MAP 94 (OCT 19 09:06) 75 (OCT 19 05:26) 110 (OCT 19 02:12) SpO2 L 92 (OCT 19 11:57) L 87 (OCT 19 05:26) 94 (OCT [...] tenderness, No swelling, No deformity. Integumentary: Warm, Amorita, Moist, No rash. Neurologic: Alert, Oriented, Normal [...] L 8.2 (OCT 17) L 8.0 (OCT 07) HCT L 27.3 (OCT 19) L 25.2 (OCT 18) L 25.0 (OCT 17) L 25.1 (OCT 16) Plt 163 (OCT 19) L 141 (OCT 09) L 155 (OCT 08) L 116 (OCT 07) Na L 133 (OCT 10) L 132 (OCT 09) L 133 (OCT 08) 138 (OCT 07) K 3.7 (OCT 19) 3.7 (OCT 18) 4.1 (OCT 17) 4.4 (OCT 07) Cl 102 (OCT 10) 102 (OCT 09) 102 (OCT 08) 107 (OCT 07) CO2 22 (OCT 10) 22 (OCT 09) L 19 (OCT 08) 21 (OCT 07) BUN H 41 (OCT 10) H 39 (OCT 09) H 36 (OCT 08) H 31 (APR 07) Cr H 3.30 (OCT 19) H 3.70 (OCT 18) H 3.90 (OCT 17) H 3.40 (OCT 16) Glu R 102 [...] 11) H 0.091 (OCT 10) , OCT 19 04:31 L 133 102 H 41 / 102 3.7 22 H 3.30 \ OCT 19 04:31 \ L 8.5 / H 14.2 163 / L 27.3 \ , Radiology Results (Last 48 hours) [id number] -- 10/11/2019 15:38 CR Chest 1 Vw [...] Arciniega PA-C, R.T. (N), C N M T.I have personally viewed, interpreted and dictated the examination. Ihcornelius read and agree with the above final transcribed report. . Impression and Plan S/P Mitral Valve replacement on 10-16-2019 Acute Postoperative hypoxic respiratory Failure S/P Intubation on 10-16-2019 extubated 1. Acute blood loss anemia: Suspect hemolysis, [...] on Procrit injections for anemia Monitor INR chest tube has been removed Started on Coumadin for Mechanical valve Monitor Anemia Monitor Renal failure Anticipates discharge home soon per cardiothoracic surgery TIME SPENT: 20 minutes documented in this encounter Plan of Treatment Upcoming Encounters Date Type Department Care Team (Late st Contact Info) Description 04/12/2025 7:30 AM EDT Hospital Encounter [facility] Operating Room 1 [place] [address] [place] [address] [place] [address] [address] [place] [address] 04/12/2025 7:30 AM EDT Anesthesia Event [facility] Operating Room 1 [place] [address] Lucio Szymanski MD [address] [place] [address] 04/12/2025 7:30 AM EDT - 04/12/2025 8:55 AM EDT Surgery [facility] Operating Room 1 [place] [address] Bill Graham MD [address] [place] [address] (LAPAROSCOPIC PERITONEAL DIALYSIS CATHETER INSERTION) Scheduled Procedures Name Priority Associated Diagnoses Date/Ti me LAPAROSCOPY, WITH PERITONEAL DIALYSIS CATHETER INSERTION Chronic kidney disease, stage V (HCC) 04/12/2025 7:30 AM EDT documented as of this encounter Visit Diagnoses Not on filedocumented in this encounter Care Teams French Teacher Relationship Specialty Start Date End Date Félix Monroe, PROCESS TANK TENDER [address] [facility] [address] [place] [address] PCP - General Nurse Practitioner 08/25/22 documented as of this encounter
--- OUTSIDE RECORDS SUMMARY | 2025-04-11 11:09 | XMS_ITS | Encounter Summary ---
Author Organization [employer] ([place], [place], [place], [place]) Address [address] [place] [address] Care Team Providers Care Yarn Texture Machine Operator Name Role Phone Félix Monroe APRN Primary Care Provider [phone] Encounter Details Date Type Department Care Team (Late st Contact Info) Description 10/08/2020 Transcribed Document [facility] [facility] [place] [address] [place] [address] ProviderMaria Esther MD [address] [place], [place] [id number] Social History Tobacco Use Types Packs/Day Years Used Date Smoking Tobacco: Never Assessed Comments Unknown Sex and Gender Information Value Date Recorded Sex Assigned at Not on file Legal Sex Female 6:53 PM CDT Gender Identity Not on file Sexual Orientation Not on file documented as of this encounter Miscellaneous Notes * Cerner Conversion Note - Historical ProviderMD - 10/08/2020 2:00 AM CDT Radarman Details Entered On: 10/08/2020 3:44 EDT Performed On: 10/08/2020 2:00 EDT by Deya Chapin RN Order Details Transport Mode Order Detail : Wheelchair Isolation Precautions Order Detail : Standard Precautions Order Detail : 0 IV Order Detail : 1 Oxygen Order Detail : 1 Nurse Collect Order Detail : 0 Lift/Transfer : Independent Central Line Order Detail : No Room Service : Appropriate Arterial Line : No Patient Needs Meds Crushed/Liquid : No Deya Chapin RN - 10/08/2020 3:44 EDT Electronically signed by Nir [facility] Conversion Conventions Reservationist Cerner at 10/28/2022 7:02 PM CDT documented in this encounter Plan of Treatment Upcoming Encounters Date Type Department Care Team (Late st Contact Info) Description 04/12/2025 7:30 AM EDT Hospital Encounter [facility] Operating Room 1 [place] [address] [place] [address] [place] [address] [address] [place] [address] 04/12/2025 7:30 AM EDT Anesthesia Event [facility] Operating Room 1 [place] [address] Lucio Szymanski MD [address] [place] [address] 04/12/2025 7:30 AM EDT - 04/12/2025 8:55 AM EDT Surgery [facility] Operating Room 1 [place] [address] [place] [address] [place] [address] [address] [place] [address] (LAPAROSCOPIC PERITONEAL DIALYSIS CATHETER INSERTION) Scheduled Procedures Name Priority Associated Diagnoses Date/Ti me LAPAROSCOPY, WITH PERITONEAL DIALYSIS CATHETER INSERTION Chronic kidney disease, stage V (HCC) 04/12/2025 7:30 AM EDT documented as of this encounter Visit Diagnoses Not on filedocumented in this encounter Care Teams Yarn Texture Machine Operator Relationship Specialty Start Date End Date Félix Monroe, PLATFORM ENGINEER [address] [facility] [address] [place] [address] PCP - General Nurse Practitioner 08/25/22 documented as of this encounter
--- OUTSIDE RECORDS SUMMARY | 2025-04-11 11:09 | XMS_ITS | Encounter Summary ---
Author Organization [employer] ([place], [place], [place], [place]) Address [address] [address] Care Team Providers Care Epic Manager Name Role Phone Fer Félix Singh MICHAEL Primary Care Provider Encounter Details Date Type Department Care Team (Late st Contact Info) Description 10/21/2019 Transcribed Document [facility] [place] Family Medicine [address] [place] [address] ProviderMaria Esther MD [address] [place], [place] [address] Social History Tobacco Use Types Packs/Day Years Used Date Smoking Tobacco: Never Assessed Comments Unknown Sex and Gender Information Value Date Recorded Sex Assigned at Not on file Legal Sex Female 6:53 PM CDT Gender Identity Not on file Sexual Orientation Not on file documented as of this encounter Miscellaneous Notes * Cerner Conversion Note - Historical ProviderMD - 10/21/2019 2:09 AM CDT Event Note Entered On: 10/21/2019 2:11 EDT Performed On: 10/21/2019 2:09 EDT by FRANK FRAGA RN Event Note Event Date/Time : 10/21/2019 2:09 EDT Event Location : Assigned room Event Details : Other: telemetry lead changes FRANK FRAGA RN - 10/21/2019 2:09 EDT Description of Event : Dr. Cooney informed that there are some changes on telemetry, ST elevation in some of the leads. made aware that patient with pain at site of incision but no other chest pain complaints. informed that this nurse placed patient on 2L O2 due to difficulty taking deep breaths with incisonal pain. MD gave orders for EKG. Verified. No other orders received . Will continue to monitor. Dr. Cooney presented to the unit and reviewed EKG. made aware that patient with occasional PVCs. MD assessed patient. At that time, Dr. Valdez informed, see event note. FRANK FRAGA RN - 10/21/2019 3:17 EDT Electronically signed by [facility] Conversion Production Technologist Cerner at 10/28/2022 7:15 PM CDT documented in this encounter Plan of Treatment Upcoming Encounters Date Type Department Care Team (Late st Contact Info) Description 04/12/2025 7:30 AM EDT Hospital Encounter [facility] Operating Room 1 [place] [address] Bill Graham MD [address] [place] [address] [address] 04/12/2025 7:30 AM EDT Anesthesia Event [facility] Operating Room 1 [place] [address] Lucio Szymanski MD [address] [place] [address] 04/12/2025 7:30 AM EDT - 04/12/2025 8:[address] [facility] Operating Room 1 [place] [address] Bill Graham MD [address] [place] [address] [address] [place] [address] (LAPAROSCOPIC PERITONEAL DIALYSIS CATHETER INSERTION) Scheduled Procedures Name Priority Associated Diagnoses Date/Ti me LAPAROSCOPY, WITH PERITONEAL DIALYSIS CATHETER INSERTION Chronic kidney disease, stage V (HCC) 04/12/2025 7:30 AM EDT documented as of this encounter Visit Diagnoses Not on filedocumented in this encounter Care Teams Epic Manager Relationship Specialty Start Date End Date Félix Monroe, MICHAEL [address] [facility] [phone] PCP - General Nurse Practitioner 08/25/22 documented as of this encounter
--- OUTSIDE RECORDS SUMMARY | 2025-04-11 11:09 | XMS_ITS | Encounter Summary ---
Author Organization [employer] ([place], [place], [place], [place]) Address [address] [address] Care Team Providers Care Swat Team Member Name Role Phone Félix Monroe APRN Primary Care Provider [phone] Encounter Details Date Type Department Care Team (Late st Contact Info) Description 10/08/2020 Transcribed Document [facility] [place] [address] [place] [address] ProviderMaria Esther MD [address] [place] [address] Social History Tobacco Use Types Packs/Day Years Used Date Smoking Tobacco: Never Assessed Comments Unknown Sex and Gender Information Value Date Recorded Sex Assigned at Not on file Legal Sex Female 6:53 PM CDT Gender Identity Not on file Sexual Orientation Not on file documented as of this encounter Miscellaneous Notes * Cerner Conversion Note - Historical ProviderMD - 10/08/2020 5:00 AM CDT Chart Check - Review Order Profile Entered On: 10/08/2020 4:22 EDT Performed On: 10/08/2020 5:00 EDT by Deya Chapin RN Chart Check Powerplans Initiated/Discontinued as Appropriate : Yes All Active Orders Reviewed : Yes Deya Chapin RN - 10/08/2020 4:22 EDT Electronically signed by Nir [facility] Conversion Stock Replenisher Cerner at 10/28/2022 7:07 PM CDT documented in this encounter Plan of Treatment Upcoming Encounters Date Type Department Care Team (Late st Contact Info) Description 04/12/2025 7:30 AM EDT Hospital Encounter [facility] Operating Room 1 [place] [address] Bill Graham MD [address] [facility] [address] [place] [address] 04/12/2025 7:30 AM EDT Anesthesia Event [facility] Operating Room 1 [place] [address] Lucio Szymanski MD [address] [place] [address] 04/12/2025 7:30 AM EDT - 04/12/2025 8:55 AM EDT Surgery [facility] Operating Room 1 [place] [address] [place] [address] [place] [address] [place] [address] (LAPAROSCOPIC PERITONEAL DIALYSIS CATHETER INSERTION) Scheduled Procedures Name Priority Associated Diagnoses Date/Ti me LAPAROSCOPY, WITH PERITONEAL DIALYSIS CATHETER INSERTION Chronic kidney disease, stage V (HCC) 04/12/2025 7:30 AM EDT documented as of this encounter Visit Diagnoses Not on filedocumented in this encounter Care Teams Swat Team Member Relationship Specialty Start Date End Date Félix Monroe, TESTING TECH [address] [facility] [address] [place] [address] PCP - General Nurse Practitioner 08/25/22 documented as of this encounter
--- OUTSIDE RECORDS SUMMARY | 2025-04-11 11:09 | XMS_ITS | Encounter Summary ---
Author Organization [employer] ([place], [place], [place], [place]) Address [address] [address] Care Team Providers Care Biofuels Research Scientist Name Role Phone Félix Monroe APRN Primary Care Provider [phone] Encounter Details Date Type Department Care Team (Late st Contact Info) Description 10/07/2020 Transcribed Document [facility] [place] [address] ProviderMaria Esther MD [address] [place], [place] [phone] Social History Tobacco Use Types Packs/Day Years Used Date Smoking Tobacco: Never Assessed Comments Unknown Sex and Gender Information Value Date Recorded Sex Assigned at Not on file Legal Sex Female 6:53 PM CDT Gender Identity Not on file Sexual Orientation Not on file documented as of this encounter Miscellaneous Notes * Cerner Conversion Note - Maria Esther ProviderMD - 10/07/2020 1:03 PM CDT Patient: CORRIE SMITH Age: 50 years Sex: Female : 1970 Associated Diagnoses: None Author: YANE LION MD Basic Information Director Labor Standards: Chava Lockett MD PCP: Dr. Susu García MD Requesting MD: Dr. Estefania Martínez MD Chief Complaint CHF History of Present Illness 50 year old female with histoyr of VHD, s/p Mitral valve repair per Dr. Valdez 08/29/2019 and subsequent replacement with a ON-X mechanical valve prosthesis on 10/16/[address] Valdez, [facility] with LVEF-40%, HTN, HLD, CKD-IV, CHF, history of tobacco abuse, and GERD, who presents to [facility] today with complaints of worsening shortness of breath over the past two days becoming very short of breath today. She denies chest pain, N/V, diaphoresis, palpitations, and fever. She presented to her local ED in [place] and was found to have ProBNP of 43,109, Troponin of 0.129---->0.133, INR is low at 1.2, SCr 2.5, CRP 9.2, and LDH 225. She was treated with IV BUMEX prior to transfer and is diuresing well. She says that she feels much better. She is lying nearly flat in bed at time of this exam. She denies missing any doses of her Warfarin. She has her INR checks with her PCP. Cardiology consult has been requested for CHF management. Review of Systems Constitutional: Negative except as documented in history of present illness. Eye: Negative. Ear/Nose/Mouth/Throat: Negative. Respiratory: Negative except as documented in history of present illness. Cardiovascular: Negative except as documented in history of present illness. Gastrointestinal: Negative except as documented in history of present illness. Genitourinary: Negative except as documented in history of present illness. Hematology/Lymphatics: Negative. Endocrine: Negative. Immunologic: Negative. Musculoskeletal: Negative. Integumentary: Negative. Neurologic: Alert and oriented X4. Psychiatric: Negative. All other systems are negative Health Status Allergies (1) Active Reaction codeine Nausea Home Medications (8) Active aspirin 81 mg [...] 5 mg oral tablet , Oral, Daily Current medications: Medications (24) Active Scheduled: (7) bumetanide 1 mg/4 mL inj 1 mg 4 mL, IV Push, BID carvedilol 12.5 mg tab 12.5 mg 1 Tab, Oral, BID docusate sodium 100 mg cap 100 mg 1 Cap, Oral, BID hydrALAZINE 25 mg tab 25 mg 1 Tab, Oral, BID NIFEdipine ER 60 mg tab 60 mg 1 Tab, Oral, Daily pantoprazole EC 40 mg tab 40 mg 1 Tab, Oral, Daily rOPINIRole 1 mg tab 1 mg 1 Tab, Oral, At Bedtime Continuous: (0) PRN: (17) acetaminophen 325 mg [...] Past Medical History: Active HTN - Hypertension ([id number]), Per problem list above Family History: Mother and Brother with Valvular Heart Disease Procedure history: Mitral Valve replacment on 10/16/2019 at 49 Years. Comments: 10/07/2020 13:03 DOUGLAS CHIN, REAL ESTATE CONSULTANT: 1. Re-entry median sternotomy. 2. Explantation of 28 mm CG annuloplasty band. 3. Placement, 35/25 On-X mechanical mitral prosthesis. a. Salvage and reimplantation of all anterior and posterior chordae. 4. Intraoperative transesophageal echocardiography. 5. Placement of left common femoral arterial line (Seldinger technique). Tricuspid Valve Repair on 08/29/2019 at 49 Years. Comments: 10/07/2020 12:58 DOUGLAS CHIN, CROW tricuspid valve repair 28 mm CG annuloplasty band lap band in 2009 at 38 Years. bladder tack/sling. hysterectomy. ACL Repair right and left knees. Social History Ongoing tobacco abuse, history of illicit drug abuse, denies ETOH abuse.. Physical Examination VS/Measurements Vitals Signs (last 24 hrs) Last Charted Minimum Maximum Temp 98.8 (OCT 07 11:20) 98.8 (OCT 07 11:20) 98.8 (OCT 07 11:20) Mon HR 98 (OCT 07 11:20) 98 (OCT 07 11:20) 98 (OCT 07 11:20) Resp Rate H 26 (OCT 07 11:20) H 26 (OCT 07 11:20) H 26 (OCT 07 11:20) SBP H 145 (OCT 07 11:20) H 145 (OCT 07 11:20) H 145 (OCT 07 11:20) DBP H 95 (OCT 07 11:20) H 95 (OCT 07 11:20) H 95 (OCT 07 11:20) SpO2 97 (OCT 07 12:00) 97 (OCT 07 12:00) 99 (OCT 07 11:20) General: Alert and oriented, No acute distress. Eye: Pupils are equal, round and reactive to light, Extraocular movements are intact, Normal conjunctiva, Vision unchanged. HENT: Normocephalic, Oral mucosa is moist. Neck: Supple, Non-tender, No jugular venous distention. Respiratory: Lungs are clear to auscultation, Respirations are non-labored, Breath sounds are equal, Symmetrical chest wall expansion. Cardiovascular: Normal rate, Regular rhythm, No murmur, No gallop, Good pulses equal in all extremities, Normal peripheral perfusion, No edema, Mechanical mitral valve click.. Gastrointestinal: Soft, Non-tender, Non-distended, Normal bowel sounds. Genitourinary: Support: Urinary catheter ( Indwelling, Drainage ( Yellow ) ). Musculoskeletal: Normal range of motion, Normal strength, No deformity. Integumentary: Warm, Dry, [place], No rash. Neurologic: Alert, Oriented, No focal deficits. Psychiatric: Cooperative, Appropriate mood & affect. Review / Management No qualifying data available Cardiac Markers (Current Encounter/Past 24 Hours) No Cardiac Marker Results Found (Past 24 Hours) Blood Gases (Current Encounter/Past 24 Hours) No Blood Gas Results Found (Past 24 Hours) No Radiology Results Found Results review: No qualifying data available . Impression and Plan IMPRESSION: Acute on Chronic Systolic CHF LVEF-40% per ECHO 10/21/2019 / Repeat ECHO Pending ProBNP 43,109 Troponin 0.129-----> 0.133 VHD History of Mitral Valve Repair 08/29/2019 History of Mitral Valve Replacement with ON-X Mechanical Prosthesis on 10/16/2019 Chronic Warfarin Therapy for Skip Load Driver Mitral Valve INR Goal of 2.5-3.5 / Current INR subtherapeutic at 1.2 HTN COPD Tobacco Abuse Disorder / Ongoing RENETTA CKD Stage IV SCr 2.5 on admission to OSH PLAN: Agree with diuresis. Will consult pharmacy for Warfarin dosing and add renally dosed therapeutic Lovenox to bridge until INR is > 1.8. Will review ECHO. Further recommendations will follow pending above results. Electronically signed by Nir, Evaristo Conversion Stringer Up Soldering Machine Cerner at 10/28/2022 7:22 PM CDT documented in this encounter Plan of Treatment Upcoming Encounters Date Type Department Care Team (Late st Contact Info) Description 04/12/2025 7:30 AM EDT Hospital Encounter [facility] Operating Room 1 [place] [address] [place] [address] [place] [address] 04/12/2025 7:30 AM EDT Anesthesia Event [facility] Operating Room 1 [place] [address] Lucio Szymanski MD [address] [place] [address] 04/12/2025 7:30 AM EDT - 04/12/2025 8:55 AM EDT Surgery [facility] Operating Room 1 [place] [address] Bill Graham MD [address] [place] [address] (LAPAROSCOPIC PERITONEAL DIALYSIS CATHETER INSERTION) Scheduled Procedures Name Priority Associated Diagnoses Date/Ti me LAPAROSCOPY, WITH PERITONEAL DIALYSIS CATHETER INSERTION Chronic kidney disease, stage V (HCC) 04/12/2025 7:30 AM EDT documented as of this encounter Visit Diagnoses Not on filedocumented in this encounter Care Teams Biofuels Research Scientist Relationship Specialty Start Date End Date Félix Monroe, ROCK MASON [address] [facility] [address] [place] [address] PCP - General Nurse Practitioner 08/25/22 documented as of this encounter
--- OUTSIDE RECORDS SUMMARY | 2025-04-11 11:09 | XMS_ITS | Encounter Summary ---
Author Organization [employer] ([place], [place], [place], [place]) Address [address] [address] Care Team Providers Care Director Of Corporate Responsibility Name Role Phone Félix Monroe APRN Primary Care Provider [phone] Encounter Details Date Type Department Care Team (Late st Contact Info) Description 10/19/2019 Transcribed Document [facility] [place] Family Medicine [address] [place] [address] ProviderMaria Esther MD [address] [place] [address] Social History Tobacco Use Types Packs/Day Years Used Date Smoking Tobacco: Never Assessed Comments Unknown Sex and Gender Information Value Date Recorded Sex Assigned at Not on file Legal Sex Female 6:53 PM CDT Gender Identity Not on file Sexual Orientation Not on file documented as of this encounter Miscellaneous Notes * Cerner Conversion Note - Maria Esther ProviderMD - 10/19/2019 5:00 PM CDT Chart Check - Review Order Profile Entered On: 10/19/2019 17:22 EDT Performed On: 10/19/2019 17:00 EDT by Zaira García RN Chart Check Powerplans Initiated/Discontinued as Appropriate : Yes All Active Orders Reviewed : Yes Zaira García RN - 10/19/2019 17:22 EDT documented in this encounter Plan of Treatment Upcoming Encounters Date Type Department Care Team (Late st Contact Info) Description 04/12/2025 7:30 AM EDT Hospital Encounter [facility] Operating Room 1 [place] [address] Bill Graham MD [address] [facility] [address] [place] [address] 04/12/2025 7:30 AM EDT Anesthesia Event [facility] Operating Room 1 [place] [address] Lucio Szymanski MD [address] [place] [address] 04/12/2025 7:30 AM EDT - 04/12/2025 8:55 AM EDT Surgery [facility] Operating Room 1 [place] [address] Bill Graham MD [address] [facility] [address] [place] [address] (LAPAROSCOPIC PERITONEAL DIALYSIS CATHETER INSERTION) Scheduled Procedures Name Priority Associated Diagnoses Date/Ti me LAPAROSCOPY, WITH PERITONEAL DIALYSIS CATHETER INSERTION Chronic kidney disease, stage V (HCC) 04/12/2025 7:30 AM EDT documented as of this encounter Visit Diagnoses Not on filedocumented in this encounter Care Teams Director Of Corporate Responsibility Relationship Specialty Start Date End Date Félix Monroe, POLICE AIDE [address] [facility] [address] [place] [address] PCP - General Nurse Practitioner 08/25/22 documented as of this encounter
--- OUTSIDE RECORDS SUMMARY | 2025-04-11 11:09 | XMS_ITS | Encounter Summary ---
Author Organization [employer] ([place], [place], [place], [place]) Address [address] [address] Care Team Providers Care Deadener Name Role Phone Monroe Félix Francisco RODRIGUEZ Primary Care Provider [phone] Encounter Details Date Type Department Care Team (Late st Contact Info) Description 10/08/2020 Transcribed Document [facility] Family Medicine [facility] [address] ProviderMaria Esther MD [address] [place], [place] [address] Social History Tobacco Use Types Packs/Day Years Used Date Smoking Tobacco: Never Assessed Comments Unknown Sex and Gender Information Value Date Recorded Sex Assigned at Not on file Legal Sex Female 6:53 PM CDT Gender Identity Not on file Sexual Orientation Not on file documented as of this encounter Miscellaneous Notes * Cerner Conversion Note - Maria Esther Reyes MD - 10/08/2020 12:14 PM CDT Patient: CORRIE SMITH Age: 50 years Sex: Female : 1970 Associated Diagnoses: None Author: Mak Gottlieb, Non Emp Student Pharmacist Ms. Garcia is a 50 yo female admitted with shortness of air. Patient had mitral valve repair and subsequently went on to have a mitral valve replacement in 10/2019, goal INR per cards is 2.5-3.5. -10/08: Spoke with patient's nurse who confirmed patient's home dose of warfarin 5 mg daily. Of note, nurse reported that she spoke with patient's who stated that patient is non-adherent with her warfarin. Patient's nurse stated that she explained the importance of medication adherence especially with warfarin in the setting of mechanical mitral valve replacements to reduce stroke risk from thrombosis Estimated weight ~ 60kg Labs (Last four charted values) WBC 5.2 (OCT 08) Hgb L 10.7 (OCT 08) Hct L 33.7 (OCT 08) Plt L 153 (OCT 08) Na 139 (OCT 08) K L 3.3 (OCT 08) CO2 29 (OCT 08) Cl 104 (OCT 08) Cr H 2.40 (OCT 08) BUN H 29 (OCT 08) Glucose Random H 110 (OCT 08) Mg 2.0 (OCT 08) Ca 8.6 (OCT 08) PT H 13.7 (OCT 08) H 12.6 (OCT 07) INR H 1.3 (OCT 08) 1.2 (OCT 07) Creatinine Clearance (Current Encounter/Past 24 Hours) Creatinine Level 2.40 mg/dL MI 10/08/2020 04:13 Bun/Creatinine 12.1 10/08/2020 04:13 Estimated Creatinine Clearance 25.32 mL/Min 10/08/2020 04:13 Coagulation Results (Current Encounter/Past 24 Hours) PT 13.7 Second(s) MI 10/08/2020 03:58 INR 1.3 MI 10/08/2020 03:58 Warfarin Consult Medication: warfarin Indication: OnX mitral valve replacement Goal INR (per cards): 2.5-3.5 -INR on admission was 1.2 Home Dose: 5 mg daily Bridge therapy: Lovenox 1mg/kg daily Drug Interactions: lovenox and ASA - can increase risk of bleeding Date 10/07 10/08 INR 1.2 1.3 Dose 5mg 5mg Plan: 1. INR is subtherapeutic at 1.3, increased from 1.2 yesterday. Given patient's history of non-adherence, patient's subtherapeutic INR is expected. Continue current dose of warfarin 5 mg daily. Continue Lovenox 60 mg (~1mg/kg) SQ daily as bridge therapy until INR > 1.8 (per cardiology). 2. Daily PT/INR Will follow, Mak Gottlieb, JackD Candidate [facility] Electronically signed by Nir, [facility] Conversion Supervisor Lens Generating Cerner at 10/28/2022 7:07 PM CDT documented in this encounter Plan of Treatment Upcoming Encounters Date Type Department Care Team (Late st Contact Info) Description 04/12/2025 7:30 AM EDT Hospital Encounter [facility] Operating Room 1 [place] [address] Bill Graham MD [address] [facility] [address] [place] [address] 04/12/2025 7:30 AM EDT Anesthesia Event [facility] Operating Room 1 [place] [address] Lucio Szymanski MD [address] [place] [address] 04/12/2025 7:30 AM EDT - 04/12/2025 8:55 AM EDT Surgery [facility] Operating Room 1 [place] [address] [place] [address] [place] [address] [address] [place] [address] (LAPAROSCOPIC PERITONEAL DIALYSIS CATHETER INSERTION) Scheduled Procedures Name Priority Associated Diagnoses Date/Ti me LAPAROSCOPY, WITH PERITONEAL DIALYSIS CATHETER INSERTION Chronic kidney disease, stage V (HCC) 04/12/2025 7:30 AM EDT documented as of this encounter Visit Diagnoses Not on filedocumented in this encounter Care Teams Deadener Relationship Specialty Start Date End Date Félix Monroe, TRAVEL SERVICE CONSULTANT [address] [facility] [address] [place] [address] PCP - General Nurse Practitioner 08/25/22 documented as of this encounter
--- OUTSIDE RECORDS SUMMARY | 2025-04-11 11:09 | XMS_ITS | Encounter Summary ---
Author Organization [employer] ([place], [place], [place], [place]) Address [address] [address] Care Team Providers Care Farm Worker Name Role Phone Félix Monroe APRN Primary Care Provider [phone] Encounter Details Date Type Department Care Team (Late st Contact Info) Description 10/21/2019 Transcribed Document [facility] Family Medicine [address] [place] [address] ProviderMaria Esther MD [address] [place] [address] Social History Tobacco Use Types Packs/Day Years Used Date Smoking Tobacco: Never Assessed Comments Unknown Sex and Gender Information Value Date Recorded Sex Assigned at Not on file Legal Sex Female 6:53 PM CDT Gender Identity Not on file Sexual Orientation Not on file documented as of this encounter Miscellaneous Notes * Cerner Conversion Note - Historical ProviderMD - 10/21/2019 5:00 PM CDT Chart Check - Review Order Profile Entered On: 10/21/2019 17:58 EDT Performed On: 10/21/2019 17:00 EDT by DAYSI PACHECO, RN Chart Check All Active Orders Reviewed : Yes DAYSI PACHECO, RN - 10/21/2019 17:58 EDT documented in this encounter Plan of Treatment Upcoming Encounters Date Type Department Care Team (Late st Contact Info) Description 04/12/2025 7:30 AM EDT Hospital Encounter [facility] Operating Room 1 [place] [address] Bill Graham MD [address] [facility] [address] [place] [address] 04/12/2025 7:30 AM EDT Anesthesia Event [facility] Operating Room 1 [place] [address] Lucio Szymanski MD [address] [place] [address] 04/12/2025 7:30 AM EDT - 04/12/2025 8:55 AM EDT Surgery [facility] Operating Room 1 [place] [address] Bill Graham MD [address] [facility] [address] [place] [address] (LAPAROSCOPIC PERITONEAL DIALYSIS CATHETER INSERTION) Scheduled Procedures Name Priority Associated Diagnoses Date/Ti me LAPAROSCOPY, WITH PERITONEAL DIALYSIS CATHETER INSERTION Chronic kidney disease, stage V (HCC) 04/12/2025 7:30 AM EDT documented as of this encounter Visit Diagnoses Not on filedocumented in this encounter Care Teams Farm Worker Relationship Specialty Start Date End Date Félix Monroe, ASSOCIATE FIELD SERVICE ENGINEER [address] [facility] [address] [place] [address] PCP - General Nurse Practitioner 08/25/22 documented as of this encounter
--- OUTSIDE RECORDS SUMMARY | 2025-04-11 11:09 | XMS_ITS | Encounter Summary ---
Author Organization [employer] ([place], [place], [place], [place]) Address [address] [address] Care Team Providers Care Sales Receptionist Name Role Phone Félix Monroe APRN Primary Care Provider [phone] Encounter Details Date Type Department Care Team (Late st Contact Info) Description 10/20/2019 Transcribed Document [facility] Family Medicine [address] [place] [address] ProviderMaria Esther MD [address] [place] [address] Social History Tobacco Use Types Packs/Day Years Used Date Smoking Tobacco: Never Assessed Comments Unknown Sex and Gender Information Value Date Recorded Sex Assigned at Not on file Legal Sex Female 6:53 PM CDT Gender Identity Not on file Sexual Orientation Not on file documented as of this encounter Miscellaneous Notes * Cerner Conversion Note - Historical ProviderMD - 10/20/2019 5:00 PM CDT Chart Check - Review Order Profile Entered On: 10/20/2019 17:05 EDT Performed On: 10/20/2019 17:00 EDT by DAYSI PACHECO, RN Chart Check All Active Orders Reviewed : Yes DAYSI PACHECO, RN - 10/20/2019 17:05 EDT documented in this encounter Plan of Treatment Upcoming Encounters Date Type Department Care Team (Late st Contact Info) Description 04/12/2025 7:30 AM EDT Hospital Encounter [facility] Operating Room 1 [place] [address] Bill Graham MD [address] [facility] [address] [place] [address] 04/12/2025 7:30 AM EDT Anesthesia Event [facility] Operating Room 1 [place] [address] Lucio Szymanski MD [address] [place] [address] 04/12/2025 7:30 AM EDT - 04/12/2025 8:55 AM EDT Surgery [facility] Operating Room 1 [place] [address] Bill Graham MD [address] [facility] [address] [place] [address] (LAPAROSCOPIC PERITONEAL DIALYSIS CATHETER INSERTION) Scheduled Procedures Name Priority Associated Diagnoses Date/Ti me LAPAROSCOPY, WITH PERITONEAL DIALYSIS CATHETER INSERTION Chronic kidney disease, stage V (HCC) 04/12/2025 7:30 AM EDT documented as of this encounter Visit Diagnoses Not on filedocumented in this encounter Care Teams Sales Receptionist Relationship Specialty Start Date End Date Félix Monroe, PBX INSTALLER [address] [facility] [address] [place] [address] PCP - General Nurse Practitioner 08/25/22 documented as of this encounter
--- OUTSIDE RECORDS SUMMARY | 2025-04-11 11:09 | XMS_ITS | Encounter Summary ---
Author Organization [email or web address] ([place], [place], [place], [place]) Address [address] [address] Care Team Providers Care Post Tensioning Ironworker Name Role Phone Fer Félix Singh MICHAEL Primary Care Provider [phone] Encounter Details Date Type Department Care Team (Late st Contact Info) Description 10/19/2019 Transcribed Document [facility] Family Medicine [address] [place] [address] ProviderMaria Esther MD [address] [place] [address] Social History Tobacco Use Types [...] - Maria Esther ProviderMD - 10/19/2019 5:00 AM CDT Chart Check - Review Order Profile Entered On: 10/19/2019 3:31 EDT Performed On: 10/19/2019 5:00 EDT by Lucy Duron, RN Chart Check All Active Orders Reviewed : Yes Lucy Duron RN - 10/19/2019 3:31 EDT documented in this encounter Plan of Treatment Upcoming Encounters Date Type Department Care Team (Late st Contact Info) Description 04/12/2025 7:30 AM EDT Hospital Encounter [facility] Operating Room 1 [place] [address] Bill Graham MD [address] [facility] [address] [place] [address] 04/12/2025 7:30 AM EDT Anesthesia Event [facility] Operating Room 1 [place] [address] Lucio Szymanski MD [address] [place] [address] 04/12/2025 7:30 AM EDT - 04/12/2025 8:55 AM EDT Surgery [facility] Operating Room 1 [place] [address] Bill Graham MD [address] [facility] [address] [place] [address] (LAPAROSCOPIC PERITONEAL DIALYSIS CATHETER INSERTION) Scheduled Procedures Name Priority Associated Diagnoses Date/Ti me LAPAROSCOPY, WITH PERITONEAL DIALYSIS CATHETER INSERTION Chronic kidney disease, stage V (HCC) 04/12/2025 7:30 AM EDT documented as of this encounter Visit Diagnoses Not on filedocumented in this encounter Care Teams Post Tensioning Ironworker Relationship Specialty Start Date End Date Félix Monroe, PROGRAM DIRECTOR/TRAFFIC DIRECTOR [address] [facility] [address] [place] [address] PCP - General Nurse Practitioner 08/25/22 documented as of this encounter
--- OUTSIDE RECORDS SUMMARY | 2025-04-11 11:09 | XMS_ITS | Encounter Summary ---
Author Organization [employer] ([place], [place], [place], [place]) Address [address] [address] Care Team Providers Care Sorting Livestock Worker Name Role Phone Félix Monroe APRN Primary Care Provider [phone] Encounter Details Date Type Department Care Team (Late st Contact Info) Description 10/21/2019 Transcribed Document [facility] [place] [address] ProviderMaria Esther MD [address] [place] [address] Social History Tobacco Use Types Packs/Day Years Used Date Smoking Tobacco: Never Assessed Comments Unknown Sex and Gender Information Value Date Recorded Sex Assigned at Not on file Legal Sex Female 6:53 PM CDT Gender Identity Not on file Sexual Orientation Not on file documented as of this encounter Miscellaneous Notes * Cerner Conversion Note - Maria Esther Reyes MD - 10/21/2019 9:54 AM CDT Patient: AWAIS SMITH Age: 49 [...] or dyspnea. Paced at 90. 10/20/19: POD#4 10/21/19: POD#5 Rolled over on side over night and developed incisional discomfort. Some concern of EKG findings. Echo ordered for today. Patient states she never had true chest pain, just incisional pain after rolling onto side, which has now resolved. She denies dyspnea. Ambulating well. Health Status Allergies: Allergic Reactions (Selected) Severity [...] 1 Tab, Oral, At Bedtime , Medications (30) Active Scheduled: (13) #NaCl 0.9% [...] (chronic obstructive pulmonary disease) / SNOMED CT 02313385 / Confirmed HTN - Hypertension / SNOMED CT 0772031356 / Confirmed Prolonged QT interval / SNOMED CT 604493017 / Confirmed CHF, acute on chronic / SNOMED CT 68106379 / Confirmed Class 3 Systolic Pulmonary edema / SNOMED CT 44166728 / Confirmed NSTEMI, initial episode of care / SNOMED CT 3601793193 / Confirmed Mitral regurgitation / SNOMED CT 95510116 / Confirmed RF - Renal failure, Stage 4 / SNOMED CT 4211926332 / Confirmed Sleep apnea-before weight loss surgery / SNOMED CT 536504741 / Confirmed GERD - Gastro-esophageal reflux disease / SNOMED CT 6048435485 / Confirmed Restless legs syndrome / SNOMED CT 24443474 / Confirmed H/O: TIA / SNOMED CT 391648638 / Confirmed History of obstructive sleep apnea / IMO 77768394 / Confirmed History of laparoscopic adjustable gastric banding / SNOMED CT 8692423588 / Confirmed At risk for sleep apnea / IMO 81231031 / Confirmed 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 868759525 / Confirmed, Active Problems (16) At risk [...] Last Charted Minimum Maximum Temp 97.8 (OCT 20 05:01) 97.8 (OCT 20 05:01) 98 (OCT 19 14:29) Apical HR 90 (OCT 20 08:26) 90 (OCT 20 08:26) 94 (OCT 19 20:49) Mon HR 87 (OCT 20 05:01) 85 (OCT 19 19:57) 94 (OCT 19 17:56) Resp Rate 16 (OCT 20 05:01) 16 (OCT 19 19:57) 20 (OCT 20:38) SBP 119 (OCT 20 05:) 114 (OCT 20:38) 140 (OCT 19 14:29) DBP 84 (OCT 20 05:01) 72 (OCT 20:38) H 94 (OCT 19 14:29) MAP 94 (OCT 20 05:) 88 (OCT 20:38) 115 (OCT 19 14:29) SpO2 96 (OCT 20 09:00) L 91 (OCT 20:38) 96 (OCT 19 14:29) General: Alert and oriented. Respiratory: Lungs are clear to auscultation. Cardiovascular: Normal rate, Regular rhythm. Gastrointestinal: Soft, Non-tender, Non-distended. sternal incision>> C D I Tolerates PO Voiding Last BM >> 4\8 Ambulates Results Review General results Interpretation: Radiology Results (Last 48 hours) [id number] -- 10/11/2019 15:38 CR Chest 1 Vw Portable (10/20/2019 06:25) [...] agree with the above final transcribed report. PATH:>> Impression and Plan VTE STATUS>>SCDS 10/13/19 RIA: S/p mitral ring repair. Tethering of the posterior mitral leaflet. Severe mitral regurgitation (4+) is present. Eccentric, anteriorly directed regurgitant mitral jet. No vegetations. Redo MVR on Wednesday by Dr. Valdez Transfer to [facility] 10/14/19 Reentry sternotomy for MVR Wednesday [...] PT/INR Coumadin 3mg PO Daily Transfer to [facility] 10/18/19 Telemetry>> AV paced at 89 [...] PRN for sterhal incisional Pain) Cardiac Rehab: [facility] 10/21/19 POD#5 Overnight events discussed with Dr. Valdez. Echocardiogram pending. Reviewed EKG. Likely pericarditis. Start Medrol dospak. . Creatinine continues to improve. 3 today. INR 2.9 today. Hold coumadin today. Plan to start 0.5 mg tomorrow if appropriate. Home dose tentatively 0.5mg and Wednesday. COUMADIN DIARY Goal INR: 2 to 3 Coumadin to be managed by Dr. Ronan Bowser ( [phone]) Pt already has appt on to receive Procrit; Pt to have INR at that time Date: 10/16 10/17 10/18 10/19 10/20 10/21 10/22 INR 1.1 1.7 4.7 4.7 2.9 Coumadin: 1 mg 0.5mg none none none Electronically signed by Nir [facility] Conversion Manager Traffic Cerner at 10/28/2022 7:18 PM CDT documented in this encounter Plan of Treatment Upcoming Encounters Date Type Department Care Team (Late st Contact Info) Description 04/12/2025 7:30 AM EDT Hospital Encounter [facility] Operating Room 1 [place] [address] Bill Graham MD [address] [place] [address] 04/12/2025 7:30 AM EDT Anesthesia Event [facility] Operating Room 1 [place] [address] Lucio Szymanski MD [address] [place] [address] 04/12/2025 7:30 AM EDT - 04/12/2025 8:55 AM EDT Surgery [facility] Operating Room [address] [place] [address] Bill Graham MD [address] [place] [id number] (LAPAROSCOPIC PERITONEAL DIALYSIS CATHETER INSERTION) Scheduled Procedures Name Priority Associated Diagnoses Date/Ti me LAPAROSCOPY, WITH PERITONEAL DIALYSIS CATHETER INSERTION Chronic kidney disease, stage V (HCC) 04/12/2025 7:30 AM EDT documented as of this encounter Visit Diagnoses Not on filedocumented in this encounter Care Teams Sorting Livestock Worker Relationship Specialty Start Date End Date Félxi Monroe, CONSTRUCTION TECHNICIAN [address] [facility] [address] [place] [address] PCP - General Nurse Practitioner 08/25/22 documented as of this encounter
--- OUTSIDE RECORDS SUMMARY | 2025-04-11 11:09 | XMS_ITS | Encounter Summary ---
Author Organization [employer] ([place], [place], [place], [place]) Address [address] [address] Care Team Providers Care Sales Coordinator Name Role Phone Félix Monroe APRN Primary Care Provider [phone] Encounter Details Date Type Department Care Team (Late st Contact Info) Description 10/07/2020 Transcribed Document [facility] Family Medicine [address] [place] [address] ProviderMaria Esther MD [address] [place], [place] [address] Social History Tobacco Use Types Packs/Day Years Used Date Smoking Tobacco: Never Assessed Comments Unknown Sex and Gender Information Value Date Recorded Sex Assigned at Not on file Legal Sex Female 6:53 PM CDT Gender Identity Not on file Sexual Orientation Not on file documented as of this encounter Miscellaneous Notes * Cerner Conversion Note - Maria Esther ProviderMD - 10/07/2020 12:35 PM CDT Consult Phone Call Documentation Entered On: 10/07/2020 12:52 EDT Performed On: 10/07/2020 12:35 EDT by Edy Painter, POLY PACKER [facility] Phone Call for Consults Consult Reason : acute chf Provider Service Notified Name : Cardiology Physician Covering for Consult : YANE LION MD Date and Time Call Returned : 10/07/2020 12:52 EDT Edy Painter [facility] - 10/07/2020 12:52 EDT Electronically signed by Nir [facility] Conversion Video Player Mechanic Cerner at 10/28/2022 7:26 PM CDT documented in this encounter Plan of Treatment Upcoming Encounters Date Type Department Care Team (Late st Contact Info) Description 04/12/2025 7:30 AM EDT Hospital Encounter [facility] [place] Operating Room 1 [place] [address] Bill Graham MD [address] [facility] [address] [place] [address] 04/12/2025 7:30 AM EDT Anesthesia Event [facility] [place] Operating Room 1 [place] [address] Lucio Szymanski MD [address] [place] [address] 04/12/2025 7:30 AM EDT - 04/12/2025 8:55 AM EDT Surgery [facility] [place] Operating Room 1 [place] [address] [place] [address] [place] [address] [address] [place] [address] (LAPAROSCOPIC PERITONEAL DIALYSIS CATHETER INSERTION) Scheduled Procedures Name Priority Associated Diagnoses Date/Ti me LAPAROSCOPY, WITH PERITONEAL DIALYSIS CATHETER INSERTION Chronic kidney disease, stage V (HCC) 04/12/2025 7:30 AM EDT documented as of this encounter Visit Diagnoses Not on filedocumented in this encounter Care Teams Sales Coordinator Relationship Specialty Start Date End Date Félix Monroe, SUPERVISOR MAINTENANCE [address] [facility] [address] [place] [address] PCP - General Nurse Practitioner 08/25/22 documented as of this encounter
--- OUTSIDE RECORDS SUMMARY | 2025-04-11 11:09 | XMS_ITS | Encounter Summary ---
Author Organization [employer] ([place], [place], [place]) Address [address] [place] [address] Care Team Providers Care Application Integration Architect Name Role Phone Fer Félix Singh APRN Primary Care Provider [phone] Encounter Details Date Type Department Care Team (Late st Contact Info) Description 10/20/2019 Transcribed Document [facility] Family Medicine [address] [place] [address] ProviderMaria Esther MD [address] [place] [address] Social History Tobacco Use Types Packs/Day Years Used Date Smoking Tobacco: Never Assessed Comments Unknown Sex and Gender Information Value Date Recorded Sex Assigned at Not on file Legal Sex Female 6:53 PM CDT Gender Identity Not on file Sexual Orientation Not on file documented as of this encounter Miscellaneous Notes * Cerner Conversion Note - Maria Esther Reyes MD - 10/20/2019 9:43 AM CDT UM Authorization Entered On: 10/20/2019 9:43 EDT Performed On: 10/20/2019 9:43 EDT by ALETHEA MEYERS Rn-Utilization Review Primary Insurance Authorization Authorization and Policy Numbers : Insurance 1 Health Plan: [place] Medicaid Policy Number: [id number] Authorization Number: Insurance Primary Name : [place] Medicaid Policy Number: [id number] Authorization Status-Primary : Awaiting callback Reference Number-Primary : [id number] Authorization Number-Primary : [id number] Number of Days Authorized-Primary : 8 Day(s) Authorized Service Begin Date-Primary : 10/11/2019 EDT Authorized Service End Date-Primary : 10/19/2019 EDT Authorization Comments-Primary : Faxed clinicals via [employer] for 10/18-10/19. Historical Authorization Comments-Primary : Comment 1: Per Availity, Inpt Auth approved 9 visits. NRD 10/19. (ALETHEA MEYERS, Rn-Utilization Review 10/19/2019 07:26) Comment 2: clinical faxed per cerner for c/s date 10/17 (Shantal Bernal, Rn-Utilization Review 10/18/2019 13:06) Comment 3: clinicals faxed via cerner for cont stay for dos 10/17/2019 (JESSICA GUIDO, RN-Utilization Review 10/17/2019 14:49) Comment 4: Authorized per fax 10/12/2019 @ 1825. Approved x7 days, 10/11/2019 - 10/17/2019. Next review due: 10/17/2019. (Deborah Toro, Animation Camera Operator 10/13/2019 07:31) Comment 5: submitted on availity for IP auth w/ clinicals attached (JESSICA GUIDO, RN-Utilization Review 10/12/2019 10:36) ALETHEA MEYERS, Rn-Utilization Review - 10/20/2019 9:43 EDT documented in this encounter Plan of Treatment Upcoming Encounters Date Type Department Care Team (Late st Contact Info) Description 04/12/2025 7:30 AM EDT Hospital Encounter [facility] Operating Room 1 [place] [address] Bill Graham MD [address] [place] [address] [address] [place] [address] 04/12/2025 7:30 AM EDT Anesthesia Event [facility] Operating Room 1 [place] [phone] Lucio Szymanski MD [address] [place] [address] 04/12/2025 7:30 AM EDT - 04/12/2025 8:55 AM EDT Surgery [facility] Operating Room 1 [place] [address] Bill Graham MD [address] [facility] [address] [place] [address] (LAPAROSCOPIC PERITONEAL DIALYSIS CATHETER INSERTION) Scheduled Procedures Name Priority Associated Diagnoses Date/Ti me LAPAROSCOPY, WITH PERITONEAL DIALYSIS CATHETER INSERTION Chronic kidney disease, stage V (HCC) 04/12/2025 7:30 AM EDT documented as of this encounter Visit Diagnoses Not on filedocumented in this encounter Care Teams Application Integration Architect Relationship Specialty Start Date End Date Félix Monroe, INCENDIARY POWDER MIXER [address] [facility] [address] [place] [address] PCP - General Nurse Practitioner 08/25/22 documented as of this encounter
--- OUTSIDE RECORDS SUMMARY | 2025-04-11 11:09 | XMS_ITS | Encounter Summary ---
Author Organization [employer] ([place], [place], [place], [place]) Address [address] [address] Care Team Providers Care Underwriting Internship Name Role Phone Félix Monroe APRN Primary Care Provider [phone] Encounter Details Date Type Department Care Team (Late st Contact Info) Description 10/08/2020 Transcribed Document [facility] Family Medicine [address] [place] [address] ProviderMaria Esther MD [address] [place], [place] [address] Social History Tobacco Use Types Packs/Day Years Used Date Smoking Tobacco: Never Assessed Comments Unknown Sex and Gender Information Value Date Recorded Sex Assigned at Not on file Legal Sex Female 6:53 PM CDT Gender Identity Not on file Sexual Orientation Not on file documented as of this encounter Miscellaneous Notes * Cerner Conversion Note - Maria Esther ProviderMD - 10/08/2020 1:24 PM CDT UM Authorization Entered On: 10/08/2020 13:25 EDT Performed On: 10/08/2020 13:24 EDT by JESSICA GUIDO RN-Utilization Review Primary Insurance Authorization Authorization and Policy Numbers : Insurance 1 Health Plan: [place] Medicaid Policy Number: [id number] Authorization Number: Insurance Primary Name : [place] Medicaid Policy Number: [id number] Authorization Status-Primary : Awaiting callback Reference Number-Primary : [id number] Authorized Service Begin Date-Primary : 10/07/2020 EDT Authorization Comments-Primary : submitted on availity for IP auth w/ clinicals attached Historical Authorization Comments-Primary : No Authorization Comments Found JESSICA GUIDO, RN-Utilization Review - 10/08/2020 13:24 EDT documented in this encounter Plan of Treatment Upcoming Encounters Date Type Department Care Team (Late st Contact Info) Description 04/12/2025 7:30 AM EDT Hospital Encounter [facility] Operating Room 1 [place] [id number] [place] [address] [place] [address] 04/12/2025 7:30 AM EDT Anesthesia Event [facility] Operating Room 1 [place] [address] Lucio Szmyanski MD [address] [place] [address] 04/12/2025 7:30 AM EDT - 04/12/2025 8:55 AM EDT Surgery [facility] Operating Room 1 [place] [address] Bill Graham MD [address] [place] [address] (LAPAROSCOPIC PERITONEAL DIALYSIS CATHETER INSERTION) Scheduled Procedures Name Priority Associated Diagnoses Date/Ti me LAPAROSCOPY, WITH PERITONEAL DIALYSIS CATHETER INSERTION Chronic kidney disease, stage V (HCC) 04/12/2025 7:30 AM EDT documented as of this encounter Visit Diagnoses Not on filedocumented in this encounter Care Teams Underwriting Internship Relationship Specialty Start Date End Date Félix Monroe, METALIZER [address] [facility] [address] [place], [place] [address] PCP - General Nurse Practitioner 08/25/22 documented as of this encounter
--- OUTSIDE RECORDS SUMMARY | 2025-04-11 11:09 | XMS_ITS | Encounter Summary ---
Author Organization [employer] ([place], [place], [place], [place]) Address [address] [address] Care Team Providers Care Hand Sizer Name Role Phone Félix Monroe APRN Primary Care Provider [phone] Encounter Details Date Type Department Care Team (Late st Contact Info) Description 10/19/2019 Transcribed Document [facility] [place] [facility] [place] [address] ProviderMaria Esther MD [address] [place] [address] Social History Tobacco Use Types Packs/Day Years Used Date Smoking Tobacco: Never Assessed Comments Unknown Sex and Gender Information Value Date Recorded Sex Assigned at Not on file Legal Sex Female 6:53 PM CDT Gender Identity Not on file Sexual Orientation Not on file documented as of this encounter Miscellaneous Notes * Cerner Conversion Note - Maria Esther Reyes MD - 10/19/2019 1:16 PM CDT Patient: CORRIE SMITH Age: 49 years Sex: Female : 1970 Associated Diagnoses: None Author: GLIES BLAS MD-INT DATE OF SERVICE [ DOS ]: 10-19-2019 Basic Information SUBJECTIVE: Patient is seen and [...] initial episode of care / SNOMED CT 6195758615 / Confirmed At risk for sleep apnea / IMO 81293946 / Confirmed CHF, acute on chronic / SNOMED CT 17820358 / Confirmed Class 3 Systolic GERD - Gastro-esophageal reflux disease / SNOMED CT 2672232271 / Confirmed H/O: TIA / SNOMED CT 009601811 / Confirmed History of laparoscopic adjustable gastric banding / SNOMED CT 1186218433 / Confirmed History of obstructive sleep apnea / IMO 81341938 / Confirmed HTN - Hypertension / SNOMED CT 9098570248 / Confirmed Mitral regurgitation / SNOMED CT 65464120 / Confirmed Prolonged QT interval / SNOMED CT 458689480 / Confirmed 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 519033911 / Confirmed Pulmonary edema / SNOMED CT 76470147 / Confirmed Restless legs syndrome / SNOMED CT 86682976 / Confirmed RF - Renal failure, Stage 4 / SNOMED CT 4334920632 / Confirmed Sleep apnea-before weight loss surgery / SNOMED CT 290631842 / Confirmed, Active Problems (16) At risk [...] Last Charted Minimum Maximum Temp 98 (OCT 18 10:02) 97.8 (OCT 17 14:30) 98 (OCT 17 17:24) Apical HR 88 (OCT 17 14:56) 88 (OCT 17 14:56) 88 (OCT 17 14:56) Mon HR 89 (OCT 18 10:02) 81 (OCT 18 05:27) 90 (OCT 17 14:30) Resp Rate 16 (OCT 18 10:02) 16 (OCT 18 01:46) 18 (OCT 17 17:24) SBP 119 (OCT 18 10:02) 100 (OCT 18 07:59) 133 (OCT 17 17:24) DBP 82 (OCT 18 10:02) 68 (OCT 18 07:59) H 93 (OCT 17 22:22) MAP 94 (OCT 18 10:02) 80 (OCT 18 07:59) 106 (OCT 17 22:22) SpO2 L 91 (OCT 18 10:02) L 91 (OCT 18 10:02) 99 (OCT 17 17:24) General: Alert and [...] tenderness, No swelling, No deformity. Integumentary: Warm, [place], Moist, No rash. Neurologic: Alert, Oriented, Normal [...] 25.1 (OCT 16) L 23.1 (OCT 16) Plt L 141 (OCT 18) L 155 (OCT 08) L 116 (OCT 07) L 123 (OCT 06) Na L 132 (OCT 09) L 133 (OCT 08) 138 (OCT 07) 140 (OCT 06) K 3.7 (OCT 18) 4.1 (OCT 08) 4.4 (OCT 16) 3.9 (OCT 16) Cl 102 (OCT 09) 102 (OCT 08) 107 (OCT 07) 112 (OCT 06) CO2 22 (OCT 09) L 19 (OCT 08) 21 (OCT 07) L 20 (OCT 06) BUN H 39 (OCT 18) H 36 (OCT 08) H 31 (OCT 16) H 27 (OCT 15) Cr H 3.70 (OCT 18) H 3.90 [...] 11) H 0.091 (OCT 10) , OCT 18 04:05 L 132 102 H 39 / 99 3.7 22 H 3.70 \ OCT 18 04:05 \ L 8.3 / H 15.3 L 141 / L 25.2 \ , Radiology Results (Last 48 hours) [id number] -- 10/11/2019 15:38 CR Chest 1 Vw Portable (10/18/2019 06:48) Result: PORTABLE CHEST X-RAYINDICATION: Pleural effusion.FINDINGS: A portable view of the chest was obtained. Comparison ismade to a prior exam dated 10/17/2019. The NG tube and right IJ Auburn-Ganzcatheter have been removed. Pleural and mediastinal drains [...] removed Started on Coumadin for Mechanical valve OFF IV Insulin drip Monitor Anemia Monitor Renal failure Anticipates discharge home soon per cardiothoracic surgery TIME SPENT: 32 minutes documented in this encounter Plan of Treatment Upcoming Encounters Date Type Department Care Team (Late st Contact Info) Description 04/12/2025 7:30 AM EDT Hospital Encounter [facility] Operating Room 1 [place] [address] Bill Graham MD [address] [facility] [address] [place] [address] 04/12/2025 7:30 AM EDT Anesthesia Event [facility] Operating Room 1 [place] [address] Lucio Szymanski MD [address] [place] [address] 04/12/2025 7:30 AM EDT - 04/12/2025 8:55 AM EDT Surgery [facility] Operating Room 1 [place] [address] [place] [address] [place] [address] [address] [place] [address] (LAPAROSCOPIC PERITONEAL DIALYSIS CATHETER INSERTION) Scheduled Procedures Name Priority Associated Diagnoses Date/Ti me LAPAROSCOPY, WITH PERITONEAL DIALYSIS CATHETER INSERTION Chronic kidney disease, stage V (HCC) 04/12/2025 7:30 AM EDT documented as of this encounter Visit Diagnoses Not on filedocumented in this encounter Care Teams Hand Sizer Relationship Specialty Start Date End Date Félix Monroe, BOMB LOADER [address] [facility] [address] [place] [address] PCP - General Nurse Practitioner 08/25/22 documented as of this encounter
--- OUTSIDE RECORDS SUMMARY | 2025-04-11 11:09 | XMS_ITS | Encounter Summary ---
Author Organization [employer] ([place], [place], [place], [place]) Address [address] [address] Care Team Providers Care Food Stylist Name Role Phone Monroe Félix Francisco RODRIGUEZ Primary Care Provider [phone] Encounter Details Date Type Department Care Team (Late st Contact Info) Description 10/21/2019 Transcribed Document [facility] [facility] [place] [address] ProviderMaria Esther MD [address] [place] [address] Social History Tobacco Use Types Packs/Day Years Used Date Smoking Tobacco: Never Assessed Comments Unknown Sex and Gender Information Value Date Recorded Sex Assigned at Not on file Legal Sex Female 6:53 PM CDT Gender Identity Not on file Sexual Orientation Not on file documented as of this encounter Miscellaneous Notes * Cerner Conversion Note - Maria Esther Reyes MD - 10/21/2019 9:37 AM CDT Patient: CORRIE SMITH Age: 49 years Sex: Female : 1970 Associated Diagnoses: None Author: SHAWANDA LUIS MD-NEP Basic Information She's feeling much better today, she is eager to go home, serum creatinine continues to improve. Review of Systems ROS reviewed as documented [...] initial episode of care / SNOMED CT 6812741476 / Confirmed At risk for sleep apnea / IMO 38165810 / Confirmed CHF, acute on chronic / SNOMED CT 09103743 / Confirmed Class 3 Systolic GERD - Gastro-esophageal reflux disease / SNOMED CT 0761191271 / Confirmed H/O: TIA / SNOMED CT 912131195 / Confirmed History of laparoscopic adjustable gastric banding / SNOMED CT 8883497748 / Confirmed History of obstructive sleep apnea / IMO 82600933 / Confirmed HTN - Hypertension / SNOMED CT 6575773842 / Confirmed Mitral regurgitation / SNOMED CT 59123195 / Confirmed Prolonged QT interval / SNOMED CT 953225823 / Confirmed 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 208787044 / Confirmed Pulmonary edema / SNOMED CT 17054785 / Confirmed Restless legs syndrome / SNOMED CT 50973372 / Confirmed RF - Renal failure, Stage 4 / SNOMED CT 5715305170 / Confirmed Sleep apnea-before weight loss surgery / SNOMED CT 354775131 / Confirmed, Active Problems (16) At risk [...] Past Medical History: Active HTN - Hypertension (0429970534) Family History: No family history items have [...] Last Charted Minimum Maximum Temp 97.8 (OCT 20:) 97.8 (OCT 20:) 98 (OCT 19 14:29) Apical HR 90 (OCT 20 08:26) 90 (OCT 20 08:26) 94 (OCT 19 20:49) Mon HR 87 (OCT 20 05:) 85 (OCT 19 19:57) 94 (OCT 19 17:56) Resp Rate 16 (OCT 20:) 16 (OCT 19 19:57) 20 (OCT 20:38) SBP 119 (OCT 20 05:) 114 (OCT 20:38) 140 (OCT 19 14:29) DBP 84 (OCT 20 05:) 72 (OCT 20:38) H 94 (OCT 19 14:29) MAP 94 (OCT 20 05:) 88 (OCT 20:38) 115 (OCT 19 14:29) SpO2 96 (OCT 20 09:00) L 91 (OCT 20 01:38) 96 (OCT 19 14:29) General: Alert and oriented, No acute distress. [...] H 10.9 (OCT 20) H 14.2 (OCT 19) H 15.3 (OCT 18) H 16.9 (OCT 17) HB L 7.8 (OCT 20) L 8.5 (OCT 19) L 8.3 (OCT 18) L 8.2 (OCT 17) HCT L 24.1 (OCT 20) L 27.3 (OCT 19) L 25.2 (OCT 18) L 25.0 (OCT 08) Plt 178 (OCT 20) 163 (OCT 19) L 141 (OCT 18) L 155 (OCT 08) Na L 133 (OCT 20) L 133 (OCT 19) L 132 (OCT 09) L 133 (OCT 08) K L 3.4 (OCT 20) 3.7 (OCT 19) 3.7 (OCT 18) 4.1 (OCT 08) Cl 102 (OCT 20) 102 (OCT 19) 102 (OCT 18) 102 (OCT 08) CO2 23 (OCT 20) 22 (OCT 19) 22 (OCT 09) L 19 (OCT 08) BUN H 36 (OCT 20) H 41 (OCT 10) H 39 (OCT 09) H 36 (OCT 08) Cr H 3.00 (OCT 20) H 3.30 (OCT 19) H 3.70 (OCT 18) H 3.90 (OCT 17) Glu R 92 (OCT 20) 102 (OCT 19) 99 (OCT 18) H 122 (OCT 17) Ca L 7.9 (OCT 20) L 8.3 (OCT 19) 8.4 (OCT 18) 8.8 (OCT 17) Lactic 1.2 (OCT 10) PT H 30.6 (OCT 20) H 49.6 (OCT 19) H 49.3 (OCT 18) H 18.3 (OCT 17) INR H 2.9 (OCT 20) H 4.7 (OCT 19) H 4.7 (OCT 18) H 1.7 (OCT 17) PTT 25.7 (OCT 15) 29.1 (OCT 14) [...] Blood pressure appears to be better controlled. I would keep her on the same current medications 3. Severe mitral regurgitation, status post repair in August of this year, complicated with hemolytic anemia, patient is status post successful Explantation of 28 mm CG annuloplasty band and Placement, 35/25 On-X mechanical mitral prosthesis / Salvage and reimplantation of all anterior and posterior chordae. She is doing very well postoperatively. 4. Acute kidney injury most probably secondary to volume depletion and possibly acute tubular necrosis from severe anemia, serum creatinine continues to improve down to 3.0 mg/dL. 5.Hemolytic anemia, most probably secondary to mitral valve disease, hematology following. Hemoglobin stable, will leave the management to hematology service. It will be okay to discharge home from the renal point of view and we will see her in follow-up in one month after discharge. documented in this encounter Plan of Treatment Upcoming Encounters Date Type Department Care Team (Late st Contact Info) Description 04/12/2025 7:30 AM EDT Hospital Encounter [facility] Operating Room 1 [place] [address] Bill Graham MD [address] [place] [address] 04/12/2025 7:30 AM EDT Anesthesia Event [facility] Operating Room [address] [place] [address] Lucio Szymanski MD [address] [place] [address] 04/12/2025 7:30 AM EDT - 04/12/2025 8:55 AM EDT Surgery [facility] Operating Room 1 [place] [address] Bill Graham MD [address] [place] [address] (LAPAROSCOPIC PERITONEAL DIALYSIS CATHETER INSERTION) Scheduled Procedures Name Priority Associated Diagnoses Date/Ti me LAPAROSCOPY, WITH PERITONEAL DIALYSIS CATHETER INSERTION Chronic kidney disease, stage V (HCC) 04/12/2025 7:30 AM EDT documented as of this encounter Visit Diagnoses Not on filedocumented in this encounter Care Teams Food Stylist Relationship Specialty Start Date End Date Félix Monroe, PAPER FOLDER [address] [facility] [address] [place] [address] PCP - General Nurse Practitioner 08/25/22 documented as of this encounter
--- OUTSIDE RECORDS SUMMARY | 2025-04-11 11:10 | XMS_ITS | Encounter Summary ---
Author Organization [employer] ([place], [place], [place], [place]) Address [address] [address] Care Team Providers Care Product Evangelist Name Role Phone Félix Monroe APRN Primary Care Provider Encounter Details Date Type Department Care Team (Late st Contact Info) Description 08/30/2019 Transcribed Document [facility] [place] [address] [place] [address] ProviderMaria Esther MD [address] [place] [address] Social History Tobacco Use Types Packs/Day Years Used Date Smoking Tobacco: Never Assessed Comments Unknown Sex and Gender Information Value Date Recorded Sex Assigned at Not on file Legal Sex Female 6:53 PM CDT Gender Identity Not on file Sexual Orientation Not on file documented as of this encounter Miscellaneous Notes * [employer]ner Conversion Note - Historical ProviderMD - 08/30/2019 5:00 AM FISH HOUSE WORKER Chart Check - Review Order Profile Entered On: 08/30/2019 6:52 EST Performed On: 08/30/2019 5:00 EST by Ángela Castillo, RN Chart Check Power[employer]ans Initiated/Discontinued as Appropriate : Yes All Active Orders Reviewed : Yes Ángela Castillo, CROW - 08/30/2019 6:52 EST documented in this encounter Plan of Treatment Upcoming Encounters Date Type Department Care Team (Late st Contact Info) Description 04/12/2025 7:30 AM EDT Hospital Encounter [facility] Operating Room [address] [place] [address] Bill Graham MD [address] [facility] [address] [place] [address] 04/12/2025 7:30 AM EDT Anesthesia Event [facility] Operating Room [address] [place] [address] Lucio Szymanski MD [address] [place] [address] 04/12/2025 7:30 AM EDT - 04/12/2025 8:55 AM EDT Surgery [facility] Operating Room [address] [place] [address] Bill Graham MD [address] [facility] [address] [place] [address] (LAPAROSCOPIC PERITONEAL DIALYSIS CATHETER INSERTION) Scheduled Procedures Name Priority Associated Diagnoses Date/Ti me LAPAROSCOPY, WITH PERITONEAL DIALYSIS CATHETER INSERTION Chronic kidney disease, stage V (HCC) 04/12/2025 7:30 AM EDT documented as of this encounter Visit Diagnoses Not on filedocumented in this encounter Care Teams Product Evangelist Relationship Specialty Start Date End Date Félix Monroe, NUCLEAR RADIATION ENGINEER [address] [facility] [address] [place] [address] PCP - General Nurse Practitioner 08/25/22 documented as of this encounter
--- OUTSIDE RECORDS SUMMARY | 2025-04-11 11:10 | XMS_ITS | Encounter Summary ---
Author Organization [employer] ([place], [place], [place], [place]) Address [address] [place] [address] Care Team Providers Care Transit Proof Machine Operator Name Role Phone Félix Monroe APRN Primary Care Provider [phone] Encounter Details Date Type Department Care Team (Late st Contact Info) Description 10/10/2020 Transcribed Document [facility] [place] [address] [place] [address] ProviderMaria Esther MD [address] [place], [place] [address] Social History Tobacco Use Types Packs/Day Years Used Date Smoking Tobacco: Never Assessed Comments Unknown Sex and Gender Information Value Date Recorded Sex Assigned at Not on file Legal Sex Female 6:53 PM CDT Gender Identity Not on file Sexual Orientation Not on file documented as of this encounter Miscellaneous Notes * Cerner Conversion Note - Maria Esther ProviderMD - 10/10/2020 2:41 PM CDT UM Authorization Entered On: 10/10/2020 14:42 EDT Performed On: 10/10/2020 14:41 EDT by Deborah Toro, Price Changer Primary Insurance Authorization Authorization and Policy Numbers : Insurance 1 Health Plan: [employer] Policy Number: [id number] Authorization Number: Insurance Primary Name : [employer] Policy Number: [id number] Authorization Status-Primary : No precert required Auth/Referral Contact Name-Primary : [place] Reference Number-Primary : [id number] Authorization Number-Primary : NPR due to COVID per fax from [employer]... ref# [id number] Authorized Service Begin Date-Primary : 10/07/2020 EDT Authorization Comments-Primary : Discharge date and summary faxed. Historical Authorization Comments-Primary : Comment 1: Rec fax from Osvaldo SIDDIQI 10/09/20 NPR due to COVID ref# [id number] (CHAO LANDIN Laila, Project Manager Entertainment [employer] Media 10/09/2020 10:39) Comment 2: submitted on availity for IP auth w/ clinicals attached (JESSICA GUIDO, RN-Utilization Review 10/08/2020 13:24) Deborah Toro, Price Changer - 10/10/2020 14:41 EDT Electronically signed by [facility] Conversion Scoop Driver Cerner at 10/28/2022 7:07 PM CDT documented in this encounter Plan of Treatment Upcoming Encounters Date Type Department Care Team (Late st Contact Info) Description 04/12/2025 7:30 AM EDT Hospital Encounter [facility] Operating Room [address] [place] [address] Bill Graham MD [address] [place], [place] [id number] 04/12/2025 7:30 AM EDT Anesthesia Event [facility] Operating Room 1 [place] [address] Lucio Szymanski MD [address] [place] [address] 04/12/2025 7:30 AM EDT - 04/12/2025 8:55 AM EDT Surgery [facility] Operating Room 1 [place] [address] Bill Graham MD [address] [place] [address] [address] (LAPAROSCOPIC PERITONEAL DIALYSIS CATHETER INSERTION) Scheduled Procedures Name Priority Associated Diagnoses Date/Ti me LAPAROSCOPY, WITH PERITONEAL DIALYSIS CATHETER INSERTION Chronic kidney disease, stage V (HCC) 04/12/2025 7:30 AM EDT documented as of this encounter Visit Diagnoses Not on filedocumented in this encounter Care Teams Transit Proof Machine Operator Relationship Specialty Start Date End Date Félix Monroe, DIRECTOR OF QUALITY [address] [facility] [address] [place] [address] PCP - General Nurse Practitioner 08/25/22 documented as of this encounter
--- OUTSIDE RECORDS SUMMARY | 2025-04-11 11:10 | XMS_ITS | Encounter Summary ---
Author Organization [employer] ([place], [place], [place], [place]) Address [address] [address] Care Team Providers Care Proposal Consultant Name Role Phone Fer Félix Singh MICHAEL Primary Care Provider [phone] Encounter Details Date Type Department Care Team (Late st Contact Info) Description 10/08/2020 Transcribed Document [facility] [place] [facility] [place] [address] ProviderMaria Esther MD [address] [place], [place] [address] Social History Tobacco Use Types Packs/Day Years Used Date Smoking Tobacco: Never Assessed Comments Unknown Sex and Gender Information Value Date Recorded Sex Assigned at Not on file Legal Sex Female 6:53 PM CDT Gender Identity Not on file Sexual Orientation Not on file documented as of this encounter Miscellaneous Notes * Cerner Conversion Note - Historical ProviderMD - 10/08/2020 4:30 AM CDT Event Note Entered On: 10/08/2020 4:53 EDT Performed On: 10/08/2020 4:30 EDT by Deya Chapin RN Event Note Event Date/Time : 10/07/2020 20:30 EDT Event Location : Assigned room Event Details : Other: Medication Description of Event : Warfarin marked as not given at 1600hours. Patient verified that she took Warfarin 5mg prior to admission in the hospital. Lovenox was also refused by the patient at 1600 hours as per Zahra MARIA at day shift. However, patient amenable to Lovenox at 2030 hours. Lovenox administered at 2100hours as ordered but unable to scan. Pharmacy informed to re-time the medication as patient agreed to the medication. Noted Lovenox re-timed at 2100 for 10/08/2020 but not for 10/07/2020. Followed-up with Pharmacist informed this morning again of event and was advised to unchart and try to re-time. Uncharted but cannot be re-timed. I was then informed by the pharmacist that they are unable to re-time due to the fact that it was already charted on by the previous shift RN and then advised to do an event note instead. Re-charted Lovenox as not given at 1600hours due to patient refusal. Deya Chapin, RN - 10/08/2020 4:42 EDT documented in this encounter Plan of Treatment Upcoming Encounters Date Type Department Care Team (Late st Contact Info) Description 04/12/2025 7:30 AM EDT Hospital Encounter [facility] Operating Room [address] [place] [address] Bill Graham MD [address] [place] [address] 04/12/2025 7:30 AM EDT Anesthesia Event [facility] Operating Room [address] [place] [address] Lucio Szymanski MD [address] [place] [address] 04/12/2025 7:30 AM EDT - 04/12/2025 8:55 AM EDT Surgery [facility] Operating Room [address] [place] [address] [place] [address] [place] [address] (LAPAROSCOPIC PERITONEAL DIALYSIS CATHETER INSERTION) Scheduled Procedures Name Priority Associated Diagnoses Date/Ti me LAPAROSCOPY, WITH PERITONEAL DIALYSIS CATHETER INSERTION Chronic kidney disease, stage V (HCC) 04/12/2025 7:30 AM EDT documented as of this encounter Visit Diagnoses Not on filedocumented in this encounter Care Teams Proposal Consultant Relationship Specialty Start Date End Date Félix Monroe, AMUSEMENT PARK RIDE MECHANIC [address] [place] [address] PCP - General Nurse Practitioner 08/25/22 documented as of this encounter
--- OUTSIDE RECORDS SUMMARY | 2025-04-11 11:10 | XMS_ITS | Encounter Summary ---
Author Organization [employer] ([place], [place], [place], [place]) Address [address] [address] Care Team Providers Care Photographic Printer Name Role Phone Félix Mornoe APRN Primary Care Provider [phone] Encounter Details Date Type Department Care Team (Late st Contact Info) Description 10/07/2020 Transcribed Document [facility] [place] [address] [place] [address] ProviderMaria Esther MD [address] [place] [address] Social History Tobacco Use Types Packs/Day Years Used Date Smoking Tobacco: Never Assessed Comments Unknown Sex and Gender Information Value Date Recorded Sex Assigned at Not on file Legal Sex Female 6:53 PM CDT Gender Identity Not on file Sexual Orientation Not on file documented as of this encounter Miscellaneous Notes * Cerner Conversion Note - Historical ProviderMD - 10/07/2020 10:57 AM CDT Meds to Bed Enrollment Entered On: 10/07/2020 15:41 EDT Performed On: 10/07/2020 10:57 EDT by RUSS VALENCIA RPh Meds to Bed Enrollment Patient Enrollment Decision: : Yes/enroll in meds to bed program RUSS VALENCIA RPh - 10/07/2020 15:41 EDT documented in this encounter Plan of Treatment Upcoming Encounters Date Type Department Care Team (Late st Contact Info) Description 04/12/2025 7:30 AM EDT Hospital Encounter [facility] Operating Room 1 [place] [address] Bill Graham MD [address] [facility] [address] [place] [address] 04/12/2025 7:30 AM EDT Anesthesia Event [facility] Operating Room 1 [place] [address] Lucio Szymanski MD [address] [place] [address] 04/12/2025 7:30 AM EDT - 04/12/2025 8:55 AM EDT Surgery [facility] Operating Room 1 [place] [address] [place] [address] [place] [address] [address] [place] [address] (LAPAROSCOPIC PERITONEAL DIALYSIS CATHETER INSERTION) Scheduled Procedures Name Priority Associated Diagnoses Date/Ti me LAPAROSCOPY, WITH PERITONEAL DIALYSIS CATHETER INSERTION Chronic kidney disease, stage V (HCC) 04/12/2025 7:30 AM EDT documented as of this encounter Visit Diagnoses Not on filedocumented in this encounter Care Teams Photographic Printer Relationship Specialty Start Date End Date Félix Monroe, CAR BARN LABORER [address] [facility] [address] [place] [address] PCP - General Nurse Practitioner 08/25/22 documented as of this encounter
--- OUTSIDE RECORDS SUMMARY | 2025-04-11 11:10 | XMS_ITS | Encounter Summary ---
Author Organization [employer] ([place], [place], [place], [place]) Address [address] [address] Care Team Providers Care Commercial Electrician Name Role Phone Fer Félix Francisco RODRIGUEZ Primary Care Provider [phone] Encounter Details Date Type Department Care Team (Late st Contact Info) Description 10/07/2020 Transcribed Document [facility] [place] [address] [place] [address] ProviderMaria Esther MD [address] [place], [place] [address] Social History Tobacco Use Types Packs/Day Years Used Date Smoking Tobacco: Never Assessed Comments Unknown Sex and Gender Information Value Date Recorded Sex Assigned at Not on file Legal Sex Female 6:53 PM CDT Gender Identity Not on file Sexual Orientation Not on file documented as of this encounter Miscellaneous Notes * Cerner Conversion Note - Maria Esther ProviderMD - 10/07/2020 10:55 AM CDT Admission History, Adult Entered On: 10/07/2020 11:56 EDT Performed On: 10/07/2020 10:55 EDT by Zahra Crane Rn Advance Directive Patient has Advance Directive *Q : Yes, Advance Directive with the patient Request Family/Rep to Provide Copy of AD : Yes Advance Directive Type : Living will Copy Advance Directive Verified/on Chart : No Zahra Crane Rn - 10/07/2020 11:44 EDT Anesthesia/Transfusion History Family History of Anesthesia Reaction : No prior transfusion(s) Blood Transfusion Acceptable to Patient : Yes Transfusion History : Prior anesthesia without reaction Family History of Anesthesia Reaction : None Zahra Crane Rn - 10/07/2020 11:44 EDT Functional Assessment Living Situation : Home Patient Lives With : Spouse Persons Assisting Patient at Home : Spouse Current Daily Living Assistance : Transportation Sensory Deficits : None Mobility Assistance Prior to Admission : Independent ECHEVARRIA Hx Falls Immediate/Within 3 Months : No Current Home Treatments : None Home Equipment : None Zahra Crane Rn - 10/07/2020 11:44 EDT General Info Preferred Name : Corrie Arrived From : Other: [facility] ED Mode of Arrival on Unit : Stretcher Patient Arrival Date/Time : 10/07/2020 11:15 EDT Legal Guardian : Spouse Legal Guardian : No Support Person/Patient Trucker : Yes Support Person/Pt Rep Name : Bola Stiles, spouse Contact Password : MERI Support Person/Pt Rep Contact Information : [phone] cell Want Family/Rep/Phys Notified of Admit : No Emergency Contact #1 : Bola Stiles Emergency Contact #1 Emergency Contact #1 Relationship : spouse Emergency Contact #2 : Emergency Contact #2 Phone Number : Emergency Contact #2 Relationship : Chief Complaint : SOA, tachypnea Information Obtained From : Patient Primary Language : Venezuelan Preferred Communication Mode : Verbal Communication Barrier : None Flight Purser Needed : No Zahra Crane Rn - 10/07/2020 11:44 EDT Fall Risk Scales ABCs Fall Injury Risk Identification : None Injury Moderate to High Risk Interventions : Supervise toileting as indicated, Transport methods appropriate to patient ECHEVARRIA Hx Falls Immediate/Within 3 Months : No Echevarria Secondary Diagnosis : No ECHEVARRIA Use of Ambulatory Aid : None ECHEVARRIA IV Therapy or IV Access : Yes Echevarria Gait/Transferring : Normal, bedrest, immobile Echevarria Mental Status : Oriented to own ability Echevarria Fall Risk Score : 20 ECHEVARRIA Fall Scale Risk Level : 0-24 Low Risk [place] Fall Interventions : Adequate lighting, Bed in low position, Call device within reach, Hourly comfort/safety rounds, Non-slip footwear, Personal items within reach, Room free of clutter/spills, Upper side-rails up, Wheels locked, Wires/Cords secured Fall Moderate to High Risk Interventions : Supervise toileting as indicated, Transport methods appropriate to patient Zahra Crane Rn - 10/07/2020 11:44 EDT Fall Risk Education Grid Alarms : Verbalizes understanding, Returns demonstration Assistive Equipment Use : Verbalizes understanding, Returns demonstration Bed Height/Stabilization : Verbalizes understanding, Returns demonstration Call light use : Verbalizes understanding, Returns demonstration Door Open : Verbalizes understanding, Returns demonstration Environmental Management : Verbalizes understanding, Returns demonstration Eyeglasses Use : Verbalizes understanding, Returns demonstration Fall Community Resources : Verbalizes understanding, Returns demonstration Fall Contract/Letter : Verbalizes understanding, Returns demonstration Fall Prevention in the Home : Verbalizes understanding, Returns demonstration Fall Prevention Protocol : Verbalizes understanding, Returns demonstration Hearing Aid Use : Verbalizes understanding, Returns demonstration Home Risk Assessment : Verbalizes understanding, Returns demonstration Need Constant Observation : Verbalizes understanding, Returns demonstration Night Light Use : Verbalizes understanding, Returns demonstration Nonskid Footwear Use : Verbalizes understanding, Returns demonstration Notification of Staff When Leaving : Verbalizes understanding, Returns demonstration Orthostatic Hypotension Precautions : Verbalizes understanding, Returns demonstration Personal Article Availability : Verbalizes understanding, Returns demonstration Prevention Responsibility Family : Verbalizes understanding, Returns demonstration Prevention Responsibility Patient : Verbalizes understanding, Returns demonstration Risk Alert Methods : Verbalizes understanding, Returns demonstration Risk Factors : Verbalizes understanding, Returns demonstration Safety Aids : Verbalizes understanding, Returns demonstration Siderails use/risks : Verbalizes understanding, Returns demonstration Special Assistive Devices : Verbalizes understanding, Returns demonstration Staff Responsiveness : Verbalizes understanding, Returns demonstration Symptom Identification & Action Plan *Q : Verbalizes understanding, Returns demonstration Symptom Reporting : Verbalizes understanding, Returns demonstration Toileting Schedule : Verbalizes understanding, Returns demonstration Transfer/Mobility Techniques : Verbalizes understanding, Returns demonstration Urinal/Bedpan Availability : Verbalizes understanding, Returns demonstration Wait for Assistance : Verbalizes understanding, Returns demonstration Wheelchair Safety : Verbalizes understanding, Returns demonstration Zahra Crane Rn - 10/07/2020 11:44 EDT Fall Risk Scale Calc Temp : 0 Zahra Crane Rn - 10/07/2020 11:44 EDT Health Histories Smoking Status : 5-9 cigarettes (between 1/4 to 1/2 pack)/day in last 30 days Smokeless Tobacco Status : Never Desires Tobacco Cessation Medication : Yes Zahra Crane Rn - 10/07/2020 11:44 EDT Social History (As Of: 10/07/2020 11:56:27 EDT) Tobacco: 10 or more cigarettes (1/2 [...] and Weight, Clinical Dosing Height Source : Stated Height Entry Format : Boomer Height, Feet : 5 ft(Converted to: 152 cm, 60 Inch) Height, Inches : 65 Inch(Converted to: 5 ft 5 Inch, 165.10 cm) Weight Source : Stated Zahra Crane Rn - 10/07/2020 11:44 EDT Estimated Weight Type of Weight Measurement Est : Boomer Weight, est lb : 135 lb(Converted to: 61 kg) Estimated Clinical Dosing Weight : 61.36 kg Zahra Crane Rn - 10/07/2020 11:44 EDT Infectious Disease History Has the patient ever been tested for COVID-19? : Yes, Patient stated results Negative Date of COVID-19 test known? : Yes Date of COVID-19 Test : 10/07/2020 EDT Date Comment : tested in ED this morning Does patient have symptoms of COVID-19? : Yes COVID19 Screening : No Experiencing Infectious Disease Symptoms : Difficulty breathing Physical contact outside [place] in the last 30 days : No Infectious Disease History : None Tuberculosis Symptoms : None Zahra Crane Rn - 10/07/2020 11:44 EDT Influenza Vaccine Asmt, Adult Previous Vaccines from Immunization Schedule : Previous Vaccines and Immunizations influenza virus vaccine, inactivated: 0.5 mL (09/04/19 11:32:00) Influenza Immunization, Current Season : Yes Influenza Immunization Date : 06/22/2020 EST Zahra Crane Rn - 10/07/2020 11:44 EDT Pneumococcal Vaccine Previous Vaccines from Immunization Schedule : Previous Vaccines and Immunizations influenza virus vaccine, inactivated: 0.5 mL (09/04/19 11:32:00) Pneumonia Immunization Received : Yes Pneumonia Immunization Date : 09/19/2019 EDT Zahra Crane Rn - 10/07/2020 11:44 EDT Order Details Transport Mode Order Detail : Wheelchair Isolation Precautions Order Detail : Standard Precautions Order Detail : 0 IV Order Detail : 1 Oxygen Order Detail : 1 Nurse Collect Order Detail : 0 Lift/Transfer : Independent Central Line Order Detail : No Room Service : Appropriate Arterial Line : No Patient Needs Meds Crushed/Liquid : No Zahra Crane Rn - 10/07/2020 11:44 EDT Nutrition History Feeding Ability : Independent Adaptive Feeding Equipment : None Adaptive Feeding Equipment : Regular Eating Poorly Due to Decreased Appetite : No Unplanned Weight Loss in Past 3-6 Months : No Malnutrition Screening Tool Total(mal) : 0 Malnutrition Screening Tool Risk Level : Patient not at risk Zahra Crane Rn - 10/07/2020 11:44 EDT [place] Suicide Severity Rating Scale (C-SSRS) CSSRS Past Month Wish to be : No CSSRS Past Month Suicidal Thoughts : No CSSRS Lifetime Suicide Behavior : No Suicide Severity Rating Score : 0 Suicide Severity Rating : No Additional Care Required at this time Zahra Crane Rn - 10/07/2020 11:44 EDT Psychosocial History Does Someone Depend on You for Care? : No Chronic/Terminal Illness w/Freq Visits : No Currently in Unsafe Situation : No Zahra Crane Rn - 10/07/2020 11:44 EDT Sleep Apnea Risk Assmt Hx of Obstructive Sleep Apnea Diagnosis : No Snore Loudly : No Tired, Fatigued, or Sleepy During Day : Yes Observed Stopping Breathing During Sleep : No Have/Are Being Treated for Hypertension : Yes BMI Greater Than 35 kg/m2 : No Age over 50 Years Old : Yes Neck Circumference Greater Than 40 cm : No Gender Male : No STOP-BANG Sleep Apnea Risk Level Score : 3 Zahra Crane Rn - 10/07/2020 11:44 EDT Valuables and Belongings Valuables and Belongings : Clothing, Jewelry, Personal items Clothing : Common streetwear Clothing Disposition : Bedside Jewelry : Ring, Other: three rings total Jewelry Disposition : With patient Personal Items : Cell phone Personal Items Disposition : Bedside Zahra Crane Rn - 10/07/2020 11:44 EDT Electronically signed by [facility] Conversion Nuclear Weapons Specialist Cerner at 10/28/2022 7:18 PM CDT documented in this encounter Plan of Treatment Upcoming Encounters Date Type Department Care Team (Late st Contact Info) Description 04/12/2025 7:30 AM EDT Hospital Encounter [facility] Operating Room 1 [place] [address] Bill Graham MD [address] [place] [address] 04/12/2025 7:30 AM EDT Anesthesia Event [facility] Operating Room 1 [place] [address] Lucio Szymanski MD [address] [place] [address] 04/12/2025 7:30 AM EDT - 04/12/2025 8:55 AM EDT Surgery [facility] Operating Room 1 [place] [address] Bill Graham MD [address] [place] [address] (LAPAROSCOPIC PERITONEAL DIALYSIS CATHETER INSERTION) Scheduled Procedures Name Priority Associated Diagnoses Date/Ti me LAPAROSCOPY, WITH PERITONEAL DIALYSIS CATHETER INSERTION Chronic kidney disease, stage V (HCC) 04/12/2025 7:30 AM EDT documented as of this encounter Visit Diagnoses Not on filedocumented in this encounter Care Teams Commercial Electrician Relationship Specialty Start Date End Date Félix Monroe, PURE PAK MACHINE OPERATOR [address] [facility] [address] [place] [address] PCP - General Nurse Practitioner 08/25/22 documented as of this encounter
--- OUTSIDE RECORDS SUMMARY | 2025-04-11 11:10 | XMS_ITS | Encounter Summary ---
Author Organization [employer] ([place], [place], [place], [place]) Address [address] [place] [address] Care Team Providers Care Alarm Signaler Name Role Phone Félix Monroe APRN Primary Care Provider [phone] Encounter Details Date Type Department Care Team (Late st Contact Info) Description 10/22/2019 Transcribed Document [facility] [place] Family [place] [address] ProviderMari aEsther MD [address] [place] [address] Social History Tobacco Use Types Packs/Day Years Used Date Smoking Tobacco: Never Assessed Comments Unknown Sex and Gender Information Value Date Recorded Sex Assigned at Not on file Legal Sex Female 6:53 PM CDT Gender Identity Not on file Sexual Orientation Not on file documented as of this encounter Miscellaneous Notes * Cerner Conversion Note - Maria Esther Reyes MD - 10/22/2019 10:22 AM CDT Patient: AWAIS SMITH Age: 49 years Sex: Female : 1970 Associated Diagnoses: None Author: MANUEL CRAWLEY PA Admission Date: Attending: Dr. Александр Valdez, CT [...] She is paced with underlying NSR 59. 04/08/20: POD#2 coughing, secretions too thick to get [...] now resolved. She denies dyspnea. Ambulating well. 10/22/19: POD#6 Sitting up in bed. No further events. Denies chest pain or dyspnea. Ambulating well. Very eager to go home. Health Status Allergies: Allergic Reactions (Selected) Severity [...] Push, See Comment, PRN: Other (See Comment) Chickasaw 0.65% nasal solution: 1 Ogden, Nasal, Q4H, PRN: Dry Nasal Passages Percocet 5/325 oral tablet: 2 Tab, Oral, [...] 1 Tab, Oral, At Bedtime , Medications (35) Active Scheduled: (17) #NaCl 0.9% *FLUSH* inj 10 mL [...] tab 25 mg 1 Tab, Oral, BID methylPREDNISolone 4 mg tab 4 mg 1 Tab, Oral, PC Lunch methylPREDNISolone 4 mg tab 4 mg 1 Tab, Oral, PC Dinner methylPREDNISolone 4 mg tab 8 mg 2 Tab, Oral, At Bedtime methylPREDNISolone 4 mg tab 4 mg 1 Tab, Oral, AC Breakfast methylPREDNISolone 4 mg tab 4 mg 1 Tab, Oral, At Bedtime nicotine 21 mg/24 hr patch 1 Patch, TransDermal, Daily NIFEdipine ER 60 mg tab 60 mg 1 Tab, Oral, Daily pantoprazole EC 40 mg tab 40 mg 1 Tab, Oral, Daily rOPINIRole 1 mg tab 1 mg 1 Tab, Oral, At Bedtime senna 8.6 mg tab 17.2 mg 2 Tab, Oral, BID senna/docusate 8.6/50 mg tab 1 Tab, Oral, BID Continuous: (0) PRN: (18) #NaCl 0.9% *FLUSH* inj 10 mL 10 [...] 1 Gram 2 mL, IV Piggyback, 1-Time NaCl 0.65% liq 45 mL 1 Ogden, Nasal, Q4H ondansetron 4 mg/2 mL inj 4 mg 2 mL, IV Push, Q4H oxyCODONE 5 mg tab 5 mg 1 Tab, Oral, Q6H potassium chloride 10 mEq 50 mL, IV Piggyback, Q1H promethazine 25 mg/1 mL inj 6.25 mg 0.25 mL, IntraVENous, Q6H Problem list: All Problems COPD (chronic obstructive pulmonary disease) / SNOMED CT 06349335 / Confirmed HTN - Hypertension / SNOMED CT 8871982132 / Confirmed Prolonged QT interval / SNOMED CT 779519480 / Confirmed CHF, acute on chronic / SNOMED CT 66127485 / Confirmed Class 3 Systolic Pulmonary edema / SNOMED CT 31863821 / Confirmed NSTEMI, initial episode of care / SNOMED CT 9815416923 / Confirmed Mitral regurgitation / SNOMED CT 41820008 / Confirmed RF - Renal failure, Stage 4 / SNOMED CT 7842881368 / Confirmed Sleep apnea-before weight loss surgery / SNOMED CT 362653564 / Confirmed GERD - Gastro-esophageal reflux disease / SNOMED CT 7942041019 / Confirmed Restless legs syndrome / SNOMED CT 17718277 / Confirmed H/O: TIA / SNOMED CT 743005514 / Confirmed History of obstructive sleep apnea / IMO 50621327 / Confirmed History of laparoscopic adjustable gastric banding / SNOMED CT 5184082674 / Confirmed At risk for sleep apnea / IMO 02426529 / Confirmed 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 389959786 / Confirmed Canceled: No Chronic Problems / Cerner NKP, Active Problems (16) At risk for sleep [...] Last Charted Minimum Maximum Temp 97.9 (OCT 21 06:00) 97.9 (OCT 21 06:00) 98.5 (OCT 20 10:30) Apical HR 77 (OCT 21 08:14) 77 (OCT 21 08:14) 85 (OCT 20 20:22) Mon HR 86 (OCT 21 06:00) 86 (OCT 21 02:20) 105 (OCT 20:25) Resp Rate 17 (OCT 21 06:00) 17 (OCT 21 06:00) 18 (OCT 20 22:19) SBP 132 (OCT 21 06:00) 120 (OCT 20 15:00) H 142 (OCT 20:25) DBP H 94 (OCT 21 06:00) 72 (OCT 20 15:00) H 94 (OCT 20 10:30) MAP 108 (OCT 21 06:00) 86 (OCT 20 15:00) 108 (OCT 21 06:00) SpO2 L 93 (OCT 21 06:00) L 92 (OCT 21 02:20) 95 (OCT 20 21:12) General: Alert and oriented. Respiratory: Lungs are clear to auscultation. Cardiovascular: Normal rate, Regular rhythm. Gastrointestinal: Soft, Non-tender, Non-distended. sternal incision>> C D I Tolerates PO Voiding Last BM >> 4\11 Ambulates Results Review General results Interpretation: No Radiology Results Found PATH:>> Impression and Plan VTE STATUS>>SCDS 10/13/19 RIA: S/p mitral ring repair. Tethering of the posterior mitral leaflet. Severe mitral regurgitation (4+) is present. Eccentric, anteriorly directed regurgitant mitral jet. No vegetations. Redo MVR on Wednesday by Dr. Valdez Transfer to [facility] 10/14/19 Reentry sternotomy for MVR Wednesday by [...] PT/INR Coumadin 3mg PO Daily Transfer to [facility] 10/18/19 Telemetry>> AV paced at 89 O2 [...] for sterhal incisional Pain) Cardiac Rehab: [facility] 10/21/19 POD#5 Overnight events discussed with Dr. Valdez. Echocardiogram pending. Reviewed EKG. Likely pericarditis. Start Medrol dospak. . Creatinine continues to improve. 3 today. INR 2.9 today. Hold coumadin today. Plan to start 0.5 mg tomorrow if appropriate. Home dose tentatively 0.5mg and Wednesday. 10/22/19 POD#6 Echocardiogram: S/P MVR Mild) mitral regurgitation. Visually estimated ejection fraction 40% +/- 5%. Right ventricle appears restrictied/constricted by pericardium. Remnant small circumferential pericardial effusion; thickened pericardium. Pleural effusion noted in apical 4 chamber. INR 2.1. Coumadin 0.5mg today, then 0.5mg on Tuesdays and Wednesdays. INR scheduled to be checked by Dr. Bowser on Wednesday. Creatinine continues to improve. 2.7 today. Home today. Followup appointments already ordered. COUMADIN DIARY Goal INR: 2 to 3 Coumadin to be managed by Dr. Ronan Bowser ( [phone]) Pt already has appt on to receive Procrit; Pt to have INR at that time Date: 10/16 10/17 10/18 10/19 10/20 10/21 10/22 INR 1.1 1.7 4.7 4.7 2.9 2.1 Coumadin: 1 mg 0.5mg none none none 0.5mg documented in this encounter Plan of Treatment Upcoming Encounters Date Type Department Care Team (Late st Contact Info) Description 04/12/2025 7:30 AM EDT Hospital Encounter [facility] Operating Room 1 [place] [address] Bill Graham MD [address] [place] [address] [address] [place] [address] 04/12/2025 7:30 AM EDT Anesthesia Event [facility] Operating Room 1 [place] [phone] Lucio Szymanski MD [address] [place] [address] 04/12/2025 7:30 AM EDT - 04/12/2025 8:55 AM EDT Surgery [facility] Operating Room 1 [place] [address] Bill Graham MD [address] [place] [address] [address] [place] [address] (LAPAROSCOPIC PERITONEAL DIALYSIS CATHETER INSERTION) Scheduled Procedures Name Priority Associated Diagnoses Date/Ti me LAPAROSCOPY, WITH PERITONEAL DIALYSIS CATHETER INSERTION Chronic kidney disease, stage V (HCC) 04/12/2025 7:30 AM EDT documented as of this encounter Visit Diagnoses Not on filedocumented in this encounter Care Teams Alarm Signaler Relationship Specialty Start Date End Date Félix Monroe, MANAGER PEST [address] [facility] [address] [place] [address] PCP - General Nurse Practitioner 08/25/22 documented as of this encounter
--- OUTSIDE RECORDS SUMMARY | 2025-04-11 11:10 | XMS_ITS | Encounter Summary ---
Author Organization [employer] ([place], [place], [place], [place]) Address [address] [address] Care Team Providers Care Team Otr Truck Driver Name Role Phone Félix Monroe APRN Primary Care Provider [phone] Encounter Details Date Type Department Care Team (Late st Contact Info) Description 10/09/2020 Transcribed Document [facility] [place] [address] [place] [address] ProviderMaria Esther MD [address] [place] [address] Social History Tobacco Use Types Packs/Day Years Used Date Smoking Tobacco: Never Assessed Comments Unknown Sex and Gender Information Value Date Recorded Sex Assigned at Not on file Legal Sex Female 6:53 PM CDT Gender Identity Not on file Sexual Orientation Not on file documented as of this encounter Miscellaneous Notes * Cerner Conversion Note - Maria Esther ProviderMD - 10/09/2020 2:15 PM CDT Initial Discharge Planning Entered On: 10/09/2020 14:18 EDT Performed On: 10/09/2020 14:15 EDT by TAYLOR BRYANT Social Worker Initial Assessment I Previously Documented Living Environment : No qualifying data available. 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 : Yes Medical Durable Power of Director Of Manufacturing Operations Name : None Legal Guardian : No TAYLOR BRYANT Social Worker - 10/09/2020 14:15 EDT Initial Assessment II Sensory and Motor Deficits : None Current Home Treatments and Equipment : None Services and Community Resources : Other: INR monitoring TAYLOR BRYANT Social Worker - 10/09/2020 14:15 EDT Discharge Needs I Anticipated Discharge To, CM : Home with family care Current Home Treatment/Equipment : Current Home Treatment/Equipment No qualifying data available. Documentation Status Complete : Yes TAYLOR BRYANT Social Worker - 10/09/2020 14:15 EDT Discharge Needs II Professional Skilled Services : Professional Skilled Services No qualifying data available. Needs Assistance with Transportation : No TAYLOR BRYANT Social Worker - 10/09/2020 14:15 EDT Narrative Note Narrative Note : Patient is a 50yo female who prior to admission resided with spouse, Bola, in [facility]. Admitted via [facility] with CHF. cardiology and CTS (hx of MVR in 2019) consulted, on room air, K+=3.4, BUN/Crea=32/1.3, INR=1.4 (goal 2.5/3.5) CXR=Left lower lobe scarring, without definite acute infiltrate; BB=977'no assisted device - s/o, cardiology currently treating CHF, CTS- no surgical intervention - s/o. DCP: home with spouse and outpatient followup - will arrange outpatient sleep study at [facility] - regarding notation for gastric bypass by IM the referral will need to be made by patient's PCP due to insurance. CM will continue to follow. TAYLOR BRYANT Social Worker - 10/09/2020 14:22 EDT documented in this encounter Plan of Treatment Upcoming Encounters Date Type Department Care Team (Late st Contact Info) Description 04/12/2025 7:30 AM EDT Hospital Encounter [facility] Operating Room 1 [place] [address] [place] [address] [place] [address] [address] [place] [address] 04/12/2025 7:30 AM EDT Anesthesia Event [facility] Operating Room 1 [place] [address] Lucio Szymanski MD [address] [place] [id number] 04/12/2025 7:30 AM EDT - 04/12/2025 8:55 AM EDT Surgery [facility] Operating Room 1 [place] [address] [place] [address] [place] [address] [address] [place] [address] [phone] (LAPAROSCOPIC PERITONEAL DIALYSIS CATHETER INSERTION) Scheduled Procedures Name Priority Associated Diagnoses Date/Ti me LAPAROSCOPY, WITH PERITONEAL DIALYSIS CATHETER INSERTION Chronic kidney disease, stage V (HCC) 04/12/2025 7:30 AM EDT documented as of this encounter Visit Diagnoses Not on filedocumented in this encounter Care Teams Team Otr Truck Driver Relationship Specialty Start Date End Date Félix Monroe, ENVIRONMENTAL SERVICES ASSISTANT [address] [facility] [address] [place] [address] PCP - General Nurse Practitioner 08/25/22 documented as of this encounter
--- OUTSIDE RECORDS SUMMARY | 2025-04-11 11:10 | XMS_ITS | Encounter Summary ---
Author Organization [employer] ([place], [place], [place], [place]) Address [address] [address] Care Team Providers Care Ecology Teacher Name Role Phone Félix Monroe APRN Primary Care Provider [phone] Encounter Details Date Type Department Care Team (Late st Contact Info) Description 10/14/2020 Transcribed Document [facility] [place] Family Medicine [address] [place] [address] ProviderMaria Esther MD [address] [place], [place] [address] Social History Tobacco Use Types Packs/Day Years Used Date Smoking Tobacco: Never Assessed Comments Unknown Sex and Gender Information Value Date Recorded Sex Assigned at Not on file Legal Sex Female 6:53 PM CDT Gender Identity Not on file Sexual Orientation Not on file documented as of this encounter Miscellaneous Notes * Cerner Conversion Note - Maria Esther ProviderMD - 10/14/2020 3:20 PM CDT UM Authorization Entered On: 10/14/2020 15:21 EDT Performed On: 10/14/2020 15:20 EDT by Deborah Toro, Seafood Team Member Primary Insurance Authorization Authorization and Policy Numbers : Insurance 1 Health Plan: [place] Policy Number: [id number] Authorization Number: Insurance Primary Name : [place] Policy Number: [id number] Authorization Status-Primary : Approved Auth/Referral Contact Name-Primary : [place] Reference Number-Primary : [id number] Authorization Number-Primary : NPR due to COVID per fax from [employer] [facility]... ref# [id number] Authorized Service Begin Date-Primary : 10/07/2020 EDT Authorization Comments-Primary : Authorized per [employer]. Request approved x3 days. 10/07/20 - 10/10/20 Historical Authorization Comments-Primary : Comment 1: Discharge date and summary faxed. (Deborah Toro, Seafood Team Member 10/10/2020 14:41) Comment 2: Rec fax from [facility] 10/09/20 NPR due to COVID ref# [id number] (CHAO LANDIN, Manager Mission 10/09/2020 10:39) Comment 3: submitted on [employer]ity for IP auth w/ clinicals attached (JESSICA GUIDO, RN-Utilization Review 10/08/2020 13:24) Deborah Toro, Seafood Team Member - 10/14/2020 15:20 EDT Electronically signed by [facility] Conversion Senior Field Engineer Cerner at 10/28/2022 7:08 PM CDT documented in this encounter Plan of Treatment Upcoming Encounters Date Type Department Care Team (Late st Contact Info) Description 04/12/2025 7:30 AM EDT Hospital Encounter [facility] Operating Room 1 [place] [address] Bill Graham MD [address] [place] [address] [place] [address] 04/12/2025 7:30 AM EDT Anesthesia Event [facility] Operating Room 1 [place] [address] Lucio Szymanski MD [address] [place] [address] 04/12/2025 7:30 AM EDT - 04/12/2025 8:55 AM EDT Surgery [facility] Operating Room [address] [place] [address] [place] [address] [place] [address] [address] [place] [address] (LAPAROSCOPIC PERITONEAL DIALYSIS CATHETER INSERTION) Scheduled Procedures Name Priority Associated Diagnoses Date/Ti me LAPAROSCOPY, WITH PERITONEAL DIALYSIS CATHETER INSERTION Chronic kidney disease, stage V (HCC) 04/12/2025 7:30 AM EDT documented as of this encounter Visit Diagnoses Not on filedocumented in this encounter Care Teams Ecology Teacher Relationship Specialty Start Date End Date Félix Monroe, BAND SAW MARKER [address] [place] [address] PCP - General Nurse Practitioner 08/25/22 documented as of this encounter
--- OUTSIDE RECORDS SUMMARY | 2025-04-11 11:10 | XMS_ITS | Encounter Summary ---
Author Organization [employer] ([place], [place], [place], [place]) Address [address] [place] [address] Care Team Providers Care De Icer Element Winder Name Role Phone Félix Monroe APRN Primary Care Provider [phone] Encounter Details Date Type Department Care Team (Late st Contact Info) Description 10/24/2019 Transcribed Document [facility] Family Medicine [address] [place] [address] ProviderMaria Esther MD [address] [place] [address] Social History Tobacco Use Types Packs/Day Years Used Date Smoking Tobacco: Never Assessed Comments Unknown Sex and Gender Information Value Date Recorded Sex Assigned at Not on file Legal Sex Female 6:53 PM CDT Gender Identity Not on file Sexual Orientation Not on file documented as of this encounter Miscellaneous Notes * Cerner Conversion Note - Maria Esther Reyes MD - 10/24/2019 8:30 AM CDT UM Authorization Entered On: 10/24/2019 8:30 EDT Performed On: 10/24/2019 8:30 EDT by Deborah Toro, Ribbing Machine Operator Primary Insurance Authorization Authorization and Policy Numbers : Insurance 1 Health Plan: [place] Medicaid Policy Number: [id number] Authorization Number: Insurance Primary Name : [place] Medicaid Policy Number: [id number] Authorization Status-Primary : Awaiting callback Auth/Referral Contact Name-Primary : [place] Reference Number-Primary : [id number] Authorization Number-Primary : [id number] Number of Days Authorized-Primary : 8 Day(s) Authorized Service Begin Date-Primary : 10/11/2019 EDT Authorized Service End Date-Primary : 10/19/2019 EDT Authorization Comments-Primary : Discharge date and summary faxed. Historical Authorization Comments-Primary : Comment 1: Faxed clinicals via [employer] for 10/18-10/19. (ALETHEA MEYERS, Rn-Utilization Review 10/20/2019 09:43) Comment 2: Per Availity, Inpt Auth approved 9 visits. NRD 10/19. (ALETHEA MEYERS, Rn-Utilization Review 10/19/2019 07:26) Comment 3: clinical faxed per [employer]ner for c/s date 10/17 (Shantal Bernal, Rn-Utilization Review 10/18/2019 13:06) Comment 4: clinicals faxed via [employer] for cont stay for dos 10/17/2019 (JESSICA GUIDO, RN-Utilization Review 10/17/2019 14:49) Comment 5: Authorized per fax 10/12/2019 @ 1825. Approved x7 days, 10/11/2019 - 10/17/2019. Next review due: 10/17/2019. (Deborah Toro, Ribbing Machine Operator 10/13/2019 07:31) Comment 6: submitted on availity for IP auth w/ clinicals attached (JESSICA GUIDO, RN-Utilization Review 10/12/2019 10:36) Deborah Toro, Ribbing Machine Operator - 10/24/2019 8:30 EDT Electronically signed by Evaristo Loyola Conversion Associate Professor Of Art History Cerner at 10/28/2022 7:01 PM CDT documented in this encounter Plan of Treatment Upcoming Encounters Date Type Department Care Team (Late st Contact Info) Description 04/12/2025 7:30 AM EDT Hospital Encounter [facility] Operating Room [address] [place] [address] Bill Graham MD [address] [place] [address] [address] [place], [place] [phone] 04/12/2025 7:30 AM EDT Anesthesia Event [facility] Operating Room [address] [place] [address] Lucio Szymanski MD [address] [place], [place] [id number] 04/12/2025 7:30 AM EDT - 04/12/2025 8:55 AM EDT Surgery [facility] Operating Room [address] [place] [address] Bill Graham MD [address] [place] [address] [address] [place] [address] (LAPAROSCOPIC PERITONEAL DIALYSIS CATHETER INSERTION) Scheduled Procedures Name Priority Associated Diagnoses Date/Ti me LAPAROSCOPY, WITH PERITONEAL DIALYSIS CATHETER INSERTION Chronic kidney disease, stage V (HCC) 04/12/2025 7:30 AM EDT documented as of this encounter Visit Diagnoses Not on filedocumented in this encounter Care Teams De Icer Element Winder Relationship Specialty Start Date End Date Félix Monroe, UNDERWATER PHOTOGRAPHER [address] [facility] [address] [place] [address] PCP - General Nurse Practitioner 08/25/22 documented as of this encounter
--- OUTSIDE RECORDS SUMMARY | 2025-04-11 11:10 | XMS_ITS | Encounter Summary ---
Author Organization [employer] ([place], [place], [place], [place]) Address [address] [place] [address] Care Team Providers Care Die Barber Name Role Phone Félix Monroe APRN Primary Care Provider [phone] Encounter Details Date Type Department Care Team (Late st Contact Info) Description 10/24/2019 Transcribed Document [facility] [place] Family Medicine [address] [place] [address] ProviderMaria Esther MD [address] [place] [address] Social History Tobacco Use Types Packs/Day Years Used Date Smoking Tobacco: Never Assessed Comments Unknown Sex and Gender Information Value Date Recorded Sex Assigned at Not on file Legal Sex Female 6:53 PM CDT Gender Identity Not on file Sexual Orientation Not on file documented as of this encounter Miscellaneous Notes * Cerner Conversion Note - Maria Esther Reyes MD - 10/24/2019 12:16 PM CDT UM Authorization Entered On: 10/24/2019 12:17 EDT Performed On: 10/24/2019 12:16 EDT by DOUGLAS JEREZ RN-Utilization Review Primary Insurance Authorization Authorization and Policy Numbers : Insurance 1 Health Plan: [place] Medicaid Policy Number: [id number] Authorization Number: Insurance Primary Name : [place] Medicaid Policy Number: [id number] Authorization Status-Primary : Admit approved Auth/Referral Contact Name-Primary : [place] Reference Number-Primary : [id number] Authorization Number-Primary : [id number] Number of Days Authorized-Primary : 10 Day(s) Authorized Service Begin Date-Primary : 10/11/2019 EDT Authorized Service End Date-Primary : 10/21/2019 EDT Authorization Comments-Primary : [place] Medicaid approved for 11 days inpt Historical Authorization Comments-Primary : Comment 1: Discharge date and summary faxed. (Deborah Toro, Vegetable Loader Machine Operator 10/24/2019 08:30) Comment 2: Faxed clinicals via [employer] for 10/18-10/19. (ALETHEA MEYERS, Rn-Utilization Review 10/20/2019 09:43) Comment 3: Per Avail[employer], Inpt Auth approved 9 visits. NRD 10/19. (ALETHEA MEYERS, Rn-Utilization Review 10/19/2019 07:26) Comment 4: clinical faxed per [employer]ner for c/s date 10/17 (Shantal Bernal, Rn-Utilization Review 10/18/2019 13:06) Comment 5: clinicals faxed via [employer]ner for cont stay for dos 10/17/2019 (JESSICA GUIDO, RN-Utilization Review 10/17/2019 14:49) Comment 6: Authorized per fax 10/12/2019 @ 1825. Approved x7 days, 10/11/2019 - 10/17/2019. Next review due: 10/17/2019. (Deborah Toro, Vegetable Loader Machine Operator 10/13/2019 07:31) Comment 7: submitted on availity for IP auth w/ clinicals attached (JESSICA GUIDO, RN-Utilization Review 10/12/2019 10:36) DOUGLAS JEREZ, RN-Utilization Review - 10/24/2019 12:16 EDT documented in this encounter Plan of Treatment Upcoming Encounters Date Type Department Care Team (Late st Contact Info) Description 04/12/2025 7:30 AM EDT Hospital Encounter [facility] Operating Room 1 [place] [address] [place] [address] [place] [address] [address] [place] [address] 04/12/2025 7:30 AM EDT Anesthesia Event [facility] Operating Room [address] [place] [address] Lucio Szymanski MD [address] [place] [address] 04/12/2025 7:30 AM EDT - 04/12/2025 8:55 AM EDT Surgery [facility] Operating Room [address] [place] [address] [place] [address] [place] [address] [address] [place] [address] (LAPAROSCOPIC PERITONEAL DIALYSIS CATHETER INSERTION) Scheduled Procedures Name Priority Associated Diagnoses Date/Ti me LAPAROSCOPY, WITH PERITONEAL DIALYSIS CATHETER INSERTION Chronic kidney disease, stage V (HCC) 04/12/2025 7:30 AM EDT documented as of this encounter Visit Diagnoses Not on filedocumented in this encounter Care Teams Die Barber Relationship Specialty Start Date End Date Félix Monroe, MICROBIOLOGY COORDINATOR [address] [facility] [address] [place] [address] PCP - General Nurse Practitioner 08/25/22 documented as of this encounter
--- OUTSIDE RECORDS SUMMARY | 2025-04-11 11:10 | XMS_ITS | Encounter Summary ---
Author Organization [employer] ([place], [place], [place], [place]) Address [address] [place] [address] Care Team Providers Care Chemist Biological Name Role Phone Félix Monroe APRN Primary Care Provider [phone] Encounter Details Date Type Department Care Team (Late st Contact Info) Description 10/10/2020 Transcribed Document [facility] [place] Family Medicine [facility] [place] [address] ProviderMaria Esther MD [address] [place] [address] [id number] Social History Tobacco Use Types Packs/Day Years Used Date Smoking Tobacco: Never Assessed Comments Unknown Sex and Gender Information Value Date Recorded Sex Assigned at Not on file Legal Sex Female 6:53 PM CDT Gender Identity Not on file Sexual Orientation Not on file documented as of this encounter Miscellaneous Notes * Cerner Conversion Note - Maria Esther ProviderMD - 10/10/2020 10:02 AM CDT Patient: CORRIE SMITH Age: 50 Years Sex: Female : 1970 Admit Date 10/07/2020 10:57 Discharge Date 10/10/2020 Primary Care Provider BRENT NOT LISTED Discharge Diagnosis Chronic kidney disease, stage 4 (severe) 10/09/2020 N18.4 ICD-10-CM History of mitral valve replacement 10/09/2020 Z95.2 ICD-10-CM Anticoagulated on Coumadin 10/09/2020 Z79.01 ICD-10-CM Subtherapeutic international normalized ratio (INR) 10/09/2020 R79.1 ICD-10-CM COPD (chronic obstructive pulmonary disease) 10/09/2020 J44.9 ICD-10-CM History of obstructive sleep apnea 10/09/2020 Z86.69 ICD-10-CM HTN - Hypertension 10/09/2020 I10 ICD-10-CM Acute on chronic HFrEF (heart failure with reduced ejection fraction) 10/09/2020 I50.23 ICD-10-CM GERD - Gastro-esophageal reflux disease 10/09/2020 K21.9 ICD-10-CM Studies REPORT TWO VIEW CHEST HISTORY: Congestive heart failure. COMPARISON: 20 October 2019. FINDINGS: The heart is mildly enlarged. Multiple median sternotomy wires are present. Linear density at the left base is probably related to scarring. Lungs are otherwise clear. There is no pneumothorax. The osseous structures are unremarkable. IMPRESSION: 1. Left lower lobe scarring, without definite acute infiltrate. [1] TTE procedure: EC Echo Complete. Patient Status: Routine IP [facility]: Adequate visualization Indications:Coronary artery disease. Allergies - Codeine. Impression: Normal sized left ventricle. Mild left [...] minimal restriction when compared to postoperative TTE. [2] Reason for Hospitalization Ms. Smith is a 50-year-old woman with a past medical history of chronic CHF, COPD with ongoing tobacco abuse, history of obesity status post lap band surgery, hypertension, severe mitral regurgitation status post mitral valve replacement and subsequent repair in 2019, history of prolonged QT syndrome, and stage IV chronic kidney disease who was transferred to [facility] today from the [place] ER for an episode of shortness of breath and acute CHF exacerbation. Patient tells me she has been having waxing and waning dyspnea with exertion and general fatigue over the last year. Over the last 2 weeks she started feeling increasingly short of breath. She does not recall any edema but says she had edema in her back but not her legs. When she arrived to the ED in [place], her oxygen saturation was stable but she had a significantly elevated BNP as well as chest x-ray concerning for developing pulmonary edema and volume overload. She was given IV Bumex and states she felt a lot better after that. A respiratory PCR was negative for Covid but positive for rhinovirus. Troponin was 0.13 but she did not have any chest pain or evidence of new ischemia on EKG at the time of presentation. She states on a good day she could walk about 30 minutes but her good days are few and far between, generally she can walk about 30 feet before fatiguing. Its been much worse over the last 2 weeks with the increased shortness of breath. She does not think she is on fluid pills at home. Dr. Beyer was her cardiothoracic surgeon and Dr. Mac Madison is her general phonograph needle tip maker. Hospitalist is asked to admit. [3] Hospital Course Admitted for acute CHF exacerbation wtih volume overload as above. Cardiology and CT surgery were consulted given her complex history of MVR repair and severe HFrEF. Responded well to diuresis with symptomatic improvement and no prolonged need for supplemental oxygen. Echo confirmed stable/mobile mitral valve despite lack of click on exam. INR subtherapeutic and she was started on Lovenox/Warfarin bridge. Renal function slightly worsened with IV diuresis but improved with transition back to oral diuretics. INR 1.5 today, uptrending since admission. Case d/w cardiology, comfortable wt discharge today with outpatient follow up in the coumadin clinic tomorrow. She will discharge on lovenox/warfarin bridge therapy and will receive today's dose of Lovenox prior to hospital discharge. Counseled at the bedside re: need for medication compliance to prevent severe cardiovascular complications. She requeste Vital Signs T: 36.4 ??C TMIN: 36.4 ??C TMAX: 36.6 ??C HR: 94 RR: 18 BP: 119/84 SpO2: 99% Oxygen Settings (Last) Oxygen Therapy Mode: Room air (10/10/20 05:54:00) Oxygen Flow Rate: 2 Liter/Min (10/08/20 07:20:00) Physical Exam General: Chronically ill appearing adult woman in [facility], resting in bed, spouse at the bedside. HEENT: Normocephalic, atraumatic. PERRLA, anicteric. Nares patent. OMM, speech clear. Neck: No lymphadenopathy or tenderness. Normal ROM. No carotid bruits. CV: RRR, Normal S1/S2 without murmur or gallop. No click on auscultation. No peripheral edema. Pedal pulses 2+. Pulm: CTAB without cough, wheeze, or rhonchi. Globally diminished. Respirations regular and unlabored, on 2L via NC. GI: Nontender, nondistended, bowel sounds normoactive. No organomegaly. : Not examined. Skin: Warm, dry, intact. No rashes. MS: Normal AROM x4, BAEZ. Independently ambulatory at baseline, gait not assessed. Neuro: CN2-12 grossly intact without focal deficits. Normal sensation. Psych: A&Ox4, affect appropriate. Pleasant and conversant. Discharge Disposition Home w/ home health Discharge Follow Up [facility] - Within 2 to 3 days WINSTON GREEN MD-[facility] - Within 5 to 7 days LEONARDO MADISON - Within 1 to 2 weeks Discharge Medications (14) Active albuterol CFC free 90 mcg/inh inhalation aerosol with adapter 2 Puff, PRN, Inhalation, Q6H aspirin 81 mg oral delayed release tablet 81 mg = 1 Tab, Oral, Daily carvedilol 12.5 mg oral tablet 12.5 mg = 1 Tab, Oral, BID Coumadin 5 mg oral tablet 5 mg = 1 Tab, Oral, Daily fluticasone 50 mcg/inh nasal spray 2 [place], PRN, Nasal, Daily Habitrol 21 mg/24 hr transdermal film, extended release 1 Patch, PRN, TransDermal, Daily hydrALAZINE 25 mg oral tablet 25 mg = 1 Tab, Oral, BID isosorbide dinitrate 10 mg oral tablet 10 mg = 1 Tab, Oral, BID Lasix 20 mg oral tablet 20 mg = 1 Tab, Oral, Daily Lovenox 60 mg/0.6 mL injectable solution 60 mg, SubCutaneous, [id number] potassium chloride 10 mEq oral capsule, extended release 10 mEq = 1 Cap, Oral, Daily Protonix 40 mg oral delayed release tablet 40 mg = 1 Tab, Oral, Daily rOPINIRole 2 mg oral tablet 2 mg = 1 Tab, Oral, At Bedtime traZODone 150 mg oral tablet 150 mg = 1 Tab, Oral, At Bedtime Code Status Start: 10/07/20 12:35:00 EDT, Full Code, Continuous Order Condition on Discharge Medically stable Consulting Physicians Dr. Valdez - CT Surgery Dr. Tono Bach - Cardiology Current Diet Order Diet, Adult - Ordered -- Start: 10/08/20 8:49:00 EDT, Cardiac Diet, Low Sodium (2 g Na), Isolation: Standard Precautions Patient Discharge Summary Orders Discharge Activity: Discharge Activity: Activity as tolerated Diet: Discharge Diet: Heart healthy diet Showering/Bathing Instructions: May shower Pending Labs Ordered CBC no Diff (Hemogram) Specimen Type: Blood, AM Draw collect, 10/09/20 4:00:00 EDT, Daily, Lab Collect BMP Basic Metabolic Panel Specimen Type: Blood, AM Draw collect, 10/08/20 4:00:00 EDT, Daily, Lab Collect PT/INR Prothrombin Time Specimen Type: Blood, AM Draw collect, 10/08/20 4:00:00 EDT, Daily, Lab Collect Time Spent on Discharge Over 35 minutes spent on this discharge wtih >50% in counseling and coordination of care. [1] CR Chest 2 Vws; Marie Valle, Diagnostic Roof Truss Machine Tender 10/08/2020 18:23 EDT [2] [facility] [place] 10/07/2020 14:12 EDT [3] Admission H & P; CHRISTIANO SYED NP-FAM 10/07/2020 12:43 EDT Electronically signed by [facility] Conversion Conductor/Engineer Cerner at 10/28/2022 7:25 PM CDT documented in this encounter Plan of Treatment Upcoming Encounters Date Type Department Care Team (Late st Contact Info) Description 04/12/2025 7:30 AM EDT Hospital Encounter [facility] Operating Room 1 [place] [phone] Bill Graham MD [address] [place] [address] [address] [place], [place] [id number] 04/12/2025 7:30 AM EDT Anesthesia Event [facility] Operating Room 1 [place] [phone] Lucio Szymanski MD [address] [place] [address] 04/12/2025 7:30 AM EDT - 04/12/2025 8:55 AM EDT Surgery [facility] Operating Room 1 [place] [address] [place] [address] [place] [address] [address] [place] [address] [phone] (LAPAROSCOPIC PERITONEAL DIALYSIS CATHETER INSERTION) Scheduled Procedures Name Priority Associated Diagnoses Date/Ti me LAPAROSCOPY, WITH PERITONEAL DIALYSIS CATHETER INSERTION Chronic kidney disease, stage V (HCC) 04/12/2025 7:30 AM EDT documented as of this encounter Visit Diagnoses Not on filedocumented in this encounter Care Teams Chemist Biological Relationship Specialty Start Date End Date Félix Monroe, HEAT TREATER APPRENTICE [address] [facility] [address] [place] [address] PCP - General Nurse Practitioner 08/25/22 documented as of this encounter
--- OUTSIDE RECORDS SUMMARY | 2025-04-11 11:10 | XMS_ITS | Encounter Summary ---
Author Organization [employer] ([place], [place], [place], [place]) Address [address] [place] [address] Care Team Providers Care Hack Saw Operator Name Role Phone Monroe Félix Francisco RODRIGUEZ Primary Care Provider Encounter Details Date Type Department Care Team (Late st Contact Info) Description 10/22/2019 Transcribed Document [facility] [place] Family Medicine [facility] [place] [address] ProviderMaria Esther MD [address] [place] [id number] Social History Tobacco Use Types Packs/Day Years Used Date Smoking Tobacco: Never Assessed Comments Unknown Sex and Gender Information Value Date Recorded Sex Assigned at Not on file Legal Sex Female 6:53 PM CDT Gender Identity Not on file Sexual Orientation Not on file documented as of this encounter Miscellaneous Notes * Cerner Conversion Note - Maria Esther Reyes MD - 10/22/2019 11:08 AM CDT Patient: CORRIE SMITH Age: 49 years Sex: Female : 1970 Associated Diagnoses: None Author: SHAWANDA LUIS MD-NEP Basic Information Patient is feeling much better, she will be going home today, her kidney functions continue to improve Review of Systems ROS reviewed as documented [...] Push, See Comment, PRN: Other (See Comment) [place] 0.65% nasal solution: 1 [place], Nasal, Q4H, PRN: Dry Nasal Passages Percocet [...] Comment) rOPINIRole: 1 mg, Oral, At Bedtime Pending Complete Coumadin: 0.5 mg, Oral, Daily Prescriptions Prescribed Coumadin 1 mg oral tablet: 0.5 Tab, Oral, , for 30 Day(s), 0.5mg PO on Wednesday and Wednesday. INR goal 2-3., 10 Tab, 1 Refill(s) Medrol Dosepak 4 mg oral tablet: 1 Packet, Oral, Daily, for 6 Day(s), as directed on package labeling, 21 Tab, 0 Refill(s) Percocet 5/325 oral tablet: 1 Tab, Oral, Q4H, PRN: Pain (Moderate 4-6), 30 Tab, 0 Refill(s) Procardia XL 60 mg oral tablet, extended release: 1 Tab, Oral, Daily, for 30 Day(s), 30 Tab, 0 Refill(s) hydrALAZINE 25 mg oral tablet: 1 Tab, Oral, BID, 60 Tab, 0 Refill(s) Documented Medications Documented Protonix 40 mg oral delayed release tablet: 1 Tab, Oral, Daily, 30 Tab, 0 Refill(s) aspirin 81 mg oral delayed release tablet: 1 Tab, Oral, Daily, 0 Refill(s) nicotine 21 mg/24 hr transdermal film, extended release: 1 Patch, TransDermal, Daily, 0 Refill(s) rOPINIRole 1 mg oral tablet: 1 Tab, Oral, At Bedtime, 90 Tab, 0 Refill(s), Medications (35) Active Scheduled: (17) #NaCl 0.9% [...] 1-Time NaCl 0.65% liq 45 mL 1 [place], Nasal, Q4H ondansetron 4 mg/2 mL inj 4 mg 2 mL, IV Push, Q4H oxyCODONE 5 mg tab 5 mg 1 Tab, Oral, Q6H potassium chloride 10 mEq 50 mL, IV Piggyback, Q1H promethazine 25 mg/1 mL inj 6.25 mg 0.25 mL, IntraVENous, Q6H Problem list: Medical NSTEMI, initial episode of care / SNOMED CT 2993487920 / Confirmed At risk for sleep apnea / IMO [id number] / Confirmed CHF, acute on chronic / SNOMED CT 02726688 / Confirmed Class 3 Systolic GERD - Gastro-esophageal reflux disease / SNOMED CT 6265682638 / Confirmed H/O: TIA / SNOMED CT 078901177 / Confirmed History of laparoscopic adjustable gastric banding / SNOMED CT 8610049131 / Confirmed History of obstructive sleep apnea / IMO 37469034 / Confirmed HTN - Hypertension / SNOMED CT 6832604208 / Confirmed Mitral regurgitation / SNOMED CT 52579576 / Confirmed Prolonged QT interval / SNOMED CT 222494107 / Confirmed 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 122369642 / Confirmed Pulmonary edema / SNOMED CT 19579857 / Confirmed Restless legs syndrome / SNOMED CT 66637814 / Confirmed RF - Renal failure, Stage 4 / SNOMED CT 5773078254 / Confirmed Sleep apnea-before weight loss surgery / SNOMED CT 140356234 / Confirmed, Active Problems (16) At risk [...] Past Medical History: Active HTN - Hypertension (1755261033) Family History: No family history items have [...] Last Charted Minimum Maximum Temp 97.7 (OCT 21:09) 97.7 (OCT 21:) 98.1 (OCT 20 15:00) Apical HR 77 (OCT 21 08:14) 77 (OCT 21 08:14) 85 (OCT 20 20:22) Mon HR 100 (OCT 21:09) 86 (OCT 21 02:20) 105 (OCT 20 20:25) Resp Rate 17 (OCT 21 06:00) 17 (OCT 21 06:00) 18 (OCT 20 22:19) SBP H 143 (OCT 21:) 120 (OCT 20 15:00) H 143 (OCT 21:) DBP H 97 (OCT 21:) 72 (OCT 20 15:00) H 97 (OCT 21:) MAP 111 (OCT 21:) 86 (OCT 20 15:00) 111 (OCT 21:) SpO2 98 (OCT 21:) L 92 (OCT 21 02:20) 98 (OCT 21:09) General: Alert and oriented, No acute distress. [...] review: Labs (Last four charted values) WBC 8.6 (OCT 12) H 10.9 (OCT 11) H 14.2 (OCT 10) H 15.3 (OCT 18) HB L 8.4 (OCT 12) L 7.8 (OCT 11) L 8.5 (OCT 10) L 8.3 (OCT 18) HCT L 25.8 (OCT 12) L 24.1 (OCT 11) L 27.3 (OCT 10) L 25.2 (OCT 09) Plt 215 (OCT 12) 178 (OCT 11) 163 (OCT 19) L 141 (OCT 18) Na L 133 (OCT 12) L 133 (OCT 11) L 133 (OCT 19) L 132 (OCT 18) K 4.0 (OCT 21) L 3.4 (OCT 20) 3.7 (OCT 19) 3.7 (OCT 18) Cl 102 (OCT 21) 102 (OCT 20) 102 (OCT 19) 102 (OCT 18) CO2 23 (OCT 21) 23 (OCT 20) 22 (OCT 19) 22 (OCT 18) BUN H 31 (OCT 12) H 36 (OCT 11) H 41 (OCT 10) H 39 (OCT 18) Cr H 2.70 (OCT 12) H 3.00 (OCT 11) H 3.30 (OCT 10) H 3.70 (OCT 09) Glu R H 129 (OCT 21) 92 (OCT 20) 102 (OCT 19) 99 (OCT 09) Ca L 8.2 (OCT 21) L 7.9 (OCT 20) L 8.3 (OCT 19) 8.4 (OCT 18) Lactic 1.2 (OCT 10) PT H 21.9 (OCT 12) H 30.6 (OCT 11) H 49.6 (OCT 10) H 49.3 (OCT 18) INR H 2.1 (OCT 12) H 2.9 (OCT 11) H 4.7 (OCT 10) H 4.7 (OCT 18) PTT 25.7 (OCT 15) 29.1 (OCT 14) [...] serum creatinine continues to improve down to 2.7 mg/dL. 5.Hemolytic anemia, most probably secondary to mitral valve disease, hematology following. She had a successful mitral valve replacement, Hemoglobin stable, will leave the management to [...] [facility] Operating Room [address] [place] [address] Bill Graham MD [address] [place] [address] [address] 04/12/2025 7:30 AM EDT Anesthesia Event [facility] Operating Room [address] [place] [address] Lucio Szymanski MD [address] [place] [address] 04/12/2025 7:30 AM EDT - 04/12/2025 8:55 AM EDT Surgery [facility] Operating Room [address] [place] [phone] Bill Graham MD [address] [place] [address] [address] [place] [address] (LAPAROSCOPIC PERITONEAL DIALYSIS CATHETER INSERTION) Scheduled Procedures Name Priority Associated Diagnoses Date/Ti me LAPAROSCOPY, WITH PERITONEAL DIALYSIS CATHETER INSERTION Chronic kidney disease, stage V (HCC) 04/12/2025 7:30 AM EDT documented as of this encounter Visit Diagnoses Not on filedocumented in this encounter Care Teams Hack Saw Operator Relationship Specialty Start Date End Date Félix Monroe, RECEIVER BULK SYSTEM [address] [facility] [address] [place] [address] PCP - General Nurse Practitioner 08/25/22 documented as of this encounter
--- OUTSIDE RECORDS SUMMARY | 2025-04-11 11:10 | XMS_ITS | Encounter Summary ---
Author Organization [employer] ([place], [place], [place], [place]) Address [address] [place] [address] Care Team Providers Care Rn Appeals Name Role Phone MonroeFélix APRN Primary Care Provider [phone] Encounter Details Date Type Department Care Team (Late st Contact Info) Description 10/07/2020 Transcribed Document [facility] Family Medicine [address] [place] [address] ProviderMaria Esther MD [address] [place], [place] [phone] Social History Tobacco Use Types Packs/Day Years Used Date Smoking Tobacco: Never Assessed Comments Unknown Sex and Gender Information Value Date Recorded Sex Assigned at Not on file Legal Sex Female 6:53 PM CDT Gender Identity Not on file Sexual Orientation Not on file documented as of this encounter Miscellaneous Notes * Cerner Conversion Note - Maria Esther Reyes MD - 10/07/2020 3:10 PM CDT Patient: CORRIE SMITH Age: 50 years Sex: Female : 1970 Associated Diagnoses: None Author: ELINOR JOHNS, [facility] Ms. Garcia is a 50 yo female admitted with shortness of air. Patient had mitral valve repair and subsequently went on to have a mitral valve replacement in 10/2019, goal INR per cards is 2.5-3.5. Estimated weight ~ 60kg Medication: warfarin Indication: OnX mitral valve replacement Goal INR (per cards): 2.5-3.5 -INR on admission was 1.2 Bridge therapy: Lovenox 1mg/kg daily Labs (Last four charted values) PT H 12.6 (OCT 07) INR 1.2 (OCT 07) Scr at OSH was reportedly 2.5 CrCl ~25ml/min Medications Reviewed: lovenox and ASA - can increase risk of bleeding Date 10/07 INR 1.2 Dose (5) Plan: Will start warfarin 5mg po daily for now. -Will confirm home warfarin dose with patient tomorrow, currently not in room. Follow closely with daily INR. Start lovenox 60mg (~1mg/kg) SQ daily as bridge therapy. -Continue lovenox until INR >1.8, per cardiology. Monitor closely for S&S of bleeding. Thank You, Elinor Johns PharmD documented in this encounter Plan of Treatment Upcoming Encounters Date Type Department Care Team (Late st Contact Info) Description 04/12/2025 7:30 AM EDT Hospital Encounter [facility] Operating Room [address] [place] [address] Bill Graham MD [address] [place] [address] 04/12/2025 7:30 AM EDT Anesthesia Event [facility] Operating Room [address] [place] [address] Lucio Szymanski MD [address] [place], [place] [phone] 04/12/2025 7:30 AM EDT - 04/12/2025 8:[address] [facility] Operating Room [address] [place] [address] Bill Graham MD [address] [place] [address] (LAPAROSCOPIC PERITONEAL DIALYSIS CATHETER INSERTION) Scheduled Procedures Name Priority Associated Diagnoses Date/Ti me LAPAROSCOPY, WITH PERITONEAL DIALYSIS CATHETER INSERTION Chronic kidney disease, stage V (HCC) 04/12/2025 7:30 AM EDT documented as of this encounter Visit Diagnoses Not on filedocumented in this encounter Care Teams Rn Appeals Relationship Specialty Start Date End Date Félix Monroe, SPECIAL LIBRARY LIBRARIAN [address] [place] [address] PCP - General Nurse Practitioner 08/25/22 documented as of this encounter
--- OUTSIDE RECORDS SUMMARY | 2025-04-11 11:10 | XMS_ITS | Encounter Summary ---
Author Organization [employer] ([place], [place], [place], [place]) Address [address] [place] [address] Care Team Providers Care Sterile Processing Technologist Name Role Phone Félix Monroe APRN Primary Care Provider [phone] Encounter Details Date Type Department Care Team (Late st Contact Info) Description 10/22/2019 Transcribed Document [facility] [place] Family Medicine [facility] [place] [address] ProviderMaria Esther MD [address] [place] [address] Social History Tobacco Use Types Packs/Day Years Used Date Smoking Tobacco: Never Assessed Comments Unknown Sex and Gender Information Value Date Recorded Sex Assigned at Not on file Legal Sex Female 6:53 PM CDT Gender Identity Not on file Sexual Orientation Not on file documented as of this encounter Miscellaneous Notes * Cerner Conversion Note - Maria Esther Reyes MD - 10/22/2019 3:44 PM CDT Patient: CORRIE SMITH Age: 49 years Sex: Female : 1970 Associated Diagnoses: None Author: CHRISTIANO KITCHEN MD-INT Results Review General results Most recent results Discharge Information Date of Admission: 10/11/19 Date of Discharge: 10/22/19 Discharge Diagnoses: 1. Acute post-operative hypoxic respiratory failure 2. Mitral valve insufficiency s/p recent annuloplasty 3. 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 Hypertensive urgency 5. Prolonged QT interval 6. LETY on CKD stage IV 7. Hyperbilirubinemia. 8. Chronic systolic CHF 9. Possible pericarditis Procedures: 1. Mechanical mitral valve prosthesis placement 10/15 2. Echo 10/20 Impression: S/P MVR Mild) mitral regurgitation. Visually estimated ejection fraction 40% +/- 5%. Right ventricle appears restrictied/constricted by pericardium. Remnant small circumferential pericardial effusion; thickened pericardium. Pleural effusion noted in apical [address] chest 10/12 IMPRESSION: Minimal left pleural effusion with mild atelectasis in the left lung base. Ascending thoracic aorta at the upper limits of normal in size. Mild cardiomegaly. Postsurgical changes. 4. CT abdomen/pelvis 10/10 IMPRESSION: No acute abnormality. Consultations: 1. Nephrology 2. CT Surgery 3. Cardiology 4. Oncology Discharge Medications: Printed Prescriptions hydrALAZINE (hydrALAZINE 25 mg oral tablet) 1 Tablet(s) Oral Two Times A Day. Refills: 0. methylPREDNISolone (Medrol Dosepak 4 mg oral tablet) 1 Packet(s) Oral Every Day for 6 Day(s). as directed on package labeling. Refills: 0. NIFEdipine (Procardia XL 60 mg oral tablet, extended release) 1 Tablet(s) Oral Every Day for 30 Day(s). Refills: 0. warfarin (Coumadin 1 mg oral tablet) 0.5 Tablet(s) Oral Wednesday, Wednesday for 30 Day(s). 0.5mg PO on Wednesday and Wednesday. INR goal 2-3.. Refills: 1. Other Medications acetaminophen-oxyCODONE (Percocet 5/325 oral tablet) 1 Tablet(s) Oral Every 4 Hours as needed Pain (Moderate 4-6). Refills: 0. aspirin (aspirin 81 mg oral delayed release tablet) 1 Tablet(s) Oral Every Day. nicotine (nicotine 21 mg/24 hr transdermal film, extended release) 1 Patch(es) TransDermal Every Day. pantoprazole (Protonix 40 mg oral delayed release tablet) 1 Tablet(s) Oral Every Day. rOPINIRole (rOPINIRole 1 mg oral tablet) 1 Tablet(s) Oral At Bedtime. Discharge Activity: As tolerated Discharge Diet: Cardiac Physical Examination VS/Measurements Vitals Signs (last 24 hrs) Last Charted Minimum Maximum Temp 97.7 (OCT 21 10:09) 97.7 (OCT 21 10:09) 98 (OCT 20 22:19) Apical HR 77 (OCT 21 08:14) 77 (OCT 21 08:14) 85 (OCT 20 20:22) Mon HR 100 (OCT 21 10:09) 86 (OCT 21 02:20) 105 (OCT 20 20:25) Resp Rate 17 (OCT 21 06:00) 17 (OCT 21 06:00) 18 (OCT 20 22:19) SBP H 143 (OCT 21 10:09) 124 (OCT 21 02:20) H 143 (OCT 21 10:09) DBP H 97 (OCT 21:) 83 (OCT 21 02:20) H 97 (OCT 21:) MAP 111 (OCT 21:) 98 (OCT 21 02:20) 111 (OCT 21 10:09) SpO2 98 (OCT 21:) L 92 (OCT 21 02:20) 98 (OCT 21 10:09) General: Alert and oriented, No acute distress. [...] No swelling, No deformity. Integumentary: Warm, Dry, Intact. Neurologic: Alert, Oriented, Normal sensory, Normal motor function, No focal deficits, Cranial Nerves II-XII are grossly intact. Psychiatric: Cooperative, Appropriate mood & affect. Hospital Course This is a 49 y.o. female with PMH as noted above who presented as a transfer from [facility] for management of acute and severe anemia with evidence of probable hemolysis. The patient has history of mitral valve insufficiency with mitral valve annuloplasty done here in August [address] Surgery. The patient developed dark colored urine and severe fatigue in the couple of days prior to presentation to the hospital. When she presented to [facility] she was noted to have hemoglobin of 5. She had elevated bilirubin levels and acute on chronic kidney injury. She received transfusion of some PRBCs at [facility] and underwent echocardiogram showing ongoing mitral valve insufficiency. She was requested for transfer here. On presentation here she was evaluated by Nephrology regarding the acute kidney injury and followed throughout her stay. With regard to her kidney injury that has improved during her hospital course and she is close to being back to her usual baseline renal function. She was seen in consultation by Oncology regarding the possibility of having a hemolytic anemia. She received further PRBCs transfusion. She had multiple lab studies sent to workup the anemia and ultimately it was felt she likely had hemolysis secondary to valvular dysfunction. After definitive treatment was done for the valve her hemoglobin has remained stable with no further issues. With regard to the mitral valve insufficiency, she was evaluated by CT Surgery. She had RIA to re-evaluate the valve. She was recommended for valve re-do surgery. She agreed and underwent mechanical mitral valve prosthesis placement. She was started on coumadin and has become therapeutic. She has experienced steady clinical improvement since valve replacement. She was initially intubated post-operatively, but successfully extubated and transitioned to the telemetry floor. She was progressively increased on her activity levels. She is now medically improved enough for discharge home. She did develop some mildly increased pain around the chest incision after rolling over on her side the night before last and was started on a medrol dosepak on the advice of CT Surgery which she is to continue on discharge, there may be a component of pericarditis that developed according to my discussion with them. The patient will follow-up with Oncology outpatient for INR management. She was discharged home today in stable condition. Discharge Plan Discharge Summary Plan Discharge Status: improved. Dx and Plan I spent 38 minutes in preparation of this discharge including interview and examination of the patient, counseling, review of documentation/vital signs/labs/testing results, and documentation. documented in this encounter Plan of Treatment Upcoming Encounters Date Type Department Care Team (Late st Contact Info) Description 04/12/2025 7:30 AM EDT Hospital Encounter [facility] Operating Room 1 [place] [address] Bill Graham MD [address] [facility] [address] [place] [address] 04/12/2025 7:30 AM EDT Anesthesia Event [facility] Operating Room 1 [place] [phone] Lucio Szymanski MD [address] [place] [address] 04/12/2025 7:30 AM EDT - 04/12/2025 8:55 AM EDT Surgery [facility] Operating Room 1 [place] [address] Bill Graham MD [address] [facility] [address] [place] [address] (LAPAROSCOPIC PERITONEAL DIALYSIS CATHETER INSERTION) Scheduled Procedures Name Priority Associated Diagnoses Date/Ti me LAPAROSCOPY, WITH PERITONEAL DIALYSIS CATHETER INSERTION Chronic kidney disease, stage V (HCC) 04/12/2025 7:30 AM EDT documented as of this encounter Visit Diagnoses Not on filedocumented in this encounter Care Teams Sterile Processing Technologist Relationship Specialty Start Date End Date Félix Monroe, EM PHYSICIAN [address] [facility] [address] [place] [address] PCP - General Nurse Practitioner 08/25/22 documented as of this encounter
--- OUTSIDE RECORDS SUMMARY | 2025-04-11 11:10 | XMS_ITS | Encounter Summary ---
Author Organization [employer] ([place], [place], [place], [place]) Address [address] [address] Care Team Providers Care Acid Loader Name Role Phone MonroeFélix APRN Primary Care Provider [phone] Encounter Details Date Type Department Care Team (Late st Contact Info) Description 10/09/2020 Transcribed Document [facility] [place] [facility] [place] [address] ProviderMaria Esther MD [address] [place] [id number] Social History Tobacco Use Types Packs/Day Years Used Date Smoking Tobacco: Never Assessed Comments Unknown Sex and Gender Information Value Date Recorded Sex Assigned at Not on file Legal Sex Female 6:53 PM CDT Gender Identity Not on file Sexual Orientation Not on file documented as of this encounter Miscellaneous Notes * Cerner Conversion Note - Historical ProviderMD - 10/09/2020 12:23 PM CDT Patient: CORRIE SMITH Age: 50 Years Sex: Female : 1970 Subjective Seen today in her room. Feeling better. Not requiring oxygen at time of visit, did not meet criteria for home oxygen. Slight bump in Cr today, cardiology transitioning to oral diuretics. INR still not therapeutic, dc on hold. Discussed plans for referral to bariatrics and sleep study w/ patient and spouse. Pt admits to intermittent compliance with her warfarin. Dietary guidelines reviewed, pt states she understands and follows up with the her kidney doctor about diet guidelines. Declined president & ceo consult. Vital Signs T: 36.6 ??C TMIN: 36.3 ??C TMAX: 36.7 ??C HR: 94 RR: 14 BP: 130/88 SpO2: 97% Oxygen Settings (Last) Oxygen Therapy Mode: Room air (10/09/20 08:28:00) Oxygen Flow Rate: 2 Liter/Min (10/08/20 07:20:00) Intake & Output Totals Last 24 Hours (7a-7a) Input Total: 8 mL Output Total: 750 mL Balance: -742 mL Physical Exam General: Chronically ill appearing adult woman in NAD, resting in bed, spouse at the bedside. [...] Psych: A&Ox4, affect appropriate. Pleasant and conversant. Assessment/Plan Acute on Chronic HFrEF - Presented to OSH with elevated BNP, SOB, interstitial markings on CXR - Symptomatic improvement with IV lasix, transferred here for CTS and cardiology - Transition from IV to oral bumex, monitor renal function daily in the setting of CKD4 - Echo with EF 30%, s/p MVR which is functioning normally - CT surgery and cardiology notified of admission - following, appreciate input - Continue supportive care w/ nebs, oxygen - Resume home meds CAD s/p angioplasty - Aware, angioplasty with Dr. Valdez 2019 - Resume home meds, echo largely unchanged w/ EF 30% - CT surgery consulted to follow peripherally MVR s/p replacement and repair - Aware, MVR replacement and subsequent repair with Dr. Valdez 2019 - Resume home meds, echo largely unchanged w/ EF 30% and functioning MV replacement - INR subtherapeutic, resume home dose 5 mg and consult pharmacy for mgmt w/ lovenox bridge - goal >1.8 prior to discharge - CT surgery consulted to follow peripherally CKD4 - Cr at baseline, no change since last inpatient stay - Diuretics as above, daily labs to follow - Consult nephrology as indicated - Transition to oral diuretics, BMP in AM COPD - Aware, not in acute exacerbation - With positive rhinovirus on respiratory PCR - Supportive care with nebs, oxygen - Smoking cessation - walk test prior to discharge. Hypertension - Resume home meds w/ parameters - Diuresis as above - Daily BMP Rhinovirus - Asymptomatic per patient other than fatigue and SOB - Supportive care, isolation precautions per facility policy Tobacco Abuse - Aware, smoking cessation recommended - NRT as desired w/ nicotine patch Prolonged QT interval - Monitor on telemetry, EKGs PRN - Avoid QT prolonging agents GERD - Protonix Obesity s/p lap band - Aware, needs outpatient referral on discharge History of RENETTA - Old sleep study prior to lap band - Needs updated sleep study given daily fatigue and snoring - Refer on discharge to sleep medicine DVT Prophylaxis: warfarin, SCDs Code Status: Full Code Emergency Contact: Spouse, Bola Dispo: LIkely home tomorrow if cleared by cardiology and INR trending up. Eval for home oxygen prior to discharge. Refer for sleep study and to bariatric surgery for outpatient follow up. VTE Prophylaxis - Medical Enoxaparin 60 mg, SubCutaneous, Inj, [id number], Start 10/07/20 16:00:00 EDT (JAS SHEETS) Warfarin 5 mg, Oral, Tab, Daily, Start 10/07/20 18:00:00 EDT (CHRISTIANO SYED) Sequential Compression Device Start: 10/07/20 12:35:00 EDT, Bilateral, Length: Knee High, While patient is in bed, Continuous Order (CHRISTIANO SYED) Medications calcium gluconate calcium gluconate + Sodium Chloride 0.9% intravenous solution 50 mL calcium gluconate + Sodium Chloride 0.9% intravenous solution 50 mL carvedilol, 12.5 mg= 1 Tab, Oral, BID Colace, 100 mg= 1 Cap, Oral, BID Coumadin, 5 mg= 1 Tab, Oral, Daily DuoNeb 0.5 mg-2.5 mg/3 mL inhalation solution, 3 mL, Nebulized Inhalation , RT_Q6H, PRN Ecotrin, 81 mg= 1 Tab, Oral, Daily Habitrol 21 mg/24 hr transdermal film, extended release, 1 Patch, TransDermal, Daily, PRN hydrALAZINE, 25 mg= 1 Tab, Oral, BID isosorbide dinitrate, 10 mg= 1 Tab, Oral, BID Lovenox, 60 mg= 0.6 mL, SubCutaneous, [id number] magnesium sulfate, 2 Gram= 50 mL, IV Piggyback, Daily, PRN magnesium sulfate, 2 Gram= 50 mL, IV Piggyback, Q2H, PRN MiraLax, 17 Gram= 1 Packet, Oral, Daily, PRN Phenergan, 6.25 mg= 0.25 mL, IV Push, Q6H, PRN potassium chloride 10 mEq/50 mL intravenous solution, 10 mEq= 50 mL, IV Piggyback, Q1H, PRN potassium chloride 20 mEq oral tablet, extended release, 20 mEq= 1 Tab, Oral, Q2H, PRN potassium chloride 20 mEq oral tablet, extended release, 60 mEq= 3 Tab, Oral, Q2H, PRN Protonix, 40 mg= 1 Tab, Oral, Daily rOPINIRole, 1 mg= 1 Tab, Oral, At Bedtime sodium phosphate sodium phosphate Tylenol, 650 mg= 2 Tab, Oral, Q4H, PRN Tylenol, 650 mg= 2 Tab, Oral, Q4H, PRN Zofran, 4 mg= 2 mL, IV Push, Q4H, PRN Lab Results Test Name Test Result Date/Time Sodium Level 137 mmol/L 10/09/2020 03:48 EDT Potassium Level 3.4 mmol/L (Low) 10/09/2020 03:48 EDT Chloride Level 104 mmol/L 10/09/2020 03:48 EDT Carbon Dioxide Level 26 mmol/L 10/09/2020 03:48 EDT Anion Gap 10 10/09/2020 03:48 EDT Glucose Level 100 mg/dL 10/09/2020 03:48 EDT Blood Urea Nitrogen 32 mg/dL (High) 10/09/2020 03:48 EDT Creatinine Level 3.00 mg/dL (High) 10/09/2020 03:48 EDT eGFR 20 mL/min/1.73m2 (Low) 10/09/2020 03:48 EDT eGFR NonAfrican 17 mL/min/1.73m2 (Low) 10/09/2020 03:48 EDT Bun/Creatinine 10.7 10/09/2020 03:48 EDT Calcium Level 8.1 mg/dL (Low) 10/09/2020 03:48 EDT WBC 4.2 K/uL (Low) 10/09/2020 03:35 EDT RBC 3.70 Million/uL (Low) 10/09/2020 03:35 EDT Hgb 9.4 g/dL (Low) 10/09/2020 03:35 EDT Hct 30.1 % (Low) 10/09/2020 03:35 EDT MCV 81.4 fL 10/09/2020 03:35 EDT MCH 25.4 pg (Low) 10/09/2020 03:35 EDT MCHC 31.2 Gram/dL (Low) 10/09/2020 03:35 EDT Platelet Count 156 K/uL (Low) 10/09/2020 03:35 EDT MPV see comment 10/09/2020 03:35 EDT RDW 16.1 % (High) 10/09/2020 03:35 EDT Slide Review No 10/09/2020 03:35 EDT PT 14.0 Second(s) (High) 10/09/2020 03:35 EDT INR 1.4 (High) 10/09/2020 03:35 EDT documented in this encounter Plan of Treatment Upcoming Encounters Date Type Department Care Team (Late st Contact Info) Description 04/12/2025 7:30 AM EDT Hospital Encounter [facility] Operating Room 1 [place] [address] Bill Graham MD [address] [place] [address] [address] [place] [id number] 04/12/2025 7:30 AM EDT Anesthesia Event [facility] Operating Room 1 [place] [address] Lucio Szymanski MD [address] [place] [address] 04/12/2025 7:30 AM EDT - 04/12/2025 8:[address] [facility] Operating Room [address] [place] [address] Bill Graham MD [address] [place] [address] [address] [place] [id number] (LAPAROSCOPIC PERITONEAL DIALYSIS CATHETER INSERTION) Scheduled Procedures Name Priority Associated Diagnoses Date/Ti me LAPAROSCOPY, WITH PERITONEAL DIALYSIS CATHETER INSERTION Chronic kidney disease, stage V (HCC) 04/12/2025 7:30 AM EDT documented as of this encounter Visit Diagnoses Not on filedocumented in this encounter Care Teams Acid Loader Relationship Specialty Start Date End Date Félix Monroe, GERIATRIC AIDE [address] [facility] [address] [place] [address] PCP - General Nurse Practitioner 08/25/22 documented as of this encounter
--- OUTSIDE RECORDS SUMMARY | 2025-04-11 11:10 | XMS_ITS | Encounter Summary ---
Author Organization [employer] ([place], [place], [place], [place]) Address [address] [address] Care Team Providers Care Template Layout Worker Name Role Phone Félix Monroe APRN Primary Care Provider [phone] Encounter Details Date Type Department Care Team (Late st Contact Info) Description 10/09/2020 Transcribed Document [facility] [place] Family Medicine [facility] [place] [address] ProviderMaria Esther MD [address] [place], [place] [id number] Social History Tobacco Use Types Packs/Day Years Used Date Smoking Tobacco: Never Assessed Comments Unknown Sex and Gender Information Value Date Recorded Sex Assigned at Not on file Legal Sex Female 6:53 PM CDT Gender Identity Not on file Sexual Orientation Not on file documented as of this encounter Miscellaneous Notes * Cerner Conversion Note - Maria Esther Reyes MD - 10/09/2020 4:53 AM CDT Patient: CORRIE SMITH Age: 50 years Sex: Female : 1970 Associated Diagnoses: None Author: YANE LION MD BASIC Veterinary Meat Inspector: Chava Lockett MD PCP: Dr. Susu García MD Requesting MD: Dr. Estefania Martínez MD Subjective NAD. Resting in bed comfortably in no acute distress. No acute overnight events. Health Status Current medications: Home Medications (10) Active albuterol CFC free 90 mcg/inh inhalation aerosol with adapter 2 Puff, PRN, Inhalation, Q6H aspirin 81 mg oral delayed release tablet 81 mg = 1 Tab, Oral, Daily carvedilol 25 mg oral tablet 25 mg = 1 Tab, Oral, BID fluticasone 50 mcg/inh nasal spray 2 [place], PRN, Nasal, Daily hydrALAZINE 25 mg oral tablet 25 mg = 1 Tab, Oral, BID NIFEdipine (Eqv-Procardia XL) 60 mg oral tablet, extended release 60 mg = 1 Tab, Oral, Daily Protonix 40 mg oral delayed release tablet 40 mg = 1 Tab, Oral, Daily rOPINIRole 2 mg oral tablet 2 mg = 1 Tab, Oral, At Bedtime traZODone 150 mg oral tablet 150 mg = 1 Tab, Oral, At Bedtime warfarin 5 mg oral tablet 5 mg = 1 Tab, Oral, Daily , Medications (27) Active Scheduled: (10) aspirin EC 81 mg tab 81 mg 1 Tab, Oral, Daily bumetanide 1 mg/4 mL inj 1 mg 4 mL, IV Push, BID carvedilol 12.5 mg tab 12.5 mg 1 Tab, Oral, BID docusate sodium 100 mg cap 100 mg 1 Cap, Oral, BID enoxaparin 60 mg/0.6 mL inj 60 mg 0.6 mL, SubCutaneous, [id number] hydrALAZINE 25 mg tab 25 mg 1 Tab, Oral, BID isosorbide dinitrate 10 mg tab 10 mg 1 Tab, Oral, BID pantoprazole EC 40 mg tab 40 mg [...] surgery Objective Intake and Output 24 hour intake 24 hour output: Total 750 ml VS/Measurements Vitals Signs (last 24 hrs) Last Charted Minimum Maximum Temp 97.4 (OCT 09:) 97.4 (OCT 09:) 98 (OCT 08 05:27) Apical HR H 102 (OCT 08 22:50) H 102 (OCT 08 22:50) H 102 (OCT 08 22:50) Mon HR 90 (OCT 09:) 86 (OCT 08 05:27) 102 (OCT 08 22:42) Resp Rate 16 (OCT 09:) 16 (OCT 08 22:42) 18 (OCT 08 05:27) SBP 123 (OCT 09:) 96 (OCT 08 05:27) 127 (OCT 08 22:42) DBP 87 (OCT 09:) 64 (OCT 08 05:27) 87 (OCT 09 02:19) MAP 99 (OCT 09:) 75 (OCT 08 05:27) 103 (OCT 08 22:42) SpO2 94 (OCT 09:) 94 (OCT 08 05:27) 97 (OCT 08 10:03) General: Alert and oriented, No acute distress. [...] of motion, Normal strength. Integumentary: Warm, Dry, Addis. Neurologic: Alert, Oriented. Psychiatric: Cooperative, Appropriate mood & affect. Results Review OCT 09 03:48 137 104 H 32 / 100 L 3.4 26 H 3.00 \ OCT 09 03:48 \ L 9.4 / L 4.2 L 156 / L 30.1 \ ECHO 10/08/19 Impression: Normal sized left [...] Prosthesis on 10/16/2019 Chronic Warfarin Therapy for Head Of Integrated Media Mitral Valve INR Goal of 2.5-3.5 / Current INR subtherapeutic at 1.2 HTN COPD Tobacco Abuse Disorder / Ongoing RENETTA CKD Stage IV SCr 2.5 on admission to OSH PLAN: 10/09/20 Patient doing a lot better. To euvolemic. Wants to go home. Her creatinine bumped to 3. We will stop diuresis today. Continue with Coumadin dosing per pharmacy. I can see her going home tomorrow probably low-dose oral diuretic. Otherwise continue guideline directed heart failure therapy which includes beta-evan, hydralazine and nitrate. She should follow-up with Dr. Lockett in 1 to 2 weeks post discharge. 10/08/20 Patient improving doing well. Diuresed about [...] Encounter [facility] Operating Room 1 [place] [address] Bill Graham MD [address] [place] [address] [address] [place] [id number] 04/12/2025 7:30 AM EDT Anesthesia Event [facility] Operating Room 1 [place] [address] Lucio Szymanski MD [address] [place] [address] 04/12/2025 7:30 AM EDT - 04/12/2025 8:55 AM EDT Surgery [facility] Operating Room 1 [place] [address] Bill Graham MD [address] [place] [address] [address] [place], [place] [id number] (LAPAROSCOPIC PERITONEAL DIALYSIS CATHETER INSERTION) Scheduled Procedures Name Priority Associated Diagnoses Date/Ti me LAPAROSCOPY, WITH PERITONEAL DIALYSIS CATHETER INSERTION Chronic kidney disease, stage V (HCC) 04/12/2025 7:30 AM EDT documented as of this encounter Visit Diagnoses Not on filedocumented in this encounter Care Teams Template Layout Worker Relationship Specialty Start Date End Date Félix Monroe, BLOCK CHOPPER HAND [address] [facility] [address] [place], [place] [id number] PCP - General Nurse Practitioner 08/25/22 documented as of this encounter
--- OUTSIDE RECORDS SUMMARY | 2025-04-11 11:10 | XMS_ITS | Encounter Summary ---
Author Organization [employer] ([place], [place], [place], [place]) Address [address] [place] [address] Care Team Providers Care Concreting Supervisor Name Role Phone Fer Félix Francisco RODRIGUEZ Primary Care Provider [phone] Encounter Details Date Type Department Care Team (Late st Contact Info) Description 08/30/2019 Transcribed Document [facility] [place] [facility] [address] [place] [address] ProviderMaria Esther MD [address], [place] [id number] Social History Tobacco Use Types Packs/Day Years Used Date Smoking Tobacco: Never Assessed Comments Unknown Sex and Gender Information Value Date Recorded Sex Assigned at Not on file Legal Sex Female 6:53 PM CDT Gender Identity Not on file Sexual Orientation Not on file documented as of this encounter Miscellaneous Notes * Cerner Conversion Note - Maria Esther Reyes MD - 08/30/2019 12:49 PM COMPREHENSIVE OPHTHALMOLOGIST On Going Discharge Planning Entered On: 08/30/2019 12:50 EST Performed On: 08/30/2019 12:49 EST by SIMRAN RANDALL, RN-[employer] Team MemberCytogenetic Technician Progress Note Discharge Arrangements : Patient [...] : Other: OP Cardiac Rehab SIMRAN RANDALL RN-[employer] Team Member - 08/30/2019 12:49 EST Narrative Progress Note Narrative Progress Note : Message sent to PCP finder re: Pt request for PCP ref. pt's Mother, Zoë Buchanan - [phone] @ BS Historical Progress Note : CM met w/pt and mother @ BS. NGT, [facility] POD 2. for PCP ref - pt would like Dr Zelaya for PCP in [facility] SIMRAN RANDALL RN-[employer] Team Member - 08/30/19 12:41:58 CM note 08/29/19 Day 1 - Mitral Valve Repair Hx Htn, Mitral Insufficiency, Pul Edema, RENETTA, COPD, Tobacco Use Moderate Readmission Risk CTS/PT Pt on vent; spouse Bola @ bedside. 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 OP Cardiac Rehab discussed and he says he knows she needs it but it will be up to her to do it. SIMRAN RANDALL RN-[employer] Agent Team Member - 08/30/19 12:38:15 OP Cardiac Rehab referral placed to [facility]; DCP - likely home with spouse pending therapy recommendation. ZAINA GUERRERO Rn-[employer] Agent Team Member - 08/29/19 15:30:00 SIMRAN RANDALL RN-[employer] Team Member - 08/30/2019 12:49 EST documented in this encounter Plan of Treatment Upcoming Encounters Date Type Department Care Team (Late st Contact Info) Description 04/12/2025 7:30 AM EDT Hospital Encounter [facility] Operating Room [address] [place] [address] Bill Graham MD [address] [place] [address] [place] [address] 04/12/2025 7:30 AM EDT Anesthesia Event [facility] Operating [address] [place] [address] Lucio Szymanski MD [address] [place] [address] 04/12/2025 7:30 AM EDT - 04/12/2025 8:55 AM EDT Surgery [facility] Operating [address] [place] [id number] Bill Graham MD [address] [facility] [address] [place] [address] (LAPAROSCOPIC PERITONEAL DIALYSIS CATHETER INSERTION) Scheduled Procedures Name Priority Associated Diagnoses Date/Ti me LAPAROSCOPY, WITH PERITONEAL DIALYSIS CATHETER INSERTION Chronic kidney disease, stage V (HCC) 04/12/2025 7:30 AM EDT documented as of this encounter Visit Diagnoses Not on filedocumented in this encounter Care Teams Concreting Supervisor Relationship Specialty Start Date End Date Félix Monroe, WRIST LINER [address] [facility] [address] [place] [address] PCP - General Nurse Practitioner 08/25/22 documented as of this encounter
--- OUTSIDE RECORDS SUMMARY | 2025-04-11 11:10 | XMS_ITS | Encounter Summary ---
Author Organization [employer] ([place], [place], [place], [place]) Address [address] [address] Care Team Providers Care Process Control Technician Name Role Phone Fer Félix Francisco RODRIGUEZ Primary Care Provider [phone] Encounter Details Date Type Department Care Team (Late st Contact Info) Description 10/22/2019 Transcribed Document [facility] [place] [address] [place] [address] ProviderMaria Esther MD [address], [place] [id number] Social History Tobacco Use Types Packs/Day Years Used Date Smoking Tobacco: Never Assessed Comments Unknown Sex and Gender Information Value Date Recorded Sex Assigned at Not on file Legal Sex Female 6:53 PM CDT Gender Identity Not on file Sexual Orientation Not on file documented as of this encounter Miscellaneous Notes * Cerner Conversion Note - Historical ProviderMD - 10/22/2019 4:00 AM CDT Height and Weight, Routine Entered On: 10/22/2019 4:13 EDT Performed On: 10/22/2019 4:00 EDT by Wili Cabrera Care Asst-Health Unit Coord Height and Weight, Routine Routine Weight Source : Bed scale Routine Weight Entry Format : [place] Routine Weight, Pounds : 153 lb Routine Weight, Ounces : 3 oz Routine Weight Calculation : 69.63 kg Height Source : Chart Height Entry Format : [place] Height, Feet : 5 ft Height, Inches : 6 Inch Clinical Height : 167.64 cm Body Surface Area (BSA), Routine : 1.79 m2 Body Mass Index (BMI), Routine : 24.78 kg/m2 Wili Cabrera Care Asst-Health Unit Coord - 10/22/2019 4:13 EDT documented in this encounter Plan of Treatment Upcoming Encounters Date Type Department Care Team (Late st Contact Info) Description 04/12/2025 7:30 AM EDT Hospital Encounter [facility] Operating Room [address] [place] [id number] [place] [address] [place] [address] 04/12/2025 7:30 AM EDT Anesthesia Event [facility] [address] [place] [address] Lucio Szymanski MD [address] [place] [address] 04/12/2025 7:30 AM EDT - 04/12/2025 8:55 AM EDT Surgery [facility] [address] [place] [address] Bill Graham MD [address] [place] [address] (LAPAROSCOPIC PERITONEAL DIALYSIS CATHETER INSERTION) Scheduled Procedures Name Priority Associated Diagnoses Date/Ti me LAPAROSCOPY, WITH PERITONEAL DIALYSIS CATHETER INSERTION Chronic kidney disease, stage V (HCC) 04/12/2025 7:30 AM EDT documented as of this encounter Visit Diagnoses Not on filedocumented in this encounter Care Teams Process Control Technician Relationship Specialty Start Date End Date Félix Monroe, GUT CLEANER [address] [facility] [address] [place], [place] [id number] PCP - General Nurse Practitioner 08/25/22 documented as of this encounter
--- OUTSIDE RECORDS SUMMARY | 2025-04-11 11:10 | XMS_ITS | Encounter Summary ---
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 Name Role Phone Monroe Félix Francisco RODRIGUEZ Primary Care Provider [phone] Encounter Details Date Type Department Care Team (Late st Contact Info) Description 10/10/2020 Transcribed Document [facility] [place] [address] ProviderMaria Esther MD [address], [place] [address] Social History Tobacco Use Types Packs/Day Years Used Date Smoking Tobacco: Never Assessed Comments Unknown Sex and Gender Information Value Date Recorded Sex Assigned at Not on file Legal Sex Female 6:53 PM CDT Gender Identity Not on file Sexual Orientation Not on file documented as of this encounter Miscellaneous Notes * Cerner Conversion Note - Maria Esther Reyes MD - 10/10/2020 9:58 AM CDT Patient Education Materials Follows: Heart Failure, Self Care Heart failure is a serious condition. This document explains the things you need to do to take care of yourself after a heart failure diagnosis. You may be asked to change your diet, take certain medicines, and make other lifestyle changes in order to stay as healthy as possible. Your health care provider may also give you more specific instructions. If you have problems or questions, contact your health care provider. What are the risks? Having heart failure puts you at higher risk for certain problems. These problems can get worse if you do not take good care of yourself. Problems may include: ??? Blood clotting problems. This may cause a stroke. ??? Damage to the kidneys, liver, or lungs. ??? Abnormal heart rhythms. Supplies needed: ??? Scale for monitoring weight. ??? Blood pressure monitor. ??? Notebook. ??? Medicines. How to care for yourself when you have heart failure Medicines Take yyjf-whx-irddqqs and prescription medicines only as told by your health care provider. Medicines reduce the workload of your heart, slow the progression of heart failure, and improve symptoms. Take your medicines every day. ??? Do not stop taking your medicine unless your health care provider tells you to do so. ??? Do not skip any dose of medicine. ??? Refill your prescriptions before you run out of medicine. Eating and drinking ??? Eat heart-healthy foods. Talk with a dietitian to make an eating plan that is right for you. ? Choose foods that contain no trans fat and are low in saturated fat and cholesterol. Healthy choices include fresh or frozen fruits and vegetables, fish, lean meats, legumes, fat-free or low-fat dairy products, and whole-grain or high-fiber foods. ? Limit salt (sodium) if told by your health care provider. Sodium restriction may reduce symptoms of heart failure. Ask a dietitian to recommend heart-healthy seasonings. ? Use healthy cooking methods instead of frying. Healthy methods include roasting, grilling, broiling, baking, poaching, steaming, and stir-frying. ??? Limit your fluid intake, if directed by your health care provider. Fluid restriction may reduce symptoms of heart failure. Alcohol use ??? Do not drink alcohol if: ? Your health care provider tells you not to drink. ? Your heart was damaged by alcohol, or you have severe heart failure. ? You are , may be , or are planning to become . ??? If you drink alcohol: ? Limit how much you use to: ? 0?1 drink a day for women. ? 0?2 drinks a day for men. ? Be aware of how much alcohol is in your drink. In the [place] one drink equals one 12 oz bottle of beer (355 mL), one 5 oz glass of wine (148 mL), or one 1? oz glass of hard liquor (44 mL). Lifestyle ??? Do not use any products that contain nicotine or tobacco, such as cigarettes, e-cigarettes, and chewing tobacco. If you need help quitting, ask your health care provider. ? Do not use nicotine gum or patches before talking to your health care provider. ??? Do not use illegal drugs. ??? Work with your health care provider to safely reach the right body weight. ??? Do physical activity if told by your health care provider. Talk to your health care provider before you begin an exercise if: ? You are an older adult. ? You have severe heart failure. ??? Learn to manage stress. If you need help to do this, ask your health care provider. ??? Participate in or seek rehabilitation as needed to keep or improve your independence and quality of life. ??? Plan rest periods when you get tired. Monitoring important information ??? Weigh yourself every day. This will help you to notice if too much fluid is building up in your body. ? Weigh yourself every morning after you urinate and before you eat breakfast. ? Wear the same amount of clothing each time you weigh yourself. ? Record your daily weight. Provide your health care provider with your weight record. ??? Monitor and record your pulse and blood pressure as told by your health care provider. Dealing with extreme temperatures ??? If the weather is extremely hot: ? Avoid vigorous physical activity. ? Use air conditioning or fans, or find a cooler location. ? Avoid caffeine and alcohol. ? Wear loose-fitting, lightweight, and light-colored clothing. ??? If the weather is extremely cold: ? Avoid vigorous activity. ? Layer your clothes. ? Wear mittens or gloves, a hat, and a scarf when you go outside. ? Avoid alcohol. Follow these instructions at home: ??? Stay up to date with vaccines. Pneumococcal and flu (influenza) vaccines are especially important in preventing infections of the airways. ??? Keep all follow-up visits as told by your health care provider. This is important. Contact a health care provider if you: ??? Have a rapid weight gain. ??? Have increasing shortness of breath. ??? Are unable to participate in your usual physical activities. ??? Get tired easily. ??? Cough more than normal, especially with physical activity. ??? Lose your appetite or feel nauseous. ??? Have any swelling or more swelling in areas such as your hands, feet, ankles, or abdomen. ??? Are unable to sleep because it is hard to breathe. ??? Feel like your heart is beating quickly (palpitations). ??? Become dizzy or light-headed when you stand up. Get help right away if you: ??? Have trouble breathing. ??? Notice or your family notices a change in your awareness, such as having trouble staying awake or concentrating. ??? Have pain or discomfort in your chest. ??? Have an episode of fainting (syncope). These symptoms may represent a serious problem that is an emergency. Do not wait to see if the symptoms will go away. Get medical help right away. Call your local emergency services (911 in the [place] Do not drive yourself to the hospital. Summary ??? Heart failure is a serious condition. To care for yourself, you may be asked to change your diet, take certain medicines, and make other lifestyle changes. ??? Take your medicines every day. Do not stop taking them unless your health care provider tells you to do so. ??? Eat heart-healthy foods, such as fresh or frozen fruits and vegetables, fish, lean meats, legumes, fat-free or low-fat dairy products, and whole-grain or high-fiber foods. ??? Ask your health care provider if you have any alcohol restrictions. You may have to stop drinking alcohol if you have severe heart failure. ??? Contact your health care provider if you notice problems, such as rapid weight gain or a fast heartbeat. Get help right away if you faint, or have chest pain or trouble breathing. This information is not intended to replace advice given to you by your health care provider. Make sure you discuss any questions you have with your health care provider. Document Revised: 10/10/2019 Document Reviewed: 10/11/2019 [employer] Patient Education ? 2020 [employer] Hematology Bleeding Precautions When on Anticoagulant Therapy, Adult Anticoagulant therapy, also called blood thinner therapy, is medicine that helps to prevent and treat blood clots. The medicine works by stopping blood clots from forming or growing. Blood clots that form in your blood vessels can be dangerous. They can break loose and travel to the heart, lungs, or brain. This increases the risk of a heart attack, stroke, or blocked lung artery (pulmonary embolism). Anticoagulants also increase the risk of bleeding. Try to protect yourself from cuts and other injuries that can cause bleeding. It is important to take anticoagulants exactly as told by your health care provider. Why do I need to be on anticoagulant therapy? You may need this medicine if you are at risk of developing a blood clot. Conditions that increase your risk of a blood clot include: ??? Being born with heart disease or a heart malformation (congenital heart disease). ??? Developing heart disease. ??? Having had surgery, such as valve replacement. ??? Having had a serious accident or other type of severe injury (trauma). ??? Having certain types of cancer. ??? Having certain diseases that can increase blood clotting. ??? Having a high risk of stroke or heart attack. ??? Having atrial fibrillation (AF). What are the common anticoagulant medicines? There are several types of anticoagulant medicines. The most common types are: ??? Medicines that you take by mouth (oral medicines), such as: ? Warfarin. ? Novel oral anticoagulants (NOACs), such as: ? Direct thrombin inhibitors (dabigatran). ? Factor Xa inhibitors (apixaban, edoxaban, and rivaroxaban). ??? Injections, such as: ? Unfractionated heparin. ? Low molecular weight heparin. These anticoagulants work in different ways to prevent blood clots. They also have different risks and side effects. What do I need to remember while on anticoagulant therapy? Taking anticoagulants ??? Take your medicine at the same time every day. If you forget to take your medicine, take it as soon as you remember. Do not double your dosage of medicine if you miss a whole day. Take your normal dose and call your health care provider. ??? Do not stop taking your medicine unless your health care provider approves. Stopping the medicine can increase your risk of developing a blood clot. Taking other medicines ??? Take rczp-lgv-kkaahof and prescriptions medicines only as told by your health care provider. ??? Do not take wbwc-hea-zduwvzk NSAIDs, including aspirin and ibuprofen, while you are on anticoagulant therapy. These medicines increase your risk of dangerous bleeding. ??? Get approval from your health care provider before you start taking any new medicines, vitamins, or herbal products. Some of these could interfere with your therapy. General instructions ??? Keep all follow-up visits as told by your health care provider. This is important. ??? If you are or trying to get , talk with a health care provider about anticoagulants. Some of these medicines are not safe to take during . ??? Tell all health care providers, including your dentist, that you are on anticoagulant therapy. It is especially important to tell providers before you have any surgery, medical procedures, or dental work done. What precautions should I take? Be very careful when using knives, scissors, or other sharp objects. ??? Use an electric razor instead of a blade. ??? Do not use toothpicks. ??? Use a soft-bristled toothbrush. [place] your teeth gently. ??? Always wear shoes outdoors and wear slippers indoors. ??? Be careful when cutting your fingernails and toenails. ??? Place bath mats in the bathroom. If possible, install handrails as well. ??? Wear gloves while you do yard work. ??? Wear your seat belt. ??? Prevent falls by removing loose rugs and extension cords from areas where you walk. Use a cane or walker if you need it. ??? Avoid constipation by: ? Drinking enough fluid to keep your urine clear or pale yellow. ? Eating foods that are high in fiber, such as fresh fruits and vegetables, whole grains, and beans. ? Limiting foods that are high in fat and processed sugars, such as fried and sweet foods. ??? Do not play contact sports or participate in other activities that have a high risk for injury. What other precautions are important if on warfarin therapy? If you are taking a type of anticoagulant called warfarin, make sure you: ??? Work with a diet and human resources specialist (dietitian) to make an eating plan. Do not make any sudden changes to your diet after you have started your eating plan. ??? Do not drink alcohol. It can interfere with your medicine and increase your risk of an injury that causes bleeding. ??? Get regular blood tests as told by your health care provider. What are some questions to ask my health care provider? Why do I need anticoagulant therapy? What is the best anticoagulant therapy for my condition? How long will I need anticoagulant therapy? What are the side effects of anticoagulant therapy? When should I take my medicine? What should I do if I forget to take it? Will I need to have regular blood tests? Do I need to change my diet? Are there foods or drinks that I should avoid? What activities are safe for me? What should I do if I want to get ? Contact a health care provider if: ??? You miss a dose of medicine: ? And you are not sure what to do. ? For more than one day. ??? You have: ? Menstrual bleeding that is heavier than normal. ? Bloody or brown urine. ? Easy bruising. ? Black and tarry stool or bright red stool. ? Side effects from your medicine. ??? You feel weak or dizzy. ??? You become . Get help right away if: ??? You have bleeding that will not stop within 20 minutes from: ? The nose. ? The gums. ? A cut on the skin. ??? You have a severe headache or stomachache. ??? You vomit or cough up blood. ??? You fall or hit your head. Summary ??? Anticoagulant therapy, also called blood thinner therapy, is medicine that helps to prevent and treat blood clots. ??? Anticoagulants work in different ways to prevent blood clots. They also have different risks and side effects. ??? Talk with your health care provider about any precautions that you should take while on anticoagulant therapy. This information is not intended to replace advice given to you by your health care provider. Make sure you discuss any questions you have with your health care provider. Document Revised: 10/18/2019 Document Reviewed: 09/14/2017 [employer] Patient Education ? 2020 [employer] Nephrology Chronic Kidney Disease, Adult Chronic kidney disease (CKD) occurs when the kidneys become damaged slowly over a long period of time. The kidneys are a pair of organs that do many important jobs in the body, including: ??? Removing waste and extra fluid from the blood to make urine. ??? Making hormones that maintain the amount of fluid in tissues and blood vessels. ??? Maintaining the right amount of fluids and chemicals in the body. A small amount of kidney damage may not cause problems, but a large amount of damage may make it hard or impossible for the kidneys to work the way they should. If steps are not taken to slow down kidney damage or to stop it from getting worse, the kidneys may stop working permanently (end-stage renal disease or ESRD). Most of the time, CKD does not go away, but it can often be controlled. People who have CKD are usually able to live normal lives. What are the causes? The most common causes of this condition are diabetes and high blood pressure (hypertension). Other causes include: ??? Heart and blood vessel (cardiovascular) disease. ??? Kidney diseases, such as: ? Glomerulonephritis. ? Interstitial nephritis. ? Polycystic kidney disease. ? Renal vascular disease. ??? Diseases that affect the immune system. ??? Genetic diseases. ??? Medicines that damage the kidneys, such as anti-inflammatory medicines. ??? Being around or being in contact with poisonous (toxic) substances. ??? A kidney or urinary infection that occurs again and again (recurs). ??? Vasculitis. This is swelling or inflammation of the blood vessels. ??? A problem with urine flow that may be caused by: ? Cancer. ? Having kidney stones more than one time. ? An enlarged prostate, in males. What increases the risk? You are more likely to develop this condition if you: ??? Are older than age 60. ??? Are female. ??? Are -[place], , , , or . ??? Are a current or former smoker. ??? Are obese. ??? Have a family history of kidney disease or failure. ??? Often take medicines that are damaging to the kidneys. What are the signs or symptoms? Symptoms of this condition include: ??? Swelling (edema) of the face, legs, ankles, or feet. ??? Tiredness (lethargy) and having less energy. ??? Nausea or vomiting. ??? Confusion or trouble concentrating. ??? Problems with urination, such as: ? Painful or burning feeling during urination. ? Decreased urine production. ? Frequent urination, especially at night. ? Bloody urine. ??? Muscle twitches and cramps, especially in the legs. ??? Shortness of breath. ??? Weakness. ??? Loss of appetite. ??? Metallic taste in the mouth. ??? Trouble sleeping. ??? Dry, itchy skin. ??? A low blood count (anemia). ??? Pale lining of the eyelids and surface of the eye (conjunctiva). Symptoms develop slowly and may not be obvious until the kidney damage becomes severe. It is possible to have kidney disease for years without having any symptoms. How is this diagnosed? This condition may be diagnosed based on: ??? Blood tests. ??? Urine tests. ??? Imaging tests, such as an ultrasound or CT scan. ??? A test in which a sample of tissue is removed from the kidneys to be examined under a microscope (kidney biopsy). These test results will help your health care provider determine how serious the CKD is. How is this treated? There is no cure for most cases of this condition, but treatment usually relieves symptoms and prevents or slows the progression of the disease. Treatment may include: ??? Making diet changes, which may require you to avoid alcohol, salty foods (sodium), and foods that are high in potassium, calcium, and protein. ??? Medicines: ? To lower blood pressure. ? To control blood glucose. ? To relieve anemia. ? To relieve swelling. ? To protect your bones. ? To improve the balance of electrolytes in your blood. ??? Removing toxic waste from the body through types of dialysis, if the kidneys can no longer do their job (kidney failure). ??? Managing any other conditions that are causing your CKD or making it worse. Follow these instructions at home: Medicines ??? Take xaxy-mfd-trohpwg and prescription medicines only as told by your health care provider. The dose of some medicines that you take may need to be adjusted. ??? Do not take any new medicines unless approved by your health care provider. Many medicines can worsen your kidney damage. ??? Do not take any vitamin and mineral supplements unless approved by your health care provider. Many nutritional supplements can worsen your kidney damage. General instructions ??? Follow your prescribed diet as told by your health care provider. ??? Do not use any products that contain nicotine or tobacco, such as cigarettes and e-cigarettes. If you need help quitting, ask your health care provider. ??? Monitor and track your blood pressure at home. Report changes in your blood pressure as told by your health care provider. ??? If you are being treated for diabetes, monitor and track your blood sugar (blood glucose) levels as told by your health care provider. ??? Maintain a healthy weight. If you need help with this, ask your health care provider. ??? Start or continue an exercise plan. Exercise at least 30 minutes a day, 5 days a week. ??? Keep your immunizations up to date as told by your health care provider. ??? Keep all follow-up visits as told by your health care provider. This is important. Where to find more information ??? [place] [employer] of Kidney Patients: www.aakp.org ??? National Kidney Foundation: www.kidney.org ??? [place] [employer]: www.akfinc.org ??? [employer] [facility]: www.lifeoptions.org and www.kidneyschool.org Contact a health care provider if: ??? Your symptoms get worse. ??? You develop new symptoms. Get help right away if: ??? You develop symptoms of ESRD, which include: ? Headaches. ? Numbness in the hands or feet. ? Easy bruising. ? Frequent hiccups. ? Chest pain. ? Shortness of breath. ? Lack of menstruation, in women. ??? You have a fever. ??? You have decreased urine production. ??? You have pain or bleeding when you urinate. Summary ??? Chronic kidney disease (CKD) occurs when the kidneys become damaged slowly over a long period of time. ??? The most common causes of this condition are diabetes and high blood pressure (hypertension). ??? There is no cure for most cases of this condition, but treatment usually relieves symptoms and prevents or slows the progression of the disease. Treatment may include a combination of medicines and lifestyle changes. This information is not intended to replace advice given to you by your health care provider. Make sure you discuss any questions you have with your health care provider. Document Revised: 06/10/2018 Document Reviewed: 08/05/2017 [employer] Patient Education ? 2019 [employer] Neurology Warfarin Coagulopathy Warfarin coagulopathy refers to bleeding that may occur as a complication of the medicine warfarin. Warfarin is a blood thinner (anticoagulant). Anticoagulants prevent dangerous blood clots. Bleeding is the most common and most serious complication of warfarin. While taking warfarin, you will need to have blood tests (prothrombin tests, or PT tests) regularly to measure your blood clotting time. The PT test results will be reported as the International Normalized Ratio (INR). The INR tells your health care provider whether your dosage of warfarin needs to be changed. The longer it takes your blood to clot, the higher the INR. Your risk of warfarin coagulopathy increases as your INR increases. What are the causes? This condition may be caused by: ??? Taking too much warfarin (overdose). ??? Underlying medical conditions. ??? Changes to your diet. ??? Interactions with medicines, supplements, or alcohol. What are the signs or symptoms? Warfarin coagulopathy may cause bleeding from any tissue or organ. Symptoms may include: ??? Bleeding from the gums. ??? A nosebleed that is not easily stopped. ??? Blood in stool. This may look like bright red, dark, or black, tarry stools. ??? Blood in urine. This may look like pink, red, or brown urine. ??? Unusual bruising or bruising easily. ??? A cut that does not stop bleeding within 10 minutes. ??? Coughing up blood. ??? Vomiting blood. ??? Feeling nauseous for longer than 1 day. ??? Broken blood vessels in the eye (subconjunctival hemorrhage). This may look like a bright red or dark red patch on the white part of the eye. ??? Abdominal or back pain with or without bruising. ??? Sudden, severe headache. ??? Sudden weakness or numbness of the face, arm, or leg, especially on one side of the body. ??? Sudden confusion. ??? Difficulty speaking (aphasia) or understanding speech. ??? Sudden trouble seeing out of one or both eyes. ??? Unexpected difficulty walking. ??? Dizziness. ??? Loss of balance or coordination. ??? Unusual vaginal bleeding. ??? Swelling or pain at an injection site. ??? Skin scarring due to tissue (necrosis) of fatty tissue. This may cause pain in the waist, thighs, or buttocks. This is more common among women. How is this diagnosed? This condition is diagnosed after your health care provider places you on warfarin and then finds out how it affects your blood's ability to clot. Prothrombin time (PT) clotting tests are used to monitor your clotting factor. These tests also help your health care provider to find the warfarin dose that is best for you. How is this treated? This condition is treated with vitamin K. Vitamin K helps the blood to clot. You may receive vitamin K every 12 hours, or as needed. You may also receive donated plasma (transfusions of fresh frozen plasma). Plasma is the liquid part of blood, and contains substances that help the blood clot. Follow these instructions at home: Medicines ??? Take warfarin exactly as told by your health care provider. This ensures that you avoid bleeding or clots that could result in serious injury, pain, or disability. ??? Take your medicine at the same time every day. If you forget to take your dose of warfarin, take it as soon as you remember on that day. If you do not remember to take it on that day, do not take an extra dose the next day. ??? Contact your health care provider if you miss a dose or take an extra dose. Do not change your dosage on your own to make up for missed or extra doses. ??? Talk with your health care provider or your pharmacist before starting or stopping any new medicines. Many prescription and ghoh-dhr-plesfyj medicines can interfere with warfarin. This includes ijce-cen-lbndgjk vitamins, dietary supplements, herbal medicines, and pain medicines. Your warfarin dosage may need to be adjusted. Eating and drinking ??? It is important to maintain a normal, balanced diet while taking warfarin. Avoid major changes in your diet. If you are planning to change your diet, talk with your health care provider before making changes. ??? Your health care provider may recommend that you work with a diet and human resources specialist (dietitian). ??? Vitamin K makes warfarin less effective. It is found in many foods. Eat a consistent amount of foods that contain vitamin K. For example, you may decide to eat 2 vitamin K-containing foods each day. Your warfarin dose is set according to the amount of vitamin K in your blood. ??? Eat a consistent amount of foods that contain vitamin K. Vitamin K makes warfarin less effective, so eating the same amount each day enables your health care provider to set the correct dose of warfarin. You may decide to eat 2 vitamin K-containing foods each day. Tests ??? Make sure to have PT tests at least once every 4?6 weeks for the entire time you are taking warfarin. ??? Ask your health care provider what your target INR range is. Make sure you always know your target range. If your INR is not in your target range, your health care provider may adjust your dosage. Preventing bleeding and injury ??? Some common aohn-rxi-vdnzkny medicines and supplements may increase the risk of bleeding while taking warfarin. They include: ? Acetaminophen. ? Aspirin. ? NSAIDs, such as ibuprofen or naproxen. ? Vitamin E. ??? Avoid situations that cause bleeding. You may bleed more easily while taking warfarin. To limit bleeding, take the following actions: ? Use a softer toothbrush. ? Floss with waxed floss, not unwaxed floss. ? Shave with an electric razor, not with a blade. ? Limit your use of sharp objects. ? Avoid potentially harmful activities, such as contact sports. General instructions ??? Wear or carry identification that says that you are taking warfarin. ??? Make sure that all health care providers, including your dentist, know that you are taking warfarin. ??? If you need surgery, tell your health care provider that you are taking warfarin. You may have to stop taking warfarin before your surgery. ??? If you plan to breastfeed or become while taking warfarin, talk with your health care provider. ??? Avoid alcohol, tobacco, and drugs. ? If your health care provider approves, limit alcohol intake to no more than 1 drink a day for non- women and 2 drinks a day for men. One drink equals 12 oz. of beer, 5 oz. of wine, or 1? oz. of hard liquor. ? If you change the amount of nicotine, tobacco, or alcohol you use, tell your health care provider. ??? Keep all follow-up visits and lab visits as told by your health care provider. This is very important because warfarin is a medicine that needs to be closely monitored. Contact a health care provider if: ??? You miss a dose. ??? You take an extra dose. ??? You plan to have any kind of surgery or procedure. ??? You are unable to take your medicine due to nausea, vomiting, or diarrhea. ??? You have any major changes in your diet, or you plan to make major changes in your diet. ??? You start or stop any cmof-qhn-adwjfbd medicine, prescription medicine, or dietary supplement. ??? You become , plan to become , or think you may be . ??? You have menstrual periods that are heavier than usual, or unusual vaginal bleeding. ??? You have unusual bruising. ??? You lose your appetite. ??? You have a fever. ??? You have diarrhea that lasts for more than 24 hours. Get help right away if: ??? You develop symptoms of an allergic reaction, such as: ? Swelling of the lips, face, tongue, mouth, or throat. ? Rash. ? Itching. ? Itchy, red, swollen areas of skin (hives). ? Trouble breathing. ? Chest tightness. ??? You have any symptoms of stroke. BEFAST is an easy way to remember the main warning signs of stroke: ? B - Balance. Signs are dizziness, sudden trouble walking, or loss of balance. ? E - Eye. Signs are trouble seeing or a sudden change in vision. ? F - Face. Signs are sudden weakness or numbness of the face, or the face or eyelid drooping on one side. ? A - Arm. Signs are weakness or numbness in an arm. This happens suddenly and usually on one side of the body. ? S - Speech. Signs are trouble speaking, slurred speech, or trouble understanding speech. ? T - Time. Time to call emergency services. Write down the time your symptoms started. ??? You have other signs of stroke, such as: ? A sudden, severe headache with no known cause. ? Nausea or vomiting. ? Seizure. ??? You have signs or symptoms of a blood clot, such as: ? Pain or swelling in your leg or arm. ? Skin that is red or warm to the touch on your arm or leg. ? Shortness of breath or difficulty breathing. ? Chest pain. ? Unexplained fever. ??? You have: ? A fall or have an accident, especially if you hit your head. ? Blood in your urine. Your urine may look reddish, pinkish, or tea-colored. ? Blood in your stool. Your stool may be black or bright red. ? Bleeding that does not stop after applying pressure to the area for 30 minutes. ? Severe pain in your joints or back. ? Purple or blue toes. ? Skin ulcers that do not go away. ??? You vomit blood or cough up blood. The blood may be bright red, or it may look like coffee grounds. These symptoms may represent a serious problem that is an emergency. Do not wait to see if the symptoms will go away. Get medical help right away. Call your local emergency services (911 in the [place] Do not drive yourself to the hospital. Summary ??? Warfarin needs to be closely monitored with blood tests. It is very important to keep all lab visits and follow-up visits with your health care provider. Make sure you know your target INR range and your warfarin dosage. ??? Monitor how much vitamin K you eat every day. Try to eat the same amount every day. ??? Wear or carry identification that says that you are taking warfarin. ??? Take warfarin at the same time every day. Call your health care provider if you miss a dose or if you take an extra dose. Do not change the dosage of warfarin on your own. ??? Know the signs and symptoms of blood clots, bleeding, and stroke. Know when to get emergency medical help. This information is not intended to replace advice given to you by your health care provider. Make sure you discuss any questions you have with your health care provider. Document Revised: 06/10/2018 Document Reviewed: 09/15/2017 [employer] Patient Education ? 2020 [employer]. Pharmacology Vitamin K Foods and Warfarin Warfarin is a blood thinner (anticoagulant). Anticoagulant medicines help prevent the formation of blood clots. These medicines work by decreasing the activity of vitamin K, which promotes normal blood clotting. When you take warfarin, problems can occur from suddenly increasing or decreasing the amount of vitamin K that you eat from one day to the next. Problems may include: ??? Blood clots. ??? Bleeding. What general guidelines do I need to follow? To avoid problems when taking warfarin: ??? Eat a balanced diet that includes: ? Fresh fruits and vegetables. ? Whole grains. ? Low-fat dairy products. ? Lean proteins, such as fish, eggs, and lean cuts of meat. ??? Keep your intake of vitamin K consistent from day to day. To do this: ? Avoid eating large amounts of vitamin K one day and low amounts of vitamin K the next day. ? If you take a multivitamin that contains vitamin K, be sure to take it every day. ? Know which foods contain vitamin K. Use the lists below to understand serving sizes and the amount of vitamin K in one serving. ??? Avoid major changes in your diet. If you are going to change your diet, talk with your health care provider before making changes. ??? Work with a human resources specialist (dietitian) to develop a meal plan that works best for you. High vitamin K foods Foods that are high in vitamin K contain more than 100 mcg (micrograms) per serving. These include: ??? Broccoli (cooked) ? ? cup has 110 mcg. ??? [place]arrison sprouts (cooked) ? ? cup has 109 mcg. ??? Greens, beet (cooked) ? ? cup has 350 mcg. ??? Greens, dee (cooked) ? ? cup has 418 mcg. ??? Greens, turnip (cooked) ? ? cup has 265 mcg. ??? Green onions or scallions ? ? cup has 105 mcg. ??? Kale (fresh or frozen) ? ? cup has 531 mcg. ??? Parsley (raw) ? 10 sprigs has 164 mcg. ??? Spinach (cooked) ? ? cup has 444 mcg. ??? Cypriot chard (cooked) ? ? cup has 287 mcg. Moderate vitamin K foods Foods that have a moderate amount of vitamin K contain 25?100 mcg per serving. These include: ??? Asparagus (cooked) ? 5 corcoran have 38 mcg. ??? Black-eyed peas (dried) ? ? cup has 32 mcg. ??? Cabbage (cooked) ? ? cup has 37 mcg. ??? Kiwi fruit ? 1 medium has 31 mcg. ??? Lettuce ? 1 cup has 57?63 mcg. ??? Okra (frozen) ? ? cup has 44 mcg. ??? Prunes (dried) ? 5 prunes have 25 mcg. ??? Watercress (raw) ? 1 cup has 85 mcg. Low vitamin K foods Foods low in vitamin K contain less than 25 mcg per serving. These include: ??? Artichoke ? 1 medium has 18 mcg. ??? Avocado ? 1 oz. has 6 mcg. ??? Blueberries ? ? cup has 14 mcg. ??? Cabbage (raw) ? ? cup has 21 mcg. ??? Carrots (cooked) ? ? cup has 11 mcg. ??? Cauliflower (raw) ? ? cup has 11 mcg. ??? [place] with peel (raw) ? ? cup has 9 mcg. ??? Grapes ? ? cup has 12 mcg. ??? Zeyad ? 1 medium has 9 mcg. ??? Nuts ? 1 oz. has 15 mcg. ??? Pear ? 1 medium has 8 mcg. ??? Peas (cooked) ? ? cup has 19 mcg. ??? Pickles ? 1 spear has 14 mcg. ??? Pumpkin seeds ? 1 oz. has 13 mcg. ??? Sauerkraut (canned) ? ? cup has 16 mcg. ??? Soybeans (cooked) ? ? cup has 16 mcg. ??? Tomato (raw) ? 1 medium has 10 mcg. ??? Tomato sauce ? ? cup has 17 mcg. Vitamin K-free foods If a food contain less than 5 mcg per serving, it is considered to have no vitamin K. These foods include: ??? Bread and cereal products. ??? Cheese. ??? Eggs. ??? Fish and shellfish. ??? Meat and poultry. ??? Milk and dairy products. ??? Christian seeds. Actual amounts of vitamin K in foods may be different depending on processing. Talk with your dietitian about what foods you can eat and what foods you should avoid. This information is not intended to replace advice given to you by your health care provider. Make sure you discuss any questions you have with your health care provider. Document Revised: 06/10/2018 Document Reviewed: 09/30/2016 Elsevier Patient Education ? 2020 [employer] Preventive Health Heart Failure Action Plan A heart failure action plan helps you understand what to do when you have symptoms of heart failure. Follow the plan that was created by you and your health care provider. Review your plan each time you visit your health care provider. Red zone These signs and symptoms mean you should get medical help right away: ??? You have trouble breathing when resting. ??? You have a dry cough that is getting worse. ??? You have swelling or pain in your legs or abdomen that is getting worse. ??? You suddenly gain more than 2?3 lb (0.9?1.4 kg) in a day, or more than 5 lb (2.3 kg) in one week. This amount may be more or less depending on your condition. ??? You have trouble staying awake or you feel confused. ??? You have chest pain. ??? You do not have an appetite. ??? You pass out. If you experience any of these symptoms: ??? Call your local emergency services (911 in the [place] right away or seek help at the emergency department of the nearest hospital. Yellow zone These signs and symptoms mean your condition may be getting worse and you should make some changes: ??? You have trouble breathing when you are active or you need to sleep with extra pillows. ??? You have swelling in your legs or abdomen. ??? You gain 2?3 lb (0.9?1.4 kg) in one day, or 5 lb (2.3 kg) in one week. This amount may be more or less depending on your condition. ??? You get tired easily. ??? You have trouble sleeping. ??? You have a dry cough. If you experience any of these symptoms: ??? Contact your health care provider within the next day. ??? Your health care provider may adjust your medicines. Green zone These signs mean you are doing well and can continue what you are doing: ??? You do not have shortness of breath. ??? You have very little swelling or no new swelling. ??? Your weight is stable (no gain or loss). ??? You have a normal activity level. ??? You do not have chest pain or any other new symptoms. Follow these instructions at home: ??? Take osdc-yco-evriuku and prescription medicines only as told by your health care provider. ??? Weigh yourself daily. Your target weight is lb ( kg). ? Call your health care provider if you gain more than lb ( kg) in a day, or more than lb ( kg) in one week. ??? Eat a heart-healthy diet. Work with a diet and human resources specialist (dietitian) to create an eating plan that is best for you. ??? Keep all follow-up visits as told by your health care provider. This is important. Where to find more information ??? [place] [employer]: www.heart.org Summary ??? Follow the action plan that was created by you and your health care provider. ??? Get help right away if you have any symptoms in the Red zone. This information is not intended to replace advice given to you by your health care provider. Make sure you discuss any questions you have with your health care provider. Document Revised: 06/10/2018 Document Reviewed: 08/07/2017 [employer] Patient Education ? 2020 [employer] documented in this encounter Plan of Treatment Upcoming Encounters Date Type Department Care Team (Late st Contact Info) Description 04/12/2025 7:30 AM EDT Hospital Encounter [facility] Operating [facility] [address] [place] [id number] Bill Graham MD [address] [place] [address] 04/12/2025 7:30 AM EDT Anesthesia Event [facility] Operating [facility] [address] [place] [phone] Lucio Szymanski MD [address] [place], [place] [id number] 04/12/2025 7:30 AM EDT - 04/12/2025 8:55 AM EDT Surgery [facility] Operating [facility] [address] [place] [id number] Bill Graham MD [address] [place] [address] [phone] (LAPAROSCOPIC PERITONEAL DIALYSIS CATHETER INSERTION) Scheduled Procedures Name Priority Associated Diagnoses Date/Ti me LAPAROSCOPY, WITH PERITONEAL DIALYSIS CATHETER INSERTION Chronic kidney disease, stage V (HCC) 04/12/2025 7:30 AM EDT documented as of this encounter Visit Diagnoses Not on filedocumented in this encounter Care Teams 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
--- OUTSIDE RECORDS SUMMARY | 2025-04-11 11:10 | XMS_ITS | Encounter Summary ---
Author Organization [employer] ([place], [place], [place], [place]) Address [address] [address] Care Team Providers Care Laserist Name Role Phone Monroe Félix Francisco RODRIGUEZ Primary Care Provider [phone] Encounter Details Date Type Department Care Team (Late st Contact Info) Description 10/10/2020 Transcribed Document [facility] [place] [facility] [place] [address] ProviderMaria Esther MD [address] [place] [address] Social History Tobacco Use Types Packs/Day Years Used Date Smoking Tobacco: Never Assessed Comments Unknown Sex and Gender Information Value Date Recorded Sex Assigned at Not on file Legal Sex Female 6:53 PM CDT Gender Identity Not on file Sexual Orientation Not on file documented as of this encounter Miscellaneous Notes * Cerner Conversion Note - Maria Esther Reyes MD - 10/10/2020 12:33 PM CDT [facility] [place], [place] [id number] CORRIE SMITH :1970 Visit Time:10/07/2020 Your Visit Summary Your Care Team Admitting Physician - GILES BLAS MD-INT Attending Physician - MARILUZ NAPOLES MD-INT Primary Care Physician - BRENT, NOT LISTED Referring Physician - BRENT, NOT LISTED Your Diagnosis Acute on chronic HFrEF (heart failure with reduced ejection fraction) History of mitral valve replacement Anticoagulated on Coumadin Subtherapeutic international normalized ratio (INR) Chronic kidney disease, stage 4 (severe) COPD (chronic obstructive pulmonary disease) GERD - Gastro-esophageal reflux disease HTN - Hypertension History of obstructive sleep apnea Shortness of breath, Shortness of breath Discharge Vitals Heart Rate 94 Blood Pressure 119/84 What to do next Instructions From Your Care Team Please STOP taking Nifedipine Home Health Services: [facility] Coordinator ([phone]) will contact you with home health provider...for mcc follow up (CHF monitoring/INR checks) Transportation: Family Discharge Activity: Discharge Activity: Activity as tolerated Diet: Discharge Diet: Heart healthy diet Showering/Bathing Instructions: May shower Follow-Up Appointments Follow Up with LEONARDO MADISON When 10/25/2020 01:45 PM EDT Comments Cardiology follow up: Where: [address] [facility] [address] [place] [address]- Business (1) Follow Up with WINSTON GREEN MD-INT When 10/16/2020 02:30 PM EDT Comments PCP follow up - INR/BMP check/possible consult for bariatric surgery Where: [address] [place] [address]- Follow Up with [facility] When Within 2 to 3 days Comments Outpatient sleep study- office to contact you with appointment information. Where: [address] [place] [address]- [phone] Warfarin Instructions Indication for Warfarin Anticoagulation: Heart valve replacement, mechanical Warfarin Anticoagulation Disposition: Continuation of pre-hospital treatment Duration Warfarin Therapy, Senior Living: Yes Target INR: 2.0- 3.0 INR to be Drawn on: 10/16/20 INR to be Drawn at: [address] [place] [address]- @ 2:30 Notify Provider of Signs/Symptoms of: Significant bleeding, Clot Warfarin Bridging Therapy: Lovenox (enoxaparin) Warfarin Dose/Frequency: Daily Warfarin Bridging Therapy Dose, m mg Warfarin Bridging Therapy Route: Subcutaneously Warfarin Bridging Therapy Frequency: Daily Medications What How Much When Instructions Next Dose enoxaparin (Lovenox 60 mg/ 0.6 mL injectable solution) 60 Milligram(s) SubCutaneous Interval Every 24 Hours Duration: 2 Day(s) Daily injections until INR>1.8, then discontinue Lovenox Pickup at [facility] furosemide (Lasix 20 mg oral tablet) 1 Tablet(s) Oral Every Day Duration: 30 Day(s) Pickup at [facility] isosorbide dinitrate (isosorbide dinitrate 10 mg oral tablet) 1 Tablet(s) Oral Two Times A Day Pickup at [facility] nicotine (Habitrol 21 mg/ 24 hr transdermal film, extended release) 1 Patch(es) TransDermal Every Day as needed for Withdrawal Symptoms Duration: 21 Day(s) Pickup at [facility] potassium chloride (potassium chloride 10 mEq oral capsule, extended release) 1 Capsule(s) Oral Every Day Pickup at [facility] carvedilol (carvedilol 12.5 mg oral tablet) 1 Tablet(s) Oral Two Times A Day Pickup at [facility] hydrALAZINE (hydrALAZINE 25 mg oral tablet) 1 Tablet(s) Oral Two Times A Day warfarin (Coumadin 5 mg oral tablet) 1 Tablet(s) Oral Every Day Duration: 30 Day(s) Take with Lovenox injections until INR>1.8, then continue warfarin but stop Lovenox. Pickup at [facility] albuterol (albuterol CFC free 90 mcg/ inh inhalation aerosol with adapter) 2 Puff(s) Inhalation Every 6 Hours as needed for Wheezing aspirin (aspirin 81 mg oral delayed release tablet) 1 Tablet(s) Oral Every Day fluticasone nasal (fluticasone 50 mcg/ inh nasal spray) 2 Banks(s) Nasal Every Day as needed for Nasal Congestion pantoprazole (Protonix 40 mg oral delayed release tablet) 1 Tablet(s) Oral Every Day rOPINIRole (rOPINIRole 2 mg oral tablet) 1 Tablet(s) Oral At Bedtime traZODone (traZODone 150 mg oral tablet) 1 Tablet(s) Oral At Bedtime Pharmacy Information [facility]: [address] [facility] [address] [place], [place] [id number] [phone] Take your medications faithfully. Do NOT skip [...] codeine (Nausea, Hives, Welts) Immunizations This Visit No Immunizations Found Education Materials Warfarin Coagulopathy Warfarin coagulopathy refers to bleeding [...] stopping any new medicines. Many prescription and vqot-zan-jkqsclk medicines can interfere with warfarin. This includes jrad-rsn-najpnzh vitamins, dietary supplements, herbal medicines, and pain [...] that you work with a diet and cardiac rehabilitation specialist (dietitian). ??? Vitamin K makes warfarin [...] have PT tests at least once every 4???6 weeks for the entire time you are taking warfarin. ??? Ask your health care provider what your target INR range is. Make sure you always know your target range. If your INR is not in your target range, your health care provider may adjust your dosage. Preventing bleeding and injury ??? Some common yojh-cbg-dyolwvi medicines and supplements may increase the risk [...] of beer, 5 oz. of wine, or 1?? oz. of hard liquor. ? If you [...] diet. ??? You start or stop any cjfr-cnw-oqcnjpx medicine, prescription medicine, or dietary supplement. ??? [...] provider. Document Revised: 06/10/2018 Document Reviewed: 09/15/2017 [employer] Patient Education ?? 2020 [employer]. Bleeding Precautions When on Anticoagulant Therapy, Adult [...] blood clot. Taking other medicines ??? Take azsw-tfk-hbdmaqe and prescriptions medicines only as told by your health care provider. ??? Do not take ewkt-qrh-jpoopzl NSAIDs, including aspirin and ibuprofen, while you [...] use toothpicks. ??? Use a soft-bristled toothbrush. Kegley your teeth gently. ??? Always wear shoes [...] you: ??? Work with a diet and cardiac rehabilitation specialist (dietitian) to make an eating plan. [...] provider. Document Revised: 10/18/2019 Document Reviewed: 09/14/2017 [employer] Patient Education ?? 2020 [employer]. Chronic Kidney Disease, Adult Chronic kidney disease [...] age 60. ??? Are female. ??? Are -[place], , , , or . ??? Are [...] these instructions at home: Medicines ??? Take bzzb-nnb-oktvgse and prescription medicines only as told by [...] important. Where to find more information ??? [place] Association of Kidney Patients: www.aakp.org ??? National Kidney Foundation: www.kidney.org ??? [place] Kid[employer] Fund: www.akfinc.org ??? [employer] [facility] [...] provider. Document Revised: 06/10/2018 Document Reviewed: 08/05/2017 [employer] Patient Education ?? 2020 [employer]. Vitamin K Foods and Warfarin Warfarin is [...] before making changes. ??? Work with a cardiac rehabilitation specialist (dietitian) to develop a meal plan that works best for you. High vitamin K foods Foods that are high in vitamin K contain more than 100 mcg (micrograms) per serving. These include: ??? Broccoli (cooked) ? cup has 110 mcg. ??? [place] sprouts (cooked) ? cup has 109 mcg. ??? Greens, beet (cooked) ? cup has 350 mcg. ??? Greens, dee (cooked) ? cup has 418 mcg. ??? Greens, turnip (cooked) ? cup has 265 mcg. ??? Green onions or scallions ? cup has 105 mcg. ??? Kale (fresh or frozen) ? cup has 531 mcg. ??? Parsley (raw) ??? 10 sprigs has 164 mcg. ??? Spinach (cooked) ? cup has 444 mcg. ??? German chard (cooked) ? cup has 287 mcg. Moderate vitamin K foods Foods that have a moderate amount of vitamin K contain 25???100 mcg per serving. These include: ??? Asparagus (cooked) ??? 5 corcoran have 38 mcg. ??? Black-eyed peas (dried) ? cup has 32 mcg. ??? Cabbage (cooked) ? cup has 37 mcg. ??? Kiwi fruit ??? 1 medium has 31 mcg. ??? Lettuce ??? 1 cup has 57???63 mcg. ??? Okra (frozen) ? cup has 44 mcg. ??? Prunes (dried) ??? 5 prunes have 25 mcg. ??? Watercress (raw) ??? 1 cup has 85 mcg. Low vitamin K foods Foods low in vitamin K contain less than 25 mcg per serving. These include: ??? Artichoke ??? 1 medium has 18 mcg. ??? Avocado ??? 1 oz. has 6 mcg. ??? Blueberries ? cup has 14 mcg. ??? Cabbage (raw) ? cup has 21 mcg. ??? Carrots (cooked) ? cup has 11 mcg. ??? Cauliflower (raw) ? cup has 11 mcg. ??? [place] with peel (raw) ? cup has 9 mcg. ??? Grapes ? cup has 12 mcg. ??? Zeyad ??? 1 medium has 9 mcg. ??? Nuts ??? 1 oz. has 15 mcg. ??? Pear ??? 1 medium has 8 mcg. ??? Peas (cooked) ? cup has 19 mcg. ??? Pickles ??? 1 spear has 14 mcg. ??? Pumpkin seeds ??? 1 oz. has 13 mcg. ??? Sauerkraut (canned) ? cup has 16 mcg. ??? Soybeans (cooked) ? cup has 16 mcg. ??? Tomato (raw) ??? 1 medium has 10 mcg. ??? Tomato sauce ? cup has 17 mcg. Vitamin K-free foods If a food contain less than 5 mcg per serving, it is considered to have no vitamin K. These foods include: ??? Bread and cereal products. ??? Cheese. ??? Eggs. ??? Fish and shellfish. ??? Meat and poultry. ??? Milk and dairy products. ??? [place] seeds. Actual amounts of vitamin K in [...] provider. Document Revised: 06/10/2018 Document Reviewed: 09/30/2016 [employer] Patient Education ?? 2020 [employer] Heart Failure Action Plan A heart failure [...] worse. ??? You suddenly gain more than 2???3 lb (0.9???1.4 kg) in a day, or more than [...] your legs or abdomen. ??? You gain 2???3 lb (0.9???1.4 kg) in one day, or 5 lb [...] Follow these instructions at home: ??? Take frjl-xxo-ypfswzq and prescription medicines only as told by your health care provider. ??? Weigh yourself daily. Your target weight is lb ( kg). ? Call your health care provider if you gain more than lb ( kg) in a day, or more than lb ( kg) in one week. ??? Eat a heart-healthy diet. Work with a diet and cardiac rehabilitation specialist (dietitian) to create an eating plan that is best for you. ??? Keep all follow-up visits as told by your health care provider. This is important. Where to find more information ??? [place] Heart Association: www.heart.org Summary ??? Follow the [...] provider. Document Revised: 06/10/2018 Document Reviewed: 08/07/2017 [employer] Patient Education ?? 2020 [employer]. Heart Failure, Self Care Heart failure is [...] when you have heart failure Medicines Take xcnh-nli-oynwolz and prescription medicines only as told by [...] Limit how much you use to: ? 0???1 drink a day for women. ? 0???2 drinks a day for men. ? Be aware of how much alcohol is in your drink. In the [place] one drink equals one 12 oz bottle of beer (355 mL), one 5 oz glass of wine (148 mL), or one 1?? oz glass of hard liquor (44 mL). [...] provider. Document Revised: 10/10/2019 Document Reviewed: 10/11/2019 [employer] Patient Education ?? 2020 [employer]. Emergency Awareness and Preventative Care STROKE is [...] Assistance with quitting is available by contacting 4-287-TJYD-NOW. This is a free resource providing counseling, [...] This Visit (last charted value for your 10/07/2020 visit) Hematology 10/10/2020 2:37 AM WBC: 3.9 K/uL -- Normal range between ( 4.5 and 10.5 ) RBC: 3.89 Million/uL -- Normal range between ( 3.93 and 5.22 ) Hct: 31.9 % -- Normal range between ( 34.1 and 44.9 ) Hgb: 9.8 g/dL -- Normal range between ( 11.2 and 15.7 ) Platelet Count: 161 K/uL -- Normal range between ( 163 and 369 ) MCH: 25.2 pg -- Normal range between ( 25.6 and 32.2 ) MCHC: 30.7 Gram/dL -- Normal range between ( 32.2 and 36.5 ) MCV: 82.0 fL -- Normal range between ( 79.0 and 94.8 ) Slide Review: No RDW: 16.0 % -- Normal range between ( 11.7 and 14.9 ) MPV: 13.8 fL -- Normal range between ( 9.4 and 12.4 ) 10/08/2020 3:12 AM Eos %: 1.9 % -- Normal range between ( 0.0 and 7.0 ) Coos #: 0.33 K/uL -- Normal range between ( 0.16 and 1.00 ) Eos #: 0.10 x10(3)/uL -- Normal range between ( 0.00 and 0.80 ) Coos %: 6.4 % -- Normal range between ( 3.0 and 9.0 ) Baso %: 0.6 % -- Normal range between ( 0.0 and 1.5 ) Baso #: 0.03 x10(3)/uL -- Normal range between ( 0.00 and 0.20 ) Neut %: 65.8 % -- Normal range between ( 34.0 and 71.0 ) Neut #: 3.40 K/uL -- Normal range between ( 1.56 and 6.13 ) Lymph %: 25.1 % -- Normal range between ( 19.3 and 53.1 ) Lymph #: 1.30 x10(3)/uL -- Normal range between ( 1.00 and 3.90 ) IG#: 0.01 x10(3)/uL -- Normal range between ( 0.00 and 0.05 ) IG%: 0.20 % -- Normal range between ( 0.00 and 0.60 ) General Chemistry 10/10/2020 2:37 AM Creatinine Level: 2.90 mg/dL -- Normal range between ( 0.55 and 1.02 ) Sodium Level: 137 mmol/L -- Normal range between ( 136 and 146 ) Potassium Level: 3.3 mmol/L -- Normal range between ( 3.5 and 5.1 ) Chloride Level: 105 mmol/L -- Normal range between ( 102 and 112 ) Carbon Dioxide Level: 26 mmol/L -- Normal range between ( 21 and 32 ) Anion Gap: 9 -- Normal range between ( 9 and 20 ) Bun/Creatinine: 9.3 -- Normal range between ( 8.0 and 20.0 ) Calcium Level: 8.4 mg/dL -- Normal range between ( 8.4 and 10.1 ) eGFR : 21 mL/min/1.73m2 eGFR NonAfrican: 17 mL/min/1.73m2 Glucose Level: 101 mg/dL -- Normal range between ( 74 and 106 ) Blood Urea Nitrogen: 27 mg/dL -- Normal range between ( 7 and 22 ) 10/08/2020 3:12 AM Bilirubin Total: 0.8 mg/dL -- Normal range between ( 0.2 and 1.2 ) A/G Ratio: 0.8 -- Normal range between ( 1.1 and 2.5 ) ALT: 13 Units/Liter -- Normal range between ( 13 and 56 ) AST: 8 Units/Liter -- Normal range between ( 5 and 37 ) Globulin: 3.4 Gram/dL -- Normal range between ( 1.5 and 4.5 ) Alk Phos: 87 Units/Liter -- Normal range between ( 27 and 136 ) Magnesium Level: 2.0 mg/dL -- Normal range between ( 1.5 and 2.4 ) Protein Total: 6.1 Gram/dL -- Normal range between ( 6.4 and 8.2 ) Albumin Level: 2.7 Gram/dL -- Normal range between ( 3.4 and 5.0 ) Coagulation 10/10/2020 2:37 AM INR: 1.5 -- Normal range between ( 0.9 and 1.2 ) PT: 15.6 Second(s) -- Normal range between ( 9.2 and 12.0 ) Endocrinology 10/08/2020 3:12 AM TSH: 0.878 mcInt Units/mL -- Normal range between ( 0.358 and 3.740 ) FT4: 1.36 ng/dL -- Normal range between ( 0.76 and 1.46 ) Diagnostic Radiology 10/08/2020 6:23 PM CR Chest 2 Vws: CR Chest 2 Vws Echo 10/07/2020 2:12 PM EC Echo Complete: EC Echo Complete Patient Name:CORRIE SMITH I have received and understand this information and was given the opportunity to ask questions. Patient/Computer Numeric Control Setter Name: Patient/Computer Numeric Control Setter Signature: Relationship to Patient: Clinician/Hospital Computer Numeric Control Setter Signature: Date: Electronically signed by Nir, [facility] Conversion Trial Paralegal Cerner at 10/28/2022 7:00 PM CDT documented in this encounter Plan of Treatment Upcoming Encounters Date Type Department Care Team (Late st Contact Info) Description 04/12/2025 7:30 AM EDT Hospital Encounter [facility] Operating Room [address] [place] [address] [place] [address] [place] [address] [address] [place] [id number] 04/12/2025 7:30 AM EDT Anesthesia Event [facility] Operating Room [address] [place] [address] Lucio Szymanski MD [address] [place] [address] 04/12/2025 7:30 AM EDT - 04/12/2025 8:55 AM EDT Surgery [facility] Operating Room [address] [place] [address] Bill Graham MD [address] [place] [id number] (LAPAROSCOPIC PERITONEAL DIALYSIS CATHETER INSERTION) Scheduled Procedures Name Priority Associated Diagnoses Date/Ti me LAPAROSCOPY, WITH PERITONEAL DIALYSIS CATHETER INSERTION Chronic kidney disease, stage V (HCC) 04/12/2025 7:30 AM EDT documented as of this encounter Visit Diagnoses Not on filedocumented in this encounter Care Teams Laserist Relationship Specialty Start Date End Date Félix Monroe, PRINCIPAL CLERK TYPIST [address] [facility] [address] [place] [address] PCP - General Nurse Practitioner 08/25/22 documented as of this encounter
--- OUTSIDE RECORDS SUMMARY | 2025-04-11 11:10 | XMS_ITS | Encounter Summary ---
Author Organization [email or web address] ([place], [place], [place], [place]) Address [address] [place] [address] Care Team Providers Care Director Of Intercollegiate Athletics Name Role Phone MonroeFélix APRN Primary Care Provider [phone] Encounter Details Date Type Department Care Team (Late st Contact Info) Description 10/07/2020 Transcribed Document [facility] Family Medicine [address] [place] [address] ProviderMaria Esther MD [address] [place], [place] [id number] Social History Tobacco Use Types Packs/Day Years Used Date Smoking Tobacco: Never Assessed Comments Unknown Sex and Gender Information Value Date Recorded Sex Assigned at Not on file Legal Sex Female 6:53 PM CDT Gender Identity Not on file Sexual Orientation Not on file documented as of this encounter Miscellaneous Notes * Cerner Conversion Note - Maria Esther ProviderMD - 10/07/2020 1:26 PM CDT Patient: CORRIE SMITH Age: 50 years Sex: Female : 1970 Associated Diagnoses: None Author: SHANNAN CASTILLO PA-UNK Subjective Procedures No Procedures on Record Health Status Problem list: Active Problems (16) At risk [...] Stage 4 Sleep apnea-before weight loss surgery Intake & Output Totals Last 24 Hours (7a-7a) Intake (0) No intake events found in the last 24 hours. Output (0 Events) No output events found in the last 24 hours. Input Total: 0 mL Output Total: 0 mL Balance: 0 mL No Radiology Results FoundDiagnosis (2) Shortness of breath Shortness of breath Admitting Diagnosis R06.02 ICD-10-CM Objective General: No acute distress. Eye: Pupils are equal, round and reactive to light. HENT: Oral mucosa is moist. Neck: No carotid bruit, No jugular venous distention, No lymphadenopathy, No thyromegaly. Respiratory: Lungs are clear to auscultation, Respirations are non-labored, Breath sounds are equal, Symmetrical chest wall expansion. Cardiovascular: Normal rate, Regular rhythm, No murmur, No gallop, Good pulses equal in all extremities, No edema. Gastrointestinal: Soft, Non-tender, Normal bowel sounds, No organomegaly. Genitourinary: No costovertebral angle tenderness. Lymphatics: No lymphadenopathy neck, axilla, groin. Musculoskeletal: Normal range of motion, Normal strength. Integumentary: Warm, Dry, No rash. Neurologic: Alert, Oriented, Normal motor function, No focal deficits. Psychiatric: Cooperative, Appropriate mood & affect. Results Review General results No qualifying data available CBC Results (Current Encounter/Past 24 Hours) No CBC Results Found (Past 24 Hours) Impression and Plan 10/07/2020 Consult dictated S/p MVR On-X mechanical valve Acute/chronic systolic CHF class III TTE to assess heart valve function today Will sign off documented in this encounter Plan of Treatment Upcoming Encounters Date Type Department Care Team (Late st Contact Info) Description 04/12/2025 7:30 AM EDT Hospital Encounter [facility] Operating Room [address] [place] [address] Bill Graham MD [address] [place] [address] [place] [address] 04/12/2025 7:30 AM EDT Anesthesia Event [facility] Operating Room [address] [place] [id number] Lucio Szymanski MD [address] [place] [id number] 04/12/2025 7:30 AM EDT - 04/12/2025 8:55 AM EDT Surgery [facility] Operating Room [address] [place] [address] [place] [address] [place] [address] [address] [place] [address] [phone] (LAPAROSCOPIC PERITONEAL DIALYSIS CATHETER INSERTION) Scheduled Procedures Name Priority Associated Diagnoses Date/Ti me LAPAROSCOPY, WITH PERITONEAL DIALYSIS CATHETER INSERTION Chronic kidney disease, stage V (HCC) 04/12/2025 7:30 AM EDT documented as of this encounter Visit Diagnoses Not on filedocumented in this encounter Care Teams Director Of Intercollegiate Athletics Relationship Specialty Start Date End Date Félix Monroe, PLASTER MODEL AND MOLD MAKER [address] [facility] [address] [place] [address] PCP - General Nurse Practitioner 08/25/22 documented as of this encounter
--- OUTSIDE RECORDS SUMMARY | 2025-04-11 11:10 | XMS_ITS | Encounter Summary ---
Author Organization [employer] ([place], [place], [place], [place]) Address [address] [place] [address] Care Team Providers Care Thaw Shed Heater Tender Name Role Phone Monroe Félix Francisco RODRIGUEZ Primary Care Provider [phone] Encounter Details Date Type Department Care Team (Late st Contact Info) Description 10/22/2019 Transcribed Document [facility] Family [place] [facility] [place] [address] ProviderMaria Esther MD [address] [place] [address] Social History Tobacco Use Types Packs/Day Years Used Date Smoking Tobacco: Never Assessed Comments Unknown Sex and Gender Information Value Date Recorded Sex Assigned at Not on file Legal Sex Female 6:53 PM CDT Gender Identity Not on file Sexual Orientation Not on file documented as of this encounter Miscellaneous Notes * Cerner Conversion Note - Maria Esther Reyes MD - 10/22/2019 10:47 AM CDT [address] [place] [address] Patient Copy Patient Information: Name: CORRIE SMITH Current Date: 10/22/2019 10:47:06 : 1970 Patient Address: [address] [place] [id number] Patient Attending Physician: ANA BLAS MD-[facility] Primary Care Provider: Primary Care Provider Phone: Discharge Diagnosis: Severe mitral regurgitation Weight on Admission: 125 lb, 13 oz Weight at Discharge: 153 lb, 3 oz Comment: Follow-up Instructions: With: Address: When: SHAWANDA LUIS [address] [facility], [address] [place] [address] Business (1) In 1 month 11/20/2019 With: Address: When: MISBAH BOWSER [address], [address] [place] [address] Business (1) Within 6 weeks Comments: Pt states that she received call from Dr. Bowser Office that she has appt on at 1:30p to receive procrit; she wiill also have INR at that appt. With: Address: When: [facility] [address] [place] [address] Within 6 weeks With: Address: When: LEONARDO MADISON [address] [facility], [address] [place] [address] Business (1) Within 6 weeks With: Address: When: ALESHA EMERY [address] [facility], [address] [place] [address] Business (1) Within 2 weeks With: Address: When: WINSTON GREEN MD-INT [address] [facility] [place] [place] [address] Within 5 to 7 days Discharge Instructions: Immunizations Documented During Stay: No Immunizations Found Heart Failure Discharge Instructions (if any): Stroke Related Discharge Instructions (if any): Warfarin Related Discharge Instructions (if any): Final Medication List: Printed Prescriptions hydrALAZINE (hydrALAZINE 25 mg oral [...] oral tablet) 1 Tablet(s) Oral At Bedtime. Patient Allergies: codeine Medication Instructions: Take your medications faithfully. Do NOT skip [...] cramping, rapid heartbeat, difficulty sleeping, and nervousness. CIGARETTE SMOKING: The facts are clear, cigarette smoking will shorten your life. Smoking can cause many illnesses along the way. As a healthcare provider, we recommend that you stop smoking. Assistance with quitting is available by contacting 8-517-HBOX-NOW. This is a free resource providing counseling, support, and referral. Or you may contact your personal physician. 4 WAYS TO GET AHEAD OF SEPSIS SEPSIS is a MEDICAL EMERGENCY. Time matters! Infections put you and your family at risk for a life-threatening condition called sepsis. Sepsis is the body???s extreme response to an infection. It is life-threatening, and without timely treatment, sepsis can rapidly lead to tissue damage, organ failure, and . Sepsis happens when an infection you already have???in your skin, lungs, urinary tract or somewhere else???triggers a chain reaction throughout your body. 1 [...] sepsis or if you have an infection that???s not getting better or is getting worse. To learn more about sepsis and how to prevent infections, visit www.cdc.gov/sepsis. STROKE is an EMERGENCY Every [employer] ACT F.A.S.T! FACE ?? Facial droop ?? Uneven smile ARM ?? Arm numbness ?? Arm weakness SPEECH ?? Slurred speech ?? Difficulty speaking or understanding TIME ?? Call 911 and get to the hospital immediately Have the ambulance go to the nearest stroke center. STROKE Risk Factors High blood pressure High cholesterol Heart Disease Diabetes Smoking Heavy alcohol use Physical inactivity and obesity Atrial Fibrillation (irregular heartbeat) Family history of stroke Reminder: Be sure to sign up for the [employer] patient portal, which gives you 01/02 access to your medical information ??? including these discharge instructions ??? using your computer, smartphone, or tablet. Just go to [employer] to get started. Questions? Call . [facility] would like to thank you for allowing us to assist you with your healthcare needs. [employer] ANGIE LYNN, (or automotive sales representative) have received the above patient education materials/instructions and have verbalized understanding: Patient Signature _ Date/Time Patient Water Filtration Technician Signature (if needed) Date/Time Clinician/Hospital Water Filtration Technician Signature (if needed) Date/Time documented in this encounter Plan of Treatment Upcoming Encounters Date Type Department Care Team (Late st Contact Info) Description 04/12/2025 7:30 AM EDT Hospital Encounter [facility] Operating Room 1 [place] [phone] Bill Graham MD [address] [place] [address] 04/12/2025 7:30 AM EDT Anesthesia Event [facility] Operating Room 1 [place] [phone] Lucio Szymanski MD [address] [place], [place] [id number] 04/12/2025 7:30 AM EDT - 04/12/2025 8:55 AM EDT Surgery [facility] Operating Room 1 [place] [phone] Bill Graham MD [address] [place] [address] [address] [place], [place] [id number] (LAPAROSCOPIC PERITONEAL DIALYSIS CATHETER INSERTION) Scheduled Procedures Name Priority Associated Diagnoses Date/Ti me LAPAROSCOPY, WITH PERITONEAL DIALYSIS CATHETER INSERTION Chronic kidney disease, stage V (HCC) 04/12/2025 7:30 AM EDT documented as of this encounter Visit Diagnoses Not on filedocumented in this encounter Care Teams Thaw Shed Heater Tender Relationship Specialty Start Date End Date Félix Monroe, COMPETITIVE SHOPPER [address] [facility] [address] [place] [address] PCP - General Nurse Practitioner 08/25/22 documented as of this encounter
--- OUTSIDE RECORDS SUMMARY | 2025-04-11 11:10 | XMS_ITS | Encounter Summary ---
Author Organization [employer] ([place], [place], [place], [place]) Address [address] [place] [address] Care Team Providers Care Pallet Rectifier Name Role Phone Fer Félix Singh MICHAEL Primary Care Provider [phone] Encounter Details Date Type Department Care Team (Late st Contact Info) Description 10/09/2020 Transcribed Document [facility] Family Medicine [address] [place] [address] ProviderMaria Esther MD [address] [place], [place] [phone] Social History Tobacco Use Types Packs/Day Years Used Date Smoking Tobacco: Never Assessed Comments Unknown Sex and Gender Information Value Date Recorded Sex Assigned at Not on file Legal Sex Female 6:53 PM CDT Gender Identity Not on file Sexual Orientation Not on file documented as of this encounter Miscellaneous Notes * Cerner Conversion Note - Historical ProviderMD - 10/09/2020 7:44 PM CDT Meds to Bed Enrollment Entered On: 10/09/2020 19:44 EDT Performed On: 10/09/2020 19:44 EDT by Marni Araiza PHARMACIST-SPECIALIST CLINICAL Meds to Bed Enrollment Patient Enrollment Decision: : Yes/enroll in meds to bed program Marni Araiza PHARMACIST-SPECIALIST CLINICAL - 10/09/2020 19:44 EDT documented in this encounter Plan of Treatment Upcoming Encounters Date Type Department Care Team (Late st Contact Info) Description 04/12/2025 7:30 AM EDT Hospital Encounter [facility] Operating Room 1 [place] [address] Bill Graham MD [address] [facility] [address] [place] [address] 04/12/2025 7:30 AM EDT Anesthesia Event [facility] Operating Room 1 [place] [address] Lucio Szymanski MD [address] [place] [address] 04/12/2025 7:30 AM EDT - 04/12/2025 8:55 AM EDT Surgery [facility] Operating Room 1 [place] [address] [place] [address] [place] [address] [address] [place] [address] (LAPAROSCOPIC PERITONEAL DIALYSIS CATHETER INSERTION) Scheduled Procedures Name Priority Associated Diagnoses Date/Ti me LAPAROSCOPY, WITH PERITONEAL DIALYSIS CATHETER INSERTION Chronic kidney disease, stage V (HCC) 04/12/2025 7:30 AM EDT documented as of this encounter Visit Diagnoses Not on filedocumented in this encounter Care Teams Pallet Rectifier Relationship Specialty Start Date End Date Félix Monroe, HORSE BREEDER [address] [facility] [address] [place] [address] PCP - General Nurse Practitioner 08/25/22 documented as of this encounter
--- OUTSIDE RECORDS SUMMARY | 2025-04-11 11:10 | XMS_ITS | Encounter Summary ---
Author Organization [employer] ([place], [place], [place], [place]) Address [address] [place] [address] Care Team Providers Care Rehabilitation Tech Name Role Phone Félix Monroe MICHAEL Primary Care Provider [phone] Encounter Details Date Type Department Care Team (Late st Contact Info) Description 10/22/2019 Transcribed Document [facility] [place] Medicine [address] [place] [address] ProviderMaria Esther MD [address] [place], [place] [phone] Social History Tobacco Use Types Packs/Day Years Used Date Smoking Tobacco: Never Assessed Comments Unknown Sex and Gender Information Value Date Recorded Sex Assigned at Not on file Legal Sex Female 6:53 PM CDT Gender Identity Not on file Sexual Orientation Not on file documented as of this encounter Miscellaneous Notes * Cerner Conversion Note - Maria Esther ProviderMD - 10/22/2019 11:38 AM CDT Nursing Discharge Summary Entered On: 10/22/2019 11:38 EDT Performed On: 10/22/2019 11:38 EDT by DAYSI PACHECO RN Discharge Documentation Discharge Date/Time : 10/22/2019 13:03 EDT Prescriptions Given to Patient : Yes Medications Given to Patient : No Discharge Instructions Reviewed With, Opportunity For Questions Given : Patient Patient Education Completed : Yes DAYSI PACHECO RN - 10/22/2019 13:32 EDT Number of Prescriptions Given : 5 DAYSI PACHECO RN - 10/22/2019 13:35 EDT Teaching Method : Explanation, Printed materials, Teach back method Teaching Evaluation : Verbalizes understanding DAYSI PACHECO RN - 10/22/2019 13:32 EDT Patient Disposition, General : Discharge Discharge To : Home with ambulatory/outpatient follow-up Mode Of Departure, General Discharge : Private vehicle Accompanied By, Discharge : Spouse IV Discontinued : Not applicable Personal Belongings With Patient : Yes Pt's Own Supply of Medications Returned : No Education Comment : pt verbalized understanding of POC and medications DAYSI PACHECO RN - 10/22/2019 11:38 EDT Electronically signed by [facility] Conversion Well Drill Operator Rotary Drill Cerner at 10/28/2022 7:09 PM CDT documented in this encounter Plan of Treatment Upcoming Encounters Date Type Department Care Team (Late st Contact Info) Description 04/12/2025 7:30 AM EDT Hospital Encounter [facility] Operating Room 1 [place] [address] Bill Graham MD [address] [place] [address] 04/12/2025 7:30 AM EDT Anesthesia Event [facility] Operating Room 1 [place] [address] Lucio Szymanski MD [address] [place] [address] 04/12/2025 7:30 AM EDT - 04/12/2025 8:55 AM EDT Surgery [facility] Operating Room 1 [place] [address] Bill Graham MD [address] [place] [address] [address] (LAPAROSCOPIC PERITONEAL DIALYSIS CATHETER INSERTION) Scheduled Procedures Name Priority Associated Diagnoses Date/Ti me LAPAROSCOPY, WITH PERITONEAL DIALYSIS CATHETER INSERTION Chronic kidney disease, stage V (HCC) 04/12/2025 7:30 AM EDT documented as of this encounter Visit Diagnoses Not on filedocumented in this encounter Care Teams Rehabilitation Tech Relationship Specialty Start Date End Date Félix Monroe, DIETITIAN TEACHING [address] [place] [id number] PCP - General Nurse Practitioner 08/25/22 documented as of this encounter
--- OUTSIDE RECORDS SUMMARY | 2025-04-11 11:10 | XMS_ITS | Encounter Summary ---
Author Organization [employer] ([place], [place], [place], [place]) Address [address] [place] [address] Care Team Providers Care Marketing Technology Specialist Name Role Phone Félix Monroe APRN Primary Care Provider [phone] Encounter Details Date Type Department Care Team (Late st Contact Info) Description 10/07/2020 Transcribed Document [facility] [place] [facility] [place] [address] ProviderMaria Esther MD [address] [place], [place] [address] Social History Tobacco Use Types Packs/Day Years Used Date Smoking Tobacco: Never Assessed Comments Unknown Sex and Gender Information Value Date Recorded Sex Assigned at Not on file Legal Sex Female 6:53 PM CDT Gender Identity Not on file Sexual Orientation Not on file documented as of this encounter Miscellaneous Notes * Cerner Conversion Note - Historical ProviderMD - 10/07/2020 12:35 PM CDT Consult Phone Call Documentation Entered On: 10/07/2020 12:53 EDT Performed On: 10/07/2020 12:35 EDT by Edy Painter, [facility] Phone Call for Consults Consult Phone Call/Page Attempt : First call Consult Reason : acute chf Provider Service Notified Name : Cardio surgery Date and Time Call Returned : 10/07/2020 12:53 EDT Edy Painter [facility] [facility] - 10/07/2020 12:52 EDT documented in this encounter Plan of Treatment Upcoming Encounters Date Type Department Care Team (Late st Contact Info) Description 04/12/2025 7:30 AM EDT Hospital Encounter [facility] Operating Room 1 [place] [address] Bill Graham MD [address] [facility] [address] [place] [address] 04/12/2025 7:30 AM EDT Anesthesia Event [facility] Operating Room 1 [place] [address] Lucio Szymanski MD [address] [place] [address] 04/12/2025 7:30 AM EDT - 04/12/2025 8:55 AM EDT Surgery [facility] Operating Room 1 [place] [address] Bill Graham MD [address] [place] [address] [address] [place] [address] (LAPAROSCOPIC PERITONEAL DIALYSIS CATHETER INSERTION) Scheduled Procedures Name Priority Associated Diagnoses Date/Ti me LAPAROSCOPY, WITH PERITONEAL DIALYSIS CATHETER INSERTION Chronic kidney disease, stage V (HCC) 04/12/2025 7:30 AM EDT documented as of this encounter Visit Diagnoses Not on filedocumented in this encounter Care Teams Marketing Technology Specialist Relationship Specialty Start Date End Date Félix Monroe, CERTIFIED REHABILITATION COUNSELOR [address] [facility] [address] [place] [address] PCP - General Nurse Practitioner 08/25/22 documented as of this encounter
--- OUTSIDE RECORDS SUMMARY | 2025-04-11 11:10 | XMS_ITS | Encounter Summary ---
Author Organization [employer] ([place], [place], [place], [place]) Address [address] [address] Care Team Providers Care Investor Relations Analyst Name Role Phone Monroe Félix Francisco RODRIGUEZ Primary Care Provider [phone] Encounter Details Date Type Department Care Team (Late st Contact Info) Description 10/10/2020 Transcribed Document [facility] [place] [facility] [place] [address] ProviderMaria Esther MD [address] [place] [address] Social History Tobacco Use Types Packs/Day Years Used Date Smoking Tobacco: Never Assessed Comments Unknown Sex and Gender Information Value Date Recorded Sex Assigned at Not on file Legal Sex Female 6:53 PM CDT Gender Identity Not on file Sexual Orientation Not on file documented as of this encounter Miscellaneous Notes * Cerner Conversion Note - Maria Esther ProviderMD - 10/10/2020 11:54 AM CDT Final Discharge Planning Entered On: 10/10/2020 11:59 EDT Performed On: 10/10/2020 11:54 EDT by TAYLOR BRYANT Entry Level Manufacturing Engineer Final Discharge Planning Discharge Arrangements : Patient Post-Acute Information Patient Name: CORRIE SMITH Gender: Female : [birth year] Age: 50 Years No Post-Acute Placement(s) Listed No Post-Acute Service(s) Listed No [place] Referral(s) Listed Patient Offered Choice/Affiliations Explained : Yes Designation of Choice Signed : Yes Transportation Needs : Car Follow Up Appointment Scheduled : Yes Is Patient High/Moderate Readmission Risk? : Yes High Readmission Risk - Home with Home Health : Make post-discharge physician appointment within 72 hours of discharge Patient/Family Notified of Plan : Yes Discharge To Care Management : Home Health Services (Related/SOC within 3 days)-06 TAYLOR BRYANT Entry Level Manufacturing Engineer - 10/10/2020 11:54 EDT Final Narrative Note Final Narrative Note : Admission day 3, patient is on room air, plan to discharge home today, transport via family, who will assist with care, patient to be followed by home health upon discharge for RN services (CHF teaching. INR check with results called to PCP) [facility] coordinator to contact patient with provider name and number once identified. Follow up appointments for MD arranged, outpatient sleep study in [place] to contact patient with appointment day and time for follow up. Confirmed with patient's insurance that Lovenox (generic form) is covered with no prior auth needed. Pt, RN and family aware and in agreement with plan. TAYLOR BRYANT Social Worker - 10/10/2020 11:54 EDT documented in this encounter Plan of Treatment Upcoming Encounters Date Type Department Care Team (Late st Contact Info) Description 04/12/2025 7:30 AM EDT Hospital Encounter [facility] Operating Room 1 [place] [address] Bill Graham MD [address] [place] [address] [address] [place] [address] 04/12/2025 7:30 AM EDT Anesthesia Event [facility] Operating Room 1 [place] [address] Lucio Szymanski MD [address] [place] [address] 04/12/2025 7:30 AM EDT - 04/12/2025 8:55 AM EDT Surgery [facility] Operating Room 1 [place] [address] Bill Graham MD [address] [facility] [address] [place], [place] [phone] (LAPAROSCOPIC PERITONEAL DIALYSIS CATHETER INSERTION) Scheduled Procedures Name Priority Associated Diagnoses Date/Ti me LAPAROSCOPY, WITH PERITONEAL DIALYSIS CATHETER INSERTION Chronic kidney disease, stage V (HCC) 04/12/2025 7:30 AM EDT documented as of this encounter Visit Diagnoses Not on filedocumented in this encounter Care Teams Investor Relations Analyst Relationship Specialty Start Date End Date Félix Monroe, MANAGER ENROLLMENT [address] [facility] [address] [place] [address] PCP - General Nurse Practitioner 08/25/22 documented as of this encounter
--- OUTSIDE RECORDS SUMMARY | 2025-04-11 11:10 | XMS_ITS | Encounter Summary ---
Author Organization [employer] ([place], [place], [place], [place]) Address [address] [place] [address] Care Team Providers Care Hydrotel Operator Name Role Phone Fer Félix Francisco RODRIGUEZ Primary Care Provider [phone] Encounter Details Date Type Department Care Team (Late st Contact Info) Description 10/10/2020 Transcribed Document [facility] [place] [facility] [address] ProviderMaria Esther MD [address] [place], [place] [address] Social History Tobacco Use Types Packs/Day Years Used Date Smoking Tobacco: Never Assessed Comments Unknown Sex and Gender Information Value Date Recorded Sex Assigned at Not on file Legal Sex Female 6:53 PM CDT Gender Identity Not on file Sexual Orientation Not on file documented as of this encounter Miscellaneous Notes * Cerner Conversion Note - Maria Esther ProviderMD - 10/10/2020 12:31 PM CDT Nursing Discharge Summary Entered On: 10/10/2020 12:32 EDT Performed On: 10/10/2020 12:31 EDT by Ino Bravo, Maintenance Leader-Student Nurse Discharge Documentation Discharge Date/Time : 10/10/2020 13:30 EDT Patient Disposition, General : Discharge Discharge To : Home with ambulatory/outpatient follow-up Mode Of Departure, General Discharge : Private vehicle Accompanied By, Discharge : Daughter IV Discontinued : Yes Personal Belongings With Patient : Yes Pt's Own Supply of Medications Returned : No patient supply of medications to return Prescriptions Given to Patient : Yes Medications Given to Patient : Yes Patient Education Completed : Yes Teaching Method : Demonstration, Explanation, Teach back method Teaching Evaluation : Verbalizes understanding Ino Bravo, Maintenance Leader-Student Nurse - 10/10/2020 12:31 EDT documented in this encounter Plan of Treatment Upcoming Encounters Date Type Department Care Team (Late st Contact Info) Description 04/12/2025 7:30 AM EDT Hospital Encounter [facility] Operating Room 1 [place] [phone] [place] [address] [place] [address] 04/12/2025 7:30 AM EDT Anesthesia Event [facility] Operating Room 1 [place] [address] Lucio Szymanski MD [address] [place] [address] 04/12/2025 7:30 AM EDT - 04/12/2025 8:55 AM EDT Surgery [facility] Operating Room 1 [place] [address] Bill Graham MD [address] [place] [address] (LAPAROSCOPIC PERITONEAL DIALYSIS CATHETER INSERTION) Scheduled Procedures Name Priority Associated Diagnoses Date/Ti me LAPAROSCOPY, WITH PERITONEAL DIALYSIS CATHETER INSERTION Chronic kidney disease, stage V (HCC) 04/12/2025 7:30 AM EDT documented as of this encounter Visit Diagnoses Not on filedocumented in this encounter Care Teams Hydrotel Operator Relationship Specialty Start Date End Date Félix Monroe, MIRROR INSPECTOR [address] [facility] [address] [place], [place] [phone] PCP - General Nurse Practitioner 08/25/22 documented as of this encounter
--- OUTSIDE RECORDS SUMMARY | 2025-04-11 11:10 | XMS_ITS | Encounter Summary ---
Author Organization [employer] ([place], [place], [place], [place]) Address [address] [address] Care Team Providers Care Cashier Associate Name Role Phone MnoroeFélix APRN Primary Care Provider [phone] Encounter Details Date Type Department Care Team (Late st Contact Info) Description 10/08/2020 Transcribed Document [facility] Family Medicine Formerly [place] [address] ProviderMaria Esther MD [address] [place], [place] [id number] Social History Tobacco Use Types Packs/Day Years Used Date Smoking Tobacco: Never Assessed Comments Unknown Sex and Gender Information Value Date Recorded Sex Assigned at Not on file Legal Sex Female 6:53 PM CDT Gender Identity Not on file Sexual Orientation Not on file documented as of this encounter Miscellaneous Notes * Cerner Conversion Note - Maria Esther Reyes MD - 10/08/2020 8:27 PM CDT Patient: CORRIE SMITH Age: 50 Years Sex: Female : 1970 Subjective Seen today in her room. Breathing a little better. Spouse thinks she needs oxygen at home, patient states she might need it sometimes. Will plan on walk test prior to discharge. Otherwise doing ok. Cardiology w/ initial concerns about MV thrombus on TTE and RIA initially ordered but on further review valve seems to be functioning normally. INR subtherapeutic, pt states she is taking it as prescribed. Currently on lovenox for bridge therapy. Cardiology ok w/ d/c in AM if stable overnight. Vital Signs T: 36.7 ??C TMIN: 36.3 ??C TMAX: 36.7 ??C HR: 101(Monitored) RR: 18 BP: 114/73 SpO2: 96% Oxygen Settings (Last) Oxygen Therapy Mode: Nasal cannula (10/08/20 07:20:00) Oxygen Flow Rate: 2 Liter/Min (10/08/20 07:20:00) Intake & Output Totals Last 24 Hours (7a-7a) Input Total: 1214 mL Output Total: 2790 mL Balance: -1576 mL Physical Exam General: Chronically ill appearing adult woman in NAD, resting in bed, spouse at the bedside. HEENT: Normocephalic, atraumatic. PERRLA, EOMs intact, anicteric. Nares patent. OMM, tongue and uvula midline, speech clear. Neck: No lymphadenopathy or tenderness. [...] transferred here for CTS and cardiology - Continue IV bumex, monitor renal function daily in the setting of CKD4 - Echo with EF 30%, s/p MVR which is functioning normally - CT surgery and cardiology notified of admission - following, appreciate input - Continue supportive care w/ nebs, oxygen - Resume home meds CAD s/p angioplasty - Aware, angioplasty with Dr. Valdez 2020 - Resume home meds, echo largely unchanged [...] pharmacy for mgmt w/ lovenox bridge - CT surgery consulted to follow peripherally CKD4 - Cr at baseline, no change since last inpatient stay - Diuretics as above, daily labs to follow - Consult nephrology as indicated COPD - Aware, not in acute exacerbation [...] - Medical Enoxaparin 60 mg, SubCutaneous, Inj, [id number], Start 10/07/20 16:00:00 EDT (JAS SHEETS) Warfarin 5 mg, Oral, Tab, Daily, Start 10/07/20 18:00:00 EDT (CHRISTIANO SYED) Sequential Compression Device Start: 10/07/20 12:35:00 EDT, Bilateral, Length: Knee High, While patient is in bed, Continuous Order (CHRISTIANO SYED) Medications Bumex, 1 mg= 4 mL, IV Push, BID calcium gluconate calcium gluconate + Sodium Chloride [...] BID Lovenox, 60 mg= 0.6 mL, SubCutaneous, [id number] magnesium sulfate, 2 Gram= 50 mL, IV [...] mg= 2 mL, IV Push, Q4H, PRN Diagnostic Results TTE procedure: EC Echo Complete. Patient Status: Routine IP Study Location: [facility] Quality: Adequate visualization Indications:Coronary artery disease. Allergies [...] minimal restriction when compared to postoperative TTE. [1] Lab Results Test Name Test Result Date/Time Sodium Level 139 mmol/L 10/08/2020 03:12 EDT Potassium Level 3.3 mmol/L (Low) 10/08/2020 03:12 EDT Chloride Level 104 mmol/L 10/08/2020 03:12 EDT Carbon Dioxide Level 29 mmol/L 10/08/2020 03:12 EDT Anion Gap 9 10/08/2020 03:12 EDT Glucose Level 110 mg/dL (High) 10/08/2020 03:12 EDT Blood Urea Nitrogen 29 mg/dL (High) 10/08/2020 03:12 EDT Creatinine Level 2.40 mg/dL (High) 10/08/2020 03:12 EDT eGFR 26 mL/min/1.73m2 (Low) 10/08/2020 03:12 EDT eGFR NonAfrican 21 mL/min/1.73m2 (Low) 10/08/2020 03:12 EDT Bun/Creatinine 12.1 10/08/2020 03:12 EDT Calcium Level 8.6 mg/dL 10/08/2020 03:12 EDT Protein Total 6.1 Gram/dL (Low) 10/08/2020 03:12 EDT Albumin Level 2.7 Gram/dL (Low) 10/08/2020 03:12 EDT Globulin 3.4 Gram/dL 10/08/2020 03:12 EDT A/G Ratio 0.8 (Low) 10/08/2020 03:12 EDT Bilirubin Total 0.8 mg/dL 10/08/2020 03:12 EDT Alk Phos 87 Units/Liter 10/08/2020 03:12 EDT AST 8 Units/Liter 10/08/2020 03:12 EDT ALT 13 Units/Liter 10/08/2020 03:12 EDT Magnesium Level 2.0 mg/dL 10/08/2020 03:12 EDT WBC 5.2 K/uL 10/08/2020 03:12 EDT RBC 4.19 Million/uL 10/08/2020 03:12 EDT Hgb 10.7 g/dL (Low) 10/08/2020 03:12 EDT Hct 33.7 % (Low) 10/08/2020 03:12 EDT MCV 80.4 fL 10/08/2020 03:12 EDT MCH 25.5 pg (Low) 10/08/2020 03:12 EDT MCHC 31.8 Gram/dL (Low) 10/08/2020 03:12 EDT Platelet Count 153 K/uL (Low) 10/08/2020 03:12 EDT MPV 13.7 fL (High) 10/08/2020 03:12 EDT RDW 16.0 % (High) 10/08/2020 03:12 EDT Neut % 65.8 % 10/08/2020 03:12 EDT Neut # 3.40 K/uL 10/08/2020 03:12 EDT Lymph % 25.1 % 10/08/2020 03:12 EDT Lymph # 1.30 x10(3)/uL 10/08/2020 03:12 EDT Emmet % 6.4 % 10/08/2020 03:12 EDT Emmet # 0.33 K/uL 10/08/2020 03:12 EDT Eos % 1.9 % 10/08/2020 03:12 EDT Eos # 0.10 x10(3)/uL 10/08/2020 03:12 EDT Baso % 0.6 % 10/08/2020 03:12 EDT Baso # 0.03 x10(3)/uL 10/08/2020 03:12 EDT Slide Review No 10/08/2020 03:12 EDT IG# 0.01 x10(3)/uL 10/08/2020 03:12 EDT IG% 0.20 % 10/08/2020 03:12 EDT PT 13.7 Second(s) (High) 10/08/2020 03:12 EDT INR 1.3 (High) 10/08/2020 03:12 EDT TSH 0.878 mcInt Units/mL 10/08/2020 03:12 EDT FT4 1.36 ng/dL 10/08/2020 03:12 EDT [1] [facility]; CONTRIBUTOR_SYSTEM, [employer] 10/07/2020 14:12 EDT documented in this encounter Plan of Treatment Upcoming Encounters Date Type Department Care Team (Late st Contact Info) Description 04/12/2025 7:30 AM EDT Hospital Encounter [facility] Operating Room 1 [place] [address] [place] [address] [place] [address] [address] [place] [address] 04/12/2025 7:30 AM EDT Anesthesia Event [facility] Operating Room 1 [place] [address] Lucio Szymanski MD [address] [place] [address] 04/12/2025 7:30 AM EDT - 04/12/2025 8:55 AM EDT Surgery [facility] Operating Room 1 [place] [address] [place] [address] [place] [address] [address] [place] [phone] (LAPAROSCOPIC PERITONEAL DIALYSIS CATHETER INSERTION) Scheduled Procedures Name Priority Associated Diagnoses Date/Ti me LAPAROSCOPY, WITH PERITONEAL DIALYSIS CATHETER INSERTION Chronic kidney disease, stage V (HCC) 04/12/2025 7:30 AM EDT documented as of this encounter Visit Diagnoses Not on filedocumented in this encounter Care Teams Cashier Associate Relationship Specialty Start Date End Date Félix Monroe, PRINCIPAL SOFTWARE ENGINEER [address] [facility] [address] [place] [address] PCP - General Nurse Practitioner 08/25/22 documented as of this encounter
--- OUTSIDE RECORDS SUMMARY | 2025-04-11 11:10 | XMS_ITS | Encounter Summary ---
Author Organization [employer] ([place], [place], [place], [place]) Address [address] [address] Care Team Providers Care Stencil Machine Operator Name Role Phone Fer Félix Singh MICHAEL Primary Care Provider [phone] Encounter Details Date Type Department Care Team (Late st Contact Info) Description 10/22/2019 Transcribed Document [facility] [place] [facility] [address] [place] [address] ProviderMaria Esther MD [address] [place], [place] [phone] Social History Tobacco Use Types Packs/Day Years Used Date Smoking Tobacco: Never Assessed Comments Unknown Sex and Gender Information Value Date Recorded Sex Assigned at Not on file Legal Sex Female 6:53 PM CDT Gender Identity Not on file Sexual Orientation Not on file documented as of this encounter Miscellaneous Notes * Cerner Conversion Note - Maria Esther ProviderMD - 10/22/2019 11:31 AM CDT Stroke/Warfarin Instructions Entered On: 10/22/2019 11:35 EDT Performed On: 10/22/2019 11:31 EDT by DAYSI PACHECO RN Stroke/Warfarin Instructions Stroke/TIA Discharge Ins : N/A Warfarin Discharge Ins : Open DAYSI PACHECO RN - 10/22/2019 11:31 EDT Warfarin Discharge Instructions Indication for Warfarin Anticoagulation : Heart valve replacement, bioprosthetic, Heart valve replacement, mechanical Warfarin Anticoagulation Disposition : Initiated this hospitalization Target INR : 2.0- 3.0 INR to be Drawn on : 10/24/2019 EDT DAYSI PACHECO RN - 10/22/2019 11:31 EDT INR to be Drawn at : Dr Ronan Bowser Office [phone] Last INR Result : INR: 2.1 (High), Reference Range: (0.9 - 1.1), 10/22/2019 2:58 AM DIAGNOSIS THERAPEUTIC RANGE a) Primary and secondary prevention of 2.0-3.0 venous thrombosis b) Active venous thrombosis, pulmonary 2.0-4.0 embolism and prevention of recurrent venous thrombosis c) Prevention of arterial thromboembolism 3.0-4.5 including patients with mechanical heart valves Notify Provider of Signs/Symptoms of : Significant bleeding Warfarin Dose/Frequency : You got 0.5mg today. You will see Dr Bowser on WednesdayOctober 23 to INR drawn. Goal is to take coumadin Tuesdays and Saturdays DAYSI PACHECO RN - 10/22/2019 12:32 EDT Electronically signed by Nir [facility] Conversion Rip Sawyer Cerner at 10/28/2022 7:12 PM CDT documented in this encounter Plan of Treatment Upcoming Encounters Date Type Department Care Team (Late st Contact Info) Description 04/12/2025 7:30 AM EDT Hospital Encounter [facility] Operating Room 1 [place] [address] Bill Graham MD [address] [place] [address] 04/12/2025 7:30 AM EDT Anesthesia Event [facility] Operating Room 1 [place] [address] Lucio Szymanski MD [address] [place] [address] 04/12/2025 7:30 AM EDT - 04/12/2025 8:55 AM EDT Surgery [facility] Operating Room 1 [place] [address] Bill Graham MD [address] [place] [address] (LAPAROSCOPIC PERITONEAL DIALYSIS CATHETER INSERTION) Scheduled Procedures Name Priority Associated Diagnoses Date/Ti me LAPAROSCOPY, WITH PERITONEAL DIALYSIS CATHETER INSERTION Chronic kidney disease, stage V (HCC) 04/12/2025 7:30 AM EDT documented as of this encounter Visit Diagnoses Not on filedocumented in this encounter Care Teams Stencil Machine Operator Relationship Specialty Start Date End Date Félix Monroe, PROCESSES CHEMICAL DESIGN ENGINEER [address] [facility] [address] [place] [address] PCP - General Nurse Practitioner 08/25/22 documented as of this encounter
--- OUTSIDE RECORDS SUMMARY | 2025-04-11 11:10 | XMS_ITS | Encounter Summary ---
Author Organization [employer] ([place], [place], [place], [place]) Address [address] [address] Care Team Providers Care Boiler Operators Supervisor Name Role Phone MonroeFélix APRN Primary Care Provider [phone] Encounter Details Date Type Department Care Team (Late st Contact Info) Description 10/07/2020 Transcribed Document [facility] Family Medicine [facility] [place] [address] ProviderMaria Esther MD [address] [place] [phone] Social History Tobacco Use Types Packs/Day Years Used Date Smoking Tobacco: Never Assessed Comments Unknown Sex and Gender Information Value Date Recorded Sex Assigned at Not on file Legal Sex Female 6:53 PM CDT Gender Identity Not on file Sexual Orientation Not on file documented as of this encounter Miscellaneous Notes * Cerner Conversion Note - Maria Esther Reyes MD - 10/07/2020 1:22 PM CDT DATE OF CONSULTATION: 10/07/2020 REASON FOR CONSULTATION: 1. Dyspnea. 2. History of MVR. CHIEF COMPLAINT: Shortness of breath. HISTORY OF PRESENT ILLNESS: The patient is a 50-year-old female who underwent a mitral valve repair for severe mitral valve regurgitation in August 2019. Upon followup, it was noted that she had acute pulmonary insufficiency and edema with evidence of severe mitral regurgitation and hemolysis which was thought to be from the MR. She then underwent a redo MVR on 10/16/2019 utilizing 35/25 On-X mechanical mitral prosthesis. Other comorbidities are severe left ventricular hypertrophy, chronic class 3-4 CKD, acute on chronic congestive heart failure class 3, COPD. The patient presented to [facility] today complaining of worsening shortness of breath without chest pain indicating probable exacerbation of CHF class 3, acute on chronic. She was then transferred here to [facility] for treatment of CHF and heart function. CT Surgery was consulted to assess heart valvular function. REVIEW OF SYSTEMS: Complete review of systems were taken with positive findings as per HPI including cardiac: Progressive shortness of breath. The rest of review of systems was negative. ALLERGIES: Codeine. HOME MEDICATIONS: 1. ASA 81 mg daily. 2. Carvedilol 12.5 mg twice daily. 3. Hydralazine 25 mg twice daily. 4. Nicotine 21 mg transdermal daily. 5. Nifedipine or Procardia XL 60 mg daily. 6. Protonix 40 mg daily. 7. Ropinirole 1 mg at bedtime. 8. Warfarin 5 mg daily. PAST MEDICAL HISTORY: Acute on chronic CHF class 3, mitral valve disease, COPD, GERD, hypertension, NSTEMI, pulmonary edema, CKD stage 4. PAST SURGICAL HISTORY: 1. Mitral valve repair, 08/29/2019, utilizing 28 mm CG band. 2. Redo MVR with On-X mechanical mitral prosthesis, 10/16/2019. FAMILY HISTORY: Noncontributory. SOCIAL HISTORY: Smoking one-half pack per day, 30 years. Without alcohol. Substance abuse: Marijuana/hashish recreational drug use. PHYSICAL EXAMINATION: HEENT: Without lymphadenopathy or thyromegaly. Buccal mucosa moist. Without JVD or detectable carotid bruits. LUNGS: Resonant, clear bilaterally without rales or rhonchi. CARDIAC: Regular rhythm and rate without murmur, gallop, or rub. ABDOMEN: Bowel sounds present. Soft, nontender without mass or organomegaly. EXTREMITIES: Pulses +2 bilaterally without cyanosis or edema. SKIN: Warm, dry. Normal turgor. MUSCULOSKELETAL: Normal range of motion without focal weakness. NEUROLOGIC: Focal motor movements and cranial nerves grossly intact PSYCHIATRIC: Alert and oriented x3. Appropriate and cooperative. IMPRESSION: 1. Acute on chronic class 3 congestive heart failure. 2. Exacerbation of shortness of breath, probably due from above, status post mitral valve repair on 08/29/2019, redo sternotomy for mitral valve replacement utilizing On-X mechanical valve prosthesis on 10/16/[address] Valdez, presently on Coumadin. 3. Chronic kidney disease class 3-4. 4. History of laparoscopic gastric banding for treatment of morbid obesity. 5. Gastroesophageal reflux disease. 6. Chronic obstructive pulmonary disease. 7. History of transient ischemic attack. PLAN: TTE to assess heart/heart valvular function. Treat acute on chronic systolic CHF class 3. No surgical treatment. We will sign off. /[id number] DICTATED BY: JUSTIN Dey for Александр Valdez MD Александр Valdez MD PM/AQ / PM / MODL /[id number] Electronically signed by Nir, [facility] Conversion Aitchbone Breaker Cerner at 10/28/2022 6:59 PM CDT documented in this encounter Plan of Treatment Upcoming Encounters Date Type Department Care Team (Late st Contact Info) Description 04/12/2025 7:30 AM EDT Hospital Encounter [facility] Operating Room 1 [place] [address] Bill Graham MD [address] [place] [address] 04/12/2025 7:30 AM EDT Anesthesia Event [facility] Operating Room 1 [place] [address] Lucio Szymanski MD [address] [place] [address] 04/12/2025 7:30 AM EDT - 04/12/2025 8:55 AM EDT Surgery [facility] Operating Room 1 [place] [address] Bill Graham MD [address] [place] [address]51 (LAPAROSCOPIC PERITONEAL DIALYSIS CATHETER INSERTION) Scheduled Procedures Name Priority Associated Diagnoses Date/Ti me LAPAROSCOPY, WITH PERITONEAL DIALYSIS CATHETER INSERTION Chronic kidney disease, stage V (HCC) 04/12/2025 7:30 AM EDT documented as of this encounter Visit Diagnoses Not on filedocumented in this encounter Care Teams Boiler Operators Supervisor Relationship Specialty Start Date End Date Félix Monroe, CARE NURSE RN [address] [phone] PCP - General Nurse Practitioner 08/25/22 documented as of this encounter
--- OUTSIDE RECORDS SUMMARY | 2025-04-11 11:10 | XMS_ITS | Encounter Summary ---
Author Organization [employer] ([place], [place], [place], [place]) Address [address] [address] Care Team Providers Care Director Home Name Role Phone Fer Félix Francisco RODRIGUEZ Primary Care Provider [phone] Encounter Details Date Type Department Care Team (Late st Contact Info) Description 10/10/2020 Transcribed Document [facility] Family Medicine [address] [place] [address] ProviderMaria Esther MD [address] [place], [place] [id number] Social History Tobacco Use Types Packs/Day Years Used Date Smoking Tobacco: Never Assessed Comments Unknown Sex and Gender Information Value Date Recorded Sex Assigned at Not on file Legal Sex Female 6:53 PM CDT Gender Identity Not on file Sexual Orientation Not on file documented as of this encounter Miscellaneous Notes * Cerner Conversion Note - Maria Esther ProviderMD - 10/10/2020 12:25 PM CDT Stroke/Warfarin Instructions Entered On: 10/10/2020 12:28 EDT Performed On: 10/10/2020 12:25 EDT by Ino Bravo, Textile Bag Sewer-Student Nurse Stroke/Warfarin Instructions Stroke/TIA Discharge Ins : N/A Warfarin Discharge Ins : Open Ino Bravo Textile Bag Sewer-Student Nurse - 10/10/2020 12:25 EDT Warfarin Discharge Instructions INR to be Drawn at : [address] [place] [address]- @ 2:30 Ino Bravo Textile Bag Sewer-Student Nurse - 10/10/2020 12:29 EDT Indication for Warfarin Anticoagulation : Heart valve replacement, mechanical Warfarin Anticoagulation Disposition : Continuation of pre-hospital treatment Duration Warfarin Therapy, Fci Duration Warfarin Therapy, Fci : Yes Target INR : 2.0- 3.0 Ino Bravo, Textile Bag Sewer-Student Nurse - 10/10/2020 12:25 EDT INR to be Drawn on : 10/16/2020 EDT Ino Bravo Textile Bag Sewer-Student Nurse - 10/10/2020 12:29 EDT Last INR Result : INR: 1.5 (High), Reference Range: (0.9 - 1.2), 10/10/2020 2:37 AM DIAGNOSIS THERAPEUTIC RANGE a) Primary and secondary prevention of 2.0-3.0 venous thrombosis b) Active venous thrombosis, pulmonary 2.0-4.0 embolism and prevention of recurrent venous thrombosis c) Prevention of arterial thromboembolism 3.0-4.5 including patients with mechanical heart valves Notify Provider of Signs/Symptoms of : Significant bleeding, Clot Warfarin Dose/Frequency : Daily Warfarin Bridging Therapy : Lovenox (enoxaparin) Warfarin Bridging Therapy Dose, Milligrams : 60 mg Warfarin Bridging Therapy Route : Subcutaneously Warfarin Bridging Therapy Frequency : Daily Ino Bravo, Textile Bag Sewer-Student Nurse - 10/10/2020 12:25 EDT Education Topics: Anticoagulant Education Anticoagulant : Warfarin Compliance Issues *Q : Verbalizes understanding Take Warfarin as Instructed : Verbalizes understanding Monitoring Warfarin with INR Blood Draws : Verbalizes understanding Diet *Q : Verbalizes understanding Consistent Amount of Food with Vitamin K : Verbalizes understanding Continue Current Diet as Ordered : Verbalizes understanding Avoid Major Changes in Dietary Habits : Verbalizes understanding Adverse drug reactions/interactions *Q : Verbalizes understanding Diet/Medications can Affect INR Level : Verbalizes understanding Action/Interaction with Other Drugs : Verbalizes understanding Get Consult for Medication Changes : Verbalizes understanding Warfarin Side Effects (Increased Bleeding) : Verbalizes understanding Follow-up care/monitoring *Q : Verbalizes understanding Follow-up Care Details : Physician's office/clinic Ino Bravo, Textile Bag Sewer-Student Nurse - 10/10/2020 12:25 EDT documented in this encounter Plan of Treatment Upcoming Encounters Date Type Department Care Team (Late st Contact Info) Description 04/12/2025 7:30 AM EDT Hospital Encounter [facility] Operating Room 1 [place] [address] Bill Graham MD [address] [facility] [address] [place] [address] 04/12/2025 7:30 AM EDT Anesthesia Event [facility] Operating Room 1 [place] [address] Lucio Szymanski MD [address] [place] [address] 04/12/2025 7:30 AM EDT - 04/12/2025 8:55 AM EDT Surgery [facility] Operating Room [address] [place] [address] [place] [address] [place] [address] (LAPAROSCOPIC PERITONEAL DIALYSIS CATHETER INSERTION) Scheduled Procedures Name Priority Associated Diagnoses Date/Ti me LAPAROSCOPY, WITH PERITONEAL DIALYSIS CATHETER INSERTION Chronic kidney disease, stage V (HCC) 04/12/2025 7:30 AM EDT documented as of this encounter Visit Diagnoses Not on filedocumented in this encounter Care Teams Director Home Relationship Specialty Start Date End Date Félix Monroe, AUTOMATIC DRILLING MACHINE OPERATOR [address] [facility] [address] [place] [address] PCP - General Nurse Practitioner 08/25/22 documented as of this encounter
--- OUTSIDE RECORDS SUMMARY | 2025-04-11 11:10 | XMS_ITS | Encounter Summary ---
Author Organization [employer] ([place], [place], [place], [place]) Address [address] [place] [address] Care Team Providers Care Patrol Agent Name Role Phone Félix Monroe MICHAEL Primary Care Provider [phone] Encounter Details Date Type Department Care Team (Late st Contact Info) Description 10/09/2020 Transcribed Document [facility] [place] Family Medicine [address] [place] [address] ProviderMaria Esther MD [address] [place], [place] [id number] Social History Tobacco Use Types Packs/Day Years Used Date Smoking Tobacco: Never Assessed Comments Unknown Sex and Gender Information Value Date Recorded Sex Assigned at Not on file Legal Sex Female 6:53 PM CDT Gender Identity Not on file Sexual Orientation Not on file documented as of this encounter Miscellaneous Notes * Cerner Conversion Note - Historical ProviderMD - 10/09/2020 2:00 AM CDT Humidifier Operator Details Entered On: 10/09/2020 4:27 EDT Performed On: 10/09/2020 2:00 EDT by Zahra Marquez Non Emp RN Order Details Transport Mode Order Detail : Wheelchair Isolation Precautions Order Detail : Standard Precautions Order Detail : 0 IV Order Detail : 1 Oxygen Order Detail : 0 Nurse Collect Order Detail : 0 Lift/Transfer : Independent Central Line Order Detail : No Room Service : Appropriate Arterial Line : No Patient Needs Meds Crushed/Liquid : No Zahra Marquez Non Emp RN - 10/09/2020 4:27 EDT documented in this encounter Plan of Treatment Upcoming Encounters Date Type Department Care Team (Late st Contact Info) Description 04/12/2025 7:30 AM EDT Hospital Encounter [facility] Operating Room 1 [place] [address] [place] [address] [place] [address] [address] [place] [address] 04/12/2025 7:30 AM EDT Anesthesia Event [facility] Operating Room 1 [place] [address] Lucio Szymanski MD [address] [place] [address] 04/12/2025 7:30 AM EDT - 04/12/2025 8:55 AM EDT Surgery [facility] Operating Room 1 [place] [address] [place] [address] [place] [address] [address] [place] [address] (LAPAROSCOPIC PERITONEAL DIALYSIS CATHETER INSERTION) Scheduled Procedures Name Priority Associated Diagnoses Date/Ti me LAPAROSCOPY, WITH PERITONEAL DIALYSIS CATHETER INSERTION Chronic kidney disease, stage V (HCC) 04/12/2025 7:30 AM EDT documented as of this encounter Visit Diagnoses Not on filedocumented in this encounter Care Teams Patrol Agent Relationship Specialty Start Date End Date Félix Monroe, HYDRAULIC CHAIR ASSEMBLER [address] [facility] [address] [place] [address] PCP - General Nurse Practitioner 08/25/22 documented as of this encounter
--- OUTSIDE RECORDS SUMMARY | 2025-04-11 11:10 | XMS_ITS | Encounter Summary ---
Author Organization [employer] ([place], [place], [place], [place]) Address [address] [address] Care Team Providers Care Greige Goods Marker Name Role Phone MonroeRamosie Francisco ORDRIGUEZ Primary Care Provider [phone] Encounter Details Date Type Department Care Team (Late st Contact Info) Description 10/09/2020 Transcribed Document [facility] [place] [facility] [place] [place] [address] ProviderMaria Esther MD [address] [place], [place] [id number] Social History Tobacco Use Types Packs/Day Years Used Date Smoking Tobacco: Never Assessed Comments Unknown Sex and Gender Information Value Date Recorded Sex Assigned at Not on file Legal Sex Female 6:53 PM CDT Gender Identity Not on file Sexual Orientation Not on file documented as of this encounter Miscellaneous Notes * Cerner Conversion Note - Maria Esther Reyes MD - 10/09/2020 8:25 AM CDT Patient: CORRIE SMITH Age: 50 [...] 60kg Labs (Last four charted values) WBC L 4.2 (OCT 09) 5.2 (OCT 08) Hgb L 9.4 (OCT 09) L 10.7 (OCT 08) Hct L 30.1 (OCT 09) L 33.7 (OCT 08) Plt L 156 (OCT 09) L 153 (OCT 08) Na 137 (OCT 09) 139 (OCT 08) K L 3.4 (OCT 09) L 3.3 (OCT 08) CO2 26 (OCT 09) 29 (OCT 08) Cl 104 (OCT 09) 104 (OCT 08) Cr H 3.00 (OCT 09) H 2.40 (OCT 08) BUN H 32 (OCT 09) H 29 (OCT 08) Glucose Random 100 (OCT 09) H 110 (OCT 08) Mg 2.0 (OCT 08) Ca L 8.1 (OCT 09) 8.6 (OCT 08) PT H 14.0 (OCT 09) H 13.7 (OCT 08) H 12.6 (OCT 07) INR H 1.4 (OCT 09) H 1.3 (OCT 08) 1.2 (OCT 07) Creatinine Clearance (Current Encounter/Past 24 Hours) Creatinine Level 3.00 mg/dL [place] 10/09/2020 04:22 Bun/Creatinine 10.7 10/09/2020 03:59 Estimated Creatinine Clearance 20.26 mL/Min 10/09/2020 03:59 Coagulation Results (Current Encounter/Past 24 Hours) PT 14.0 Second(s) [place] 10/09/2020 03:50 INR 1.4 [place] 10/09/2020 03:50 Warfarin Consult Medication: warfarin Indication: OnX mitral valve replacement Goal INR (per cards): 2.5-3.5 -INR on admission was 1.2 Home Dose: 5 mg daily Bridge therapy: Lovenox 1mg/kg daily Drug Interactions: lovenox and ASA - can increase risk of bleeding Date 10/07 10/08 10/09 INR 1.2 1.3 1.4 Dose 5mg 5mg (5mg) Plan: 1. INR is subtherapeutic at 1.4, increased from 1.3 yesterday. Given patient's subtherapeutic INR on admission, the current subtherapeutic INR is expected. Continue current dose of warfarin 5 mg daily. 2. Daily PT/INR 3. Continue Lovenox 60 mg (~1mg/kg) SQ daily as bridge therapy until INR > 1.8 (per cardiology). Will follow, Mak Gottlieb, PharmD Candidate Mitchell Meredith PharmD, [facility] [phone] Electronically signed by Nir, [facility] Conversion Senior Systems Developer Cerner at 10/28/2022 7:24 PM CDT documented in this encounter Plan of Treatment Upcoming Encounters Date Type Department Care Team (Late st Contact Info) Description 04/12/2025 7:30 AM EDT Hospital Encounter [facility] Operating Room 1 [place] [address] Bill Graham MD [address] [place], [place] [phone] 04/12/2025 7:30 AM EDT Anesthesia Event [facility] Operating Room 1 [place] [address] Lucio Szymanski MD [address] [place], [place] [id number] 04/12/2025 7:30 AM EDT - 04/12/2025 8:55 AM EDT Surgery [facility] Operating Room 1 [place] [address] Bill Graham MD [address] [place] [address] (LAPAROSCOPIC PERITONEAL DIALYSIS CATHETER INSERTION) Scheduled Procedures Name Priority Associated Diagnoses Date/Ti me LAPAROSCOPY, WITH PERITONEAL DIALYSIS CATHETER INSERTION Chronic kidney disease, stage V (HCC) 04/12/2025 7:30 AM EDT documented as of this encounter Visit Diagnoses Not on filedocumented in this encounter Care Teams Greige Goods Marker Relationship Specialty Start Date End Date Félix Monroe, FLATWORK TIER [address] [facility] [address] [place] [address] PCP - General Nurse Practitioner 08/25/22 documented as of this encounter
--- OUTSIDE RECORDS SUMMARY | 2025-04-11 11:10 | XMS_ITS | Encounter Summary ---
Author Organization [employer] ([place], [place], [place], [place]) Address [address] [address] Care Team Providers Care Other Sports Official Name Role Phone Fer Félix Singh APRN Primary Care Provider [phone] Encounter Details Date Type Department Care Team (Late st Contact Info) Description 10/09/2020 Transcribed Document [facility] [place] [place] Family Medicine [address] [place] [address] ProviderMaria Esther MD [address] [place], [place] [address] Social History Tobacco Use Types Packs/Day Years Used Date Smoking Tobacco: Never Assessed Comments Unknown Sex and Gender Information Value Date Recorded Sex Assigned at Not on file Legal Sex Female 6:53 PM CDT Gender Identity Not on file Sexual Orientation Not on file documented as of this encounter Miscellaneous Notes * Cerner Conversion Note - Maria Esther ProviderMD - 10/09/2020 10:39 AM CDT UM Authorization Entered On: 10/09/2020 10:40 EDT Performed On: 10/09/2020 10:39 EDT by CHAO LANDIN, Geographical Historian Primary Insurance Authorization Authorization and Policy Numbers : Insurance 1 Health Plan: [employer] Policy Number: [id number] Authorization Number: Insurance Primary Name : [employer] Policy Number: [id number] Authorization Status-Primary : No precert required Reference Number-Primary : [id number] Authorization Number-Primary : NPR due to COVID per fax from [employer]... ref# [id number] Authorized Service Begin Date-Primary : 10/07/2020 EDT Authorization Comments-Primary : Rec fax from [facility] 10/09/20 NPR due to COVID ref# [id number] Historical Authorization Comments-Primary : Comment 1: submitted on availity for IP auth w/ clinicals attached (JESSICA GUIDO, RN-Utilization Review 10/08/2020 13:24) CHAO LANDIN, Geographical Historian - 10/09/2020 10:39 EDT Electronically signed by Nir [facility] Conversion Senior Mobile Web Developer Cerner at 10/28/2022 7:17 PM CDT documented in this encounter Plan of Treatment Upcoming Encounters Date Type Department Care Team (Late st Contact Info) Description 04/12/2025 7:30 AM EDT Hospital Encounter [facility] Operating Room 1 [place] [address] Bill Graham MD [address] [place] [id number] 04/12/2025 7:30 AM EDT Anesthesia Event [facility] Operating Room 1 [place] [address] Lucio Szymanski MD [address] [place] [phone] 04/12/2025 7:30 AM EDT - 04/12/2025 8:55 AM EDT Surgery [facility] Operating Room 1 [place] [address] Bill Graham MD [address] [place] [address] [place] [address] (LAPAROSCOPIC PERITONEAL DIALYSIS CATHETER INSERTION) Scheduled Procedures Name Priority Associated Diagnoses Date/Ti me LAPAROSCOPY, WITH PERITONEAL DIALYSIS CATHETER INSERTION Chronic kidney disease, stage V (HCC) 04/12/2025 7:30 AM EDT documented as of this encounter Visit Diagnoses Not on filedocumented in this encounter Care Teams Other Sports Official Relationship Specialty Start Date End Date Félix Monroe, HEDGE FUND ACCOUNTANT [address] [facility] [address] [place] [address] PCP - General Nurse Practitioner 08/25/22 documented as of this encounter
--- OUTSIDE RECORDS SUMMARY | 2025-04-11 11:10 | XMS_ITS | Encounter Summary ---
Author Organization [employer] ([place], [place], [place], [place]) Address [address] [address] Care Team Providers Care Entry Level Project Coordinator Name Role Phone Monroe Félix Francisco RODRIGUEZ Primary Care Provider [phone] Encounter Details Date Type Department Care Team (Late st Contact Info) Description 08/30/2019 Transcribed Document [facility] [place] [address] [place] [address] ProviderMaria Esther MD [address] [place] [address] Social History Tobacco Use Types Packs/Day Years Used Date Smoking Tobacco: Never Assessed Comments Unknown Sex and Gender Information Value Date Recorded Sex Assigned at Not on file Legal Sex Female 6:53 PM CDT Gender Identity Not on file Sexual Orientation Not on file documented as of this encounter Miscellaneous Notes * Cerner Conversion Note - Maria Esther ProviderMD - 08/30/2019 3:45 PM SWITCHBOARD INSPECTOR Care Management Assessment/Plan Entered On: 08/30/2019 15:46 EST Performed On: 08/30/2019 15:45 EST by Pao Patel SCHEDULER Care Management Note Anticipated Discharge Date : 09/02/2019 0:00 EST Documentation Status Complete : Yes Pao Patel SCHEDULER - 08/30/2019 15:45 EST Discharge Planning Details Follow-up Appointments Made #1 : Scheduled f/u appointment with Susu García, as pt was already establised with practice. Any questions, please call the Patient Resource Center at . Follow-up Appointment Date #1 : 09/07/2019 14:20 EST PipesammyvandanaPao, MANAGER BEAUTY - 08/30/2019 15:45 EST Electronically signed by Nir, [facility] Conversion Order Builder Cerner at 10/28/2022 7:08 PM CDT documented in this encounter Plan of Treatment Upcoming Encounters Date Type Department Care Team (Late st Contact Info) Description 04/12/2025 7:30 AM EDT Hospital Encounter [facility] Operating Room 1 [place] [address] [place] [address] [place] [address] [address] 04/12/2025 7:30 AM EDT Anesthesia Event [facility] Operating Room 1 [place] [address] Lucio Szymanski MD [address] [place] [address] 04/12/2025 7:30 AM EDT - 04/12/2025 8:55 AM EDT Surgery [facility] Operating Room 1 [place] [address] Bill Graham MD [address] [place] [address] (LAPAROSCOPIC PERITONEAL DIALYSIS CATHETER INSERTION) Scheduled Procedures Name Priority Associated Diagnoses Date/Ti me LAPAROSCOPY, WITH PERITONEAL DIALYSIS CATHETER INSERTION Chronic kidney disease, stage V (HCC) 04/12/2025 7:30 AM EDT documented as of this encounter Visit Diagnoses Not on filedocumented in this encounter Care Teams Entry Level Project Coordinator Relationship Specialty Start Date End Date Félix Monroe, SOFTWARE SPECIALIST [address] [facility] [address] [place] [address] PCP - General Nurse Practitioner 08/25/22 documented as of this encounter
--- OUTSIDE RECORDS SUMMARY | 2025-04-11 11:10 | XMS_ITS | Encounter Summary ---
Author Organization [email or web address] ([place], [place], [place], [place]) Address [address] [place] [address] Care Team Providers Care Oracle Soa Consultant Name Role Phone Félix Monroe MICHAEL Primary Care Provider [phone] Encounter Details Date Type Department Care Team (Late st Contact Info) Description 10/07/2020 Transcribed Document [facility] [place] Family Medicine [facility] [place] [address] ProviderMaria Esther MD [address] [place], [place] [id number] Social History Tobacco Use Types Packs/Day Years [...] ProviderMD - 10/07/2020 12:35 PM CDT Evaluation, Occupational Therapy Entered On: 10/08/2020 13:37 EDT Performed On: 10/08/2020 13:34 EDT by LION FITZGERALD, OTR/L General Information, OT Visit Type, OT : Initial evaluation Patient Orders : Order Date Order Ordering 10/07/2020 12:40 OT Evaluation and Treatment Ordered By: CHRISTIANO SYED NP-FAM Active Diagnoses : No Qualifying Diagnoses Admission Date : 10/07/2020 10:57 Co-treated by, OT : Physical Therapist Personal Devices : Personal Devices No Devices Recorded Assistive Devices : Assistive Devices No Devices Recorded General Information Comment, OT : CHF. SOA. LION FITZGERALD OTR/L - 10/08/2020 13:34 EDT General Status Patient Received Status : Supine in bed Treatment Start Time : 10/08/2020 13:15 EDT Patient Left Status : Sitting edge of bed, RN/PCT informed, All needs met and within reach RN/PCT Informed Comment : CROW nelson Treatment End Time : 10/08/2020 13:28 EDT Treatment Time : 13 Minute(s) LION FITZGERALD OTR/Dhara - 10/08/2020 13:34 EDT History and Environment, OT Living Situation, Therapy : Home Patient Lives With : Spouse Persons Assisting Patient at Home : Alone, Spouse Professional Skilled Services : None Persons Providing Information : Patient Home Equipment, Therapy : None Home Setup : One story Stairs : No Ramp : Yes LION FITZGERALD OTR/Dhara - 10/08/2020 13:34 EDT Prior LOF Bathing, OT : Independent Prior LOF Bed Mobility : Independent Prior LOF Upper Body Dressing, OT : Independent Prior LOF Lower Body Dressing, OT : Independent Prior LOF Toileting : Independent Prior LOF Transfer : Independent Prior LOF Grooming, OT : Independent Prior LOF for IADLs, OT : Independent LION FITZGERALD OTR/Dhara - 10/08/2020 13:34 EDT Prior LOF for IADLs, OT : Independent and working. Pt ambulates up 30 stairs to her office at work. Pt is somewhat winded at that time. Pt does not use 0xygen at home. LION FITZGERALD OTR/Dhara - 10/08/2020 13:34 EDT Upper Extremity Right UE Active ROM : WFL Left UE Active ROM : WFL LION FITZGERALD OTR/Dhara - 10/08/2020 13:34 EDT Self Care/Home Management, OT Self Feeding Device Comment, OT : INDEPENDENT all ADLs. LION FITZGERALD OTR/Dhara - 10/08/2020 13:34 EDT Functional Mobility Mobility Grid Bed Roll Left : Rehab Complete independence Bed Roll Right : Rehab Complete independence Bed Scooting : Rehab Complete independence Supine to Sit : Rehab Complete independence Sit to Stand : Rehab Complete independence Bed to Chair : Rehab Complete independence Chair to Bed : Rehab Complete independence Stand to Sit : Rehab Complete independence Sit to Supine : Rehab Complete independence LION FITZGERALD OTR/L - 10/08/2020 13:34 EDT Cognition Assessment, OT Cognition Assessment, OT : Intact LION FITZGERALD OTR/L - 10/08/2020 13:34 EDT Indication Assessment, OT Occupational Therapy Indicated : No Occupational Therapy Not Indicated : At prior level of function, Independent, No skilled services indicated LION FITZGERALD OTR/L - 10/08/2020 13:34 EDT Plan of Care, OT OT Tx Plan/Goals Established w Patient : Yes Reason OT Treatment/Plan Not Established : Pt in agreement. No OT needs. LION FITZGERALD OTR/L - 10/08/2020 13:34 EDT Treatment Note Subjective Comment : Agreeable. Patient's Response to Treatment : Pt responding well. Demonstrating [place]. Pt ambulating full loop around unit with independence, no AE. Additional Objective Information : Pt demonstrating Ind with all ADLs. Pt on 2L 02. Pt doffing oxygen for walk. 02 reading above 90 following. Pt is not SOA. Assessment : No skilled OT necessary. Plan for Treatment : Defer. LION FITZGERALD OTR/L - 10/08/2020 13:34 EDT Pain Assessment Pain Scaled Used : 0-10 Pain scale Pain Score Post-Intervention. : 0 TEODORO FITZGERALDRamsey Taveras OTR/L - 10/08/2020 13:34 EDT Image 1 - Images currently included in the form version of this document have not been included in the text rendition version of the form. Anticipated Discharge Needs, OT/PT Anticipated Discharge to : Home, independently TEODORO FITZGERALDRamsey Taveras OTR/L - 10/08/2020 13:[address] OT Charges OT Ther Activities Ea 15 Min : 1 OT Eval Low Complexity : 1 EARNESTINE FITZGERALDVARUN Taveras OTR/L - 10/08/2020 13:34 EDT documented in this encounter Plan of Treatment Upcoming Encounters Date Type Department Care Team (Late st Contact Info) Description 04/12/2025 7:30 AM EDT Hospital Encounter [facility] Operating Room 1 [place] [address] Bill Graham MD [address] [facility] [address] [place] [address] 04/12/2025 7:30 AM EDT Anesthesia Event [facility] Operating Room 1 [place] [address] Lucio Szymanski MD [address] [place] [address] 04/12/2025 7:30 AM EDT - 04/12/2025 8:55 AM EDT Surgery [facility] Operating Room 1 [place] [address] [place] [address] [place] [address] [address] [place] [address] (LAPAROSCOPIC PERITONEAL DIALYSIS CATHETER INSERTION) Scheduled Procedures Name Priority Associated Diagnoses Date/Ti me LAPAROSCOPY, WITH PERITONEAL DIALYSIS CATHETER INSERTION Chronic kidney disease, stage V (HCC) 04/12/2025 7:30 AM EDT documented as of this encounter Visit Diagnoses Not on filedocumented in this encounter Care Teams Oracle Soa Consultant Relationship Specialty Start Date End Date Félix Monroe, TELEVISION SPECIALIST [address] [facility] [address] [place] [address] PCP - General Nurse Practitioner 08/25/22 documented as of this encounter
--- OUTSIDE RECORDS SUMMARY | 2025-04-11 11:10 | XMS_ITS | Encounter Summary ---
Author Organization [employer] ([place], [place], [place], [place]) Address [address] [address] Care Team Providers Care Imaging Aide Name Role Phone Félix Monroe APRN Primary Care Provider [phone] Encounter Details Date Type Department Care Team (Late st Contact Info) Description 10/22/2019 Transcribed Document [facility] [place] Family Medicine [address] [place] [address] ProviderMaria Estehr MD [address] [place] [address] Social History Tobacco Use Types Packs/Day Years Used Date Smoking Tobacco: Never Assessed Comments Unknown Sex and Gender Information Value Date Recorded Sex Assigned at Not on file Legal Sex Female 6:53 PM CDT Gender Identity Not on file Sexual Orientation Not on file documented as of this encounter Miscellaneous Notes * Cerner Conversion Note - Maria Esther ProviderMD - 10/22/2019 2:00 AM CDT Outside Maintenance Worker Details Entered On: 10/22/2019 3:12 EDT Performed On: 10/22/2019 2:00 EDT by KAYLEE PADGETT RN Order Details Transport Mode Order Detail : Portable Isolation Precautions Order Detail : Standard Precautions Order Detail : 0 IV Order Detail : 0 Oxygen Order Detail : 0 Nurse Collect Order Detail : 0 Lift/Transfer : Minimal Central Line Order Detail : No Room Service : Appropriate Arterial Line : No KAYLEE PADGETT RN - 10/22/2019 3:12 EDT documented in this encounter Plan of Treatment Upcoming Encounters Date Type Department Care Team (Late st Contact Info) Description 04/12/2025 7:30 AM EDT Hospital Encounter [facility] Operating Room 1 [place] [address] Bill Graham MD [address] [facility] [address] [place] [address] 04/12/2025 7:30 AM EDT Anesthesia Event [facility] Operating Room 1 [place] [address] Lucio Szymanski MD [address] [place] [address] 04/12/2025 7:30 AM EDT - 04/12/2025 8:55 AM EDT Surgery [facility] Operating Room 1 [place] [address] Bill Graham MD [address] [place] [address] [place] [address] (LAPAROSCOPIC PERITONEAL DIALYSIS CATHETER INSERTION) Scheduled Procedures Name Priority Associated Diagnoses Date/Ti me LAPAROSCOPY, WITH PERITONEAL DIALYSIS CATHETER INSERTION Chronic kidney disease, stage V (HCC) 04/12/2025 7:30 AM EDT documented as of this encounter Visit Diagnoses Not on filedocumented in this encounter Care Teams Imaging Aide Relationship Specialty Start Date End Date Félix Monroe, SECURITY SYSTEM INSTALLER [address] [facility] [address] [place] [address] PCP - General Nurse Practitioner 08/25/22 documented as of this encounter
--- OUTSIDE RECORDS SUMMARY | 2025-04-11 11:10 | XMS_ITS | Encounter Summary ---
Author Organization [employer] ([place], [place], [place], [place]) Address [address] [place] [address] Care Team Providers Care Personalized Living Manager Nurse Name Role Phone Monroe Félix Francisco RODRIGUEZ Primary Care Provider [phone] Encounter Details Date Type Department Care Team (Late st Contact Info) Description 10/22/[address] [facility] [place] Family Medicine [address] [place] [address] ProviderMaria Esther MD [address], [place] [id number] Social History Tobacco Use Types Packs/Day Years Used Date Smoking Tobacco: Never Assessed Comments Unknown Sex and Gender Information Value Date Recorded Sex Assigned at Not on file Legal Sex Female 6:53 PM CDT Gender Identity Not on file Sexual Orientation Not on file documented as of this encounter Miscellaneous Notes * Cerner Conversion Note - Maria Esther Reyes MD - 10/22/2019 11:29 AM CDT Patient Education Materials Follows: Vitamin K Foods and Warfarin Warfarin is [...] before making changes. ??? Work with a security assurance specialist (dietitian) to develop a meal plan that works best for you. High vitamin K foods Foods that are high in vitamin K contain more than 100 mcg (micrograms) per serving. These include: ??? Broccoli (cooked) ? ? cup has 110 mcg. ??? [place] sprouts (cooked) ? ? cup has 109 [...] ? ? cup has 444 mcg. ??? Swazi chard (cooked) ? ? cup has 287 [...] ? ? cup has 11 mcg. ??? [place] with peel (raw) ? ? cup has 9 mcg. ??? Grapes ? ? cup has 12 mcg. ??? [place] ? 1 medium has 9 mcg. ??? [...] poultry. ??? Milk and dairy products. ??? Ida seeds. Actual amounts of vitamin K in foods may be different depending on processing. Talk with your dietitian about what foods you can eat and what foods you should avoid. This information is not intended to replace advice given to you by your health care provider. Make sure you discuss any questions you have with your health care provider. Document Released: 04/25/2010 Document Revised: 01/17/2017 Document Reviewed: 09/30/2016 [employer] Interactive Patient Education ? 2019 [employer] What You Need to Know About Warfarin Warfarin is a blood thinner (anticoagulant). Anticoagulants help to prevent the formation of blood clots. They also help to stop the growth of blood clots. Who should use warfarin? Warfarin is prescribed for people who are at risk for developing harmful blood clots, such as people who have: ??? Surgically implanted mechanical heart valves. ??? Irregular heart rhythms (atrial fibrillation). ??? Certain clotting disorders. ??? A history of harmful blood clotting in the past. This includes people who have had: ? A stroke. ? Blood clot in the lungs (pulmonary embolism, or PE). ? Blood clot in the legs (deep vein thrombosis, or DVT). ??? An existing blood clot. How is warfarin taken? Warfarin is a medicine that you take by mouth (orally). Warfarin tablets come in different strengths. Each tablet strength is a different color, with the amount of warfarin printed on the tablet. If you get a new prescription filled and the color of your tablet is different than usual, tell your pharmacist or health care provider immediately. What blood tests do I need while taking warfarin? The goal of warfarin therapy is to lessen the clotting tendency of blood, but not to prevent clotting completely. Your health care provider will monitor the anticoagulation effect of warfarin closely and will adjust your dose as needed. Warfarin is a medicine that needs to be closely monitored, so it is very important to keep all lab visits and follow-up visits with your health care provider. While taking warfarin, you will need to have blood tests (prothrombin tests, or PT tests) regularly to measure your blood clotting time. This type of test can be done with a finger stick or a blood draw. What does the INR test result mean? The PT test results will be reported as the International Normalized Ratio (INR). The INR tells your health care provider whether your dosage of warfarin needs to be changed. The longer it takes your blood to clot, the higher the INR. Your health care provider will tell you your target INR range. If your INR is not in your target range, your health care provider may adjust your dosage. ??? If your INR is above your target range, there is a risk of bleeding. Your dosage of warfarin may need to be decreased. ??? If your INR is below your target range, there is a risk of clotting. Your dosage of warfarin may need to be increased. How often is the INR test needed? When you first start warfarin, you will usually have your INR checked every few days. ??? You may need to have INR tests done more than once a week until you are taking the correct dosage of warfarin. ??? After you have reached your target INR, your INR will be tested less often. However, you will need to have your INR checked at least once every 4?6 weeks for the entire time you are taking warfarin. What are the side effects of warfarin? Too much warfarin can cause bleeding (hemorrhage) in any part of the body, such as: ??? Bleeding from the gums. ??? Unexplained bruises. ??? Bruises that get larger. ??? Blood in the urine. ??? Bloody or dark stools. ??? Bleeding in the brain (hemorrhagic stroke). ??? A nosebleed that is not easily stopped. ??? Coughing up blood. ??? Vomiting blood. Warfarin use may also cause: ??? Skin rash or irritations ??? Nausea that does not go away. ??? Severe pain in the back or joints. ??? Painful toes that turn blue or purple (purple toe syndrome). ??? Painful ulcers that do not go away (skin necrosis). What are the signs and symptoms of a blood clot? Too little warfarin can increase the risk of blood clots in your legs, lungs, or arms. Signs and symptoms of a DVT in your leg or arm may include: ??? Pain or swelling in your leg or arm. ??? Skin that is red or warm to the touch on your arm or leg. Signs and symptoms of a pulmonary embolism may include: ??? Shortness of breath or difficulty breathing. ??? Chest pain. ??? Unexplained fever. What are the signs and symptoms of a stroke? If you are taking too much or too little warfarin, you can have a stroke. Signs and symptoms of a stroke may include: ??? Weakness or numbness of your face, arm, or leg, especially on one side of your body. ??? Confusion or trouble thinking clearly. ??? Difficulty seeing with one or both eyes. ??? Difficulty walking or moving your arms or legs. ??? Dizziness. ??? Loss of balance or coordination. ??? Trouble speaking, trouble understanding speech, or both (aphasia). ??? Sudden, severe headache with no known cause. ??? Partial or total loss of consciousness. What precautions do I need to take while using warfarin? Take warfarin exactly as told by your health care provider. Doing this helps you avoid bleeding or blood clots that could result in serious injury, pain, or disability. ??? Take your medicine at the same time every day. If you forget to take your dose of warfarin, take it as soon as you remember that day. If you do not remember on that day, do not take an extra dose the next day. ??? Contact your health care provider if you miss or take an extra dose. Do not change your dosage on your own to make up for missed or extra doses. ??? Wear or carry identification that says that you are taking warfarin. ??? Make sure that all health care providers, including your dentist, know you are taking warfarin. ??? If you need surgery, talk with your health care provider about whether you should stop taking warfarin before your surgery. ??? Avoid situations that cause bleeding. You may bleed more easily while taking warfarin. To limit bleeding, take the following actions: ? Use a softer toothbrush. ? Floss with waxed floss, not unwaxed floss. ? Shave with an electric razor, not with a blade. ? Limit your use of sharp objects. ? Avoid potentially harmful activities, such as contact sports. What do I need to know about warfarin and or ? Warfarin is not recommended during the first trimester of due to an increased risk of defects. In certain situations, a woman may take warfarin after her first trimester of . ??? If you are taking warfarin and you become or plan to become , contact your health care provider right away. ??? If you plan to breastfeed while taking warfarin, talk with your health care provider first. What do I need to know about warfarin and alcohol or drug use? Avoid drinking alcohol, or limit alcohol intake to no more than 1 drink a day for non women and 2 drinks a day for men. One drink equals 12 oz of beer, 5 oz of wine, or 1? oz of hard liquor. ? If you change the amount of alcohol that you drink, tell your health care provider. Your warfarin dosage may need to be changed. ??? Avoid tobacco products, such as cigarettes, chewing tobacco, and e-cigarettes. If you need help quitting, ask your health care provider. ? If you change the amount of nicotine or tobacco that you use, tell your health care provider. Your warfarin dosage may need to be changed. ??? Avoid street drugs while taking warfarin. The effects of street drugs on warfarin are not known. What do I need to know about warfarin and other medicines or supplements? Many prescription and yart-bvm-gpmlgnl medicines can interfere with warfarin. Talk with your health care provider or your pharmacist before starting or stopping any new medicines. This includes mydm-mxu-ppsnqth vitamins, dietary supplements, herbal medicines, and pain medicines. Your warfarin dosage may need to be adjusted. ??? Some common xgfh-mqh-jjllkuj medicines that may increase the risk of bleeding while taking warfarin include: ? Acetaminophen. ? Aspirin. ? NSAIDs, such as ibuprofen or naproxen. ? Vitamin E. What do I need to know about warfarin and my diet? It is important to maintain a normal, balanced diet while taking warfarin. Avoid major changes in your diet. If you are going to change your diet, talk with your health care provider before making changes. ??? Your health care provider may recommend that you work with a diet and security assurance specialist (dietitian). ??? Vitamin K decreases the effect of warfarin, and it is found in many foods. Eat a consistent amount of foods that contain vitamin K. For example, you may decide to eat 2 vitamin K-containing foods each day. Most foods that are high in vitamin K are green and leafy. Common foods that contain high amounts of vitamin K include: ??? Kale, raw or cooked. ??? Spinach, raw or cooked. ??? Collards, raw or cooked. ??? [place] chard, raw or cooked. ??? Mustard greens, raw or cooked. ??? Turnip greens, raw or cooked. ??? Parsley, raw. ??? Broccoli, cooked. ??? Noodles, eggs, and spinach, enriched. ??? [place] sprouts, raw or cooked. ??? Beet greens, raw or cooked. ??? Endive, raw. ??? Cabbage, cooked. ??? Asparagus, cooked. Foods that contain moderate amounts of vitamin K include: ??? Broccoli, raw. ??? Cabbage, raw. ??? Bok volodymyr, cooked. ??? Green leaf lettuce, raw ??? Prunes, stewed. ??? Pickles. ??? Kiwi. ??? Edamame, cooked. ??? Baljinder lettuce, raw. ??? Avocado. ??? Tuna, canned in oil. ??? Okra, cooked. ??? Black-eyed peas, cooked. ??? Green beans, cooked or raw. ??? Blueberries, raw. ??? Blackberries, raw. ??? Peas, cooked or raw. Contact a health care provider if: ??? You miss a dose. ??? You take an extra dose. ??? You plan to have any kind of surgery or procedure. ??? You are unable to take your medicine due to nausea, vomiting, or diarrhea. ??? You have any major changes in your diet or you plan to make any major changes in your diet. ??? You start or stop any wgkn-zvg-omfleci medicine, prescription medicine, or dietary supplement. ??? You become , plan to become , or think you may be . ??? You have menstrual periods that are heavier than usual. ??? You have unusual bruising. Get help right away if: ??? You develop symptoms of an allergic reaction, such as: ? Swelling of the lips, face, tongue, mouth, or throat. ? Rash. ? Itching. ? Itchy, red, swollen areas of skin (hives). ? Trouble breathing. ? Chest tightness. ??? You have: ? Signs or symptoms of a stroke. ? Signs or symptoms of a blood clot. ? A fall or have an accident, [...] follow-up visits with your health care provider. ??? Make sure that you know your target INR range and your warfarin dosage. ??? Wear or carry identification that says that you are taking warfarin. ??? Take warfarin at the same time every day. Call your health care provider if you miss a dose or if you take an extra dose. Do not change the dosage of warfarin on your own. ??? Know the signs and symptoms of blood clots, bleeding, and a stroke. Know when to get emergency medical help. ??? Tell all health care providers who care for you that you are taking warfarin. ??? Talk with your health care provider or your pharmacist before starting or stopping any new medicines. ??? Monitor how much vitamin K you eat every day. Try to eat the same amount every day. This information is not intended to replace advice given to you by your health care provider. Make sure you discuss any questions you have with your health care provider. Document Released: 06/28/2006 Document Revised: 11/01/2017 Document Reviewed: 09/23/2016 [employer] Interactive Patient Education ? 2019 [employer] Nephrology Chronic Kidney Disease, Adult Chronic [...] age 60. ??? Are female. ??? Are -[place], , , , or . ??? Are [...] these instructions at home: Medicines ??? Take wpwl-enr-ewnwdpn and prescription medicines only as told by [...] important. Where to find more information ??? [place] [employer]: www.aakp.org ??? National Kidney Foundation: www.kidney.org ??? [place] [employer]: www.akfinc.org ??? [facility] [...] care provider. Document Released: 04/06/2009 Document Revised: 08/05/2017 Document Reviewed: 08/05/2017 [employer] Interactive Patient Education ? 2019 [employer] Procedures Mitral Valve Replacement, Care After This sheet gives you information about how to care for yourself after your procedure. Your health care provider may also give you more specific instructions. If you have problems or questions, contact your health care provider. What can I expect after the procedure? After the procedure, it is common to have pain at the incision area. This may last for several weeks. Follow these instructions at home: Incision care ??? Follow instructions from your health care provider about how to take care of your incision. Make sure you: ? Wash your hands with soap and water before and after you change your bandage (dressing). If soap and water are not available, use hand toll operator. ? Change your dressing as told by [...] for signs of infection. Check for: ? Redness, swelling, or pain. ? Fluid or blood. ? Warmth. ? Pus or a bad smell. ??? Do not apply powder or lotion to the area. Bathing ??? Do not take baths, swim, or use a hot tub until your health care provider approves. Ask your health care provider if you may take showers. You may only be allowed to take sponge baths. ??? To wash the incision site, gently wash with soap and water and pat the area dry with a clean towel. Do not rub the incision area. That may cause bleeding. Activity ??? Rest as told by your health care provider. ??? Avoid sitting for a long time without moving, and avoid crossing your legs. Get up to take short walks every 1?2 hours. This is important to improve blood flow and breathing. Ask for help if you feel weak or unsteady. ??? Return to your normal activities as told by your health care provider. Ask your health care provider what activities are safe for you. ??? Avoid the following activities for 6?8 weeks, or as long as directed: ? Lifting anything that is heavier than 10 lb (4.5 kg), or the limit that you are told. ? Pushing or pulling things with your arms. ??? Avoid climbing stairs and using the handrail to pull yourself up for the first 2?3 weeks after surgery. ??? Avoid airplane travel for 4?6 weeks, or as long as directed. ??? If you are taking blood thinners (anticoagulants), avoid activities that have a high risk of injury. Ask your health care provider what activities are safe for you. Medicines ??? Take zkqu-vmy-hgluyna and prescription medicines only as told by your health care provider. ??? If you are taking blood thinners: ? Talk with your health care provider before you take any medicines that contain aspirin or NSAIDs. These medicines increase your risk for dangerous bleeding. ? Take your medicine exactly as told, at the same time every day. ? Avoid activities that could cause injury or bruising. ? Follow instructions about how to prevent falls. ? Wear a medical alert bracelet or carry a card that lists what medicines you take. ??? Ask your health care provider if the medicine prescribed to you: ? Requires you to avoid driving or using heavy machinery. ? Can cause constipation. You may need to take actions to prevent or treat constipation, such as: ? Drink enough fluid to keep your urine pale yellow. ? Take fctr-prz-nivbhfh or prescription medicines. ? Eat foods that are high in fiber, such as beans, whole grains, and fresh fruits and vegetables. ? Limit foods that are high in fat and processed sugars, such as fried or sweet foods. General instructions ??? Take your temperature every day and weigh yourself every morning for the first 7 days after surgery. Write your temperatures and weight down and take this record with you to any follow-up visits. ??? Wear compression stockings as told by your health care provider. These stockings may help to prevent blood clots and reduce swelling in your legs. You may be asked to wear these stockings for at least 2 weeks after your procedure. If your ankles are swollen after 2 weeks, contact your health care provider to see if you should continue to wear the stockings. ??? Follow instructions from your health care provider about eating or drinking restrictions. ??? Do not drink alcohol until your health care provider approves. ??? Do not drive until your health care provider approves. ??? Do not use any products that contain nicotine or tobacco, such as cigarettes, e-cigarettes, and chewing tobacco. If you need help quitting, ask your health care provider. ??? Keep all follow-up visits as told by your health care provider. This is important. Contact a health care provider if: ??? You develop a skin rash. ??? Your weight is increasing each day over 2?3 days. ??? You gain 2 lb (1 kg) or more in a single day. Get help right away if: ??? You develop chest pain that feels different from the pain caused by your incision. ??? You develop shortness of breath or difficulty breathing. ??? You have a fever. ??? You have redness, swelling, or pain around your incision. ??? You have fluid or blood coming from your incision. ??? Your incision feels warm to the touch. ??? You have pus or a bad smell coming from your incision. ??? You feel light-headed. Summary ??? After the procedure, it is common to have pain at the incision area. This may last for several weeks. ??? Take your temperature every day and weigh yourself every morning for the first 7 days after surgery. ??? Check your incision area every day for signs of infection. ??? Keep all follow-up visits as told by your health care provider. This is important. This information is not intended to replace advice given to you by your health care provider. Make sure you discuss any questions you have with your health care provider. Document Released: 01/15/2006 Document Revised: 03/21/2019 Document Reviewed: 03/21/2019 [employer] Interactive Patient Education ? 2019 [employer] Mitral Valve Replacement Mitral valve replacement is surgery to replace the mitral valve with an artificial (prosthetic) valve. You may need this procedure if your mitral valve is too damaged to repair, such as from rheumatic disease. Three types of prosthetic valves are available: ??? Mechanical valves made entirely from prosthetic materials. ??? Donor valves from human cadavers. These are used only in certain situations. ??? Biological valves made from animal tissues. There are two types of mitral valve replacement surgeries: ??? Traditional mitral valve replacement surgery. This is done with a large incision in the chest. ??? Minimally invasive mitral valve replacement surgery. This is done with a smaller incision in the chest. You and your surgeon will decide which type of valve is best for you and which type of surgery you will have. Tell a health care provider about: ??? Any allergies you have. ??? All medicines you are taking, including vitamins, herbs, eye drops, creams, and ymip-imc-nkooham medicines. ??? Any problems you or family members have had with anesthetic medicine. ??? Any blood disorders you have. ??? Any surgeries you have had. ??? Any medical conditions you have. ??? Whether you are or may be . What are the risks? Generally, this is a safe procedure. However, problems may occur, including: ??? Infection of the new valve. ??? Bleeding. ??? Allergic reactions to medicines. ??? Damage to other structures or organs. ??? Heart rhythm problems. ??? Blood clotting caused by the new valve. Replacement with a mechanical valve requires lifelong treatment with medicine to prevent blood clots. ??? Valve failure. What happens before the procedure? Medicines ??? Ask your health care provider about: ? Changing or stopping your regular medicines. This is especially important if you are taking diabetes medicines or blood thinners. ? Taking medicines such as aspirin and ibuprofen. These medicines can thin your blood. Do not take these medicines unless your health care provider tells you to take them. ? Taking lnbd-uim-umdzhrn medicines, vitamins, herbs, and supplements. Staying hydrated Follow instructions from your health [...] procedure ? stop eating heavy meals or foods, such as meat, fried foods, or fatty foods. ??? 6 hours before the procedure ? stop eating light meals or foods, such as toast or cereal. ??? 6 hours before the procedure ? stop drinking milk or drinks that contain milk. ??? 2 hours before the procedure ? stop drinking clear liquids. General instructions ??? Do not use any products that contain nicotine or tobacco for at least 4 weeks before the procedure. These products include cigarettes, e-cigarettes, and chewing tobacco. If you need help quitting, ask your health care provider. ??? Ask your health care provider: ? How your surgical site will be marked or identified. ? What steps will be taken to help prevent infection. These may include: ? Removing hair at the surgery site. ? Washing skin with a germ-killing soap. ? Taking antibiotic medicine. ??? You may be asked to shower with a germ-killing soap. ??? You may have tests, such as: ? A test that records electrical activity in the heart (electrocardiogram, or ECG). ? A test that creates ultrasound images of the heart that allow your health care provider to see how the heart valves work while your heart is beating (echocardiogram). ??? You may have a blood or urine sample taken. ??? Plan to have someone take you home from the hospital or clinic. What happens during the procedure? An IV will be inserted into one of your veins. ??? You will be given a medicine to make you fall asleep (general anesthetic). ??? A tube will be placed in your throat. This tube is attached to a machine that will help you breathe and give you oxygen during the procedure. ??? A thin, flexible tube (catheter) will be inserted to help drain your urine. ??? You will be placed on a machine that provides oxygen to your blood while the heart is undergoing surgery (heart-lung bypass machine). ??? If you are having traditional surgery, a large incision will be made in your chest. If you are having minimally invasive surgery, a smaller incision will be made in your chest. ??? Your heart may be cooled to slow or stop the heartbeat. ??? Your damaged mitral valve will be removed, and the prosthetic valve will be sewn into place. ??? Your incisions will be closed. This may be done using stitches (sutures), maria eugenia, skin glue, or adhesive strips. ??? A bandage (dressing) may be placed over your incisions. The procedure may vary among health care providers and hospitals. What happens after the procedure? Your blood pressure, heart rate, breathing rate, and blood oxygen level will be monitored until you leave the hospital or clinic. ??? You may have some chest pain. You will be given pain medicine as needed. ??? If you had a mechanical valve placed, you will be given medicines to thin your blood to prevent blood clots. ??? You may need to be in the intensive care unit (ICU) to be closely monitored after your surgery. ??? You will still have the urinary catheter in place. It will likely be removed the day after surgery. ??? You will be encouraged to walk as soon as possible. You will also use a device or do breathing exercises to keep your lungs clear. ??? As you recover, you will be moved to a regular hospital room. ??? You may have to wear compression stockings. These stockings help to prevent blood clots and reduce swelling in your legs. Summary ??? Mitral valve replacement is a surgery to replace a damaged mitral valve with an artificial (prosthetic) valve. ??? Three types of prosthetic valves are available. ??? You may need this procedure if your mitral valve is too damaged to repair, such as from rheumatic disease. ??? Follow instructions from your health care provider about eating and drinking before the procedure. This information is not intended to replace advice given to you by your health care provider. Make sure you discuss any questions you have with your health care provider. Document Released: 10/29/2005 Document Revised: 03/21/2019 Document Reviewed: 03/21/2019 [employer] Interactive Patient Education ? 2019 [email or web address]. Electronically signed by Evaristo Loyola Conversion Assistant Warehouse Manager Cerner at 10/28/2022 7:04 PM CDT documented in this encounter Plan of Treatment Upcoming Encounters Date Type Department Care Team (Late st Contact Info) Description 04/12/2025 7:30 AM EDT Hospital Encounter [facility] Operating Room 1 [place] [address] Bill Graham MD [address] [place] [address] 04/12/2025 7:30 AM EDT Anesthesia Event [facility] Operating Room 1 [place] [address] Lucio Szymanski MD [address] [place] [address] 04/12/2025 7:30 AM EDT - 04/12/2025 8:55 AM EDT Surgery [facility] Operating Room 1 [place] [address] Bill Graham MD [address] [place] [address] (LAPAROSCOPIC PERITONEAL DIALYSIS CATHETER INSERTION) Scheduled Procedures Name Priority Associated Diagnoses Date/Ti me LAPAROSCOPY, WITH PERITONEAL DIALYSIS CATHETER INSERTION Chronic kidney disease, stage V (HCC) 04/12/2025 7:30 AM EDT documented as of this encounter Visit Diagnoses Not on filedocumented in this encounter Care Teams Personalized Living Manager Nurse Relationship Specialty Start Date End Date Félix Monroe, MARKETING CONTENT MANAGER [address] [facility] [address] [place] [address] PCP - General Nurse Practitioner 08/25/22 documented as of this encounter
--- OUTSIDE RECORDS SUMMARY | 2025-04-11 11:10 | XMS_ITS | Encounter Summary ---
Author Organization [employer] ([place], [place], [place], [place]) Address [address] [address] Care Team Providers Care Glass Tube Bender Name Role Phone Fer Félix Francisco RODRIGUEZ Primary Care Provider [phone] Encounter Details Date Type Department Care Team (Late st Contact Info) Description 10/22/2019 Transcribed Document [facility] Family Medicine [address] [place] [address] ProviderMaria Esther MD [address] [place] [address] Social History Tobacco Use Types [...] - Maria Esther Reyes MD - 10/22/2019 12:36 PM CDT [facility] [place], [place] [id number] AWAIS SMITH :1970 Visit Time:10/11/2019 Your Visit Summary Your Care Team Admitting Physician - ANA BLAS MD-FAM Attending Physician - ANA BLAS MD-FAM Referring Physician - ZOE AGUILERA (REF)ZULEMAINT Your Diagnosis Chronic renal failure, stage 4 (severe) Chronic systolic, valvular congestive heart failure, NYHA class 3 COPD (chronic obstructive pulmonary disease) History of NSTEMI (non-ST elevated myocardial infarction) History of Obesity S/P Lap band surgery and BMI is now 20.4 History of Sleep apnea History of TIA (transient ischemic attack) Marijuana daily smoker Nicotine dependence in remission since Aug 2019 Restless leg syndrome Severe GERD (gastroesophageal reflux disease) Severe mitral regurgitation Systemic hypertension Discharge Vitals Temperature 36.5 ??C Heart Rate (Monitored) 100 Blood Pressure 143/97 What to do next Instructions From Your Care Team STOP taking the following medications: 1. Norvasc (amlodipine) 2. Coreg (carvedilol) Discharge Activity: Discharge Activity: Activity as tolerated Diet: Discharge Diet: Resume usual diet as tolerated Follow-Up Appointments Follow Up with RONAN BOWSER When 10/24/2019 01:30 PM EDT Comments Pt states that she received call from Dr. Bowser Office that she has appt on at 1:30p to receive procrit; she wiill also have INR at that appt. Where: [address] [place] [phone]- Business (1) Follow Up with ALESHA EMERY When Within 2 weeks Comments Call for follow up appointment Call for follow up appointment Where: [address] [facility] [address] [place] [id number]- Business (1) Follow Up with LEONARDO MADISON When Within 6 weeks Comments Call for follow up appointment Where: [address] [facility] [address] [place] [address]- Business (1) Follow Up with SHAWANDA LUIS When In 1 month Comments Call for follow up appointment Where: [address] [facility] [address] [place] [address]- Business (1) Follow Up with [facility] When Within 6 weeks Where: [address] [place] [address]- Follow Up with WINSTON GREEN MD-INT When Within 5 to 7 days Where: [address] [facility] [place] [place] [address] [place] [address]- Warfarin Instructions Indication for Warfarin Anticoagulation: Heart valve replacement, bioprosthetic, Heart valve replacement, mechanical Warfarin Anticoagulation Disposition: Initiated this hospitalization Target INR: 2.0- 3.0 INR to be Drawn on: 10/24/19 INR to be Drawn at: Dr Ronan Bowser Office [phone] Notify Provider of Signs/Symptoms of: Significant bleeding Warfarin Dose/Frequency: You got 0.5mg today. You will see Dr Bowser on WednesdayOctober 23 to INR drawn. Goal is to take coumadin Tuesdays and Saturdays Medications What How Much When Instructions Next Dose acetaminophen-oxyCODONE (Percocet 5/ 325 oral tablet) 1 Tablet(s) Oral Every 4 Hours as needed for Pain (Moderate 4-6) as needed hydrALAZINE (hydrALAZINE 25 mg oral tablet) 1 Tablet(s) Oral Two Times A Day Printed Prescription 10/21 methylPREDNISolone (Medrol Dosepak 4 mg oral tablet) 1 Packet(s) Oral Every Day Duration: 6 Day(s) as directed on package labeling Printed Prescription see package NIFEdipine (Procardia XL 60 mg oral tablet, extended release) 1 Tablet(s) Oral Every Day Duration: 30 Day(s) Printed Prescription 10/22 warfarin (Coumadin 1 mg oral tablet) 0.5 Tablet(s) Oral Wednesday, Wednesday Duration: 30 Day(s) Refills: 1 0.5mg PO on Wednesday and Wednesday. INR goal 2-3. Printed Prescription 10/[address] Bowser pantoprazole (Protonix 40 mg oral delayed release tablet) 1 Tablet(s) Oral Every Day 10/22 aspirin (aspirin 81 mg oral delayed release tablet) 1 Tablet(s) Oral Every Day 10/22 nicotine (nicotine 21 mg/ 24 hr transdermal film, extended release) 1 Patch(es) TransDermal Every Day 10/22 rOPINIRole (rOPINIRole 1 mg oral tablet) 1 Tablet(s) Oral At Bedtime 10/21 Take your medications faithfully. Do NOT skip [...] This Visit No Immunizations Found Education Materials Vitamin K Foods and Warfarin Warfarin is [...] before making changes. ??? Work with a business applications specialist (dietitian) to develop a meal plan that works best for you. High vitamin K foods Foods that are high in vitamin K contain more than 100 mcg (micrograms) per serving. These include: ??? Broccoli (cooked) ? cup has 110 mcg. ??? [place] sprouts (cooked) ? cup has 109 mcg. [...] (cooked) ? cup has 444 mcg. ??? Guamanian chard (cooked) ? cup has 287 mcg. [...] (raw) ? cup has 11 mcg. ??? [place] with peel (raw) ? cup has 9 mcg. ??? Grapes ? cup has 12 mcg. ??? [place] ??? 1 medium has 9 mcg. ??? [...] poultry. ??? Milk and dairy products. ??? [place] seeds. Actual amounts of vitamin K in [...] 04/25/2010 Document Revised: 01/17/2017 Document Reviewed: 09/30/2016 b5media Interactive Patient Education ?? 2019 [employer]media Inc. What You Need to Know About [...] your INR checked at least once every 4???6 weeks for [...] or 1?? oz of hard liquor. ? If you [...] other medicines or supplements? Many prescription and yghp-fod-pfsoatl medicines can interfere with warfarin. Talk with your health care provider or your pharmacist before starting or stopping any new medicines. This includes khor-prr-qhbjvcf vitamins, dietary supplements, herbal medicines, and pain medicines. Your warfarin dosage may need to be adjusted. ??? Some common xhmu-akb-lcejbye medicines that may increase the risk of [...] that you work with a diet and business applications specialist (dietitian). ??? Vitamin K decreases the [...] cooked. ??? Collards, raw or cooked. ??? Guamanian chard, raw or cooked. ??? Mustard greens, raw or cooked. ??? Turnip greens, raw or cooked. ??? Parsley, raw. ??? Broccoli, cooked. ??? Noodles, eggs, and spinach, enriched. ??? [place] sprouts, raw or cooked. ??? Beet greens, [...] diet. ??? You start or stop any vtbn-yqj-gqyfvyd medicine, prescription medicine, or dietary supplement. ??? [...] 06/28/2006 Document Revised: 11/01/2017 Document Reviewed: 09/23/2016 b5media Interactive Patient Education ?? 2019 [employer]. Mitral Valve Replacement, Care After This sheet [...] and water are not available, use hand process assistant. ? Change your dressing as told by [...] Get up to take short walks every 1???2 hours. This is important to improve blood flow and breathing. Ask for help if you feel weak or unsteady. ??? Return to your normal activities as told by your health care provider. Ask your health care provider what activities are safe for you. ??? Avoid the following activities for 6???8 weeks, or as long as directed: ? Lifting anything that is heavier than 10 lb (4.5 kg), or the limit that you are told. ? Pushing or pulling things with your arms. ??? Avoid climbing stairs and using the handrail to pull yourself up for the first 2???3 weeks after surgery. ??? Avoid airplane travel for 4???6 weeks, or as long as directed. ??? If you are taking blood thinners (anticoagulants), avoid activities that have a high risk of injury. Ask your health care provider what activities are safe for you. Medicines ??? Take fdfu-mms-klczxmb and prescription medicines only as told by [...] keep your urine pale yellow. ? Take mruu-hsj-hvdamge or prescription medicines. ? Eat foods that [...] Your weight is increasing each day over 2???3 days. ??? You gain 2 lb (1 [...] 01/15/2006 Document Revised: 03/21/2019 Document Reviewed: 03/21/2019 b5media Interactive Patient Education ?? 2019 [employer]. Mitral Valve Replacement Mitral valve replacement [...] including vitamins, herbs, eye drops, creams, and kbhe-vlv-cndkmdn medicines. ??? Any problems you or family [...] tells you to take them. ? Taking uhwv-vjc-ljrupxh medicines, vitamins, herbs, and supplements. Staying hydrated [...] procedure ??? stop eating heavy meals or foods, such as meat, fried foods, or fatty foods. ??? 6 hours before the procedure ??? stop eating light meals or foods, such as toast or cereal. ??? 6 hours before the procedure ??? stop drinking milk or drinks that contain milk. ??? 2 hours before the procedure ??? [...] 10/29/2005 Document Revised: 03/21/2019 Document Reviewed: 03/21/2019 b5media Interactive Patient Education ?? 2019 [employer] Inc. Chronic Kidney Disease, Adult Chronic kidney disease [...] age 60. ??? Are female. ??? Are -[place], , , , or . ??? Are [...] these instructions at home: Medicines ??? Take cejs-ija-haxmvbd and prescription medicines only as told by [...] important. Where to find more information ??? [place] Association of Kidney Patients: www.aakp.org ??? National Kidney Foundation: www.kidney.org ??? [place] Kidney Fund: www.akfinc.org ??? [facility] [...] 04/06/2009 Document Revised: 08/05/2017 Document Reviewed: 08/05/2017 b5media Interactive Patient Education ?? 2019 [employer]. Emergency Awareness and Preventative Care STROKE is [...] Assistance with quitting is available by contacting 2-686-GPGR-NOW. This is a free resource providing counseling, [...] This Visit (last charted value for your 10/11/2019 visit) Blood Gases 10/16/2019 5:18 PM HCO3 Art: 24.8 mmol/L -- Normal range between ( 20.0 and 26.0 ) sO2 Art: 99.8 % -- Normal range between ( 95.0 and 100.0 ) pCO2 Art: 40.5 mmHg -- Normal range between ( 35.0 and 45.0 ) pH Art: 7.40 -- Normal range between ( 7.35 and 7.45 ) pO2 Art: 137.0 mmHg -- Normal range between ( 80.0 and 100.0 ) ABG Num of Draw Attempts: 1 Acceptable Ilir's Test Art: Non-Applicable BE Art: .0 mmol/L FIO2 Art: 40 Pressure Support Art: 8.0 cmH2O Delivery Device Type Art: Ventilator Respiratory Rate Art: 20.0 tHb Art: 9.0 Gram/dL -- Normal range between ( 12.0 and 18.0 ) Ventilator Mode Art: spont Temperature, F Art: 98.6 Deg F CPAP/PEEP Art: 5.0 cmH2O ctO2: 12.6 mmol/L FHHb: <2.4 % Art Blood Gas (ABG) Site: Arterial Line 10/16/2019 4:44 PM Set Rate Art: 14.0 Tidal Volume Set Art: 450.0 mL 10/16/2019 1:17 PM pO2 Art POC: 444.0 mmHg -- Normal range between ( 80.0 and 105.0 ) BE Art POC: -5.0 mmol/L HCO3 Art POC: 20.8 mmol/L -- Normal range between ( 22.0 and 26.0 ) pH Art POC: 7.330 -- Normal range between ( 7.350 and 7.450 ) sO2 Art POC: >99.9 % -- Normal range between ( 95.0 and 98.0 ) tCO2 Art POC: 22.0 mmol/L -- Normal range between ( 23.0 and 27.0 ) pCO2 Art POC: 39.5 mmHg -- Normal range between ( 35.0 and 45.0 ) Hematology 10/22/2019 2:58 AM WBC: 8.6 K/uL -- Normal range between ( 4.5 and 10.5 ) RBC: 2.72 Million/uL -- Normal range between ( 3.93 and 5.22 ) Hct: 25.8 % -- Normal range between ( 34.1 and 44.9 ) Hgb: 8.4 g/dL -- Normal range between ( 11.2 and 15.7 ) Platelet Count: 215 K/uL -- Normal range between ( 163 and 369 ) MCH: 30.9 pg -- Normal range between ( 25.6 and 32.2 ) MCHC: 32.6 Gram/dL -- Normal range between ( 32.2 and 36.5 ) MCV: 94.9 fL -- Normal range between ( 79.0 and 94.8 ) Eos %: 0.0 % -- Normal range between ( 0.0 and 7.0 ) Ferry #: 0.25 K/uL -- Normal range between ( 0.16 and 1.00 ) Eos #: 0.00 x10(3)/uL -- Normal range between ( 0.00 and 0.80 ) Ferry %: 2.9 % -- Normal range between ( 3.0 and 9.0 ) Baso %: 0.1 % -- Normal range between ( 0.0 and 1.5 ) Schistocytes: occ Hypochromia: 2+ RBC Morphology: Abnormal Baso #: 0.01 x10(3)/uL -- Normal range between ( 0.00 and 0.20 ) Polychromasia: 1+ RDW: 19.7 % -- Normal range between ( 11.7 and 14.9 ) Neut %: 92.4 % -- Normal range between ( 34.0 and 71.0 ) Ovalocytes: 1+ Neut #: 7.96 K/uL -- Normal range between ( 1.56 and 6.13 ) Anisocytosis: 2+ Lymph %: 4.1 % -- Normal range between ( 19.3 and 53.1 ) Platelet Ct Estimate: Adequate Lymph #: 0.35 x10(3)/uL -- Normal range between ( 1.00 and 3.90 ) MPV: 12.3 fL -- Normal range between ( 9.4 and 12.4 ) Poikilocytosis: 1+ IG#: 0.04 x10(3)/uL -- Normal range between ( 0.00 and 0.05 ) IG%: 0.50 % -- Normal range between ( 0.00 and 0.60 ) 10/21/2019 4:38 AM [place] Cells: 1+ 10/20/2019 4:31 AM Slide Review: Technologist nRBC: 0.020 -- Normal range between ( 0.000 and 0.012 ) 10/17/2019 3:32 AM Acanthocytes: 1+ Microcytosis: 1+ 10/16/2019 1:17 PM Hemoglobin POC: 8.5 Gram/dL -- Normal range between ( 12.0 and 17.0 ) Hematocrit POC: 25.0 % -- Normal range between ( 38.0 and 51.0 ) 10/12/2019 3:44 AM ALYC #: 1 K/uL Band Percent Man: 2 % -- Normal range between ( 5 and 11 ) Macrocytosis: 1+ ANC #: 9 K/uL Ferry Percent Man: 4 % -- Normal range between ( 4 and 5 ) Neutrophil Percent Man: 82 % -- Normal range between ( 50 and 65 ) Blood Smear Review For Pathologist: Blood Smear Review For Pathologist Reticulocyte: 5.90 % -- Normal range between ( 0.50 and 1.70 ) Lymph Percent Man: 12 % -- Normal range between ( 24 and 44 ) Special Hematology 10/12/2019 9:44 AM Erythropoietin: 6.2 mIU/mL Urinalysis 10/13/2019 8:58 AM Ur RBC: 0-2 /HPF Urine Nitrite: Negative Urine Leukocyte Esterase: Negative Urine Appearance: Clear Urine Glucose Dipstick: Negative Urine Blood Dipstick: Large Urine Type: U CleanCatch Urine Urobilinogen Dipstick: 1.0 EU/dL Urine Protein Dipstick: 30 Ur Amorph: 2+ Ur Bacteria: 1+ Ur Squamous Epithelial Cells: 2-5 /HPF Urine Color: Yellow Ur WBC: 0-2 /HPF Urine Ketones Dipstick: Negative Ur Mucous: Trace Urine pH Dipstick: 6.0 -- Normal range between ( 6.0 and 8.0 ) Urine Bilirubin Dipstick: Negative Urine Specific Granite: 1.007 -- Normal range between ( 1.005 and 1.030 ) Microbiology 10/11/2019 9:56 PM Urine Culture: See Result 10/11/2019 4:00 PM Blood Culture: See Result Blood Bank 10/16/2019 2:01 PM FFP Product Ready: Done 10/16/2019 1:58 PM TRANSFUSED: TRANSFUSED 10/16/2019 1:25 PM Plt Product Ready: Platelet Ready # of Units: 2 10/15/2019 8:27 AM RBC Product Ready: RBC Ready 10/15/2019 8:21 AM ABO/Rh (ECHO): A POS Antibody Screen: Negative ABSC Crossmatch: Computer XM OK 10/12/2019 3:44 AM Direct Antiglobulin Poly: Negative General Chemistry 10/22/2019 2:58 AM Creatinine Level: 2.70 mg/dL -- Normal range between ( 0.55 and 1.02 ) Sodium Level: 133 mmol/L -- Normal range between ( 136 and 146 ) Potassium Level: 4.0 mmol/L -- Normal range between ( 3.5 and 5.1 ) Chloride Level: 102 mmol/L -- Normal range between ( 102 and 112 ) Carbon Dioxide Level: 23 mmol/L -- Normal range between ( 21 and 32 ) Anion Gap: 12 -- Normal range between ( 9 and 20 ) Bun/Creatinine: 11.5 -- Normal range between ( 8.0 and 20.0 ) Calcium Level: 8.2 mg/dL -- Normal range between ( 8.4 and 10.1 ) eGFR : 23 mL/min/1.73m2 eGFR NonAfrican: 19 mL/min/1.73m2 Glucose Level: 129 mg/dL -- Normal range between ( 74 and 106 ) Blood Urea Nitrogen: 31 mg/dL -- Normal range between ( 7 and 22 ) 10/19/2019 4:05 AM Bilirubin Total: 0.5 mg/dL -- Normal range between ( 0.2 and 1.2 ) A/G Ratio: 1.0 -- Normal range between ( 1.1 and 2.5 ) ALT: 16 Units/Liter -- Normal range between ( 13 and 56 ) AST: 147 Units/Liter -- Normal range between ( 5 and 37 ) Globulin: 3.0 Gram/dL -- Normal range between ( 1.5 and 4.5 ) Alk Phos: 75 Units/Liter -- Normal range between ( 27 and 136 ) Bilirubin Direct: 0.1 mg/dL -- Normal range between ( 0.0 and 0.2 ) Protein Total: 6.0 Gram/dL -- Normal range between ( 6.4 and 8.2 ) Albumin Level: 3.0 Gram/dL -- Normal range between ( 3.4 and 5.0 ) 10/18/2019 3:10 PM Glucose POC2: 126 mg/dL -- Normal range between ( 70 and 110 ) Device Comment 1: Device Comment 1 10/17/2019 3:32 AM Magnesium Level: 3.7 mg/dL -- Normal range between ( 1.5 and 2.4 ) 10/16/2019 2:24 PM Calcium Ionized: 1.24 mmol/L -- Normal range between ( 1.12 and 1.32 ) 10/16/2019 1:17 PM Sodium POC: 137 mmol/L -- Normal range between ( 138 and 146 ) Ca Ioniz POC: 1.29 mmol/L -- Normal range between ( 1.12 and 1.32 ) Potassium POC: 3.9 mmol/L -- Normal range between ( 3.5 and 4.9 ) Glucose POC: 194 mg/dL -- Normal range between ( 70 and 105 ) 10/13/2019 3:47 AM Phosphorus: 4.2 mg/dL -- Normal range between ( 2.5 and 4.9 ) 10/12/2019 3:44 AM Bilirubin Indir: 1.3 mg/dL -- Normal range between ( 0.3 and 1.0 ) 10/11/2019 5:32 PM Lipase Level: 147 Units/Liter -- Normal range between ( 73 and 393 ) 10/11/2019 5:31 PM Lactate Dehydrogenase: 2647 Units/Liter -- Normal range between ( 84 and 246 ) 10/11/2019 4:00 PM Lactic Acid Level: 1.2 mmol/L -- Normal range between ( 0.4 and 2.0 ) Cardiac Specific Markers 10/12/2019 3:44 AM Troponin I Ultra: 0.054 ng/mL -- Normal range between ( 0.015 and 0.045 ) ProBNP: 51639 pg/mL -- Normal range between ( 0 and 125 ) Coagulation 10/22/2019 2:58 AM INR: 2.1 -- Normal range between ( 0.9 and 1.1 ) PT: 21.9 Second(s) -- Normal range between ( 9.6 and 12.0 ) 10/16/2019 4:25 PM Fibrinogen Level: 216 mg/dL -- Normal range between ( 220 and 420 ) Fibrin Degradation Products: <5 ug/ml PTT: 25.7 Second(s) -- Normal range between ( 24.0 and 34.0 ) 10/16/2019 1:16 PM ACT POC: 114 Second(s) -- Normal range between ( 74 and 137 ) Endocrinology 10/13/2019 3:47 AM PTH Intact: 125.8 pg/mL -- Normal range between ( 18.4 and 80.1 ) PTH Type: Non-IntraOp 10/11/2019 5:32 PM Procalcitonin: <0.25 ng/mL -- Normal range between ( 0.00 and 2.00 ) Iron Studies 10/11/2019 5:31 PM % Iron Saturation: 22.3 % -- Normal range between ( 15.0 and 55.0 ) Ferritin Level: 271.3 ng/mL -- Normal range between ( 8.0 and 252.0 ) TIBC: 287.0 mcg/dL -- Normal range between ( 250.0 and 450.0 ) Iron Level: 64 mcg/dL -- Normal range between ( 50 and 170 ) Immuno Serology 10/14/2019 3:16 AM Watts/Lambda FLC Ratio: 2.48 Ig mg/dL Lambda F.0 Watts F.4 Electronically signed by [facility] Conversion Minesweeping Officer Cerner at 10/28/2022 7:25 PM CDT documented in this encounter Plan of Treatment Upcoming Encounters Date Type Department Care Team (Late st Contact Info) Description 04/12/2025 7:30 AM EDT Hospital Encounter [facility] Operating Room 1 [place] [id number] [place] [address] [place] [address] [address] [place] [address] 04/12/2025 7:30 AM EDT Anesthesia Event [facility] Operating Room [address] [place] [phone] Lucio Szymanski MD [address] [place] [address] 04/12/2025 7:30 AM EDT - 04/12/2025 8:55 AM EDT Surgery [facility] Operating Room 1 [place] [phone] Bill Graham MD [address] [facility] [address] [place] [address] (LAPAROSCOPIC PERITONEAL DIALYSIS CATHETER INSERTION) Scheduled Procedures Name Priority Associated Diagnoses Date/Ti me LAPAROSCOPY, WITH PERITONEAL DIALYSIS CATHETER INSERTION Chronic kidney disease, stage V (HCC) 04/12/2025 7:30 AM EDT documented as of this encounter Visit Diagnoses Not on filedocumented in this encounter Care Teams Glass Tube Bender Relationship Specialty Start Date End Date Félix Monroe, TIRE BLADDER MAKER [address] [facility] [address] [place] [address] PCP - General Nurse Practitioner 08/25/22 documented as of this encounter
--- OUTSIDE RECORDS SUMMARY | 2025-04-11 11:10 | XMS_ITS | Encounter Summary ---
Author Organization [employer] ([place], [place], [place], [place]) Address [address] [place] [address] Care Team Providers Care Background Investigator Name Role Phone Félix oMnroe APRN Primary Care Provider [phone] Encounter Details Date Type Department Care Team (Late st Contact Info) Description 10/22/2019 Transcribed Document [facility] [place] Family Medicine [address] [place] [address] ProviderMaria Esther MD [address] [place] [address] Social History Tobacco Use Types Packs/Day Years Used Date Smoking Tobacco: Never Assessed Comments Unknown Sex and Gender Information Value Date Recorded Sex Assigned at Not on file Legal Sex Female 6:53 PM CDT Gender Identity Not on file Sexual Orientation Not on file documented as of this encounter Miscellaneous Notes * Cerner Conversion Note - Maria Esther ProviderMD - 10/22/2019 5:00 AM CDT Chart Check - Review Order Profile Entered On: 10/22/2019 6:28 EDT Performed On: 10/22/2019 5:00 EDT by KAYLEE PADGETT RN Chart Check Powerplans Initiated/Discontinued as Appropriate : Yes All Active Orders Reviewed : Yes KAYLEE PADGETT RN - 10/22/2019 6:28 EDT Electronically signed by [facility] Conversion Financial Assistance Specialist Cerner at 10/28/2022 7:04 PM CDT documented in this encounter Plan of Treatment Upcoming Encounters Date Type Department Care Team (Late st Contact Info) Description 04/12/2025 7:30 AM EDT Hospital Encounter [facility] Operating Room [address] [place] [address] Bill Graham MD [address] [facility] [address] [place] [address] 04/12/2025 7:30 AM EDT Anesthesia Event [facility] Operating Room [address] [place] [address] Lucio Szymanski MD [address] [place] [address] 04/12/2025 7:30 AM EDT - 04/12/2025 8:55 AM EDT Surgery [facility] Operating Room [address] [place] [address] [place] [address] [place] [address] (LAPAROSCOPIC PERITONEAL DIALYSIS CATHETER INSERTION) Scheduled Procedures Name Priority Associated Diagnoses Date/Ti me LAPAROSCOPY, WITH PERITONEAL DIALYSIS CATHETER INSERTION Chronic kidney disease, stage V (HCC) 04/12/2025 7:30 AM EDT documented as of this encounter Visit Diagnoses Not on filedocumented in this encounter Care Teams Background Investigator Relationship Specialty Start Date End Date Félix Monroe, SOCK LINING EXAMINER [address] [facility] [address] [place] [address] PCP - General Nurse Practitioner 08/25/22 documented as of this encounter
--- OUTSIDE RECORDS SUMMARY | 2025-04-11 11:10 | XMS_ITS | Encounter Summary ---
Author Organization [employer] ([place], [place], [place], [place]) Address [address] [address] Care Team Providers Care Dark Room Attendant Name Role Phone Félix Monroe APRN Primary Care Provider [phone] Encounter Details Date Type Department Care Team (Late st Contact Info) Description 10/07/2020 Transcribed Document [facility] [facility] [place] [address] ProviderMaria Esther MD [address] [place] [id number] Social History Tobacco Use Types Packs/Day Years Used Date Smoking Tobacco: Never Assessed Comments Unknown Sex and Gender Information Value Date Recorded Sex Assigned at Not on file Legal Sex Female 6:53 PM CDT Gender Identity Not on file Sexual Orientation Not on file documented as of this encounter Miscellaneous Notes * Cerner Conversion Note - Maria Esther Reyes MD - 10/07/2020 12:43 PM CDT Patient: CORRIE SMITH Age: 50 Years Sex: Female : 1970 Chief Complaint SOA, tachypnea Primary Care Provider BRENT NOT LISTED History of Present Illness Ms. Smith is a 50-year-old woman with a past medical history of chronic CHF, COPD with ongoing tobacco abuse, history of obesity status post lap band surgery, hypertension, severe mitral regurgitation status post mitral valve replacement and subsequent repair in 2019, history of prolonged QT syndrome, and stage IV chronic kidney disease who was transferred to [facility] today from the [place] ER for an episode of shortness of [...] When she arrived to the ED in [place], her oxygen saturation was stable but she [...] was her cardiothoracic surgeon and Dr. Mac Lockett is her general community engagement coordinator. Hospitalist is asked to admit. Review of Systems Swelling in her back, dyspnea on exertion, increased shortness of breath and fatigue as described per HPI. Denies peripheral edema, chest pain, orthopnea - comfortable laying flat at present. Spouse notes that the patient has a hard time breathing when she is asleep and she has had a sleep study previously but this was over a decade ago and they have not had any follow-up for this. They also note no recent follow-up for bariatric surgery as her surgeon out of [place] has either moved or retired and they are in need of a new provider for routine follow-ups. A comprehensive review of systems is otherwise negative except as per HPI. Vital Signs SpO2: 97% WT: 61.36 kg Oxygen Settings (Last) Oxygen Therapy Mode: Nasal cannula (10/07/20 12:00:00) Oxygen Flow Rate: 2 Liter/Min (10/07/20 12:00:00) Physical Exam General: Chronically ill appearing adult [...] daily in the setting of CKD4 - Updated echo while here given history of VHD - CT surgery and cardiology notified of admission - Continue supportive care w/ nebs, oxygen - Resume home meds CAD s/p angioplasty - Aware, angioplasty with Dr. Valdez 2019 - Resume home meds, update echo as above - CT surgery consulted to follow peripherally MVR s/p replacement and repair - Aware, MVR replacement and subsequent repair with Dr. Valdez 2019 - Resume home meds, update echo as above - INR subtherapeutic, resume home dose 5 mg and consult pharmacy for mgmt - CT surgery consulted to follow peripherally CKD4 - Cr at baseline, no change since last inpatient stay - Diuretics as above, daily labs to follow - Consult nephrology as indicated COPD - Aware, not in acute exacerbation - With positive rhinovirus on respiratory PCR - Supportive care with nebs, oxygen - Smoking cessation Hypertension - Resume home meds w/ parameters [...] SCDs Code Status: Full Code Emergency Contact: SpouseBola Shortness of breath, Shortness of breath Orders: acetaminophen, 650 mg, Oral, Tab, Q4H, PRN for Pain (Mild 1-3), Routine, Start 10/07/20 12:35:00 EDT, 10/07/20 12:35:00 EDT acetaminophen, 650 mg, Oral, Tab, Q4H, PRN for Fever, Routine, Start 10/07/20 12:35:00 EDT, 10/07/20 12:35:00 EDT albuterol-ipratropium, 3 mL, Nebulized Inhalation, Inh, RT_Q6H, PRN for Shortness of Breath, Routine, Start 10/07/20 12:35:00 EDT bumetanide, 1 mg, IV Push, Inj, BID, Routine, Start 10/07/20 12:41:00 EDT, 10/07/20 12:41:00 EDT calcium gluconate, 2 Gram, IV Piggyback, Inj, Daily, PRN for Other (See Comment), Routine, Start 10/07/20 12:42:00 EDT, 10/07/20 12:42:00 EDT calcium gluconate, 2 Gram, IV Piggyback, Inj, Q12H, PRN for Other (See Comment), Routine, Start 10/07/20 12:42:00 EDT, 10/07/20 12:42:00 EDT calcium gluconate, 1 Gram 10 mL, IV Piggyback, Inj, Daily, PRN for Other (See Comment), Routine, Start 10/07/20 12:42:00 EDT, 60 mL/Hr, Infuse Over: 60 Minute(s), 10/07/20 12:42:00 EDT docusate, 100 mg, Oral, Cap, BID, Routine, Start 10/07/20 12:35:00 EDT, 10/07/20 12:35:00 EDT magnesium sulfate, 2 Gram, IV Piggyback, Inj, Q2H, PRN for Other (See Comment), Routine, Start 10/07/20 12:42:00 EDT, 10/07/20 12:42:00 EDT magnesium sulfate, 2 Gram, IV Piggyback, Inj, Daily, PRN for Other (See Comment), Routine, Start 10/07/20 12:42:00 EDT, 10/07/20 12:42:00 EDT nicotine, 1 Patch, TransDermal, Patch, Daily, PRN for Withdrawal Symptoms, Routine, Start 10/07/20 12:35:00 EDT ondansetron, 4 mg, IV Push, Inj, Q4H, PRN for Nausea, Routine, Start 10/07/20 12:35:00 EDT, 10/07/20 12:35:00 EDT polyethylene glycol 3350, 17 Gram, Oral, Powder, Daily, PRN for Constipation, Routine, Start 10/07/20 12:35:00 EDT potassium chloride, 10 mEq 50 mL, IV Piggyback, Inj, Q1H, PRN for Other (See Comment), Routine, Start 10/07/20 12:42:00 EDT, 50 mL/Hr, Infuse Over: 1 Hour(s), 10/07/20 12:42:00 EDT potassium chloride, 20 mEq, Oral, ER Tab, Q2H, PRN for Other (See Comment), Routine, Start 10/07/20 12:42:00 EDT, 10/07/20 12:42:00 EDT potassium chloride, 60 mEq, Oral, ER Tab, Q2H, PRN for Other (See Comment), Routine, Start 10/07/20 12:42:00 EDT, 10/07/20 12:42:00 EDT promethazine, 6.25 mg, IntraVENous, Inj, Q6H, PRN for Nausea, Routine, Start 10/07/20 12:35:00 EDT, 10/07/20 12:35:00 EDT sodium phosphate, 15 mMole 5 mL, IV Piggyback, Inj, Daily, PRN for Other (See Comment), Routine, Start 10/07/20 12:42:00 EDT, 50 mL/Hr, Infuse Over: 5 Hour(s), 10/07/20 12:42:00 EDT sodium phosphate, 15 mMole 5 mL, IV Piggyback, Inj, Q6H, PRN for Other (See Comment), Routine, Start 10/07/20 12:42:00 EDT, 50 mL/Hr, Infuse Over: 5 Hour(s), 10/07/20 12:42:00 EDT BMP Basic Metabolic Panel CBC no Diff (Hemogram) CBC w/ Auto Diff CMP Comprehensive Metabolic Panel Consult to Case Management Consult to Pharmacist Warfarin Consult to Physician Consult to Physician CR Chest 2 Vws Diabetes Education (Nursing) Diet, Adult DVT VTE Prophylaxis Education EC Echo Complete Facility Protocol Lab Order Instructions to Nursing Lab Order Instructions to Nursing Lab Order Instructions to Nursing Lab Order Instructions to Nursing Magnesium Level Notify Provider Intake and Output Notify Provider Laboratory Results Notify Provider of Change in Patient Condition Notify Provider of Change in Patient Condition Notify Provider Vital Signs OT Evaluation and Treatment Oxygen Therapy PT Evaluation and Treatment PT/INR Prothrombin Time Pulse Oximetry Continuous Monitoring Respiratory Care Assessment Resuscitation Status Sequential Compression Device Smoking Cessation Education (Nursing) T4 Free TSH Thyroid Stimulating Hormone Up Ad Chery Vital Signs VTE Prophylaxis - Medical Sequential Compression Device Start: 10/07/20 12:35:00 EDT, Bilateral, Length: Knee High, While patient is in bed, Continuous Order (CHRISTIANO SYED) Problem List/Past Medical History Ongoing At risk for sleep apnea CHF, acute [...] Stage 4 Sleep apnea-before weight loss surgery Historical No qualifying data Procedure/Surgical History ULTRASONOGRAPHY OF PERICARDIUM (10/21/2019), INSERTION OF ENDOTRACHEAL AIRWAY INTO TRACHEA, VIA OPENING (10/16/2019), REMOVAL OF INTRALUMINAL DEVICE FROM HEART, OPEN APPROACH (10/16/2019), REPLACEMENT OF MITRAL VALVE WITH SYNTH SUB, OPEN APPROACH (10/16/2019), RESPIRATORY VENTILATION, LESS THAN 24 CONSECUTIVE HOURS (10/16/2019), ULTRASONOGRAPHY OF HEART WITH AORTA, TRANSESOPHAGEAL (10/16/2019), ULTRASONOGRAPHY OF HEART WITH AORTA (10/12/2019), ULTRASONOGRAPHY OF HEART WITH AORTA, TRANSESOPHAGEAL (10/12/2019), INTRODUCTION OF INFLUENZA VACCINE INTO MUSCLE, PERC APPROACH (09/04/2019), EXCISION OF LEFT ATRIAL APPENDAGE, OPEN APPROACH (08/29/2019), PERFORMANCE OF CARDIAC OUTPUT, CONTINUOUS (08/29/2019), SUPPLEMENT MITRAL VALVE WITH SYNTH SUB, OPEN APPROACH (08/29/2019), ULTRASONOGRAPHY OF HEART WITH AORTA, TRANSESOPHAGEAL (08/29/2019), FLUOROSCOPY OF LEFT HEART USING LOW OSMOLAR CONTRAST (07/21/2019), FLUOROSCOPY OF MULT COR ART USING L OSM CONTRAST (07/21/2019), MEASURE CARDIAC SAMPL & PRESSURE, BILATERAL, PERC (07/21/2019), ULTRASONOGRAPHY OF HEART WITH AORTA (07/21/2019), lap band (2008), ACL Repair right and left knees, bladder tack/sling, hysterectomy. Home Medications (8) Active aspirin 81 mg [...] 5 mg oral tablet , Oral, Daily Allergies codeine (Nausea, Hives, Welts) Social History [...] Status. Never Smokeless Tobacco Status. Family History Significant for ESRD in her mother. Diagnostic Results TTE procedure: Echo-Limited Echo. Patient Status: Routine IP Study Location: [facility] Quality: Adequate visualization Indications:Pericarditis and s/p Mitral Valve Repair/ring. Allergies - Codeine. Impression: S/P MVR Mild) mitral regurgitation. Visually estimated ejection fraction 40% +/- 5%. Right ventricle appears restrictied/constricted by pericardium. Remnant small circumferential pericardial effusion; thickened pericardium. Pleural effusion noted in apical 4 chamber. [1] Additional Documentation From OSH: EKG with sinus tach progressing to NSR on repeat Na 140, K 4.0, Cl 103, CO2 27, BUN 24, Cr 2.5, Ca 8.8, Glucose 135 TP 7.1, Albumin 3.2, AST 12, ALT 19, Alk phos 101 WBC 11.1, Hg 11.4, Hct 35.1, Plt 192 Lactate 1.3 INR 1.2 Procal 0.06 UA unremarkable DDimer 1.75 Troponin 0.129 CrP 9.2 ESR 46 LDH 225 Respiratory PCR: positive for Rhinovirus, covid negative CXR: Increase interstitial markings and slight prominence of pulmonary vasculature, correlate with current status. Code Status Start: 10/07/20 12:35:00 EDT, Full Code, Continuous Order [1] [facility]; NEISHA GUEVARA MD-CAR 10/21/2019 14:17 EDT Electronically signed by [facility] Conversion Sexual Assault Nurse Cerner at 10/28/2022 7:02 PM CDT documented in this encounter Plan of Treatment Upcoming Encounters Date Type Department Care Team (Late st Contact Info) Description 04/12/2025 7:30 AM EDT Hospital Encounter [facility] Operating Room [address] [place] [id number] [place] [address] [place] [address] [address] [place] [address] 04/12/2025 7:30 AM EDT Anesthesia Event [facility] Operating Room [address] [place] [phone] Lucio Szymanski MD [address] [place] [address] 04/12/2025 7:30 AM EDT - 04/12/2025 8:55 AM EDT Surgery [facility] Operating Room [address] [place] [address] Bill Graham MD [address] [facility] [address] [place] [address] (LAPAROSCOPIC PERITONEAL DIALYSIS CATHETER INSERTION) Scheduled Procedures Name Priority Associated Diagnoses Date/Ti me LAPAROSCOPY, WITH PERITONEAL DIALYSIS CATHETER INSERTION Chronic kidney disease, stage V (HCC) 04/12/2025 7:30 AM EDT documented as of this encounter Visit Diagnoses Not on filedocumented in this encounter Care Teams Dark Room Attendant Relationship Specialty Start Date End Date Félix Monroe, SENIOR PROGRAM PLANNER [address] [facility] [address] [place] [address] PCP - General Nurse Practitioner 08/25/22 documented as of this encounter
--- OUTSIDE RECORDS SUMMARY | 2025-04-11 11:10 | XMS_ITS | Encounter Summary ---
Author Organization [employer] ([place], [place], [place], [place]) Address [address] [place] [address] Care Team Providers Care Perforator Operator Name Role Phone MonroeRamosie Francisco RODRIGUEZ Primary Care Provider [phone] Encounter Details Date Type Department Care Team (Late st Contact Info) Description 10/22/2019 Transcribed Document [facility] [place] Family Medicine [facility] [place] [address] ProviderMaria Esther MD [address] [place] [address] Social History Tobacco Use Types Packs/Day Years Used Date Smoking Tobacco: Never Assessed Comments Unknown Sex and Gender Information Value Date Recorded Sex Assigned at Not on file Legal Sex Female 6:53 PM CDT Gender Identity Not on file Sexual Orientation Not on file documented as of this encounter Miscellaneous Notes * Cerner Conversion Note - Maria Esther Reyes MD - 10/22/2019 11:10 AM CDT Final Discharge Planning Entered On: 10/22/2019 11:13 EDT Performed On: 10/22/2019 11:10 EDT by TAYLOR BRYANT Investigation Clerk Final Discharge Planning Discharge Arrangements : Patient Post-Acute Information Patient Name: CORRIE SMITH Gender: Female : [birth year] Age: 49 Years No Post-Acute Placement(s) Listed No Post-Acute Service(s) Listed No [place] Referral(s) Listed Patient Offered Choice/Affiliations Explained : No Transportation Needs : Car Follow Up Appointment Scheduled : No (Comment: Appt in place for Wednesday10/24/[address] Bowser for INR management and Procrit injection. All other appointments to be arranged via [facility] due to weekend discharge. [ATYLOR BRYANT Investigation Clerk - 10/22/2019 11:10 EDT] ) Is Patient High/Moderate Readmission Risk? : Yes Moderate Readmission Risk - Home, no home health : Make post-discharge physician appointment within 5-7 days of discharge. Patient/Family Notified of Plan : Yes Is Patient Ready for Discharge? : Yes Physician Notified Patient is Ready for Discharge? : Yes Discharge To Care Management : Home/Residential/Shelter or Self Care -01 TAYLOR BRYANT Social Worker - 10/22/2019 11:10 EDT Final Narrative Note Final Narrative Note : Admission day 11, on room air, INR=2.1, patient to discharge home today, family to transport and assist with care as needed. INR to be checked on 10/24/[address] Bowser. Pt, RN aware and in agreement with plan. TAYLOR BRYANT Social Worker - 10/22/2019 11:10 EDT documented in this encounter Plan of Treatment Upcoming Encounters Date Type Department Care Team (Late st Contact Info) Description 04/12/2025 7:30 AM EDT Hospital Encounter [facility] Operating Room [address] [place] [address] Bill Graham MD [address] [place] [address] [address] 04/12/2025 7:30 AM EDT Anesthesia Event [facility] Operating Room [address] [place] [address] Lucio Szymanski MD [address] [place] [address] 04/12/2025 7:30 AM EDT - 04/12/2025 8:55 AM EDT Surgery [facility] Operating Room [address] [place] [address] Bill Graham MD [address] [facility] [address] [place], [place] [id number] (LAPAROSCOPIC PERITONEAL DIALYSIS CATHETER INSERTION) Scheduled Procedures Name Priority Associated Diagnoses Date/Ti me LAPAROSCOPY, WITH PERITONEAL DIALYSIS CATHETER INSERTION Chronic kidney disease, stage V (HCC) 04/12/2025 7:30 AM EDT documented as of this encounter Visit Diagnoses Not on filedocumented in this encounter Care Teams Perforator Operator Relationship Specialty Start Date End Date Félix Monroe, BOOK AGENT [address] [facility] [address] [place] [address] PCP - General Nurse Practitioner 08/25/22 documented as of this encounter
--- OUTSIDE RECORDS SUMMARY | 2025-04-11 11:11 | XMS_ITS | Encounter Summary ---
Author Organization [employer] ([place], [place], [place], [place]) Address [address] [place] [address] Care Team Providers Care Process Helper Name Role Phone Fer Félix Singh MICHAEL Primary Care Provider [phone] Encounter Details Date Type Department Care Team (Late st Contact Info) Description 08/30/2019 Transcribed Document [facility] [place] [address] [place] [address] ProviderMaria Esther MD [address] [place] [address] Social History Tobacco Use Types Packs/Day Years Used Date Smoking Tobacco: Never Assessed Comments Unknown Sex and Gender Information Value Date Recorded Sex Assigned at Not on file Legal Sex Female 6:53 PM CDT Gender Identity Not on file Sexual Orientation Not on file documented as of this encounter Miscellaneous Notes * Cerner Conversion Note - Maria Esther ProviderMD - 08/30/2019 12:38 PM SIMULATION SOFTWARE ENGINEER Treatment Intervention, PT Entered On: 09/02/2019 10:54 EST Performed On: 09/02/2019 10:54 EST by MARKUS CARR, PT General Information, PT Visit Type, PT : Treatment Note Patient Orders : Order Date Order Ordering 08/29/2019 10:17 Consult to Physical Therapy Ordered By: ALESHA EMERY MD-CAT 08/30/2019 12:38 PT Additional Treatment Ordered By: QUINCY DUCKWORTH, PT Active Diagnoses : 08/30/2019 12:00 Chronic kidney [...] : impaired functional mobility s/p MVR surgery Admission Date : 08/29/2019 07:08 Personal Devices : Personal Devices No Devices Recorded Assistive Devices : Assistive Devices No Devices Recorded MARKUS CARR, PT - 09/02/2019 10:48 EST General Status Patient Received Status : Supine in bed Treatment Start Time : 09/02/2019 10:30 EST Patient Left Status : Supine in bed, RN/PCT informed, Communication board completed, All needs met and within reach RN/PCT Informed Comment : OK to see per RN and amb in jones without O2 and check O2 Treatment End Time : 09/02/2019 10:54 EST Treatment Time : 24 Minute(s) MARKUS CARR, PT - 09/02/2019 10:48 EST Intervention Summary Heart Rate/Pulse Pre-intervention : 70 bpm BP Systolic Pre-intervention : 120 mmHg BP Diastolic Pre-intervention : 79 mmHg O2 Pre-Intervention : Room Air SpO2 Pre-Intervention : 94 % Heart Rate/Pulse During Intervention : 69 bpm O2 During Intervention : Room Air SpO2 During Intervention : 88 % Therapist Assessment During Intervention : Briefly Heart Rate/Pulse Post-intervention : 71 bpm BP Systolic Post-intervention : 111 mmHg BP Diastolic Post-intervention : 73 mmHg O2 Post-Intervention : Room Air SpO2 Post-Intervention : 96 % MARKUS CARR, PT - 09/02/2019 10:48 EST Functional Mobility Mobility Grid Bed Roll Left [...] Sit to Supine : Rehab Complete independence MARKUS CARR, PT - 09/02/2019 10:48 EST Gait Training/Assessment, PT Weight Bearing Status Maintained : Yes Weight Bearing Status : Full Gait Assistance Level : Independent, modified Walking Distance : 395' Ambulatory Devices : Gait belt, Walker, front wheel Left Lower Gait Deviation : Aliyah, decreased Right Lower Gait Deviation : Aliyah, decreased MARKUS CARR, PT - 09/02/2019 10:48 EST Cognitive Treatment, PT Follows Basic Command Findings, PT : Yes MARKUS CARR, PT - 09/02/2019 10:48 EST Edu Topics Physical Therapy Education Grid Bed Mobility Training : Returns demonstration Gait Training : Returns demonstration, Needs further teaching Safety : Returns demonstration Transfer Training : Returns demonstration Use of Assistive Device : Returns demonstration MARKUS CARR, PT - 09/02/2019 10:48 EST Plan of Care, PT PT Tx Plan/Goals Established w Patient : Yes MARKUS CARR, PT - 09/02/2019 10:48 EST Short Term Goals Mobility/Bed Mobility STG PT Grid Goal #1 Goal #2 Activity : Supine to sit Sit to stand Assist : Supervision or set-up Supervision or set-up Date to Meet : 09/07/2019 EST 09/06/2019 EST Goal Status : Goal met Goal met Date Met : 09/02/2019 EST 09/01/2019 EST MARKUS CARR, PT - 09/02/2019 10:48 EST MARKUS CARR, PT - 09/02/2019 10:48 EST Ambulation STG Grid Goal #1 Device : Walker, front wheel Distance : 200' Assist : Supervision or set-up Date to Meet : 09/09/2019 EST Goal Status : Goal met Date Met : 09/01/2019 EST MARKUS CARR, PT - 09/02/2019 10:48 EST Automobile Travel Club Counselor Goals Mobility/Bed Mobility LTG PT Grid Goal #1 Goal #2 Activity : Supine to sit Sit to stand Assist : Independent, modified Independent, modified Date to Meet : 09/14/2019 EST 09/13/2019 EST Goal Status : Goal met Goal met Date Met : 09/02/2019 EST 09/02/2019 EST MARKUS CARR, PT - 09/02/2019 10:48 EST MARKUS CARR, PT - 09/02/2019 10:48 EST Ambulation LTG Grid Goal #1 Goal #2 Device : Walker, front wheel None Distance : 375' 405' Assist : Independent, modified Independent, complete Date to Meet : 09/14/2019 EST 09/14/2019 EST Goal Status : Goal met Revised Date Met : 09/02/2019 EST Comment : Revised 09/02 RK MARKUS CARR, PT - 09/02/2019 10:48 EST MARKUS CARR, PT - 09/02/2019 10:48 EST Treatment Note Subjective Comment : Agreed to PT Patient's Response to Treatment : Was slightly unsteady without RWx so used RWx this time. O2 dropped to 88% briefly while walking but stayed in 90% range most of the walk. Additional Objective Information : Amb 395' with RWx on room air Assessment : Needs work on gt without RWx Plan for Treatment : Gt Ex MARKUS CARR, PT - 09/02/2019 10:48 EST Pain Assessment Pain Scaled Used : 0-10 Pain scale Pain Score Pre-Intervention : 0 MARKUS CARR, PT - 09/02/2019 10:48 EST Image 1 - Images currently included in the form version of this document have not been included in the text rendition version of the form. Anticipated Discharge Needs, OT/PT Anticipated Discharge to : Home, with family care MARKUS CARR, PT - 09/02/2019 10:48 EST [place] [facility] Charges PT Therap. Exercise 15 min : 2 MARKUS CARR, PT - 09/02/2019 10:48 EST documented in this encounter Plan of Treatment Upcoming Encounters Date Type Department Care Team (Late st Contact Info) Description 04/12/2025 7:30 AM EDT Hospital Encounter [facility] Operating Room [address] [place] [address] Bill Graham MD [address] [place] [address] [address] [place] [id number] 04/12/2025 7:30 AM EDT Anesthesia Event [facility] Operating Room [address] [place] [address] Lucio Szymanski MD [address] [place] [address] 04/12/2025 7:30 AM EDT - 04/12/2025 8:55 AM EDT Surgery [facility] Operating Room [address] [place] [phone] [place] [address] [place] [address] [address] [place] [address] (LAPAROSCOPIC PERITONEAL DIALYSIS CATHETER INSERTION) Scheduled Procedures Name Priority Associated Diagnoses Date/Ti me LAPAROSCOPY, WITH PERITONEAL DIALYSIS CATHETER INSERTION Chronic kidney disease, stage V (HCC) 04/12/2025 7:30 AM EDT documented as of this encounter Visit Diagnoses Not on filedocumented in this encounter Care Teams Process Helper Relationship Specialty Start Date End Date Félix Monroe, HOT MILL TIN ROLLER [address] [facility] [address] [place] [address] PCP - General Nurse Practitioner 08/25/22 documented as of this encounter
--- OUTSIDE RECORDS SUMMARY | 2025-04-11 11:11 | XMS_ITS | Encounter Summary ---
Author Organization [employer] ([place], [place], [place], [place]) Address [address] [place] [address] Care Team Providers Care Compressor Repairer Name Role Phone Monroe Félix Francisco RODRIGUEZ Primary Care Provider [phone] Encounter Details Date Type Department Care Team (Late st Contact Info) Description 08/30/2019 Transcribed Document [facility] [place] [facility] [place] [address] [place] [address] ProviderMaria Esther MD [address] [place] [address] Social History Tobacco Use Types Packs/Day Years Used Date Smoking Tobacco: Never Assessed Comments Unknown Sex and Gender Information Value Date Recorded Sex Assigned at Not on file Legal Sex Female 6:53 PM CDT Gender Identity Not on file Sexual Orientation Not on file documented as of this encounter Miscellaneous Notes * Cerner Conversion Note - Maria Esther ProviderMD - 08/30/2019 8:06 AM EMERGENCY WORKER Nutrition Assessment Entered On: 08/30/2019 10:36 EST Performed On: 08/30/2019 10:36 EST by Thuy Molina Dietitian Nutrition Assessment Nutrition Assessment Reason : Automatic referral hTuy Molina Dietitian - 08/30/2019 10:35 EST Nutrition Recommendations Dietitian Recommendations : 08/30: RD consult rec'd for cardiac post-op. POD #1 MVR. Pt on cardiac diet. Intakes being established. RD noted pt had ensure enlive on her breakfast tray. Labs/meds reviewed. No skin breakdown noted. Will rescreen in 3-4 days to check on po intakes and provide diet education if appropriate. RD available prn. Nutrition Care Level : No nutritional risk Thuy Molina Dietitian - 08/30/2019 10:35 EST documented in this encounter Plan of Treatment Upcoming Encounters Date Type Department Care Team (Late st Contact Info) Description 04/12/2025 7:30 AM EDT Hospital Encounter [facility] Operating Room [address] [place] [phone] [place] [address] [place] [address] 04/12/2025 7:30 AM EDT Anesthesia Event [facility] Operating Room [address] [place] [address] Lucio Szymanski MD [address] [place] [address] 04/12/2025 7:30 AM EDT - 04/12/2025 8:55 AM EDT Surgery [facility] Operating Room [address] [place] [phone] Bill Graham MD [address] [place] [address] (LAPAROSCOPIC PERITONEAL DIALYSIS CATHETER INSERTION) Scheduled Procedures Name Priority Associated Diagnoses Date/Ti me LAPAROSCOPY, WITH PERITONEAL DIALYSIS CATHETER INSERTION Chronic kidney disease, stage V (HCC) 04/12/2025 7:30 AM EDT documented as of this encounter Visit Diagnoses Not on filedocumented in this encounter Care Teams Compressor Repairer Relationship Specialty Start Date End Date Félix Monroe, MUSIC PRODUCER [address] [facility] [address] [place], [place] [phone] PCP - General Nurse Practitioner 08/25/22 documented as of this encounter
--- OUTSIDE RECORDS SUMMARY | 2025-04-11 11:11 | XMS_ITS | Encounter Summary ---
Author Organization [employer] ([place], [place], [place], [place]) Address [address] [address] Care Team Providers Care Underwriting Internship Name Role Phone Félix Monroe APRN Primary Care Provider [phone] Encounter Details Date Type Department Care Team (Late st Contact Info) Description 08/30/2019 Transcribed Document [facility] [place] Medicine [address] [place] [address] ProviderMaria Esther MD [address] [place] [address] Social History Tobacco Use Types Packs/Day Years Used Date Smoking Tobacco: Never Assessed Comments Unknown Sex and Gender Information Value Date Recorded Sex Assigned at Not on file Legal Sex Female 6:53 PM CDT Gender Identity Not on file Sexual Orientation Not on file documented as of this encounter Miscellaneous Notes * Cerner Conversion Note - Maria Esther ProviderMD - 08/30/2019 2:00 AM MOLDER PIPE COVERING Business Performance Specialist Details Entered On: 08/30/2019 6:53 EST Performed On: 08/30/2019 2:00 EST by Ángela Castillo RN Order Details Order Detail : 0 IV Order Detail : 1 Oxygen Order Detail : 1 Nurse Collect Order Detail : 1 Lift/Transfer : Minimal Central Line Order Detail : Yes Room Service : Appropriate Arterial Line : Yes Ángela Castillo, CROW - 08/30/2019 6:52 EST Electronically signed by Nir [facility] Conversion Distribution Dispatcher Cerner at 10/28/2022 7:05 PM CDT documented in this encounter Plan of Treatment Upcoming Encounters Date Type Department Care Team (Late st Contact Info) Description 04/12/2025 7:30 AM EDT Hospital Encounter [facility] Operating Room 1 [place] [address] Bill Graham MD [address] [facility] [address] [place] [address] 04/12/2025 7:30 AM EDT Anesthesia Event [facility] Operating Room 1 [place] [address] Lucio Szymanski MD [address] [place] [address] 04/12/2025 7:30 AM EDT - 04/12/2025 8:55 AM EDT Surgery [facility] Operating Room 1 [place] [address] [place] [address] [place] [address] [address] [place] [address] (LAPAROSCOPIC PERITONEAL DIALYSIS CATHETER INSERTION) Scheduled Procedures Name Priority Associated Diagnoses Date/Ti me LAPAROSCOPY, WITH PERITONEAL DIALYSIS CATHETER INSERTION Chronic kidney disease, stage V (HCC) 04/12/2025 7:30 AM EDT documented as of this encounter Visit Diagnoses Not on filedocumented in this encounter Care Teams Underwriting Internship Relationship Specialty Start Date End Date Félix Monroe, VOCATIONAL GUIDANCE COUNSELOR [address] [facility] [address] [place] [address] PCP - General Nurse Practitioner 08/25/22 documented as of this encounter
--- OUTSIDE RECORDS SUMMARY | 2025-04-12 07:30 | XMS_ITS | Encounter Summary ---
Author Organization [employer] ([place], [place], [place], [place]) Address [address] [address] Care Team Providers Care Cloth Grader Supervisor Name Role Phone Félix Monroe MICHAEL Primary Care Provider [phone] Encounter Details Date Type Department Care Team (Late st Contact Info) Description 04/12/2025 7:30 AM EDT Anesthesia Event [facility] Operating Room 1 [place] [address] Lucio Szymanski MD [address] [place] [address] Anesthesia Record Procedure Summary Procedure Name Responsible [...] Date Josias rded Speak language other than Burkinan at home Not on file 07/30/2023 Want [...] on file documented as of this encounter OR Notes * Anesthesia Preprocedure Evaluation - Lucio Szymanski MD - 03/30/2025 10:57 AM EDT ANESTHESIA PREOPERATIVE EVALUATION Patient: Corrie Stiles Date: 04/12/25 Procedure: (LAPAROSCOPIC PERITONEAL DIALYSIS CATHETER INSERTION) (Abdomen) Location: [facility] OPERATING ROOM Surgeons: Bill Graham MD Vitals: 03/30/25 0939 BP: 116/84 Pulse: 79 Resp: 20 Temp: 97.7 ??F (36.5 ??C) SpO2: 98% Weight: 72.4 kg (159 lb 9.6 oz) Height: 1.676 m (5' 6 ) Allergies Allergen Reactions Codeine Hives and Itching Current Outpatient Medications Medication Instructions acetaminophen (TYLENOL) [...] daily PRN warfarin (COUMADIN) 4 mg, Daily@1600 INPATIENT MEDICATIONS Problem List as of 03/30/2025 Cardiovascular and Mediastinum Decompensated heart failure (HCC) Coronary artery disease involving mechoopda coronary artery Hypertension Cardiomyopathy (HCC) Respiratory Chronic obstructive pulmonary disease (HCC) Digestive Gastroesophageal reflux disease Genitourinary Hypervolemia associated with renal insufficiency ESRD (end stage renal disease) (HCC) Chronic kidney disease, stage V (HCC) Other Chronic anticoagulation Anemia, chronic disease History of laparoscopic adjustable gastric banding History of obstructive sleep apnea Mixed hyperlipidemia S/P MVR (mitral valve replacement) Presence of cardiac defibrillator Hypokalemia Ef 25% CAD -s/p RUBEN to LAD (2020) Past Surgical History: Procedure Laterality Date BLADDER SUSPENSION CARDIAC DEFIBRILLATOR PLACEMENT CARDIAC PACEMAKER PLACEMENT CORONARY ANGIOPLASTY WITH STENT PLACEMENT CREATION,A-V FISTULA Right 02/26/2023 Procedure: (RT UPPER ARM AV GRAFT); Surgeon: Gibran Melo MD; Location: [facility] OR; Service: General Surgery; Laterality: Right; IN 0900, 1 HR (A) CREATION,A-V FISTULA Right 03/01/2023 Procedure: (RT UPPER ARM AV GRAFT); Surgeon: Gibran Melo MD; Location: [facility] OR; Service: General Surgery; Laterality: Right; 1 HR AVAIL TF SELF HERNIA REPAIR HYSTERECTOMY KNEE ARTHROSCOPY Bilateral LAPAROSCOPIC GASTRIC BANDING MITRAL VALVE REPAIR MITRAL VALVE REPLACEMENT REPAIR KNEE LIGAMENT Right TRANSPOSITION,VEIN Right 09/07/2022 Procedure: (RT BRACHIOBASILIC AV FISTULA); Surgeon: Gibran Melo MD; Location: [facility] OR; Service:General Surgery; Laterality: Right; [place] 0600, 1 HR (R) Social History Tobacco Use Smoking status: Former Current packs/day: 0.00 Types: Cigarettes Quit date: 08/29/2019 Years since quittin.5 Smokeless tobacco: Never Substance Use Topics Alcohol use: Never Drug use: Yes Frequency: 3.0 times per week Types: Marijuana Echo Results (last 7 days) 02/2025 Left Ventricle: The left ventricular systolic function [...] by biplane volume is 23%. See diagram belowfor wall motion findings. Right Ventricle The right ventricle is moderately dilated. A catheter/lead is present in the right ventricle. The right ventricular systolic function is reduced. There is regional wall motion abnormalities. There isright ventricular free wall akinesis. There is right [...] a heart rate of 78 bpm. The gradientis normal for this prosthetic valve. Tricuspid Valve [...] (aortic root) diameter is 32 mm by leadingedge to leading edge method. Study Details A limited transthoracic echocardiogram using limited 2D, color flow Doppler and limited spectral Doppler imaging was performed. During the study the apical, parasternal and subcostal view was captured. Overall the study quality was adequate. Heart rate was normal. Height: 167.6 cm. Weight: 78.9 kg.BSA: 1.89 m2. The heart rhythm during this exam was most suggestive of a sinus rhythm. Unable to use Definity due to lack of IV access. Only line present had heparin running in it. Chemistry Component Value Date/Time NA 134 (L) 03/12/2023 0846 K 3.2 (L) 03/12/2023 0846 CL 101 (L) 03/12/2023 0846 CO2 26 03/12/2023 0846 BUN 64 (H) 03/12/2023 0846 CREATININE 4.02 (H) 03/12/2023 0846 Component Value Date/Time CALCIUM 8.1 (L) 03/12/2023 0846 ALKPHOS 140 (H) 03/12/2023 0846 AST 29 03/12/2023 0846 ALT 27 03/12/2023 0846 BILITOT 1.3 (H) 03/12/2023 0846 Lab Results Component Value Date WBC 8.1 03/30/2025 HGB 11.3 03/30/2025 HCT 34.9 03/30/2025 MCV 89 03/30/2025 PLT 234 03/30/2025 Clinical information reviewed: No data recorded Physical Exam Airway Mallampati: II TM distance: >3 FB Neck ROM: full Cardiovascular - normal exam (+) murmur Dental (+) edentulous Pulmonary - normal exam Neurological Abdominal Anesthesia Plan ASA 4 general Patient will be monitored via standard ASA monitoring.(Pema Icd discussed with med rep. Magnet placement will deactivate icd function but keep pacing. Magnet removal will return icd function) intravenous induction Anesthetic plan and risks discussed with patient. documented in this encounter Plan of Treatment Upcoming Encounters Date Type Department Care Team (Late st Contact Info) Description 04/12/2025 7:30 AM EDT Hospital Encounter [facility] Operating Room 1 [place] [address] Bill Graham MD [address] [place] [address] 04/12/2025 7:30 AM EDT Anesthesia Event [facility] Operating Room [address] [place] [address] Lucio Szymanski MD [address] [place] [address] 04/12/2025 7:30 AM EDT - 04/12/2025 8:55 AM EDT Surgery [facility] Operating Room [address] [place] [address] Bill Graham MD [address] [place] [address] (LAPAROSCOPIC PERITONEAL DIALYSIS CATHETER INSERTION) Scheduled Procedures Name Priority Associated Diagnoses Date/Ti me LAPAROSCOPY, WITH PERITONEAL DIALYSIS CATHETER INSERTION Chronic kidney disease, stage V (HCC) 04/12/2025 7:30 AM EDT documented as of this encounter Visit Diagnoses Not on filedocumented in this encounter Care Teams Cloth Grader Supervisor Relationship Specialty Start Date End Date Félix Monroe, DATA PROCESSING MANAGER [address] [facility] [address] [place] [address] PCP - General Nurse Practitioner 08/25/22 documented as of this encounter
--- OUTSIDE RECORDS SUMMARY | 2025-04-12 07:30 | XMS_ITS | Encounter Summary ---
Author Organization [employer] ([place], [place], [place], [place]) Address [address] [address] Care Team Providers Care Grinder Chipper Name Role Phone Félix Monroe APRN Primary Care Provider [phone] Reason for Visit * Auth/Cert (Routine) Specialty Diagnoses / Procedures Referred By Contac t Referred To Contact Diagnoses Chronic kidney disease, stage V (HCC) Chronic kidney disease, stage V (HCC) Procedures ND LAPS INSERTION TUNNELED INTRAPERITONEAL CATHETER LAPAROSCOPY, WITH PERITONEAL DIALYSIS [place] [address] [place] [address] [place] [address] Phone: tel: fax: Referral ID Status Reason Start Date Expiration Date Visits Re quested Visits Authorized [id number] 03/29/2025 1 1 Encounter Details Date Type Department Care Team (Late st Contact Info) Description 04/12/2025 7:30 AM EDT - 04/12/2025 8:55 AM EDT Surgery [facility] Operating Room [address] [place] [phone] Bill Graham MD [address] [place] [address] (LAPAROSCOPIC PERITONEAL DIALYSIS CATHETER INSERTION) Social History Tobacco Use Types Packs/Day Years [...] Date Josias rded Speak language other than Macanese at home Not on file 07/30/2023 Want [...] Description 04/12/2025 7:30 AM EDT Anesthesia Event [facility] Operating Room 1 [place] [address] Lucio Szymanski MD [address] [place], [place] [phone] 04/12/2025 7:30 AM EDT - 04/12/2025 8:55 AM EDT Surgery [facility] Operating Room 1 [place] [address] Bill Graham MD [address] [place] [address] [address] (LAPAROSCOPIC PERITONEAL DIALYSIS CATHETER INSERTION) Scheduled Procedures Name Priority Associated Diagnoses Date/Ti me LAPAROSCOPY, WITH PERITONEAL DIALYSIS CATHETER INSERTION Chronic kidney disease, stage V (HCC) 04/12/2025 7:30 AM EDT documented as of this encounter Visit Diagnoses Diagnosis Chronic kidney disease, stage V (HCC) Chronic kidney disease, Stage V documented in this encounter Admitting Diagnoses Diagnosis Chronic kidney disease, stage V (HCC) Chronic kidney disease, Stage V documented in this encounter Care Teams Grinder Chipper Relationship Specialty Start Date End Date MonroeFélix, INSIDE FINISHER [address] [facility] [address] [place] [address] PCP - General Nurse Practitioner 08/25/22 documented as of this encounter
--- OUTSIDE RECORDS SUMMARY | 2025-04-12 07:30 | XMS_ITS | Encounter Summary ---
Author Organization [employer] ([place], [place], [place], [place]) Address [address] [place] [address] Care Team Providers Care Stamping Operator Name Role Phone Félix Monroe APRN Primary Care Provider [phone] Reason for Visit * Auth/Cert (Routine) Specialty Diagnoses / Procedures Referred By Contac t Referred To Contact Diagnoses Chronic kidney disease, stage V (HCC) Chronic kidney disease, stage V (HCC) Procedures WI LAPS INSERTION TUNNELED INTRAPERITONEAL CATHETER LAPAROSCOPY, WITH PERITONEAL DIALYSIS CATHETER INSERTION Bill Graham MD [address] [facility] [address] [place] [address] Phone: tel: fax: Referral ID Status Reason Start Date Expiration Date Visits Re quested Visits Authorized [id number] 03/29/2025 1 1 Encounter Details Date Type Department Care Team (Late st Contact Info) Description 04/12/2025 7:30 AM EDT Hospital Encounter [facility] Operating Room [address] [place] [phone] Bill Graham MD [address] [facility] [address] [place] [address] Social History Tobacco Use Types Packs/Day Years [...] Date Josias rded Speak language other than [place] at home Not on file 07/30/2023 Want [...] Description 04/12/2025 7:30 AM EDT Anesthesia Event [facility] Operating Room [address] [place] [id number] Lucio Szymanski MD [address] [place] [id number] 04/12/2025 7:30 AM EDT - 04/12/2025 8:55 AM EDT Surgery [facility] Operating Room [address] [place] [phone] [place] [address] [place] [address] [address] [place] [id number] (LAPAROSCOPIC PERITONEAL DIALYSIS CATHETER INSERTION) Scheduled Procedures Name Priority Associated Diagnoses Date/Ti me LAPAROSCOPY, WITH PERITONEAL DIALYSIS CATHETER INSERTION Chronic kidney disease, stage V (HCC) 04/12/2025 7:30 AM EDT documented as of this encounter Visit Diagnoses Not on filedocumented in this encounter Admitting Diagnoses Diagnosis Chronic kidney disease, stage V (HCC) Chronic kidney disease, Stage V documented in this encounter Care Teams Stamping Operator Relationship Specialty Start Date End Date Félix Monroe, BOILERS INSPECTOR [address] [facility] [address] [place] [address] PCP - General Nurse Practitioner 08/25/22 documented as of this encounter
== END 2025-04-11 23:59 | disposition home or self-care (01) ==
LOC: RAD 10:34
PROVIDERS: PCP Nurse Practitioner Family; Visit Provider Physician Assistant
DX: M79.661 Pain in right lower leg (principal)
CPT/HCPCS: 73590